=== PATIENT | female | born 1980 | race Caucasian/White ===

== ENCOUNTER 2017-07-25 19:30 | Emergency (ER) | payer MEDICAID, SELFPAY ==
[2017-07-25 19:31] VITALS: BP 135/93; PULSE 101; RESP 18; TEMP 35.7; O2SAT 97; BMI 40.9
--- NOTE | 2017-07-25 19:37 | EKG12_ITS ---
Test Reason : CHEST PAIN Blood Pressure : / mmHG Vent. Rate : 092 BPM Atrial Rate : 092 BPM P-R Int : 142 ms QRS Dur : 088 ms QT Int : 352 ms P-R-T Axes : 006 102 049 degrees QTc Int : 435 ms Normal sinus rhythm Normal ECG Confirmed by MARCIA BURT MD ([id number]), legal editor TERRA PAIZ ([id number]) on 07/29/2017 1:04:38 PM Referred By: LUNA Confirmed By:MARCIA BURT MD
--- NOTE | 2017-07-25 20:06 | NURSING ---
EKG IN TRIAGE, PULLED OLD EKG'S FOR
--- NOTE | 2017-07-25 20:21 | ED.RN ---
PT IS NOT IN WAITING AREA, BEING MARKED LWBS.
== END 2017-07-25 20:21 | disposition left against medical advice (07) ==
LOC: ED 20:31
PROVIDERS: Emergency Provider Emergency Medicine; Family Provider Family Medicine; PCP Family Medicine
DX: R69 Illness, unspecified (principal)
CPT/HCPCS: 93005

== ENCOUNTER 2017-10-08 20:26 | Emergency (ER) | payer MEDICAID, SELFPAY ==
[2017-10-08 20:26] VITALS: BP 147/98; PULSE 108; RESP 16; TEMP 36.8; O2SAT 96; BMI 40.8
--- NOTE | 2017-10-08 20:46 | RAD_ITS ---
STUDY: X-RAY - UNILATERAL RIBS ( LEFT ) WITH CHEST REASON FOR EXAM: Female, 37 years old. Fall. Left side chest pain TECHNIQUE - RIBS: 4 view(s) of the ribs. TECHNIQUE - CHEST: Single AP portable view of the chest. COMPARISON: None. FINDINGS - RIBS: Nondisplaced fractures of the anterior aspect of the left third and fourth ribs of undetermined age. FINDINGS - CHEST: The lungs are clear and expanded. There is no demonstrated pleural abnormality. Normal size heart. Normal mediastinum and kayden. Normal visualized pulmonary arteries. Normal visualized aortic arch and descending thoracic aorta. Normal visualized thoracic spine. Normal visualized ribs, clavicles, and shoulders. There is no demonstrated abnormality of the visualized soft tissue structures of the upper abdomen. RAD/Ribs Uni Min 3V w/PA Chest IMPRESSION: RIBS: Nondisplaced fractures of the anterior aspect of the left third and fourth ribs of undetermined age. CHEST: Normal x-ray examination of the chest. Electronically Signed: Kiet Jackson MD at 22:04 EDT Tel , Service support ,
[2017-10-08] MEDS: Lidocaine 5% Patch 1 PATCH TOPICAL (20:59)
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
[2017-10-08 22:33] VITALS: BP 144/97; PULSE 93; RESP 18; O2SAT 96
--- NOTE | 2017-10-08 22:33 | ED.RN ---
INSTRUCTED PT ON USE OF INCENTIVE SPIROMETER. PT ABLE TO DEMONSTRATE CORRECT USE OF INCENTIVE SPIROMETER. REVIEWED D/C INSTRUCTIONS, FOLLOW UP CARE, PRESCRIPTION, AND S/S THAT WOULD WARRANT A RETURN TO THE ED WITH PT. PT VERBALIZED AN UNDERSTANDING AND DENIES FURTHER QUESTIONS FOR THIS RN. PT SKIN P/W/D, RESP EVEN AND UNLABORED, PT A&O X 3, NO DISTRESS NOTED. PT AMBULATED OUT OF ED, GAIT STEADY.
== END 2017-10-08 22:35 | disposition home or self-care (01) ==
PROVIDERS: Emergency Provider Emergency Medicine; Family Provider Family Medicine; PCP Family Medicine
DX: S22.42XA Multiple fractures of ribs, left side, initial encounter for closed fracture (principal); W19.XXXA Unspecified fall, initial encounter; Y93.9 Activity, unspecified; Y92.9 Unspecified place or not applicable; E66.9 Obesity, unspecified; E11.9 Type 2 diabetes mellitus without complications; I10 Essential (primary) hypertension; M79.7 Fibromyalgia; Z79.4 Long term (current) use of insulin; Z79.84 Long term (current) use of oral hypoglycemic drugs; Z79.899 Other long term (current) drug therapy; Z72.0 Tobacco use
CPT/HCPCS: 71101; 99282

== ENCOUNTER 2017-12-06 17:39 | Emergency (ER) | payer MEDICAID, SELFPAY ==
[2017-12-06 17:39] VITALS: BP 167/107; PULSE 93; RESP 16; TEMP 36.2; O2SAT 98; BMI 41.5
[2017-12-06 17:55] LABS: Bedside Glucose 337 mg/dL (70-110)
--- NOTE | 2017-12-06 18:02 | ED.VISSUMM ---
- ER Visit Summary Date of Service: 12/06/17 Chief Complaint: Hyperglycemia History of Present Illness: The patient is a 37 F who presents with weakness and fatigue that has been getting worse throughout the day. Patient states this feels similar to prior episodes of hypoglycemia. Patient does not have a glucose monitor at home to check her blood sugar. Patient admits to a frontal headache. Patient admits to subjective fevers. Patient denies any chest pain or shortness of breath. Patient denies any dysuria, hematuria, or frequency. Patient denies any nausea or vomiting. Patient denies abdominal pain. Physical Examination: Vital signs are stable except for mildly elevated blood pressure 167/107. Patient is in no acute distress. Patient is afebrile. Oral mucosa is pink and moist. Neck is supple. Trachea is midline. There is no JVD noted. Heart was regular rate and rhythm. Lungs are clear and equal bilaterally. Abdomen is soft. Bowel sounds are normal. There is no tenderness. There is no rebound or guarding noted. Cranial nerves II through XII are intact. There are no focal motor or sensory deficits noted. The remaining physical exam is within normal limits. Test Results: Initial BGT was 337. Urinalysis showed 10-25 white blood cells with a leukocyte esterase of 500. There is 0-5 trichomonas on urinalysis. CBC was normal. Serum glucose was 323. Serum ketones were negative. Emergency Department Course and Treatment: Patient was given a dose of Humalog here. Patient was given a dose of Flagyl here. Patient was given prescription for Bactrim. Patient was instructed to follow-up with her primary care physician in 5-7 days. Patient understood and was agreeable with the plan. All questions were answered. Disposition: Discharge home Impression: Urinary tract infection This note was generated with [employer] dictation software. It may contain incorrect words, spelling, and punctuation that were not noted in review of the chart prior to signing ED Disposition - Plan for ED Patient: Disposition: Home or Assisted Living Chief Complaint: Hyperglycemia Diagnosis: Urinary tract infection, Hyperglycemia, Diabetes Instructions: ED Hyperglycemia Diabetic, ED UTI Cystitis Female Prescriptions: Smz/Tmp Ds [Bactrim Ds] 1 tab PO BID #6 tab Referrals: Eldon Hernandez MD [Primary Care Provider] -
[2017-12-06 18:26] LABS: Absolute Neutrophil Count 3.4 X10^3/uL (2.0-7.7); Basophil# 0.02 X10^3/uL; Basophil% 0.3 % (0-1); Eosinophil# 0.14 X10^3/uL; Eosinophils% 2.4 % (0-5); Hematocrit 39.4 % (37-47); Hemoglobin 13.7 g/dl (12.0-15.0); Lymphocyte % 32.6 % (19-41); Mean Corp Hgb Conc 34.8 g/gl (32-36); Mean Corpuscular Hgb 31.3 pg (27.0-32.0); Mean Platelet Vol. 9.6 fl (6.2-12.0); Monocyte# 0.37 X10^3/uL; Monocyte% 6.3 % (0-10); Neutrophil % 58.4 % (47-70); Platelet Count 212 K/mm3 (150-450); RBC Distribution Width CV 13.9 % (11.6-14.6); RBC Distribution Width SD 45.1 fl (35.1-43.9); Red Blood Count 4.38 M/mm3 (4.2-5.4); White Blood Count 5.8 K/mm3 (4.4-11.0)
[2017-12-06 18:37] LABS: Anion Gap 6 (5-15); BUN 7 mg/dL (7-18); BUN/Creat Ratio 10.2 RATIO (10-20); Calcium,Total 8.6 mg/dL (8.5-10.1); Chloride 106 mmol/L (98-107); Creatinine, Serum 0.69 mg/dL (0.55-1.02); EST Glomerular Filtration Rate 102 mL/min (>60); Est Glom Filt Rate - Afr Amer 123 mL/min (>60); Estimated Creatinine Clearance 100.45 ml/min; Glucose 323 mg/dL (74-106); Potassium 3.9 mmol/L (3.5-5.1); Sodium Level 139 mmol/L (136-145)
[2017-12-06 18:42] LABS: POSITIVE COUNT NO; POSITIVE DIFFERENTIAL NO; POSITIVE MORPHOLOGY NO
[2017-12-06 18:44] LABS: Bacteria 0 SEEN /hpf (None Seen); Mucous, Urine 0 SEEN /hpf (<or=2+); Red Blood Cells-Urine 0 SEEN /hpf (0-5)
[2017-12-06 18:49] LABS: Color, Urine Straw (Yellow); Glucose, Dipstick 1000 mg/dl (Normal); Ketone-Dipstick Negative (Negative); Leukocyte Esterase-Dipstick 500 /ul (Negative); Nitrite-Dipstick Negative (Negative); Occult Blood-Urine 10 /ul (Negative); Protein-Dipstick Negative (Negative); Urine Bilirubin Dipstick Negative (Negative); Urine Clarity Cloudy (Clear); Urine Urobilinogen Normal (Normal)
[2017-12-06 19:36] LABS: Squamous Epithelial Cells - UA 0-5 SEEN /hpf (5-10)
[2017-12-06 19:40] LABS: White Blood Cells 10-25 SEEN /hpf (0-5)
[2017-12-06 19:43] LABS: Trichomonas 0-5 SEEN /hpf (None Seen)
[2017-12-06] MEDS: Insulin Lispro 100 UNIT/ML INSULN.PEN SC (20:04)
[2017-12-06 20:36] LABS: Bedside Glucose 152 mg/dL (70-110)
[2017-12-06] MEDS: metroNIDAZOLE 500 MG Tablet 2000 MG PO (20:51)
[2017-12-06 20:54] VITALS: BP 160/95; PULSE 90; RESP 16; O2SAT 99
== END 2017-12-06 20:56 | disposition home or self-care (01) ==
PROVIDERS: Emergency Provider Emergency Medicine; Family Provider Family Medicine; PCP Family Medicine
DX: N39.0 Urinary tract infection, site not specified (principal); R51 Headache; E66.9 Obesity, unspecified; E11.9 Type 2 diabetes mellitus without complications; Z79.4 Long term (current) use of insulin; Z79.84 Long term (current) use of oral hypoglycemic drugs; Z72.0 Tobacco use
CPT/HCPCS: 80048; 81001; 82009; 82962; 85025; 96372; 99284; A4216

== ENCOUNTER 2017-12-17 04:44 | Emergency (ER) | payer MEDICAID, SELFPAY ==
[2017-12-17 04:46] VITALS: BP 149/90; PULSE 107; RESP 20; TEMP 36.8; O2SAT 97; BMI 40.6
--- NOTE | 2017-12-17 05:05 | ED.DCSUM_ITS ---
- ER Visit Summary Date of Service: 12/17/17 Chief Complaint: Back pain History of Present Illness: The patient is a 37 F with history of chronic back pain who presents for 2 days of right lower back pain. 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 Since then she is developed sharp left lower back pain that is worse with laying down and improves with standing. She has tried lidocaine patches and ibuprofen without relief. Pain is constant. She denies any fever, abdominal pain, nausea or vomiting, dysuria, hematuria, bowel or bladder incontinence or retention, or any other complaints. No numbness or weakness in the arms or legs. Patient has history of fibromyalgia and was in pain management up until 6 months ago for that. She has not had issues with her chronic back pain since receiving a nerve block in 2014. Physical Examination: Vital signs: afebrile, hemodynamically stable, no hypoxia on room air General: well nourished, well developed, morbidly obese, in no distress Skin: warm, dry, no rash, no pallor HEENT: normocephalic and atraumatic; PERRL, EOMI, moist mucous membranes Cardiovascular: regular rate and rhythm without murmurs, no peripheral edema, 2 + pulses all distal extremities Respiratory: No increased work of breathing, lungs are clear to auscultation bilaterally, no rales, rhonchi or wheezing Abdominal: Abdomen is soft, nontender with normoactive bowel sounds, no guarding or rebound, no masses MSK: Moves all extremities, no deformities, normal strength, redness to the paraspinal musculature in the right lumbar region, no midline tenderness, step- offs or deformities. No skin induration, erythema or swelling. Straight leg raise negative in the sitting position. Neuro: Awake and alert, oriented ?4. No facial droop, sensation and motor function intact and symmetric Test Results: [] Emergency Department Course and Treatment: Patient has no red flag symptoms concerning for cauda equina syndrome or emergent spinal pathology. She was witnessed ambulating without difficulty. Patient was given Norflex and Toradol in the emergency department and a prescription for Flexeril and naproxen. She will not use ibuprofen while on the naproxen. She is to follow-up with her primary care doctor if she is not having improvement in 1-2 weeks. Patient agreed with this plan and was discharged home. Treatment Plan: [] Disposition: [] Impression: Acute lumbar muscle strain This note was generated with [employer] dictation software. It may contain incorrect words, spelling, and punctuation that were not noted in review of the chart prior to signing ED Disposition - Plan for ED Patient: Disposition: Home or Assisted Living Chief Complaint: Back Instructions: ED Spasm Back No Trauma, ED Sprain Strain Lumbar Prescriptions: Naproxen [Naprosyn] 500 mg PO BID PRN #20 tab Cyclobenzaprine [Flexeril] 10 mg PO TID PRN #20 tab PRN Reason: Muscle Spasm Referrals: Eldon Hernandez MD [Primary Care Provider] - 10-14 Days if not better
[2017-12-17] MEDS: Ketorolac 60 MG/2 ML Vial IM (05:15)
[2017-12-17] MEDS: Orphenadrine 60 MG/2 ML Ampul IM (05:16)
[2017-12-17 05:33] VITALS: BP 164/116; PULSE 104; RESP 18; O2SAT 96
== END 2017-12-17 05:36 | disposition home or self-care (01) ==
PROVIDERS: Emergency Provider Emergency Medicine; Family Provider Family Medicine; PCP Family Medicine
DX: S39.012A Strain of muscle, fascia and tendon of lower back, initial encounter (principal); M54.5 Low back pain; G89.29 Other chronic pain; X58.XXXA Exposure to other specified factors, initial encounter; Y93.9 Activity, unspecified; Y92.9 Unspecified place or not applicable; E66.01 Morbid (severe) obesity due to excess calories; M79.7 Fibromyalgia; Z79.84 Long term (current) use of oral hypoglycemic drugs; Z79.4 Long term (current) use of insulin; Z72.0 Tobacco use
CPT/HCPCS: 96372; 99282

== ENCOUNTER 2018-01-18 23:24 | Emergency (ER) | payer MEDICAID, SELFPAY ==
[2018-01-18 23:25] VITALS: BP 166/91; PULSE 100; RESP 20; TEMP 36.9; O2SAT 94; BMI 43.2
[2018-01-18 23:43] VITALS: O2SAT 94
--- NOTE | 2018-01-19 00:16 | ED.VISSUMM ---
- ER Visit Summary Date of Service: 01/19/18 Chief Complaint: Cold History of Present Illness: The patient is a 37 F complains of cold symptoms for the past 8 days. She can planes of congestion rhinorrhea sore throat cough diarrhea shortness of breath. She is a smoker. She states she was seen at the urgent care 5 days ago and given steroids and cough syrup but just is not improving. She states that her chest and back are sore from coughing. Physical Examination: Heart rate 100 vitals otherwise unremarkable No distress able to speak in full sentences no increased work of breathing or retractions She does have some decreased air exchange and expiratory wheezing Heart is regular rate and rhythm Abdomen soft Alert Moist mucous membranes Clear voice, no trismus Test Results: Not indicated Emergency Department Course and Treatment: Patient presents with symptoms consistent with rhinosinusitis. Given persistent symptoms for 8 days I do feel antibiotics are potentially benefit. She will be placed on azithromycin. She understands to return for new or worsening symptoms. She was instructed on specific signs and symptoms to monitor for and will otherwise follow-up with her primary care physician. Treatment Plan: [] Disposition: Discharge Impression: Acute rhinosinusitis This note was generated with [employer] dictation software. It may contain incorrect words, spelling, and punctuation that were not noted in review of the chart prior to signing ED Disposition - Plan for ED Patient: Chief Complaint: Cold Sx Referrals: Eldon Hernandez MD [Primary Care Provider] -
--- NOTE | 2018-01-19 00:19 | ED.DEP ---
ED Disposition - Plan for ED Patient: Chief Complaint: Cold Sx Instructions: ED Upper Resp Infec Abx Tx Prescriptions: Azithromycin [Zithromax Z-Greg] 250 mg PO UD #1 box Referrals: Eldon Hernandez MD [Primary Care Provider] -
[2018-01-19] MEDS: Ipratropium/Albuterol Sulfate 3 ML AMPUL.NEB INHALATION (00:23)
[2018-01-19 00:24] VITALS: PULSE 105; RESP 18
== END 2018-01-19 00:37 | disposition home or self-care (01) ==
PROVIDERS: Emergency Provider Emergency Medicine; Family Provider Family Medicine; PCP Family Medicine
DX: J01.90 Acute sinusitis, unspecified (principal); R19.7 Diarrhea, unspecified; E11.9 Type 2 diabetes mellitus without complications; Z79.4 Long term (current) use of insulin; Z79.84 Long term (current) use of oral hypoglycemic drugs; F17.200 Nicotine dependence, unspecified, uncomplicated
CPT/HCPCS: 94640; 99282

== ENCOUNTER 2018-02-01 13:26 | Emergency (ER) | payer MEDICAID, SELFPAY ==
[2018-02-01 13:27] VITALS: BP 142/91; PULSE 118; RESP 14; TEMP 36.8; O2SAT 97; BMI 42.5
[2018-02-01 13:50] LABS: Bedside Glucose 351 mg/dL (70-110)
--- NOTE | 2018-02-01 13:56 | EKG12_ITS ---
Test Reason : CP Blood Pressure : / mmHG Vent. Rate : 109 BPM Atrial Rate : 109 BPM P-R Int : 140 ms QRS Dur : 090 ms QT Int : 342 ms P-R-T Axes : 054 073 033 degrees QTc Int : 460 ms Sinus tachycardia Otherwise normal ECG Confirmed by CARMEL MALDONADO, MARCIA ([id number]), web editor TERRA PAIZ ([id number]) on 02/06/2018 3:56:52 PM Referred By: ALLY Confirmed By:MARCIA BURT MD
[2018-02-01 14:12] VITALS: BP 123/71; PULSE 105; RESP 18; O2SAT 98
[2018-02-01] MEDS: 0.9% Normal Saline 1,000 ML 1000 ML IV (14:14)
[2018-02-01 14:25] LABS: Absolute Lymphocyte Count 2.14 X10^3/ul (0.83-4.51); Absolute Neutrophil Count 4.1 X10^3/uL (2.0-7.7); Basophil# 0.02 X10^3/uL; Basophil% 0.3 % (0-1); Eosinophils% 1.5 % (0-5); Hematocrit 40.3 % (37-47); Hemoglobin 13.9 g/dl (12.0-15.0); Lymphocyte # 2.14 X10^3/ul (4.0); Lymphocyte % 31.5 % (19-41); Mean Corp Hgb Conc 34.5 g/gl (32-36); Mean Corpuscular Hgb 31.3 pg (27.0-32.0); Mean Corpuscular Volume 90.8 fL (81-99); Mean Platelet Vol. 10.3 fl (6.2-12.0); Monocyte# 0.38 X10^3/uL; Monocyte% 5.6 % (0-10); Neutrophil # 4.14 X10^3/uL (2.7-7.7); POSITIVE COUNT NO; POSITIVE DIFFERENTIAL NO; POSITIVE MORPHOLOGY NO; Platelet Count 247 K/mm3 (150-450); Red Blood Count 4.44 M/mm3 (4.2-5.4); White Blood Count 6.8 K/mm3 (4.4-11.0)
--- NOTE | 2018-02-01 14:30 | RAD_ITS ---
STUDY: X-RAY CHEST REASON FOR EXAM: Female, 37 years old. Hyperglycemia. TECHNIQUE: PA and lateral views. COMPARISON: 10/08/2017 and 05/07/2016. FINDINGS: The lungs are clear and expanded. There is no demonstrated pleural abnormality. Normal size heart. Normal mediastinum and kayden. Normal visualized pulmonary arteries. Normal visualized aortic arch and descending thoracic aorta. Old compression fractures involving T9, T10, T11, T12 and L1 vertebral bodies. Normal visualized ribs, clavicles, and shoulders. There is no demonstrated abnormality of the visualized soft tissue structures of the upper abdomen. RAD/Chest PA and Lateral IMPRESSION: 1. No acute cardiopulmonary pathology. 2. Old compression fractures involving T9 down to L1 vertebral bodies. 3. No significant interval change when compared to 09/28/2017 and 05/07/2016. Electronically Signed: Joel Campbell MD at 14:52 EDT , Service support ,
[2018-02-01 14:43] LABS: ALB/GLOB Ratio 0.7 RATIO (0.9-2.4); AST(SGOT) 30 U/L (15-37); Alanine Aminotransfer ALT/SGPT 17 U/L (13-56); Albumin, Serum 2.9 g/dL (3.2-5.0); Alkaline Phosphatase 120 U/L (45-117); Anion Gap 7 (5-15); BUN 6 mg/dL (7-18); BUN/Creat Ratio 7.9 RATIO (10-20); Calcium,Total 8.6 mg/dL (8.5-10.1); Chloride 103 mmol/L (98-107); Creatinine, Serum 0.76 mg/dL (0.55-1.02); EST Glomerular Filtration Rate 91 mL/min (>60); Est Glom Filt Rate - Afr Amer 110 mL/min (>60); Globulin 4.3 g/dL (2.2-4.2); Glucose 319 mg/dL (74-106); Potassium 4.6 mmol/L (3.5-5.1); Protein, Total 7.2 g/dL (6.4-8.2); Sodium Level 134 mmol/L (136-145)
[2018-02-01 15:15] LABS: D-Dimer Quantitative (DVT/PE) 0.42 FEU/ug/m (0.27-0.49)
[2018-02-01 15:28] LABS: Mucous, Urine 0 SEEN /hpf (<or=2+)
[2018-02-01 15:33] LABS: Color, Urine Yellow (Yellow); Glucose, Dipstick 1000 mg/dl (Normal); Ketone-Dipstick Negative (Negative); Leukocyte Esterase-Dipstick 500 /ul (Negative); Nitrite-Dipstick Negative (Negative); Occult Blood-Urine 25 /ul (Negative); Protein-Dipstick 30 mg/dl (Negative); Urine Bilirubin Dipstick Negative (Negative); Urine Clarity Sl. Cloudy (Clear); Urine Urobilinogen Normal (Normal)
[2018-02-01 15:36] LABS: White Blood Cells 0-5 SEEN /hpf (0-5)
[2018-02-01 15:56] LABS: Red Blood Cells-Urine 5-10 SEEN /hpf (0-5)
[2018-02-01 15:57] LABS: Bacteria 1+ /hpf (None Seen); Squamous Epithelial Cells - UA 5-10 SEEN /hpf (5-10)
--- NOTE | 2018-02-01 16:02 | ED.VISSUMM ---
- ER Visit Summary Date of Service: 02/01/18 Chief Complaint: Hyperglycemia History of Present Illness: The patient is a 37 F who tells me that since noon today her blood sugar has been reading high she has a headache as well as some chest heaviness and sweats. States that 2 weeks ago she had a URI. She states the chest is heavy with occasional sharpness is generalized across the anterior chest. Recently had her metformin increased to 1000 mg twice a day as well as insulin increased to 20 units at night. She tells me that her blood sugar will typically run between 80 and 100. Though she notes that her last hemoglobin A1c was greater than 10. Today for lunch at [employer] she had mozzarella sticks amongst other past food items. Physical Examination: Afebrile vital signs are stable noted heart rate in triage 118 101 of my exam Gen: Well-nourished well-developed Head: Normocephalic atraumatic Eyes: Perrl EOMI ENT: TMs clear no rhinorrhea moist mucous membranes Neck: Supple no lymphadenopathy no JVD nontender CVS: Regular rate rhythm no murmurs normal S1-S2 Respiratory: No distress clear to auscultation bilaterally chest nontender Abdomen: Soft nontender nondistended normal bowel sounds no masses Back: Nontender Extremity: Nontender no edema Skin: Normal color no rash Neuro: alert orientated ?3 CN II-XII intact normal strength sensation reflexes gait cerebellar Psych: Normal affect normal mood Test Results: EKG sinus at a rate of 109 without ectopy. CBC chemistry showed a glucose of 319. Liver showed alk phos 120. Troponin negative. D-dimer negative. Urinalysis shows slight contamination but no overt infection. Emergency Department Course and Treatment: Patient received IV fluids and she is resting comfortably. She will be discharged home to follow-up with her doctor to adhere to diabetic diet. Impression: 1. Diabetic hyperglycemia 2. Medical noncompliance 3. Chest pain This note was generated with [employer] dictation software. It may contain incorrect words, spelling, and punctuation that were not noted in review of the chart prior to signing ED Disposition - Plan for ED Patient: Disposition: Home or Assisted Living Chief Complaint: Hyperglycemia Instructions: ED Hyperglycemia Diabetic Referrals: Eldon Hernandez MD [Primary Care Provider] - As soon as possible
--- NOTE | 2018-02-01 16:05 | ED.DCSUM_ITS ---
- ER Visit Summary Date of Service: 02/01/18 Chief Complaint: Hyperglycemia History of Present Illness: The patient is a 37 F who tells me that since noon today her blood sugar has been reading high she has a headache as well as some chest heaviness and sweats. States that 2 weeks ago she had a URI. She states the chest is heavy with occasional sharpness is generalized across the anterior chest. Recently had her metformin increased to 1000 mg twice a day as well as insulin increased to 20 units at night. She tells me that her blood sugar will typically run between 80 and 100. Though she notes that her last hemoglobin A1c was greater than 10. Today for lunch at [employer] she had mozzarella sticks amongst other past food items. Physical Examination: Afebrile vital signs are stable noted heart rate in triage 118 101 of my exam Gen: Well-nourished well-developed Head: Normocephalic atraumatic Eyes: Perrl EOMI ENT: TMs clear no rhinorrhea moist mucous membranes Neck: Supple no lymphadenopathy no JVD nontender CVS: Regular rate rhythm no murmurs normal S1-S2 Respiratory: No distress clear to auscultation bilaterally chest nontender Abdomen: Soft nontender nondistended normal bowel sounds no masses Back: Nontender Extremity: Nontender no edema Skin: Normal color no rash Neuro: alert orientated ?3 CN II-XII intact normal strength sensation reflexes gait cerebellar Psych: Normal affect normal mood Test Results: EKG sinus at a rate of 109 without ectopy. CBC chemistry showed a glucose of 319. Liver showed alk phos 120. Troponin negative. D-dimer negative. Urinalysis shows slight contamination but no overt infection. Emergency Department Course and Treatment: Patient received IV fluids and she is resting comfortably. She will be discharged home to follow-up with her doctor to adhere to diabetic diet. Impression: 1. Diabetic hyperglycemia 2. Medical noncompliance 3. Chest pain This note was generated with [employer] dictation software. It may contain incorrect words, spelling, and punctuation that were not noted in review of the chart prior to signing ED Disposition - Plan for ED Patient: Disposition: Home or Assisted Living Chief Complaint: Hyperglycemia Instructions: ED Hyperglycemia Diabetic Referrals: Eldon Hernandez MD [Primary Care Provider] - As soon as possible
[2018-02-01 16:17] VITALS: BP 119/56
== END 2018-02-01 16:19 | disposition home or self-care (01) ==
PROVIDERS: Emergency Provider Emergency Medicine; Family Provider Family Medicine; PCP Family Medicine
DX: E11.65 Type 2 diabetes mellitus with hyperglycemia (principal); R07.9 Chest pain, unspecified; R51 Headache; Z72.0 Tobacco use; Z91.14 Patient's other noncompliance with medication regimen; Z79.4 Long term (current) use of insulin; Z79.84 Long term (current) use of oral hypoglycemic drugs; Z79.899 Other long term (current) drug therapy
CPT/HCPCS: 71046; 80053; 81001; 82962; 84484; 85025; 85379; 93005; 96360; 96361; 99284; J7030; A4216

== ENCOUNTER 2018-05-13 19:52 | Emergency (ER) | payer MEDICAID, SELFPAY ==
[2018-05-13 19:53] VITALS: BP 106/89; PULSE 105; RESP 18; TEMP 37.2; O2SAT 97; BMI 42.9
--- NOTE | 2018-05-13 20:15 | RAD_ITS ---
STUDY: X-RAY CHEST REASON FOR EXAM: Female, 37 years old. Cough TECHNIQUE: Frontal and lateral views of the chest. COMPARISON: None. FINDINGS: There is an ill-defined groundglass opacity in the left lung base suggesting pneumonia in the lingula. There is no demonstrated pleural abnormality. Normal size heart. Normal mediastinum and kayden. Normal visualized pulmonary arteries. Normal visualized aortic arch and descending thoracic aorta. There is an increased kyphosis of the thoracic spine. Normal visualized ribs, clavicles, and shoulders. There is no demonstrated abnormality of the visualized soft tissue structures of the upper abdomen. RAD/Chest PA and Lateral IMPRESSION: Possible pneumonia in the lingula. Electronically Signed: Kiet Jackson MD at 22:20 EST Tel , Service support ,
[2018-05-13] MEDS: guaiFENesin 10 ML UDC (200MG/10ML) PO (20:20)
[2018-05-13] MEDS: Ondansetron ODT 4 MG Tablet PO ×2 (20:20→21:22)
[2018-05-13] MEDS: Naproxen 500 MG Tablet PO (20:20)
--- NOTE | 2018-05-13 21:05 | ED.DCSUM_ITS ---
- ER Visit Summary Date of Service: 05/13/18 Chief Complaint: Sore throat, cough History of Present Illness: The patient is a 37 F who woke yesterday morning not feeling well. She developed nausea, vomiting, and diarrhea during the day. Today she has had sore throat and cough with clear sputum. Her last dose of emesis was this morning. She still has some mild diarrhea. No fever has been noted. Her children were recently ill with viral syndrome type symptoms. Physical Examination: Vital signs unremarkable. Patient's lying in bed no acute distress. Head neck examination reveals TMs to be clear bilaterally. She does have 2+ tonsils. Uvula is midline without exudate. There is mild bilateral anterior cervical lymphadenopathy. Heart is regular rate and rhythm. Lung sounds are clear. Abdomen is soft nontender. Test Results: Rapid strep is negative. Two-view chest x-ray is normal per my review. Emergency Department Course and Treatment: Patient is given Naprosyn, Zofran, and Robitussin. On repeat evaluation she is resting comfortably. I did discuss with her that her symptoms are all viral in nature and simply need to run their course. She will be given a home pack of Zofran tonight if she develops recurrent vomiting. She can use Robitussin [id number]. Treatment Plan: [] Disposition: Discharge Impression: Viral syndrome This note was generated with [employer] dictation software. It may contain incorrect words, spelling, and punctuation that were not noted in review of the chart prior to signing ED Disposition - Plan for ED Patient: Chief Complaint: Sore Throat Referrals: Eldon Hernandez MD [Primary Care Provider] -
--- NOTE | 2018-05-13 21:05 | ED.DEP ---
ED Disposition - Plan for ED Patient: Disposition: Home or Assisted Living Chief Complaint: Sore Throat Instructions: ED Viral Syndrome Referrals: Eldon Hernandez MD [Primary Care Provider] - 3-5 Days if not improving
[2018-05-13 21:23] VITALS: BP 100/67; PULSE 91; RESP 18; O2SAT 97
--- OUTSIDE RECORDS SUMMARY | 2018-07-17 10:48 | XMS RPT_ITS ---
:1980 Author Organization OHIP Care Team Providers Name Role Phone ELDON ORTIZ Attending Unavailable Sonia ORTEGA (RINKUC) Referring Unavailable Sonia ORTEGA (PABartC) Attending Unavailable Sonia ORTEGA (RINKUC) Referring Unavailable ELDON ORTIZ Attending Unavailable Sonia ORTEGA (PABartC) Referring Unavailable NELI MIKE Attending Unavailable Sonia ORTEGA (PABartC) Attending Unavailable SILVIA MENJIVAR (CUSTOM SHOEMAKER) Attending Unavailable Sonia ORTEGA (PA-C) Attending Unavailable NELI MIKE Referring Unavailable Sonia ORTEGA (MIHAELA) Attending Unavailable Sonia ORTEGA (MIHAELA) Referring Unavailable Sonia ORTEGA (MIHAELA) Attending Unavailable Sonia ORTEGA (MIHAELA) Referring Unavailable [facility] Unavailable Isadora Hughes Attending Unavailable [facility] Unavailable ELISEO CARRASCO Attending Unavailable [facility] Unavailable Jovi Casarez Attending Unavailable [facility] Unavailable Flavio Kunz Attending Unavailable [facility] Unavailable Daja Moreno Attending Unavailable Daja Moreno Referring Unavailable [facility] Unavailable Jose Vee Attending Unavailable [facility] Unavailable Mal Gomez Attending Unavailable PROBLEMS PROBLEMS DATE TYPE CONDITION / CODE ATTENDING STATUS SOURCE 03/01/2018 Active Encounter for NA Active [facility] screening for [place] infections with a Repository predominantly sexual mode of transmission / Z11.3(ICD-10) 03/01/2018 Active Contact with and NA Active [facility] (suspected) [place] exposure to Repository unspecified communicable disease / Z20.9(ICD-10) 10/24/2017 Active 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 I, [place] unspecified / Repository G90.50(ICD-10) 01/12/2016 Active Morbid (severe) NA Active [facility] obesity due to [place] excess calories / Repository E66.01(ICD-10) 01/12/2016 Active Body mass index NA Active [facility] (bmi) 50-59.9 , [place] adult / Repository Z68.43(ICD-10) 10/24/2017 Active Discoid lupus NA Active [facility] erythematosus / [place] L93.0(ICD-10) Repository 08/10/2016 Active Type 2 diabetes NA Active [facility] mellitus with [place] hyperglycemia / Repository E11.65(ICD-10) 08/10/2016 Active 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 / [place] Z79.4(ICD-10) Repository 01/12/2016 Active Hyperlipidemia, NA Active [facility] unspecified / [place] E78.5(ICD-10) Repository 12/22/2014 Active Essential (primary) NA Active [facility] hypertension / [place] I10(ICD-10) Repository PROCEDURES PROCEDURES No Procedure Records FoundRESULTS RESULTS PROGRESS Observed: 05/17/2018 Status: COMPLETED Source: [place] 5:05 PM [facility] [place] REPOSITORY HNO ID: [id number] Author: Ines Ryan Service: (none) Author Type: Nurse Practitioner Type: Progress Notes Filed: 05/17/2018 5:32 PM Note Text: Subjective The history is provided by the patient. No foreign language teacher was used. HPI Ginger Arellano is a 37 year old female who presents today for CC of worsening cough and sore throat. She was seen in [facility] on 05/13 diagnosed with viral syndrome, with lower left lung infiltrate. Given albuterol and tesslon, saw Allyn CAMPUZANO, yesterday, and reassured was viral, no further treatment done - supportive care. Patient today is saying sore throat is worsening, and requesting repeat of strep and wants her lungs listened to. She is still smoking and he BS are still elevated. BP 132/84 Pulse 90 Temp 36.1 ?C (96.9 ?F) (Tympanic) Resp 16 Wt 112 kg (247 lb) SpO2 98% BMI 43.07 kg/m? 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 3 children one of whom lives with her. PAST MEDICAL HISTORY Diagnosis Date - Anxiety 12/29/2012 - Arrhythmia - Calculus of gallbladder with other cholecystitis, without mention of obstruction - Diabetes (HCC) - Hypertension I have confirmed and edited as necessary, the [facility] Review of Systems Constitutional: Negative for chills and fever. HENT: Positive for congestion (chest) and sore throat. Negative for ear pain and sinus pain. Respiratory: Positive for cough, shortness of breath and wheezing. Negative for sputum production. Musculoskeletal: Negative for myalgias. Neurological: Negative for headaches. Objective MDM: Due to worsening symptoms and uncontrolled diabetes, discuss with pcp Allyn Ortega, will start doxycycline Physical Exam Constitutional: She is well-developed, well-nourished, and in no distress. HENT: Head: Normocephalic and atraumatic. Right Ear: Tympanic membrane, external ear and ear canal normal. Left Ear: Tympanic membrane and ear canal normal. Nose: Mucosal edema and rhinorrhea present. Right sinus exhibits maxillary sinus tenderness and frontal sinus tenderness. Left sinus exhibits maxillary sinus tenderness and frontal sinus tenderness. Mouth/Throat: Uvula is midline, oropharynx is clear and moist and mucous membranes are normal. No oropharyngeal exudate, posterior oropharyngeal edema, posterior oropharyngeal erythema or tonsillar abscesses. Pulmonary/Chest: She has decreased breath sounds in the left lower field. She has no wheezes. She has no rhonchi. She has no rales. Lymphadenopathy: Head (right side): No submental, no submandibular and no tonsillar adenopathy present. Head (left side): No submental, no submandibular and no tonsillar adenopathy present. She has no cervical adenopathy. Neurological: She is alert. Skin: Skin is warm and dry. Psychiatric: Affect normal. Nursing note and vitals reviewed. ASSESSMENT/PLAN: 1. Lower respiratory infection - ICD9: 519.8, ICD10: J22 (primary diagnosis) Rest, oral fluids, tylenol or motrin as needed for pain or fever Doxycycline for infection please take as directed and finish the entire prescription unless instructed otherwise Smoke cessation Improving BS control Per Ron follow up in one week or go through open access if needs further treatment * Seek medical care immediately, call 911, go to ER if you have chest pain, difficulty breathing, shortness of breath, inability to swallow. - DOXYCYCLINE MONOHYDRATE 100 MG CAPSULE - ALBUTEROL SULFATE HFA 90 MCG/ACTUATION AEROSOL INHALER 2. Sore throat - ICD9: 462, ICD10: J02.9 - suspect viral - Rapid Strep negative in the office today - overnight throat culture pending and antibiotic as written - Discussed supportive care treatment with fluids, rest and analgesia. - The patient may also use warm salt water gargles, throat lozenges and/or OTC throat spray as needed. - The patient should follow up in one week if symptoms persist or worsen - Call back if drooling, increased temperature, symptoms of dehydration and/or still sick in one week - RAPID STREP TEST B/O Diagnosis and treatment plan were discussed and questions were answered to the patient's satisfaction. Pt acknowledged understanding of concepts and follow up plan. Specific signs and symptoms that would indicate the need for higher level of care were discussed in detail warranting prompt ER evaluation. Ines Ryan APRN.CNP CNOV Observed: 05/17/2018 Status: COMPLETED Source: [place] 4:45 PM [facility] REPOSITORY Office Visit (WSTR) GINGER ARELLANO ([id number]) 1980 F Date Time Provider Department 05/17/18 4:45 PM INES RYAN (LILA) [facility] During your visit today, we recorded the following information about you: Temperature Pulse Respiration Blood pressure 96.9 degrees 90/minute 16/minute 132/84 Weight 112 kg Ines Ryan APRN.CNP 05/17/2018 5:06 PM Addendum ASSESSMENT/PLAN: 1. Lower respiratory infection - ICD9: 519.8, ICD10: J22 (primary diagnosis) Rest, oral fluids, tylenol or motrin as needed for pain or fever Doxycycline for infection please take as directed and finish the entire prescription unless instructed otherwise Smoke cessation Improving BS control * Seek medical care immediately, call 911, go to ER if you have chest pain, difficulty breathing, shortness of breath, inability to swallow. - DOXYCYCLINE MONOHYDRATE 100 MG CAPSULE - ALBUTEROL SULFATE HFA 90 MCG/ACTUATION AEROSOL INHALER 2. Sore throat - ICD9: 462, ICD10: J02.9 - suspect viral - Rapid Strep negative in the office today - overnight throat culture pending and antibiotic as written - Discussed supportive care treatment with fluids, rest and analgesia. - The patient may also use warm salt water gargles, throat lozenges and/or OTC throat spray as needed. - The patient should follow up in one week if symptoms persist or worsen - Call back if drooling, increased temperature, symptoms of dehydration and/or still sick in one week - RAPID STREP TEST B/O Ines Ryan APRN.CNP 05/17/2018 5:32 PM Signed Subjective The history is provided by the patient. No foreign language teacher was used. HPI Ginger Arellano is a 37 year old female who presents today for CC of worsening cough and sore throat. She was seen in [facility] ED on 05/13 diagnosed with viral syndrome, with lower left lung infiltrate. Given albuterol and tesslon, saw Allyn CAMPUZANO, yesterday, and reassured was viral, no further treatment done - supportive care. Patient today is saying sore throat is worsening, and requesting repeat of strep and wants her lungs listened to. She is still smoking and he BS are still elevated. BP 132/84 Pulse 90 Temp 36.1 ?C (96.9 ?F) (Tympanic) Resp 16 Wt 112 kg (247 lb) SpO2 98% BMI 43.07 kg/m? 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 3 children one of whom lives with her. PAST MEDICAL HISTORY Diagnosis Date - Anxiety 12/29/2012 - Arrhythmia - Calculus of gallbladder with other cholecystitis, without mention of obstruction - Diabetes (HCC) - Hypertension I have confirmed and edited as necessary, the [facility] Review of Systems Constitutional: Negative for chills and fever. HENT: Positive for congestion (chest) and sore throat. Negative for ear pain and sinus pain. Respiratory: Positive for cough, shortness of breath and wheezing. Negative for sputum production. Musculoskeletal: Negative for myalgias. Neurological: Negative for headaches. Objective MDM: Due to worsening symptoms and uncontrolled diabetes, discuss with pcp Allyn Ortega, will start doxycycline Physical Exam Constitutional: She is well-developed, well-nourished, and in no distress. HENT: Head: Normocephalic and atraumatic. Right Ear: Tympanic membrane, external ear and ear canal normal. Left Ear: Tympanic membrane and ear canal normal. Nose: Mucosal edema and rhinorrhea present. Right sinus exhibits maxillary sinus tenderness and frontal sinus tenderness. Left sinus exhibits maxillary sinus tenderness and frontal sinus tenderness. Mouth/Throat: Uvula is midline, oropharynx is clear and moist and mucous membranes are normal. No oropharyngeal exudate, posterior oropharyngeal edema, posterior oropharyngeal erythema or tonsillar abscesses. Pulmonary/Chest: She has decreased breath sounds in the left lower field. She has no wheezes. She has no rhonchi. She has no rales. Lymphadenopathy: Head (right side): No submental, no submandibular and no tonsillar adenopathy present. Head (left side): No submental, no submandibular and no tonsillar adenopathy present. She has no cervical adenopathy. Neurological: She is alert. Skin: Skin is warm and dry. Psychiatric: Affect normal. Nursing note and vitals reviewed. ASSESSMENT/PLAN: 1. Lower respiratory infection - ICD9: 519.8, ICD10: J22 (primary diagnosis) Rest, oral fluids, tylenol or motrin as needed for pain or fever Doxycycline for infection please take as directed and finish the entire prescription unless instructed otherwise Smoke cessation Improving BS control Per Ron follow up in one week or go through open access if needs further treatment * Seek medical care immediately, call 911, go to ER if you have chest pain, difficulty breathing, shortness of breath, inability to swallow. - DOXYCYCLINE MONOHYDRATE 100 MG CAPSULE - ALBUTEROL SULFATE HFA 90 MCG/ACTUATION AEROSOL INHALER 2. Sore throat - ICD9: 462, ICD10: J02.9 - suspect viral - Rapid Strep negative in the office today - overnight throat culture pending and antibiotic as written - Discussed supportive care treatment with fluids, rest and analgesia. - The patient may also use warm salt water gargles, throat lozenges and/or OTC throat spray as needed. - The patient should follow up in one week if symptoms persist or worsen - Call back if drooling, increased temperature, symptoms of dehydration and/or still sick in one week - RAPID STREP TEST B/O Diagnosis and treatment plan were discussed and questions were answered to the patient's satisfaction. Pt acknowledged understanding of concepts and follow up plan. Specific signs and symptoms that would indicate the need for higher level of care were discussed in detail warranting prompt ER evaluation. Ines Ryan APRN.CUSTOM SHOEMAKER Referring Provider: SELF [[id number]] Allergies As of Date: 05/17/2018 Noted Allergy Reaction CATS 10/23/2009 4 - Hives 9 - Itching DUST 10/23/2009 Comments: environmental GRASS POLLEN 10/23/2009 9 - Itching CARDIZEM (DILTIAZEM) 07/25/2013 8 - GI Upset 11 - Vomiting PERCOCET (OXYCODONE-ACETAMINOPHEN)06/07/2016 11 - Vomiting ZYRTEC (CETIRIZINE HCL) 08/22/2013 4 - Hives Date Reviewed: 05/17/2018 Reviewed by: Ines (Bladder Trimmer) Shelby - Fully Assessed Reason for Visit: Chest Congestion [236] Cmt: cough, bilateral ear pain x 4 days and fever x today Primary Visit Diagnosis:Lower respiratory infection [J22] Other Visit Diagnosis:Sore throat [J02.9] Order(s):RAPID STREP TEST B/O [[id number]] Order #: [id number] doxycycline monohydrate (MONODOX) 100 mg capsuleTake 1 capsule by mouth twice daily for 10 days.Disp: 20 capsuleRfl: 0 albuterol HFA (PROAIR HFA) 90 mcg/actuation inhalerInhale 2 Puffs as instructed every 4 hours as needed.Disp: 1 InhalerRfl: 0 Prescriptions as of 05/17/2018 Sig: INSULIN GLARGINE (U-100) 100 * Inject 30 Units subcutaneousl* PROMETHAZINE-DM 6.25 MG-15 MG* Take 5 mL by mouth four times* TRIAMCINOLONE ACETONIDE 0.1 %* Apply 1 application to affect* CLOTRIMAZOLE 1 % TOPICAL CREAM Apply 1 application to affect* AMITRIPTYLINE 25 MG TABLET TAKE 1 TABLET BY MOUTH EVERYD* LANCETS Test blood sugar(s) two times* METFORMIN 500 MG TABLET Take 2 tablets by mouth twice* NYSTATIN 100,000 UNIT/GRAM TO* Apply 1 application to affect* PEN NEEDLE, DIABETIC 31 GAUGE* Daily injections LEVONORGESTREL 20 MCG/24 HR (* 1 Each by INTRAUTERINE route * DOXYCYCLINE MONOHYDRATE 100 M* Take 1 capsule by mouth twice* ALBUTEROL SULFATE HFA 90 MCG/* Inhale 2 Puffs as instructed * BLOOD SUGAR DIAGNOSTIC STRIPS Test blood sugar(s) 2 times d* Patient not taking: Reported on 05/16/2018 ALBUTEROL SULFATE HFA 90 MCG/* Inhale 2 Puffs as instructed * Patient not taking: Reported on 05/16/2018 Medication notes this encounter PROMETHAZINE-DM 6.25 MG-15 MG/5 ML ORAL SYRUP >> Ginger Quevedo Ma 05/17/2018 4:43 PM >> YOCASTA MENDESGINGER Jing May 17, 2018 4:43 PM just called in Problem List As Of Date 05/17/2018 Noted Resolved Essential hypertension [I10] INVALID FOR* Backache, unspecified [M54.9] INVALID FOR* Anxiety [F41.9] INVALID FOR* Brachial plexus lesions [G54.0] INVALID FOR* Chest pain, atypical [R07.89] INVALID FOR*06/07/2016 Uncontrolled type 2 diabetes mellitus without c*INVALID FOR* Pain in limb [M79.609] INVALID FOR*06/07/2016 Reflex sympathetic dystrophy [G90.50] INVALID FOR* Neuropathic pain [M79.2] INVALID FOR* RSD lower limb [G90.529] INVALID FOR* Lupus (HCC) [M32.9] INVALID FOR* More... Fibromyalgia [M79.7] INVALID FOR* Patellofemoral instability of both knees with p*INVALID FOR* Osteoarthritis of right knee [M17.11] INVALID FOR* Pain in right knee [M25.561] INVALID FOR* Dyslipidemia [E78.5] INVALID FOR* Morbid obesity with BMI of 50.0-59.9, adult (HC*INVALID FOR* Tobacco abuse [Z72.0] INVALID FOR* Primary osteoarthritis of right knee [M17.11] INVALID FOR* More... Chronic pain of right knee [M25.561, G89.29] INVALID FOR* More... Other instructions from your clinician: ASSESSMENT/PLAN: 1. Lower respiratory infection - ICD9: 519.8, ICD10: J22 (primary diagnosis) Rest, oral fluids, tylenol or motrin as needed for pain or fever Doxycycline for infection please take as directed and finish the entire prescription unless instructed otherwise Smoke cessation Improving BS control * Seek medical care immediately, call 911, go to ER if you have chest pain, difficulty breathing, shortness of breath, inability to swallow. - DOXYCYCLINE MONOHYDRATE 100 MG CAPSULE - ALBUTEROL SULFATE HFA 90 MCG/ACTUATION AEROSOL INHALER 2. Sore throat - ICD9: 462, ICD10: J02.9 - suspect viral - Rapid Strep negative in the office today - overnight throat culture pending and antibiotic as written - Discussed supportive care treatment with fluids, rest and analgesia. - The patient may also use warm salt water gargles, throat lozenges and/or OTC throat spray as needed. - The patient should follow up in one week if symptoms persist or worsen - Call back if drooling, increased temperature, symptoms of dehydration and/or still sick in one week - RAPID STREP TEST B/O Prescriptions ordered this encounter Disp Refills Start End DOXYCYCLINE MONOHYDRATE 100 MG CAPSU* 20 c* 0 05/17/2018 05/27/2018 Route: ORAL Sig: Take 1 capsule by mouth twice daily for 10 days. ALBUTEROL SULFATE HFA 90 MCG/ACTUATI* 1 In* 0 05/17/2018 Route: INHALATION Sig: Inhale 2 Puffs as instructed every 4 hours as needed. Encounter Status:Closed by INES RYAN CNP on 05/17/18 HEMOGLOBIN A1C Collected: 05/16/2018 Status: F Source: PERRY 12:57 PM [facility] REPOSITORY TYPE CODE TESTS RESULT OUT OF REFERENCE UNITS RANGE LAB HGBA1C 4.3-5.6 % High Hemoglobin A1c 9.5 Result Comment: [place] [employer] guidelines indicate that patients with HgbA1c in the range 5.7-6.4% are at increased risk for development of diabetes, and intervention by lifestyle modification may be beneficial. HgbA1c greater or equal to 6.5% is considered diagnostic of diabetes. LAB HBA0 mg/dL Est. Average Glucose 226 Result Comment: eAG: (Estimated average glucose) is a calculated value from HgbA1c and is medical service representative of the average blood glucose level in the last 2-3 month period. Performed By: #### HBA1C #### [facility] [address], [place] [address] PROGRESS Observed: 05/16/2018 Status: COMPLETED Source: PERRY 12:23 PM [facility] REPOSITORY HNO ID: [id number] Author: Sonia Mantilla (Mihaela) Jordan Service: (none) Author Type: Physician Clutch Specialist Type: Progress Notes Filed: 05/16/2018 2:44 PM Note Text: 37 year old female with c/o 4 days with nausea, vomiting, diarrhea at most emesis x 1 in the morning, at most 4 diarrhea stool watery to soft. No fever but chilling. Coughing white to clear mucus. A little wheezing. A little chest tightness. Hard to breath. HISTORIES FAMILY HISTORY Problem Relation Age of Onset - Heart Mother - Diabetes Mother - Hypertension Mother - Arthritis Mother - Heart Father - Arthritis Father - Cancer Maternal Grandmother stomach cancer. 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 3 children one of whom lives with her. 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 Dx: E11.65. Insulin: Yes Disp: 100 Each Rfl: 2 insulin glargine (BASAGLAR KWIKPEN U-100 INSULIN) 100 unit/mL (3 mL) inpn Inject 20 Units subcutaneously daily at bedtime. Disp: 7 Pen Rfl: 11 metFORMIN (GLUCOPHAGE) 500 mg tablet Take 2 tablets by mouth twice daily with meals. Disp: 120 tablet Rfl: 5 nystatin (NYSTOP) powder Apply 1 application to affected area four times daily. Disp: 1 Bottle Rfl: 3 Insulin [place], Disposable, (SURE-FINE PEN NEEDLES) 31 gauge x 3/16 ndle Daily injections Disp: 30 Each Rfl: 11 levonorgestrel (MIRENA) 20 mcg/24 hour (5 years) IUD 1 Each by INTRAUTERINE route continuous. Disp: Rfl: blood sugar diagnostic (BLOOD GLUCOSE TEST) test strip Test blood sugar(s) 2 times daily. Dx: Type 2 DM - Uncontrolled E11.65 Insulin: Yes (Patient not taking: Reported on 05/16/2018 ) Disp: 100 Strip Rfl: 11 albuterol HFA (PROAIR HFA) 90 mcg/actuation inhaler Inhale 2 Puffs as instructed every 4 hours as needed. (Patient not taking: Reported on 05/16/2018 ) Disp: 1 Inhaler Rfl: 0 No current facility-administered medications for this visit. ONE PNEUMOVAX PRIOR TO AGE 65 due on 1996 BP CONTROLLED (<130/80) due on 1998 DIABETIC FOOT EXAM due on 03/19/2017 INFLUENZA(1) due on 12/24/2017 HBA1C due on 01/24/2018 EXAM: BP 120/78 (BP Site: Left Arm, BP Position: Sitting, BP Cuff Size: Large Adult) Pulse 103 Temp (!) 35.8 ?C (96.4 ?F) (Tympanic) Resp 18 Wt 111.6 kg (246 lb) SpO2 96% BMI 42.89 kg/m? Pleasant obese adult woman in no acute distress. Alert and oriented all spheres. Normal affect and cognition. Speech normal. No deficits to learning or comprehension. Skin warm, dry, pink to lips and nailbeds. Normal turgor. Respirations regular and unlabored. HEENT WNL. Conjunctiva clear. MEREDITH. EOMI. TM's clear. Nose and oropharynx free from injection or lesion. Clear rhinorrhea. No cervical lymph nodes. Thyroid non-tender, no masses Chest CTA. HRRR without murmur or gallop. Extrem: no clubbing, cyanosis, edema. Extremities are warm and pink with prompt capillary refill. ASSESSMENT/PLAN: 1. Abnormal CXR - ICD9: 793.2, ICD10: R93.89 (primary diagnosis) Clinically no pneumonia: observation 2. Vomiting and diarrhea - ICD9: 787.03, 787.91, ICD10: R11.10, R19.7 Without signs of dehydration. - COMP METABOLIC PANEL 3. Acute upper respiratory infection - ICD9: 465.9, ICD10: J06.9 - Discussed viral etiology and rationale for treatment. - Symptomatic treatment with prn analgesia - Supportive care with fluids and rest 4. Uncontrolled type 2 diabetes mellitus without complication, with long-term current use of insulin (HCC) - ICD9: 250.02, V58.67, ICD10: E11.65, Z79.4 Controlled. uncontrolled - Continue current medications - HGB A1C - COMP METABOLIC PANEL 5. Tobacco abuse - ICD9: 305.1, ICD10: Z72.0 - Cessation encouraged. - Physiologic and physical aspects of tobacco addiction as well as strategies for quitting were discussed. - Counseling was given focusing on the harmful effects of this addiction especially given the patient's medical condition(s) which will be worsened because of the chemicals in tobacco. Sonia Ortega PA-C CNOV Observed: 05/16/2018 Status: COMPLETED Source: [facility] 12:20 PM [facility] REPOSITORY Office Visit (FAMPWS) GINGER ARELLANO ([id number]) 1980 F Date Time Provider Department 05/16/18 12:20 PM Sonia ORTEGA) FAMPWS During your visit today, we recorded the following information about you: Temperature Pulse Respiration Blood pressure 96.4 degrees 103/minute 18/minute 120/78 Weight 111.6 kg Sonia Ortega PA-C 05/16/2018 2:44 PM Signed 37 year old female with c/o 4 days with nausea, vomiting, diarrhea at most emesis x 1 in the morning, at most 4 diarrhea stool watery to soft. No fever but chilling. Coughing white to clear mucus. A little wheezing. A little chest tightness. Hard to breath. HISTORIES FAMILY HISTORY Problem Relation Age of Onset - Heart Mother - Diabetes Mother - Hypertension Mother - Arthritis Mother - Heart Father - Arthritis Father - Cancer Maternal Grandmother stomach cancer. 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 3 children one of whom lives with her. 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 Dx: E11.65. Insulin: Yes Disp: 100 Each Rfl: 2 insulin glargine (BASAGLAR KWIKPEN U-100 INSULIN) 100 unit/mL (3 mL) inpn Inject 20 Units subcutaneously daily at bedtime. Disp: 7 Pen Rfl: 11 metFORMIN (GLUCOPHAGE) 500 mg tablet Take 2 tablets by mouth twice daily with meals. Disp: 120 tablet Rfl: 5 nystatin (NYSTOP) powder Apply 1 application to affected area four times daily. Disp: 1 Bottle Rfl: 3 Insulin [place], Disposable, (SURE-FINE PEN NEEDLES) 31 gauge x 3/16 ndle Daily injections Disp: 30 Each Rfl: 11 levonorgestrel (MIRENA) 20 mcg/24 hour (5 years) IUD 1 Each by INTRAUTERINE route continuous. Disp: Rfl: blood sugar diagnostic (BLOOD GLUCOSE TEST) test strip Test blood sugar(s) 2 times daily. Dx: Type 2 DM - Uncontrolled E11.65 Insulin: Yes (Patient not taking: Reported on 05/16/2018 ) Disp: 100 Strip Rfl: 11 albuterol HFA (PROAIR HFA) 90 mcg/actuation inhaler Inhale 2 Puffs as instructed every 4 hours as needed. (Patient not taking: Reported on 05/16/2018 ) Disp: 1 Inhaler Rfl: 0 No current facility-administered medications for this visit. ONE PNEUMOVAX PRIOR TO AGE 65 due on 1996 BP CONTROLLED (<130/80) due on 1998 DIABETIC FOOT EXAM due on 03/19/2017 INFLUENZA(1) due on 12/24/2017 HBA1C due on 01/24/2018 EXAM: BP 120/78 (BP Site: Left Arm, BP Position: Sitting, BP Cuff Size: Large Adult) Pulse 103 Temp (!) 35.8 ?C (96.4 ?F) (Tympanic) Resp 18 Wt 111.6 kg (246 lb) SpO2 96% BMI 42.89 kg/m? Pleasant obese adult woman in no acute distress. Alert and oriented all spheres. Normal affect and cognition. Speech normal. No deficits to learning or comprehension. Skin warm, dry, pink to lips and nailbeds. Normal turgor. Respirations regular and unlabored. HEENT WNL. Conjunctiva clear. MEREDITH. EOMI. TM's clear. Nose and oropharynx free from injection or lesion. Clear rhinorrhea. No cervical lymph nodes. Thyroid non-tender, no masses Chest CTA. HRRR without murmur or gallop. Extrem: no clubbing, cyanosis, edema. Extremities are warm and pink with prompt capillary refill. ASSESSMENT/PLAN: 1. Abnormal CXR - ICD9: 793.2, ICD10: R93.89 (primary diagnosis) Clinically no pneumonia: observation 2. Vomiting and diarrhea - ICD9: 787.03, 787.91, ICD10: R11.10, R19.7 Without signs of dehydration. - COMP METABOLIC PANEL 3. Acute upper respiratory infection - ICD9: 465.9, ICD10: J06.9 - Discussed viral etiology and rationale for treatment. - Symptomatic treatment with prn analgesia - Supportive care with fluids and rest 4. Uncontrolled type 2 diabetes mellitus without complication, with long-term current use of insulin (HCC) - ICD9: 250.02, V58.67, ICD10: E11.65, Z79.4 Controlled. uncontrolled - Continue current medications - HGB A1C - COMP METABOLIC PANEL 5. Tobacco abuse - ICD9: 305.1, ICD10: Z72.0 - Cessation encouraged. - Physiologic and physical aspects of tobacco addiction as well as strategies for quitting were discussed. - Counseling was given focusing on the harmful effects of this addiction especially given the patient's medical condition(s) which will be worsened because of the chemicals in tobacco. MIHAELA Chan PA-C 05/16/2018 12:38 PM Signed Get plenty of rest. Force fluids daily with water and juices. Nasal saline spray may help to keep nose open and moist: 2- 3 squirts each side every few hours. This also help to rinse out virus and bacteria causing infection. Cool mist humidifier in room during sleep. May use OTC Tylenol or Ibuprofen as direct for discomfort. For sore throat, warm salt water gargles, Chlorseptic spray, lozenges or other OTC sore throat remedies may help. Decongestants such as plain Sudafed or with expectorant such as Mucinex D may help with nasal stuffiness or facial and sinus pressure. Generics are fine. These are over the counter but require an adult signature. Oxymetolazine nasal decongestants (Afrin, Dristan, Moses's) may also help (in place of oral decongestants) but should not be used longer than 48-72 hours due to potential rebound congestion. OTC antihistamines such Benadryl (make cause drowsiness) or Zyrtec/ Clariten/ Cari (non-drowsy) may help watery nasal drainage though they are generally not recommended because they dry mucus and make it sticky. The flow of mucus is important to help your body rid the virus. If cough keeps you awake at night, try OTC remedies first, such as Nyquil, Delsym, Moses's 44 or Mucinex DM. If this doesn't help you sleep, call the office for a prescription. Be careful if you are combining cough and cold medications that you aren't doubling the medicines. If you aren't sure: ask the pharmacist for help. Cough or sneeze into your sleeve to prevent spread of infected secretions. Wash your hands frequently. Try not to cough or sneeze on surfaces others might touch. If symptoms fail to improve in 5-7 days, fever > 100.5F, general worsening, or other concerning symptoms, return to [facility] or Jose Rafael Ortega PA-C. Stomach Flu (Viral Gastroenteritis) What is stomach flu? Stomach flu is a viral infection that affects the stomach and small intestine. It is also called viral gastroenteritis. The illness is usually brief, lasting 1 to 3 days, but may have intermittent symptoms up to a few weeks. How does it occur? Many different viruses can cause gastroenteritis, including rotaviruses, adenoviruses, and the White Swan virus. Gastroenteritis is caused by swallowing one of these viruses. The body fluids of infected people contain the virus, sometimes even before their symptoms begin. The virus can be spread by direct contact with an infected person (for example, kissing or shaking hands) or by sharing food, drink, or eating utensils. The virus enters the stomach and intestine and inflames the lining of these organs. As a result, the stomach and intestine are temporarily unable to perform their usual functions. The virus can also cause food to move more rapidly through your gastrointestinal (GI) tract. Some bacteria, parasites, medicines, or other medical conditions can cause infections that have symptoms similar to those of stomach flu. If your symptoms are unusually severe or last longer than a few days, your health care provider can determine if the diarrhea is caused by a virus or by something else. What are the symptoms? When you have stomach flu, you may have one or more of the following symptoms: nausea vomiting stomach cramps diarrhea mild fever fatigue chills loss of appetite muscle aches. The illness may develop over a period of hours, or it may suddenly start with stomach cramps, vomiting, or diarrhea. How is it diagnosed? Your health care provider will review your symptoms. He or she may examine you and order lab tests to rule out more serious illnesses, such as appendicitis, and to detect complications, such as dehydration. How is it treated? The most important thing to do is to rest the stomach and intestines. You can do this by first eating nothing solid and drinking only clear liquids. A little later you can eat soft bland foods that are easy to digest. If you have been vomiting a lot, it is best to have only small, frequent sips of liquids. Drinking too much at once, even an ounce or two, may cause more vomiting. Start with small sips (1 tbsp) of clear liquids every 10-15 min, including water, ice, popsicles, jello, etc. This will keep you from becoming dehydrated. Once tolerating sips for 3-4 hours without vomiting, may increase to larger amounts of clear liquids. Your choice of liquids is important. If water is the only liquid you can drink without vomiting, that is okay. However, if you have been vomiting often for a long time, you must replace the minerals, sodium and potassium, that are lost when you vomit. Sports drinks are generally good sources for fluid and electrolyte replacement for adults. Pedialye, ricelyte, or World Health Organization Replacement Fluids are better for smaller children or babies. Other clear liquids you can drink are weak tea and apple juice. You may also drink soft drinks without caffeine (such as 7-UP) after letting them go flat (lose their carbonation). Chilling the liquids may help you keep them down. Avoid liquids that are acidic (such as orange juice) or caffeinated (such as coffee) or have a lot of carbonation. Do not drink milk until you have gone a few days without diarrhea. You may start eating soft bland foods when you have not vomited for several hours and are able to drink clear liquids without further upset. Soda crackers, toast, plain noodles, gelatin, eggs, applesauce, and bananas are good first choices. Avoid foods that are acidic, spicy, fatty, or fibrous (such as meats, coarse grains, vegetables). Also avoid dairy products. You may start eating these foods again in 3 days or so, when all signs of illness have passed. Sometimes treatment includes prescription medicine to prevent nausea and vomiting or diarrhea. Nonprescription medicine, such as Immodium AD, is available for the treatment of diarrhea and can be very effective. If you use it, make sure you use only the dose recommended on the package. If you have chronic health problems, always check with your health care provider before you use any medicine for diarrhea. If your vomiting or diarrhea persists for more than three days without improvement, please call the office. It is not uncommon for symptoms to improve for a few days and then reoccur for another day or two within a two to three week period. If symptoms persist longer, or is excessive, you may need to have an exam to rule out more serious problems and to check for dehydration. You may also need to have lab tests to determine whether bacteria or germs such as giardia are causing your illness. Dehydration is a potentially serious complication of stomach flu. It can occur if your body loses too much fluid because you keep vomiting or having diarrhea. If you are severely dehydrated, you may need to be given fluids intravenously (IV). In children and older adults, dehydration can quickly become life threatening. Signs of dehydration include dry mouth, sunken eyes, dizziness onstanding or moving, diminished urine or tears, and extreme weakness or lethargy. If you or your child have these symtpoms, please go to the emergency room for immediate attention and intravenous hydratiom. How long do the effects last? Stomach flu rarely lasts longer than 1 to 3 days. However, it may be 1 to 2 weeks before your bowel habits return completely to normal. Again, it is not uncommon to be better for a few days or evena week, and then have another day or two of symptoms. How can I take care of myself? Rest your stomach and intestines by following the guidelines above, but make sure you prevent dehydration by drinking enough liquids. Drink just small amounts often during the vomiting phase of your illness. Do not take aspirin, ibuprofen, or other NSAIDS without checking first with your health care provider. Call the office if: Your symptoms are getting worse. You continue to have severe symptoms for more than 2 or 3 days, or you are just not getting better after a few days. You develop symptoms that are not usually caused by stomach flu, such as blood in your vomit, bloody diarrhea, or severe abdominal pain. What can I do to help prevent stomach flu? The single, most helpful way to prevent the spread of stomach flu is frequent, thorough hand washing. Also, avoid contact with the body fluids of an infected person, including saliva. Don't share food with someone who has stomach flu. Published by [employer]. This content is reviewed periodically and is subject to change as new health information becomes available. The information is intended to inform and educate and is not a replacement for medical evaluation, advice, diagnosis or treatment by a healthcare professional. Developed by [employer]. Copyright ? 2005 [employer] and/or one of its subsidiaries. All Rights Reserved. Referring Provider: SELF [200] Allergies As of Date: 05/16/2018 Noted Allergy Reaction CATS 10/23/2009 4 - Hives 9 - Itching DUST 10/23/2009 Comments: environmental GRASS POLLEN 10/23/2009 9 - Itching CARDIZEM (DILTIAZEM) 07/25/2013 8 - GI Upset 11 - Vomiting PERCOCET (OXYCODONE-ACETAMINOPHEN)06/07/2016 11 - Vomiting ZYRTEC (CETIRIZINE HCL) 08/22/2013 4 - Hives Date Reviewed: 05/16/2018 Reviewed by: Preeti Sousa LPN - Fully Assessed Reason for Visit: Follow Up [171] Cmt: [facility] 05/13/18 for cough Nausea [70] Cmt: AND diarrhea Reason For Visit History Recorded Primary Visit Diagnosis:Abnormal CXR [R93.89] Other Visit Diagnoses:Vomiting and diarrhea [R11.10, R19.7] Acute upper respiratory infection [J06.9] Uncontrolled type 2 diabetes mellitus without complication, with long-term current use of insulin (HCC) [E11.65, Z79.4] Tobacco abuse [Z72.0] Order(s):HGB A1C [[id number]] Order #: [id number] FUTURE COMP METABOLIC PANEL [SQCMP] Order #: [id number] FUTURE triamcinolone acetonide (KENALOG) 0.1 % creamApply 1 application to affected area twice daily.Disp: 30 gRfl: 1 clotrimazole (LOTRIMIN, CLOTRIM) 1 % creamApply 1 application to affected area twice daily.Disp: 30 gRfl: 1 Prescriptions as of 05/16/2018 Sig: AMITRIPTYLINE 25 MG TABLET TAKE 1 TABLET BY MOUTH EVERYD* LANCETS Test blood sugar(s) two times* INSULIN GLARGINE (U-100) 100 * Inject 20 Units subcutaneousl* METFORMIN 500 MG TABLET Take 2 tablets by mouth twice* NYSTATIN 100,000 UNIT/GRAM TO* Apply 1 application to affect* PEN NEEDLE, DIABETIC 31 GAUGE* Daily injections LEVONORGESTREL 20 MCG/24 HR (* 1 Each by INTRAUTERINE route * TRIAMCINOLONE ACETONIDE 0.1 %* Apply 1 application to affect* CLOTRIMAZOLE 1 % TOPICAL CREAM Apply 1 application to affect* BLOOD SUGAR DIAGNOSTIC STRIPS Test blood sugar(s) 2 times d* Patient not taking: Reported on 05/16/2018 ALBUTEROL SULFATE HFA 90 MCG/* Inhale 2 Puffs as instructed * Patient not taking: Reported on 05/16/2018 Problem List As Of Date 05/16/2018 Noted Resolved Essential hypertension [I10] INVALID FOR* Backache, unspecified [M54.9] INVALID FOR* Anxiety [F41.9] INVALID FOR* Brachial plexus lesions [G54.0] INVALID FOR* Chest pain, atypical [R07.89] INVALID FOR*06/07/2016 Uncontrolled type 2 diabetes mellitus without c*INVALID FOR* Pain in limb [M79.609] INVALID FOR*06/07/2016 Reflex sympathetic dystrophy [G90.50] INVALID FOR* Neuropathic pain [M79.2] INVALID FOR* RSD lower limb [G90.529] INVALID FOR* Lupus (HCC) [M32.9] INVALID FOR* More... Fibromyalgia [M79.7] INVALID FOR* Patellofemoral instability of both knees with p*INVALID FOR* Osteoarthritis of right knee [M17.11] INVALID FOR* Pain in right knee [M25.561] INVALID FOR* Dyslipidemia [E78.5] INVALID FOR* Morbid obesity with BMI of 50.0-59.9, adult (HC*INVALID FOR* Tobacco abuse [Z72.0] INVALID FOR* Primary osteoarthritis of right knee [M17.11] INVALID FOR* More... Chronic pain of right knee [M25.561, G89.29] INVALID FOR* More... Other instructions from your clinician: Get plenty of rest. Force fluids daily with water and juices. Nasal saline spray may help to keep nose open and moist: 2-3 squirts each side every few hours. This also help to rinse out virus and bacteria causing infection. Cool mist humidifier in room during sleep. May use OTC Tylenol or Ibuprofen as direct for discomfort. For sore throat, warm salt water gargles, Chlorseptic spray, lozenges or other OTC sore throat remedies may help. Decongestants such as plain Sudafed or with expectorant such as Mucinex D may help with nasal stuffiness or facial and sinus pressure. Generics are fine. These are over the counter but require an adult signature. Oxymetolazine nasal decongestants (Afrin, Dristan, Moses's) may also help (in place of oral decongestants) but should not be used longer than 48-72 hours due to potential rebound congestion. OTC antihistamines such Benadryl (make cause drowsiness) or Zyrtec/ Clariten/ Cari (non-drowsy) may help watery nasal drainage though they are generally not recommended because they dry mucus and make it sticky. The flow of mucus is important to help your body rid the virus. If cough keeps you awake at night, try OTC remedies first, such as Nyquil, Delsym, Moses's 44 or Mucinex DM. If this doesn't help you sleep, call the office for a prescription. Be careful if you are combining cough and cold medications that you aren't doubling the medicines. If you aren't sure: ask the pharmacist for help. Cough or sneeze into your sleeve to prevent spread of infected secretions. Wash your hands frequently. Try not to cough or sneeze on surfaces others might touch. If symptoms fail to improve in 5-7 days, fever > 100.5F, general worsening, or other concerning symptoms, return to [facility] or Jose Rafael Ortega PA-C. Stomach Flu (Viral Gastroenteritis) What is stomach flu? Stomach flu is a viral infection that affects the stomach and small intestine. It is also called viral gastroenteritis. The illness is usually brief, lasting 1 to 3 days, but may have intermittent symptoms up to a few weeks. How does it occur? Many different viruses can cause gastroenteritis, including rotaviruses, adenoviruses, and the White Swan virus. Gastroenteritis is caused by swallowing one of these viruses. The body fluids of infected people contain the virus, sometimes even before their symptoms begin. The virus can be spread by direct contact with an infected person (for example, kissing or shaking hands) or by sharing food, drink, or eating utensils. The virus enters the stomach and intestine and inflames the lining of these organs. As a result, the stomach and intestine are temporarily unable to perform their usual functions. The virus can also cause food to move more rapidly through your gastrointestinal (GI) tract. Some bacteria, parasites, medicines, or other medical conditions can cause infections that have symptoms similar to those of stomach flu. If your symptoms are unusually severe or last longer than a few days, your health care provider can determine if the diarrhea is caused by a virus or by something else. What are the symptoms? When you have stomach flu, you may have one or more of the following symptoms: nausea vomiting stomach cramps diarrhea mild fever fatigue chills loss of appetite muscle aches. The illness may develop over a period of hours, or it may suddenly start with stomach cramps, vomiting, or diarrhea. How is it diagnosed? Your health care provider will review your symptoms. He or she may examine you and order lab tests to rule out more serious illnesses, such as appendicitis, and to detect complications, such as dehydration. How is it treated? The most important thing to do is to rest the stomach and intestines. You can do this by first eating nothing solid and drinking only clear liquids. A little later you can eat soft bland foods that are easy to digest. If you have been vomiting a lot, it is best to have only small, frequent sips of liquids. Drinking too much at once, even an ounce or two, may cause more vomiting. Start with small sips (1 tbsp) of clear liquids every 10-15 min, including water, ice, popsicles, jello, etc. This will keep you from becoming dehydrated. Once tolerating sips for 3-4 hours without vomiting, may increase to larger amounts of clear liquids. Your choice of liquids is important. If water is the only liquid you can drink without vomiting, that is okay. However, if you have been vomiting often for a long time, you must replace the minerals, sodium and potassium, that are lost when you vomit. Sports drinks are generally good sources for fluid and electrolyte replacement for adults. Pedialye, ricelyte, or World Health Organization Replacement Fluids are better for smaller children or babies. Other clear liquids you can drink are weak tea and apple juice. You may also drink soft drinks without caffeine (such as 7-UP) after letting them go flat (lose their carbonation). Chilling the liquids may help you keep them down. Avoid liquids that are acidic (such as orange juice) or caffeinated (such as coffee) or have a lot of carbonation. Do not drink milk until you have gone a few days without diarrhea. You may start eating soft bland foods when you have not vomited for several hours and are able to drink clear liquids without further upset. Soda crackers, toast, plain noodles, gelatin, eggs, applesauce, and bananas are good first choices. Avoid foods that are acidic, spicy, fatty, or fibrous (such as meats, coarse grains, vegetables). Also avoid dairy products. You may start eating these foods again in 3 days or so, when all signs of illness have passed. Sometimes treatment includes prescription medicine to prevent nausea and vomiting or diarrhea. Nonprescription medicine, such as Immodium AD, is available for the treatment of diarrhea and can be very effective. If you use it, make sure you use only the dose recommended on the package. If you have chronic health problems, always check with your health care provider before you use any medicine for diarrhea. If your vomiting or diarrhea persists for more than three days without improvement, please call the office. It is not uncommon for symptoms to improve for a few days and then reoccur for another day or two within a two to three week period. If symptoms persist longer, or is excessive, you may need to have an exam to rule out more serious problems and to check for dehydration. You may also need to have lab tests to determine whether bacteria or germs such as giardia are causing your illness. Dehydration is a potentially serious complication of stomach flu. It can occur if your body loses too much fluid because you keep vomiting or having diarrhea. If you are severely dehydrated, you may need to be given fluids intravenously (IV). In children and older adults, dehydration can quickly become life threatening. Signs of dehydration include dry mouth, sunken eyes, dizziness onstanding or moving, diminished urine or tears, and extreme weakness or lethargy. If you or your child have these symtpoms, please go to the emergency room for immediate attention and intravenous hydratiom. How long do the effects last? Stomach flu rarely lasts longer than 1 to 3 days. However, it may be 1 to 2 weeks before your bowel habits return completely to normal. Again, it is not uncommon to be better for a few days or evena week, and then have another day or two of symptoms. How can I take care of myself? Rest your stomach and intestines by following the guidelines above, but make sure you prevent dehydration by drinking enough liquids. Drink just small amounts often during the vomiting phase of your illness. Do not take aspirin, ibuprofen, or other NSAIDS without checking first with your health care provider. Call the office if: Your symptoms are getting worse. You continue to have severe symptoms for more than 2 or 3 days, or you are just not getting better after a few days. You develop symptoms that are not usually caused by stomach flu, such as blood in your vomit, bloody diarrhea, or severe abdominal pain. What can I do to help prevent stomach flu? The single, most helpful way to prevent the spread of stomach flu is frequent, thorough hand washing. Also, avoid contact with the body fluids of an infected person, including saliva. Don't share food with someone who has stomach flu. ----- Published by [employer]. This content is reviewed periodically and is subject to change as new health information becomes available. The information is intended to inform and educate and is not a replacement for medical evaluation, advice, diagnosis or treatment by a healthcare professional. Developed by [employer]. Copyright ? 2005 [employer] and/or one of its subsidiaries. All Rights Reserved. Prescriptions ordered this encounter Disp Refills Start End TRIAMCINOLONE ACETONIDE 0.1 % TOPICA* 30 g 1 05/16/2018 Route: TOPICAL Sig: Apply 1 application to affected area twice daily. CLOTRIMAZOLE 1 % TOPICAL CREAM 30 g 1 05/16/2018 Route: TOPICAL Sig: Apply 1 application to affected area twice daily. Encounter Status:Closed by Sonia ORTEGA PA-C on 05/16/18 EMERGENCY DEPARTMENT Observed: 05/13/2018 Status: F Source: [place] SUMMARY 9:59 PM [facility] Medical Records Department [address] [place] [address] Emergency Department Summary 05/13/182102 MR#: [id number] Acct: [id number] Name: GINGER ARELLANO Rep #: [id number] : 1980 37 From: Isadora Hughes MD PCP: Eldon Ortiz MD Status: DEP ER - ER Visit Summary Date of Service: 05/13/18 Chief Complaint: Sore throat, cough History of Present Illness: The patient is a 37 F who woke yesterday morning not feeling well. She developed nausea, vomiting, and diarrhea during the day. Today she has had sore throat and cough with clear sputum. Her last dose of emesis was this morning. She still has some mild diarrhea. No fever has been noted. Her children were recently ill with viral syndrome type symptoms. Physical Examination: Vital signs unremarkable. Patient's lying in bed no acute distress. Head neck examination reveals TMs to be clear bilaterally. She does have 2+ tonsils. Uvula is midline without exudate. There is mild bilateral anterior cervical lymphadenopathy. Heart is regular rate and rhythm. Lung sounds are clear. Abdomen is soft nontender. Test Results: Rapid strep is negative. Two-view chest x-ray is normal per my review. Emergency Department Course and Treatment: Patient is given Naprosyn, Zofran, and Robitussin. On repeat evaluation she is resting comfortably. I did discuss with her that her symptoms are all viral in nature and simply need to run their course. She will be given a home pack of Zofran tonight if she develops recurrent vomiting. She can use Robitussin [id number]. Treatment Plan: [] Disposition: Discharge Impression: Viral syndrome This note was generated with [employer] dictation software. It may contain incorrect words, spelling, and punctuation that were not noted in review of the chart prior to signing ED Disposition - Plan for ED Patient: Chief Complaint: Sore Throat Referrals: Eldon Ortiz MD [Primary Care Provider] - What to do if you have Problems For any increased pain, shortness of breath, bleeding, nausea or vomiting, chest pain, or any unexpected problems, contact your Primary Care Provider. Call [facility] ([phone]) or report to the closest Emergency Room. Call 911 if necessary. 05/13/182158 <Electronically signed by Isadora Hughes MD> Date Isadora Hughes MD Cosigner Signature (If Indicated): Date CC: Eldon Ortiz MD DISCHARGE INSTRUCTION Observed: 05/13/2018 Status: F Source: ANNI 9:07 PM [facility] Medical Records Department [address] [place] [address] Discharge Instruction 05/13/185 MR#: [id number] Acct: [id number] Name: GINGER ARELLANO Rep #: [id number] : 1980 37 From: Isadora Hughes MD PCP: Eldon Ortiz MD Status: REG ER ED Disposition - Plan for ED Patient: Disposition: Home or Assisted Living Chief Complaint: Sore Throat Instructions: ED Viral Syndrome Referrals: Eldon Ortiz MD [Primary Care Provider] - 3-5 Days if not improving What to do if you have Problems For any increased pain, shortness of breath, bleeding, nausea or vomiting, chest pain, or any unexpected problems, contact your Primary Care Provider. Call [facility] ([phone]) or report to the closest Emergency Room. Call 911 if necessary. 05/13/18 210 <Electronically signed by Isadora Hughes MD> Date Isadora Hughes MD Cosigner Signature (If Indicated): Date CC: Eldon Ortiz MD CHEST PA AND LATERAL Observed: 05/13/2018 Status: F Source: SARD[place] 8:15 PM [facility] Imaging Services [address] [place], [place] [address] [address] Chest PA and Lateral MR#: [id number] Acct: [id number] Name: GINGER ARELLANO Rep #: [id number] : 1980 F 37 From: Kiet Jackson MD PCP: Eldon Ortiz MD Status: DEP ER Study: Chest PA and Lateral Date of Exam: 05/13/18 Exam# [id number] Ordering Dr: Isadora Hughes MD STUDY: X-RAY CHEST REASON FOR EXAM: Female, 37 years old. Cough TECHNIQUE: Frontal and lateral views of the chest. COMPARISON: None. FINDINGS: There is an ill-defined groundglass opacity in the left lung base suggesting pneumonia in the lingula. There is no demonstrated pleural abnormality. Normal size heart. Normal mediastinum and kayden. Normal visualized pulmonary arteries. Normal visualized aortic arch and descending thoracic aorta. There is an increased kyphosis of the thoracic spine. Normal visualized ribs, clavicles, and shoulders. There is no demonstrated abnormality of the visualized soft tissue structures of the upper abdomen. RAD/Chest PA and Lateral IMPRESSION: Possible pneumonia in the lingula. Electronically Signed: Kiet Jackson MD at 22:20 EST Tel , Service support , CC: Isadora Hughes MD; Eldon Ortiz MD Mapping Supervisor: Signed Observed: 05/13/2018 Status: F Source: [place] STREP A (THROAT 8:10 PM [facility]) REPOSITORY Strep A Rapid Rapid Strep A Screen NEGATIVE A Disk (Conf. Cult) Beta Hemolytic Strep NOT Group A : All NEGATIVE screens will be confirmed with a culture. ORGANISM 1: Streptococcus group C Performed By: #### [id number] #### [facility] [address] [place], [address] HIV 12 COMBO (AG/AB) Collected: 03/01/2018 Status: F Source: PERRY 2:11 PM [facility] REPOSITORY TYPE CODE TESTS RESULT OUT OF REFERENCE UNITS RANGE LAB HVAGAB Non Reactive HIV Non Reactive 12 Ag/Ab Result Comment: (NOTE) HIV Information: [place] Rev. Code 3701.243(E): This information has been disclosed to you from confidential records protected from disclosure by state law. You shall make no further disclosure of this information without the specific, written, and informed release of the individual to whom it pertains, or as otherwise permitted by state law. A general authorization for the release of medical or other information is not sufficient for the purpose of the release of HIV test results or diagnoses. Performed By: #### HIV12C #### [facility] [address] [place] [address] Observed: 02/07/2018 Status: F Source: PERRY BACT/CAND VAG GRM ST 3:17 PM [facility] REPOSITORY Sp. Request/Comment: - Swab Smear Result - BACTERIAL VAGINOSIS RESULT: Stain results consistent with bacterial vaginosis. --> ABNORMAL ALERT No Yeast observed Performed By: #### BVCNSM #### [facility] [address] [place] [id number] HPV W/GENOTYPE Collected: 02/07/2018 Status: F Source: [place] [id number] [facility] REPOSITORY TYPE CODE TESTS RESULT OUT OF REFERENCE UNITS RANGE LAB HPVT16 HPV HighRisk Negative for Type 16 HPV DNA high risk type 16 by PCR. LAB HPVT18 HPV HighRisk Negative for Type 18 HPV DNA high risk type 18 by PCR. LAB HPVHRO HPV HighRisk Negative for Other HPV DNA high risk types: 31,33,35,39,45 ,51,52,56,58,5 9,66,68 by PCR. Result Comment: This test was developed and its performance characteristics determined by [facility] [place] ([facility]). It has not been cleared or approved by the FDA. [facility] is regulated under CLIA as qualified to perform high-complexity testing. This test is used for clinical purposes. It should not be regarded as inv estigational or for research. Performed By: #### HPVHRR #### [facility] [address] [place], [place] [address] CYTOLOGY Observed: 02/07/2018 Status: C Source: PERRY 2:50 [facility] REPOSITORY ADDITIONAL PROCEDURES PRESENT ---Abnormal Pap Test - Epithelial Cell Abnormality--- Specimen originated from [facility] Specimen #: [id number] Submitting Physician: SILVIA MENJIVAR SPECIMEN SUBMITTED A: CERVICAL, SCREENING, FLUID FINAL DIAGNOSIS A. CERVICAL, SCREENING, FLUID Satisfactory for interpretation. Epithelial cell abnormality. Atypical squamous cells of undetermined significance (ASC-US). Trichomonas vaginalis. Predominance of coccobacilli consistent with shift in vaginal raymundo. This specimen has been analyzed by the ThinPrep Imaging System, an automated imaging and review system, which assists the laboratory in evaluating cells on ThinPrep Pap tests. Following automated imaging, selected burnette from every slide are reviewed by a inspector machined parts. Thania Durbin MD (Electronic Signature) ADDITIONAL PROCEDURE(S) HUMAN PAPILLOMA VIRUS Date Ordered: 02/09/2018 Date Reported: 02/10/2018 Procedure Results and Interpretation Negative for HPV DNA high risk type 16 by PCR. Negative for HPV DNA high risk type 18 by PCR. Negative for HPV DNA high risk types: 31,33,35,39,45,51,52,56,58,59,66,68 by PCR. This test was developed and its performance characteristics determined by [facility] [place] ([facility]). It has not been cleared or approved by the FDA. [facility] is regulated under CLIA as qualified to perform high-complexity testing. This test is used for clinical purposes. It should not be regarded as investigational or for research. CLINICAL DATA ROUTINE EXAM, HPV Testing: Yes, automatic HPV patients over 30 Date of Last Menstrual Period: IUD STAINS A: CERVICAL, SCREENING, FLUID THIN PREP MEDICAL RECORD ASSISTANT Date of Report: 02/17/2018 Date of Procedure: 02/07/2018 Date of Receipt: 02/09/2018 Submitted by: SILVIA MENJIVAR Location: [facility] Diagnostic interpretation performed at [facility], [address] [place] [address]. The Pap Smear is a screening test for cervical cancer. False negative results occur with all screening tests, emphasizing the need for rescreening at recommended intervals, and clinical correlation. CNOV Observed: 02/07/2018 Status: COMPLETED Source: PERRY 2:45 PM [facility] Office Visit (WOOB) GINGER ARELLANO ([id number]) 1980 F Date Time Provider Department 02/07/18 2:45 PM SILVIA MENJIVAR (CUSTOM SHOEMAKER) WOOB During your visit today, we recorded the following information about you: Blood pressure Weight Height 120/80 115 kg 1.613 m Silvia Menjivar APRN.CNP 02/07/2018 3:12 PM Signed Ginger Arellano is a 37 year old who presents for her annual gynecologic exam with complaints, vaginal itching and vulvar irritation. Menses: Random periods w/ IUD but light Contraception: IUD HPV vaccine: N/A Last Pap: 2012 normal HPV: N/A History of abnormal pap: Yes Last mammogram: never Sexually active: Yes Pain with intercourse: Yes Postcoital bleeding: No Vaginal dryness: Yes Obstetric History T3 L3 SAB0 TAB0 Ectopic0 Multiple0 Live Births0 PAST MEDICAL HISTORY Diagnosis Date - Anxiety 12/29/2012 - Arrhythmia - Calculus of gallbladder with other cholecystitis, without mention of obstruction - Diabetes (HCC) - Hypertension PAST SURGICAL HISTORY Procedure Laterality Date - DELIVERY ONLY , low transverse x2 - INSERTION OF IUD 03/09/2013 - LAP CHOLECYSTOENTEROSTOMY 10/04/08 - LAPAROSCOPIC CHOLEYCYSTECTOMY 10/03/08 - LIGATE FALLOPIAN TUBE Tubal ligation FAMILY HISTORY Problem Relation Age of Onset - Heart Mother - Diabetes Mother - Hypertension Mother - Arthritis Mother - Heart Father - Arthritis Father - Cancer Maternal Grandmother stomach cancer. SOCIAL HISTORY Social History Substance Use Topics - Smoking status: Current Every Day Smoker Packs/day: 2.00 Years: 20.00 Types: Cigarettes - Smokeless tobacco: Never Used - Alcohol use Yes Comment: occ REVIEW OF SYSTEMS Abdomen: No abdominal pain, nausea, vomiting, diarrhea, or constipation. No bloating, early satiety, indigestion, or increased flatulence. Bladder: No dysuria, gross hematuria, urinary frequency, urinary urgency, or incontinence. Breast: No breast lumps, nipple d/c, overlying skin changes, redness or skin retraction. Allergies and current medication updated:Yes EXAM: Ht 5' 3.5 (1.61m) Wt 253 lb 9.6 oz (115.0kg) BMI 44.21 kg/(m2). GENERAL: pleasant, female in no apparent distress HEENT: Normocephalic, atraumatic, mucus membranes moist and no lesions NECK: Supple, full range of motion, no adenopathy and thyroid normal DERMATOLOGY: Normal, without lesions, non-icteric and non-hirsute BREAST: soft, non-tender, symmetric, no dominant mass, normal nipple-areolar complex, no lymphadenopathy and no nipple discharge CHEST: Normal inspiratory effort ABDOMEN: soft, non-tender and no masses PELVIC: external genitalia normal, normal Bartholin's glands, urethra, [place]'s glands, no vulvar lesions, no cervical lesions, good vaginal support, physiologic discharge present, normal appearing perineal body and perianal region, +vaginal vault red and inflammed BIMANUAL: uterus normal size, shape and consistency, no adnexal masses and Mild tenderness RECTOVAGINAL: deferred. NEURO: alert and oriented x3,exam grossly non-focal EXTREMITIES: normal ASSESSMENT/PLAN: 1) Health maintenance: Pap done with HPV. Mammogram starting age 40. Nutrition, exercise and routine health maintenance exams reviewed. Calcium/Vitamin D supplementation information provided. 2) Contraception: IUD and tubal ligation. Contraceptive options reviewed and information provided. 3) STD screening: Declined STD check. 4) Follow up one year or sooner as needed 5) BVC sent- will call with result- if needed will use vaginal gel Silvia Menjivar APRN.CUSTOM SHOEMAKER Referring Provider: SELF [[id number]] Allergies As of Date: 02/07/2018 Noted Allergy Reaction CATS 10/23/2009 4 - Hives 9 - Itching DUST 10/23/2009 Comments: environmental GRASS POLLEN 10/23/2009 9 - Itching CARDIZEM (DILTIAZEM) 07/25/2013 8 - GI Upset 11 - Vomiting PERCOCET (OXYCODONE-ACETAMINOPHEN)06/07/2016 11 - Vomiting ZYRTEC (CETIRIZINE HCL) 08/22/2013 4 - Hives Date Reviewed: 02/07/2018 Reviewed by: Silvia Bustillos) [place] - Fully Assessed Reason for Visit: Yearly Exam [187] Primary Visit Diagnosis:Encounter for gynecological examination (general) (routine) without abnormal findings [Z01.419] Other Visit Diagnoses:Screening for cervical cancer [Z12.4] Encounter for screening for human papillomavirus (HPV) [Z11.51] Vaginal irritation [N89.8] Order(s):PAP FLUID CERVICAL SCREENING [[id number]] Order #: [id number] BACT/LORENZO VAG GRAM STAIN [SQBVCNSM] Order #: [id number] FUTURE Prescriptions as of 02/07/2018 Sig: AMITRIPTYLINE 25 MG TABLET TAKE 1 TABLET BY MOUTH EVERYD* LANCETS Test blood sugar(s) two times* BLOOD SUGAR DIAGNOSTIC STRIPS Test blood sugar(s) 2 times d* INSULIN GLARGINE (U-100) 100 * Inject 20 Units subcutaneousl* METFORMIN 500 MG TABLET Take 2 tablets by mouth twice* ALBUTEROL SULFATE HFA 90 MCG/* Inhale 2 Puffs as instructed * NYSTATIN 100,000 UNIT/GRAM TO* Apply 1 application to affect* PEN NEEDLE, DIABETIC 31 GAUGE* Daily injections LEVONORGESTREL 20 MCG/24 HR (* 1 Each by INTRAUTERINE route * Problem List As Of Date 02/07/2018 Noted Resolved Essential hypertension [I10] INVALID FOR* Backache, unspecified [M54.9] INVALID FOR* Anxiety [F41.9] INVALID FOR* Brachial plexus lesions [G54.0] INVALID FOR* Chest pain, atypical [R07.89] INVALID FOR*06/07/2016 Uncontrolled type 2 diabetes mellitus without c*INVALID FOR* Pain in limb [M79.609] INVALID FOR*06/07/2016 Reflex sympathetic dystrophy [G90.50] INVALID FOR* Neuropathic pain [M79.2] INVALID FOR* RSD lower limb [G90.529] INVALID FOR* Lupus (HCC) [L93.0] INVALID FOR* More... Fibromyalgia [M79.7] INVALID FOR* Patellofemoral instability of both knees with p*INVALID FOR* Osteoarthritis of right knee [M17.11] INVALID FOR* Pain in right knee [M25.561] INVALID FOR* Dyslipidemia [E78.5] INVALID FOR* Morbid obesity with BMI of 50.0-59.9, adult (HC*INVALID FOR* Tobacco abuse [Z72.0] INVALID FOR* Primary osteoarthritis of right knee [M17.11] INVALID FOR* More... Chronic pain of right knee [M25.561, G89.29] INVALID FOR* More... Medications Discontinued During This Encounter mometasone (ELOCON) 0.1 % cream 45 g 0 07/18/2017 02/07/2018 Route: TOPICAL Sig: Apply 1 application to affected area once daily. Patient not taking: Reported on 02/07/2018 Disc: Reason for discontinue is not on file. Disposition: Return in 1 year (on 02/07/2019) for Annual Exam. Follow-up and Disposition History Recorded Encounter Status:Closed by SILVIA MENJIVAR on 02/07/18 PROGRESS Observed: 02/07/2018 Status: COMPLETED Source: [place] 2:35 PM [facility] [place] REPOSITORY HNO ID: [id number] Author: Silvia Bustillos) [place] Service: (none) Author Type: Nurse Practitioner Type: Progress Notes Filed: 02/07/2018 3:12 PM Note Text: Ginger Arellano is a 37 year old who presents for her annual gynecologic exam with complaints, vaginal itching and vulvar irritation. Menses: Random periods w/ IUD but light Contraception: IUD HPV vaccine: N/A Last Pap: 2012 normal HPV: N/A History of abnormal pap: Yes Last mammogram: never Sexually active: Yes Pain with intercourse: Yes Postcoital bleeding: No Vaginal dryness: Yes Obstetric History T3 L3 SAB0 TAB0 Ectopic0 Multiple0 Live Births0 PAST MEDICAL HISTORY Diagnosis Date - Anxiety 12/29/2012 - Arrhythmia - Calculus of gallbladder with other cholecystitis, without mention of obstruction - Diabetes (HCC) - Hypertension PAST SURGICAL HISTORY Procedure Laterality Date - DELIVERY ONLY , low transverse x2 - INSERTION OF IUD 03/09/2013 - LAP CHOLECYSTOENTEROSTOMY 10/04/08 - LAPAROSCOPIC CHOLEYCYSTECTOMY 10/03/08 - LIGATE FALLOPIAN TUBE Tubal ligation FAMILY HISTORY Problem Relation Age of Onset - Heart Mother - Diabetes Mother - Hypertension Mother - Arthritis Mother - Heart Father - Arthritis Father - Cancer Maternal Grandmother stomach cancer. SOCIAL HISTORY Social History Substance Use Topics - Smoking status: Current Every Day Smoker Packs/day: 2.00 Years: 20.00 Types: Cigarettes - Smokeless tobacco: Never Used - Alcohol use Yes Comment: occ REVIEW OF SYSTEMS Abdomen: No abdominal pain, nausea, vomiting, diarrhea, or constipation. No bloating, early satiety, indigestion, or increased flatulence. Bladder: No dysuria, gross hematuria, urinary frequency, urinary urgency, or incontinence. Breast: No breast lumps, nipple d/c, overlying skin changes, redness or skin retraction. Allergies and current medication updated:Yes EXAM: Ht 5' 3.5 (1.61m) Wt 253 lb 9.6 oz (115.0kg) BMI 44.21 kg/(m2). GENERAL: pleasant, female in no apparent distress HEENT: Normocephalic, atraumatic, mucus membranes moist and no lesions NECK: Supple, full range of motion, no adenopathy and thyroid normal DERMATOLOGY: Normal, without lesions, non-icteric and non-hirsute BREAST: soft, non-tender, symmetric, no dominant mass, normal nipple-areolar complex, no lymphadenopathy and no nipple discharge CHEST: Normal inspiratory effort ABDOMEN: soft, non-tender and no masses PELVIC: external genitalia normal, normal Bartholin's glands, urethra, [place]'s glands, no vulvar lesions, no cervical lesions, good vaginal support, physiologic discharge present, normal appearing perineal body and perianal region, +vaginal vault red and inflammed BIMANUAL: uterus normal size, shape and consistency, no adnexal masses and Mild tenderness RECTOVAGINAL: deferred. NEURO: alert and oriented x3,exam grossly non-focal EXTREMITIES: normal ASSESSMENT/PLAN: 1) Health maintenance: Pap done with HPV. Mammogram starting age 40. Nutrition, exercise and routine health maintenance exams reviewed. Calcium/Vitamin D supplementation information provided. 2) Contraception: IUD and tubal ligation. Contraceptive options reviewed and information provided. 3) STD screening: Declined STD check. 4) Follow up one year or sooner as needed 5) BVC sent- will call with result- if needed will use vaginal gel Silvia Menjivar APRN.CUSTOM SHOEMAKER 12 LEAD ELECTROCARDIOGRAM Observed: 02/06/2018 Status: F Source: [place] 3:57 PM [facility] Cardiovascular Services [address] [place] [address] 12 Lead EKG 02/01/18 1333 MR#: [id number] Acct: [id number] Name: GINGER ARELLANO Rep #: [id number] : 1980 37 From: Gus Coburn MD Attending Dr: Status: DEP ER Ordering Dr: Mal Gomez DO Date: 02/01/18 Location: ED Sex: F C Admitted: Test Reason : CP Blood Pressure : / mmHG Vent. Rate : 109 BPM Atrial Rate : 109 BPM P-R Int : 140 ms QRS Dur : 090 ms QT Int : 342 ms P-R-T Axes : 054 073 033 degrees QTc Int : 460 ms Sinus tachycardia Otherwise normal ECG Confirmed by GUS COBURN MD ([id number]), primer expeditor and drier TERRA PAIZ ([id number]) on 02/06/2018 3:56:52 PM Referred By: ALLY Confirmed By:GUS COBURN MD 02/06/18 1556 Date Gus Coburn MD CC: Mal Gomez DO; Eldon Ortiz MD Signed EMERGENCY DEPARTMENT Observed: 02/02/2018 Status: F Source: [place] SUMMARY 8:38 AM [facility] Medical Records Department [address] [place] [address] Emergency Department Summary 02/01/18 1602 MR#: [id number] Acct: [id number] Name: GINGER ARELLANO Rep #: [id number] : 1980 37 From: Mal Gomez DO PCP: Eldon Ortiz MD Status: DEP ER - ER Visit Summary Date of Service: 02/01/18 Chief Complaint: Hyperglycemia History of Present Illness: The patient is a 37 F who tells me that since noon today her blood sugar has been reading high she has a headache as well as some chest heaviness and sweats. States that 2 weeks ago she had a URI. She states the chest is heavy with occasional sharpness is generalized across the anterior chest. Recently had her metformin increased to 1000 mg twice a day as well as insulin increased to 20 units at night. She tells me that her blood sugar will typically run between 80 and 100. Though she notes that her last hemoglobin A1c was greater than 10. Today for lunch at [employer] she had mozzarella sticks amongst other past food items. Physical Examination: Afebrile vital signs are stable noted heart rate in triage 118 101 of my exam Gen: Well-nourished well-developed Head: Normocephalic atraumatic Eyes: Perrl EOMI ENT: TMs clear no rhinorrhea moist mucous membranes Neck: Supple no lymphadenopathy no JVD nontender CVS: Regular rate rhythm no murmurs normal S1-S2 Respiratory: No distress clear to auscultation bilaterally chest nontender Abdomen: Soft nontender nondistended normal bowel sounds no masses Back: Nontender Extremity: Nontender no edema Skin: Normal color no rash Neuro: alert orientated 3 CN II-XII intact normal strength sensation reflexes gait cerebellar Psych: Normal affect normal mood Test Results: EKG sinus at a rate of 109 without ectopy. CBC chemistry showed a glucose of 319. Liver showed alk phos 120. Troponin negative. D-dimer negative. Urinalysis shows slight contamination but no overt infection. Emergency Department Course and Treatment: Patient received IV fluids and she is resting comfortably. She will be discharged home to follow-up with her doctor to adhere to diabetic diet. Impression: 1. Diabetic hyperglycemia 2. Medical noncompliance 3. Chest pain This note was generated with [employer] dictation software. It may contain incorrect words, spelling, and punctuation that were not noted in review of the chart prior to signing ED Disposition - Plan for ED Patient: Disposition: Home or Assisted Living Chief Complaint: Hyperglycemia Instructions: ED Hyperglycemia Diabetic Referrals: Eldon Ortiz MD [Primary Care Provider] - As soon as possible What to do if you have Problems For any increased pain, shortness of breath, bleeding, nausea or vomiting, chest pain, or any unexpected problems, contact your Primary Care Provider. Call [facility] ([phone]) or report to the closest Emergency Room. Call 911 if necessary. 02/02/18 0838 <Electronically signed by Mal Gomez DO> Date Mal Gomez DO Cosigner Signature (If Indicated): Date CC: Eldon Ortiz MD URINALYSIS, COMPLETE Collected: 02/01/2018 Status: F Source: ANNI 3:20 PM [facility] Order Comment: Order Date: 02/01/18 Has pt arrived? Y How was Urine Obtained? CLEAN CATCH TYPE CODE TESTS RESULT OUT OF RANGE REFERENCE UNITS LAB L400.3000 Yellow COLOR Normal Yellow LAB L400.3050 Clear Normal CLARITY Sl. Cloudy LAB L400.3200 Normal mg/dl High GLUCOSE, UR 1000 LAB L400.3300 Negative mg/dL Normal BILIRUBIN URINE Negative LAB L400.3400 Negative mg/dl Normal KETONE UR Negative LAB L400.3465 1.002-1.030 Normal SP.GR. DIPSTX 1.020 LAB L400.3550 5.0 - 8.0 pH UR Normal 5.0 LAB L400.3600 Negative mg/dl High PROT 30 DIPSTX LAB L400.3700 Normal mg/dl Normal UROBILI Normal LAB L400.3750 Negative Normal NITRITE UR Negative LAB L400.3780 Negative /ul High 25 OCCULT BLOOD-UR LAB L400.3800 Negative /ul High LEUK ESTERASE 500 LAB L400.4050 0-5 /hpf WBC Normal 0-5 SEEN LAB L400.4100 0-5 /hpf Normal RBC-UA 5-10 SEEN Result Comment: AMENDED REPORT 02/01/18 3252 RBC-UA previously reported as: 0-5 SEEN /hpf LAB L400.4150 5-10 /hpf Normal SQUAM EPI 5-10 SEEN Result Comment: AMENDED REPORT 02/01/181556 SQUAM EPI previously reported as: 0-5 SEEN /hpf LAB L400.4300 None Seen /hpf Normal BACTERIA 1+ Result Comment: AMENDED REPORT 02/01/181556 BACTERIA previously reported as: 4+ /hpf LAB L400.4350 <or=2+ /hpf Normal MUCUS, URINE 0 SEEN Performed By: #### L400.0001 #### [facility] [address] [place], [place], [id number] CBC W/DIFF, AUTOMATED Collected: 02/01/2018 Status: F Source: [place] 2:15 PM [facility] TYPE CODE TESTS RESULT OUT OF RANGE REFERENCE UNITS LAB L100.1000 4.4-11.0 K/mm3 Normal WBC 6.8 LAB L100.1200 4.2-5.4 M/mm3 Normal RBC 4.44 LAB L100.1300 12.0-15.0 g/dl Normal HGB 13.9 LAB L100.1400 37-47 % Normal HCT 40.3 LAB L100.1500 81-99 fL Normal MCV 90.8 LAB L100.1600 27.0-32.0 pg Normal MCH 31.3 LAB L100.1700 32-36 g/gl Normal MCHC 34.5 LAB L100.1810 11.6-14.6 % Normal RDW CV 14.0 LAB L100.1820 35.1-43.9 fl High RDW SD 46.0 LAB L100.1900 150-450 K/mm3 Normal PLT 247 LAB L100.2000 6.2-12.0 fl Normal MPV 10.3 LAB L100.2100 47-70 % Normal NEUT% 61.0 LAB L100.2200 19-41 % Normal LY% 31.5 LAB L100.2300 0-10 % Normal MONO% 5.6 LAB L100.2400 0-5 % Normal EO% 1.5 LAB L100.2500 0-1 % Normal BASO% 0.3 LAB L100.2550 0.0-0.9 % Normal IM GRAN % 0.100 Result Comment: IG% - Immature Granulocytes (promyelocytes, myelocytes and metamyelocytes) > 1% indicates that a LEFT SHIFT is Present. LAB L100.2620 2.0-7.7 X10 3/uL Normal Absolute Neut 4.1 LAB L100.2720 0.83-4.51 X10 3/ul Normal Absolute Lymph 2.14 Performed By: #### L100.0100 #### [facility] [address] [place], [place], [address] COMPREHENSIVE METABOLIC Collected: 02/01/2018 Status: F Source: ANNI QUIJANO 2:15 PM [facility] TYPE CODE TESTS RESULT OUT OF RANGE REFERENCE UNITS LAB L501.0100 74-106 mg/dL High GLU 319 Result Comment: Glucose result greater than or equal to 200 mg/dL suggests DIABETES MELLITUS per A.D.A. criteria. Please note revised GLUCOSE reference range effective 2017. LAB L501.1000 7-18 mg/dL Low BUN 6 LAB L501.1100 0.55-1.02 mg/dL Normal CREAT,SERUM 0.76 Result Comment: The validity of the calculated GFR AND GFRAA in patients over 70 years has not been determined. Clinical correlation is essential. LAB L501.1110 >60 mL/min Normal EST GFR 91 Result Comment: Non- GFR Calc LAB L501.1115 >60 mL/min Normal EST GFR - AA 110 Result Comment: GFR Calc LAB L501.1255 ml/min Normal Estimated CRCL 91.20 LAB L501.1300 10-20 RATIO Low BUN/CRE 7.9 LAB L501.1500 6.4-8. g/dL Normal 2 T PROT 7.2 LAB L501.1800 3.2-5. g/dL Low 0 ALB 2.9 LAB L501.1950 2.2-4. g/dL High 2 GLOB 4.3 LAB L501.2000 0.9-2. RATIO Low 4 A/G 0.7 LAB L501.2200 8.5-10 mg/dL Normal .1 CA 8.6 LAB L501.4100 15-37 U/L Normal AST 30 Result Comment: Moderate Hemolysis, Result may be falsely increased. LAB L501.4305 45-117 U/L High ALK P 120 LAB L501.4405 13-56 U/L Normal ALT 17 LAB L501.4600 0.20-1.00 mg/dL Normal T BILI 0.40 LAB L501.5300 136-145 mmol/L Low NA 134 LAB L501.5600 3.5-5.1 mmol/L Normal K 4.6 Result Comment: Moderate Hemolysis, Result may be falsely increased. LAB L501.5900 98-107 mmol/L Normal CL 103 LAB L501.6100 21.0-32.0 mmol/L Normal CO2 24.0 LAB L501.6200 5-15 Normal 7 GAP Performed By: #### L500.4050, L501.4010 #### [facility] [address] [place], [address] TROPONIN-I Collected: 02/01/2018 Status: F Source: [place] 2:15 PM [facility] TYPE CODE TESTS RESULT OUT OF RANGE REFERENCE UNITS LAB L501.4010 <0.045 ng/mL Normal < 0.015 TROPONIN-I Result Comment: TROPONIN-I EXPECTED VALUES <0.045 Negative 0.045 - 0.590 Consistent with Cardiac Damage > OR = 0.600 Critical Value Not every elevated troponin is indicative of TX. These values should be used with clinical judgement in examining the patient's clinical picture for diagnosis. To establish a diagnosis of TX versus myocardial injury, there must be a demonstrated rise and/or fall in the troponin values, in addition to ischemic symptoms, EKG changes, new regional wall motion abnormality, and/or angiographical evidence. PLEASE NOTE: REFERENCE RANGES EDITED 17 Performed By: #### L500.4050, L501.4010 #### [facility] [address] [facility] [address] [place], [place], [address] D-DIMER QUANTITATIVE Collected: 02/01/2018 Status: F Source: [place] (DVT/PE) 2:15 PM [facility] TYPE CODE TESTS RESULT OUT OF RANGE REFERENCE UNITS LAB L300.8000 0.27-0.49 FEU/ug/m Normal D-DIMER 0.42 QUANT Result Comment: NORMAL D-Dimer level (<0.50) indicates no DVT or PE. Performed By: #### L300.8000 #### [facility] [address] [place], [place], [address] CHEST PA AND LATERAL Observed: 02/01/2018 Status: F Source: [place] 1:57 PM [facility] Imaging Services [address] [place] [address] Chest PA and Lateral MR#: [id number] Acct: [id number] Name: GINGER ARELLANO Teja Rep #: [id number] : 1980 F 37 From: Joel Campbell MD PCP: Eldon Ortiz MD Status: REG ER Study: Chest PA and Lateral Date of Exam: 02/01/18 Exam# [id number] Ordering Dr: Mal Gomez DO STUDY: X-RAY CHEST REASON FOR EXAM: Female, 37 years old. Hyperglycemia. TECHNIQUE: PA and lateral views. COMPARISON: 10/08/2017 and 05/07/2016. FINDINGS: The lungs are clear and expanded. There is no demonstrated pleural abnormality. Normal size heart. Normal mediastinum and kayden. Normal visualized pulmonary arteries. Normal visualized aortic arch and descending thoracic aorta. Old compression fractures involving T9, T10, T11, T12 and L1 vertebral bodies. Normal visualized ribs, clavicles, and shoulders. There is no demonstrated abnormality of the visualized soft tissue structures of the upper abdomen. RAD/Chest PA and Lateral IMPRESSION: 1. No acute cardiopulmonary pathology. 2. Old compression fractures involving T9 down to L1 vertebral bodies. 3. No significant interval change when compared to 09/28/2017 and 05/07/2016. Electronically Signed: Joel Campbell MD at 14:52 EDT , Service support , CC: Mal Gomez DO; Eldon Ortiz MD Mapping Supervisor: Signed BEDSIDE GLUCOSE Collected: 02/01/2018 Status: F Source: ANNI 1:43 PM [facility] TYPE CODE TESTS RESULT OUT OF REFERENCE UNITS RANGE LAB L501.080 70-110 mg/dL High BEDSIDE GLU 351 Result Comment: MANAGEMENT OF PATIENT CARE PER NURSING PROTOCOL Performed By: #### L501.080 #### [facility] Point of Care [address] [place] [address] URINALYSIS WITH Collected: 01/30/2018 Status: F Source: JONES MICROSCOPIC 12:50 PM [facility] RE[facility] TYPE CODE TESTS RESULT OUT OF RANGE REFERENCE UNITS LAB UCOL Yellow Color Yellow LAB [facility] Clear Clarity Abnormal Cloudy Alert LAB UGLUC Negative mg/dL Glucose, Abnormal Urine >=500 Alert LAB UBIL Negative Bilirubin, Urine Negative LAB UKET Negative Ketones, Urine Negative LAB USPG 1.005-1.030 High Specific [place], Ur 1.037 LAB UHGB Negative Abnormal Hemoglobin/Blood, 1+ Alert Ur LAB UPH 4.5-8.0 pH 6.0 LAB UPROT Negative mg/dL Protein, Urine Negative LAB UUROB Normal Urobilinogen Normal LAB UNITR Negative Nitrites Negative LAB ULKEST Negative Leukest Abnormal 3+ Alert LAB UCOM Comments SEE COMMENT Result Comment: N/A LAB UMCOM Urine SEE Joe Comment COMMENT Result Comment: Result rechecked. LAB UWBC 0-5 /HPF Abnormal WBC Alert 6-10 LAB URBC 0-3 /HPF Abnormal RBC Alert 11-25 LAB UEPI /HPF Epithelial Cells SEE COMMENT Result Comment: Few Squamous Epithelial Cells Performed By: #### UAWMIC #### [facility] [address] [place], [place] [address] PROGRESS Observed: 01/30/2018 Status: COMPLETED Source: PERRY 10:31 AM [facility] REPOSITORY HNO ID: [id number] Author: Sonia Mantilla (Mihaela) Jordan Service: (none) Author Type: Physician Clutch Specialist Type: Progress Notes Filed: 01/30/2018 7:30 PM Note Text: 37 year old female with c/o 1. Burning, itching vaginally. Frequent urination. Mirena put in 2 weeks ago. Had period same day. No new partners. Hx STD. 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 2. Marital discord: Discussed at length. 3. Taking medication as directed consistently? Yes Medical Issues / Complications: hypertension and hyperlipidemia Checking blood sugars at home? No. Watching diet? No Physical Activity: Regular Hypoglycemic spells? Yes, not in last few months. Any visual disturbance? No Chest pain? No New numbness, tingling or loss of sensation? No Any recent foot problems, sores or rashes? No Any recent or sudden weight loss? No Any recent illness? No Renal protective agent? Yes ASA daily? No Statin therapy? Yes Triglyceride therapy? No Last eye exam: 10/21/17. Last foot exam: due. HBA1C: Hemoglobin A1C (%) Date Value 10/24/2017 10.0 07/26/2017 8.7 ) CMP: Glucose 416 10/24/2017 BUN 10 10/24/2017 Creatinine 0.60 10/24/2017 Sodium 135 10/24/2017 Potassium 4.4 10/24/2017 Chloride 101 10/24/2017 CO2 20 10/24/2017 Protein, Total 7.3 10/24/2017 Albumin 3.7 10/24/2017 Calcium 9.2 10/24/2017 Alkaline Phosphatase 110 10/24/2017 Bilirubin, Total <0.2 10/24/2017 AST 18 10/24/2017 ALT 19 10/24/2017 Last 2 Encounter Wt Readings: Date: Wt: 01/30/2018 116.1 kg (256 lb) 01/13/2018 114.3 kg (252 lb) HISTORIES FAMILY HISTORY Problem Relation Age of Onset - Heart Mother - Heart Father - Diabetes Mother - Hypertension Mother - Cancer Maternal Grandmother stomach cancer. - Arthritis Mother - Arthritis Father PAST MEDICAL HISTORY Diagnosis Date - Anxiety 12/29/2012 - Arrhythmia - Calculus of gallbladder with other cholecystitis, without mention of obstruction - Diabetes (HCC) - Hypertension PAST SURGICAL HISTORY Procedure Laterality Date - DELIVERY ONLY , low transverse x2 - INSERTION OF IUD 03/09/2013 - LAP CHOLECYSTOENTEROSTOMY 10/04/08 - LAPAROSCOPIC CHOLEYCYSTECTOMY 10/03/08 - LIGATE FALLOPIAN TUBE Tubal ligation Social History Marital status: Single Spouse name: Years of education: Number of children: 3 Social History Main Topics Smoking status: Current Every Day Smoker Packs/day: 2.00 Years: 20.00 Types: Cigarettes Smokeless tobacco: Never Used Alcohol use: Yes Comment: occ Drug use: No Sexual activity: Yes Partners with: Male control/protection: Tubal Ligation Comment: Mirena inserted 03/09/2013 Social History Narrative Lives with boyfriend. 3 children one of whom lives with her. 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 Disp: 1 Inhaler Rfl: 0 nystatin (NYSTOP) powder Apply 1 application to affected area four times daily. Disp: 1 Bottle Rfl: 3 amitriptyline (ELAVIL) 25 mg tablet Take 1 tablet by mouth daily at bedtime. Disp: 30 tablet Rfl: 2 metFORMIN (GLUCOPHAGE) 500 mg tablet Take 1 tablet by mouth twice daily with meals. Disp: 60 tablet Rfl: 5 insulin glargine (BASAGLAR KWIKPEN U-100 INSULIN) 100 unit/mL (3 mL) inpn Inject 15 Units subcutaneously daily at bedtime. Disp: 7 Pen Rfl: 11 blood sugar diagnostic (BLOOD GLUCOSE TEST) test strip Test blood sugar(s) 1 times daily. Dx: Type 2 DM - Uncontrolled E11.65 Insulin: Yes Disp: 50 Strip Rfl: 11 Insulin [place], Disposable, (SURE-FINE PEN NEEDLES) 31 gauge x 3/16 ndle Daily injections Disp: 30 Each Rfl: 11 Lancets lancets Test blood sugar(s) once times daily. Dx: 250.00. Insulin: No Disp: 100 Each Rfl: 2 levonorgestrel (MIRENA) 20 mcg/24 hour (5 years) IUD 1 Each by INTRAUTERINE route continuous. Disp: Rfl: mometasone (ELOCON) 0.1 % cream Apply 1 application to affected area once daily. Disp: 45 g Rfl: 0 No current facility-administered medications for this visit. ONE PNEUMOVAX PRIOR TO AGE 65 due on 1996 PAP EVERY 3 YEARS due on 12/30/2015 DIABETIC FOOT EXAM due on 03/19/2017 INFLUENZA(1) due on 12/24/2017 HBA1C due on 01/24/2018 EXAM: BP 122/80 Pulse 72 Wt 116.1 kg (256 lb) SpO2 98% BMI 41.64 kg/m? Pleasant obese adult woman in no acute distress. Alert and oriented all spheres. Normal affect and cognition. Speech normal. No deficits to learning or comprehension. Skin warm, dry, pink to lips and nailbeds. Normal turgor. Respirations regular and unlabored. HEENT WNL. TM's clear. Nose and oropharynx free from injection or lesion. No cervical lymph nodes. Thyroid non-tender, no masses Chest CTA. HRRR without murmur or gallop. Abdomen: active bowel sounds throughout, soft, nontender, no masses or organomegaly. No CVAT. Extrem: no clubbing, cyanosis, edema. Extremities are warm and pink with prompt capillary refill. Urine dip: leuk sm, nitrite neg, prot trace, blood small, SG 1.015 ASSESSMENT/PLAN: 1. Dysuria - ICD9: 788.1, ICD10: R30.0 (primary diagnosis) acute - Send urine for culture - Begin treatment with Bactrim DS BID for 3 days - Patient education for prevention given - UA DIP B/O - URINALYSIS WITH MICROSCOPIC - URINE CULTURE 2. Urinary frequency - ICD9: 788.41, ICD10: R35.0 acute - Patient education for prevention given - GLUCOSE, BLOOD (POC) 3. Uncontrolled type 2 diabetes mellitus without complication, with long-term current use of insulin (HCC) - ICD9: 250.02, V58.67, ICD10: E11.65, Z79.4 uncontrolled - INSULIN GLARGINE (U-100) 100 UNIT/ML (3 ML) SUBCUTANEOUS PEN - METFORMIN 500 MG TABLET - Increase Metformin to 1000mg twice a day. Increase Basaglar insulin from 15u to 20u - Follow fasting and 2h PC evening meal blood sugars x 2 weeks and call or My Chart results. - LANCETS - BLOOD SUGAR DIAGNOSTIC STRIPS - BLOOD-GLUCOSE METER KIT - GLUCOSE, BLOOD (POC) 5. Morbid obesity with BMI of 50.0-59.9, adult (HCC) - ICD9: 278.01, V85.43, ICD10: E66.01, Z68.43 Discussed measures for weight loss with diet and exercise 6. Marital conflict - ICD9: V61.10, ICD10: Z63.0 Talked for 20/ 30 minute visit related to marital issues. Discussed love/ respect, communication F/u in 3 days after UC back if still having sx suggest pelvic exam M MIHAELA Ray Observed: 01/30/2018 Status: COMPLETED Source: PERRY 10:00 AM [facility] REPOSITORY Office Visit (FAMPWS) GINGER ARELLANO ([id number]) 1980 F Date Time Provider Department 01/30/18 10:00 AM Sonia ORTEGA) FAMPWS During your visit today, we recorded the following information about you: Pulse Blood pressure Weight 72/minute 122/80 116.1 kg M Jose Rafael Ortega PA-C 01/30/2018 7:30 PM Signed 37 year old female with c/o 1. Burning, itching vaginally. Frequent urination. Mirena put in 2 weeks ago. Had period same day. No new partners. Hx STD. 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 2. Marital discord: Discussed at length. 3. Taking medication as directed consistently? Yes Medical Issues / Complications: hypertension and hyperlipidemia Checking blood sugars at home? No. Watching diet? No Physical Activity: Regular Hypoglycemic spells? Yes, not in last few months. Any visual disturbance? No Chest pain? No New numbness, tingling or loss of sensation? No Any recent foot problems, sores or rashes? No Any recent or sudden weight loss? No Any recent illness? No Renal protective agent? Yes ASA daily? No Statin therapy? Yes Triglyceride therapy? No Last eye exam: 10/21/17. Last foot exam: due. HBA1C: Hemoglobin A1C (%) Date Value 10/24/2017 10.0 07/26/2017 8.7 ) CMP: Glucose 416 10/24/2017 BUN 10 10/24/2017 Creatinine 0.60 10/24/2017 Sodium 135 10/24/2017 Potassium 4.4 10/24/2017 Chloride 101 10/24/2017 CO2 20 10/24/2017 Protein, Total 7.3 10/24/2017 Albumin 3.7 10/24/2017 Calcium 9.2 10/24/2017 Alkaline Phosphatase 110 10/24/2017 Bilirubin, Total <0.2 10/24/2017 AST 18 10/24/2017 ALT 19 10/24/2017 Last 2 Encounter Wt Readings: Date: Wt: 01/30/2018 116.1 kg (256 lb) 01/13/2018 114.3 kg (252 lb) HISTORIES FAMILY HISTORY Problem Relation Age of Onset - Heart Mother - Heart Father - Diabetes Mother - Hypertension Mother - Cancer Maternal Grandmother stomach cancer. - Arthritis Mother - Arthritis Father PAST MEDICAL HISTORY Diagnosis Date - Anxiety 12/29/2012 - Arrhythmia - Calculus of gallbladder with other cholecystitis, without mention of obstruction - Diabetes (HCC) - Hypertension PAST SURGICAL HISTORY Procedure Laterality Date - DELIVERY ONLY , low transverse x2 - INSERTION OF IUD 03/09/2013 - LAP CHOLECYSTOENTEROSTOMY 10/04/08 - LAPAROSCOPIC CHOLEYCYSTECTOMY 10/03/08 - LIGATE FALLOPIAN TUBE Tubal ligation Social History Marital status: Single Spouse name: Years of education: Number of children: 3 Social History Main Topics Smoking status: Current Every Day Smoker Packs/day: 2.00 Years: 20.00 Types: Cigarettes Smokeless tobacco: Never Used Alcohol use: Yes Comment: occ Drug use: No Sexual activity: Yes Partners with: Male control/protection: Tubal Ligation Comment: Mirena inserted 03/09/2013 Social History Narrative Lives with boyfriend. 3 children one of whom lives with her. 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 Disp: 1 Inhaler Rfl: 0 nystatin (NYSTOP) powder Apply 1 application to affected area four times daily. Disp: 1 Bottle Rfl: 3 amitriptyline (ELAVIL) 25 mg tablet Take 1 tablet by mouth daily at bedtime. Disp: 30 tablet Rfl: 2 metFORMIN (GLUCOPHAGE) 500 mg tablet Take 1 tablet by mouth twice daily with meals. Disp: 60 tablet Rfl: 5 insulin glargine (BASAGLAR KWIKPEN U-100 INSULIN) 100 unit/mL (3 mL) inpn Inject 15 Units subcutaneously daily at bedtime. Disp: 7 Pen Rfl: 11 blood sugar diagnostic (BLOOD GLUCOSE TEST) test strip Test blood sugar(s) 1 times daily. Dx: Type 2 DM - Uncontrolled E11.65 Insulin: Yes Disp: 50 Strip Rfl: 11 Insulin [place], Disposable, (SURE-FINE PEN NEEDLES) 31 gauge x 3/16 ndle Daily injections Disp: 30 Each Rfl: 11 Lancets lancets Test blood sugar(s) once times daily. Dx: 250.00. Insulin: No Disp: 100 Each Rfl: 2 levonorgestrel (MIRENA) 20 mcg/24 hour (5 years) IUD 1 Each by INTRAUTERINE route continuous. Disp: Rfl: mometasone (ELOCON) 0.1 % cream Apply 1 application to affected area once daily. Disp: 45 g Rfl: 0 No current facility-administered medications for this visit. ONE PNEUMOVAX PRIOR TO AGE 65 due on 1996 PAP EVERY 3 YEARS due on 12/30/2015 DIABETIC FOOT EXAM due on 03/19/2017 INFLUENZA(1) due on 12/24/2017 HBA1C due on 01/24/2018 EXAM: BP 122/80 Pulse 72 Wt 116.1 kg (256 lb) SpO2 98% BMI 41.64 kg/m? Pleasant obese adult woman in no acute distress. Alert and oriented all spheres. Normal affect and cognition. Speech normal. No deficits to learning or comprehension. Skin warm, dry, pink to lips and nailbeds. Normal turgor. Respirations regular and unlabored. HEENT WNL. TM's clear. Nose and oropharynx free from injection or lesion. No cervical lymph nodes. Thyroid non-tender, no masses Chest CTA. HRRR without murmur or gallop. Abdomen: active bowel sounds throughout, soft, nontender, no masses or organomegaly. No CVAT. Extrem: no clubbing, cyanosis, edema. Extremities are warm and pink with prompt capillary refill. Urine dip: leuk sm, nitrite neg, prot trace, blood small, SG 1.015 ASSESSMENT/PLAN: 1. Dysuria - ICD9: 788.1, ICD10: R30.0 (primary diagnosis) acute - Send urine for culture - Begin treatment with Bactrim DS BID for 3 days - Patient education for prevention given - UA DIP B/O - URINALYSIS WITH MICROSCOPIC - URINE CULTURE 2. Urinary frequency - ICD9: 788.41, ICD10: R35.0 acute - Patient education for prevention given - GLUCOSE, BLOOD (POC) 3. Uncontrolled type 2 diabetes mellitus without complication, with long-term current use of insulin ([facility]) - ICD9: 250.02, V58.67, ICD10: E11.65, Z79.4 uncontrolled - INSULIN GLARGINE (U-100) 100 UNIT/ML (3 ML) SUBCUTANEOUS PEN - METFORMIN 500 MG TABLET - Increase Metformin to 1000mg twice a day. Increase Basaglar insulin from 15u to 20u - Follow fasting and 2h PC evening meal blood sugars x 2 weeks and call or My Chart results. - LANCETS - BLOOD SUGAR DIAGNOSTIC STRIPS - BLOOD-GLUCOSE METER KIT - GLUCOSE, BLOOD (POC) 5. Morbid obesity with BMI of 50.0-59.9, adult ([facility]) - ICD9: 278.01, V85.43, ICD10: E66.01, Z68.43 Discussed measures for weight loss with diet and exercise 6. Marital conflict - ICD9: V61.10, ICD10: Z63.0 Talked for 20/ 30 minute visit related to marital issues. Discussed love/ respect, communication F/u in 3 days after UC back if still having sx suggest pelvic exam MIHAELA Chan PA-C 01/30/2018 11:29 AM Signed Follow fasting and 2h PC evening meal blood sugars x 5 days and call or My Chart results. Your urine test was abnormal. We will send it for culture and call you in the next 1-2 days with results. Force fluids with water and juices (not caffeine) to 2000cc per day until symptoms improve. Any mechanical pressure in the area of the urethra (wear urine comes out) may cause bacteria to be pushed up inside the bladder. You should urinate to clear out bacterial contamination before and after sex, after tampon insertion, or after washing the vaginal area. It is important to wipe front to back after voiding. If you develop a fever, chills, unusual back pain, or vomiting, this may mean you have infection in the kidney which can be more serious. If this occurs, or you fail to improve on the antibiotics in 3 days, either call the office to be checked or go to the emergency department. Take Bactrim DS as directed per prescription Pyridium is a urinary anesthetic which should decrease the discomfort over the next few days. It will turn the urine a bright orange or yellow color, and it will permanently stain clothing if you drip. If you should breakout in a rash, stop the medicine and call the office. Any antibiotic has the potential to cause diarrhea due to alteration in the normal bacterial raymundo of the gut. This can be reduced by eating yogurt with active cultures daily while on the medication. If diarrhea becomes severe (watery, large volumes or more than 3-4/day) call the office. While on antibiotics women may experience yeast vaginitis due to alteration in the vaginal raymundo. Symptoms include vaginal itching, irritation, and often a clumpy white discharge. If this occurs, there are several effective over the counter remedies available, including one-dose treatments. If these are unsuccessful, call the office. Antibiotics may interfere with control. If you are on oral contraceptives, use another form of protection (condoms, foams, jellies, diaphragm) throught the end of whatever pill pack you are on when you finish the antibiotic.= Take Diflucan as directed for vagintiis Referring Provider: SELF [[id number]] Allergies As of Date: 01/30/2018 Noted Allergy Reaction CATS 10/23/2009 4 - Hives 9 - Itching DUST 10/23/2009 Comments: environmental GRASS POLLEN 10/23/2009 9 - Itching CARDIZEM (DILTIAZEM) 07/25/2013 8 - GI Upset 11 - Vomiting PERCOCET (OXYCODONE-ACETAMINOPHEN)06/07/2016 11 - Vomiting ZYRTEC (CETIRIZINE HCL) 08/22/2013 4 - Hives Date Reviewed: 01/13/2018 Reviewed by: Teetee Maya Ma - Fully Assessed Reason for Visit: Vaginal Problem [117] Cmt: irritation, 1 week Reason For Visit History Recorded Primary Visit Diagnosis:Dysuria [R30.0] Other Visit Diagnoses:Type 2 diabetes mellitus without complication, without long-term current use of insulin (HCC) [E11.9] Urinary frequency [R35.0] Uncontrolled type 2 diabetes mellitus without complication, with long-term current use of insulin ([facility]) [E11.65, Z79.4] Morbid obesity with BMI of 50.0-59.9, adult ([facility]) [E66.01, Z68.43] Marital conflict [Z63.0] Order(s):Lancets lancetsTest blood sugar(s) two times daily. Dx: . Insulin: YesDisp: 100 EachRfl: 2 blood sugar diagnostic (BLOOD GLUCOSE TEST) test stripTest blood sugar(s) 2 times daily. Dx: Type 2 DM - Uncontrolled Insulin: YesDisp: 100 StripRfl: 11 Blood-Glucose Meter monitoring kitGlucose Meter of Choice - Kit - Dx: Type 2 DM - Uncontrolled Disp: 1 EachRfl: 0 UA DIP B/O [[id number]] Order #: [id number] URINALYSIS WITH MICROSCOPIC [SQUAWMIC] Order #: [id number]. #:[id number] URINE CULTURE [SQURCUL] Order #: [id number] GLUCOSE, BLOOD (POC) [1618501] Order #: [id number] GLUCOSE, BLOOD (POC) [8723232] Order #: [id number]. #:[id number] insulin glargine (BASAGLAR KWIKPEN U-100 INSULIN) 100 unit/mL (3 mL) inpnInject 20 Units subcutaneously daily at bedtime.Disp: 7 PenRfl: 11 metFORMIN (GLUCOPHAGE) 500 mg tabletTake 2 tablets by mouth twice daily with meals.Disp: 120 tabletRfl: 5 fluconazole (DIFLUCAN) 150 mg tabletTake 1 tablet by mouth one time only for 1 dose. Repeat in 3 days as needed.Disp: 2 tabletRfl: 0 sulfamethoxazole-trimethoprim (BACTRIM DS) 800-160 mg per tabletTake 1 tablet by mouth twice daily for 3 days.Disp: 6 tabletRfl: 0 Prescriptions as of 01/30/2018 Sig: INSULIN GLARGINE (U-100) 100 * Inject 20 Units subcutaneousl* METFORMIN 500 MG TABLET Take 2 tablets by mouth twice* ALBUTEROL SULFATE HFA 90 MCG/* Inhale 2 Puffs as instructed * NYSTATIN 100,000 UNIT/GRAM TO* Apply 1 application to affect* AMITRIPTYLINE 25 MG TABLET Take 1 tablet by mouth daily * PEN NEEDLE, DIABETIC 31 GAUGE* Daily injections LEVONORGESTREL 20 MCG/24 HR (* 1 Each by INTRAUTERINE route * LANCETS Test blood sugar(s) two times* BLOOD SUGAR DIAGNOSTIC STRIPS Test blood sugar(s) 2 times d* BLOOD-GLUCOSE METER KIT Glucose Meter of Choice - Kit* FLUCONAZOLE 150 MG TABLET Take 1 tablet by mouth one ti* SULFAMETHOXAZOLE 800 MG-TRIME* Take 1 tablet by mouth twice * MOMETASONE 0.1 % TOPICAL CREAM Apply 1 application to affect* Problem List As Of Date 01/30/2018 Noted Resolved Essential hypertension [I10] INVALID FOR* Backache, unspecified [M54.9] INVALID FOR* Anxiety [F41.9] INVALID FOR* Brachial plexus lesions [G54.0] INVALID FOR* Chest pain, atypical [R07.89] INVALID FOR*06/07/2016 Uncontrolled type 2 diabetes mellitus without c*INVALID FOR* Pain in limb [M79.609] INVALID FOR*06/07/2016 Reflex sympathetic dystrophy [G90.50] INVALID FOR* Neuropathic pain [M79.2] INVALID FOR* RSD lower limb [G90.529] INVALID FOR* Lupus (HCC) [L93.0] INVALID FOR* More... Fibromyalgia [M79.7] INVALID FOR* Patellofemoral instability of both knees with p*INVALID FOR* Osteoarthritis of right knee [M17.11] INVALID FOR* Pain in right knee [M25.561] INVALID FOR* Dyslipidemia [E78.5] INVALID FOR* Morbid obesity with BMI of 50.0-59.9, adult (HC*INVALID FOR* Tobacco abuse [Z72.0] INVALID FOR* Primary osteoarthritis of right knee [M17.11] INVALID FOR* More... Chronic pain of right knee [M25.561, G89.29] INVALID FOR* More... Other instructions from your clinician: Follow fasting and 2h PC evening meal blood sugars x 5 days and call or My Chart results. Your urine test was abnormal. We will send it for culture and call you in the next 1-2 days with results. Force fluids with water and juices (not caffeine) to 2000cc per day until symptoms improve. Any mechanical pressure in the area of the urethra (wear urine comes out) may cause bacteria to be pushed up inside the bladder. You should urinate to clear out bacterial contamination before and after sex, after tampon insertion, or after washing the vaginal area. It is important to wipe front to back after voiding. If you develop a fever, chills, unusual back pain, or vomiting, this may mean you have infection in the kidney which can be more serious. If this occurs, or you fail to improve on the antibiotics in 3 days, either call the office to be checked or go to the emergency department. Take Bactrim DS as directed per prescription Pyridium is a urinary anesthetic which should decrease the discomfort over the next few days. It will turn the urine a bright orange or yellow color, and it will permanently stain clothing if you drip. If you should breakout in a rash, stop the medicine and call the office. Any antibiotic has the potential to cause diarrhea due to alteration in the normal bacterial raymundo of the gut. This can be reduced by eating yogurt with active cultures daily while on the medication. If diarrhea becomes severe (watery, large volumes or more than 3-4/day) call the office. While on antibiotics women may experience yeast vaginitis due to alteration in the vaginal raymundo. Symptoms include vaginal itching, irritation, and often a clumpy white discharge. If this occurs, there are several effective over the counter remedies available, including one-dose treatments. If these are unsuccessful, call the office. Antibiotics may interfere with control. If you are on oral contraceptives, use another form of protection (condoms, foams, jellies, diaphragm) throught the end of whatever pill pack you are on when you finish the antibiotic.= Take Diflucan as directed for vagintiis Prescriptions ordered this encounter Disp Refills Start End LANCETS 100 * 2 01/30/2018 Sig: Test blood sugar(s) two times daily. Dx: E11.65. Insulin: Yes BLOOD SUGAR DIAGNOSTIC STRIPS 100 * 11 01/30/2018 Sig: Test blood sugar(s) 2 times daily. Dx: Type 2 DM - Uncontrolled 65 Insulin: Yes BLOOD-GLUCOSE METER KIT 1 Ea* 0 01/30/2018 01/31/2018 Sig: Glucose Meter of Choice - Kit - Dx: Type 2 DM - Uncontrolled 65 INSULIN GLARGINE (U-100) 100 UNIT/ML* 7 Pen 11 01/30/2018 Class: Med Update Route: SUBCUTANEOUS Sig: Inject 20 Units subcutaneously daily at bedtime. METFORMIN 500 MG TABLET 120 * 5 01/30/2018 Route: ORAL Sig: Take 2 tablets by mouth twice daily with meals. FLUCONAZOLE 150 MG TABLET 2 ta* 0 01/30/2018 01/30/2018 Route: ORAL Sig: Take 1 tablet by mouth one time only for 1 dose. Repeat in 3 days as needed. SULFAMETHOXAZOLE 800 MG-TRIMETHOPRIM* 6 ta* 0 01/30/2018 02/02/2018 Route: ORAL Sig: Take 1 tablet by mouth twice daily for 3 days. Medications Discontinued During This Encounter metFORMIN (GLUCOPHAGE) 500 mg tablet 12/06/2017 01/30/2018 Class: Historical Med Sig: TWICE A DAY Disc: Duplicate Entry pregabalin (LYRICA) 150 mg capsule 90 c* 2 10/24/2017 01/30/2018 Class: Print RX Route: ORAL Sig: Take 1 capsule by mouth three times daily for 90 days. Patient not taking: Reported on 01/13/2018 Disc: Reason for discontinue is not on file. flash glucose scanning reader (FREES* 1 Ea* 0 11/14/2017 01/30/2018 Sig: DX:E11.65 Disc: Cost of medication COMPOUNDED PRESCRIPTION 1 Ea* 0 11/17/2017 01/30/2018 Class: Print RX Sig: FREE STYLE ANA SENSOR 1 EACH E11.65, Z79.4 Uncontrolled type 2 diabetes mellitus without complication, with long-term current use of insulin ([facility]) (primary encounter diagnosis) Disc: Cost of medication flash glucose sensor (FREESTYLE LIBR* 1 Ea* 0 10/24/2017 01/30/2018 Class: Print RX Sig: Use as directed daily. Insulin requiring. Poorly controlled diabetes mellitus Disc: Cost of medication blood sugar diagnostic (TRUETRACK TE* 50 S* 2 08/21/2015 01/30/2018 Sig: Test 1 time daily DX: E11.9 Insulin: No Disc: Reason for discontinue is not on file. Blood-Glucose Meter (TRUETRACK BLOOD* 1 Ea* 0 06/17/2014 01/30/2018 Sig: Test blood sugar once a day (250.00 no insulin) Disc: Reason for discontinue is not on file. Lancets lancets 100 * 2 11/13/2015 01/30/2018 Sig: Test blood sugar(s) once times daily. Dx: 250.00. Insulin: No Disc: Reason for discontinue is not on file. blood sugar diagnostic (BLOOD GLUCOS* 50 S* 11 01/11/2017 01/30/2018 Sig: Test blood sugar(s) 1 times daily. Dx: Type 2 DM - Uncontrolled E11.65 Insulin: Yes Disc: Reason for discontinue is not on file. insulin glargine (BASAGLAR KWIKPEN U* 7 Pen 11 07/28/2017 01/30/2018 Route: SUBCUTANEOUS Sig: Inject 15 Units subcutaneously daily at bedtime. Disc: Reason for discontinue is not on file. metFORMIN (GLUCOPHAGE) 500 mg tablet 60 t* 5 10/24/2017 01/30/2018 Route: ORAL Sig: Take 1 tablet by mouth twice daily with meals. Disc: Reason for discontinue is not on file. Encounter Status:Closed by Sonia ORTEGA PA-C on 01/30/18 Observed: 01/30/2018 Status: F Source: [facility] URINE CULTURE 4:32 AM [facility] REPOSITORY Sp. Request/Comment: - Specimen received in preservative Culture Result - >=100,000 CFU/ml Streptococcus agalactiae (Group B streptococcus) --> ABNORMAL ALERT Susceptibility testing not performed on beta hemolytic streptococci due to predictable suscept ibility to penicillin and other beta lactams. For testing, call Microbiology within 72 hours. --> ABNORMAL ALERT <10,000 CFU/ml --> ABNORMAL ALERT Staphylococcus aureus --> ABNORMAL ALERT In significant colony count. No further workup. --> ABNORMAL ALERT <10,000 CFU/ml Normal urogenital raymundo Performed By: #### URCUL #### [facility] [address] [place], [place] [address] EMERGENCY DEPARTMENT Observed: 01/19/2018 Status: F Source: [place] SUMMARY 12:19 AM [facility] Medical Records Department [address] [place] [address] Emergency Department Summary 01/19/18 0016 MR#: [id number] Acct: [id number] Name: GINGER ARELLANO Rep #: [id number] : 1980 37 From: Jose Vee MD PCP: Eldon Ortiz MD Status: REG ER - ER Visit Summary Date of Service: 01/19/18 Chief Complaint: Cold History of Present Illness: The patient is a 37 F complains of cold symptoms for the past 8 days. She can planes of congestion rhinorrhea sore throat cough diarrhea shortness of breath. She is a smoker. She states she was seen at the urgent care 5 days ago and given steroids and cough syrup but just is not improving. She states that her chest and back are sore from coughing. Physical Examination: Heart rate 100 vitals otherwise unremarkable No distress able to speak in full sentences no increased work of breathing or retractions She does have some decreased air exchange and expiratory wheezing Heart is regular rate and rhythm Abdomen soft Alert Moist mucous membranes Clear voice, no trismus Test Results: Not indicated Emergency Department Course and Treatment: Patient presents with symptoms consistent with rhinosinusitis. Given persistent symptoms for 8 days I do feel antibiotics are potentially benefit. She will be placed on azithromycin. She understands to return for new or worsening symptoms. She was instructed on specific signs and symptoms to monitor for and will otherwise follow-up with her primary care physician. Treatment Plan: [] Disposition: Discharge Impression: Acute rhinosinusitis This note was generated with [employer] dictation software. It may contain incorrect words, spelling, and punctuation that were not noted in review of the chart prior to signing ED Disposition - Plan for ED Patient: Chief Complaint: Cold Sx Referrals: Eldon Ortiz MD [Primary Care Provider] - What to do if you have Problems For any increased pain, shortness of breath, bleeding, nausea or vomiting, chest pain, or any unexpected problems, contact your Primary Care Provider. Call [facility] ([phone]) or report to the closest Emergency Room. Call 911 if necessary. 01/19/18 0019 <Electronically signed by Jose Vee MD> Date Jose Vee MD Cosigner Signature (If Indicated): Date CC: Eldon Ortiz MD DISCHARGE INSTRUCTION Observed: 01/19/2018 Status: F Source: ANNI 12:19 AM [facility] Medical Records Department [address] [address] Discharge Instruction 01/19/1818 MR#: [id number] Acct: [id number] Name: GINGER ARELLANO Rep #: [id number] : 1980 37 From: Jose Vee MD PCP: Eldon Ortiz MD Status: REG ER ED Disposition - Plan for ED Patient: Chief Complaint: Cold Sx Instructions: ED Upper Resp Infec Abx Tx Prescriptions: Azithromycin [Zithromax Z-Greg] 250 mg PO UD #1 box Referrals: Eldon Ortiz MD [Primary Care Provider] - What to do if you have Problems For any increased pain, shortness of breath, bleeding, nausea or vomiting, chest pain, or any unexpected problems, contact your Primary Care Provider. Call [facility] ([phone]) or report to the closest Emergency Room. Call 911 if necessary. 01/19/1818 <Electronically signed by Jose Vee MD> Date Jose Vee MD Cosigner Signature (If Indicated): Date CC: Eldon Ortiz MD PROGRESS Observed: 01/13/2018 Status: COMPLETED Source: [facility] 7:33 PM [facility] RE[facility] O ID: [id number] Author: Ana Laura Lezama (Natalya Cameron Service: (none) Author Type: Nurse Practitioner Type: Progress Notes Filed: 01/13/2018 7:36 PM Note Text: Subjective HPI Patient presents with: Nasal Congestion: headache, fatigue, diarrhea Denies any otc treatment for symptoms. Current daily smoker and hx of pneumonia Review of Systems Constitutional: Positive for chills and malaise/fatigue. Negative for fever. HENT: Positive for congestion and sore throat. Negative for ear pain. Eyes: Negative for discharge and redness. Respiratory: Positive for cough. Negative for hemoptysis, sputum production, shortness of breath and wheezing. Gastrointestinal: Positive for diarrhea (x1 day, several times). Negative for abdominal pain, nausea and vomiting. Skin: Negative for rash. Neurological: Positive for headaches. PAST MEDICAL HISTORY Diagnosis Date - Anxiety 12/29/2012 - Arrhythmia - Calculus of gallbladder with other cholecystitis, without mention of obstruction - Diabetes (HCC) - Hypertension PAST SURGICAL HISTORY Procedure Laterality Date - DELIVERY ONLY , low transverse x2 - INSERTION OF IUD 03/09/2013 - LAP CHOLECYSTOENTEROSTOMY 10/04/08 - LAPAROSCOPIC CHOLEYCYSTECTOMY 10/03/08 - LIGATE FALLOPIAN TUBE Tubal ligation ALLERGIES Cats; Dust; Grass Pollen; Cardizem [Diltiazem]; Percocet [Oxycodone-Acetaminophen]; Zyrtec [Cetirizine Hcl] MEDICATIONS metFORMIN (GLUCOPHAGE) 500 mg tablet TWICE A DAY nystatin (NYSTOP) powder Apply 1 application to affected area four times daily. amitriptyline (ELAVIL) 25 mg tablet Take 1 tablet by mouth daily at bedtime. metFORMIN (GLUCOPHAGE) 500 mg tablet Take 1 tablet by mouth twice daily with meals. insulin glargine (BASAGLAR KWIKPEN U-100 INSULIN) 100 unit/mL (3 mL) inpn Inject 15 Units subcutaneously daily at bedtime. mometasone (ELOCON) 0.1 % cream Apply 1 application to affected area once daily. Hjooygycujwxpvj-Kyzulhgxd-CZ (BROMFED DM) 2-30-10 mg/5 mL syrup Take 5 mL by mouth four times daily as needed for up to 7 days. predniSONE (DELTASONE) 20 mg tablet Take 2 tablets by mouth once daily for 5 days. Take daily with food. albuterol HFA (PROAIR HFA) 90 mcg/actuation inhaler Inhale 2 Puffs as instructed every 4 hours as needed. COMPOUNDED PRESCRIPTION FREE STYLE ANA SENSOR1 EACHE11.65, Z79.4 Uncontrolled type 2 diabetes mellitus without complication, with long-term current use of insulin (HCC) (primary encounter diagnosis) flash glucose scanning reader (FREESTYLE ANA READER) [facility] DX:E11.65 flash glucose sensor (FREESTYLE ANA SENSOR) kit Use as directed daily. Insulin requiring. Poorly controlled diabetes mellitus pregabalin (LYRICA) 150 mg capsule Take 1 capsule by mouth three times daily for 90 days. blood sugar diagnostic (BLOOD GLUCOSE TEST) test strip Test blood sugar(s) 1 times daily. Dx: Type 2 DM - Uncontrolled E11.65 Insulin: Yes Insulin [place], Disposable, (SURE-FINE PEN NEEDLES) 31 gauge x 3/16 ndle Daily injections Lancets lancets Test blood sugar(s) once times daily. Dx: 250.00. Insulin: No blood sugar diagnostic (TRUETRACK TEST) test strip Test 1 time daily DX: E11.9 Insulin: No Blood-Glucose Meter (TRUETRACK BLOOD GLUCOSE SYSTEM) monitoring kit Test blood sugar once a day (250.00 no insulin) levonorgestrel (MIRENA) 20 mcg/24 hour (5 years) IUD 1 Each by INTRAUTERINE route continuous. FAMILY HISTORY Problem Relation Age of Onset - Heart Mother - Heart Father - Diabetes Mother - Hypertension Mother - Cancer Maternal Grandmother stomach cancer. - Arthritis Mother - Arthritis Father Social History Substance Use Topics - Smoking status: Current Every Day Smoker Packs/day: 2.00 Years: 20.00 Types: Cigarettes - Smokeless tobacco: Never Used - Alcohol use Yes Comment: occ Objective Physical Exam Constitutional: She is well-developed, well-nourished, and in no distress. HENT: Head: Normocephalic. Right Ear: Tympanic membrane, external ear and ear canal normal. Left Ear: Tympanic membrane, external ear and ear canal normal. Nose: Rhinorrhea present. Right sinus exhibits no maxillary sinus tenderness and no frontal sinus tenderness. Left sinus exhibits no maxillary sinus tenderness and no frontal sinus tenderness. Mouth/Throat: Posterior oropharyngeal erythema (PND) present. Eyes: Conjunctivae are normal. Neck: Normal range of motion. Neck supple. Cardiovascular: Normal rate, regular rhythm and normal heart sounds. Pulmonary/Chest: Effort normal. No respiratory distress. She has wheezes (fine exp wheeze). She has rhonchi (fine scattered rhonchi, clears with coughing, good air exchange). Abdominal: Soft. She exhibits no distension. There is no tenderness. Lymphadenopathy: She has no cervical adenopathy. Skin: Skin is warm and dry. No rash noted. Nursing note and vitals reviewed. ASSESSMENT/PLAN: 1. Acute bronchitis, unspecified organism - ICD9: 466.0, ICD10: J20.9 (primary diagnosis) -Prednisone -Bromfed -Albuterol inhaler PRN -F/u with pcp in 3-5 days or sooner if symptoms are not improving or worsening 2. Diarrhea, unspecified type - ICD9: 787.91, ICD10: R19.7 -reviewed viral etiology -supportive care, rest, electrolyte replacement, analgesics PRN -reviewed GUT rest and [place] diet after episode if vomiting occurs -Probiotic otc recommended -F/u with pcp in 3-5 days or sooner if symptoms are not improving or worsening Prescription instructions reviewed with patient as applicable. Patient advised if symptoms do not improve or if symptoms worsen sooner, to contact their primary care physician. Potential red flag symptoms discussed with the patient. Reviewed appropriate action plan to take if red flag symptoms occur. Patient agreeable to treatment plan. Ana Laura Cameron APRN.CNP CNOV Observed: 01/13/2018 Status: COMPLETED Source: [facility] 7:15 PM [facility] REPOSITORY Office Visit ([facility]) GINGER ARELLANO ([id number]) 1980 F Date Time Provider Department 01/13/18 7:15 PM ANA LAURA CAMERON ([employer]) WSTR During your visit today, we recorded the following information about you: Temperature Pulse Respiration Blood pressure 98.2 degrees 96/minute 14/minute 122/78 Weight 114.3 kg Ana Laura Cameron APRN.CNP 01/13/2018 7:26 PM Signed DIARRHEA Diarrhea can be caused by many different conditions. The most common cause is viral illness. Food poisoning, bacterial infection, and reactions to medicine (especially antibiotics and antacids) may also be the cause. Most of the time diarrhea improves after 2-3 days of rest and oral fluid replacement. You should drink enough clear fluids (water, sodas, Gatorade) to prevent dehydration. Adults must drink at least 2-3 quarts daily. Solid foods and dairy products must be avoided until your illness improves; then only small amounts may be included in your diet for several days. Medicine to control cramping and diarrhea may be helpful. If you have a fever or blood in the stool, however, these medicines should be avoided as they may prolong your illness. Antibiotics can speed recovery from diarrhea due to some bacterial infections, but may cause complications. Please call your doctor or the emergency department if your diarrhea does not get better in 3 days, or if you have fever, blood in the stool, vomiting, or become more dehydrated.[facility] [place] [id number] [place] [address] Emergency Department Diagnosis: Assessment ACUTE BRONCHITIS: You have acute bronchitis. This means the airway passages in your lungs are inflamed. Bronchitis may be caused by viruses or bacteria. Inhaling cigarette smoke will always make it worse. Exposure to irritating chemicals or second hand smoke as well as allergies can contribute to bronchitis. Repeat episodes of bronchitis may cause lifelong lung problems. Acute bronchitis is usually treated with rest, fluids, cough medicine, and possibly antibiotics or inhaled medicine to open up the small airways. It is very important that you avoid smoke and drink increased amounts of fluids. A cool air vaporizer can help thin bronchial secretions. This makes it easier to cough and clear your chest. If you are a cigarette smoker, consider using nicotine gum or skin patches to help you withdraw. Recovery from bronchitis is often slow, but you should start feeling better after 2-3 days of treatment. Please call your doctor or return here if you have any of the following symptoms: - Increased fever, chills, or chest pain. - Severe shortness of breath or bloody sputum. - Do not improve after 3 days of proper treatment. Ana Laura Cameron APRN.CUSTOM SHOEMAKER 01/13/2018 7:36 PM Signed Subjective HPI Patient presents with: Nasal Congestion: headache, fatigue, diarrhea Denies any otc treatment for symptoms. Current daily smoker and hx of pneumonia Review of Systems Constitutional: Positive for chills and malaise/fatigue. Negative for fever. HENT: Positive for congestion and sore throat. Negative for ear pain. Eyes: Negative for discharge and redness. Respiratory: Positive for cough. Negative for hemoptysis, sputum production, shortness of breath and wheezing. Gastrointestinal: Positive for diarrhea (x1 day, several times). Negative for abdominal pain, nausea and vomiting. Skin: Negative for rash. Neurological: Positive for headaches. PAST MEDICAL HISTORY Diagnosis Date - Anxiety 12/29/2012 - Arrhythmia - Calculus of gallbladder with other cholecystitis, without mention of obstruction - Diabetes (HCC) - Hypertension PAST SURGICAL HISTORY Procedure Laterality Date - DELIVERY ONLY , low transverse x2 - INSERTION OF IUD 03/09/2013 - LAP CHOLECYSTOENTEROSTOMY 10/04/08 - LAPAROSCOPIC CHOLEYCYSTECTOMY 10/03/08 - LIGATE FALLOPIAN TUBE Tubal ligation ALLERGIES Cats; Dust; Grass Pollen; Cardizem [Diltiazem]; Percocet [Oxycodone-Acetaminophen]; Zyrtec [Cetirizine Hcl] MEDICATIONS metFORMIN (GLUCOPHAGE) 500 mg tablet TWICE A DAY nystatin (NYSTOP) powder Apply 1 application to affected area four times daily. amitriptyline (ELAVIL) 25 mg tablet Take 1 tablet by mouth daily at bedtime. metFORMIN (GLUCOPHAGE) 500 mg tablet Take 1 tablet by mouth twice daily with meals. insulin glargine (BASAGLAR KWIKPEN U-100 INSULIN) 100 unit/mL (3 mL) inpn Inject 15 Units subcutaneously daily at bedtime. mometasone (ELOCON) 0.1 % cream Apply 1 application to affected area once daily. Dvzcwjixjemwjnx-Kvzcdgptj-DW (BROMFED DM) 2-30-10 mg/5 mL syrup Take 5 mL by mouth four times daily as needed for up to 7 days. predniSONE (DELTASONE) 20 mg tablet Take 2 tablets by mouth once daily for 5 days. Take daily with food. albuterol HFA (PROAIR HFA) 90 mcg/actuation inhaler Inhale 2 Puffs as instructed every 4 hours as needed. COMPOUNDED PRESCRIPTION FREE STYLE ANA SENSOR1 EACHE11.65, Z79.4 Uncontrolled type 2 diabetes mellitus without complication, with long-term current use of insulin ([facility]) (primary encounter diagnosis) flash glucose scanning reader (FREESTYLE ANA READER) [facility] DX:E11.65 flash glucose sensor (FREESTYLE ANA SENSOR) kit Use as directed daily. Insulin requiring. Poorly controlled diabetes mellitus pregabalin (LYRICA) 150 mg capsule Take 1 capsule by mouth three times daily for 90 days. blood sugar diagnostic (BLOOD GLUCOSE TEST) test strip Test blood sugar(s) 1 times daily. Dx: Type 2 DM - Uncontrolled E11.65 Insulin: Yes Insulin [place], Disposable, (SURE-FINE PEN NEEDLES) 31 gauge x 3/16 ndle Daily injections Lancets lancets Test blood sugar(s) once times daily. Dx: 250.00. Insulin: No blood sugar diagnostic (TRUETRACK TEST) test strip Test 1 time daily DX: E11.9 Insulin: No Blood-Glucose Meter (TRUETRACK BLOOD GLUCOSE SYSTEM) monitoring kit Test blood sugar once a day (250.00 no insulin) levonorgestrel (MIRENA) 20 mcg/24 hour (5 years) IUD 1 Each by INTRAUTERINE route continuous. FAMILY HISTORY Problem Relation Age of Onset - Heart Mother - Heart Father - Diabetes Mother - Hypertension Mother - Cancer Maternal Grandmother stomach cancer. - Arthritis Mother - Arthritis Father Social History Substance Use Topics - Smoking status: Current Every Day Smoker Packs/day: 2.00 Years: 20.00 Types: Cigarettes - Smokeless tobacco: Never Used - Alcohol use Yes Comment: occ Objective Physical Exam Constitutional: She is well-developed, well-nourished, and in no distress. HENT: Head: Normocephalic. Right Ear: Tympanic membrane, external ear and ear canal normal. Left Ear: Tympanic membrane, external ear and ear canal normal. Nose: Rhinorrhea present. Right sinus exhibits no maxillary sinus tenderness and no frontal sinus tenderness. Left sinus exhibits no maxillary sinus tenderness and no frontal sinus tenderness. Mouth/Throat: Posterior oropharyngeal erythema (PND) present. Eyes: Conjunctivae are normal. Neck: Normal range of motion. Neck supple. Cardiovascular: Normal rate, regular rhythm and normal heart sounds. Pulmonary/Chest: Effort normal. No respiratory distress. She has wheezes (fine exp wheeze). She has rhonchi (fine scattered rhonchi, clears with coughing, good air exchange). Abdominal: Soft. She exhibits no distension. There is no tenderness. Lymphadenopathy: She has no cervical adenopathy. Skin: Skin is warm and dry. No rash noted. Nursing note and vitals reviewed. ASSESSMENT/PLAN: 1. Acute bronchitis, unspecified organism - ICD9: 466.0, ICD10: J20.9 (primary diagnosis) -Prednisone -Bromfed -Albuterol inhaler PRN -F/u with pcp in 3-5 days or sooner if symptoms are not improving or worsening 2. Diarrhea, unspecified type - ICD9: 787.91, ICD10: R19.7 -reviewed viral etiology -supportive care, rest, electrolyte replacement, analgesics PRN -reviewed GUT rest and [place] diet after episode if vomiting occurs -Probiotic otc recommended -F/u with pcp in 3-5 days or sooner if symptoms are not improving or worsening Prescription instructions reviewed with patient as applicable. Patient advised if symptoms do not improve or if symptoms worsen sooner, to contact their primary care physician. Potential red flag symptoms discussed with the patient. Reviewed appropriate action plan to take if red flag symptoms occur. Patient agreeable to treatment plan. Ana Laura Cameron APRN.CUSTOM SHOEMAKER Referring Provider: SELF [[id number]] Allergies As of Date: 01/13/2018 Noted Allergy Reaction CATS 10/23/2009 4 - Hives 9 - Itching DUST 10/23/2009 Comments: environmental GRASS POLLEN 10/23/2009 9 - Itching CARDIZEM (DILTIAZEM) 07/25/2013 8 - GI Upset 11 - Vomiting PERCOCET (OXYCODONE-ACETAMINOPHEN)06/07/2016 11 - Vomiting ZYRTEC (CETIRIZINE HCL) 08/22/2013 4 - Hives Date Reviewed: 01/13/2018 Reviewed by: Teetee Maya Ma - Fully Assessed Reason for Visit: Nasal Congestion [235] Cmt: headache, fatigue, diarrhea Primary Visit Diagnosis:Acute bronchitis, unspecified organism [J20.9] Other Visit Diagnosis:Diarrhea, unspecified type [R19.7] Order(s):Arktbjgdfysnore-Ybjxxdgsw-KC (BROMFED DM) 2-30-10 mg/5 mL syrupTake 5 mL by mouth four times daily as needed for up to 7 days.Disp: 120 mLRfl: 0 predniSONE (DELTASONE) 20 mg tabletTake 2 tablets by mouth once daily for 5 days. Take daily with food.Disp: 10 tabletRfl: 0 albuterol HFA (PROAIR HFA) 90 mcg/actuation inhalerInhale 2 Puffs as instructed every 4 hours as needed.Disp: 1 InhalerRfl: 0 Prescriptions as of 01/13/2018 Sig: METFORMIN 500 MG TABLET TWICE A DAY NYSTATIN 100,000 UNIT/GRAM TO* Apply 1 application to affect* AMITRIPTYLINE 25 MG TABLET Take 1 tablet by mouth daily * METFORMIN 500 MG TABLET Take 1 tablet by mouth twice * INSULIN GLARGINE (U-100) 100 * Inject 15 Units subcutaneousl* MOMETASONE 0.1 % TOPICAL CREAM Apply 1 application to affect* BROMPHENIRAMINE-PSEUDOEPHEDRI* Take 5 mL by mouth four times* PREDNISONE 20 MG TABLET Take 2 tablets by mouth once * ALBUTEROL SULFATE HFA 90 MCG/* Inhale 2 Puffs as instructed * COMPOUNDED PRESCRIPTION FREE STYLE ANA SENSOR 1 EA* FLASH GLUCOSE SCANNING READER DX:E11.65 FLASH GLUCOSE SENSOR KIT Use as directed daily. Insuli* PREGABALIN 150 MG CAPSULE Take 1 capsule by mouth three* Patient not taking: Reported on 01/13/2018 BLOOD SUGAR DIAGNOSTIC STRIPS Test blood sugar(s) 1 times d* PEN NEEDLE, DIABETIC 31 GAUGE* Daily injections LANCETS Test blood sugar(s) once time* BLOOD SUGAR DIAGNOSTIC STRIPS Test 1 time daily DX: E11.9 * BLOOD-GLUCOSE METER KIT Test blood sugar once a day (* LEVONORGESTREL 20 MCG/24 HR (* 1 Each by INTRAUTERINE route * Problem List As Of Date 01/13/2018 Noted Resolved Essential hypertension [I10] INVALID FOR* Backache, unspecified [M54.9] INVALID FOR* Anxiety [F41.9] INVALID FOR* Brachial plexus lesions [G54.0] INVALID FOR* Chest pain, atypical [R07.89] INVALID FOR*06/07/2016 Uncontrolled type 2 diabetes mellitus without c*INVALID FOR* Pain in limb [M79.609] INVALID FOR*06/07/2016 Reflex sympathetic dystrophy [G90.50] INVALID FOR* Neuropathic pain [M79.2] INVALID FOR* RSD lower limb [G90.529] INVALID FOR* Lupus (HCC) [L93.0] INVALID FOR* More... Fibromyalgia [M79.7] INVALID FOR* Patellofemoral instability of both knees with p*INVALID FOR* Osteoarthritis of right knee [M17.11] INVALID FOR* Pain in right knee [M25.561] INVALID FOR* Dyslipidemia [E78.5] INVALID FOR* Morbid obesity with BMI of 50.0-59.9, adult (HC*INVALID FOR* Tobacco abuse [Z72.0] INVALID FOR* Primary osteoarthritis of right knee [M17.11] INVALID FOR* More... Chronic pain of right knee [M25.561, G89.29] INVALID FOR* More... Other instructions from your clinician: DIARRHEA Diarrhea can be caused by many different conditions. The most common cause is viral illness. Food poisoning, bacterial infection, and reactions to medicine (especially antibiotics and antacids) may also be the cause. Most of the time diarrhea improves after 2- 3 days of rest and oral fluid replacement. You should drink enough clear fluids (water, sodas, Gatorade) to prevent dehydration. Adults must drink at least 2-3 quarts daily. Solid foods and dairy products must be avoided until your illness improves; then only small amounts may be included in your diet for several days. Medicine to control cramping and diarrhea may be helpful. If you have a fever or blood in the stool, however, these medicines should be avoided as they may prolong your illness. Antibiotics can speed recovery from diarrhea due to some bacterial infections, but may cause complications. Please call your doctor or the emergency department if your diarrhea does not get better in 3 days, or if you have fever, blood in the stool, vomiting, or become more dehydrated.[facility] [address] [place], [place] [address] Emergency Department Diagnosis: Assessment ACUTE BRONCHITIS: You have acute bronchitis. This means the airway passages in your lungs are inflamed. Bronchitis may be caused by viruses or bacteria. Inhaling cigarette smoke will always make it worse. Exposure to irritating chemicals or second hand smoke as well as allergies can contribute to bronchitis. Repeat episodes of bronchitis may cause lifelong lung problems. Acute bronchitis is usually treated with rest, fluids, cough medicine, and possibly antibiotics or inhaled medicine to open up the small airways. It is very important that you avoid smoke and drink increased amounts of fluids. A cool air vaporizer can help thin bronchial secretions. This makes it easier to cough and clear your chest. If you are a cigarette smoker, consider using nicotine gum or skin patches to help you withdraw. Recovery from bronchitis is often slow, but you should start feeling better after 2-3 days of treatment. Please call your doctor or return here if you have any of the following symptoms: - Increased fever, chills, or chest pain. - Severe shortness of breath or bloody sputum. - Do not improve after 3 days of proper treatment. Prescriptions ordered this encounter Disp Refills Start End WKXDSKCENIIANQN-XQBJDJDNHZOGAGG-RB 2* 120 * 0 01/13/2018 01/20/2018 Route: ORAL Sig: Take 5 mL by mouth four times daily as needed for up to 7 days. PREDNISONE 20 MG TABLET 10 t* 0 01/13/2018 01/18/2018 Route: ORAL Sig: Take 2 tablets by mouth once daily for 5 days. Take daily with food. ALBUTEROL SULFATE HFA 90 MCG/ACTUATI* 1 In* 0 01/13/2018 Route: INHALATION Sig: Inhale 2 Puffs as instructed every 4 hours as needed. Disposition: Return if symptoms worsen or fail to improve. Follow-up and Disposition History Recorded Encounter Status:Closed by ANA LAURA CAMERON on 01/13/18 PROGRESS Observed: 01/11/2018 Status: COMPLETED Source: P[place] 1:40 PM [facility] [place] REPOSITORY O ID: [id number] Author: Neli Ellington Service: (none) Author Type: Physician Type: Progress Notes Filed: 01/11/2018 2:24 PM Note Text: Ginger Arellano presents today for IUD insertion for menstrual dysfunction. No LMP recorded. Patient is not currently having periods (Reason: IUD). GC/chlamydia: Not done: no risk factors and/or patient declines screening test: na- Tubal and Non IUD Side effects including irregular bleeding were discussed with the patient. She understands that it should be removed in 5 years or sooner if she desires a . IUD source: office provided IUD lot #: [id number] Exp date: 05/2020 UNIVERSAL PROTOCOL / SAFETY CHECKLIST Procedure to be performed: IUD removal and reinsertion Sign in Communication: Completed Time Out: Team Confirms the Correct Patient, Correct Procedure, Correct Site and Site Marking, Correct Position (if applicable), Prep and Dry Time (if applicable). Time: Affirmation of Time Out: YES Sign Out Discussion: Completed The uterus sounded to 9 cm and the uterus is Anteverted.. After prepping the cervix with betadine and using sterile technique, the Mirena IUD was inserted- dilator used- without difficulty and the string was cut to 2cm from the external os of the cervix. Patient tolerated procedure well. PLAN: Patient was advised to observe for signs and symptoms of infection including but not limited to fever, malodorous vaginal discharge and/or pain. She was told to check the string monthly for accurate placement. Bleeding expectations were reviewed. Follow up in one month. MD Ginger Tamez presents for removal of IUD due to expiration. UNIVERSAL PROTOCOL / SAFETY CHECKLIST Procedure to be performed: IUD removal and reinsertion Sign in Communication: Completed Time Out: Team Confirms the Correct Patient, Correct Procedure, Correct Site and Site Marking, Correct Position (if applicable), Prep and Dry Time (if applicable). Time: Affirmation of Time Out: YES Sign Out Discussion: Completed Neli Randolph MD PROCEDURE: Speculum placed in vagina, IUD string visualized and grasped with ring forceps. ASSESSMENT/PLAN: IUD removed without difficult and patient tolerated procedure well. Contraception plans: Mirena IUD Neli Randolph MD CNOV Observed: 01/11/2018 Status: COMPLETED Source: PERRY 1:30 PM [facility] REPOSITORY Office Visit (WOOB) GINGER ARELLANO ([id number]) 1980 F Date Time Provider Department 01/11/18 1:30 PM NELI MIKE WOOB During your visit today, we recorded the following information about you: Blood pressure Weight 136/80 115.7 kg Neli Randolph MD 01/11/2018 2:24 PM Signed Ginger Arellano presents today for IUD insertion for menstrual dysfunction. No LMP recorded. Patient is not currently having periods (Reason: IUD). GC/chlamydia: Not done: no risk factors and/or patient declines screening test: na- Tubal and Non IUD Side effects including irregular bleeding were discussed with the patient. She understands that it should be removed in 5 years or sooner if she desires a . IUD source: office provided IUD lot #: [id number] Exp date: 05/2020 UNIVERSAL PROTOCOL / SAFETY CHECKLIST Procedure to be performed: IUD removal and reinsertion Sign in Communication: Completed Time Out: Team Confirms the Correct Patient, Correct Procedure, Correct Site and Site Marking, Correct Position (if applicable), Prep and Dry Time (if applicable). Time: Affirmation of Time Out: YES Sign Out Discussion: Completed The uterus sounded to 9 cm and the uterus is Anteverted.. After prepping the cervix with betadine and using sterile technique, the Mirena IUD was inserted- dilator used- without difficulty and the string was cut to 2cm from the external os of the cervix. Patient tolerated procedure well. PLAN: Patient was advised to observe for signs and symptoms of infection including but not limited to fever, malodorous vaginal discharge and/or pain. She was told to check the string monthly for accurate placement. Bleeding expectations were reviewed. Follow up in one month. Neli Randolph MD Ginger Arellano presents for removal of IUD due to expiration. UNIVERSAL PROTOCOL / SAFETY CHECKLIST Procedure to be performed: IUD removal and reinsertion Sign in Communication: Completed Time Out: Team Confirms the Correct Patient, Correct Procedure, Correct Site and Site Marking, Correct Position (if applicable), Prep and Dry Time (if applicable). Time: Affirmation of Time Out: YES Sign Out Discussion: Completed Neli Randolph MD PROCEDURE: Speculum placed in vagina, IUD string visualized and grasped with ring forceps. ASSESSMENT/PLAN: IUD removed without difficult and patient tolerated procedure well. Contraception plans: Mirena IUD MD Anabel Tamez Ma 01/11/2018 1:41 PM Signed POST IUD INSTRUCTIONS You may have irregular bleeding during the first 3 months of use. You may have mild-severe cramping for the next 48 hours. You may use over the counter medication (Motrin, Tylenol) as needed. Your IUD must be removed or replaced in 3 years if you have a Chelo, 5 years if you have a Mirena or Kyleena and 10 years if you have a Paragard. Call my office for signs/symptoms of infection such as severe cramping, fever, or unusual bleeding. Check for string placement as instructed by your doctor. If you have any additional questions, please contact the office. Referring Provider: SELF [200] Allergies As of Date: 01/11/2018 Noted Allergy Reaction CATS 10/23/2009 4 - Hives 9 - Itching DUST 10/23/2009 Comments: environmental GRASS POLLEN 10/23/2009 9 - Itching CARDIZEM (DILTIAZEM) 07/25/2013 8 - GI Upset 11 - Vomiting PERCOCET (OXYCODONE-ACETAMINOPHEN)06/07/2016 11 - Vomiting ZYRTEC (CETIRIZINE HCL) 08/22/2013 4 - Hives Date Reviewed: 01/11/2018 Reviewed by: Anabel Wilson Ma - Fully Assessed Reason for Visit: Insertion Of IUD [291] IUD Removal [1950] Reason For Visit History Recorded Visit Diagnoses:Encounter for IUD insertion [Z30.430] Encounter for IUD removal [Z30.432] Order(s):INSERT INTRAUTERINE DEVICE [[id number]] Order #: [id number] REMOVE INTRAUTERINE DEVICE [[id number]] Order #: [id number] [] levonorgestrel 20 mcg/24 hr (5 years) 1 Each intrauterine device (MIRENA)Disp: Rfl: nystatin (NYSTOP) powderApply 1 application to affected area four times daily.Disp: 1 BottleRfl: 3 fluconazole (DIFLUCAN) 150 mg tabletTake 1 tablet by mouth one time only for 1 dose.Disp: 1 tabletRfl: 0 Prescriptions as of 01/11/2018 Sig: METFORMIN 500 MG TABLET TWICE A DAY COMPOUNDED PRESCRIPTION FREE STYLE ANA SENSOR 1 EA* FLASH GLUCOSE SCANNING READER DX:E11.65 AMITRIPTYLINE 25 MG TABLET Take 1 tablet by mouth daily * FLASH GLUCOSE SENSOR KIT Use as directed daily. Insuli* INSULIN GLARGINE (U-100) 100 * Inject 15 Units subcutaneousl* MOMETASONE 0.1 % TOPICAL CREAM Apply 1 application to affect* BLOOD SUGAR DIAGNOSTIC STRIPS Test blood sugar(s) 1 times d* PEN NEEDLE, DIABETIC 31 GAUGE* Daily injections LANCETS Test blood sugar(s) once time* BLOOD SUGAR DIAGNOSTIC STRIPS Test 1 time daily DX: E11.9 * BLOOD-GLUCOSE METER KIT Test blood sugar once a day (* LEVONORGESTREL 20 MCG/24 HR (* 1 Each by INTRAUTERINE route * NYSTATIN 100,000 UNIT/GRAM TO* Apply 1 application to affect* FLUCONAZOLE 150 MG TABLET Take 1 tablet by mouth one ti* METFORMIN 500 MG TABLET Take 1 tablet by mouth twice * PREGABALIN 150 MG CAPSULE Take 1 capsule by mouth three* Problem List As Of Date 01/11/2018 Noted Resolved Essential hypertension [I10] INVALID FOR* Backache, unspecified [M54.9] INVALID FOR* Anxiety [F41.9] INVALID FOR* Brachial plexus lesions [G54.0] INVALID FOR* Chest pain, atypical [R07.89] INVALID FOR*06/07/2016 Uncontrolled type 2 diabetes mellitus without c*INVALID FOR* Pain in limb [M79.609] INVALID FOR*06/07/2016 Reflex sympathetic dystrophy [G90.50] INVALID FOR* Neuropathic pain [M79.2] INVALID FOR* RSD lower limb [G90.529] INVALID FOR* Lupus (HCC) [L93.0] INVALID FOR* More... Fibromyalgia [M79.7] INVALID FOR* Patellofemoral instability of both knees with p*INVALID FOR* Osteoarthritis of right knee [M17.11] INVALID FOR* Pain in right knee [M25.561] INVALID FOR* Dyslipidemia [E78.5] INVALID FOR* Morbid obesity with BMI of 50.0-59.9, adult (HC*INVALID FOR* Tobacco abuse [Z72.0] INVALID FOR* Primary osteoarthritis of right knee [M17.11] INVALID FOR* More... Chronic pain of right knee [M25.561, G89.29] INVALID FOR* More... Other instructions from your clinician: POST IUD INSTRUCTIONS You may have irregular bleeding during the first 3 months of use. You may have mild-severe cramping for the next 48 hours. You may use over the counter medication (Motrin, Tylenol) as needed. Your IUD must be removed or replaced in 3 years if you have a Chelo, 5 years if you have a Mirena or Kyleena and 10 years if you have a Paragard. Call my office for signs/symptoms of infection such as severe cramping, fever, or unusual bleeding. Check for string placement as instructed by your doctor. If you have any additional questions, please contact the office. Prescriptions ordered this encounter Disp Refills Start End LEVONORGESTREL 20 MCG/24 HR (5 YEARS* 01/11/2018 01/11/2018 Route: INTRAUTERINE NYSTATIN 100,000 UNIT/GRAM TOPICAL P* 1 James* 3 01/11/2018 Route: TOPICAL Sig: Apply 1 application to affected area four times daily. FLUCONAZOLE 150 MG TABLET 1 ta* 0 01/11/2018 01/11/2018 Route: ORAL Sig: Take 1 tablet by mouth one time only for 1 dose. Disposition: Return if symptoms worsen or fail to improve, for Routine annual exam. Follow-up and Disposition History Recorded Encounter Status:Closed by NELI ELLINGTON MD on 01/11/18 EMERGENCY DEPARTMENT Observed: 12/17/2017 Status: F Source: [place] SUMMARY 6:38 AM [facility] RE[facility] Medical Records Department [address] [place] [address] Emergency Department Summary 12/17/17 0504 MR#: [id number] Acct: [id number] Name: GINGER ARELLANO Rep #: [id number] : 1980 37 From: Daja Moreno MD PCP: Eldon Ortiz MD Status: DEP ER - ER Visit Summary Date of Service: 12/17/17 Chief Complaint: Back pain History of Present Illness: The patient is a 37 F with history of chronic back pain who presents for 2 days of right lower back pain. 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 Since then she is developed sharp left lower back pain that is worse with laying down and improves with standing. She has tried lidocaine patches and ibuprofen without relief. Pain is constant. She denies any fever, abdominal pain, nausea or vomiting, dysuria, hematuria, bowel or bladder incontinence or retention, or any other complaints. No numbness or weakness in the arms or legs. Patient has history of fibromyalgia and was in pain management up until 6 months ago for that. She has not had issues with her chronic back pain since receiving a nerve block in 2014. Physical Examination: Vital signs: afebrile, hemodynamically stable, no hypoxia on room air General: well nourished, well developed, morbidly obese, in no distress Skin: warm, dry, no rash, no pallor HEENT: normocephalic and atraumatic; PERRL, EOMI, moist mucous membranes Cardiovascular: regular rate and rhythm without murmurs, no peripheral edema, 2+ pulses all distal extremities Respiratory: No increased work of breathing, lungs are clear to auscultation bilaterally, no rales, rhonchi or wheezing Abdominal: Abdomen is soft, nontender with normoactive bowel sounds, no guarding or rebound, no masses MSK: Moves all extremities, no deformities, normal strength, redness to the paraspinal musculature in the right lumbar region, no midline tenderness, step-offs or deformities. No skin induration, erythema or swelling. Straight leg raise negative in the sitting position. Neuro: Awake and alert, oriented 4. No facial droop, sensation and motor function intact and symmetric Test Results: [] Emergency Department Course and Treatment: Patient has no red flag symptoms concerning for cauda equina syndrome or emergent spinal pathology. She was witnessed ambulating without difficulty. Patient was given Norflex and Toradol in the emergency department and a prescription for Flexeril and naproxen. She will not use ibuprofen while on the naproxen. She is to follow-up with her primary care doctor if she is not having improvement in 1-2 weeks. Patient agreed with this plan and was discharged home. Treatment Plan: [] Disposition: [] Impression: Acute lumbar muscle strain This note was generated with [employer] dictation software. It may contain incorrect words, spelling, and punctuation that were not noted in review of the chart prior to signing ED Disposition - Plan for ED Patient: Disposition: Home or Assisted Living Chief Complaint: Back Instructions: ED Spasm Back No Trauma, ED Sprain Strain Lumbar Prescriptions: Naproxen [Naprosyn] 500 mg PO BID PRN #20 tab Cyclobenzaprine [Flexeril] 10 mg PO TID PRN #20 tab PRN Reason: Muscle Spasm Referrals: Eldon Ortiz MD [Primary Care Provider] - 10-14 Days if not better What to do if you have Problems For any increased pain, shortness of breath, bleeding, nausea or vomiting, chest pain, or any unexpected problems, contact your Primary Care Provider. Call [facility] ([phone]) or report to the closest Emergency Room. Call 911 if necessary. 08/25/18 0638 <Electronically signed by Daja Moreno MD> Date Daja Moreno MD Cosigner Signature (If Indicated): Date _ CC: Eldon Ortiz MD DISCHARGE INSTRUCTION Observed: 12/17/2017 Status: F Source: [place] 6:38 AM [facility] Medical Records Department [address] [place] [address] Discharge Instruction 12/17/17 0505 MR#: [id number] Acct: [id number] Name: GINGER ARELLANO Rep #: [id number] : 1980 37 From: Daja Moreno MD PCP: Eldon Ortiz MD Status: DEP ER ED Disposition - Plan for ED Patient: Disposition: Home or Assisted Living Chief Complaint: Back Instructions: ED Spasm Back No Trauma, ED Sprain Strain Lumbar Prescriptions: Naproxen [Naprosyn] 500 mg PO BID PRN #20 tab Cyclobenzaprine [Flexeril] 10 mg PO TID PRN #20 tab PRN Reason: Muscle Spasm Referrals: Eldon Ortiz MD [Primary Care Provider] - 10-14 Days if not better What to do if you have Problems For any increased pain, shortness of breath, bleeding, nausea or vomiting, chest pain, or any unexpected problems, contact your Primary Care Provider. Call [facility] ([phone]) or report to the closest Emergency Room. Call 911 if necessary. 12/17/17637 <Electronically signed by Daja Moreno MD> Date Daja Moreno MD Cosigner Signature (If Indicated): Date CC: Eldon Ortiz MD EMERGENCY DEPARTMENT Observed: 12/06/2017 Status: F Source: ANNI SUMMARY 8:47 PM [facility] Medical Records Department [address] [place] [address] Emergency Department Summary 12/06/17 1802 MR#: [id number] Acct: [id number] Name: GINGER ARELLANO Rep #: [id number] : 1980 37 From: Flavio Kunz DO PCP: Eldon Ortiz MD Status: REG ER - ER Visit Summary Date of Service: 12/06/17 Chief Complaint: Hyperglycemia History of Present Illness: The patient is a 37 F who presents with weakness and fatigue that has been getting worse throughout the day. Patient states this feels similar to prior episodes of hypoglycemia. Patient does not have a glucose monitor at home to check her blood sugar. Patient admits to a frontal headache. Patient admits to subjective fevers. Patient denies any chest pain or shortness of breath. Patient denies any dysuria, hematuria, or frequency. Patient denies any nausea or vomiting. Patient denies abdominal pain. Physical Examination: Vital signs are stable except for mildly elevated blood pressure 167/107. Patient is in no acute distress. Patient is afebrile. Oral mucosa is pink and moist. Neck is supple. Trachea is midline. There is no JVD noted. Heart was regular rate and rhythm. Lungs are clear and equal bilaterally. Abdomen is soft. Bowel sounds are normal. There is no tenderness. There is no rebound or guarding noted. Cranial nerves II through XII are intact. There are no focal motor or sensory deficits noted. The remaining physical exam is within normal limits. Test Results: Initial BGT was 337. Urinalysis showed 10-25 white blood cells with a leukocyte esterase of 500. There is 0-5 trichomonas on urinalysis. CBC was normal. Serum glucose was 323. Serum ketones were negative. Emergency Department Course and Treatment: Patient was given a dose of Humalog here. Patient was given a dose of Flagyl here. Patient was given prescription for Bactrim. Patient was instructed to follow-up with her primary care physician in 5-7 days. Patient understood and was agreeable with the plan. All questions were answered. Disposition: Discharge home Impression: Urinary tract infection This note was generated with [employer] dictation software. It may contain incorrect words, spelling, and punctuation that were not noted in review of the chart prior to signing ED Disposition - Plan for ED Patient: Disposition: Home or Assisted Living Chief Complaint: Hyperglycemia Diagnosis: Urinary tract infection, Hyperglycemia, Diabetes Instructions: ED Hyperglycemia Diabetic, ED UTI Cystitis Female Prescriptions: Smz/Tmp Ds [Bactrim Ds] 1 tab PO BID #6 tab Referrals: Eldon Ortiz MD [Primary Care Provider] - What to do if you have Problems For any increased pain, shortness of breath, bleeding, nausea or vomiting, chest pain, or any unexpected problems, contact your Primary Care Provider. Call [facility] ([phone]) or report to the closest Emergency Room. Call 911 if necessary. 12/06/172046 <Electronically signed by Flavio Kunz DO> Date Flavio Kunz DO Cosigner Signature (If Indicated): Date CC: Eldon Ortiz MD BEDSIDE GLUCOSE Collected: 12/06/2017 Status: F Source: ANNI 8:30 PM [facility] TYPE CODE TESTS RESULT OUT OF REFERENCE UNITS RANGE LAB L501.080 70-110 mg/dL High BEDSIDE GLU 152 Result Comment: MANAGEMENT OF PATIENT CARE PER NURSING PROTOCOL Performed By: #### L501.080 #### [facility] Point of Care [address] [place] [address] URINALYSIS, COMPLETE Collected: 12/06/2017 Status: F Source: ANNI 6:31 PM [facility] Order Comment: Has pt arrived? Y How was Urine Obtained? CLEAN CATCH TYPE CODE TESTS RESULT OUT OF REFERENCE UNITS RANGE LAB L400.3000 Yellow COLOR Normal Straw LAB L400.3050 Clear CLARITY Normal Cloudy LAB L400.3200 Normal mg/dl GLUCOSE, UR High 1000 LAB L400.3300 Negative mg/dL BILIRUBIN Normal URINE Negative LAB L400.3400 Negative mg/dl KETONE UR Normal Negative LAB L400.3465 1.002-1.030 SP.GR. Normal DIPSTX 1.010 LAB L400.3550 5.0 - 8.0 pH UR Normal 7.0 LAB L400.3600 Negative mg/dl PROT DIPSTX Normal Negative LAB L400.3700 Normal mg/dl UROBILI Normal Normal LAB L400.3750 Negative NITRITE UR Normal Negative LAB L400.3780 Negative /ul OCCULT High BLOOD-UR 10 LAB L400.3800 Negative /ul LEUK High ESTERASE 500 LAB L400.4050 0-5 /hpf WBC Normal 10-25 SEEN LAB L400.4100 0-5 /hpf RBC-UA Normal 0 SEEN LAB L400.4150 5-10 /hpf SQUAM EPI Normal 0-5 SEEN LAB L400.4300 None Seen /hpf BACTERIA Normal 0 SEEN LAB L400.4350 <or=2+ /hpf MUCUS, Normal URINE 0 SEEN LAB L400.5100 None Seen /hpf TRICHOMONAS Normal 0-5 SEEN Result Comment: CALLED TO ERIKA 12/06/17 AT 1945 BY JENA Performed By: #### L400.0001 #### [facility] [address] [place], [address] BASIC METABOLIC Collected: 12/06/2017 Status: F Source: [place] PROFILE ([facility]) 6:16 PM [facility] TYPE CODE TESTS RESULT OUT OF RANGE REFERENCE UNITS LAB L501.0100 74-106 mg/dL High GLU 323 Result Comment: Glucose result greater than or equal to 200 mg/dL suggests DIABETES MELLITUS per A.D.A. criteria. Please note revised GLUCOSE reference range effective 2017. LAB L501.1000 7-18 mg/dL Normal BUN 7 LAB L501.1100 0.55-1.02 mg/dL Normal CREAT,SERUM 0.69 Result Comment: The validity of the calculated GFR AND GFRAA in patients over 70 years has not been determined. Clinical correlation is essential. LAB L501.1110 >60 mL/min Normal EST GFR 102 Result Comment: Non- GFR Calc LAB L501.1115 >60 mL/min Normal EST GFR - AA 123 Result Comment: GFR Calc LAB L501.1255 ml/min Normal Estimated CRCL 100.45 LAB L501.1300 10-20 RATIO BUN/CRE Normal 10.2 LAB L501.2200 8.5-10 mg/dL .1 CA Normal 8.6 LAB L501.5300 136-14 mmol/L 5 NA Normal 139 LAB L501.5600 3.5-5. mmol/L 1 K Normal 3.9 LAB L501.5900 98-107 mmol/L CL Normal 106 LAB L501.6100 21.0-3 mmol/L 2.0 CO2 Normal 27.0 LAB L501.6200 5-15 GAP Normal 6 Performed By: #### L500.2500 #### [facility] [address] [place], [address] CBC W/DIFF, AUTOMATED Collected: 12/06/2017 Status: F Source: [place] 6:16 PM [facility] TYPE CODE TESTS RESULT OUT OF RANGE REFERENCE UNITS LAB L100.1000 4.4-11.0 K/mm3 Normal WBC 5.8 LAB L100.1200 4.2-5.4 M/mm3 Normal RBC 4.38 LAB L100.1300 12.0-15.0 g/dl Normal HGB 13.7 LAB L100.1400 37-47 % Normal HCT 39.4 LAB L100.1500 81-99 fL Normal MCV 90.0 LAB L100.1600 27.0-32.0 pg Normal MCH 31.3 LAB L100.1700 32-36 g/gl Normal MCHC 34.8 LAB L100.1810 11.6-14.6 % Normal RDW CV 13.9 LAB L100.1820 35.1-43.9 fl High RDW SD 45.1 LAB L100.1900 150-450 K/mm3 Normal PLT 212 LAB L100.2000 6.2-12.0 fl Normal MPV 9.6 LAB L100.2100 47-70 % Normal NEUT% 58.4 LAB L100.2200 19-41 % Normal LY% 32.6 LAB L100.2300 0-10 % Normal MONO% 6.3 LAB L100.2400 0-5 % Normal EO% 2.4 LAB L100.2500 0-1 % Normal BASO% 0.3 LAB L100.2550 0.0-0.9 % Normal IM GRAN % 0.000 Result Comment: IG% - Immature Granulocytes (promyelocytes, myelocytes and metamyelocytes) > 1% indicates that a LEFT SHIFT is Present. LAB L100.2620 2.0-7.7 X10 3/uL Normal Absolute Neut 3.4 LAB L100.2720 0.83-4.51 X10 3/ul Normal Absolute Lymph 1.90 Performed By: #### L100.0100 #### [facility] [address] [facility] [place], [address] ACETONE SERUM Collected: 12/06/2017 Status: F Source: [place] 6:16 PM [facility] TYPE CODE TESTS RESULT OUT OF RANGE REFERENCE UNITS LAB L501.6900 NEG Normal ACETONE SERUM NEGATIVE Performed By: #### L501.6900 #### [facility] [address] [facility] [place], [address] BEDSIDE GLUCOSE Collected: 12/06/2017 Status: F Source: [place] 5:49 PM [facility] TYPE CODE TESTS RESULT OUT OF REFERENCE UNITS RANGE LAB L501.080 70-110 mg/dL High BEDSIDE GLU 337 Result Comment: MANAGEMENT OF PATIENT CARE PER NURSING PROTOCOL Performed By: #### L501.080 #### [facility] Point of Care [address] [place] [address] SED RATE WESTERGREN Collected: 10/24/2017 Status: F Source: PERRY 11:26 AM [facility] REPOSITORY TYPE CODE TESTS RESULT OUT OF REFERENCE UNITS RANGE LAB WSR 0-20 mm/hr Sed Rate High Westergren 26 Performed By: #### WSR, CMP, CRP, LIPB, RF, HBA1C, TSH, ANAIFS #### [facility] [address] [place], [place] [address] COMP METABOLIC PANEL Collected: 10/24/2017 Status: F Source: PERRY 11:26 AM [facility] REPOS[facility] TYPE CODE TESTS RESULT OUT OF REFERENCE UNITS RANGE LAB TP 6.3-8.0 g/dL Protein, Total 7.3 LAB ALB 3.9-4.9 g/dL Low Albumin 3.7 LAB CA 8.5-10.2 mg/dL Calcium, Total 9.2 LAB TBIL 0.2-1.3 mg/dL Low Bilirubin, Total <0.2 LAB ALKP 32-117 U/L Alkaline Phosphatase 110 LAB AST 13-35 U/L AST 18 LAB GLU 74-99 mg/dL Glucose High 416 Result Comment: The [place] Diabetes Association (ADA) provides guidance for cutoff values for fasting glucose and random glucose. The ADA defines fasting as no caloric intake for at least 8 hours. Fas ting plasma glucose results between 100 to 125 mg/dL indicate increased risk for diabetes (prediabetes). Fasting plasma glucose results greater than or equal to 126 mg/dL meet the criteria for diagnosis of diabetes. In the absence of unequivocal hyperglycemia, results should be confirmed by repeat testing. In a patient with classic symptoms of hyperglycemia or hyperglycemic crisis, random plasma glucose results greater than or equal to 200 mg/dL meet the criteria for diagnosis of diabetes. Reference: Standards of Medical Care in Diabetes 2016, [place] [employer] Association. Diabetes Care. 2016.39(Suppl 1). LAB BUN 7-21 mg/dL BUN 10 LAB CRET 0.58-0.96 mg/dL Creatinine 0.60 LAB NA 136-144 mmol/L Sodium Low 135 LAB K 3.7-5.1 mmol/L Potassium 4.4 LAB CL 97-105 mmol/L Chloride 101 LAB CO2 22-30 mmol/L CO2 Low 20 LAB AGAP 9-18 mmol/L Anion Gap 14 LAB ALT 7-38 U/L ALT 19 LAB GFRAA eGFR- Amer. >60 LAB GFRNAA . eGFR-All Other Races >60 Result Comment: eGFR (Estimated GFR) Units of measure: mL/min/1.73 meters squared eGFR is derived from the reexpressed MDRD Study equation using the following parameters: serum creatinine, age, gender and race. The creatinine assay has been calibrated to be traceable to [employer] [place]. An eGFR <60 mL/min/1.73m2 for >3 months is consistent with chronic kidney disease. Refer to KDOQI guidelines for clinical interpretation. In patients with unstable renal function, e.g. those with acute kidney injury, the eGFR may not accurately reflect actual GFR. Performed By: #### WSR, CMP, CRP, LIPB, RF, HBA1C, TSH, ANAIFS #### [facility] [address] [place], [place] [address] C-REACTIVE PROTEIN Collected: 10/24/2017 Status: F Source: PERRY 11:26 AM [facility] REPOSITORY TYPE CODE TESTS RESULT OUT OF REFERENCE UNITS RANGE LAB CRP <0.9 mg/dL High C-Reactive 2.0 Protein Performed By: #### WSR, CMP, CRP, LIPB, RF, HBA1C, TSH, ANAIFS #### [facility] [address] [place], [place] [address] LIPID PANEL, BASIC Collected: 10/24/2017 Status: F Source: PERRY 11:26 AM [facility] REPOS[facility] TYPE CODE TESTS RESULT OUT OF REFERENCE UNITS RANGE LAB CHOL <200 mg/dL Cholesterol 161 Result Comment: <200 mg/dL, Desirable 200-239 mg/dL, Borderline high >239 mg/dL, High LAB TRIGLY <150 mg/dL Triglyceride High 171 Result Comment: <150 mg/dL, Normal 150-199 mg/dL, Borderline high 200-499 mg/dL, High >499 mg/dL, Very high LAB HDL >39 mg/dL HDL-Cholesterol Low 23 Result Comment: 40-59 mg/dL, Acceptable >59 mg/dL, High: Negative risk factor for coronary heart disease <40 mg/dL, Low: Positive risk factor for coronary heart disease LAB LDL <100 mg/dL LDL-Cholesterol High 104 Result Comment: <100 mg/dL, Optimal 100-129 mg/dL, Near optimal/above optimal 130-159 mg/dL, Borderline high 160-189 mg/dL, High >189 mg/dL, Very high Secondary prevention optimal LDL Cholesterol levels are recommended to be < 70 mg/dL LAB NONHDL <130 mg/dL Non HDL High Cholesterol 138 Result Comment: <130 mg/dL, Optimal 130-159 mg/dL, Near optimal/above optimal 160-189 mg/dL, Borderline high 190-219 mg/dL, High >219 mg/dL, Very high Secondary prevention optimal non HDL Cholesterol levels are recommended to be < 100 mg/dL LAB FT hrs Fasting Time 10 LAB VLDL <30 mg/dL High VLDL Cholesterol 34 LAB TCHDL <5.10 High TC:HDL Ratio 7.00 LAB LDLHDL <2.54 High LDL:HDL Ratio 4.52 Result Comment: Reference: 1. National Cholesterol Education Program ATP III Guideline At-A-Glance Quick Desk Reference: National Heart, Lung, and Blood [place]. National Institutes of Health. 2001: NIH Publication No. 01-3305. 2. An International Atherosclerosis Society position paper: global recommendations for the management of dyslipidemia: executive summary, Atherosclerosis. 2014: 232(2):410-413. Performed By: #### WSR, CMP, CRP, LIPB, RF, HBA1C, TSH, ANAIFS #### [facility] [address] [address] [place] [id number] RHEUMATOID FACTOR Collected: 10/24/2017 Status: F Source: PERRY 11:26 AM [facility] REPOSITORY TYPE CODE TESTS RESULT OUT OF REFERENCE UNITS RANGE LAB RF <16 IU/mL Rheumatoid <10 Factor Performed By: #### WSR, CMP, CRP, LIPB, RF, HBA1C, TSH, ANAIFS #### [facility] [address] [place] [address] HEMOGLOBIN A1C Collected: 10/24/2017 Status: F Source: PERRY 11:26 AM [facility] REPOSITORY TYPE CODE TESTS RESULT OUT OF REFERENCE UNITS RANGE LAB HGBA1C 4.3-5.6 % High Hemoglobin A1c 10.0 LAB HBA0 mg/dL Est. Average Glucose 240 Result Comment: eAG: (Estimated average glucose) is a calculated value from HgbA1c and is medical service representative of the average blood glucose level in the last 2-3 month period. Performed By: #### WSR, CMP, CRP, LIPB, RF, HBA1C, TSH, ANAIFS #### [facility] [address] [place], [place] [address] TSH Collected: 10/24/2017 Status: F Source: PERRY 11:26 AM [facility] REPOSITORY TYPE CODE TESTS RESULT OUT OF RANGE REFERENCE UNITS LAB TSH 0.400-5.500 uU/mL TSH 0.711 Result Comment: If the patient is , TSH reference range varies by gestational period: First Trimester 0.100-2.500 uU/mL Second Trimester 0.200-3.000 uU/mL Third Trimester 0.300-3.000 uU/mL References: 1. De Tara L, Domenico M, Angelo EK, et al. Management of Thyroid Dysfunction during and : An Endocrine Society Clinical Practice Guideline. J Clin Endocrinol Metab, 2012:97:0663-5299. 2. Baldev [place]. Overview of thyroid disease in . UpToDate. 2016. Accessed on October 10, 2015. Performed By: #### WSR, CMP, CRP, LIPB, RF, HBA1C, TSH, ANAIFS #### [facility] [address] [address] [place], [place] [address] GIANCARLO BY IFA Collected: 10/24/2017 Status: F Source: PERRY 11:26 AM [facility] REPOSITORY TYPE CODE TESTS RESULT OUT OF REFERENCE UNITS RANGE LAB ANASC Negative GIANCARLO Negative Result Comment: Normal range : negative at <1:80 serum dilution. Approximately 6% of patients with connective tissue diseases with low positive EIA values are negative by IFA. Recommend follow-up with specific antinuclear antibodies if clinically indicated. LAB DONNELL Negative Negative GIANCARLO Titer Result Comment: Normal range : negative at <1:80 serum dilution. LAB ANAP GIANCARLO Not applicable Pattern for negative result. Performed By: #### WSR, CMP, CRP, LIPB, RF, HBA1C, TSH, ANAIFS #### [facility] [address] [address] [place], [place] [address] PROGRESS Observed: 10/24/2017 Status: COMPLETED Source: PERRY 10:53 AM [facility] REPOSITORY O ID: [id number] Author: Eldon Ortiz Service: (none) Author Type: Physician Type: Progress Notes Filed: 10/24/2017 11:19 AM Note Text: Patient presents with: vaginal irritation: itching burning HPI: Patient presents today for office visit for follow up. Has been to ob gyn multiple times in the past for recurrent vaginitis. She was told he urine culture was negative. Was given a diflucan. She took first one. It is slightly better. Still has another to use. She quit her meds for a while. Discussed risks of uncontrolled diabetes. She feels getting back on her meds has helped symptoms more than anything else. She misunderstood the results on her urine which is why she came in. No current blood. Has not checked her sugars. No chest pain or shortness of breath. Just saw eye Tuesday. Has cataracts. Was diagnosed with lupus. Has not seen them for some time. Worsening rashes. Component Latest Ref Rng AND Units 10/24/2017 Glucose, Urine Neg mg/dL 2,000 Bilirubin, Urine Neg neg Ketones, Urine Neg neg Specific [place], Ur 1.005 - 1.030 1.020 Hemoglobin/Blood,Ur Neg neg pH, Urine 4.5 - 8.0 6.0 Protein, Urine Neg mg/dL neg Urobilinogen, Urine Normal (<1.1) EU normal Nitrites Neg neg Leukocytes Neg neg Color/Appearance comment: yellow/clear Quality Check yes/no Yes MEDICATIONS: Current Outpatient Prescriptions: insulin glargine (BASAGLAR KWIKPEN U-100 INSULIN) 100 unit/mL (3 mL) inpn Inject 15 Units subcutaneously daily at bedtime. levonorgestrel (MIRENA) 20 mcg/24 hour (5 years) IUD 1 Each by INTRAUTERINE route continuous. metFORMIN (GLUCOPHAGE) 500 mg tablet Take 1 tablet by mouth twice daily with meals. (Patient not taking: Reported on 10/24/2017 ) mometasone (ELOCON) 0.1 % cream Apply 1 application to affected area once daily. blood sugar diagnostic (BLOOD GLUCOSE TEST) test strip Test blood sugar(s) 1 times daily. Dx: Type 2 DM - Uncontrolled E11.65 Insulin: Yes pregabalin (LYRICA) 150 mg capsule Take 1 capsule by mouth three times daily. (Patient not taking: Reported on 10/24/2017 ) Insulin [place], Disposable, (SURE-FINE PEN NEEDLES) 31 gauge x 3/16 ndle Daily injections Lancets lancets Test blood sugar(s) once times daily. Dx: 250.00. Insulin: No blood sugar diagnostic (TRUETRACK TEST) test strip Test 1 time daily DX: E11.9 Insulin: No Blood-Glucose Meter (TRUETRACK BLOOD GLUCOSE SYSTEM) monitoring kit Test blood sugar once a day (250.00 no insulin) No current facility-administered medications for this visit. ALLERGIES: ALLERGIES Allergen Reactions - Cats Hives, Itching - Dust environmental - Grass Pollen Itching - Cardizem [Diltiazem] GI Upset, Vomiting - Percocet [Oxycodone* Vomiting - Zyrtec [Cetirizine * Hives PAST MEDICAL HISTORY Diagnosis Date - Anxiety 12/29/2012 - Arrhythmia - Calculus of gallbladder with other cholecystitis, without mention of obstruction - Diabetes (HCC) - Hypertension PAST SURGICAL HISTORY Procedure Laterality Date - DELIVERY ONLY , low transverse x2 - INSERTION OF IUD 03/09/2013 - LAP CHOLECYSTOENTEROSTOMY 10/04/08 - LAPAROSCOPIC CHOLEYCYSTECTOMY 10/03/08 - LIGATE FALLOPIAN TUBE Tubal ligation FAMILY HISTORY Problem Relation Age of Onset - Heart Mother - Heart Father - Diabetes Mother - Hypertension Mother - Cancer Maternal Grandmother stomach cancer. - Arthritis Mother - Arthritis Father Social History Marital status: Single Spouse name: Years of education: Number of children: 3 Social History Main Topics Smoking status: Current Every Day Smoker Packs/day: 2.00 Years: 20.00 Types: Cigarettes Smokeless tobacco: Never Used Alcohol use: Yes Comment: occ Drug use: No Sexual activity: Yes Partners with: Male control/protection: Tubal Ligation Comment: Mirena inserted 03/09/2013 Social History Narrative Lives with boyfriend. 3 children one of whom lives with her. Reviewed current medications, allergies, past medical history, surgical history, family history and social history today. REVIEW OF SYSTEMS All other reviewed and negative other than HPI. HEALTH MAINTENANCE: Reviewed health maintenance issues today and recommended the following in detail. VITALS: BP 112/82 Pulse 88 Resp 14 Wt 114.3 kg (252 lb) BMI 40.99 kg/m? Last 4 Encounter Wt Readings: Date: Wt: 10/24/2017 114.3 kg (252 lb) 10/20/2017 114.7 kg (252 lb 12.8 oz) 09/22/2017 114.3 kg (252 lb) 07/28/2017 118.8 kg (261 lb 12.8 oz) PHYSICAL EXAMINATION: General appearance: alert Skin: pink paplular rashes. Head: Normocephalic, no masses, lesions, tenderness or abnormalities Lungs: Lungs clear to auscultation. No wheezing, rhonchi, rales Heart: RRR without murmur, gallop, or rubs. No ectopy Abdomen: Normal abdominal exam, Abdomen soft, non-tender. Bowel sounds normal. No masses, organomegaly Extremities: No deformities, edema, skin discoloration, clubbing or cyanosis. Good capillary refill. ASSESSMENT/PLAN: 1. Vaginal irritation - ICD9: 623.9, ICD10: N89.8 (primary diagnosis) - is actually improving. Continue to treat. Call if symptoms worsen at all or if not better in one to two weeks - UA DIP B/O 2. Uncontrolled type 2 diabetes mellitus without complication, with long-term current use of insulin (HCC) - ICD9: 250.02, V58.67, ICD10: E11.65, Z79.4 uncontrolled Poor adherence to plan of care. - Resume meds. Check labs. Consider pharmacy. - METFORMIN 500 MG TABLET - HGB A1C - FLASH GLUCOSE SENSOR KIT 3. Essential hypertension - ICD9: 401.9, ICD10: I10 - good control - Goal of BP <140/90 4. Reflex sympathetic dystrophy - ICD9: 337.20, ICD10: G90.50 - follow prorress - SED RATE WESTERGREN - C-REACTIVE PROTEIN (CRP) 5. Dyslipidemia - ICD9: 272.4, ICD10: E78.5 - to be determined upon return of lab results - Continue current medication. - COMP METABOLIC PANEL - LIPID PANEL BASIC 6. Tobacco abuse - ICD9: 305.1, ICD10: Z72.0 - Cessation encouraged. - Physiologic and physical aspects of tobacco addiction as well as strategies for quitting were discussed. - Counseling was given focusing on the harmful effects of this addiction especially given the patient's medical condition(s) which will be worsened because of the chemicals in tobacco. 7. Morbid obesity with BMI of 50.0-59.9, adult ([facility]) - ICD9: 278.01, V85.43, ICD10: E66.01, Z68.43 - work on weight reduction. 8. Complex regional pain syndrome type 1 of right lower extremity - ICD9: 337.22, ICD10: G90.521 9. Lupus erythematosus, unspecified form - ICD9: 695.4, ICD10: L93.0 - consider going back to rheum. - GIANCARLO BY IFA SCREEN - RHEUMATOID FACTOR BL 10. Neuropathic pain - ICD9: 729.2, ICD10: M79.2 - oarrs done. Discussed risks and benefits of new medication with the patient. Advised them to call if any side effects or questions. - PREGABALIN 150 MG CAPSULE Eldon Ortiz MD RTO in four weeks. and prn. CNOV Observed: 10/24/2017 Status: COMPLETED Source: [facility] 10:20 AM [facility] REPOS[facility] ARELLANOGINGER ([id number]) 1980 F Date Time Provider Department 10/24/17 10:20 AM ELDON ORTIZ [facility] During your visit today, we recorded the following information about you: Pulse Respiration Blood pressure Weight 88/minute 14/minute 112/82 114.3 kg Carri Quinones TEST OPERATOR 10/24/2017 10:42 AM Signed Urgent care FOLLOW UP: Reason for visit: vaginal irritation Which facility: [facility] [place] Date of visit: 10/20/17 Diagnosis: glucosuria Testing done: urine culture Treatment given: Diflucan X 2 (has taken one) Current symptoms: vaginal irritation Diabetes: Is interested in getting a CGM. Advised that needs to see endo to do this. Just got back on her insulin last week. Hasn't been using Lyrica but would like to get started. Eldon Ortiz MD 10/24/2017 11:19 AM Signed Patient presents with: vaginal irritation: itching burning HPI: Patient presents today for office visit for follow up. Has been to ob gyn multiple times in the past for recurrent vaginitis. She was told he urine culture was negative. Was given a diflucan. She took first one. It is slightly better. Still has another to use. She quit her meds for a while. Discussed risks of uncontrolled diabetes. She feels getting back on her meds has helped symptoms more than anything else. She misunderstood the results on her urine which is why she came in. No current blood. Has not checked her sugars. No chest pain or shortness of breath. Just saw eye Tuesday. Has cataracts. Was diagnosed with lupus. Has not seen them for some time. Worsening rashes. Component Latest Ref Rng AND Units 10/24/2017 Glucose, Urine Neg mg/dL 2,000 Bilirubin, Urine Neg neg Ketones, Urine Neg neg Specific [place], Ur 1.005 - 1.030 1.020 Hemoglobin/Blood,Ur Neg neg pH, Urine 4.5 - 8.0 6.0 Protein, Urine Neg mg/dL neg Urobilinogen, Urine Normal (<1.1) EU normal Nitrites Neg neg Leukocytes Neg neg Color/Appearance comment: yellow/clear Quality Check yes/no Yes MEDICATIONS: Current Outpatient Prescriptions: insulin glargine (BASAGLAR KWIKPEN U-100 INSULIN) 100 unit/mL (3 mL) inpn Inject 15 Units subcutaneously daily at bedtime. levonorgestrel (MIRENA) 20 mcg/24 hour (5 years) IUD 1 Each by INTRAUTERINE route continuous. metFORMIN (GLUCOPHAGE) 500 mg tablet Take 1 tablet by mouth twice daily with meals. (Patient not taking: Reported on 10/24/2017 ) mometasone (ELOCON) 0.1 % cream Apply 1 application to affected area once daily. blood sugar diagnostic (BLOOD GLUCOSE TEST) test strip Test blood sugar(s) 1 times daily. Dx: Type 2 DM - Uncontrolled E11.65 Insulin: Yes pregabalin (LYRICA) 150 mg capsule Take 1 capsule by mouth three times daily. (Patient not taking: Reported on 10/24/2017 ) Insulin [place], Disposable, (SURE-FINE PEN NEEDLES) 31 gauge x 3/16 ndle Daily injections Lancets lancets Test blood sugar(s) once times daily. Dx: 250.00. Insulin: No blood sugar diagnostic (TRUETRACK TEST) test strip Test 1 time daily DX: E11.9 Insulin: No Blood-Glucose Meter (TRUETRACK BLOOD GLUCOSE SYSTEM) monitoring kit Test blood sugar once a day (250.00 no insulin) No current facility-administered medications for this visit. ALLERGIES: ALLERGIES Allergen Reactions - Cats Hives, Itching - Dust environmental - Grass Pollen Itching - Cardizem [Diltiazem] GI Upset, Vomiting - Percocet [Oxycodone* Vomiting - Zyrtec [Cetirizine * Hives PAST MEDICAL HISTORY Diagnosis Date - Anxiety 12/29/2012 - Arrhythmia - Calculus of gallbladder with other cholecystitis, without mention of obstruction - Diabetes (HCC) - Hypertension PAST SURGICAL HISTORY Procedure Laterality Date - DELIVERY ONLY , low transverse x2 - INSERTION OF IUD 03/09/2013 - LAP CHOLECYSTOENTEROSTOMY 10/04/08 - LAPAROSCOPIC CHOLEYCYSTECTOMY 10/03/08 - LIGATE FALLOPIAN TUBE Tubal ligation FAMILY HISTORY Problem Relation Age of Onset - Heart Mother - Heart Father - Diabetes Mother - Hypertension Mother - Cancer Maternal Grandmother stomach cancer. - Arthritis Mother - Arthritis Father Social History Marital status: Single Spouse name: Years of education: Number of children: 3 Social History Main Topics Smoking status: Current Every Day Smoker Packs/day: 2.00 Years: 20.00 Types: Cigarettes Smokeless tobacco: Never Used Alcohol use: Yes Comment: occ Drug use: No Sexual activity: Yes Partners with: Male control/protection: Tubal Ligation Comment: Mirena inserted 03/09/2013 Social History Narrative Lives with boyfriend. 3 children one of whom lives with her. Reviewed current medications, allergies, past medical history, surgical history, family history and social history today. REVIEW OF SYSTEMS All other reviewed and negative other than HPI. HEALTH MAINTENANCE: Reviewed health maintenance issues today and recommended the following in detail. VITALS: BP 112/82 Pulse 88 Resp 14 Wt 114.3 kg (252 lb) BMI 40.99 kg/m? Last 4 Encounter Wt Readings: Date: Wt: 10/24/2017 114.3 kg (252 lb) 10/20/2017 114.7 kg (252 lb 12.8 oz) 09/22/2017 114.3 kg (252 lb) 07/28/2017 118.8 kg (261 lb 12.8 oz) PHYSICAL EXAMINATION: General appearance: alert Skin: pink paplular rashes. Head: Normocephalic, no masses, lesions, tenderness or abnormalities Lungs: Lungs clear to auscultation. No wheezing, rhonchi, rales Heart: RRR without murmur, gallop, or rubs. No ectopy Abdomen: Normal abdominal exam, Abdomen soft, non-tender. Bowel sounds normal. No masses, organomegaly Extremities: No deformities, edema, skin discoloration, clubbing or cyanosis. Good capillary refill. ASSESSMENT/PLAN: 1. Vaginal irritation - ICD9: 623.9, ICD10: N89.8 (primary diagnosis) - is actually improving. Continue to treat. Call if symptoms worsen at all or if not better in one to two weeks - UA DIP B/O 2. Uncontrolled type 2 diabetes mellitus without complication, with long-term current use of insulin (HCC) - ICD9: 250.02, V58.67, ICD10: E11.65, Z79.4 uncontrolled Poor adherence to plan of care. - Resume meds. Check labs. Consider pharmacy. - METFORMIN 500 MG TABLET - HGB A1C - FLASH GLUCOSE SENSOR KIT 3. Essential hypertension - ICD9: 401.9, ICD10: I10 - good control - Goal of BP <140/90 4. Reflex sympathetic dystrophy - ICD9: 337.20, ICD10: G90.50 - follow prorress - SED RATE WESTERGREN - C-REACTIVE PROTEIN (CRP) 5. Dyslipidemia - ICD9: 272.4, ICD10: E78.5 - to be determined upon return of lab results - Continue current medication. - COMP METABOLIC PANEL - LIPID PANEL BASIC 6. Tobacco abuse - ICD9: 305.1, ICD10: Z72.0 - Cessation encouraged. - Physiologic and physical aspects of tobacco addiction as well as strategies for quitting were discussed. - Counseling was given focusing on the harmful effects of this addiction especially given the patient's medical condition(s) which will be worsened because of the chemicals in tobacco. 7. Morbid obesity with BMI of 50.0-59.9, adult ([facility]) - ICD9: 278.01, V85.43, ICD10: E66.01, Z68.43 - work on weight reduction. 8. Complex regional pain syndrome type 1 of right lower extremity - ICD9: 337.22, ICD10: G90.521 9. Lupus erythematosus, unspecified form - ICD9: 695.4, ICD10: L93.0 - consider going back to rheum. - GIANCARLO BY IFA SCREEN - RHEUMATOID FACTOR BL 10. Neuropathic pain - ICD9: 729.2, ICD10: M79.2 - oarrs done. Discussed risks and benefits of new medication with the patient. Advised them to call if any side effects or questions. - PREGABALIN 150 MG CAPSULE Eldon Ortiz MD RTO in four weeks. and prn. Referring Provider: SELF [[id number]] Allergies As of Date: 10/24/2017 Noted Allergy Reaction CATS 10/23/2009 4 - Hives 9 - Itching DUST 10/23/2009 Comments: environmental GRASS POLLEN 10/23/2009 9 - Itching CARDIZEM (DILTIAZEM) 07/25/2013 8 - GI Upset 11 - Vomiting PERCOCET (OXYCODONE-ACETAMINOPHEN)06/07/2016 11 - Vomiting ZYRTEC (CETIRIZINE HCL) 08/22/2013 4 - Hives Date Reviewed: 10/20/2017 Reviewed by: Evelyn Robles LPN - Fully Assessed Reason for Visit: vaginal irritation [Other] Cmt: itching burning Primary Visit Diagnosis:Vaginal irritation [N89.8] Other Visit Diagnoses:Uncontrolled type 2 diabetes mellitus without complication, with long-term current use of insulin (HCC) [E11.65, Z79.4] Essential hypertension [I10] Reflex sympathetic dystrophy [G90.50] Dyslipidemia [E78.5] Tobacco abuse [Z72.0] Morbid obesity with BMI of 50.0-59.9, adult ([facility]) [E66.01, Z68.43] Complex regional pain syndrome type 1 of right lower extremity [G90.521] Lupus erythematosus, unspecified form [L93.0] Neuropathic pain [M79.2] Order(s):UA DIP B/O [[id number]] Order #: [id number] metFORMIN (GLUCOPHAGE) 500 mg tabletTake 1 tablet by mouth twice daily with meals.Disp: 60 tabletRfl: 5 HGB A1C [GZPVD3J] Order #: [id number] FUTURE COMP METABOLIC PANEL [SQCMP] Order #: [id number] FUTURE LIPID PANEL BASIC [SQLIPB] Order #: [id number] FUTURE GIANCARLO BY IFA SCREEN [SQANAIFS] Order #: [id number] FUTURE RHEUMATOID FACTOR BL [SQRF] Order #: [id number] FUTURE flash glucose sensor (FREESTYLE ANA SENSOR) kitUse as directed daily. Insulin requiring. Poorly controlled diabetes mellitusDisp: 1 EachRfl: 0 SED RATE WESTERGREN [SQWSR] Order #: [id number] FUTURE C-REACTIVE PROTEIN (CRP) [SQCRP] Order #: [id number] FUTURE pregabalin (LYRICA) 150 mg capsuleTake 1 capsule by mouth three times daily for 90 days.Disp: 90 capsuleRfl: 2 Prescriptions as of 10/24/2017 Sig: INSULIN GLARGINE (U-100) 100 * Inject 15 Units subcutaneousl* LEVONORGESTREL 20 MCG/24 HR (* 1 Each by INTRAUTERINE route * METFORMIN 500 MG TABLET Take 1 tablet by mouth twice * FLASH GLUCOSE SENSOR KIT Use as directed daily. Insuli* PREGABALIN 150 MG CAPSULE Take 1 capsule by mouth three* MOMETASONE 0.1 % TOPICAL CREAM Apply 1 application to affect* BLOOD SUGAR DIAGNOSTIC STRIPS Test blood sugar(s) 1 times d* PEN NEEDLE, DIABETIC 31 GAUGE* Daily injections LANCETS Test blood sugar(s) once time* BLOOD SUGAR DIAGNOSTIC STRIPS Test 1 time daily DX: E11.9 * BLOOD-GLUCOSE METER KIT Test blood sugar once a day (* Problem List As Of Date 10/24/2017 Noted Resolved Essential hypertension [I10] INVALID FOR* Backache, unspecified [M54.9] INVALID FOR* Anxiety [F41.9] INVALID FOR* Brachial plexus lesions [G54.0] INVALID FOR* Chest pain, atypical [R07.89] INVALID FOR*06/07/2016 Uncontrolled type 2 diabetes mellitus without c*INVALID FOR* Pain in limb [M79.609] INVALID FOR*06/07/2016 Reflex sympathetic dystrophy [G90.50] INVALID FOR* Neuropathic pain [M79.2] INVALID FOR* RSD lower limb [G90.529] INVALID FOR* Lupus (HCC) [L93.0] INVALID FOR* More... Fibromyalgia [M79.7] INVALID FOR* Patellofemoral instability of both knees with p*INVALID FOR* Osteoarthritis of right knee [M17.11] INVALID FOR* Pain in right knee [M25.561] INVALID FOR* Dyslipidemia [E78.5] INVALID FOR* Morbid obesity with BMI of 50.0-59.9, adult (HC*INVALID FOR* Tobacco abuse [Z72.0] INVALID FOR* Primary osteoarthritis of right knee [M17.11] INVALID FOR* More... Chronic pain of right knee [M25.561, G89.29] INVALID FOR* More... Visit Notes: >> Carri Quinones LPN TueOct 24, 2017 10:32 AM Status: Signed Urgent care FOLLOW UP: Reason for visit: vaginal irritation Which facility: [facility] [place] Date of visit: 10/20/17 Diagnosis: glucosuria Testing done: urine culture Treatment given: Diflucan X 2 (has taken one) Current symptoms: vaginal irritation Diabetes: Is interested in getting a CGM. Advised that needs to see endo to do this. Just got back on her insulin last week. Hasn't been using Lyrica but would like to get started. Prescriptions ordered this encounter Disp Refills Start End METFORMIN 500 MG TABLET 60 t* 5 10/24/2017 Route: ORAL Sig: Take 1 tablet by mouth twice daily with meals. FLASH GLUCOSE SENSOR KIT 1 Ea* 0 10/24/2017 Class: Print RX Sig: Use as directed daily. Insulin requiring. Poorly controlled diabetes mellitus PREGABALIN 150 MG CAPSULE 90 c* 2 10/24/2017 01/22/2018 Class: Print RX Route: ORAL Sig: Take 1 capsule by mouth three times daily for 90 days. Medications Discontinued During This Encounter metFORMIN (GLUCOPHAGE) 500 mg tablet 60 t* 5 07/28/2017 10/24/2017 Route: ORAL Sig: Take 1 tablet by mouth twice daily with meals. Patient not taking: Reported on 10/24/2017 Disc: Reason for discontinue is not on file. pregabalin (LYRICA) 150 mg capsule 90 c* 5 01/11/2017 10/24/2017 Class: Print RX Route: ORAL Sig: Take 1 capsule by mouth three times daily. Patient not taking: Reported on 10/24/2017 Disc: Reason for discontinue is not on file. Disposition: Return in about 4 weeks (around 11/21/2017). Follow-up and Disposition History Recorded Encounter Status:Closed by ELDON ORTIZ MD on 10/24/17 Observed: 10/20/2017 Status: F Source: [facility] URINE CULTURE 2:51 PM [facility] REPOSITORY Sp. Request/Comment: - Specimen received in preservative Culture Result - 10,000 - <50,000 CFU/ml Normal urogenital raymundo Performed By: #### URCUL #### [facility] [address] [place], [place] [address] PROGRESS Observed: 10/20/2017 Status: COMPLETED Source: [facility] 2:42 PM [facility] HNO ID: [id number] Author: Anne Waller Service: (none) Author Type: Nurse Practitioner Type: Progress Notes Filed: 10/20/2017 3:08 PM Note Text: Subjective HPI Ginger Arellano is a 37 year old female who presents with possible yeast infection, she has been having itching sensitive skin in her vaginal area and burning with urination for the past 3 days. She used corn starch at home. She is diabetic and admits that blood sugars have been high- around 420 in the evening. This is usually before dinner or one hour after dinner. She had some improvement in her HgbA1C at her last appointment. She has been working at losing weight and has lost over 50 lbs. Patient states she has had vaginal yeast infections in the past and these symptoms are consistent with past symptoms. Review of Systems Constitutional: Positive for weight loss. Negative for chills and fever. Respiratory: Negative. Cardiovascular: Negative. Genitourinary: Positive for dysuria. See HPI Skin: Negative. Negative for rash. BP 128/84 Pulse 80 Temp 37 ?C (98.6 ?F) (Tympanic) Resp 18 Wt 114.7 kg (252 lb 12.8 oz) BMI 41.12 kg/m? PAST MEDICAL HISTORY Diagnosis Date - Anxiety 12/29/2012 - Arrhythmia - Calculus of gallbladder with other cholecystitis, without mention of obstruction - Diabetes (HCC) - Hypertension PAST SURGICAL HISTORY Procedure Laterality Date - DELIVERY ONLY , low transverse x2 - INSERTION OF IUD 03/09/2013 - LAP CHOLECYSTOENTEROSTOMY 10/04/08 - LAPAROSCOPIC CHOLEYCYSTECTOMY 10/03/08 - LIGATE FALLOPIAN TUBE Tubal ligation ALLERGIES Cats; Dust; Grass Pollen; Cardizem [Diltiazem]; Percocet [Oxycodone-Acetaminophen]; Zyrtec [Cetirizine Hcl] MEDICATIONS insulin glargine (BASAGLAR KWIKPEN U-100 INSULIN) 100 unit/mL (3 mL) inpn Inject 15 Units subcutaneously daily at bedtime. metFORMIN (GLUCOPHAGE) 500 mg tablet Take 1 tablet by mouth twice daily with meals. mometasone (ELOCON) 0.1 % cream Apply 1 application to affected area once daily. blood sugar diagnostic (BLOOD GLUCOSE TEST) test strip Test blood sugar(s) 1 times daily. Dx: Type 2 DM - Uncontrolled E11.65 Insulin: Yes pregabalin (LYRICA) 150 mg capsule Take 1 capsule by mouth three times daily. Insulin [place], Disposable, (SURE-FINE PEN NEEDLES) 31 gauge x 3/16 ndle Daily injections Lancets lancets Test blood sugar(s) once times daily. Dx: 250.00. Insulin: No blood sugar diagnostic (TRUETRACK TEST) test strip Test 1 time daily DX: E11.9 Insulin: No Blood-Glucose Meter (TRUETRACK BLOOD GLUCOSE SYSTEM) monitoring kit Test blood sugar once a day (250.00 no insulin) levonorgestrel (MIRENA) 20 mcg/24 hour (5 years) IUD 1 Each by INTRAUTERINE route continuous. fluconazole (DIFLUCAN) 150 mg tablet Take 1 tablet by mouth one time only for 1 dose. May repeat in 7 days if not resolving. FAMILY HISTORY Problem Relation Age of Onset - Heart Mother - Heart Father - Diabetes Mother - Hypertension Mother - Cancer Maternal Grandmother stomach cancer. - Arthritis Mother - Arthritis Father Social History Substance Use Topics - Smoking status: Current Every Day Smoker Packs/day: 2.00 Years: 20.00 Types: Cigarettes - Smokeless tobacco: Never Used - Alcohol use Yes Comment: occ Objective Physical Exam Constitutional: She is well-developed, well-nourished, and in no distress. Genitourinary: Genitourinary Comments: Exam deferred. Neurological: She is alert. Skin: Skin is warm and dry. Nursing note and vitals reviewed. Fingerstick blood sugar: 301 ASSESSMENT/PLAN: 1. Glucosuria - ICD9: 791.5, ICD10: R81 (primary diagnosis) - GLUCOSE, BLOOD (POC) - GLUCOSE, BLOOD (POC) 2. Dysuria - ICD9: 788.1, ICD10: R30.0 acute - UA positive for proteinuria and glucosuria - Send urine for culture - Patient education for prevention given - UA DIP B/O - URINE CULTURE 3. Vaginal yeast infection - ICD9: 112.1, ICD10: B37.3 - FLUCONAZOLE 150 MG TABLET - Follow-up with your PCP in 3-5 days if symptoms have not improved or sooner if symptoms worsen - Discussed red flags and need for immediate medical evaluation if any occur. - Discussed supportive care treatment with fluids, rest and analgesia. - Discussed expected course of illness Anne Waller APRN.CUSTOM SHOEMAKER CNOV Observed: 10/20/2017 Status: COMPLETED Source: [facility] 2:30 PM [facility] RE[facility] Office Visit ([facility]) GINGER ARELLANO ([id number]) 1980 F Date Time Provider Department 10/20/17 2:30 PM ANNE WALLER ([facility]) [facility] During your visit today, we recorded the following information about you: Temperature Pulse Respiration Blood pressure 98.6 degrees 80/minute 18/minute 128/84 Weight 114.7 kg Anne Waller APRN.CNP 10/20/2017 3:08 PM Signed Subjective HPI Ginger Arellano is a 37 year old female who presents with possible yeast infection, she has been having itching sensitive skin in her vaginal area and burning with urination for the past 3 days. She used corn starch at home. She is diabetic and admits that blood sugars have been high- around 420 in the evening. This is usually before dinner or one hour after dinner. She had some improvement in her HgbA1C at her last appointment. She has been working at losing weight and has lost over 50 lbs. Patient states she has had vaginal yeast infections in the past and these symptoms are consistent with past symptoms. Review of Systems Constitutional: Positive for weight loss. Negative for chills and fever. Respiratory: Negative. Cardiovascular: Negative. Genitourinary: Positive for dysuria. See HPI Skin: Negative. Negative for rash. BP 128/84 Pulse 80 Temp 37 ?C (98.6 ?F) (Tympanic) Resp 18 Wt 114.7 kg (252 lb 12.8 oz) BMI 41.12 kg/m? PAST MEDICAL HISTORY Diagnosis Date - Anxiety 12/29/2012 - Arrhythmia - Calculus of gallbladder with other cholecystitis, without mention of obstruction - Diabetes (HCC) - Hypertension PAST SURGICAL HISTORY Procedure Laterality Date - DELIVERY ONLY , low transverse x2 - INSERTION OF IUD 03/09/2013 - LAP CHOLECYSTOENTEROSTOMY 10/04/08 - LAPAROSCOPIC CHOLEYCYSTECTOMY 10/03/08 - LIGATE FALLOPIAN TUBE Tubal ligation ALLERGIES Cats; Dust; Grass Pollen; Cardizem [Diltiazem]; Percocet [Oxycodone-Acetaminophen]; Zyrtec [Cetirizine Hcl] MEDICATIONS insulin glargine (BASAGLAR KWIKPEN U-100 INSULIN) 100 unit/mL (3 mL) inpn Inject 15 Units subcutaneously daily at bedtime. metFORMIN (GLUCOPHAGE) 500 mg tablet Take 1 tablet by mouth twice daily with meals. mometasone (ELOCON) 0.1 % cream Apply 1 application to affected area once daily. blood sugar diagnostic (BLOOD GLUCOSE TEST) test strip Test blood sugar(s) 1 times daily. Dx: Type 2 DM - Uncontrolled E11.65 Insulin: Yes pregabalin (LYRICA) 150 mg capsule Take 1 capsule by mouth three times daily. Insulin [place], Disposable, (SURE-FINE PEN NEEDLES) 31 gauge x 3/16 ndle Daily injections Lancets lancets Test blood sugar(s) once times daily. Dx: 250.00. Insulin: No blood sugar diagnostic (TRUETRACK TEST) test strip Test 1 time daily DX: E11.9 Insulin: No Blood-Glucose Meter (TRUETRACK BLOOD GLUCOSE SYSTEM) monitoring kit Test blood sugar once a day (250.00 no insulin) levonorgestrel (MIRENA) 20 mcg/24 hour (5 years) IUD 1 Each by INTRAUTERINE route continuous. fluconazole (DIFLUCAN) 150 mg tablet Take 1 tablet by mouth one time only for 1 dose. May repeat in 7 days if not resolving. FAMILY HISTORY Problem Relation Age of Onset - Heart Mother - Heart Father - Diabetes Mother - Hypertension Mother - Cancer Maternal Grandmother stomach cancer. - Arthritis Mother - Arthritis Father Social History Substance Use Topics - Smoking status: Current Every Day Smoker Packs/day: 2.00 Years: 20.00 Types: Cigarettes - Smokeless tobacco: Never Used - Alcohol use Yes Comment: occ Objective Physical Exam Constitutional: She is well-developed, well-nourished, and in no distress. Genitourinary: Genitourinary Comments: Exam deferred. Neurological: She is alert. Skin: Skin is warm and dry. Nursing note and vitals reviewed. Fingerstick blood sugar: 301 ASSESSMENT/PLAN: 1. Glucosuria - ICD9: 791.5, ICD10: R81 (primary diagnosis) - GLUCOSE, BLOOD (POC) - GLUCOSE, BLOOD (POC) 2. Dysuria - ICD9: 788.1, ICD10: R30.0 acute - UA positive for proteinuria and glucosuria - Send urine for culture - Patient education for prevention given - UA DIP B/O - URINE CULTURE 3. Vaginal yeast infection - ICD9: 112.1, ICD10: B37.3 - FLUCONAZOLE 150 MG TABLET - Follow-up with your PCP in 3-5 days if symptoms have not improved or sooner if symptoms worsen - Discussed red flags and need for immediate medical evaluation if any occur. - Discussed supportive care treatment with fluids, rest and analgesia. - Discussed expected course of illness ALEJANDRO Howard APRN.CNP 10/20/2017 2:59 PM Signed [facility] PATIENT INFO VAGINAL YEAST INFECTION INTRODUCTION Vaginal yeast infections are a common problem in women. Vaginal yeast infections are also called yeast vaginitis or vaginal candidiasis. The most common symptoms of a yeast infection are itching and irritation of the vulva and around the opening of the vagina. Yeast infections occur mainly in women who are menstruating (having monthly periods). They are less common in postmenopausal women who do not take estrogen and in girls who have not yet started menstruating. VAGINAL YEAST INFECTION SYMPTOMS The most common symptoms of a yeast infection include: ? Itching or irritation of the vulva and around the vaginal opening. ? Pain with urination, vulvar soreness or irritation, ? Pain with intercourse ? Reddened and swollen vulvar and vaginal tissues. ? Some women have no abnormal vaginal discharge. Others have white clumpy (curd-like) or watery vaginal discharge. Symptoms of a yeast infection are similar to a number of other conditions, including bacterial vaginosis (a bacterial infection of the vagina), trichomoniasis (a sexually transmitted infection), and dermatitis (irritated skin). It is often not possible to know if itching is caused by yeast or other causes. VAGINAL YEAST INFECTION CAUSE The fungus that causes yeast infections (named Lorenzo) normally lives in the gastrointestinal tract and sometimes the vagina. Normally, Lorenzo causes no symptoms. However, when there are changes in the normal raymundo of the gastrointestinal tract and vagina (caused by medicines, injury, or stress to the immune system), Lorenzo can overgrow and cause the symptoms described above. VAGINAL YEAST INFECTION RISK FACTORS In most women, there is no underlying health problem that leads to a yeast infection. There are several risk factors that may increase the chances of developing an infection, including: ? Antibiotics ? Most antibiotics kill a wide variety of bacteria, including those that normally live in the vagina. These bacteria protect the vagina from the overgrowth of yeast. Some women are prone to yeast infections while taking antibiotics. ? Hormonal contraceptives (eg, control pills, patch, and vaginal ring) ? The risk of yeast infections may be higher in women who use control methods containing estrogen. ? Contraceptive devices ? Vaginal sponges, diaphragms, and intrauterine devices (IUDs) may increase the risk of yeast infections. Spermicides do not usually cause yeast infections, although they can cause you to have vaginal or vulvar irritation. ? Weakened immune system ? Yeast infections are more common in people who have a weakened immune system due to HIV or use of certain medications (steroids, chemotherapy, post-organ transplant medications). ? ? Vaginal discharge becomes more noticeable during , although yeast infection is not always the cause. ? Diabetes ? Women with diabetes are at higher risk for yeast infections, especially if blood sugar levels are often higher than normal. ? Sexual activity ? Vaginal yeast infections are not a sexually transmitted infection. They can occur in women who have never been sexually active, but are more common in women who are sexually active. VAGINAL YEAST INFECTION DIAGNOSIS Yeast infections can be diagnosed with an exam. During the exam, your doctor or nurse will examine your vulva and vagina and swab the vagina to get a sample of discharge. Do not begin treatment at home before being examined. Self-diagnosis ? Women with vulvar itching or vaginal discharge often assume that their symptoms are caused by a yeast infection and then use a non-prescription treatment. However, in one study, only 11 percent of women accurately diagnosed their infection; women with a previous yeast infection were only slightly more accurate (35 percent correct). Diagnosing and treating yourself: ? Wastes money (on non-prescription treatment) ? Wastes time; you will not feel better until you use the right treatment ? Can make you more itchy and irritated VAGINAL YEAST INFECTION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 patient. Reviewed appropriate action plan to take if red flag symptoms occur. Patient agreeable to treatment plan. Skye Ocampo APRN.CUSTOM SHOEMAKER CNOV Observed: 09/22/2017 Status: COMPLETED Source: PERRY 10:45 AM [facility] REPOSITORY Office Visit (WSTR) GINGER ARELLANO ([id number]) 1980 F Date Time Provider Department 09/22/17 10:45 AM SKYE OCAMPO ([facility]IL[facility]) [facility] During your visit today, we recorded the following information about you: Temperature Pulse Blood pressure Weight 98.1 degrees 80/minute 130/70 114.3 kg Skye Ocampo APRN.CNP 09/22/2017 12:23 PM Signed Subjective HPI HPI Ginger Arellano is a 37 year old female who presents today for CC of left eye redness/drainage. This started 1 day ago. Has tried nothing. Symptoms are worsened by nothing. Risk factors none. .Patient presents with: Conjunctivitis: LT eye red and crusty this morning PAST MEDICAL HISTORY Diagnosis Date - Anxiety 12/29/2012 - Arrhythmia - Calculus of gallbladder with other cholecystitis, without mention of obstruction - Diabetes (HCC) - Hypertension PAST SURGICAL HISTORY Procedure Laterality Date - DELIVERY ONLY , low transverse x2 - INSERTION OF IUD 03/09/2013 - LAP CHOLECYSTOENTEROSTOMY 10/04/08 - LAPAROSCOPIC CHOLEYCYSTECTOMY 10/03/08 - LIGATE FALLOPIAN TUBE Tubal ligation ALLERGIES Cats; Dust; Grass Pollen; Cardizem [Diltiazem]; Percocet [Oxycodone-Acetaminophen]; Zyrtec [Cetirizine Hcl] MEDICATIONS insulin glargine (BASAGLAR KWIKPEN U-100 INSULIN) 100 unit/mL (3 mL) inpn Inject 15 Units subcutaneously daily at bedtime. metFORMIN (GLUCOPHAGE) 500 mg tablet Take 1 tablet by mouth twice daily with meals. mometasone (ELOCON) 0.1 % cream Apply 1 application to affected area once daily. blood sugar diagnostic (BLOOD GLUCOSE TEST) test strip Test blood sugar(s) 1 times daily. Dx: Type 2 DM - Uncontrolled E11.65 Insulin: Yes pregabalin (LYRICA) 150 mg capsule Take 1 capsule by mouth three times daily. Insulin [place], Disposable, (SURE-FINE PEN NEEDLES) 31 gauge x 3/16 ndle Daily injections Lancets lancets Test blood sugar(s) once times daily. Dx: 250.00. Insulin: No blood sugar diagnostic (TRUETRACK TEST) test strip Test 1 time daily DX: E11.9 Insulin: No Blood-Glucose Meter (TRUETRACK BLOOD GLUCOSE SYSTEM) monitoring kit Test blood sugar once a day (250.00 no insulin) levonorgestrel (MIRENA) 20 mcg/24 hour (5 years) IUD 1 Each by INTRAUTERINE route continuous. FAMILY HISTORY Problem Relation Age of Onset - Heart Mother - Heart Father - Diabetes Mother - Hypertension Mother - Cancer Maternal Grandmother stomach cancer. - Arthritis Mother - Arthritis Father Social History Substance Use Topics - Smoking status: Current Every Day Smoker Packs/day: 2.00 Years: 20.00 Types: Cigarettes - Smokeless tobacco: Never Used - Alcohol use Yes Comment: occ Review of Systems Constitutional: Negative for chills and fever. HENT: Negative for ear discharge, ear pain and sore throat. Eyes: Positive for discharge and redness. Negative for blurred vision, double vision, photophobia and pain. Neurological: Negative for headaches. Objective Blood pressure 130/70, pulse 80, temperature 36.7 ?C (98.1 ?F), temperature source Tympanic, weight 114.3 kg (252 lb). Physical Exam Constitutional: She is oriented to person, place, and time and well-developed, well-nourished, and in no distress. Vital signs are normal. Non-toxic appearance. She does not have a sickly appearance. No distress. HENT: Right Ear: Hearing, tympanic membrane and external ear normal. Left Ear: Hearing, tympanic membrane, external ear and ear canal normal. Nose: No mucosal edema or sinus tenderness. Mouth/Throat: Uvula is midline, oropharynx is clear and moist and mucous membranes are normal. Eyes: Right eye exhibits discharge. Left eye exhibits discharge. Right conjunctiva is injected. Left conjunctiva is injected. Lymphadenopathy: Right cervical: No superficial cervical adenopathy present. Left cervical: No superficial cervical adenopathy present. No cervical lymphadenopathy bilaterally Neurological: She is oriented to person, place, and time. ASSESSMENT/PLAN: 1. Bacterial conjunctivitis - ICD9: 372.39, 041.9, ICD10: H10.9 Bacterial - see medication orders - course and contagiousness issues discussed, including hand washing. - Instructed to call if high fever, development of periorbital redness or swelling, eye pain, visual changes, concerns or if symptoms persist. - CIPROFLOXACIN 0.3 % EYE DROPS Prescription instructions reviewed with patient as applicable. Patient advised if symptoms do not improve or if symptoms worsen sooner, to contact the office for further evaluation by their primary care physician. Potential red flag symptoms discussed with the patient. Reviewed appropriate action plan to take if red flag symptoms occur. Patient agreeable to treatment plan. ALEJANDRO Rodriges APRN.CNP 09/22/2017 11:00 AM Signed CONJUNCTIVITIS GENERAL INFORMATION: Conjunctivitis is also known as pink eye. It is an irritation of the underside of the eyelid and the white part of the eye. Conjunctivitis can be caused by infection, chemical irritation, or allergy. If infectious, it is very contagious. INSTRUCTIONS: The doctor has prescribed antibiotic drops or ointment. Use them as prescribed. Do not touch the dropper to the eye. Throw out the medication after completing treatment. If the doctor only prescribed the medication to be placed in one eye, and the other eye starts to bother you with the same symptoms, you may treat it in the same fashion. To ease discomfort, apply a warm or cool clean washcloth to your eye several times a day for 10 to 20 minutes. Gently wipe away discharge from the eyes with tissues. Wash your hands often with soap and use paper towels to dry them. Do not share towels, washcloths, or pillows. This could spread infection. Do not use eye make-up until the infection has resolved. Keep contact lenses out of eyes until the irritation is gone. Discard any eye make-up which you may have contaminated before the infection was diagnosed, and any eye make-up older than one year. Children should not return to school or daycare until the eye is no longer pink. Do not drive or operate machinery if your vision is blurred. Wear sunglasses if your eyes are sensitive to the light. CONTACT YOUR DOCTOR IF YOU OR YOUR CHILD NOTICE: *The eye is still pink 3 days after starting treatment with medicine. *Pain in the eye increases. *The redness is spreading. *Vision becomes blurred. *You have a temperature over 100.5 F (38 C). Referring Provider: SELF [[id number]] Allergies As of Date: 09/22/2017 Noted Allergy Reaction CATS 10/23/2009 4 - Hives 9 - Itching DUST 10/23/2009 Comments: environmental GRASS POLLEN 10/23/2009 9 - Itching CARDIZEM (DILTIAZEM) 07/25/2013 8 - GI Upset 11 - Vomiting PERCOCET (OXYCODONE-ACETAMINOPHEN)06/07/2016 11 - Vomiting ZYRTEC (CETIRIZINE HCL) 08/22/2013 4 - Hives Date Reviewed: 09/22/2017 Reviewed by: Skye ([facility]) - Fully Assessed Reason for Visit: Conjunctivitis [24] Cmt: LT eye red and crusty this morning Primary Visit Diagnosis:Bacterial conjunctivitis [H10.9] Order(s):ciprofloxacin HCl (CILOXAN) 0.3 % ophthalmic solutionUse 1 Drop in both eyes four times daily for 5 days.Disp: 1 BottleRfl: 0 Prescriptions as of 09/22/2017 Sig: INSULIN GLARGINE (U-100) 100 * Inject 15 Units subcutaneousl* METFORMIN 500 MG TABLET Take 1 tablet by mouth twice * MOMETASONE 0.1 % TOPICAL CREAM Apply 1 application to affect* BLOOD SUGAR DIAGNOSTIC STRIPS Test blood sugar(s) 1 times d* PREGABALIN 150 MG CAPSULE Take 1 capsule by mouth three* PEN NEEDLE, DIABETIC 31 GAUGE* Daily injections LANCETS Test blood sugar(s) once time* BLOOD SUGAR DIAGNOSTIC STRIPS Test 1 time daily DX: E11.9 * BLOOD-GLUCOSE METER KIT Test blood sugar once a day (* LEVONORGESTREL 20 MCG/24 HR (* 1 Each by INTRAUTERINE route * CIPROFLOXACIN 0.3 % EYE DROPS Use 1 Drop in both eyes four * Problem List As Of Date 09/22/2017 Noted Resolved Essential hypertension [I10] INVALID FOR* Backache, unspecified [M54.9] INVALID FOR* Anxiety [F41.9] INVALID FOR* Brachial plexus lesions [G54.0] INVALID FOR* Chest pain, atypical [R07.89] INVALID FOR*06/07/2016 Uncontrolled type 2 diabetes mellitus without c*INVALID FOR* Pain in limb [M79.609] INVALID FOR*06/07/2016 Reflex sympathetic dystrophy, unspecified (HCC)*INVALID FOR* Neuropathic pain [M79.2] INVALID FOR* RSD lower limb [G90.529] INVALID FOR* Lupus (HCC) [L93.0] INVALID FOR* More... Fibromyalgia [M79.7] INVALID FOR* Patellofemoral instability of both knees with p*INVALID FOR* Osteoarthritis of right knee [M17.11] INVALID FOR* Pain in right knee [M25.561] INVALID FOR* Dyslipidemia [E78.5] INVALID FOR* Morbid obesity with BMI of 50.0-59.9, adult (HC*INVALID FOR* Tobacco abuse [Z72.0] INVALID FOR* Primary osteoarthritis of right knee [M17.11] INVALID FOR* More... Chronic pain of right knee [M25.561, G89.29] INVALID FOR* More... Other instructions from your clinician: CONJUNCTIVITIS GENERAL INFORMATION: Conjunctivitis is also known as pink eye. It is an irritation of the underside of the eyelid and the white part of the eye. Conjunctivitis can be caused by infection, chemical irritation, or allergy. If infectious, it is very contagious. INSTRUCTIONS: The doctor has prescribed antibiotic drops or ointment. Use them as prescribed. Do not touch the dropper to the eye. Throw out the medication after completing treatment. If the doctor only prescribed the medication to be placed in one eye, and the other eye starts to bother you with the same symptoms, you may treat it in the same fashion. To ease discomfort, apply a warm or cool clean washcloth to your eye several times a day for 10 to 20 minutes. Gently wipe away discharge from the eyes with tissues. Wash your hands often with soap and use paper towels to dry them. Do not share towels, washcloths, or pillows. This could spread infection. Do not use eye make-up until the infection has resolved. Keep contact lenses out of eyes until the irritation is gone. Discard any eye make-up which you may have contaminated before the infection was diagnosed, and any eye make-up older than one year. Children should not return to school or daycare until the eye is no longer pink. Do not drive or operate machinery if your vision is blurred. Wear sunglasses if your eyes are sensitive to the light. CONTACT YOUR DOCTOR IF YOU OR YOUR CHILD NOTICE: *The eye is still pink 3 days after starting treatment with medicine. *Pain in the eye increases. *The redness is spreading. *Vision becomes blurred. *You have a temperature over 100.5 F (38 C). Prescriptions ordered this encounter Disp Refills Start End CIPROFLOXACIN 0.3 % EYE DROPS 1 James* 0 09/22/2017 09/27/2017 Route: BOTH EYES Sig: Use 1 Drop in both eyes four times daily for 5 days. Encounter Status:Closed by SKYE OCAMPO CNP on 09/22/17 12 LEAD ELECTROCARDIOGRAM Observed: 07/29/2017 Status: F Source: [place] 1:05 PM [facility] Cardiovascular Services [address] [place] [address] 12 Lead EKG 07/25/171936 MR#: [id number] Acct: [id number] Name: GINGER ARELLANO Rep #: [id number] : 1980 37 From: Gus Coburn MD Attending Dr: Status: DEP ER Ordering Dr: Eliseo Carrasco MD Date: 07/25/17 Location: ED Sex: F C Admitted: Test Reason : CHEST PAIN Blood Pressure : / mmHG Vent. Rate : 092 BPM Atrial Rate : 092 BPM P-R Int : 142 ms QRS Dur : 088 ms QT Int : 352 ms P-R-T Axes : 006 102 049 degrees QTc Int : 435 ms Normal sinus rhythm Normal ECG Confirmed by GUS COBURN MD ([id number]), primer expeditor and drier TERRA PAIZ ([id number]) on 07/29/2017 1:04:38 PM Referred By: LUNA Confirmed By:GUS COBURN MD 07/29/17 1304 Date Gus Coburn MD CC: ELISEO CARRASCO MD; Eldon Ortiz MD Signed PROGRESS Observed: 07/28/2017 Status: COMPLETED Source: PERRY 5:22 PM [facility] [place] REPOSITORY HNO ID: [id number] Author: Sonia Ortega Service: (none) Author Type: Physician Clutch Specialist Type: Progress Notes Filed: 07/28/2017 7:52 PM Note Text: 37 year old female with c/o 1. DM2; reviewed lab work. Patient is taking insulin as directed. She has no complications in the past with oral medications and does not remember why they were discontinued. She was trying with diet. States she has had some weight loss. 2. Patient is concerned about my questions regarding her thyroid. This came from a note in the chart from KATIE Arellano identifying that at one point she was on thyroid medicine. Patient has not been on thyroid medicine the past. I reviewed with her that my question was related to her cholesterol since she has not had a recent TSH and cholesterol as uncontrolled. We discussed current recommendations. 3. IBS: Having episodic fluctuations stools all over the place but most recently in the last few weeks episodes with mushy to diarrhea stools about 5 times a day. States she has some mild abdominal discomfort. No heartburn or brash. No nocturnal symptoms. Acknowledges coffee 1-2/ tea 4-5 per day. ETOH on weekends to the point she gets drunk. Uses anti-inflammatories intermittently. Identifies that she has been under significant anxiety with raising her children. HISTORIES FAMILY HISTORY Problem Relation Age of Onset - Heart Mother - Heart Father - Diabetes Mother - Hypertension Mother - Cancer Maternal Grandmother stomach cancer. - Arthritis Mother - Arthritis Father PAST MEDICAL HISTORY Diagnosis Date - Anxiety 12/29/2012 - Arrhythmia - Calculus of gallbladder with other cholecystitis, without mention of obstruction - Diabetes (HCC) - Hypertension PAST SURGICAL HISTORY Procedure Laterality Date - DELIVERY ONLY , low transverse x2 - INSERTION OF IUD 03/09/2013 - LAP CHOLECYSTOENTEROSTOMY 10/04/08 - LAPAROSCOPIC CHOLEYCYSTECTOMY 10/03/08 - LIGATE FALLOPIAN TUBE Tubal ligation Social History Marital status: Single Spouse name: Years of education: Number of children: 3 Social History Main Topics Smoking status: Current Every Day Smoker Packs/day: 2.00 Years: 20.00 Types: Cigarettes Smokeless status: Never Used Alcohol use: Yes Comment: occ Drug use: No Sexual activity: Yes Partners with: Male control/protection: Tubal Ligation Comment: Mirena inserted 03/09/2013 Social History Narrative Lives with boyfriend. 3 children one of whom lives with her. 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 Disp: 45 g Rfl: 0 blood sugar diagnostic (BLOOD GLUCOSE TEST) test strip Test blood sugar(s) 1 times daily. Dx: Type 2 DM - Uncontrolled E11.65 Insulin: Yes Disp: 50 Strip Rfl: 11 pregabalin (LYRICA) 150 mg capsule Take 1 capsule by mouth three times daily. Disp: 90 capsule Rfl: 5 insulin glargine (BASAGLAR KWIKPEN) 100 unit/mL (3 mL) inpn Inject 15 Units subcutaneously daily at bedtime. Disp: 7 Pen Rfl: 1 Insulin [place], Disposable, (SURE-FINE PEN NEEDLES) 31 gauge x 3/16 ndle Daily injections Disp: 30 Each Rfl: 11 Lancets lancets Test blood sugar(s) once times daily. Dx: 250.00. Insulin: No Disp: 100 Each Rfl: 2 blood sugar diagnostic (TRUETRACK TEST) test strip Test 1 time daily DX: E11.9 Insulin: No Disp: 50 Strip Rfl: 2 Blood-Glucose Meter (TRUETRACK BLOOD GLUCOSE SYSTEM) monitoring kit Test blood sugar once a day (250.00 no insulin) Disp: 1 Each Rfl: 0 levonorgestrel (MIRENA) 20 mcg/24 hour (5 years) IUD 1 Each by INTRAUTERINE route continuous. Disp: Rfl: No current facility-administered medications for this visit. DILATED RETINAL EXAM due on 1980 ONE PNEUMOVAX PRIOR TO AGE 65 due on 1996 PAP EVERY 3 YEARS due on 12/30/2015 DIABETIC FOOT EXAM due on 03/19/2017 EXAM: BP 124/82 Pulse 84 Resp 16 Wt 118.8 kg (261 lb 12.8 oz) BMI 42.58 kg/m2 Pleasant Obese adult woman in no acute distress. Alert and oriented all spheres. Normal affect and cognition. Speech normal. No deficits to learning or comprehension. Skin warm, dry, pink to lips and nailbeds. Normal turgor. Respirations regular and unlabored. HEENT WNL. TM's clear. Nose and oropharynx free from injection or lesion. No cervical lymph nodes. Thyroid non-tender, no masses Chest CTA. HRRR without murmur or gallop. Abd: Obese, rounded, bowel sounds active throughout. No pulsatile masses. Diffuse tenderness across the upper abdomen with tympanic percussion, dull percussion over the lower abdomen with stool palpable. No rebound, guarding, or peritoneal signs. No masses. No organomegaly. Elizabeth's punch: negative. No flank pain. No inguinal or axillary lymphadenopathy. Extrem: no clubbing, cyanosis, edema. Extremities are warm and pink with prompt capillary refill. Assessment: ASSESSMENT/PLAN: 1. Essential hypertension - ICD9: 401.9, ICD10: I10 (primary diagnosis) - good control - Continue current medications. 2. Anxiety - ICD9: 300.00, ICD10: F41.9 We exceeded time available to review. Will discuss at next visit. 3. Uncontrolled type 2 diabetes mellitus without complication, with long-term current use of insulin ([facility]) - ICD9: 250.02, V58.67, ICD10: E11.65, Z79.4 uncontrolled - Add metformin (Glucophage) - TSH BLD today - INSULIN GLARGINE (U-100) 100 UNIT/ML (3 ML) SUBCUTANEOUS PEN - METFORMIN 500 MG TABLET - HGB A1C in 3 months 4. Morbid obesity with BMI of 50.0-59.9, adult (HCC) - ICD9: 278.01, V85.43, ICD10: E66.01, Z68.43 - TSH BLD 5. Dyslipidemia - ICD9: 272.4, ICD10: E78.5 - poor control - Encouraged following a low fat, low cholesterol diet. - Discussed the benefits of regular aerobic exercise and weight loss. - TSH BLD If no thyroid issues will recommend statin therapy. 6. Irritable bowel syndrome with diarrhea - ICD9: 564.1, ICD10: K58.0 Reviewed characteristics of irritable bowel syndrome which could be aggravated by her excessive caffeine and alcohol abuse on weekends. Recommend that she try to cut caffeine back. Increase water, exercise, fiber. We discussed the effects of tobacco but patient tells me that she is no plans to stop smoking. Recommended Citrucel or Metamucil [id number] daily. Follow-up if these measures are not helping. Recheck in 3 months. Sonia Ortega PA-C CNOV Observed: 07/28/2017 Status: COMPLETED Source: PERRY 4:40 PM [facility] REPOSITORY Office Visit (FAMPWS) CRICKETGINGER Lezama ([id number]) 1980 F Date Time Provider Department 07/28/17 4:40 PM Sonia ORTEGA) FAMPWS During your visit today, we recorded the following information about you: Pulse Respiration Blood pressure Weight 84/minute 16/minute 124/82 118.8 kg Sonia Ortega PA-C 07/28/2017 7:52 PM Signed 37 year old female with c/o 1. DM2; reviewed lab work. Patient is taking insulin as directed. She has no complications in the past with oral medications and does not remember why they were discontinued. She was trying with diet. States she has had some weight loss. 2. Patient is concerned about my questions regarding her thyroid. This came from a note in the chart from KATIE Arellano identifying that at one point she was on thyroid medicine. Patient has not been on thyroid medicine the past. I reviewed with her that my question was related to her cholesterol since she has not had a recent TSH and cholesterol as uncontrolled. We discussed current recommendations. 3. IBS: Having episodic fluctuations stools ANDquot;all over the placeANDquot; but most recently in the last few weeks episodes with mushy to diarrhea stools about 5 times a day. States she has some mild abdominal discomfort. No heartburn or brash. No nocturnal symptoms. Acknowledges coffee 1-2/ tea 4-5 per day. ETOH on weekends to the point she gets drunk. Uses anti-inflammatories intermittently. Identifies that she has been under significant anxiety with raising her children. HISTORIES FAMILY HISTORY Problem Relation Age of Onset - Heart Mother - Heart Father - Diabetes Mother - Hypertension Mother - Cancer Maternal Grandmother stomach cancer. - Arthritis Mother - Arthritis Father PAST MEDICAL HISTORY Diagnosis Date - Anxiety 12/29/2012 - Arrhythmia - Calculus of gallbladder with other cholecystitis, without mention of obstruction - Diabetes (HCC) - Hypertension PAST SURGICAL HISTORY Procedure Laterality Date - DELIVERY ONLY , low transverse x2 - INSERTION OF IUD 03/09/2013 - LAP CHOLECYSTOENTEROSTOMY 10/04/08 - LAPAROSCOPIC CHOLEYCYSTECTOMY 10/03/08 - LIGATE FALLOPIAN TUBE Tubal ligation Social History Marital status: Single Spouse name: Years of education: Number of children: 3 Social History Main Topics Smoking status: Current Every Day Smoker Packs/day: 2.00 Years: 20.00 Types: Cigarettes Smokeless status: Never Used Alcohol use: Yes Comment: occ Drug use: No Sexual activity: Yes Partners with: Male control/protection: Tubal Ligation Comment: Mirena inserted 03/09/2013 Social History Narrative Lives with boyfriend. 3 children one of whom lives with her. 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 Disp: 45 g Rfl: 0 blood sugar diagnostic (BLOOD GLUCOSE TEST) test strip Test blood sugar(s) 1 times daily. Dx: Type 2 DM - Uncontrolled E11.65 Insulin: Yes Disp: 50 Strip Rfl: 11 pregabalin (LYRICA) 150 mg capsule Take 1 capsule by mouth three times daily. Disp: 90 capsule Rfl: 5 insulin glargine (BASAGLAR KWIKPEN) 100 unit/mL (3 mL) inpn Inject 15 Units subcutaneously daily at bedtime. Disp: 7 Pen Rfl: 1 Insulin [place], Disposable, (SURE-FINE PEN NEEDLES) 31 gauge x 3/16ANDquot; ndle Daily injections Disp: 30 Each Rfl: 11 Lancets lancets Test blood sugar(s) once times daily. Dx: 250.00. Insulin: No Disp: 100 Each Rfl: 2 blood sugar diagnostic (TRUETRACK TEST) test strip Test 1 time daily DX: E11.9 Insulin: No Disp: 50 Strip Rfl: 2 Blood-Glucose Meter (TRUETRACK BLOOD GLUCOSE SYSTEM) monitoring kit Test blood sugar once a day (250.00 no insulin) Disp: 1 Each Rfl: 0 levonorgestrel (MIRENA) 20 mcg/24 hour (5 years) IUD 1 Each by INTRAUTERINE route continuous. Disp: Rfl: No current facility-administered medications for this visit. DILATED RETINAL EXAM due on 1980 ONE PNEUMOVAX PRIOR TO AGE 65 due on 1996 PAP EVERY 3 YEARS due on 12/30/2015 DIABETIC FOOT EXAM due on 03/19/2017 EXAM: BP 124/82 Pulse 84 Resp 16 Wt 118.8 kg (261 lb 12.8 oz) BMI 42.58 kg/m2 Pleasant Obese adult woman in no acute distress. Alert and oriented all spheres. Normal affect and cognition. Speech normal. No deficits to learning or comprehension. Skin warm, dry, pink to lips and nailbeds. Normal turgor. Respirations regular and unlabored. HEENT WNL. TM's clear. Nose and oropharynx free from injection or lesion. No cervical lymph nodes. Thyroid non-tender, no masses Chest CTA. HRRR without murmur or gallop. Abd: Obese, rounded, bowel sounds active throughout. No pulsatile masses. Diffuse tenderness across the upper abdomen with tympanic percussion, dull percussion over the lower abdomen with stool palpable. No rebound, guarding, or peritoneal signs. No masses. No organomegaly. Elizabeth's punch: negative. No flank pain. No inguinal or axillary lymphadenopathy. Extrem: no clubbing, cyanosis, edema. Extremities are warm and pink with prompt capillary refill. Assessment: ASSESSMENT/PLAN: 1. Essential hypertension - ICD9: 401.9, ICD10: I10 (primary diagnosis) - good control - Continue current medications. 2. Anxiety - ICD9: 300.00, ICD10: F41.9 We exceeded time available to review. Will discuss at next visit. 3. Uncontrolled type 2 diabetes mellitus without complication, with long-term current use of insulin (HCC) - ICD9: 250.02, V58.67, ICD10: E11.65, Z79.4 uncontrolled - Add metformin (Glucophage) - TSH BLD today - INSULIN GLARGINE (U-100) 100 UNIT/ML (3 ML) SUBCUTANEOUS PEN - METFORMIN 500 MG TABLET - HGB A1C in 3 months 4. Morbid obesity with BMI of 50.0-59.9, adult (HCC) - ICD9: 278.01, V85.43, ICD10: E66.01, Z68.43 - TSH BLD 5. Dyslipidemia - ICD9: 272.4, ICD10: E78.5 - poor control - Encouraged following a low fat, low cholesterol diet. - Discussed the benefits of regular aerobic exercise and weight loss. - TSH BLD If no thyroid issues will recommend statin therapy. 6. Irritable bowel syndrome with diarrhea - ICD9: 564.1, ICD10: K58.0 Reviewed characteristics of irritable bowel syndrome which could be aggravated by her excessive caffeine and alcohol abuse on weekends. Recommend that she try to cut caffeine back. Increase water, exercise, fiber. We discussed the effects of tobacco but patient tells me that she is no plans to stop smoking. Recommended Citrucel or Metamucil [id number]-izy-tvablax daily. Follow-up if these measures are not helping. Recheck in 3 months. MIHAELA Chan PA-C 07/28/2017 5:27 PM Signed [facility] Fiber: How to Increase the Amount in Your Diet Why should I eat more fiber? Fiber has been shown to have a wide rang of health advantages. Foods that are high in fiber can help in the treatment of constipation, hemorrhoids, diverticulitis (the inflammation of pouches in the digestive tract) and irritable bowel syndrome. Dietary fiber may also help lower your cholesterol, and reduce your risk of coronary heart disease, type 2 diabetes and certain types of cancer. Eating fiber-rich foods also aids in digestion, the absorption of nutrients and helps you to feel [place] longer after a meal (which helps curb overeating and thus weight gain). How can I get more fiber in my diet? It is recommended that men age 50 and younger consume at least 38 grams of fiber per day, while women age 50 and younger should consume at least 25 grams per day. Try the following ideas to increase the fiber in your diet: Eat at least 2 cups of fruits and 2 1/2 cups of vegetables each day. Fruits and vegetables that are high in fiber include: Beans such as navy (1/2 cup = 9.5 grams), kidney (1/2 cup = 8.2 grams), sultana (1/2 cup = 7.7 grams), black (1/2 cup = 7.5), roper (1/2 = 6.6 grams), white (1/2 cup = 6.3 grams) and great northern (1/2 cup = 6.2 grams). Artichokes (1 artichoke = 6.5 grams) Sweet potatoes (1 medium sweet potato = 4.8 grams) Pears (I small pear = 4.4 grams) Green peas (1/2 cup = 4.4 grams) Berries such as raspberries (1/2 cup = 4.0 grams) and blackberries (1/2 cup = 3.8 grams) Prunes (1/2 cup = 3.8 grams) Figs and dates (1/4 cup = 3.6 grams) Spinach (1/2 cup = 3.5 grams) Apples (1 medium apple = 3.3 grams) Oranges (I medium orange = 3.1 grams) Replace refined white bread with whole-grain breads and cereals. Eat brown rice instead of white rice. Eat more of the following foods: Bran muffins Oatmeal Bran or multiple-grain cereals, cooked or dry Brown rice Popcorn 100% whole-wheat bread When eating store-bought foods, check the nutrition information labels for the amounts of dietary fiber in each product. Aim for 5 grams of fiber per serving. Add 1/4 cup of wheat bran (paiz's bran) to foods such as cooked cereal, applesauce or meat loaf. Eat beans each week. Start slowly. When you first add fiber to your diet you may notice bloating, cramping or gas. But you can prevent this by making smaller changes in your diet over a period of time. Start with one of the changes listed above, then wait several days to a week before making another. If one change doesn't seem to work for you, try a different one. Be sure to drink more fluids when you increase the amount of fiber you eat. Liquids help your body digest fiber. Try to drink 8 glasses of no- or low-calorie beverages, such as water, unsweetened tea or diet soda each day. Special Instructions: [place]: Copyright ? [employer] [employer] 2007 Copyright ? 2009 [employer]. All rights reserved. - www.Express Fit Referring Provider: Sonia ORTEGA (MIHAELA) [[id number]] Allergies As of Date: 07/28/2017 Noted Allergy Reaction CATS 10/23/2009 4 - Hives 9 - Itching DUST 10/23/2009 Comments: environmental GRASS POLLEN 10/23/2009 9 - Itching CARDIZEM (DILTIAZEM) 07/25/2013 8 - GI Upset 11 - Vomiting PERCOCET (OXYCODONE-ACETAMINOPHEN)06/07/2016 11 - Vomiting ZYRTEC (CETIRIZINE HCL) 08/22/2013 4 - Hives Date Reviewed: 07/28/2017 Reviewed by: Daja Nunez Ma - Fully Assessed Reason for Visit: Review Of Studies [178] Cmt: recent labs Diarrhea [35] Reason For Visit History Recorded Primary Visit Diagnosis:Essential hypertension [I10] Other Visit Diagnoses:Anxiety [F41.9] Uncontrolled type 2 diabetes mellitus without complication, with long-term current use of insulin (HCC) [E11.65, Z79.4] Morbid obesity with BMI of 50.0-59.9, adult (HCC) [E66.01, Z68.43] Dyslipidemia [E78.5] Irritable bowel syndrome with diarrhea [K58.0] Order(s):TSH BLD [SQTSH] Order #: [id number] FUTURE insulin glargine (BASAGLAR KWIKPEN U-100 INSULIN) 100 unit/mL (3 mL) inpnInject 15 Units subcutaneously daily at bedtime.Disp: 7 PenRfl: 11 metFORMIN (GLUCOPHAGE) 500 mg tabletTake 1 tablet by mouth twice daily with meals.Disp: 60 tabletRfl: 5 HGB A1C [XTWDM1I] Order #: [id number] FUTURE Prescriptions as of 07/28/2017 Sig: INSULIN GLARGINE (U-100) 100 * Inject 15 Units subcutaneousl* MOMETASONE 0.1 % TOPICAL CREAM Apply 1 application to affect* BLOOD SUGAR DIAGNOSTIC STRIPS Test blood sugar(s) 1 times d* PREGABALIN 150 MG CAPSULE Take 1 capsule by mouth three* PEN NEEDLE, DIABETIC 31 GAUGE* Daily injections LANCETS Test blood sugar(s) once time* BLOOD SUGAR DIAGNOSTIC STRIPS Test 1 time daily DX: E11.9 * BLOOD-GLUCOSE METER KIT Test blood sugar once a day (* LEVONORGESTREL 20 MCG/24 HR (* 1 Each by INTRAUTERINE route * METFORMIN 500 MG TABLET Take 1 tablet by mouth twice * Problem List As Of Date 07/28/2017 Noted Resolved Essential hypertension [I10] INVALID FOR* Backache, unspecified [M54.9] INVALID FOR* Anxiety [F41.9] INVALID FOR* Brachial plexus lesions [G54.0] INVALID FOR* Chest pain, atypical [R07.89] INVALID FOR*06/07/2016 Uncontrolled type 2 diabetes mellitus without c*INVALID FOR* Pain in limb [M79.609] INVALID FOR*06/07/2016 Reflex sympathetic dystrophy, unspecified (HCC)*INVALID FOR* Neuropathic pain [M79.2] INVALID FOR* RSD lower limb [G90.529] INVALID FOR* Lupus (HCC) [L93.0] INVALID FOR* More... Fibromyalgia [M79.7] INVALID FOR* Patellofemoral instability of both knees with p*INVALID FOR* Osteoarthritis of right knee [M17.11] INVALID FOR* Pain in right knee [M25.561] INVALID FOR* Dyslipidemia [E78.5] INVALID FOR* Morbid obesity with BMI of 50.0-59.9, adult (HC*INVALID FOR* Tobacco abuse [Z72.0] INVALID FOR* Primary osteoarthritis of right knee [M17.11] INVALID FOR* More... Chronic pain of right knee [M25.561, G89.29] INVALID FOR* More... Other instructions from your clinician: [facility] Fiber: How to Increase the Amount in Your Diet Why should I eat more fiber? Fiber has been shown to have a wide rang of health advantages. Foods that are high in fiber can help in the treatment of constipation, hemorrhoids, diverticulitis (the inflammation of pouches in the digestive tract) and irritable bowel syndrome. Dietary fiber may also help lower your cholesterol, and reduce your risk of coronary heart disease, type 2 diabetes and certain types of cancer. Eating fiber-rich foods also aids in digestion, the absorption of nutrients and helps you to feel [place] longer after a meal (which helps curb overeating and thus weight gain). How can I get more fiber in my diet? It is recommended that men age 50 and younger consume at least 38 grams of fiber per day, while women age 50 and younger should consume at least 25 grams per day. Try the following ideas to increase the fiber in your diet: Eat at least 2 cups of fruits and 2 1/2 cups of vegetables each day. Fruits and vegetables that are high in fiber include: Beans such as navy (1/2 cup = 9.5 grams), kidney (1/2 cup = 8.2 grams), sultana (1/2 cup = 7.7 grams), black (1/2 cup = 7.5), roper (1/2 = 6.6 grams), white (1/2 cup = 6.3 grams) and great northern (1/2 cup = 6.2 grams). Artichokes (1 artichoke = 6.5 grams) Sweet potatoes (1 medium sweet potato = 4.8 grams) Pears (I small pear = 4.4 grams) Green peas (1/2 cup = 4.4 grams) Berries such as raspberries (1/2 cup = 4.0 grams) and blackberries (1/2 cup = 3.8 grams) Prunes (1/2 cup = 3.8 grams) Figs and dates (1/4 cup = 3.6 grams) Spinach (1/2 cup = 3.5 grams) Apples (1 medium apple = 3.3 grams) Oranges (I medium orange = 3.1 grams) Replace refined white bread with whole-grain breads and cereals. Eat brown rice instead of white rice. Eat more of the following foods: Bran muffins Oatmeal Bran or multiple-grain cereals, cooked or dry Brown rice Popcorn 100% whole-wheat bread When eating store-bought foods, check the nutrition information labels for the amounts of dietary fiber in each product. Aim for 5 grams of fiber per serving. Add 1/4 cup of wheat bran (paiz's bran) to foods such as cooked cereal, applesauce or meat loaf. Eat beans each week. Start slowly. When you first add fiber to your diet you may notice bloating, cramping or gas. But you can prevent this by making smaller changes in your diet over a period of time. Start with one of the changes listed above, then wait several days to a week before making another. If one change doesn't seem to work for you, try a different one. Be sure to drink more fluids when you increase the amount of fiber you eat. Liquids help your body digest fiber. Try to drink 8 glasses of no- or low-calorie beverages, such as water, unsweetened tea or diet soda each day. Special Instructions: [place]: Copyright ? [employer] [employer] 2007 Copyright ? 2009 [employer]. All rights reserved. - www.Express Fit Prescriptions ordered this encounter Disp Refills Start End INSULIN GLARGINE (U-100) 100 UNIT/ML* 7 Pen 11 07/28/2017 Route: SUBCUTANEOUS Sig: Inject 15 Units subcutaneously daily at bedtime. METFORMIN 500 MG TABLET 60 t* 5 07/28/2017 Route: ORAL Sig: Take 1 tablet by mouth twice daily with meals. Medications Discontinued During This Encounter insulin glargine (LANTUS SOLOSTAR) 1* 7 Pen 1 04/16/2016 07/28/2017 Route: SUBCUTANEOUS Sig: Inject 15 Units subcutaneously daily at bedtime for 30 days. Disc: Reason for discontinue is not on file. insulin glargine (BASAGLAR KWIKPEN) * 7 Pen 1 06/07/2016 07/28/2017 Route: SUBCUTANEOUS Sig: Inject 15 Units subcutaneously daily at bedtime. Disc: Reason for discontinue is not on file. Follow-up and Disposition History Recorded Encounter Status:Closed by Sonia ORTEGA PA-C on 07/28/17 ALBUMIN/CREAT RATIO Collected: 07/26/2017 Status: F Source: PERRY 5:01 PM [facility] REPOSITORY TYPE CODE TESTS RESULT OUT OF REFERENCE UNITS RANGE LAB UCRR 20-300 mg/dL Creatinine,Ur 152.2 ine,Ran LAB UALBR 0.0-23.0 mg/L Albumin Urine 15.9 Random LAB UALBCR 0-30 mg/g Albumin/Creat 10 Ratio Result Comment: 30 to 300 mg/g indicates an increased risk for diabetic nephropathy. Greater than 300 mg/g is consistent with clinical nephropathy. (Am J Kidney Disease 1995, 25:107) Performed By: #### UACR #### [facility] [address] [place], [place] [address] COMP METABOLIC PANEL Collected: 07/26/2017 Status: F Source: PERRY 4:57 PM [facility] REPOSITORY TYPE CODE TESTS RESULT OUT OF REFERENCE UNITS RANGE LAB TP 6.3-8.0 g/dL Protein, Total 7.2 LAB ALB 3.9-4.9 g/dL Low Albumin 3.2 LAB CA 8.5-10.2 mg/dL Calcium, Total 8.9 LAB TBIL 0.2-1.3 mg/dL Bilirubin, Total 0.3 LAB ALKP 32-117 U/L Alkaline High Phosphatase 119 LAB AST 13-35 U/L AST 26 LAB GLU 74-99 mg/dL Glucose High 263 Result Comment: The [place] Diabetes Association (ADA) provides guidance for cutoff values for fasting glucose and random glucose. The ADA defines fasting as no caloric intake for at least 8 hours. Fas ting plasma glucose results between 100 to 125 mg/dL indicate increased risk for diabetes (prediabetes). Fasting plasma glucose results greater than or equal to 126 mg/dL meet the criteria for diagnosis of diabetes. In the absence of unequivocal hyperglycemia, results should be confirmed by repeat testing. In a patient with classic symptoms of hyperglycemia or hyperglycemic crisis, random plasma glucose results greater than or equal to 200 mg/dL meet the criteria for diagnosis of diabetes. Reference: Standards of Medical Care in Diabetes 2016, [place] [employer]. Diabetes Care. 2016.39(Suppl 1). LAB BUN 7-21 mg/dL BUN 7 LAB CRET 0.58-0.96 mg/dL Creatinine 0.58 LAB NA 136-144 mmol/L Sodium Low 133 LAB K 3.7-5.1 mmol/L Potassium 4.0 LAB CL 97-105 mmol/L Chloride 97 LAB CO2 22-30 mmol/L CO2 23 LAB AGAP 9-18 mmol/L Anion Gap 13 LAB ALT 7-38 U/L ALT 22 LAB GFRAA eGFR- Amer. >60 LAB GFRNAA . eGFR-All Other Races >60 Result Comment: eGFR (Estimated GFR) Units of measure: mL/min/1.73 meters squared eGFR is derived from the reexpressed MDRD Study equation using the following parameters: serum creatinine, age, gender and race. The creatinine assay has been calibrated to be traceable to IDMS. An eGFR <60 mL/min/1.73m2 for >3 months is consistent with chronic kidney disease. Refer to KDOQI guidelines for clinical interpretation. In patients with unstable renal function, e.g. those with acute kidney injury, the eGFR may not accurately reflect actual GFR. Performed By: #### CMP, LIPB, HBA1C #### [facility] [address] [place], [place] [address] LIPID PANEL, BASIC Collected: 07/26/2017 Status: F Source: PERRY 4:57 PM [facility] REPOSITORY TYPE CODE TESTS RESULT OUT OF REFERENCE UNITS RANGE LAB CHOL <200 mg/dL Cholesterol 159 Result Comment: <200 mg/dL, Desirable 200-239 mg/dL, Borderline high >239 mg/dL, High LAB TRIGLY <150 mg/dL Triglyceride High 207 Result Comment: <150 mg/dL, Normal 150-199 mg/dL, Borderline high 200-499 mg/dL, High >499 mg/dL, Very high LAB HDL >39 mg/dL HDL-Cholesterol Low 27 Result Comment: 40-59 mg/dL, Acceptable >59 mg/dL, High: Negative risk factor for coronary heart disease <40 mg/dL, Low: Positive risk factor for coronary heart disease LAB LDL <100 mg/dL LDL-Cholesterol 91 Result Comment: <100 mg/dL, Optimal 100-129 mg/dL, Near optimal/above optimal 130-159 mg/dL, Borderline high 160-189 mg/dL, High >189 mg/dL, Very high Secondary prevention optimal LDL Cholesterol levels are recommended to be < 70 mg/dL LAB NONHDL <130 mg/dL Non HDL High Cholesterol 132 Result Comment: <130 mg/dL, Optimal 130-159 mg/dL, Near optimal/above optimal 160-189 mg/dL, Borderline high 190-219 mg/dL, High >219 mg/dL, Very high Secondary prevention optimal non HDL Cholesterol levels are recommended to be < 100 mg/dL LAB FT hrs Fasting Time 12 LAB VLDL <30 mg/dL High VLDL Cholesterol 41 LAB TCHDL <5.10 High TC:HDL Ratio 5.89 LAB LDLHDL <2.54 High LDL:HDL Ratio 3.37 Result Comment: Reference: 1. National Cholesterol Education Program ATP III Guideline At-A-Glance Quick Desk Reference: National Heart, Lung, and Blood [place]. National Institutes of Health. 2001: NIH Publication No. 01-3305. 2. An International Atherosclerosis Society position paper: global recommendations for the management of dyslipidemia: executive summary, Atherosclerosis. 2014: 232(2):410-413. Performed By: #### CMP, LIPB, HBA1C #### [facility] [address] [place], [place] [address] HEMOGLOBIN A1C Collected: 07/26/2017 Status: F Source: PERRY 4:57 PM [facility] REPOSITORY TYPE CODE TESTS RESULT OUT OF REFERENCE UNITS RANGE LAB HGBA1C 4.3-5.6 % High Hemoglobin A1c 8.7 LAB HBA0 mg/dL Est. Average Glucose 203 Result Comment: eAG: (Estimated average glucose) is a calculated value from HgbA1c and is medical service representative of the average blood glucose level in the last 2-3 month period. Performed By: #### CMP, LIPB, HBA1C #### [facility] [address] [place], [place] [address] PROGRESS Observed: 07/18/2017 Status: COMPLETED Source: PERRY 5:54 PM [facility] REPOSITORY HNO ID: [id number] Author: Eldon Ortiz Service: (none) Author Type: Physician Type: Progress Notes Filed: 07/18/2017 6:07 PM Note Text: Patient presents with: Derm Problem HPI: Patient presents today for office visit for follow up. Nursing Notes: Daja Nunez Ma 07/18/2017 5:47 PM Unsigned DERM:Patient presents with rash. Duration: 2 months. Location: trunk, arms, legs, behind left ear. Changes in soaps or detergents: No. New medications or foods: No. Exposure to others with rash: No. Previous treatments: lotions, powders. Was in [place] [facility]. Developed a rash while there. The nurse looked at it and thought it was eczema. Obviously was exposed to different soaps or detergents. Did switch back to her regular soaps etc but no changes. No one at home with any rash. No rash around the hands or feet. No current rash around her belt line. No fever or chills. Mild scratchy throat since yesterday. Review shows her last sugars were out of control. She is over due for labs. Reminded to get them. She is not taking a number of her meds. She knows her sugars are bad. ALLERGIES: ALLERGIES Allergen Reactions - Cats Hives, Itching - Dust environmental - Grass Pollen Itching - Cardizem [Diltiazem] GI Upset, Vomiting - Percocet [Oxycodone* Vomiting - Zyrtec [Cetirizine * Hives PAST MEDICAL HISTORY Diagnosis Date - Anxiety 12/29/2012 - Arrhythmia - Calculus of gallbladder with other cholecystitis, without mention of obstruction - Diabetes (HCC) - Hypertension PAST SURGICAL HISTORY Procedure Laterality Date - DELIVERY ONLY , low transverse x2 - INSERTION OF IUD 03/09/2013 - LAP CHOLECYSTOENTEROSTOMY 10/04/08 - LAPAROSCOPIC CHOLEYCYSTECTOMY 10/03/08 - LIGATE FALLOPIAN TUBE Tubal ligation FAMILY HISTORY Problem Relation Age of Onset - Heart Mother - Heart Father - Diabetes Mother - Hypertension Mother - Cancer Maternal Grandmother stomach cancer. - Arthritis Mother - Arthritis Father Social History Marital status: Single Spouse name: Years of education: Number of children: 3 Social History Main Topics Smoking status: Current Every Day Smoker Packs/day: 2.00 Years: 20.00 Types: Cigarettes Smokeless status: Never Used Alcohol use: Yes Comment: occ Drug use: No Sexual activity: Yes Partners with: Male control/protection: Tubal Ligation Comment: Mirena inserted 03/09/2013 Social History Narrative Lives with boyfriend. 3 children one of whom lives with her. Reviewed current medications, allergies, past medical history, surgical history, family history and social history today. REVIEW OF SYSTEMS All other reviewed and negative other than HPI. VITALS: BP 128/84 Pulse 100 Resp 16 Wt 117.5 kg (259 lb) BMI 42.12 kg/m2 Last 4 Encounter Wt Readings: Date: Wt: 07/18/2017 117.5 kg (259 lb) 04/12/2017 119.3 kg (263 lb 0.1 oz) 03/16/2017 119.3 kg (263 lb) 02/03/2017 119.3 kg (263 lb) PHYSICAL EXAMINATION: General appearance: Well appearing, alert, in no acute distress, well-hydrated, well nourished. Skin: shows a pink scaly rash almost that ends in a v neck pattern around her neck and shoulders and upper chest. No burrows or central clearing. ASSESSMENT/PLAN: 1. Dermatitis - ICD9: 692.9, ICD10: L30.9 (primary diagnosis) - discussed skin care of rash - follow up if symptoms persist or worsen. - MOMETASONE 0.1 % TOPICAL CREAM 2. Uncontrolled type 2 diabetes mellitus without complication, with long-term current use of insulin ([facility]) - ICD9: 250.02, V58.67, ICD10: E11.65, Z79.4 - advised her she needs to get her sugars and labs checked this week and follow up with Sonia Ortega PA-C soon after. Also expressed concern that if her sugars are significantly elevated, I want to make sure we maximize things before she continues to get steroid injections per pain management. Eldon Ortiz MD CNOV Observed: 07/18/2017 Status: COMPLETED Source: [place] 5:40 PM [facility] RE[facility]ITORY [facility] GINGER ARELLANO ([id number]) 1980 F Date Time Provider Department 07/18/17 5:40 PM [facility] During your visit today, we recorded the following information about you: Pulse Respiration Blood pressure Weight 100/minute 16/minute 128/84 117.5 kg Daja Nunez Ma 07/18/2017 5:57 PM Signed DERM:Patient presents with rash. Duration: 2 months. Location: trunk, arms, legs, behind left ear. Changes in soaps or detergents: No. New medications or foods: No. Exposure to others with rash: No. Previous treatments: lotions, powders. Eldon Ortiz MD 07/18/2017 6:07 PM Signed Patient presents with: Derm Problem HPI: Patient presents today for office visit for follow up. Nursing Notes: Daja Nunez Ma 07/18/2017 5:47 PM Unsigned DERM:Patient presents with rash. Duration: 2 months. Location: trunk, arms, legs, behind left ear. Changes in soaps or detergents: No. New medications or foods: No. Exposure to others with rash: No. Previous treatments: lotions, powders. [facility] [place] [facility]. Developed a rash while there. The nurse looked at it and thought it was eczema. Obviously was exposed to different soaps or detergents. Did switch back to her regular soaps etc but no changes. No one at home with any rash. No rash around the hands or feet. No current rash around her belt line. No fever or chills. Mild scratchy throat since yesterday. Review shows her last sugars were out of control. She is over due for labs. Reminded to get them. She is not taking a number of her meds. She knows her sugars are bad. ALLERGIES: ALLERGIES Allergen Reactions - Cats Hives, Itching - Dust environmental - Grass Pollen Itching - Cardizem [Diltiazem] GI Upset, Vomiting - Percocet [Oxycodone* Vomiting - Zyrtec [Cetirizine * Hives PAST MEDICAL HISTORY Diagnosis Date - Anxiety 12/29/2012 - Arrhythmia - Calculus of gallbladder with other cholecystitis, without mention of obstruction - Diabetes (HCC) - Hypertension PAST SURGICAL HISTORY Procedure Laterality Date - DELIVERY ONLY , low transverse x2 - INSERTION OF IUD 03/09/2013 - LAP CHOLECYSTOENTEROSTOMY 10/04/08 - LAPAROSCOPIC CHOLEYCYSTECTOMY 10/03/08 - LIGATE FALLOPIAN TUBE Tubal ligation FAMILY HISTORY Problem Relation Age of Onset - Heart Mother - Heart Father - Diabetes Mother - Hypertension Mother - Cancer Maternal Grandmother stomach cancer. - Arthritis Mother - Arthritis Father Social History Marital status: Single Spouse name: Years of education: Number of children: 3 Social History Main Topics Smoking status: Current Every Day Smoker Packs/day: 2.00 Years: 20.00 Types: Cigarettes Smokeless status: Never Used Alcohol use: Yes Comment: occ Drug use: No Sexual activity: Yes Partners with: Male control/protection: Tubal Ligation Comment: Mirena inserted 03/09/2013 Social History Narrative Lives with boyfriend. 3 children one of whom lives with her. Reviewed current medications, allergies, past medical history, surgical history, family history and social history today. REVIEW OF SYSTEMS All other reviewed and negative other than HPI. VITALS: BP 128/84 Pulse 100 Resp 16 Wt 117.5 kg (259 lb) BMI 42.12 kg/m2 Last 4 Encounter Wt Readings: Date: Wt: 07/18/2017 117.5 kg (259 lb) 04/12/2017 119.3 kg (263 lb 0.1 oz) 03/16/2017 119.3 kg (263 lb) 02/03/2017 119.3 kg (263 lb) PHYSICAL EXAMINATION: General appearance: Well appearing, alert, in no acute distress, well-hydrated, well nourished. Skin: shows a pink scaly rash almost that ends in a v neck pattern around her neck and shoulders and upper chest. No burrows or central clearing. ASSESSMENT/PLAN: 1. Dermatitis - ICD9: 692.9, ICD10: L30.9 (primary diagnosis) - discussed skin care of rash - follow up if symptoms persist or worsen. - MOMETASONE 0.1 % TOPICAL CREAM 2. Uncontrolled type 2 diabetes mellitus without complication, with long-term current use of insulin (HCC) - ICD9: 250.02, V58.67, ICD10: E11.65, Z79.4 - advised her she needs to get her sugars and labs checked this week and follow up with Sonia Ortega PA-C soon after. Also expressed concern that if her sugars are significantly elevated, I want to make sure we maximize things before she continues to get steroid injections per pain management. Eldon Ortiz MD Referring Provider: SELF [[id number]] Allergies As of Date: 07/18/2017 Noted Allergy Reaction CATS 10/23/2009 4 - Hives 9 - Itching DUST 10/23/2009 Comments: environmental GRASS POLLEN 10/23/2009 9 - Itching CARDIZEM (DILTIAZEM) 07/25/2013 8 - GI Upset 11 - Vomiting PERCOCET (OXYCODONE-ACETAMINOPHEN)06/07/2016 11 - Vomiting ZYRTEC (CETIRIZINE HCL) 08/22/2013 4 - Hives Date Reviewed: 05/03/2017 Reviewed by: Tracy (Alex) ALEX Guadarrama - Fully Assessed Reason for Visit: Derm Problem [33] Primary Visit Diagnosis:Dermatitis [L30.9] Other Visit Diagnosis:Uncontrolled type 2 diabetes mellitus without complication, with long-term current use of insulin (HCC) [E11.65, Z79.4] Order(s):mometasone (ELOCON) 0.1 % creamApply 1 application to affected area once daily.Disp: 45 gRfl: 0 Prescriptions as of 07/18/2017 Sig: PREGABALIN 150 MG CAPSULE Take 1 capsule by mouth three* INSULIN GLARGINE (U-100) 100 * Inject 15 Units subcutaneousl* LEVONORGESTREL 20 MCG/24 HR (* 1 Each by INTRAUTERINE route * MOMETASONE 0.1 % TOPICAL CREAM Apply 1 application to affect* BLOOD SUGAR DIAGNOSTIC STRIPS Test blood sugar(s) 1 times d* PEN NEEDLE, DIABETIC 31 GAUGE* Daily injections LANCETS Test blood sugar(s) once time* BLOOD SUGAR DIAGNOSTIC STRIPS Test 1 time daily DX: E11.9 * BLOOD-GLUCOSE METER KIT Test blood sugar once a day (* Medication notes this encounter ALOGLIPTIN 12.5 MG TABLET >> Dajamanny Nunez Ma 07/18/2017 5:49 PM >> DAJA UNNEZ MA TueJul 18, 2017 5:49 PM Not taking LOSARTAN 50 MG TABLET >> Daja Nunez Ma 07/18/2017 5:49 PM >> DAJA NUNEZ MA TueJul 18, 2017 5:49 PM Not taking GLIMEPIRIDE 2 MG TABLET >> Daja Trey Mendes 07/18/2017 5:49 PM >> DAJA NUNEZ MA [facility] Jul 18, 2017 5:49 PM Not taking METFORMIN 500 MG TABLET >> Dajamanny Nunez Ma 07/18/2017 5:48 PM >> DAJA NUNEZ MA TueJul 18, 2017 5:48 PM Not taking Problem List As Of Date 07/18/2017 Noted Resolved Essential hypertension [I10] INVALID FOR* Backache, unspecified [M54.9] INVALID FOR* Anxiety [F41.9] INVALID FOR* Brachial plexus lesions [G54.0] INVALID FOR* Chest pain, atypical [R07.89] INVALID FOR*06/07/2016 Uncontrolled type 2 diabetes mellitus without c*INVALID FOR* Pain in limb [M79.609] INVALID FOR*06/07/2016 Reflex sympathetic dystrophy, unspecified (HCC)*INVALID FOR* Neuropathic pain [M79.2] INVALID FOR* RSD lower limb [G90.529] INVALID FOR* Lupus (HCC) [L93.0] INVALID FOR* More... Fibromyalgia [M79.7] INVALID FOR* Patellofemoral instability of both knees with p*INVALID FOR* Osteoarthritis of right knee [M17.11] INVALID FOR* Pain in right knee [M25.561] INVALID FOR* Dyslipidemia [E78.5] INVALID FOR* Morbid obesity with BMI of 50.0-59.9, adult (HC*INVALID FOR* Tobacco abuse [Z72.0] INVALID FOR* Primary osteoarthritis of right knee [M17.11] INVALID FOR* More... Chronic pain of right knee [M25.561, G89.29] INVALID FOR* More... Visit Notes: >> Daja Nunez Ma [facility] Jul 18, 2017 5:46 PM Status: Signed DERM:Patient presents with rash. Duration: 2 months. Location: trunk, arms, legs, behind left ear. Changes in soaps or detergents: No. New medications or foods: No. Exposure to others with rash: No. Previous treatments: lotions, powders. Prescriptions ordered this encounter Disp Refills Start End MOMETASONE 0.1 % TOPICAL CREAM 45 g 0 07/18/2017 Route: TOPICAL Sig: Apply 1 application to affected area once daily. Medications Discontinued During This Encounter triamcinolone acetonide (KENALOG) 0.* 30 g 1 12/20/2016 07/18/2017 Route: TOPICAL Sig: Apply 1 application to affected area twice daily. Disc: Erroneous entry nystatin (MYCOSTATIN) powder 1 James* 5 02/17/2016 07/18/2017 Route: TOPICAL Sig: Apply 1 application to affected area three times daily. Disc: Erroneous entry losartan (COZAAR) 50 mg tablet 90 t* 0 02/17/2016 07/18/2017 Route: ORAL Sig: Take 1 tablet by mouth once daily. Disc: Reason for discontinue is not on file. alogliptin 12.5 mg tab 30 t* 5 06/23/2016 07/18/2017 Route: ORAL Sig: Take 1 tablet by mouth once daily. Disc: Reason for discontinue is not on file. glimepiride (AMARYL) 2 mg tablet 30 t* 5 11/13/2015 07/18/2017 Route: ORAL Sig: Take 1 tablet by mouth daily with breakfast. Disc: Reason for discontinue is not on file. metFORMIN (GLUCOPHAGE) 500 mg tablet 120 * 11 11/13/2015 07/18/2017 Route: ORAL Sig: Take 2 tablets by mouth twice daily with meals. . Disc: Reason for discontinue is not on file. Disposition: Return if symptoms worsen or fail to improve. Follow-up and Disposition History Recorded Encounter Status:Closed by ELDON ORTIZ MD on 07/18/17 ALINA Observed: 07/06/2017 Status: COMPLETED Source: PERRY 12:00 AM [facility] REPOSITORY Telephone ([facility]) GINGER ARELLANO ([id number]) 1980 F Date Time Provider Department 07/06/17 KEERTHI LOPEZ PNYANELIS During your visit today, we recorded the following information about you: Nan Gonzalez RN 07/06/2017 10:17 AM Signed Patient calling to schedule second right knee injection. Last injection May 03, 2017. Please call [phone]. Rina Mora Ma 07/06/2017 3:11 PM Signed Called the patient scheduled an injection went over procedure information and the patient is aware. Rina Mora Ma 07/06/2017 3:29 PM Signed Patient stated the last right knee injection she received on May 03, 2017 provided 80% relief. Provided information to MD Lopez. Allergies As of Date: 07/06/2017 Noted Allergy Reaction CATS 10/23/2009 4 - Hives 9 - Itching DUST 10/23/2009 Comments: environmental GRASS POLLEN 10/23/2009 9 - Itching CARDIZEM (DILTIAZEM) 07/25/2013 8 - GI Upset 11 - Vomiting PERCOCET (OXYCODONE-ACETAMINOPHEN)06/07/2016 11 - Vomiting ZYRTEC (CETIRIZINE HCL) 08/22/2013 4 - Hives Date Reviewed: 05/03/2017 Reviewed by: Tracy (Rn) ALEX Guadarrama - Fully Assessed Reason for Visit: Knee Injection [Other] Prescriptions as of 07/06/2017 Sig: BLOOD SUGAR DIAGNOSTIC STRIPS Test blood sugar(s) 1 times d* PREGABALIN 150 MG CAPSULE Take 1 capsule by mouth three* TRIAMCINOLONE ACETONIDE 0.1 %* Apply 1 application to affect* ALOGLIPTIN 12.5 MG TABLET Take 1 tablet by mouth once d* INSULIN GLARGINE (U-100) 100 * Inject 15 Units subcutaneousl* NYSTATIN 100,000 UNIT/GRAM TO* Apply 1 application to affect* LOSARTAN 50 MG TABLET Take 1 tablet by mouth once d* PEN NEEDLE, DIABETIC 31 GAUGE* Daily injections LANCETS Test blood sugar(s) once time* GLIMEPIRIDE 2 MG TABLET Take 1 tablet by mouth daily * METFORMIN 500 MG TABLET Take 2 tablets by mouth twice* BLOOD SUGAR DIAGNOSTIC STRIPS Test 1 time daily DX: E11.9 * BLOOD-GLUCOSE METER KIT Test blood sugar once a day (* LEVONORGESTREL 20 MCG/24 HR (* 1 Each by INTRAUTERINE route * Problem List As Of Date 07/06/2017 Noted Resolved Essential hypertension [I10] INVALID FOR* Backache, unspecified [M54.9] INVALID FOR* Anxiety [F41.9] INVALID FOR* Brachial plexus lesions [G54.0] INVALID FOR* Chest pain, atypical [R07.89] INVALID FOR*06/07/2016 Uncontrolled type 2 diabetes mellitus without c*INVALID FOR* Pain in limb [M79.609] INVALID FOR*06/07/2016 Reflex sympathetic dystrophy, unspecified (HCC)*INVALID FOR* Neuropathic pain [M79.2] INVALID FOR* RSD lower limb [G90.529] INVALID FOR* Lupus (HCC) [L93.0] INVALID FOR* More... Fibromyalgia [M79.7] INVALID FOR* Patellofemoral instability of both knees with p*INVALID FOR* Osteoarthritis of right knee [M17.11] INVALID FOR* Pain in right knee [M25.561] INVALID FOR* Dyslipidemia [E78.5] INVALID FOR* Morbid obesity with BMI of 50.0-59.9, adult (HC*INVALID FOR* Tobacco abuse [Z72.0] INVALID FOR* Primary osteoarthritis of right knee [M17.11] INVALID FOR* More... Chronic pain of right knee [M25.561, G89.29] INVALID FOR* More... Encounter Status:Closed by RINA MORA MA on 3/14/18 ALLERGIES ALLERGIES DATE TYPE / NAME / CODE REACTION SEVERITY SOURCE CODE 05/13/2018 Drug prochlorperazine Hives Unknown Burton Allergy/41 edisylate/[id number](R [facility] [id number][facility] Repository 05/13/2018 Drug prochlorperazine Hives Unknown Burton Allergy/41 maleate/[id number](RXN Community 3679952( [place]) [facility]) Repository 05/13/2018 Drug cetirizine Hives Unknown Anni Allergy/41 HCl/D855897992(RXNORM) Community 4233698([facility]) Repository 05/13/2018 Drug oxycodone/[id number](R Nausea/Vom/Melissa Unknown Anni Allergy/41 XNORM) rrhea Community 6233627([facility]) Repository 05/13/2018 Drug acetaminophen/[id number] Nausea/Vom/Melissa Unknown Anni Allergy/41 05(RXNORM) [facility] [id number]([facility]) Repository 06/07/2016 DRUG/73961 OXYCODONE-ACETAMINOPHE Vomiting [address](OME N [facility] Main D [address]) [place] Repository 08/22/2013 DRUG CETIRIZINE HCL HIVES [address] Main [id number]([facility]) Repository 07/25/2013 DRUG DILTIAZEM GI UPSET [address] Main [id number]([facility]) Repository 10/23/2009 Animal/420 CATS HIVES [facility] 060974([facility]) [place] Repository 10/23/2009 Environ/42 DUST [facility] [id number]([facility] CT) [place] Repository 10/23/2009 DRUG GRASS POLLEN ITCHING [address] Main [id number]([facility]) Repository ENCOUNTERS ENCOUNTERS ADMIT/DISCHARGE ACCOUNT ADMITTING ENCOUNTER LOCATION SOURCE NUMBER CLASS 05/17/2018/05/18/19 [id number] Ambulatory [address] Repository 05/16/2018/05/16/19 [id number] Ambulatory [address] Repository 05/16/2018/05/17/19 [id number] Ambulatory [address] Repository 05/16/2018 [id number] Ambulatory [facility] Main [place] Repository 05/13/2018/05/13/19 [id number] Emergency Anni [facility] Rep[facility] 03/01/2018/03/01/20 [id number] Ambulatory [address] Main [place] Repository 02/16/2018 [id number] Ambulatory [facility] [place] Repository 02/07/2018/02/09/20 [id number] Ambulatory [address] [place] Repository 02/01/2018/02/02/20 [id number] Emergency Burton Burton [facility] Repository 01/30/2018/02/01/20 [id number] Ambulatory [address] Repository 01/18/2018/01/20/20 [id number] Emergency Anni Anni 18 [facility] Hospital ing:ED Repository 01/13/2018/01/17/20 [id number] Ambulatory [address] [place] Repository 01/11/2018/01/13/20 [id number] Ambulatory [address] Repository 12/17/2017/12/18/19 [id number] Emergency Burton Burton [facility] Repository 12/06/2017/12/07/19 [id number] Emergency Burton Burton 18 [facility] Repository 10/24/2017/10/25/19 [id number] Ambulatory [address] [place] Repository 10/24/2017/10/26/19 [id number] Ambulatory [address] Main [place] Repository 10/20/2017/10/22/19 [id number] Ambulatory [address] [place] Repository 10/08/2017/10/09/19 [id number] Emergency Burton Burton 18 [facility] Repository 09/22/2017/09/24/19 [id number] Ambulatory [address] Main [place] Repository 07/28/2017/07/30/19 [id number] Ambulatory [address] [place] Repository 07/26/2017/07/27/19 [id number] Ambulatory [address] Main [place] Repository 07/25/2017/07/26/19 [id number] Emergency Burton [facility] Repository 07/18/2017/07/20/[id number] Repository PAYERS PAYERS ENCOUNTER GUARANTOR PAYER SUBSCRIBER SOURCE 05/13/2018 GINGER S Primary GINGER S Anni [id number] Insurance:CARESOURCEP SMITHDOB: Community [address] olicy Number: [id number], [place] [id number] Repository [address]88[address]Ycu: ([phone]) Date:2018-05-13P O [phone] () [address]ATTN: [place] [address]ZO: 05/13/2018 Secondary NOT GIVENUNK Burton Insurance:SELF PAY [facility] Number: Effective Repository Date:2018-05-13 02/01/2018 GINGER S Primary GINGER S Burton [id number] Insurance:CARESOURCEP SMITHDOB: Community [address] atilio Number: [id number], [place] [id number] Repository 546[address]Cyj: ([phone]) Date:2018-02-01P O [phone] () [address]ATTN: [place] [address]XM: 02/01/2018 Secondary NOT GIVENUNK Burton Insurance:SELF PAY [facility] Number: Effective Repository Date:2018-02-01 01/18/2018 GINGER S Primary GINGER S Anni [id number] Insurance:CARESOURCEP SMITHDOB: Community [address] olradha Number: [id number], [place] [id number] Repository 129[address]Iwk: ([phone]) Date:2018-01-18P O [phone] () [address]ATTN: [place] [address]RA: 01/18/2018 Secondary NOT GIVENUNK Anni Insurance:SELF PAY [facility] Number: Effective Repository Date:2018-01-18 12/17/2017 GINGER S Primary GINGER S Anni [id number] Insurance:CARESOURCEP SMITHDOB: Community [address] olicy Number: [id number], [place] [id number] Repository 332[address]Tva: ([phone]) Date:2017-12-17P O [phone] () [address]ATTN: [place] [address]SL: 12/17/2017 Secondary NOT GIVENUNK Anni Insurance:SELF PAY [facility] Number: Effective Repository Date:2017-12-17 12/06/2017 GINGER S Primary GINGER S Anni [id number] Insurance:CARESOURCEP SMITHDOB: Community [address] olicy Number: [id number], [place] [id number] Repository 110[address]Cki: ([phone]) Date:2017-12-06P O [phone] () [address]ATTN: [place] [address]LD: 12/06/2017 Secondary NOT GIVENUNK Burton Insurance:SELF PAY [facility] Number: Effective Repository Date:2017-12-06 10/08/2017 GINGER S Primary GINGER S Burton [id number] Insurance:CARESOURCEP SMITHDOB: Community [address] olicy Number: [id number], [place] [id number] Repository [address]Dgj: ([phone]) Date:2017-10-08P O [phone] () [address]ATTN: [place] [address]FH: 10/08/2017 Secondary NOT GIVENUNK Anni Insurance:SELF PAY [facility] Number: Effective Repository Date:2017-10-08 07/25/2017 Ginger S Primary Ginger S Burton [id number] Insurance:CARESOURCEP SmithDOB: Community [address] Number: [id number], [place] [id number] Repository [address]Aqb: ([phone]) Date:2017-07-25P O [phone] () [address]ATTN: [place] [address]DU: 07/25/2017 Secondary NOT GIVENUNK Anni Insurance:SELF PA[facility] Effective Repository Date:2017-07-25
== END 2018-05-13 21:24 | disposition home or self-care (01) ==
PROVIDERS: Emergency Provider Emergency Medicine; Family Provider Family Medicine; PCP Family Medicine
DX: B34.9 Viral infection, unspecified (principal); R11.2 Nausea with vomiting, unspecified; R19.7 Diarrhea, unspecified; R05 Cough; J02.9 Acute pharyngitis, unspecified; R59.0 Localized enlarged lymph nodes; R51 Headache; E11.9 Type 2 diabetes mellitus without complications; F41.9 Anxiety disorder, unspecified; F32.9 Major depressive disorder, single episode, unspecified; M79.7 Fibromyalgia; Z87.442 Personal history of urinary calculi; Z79.4 Long term (current) use of insulin; Z79.84 Long term (current) use of oral hypoglycemic drugs; Z79.899 Other long term (current) drug therapy; Z72.0 Tobacco use
CPT/HCPCS: 71046; 87880; 99283

== ENCOUNTER 2018-06-01 20:31 | Emergency (ER) | payer MEDICAID, SELFPAY ==
[2018-06-01 20:33] VITALS: BP 164/98; PULSE 96; RESP 16; TEMP 36.4; O2SAT 96; BMI 42.0
[2018-06-01 20:47] LABS: Bedside Glucose 376 mg/dL (70-110)
--- NOTE | 2018-06-01 22:41 | ED.VISSUMM ---
- ER Visit Summary Date of Service: 06/01/18 Chief Complaint: Elevated blood glucose History of Present Illness: The patient is a 37 F of a glucose today in the 500s. Patient takes 30 units long-acting at night, then she is on metformin 1000 units twice daily there is no short acting. Normal sugars 200-300s. Managed by her PCP. Increase polyuria. No dysuria. No nausea or vomiting. No history of DKA. Has been on insulin for 2 years. States recently over viral pneumonia treated by her PCP with antibiotics. No steroid treatment. Physical Examination: General: Alert and oriented ?3, no acute distress HEENT: Normocephalic, atraumatic. Mild dry mucosa membranes Neck: supple, nontender. Cardiovascular: Regular rate and rhythm, no murmurs Respiratory: Normal breath sounds, symmetric, no distress Abdomen: Soft, nontender, nondistended Extremities: Nontender, no edema, pulses intact ?4 Neuro: no focal neurological deficits. Test Results: BG T: 376. Labs creatinine 0.75, glucose 332 Normal. Acetone negative. UA with leukocytes white blood cells red blood cells. Emergency Department Course and Treatment: Patient elevated glucose, EK workup negative. Urine did note UTI findings. Started on Keflex. Was normal. Labs glucose 332 this is where she lives at home. Discussed with patient need to discuss with her PCP for possible short acting insulin with her regimen. Patient understands and agrees with plan. All questions were answered. Treatment Plan: [] Disposition: Discharge Impression: 1. Urinary tract infection 2. Hyperglycemia This note was generated with [employer] dictation software. It may contain incorrect words, spelling, and punctuation that were not noted in review of the chart prior to signing ED Disposition - Plan for ED Patient: Disposition: Home or Assisted Living Diagnosis: UTI (urinary tract infection), Hyperglycemia Instructions: ED Hyperglycemia Diabetic, ED UTI Cystitis Female Prescriptions: Cephalexin [Keflex] 500 mg PO Q12 #14 capsule Referrals: Eldon Hernandez MD [Primary Care Provider] - Additional Instructions: Discussed with your doctor about short acting insulin regimen. Take antibiotics for urinary tract infection.
[2018-06-01] MEDS: 0.9% Normal Saline 1,000 ML 1000 ML IV (22:57)
[2018-06-01 23:05] LABS: Bacteria 0 SEEN /hpf (None Seen); Mucous, Urine 0 SEEN /hpf (<or=2+)
[2018-06-01 23:07] LABS: Color, Urine Yellow (Yellow); Glucose, Dipstick 1000 mg/dl (Normal); Ketone-Dipstick Negative (Negative); Leukocyte Esterase-Dipstick 100 /ul (Negative); Nitrite-Dipstick Negative (Negative); Occult Blood-Urine 250 /ul (Negative); Protein-Dipstick 15 mg/dl (Negative); Urine Bilirubin Dipstick Negative (Negative); Urine Clarity Cloudy (Clear); Urine Urobilinogen Normal (Normal)
[2018-06-01 23:11] LABS: Absolute Lymphocyte Count 2.39 X10^3/ul (0.83-4.51); Absolute Neutrophil Count 4.3 X10^3/uL (2.0-7.7); Basophil# 0.01 X10^3/uL; Basophil% 0.1 % (0-1); Eosinophil# 0.12 X10^3/uL; Eosinophils% 1.7 % (0-5); Hematocrit 45.2 % (37-47); Hemoglobin 15.4 g/dl (12.0-15.0); Lymphocyte # 2.39 X10^3/ul (4.0); Lymphocyte % 33.2 % (19-41); Mean Corp Hgb Conc 34.1 g/gl (32-36); Mean Corpuscular Hgb 31.4 pg (27.0-32.0); Mean Corpuscular Volume 92.2 fL (81-99); Mean Platelet Vol. 9.6 fl (6.2-12.0); Monocyte# 0.39 X10^3/uL; Monocyte% 5.4 % (0-10); Neutrophil # 4.28 X10^3/uL (2.7-7.7); Neutrophil % 59.5 % (47-70); Platelet Count 252 K/mm3 (150-450); RBC Distribution Width CV 13.3 % (11.6-14.6); RBC Distribution Width SD 44.5 fl (35.1-43.9); White Blood Count 7.2 K/mm3 (4.4-11.0)
[2018-06-01 23:12] LABS: POSITIVE COUNT NO; POSITIVE DIFFERENTIAL NO; POSITIVE MORPHOLOGY NO
[2018-06-01 23:15] LABS: Red Blood Cells-Urine 25-50 SEEN /hpf (0-5)
[2018-06-01 23:16] VITALS: BP 130/79; PULSE 86; RESP 16; O2SAT 98
[2018-06-01 23:16] LABS: Squamous Epithelial Cells - UA 5-10 SEEN /hpf (5-10)
[2018-06-01 23:18] LABS: White Blood Cells 10-25 SEEN /hpf (0-5)
[2018-06-01 23:20] LABS: Trichomonas 0-5 SEEN /hpf (None Seen)
[2018-06-01 23:21] LABS: Anion Gap 7 (5-15); BUN 7 mg/dL (7-18); BUN/Creat Ratio 9.3 RATIO (10-20); Calcium,Total 8.8 mg/dL (8.5-10.1); Chloride 103 mmol/L (98-107); Creatinine, Serum 0.75 mg/dL (0.55-1.02); EST Glomerular Filtration Rate 91 mL/min (>60); Est Glom Filt Rate - Afr Amer 111 mL/min (>60); Estimated Creatinine Clearance 88.68 ml/min; Glucose 332 mg/dL (74-106); Potassium 3.7 mmol/L (3.5-5.1); Sodium Level 136 mmol/L (136-145)
--- NOTE | 2018-06-01 23:21 | ED.RN ---
DR. QUINTERO AWARE OF TRICH IN URINE ANALYSIS
[2018-06-02] MEDS: Cephalexin 250 MG Capsule 500 MG PO (00:24)
[2018-06-02 00:26] VITALS: BP 128/72; PULSE 81; RESP 16; O2SAT 98
== END 2018-06-02 00:26 | disposition home or self-care (01) ==
PROVIDERS: Emergency Provider Emergency Medicine; Family Provider Family Medicine; PCP Family Medicine
DX: N39.0 Urinary tract infection, site not specified (principal); E11.65 Type 2 diabetes mellitus with hyperglycemia; Z87.01 Personal history of pneumonia (recurrent); Z79.84 Long term (current) use of oral hypoglycemic drugs; Z79.4 Long term (current) use of insulin; Z72.0 Tobacco use
CPT/HCPCS: 80048; 81001; 82009; 82962; 85025; 96360; 99284; J7030; A4216

== ENCOUNTER 2018-06-26 08:39 | Emergency (ER) | payer MEDICAID, SELFPAY ==
[2018-06-26 08:40] VITALS: BP 143/93; PULSE 99; RESP 15; TEMP 35.7; BMI 41.8
--- NOTE | 2018-06-26 09:13 | ED.VISSUMM ---
- ER Visit Summary Date of Service: 06/26/18 Chief Complaint: Right perineal abscess History of Present Illness: The patient is a 37 F history of diabetes and obesity. Patient states she is had a 4-day history of a right perineal abscess. Complaining of pain. No fever. No discharge. She has had these several times in the past and always needed them incised and drained. Denies any other complaints. Physical Examination: Vital signs stable. Afebrile. No distress. HEENT exam unremarkable. Lungs clear to auscultation bilaterally. Heart regular rate rhythm no murmur. Abdomen soft and nontender. Morbidly obese. Extremities moving all 4. Neurovascular intact. Back nontender. Her right posterior perineal area between her external area and her buttocks is a quarter sized abscess. It is tender to touch. Indurated. Currently no discharge. No significant cellulitis. No necrosis. This will need to be drained. Neurologically she is awake alert with no focal motor deficits. Test Results: None Emergency Department Course and Treatment: Procedure note: Right peroneal abscess incision and drainage. Topical let applied to the area. Local anesthetic with subcu lidocaine. Incision made with 11 blade scalpel. Probed the wound with forceps. Really no significant pus or blood. 3 inches of quarter inch gauze were placed. Patient tolerated procedure well. Dressing will be applied by the nurse. Treatment Plan: Treat with Keflex 4 times daily. Warm soaks. All up with Dr. Mal Valdivia general surgery per the patient's choice. Disposition: Discharge Impression: Acute right perineal abscess incision and drainage by ER History of insulin-dependent diabetes This note was generated with [employer] dictation software. It may contain incorrect words, spelling, and punctuation that were not noted in review of the chart prior to signing ED Disposition - Plan for ED Patient: Referrals: Eldon Hernandez MD [Primary Care Provider] -
[2018-06-26] MEDS: Lidocaine 4% 50 ML Bottle TOPICAL (09:40)
[2018-06-26 11:44] VITALS: BP 129/66; PULSE 84; RESP 16; O2SAT 98
--- NOTE | 2018-06-26 12:22 | DCINST.ED_ITS ---
ED Disposition - Plan for ED Patient: Disposition: Home or Assisted Living Instructions: ED Abscess IandD Prescriptions: Cephalexin [Keflex] 500 mg PO Q6 10 Days cap Referrals: Mal Valdivia MD [STAFF PHYSICIAN] - As soon as possible Jacquie Davis MD [STAFF PHYSICIAN] - As soon as possible Additional Instructions: Flex 1 pill 4 times a day. Warm soaks in bathtub. Pull the packing out in 4 days. If it falls out do not worry about it. Follow-up with a local general surgeon either Dr. Lorenzo Valdivia from the hospital who you discussed that you would like to see or Dr. Jacquie Davis of the [facility].
[2018-06-26] MEDS: Cephalexin 250 MG Capsule 500 MG PO (12:30)
[2018-06-26 12:33] VITALS: BP 128/67; PULSE 71; RESP 15; O2SAT 98
== END 2018-06-26 12:33 | disposition home or self-care (01) ==
PROVIDERS: Emergency Provider Emergency Medicine; Family Provider Family Medicine; PCP Family Medicine
DX: L02.215 Cutaneous abscess of perineum (principal); E11.9 Type 2 diabetes mellitus without complications; E66.01 Morbid (severe) obesity due to excess calories; Z72.0 Tobacco use; Z79.4 Long term (current) use of insulin; Z79.899 Other long term (current) drug therapy
CPT/HCPCS: 10060

== ENCOUNTER 2018-06-26 20:28 | Emergency (ER) | payer MEDICAID, SELFPAY ==
[2018-06-26 08:40] VITALS: BMI 41.8
[2018-06-26 20:29] VITALS: BP 161/97; PULSE 89; RESP 14; TEMP 36.2; O2SAT 100; BMI 40.9
--- NOTE | 2018-06-26 20:49 | ED.VISSUMM ---
- ER Visit Summary Date of Service: 06/26/18 Chief Complaint: I need pain medication History of Present Illness: The patient is a 37 F presenting requesting a prescription for pain medication. She had an abscess drained in her groin this morning and initially did not want pain medication but has been more sore since the numbing medication wore off and she is requesting a prescription. She denies any new symptoms. Denies wound drainage. Physical Examination: Female nurse present at the bedside. The wound looks great. No drainage. No surrounding tenderness. No necrotizing fasciitis. Test Results: Emergency Department Course and Treatment: Treatment Plan: I gave her a [place] here and wrote her a prescription for short course. Instructed on warm compresses, return precautions, and the importance of close follow-up Disposition: Home stable Impression: Subsequent encounter wound check, med refill This note was generated with [employer] dictation software. It may contain incorrect words, spelling, and punctuation that were not noted in review of the chart prior to signing ED Disposition - Plan for ED Patient: Instructions: ED Abscess IandD Prescriptions: Hydrocodone Bitart/Apap 5-325 [[place] 5MG-325MG] 1 tablet PO Q6H PRN PRN 3 Days #10 tablet PRN Reason: Pain Referrals: Eldon Hernandez MD [Primary Care Provider] -
--- NOTE | 2018-06-26 20:52 | ED.DCSUM_ITS ---
- ER Visit Summary Date of Service: 06/26/18 Chief Complaint: I need pain medication History of Present Illness: The patient is a 37 F presenting requesting a prescription for pain medication. She had an abscess drained in her groin this morning and initially did not want pain medication but has been more sore since the numbing medication wore off and she is requesting a prescription. She denies any new symptoms. Denies wound drainage. Physical Examination: Female nurse present at the bedside. The wound looks great. No drainage. No surrounding tenderness. No necrotizing fasciitis. Test Results: Emergency Department Course and Treatment: Treatment Plan: I gave her a [place] here and wrote her a prescription for short course. Instructed on warm compresses, return precautions, and the importance of close follow-up Disposition: Home stable Impression: Subsequent encounter wound check, med refill This note was generated with [employer] dictation software. It may contain incorrect words, spelling, and punctuation that were not noted in review of the chart prior to signing ED Disposition - Plan for ED Patient: Instructions: ED Abscess IandD Prescriptions: Hydrocodone Bitart/Apap 5-325 [[place] 5MG-325MG] 1 tablet PO Q6H PRN PRN 3 Days #10 tablet PRN Reason: Pain Referrals: Eldon Hernandez MD [Primary Care Provider] -
[2018-06-26 20:59] VITALS: BP 155/70; PULSE 80; RESP 14; O2SAT 98
[2018-06-26] MEDS: HYDROcodone Bitartrate/Apap 5/325 Tablet PO (21:02)
== END 2018-06-26 21:04 | disposition home or self-care (01) ==
PROVIDERS: Emergency Provider Emergency Medicine; Family Provider Family Medicine; PCP Family Medicine
DX: L02.215 Cutaneous abscess of perineum (principal); Z98.890 Other specified postprocedural states; Z79.4 Long term (current) use of insulin; Z79.899 Other long term (current) drug therapy; E66.01 Morbid (severe) obesity due to excess calories; Z72.0 Tobacco use; E11.9 Type 2 diabetes mellitus without complications
CPT/HCPCS: 10060; 99283; 99284

== ENCOUNTER 2018-07-15 18:08 | Emergency (ER) | payer MEDICAID, SELFPAY ==
[2018-06-27 13:41] VITALS: BMI 40.9
[2018-07-15 18:08] VITALS: BP 150/93; PULSE 93; RESP 16; TEMP 36.4; O2SAT 96; BMI 36.6
--- NOTE | 2018-07-15 18:50 | ED.DCSUM_ITS ---
History of Present Illness Chief Complaint: Upper Extremity Injury Informant: Patient Onset: Yesterday Context: Sudden Onset Timing: Continuous Quality: Pain left thumb, thenar eminence and radial side of wrist Location: Left wrist Current Severity: Mild Maximum Severity: Moderate Worsened by: Movement Relieved by: Rest Associated Symptoms: Nothing/none Narrative: Patient presents with atraumatic left wrist pain that she localizes over the r adial side of the distal forearm, and left thumb. She reports pain with movement. She denies fever, chills night sweats. She denies prior history. She has no other complaints. She has not taken anything for it. - Past Medical History (1) Diabetes Status: Chronic (2) HTN (hypertension) Status: Chronic (3) Lupus Status: Chronic Past Medical History - Allergies and Home Meds Allergies/Adverse Reactions: Allergies cetirizine HCl [From Zyrtec] Allergy (Verified 07/15/18 18:10) Hives prochlorperazine edisylate [From Compazine] Allergy (Verified 07/15/18 18:10) Hives prochlorperazine maleate [From Compazine] Allergy (Verified 07/15/18 18:10) Hives acetaminophen [From Percocet] Adverse Reaction (Verified 07/15/18 18:10) Nausea/Vom/Diarrhea oxycodone [From Percocet] Adverse Reaction (Verified 07/15/18 18:10) Nausea/Vom/Diarrhea Primary Care Physician: Eldon Hernandez MD [Primary Care Provider] - Prior records reviewed: Yes - No evidence of renal failure Surgical History: noncontributory, - - Cholecystectomy, IUD Lives: Spouse/ Significant Other, With Family Smoking Status: Current every day smoker Alcohol: None - Family History Maternal Family History: Family History (Last Reviewed 07/04/18 @ 14:46 by Jeanine Méndez) Mother Diabetes Hypertension Father Diabetes Family History: Reports: Diabetes, Heart Disease, - - early age Paternal Family History: Family History (Last Reviewed 07/04/18 @ 14:46 by Jeanine Méndez) Mother Diabetes Hypertension Father Diabetes Family History: Reports: Heart Disease, - - early age Review of Systems General: Denies: Chills, Fever, Malaise, Sweats Musculoskeletal: Denies: Myalgias, Arthralgias, Neck pain, Back pain, Extremity Pain Skin: Denies: Rash, Wounds Neurological: Denies: Weakness, Parasthesia, Numbness Hematologic: Denies: Easy bruising, Easy bleeding Physical Exam Vital Signs/Narrative: Vital Signs Temp Pulse Resp BP Pulse Ox 07/15/18 18:08 97.6 F L 93 16 150/93 H 96 Inital Vital Signs reviewed: Yes General: Well nourished, Well developed, Obese, No Acute Distress Cardiovascular: Regular rate, Regular rhythm, No murmurs Respiratory: No distress, CTA bilaterally, Chest nontender Extremities: No edema, Tenderness, - - Pain to palpation over the extensor tendon. Positive [place] test. There is no erythema, warmth, induration or lymphangitis. There is no epitrochlear or axillary lymphadenopathy. There is no evidence of trauma. There is no subungual hematoma noted. Capillary refill is normal. Skin: Normal color, No rash. Negative for: Cyanosis Neurological: Alert, Oriented x3, Cranial nerves II-XII grossly intact, Normal Strength, Normal Sensation Diagnostic/Tx/Re-eval - Medical Decision Making Patient history and physical exam is consistent with DeQuervains tenosynovitis. Since there is no evidence of renal involvement will treat with NSAID and thumb spica splint. Radiologic imaging is not indicated. ED Disposition - Plan for ED Patient: Disposition: Home or Assisted Living Diagnosis: Tenosynovitis, de Quervain Instructions: What Is De Quervain Tenosynovitis?, ED De Quervain Tenosynovitis Prescriptions: Naproxen [Naprosyn] 500 mg PO BID #14 tablet Referrals: Eldon Hernandez MD [Primary Care Provider] -
[2018-07-15 19:01] VITALS: PULSE 71; RESP 16; O2SAT 98
[2018-07-15] MEDS: Naproxen 375 MG Tablet PO (19:01)
== END 2018-07-15 19:02 | disposition home or self-care (01) ==
PROVIDERS: Emergency Provider Emergency Medicine; Family Provider Family Medicine; PCP Family Medicine
DX: M65.4 Radial styloid tenosynovitis [de Quervain] (principal); F17.200 Nicotine dependence, unspecified, uncomplicated; E66.9 Obesity, unspecified
CPT/HCPCS: 99283

== ENCOUNTER 2018-10-27 23:08 | Emergency (ER) | payer MEDICAID, SELFPAY ==
[2018-10-27 23:09] VITALS: BP 163/107; PULSE 103; RESP 16; TEMP 36; O2SAT 97; BMI 35.9
--- NOTE | 2018-10-27 23:26 | ED.DCSUM_ITS ---
History of Present Illness Chief Complaint: Female C/O Informant: Patient Pain: Pelvic Pain Onset: Days - 2 Context: Gradual Onset Timing: Waxes and wanes Quality: Cramping Location: - - pelvis, worse on left Current Severity: Mild Maximum Severity: Moderate Worsened by: Movement - Bending over Relieved by: Remaining Still Issue: Vaginal bleeding Onset: Weeks - 1.5 Current Severity: Spotting Maximum Severity: Similar to period Associated Symptoms: Dysuria, Frequency. Negative for: Urgency, Hematuria Sexually: Active, Single Partner Control: IUD Narrative: Patient states he has a Mirena implanted for the last several months, it is her second 1, it was placed after the first 1 ran its life of 5-6 years. She feels like it may be out of place for the may be a problem with it. She is bleeding longer than usual, this episode of vaginal bleeding started with what was an expected menstrual cycle which she still has with her IUD, but has lasted longer although the bleeding is only spotting for right now. She developed pain that started 2 days ago. She first noticed it when she was urinating. She was diagnosed with a UTI 2 weeks ago and is still on the last couple days of antibiotics, Keflex. She denies any fevers, nausea/vomiting, back discomfort. She denies any recent injuries. Onset not related to intercourse. - Past Medical History (1) Anxiety Status: Chronic (2) Diabetes Status: Chronic (3) HTN (hypertension) Status: Chronic (4) Lupus Status: Chronic Past Medical History - Allergies and Home Meds Allergies/Adverse Reactions: Allergies cetirizine HCl [From Zyrtec] Allergy (Verified 10/27/18 23:09) Hives prochlorperazine edisylate [From Compazine] Allergy (Verified 10/27/18 23:09) Hives prochlorperazine maleate [From Compazine] Allergy (Verified 10/27/18 23:09) Hives acetaminophen [From Percocet] Adverse Reaction (Verified 10/27/18 23:09) Nausea/Vom/Diarrhea oxycodone [From Percocet] Adverse Reaction (Verified 10/27/18 23:09) Nausea/Vom/Diarrhea Primary Care Physician: Hafsa Peterson [STAFF PHYSICIAN] - 3-5 Days if not improving Eldon Hernandez MD [Primary Care Provider] - Doctors: Dr. Peterson, gynecology Surgical History: noncontributory, - - Cholecystectomy, IUD Smoking Status: Current every day smoker - Family History Maternal Family History: Family History (Last Reviewed 07/04/18 @ 14:46 by Jeanine Méndez) Mother Diabetes Hypertension Father Diabetes Family History: Reports: Diabetes, Heart Disease, - - early age Paternal Family History: Family History (Last Reviewed 07/04/18 @ 14:46 by Jeanine Méndez) Mother Diabetes Hypertension Father Diabetes Family History: Reports: Heart Disease, - - early age Review of Systems General: Denies: Chills, Fever, Sweats Eyes: Denies: Visual changes - bilaterally, Diplopia ENT: Denies: Rhinorrhea, Sore throat Cardiovascular: Denies: Chest pain, Palpitations Respiratory: Denies: Dyspnea, Cough, Dyspnea on exertion Gastrointestinal: Reports: Abdominal pain. Denies: Nausea, Vomiting, Diarrhea, Melena, Hematochezia Genitourinary: Reports: Dysuria, Frequency, - - vaginal bleeding/spotting. Denies: Hematuria Musculoskeletal: Denies: Back pain, Extremity Pain Skin: Denies: Rash, Wounds Neurological: Denies: Headache, Weakness, Numbness Physical Exam Vital Signs/Narrative: Vital Signs Temp Pulse Resp BP Pulse Ox 10/27/18 23:09 96.8 F L 103 H 16 163/107 H 97 Inital Vital Signs reviewed: Yes General: Well nourished, Well developed, Obese, - - well-appearing, nad Head: Normocephalic, Atraumatic Eyes: Perrl, EOMI ENT: Moist mucous membranes, No rhinorrhea Neck: Supple, Nontender Cardiovascular: Regular rate, Regular rhythm, No murmurs. Negative for: Tachycardia Respiratory: No distress, CTA bilaterally, Chest nontender Abdomen: Soft, Nontender, Nondistended, Normal bowel sounds : Speculum exam: Normal external genitalia, No vaginal lesions, No vaginal discharge, No active bleeding, Old blood - scant amt at os, - - IUD filament seen, no other parts visible Extremities: Nontender, No edema Skin: Normal color, No rash, No Trauma Neurological: Alert, Oriented x3, Cranial nerves II-XII grossly intact, Normal Strength, Normal Sensation, Normal Gait Psychological: Normal affect, Normal Mood Diagnostic/Tx/Re-eval Laboratory Tests 10/27/18 10/27/18 Range/Units 23:29 23:29 Urine Color Yellow (Yellow) Urine Clarity Clear (Clear) Urine pH 7.0 (5.0 - 8.0) Ur Specific [place] 1.010 (1.002-1.030) Urine Protein 15 H (Negative) mg/dl Urine Glucose (UA) 250 H (Normal) mg/dl Urine Ketones Negative (Negative) mg/dl Urine Occult Blood 250 H (Negative) /ul Urine Nitrite Negative (Negative) Urine Bilirubin Negative (Negative) mg/dL Urine Urobilinogen Normal (Normal) mg/dl Ur Leukocyte Esterase 100 H (Negative) /ul Urine RBC 5-10 SEEN (0-5) /hpf Urine WBC 10-25 SEEN (0-5) /hpf Ur Squamous Epith Cells 5-10 SEEN (5-10) /hpf Urine Bacteria 1+ (None Seen) /hpf Urine Mucus 0 SEEN (<or=2+) /hpf Urine Trichomonas 0-5 SEEN (None Seen) /hpf Urine Test Negative Negative - Medical Decision/Diagnostic Studies Pelvic shows the element of the IUD as expected, no other abnormalities. Her abdominal/pelvic exam is very benign, and given this I am at a very low suspicion for uterine perforation or other emergent complication of IUD. Her urine does appear to be infected, I suspect it is probably resistant to the cephalexin she is currently taking, and it may be causing all of her symptoms with no issues of the IUD. I discussed this with her and my recommendation to switch antibiotics, she was placed on Bactrim for 1 week, and her urine was cultured, I do not have access to any recent urine cultures, I checked. She is comfortable with this plan. ED Disposition - Plan for ED Patient: Disposition: Home or Assisted Living Diagnosis: UTI (urinary tract infection), Pelvic pain Instructions: PELVIC PAIN, Unknown Cause, Bladder Infection, Female (Adult) Prescriptions: Sulfamethoxazole/Trimethoprim [Bactrim Ds Tablet] 1 ea PO BID #14 tab Transmission Status: Pending to [facility] Referrals: Eldon Hernandez MD [Primary Care Provider] - Hafsa Peterson [STAFF PHYSICIAN] - 3-5 Days if not improving
[2018-10-27 23:39] LABS: Color, Urine Yellow (Yellow); Glucose, Dipstick 250 mg/dl (Normal); Ketone-Dipstick Negative (Negative); Leukocyte Esterase-Dipstick 100 /ul (Negative); Mucous, Urine 0 SEEN /hpf (<or=2+); Nitrite-Dipstick Negative (Negative); Occult Blood-Urine 250 /ul (Negative); Protein-Dipstick 15 mg/dl (Negative); Urine Bilirubin Dipstick Negative (Negative); Urine Clarity Clear (Clear); Urine Urobilinogen Normal (Normal)
[2018-10-27 23:43] LABS: Internal QC Validated? YES +Cl - CLEAR BKGD; Pregnancy, Urine Negative Negative
[2018-10-27 23:46] LABS: Red Blood Cells-Urine 5-10 SEEN /hpf (0-5); Squamous Epithelial Cells - UA 5-10 SEEN /hpf (5-10); White Blood Cells 10-25 SEEN /hpf (0-5)
[2018-10-27 23:47] LABS: Bacteria 1+ /hpf (None Seen); Trichomonas 0-5 SEEN /hpf (None Seen)
[2018-10-28] MEDS: Smz/Tmp Ds Tablet 1 TABLET PO (00:22)
[2018-10-28 00:23] VITALS: BP 148/99; PULSE 96; O2SAT 97
== END 2018-10-28 00:28 | disposition home or self-care (01) ==
PROVIDERS: Emergency Provider Emergency Medicine; Family Provider Family Medicine; PCP Family Medicine
DX: N39.0 Urinary tract infection, site not specified (principal); R10.2 Pelvic and perineal pain; E66.9 Obesity, unspecified; F41.9 Anxiety disorder, unspecified; E11.9 Type 2 diabetes mellitus without complications; Z97.5 Presence of (intrauterine) contraceptive device; Z79.4 Long term (current) use of insulin; Z79.84 Long term (current) use of oral hypoglycemic drugs; Z79.899 Other long term (current) drug therapy; F17.200 Nicotine dependence, unspecified, uncomplicated
CPT/HCPCS: 81001; 81025; 87086; 87088; 99283

== ENCOUNTER 2018-12-30 19:22 | Emergency (ER) | payer MEDICAID, SELFPAY ==
[2018-12-30 19:23] VITALS: BP 155/81; PULSE 109; RESP 15; TEMP 36.7; O2SAT 94; BMI 40.3
[2018-12-30] MEDS: Clindamycin HCl 150 MG Capsule 300 MG PO (21:57)
--- NOTE | 2018-12-30 22:15 | ED.DCSUM_ITS ---
- ER Visit Summary Date of Service: 12/30/18 Chief Complaint: Right axillary abscess History of Present Illness: The patient is a 38 F who presents with abscess in her right axilla that is been getting progressively worse over the past 2 weeks. Patient describes the pain as it just hurts. Patient states the pain is worse with pressure to the area. Patient states pain is just in the right axilla. Patient denies any fevers or chills. Patient denies any discharge or drainage. Patient denies any nausea or vomiting. Patient denies any chest pain or shortness of breath. Physical Examination: Vital signs are stable. Patient is afebrile. Patient is in no acute distress. Oral mucosa is pink and moist. Neck is supple. Trachea is midline. There is no JVD or lymphadenopathy. Heart was regular rate and rhythm. Lungs are clear and equal bilaterally. Abdomen is soft. Bowel sounds are normal. There is no tenderness. Skin is warm dry. There is erythema and some mild induration in the right axilla. There is mild fluctuance. There is no active discharge or drainage. Cranial nerves II through XII are intact. There are no focal motor or sensory deficits noted. Emergency Department Course and Treatment: Wound was cleaned and anesthetized 1% plain lidocaine locally. A #11 blade scalpel was used to make a cruciate incision. Large amount of purulent drainage was expressed. The abscess was probed with hemostats and loculations were broken up. The wound was left open. Patient was given a dose of clindamycin here. Patient was given a prescription for clindamycin. Patient was instructed to follow-up with her primary care physician in 5 to 7 days. Patient understood and was agreeable with the plan. All questions were answered. Disposition: Discharge home Impression: Right axillary abscess This note was generated with [employer] dictation software. It may contain incorrect words, spelling, and punctuation that were not noted in review of the chart prior to signing ED Disposition - Plan for ED Patient: Disposition: Home or Assisted Living Diagnosis: Abscess of right axilla Instructions: ABSCESS, Incision and Drainage Prescriptions: Clindamycin HCl [Cleocin] 300 mg PO Q6H #40 cap Prescription Printed Referrals: Eldon Hernandez MD [Primary Care Provider] - 3-5 Days
== END 2018-12-30 22:41 | disposition home or self-care (01) ==
PROVIDERS: Emergency Provider Emergency Medicine; Family Provider Family Medicine; PCP Family Medicine
DX: L02.411 Cutaneous abscess of right axilla (principal)
CPT/HCPCS: 10060; 99283

== ENCOUNTER 2019-01-16 01:16 | Emergency (ER) | payer MEDICAID, SELFPAY ==
[2019-01-16 01:18] VITALS: BP 160/113; PULSE 118; RESP 18; TEMP 36.5; O2SAT 96; BMI 39.4
--- NOTE | 2019-01-16 01:33 | ED.VIS.GEN ---
History of Present Illness Chief Complaint: Lower Extremity Injury Narrative: Patient is a 38-year-old female who presents with lower back pain and posterior thigh pain. She complains of cramping pain in both buttocks and posterior thighs. This is worse when she has been standing for long period of time. She has chronic swelling of her right foot for 17 years which she attributes to a fracture at the time. No other leg swelling. She denies weakness numbness tingling. No history of trauma or injury. No fevers no abdominal pain no urinary retention or fecal incontinence. Past Medical History - Allergies and Home Meds Allergies/Adverse Reactions: Allergies cetirizine HCl [From Zyrtec] Allergy (Verified 01/16/19 01:17) Hives prochlorperazine edisylate [From Compazine] Allergy (Verified 01/16/19 01:17) Hives prochlorperazine maleate [From Compazine] Allergy (Verified 01/16/19 01:17) Hives acetaminophen [From Percocet] Adverse Reaction (Verified 01/16/19 01:17) Nausea/Vom/Diarrhea oxycodone [From Percocet] Adverse Reaction (Verified 01/16/19 01:17) Nausea/Vom/Diarrhea Primary Care Physician: Eldon Hernandez MD [Primary Care Provider] - Past Medical History: - - Diabetes Surgical History: noncontributory, - - Cholecystectomy, IUD Smoking Status: Current every day smoker - Family History Maternal Family History: Family History (Last Reviewed 07/04/18 @ 14:46 by Jeanine Méndez) Mother Diabetes Hypertension Father Diabetes Family History: Reports: Diabetes, Heart Disease, - - early age Paternal Family History: Family History (Last Reviewed 07/04/18 @ 14:46 by Jeanine Méndez) Mother Diabetes Hypertension Father Diabetes Family History: Reports: Heart Disease, - - early age Review of Systems All systems negative except as indicated General: Denies: Fever Cardiovascular: Denies: Chest pain Respiratory: Denies: Dyspnea Gastrointestinal: Denies: Abdominal pain, Nausea, Vomiting, Diarrhea Musculoskeletal: Reports: Back pain, Extremity Pain Physical Exam Vital Signs/Narrative: Vital Signs Temp Pulse Resp BP Pulse Ox 01/16/19 01:18 97.7 F L 118 H 18 160/113 H 96 Inital Vital Signs reviewed: Yes General: Well nourished Head: Normocephalic Eyes: EOMI ENT: Moist mucous membranes Neck: Supple Cardiovascular: Regular rate, Regular rhythm Respiratory: No distress, CTA bilaterally Abdomen: Soft, Nontender Back: - - Paraspinal lumbar tenderness Extremities: - - Bilateral posterior thigh tenderness she has edema of the right foot which she reports is chronic no calf tenderness or leg edema she has easily palpable symmetric dorsalis pedis pulses with brisk capillary refill normal strength with dorsiflexion, plantarflexion, extensor hallucis longus, normal sensation to light touch, negative straight leg raise bilaterally Skin: Normal color Neurological: Alert Psychological: Normal affect Diagnostic/Tx/Re-eval - Medical Decision Making Given that the patient does have reproducible thigh tenderness this could be related to hamstring strain. However she also complains of lower back pain with pain in the buttocks worse with standing this may be lumbar radiculopathy. Either way I feel she would benefit from treatment with anti-inflammatories. She does not have evidence of serious acute pathology such as cauda equina syndrome or epidural abscess. She is neurovascularly intact with normal sensation strong pulses her symptoms are symmetric she does not have any calf tenderness or leg edema and I am not concerned for process such as DVT. She was given naproxen here as well as a prescription for the same but does understand to follow-up with her primary care physician or to return for new or worsening symptoms. She was discharged. ED Disposition - Plan for ED Patient: Disposition: Home or Assisted Living Diagnosis: Bilateral thigh pain Instructions: BACK PAIN w/ SCIATICA, MUSCLE STRAIN, Extremity Prescriptions: Naproxen [Naprosyn] 500 mg PO BID #20 tab Prescription Printed Referrals: Eldon Hernandez MD [Primary Care Provider] -
[2019-01-16 01:51] VITALS: RESP 16
[2019-01-16] MEDS: Naproxen 500 MG Tablet PO (01:51)
== END 2019-01-16 01:52 | disposition home or self-care (01) ==
LOC: ED 01:41
PROVIDERS: Emergency Provider Emergency Medicine; Family Provider Family Medicine; PCP Family Medicine
DX: M79.652 Pain in left thigh (principal); M79.651 Pain in right thigh; E11.9 Type 2 diabetes mellitus without complications; F17.200 Nicotine dependence, unspecified, uncomplicated; Z82.49 Family history of ischemic heart disease and other diseases of the circulatory system; Z88.5 Allergy status to narcotic agent; Z88.8 Allergy status to other drugs, medicaments and biological substances; M54.5 Low back pain; M79.89 Other specified soft tissue disorders
CPT/HCPCS: 99283

== ENCOUNTER 2019-04-04 10:22 | Emergency (ER) | payer MEDICAID, SELFPAY ==
[2019-04-04 10:23] VITALS: BP 163/97; PULSE 98; RESP 17; TEMP 36.5; O2SAT 98; BMI 39.4
--- NOTE | 2019-04-04 10:47 | ED.DCSUM_ITS ---
- ER Visit Summary Date of Service: 04/04/19 Chief Complaint: Atraumatic right lateral neck pain History of Present Illness: The patient is a 38 F history of diabetes. States he developed neck pain on Tuesday it was worse yesterday and worse to move. No falls or trauma. No neck history. No prior neck surgery. No fever. She denies any weakness or numbness to her upper or lower extremities. Physical Examination: Middle-aged female no acute distress vital signs stable afebrile. HEENT exam unremarkable neck she has right paracervical soft tissue tenderness consistent with muscle spasm. There is no bony tenderness or deformity. Left side is unremarkable nontender. Trachea midline. He has worse discomfort with rotation of her neck to the left. She is able to do flexion extension. Lungs clear to auscultation. Heart regular rhythm no murmur. Abdomen soft nontender. She is moving all 4 extremities. Neurovascular intact with normal 5-5 motor strength. Neurologically she is awake and alert with no focal motor deficits. Test Results: None Emergency Department Course and Treatment: History and exam are consistent with muscle spasm of the neck. She will be given 1 p.o. Valium here and Motrin. She has a ride home. Treatment Plan: Valium 5 mg p.o. every 6 hours #10 no refill. Hot shower. Warm bath. Motrin. Follow-up if not improving. Disposition: Discharge Impression: Right neck muscle spasm History of diabetes This note was generated with [employer] dictation software. It may contain incorrect words, spelling, and punctuation that were not noted in review of the chart prior to signing ED Disposition - Plan for ED Patient: Referrals: Eldon Hernandez MD [Primary Care Provider] -
--- NOTE | 2019-04-04 10:49 | ED.DEP ---
ED Disposition - Plan for ED Patient: Disposition: Home or Assisted Living Instructions: Muscle Spasm Prescriptions: Diazepam [Valium] 5 mg PO 4X/DAY PRN PRN 4 Days #12 tab PRN Reason: Muscle Spasm Prescription Printed Referrals: Eldon Hernandez MD [Primary Care Provider] - 1 Week if not improving Additional Instructions: Motrin for pain and inflammation. Valium as a muscle relaxant. Do not drink or drive while using the Valium. Hot shower, warm bath, massage to your neck.
[2019-04-04] MEDS: Ibuprofen 600 MG Tablet PO (10:56)
[2019-04-04] MEDS: diazePAM 5 MG Tablet PO (10:57)
== END 2019-04-04 11:05 | disposition home or self-care (01) ==
LOC: ED 10:51
PROVIDERS: Emergency Provider Emergency Medicine; Family Provider Family Medicine; PCP Family Medicine
DX: M62.838 Other muscle spasm (principal); E11.9 Type 2 diabetes mellitus without complications; Z72.0 Tobacco use; Z79.4 Long term (current) use of insulin
CPT/HCPCS: 99283

== ENCOUNTER 2019-04-13 21:57 | Emergency (ER) | payer MEDICAID, SELFPAY ==
[2019-04-13 21:59] VITALS: BP 150/94; PULSE 90; RESP 18; TEMP 36.3; O2SAT 96; BMI 39.6
--- NOTE | 2019-04-13 22:52 | ED.DCSUM_ITS ---
- ER Visit Summary Date of Service: 04/13/19 Chief Complaint: Cold History of Present Illness: The patient is a 38 F with 5 days of cold symptoms including cough, runny nose, headache, ear pain, body aches. Patient denies fevers, chest pain, shortness of breath. Denies any neurologic symptoms. She has been trying [id number] remedies and ibuprofen with minimal improvement. She has a history of diabetes, lupus, and anxiety among others. Physical Examination: Afebrile and vital signs unremarkable. Alert and oriented. No acute distress. HEENT exam shows posterior oral pharyngeal erythema and she has bilateral TM effusions. Neck is nontender with good range of motion. No lymphadenopathy. Heart regular. Lungs clear. Skin appears normal. Test Results: None indicated Emergency Department Course and Treatment: Patient has upper respiratory symptoms which have been persistent. She has a history of diabetes and lupus. Will treat with Afrin and Tylenol here. Course of Augmentin. Follow-up with [facility] care. Treatment Plan: As above Disposition: Discharge Impression: 1. Sinusitis This note was generated with [employer] dictation software. It may contain incorrect words, spelling, and punctuation that were not noted in review of the chart prior to signing ED Disposition - Plan for ED Patient: Referrals: Eldon Hernandez MD [Primary Care Provider] -
--- NOTE | 2019-04-13 22:54 | ED.DEP ---
ED Disposition - Plan for ED Patient: Instructions: Adult Self-Care for Colds and Flu Prescriptions: Amox/Clavulanate Tablet [Augmentin Tablet] 875 mg PO Q12H #20 tab Prescription Printed Referrals: Eldon Hernandez MD [Primary Care Provider] -
[2019-04-13] MEDS: Amox/Clavulanate 875 MG Tablet PO (23:09)
[2019-04-13] MEDS: Oxymetazoline 0.05% 1 SPRAY SPRAY.BTL 2 SPRAY NASAL (23:09)
[2019-04-13] MEDS: Acetaminophen 500 MG Tablet 1000 MG PO (23:09)
[2019-04-13 23:11] VITALS: RESP 16
== END 2019-04-13 23:12 | disposition home or self-care (01) ==
PROVIDERS: Emergency Provider Emergency Medicine; Family Provider Family Medicine; PCP Family Medicine
DX: J32.9 Chronic sinusitis, unspecified (principal); I10 Essential (primary) hypertension; E11.9 Type 2 diabetes mellitus without complications; Z79.84 Long term (current) use of oral hypoglycemic drugs; Z79.4 Long term (current) use of insulin; Z72.0 Tobacco use
CPT/HCPCS: 99283

== ENCOUNTER 2019-10-15 17:11 | Emergency (ER) | payer MEDICAID, SELFPAY ==
[2019-10-15 17:12] VITALS: BP 154/95; PULSE 85; RESP 18; TEMP 36.6; O2SAT 96; BMI 39.4
--- NOTE | 2019-10-15 17:37 | ED.VIS.GEN ---
History of Present Illness Chief Complaint: Back Narrative: This patient is a 39-year-old female who presents with lower back pain. She does have a prior history of back problems and she previously had a nerve block injection. Her pain began about 4 days ago. She initially had some relief with ibuprofen. Her pain is been worsening since that time. It is all isolated to the lower back. It is aching or squeezing in nature. It does not radiate. She has no radicular symptoms no radiation into the buttock legs groin. She has no saddle anesthesia. She denies any urinary retention or fecal incontinence. No abdominal pain. No recent illness. 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 Patient's pain is worse with bending or sitting and relieved by standing up and standing still. Past Medical History - Allergies and Home Meds Allergies/Adverse Reactions: Allergies cetirizine HCl [From Zyrtec] Allergy (Verified 10/15/19 17:14) Hives prochlorperazine edisylate [From Compazine] Allergy (Verified 10/15/19 17:14) Hives prochlorperazine maleate [From Compazine] Allergy (Verified 10/15/19 17:14) Hives acetaminophen [From Percocet] Adverse Reaction (Verified 10/15/19 17:14) Nausea/Vom/Diarrhea oxycodone [From Percocet] Adverse Reaction (Verified 10/15/19 17:14) Nausea/Vom/Diarrhea Primary Care Physician: Eldon Hernandez MD [Primary Care Provider] - Past Medical History: - - Diabetes, hypertension Surgical History: noncontributory, - - Cholecystectomy, IUD Smoking Status: Current every day smoker - Family History Maternal Family History: Family History (Last Reviewed 07/04/18 @ 14:46 by Jeanine Méndez) Mother Diabetes Hypertension Father Diabetes Family History: Reports: Diabetes, Heart Disease, - - early age Paternal Family History: Family History (Last Reviewed 07/04/18 @ 14:46 by Jeanine Méndez) Mother Diabetes Hypertension Father Diabetes Family History: Reports: Heart Disease, - - early age Physical Exam Vital Signs/Narrative: Vital Signs Temp Pulse Resp BP Pulse Ox 10/15/19 17:12 97.8 F 85 18 154/95 H 96 General: Well nourished, Well developed Head: Normocephalic Eyes: EOMI ENT: Moist mucous membranes Neck: Supple Cardiovascular: Regular rate Respiratory: No distress Abdomen: Soft, Nontender Back: - - Patient does have bilateral paraspinal lumbar tenderness left greater than right no midline spinal tenderness Extremities: - - Normal strength and sensation of the lower extremities, no edema, brisk capillary refill, normal motor strength Skin: Normal color Neurological: Alert Psychological: Normal affect Diagnostic/Tx/Re-eval - Medical Decision Making Patient was treated with intramuscular Toradol and Norflex here and provided with prescriptions for naproxen and Flexeril. She was advised on supportive care. She understands to return for new or worsening symptoms. Patient was discharged. ED Disposition - Plan for ED Patient: Disposition: Home or Assisted Living Diagnosis: Lumbosacral strain Instructions: ED LUMBAR SPRAIN/STRAIN Prescriptions: cycloBENZAPRine HCl [Flexeril] 10 mg PO TID PRN #20 tab PRN Reason: Muscle Spasm Prescription Printed Naproxen [Naprosyn] 500 mg PO BID #20 tab Prescription Printed Referrals: Eldon Hernandez MD [Primary Care Provider] -
[2019-10-15] MEDS: Ketorolac 60 MG/2 ML Vial IM (17:44)
[2019-10-15] MEDS: Orphenadrine 60 MG/2 ML Ampul IM (17:45)
[2019-10-15 18:24] VITALS: RESP 18
== END 2019-10-15 18:25 | disposition home or self-care (01) ==
LOC: ED 18:03
PROVIDERS: Emergency Provider Emergency Medicine; PCP Family Medicine
DX: S39.012A Strain of muscle, fascia and tendon of lower back, initial encounter (principal); I10 Essential (primary) hypertension; E11.9 Type 2 diabetes mellitus without complications; Z79.899 Other long term (current) drug therapy; Z79.4 Long term (current) use of insulin; F17.210 Nicotine dependence, cigarettes, uncomplicated
CPT/HCPCS: 96372; 99282

== ENCOUNTER 2019-12-05 07:11 | Emergency (ER) | payer MEDICAID, SELFPAY ==
[2019-12-05 07:12] VITALS: BP 159/96; PULSE 104; RESP 17; TEMP 36.3; O2SAT 98; BMI 34.4
--- NOTE | 2019-12-05 07:43 | ED.DCSUM_ITS ---
- ER Visit Summary Date of Service: 12/05/19 Chief Complaint: [Back pain] History of Present Illness: The patient is a 39 F [presents to the emergency department complaint of back pain that started 5 days ago. Patient denies any injury. She complains of pain at times radiating into her right hip and right thigh. She denies any weakness in extremities. She denies any numbness or tingling. She denies any change in bowel or bladder function. Patient states she is never had pain this severe. Patient does state that she had back pain and was seen in the ER 2 months ago and was prescribed Flexeril. Her pain eventually resolved until it came back 5 days ago. Patient denies any fevers. She denies urinary symptoms. No prior back surgeries. She does have a history of hypertension and diabetes as well as lupus and anxiety.] Physical Examination: [HEENT-PERRLA, EOMI. Cranial nerves II through XII grossly intact. TMs clear. Mucous membranes moist. No adenopathy. Cardiovascular-regular rate and rhythm without murmur or ectopy Lungs-clear to auscultation, chest wall stable without crepitus or subcu emphysema Abdomen-normoactive bowel sounds, soft, nontender, no rebound or rigidity, no peritoneal signs. Back exam-she has no tenderness over the thoracic or lumbar spine. She has no real tenderness over the paraspinal musculature on exam. I cannot reproduce her pain with palpation. She has negative straight leg raises. Deep tendon reflexes are plus 2 out of 4 bilaterally. She has normal sensation. Normal L5 extension bilaterally. Extremities-intact ?4, normal range of motion, normal pulses, atraumatic] Test Results: [None indicated] Emergency Department Course and Treatment: [] Treatment Plan: [We will be given a prescription for a Medrol Dosepak as well as [place] and Flexeril. She is to continue with the naproxen as needed. Patient referred to primary care physician for follow-up in 5 to 7 days. She understands that if her symptoms worsen she is to return to the emergency department. Patient also understands that if her symptoms do not improve may need further imaging such as possibly MRI to evaluate further. I do not feel plain x-rays at this time are indicated as there is been no injury or trauma.] Disposition: [Discharged home in stable condition] Impression: [Back pain/sciatica] This note was generated with [employer] dictation software. It may contain incorrect words, spelling, and punctuation that were not noted in review of the chart prior to signing ED Disposition - Plan for ED Patient: Referrals: Eldon Hernandez MD [Primary Care Provider] -
--- NOTE | 2019-12-05 07:45 | DCINST.ED_ITS ---
ED Disposition - Plan for ED Patient: Instructions: ED Spasm Back No Trauma, ED LUMBAR RADICULOPATHY Prescriptions: cycloBENZAPRine HCl [Flexeril] 10 mg PO TID PRN #20 tab PRN Reason: Muscle Spasm Prescription Printed MethylPREDNISolone DosePak [Medrol DosePak] 4 mg PO UD #1 box Prescription Printed Hydrocodone Bitart/Apap 5-325 [[place] 5MG-325MG] 1 tab PO Q4H PRN PRN 2 Days #20 tab PRN Reason: Pain Prescription Printed Referrals: Eldon Hernandez MD [Primary Care Provider] - 5-7 Days
== END 2019-12-05 07:53 | disposition home or self-care (01) ==
LOC: ED 07:46
PROVIDERS: Emergency Provider Emergency Medicine; PCP Family Medicine
DX: M54.9 Dorsalgia, unspecified (principal); M79.651 Pain in right thigh; M25.551 Pain in right hip; M54.30 Sciatica, unspecified side; I10 Essential (primary) hypertension; E11.9 Type 2 diabetes mellitus without complications; F41.9 Anxiety disorder, unspecified; M32.9 Systemic lupus erythematosus, unspecified
CPT/HCPCS: 99282

== ENCOUNTER 2020-01-14 19:51 | Emergency (ER) | payer MEDICAID, SELFPAY ==
[2020-01-08 17:06] VITALS: BMI 34.4
[2020-01-14 19:52] VITALS: BP 155/104; PULSE 90; RESP 18; TEMP 36.4; O2SAT 100; BMI 38.9
--- NOTE | 2020-01-14 20:09 | ED.DCSUM_ITS ---
History of Present Illness Chief Complaint: Abscess Informant: Patient Onset: Days Context: Gradual Onset Timing: Continuous Current Severity: Moderate Maximum Severity: Moderate Narrative: The patient is a 39-year-old female with history of diabetes and multiple skin infections and presents to the emergency department with abscess under her right breast. Patient states she is had a hard red area with some scant drainage for the past 48 hours. She states that she went to urgent care today. They attempted incision and drainage, but nothing came out. She states because of it, she has been having a lot of pain. She denies fevers or chills. She states it is not been spreading. She was started on Keflex, but states every time she moves or twist she does have pain. Prior similar symptoms: Yes Recent Illness/Hospitalization: No Past Medical History - Allergies and Home Meds Allergies/Adverse Reactions: Allergies cetirizine HCl [From Zyrtec] Allergy (Verified 01/14/20 19:54) Hives prochlorperazine edisylate [From Compazine] Allergy (Verified 01/14/20 19:54) Hives prochlorperazine maleate [From Compazine] Allergy (Verified 01/14/20 19:54) Hives acetaminophen [From Percocet] Adverse Reaction (Verified 01/14/20 19:54) Nausea/Vom/Diarrhea oxycodone [From Percocet] Adverse Reaction (Verified 01/14/20 19:54) Nausea/Vom/Diarrhea Primary Care Physician: Eldon Hernandez MD [Primary Care Provider] - Prior records reviewed: Yes Past Medical History: - - Diabetes, abscess Surgical History: noncontributory, - - Cholecystectomy, IUD Smoking Status: Current every day smoker - Family History Maternal Family History: Family History (Last Reviewed 07/04/18 @ 14:46 by Jeanine Méndez) Mother Diabetes Hypertension Father Diabetes Family History: Reports: Diabetes, Heart Disease, - - early age Paternal Family History: Family History (Last Reviewed 07/04/18 @ 14:46 by Jeanine Méndez) Mother Diabetes Hypertension Father Diabetes Family History: Reports: Heart Disease, - - early age Review of Systems General: Denies: Chills, Fever, Sweats Eyes: Denies: Visual changes - bilaterally, Diplopia ENT: Denies: Rhinorrhea, Sore throat Cardiovascular: Denies: Chest pain, Palpitations Respiratory: Denies: Dyspnea, Cough, Dyspnea on exertion Gastrointestinal: Denies: Abdominal pain, Nausea, Vomiting, Diarrhea, Melena, Hematochezia Genitourinary: Denies: Dysuria, Hematuria, Frequency Musculoskeletal: Denies: Back pain, Extremity Pain Skin: Reports: Abscess. Denies: Rash, Wounds Neurological: Denies: Headache, Weakness, Numbness Physical Exam Vital Signs/Narrative: Vital Signs Temp Pulse Resp BP Pulse Ox 01/14/20 19:52 97.5 F L 90 18 155/104 H 100 Inital Vital Signs reviewed: Yes General: Well nourished, Well developed, No Acute Distress Head: Normocephalic, Atraumatic Eyes: Perrl, EOMI ENT: Moist mucous membranes, No rhinorrhea Neck: Supple, Nontender Cardiovascular: Regular rate, Regular rhythm, No murmurs Respiratory: No distress, CTA bilaterally, Chest nontender Abdomen: Soft, Nontender, Nondistended, Normal bowel sounds Back: Nontender, Normal Inspection Extremities: Nontender, No edema Skin: Normal color, - - Patient has a 2 cm ovoid area of induration with central clearing and opening. There is no purulence can be expressed. There is no central fluctuance. Neurological: Alert, Oriented x3, Cranial nerves II-XII grossly intact, Normal Strength, Normal Sensation Psychological: Normal affect, Normal Mood Diagnostic/Tx/Re-eval - Medical Decision Making Breast exam was done with female nurse truck crane operator. The patient has a small area of induration that had central incision. There is no purulence can be expressed. There is no fluctuance. There is no streaking. I do not feel that this would benefit from secondary incision and drainage. I am going to broaden the patient's antibiotics and add Bactrim. She will be given a short course of analgesics for pain control. She will be discharged home. Impression 1. Chest wall abscess ED Disposition - Plan for ED Patient: Instructions: ED Abscess Antibiotic Treatment Only Prescriptions: Smz/Tmp Ds [Bactrim Ds] 1 tab PO BID #14 tab Smz/Tmp Ds [Bactrim Ds] 1 tab PO BID #14 tab Prescription Printed Hydrocodone Bitart/Apap 5-325 [[place] 5MG-325MG] 1 tab PO Q6H PRN PRN 3 Days #10 tab PRN Reason: Pain Prescription Printed Referrals: Eldon Hernandez MD [Primary Care Provider] -
[2020-01-14] MEDS: Smz/Tmp Ds Tablet 1 TABLET PO (21:22)
[2020-01-14] MEDS: HYDROcodone Bitartrate/Apap 5/325 Tablet PO (21:22)
== END 2020-01-14 21:28 | disposition home or self-care (01) ==
LOC: ED 20:09
PROVIDERS: Emergency Provider Emergency Medicine; PCP Family Medicine
DX: L02.213 Cutaneous abscess of chest wall (principal); E11.9 Type 2 diabetes mellitus without complications; Z82.49 Family history of ischemic heart disease and other diseases of the circulatory system; Z88.5 Allergy status to narcotic agent; Z88.8 Allergy status to other drugs, medicaments and biological substances; F17.200 Nicotine dependence, unspecified, uncomplicated
CPT/HCPCS: 99283

== ENCOUNTER 2020-02-25 23:42 | Emergency (ER) | payer MEDICAID, SELFPAY ==
[2020-02-25 23:42] VITALS: BP 157/104; PULSE 102; RESP 18; TEMP 36.7; O2SAT 100; BMI 36.8
--- NOTE | 2020-02-25 23:48 | ED.VIS.GEN ---
History of Present Illness Chief Complaint: Abscess Informant: Patient Onset: Days Context: Gradual Onset Timing: Continuous Current Severity: Moderate Maximum Severity: Moderate Narrative: The patient is a 39-year-old female with medical history significant for diabetes, hypertension, hyperlipidemia the presents to the emergency department with abdominal wall abscess. She initially states she thought was a spider bite. It happened on Tuesday is when she first noticed it. Over the weekend, got more tender and the redness increased. She tried to squeeze it, but nothing came out. She denies any fevers or chills. She does get frequent folliculitis and abscess. She was on antibiotics about 45 days ago. She states she is otherwise been in her normal state of health. Prior similar symptoms: Yes Recent Illness/Hospitalization: No Past Medical History - Allergies and Home Meds Allergies/Adverse Reactions: Allergies cetirizine HCl [From Zyrtec] Allergy (Verified 01/14/20 19:54) Hives prochlorperazine edisylate [From Compazine] Allergy (Verified 01/14/20 19:54) Hives prochlorperazine maleate [From Compazine] Allergy (Verified 01/14/20 19:54) Hives acetaminophen [From Percocet] Adverse Reaction (Verified 01/14/20 19:54) Nausea/Vom/Diarrhea oxycodone [From Percocet] Adverse Reaction (Verified 01/14/20 19:54) Nausea/Vom/Diarrhea Primary Care Physician: Eldon Hernandez MD [Primary Care Provider] - Prior records reviewed: Yes Past Medical History: - - Diabetes, hypertension, hyperlipidemia Surgical History: noncontributory, - - Cholecystectomy, IUD Smoking Status: Former smoker - Family History Maternal Family History: Family History (Last Reviewed 07/04/18 @ 14:46 by Jeanine Méndez) Mother Diabetes Hypertension Father Diabetes Family History: Reports: Diabetes, Heart Disease, - - early age Paternal Family History: Family History (Last Reviewed 07/04/18 @ 14:46 by Jeanine Méndez) Mother Diabetes Hypertension Father Diabetes Family History: Reports: Heart Disease, - - early age Review of Systems General: Denies: Chills, Fever, Sweats Eyes: Denies: Visual changes - bilaterally, Diplopia ENT: Denies: Rhinorrhea, Sore throat Cardiovascular: Denies: Chest pain, Palpitations Respiratory: Denies: Dyspnea, Cough, Dyspnea on exertion Gastrointestinal: Denies: Abdominal pain, Nausea, Vomiting, Diarrhea, Melena, Hematochezia Genitourinary: Denies: Dysuria, Hematuria, Frequency Musculoskeletal: Denies: Back pain, Extremity Pain Skin: Reports: Abscess. Denies: Rash, Wounds Neurological: Denies: Headache, Weakness, Numbness Physical Exam Vital Signs/Narrative: Vital Signs Temp Pulse Resp BP Pulse Ox 02/25/20 23:42 98.1 F 102 H 18 157/104 H 100 Inital Vital Signs reviewed: Yes General: Well nourished, Well developed, No Acute Distress Head: Normocephalic, Atraumatic Eyes: Perrl, EOMI ENT: Moist mucous membranes, No rhinorrhea Neck: Supple, Nontender Cardiovascular: Regular rate, Regular rhythm, No murmurs Respiratory: No distress, CTA bilaterally, Chest nontender Abdomen: Soft, Nontender, Nondistended, Normal bowel sounds, - - Patient has a 2 cm ovoid abscess on the left lower abdominal wall. There is 8 cm of surrounding cellulitis. There is some central fluctuance. Back: Nontender, Normal Inspection Extremities: Nontender, No edema Skin: Normal color, No rash Neurological: Alert, Oriented x3, Cranial nerves II-XII grossly intact, Normal Strength, Normal Sensation Psychological: Normal affect, Normal Mood Diagnostic/Tx/Re-eval - Medical Decision Making The patient presents with an abdominal wall abscess. There was some central fluctuance. Under sterile technique, the area was anesthetized with 3 cc of 1% lidocaine with epinephrine. Small incision was made. There was no significant purulence. This did appear to be an infected sebaceous cyst. I did attempt to remove the cyst in 1 piece, but was unable to remove the entire structure. I did remove most of it piecemeal. With the surrounding cellulitis, the patient will be placed on oral antibiotics. She is comfortable with this plan of care and will be discharged home. Impression 1. Abdominal wall abscess with incision and drainage ED Disposition - Plan for ED Patient: Instructions: ED Abscess Incision And Drainage Prescriptions: Doxycycline 100 mg PO BID #20 cap Prescription Printed Referrals: Eldon Hernandez MD [Primary Care Provider] -
[2020-02-25] MEDS: HYDROcodone Bitartrate/Apap 5/325 Tablet PO (23:53)
[2020-02-26] MEDS: Doxycycline 100 MG CAPSULE PO (00:28)
[2020-02-26 00:31] VITALS: PULSE 86; RESP 16; O2SAT 98
== END 2020-02-26 00:33 | disposition home or self-care (01) ==
LOC: ED 02-26 00:16
PROVIDERS: Emergency Provider Emergency Medicine; PCP Family Medicine
DX: L02.211 Cutaneous abscess of abdominal wall (principal); E11.9 Type 2 diabetes mellitus without complications; E78.5 Hyperlipidemia, unspecified; I10 Essential (primary) hypertension; Z82.49 Family history of ischemic heart disease and other diseases of the circulatory system; Z88.5 Allergy status to narcotic agent; Z88.8 Allergy status to other drugs, medicaments and biological substances; Z90.49 Acquired absence of other specified parts of digestive tract; Z97.5 Presence of (intrauterine) contraceptive device
CPT/HCPCS: 10060; 99284

== ENCOUNTER 2020-02-28 15:03 | Emergency (ER) | payer MEDICAID, SELFPAY ==
[2020-02-28 15:05] VITALS: BP 157/97; PULSE 99; RESP 16; TEMP 36.3; O2SAT 98; BMI 35.0
--- NOTE | 2020-02-28 16:25 | ED.RN ---
Went in to Pt's room to start IV and adminsiter ATB. Pt was not in room, bathrooms, or able to be found in the dept. MD and registration notified.
--- NOTE | 2020-02-28 16:46 | ED.DCSUM_ITS ---
- ER Visit Summary Date of Service: 02/28/20 Chief Complaint: Abscess History of Present Illness: The patient is a 39 F who presents with an abscess to her abdominal wall that began 1 week ago. Patient states she had it drained here 3 days ago. Patient states she has been on doxycycline. Patient states it feels like it is getting worse. Patient states it is over the left lower abdomen. Patient describes her pain is dull. Patient states the pain is worse with bending and with sitting. Patient states nothing seems to help with the pain. Patient admits to nausea but denies any vomiting. Patient denies any fevers or chills. Physical Examination: Vital signs are stable. Patient is afebrile. Patient is in no acute distress. Heart was regular rate and rhythm. Lungs are clear and equal bilaterally. Abdomen is soft. Bowel sounds are normal. There is erythema and mild tenderness over the left mid abdomen. There is no purulent drainage. There is no fluctuance. The abscess is still open. There is some mild induration. Cranial nerves II through XII are intact. There are no focal motor or sensory deficits noted. Test Results: CBC and basic metabolic profile were ordered. Emergency Department Course and Treatment: IV Unasyn was ordered. Patient did not wait for labs to be drawn or the IV Unasyn to be started. Patient left without telling anyone. Disposition: Elopement Impression: Abdominal abscess This note was generated with [employer] dictation software. It may contain incorrect words, spelling, and punctuation that were not noted in review of the chart prior to signing ED Disposition - Plan for ED Patient: Disposition: Against Medical Advice Diagnosis: Abdominal abscess Referrals: Eldon Hernandez MD [Primary Care Provider] -
== END 2020-02-28 16:25 | disposition left against medical advice (07) ==
LOC: ED 16:38
PROVIDERS: Emergency Provider Emergency Medicine; PCP Family Medicine
DX: L02.211 Cutaneous abscess of abdominal wall (principal)
CPT/HCPCS: 96365; 99281; 99282; J0295

== ENCOUNTER 2020-08-09 04:44 | Emergency (ER) | payer MEDICAID, SELFPAY ==
[2020-08-09 04:45] VITALS: BP 142/90; PULSE 87; RESP 17; TEMP 35.7; O2SAT 98; BMI 34.6
--- NOTE | 2020-08-09 05:00 | CT_ITS ---
STUDY: CT FACIAL BONES WITH CONTRAST REASON FOR EXAM: Female, 40 years old. infection RADIATION DOSAGE (If Supplied By Facility): CTDIvol = ( 29.38 ) mGy, DLP = ( 620.92 ) mGycm TECHNIQUE: The patient was scanned in a multi detector CT scanner. Transaxial imaging was performed following the intravenous administration of IV 100mL Isovue-370. Sagittal and coronal images were reconstructed. Individualized dose optimization techniques were used for this CT. COMPARISON: None. FINDINGS: Subcutaneous fat infiltration along the right mandible, right maxilla and right greater than left upper lip. There is incomplete dentition and mild carious disease. There is no focal abscess or collection. The maxillary teeth are absent with the exception of a remnant of a right maxillary molar. Normal orbital monzon and orbital contents. Normal nasal bones and anterior nasal spine. Normal facial bones. There is no demonstrated fracture. Mucosal thickening of the bilateral ethmoid sinuses. The bilateral mastoid air cells and ossicles are unopacified. Bilateral enlarged cervical lymph nodes level II. CT/Sinus/Facial Bone WITH Contras IMPRESSION: Facial cellulitis involving the right mandible, right maxilla and upper lip. There is incomplete dentition and carious disease. A dental abscess is not visualized, the center of the inflammation however is adjacent to the right mandibular bicuspid tooth #28. Mild chronic sinus disease. Electronically Signed: Caro Méndez MD at 7:12 EDT , Service support ,
[2020-08-09] MEDS: Ondansetron 4 MG/2 ML Vial IV (05:17)
--- NOTE | 2020-08-09 05:17 | ED.VIS.GEN ---
History of Present Illness Chief Complaint: Other, Pain/Inj Detail of Chief Complaint: Facial swelling Informant: Patient Onset: Days Context: Gradual Onset Current Severity: Moderate Maximum Severity: Moderate Narrative: Patient presents with right-sided facial swelling. Patient states she noted what she thought was a small pimple just inside her right nare approximately 4 days ago. She popped it but the following day noted it turning green in color. She was concerned it was infected and went to urgent care. She was started on Bactrim and given a cream to place on the lesion 3 times a day. Patient states in spite of this she has had increased pain and swelling. She woke yesterday morning with right-sided facial swelling. She denies fever or chills. - Past Medical History (1) Anxiety Status: Chronic (2) Diabetes Status: Chronic (3) HTN (hypertension) Status: Chronic (4) Lupus Status: Chronic Past Medical History - Allergies and Home Meds Allergies/Adverse Reactions: Allergies cetirizine HCl [From Zyrtec] Allergy (Verified 08/09/20 04:49) Hives prochlorperazine edisylate [From Compazine] Allergy (Verified 08/09/20 04:49) Hives prochlorperazine maleate [From Compazine] Allergy (Verified 08/09/20 04:49) Hives acetaminophen [From Percocet] Adverse Reaction (Verified 08/09/20 04:49) Nausea/Vom/Diarrhea oxycodone [From Percocet] Adverse Reaction (Verified 08/09/20 04:49) Nausea/Vom/Diarrhea Primary Care Physician: Edlon Hernandez MD [Primary Care Provider] - Prior records reviewed: Yes Surgical History: noncontributory, - - Cholecystectomy, IUD Smoking Status: Current every day smoker - Family History Maternal Family History: Family History (Last Reviewed 07/04/18 @ 14:46 by Jeanine Méndez) Mother Diabetes Hypertension Father Diabetes Family History: Reports: Diabetes, Heart Disease, - - early age Paternal Family History: Family History (Last Reviewed 07/04/18 @ 14:46 by Jeanine Méndez) Mother Diabetes Hypertension Father Diabetes Family History: Reports: Heart Disease, - - early age Review of Systems General: Denies: Chills, Fever Eyes: Denies: Visual changes - bilaterally ENT: Reports: - - Nasal pain, right facial pain. Cardiovascular: Denies: Chest pain Respiratory: Denies: Dyspnea, Cough Gastrointestinal: Denies: Abdominal pain, Vomiting, Diarrhea Genitourinary: Denies: Dysuria Musculoskeletal: Denies: Neck pain, Back pain, Extremity Pain Skin: Reports: Wounds Neurological: Denies: Headache Hematologic: Denies: Easy bruising, Easy bleeding Allergy: Denies: Uticaria Physical Exam Vital Signs/Narrative: Vital Signs Temp Pulse Resp BP Pulse Ox 08/09/20 04:45 96.2 F L 87 17 142/90 H 98 Inital Vital Signs reviewed: Yes General: Well nourished, Well developed ENT: Moist mucous membranes, - - Small pustule just inside the right nare. Mild surrounding edema. No drainage. No facial cellulitis but mild right facial swelling is noted. Neck: Supple Cardiovascular: Regular rate, Regular rhythm Respiratory: No distress, CTA bilaterally Abdomen: Soft, Nontender Back: Nontender Extremities: Nontender Neurological: Alert, Oriented x3 Psychological: Normal affect Diagnostic/Tx/Re-eval Impressions Facial/Sinus 08/09/20 05:00 IMPRESSION: Facial cellulitis involving the right mandible, right maxilla and upper lip. There is incomplete dentition and carious disease. A dental abscess is not visualized, the center of the inflammation however is adjacent to the right mandibular bicuspid tooth #28. Mild chronic sinus disease. Electronically Signed: Caro Méndez MD at 7:12 EDT , Service support , 08/09/20 05:00 CT Facial [Sinus/Facial Bone WITH Contras] [CT] Stat Laboratory Results 08/09/20 08/09/20 05:19 05:19 WBC 7.5 RBC 4.73 Hgb 14.2 Hct 42.1 MCV 89.0 MCH 30.0 MCHC 33.7 RDW Std Deviation 40.1 RDW Coeff of Sriram 12.1 Plt Count 222 MPV 9.7 Immature Gran % (Auto) 0.400 Neut % (Auto) 59.5 Lymph % (Auto) 31.8 [place] % (Auto) 5.6 Eos % (Auto) 2.3 Baso % (Auto) 0.4 Absolute Neuts (auto) 4.5 Absolute Lymphs (auto) 2.38 Nucleated RBC % 0 Sodium 137 Potassium 3.9 Chloride 106 Carbon Dioxide 27.0 Anion Gap 4 L BUN 13 Creatinine 0.66 Estim Creat Clear Calc 106.07 Est GFR (MDRD) Af Amer 128 Est GFR (MDRD) Non-Af 106 BUN/Creatinine Ratio 19.8 Glucose 193 H Calcium 8.5 - Medical Decision Making Patient was given morphine and Zofran for pain control here. Lab work is unremarkable. CT scan is consistent with cellulitis but no abscess formation. Patient is already on Bactrim. Will add Keflex for double coverage of skin bacteria. I will also write her for [place] for pain control. She is given return instructions. ED Disposition - Plan for ED Patient: Disposition: Home or Assisted Living Diagnosis: Cellulitis Instructions: ED Cellulitis Prescriptions: Cephalexin [Keflex] 500 mg PO Q6 #40 capsule Transmission Status: Pending to [facility] #30 Hydrocodone Bitart/Apap 5-325 [[place] 5MG-325MG] 1 tablet PO Q6H PRN PRN 3 Days #10 tablet PRN Reason: Pain Transmission Status: Sent to [facility]30 Referrals: Eldon Hernandez MD [Primary Care Provider] - 3-5 Days if not improving
[2020-08-09] MEDS: Morphine 4 MG/ML Syringe IV (05:19)
[2020-08-09 05:29] LABS: Absolute Lymphocyte Count 2.38 X10^3/uL (0.83-4.51); Absolute Neutrophil Count 4.5 X10^3/uL (2.0-7.7); Basophil# 0.03 X10^3/uL; Basophil% 0.4 % (0-1); Eosinophil# 0.17 X10^3/uL; Eosinophils% 2.3 % (0-5); Hematocrit 42.1 % (37-47); Hemoglobin 14.2 g/dL (12.0-15.0); Lymphocyte # 2.38 X10^3/ul (0.83-4.51); Lymphocyte % 31.8 % (19-41); Mean Corp Hgb Conc 33.7 g/dL (32-36); Mean Platelet Vol. 9.7 fl (6.2-12.0); Monocyte# 0.42 X10^3/uL; Monocyte% 5.6 % (0-10); NRBC Flagged by Analyzer 0 % (0-5); Neutrophil # 4.46 X10^3/uL (2.7-7.7); Neutrophil % 59.5 % (47-70); Platelet Count 222 K/mm3 (150-450); RBC Distribution Width CV 12.1 % (11.6-14.6); RBC Distribution Width SD 40.1 fl (35.1-43.9); Red Blood Count 4.73 M/mm3 (4.2-5.4); White Blood Count 7.5 K/mm3 (4.4-11.0)
[2020-08-09 05:41] LABS: Anion Gap 4 (5-15); BUN 13 mg/dL (7-18); BUN/Creat Ratio 19.8 RATIO (10-20); Calcium,Total 8.5 mg/dL (8.5-10.1); Chloride 106 mmol/L (98-107); Creatinine, Serum 0.66 mg/dL (0.55-1.02); EST Glomerular Filtration Rate 106 mL/min (>60); Est Glom Filt Rate - Afr Amer 128 mL/min (>60); Estimated Creatinine Clearance 106.07 ml/min; Glucose 193 mg/dL (74-106); Potassium 3.9 mmol/L (3.5-5.1); Sodium Level 137 mmol/L (136-145)
[2020-08-09 07:45] VITALS: BP 152/92; PULSE 76; RESP 18; O2SAT 94
== END 2020-08-09 07:46 | disposition home or self-care (01) ==
PROVIDERS: Emergency Provider Emergency Medicine; PCP Family Medicine
DX: L03.211 Cellulitis of face (principal); F17.200 Nicotine dependence, unspecified, uncomplicated; F41.9 Anxiety disorder, unspecified; E11.9 Type 2 diabetes mellitus without complications; I10 Essential (primary) hypertension; M32.9 Systemic lupus erythematosus, unspecified; Z82.49 Family history of ischemic heart disease and other diseases of the circulatory system; Z83.3 Family history of diabetes mellitus; Z88.5 Allergy status to narcotic agent; Z88.8 Allergy status to other drugs, medicaments and biological substances
CPT/HCPCS: 70487; 80048; 85025; 96374; 96375; 99283; Q9967; A4216; J2405

== ENCOUNTER 2020-10-17 23:14 | Emergency (ER) | payer MEDICAID, SELFPAY ==
[2020-10-17 23:14] VITALS: RESP 16
[2020-10-17 23:15] VITALS: BP 162/91; PULSE 104; RESP 16; TEMP 35.9; O2SAT 94; BMI 35.4
--- NOTE | 2020-10-18 00:15 | EX.ED.DYSGE1 ---
HPI History of Present Illness Chief Complaint: Abscess Informant: patient Onset/Context/Timing Onset: Days Context: Gradual Onset Current Severity: Severe Maximum Severity: Severe Narrative Narrative: Patient presents secondary to pain caused by a abscess on her right upper forehead. Patient states the abscess only came out of the last 6 days. She was at urgent care and was placed on Bactrim. She is only had this medication today. Patient states that she has been taking Tylenol and ibuprofen without improvement and she is having difficulty sleeping secondary to pain. PFSH PFS Medical History Anxiety Cellulitis of foot, right Chest pain Diabetes HTN (hypertension) Leaky heart valve Lupus Home Medications insulin glargine 30 unit SQ QHS 04/29/17 [History Last Taken Unknown] metformin 1,000 mg PO BID 12/06/17 [History Last Taken Unknown] carvedilol 6.25 mg PO DAILY 10/15/19 [History Last Taken Unknown] sulfamethoxazole-trimethoprim 1 tablet PO BID 08/09/20 [History Last Taken Unknown] hydrocodone-acetaminophen 1 tab PO Q6H PRN 3 Days #10 tab 10/18/20 [Rx Last Taken Unknown] Allergy/AdvReac Type Severity Reaction Status Date / Time cetirizine HCl [From Zyrtec] Allergy Hives Verified 10/17/20 23:15 prochlorperazine edisylate Allergy Hives Verified 10/17/20 23:15 [From Compazine] prochlorperazine maleate Allergy Hives Verified 10/17/20 23:15 [From Compazine] acetaminophen [From Percocet] AdvReac Nausea/Vom/ Verified 10/17/20 23:15 Diarrhea oxycodone [From Percocet] AdvReac Nausea/Vom/ Verified 10/17/20 23:15 Diarrhea Family History Mother Diabetes Hypertension Father Diabetes Surgical History S/P laparoscopic cholecystectomy Social History Smoking Status: Current every day smoker tobacco type: cigarettes alcohol intake: never ROS ROS ED Constitutional Constitutional ED: Denies chills or fever(s) Eyes Eyes: Denies change in vision ENT ENT ED: Denies sore throat Cardiovascular Cardiovascular: Denies chest pain Respiratory/Chest Respiratory/Chest: Denies cough or dyspnea Gastrointestinal Gastrointestinal: Denies abdominal pain, diarrhea, nausea or vomiting Genitourinary Genitourinary ED: Denies dysuria Musculoskeletal Musculoskeletal: Denies back pain Integumentary Reports abscess; Denies rash Neurologic Neurologic: Denies headache(s) or weakness EXAM Physical Exam Const Vital Signs: 10/17/20 23:14 10/17/20 23:15 10/18/20 00:26 Temperature 96.6 F L Temperature Source Temporal Pulse Rate 104 H Respiratory Rate 16 16 16 Blood Pressure 162/91 H Blood Pressure Mean 114 Pulse Ox 94 Oxygen Delivery Method Room Air Positive well nourished and well developed General Appearance ED: well developed HEENT Reports normocephalic and head/scalp atraumatic HEENT Narrative: 1/2 x 1 cm cutaneous abscess to the right upper forehead at the hairline. No fluctuance noted. Eyes PERRL and EOMs intact bilaterally Neck supple Chest Wall inspection of chest normal and palpation of chest normal Resp normal respiratory effort and clear to auscultation bilaterally Cardio regular rate and regular rhythm GI normal to inspection, nondistended, normoactive bowel sounds Palpation: soft Extremity normal to inspection Neuro oriented x3 and no sensory deficits noted Sensorium / Orientation: alert Motor Exam: strength 5/5 throughout Psych mental status grossly normal [facility] Treatment and Re-Evaluation Comments:: Patient is written a prescription for [place] to help control pain. She is advised to use warm compresses to the area to encourage drainage. She will continue her antibiotics. She was advised that she may require I&D in the future but at this time without fluctuance I do not think will be greatly beneficial. She voices understanding and agreement. Discharge Plan Triage Chief Complaint: Abscess ED Provider: Isadora Hughes Dx/Rx/DC Orders Clinical Impression: Cutaneous abscess Instructions: ED Abscess Antibiotic Treatment Only Prescriptions: New hydrocodone-acetaminophen 5-325 mg tablet 1 tab PO Q6H PRN (Reason: pain) 3 Days Qty: 10 RF: 0 No Action insulin glargine 100 UNIT/ML insulin pen 30 unit SQ QHS RF: 0 metformin 500 MG tablet 1,000 mg PO BID RF: 0 carvedilol 3.125 MG tablet 6.25 mg PO DAILY RF: 0 sulfamethoxazole-trimethoprim 1 TABLET tablet 1 tablet PO BID RF: 0 Primary Care Provider: Eldon Hernandez Referrals: Eldon Hernandez MD [Primary Care Provider] - 1 Week if not improving Disposition Disposition: Home, Self Care Discharge Date/Time: 10/18/20 00:26
[2020-10-18] MEDS: HYDROcodone Bitartrate/Apap 5/325 Tablet PO (00:21)
[2020-10-18 00:26] VITALS: RESP 16
== END 2020-10-18 00:26 | disposition home or self-care (01) ==
LOC: ED 10-18 00:22
PROVIDERS: Emergency Provider Emergency Medicine; PCP Family Medicine
DX: L02.01 Cutaneous abscess of face (principal); F17.210 Nicotine dependence, cigarettes, uncomplicated; E11.9 Type 2 diabetes mellitus without complications; F41.9 Anxiety disorder, unspecified; I10 Essential (primary) hypertension; M32.9 Systemic lupus erythematosus, unspecified; Z79.4 Long term (current) use of insulin
CPT/HCPCS: 99282

== ENCOUNTER 2020-11-10 04:18 | Emergency (ER) | payer MEDICAID, SELFPAY ==
[2020-11-10 04:19] VITALS: BP 139/69; PULSE 102; RESP 16; TEMP 36.9; O2SAT 95; BMI 37.0
--- NOTE | 2020-11-10 04:55 | CT_ITS ---
STUDY: CT BRAIN WITHOUT CONTRAST REASON FOR EXAM: Female, 40 years old. trauma RADIATION DOSAGE (If Supplied By Facility): CTDIvol = ( 44.99 ) mGy, DLP = ( 779.24 ) mGycm TECHNIQUE: Transaxial CT imaging of the brain was performed without administration of intravenous contrast material. Individualized dose optimization techniques were used for this CT. COMPARISON: No relevant priors. FINDINGS: Normal soft tissue structures. Normal calvarium. Normal size ventricles and extra-axial spaces for the patient''s age. Normal white matter tracts of the cerebral hemispheres. Normal basal ganglia and thalami. Normal brainstem. Normal cerebellum. There is no intracranial hemorrhage. There are no findings of an acute ischemic infarction. Normal visualized paranasal sinuses. CT/Brain/Head without Contrast IMPRESSION: Normal unenhanced CT scan of the brain. Electronically Signed: Kiet Jackson MD at 6:36 EDT Tel , Service support ,
--- NOTE | 2020-11-10 04:55 | CT_ITS ---
HISTORY: Filled down stairs with forehead and neck pain.. TECHNIQUE: Helically acquired images were obtained of the cervical spine. 2-D reformatted images were reviewed. A radiation dose optimization technique was used for the scan. # of images incl. paperwork: 380. IV contrast dosage and agent: None. COMPARISON: None. FINDINGS: VERTEBRAE: No fracture identified. 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 Vertebral body heights are maintained. No suspicious osseous lesion identified. ALIGNMENT: No significant anterior or posterior subluxation. Straightening of cervical lordosis likely positional and/or chronic in nature. INTERVERTEBRAL DISCS: Mild degenerative disc space narrowing and small endplate osteophytes at C5-6 and C6-7. No significant spinal canal stenosis. SOFT TISSUES: No prevertebral soft tissue thickening. LUNG APICES: Unremarkable as visualized. CT/Spine Cervical without Contras IMPRESSION: No evidence of acute cervical spinal injury. Individualized dose optimization techniques were used for this CT. at 0636 Reported and signed by: Eddie Joseph MD Electronically Signed: Eddie Joseph MD at 6:35 EDT Tel , Service support ,
--- NOTE | 2020-11-10 04:56 | EDS_ITS ---
HPI History of Present Illness Chief Complaint: Fall Informant: patient and spouse/S.O. Onset/Context/Timing Onset: Today and Hours Mechanism/Context: Fall Current Severity: Mild Maximum Severity: Mild Associated Symptoms Associated Symptoms: Negative for Parasthesias, Weakness, Loss of function, Inability to ambulate, Loss of consciousness and Amnesia Narrative Narrative: 40-year-old female history of diabetes and hypertension. Was going down the steps this morning lost her balance fell down several steps striking her face. Complaining of head pain and mild neck discomfort. She and her significant other do not think she lost consciousness. He heard the fall and ran out she was awake. She denies any other injuries no pain to her extremities. No pain to her chest back or abdomen. She is not on blood thinners. Prior similar symptoms: No Recent Illness/Hospitalization: No [facility] Medical History (Updated 11/10/20 @ 06:[address] Guerrero Damon MD) Anxiety Cellulitis of foot, right Chest pain Diabetes HTN (hypertension) Leaky heart valve Lupus Home Medications insulin glargine 30 unit SQ QHS 04/29/17 [History Last Taken Unknown] metformin 1,000 mg PO BID 12/06/17 [History Last Taken Unknown] carvedilol 6.25 mg PO DAILY 10/15/19 [History Last Taken Unknown] Allergy/AdvReac Type Severity Reaction Status Date / Time cetirizine HCl [From Zyrtec] Allergy Hives Verified 11/10/20 04:26 prochlorperazine edisylate Allergy Hives Verified 11/10/20 04:26 [From Compazine] prochlorperazine maleate Allergy Hives Verified 11/10/20 04:26 [From Compazine] acetaminophen [From Percocet] AdvReac Nausea/Vom/ Verified 11/10/20 04:26 Diarrhea oxycodone [From Percocet] AdvReac Nausea/Vom/ Verified 11/10/20 04:26 Diarrhea Family History Mother Diabetes Hypertension Father Diabetes Surgical History S/P laparoscopic cholecystectomy Social History Smoking Status: Current every day smoker tobacco type: cigarettes alcohol intake: never ROS ROS ED ROS Narrative No recent illness. States her blood sugars have been running high. Review of Systems ROS Unobtainable: Denies due to encephalopathy Constitutional Constitutional ED: Denies chills or fever(s) Eyes Eyes: Denies change in vision ENT ENT ED: Denies ear pain or sore throat Cardiovascular Cardiovascular: Denies chest pain Respiratory/Chest Respiratory/Chest: Denies dyspnea Gastrointestinal Gastrointestinal: Denies abdominal pain, diarrhea, nausea or vomiting Genitourinary Genitourinary ED: Denies dysuria Musculoskeletal Musculoskeletal: Denies myalgias Integumentary Denies rash Neurologic Neurologic: Denies headache(s) Psychiatric Psychiatric: Denies depression Endocrine Endocrinology: Denies polyuria Hematologic/Lymphatic Hematologic/Lymphatic: Denies easy bruising Allergic/Immunologic Allergic/Immunologic ED: Denies urticaria EXAM Physical Exam Narrative Exam Narrative: Middle-aged female no acute distress vital signs stable afebr ile. HEENT exam mild contusion right forehead tenderness. Pupils round reactive light motions are intact no blood from her nose. Dentition intact. Posterior scalp nontender. C-spine nontender. Trachea midline. Lungs clear to auscultation. Chest were nontender. Heart regular rhythm rate about 95 no murmur. Abdomen soft nontender normal bowel sounds no peritoneal signs. No bruising to her chest or abdomen. Pelvic girdle intact. Moving all 4 extremities. No deformity. Nontender. Normal experimental mechanic strength bilaterally. Normal dorsi plantar flexion. Normal range of motion of both upper and lower extremities. Back nontender. No signs of trauma. No thoracic or lumbar tenderness. Neurologic exam normal. GCS of 15. Awake alert talking acting appropriately. Moving all 4 extremities. Const Vital Signs: 11/10/20 04:19 11/10/20 04:26 Temperature 98.4 F Temperature Source Oral Pulse Rate 102 H Respiratory Rate 16 Respiratory Pattern Normal Blood Pressure 139/69 H Blood Pressure Mean 92 Pulse Ox 95 Oxygen Delivery Method Room Air HEENT trauma and tenderness Eyes PERRL and EOMs intact bilaterally Neck full ROM General: Negative for tenderness Chest Wall inspection of chest normal and palpation of chest normal Resp normal respiratory effort and clear to auscultation bilaterally Auscultation: Negative for rales, rhonchi or wheezes Cardio regular rhythm, S1 normal heart sound, S2 normal heart sound and no murmurs Rate: regular rate GI normal to inspection, nondistended, normoactive bowel sounds, non-tender, non- distended and no masses Inspection: Negative for abdominal distention Auscultation: normoactive bowel sounds Palpation: soft; Negative for tender, guarding or rebound tenderness present Back/Spine normal to inspection and no thoracic nor lumbar tenderness General Back: Negative for CVA tenderness Thoracic Spine / Upper Back: Negative for thoracic spinal tenderness Extremity normal to inspection and full ROM General Extremety ED: Negative for deformity, edema or tenderness General Extremity: Negative for deformity or edema Neuro oriented x3, CN's II-XII intact bilaterally and moves all extremities Celoron Coma Scale: document GCS findings Spontaneous Obeys Commands Oriented 15 Sensorium / Orientation: alert, oriented to person, oriented to place and oriented to time; Negative for orientation impaired, lethargic or stuporous Motor Exam: strength 5/5 throughout Psych mental status grossly normal and thought process normal Skin no rashes or lesions noted and no wounds MDM MDM MDM Narrative Medical decision making narrative: Patient fell down the steps as a head injury. Will obtain a CT C-spine and head. She said her sugars are running high so obtain BGT. Repeat exam patient is doing well at 6:17 AM. Awaiting CAT scan results. She will be discharged with head injury instructions. Went back to reevaluate the patient after the CAT scan results returned and they had left. Lab Data Attestation: I reviewed the patient's lab results. Lab results narrative: Blood glucose was 311. Labs: Laboratory Results - last 24 hr 11/10/20 05:04 POC Glucose 311 H Radiography Diagnostic Testing: Radiology Impression Brain CT 11/10/20 04:55 IMPRESSION: Normal unenhanced CT scan of the brain. Electronically Signed: Kiet Jackson MD at 6:36 EDT Tel , Service support , Cervical Spine CT 11/10/20 04:55 IMPRESSION: No evidence of acute cervical spinal injury. Individualized dose optimization techniques were used for this CT. at 0636 Reported and signed by: Eddie Joseph MD Electronically Signed: Eddie Joseph MD at 6:35 EDT Tel , Service support , I reviewed the patient's CT of her brain and C-spine I do not see any acute abnormalities. Awaiting formal radiology interpretation. Radiologist read CAT scans as no acute abnormality. Patient left prior to radiology interpretation. Discharge Plan Triage Chief Complaint: Fall ED Provider: Guerrero Damon Dx/Rx/DC Orders Clinical Impression: Head injury Instructions: ED Head Injury (Adult) Prescriptions: No Action insulin glargine 100 UNIT/ML insulin pen 30 unit SQ QHS RF: 0 metformin 500 MG tablet 1,000 mg PO BID RF: 0 carvedilol 3.125 MG tablet 6.25 mg PO DAILY RF: 0 Primary Care Provider: Eldon Hernandez Referrals: Eldon Hernandez MD [Primary Care Provider] - As Needed Activity Restrictions/Additional Instructions: Tylenol and/or Motrin for pain. Follow-up with your doctor if not improving. Disposition Disposition: Home, Self Care
[2020-11-10 05:11] LABS: Bedside Glucose 311 mg/dL (70-110)
== END 2020-11-10 07:02 | disposition home or self-care (01) ==
PROVIDERS: Emergency Provider Emergency Medicine; PCP Family Medicine
DX: S09.90XA Unspecified injury of head, initial encounter (principal); W10.9XXA Fall (on) (from) unspecified stairs and steps, initial encounter; E11.9 Type 2 diabetes mellitus without complications; F41.9 Anxiety disorder, unspecified; I10 Essential (primary) hypertension; M32.9 Systemic lupus erythematosus, unspecified; F17.210 Nicotine dependence, cigarettes, uncomplicated; Z79.4 Long term (current) use of insulin
CPT/HCPCS: 70450; 72125; 82962; 99282

== ENCOUNTER 2021-01-12 19:07 | Emergency (ER) | payer MEDICAID, SELFPAY ==
[2021-01-12 19:35] VITALS: BP 145/92; PULSE 94; RESP 18; TEMP 35.9; O2SAT 94; BMI 35.9
== END 2021-01-12 20:48 ==
LOC: ED 21:33
PROVIDERS: PCP Family Medicine
DX: M25.551 Pain in right hip (principal)

== ENCOUNTER 2021-06-10 09:56 | Emergency (ER) | payer MEDICAID, SELFPAY ==
[2021-06-10 09:57] VITALS: BP 133/97; PULSE 103; RESP 17; TEMP 36.1; O2SAT 98; BMI 34.7
--- NOTE | 2021-06-10 10:08 | EDS_ITS ---
HPI History of Present Illness Chief Complaint: Abscess Informant: patient Narrative Narrative: Presents concerning abscess scalp behind the right ear. Noticed symptoms 4 days ago progressing. There was drainage. No fevers. History of psoriasis initially thought it was itching from this. She is not on any immunosuppressant. She is a diabetic. Has had abscesses in other areas that required drainage in the past. Reports there was a bump there previously, drainage reported was cheesy. Prior similar symptoms: Yes PFSH PFSH Medical History Anxiety Cellulitis of foot, right Chest pain Diabetes HTN (hypertension) Leaky heart valve Lupus Home Medications insulin glargine 30 unit SQ QHS 04/29/17 [History Last Taken Unknown] metformin 1,000 mg PO BID 12/06/17 [History Last Taken Unknown] carvedilol 6.25 mg PO DAILY 10/15/19 [History Last Taken Unknown] cephalexin 500 mg PO Q6 #28 cap 06/10/21 [Rx Last Taken Unknown] ibuprofen 600 mg PO 4X/DAY PRN #20 tab 06/10/21 [Rx Last Taken Unknown] sulfamethoxazole-trimethoprim [Bactrim DS] 1 tab PO Q12H #14 tab 06/10/21 [Rx Last Taken Unknown] Allergy/AdvReac Type Severity Reaction Status Date / Time cetirizine HCl [From Zyrtec] Allergy Hives Verified 06/10/21 09:56 prochlorperazine edisylate Allergy Hives Verified 06/10/21 09:56 [From Compazine] prochlorperazine maleate Allergy Hives Verified 06/10/21 09:56 [From Compazine] acetaminophen [From Percocet] AdvReac Nausea/Vom/ Verified 06/10/21 09:56 Diarrhea oxycodone [From Percocet] AdvReac Nausea/Vom/ Verified 06/10/21 09:56 Diarrhea Family History Mother Diabetes Hypertension Father Diabetes Surgical History S/P laparoscopic cholecystectomy Social History Smoking Status: Current every day smoker tobacco type: cigarettes alcohol intake: never ROS ROS ED Constitutional Constitutional ED: Denies chills, fever(s) or sweats Eyes Eyes: Denies change in vision ENT ENT ED: Denies dysphagia or sore throat Cardiovascular Cardiovascular: Denies chest pain, leg edema, palpitations or racing heartbeat Respiratory/Chest Respiratory/Chest: Denies cough, dyspnea or dyspnea on exertion Gastrointestinal Gastrointestinal: Denies abdominal pain, diarrhea, nausea or vomiting Genitourinary Genitourinary ED: Denies dysuria, hematuria or urinary frequency Musculoskeletal Musculoskeletal: Denies back pain, extremity pain or neck pain Integumentary Reports abscess; Denies wounds Neurologic Neurologic: Denies headache(s), paresthesias or weakness EXAM Physical Exam Const Vital Signs: 06/10/21 09:57 Temperature 97.0 F L Temperature Source Temporal Pulse Rate 103 H Respiratory Rate 17 Blood Pressure 133/97 H Blood Pressure Mean 109 Pulse Ox 98 Oxygen Delivery Method Room Air Positive well nourished and well developed General Appearance ED: well developed and NAD HEENT Reports moist mucous membranes HEENT Narrative: Scalp behind right ear, scabbing noted 1 cm also noting surrounding erythema with fluctuance extending 3 cm, no indurations. There is no active drainage. Tender to palpation. normocephalic and atraumatic Eyes PERRL, EOMs intact bilaterally and conjunctivae normal General Eye ED: Yes normal appearance of both eyes Neck no lymphadenopathy and supple General: Negative for tenderness Chest Wall Chest: Negative for tenderness Resp normal respiratory effort and normal air movement Effort and Inspection: symmetric chest movement; Negative for respiratory distress Cardio regular rate, regular rhythm and no murmurs Peripheral Pulses: pulses 2+ throughout GI normal to inspection, nondistended, normoactive bowel sounds and non-tender Palpation: Negative for guarding or rebound tenderness present Back/Spine no CVA tenderness and no thoracic nor lumbar tenderness Extremity normal to inspection General Extremety ED: Negative for edema or tenderness General Extremity: Negative for edema Neuro oriented x3 and no sensory deficits noted Sensorium / Orientation: awake and alert Skin Skin Narrative: See above MDM MDM MDM Narrative Medical decision making narrative: Patient reported history concerns had a sebaceous gland that is now infected and was draining. 3 x 4 cm area of i nduration and slight fluctuance with erythema. This was incised and drained, there is no exudates or sebaceous material mild bloody drainage, loculations broken flush she started on antibiotics. Wound care discussed. Follow-up with your PCP in 3 days for wound check. Return if any worsening symptoms. Procedure note: Verbal consent. Incised and drained. Normal sterile fashions. Alcohol swab skin prep, total cc of bupivacaine 0.5% for local analgesia, Betadine prep of the skin, cruciate incision after scab was lifted with 11 blade, loculations broken with hemostats, there is no active drainage flushed with 50 cc of normal saline. Dressing by nursing. Patient tolerated procedure well. Patient is being discharged under pandemic conditions under declared global, national and state disaster activation, with limited medical resources. Patient and community understands this. Results discussed in layman's terms to the patient satisfaction. All questions answered in layman's terms. Patient understands importance of follow-up care as directed. Patient has been instructed to return to the ED immediately if new symptoms, problems, or questions occur. We mutually agree with the plan of disposition. The patient understand that they may call or return with any questions or concerns at any time. Discharge Plan Triage Chief Complaint: Abscess ED Provider: Jakob Verma Dx/Rx/DC Orders Clinical Impression: Infected sebaceous cyst of skin, Encounter for incision and drainage procedure Instructions: Epidermoid Cyst Infect I and D Prescriptions: New sulfamethoxazole-trimethoprim [Bactrim DS] 800-160 mg tablet 1 tab PO Q12H Qty: 14 RF: 0 cephalexin [cephalexin] 500 MG capsule 500 mg PO Q6 Qty: 28 RF: 0 ibuprofen 600 MG tablet 600 mg PO 4X/DAY PRN (Reason: Pain Or Fever) Qty: 20 RF: 0 No Action insulin glargine 100 UNIT/ML insulin pen 30 unit SQ QHS RF: 0 metformin 500 MG tablet 1,000 mg PO BID RF: 0 carvedilol 3.125 MG tablet 6.25 mg PO DAILY RF: 0 Primary Care Provider: Eldno Hernandez Referrals: Eldon Hernandez MD [Primary Care Provider] - 3-5 Days Activity Restrictions/Additional Instructions: Status post incision and drainage. Take antibiotic as prescribed. Follow-up with your doctor for wound check. Return if any worsening symptoms. Disposition Disposition: Home, Self Care Discharge Date/Time: 06/10/21 10:56
[2021-06-10] MEDS: Bupivacaine Mpf 0.5% 30 ML VIAL INFILT (10:41)
[2021-06-10] MEDS: Smz/Tmp Ds Tablet 1 TABLET PO (10:41)
[2021-06-10] MEDS: Cephalexin 250 MG Capsule 500 MG PO (10:41)
== END 2021-06-10 10:56 | disposition home or self-care (01) ==
LOC: ED 10:55
PROVIDERS: Emergency Provider Emergency Medicine; PCP Family Medicine; Visit Provider Emergency Medicine
DX: L72.3 Sebaceous cyst (principal); E11.9 Type 2 diabetes mellitus without complications; I10 Essential (primary) hypertension
CPT/HCPCS: 10060; 99285

== ENCOUNTER 2021-06-16 01:22 | Emergency (ER) | payer MEDICAID, SELFPAY ==
[2021-06-16] VITALS (7 sets, daily range): BP systolic 120–129; BP diastolic 70–82; PULSE 78–95; RESP 14–30; TEMP 36.5; O2SAT 98–99; BMI 36.1
--- NOTE | 2021-06-16 02:05 | RAD_ITS ---
STUDY: X-RAY CHEST REASON FOR EXAM: Female, 40 years old. chest pain TECHNIQUE: Single AP portable view of the chest. COMPARISON: None. FINDINGS: Ill-defined groundglass opacities in the left lung base may represent early pneumonia in the left lower lobe. There is no demonstrated pleural abnormality. Normal size heart. Normal mediastinum and kayden. Normal visualized pulmonary arteries. Normal visualized aortic arch and descending thoracic aorta. Normal visualized thoracic spine. Normal visualized ribs, clavicles, and shoulders. There is no demonstrated abnormality of the visualized soft tissue structures of the upper abdomen. RAD/Chest 1 View (Portable) IMPRESSION: Possible early pneumonia in the left lower lobe. Electronically Signed: Kiet Jackson MD at 2:31 EST ,
--- NOTE | 2021-06-16 02:05 | EKG12_ITS ---
Test Reason : CP Blood Pressure : / mmHG Vent. Rate : 094 BPM Atrial Rate : 094 BPM P-R Int : 140 ms QRS Dur : 088 ms QT Int : 352 ms P-R-T Axes : 063 081 058 degrees QTc Int : 440 ms Normal sinus rhythm Normal ECG Confirmed by AANBEL MALDONADO, KEERTHI ([id number]), editor sound KELSEY CARRERA ([id number]) on 06/17/2021 8:13:15 AM Referred By: JAVON Confirmed By:KEERTHI LITTLE MD
[2021-06-16] MEDS: Aspirin 325 MG Tablet PO (02:10)
[2021-06-16 02:11] LABS: Absolute Lymphocyte Count 2.62 X10^3/uL (0.83-4.51); Absolute Neutrophil Count 3.9 X10^3/uL (2.0-7.7); Basophil# 0.04 X10^3/uL; Basophil% 0.6 % (0-1); Eosinophil# 0.11 X10^3/uL; Eosinophils% 1.5 % (0-5); Lymphocyte # 2.62 X10^3/ul (0.83-4.51); Lymphocyte % 36.8 % (19-41); Mean Corp Hgb Conc 35.6 g/dL (32-36); Mean Corpuscular Hgb 31.6 pg (27.0-32.0); Mean Corpuscular Volume 88.9 fL (81-99); Mean Platelet Vol. 10.1 fl (6.2-12.0); Monocyte# 0.39 X10^3/uL; Monocyte% 5.5 % (0-10); NRBC Flagged by Analyzer 0 % (0-5); Neutrophil # 3.93 X10^3/uL (2.7-7.7); Neutrophil % 55.3 % (47-70); Platelet Count 261 K/mm3 (150-450); RBC Distribution Width CV 12.9 % (11.6-14.6); RBC Distribution Width SD 41.9 fl (35.1-43.9); Red Blood Count 5.06 M/mm3 (4.2-5.4); White Blood Count 7.1 K/mm3 (4.4-11.0)
[2021-06-16 02:29] LABS: Anion Gap 3 (5-15); BUN 13 mg/dL (7-18); Calcium,Total 9.1 mg/dL (8.5-10.1); Chloride 103 mmol/L (98-107); Creatinine, Serum 0.86 mg/dL (0.55-1.02); EST Glomerular Filtration Rate 77 mL/min (>60); Est Glom Filt Rate - Afr Amer 93 mL/min (>60); Estimated Creatinine Clearance 71.93 ml/min; Glucose 425 mg/dL (74-106); Magnesium 2.2 mg/dL (1.6-2.6); Potassium 3.7 mmol/L (3.5-5.1); Sodium Level 134 mmol/L (136-145); Troponin-I HS 4 pg/mL (3.0-54.0)
[2021-06-16] MEDS: Nitroglycerin SL (ED/IMG/CATH) 0.4 MG TABLET SL ×2 (02:54→02:59)
[2021-06-16] MEDS: 0.9% Normal Saline 1,000 ML 999 ML IV (02:54)
[2021-06-16] MEDS: Nitroglycerin Oint 1 INCH PACKET TD (03:17)
--- NOTE | 2021-06-16 03:59 | ED.RN ---
Two orderd for nitro paste in jun. Confirmed with Dr Burgos, only need to give the 1 inch, which was already done
[2021-06-16 04:08] LABS: Troponin-I HS 4 pg/mL (3.0-54.0)
--- NOTE | 2021-06-16 04:27 | EDS_ITS ---
HPI History of Present Illness Chief Complaint: Chest Pain Narrative Narrative: Patient is a 40-year-old female who states she was sitting on the couch watching TV when she felt like she developed acid reflux. She states that this lasted for a few minutes and then it resolved. She reports once that acid sensation resolved she noticed a pressure discomfort in her midsternal chest which she states made her feel nauseous clammy and short of breath. She reports that she is a diabetic and had a mother and father who had cardiac disease at age 50 and therefore decided to come to the hospital for evaluation. Patient denies any excessive activity or illicit drug use. She does states she has been having intermittent coughing over the past few days as well [facility] Medical History (Updated 06/16/21 @ 04:[address] Mehran Burgos, ) Anxiety Cellulitis of foot, right Chest pain Diabetes HTN (hypertension) Leaky heart valve Lupus Home Medications insulin glargine 30 unit SQ QHS 04/29/17 [History Last Taken Unknown] metformin 1,000 mg PO DAILY 12/06/17 [History Last Taken Unknown] carvedilol 6.25 mg PO DAILY 10/15/19 [History Last Taken Unknown] cephalexin 500 mg PO Q6 #28 cap 06/10/21 [Rx Last Taken Unknown] ibuprofen 600 mg PO 4X/DAY PRN #20 tab 06/10/21 [Rx Last Taken Unknown] sulfamethoxazole-trimethoprim [Bactrim DS] 1 tab PO Q12H #14 tab 06/10/21 [Rx Last Taken Unknown] doxycycline hyclate 100 mg PO BID 7 Days #14 cap 06/16/21 [Rx Last Taken Unknown] Allergy/AdvReac Type Severity Reaction Status Date / Time cetirizine HCl [From Zyrtec] Allergy Hives Verified 06/16/21 01:26 prochlorperazine edisylate Allergy Hives Verified 06/16/21 01:26 [From Compazine] prochlorperazine maleate Allergy Hives Verified 06/16/21 01:26 [From Compazine] acetaminophen [From Percocet] AdvReac Nausea/Vom/ Verified 06/16/21 01:26 Diarrhea oxycodone [From Percocet] AdvReac Nausea/Vom/ Verified 06/16/21 01:26 Diarrhea Family History Mother Diabetes Hypertension Father Diabetes Surgical History S/P laparoscopic cholecystectomy Social History Smoking Status: Current every day smoker tobacco type: cigarettes alcohol intake: never ROS ROS ED Constitutional Constitutional ED: Denies chills or fever(s) ENT ENT ED: Denies sore throat Cardiovascular Cardiovascular: Reports chest pain; Denies palpitations or racing heartbeat Respiratory/Chest Respiratory/Chest: Reports cough and dyspnea Gastrointestinal Gastrointestinal: Reports nausea; Denies abdominal pain, diarrhea or vomiting Genitourinary Genitourinary ED: Denies dysuria Musculoskeletal Musculoskeletal: Denies myalgias Integumentary Denies rash Neurologic Neurologic: Denies headache(s) Hematologic/Lymphatic Hematologic/Lymphatic: Denies easy bleeding or easy bruising EXAM Physical Exam Const Vital Signs: 06/16/21 01:23 06/16/21 01:26 06/16/21 02:22 Temperature 97.7 F L Temperature Source Temporal Pulse Rate 95 87 Respiratory Rate 18 14 Respiratory Effort Normal Respiratory Pattern Normal Blood Pressure 129/82 H Blood Pressure Mean 97 Pulse Ox 99 98 Oxygen Delivery Method Room Air Room Air 06/16/21 02:54 06/16/21 02:59 06/16/21 03:16 Temperature Temperature Source Pulse Rate 87 90 80 Respiratory Rate 30 H Respiratory Effort Respiratory Pattern Blood Pressure 126/82 H 122/70 H 129/74 H Blood Pressure Mean 92 Pulse Ox 98 Oxygen Delivery Method Room Air 06/16/21 03:17 Temperature Temperature Source Pulse Rate 82 Respiratory Rate Respiratory Effort Respiratory Pattern Blood Pressure 129/74 H Blood Pressure Mean Pulse Ox Oxygen Delivery Method Positive well nourished, well developed and obese General Appearance ED: well developed Nutritional Appearance: obese HEENT Reports moist mucous membranes Eyes PERRL and EOMs intact bilaterally Neck supple and no JVD Chest Wall palpation of chest normal Resp normal respiratory effort and clear to auscultation bilaterally Cardio regular rate and regular rhythm Rate: other Other Details: Radial pulses are plus 2 out of 4 bilaterally are equal and symmetric GI normal to inspection, nondistended, normoactive bowel sounds, non-tender, non-distended and no masses GI Narrative: No voluntary guarding or rigidity no pulsatile mass Auscultation: normoactive bowel sounds Palpation: soft Extremity normal to inspection Extremity Narrative: No asymmetric edema no pitting edema negative Homans' sign bilaterally Neuro oriented x3 and CN's II-XII intact bilaterally Sensorium / Orientation: alert Motor Exam: strength 5/5 throughout Psych mental status grossly normal Skin no rashes or lesions noted MDM MDM MDM Narrative Medical decision making narrative: Patient presented to the ER with stable vitals. Her history is concerning for cardiac event and she does have risk factors based on her diabetes as well as family history and therefore a cardiac work-up was obtained. EKG is sinus rhythm initial and delta troponin are normal at 4. Patient's x-ray question pneumonia and she states she has been had intermittent coughing recently. However she is in no respiratory distress satting well on room air in the high 90s and does not have physical exam or lab changes to suggest septicemia. I discussed with patient possible admission based on her multiple risk factors. However the patient states she is pain-free at this time and the fact that she has had 2 normal blood test for her heart does not want to be admitted to the hospital. I stressed the importance of getting this further evaluated based on her multiple risk factors and patient states that she will have this done but on an outpatient basis as she is pain- free and the blood test for her heart have remained normal. Because of the questionable pneumonia and intermittent cough I will place her on a 7-day course of doxycycline but otherwise patient will be discharged at this time in stable condition Lab Data Attestation: I reviewed the patient's lab results. Labs: Laboratory Results - last 24 hr 06/16/21 06/16/21 06/16/21 01:28 01:28 03:27 WBC 7.1 RBC 5.06 Hgb 16.0 H Hct 45.0 MCV 88.9 MCH 31.6 MCHC 35.6 RDW Std Deviation 41.9 RDW Coeff of Sriram 12.9 Plt Count 261 MPV 10.1 Immature Gran % (Auto) 0.300 Neut % (Auto) 55.3 Lymph % (Auto) 36.8 [place] % (Auto) 5.5 Eos % (Auto) 1.5 Baso % (Auto) 0.6 Absolute Neuts (auto) 3.9 Absolute Lymphs (auto) 2.62 Nucleated RBC % 0 Sodium 134 L Potassium 3.7 Chloride 103 Carbon Dioxide 28.0 Anion Gap 3 L BUN 13 Creatinine 0.86 Estim Creat Clear Calc 71.93 Est GFR (MDRD) Af Amer 93 Est GFR (MDRD) Non-Af 77 BUN/Creatinine Ratio 15.0 Glucose 425 H Calcium 9.1 Magnesium 2.2 Troponin I High Sens 4 4 Radiography Diagnostic Testing: Clinical Impression(s) from Imaging Studies Chest X-Ray 06/16/21 02:05 IMPRESSION: Possible early pneumonia in the left lower lobe. Electronically Signed: Kiet Jackson MD at 2:31 EST , Discharge Plan Triage Chief Complaint: Chest Pain ED Provider: Mehran Burgos Dx/Rx/DC Orders Clinical Impression: Nonspecific chest pain, Diabetes Instructions: ED Chest Pain, Uncertain Cause Prescriptions: New doxycycline hyclate 100 mg capsule 100 mg PO BID 7 Days Qty: 14 RF: 0 No Action insulin glargine 100 UNIT/ML insulin pen 30 unit SQ QHS RF: 0 metformin 500 MG tablet 1,000 mg PO DAILY RF: 0 carvedilol 3.125 MG tablet 6.25 mg PO DAILY RF: 0 sulfamethoxazole-trimethoprim [Bactrim DS] 800-160 mg tablet 1 tab PO Q12H Qty: 14 RF: 0 cephalexin [cephalexin] 500 MG capsule 500 mg PO Q6 Qty: 28 RF: 0 ibuprofen 600 MG tablet 600 mg PO 4X/DAY PRN (Reason: Pain Or Fever) Qty: 20 RF: 0 Primary Care Provider: Eldon Hernandez Referrals: Eldon Hernandez MD [Primary Care Provider] - Activity Restrictions/Additional Instructions: Please discuss with your family doctor about obtaining an outpatient stress test to further evaluate your heart based on your risk factors or cardiac disease. Also please take the antibiotic/doxycycline as directed based on your intermittent cough and questionable infection noted on your x-ray obtained today. Disposition Disposition: Home, Self Care
== END 2021-06-16 04:39 | disposition home or self-care (01) ==
PROVIDERS: Emergency Provider Emergency Medicine; PCP Family Medicine; Visit Provider Emergency Medicine
DX: R07.9 Chest pain, unspecified (principal); E11.9 Type 2 diabetes mellitus without complications; I10 Essential (primary) hypertension; Z82.49 Family history of ischemic heart disease and other diseases of the circulatory system; R05.9 Cough, unspecified; F17.200 Nicotine dependence, unspecified, uncomplicated
CPT/HCPCS: 71045; 80048; 83735; 84484; 85025; 93005; 99285; A4216

== ENCOUNTER 2021-08-25 15:58 | Emergency (ER) | payer MEDICAID, SELFPAY ==
[2021-08-25 15:59] VITALS: BP 161/93; PULSE 88; RESP 15; TEMP 36.1; O2SAT 99; BMI 32.5
--- NOTE | 2021-08-25 16:15 | VDLE_ITS ---
Reason For Study: pain RIGHT GSV is normal. CFV is compressible, spontaneous, phasic, competent and demonstrates normal augmentation. FV is compressible, spontaneous, phasic, competent and demonstrates normal augmentation. POP V is compressible, spontaneous, phasic, competent and demonstrates normal augmentation. T/P Trunk is compressible. PTV is compressible. RT PerV is compressible. Procedure This is a venous duplex using B-mode, color flow and spectral Doppler. Exam performed portable in ED. The exam was abbreviated due to the COVID 19 protocol. The exam was diagnostic. A preliminary report was called and/or faxed to Dr. Damon. VL/Venous Duplex US, Unilateral Interpretation Summary There is no evidence of right lower extremity deep vein thrombosis. Right great saphenous vein appears patent and compressible segmentally. Abbreviated COVID-19 protocol util ized Ordering Physician: Guerrero Damon Performed By: Jag Dent RVT
--- NOTE | 2021-08-25 16:17 | ED.VIS.LOWEX ---
HPI History of Present Illness Chief Complaint: Lower Extremity Injury Detail of Chief Complaint: Atraumatic right calf pain Informant: patient Occured/Mechanism Mechanism/Context: No injury and No blunt trauma Onset/Context/Timing Onset: Today Context: Gradual Onset Timing: Continuous Current Severity: Mild Maximum Severity: Mild Associated Symptoms Associated Symptoms: Negative for Parasthesia, Weakness and Loss of Funtion Narrative Narrative: 41-year-old female complaining of atraumatic right calf pain that began today several hours ago. Then she developed discoloration and bruising. She denies any fall injury or trauma. She is on no blood thinners. She is diabetic and has lupus. She also takes estrogen therapy. She is never had a DVT or PE. She has had no recent travel, surgery or immobilization. Prior similar symptoms: No Recent Illness/Hospitalization: No PFSH PFSH Medical History Anxiety Cellulitis of foot, right Chest pain Diabetes HTN (hypertension) Leaky heart valve Lupus Home Medications insulin glargine 30 unit SQ QHS 04/29/17 [History Last Taken Unknown] metformin 1,000 mg PO DAILY 12/06/17 [History Last Taken Unknown] carvedilol 6.25 mg PO DAILY 10/15/19 [History Last Taken Unknown] cephalexin 500 mg PO Q6 #28 cap 06/10/21 [Rx Last Taken Unknown] ibuprofen 600 mg PO 4X/DAY PRN #20 tab 06/10/21 [Rx Last Taken Unknown] sulfamethoxazole-trimethoprim [Bactrim DS] 1 tab PO Q12H #14 tab 06/10/21 [Rx Last Taken Unknown] doxycycline hyclate 100 mg PO BID 7 Days #14 cap 06/16/21 [Rx Last Taken Unknown] Allergy/AdvReac Type Severity Reaction Status Date / Time cetirizine HCl [From Zyrtec] Allergy Hives Verified 08/25/21 16:01 prochlorperazine edisylate Allergy Hives Verified 08/25/21 16:01 [From Compazine] prochlorperazine maleate Allergy Hives Verified 08/25/21 16:01 [From Compazine] acetaminophen [From Percocet] AdvReac Nausea/Vom/ Verified 08/25/21 16:01 Diarrhea oxycodone [From Percocet] AdvReac Nausea/Vom/ Verified 08/25/21 16:01 Diarrhea Family History Mother Diabetes Hypertension Father Diabetes Surgical History S/P laparoscopic cholecystectomy Social History Smoking Status: Current every day smoker tobacco type: cigarettes alcohol intake: never ROS ROS ED ROS Narrative Denies recent illness. Review of Systems ROS Unobtainable: Denies due to encephalopathy Constitutional Constitutional ED: Denies fever(s) Eyes Eyes: Denies change in vision ENT ENT ED: Denies ear pain Cardiovascular Cardiovascular: Reports chest pain; Denies palpitations or racing heartbeat Respiratory/Chest Respiratory/Chest: Denies dyspnea Gastrointestinal Gastrointestinal: Denies abdominal pain, diarrhea, nausea or vomiting Genitourinary Genitourinary ED: Denies dysuria Musculoskeletal Musculoskeletal: Denies myalgias Integumentary Denies rash Neurologic Neurologic: Denies headache(s) Psychiatric Psychiatric: Denies depression Endocrine Endocrinology: Denies polyuria Hematologic/Lymphatic Hematologic/Lymphatic: Denies easy bruising Allergic/Immunologic Allergic/Immunologic ED: Denies urticaria EXAM Physical Exam Narrative Exam Narrative: 41-year-old female no acute distress vital signs stable afebrile. H EENT exam unremarkable. Neck nontender. Lungs are clear. Heart regular rhythm no murmur. Abdomen soft nontender. Moving all 4 extremities. Her right calf proximal and just past the knee has an area about the size of a $0.50 piece that is tender and bruised. She denies any trauma. Resistantly there is no erythema. Right foot is neurovascular intact with normal dorsi plantar flexion. Normal touch sensation and pulses. Left lower extremity is unremarkable. Otherwise exam normal. Const Vital Signs: 08/25/21 15:59 Temperature 96.9 F L Temperature Source Temporal Pulse Rate 88 Respiratory Rate 15 Blood Pressure 161/93 H Blood Pressure Mean 115 Pulse Ox 99 Oxygen Delivery Method Room Air Positive well nourished, well developed and obese; Negative for cachectic, contractures or unkempt General Appearance ED: well developed and NAD; Negative for unkempt, cachectic or contractures Nutritional Appearance: obese; Negative for cachectic HEENT Reports moist mucous membranes normocephalic and atraumatic; Negative for trauma or tenderness Eyes PERRL Neck full ROM and No supple Thyroid: Negative for tender Chest Wall inspection of chest normal and palpation of chest normal Resp normal respiratory effort, No no retractions and clear to auscultation bilaterally Auscultation: Negative for rales, rhonchi or wheezes Cardio regular rate, regular rhythm, S1 normal heart sound, S2 normal heart sound and no murmurs GI non-tender, non-distended and no masses Inspection: Negative for abdominal distention Auscultation: normoactive bowel sounds Palpation: soft; Negative for tender, guarding or rebound tenderness present Back/Spine no CVA tenderness General Back: Negative for CVA tenderness Cervical Spine: Negative for cervical spine tenderness Thoracic Spine / Upper Back: Negative for thoracic spinal tenderness Lumbar Spine / Lower Back: Negative for lumbar spinal tenderness Extremity normal to inspection and full ROM Extremity Narrative: Proximal right calf posteriorly and has an area of tenderness and bruising about the size of a half dollar. There is no erythema. General Extremety ED: Negative for cyanosis, edema or weight-bearing difficulty General Extremity: Negative for cyanosis, edema or weight-bearing difficulty Psych mental status grossly normal Appearance: Negative for unkempt Mood & Affect: Negative for anxious Skin no wounds Lesions: no lesions Rashes: no rashes Trauma: Negative for abrasion, laceration or puncture MDM MDM MDM Narrative Medical decision making narrative: 41-year-old female on estrogen replacement therapy complaining of atraumatic right calf pain. Clinically I think this is a bruise but she denies any trauma or injury. Ultrasound be obtained to rule out DVT. Repeat exam doing well at 4:36 PM will be discharged to home. Exam unchanged. Radiography Diagnostic Testing: Noninvasive study of the right lower extremity shows no DVT per the aircraft ordnance technician discussed with me. Discharge Plan Triage Chief Complaint: Lower Extremity Injury ED Provider: Guerrero Damon Dx/Rx/DC Orders Clinical Impression: Hematoma of right lower extremity, History of diabetes mellitus, History of lupus Instructions: ED Contusion, Lower Extremity Prescriptions: No Action insulin glargine 100 UNIT/ML insulin pen 30 unit SQ QHS RF: 0 metformin 500 MG tablet 1,000 mg PO DAILY RF: 0 carvedilol 3.125 MG tablet 6.25 mg PO DAILY RF: 0 sulfamethoxazole-trimethoprim [Bactrim DS] 800-160 mg tablet 1 tab PO Q12H Qty: 14 RF: 0 cephalexin [cephalexin] 500 MG capsule 500 mg PO Q6 Qty: 28 RF: 0 ibuprofen 600 MG tablet 600 mg PO 4X/DAY PRN (Reason: Pain Or Fever) Qty: 20 RF: 0 doxycycline hyclate 100 mg capsule 100 mg PO BID 7 Days Qty: 14 RF: 0 Primary Care Provider: Eldon Hernandez Referrals: Eldon Hernandez MD [Primary Care Provider] - 10-14 Days if not better Activity Restrictions/Additional Instructions: Motrin for pain. Ice to the area. This should continually improve but may take several weeks. Disposition Disposition: Home, Self Care
== END 2021-08-25 16:43 | disposition home or self-care (01) ==
PROVIDERS: Emergency Provider Emergency Medicine; PCP Family Medicine; Visit Provider Emergency Medicine
DX: S80.11XA Contusion of right lower leg, initial encounter (principal); M32.9 Systemic lupus erythematosus, unspecified; E11.9 Type 2 diabetes mellitus without complications; I10 Essential (primary) hypertension; Z90.49 Acquired absence of other specified parts of digestive tract; M79.661 Pain in right lower leg; X58.XXXA Exposure to other specified factors, initial encounter
CPT/HCPCS: 93971; 99282

== ENCOUNTER 2021-10-14 19:40 | Emergency (ER) | payer MEDICAID, SELFPAY ==
[2021-10-14 19:41] VITALS: BP 152/93; PULSE 99; RESP 16; TEMP 36.6; O2SAT 97; BMI 34.1
--- NOTE | 2021-12-15 08:59 | EX.ED.DYSGE1 ---
HPI History of Present Illness Chief Complaint: Abscess [facility] Medical History (Updated 12/06/21 @ 00:01 by Sil Lujan) Anxiety Cellulitis of foot, right Chest pain Diabetes HTN (hypertension) Leaky heart valve Lupus Home Medications insulin glargine 100 unit/mL (3 mL) subcutaneous pen 30 unit SQ QHS 04/29/17 [History Last Taken Unknown] metformin 500 mg tablet 1,000 mg PO DAILY 12/06/17 [History Last Taken Unknown] carvedilol 3.125 mg tablet 6.25 mg PO DAILY 10/15/19 [History Last Taken Unknown] cephalexin 500 mg capsule 500 mg PO Q6 #28 caps 06/10/21 [Rx Last Taken Unknown] ibuprofen 600 mg tablet 600 mg PO 4X/DAY PRN Pain Or Fever #20 tabs 06/10/21 [Rx Last Taken Unknown] sulfamethoxazole 800 mg-trimethoprim 160 mg tablet (Bactrim DS) 1 tab PO Q12H #14 tabs 06/10/21 [Rx Last Taken Unknown] doxycycline hyclate 100 mg capsule 100 mg PO BID 7 days #14 caps 06/16/21 [Rx Last Taken Unknown] Allergy/AdvReac Type Severity Reaction Status Date / Time cetirizine HCl [From Zyrtec] Allergy Hives Verified 11/28/21 17:46 prochlorperazine edisylate Allergy Hives Verified 11/28/21 17:46 [From Compazine] prochlorperazine maleate Allergy Hives Verified 11/28/21 17:46 [From Compazine] acetaminophen [From Percocet] AdvReac Nausea/Vom/ Verified 11/28/21 17:46 Diarrhea oxycodone [From Percocet] AdvReac Nausea/Vom/ Verified 11/28/21 17:46 Diarrhea Family History Mother Diabetes Hypertension Father Diabetes Surgical History S/P laparoscopic cholecystectomy Social History Smoking Status: Current every day smoker tobacco type: cigarettes alcohol intake: never Discharge Plan Triage Chief Complaint: Abscess ED Provider: Mal Gomez Dx/Rx/DC Orders Prescriptions: No Action insulin glargine 100 UNIT/ML insulin pen 30 unit SQ QHS metformin 500 MG tablet 1,000 mg PO DAILY Label Comments: TAKE 1 TABLET TWICE DAILY WITH meals carvedilol 3.125 MG tablet 6.25 mg PO DAILY sulfamethoxazole-trimethoprim [Bactrim DS] 800-160 mg tablet 1 tab PO Q12H Qty: 14 0RF cephalexin [cephalexin] 500 MG capsule 500 mg PO Q6 Qty: 28 0RF ibuprofen 600 MG tablet 600 mg PO 4X/DAY PRN (Reason: Pain Or Fever) Qty: 20 0RF doxycycline hyclate 100 mg capsule 100 mg PO BID 7 Days Qty: 14 0RF Primary Care Provider: Eldon Hernandez Referrals: Eldon Hernandez MD [Primary Care Provider] - Disposition Disposition: Elopement Discharge Date/Time: 10/14/21 21:51
== END 2021-10-14 21:51 | disposition left against medical advice (07) ==
PROVIDERS: Emergency Provider Emergency Medicine; PCP Family Medicine; Visit Provider Emergency Medicine
DX: L02.91 Cutaneous abscess, unspecified (principal)
CPT/HCPCS: 99282

== ENCOUNTER 2021-11-28 17:43 | Emergency (ER) | payer MEDICAID, SELFPAY ==
[2021-11-28 17:43] VITALS: BP 131/84; PULSE 99; RESP 15; TEMP 36.3; O2SAT 95; BMI 34.4
--- NOTE | 2021-11-28 17:53 | RAD_ITS ---
EXAM: XR RIGHT FOOT COMPLETE, 3 OR MORE VIEWS CLINICAL INDICATION: Injury/Pain TECHNIQUE: Frontal, lateral and oblique views of the right foot. This report was created using [employer] report generation technology. COMPARISON: None. FINDINGS: BONES/JOINTS: Unremarkable. No acute fracture. No subluxation. Normal alignment. Preservation of the joint space. No sclerotic or destructive changes observed. SOFT TISSUES: Soft tissue swelling of the dorsum of the foot. No radiopaque foreign body. RAD/Foot min 3 Views IMPRESSION: Soft tissue swelling of the dorsum of the foot. Electronically Signed: Bismark Diego MD at 18:25 EDT ,
--- NOTE | 2021-11-28 17:53 | EDS_ITS ---
HPI <JUSTEN Power - Last Filed: 11/28/21 18:45> History of Present Illness Chief Complaint: Lower Extremity Injury Narrative Narrative: About 20 minutes ago patient was walking quickly and accidentally struck her right lateral lower leg against a wooden door frame. She has pain and swelling in the foot and ankle and abrasion on the back of her calf. She is not able to bear weight. [facility] <JUSTEN Power - Last Filed: 11/28/21 18:45> [facility] Medical History (Updated 11/28/21 @ 18:34 by JUSTEN Power) Anxiety Cellulitis of foot, right Chest pain Diabetes HTN (hypertension) Leaky heart valve Lupus Home Medications insulin glargine 100 unit/mL (3 mL) subcutaneous pen 30 unit SQ QHS 04/29/17 [History Last Taken Unknown] metformin 500 mg tablet 1,000 mg PO DAILY 12/06/17 [History Last Taken Unknown] carvedilol 3.125 mg tablet 6.25 mg PO DAILY 10/15/19 [History Last Taken Unknown] cephalexin 500 mg capsule 500 mg PO Q6 #28 caps 06/10/21 [Rx Last Taken Unknown] ibuprofen 600 mg tablet 600 mg PO 4X/DAY PRN Pain Or Fever #20 tabs 06/10/21 [Rx Last Taken Unknown] sulfamethoxazole 800 mg-trimethoprim 160 mg tablet (Bactrim DS) 1 tab PO Q12H #14 tabs 06/10/21 [Rx Last Taken Unknown] doxycycline hyclate 100 mg capsule 100 mg PO BID 7 days #14 caps 06/16/21 [Rx Last Taken Unknown] Allergy/AdvReac Type Severity Reaction Status Date / Time cetirizine HCl [From Zyrtec] Allergy Hives Verified 11/28/21 17:46 prochlorperazine edisylate Allergy Hives Verified 11/28/21 17:46 [From Compazine] prochlorperazine maleate Allergy Hives Verified 11/28/21 17:46 [From Compazine] acetaminophen [From Percocet] AdvReac Nausea/Vom/ Verified 11/28/21 17:46 Diarrhea oxycodone [From Percocet] AdvReac Nausea/Vom/ Verified 11/28/21 17:46 Diarrhea Family History Mother Diabetes Hypertension Father Diabetes Surgical History S/P laparoscopic cholecystectomy Social History Smoking Status: Current every day smoker tobacco type: cigarettes alcohol intake: never ROS <JUSTEN Power - Last Filed: 11/28/21 18:45> ROS ED ROS Narrative Constitutional: Negative for fever, chills, malaise. Eyes: Negative for visual change. ENT: Negative for sore throat, rhinorrhea. CVS: Negative for palpitations, chest pain, syncope. Respiratory: Negative for shortness of breath, orthopnea. GI: Negative for abdominal pain, nausea, vomiting. : Negative for dysuria, hematuria or frequency. Neuro: Negative for headache, motor/sensory dysfunction. Skin: Negative for rash, abscess, or wound. Musc: Positive for right ankle pain, swelling, trauma. Heme: Negative for easy bruising, bleeding, lymphadenopathy. EXAM <JUSTEN Power - Last Filed: 11/28/21 18:45> Physical Exam Narrative Exam Narrative: CONST: Patient sitting in no acute distress. EYES: Normal inspection. NECK: Normal inspection. RESP: No respiratory distress, CTAB. CVS: Regular rate and rhythm, no murmur, no gallop. SKIN: Abraded skin right posterior calf. EXTREMITIES: Soft tissue swelling over the lateral ankle and foot, TTP over lateral malleolus and diffusely over the dorsum of the foot. No tenderness of the knee or tibia/fibula. Right great toenail has been removed (chronic). Achilles tendon intact. 2+ DP pulse. NEURO: Oriented x4. PSYCH: Normal affect. Const Vital Signs: 11/28/21 17:43 Temperature 97.4 F L Temperature Source Temporal Pulse Rate 99 Respiratory Rate 15 Blood Pressure 131/84 H Blood Pressure Mean 99 Pulse Ox 95 Oxygen Delivery Method Room Air <Dr. Tracie Fairchild, DO - Last Filed: 12/01/21 09:39> Physical Exam Const Vital Signs: 11/28/21 17:43 Temperature 97.4 F L Temperature Source Temporal Pulse Rate 99 Respiratory Rate 15 Blood Pressure 131/84 H Blood Pressure Mean 99 Pulse Ox 95 Oxygen Delivery Method Room Air MDM <JUSTEN Power - Last Filed: 11/28/21 18:45> [facility] Narrative Medical decision making narrative: Patient had blunt trauma to her right lower extremity and presents with foot and ankle pain. There is some soft tissue swelling over the dorsum of the foot and tenderness over the foot and lateral ankle. Neurovascularly intact. X-rays of the ankle and foot both negative. Patient was given crutches, Vipul wrap, and advised to use RICE protocol and [id number] analgesia for her leg contusions. She was discharged in stable condition. Radiography Diagnostic Testing: Clinical Impression(s) from Imaging Studies Foot X-Ray 11/28/21 17:53 IMPRESSION: Soft tissue swelling of the dorsum of the foot. Electronically Signed: Bismark Diego MD at 18:25 EDT , Ankle X-Ray 11/28/21 17:55 IMPRESSION: Negative right ankle x-rays. Electronically Signed: Bismark Diego MD at 18:25 EDT , ED attending interpretation of right ankle and foot show no fracture or dislocation. <Dr. Tracie Fairchild DO - Last Filed: 12/01/21 09:39> [facility] Narrative Medical decision making narrative: Patient had blunt trauma to her right lower extremity and presents with foot and ankle pain. There is some soft tissue swelling over the dorsum of the foot and tenderness over the foot and lateral ankle. Neurovascularly intact. X-rays of the ankle and foot both negative. Patient was given crutches, Vipul wrap, and advised to use RICE protocol and [id number] analgesia for her leg contusions. She was discharged in stable condition. I have personally performed a face to face assessment of the patient and have reviewed the HOWARD Note. I performed a substantive portion of the visit including all aspects of the following. My bocanegra findings include: History is patient is a 41-year-old female presenting with injury to her right foot and ankle. Patient states she was in her daughter's motorized wheelchair and ran into a door frame causing injury and abrasion. She immediate pain. Has no associated numbness or tingling. Given emergency room for further evaluation. Exam is well-appearing, no acute distress. Head normocephalic/atraumatic. Moist mucosal membranes. Neck is supple. 2+ DP pulses bilaterally. Regular rate and rhythm. Easy respirations with no respiratory distress. No obvious deformity. Patient does have tenderness over the right lateral malleolus and the fourth and fifth metatarsals. No obvious deformity. There is is some associated soft tissue swelling of the midfoot. Patient has superficial abrasion to the right calf. Normal Maldonado test. No focal neurologic deficits appreciated. Medical Decision Making patient sustained blunt injury to her right foot and a nkle. X-rays obtained do not show any acute fracture interpreted by myself as well as radiology. Patient given crutches as well as Vipul wrap. Counseled on NSAID therapy. Encouraged follow-up with PCP if symptoms do not improve with conservative measures. She verbalized agreement and understands this plan. Other additions or changes: [None] Radiography Diagnostic Testing: Clinical Impression(s) from Imaging Studies Foot X-Ray 11/28/21 17:53 IMPRESSION: Soft tissue swelling of the dorsum of the foot. Electronically Signed: Bismark Diego MD at 18:25 EDT , Ankle X-Ray 11/28/21 17:55 IMPRESSION: Negative right ankle x-rays. Electronically Signed: Bismark Diego MD at 18:25 EDT , Discharge Plan Triage Chief Complaint: Lower Extremity Injury ED Midlevel Provider: Daja Douglas ED Provider: Tracie Fairchild Dx/Rx/DC Orders Clinical Impression: Contusion of ankle, right, Right leg pain Instructions: ED Contusion, Lower Extremity Prescriptions: No Action insulin glargine 100 UNIT/ML insulin pen 30 unit SQ QHS metformin 500 MG tablet 1,000 mg PO DAILY Label Comments: TAKE 1 TABLET TWICE DAILY WITH meals carvedilol 3.125 MG tablet 6.25 mg PO DAILY sulfamethoxazole-trimethoprim [Bactrim DS] 800-160 mg tablet 1 tab PO Q12H Qty: 14 0RF cephalexin [cephalexin] 500 MG capsule 500 mg PO Q6 Qty: 28 0RF ibuprofen 600 MG tablet 600 mg PO 4X/DAY PRN (Reason: Pain Or Fever) Qty: 20 0RF doxycycline hyclate 100 mg capsule 100 mg PO BID 7 Days Qty: 14 0RF Primary Care Provider: Eldon Hernandez Referrals: Eldon Hernandez MD [Primary Care Provider] - Activity Restrictions/Additional Instructions: Rest, ice, elevate your leg. You can gradually put weight back on it as the pain lessens. Take Tylenol ibuprofen every 6 hours as needed. Disposition Disposition: Home, Self Care
--- NOTE | 2021-11-28 17:55 | RAD_ITS ---
EXAM: XR RIGHT ANKLE COMPLETE, 3 OR MORE VIEWS CLINICAL INDICATION: Injury/Pain TECHNIQUE: Frontal, lateral and oblique views of the right ankle. This report was created using [employer] report generation technology. COMPARISON: None. FINDINGS: BONES/JOINTS: Unremarkable. No acute fracture. No subluxation. Normal alignment. Preservation of the joint space. No sclerotic or destructive changes observed. SOFT TISSUES: Unremarkable. No soft tissue swelling or gas. No radiopaque foreign body. RAD/Ankle min 3 Views IMPRESSION: Negative right ankle x-rays. Electronically Signed: Bismark Diego MD at 18:25 EDT ,
[2021-11-28] MEDS: Ibuprofen 600 MG Tablet PO (18:00)
== END 2021-11-28 18:57 | disposition home or self-care (01) ==
PROVIDERS: Emergency Provider Emergency Medicine; PCP Family Medicine; Visit Provider Emergency Medicine
DX: S80.811A Abrasion, right lower leg, initial encounter (principal); E11.9 Type 2 diabetes mellitus without complications; S80.11XA Contusion of right lower leg, initial encounter; I10 Essential (primary) hypertension; M25.571 Pain in right ankle and joints of right foot; W22.09XA Striking against other stationary object, initial encounter
CPT/HCPCS: 73610; 73630; 99284

== ENCOUNTER 2022-04-01 22:47 | Emergency (ER) | payer MEDICAID, SELFPAY ==
[2022-04-01 22:48] VITALS: BP 127/80; PULSE 95; RESP 16; TEMP 36.7; O2SAT 97; BMI 34.9
[2022-04-01] MEDS: dexAMETHasone 10 MG/ML Vial PO.IVFORM (23:35)
--- NOTE | 2022-04-01 23:35 | RAD_ITS ---
EXAM: XR CHEST, 2 VIEWS CLINICAL INDICATION: cough TECHNIQUE: Frontal and lateral views of the chest. This report was created using [employer] report generation technology. COMPARISON: June 16, 2021. May 13, 2018 FINDINGS: LUNGS AND PLEURAL SPACES: Unremarkable. No consolidation or edema. No pneumothorax. No effusion. HEART: Unremarkable. Cardiac silhouette not enlarged. MEDIASTINUM: Central airways and mediastinal contour are unremarkable. BONES/JOINTS: Unremarkable. SOFT TISSUES: Unremarkable. RAD/Chest PA and Lateral IMPRESSION: No radiographic evidence of acute cardiopulmonary disease. Electronically Signed: Liliana Henderson MD at 0:14 EST ,
--- NOTE | 2022-04-02 00:18 | EDS_ITS ---
HPI History of Present Illness Chief Complaint: General Illness Narrative Narrative: Patient is a 41-year-old female with past medical history of hypertension and and lupus as well as smoking but no need for supplemental oxygen or or no formal diagnosis of COPD. She reports 3 to 4 days of headache congestion sore throat cough muscle aches and fatigue. She denies any known sick contacts. She states her symptoms do not improve she presents for evaluation. [facility] Medical History (Updated 04/02/22 @ 01:[address] Mehran Burgos, DO) Anxiety Cellulitis of foot, right Chest pain Diabetes HTN (hypertension) Leaky heart valve Lupus Home Medications insulin glargine 100 unit/mL (3 mL) subcutaneous pen 30 unit SQ QHS 04/29/17 [History Last Taken Unknown] metformin 500 mg tablet 1,000 mg PO DAILY 12/06/17 [History Last Taken Unknown] carvedilol 3.125 mg tablet 6.25 mg PO DAILY 10/15/19 [History Last Taken Unknown] cephalexin 500 mg capsule 500 mg PO Q6 #28 caps 06/10/21 [Rx Last Taken Unknown] ibuprofen 600 mg tablet 600 mg PO 4X/DAY PRN Pain Or Fever #20 tabs 06/10/21 [Rx Last Taken Unknown] sulfamethoxazole 800 mg-trimethoprim 160 mg tablet (Bactrim DS) 1 tab PO Q12H #14 tabs 06/10/21 [Rx Last Taken Unknown] doxycycline hyclate 100 mg capsule 100 mg PO BID 7 days #14 caps 06/16/21 [Rx Last Taken Unknown] oseltamivir 75 mg capsule (Tamiflu) 75 mg PO BID 5 days #10 caps 04/02/22 [Rx Last Taken Unknown] prednisone 20 mg tablet 40 mg PO DAILY 5 days #10 tabs 04/02/22 [Rx Last Taken Unknown] promethazine 6.25 mg-codeine 10 mg/5 mL syrup 5 ml PO 4X/DAY PRN PRN cough 7 days #140 mL 04/02/22 [Rx Last Taken Unknown] Allergy/AdvReac Type Severity Reaction Status Date / Time cetirizine HCl [From Zyrtec] Allergy Hives Verified 04/01/22 22:51 prochlorperazine edisylate Allergy Hives Verified 04/01/22 22:51 [From Compazine] prochlorperazine maleate Allergy Hives Verified 04/01/22 22:51 [From Compazine] acetaminophen [From Percocet] AdvReac Nausea/Vom/ Verified 04/01/22 22:51 Diarrhea oxycodone [From Percocet] AdvReac Nausea/Vom/ Verified 04/01/22 22:51 Diarrhea Family History Mother Diabetes Hypertension Father Diabetes Surgical History S/P laparoscopic cholecystectomy Social History Smoking Status: Current every day smoker tobacco type: cigarettes alcohol intake: never ROS ROS ED Constitutional Constitutional ED: Reports chills and subjective; Denies fever(s) ENT ENT ED: Reports rhinorrhea and sore throat Cardiovascular Cardiovascular: Denies chest pain Respiratory/Chest Respiratory/Chest: Reports cough and dyspnea Gastrointestinal Gastrointestinal: Reports nausea; Denies abdominal pain, diarrhea or vomiting Genitourinary Genitourinary ED: Denies dysuria Musculoskeletal Musculoskeletal: Reports myalgias Integumentary Denies rash Neurologic Neurologic: Reports headache(s) Hematologic/Lymphatic Hematologic/Lymphatic: Denies easy bleeding or easy bruising EXAM Physical Exam Const Vital Signs: 04/01/22 22:48 04/01/22 23:41 04/02/22 00:26 Temperature 98.0 F Temperature Source Temporal Pulse Rate 95 87 Respiratory Rate 16 18 Respiratory Effort Normal Non-Labored Blood Pressure 127/80 H 124/60 H Blood Pressure Mean 95 Pulse Ox 97 97 Oxygen Delivery Method Room Air Positive well nourished, well developed and obese General Appearance ED: well developed Nutritional Appearance: obese HEENT Reports moist mucous membranes HEENT Narrative: Nasal mucosa is hyperemic and boggy with enlarged inferior nasal turbinates. There is cobblestoning the posterior pharynx consistent with sinus drainage but no airway edema or compromise. Bilateral TMs are retracted but show no secondary changes to suggest infection Eyes PERRL and EOMs intact bilaterally Neck supple Neck Narrative: Positive anterior cervical lymphadenopathy noted Resp normal respiratory effort and clear to auscultation bilaterally Cardio regular rate and regular rhythm GI normal to inspection, nondistended, normoactive bowel sounds, non-tender, non- distended and no masses Auscultation: normoactive bowel sounds Palpation: soft Extremity normal to inspection Extremity Narrative: No asymmetric edema no pitting edema negative Homans' sign bilaterally Neuro oriented x3 and CN's II-XII intact bilaterally Sensorium / Orientation: alert Psych mental status grossly normal Skin no rashes or lesions noted MDM MDM MDM Narrative Medical decision making narrative: Patient presented to the ER no acute respiratory distress. Her constellation of symptoms are consistent with a viral infection. Secondary to his COVID influenza swab will be obtained as well as a chest x-ray. Chest x-ray reveals no acute infiltrate but influenza swab is positive consistent with her symptoms. At this time as she is not in respiratory distress or requiring submental oxygen she will be given symptomatic medications and discharged home. Radiography Diagnostic Testing: Clinical Impression(s) from Imaging Studies Chest X-Ray 04/01/22 23:35 IMPRESSION: No radiographic evidence of acute cardiopulmonary disease. Electronically Signed: Liliana Henderson MD at 0:14 EST , Chest x-ray as interpreted by the emergency medicine physician reveals no acute infiltrate pneumothorax or pleural effusion Discharge Plan Triage Chief Complaint: General Illness ED Provider: Mehran Burgos Dx/Rx/DC Orders Clinical Impression: Influenza A, HTN (hypertension), Diabetes Instructions: ED Influenza (Adult) Prescriptions: New oseltamivir [Tamiflu] 75 mg capsule 75 mg PO BID 5 Days Qty: 10 0RF prednisone 20 mg tablet 40 mg PO DAILY 5 Days Qty: 10 0RF promethazine-codeine 6.25-10 mg/5 mL syrup 5 ml PO 4X/DAY PRN PRN (Reason: cough) 7 Days Qty: 140 0RF No Action insulin glargine 100 UNIT/ML insulin pen 30 unit SQ QHS metformin 500 MG tablet 1,000 mg PO DAILY Label Comments: TAKE 1 TABLET TWICE DAILY WITH meals carvedilol 3.125 MG tablet 6.25 mg PO DAILY sulfamethoxazole-trimethoprim [Bactrim DS] 800-160 mg tablet 1 tab PO Q12H Qty: 14 0RF cephalexin [cephalexin] 500 MG capsule 500 mg PO Q6 Qty: 28 0RF ibuprofen 600 MG tablet 600 mg PO 4X/DAY PRN (Reason: Pain Or Fever) Qty: 20 0RF doxycycline hyclate 100 mg capsule 100 mg PO BID 7 Days Qty: 14 0RF Primary Care Provider: Eldon Hernandez Referrals: Eldon Hernandez MD [Primary Care Provider] - Activity Restrictions/Additional Instructions: You have influenza A which is a viral infection and will last on average 7 days and can go as long as 10 days. Take medication as directed to help control symptoms and return to the ER should you have any further concerns Disposition Disposition: Home, Self Care Discharge Date/Time: 04/02/22 00:27
[2022-04-02 00:26] VITALS: BP 124/60; PULSE 87; RESP 18; O2SAT 97
== END 2022-04-02 00:27 | disposition home or self-care (01) ==
PROVIDERS: Emergency Provider Emergency Medicine; PCP Family Medicine; Visit Provider Emergency Medicine
DX: J10.1 Influenza due to other identified influenza virus with other respiratory manifestations (principal); E11.9 Type 2 diabetes mellitus without complications; I10 Essential (primary) hypertension; L93.2 Other local lupus erythematosus; F17.210 Nicotine dependence, cigarettes, uncomplicated
CPT/HCPCS: 71046; 87428; 99283

== ENCOUNTER 2022-04-07 10:54 | Inpatient (IN) | payer MEDICAID, SELFPAY ==
[2022-04-07] VITALS (11 sets, daily range): BP systolic 108–153; BP diastolic 66–88; PULSE 80–135; RESP 16–26; TEMP 36–37.3; O2SAT 92–95; BMI 31.7; BMI 33.1
--- NOTE | 2022-04-07 11:23 | EKG12_ITS ---
Test Reason : SOB Blood Pressure : / mmHG Vent. Rate : 127 BPM Atrial Rate : 127 BPM P-R Int : 136 ms QRS Dur : 086 ms QT Int : 294 ms P-R-T Axes : 050 066 028 degrees QTc Int : 427 ms Sinus tachycardia Possible Left atrial enlargement Borderline ECG Confirmed by HA MALDONADO, ALEJANDRA ([id number]), editorial specialist KELSEY CARRERA ([id number]) on 04/09/2022 10:38:44 AM Referred By: Confirmed By:BHARGAVI BONNER MD
--- NOTE | 2022-04-07 11:24 | ED.VIS.DYS ---
HPI History of Present Illness Chief Complaint: Shortness of Breath Narrative Narrative: Patient with past medical history of diabetes, lupus, anxiety, presents with shortness of breath that has been increasing. She started having upper respiratory infection type symptoms over 10 days ago on Tuesday of last week. She came to the emergency department on , approximately 7 days ago and tested positive for influenza A. She was taking [id number] medications and improving, but now noticed that she became short of breath and coughing up yellow to green sputum over the last few days. She quit smoking 5 days ago. She complains of cough and increasing shortness of breath with mild dyspnea on exertion. She denies any leg swelling. No other symptoms. Her fever has resolved. [facility] Medical History Anxiety Cellulitis of foot, right Chest pain Diabetes HTN (hypertension) Leaky heart valve Lupus Home Medications insulin glargine 100 unit/mL (3 mL) subcutaneous pen 30 unit SQ QHS DM 04/29/17 [History Last Taken 04/05/22] metformin 500 mg tablet 1,000 mg PO DAILY DM 12/06/17 [History Last Taken 04/07/22] venlafaxine 37.5 mg capsule,extended release 24 hr 37.5 mg PO DAILY DEPRESSION 04/07/22 [History Last Taken 04/06/22] Allergy/AdvReac Type Severity Reaction Status Date / Time cetirizine HCl [From Zyrtec] Allergy Hives Verified 04/07/22 10:55 prochlorperazine edisylate Allergy Hives Verified 04/07/22 10:55 [From Compazine] prochlorperazine maleate Allergy Hives Verified 04/07/22 10:55 [From Compazine] acetaminophen [From Percocet] AdvReac Nausea/Vom/ Verified 04/07/22 10:55 Diarrhea oxycodone [From Percocet] AdvReac Nausea/Vom/ Verified 04/07/22 10:55 Diarrhea Family History Mother Diabetes Hypertension Father Diabetes Surgical History S/P laparoscopic cholecystectomy Social History Smoking Status: Former smoker alcohol intake: never ROS ROS ED ROS Narrative Constitutional: No fever, no chills. HEENT: No sore throat. No neck pain. No loss of vision. No rhinorrhea. Cardiovascular: No chest pain. No palpitations. No pedal edema. Respiratory: Positive cough, increasing shortness of breath. Abdominal: No abdominal pain. No nausea. No vomiting. Genitourinary: No dysuria. No hematuria. Musculoskeletal: No myalgias. No arthralgias. Neurologic: No headaches. No dizziness. No lightheadedness. Skin: No rash. No change in color. Psychiatric: No depression. No anxiety. EXAM Physical Exam Narrative Exam Narrative: Afebrile. Vital signs noted. HEENT: Normocephalic. Atraumatic. PERRL, EOMI. Neck soft and supple. No point tenderness or step off. Cardiovascular: Positive tachycardia no murmurs, rubs, or gallops appreciated. Respiratory: No tachypnea. Diffuse rhonchi with occasional expiratory wheeze Gastrointestinal: Abdomen soft, nontender, with normoactive bowel sounds. No rebound or guarding. Neurological: Awake. Alert. Nonfocal, nonlateralizing. Skin: No rash. Normal color. No pallor. Musculoskeletal: No pedal edema. Full range of motion extremities. Const Vital Signs: 04/07/22 10:55 04/07/22 12:00 Temperature 96.8 F L Temperature Source Temporal Pulse Rate 135 H 120 H Respiratory Rate 20 H 18 Respiratory Pattern Normal Blood Pressure 153/88 H Blood Pressure Mean 109 Pulse Ox 92 Oxygen Delivery Method Room Air MDM MDM MDM Narrative Medical decision making narrative: Post influenza chest x-ray will be obtained. She was administered prednisone and a DuoNeb aerosolized treatment. She was also bolused normal saline 1 L intravenously. EKG was obtained for the tachycardia. EKG interpreted by myself demonstrates sinus tachycardia at [address] changes. No STEMI. New chest x-ray interpreted by myself shows right lung lower lobe consolidation consistent with post influenza pneumonia. She was still having pain on the right side of her chest so she was administered morphine for analgesia. Given the chest x-ray findings, laboratory work was obtained. She has an elevated white count of 17.6, hemoglobin normal at 13.2, platelet count 326. Coagulation studies are negative. Sodium slightly low at 134, glucose elevated at 293 with a normal anion gap of 10. BUN and creatinine are normal. Lactic acid normal at 1.8. She was started on intravenous Levaquin. I discussed the patient with Dr. Elmore for admission. Patient is in stable condition. Lab Data Attestation: I reviewed the patient's lab results. Labs: Laboratory Results - last 24 hr 04/07/22 04/07/22 04/07/22 13:02 13:02 13:02 WBC 17.6 H RBC 4.35 Hgb 13.2 Hct 38.8 MCV 89.2 MCH 30.3 MCHC 34.0 RDW Std Deviation 42.2 RDW Coeff of Sriram 12.9 Plt Count 326 MPV 9.5 Immature Gran % (Auto) 2.700 H Neut % (Auto) 83.7 H Lymph % (Auto) 5.5 L [place] % (Auto) 7.7 Eos % (Auto) 0.1 Baso % (Auto) 0.3 Absolute Neuts (auto) 14.7 H Absolute Lymphs (auto) 0.96 Nucleated RBC % 0 PT 15.1 H INR 1.2 APTT 30.2 Sodium 134 L Potassium 3.5 Chloride 100 Carbon Dioxide 24.0 Anion Gap 10 BUN 14 Creatinine 0.62 Estim Creat Clear Calc 111.79 Est GFR (MDRD) Af Amer 135 Est GFR (MDRD) Non-Af 112 BUN/Creatinine Ratio 22.5 H Glucose 293 H Lactic Acid Calcium 8.7 Total Bilirubin 0.80 AST 20 ALT 22 Alkaline Phosphatase 144 H Total Protein 7.7 Albumin 1.9 L Globulin 5.8 H Albumin/Globulin Ratio 0.3 L 04/07/22 13:02 WBC RBC Hgb Hct MCV MCH MCHC RDW Std Deviation RDW Coeff of Sriram Plt Count MPV Immature Gran % (Auto) Neut % (Auto) Lymph % (Auto) [place] % (Auto) Eos % (Auto) Baso % (Auto) Absolute Neuts (auto) Absolute Lymphs (auto) Nucleated RBC % PT INR APTT Sodium Potassium Chloride Carbon Dioxide Anion Gap BUN Creatinine Estim Creat Clear Calc Est GFR (MDRD) Af Amer Est GFR (MDRD) Non-Af BUN/Creatinine Ratio Glucose Lactic Acid 1.8 Calcium Total Bilirubin AST ALT Alkaline Phosphatase Total Protein Albumin Globulin Albumin/Globulin Ratio Radiography Diagnostic Testing: Clinical Impression(s) from Imaging Studies Chest X-Ray 04/07/22 11:39 IMPRESSION: 1. Large volume right subpulmonic fluid causing compressive atelectasis of right lower lobe and the lateral segment of the right middle lobe, new since 04/01/2022. Superimposed pneumonia cannot be excluded. 2. Suspicious small ill-defined confluent infiltrate in the left central lung base, new since 04/01/2022. Electronically Signed: Joel Campbell MD at 12:02 [facility] , Discharge Plan Dx/Rx/DC Orders Clinical Impression: Pneumonia and influenza, Leukocytosis, Shortness of breath Disposition Disposition: Acute Care Hospital [facility] Discharge Date/Time: 04/07/22 13:37
--- NOTE | 2022-04-07 11:39 | RAD_ITS ---
EXAM: XR CHEST, 1 VIEW CLINICAL INDICATION: Shortness of breath. TECHNIQUE: Frontal view of the chest. This report was created using [employer] report generation technology. COMPARISON: 04/01/2022. FINDINGS: LUNGS AND PLEURAL SPACES: Large volume right subpulmonic fluid causing compressive atelectases of the right lower lobe in the lateral segment of the right middle lobe. Suspicious small ill-defined infiltrate in the left lung base. No pneumothorax. HEART: Unremarkable. Cardiac silhouette not enlarged. MEDIASTINUM: Central airways and mediastinal contour are unremarkable. BONES/JOINTS: Unremarkable. SOFT TISSUES: Unremarkable. RAD/Chest 1 View (Portable) IMPRESSION: 1. Large volume right subpulmonic fluid causing compressive atelectasis of right lower lobe and the lateral segment of the right middle lobe, new since 04/01/2022. Superimposed pneumonia cannot be excluded. 2. Suspicious small ill-defined confluent infiltrate in the left central lung base, new since 04/01/2022. Electronically Signed: Joel Campbell MD at 12:02 [facility] ,
[2022-04-07] MEDS: predniSONE 20 MG Tablet 60 MG PO (12:01)
[2022-04-07] MEDS: Ipratropium/Albuterol Sulfate 3 ML AMPUL.NEB INHALATION (12:01)
[2022-04-07] MEDS: 0.9% Normal Saline 1,000 ML 999 ML IV (12:04)
--- NOTE | 2022-04-07 12:56 | PCM.HP.STD ---
HPI - General General Date of Admission: 04/07/22 Date of Service: 04/07/22 Chief Complaint: shortness of breath HPI Narrative EZIO NIELSON, is a 41 F with a PMh as outlined who presents via the ED with a complaint of shortness of breath. She was diagnosed with influenza ~ 7 days ago after she came in to the ED with a complaint of shortness of breath and productive cough which had been going on for ~ 3 days prior to admission. She denies any fever, chills, chest pain, palpitations, dizziness, nausea, vomiting or diarrhea. Review of systems is otherwise negative. Vitals were blood pressure of 153/88, pulse rate of 135 respiratory rate of 20. Temperature was 96.8 Fahrenheit. She was saturating at 92% on room air. CBC and BMP have been ordered and were pending. Chest x-ray showed a large volume of right subpulmonic fluid causing compressive atelectasis of the right lower lobe and lateral segment of the right middle lobe with superimposed pneumonia which could not be excluded. He has been admitted to be managed for acute post influenza pneumonia. [facility] Medical History Anxiety Cellulitis of foot, right Chest pain Diabetes HTN (hypertension) Leaky heart valve Lupus Home Medications insulin glargine 100 unit/mL (3 mL) subcutaneous pen 30 unit SQ QHS DM 04/29/17 [History Last Taken 04/05/22] metformin 500 mg tablet 1,000 mg PO DAILY DM 12/06/17 [History Last Taken 04/07/22] venlafaxine 37.5 mg capsule,extended release 24 hr 37.5 mg PO DAILY DEPRESSION 04/07/22 [History Last Taken 04/06/22] Allergy/AdvReac Type Severity Reaction Status Date / Time cetirizine HCl [From Zyrtec] Allergy Hives Verified 04/07/22 10:55 prochlorperazine edisylate Allergy Hives Verified 04/07/22 10:55 [From Compazine] prochlorperazine maleate Allergy Hives Verified 04/07/22 10:55 [From Compazine] acetaminophen [From Percocet] AdvReac Nausea/Vom/ Verified 04/07/22 10:55 Diarrhea oxycodone [From Percocet] AdvReac Nausea/Vom/ Verified 04/07/22 10:55 Diarrhea Family History Mother Diabetes Hypertension Father Diabetes Surgical History S/P laparoscopic cholecystectomy Social History Smoking Status: Former smoker alcohol intake: never ROS Review of Systems ROS Unobtainable: Denies due to encephalopathy Constitutional Constitutional: Reports anorexia, chills, fatigue, fever(s), malaise and weakness; Denies change in weight Eyes Eyes: Denies change in vision ENT HEENT: Reports nasal congestion and nasal discharge; Denies dysphagia, headache(s), sinus pressure or sore throat Cardiovascular Cardiovascular: Reports dyspnea on exertion, palpitations and rapid heart rate; Denies chest pain, edema, lightheadedness, orthopnea, paroxysmal nocturnal dyspnea or syncope Respiratory/Chest Respiratory/Chest: Reports cough, dyspnea, excessive phlegm production, productive cough, shortness of breath at rest and shortness of breath with exertion; Denies hemoptysis or wheezing Gastrointestinal Gastrointestinal: Denies abdominal pain, constipation, diarrhea, nausea or vomiting Genitourinary Genitourinary: Denies burning urination or dysuria Musculoskeletal Musculoskeletal: Denies arthralgias Neurologic Neurologic: Denies confusion, dizziness, focal weakness, headache(s), seizures or syncope Psychiatric Psychiatric: Denies anxiety Endocrine Endocrinology: Denies change in body appearance Vital Signs Vital Signs Vital Signs: 04/07/22 10:55 Temperature 96.8 F L Temperature Source Temporal Pulse Rate 135 H Respiratory Rate 20 H Blood Pressure 153/88 H Blood Pressure Mean 109 Pulse Ox 92 Oxygen Delivery Method Room Air Weight Weight: 196 lb 9.6 oz Body Mass Index (BMI) 31.7 Physical Exam Const alert and oriented x3 General Appearance: cooperative HEENT normocephalic, head/scalp atraumatic, hearing grossly normal bilaterally and moist oral mucous membranes Mouth: oral and palatal mucosa normal Eyes PERRL, EOMs intact bilaterally and conjunctivae normal Neck no lymphadenopathy and supple Resp Resp Narrative: diminished breath sounds, especially in right lower lung burn[place], few crackles. On room air. tachypneic Cardio regular rhythm, S1 normal heart sound, S2 normal heart sound and no murmurs Cardio Narrative: tachycardic GI normal to inspection, nondistended, normoactive bowel sounds, soft to palpation, non-tender and non-distended Extremity normal to inspection, full ROM and no clubbing, cyanosis or edema Neuro oriented x3, CN's II-XII intact bilaterally, moves all extremities and no focal motor deficits Sensorium / Orientation: awake and alert Motor Exam: strength 5/5 throughout Psych affect normal Results Lab / Micro Data Result Diagrams: 04/07/22 13:02 04/07/22 13:02 Radiology Impression Chest X-Ray 04/07/22 11:39 IMPRESSION: 1. Large volume right subpulmonic fluid causing compressive atelectasis of right lower lobe and the lateral segment of the right middle lobe, new since 04/01/2022. Superimposed pneumonia cannot be excluded. 2. Suspicious small ill-defined confluent infiltrate in the left central lung base, new since 04/01/2022. Electronically Signed: Joel Campbell MD at 12:02 EST , Assessment & Plan Assessment/Plan (1) Influenza A: (2) Pneumonia and influenza: PLAN: Plan #SIRS criteria due to post influenza pneumonia admit to PCU hydrate with IVF on IV levaquin from ED; will continue titrate oxygen as needed to maintain sats>90% breathing treatment with bronchodilators CBC and BMP pending. Sputum culture. #Type 2 diabetes mellitus: On insulin sliding scale. Continue Lantus. Checks ACH S. #Hypertension: On carvedilol #History of lupus: On prednisone DVT prophylaxis: Lovenox Code status: full code Patient counseled extensively about different types of CODE STATUS including full code, DNR CCA and DNR CCA. Patient elects to be full code. Total [id number]-ah-[id number] time 17 minutes. Charges/Coding Visit Charges Inpatient E&M: 14739 Init Hosp L3 Procedures Hospitalists Procedures: 98813 Advncd Care Plan 30 Min
[2022-04-07 13:17] LABS: Absolute Lymphocyte Count 0.96 X10^3/uL (0.83-4.51); Absolute Neutrophil Count 14.7 X10^3/uL (2.0-7.7); Basophil# 0.05 X10^3/uL; Basophil% 0.3 % (0-1); Eosinophil# 0.02 X10^3/uL; Eosinophils% 0.1 % (0-5); Hematocrit 38.8 % (37-47); Hemoglobin 13.2 g/dL (12.0-15.0); Lymphocyte # 0.96 X10^3/ul (0.83-4.51); Lymphocyte % 5.5 % (19-41); Mean Corpuscular Hgb 30.3 pg (27.0-32.0); Mean Corpuscular Volume 89.2 fL (81-99); Mean Platelet Vol. 9.5 fl (6.2-12.0); Monocyte# 1.35 X10^3/uL; Monocyte% 7.7 % (0-10); NRBC Flagged by Analyzer 0 % (0-5); Neutrophil # 14.74 X10^3/uL (2.7-7.7); Neutrophil % 83.7 % (47-70); Platelet Count 326 K/mm3 (150-450); RBC Distribution Width CV 12.9 % (11.6-14.6); RBC Distribution Width SD 42.2 fl (35.1-43.9); Red Blood Count 4.35 M/mm3 (4.2-5.4); White Blood Count 17.6 K/mm3 (4.4-11.0)
[2022-04-07 13:26] LABS: International Normalized Ratio 1.2; Prothrombin Time (Protime)PT. 15.1 SECONDS (11.7-14.9)
[2022-04-07 13:28] LABS: Partial Thromboplast Time 30.2 Seconds (24.1-36.2)
[2022-04-07] MEDS: levoFLOXacin IV 750 MG/150 ML BAG 100 MG IV (13:30)
[2022-04-07] MEDS: Morphine 4 MG/ML Syringe IV (13:30)
[2022-04-07 13:32] LABS: ALB/GLOB Ratio 0.3 RATIO (0.9-2.4); AST(SGOT) 20 U/L (15-37); Alanine Aminotransfer ALT/SGPT 22 U/L (13-56); Albumin, Serum 1.9 g/dL (3.2-5.0); Alkaline Phosphatase 144 U/L (45-117); Anion Gap 10 (5-15); BUN 14 mg/dL (7-18); BUN/Creat Ratio 22.5 RATIO (10-20); Calcium,Total 8.7 mg/dL (8.5-10.1); Chloride 100 mmol/L (98-107); Creatinine, Serum 0.62 mg/dL (0.55-1.02); EST Glomerular Filtration Rate 112 mL/min (>60); Est Glom Filt Rate - Afr Amer 135 mL/min (>60); Estimated Creatinine Clearance 111.79 ml/min; Globulin 5.8 g/dL (2.2-4.2); Glucose 293 mg/dL (74-106); Potassium 3.5 mmol/L (3.5-5.1); Protein, Total 7.7 g/dL (6.4-8.2); Sodium Level 134 mmol/L (136-145)
[2022-04-07] MEDS: Ondansetron 4 MG/2 ML Vial IV (13:32)
[2022-04-07 13:41] LABS: Lactic Acid 1.8 mmol/L (0.4-1.9)
[2022-04-07] MEDS: 0.9% Normal Saline 1,000 ML 125 ML IV (15:50)
[2022-04-07] MEDS: Insulin Lispro 100 UNIT/ML INSULN.PEN SC ×2 (17:10→22:44)
[2022-04-07 18:46] LABS: Bedside Glucose 383 mg/dL (74-106)
[2022-04-07] MEDS: Ibuprofen 400 MG Tablet PO (19:39)
[2022-04-08] VITALS (21 sets, daily range): BP systolic 90–141; BP diastolic 51–93; PULSE 80–126; RESP 16–28; TEMP 36.6–37.6; O2SAT 93–97
[2022-04-08] MEDS: 0.9% Normal Saline 1,000 ML 125 ML IV ×2 (00:35→12:18)
[2022-04-08 05:28] LABS: Absolute Lymphocyte Count 1.25 X10^3/uL (0.83-4.51); Absolute Neutrophil Count 10.4 X10^3/uL (2.0-7.7); Basophil# 0.03 X10^3/uL; Basophil% 0.2 % (0-1); Hematocrit 35.5 % (37-47); Hemoglobin 12.4 g/dL (12.0-15.0); Lymphocyte # 1.25 X10^3/ul (0.83-4.51); Lymphocyte % 9.7 % (19-41); Mean Corp Hgb Conc 34.9 g/dL (32-36); Mean Corpuscular Hgb 31.1 pg (27.0-32.0); Mean Platelet Vol. 9.2 fl (6.2-12.0); Monocyte# 0.99 X10^3/uL; Monocyte% 7.7 % (0-10); NRBC Flagged by Analyzer 0 % (0-5); Neutrophil # 10.38 X10^3/uL (2.7-7.7); Platelet Count 333 K/mm3 (150-450); RBC Distribution Width SD 42.8 fl (35.1-43.9); Red Blood Count 3.99 M/mm3 (4.2-5.4); White Blood Count 12.8 K/mm3 (4.4-11.0)
[2022-04-08 05:57] LABS: Anion Gap 4 (5-15); BUN 15 mg/dL (7-18); BUN/Creat Ratio 35.3 RATIO (10-20); Calcium,Total 7.7 mg/dL (8.5-10.1); Chloride 105 mmol/L (98-107); Creatinine, Serum 0.42 mg/dL (0.55-1.02); EST Glomerular Filtration Rate 174 mL/min (>60); Est Glom Filt Rate - Afr Amer 210 mL/min (>60); Estimated Creatinine Clearance 158.62 ml/min; Glucose 255 mg/dL (74-106); Potassium 3.6 mmol/L (3.5-5.1); Sodium Level 135 mmol/L (136-145)
[2022-04-08] MEDS: Ibuprofen 400 MG Tablet PO ×2 (06:10→12:13)
[2022-04-08] MEDS: Insulin Lispro 100 UNIT/ML INSULN.PEN SC ×4 (06:13→21:28)
[2022-04-08 07:05] LABS: Bedside Glucose 223 mg/dL (74-106)
[2022-04-08 07:35] LABS: Bedside Glucose 448 mg/dL (74-106)
[2022-04-08 07:35] LABS: Bedside Glucose 468 mg/dL (74-106)
--- NOTE | 2022-04-08 08:23 | CT_ITS ---
STUDY: CTA CHEST REASON FOR EXAM: Female, 41 years old. Chest pain. RADIATION DOSAGE (If Supplied By Facility): CTDIvol = ( 12.38 ) mGy, DLP = ( 462.69 ) mGycm TECHNIQUE: The examination was performed with the intravenous administration of IV 100mL Isovue-370. Post-processing of the angiographic images was performed, with multiplanar reformation and 3D reconstruction. Individualized dose optimization techniques were used for this CT. COMPARISON: Comparison is made with prior chest radiograph dated 04/07/2022. FINDINGS: Normal enhancement of the main pulmonary artery and right and left pulmonary arteries. Normal enhancement of the bilateral peripheral pulmonary arteries. There is no demonstrated pulmonary embolism. Normal thoracic aorta and visualized great vessels. There is no demonstrated aortic dissection. Normal heart and pericardium. Normal mediastinum. Enlargement of the right hilar lymph nodes. Normal visualized trachea and bronchi. There is dense consolidation involving the lateral aspect of the right upper lobe and right middle lobe. Patchy infiltrate is also seen in the posterior aspect of the right upper lobe. Patchy infiltrates are also seen in the anterior aspect of the left upper lobe as well as in the posterior aspect of the lingular segment of the left upper lobe and posterior medial segment of the left lobe. Normal pleura. Normal chest wall structures. Normal osseous structures. Normal visualized upper abdomen. CT/CTA Chest W/WO Contrast IMPRESSION: Dense consolidation involving the lateral aspect of the right middle lobe and right lower lobe with patchy focal infiltrates in both lungs as described. Enlargement of the right hilar lymph node. Follow-up is recommended. No significant pleural effusion is seen. Electronically Signed: Jamel Zapaat MD at 9:48 EST ,
--- NOTE | 2022-04-08 11:19 | PN.HOSP_ITS ---
Subjective Subjective Patient seen and examined. SHe still complained of right sided chest pain and non productive cough. She denies fever or chills, but still feels quite weak. Review of systems is otherwise negative. She is on 3L of oxygen by nasal canula. Objective Data Objective Data Vital Signs: Vital Signs Temp Pulse Resp BP Pulse Ox O2 Del Method O2 Flow Rate 98.2 F 84 18 127/93 H 96 Nasal Cannula 3 04/08/22 06:00 04/08/22 07:38 04/08/22 06:00 04/08/22 06:00 04/08/22 07:34 04/08/22 07:34 04/08/22 07:34 Oxygen Flow Rate (L/min) 3 Oxygen Delivery Method Nasal Cannula Weight: 199 lb 1.591 oz Body Mass Index (BMI) 33.1 Intake & Output: Intake and Output for Last 24 Hours 04/06/22 04/07/22 04/08/22 23:59 23:59 23:59 Intake Total 2950 / 2950 Balance 2950 / 2950 Lab / Micro Data Result Diagrams: 04/08/22 05:04 04/08/22 05:04 Labs: Laboratory Results - last 24 hr 04/07/22 13:02: WBC 17.6 H, RBC 4.35, Hgb 13.2, Hct 38.8, MCV 89.2, MCH 30.3, MCHC 34.0, RDW Std Deviation 42.2, RDW Coeff of Sriram 12.9, Plt Count 326, MPV 9.5, Immature Gran % (Auto) 2.700 H, Neut % (Auto) 83.7 H, Lymph % (Auto) 5.5 L, [place] % (Auto) 7.7, Eos % (Auto) 0.1, Baso % (Auto) 0.3, Absolute Neuts (auto) 14.7 H, Absolute Lymphs (auto) 0.96, Nucleated RBC % 0 04/07/22 13:02: PT 15.1 H, INR 1.2, APTT 30.2 04/07/22 13:02: Sodium 134 L, Potassium 3.5, Chloride 100, Carbon Dioxide 24.0, Anion Gap 10, BUN 14, Creatinine 0.62, Estim Creat Clear Calc 111.79, Est GFR (MDRD) Af Amer 135, Est GFR (MDRD) Non-Af 112, BUN/Creatinine Ratio 22.5 H, Glucose 293 H, Calcium 8.7, Total Bilirubin 0.80, AST 20, ALT 22, Alkaline Phosphatase 144 H, Total Protein 7.7, Albumin 1.9 L, Globulin 5.8 H, Albumin /Globulin Ratio 0.3 L 04/07/22 13:02: Lactic Acid 1.8 04/07/22 17:01: POC Glucose 383 H 04/07/22 22:43: POC Glucose 468 H* 04/07/22 22:46: POC Glucose 448 H 04/08/22 05:04: WBC 12.8 H, RBC 3.99 L, Hgb 12.4, Hct 35.5 L, MCV 89.0, MCH 31. 1, MCHC 34.9, RDW Std Deviation 42.8, RDW Coeff of Sriram 13.0, Plt Count 333, MPV 9.2, Immature Gran % (Auto) 1.400 H, Neut % (Auto) 81.0 H, Lymph % (Auto) 9.7 L, [place] % (Auto) 7.7, Eos % (Auto) 0.0, Baso % (Auto) 0.2, Absolute Neuts (auto) 10.4 H, Absolute Lymphs (auto) 1.25, Nucleated RBC % 0 04/08/22 05:04: Sodium 135 L, Potassium 3.6, Chloride 105, Carbon Dioxide 26.0, Anion Gap 4 L, BUN 15, Creatinine 0.42 L, Estim Creat Clear Calc 158.62, Est GFR (MDRD) Af Amer 210, Est GFR (MDRD) Non-Af 174, BUN/Creatinine Ratio 35.3 H, Glucose 255 H, Calcium 7.7 L 04/08/22 06:13: POC Glucose 223 H Radiography Diagnostic Testing: Radiology Impression Chest X-Ray 04/07/22 11:39 IMPRESSION: 1. Large volume right subpulmonic fluid causing compressive atelectasis of right lower lobe and the lateral segment of the right middle lobe, new since 04/01/2022. Superimposed pneumonia cannot be excluded. 2. Suspicious small ill-defined confluent infiltrate in the left central lung base, new since 04/01/2022. Electronically Signed: Joel Campbell MD at 12:02 EST , Chest CTA 04/08/22 08:23 IMPRESSION: Dense consolidation involving the lateral aspect of the right middle lobe and right lower lobe with patchy focal infiltrates in both lungs as described. Enlargement of the right hilar lymph node. Follow-up is recommended. No significant pleural effusion is seen. Electronically Signed: Jamel Zapata MD at 9:48 EST , Physical Exam Const alert and oriented x3 General Appearance: cooperative Orientation / Consciousness: lethargic HEENT normocephalic, head/scalp atraumatic, hearing grossly normal bilaterally and moist oral mucous membranes Head and Scalp: normocephalic Mouth: dry mucous membranes Eyes PERRL, EOMs intact bilaterally and conjunctivae normal Neck no lymphadenopathy and supple Resp Resp Narrative: diminished breath sounds, especially in right lower lung burnette, few crackles. On room air. Cardio regular rate, regular rhythm, S1 normal heart sound, S2 normal heart sound and no murmurs GI normal to inspection, nondistended, normoactive bowel sounds, soft to palpation, non-tender and non-distended Extremity normal to inspection, full ROM and no clubbing, cyanosis or edema Neuro oriented x3, CN's II-XII intact bilaterally, moves all extremities and no focal motor deficits Sensorium / Orientation: awake and alert Motor Exam: strength 5/5 throughout Psych Mood & Affect: anxious Assessment & Plan Assessment/Plan (1) Influenza A: (2) Pneumonia and influenza: PLAN: Plan #RIght post viral pneumonia * still complaining of right sided chest pain * wbc today is 12.8 * CTA chest ordered today showed no PE, but showed a dense consolidation of the lateral aspect of hte right middle lobe and right lower lobe with patchy focal infilrates in both lungs, and enlarged right hilar lymph node * will broaden antibiotics to IV vancomycin and zosyn * titrate oxygen as needed to maintain sats>90% * breathing treatment with bronchodilators * pulmonology consulted * Sputum culture. * IV morphine prn for pain * #Influenza infection * tested positive about 7 days prior to admission * out of window for tamiflu * #Type 2 diabetes mellitus: On insulin sliding scale. Continue Lantus. Checks ACH S. #Hypertension: On carvedilol #History of lupus: On prednisone #History of smoking: counseled to quit. Says she quit 5 days before admission. DVT prophylaxis: Lovenox Code status: full code * Charges/Coding Visit Charges Inpatient E&M: 63872 Subs Hosp L3
--- NOTE | 2022-04-08 11:46 | PCM.RX.CS ---
Consult Type of Consult: New start Suspected Infection: Pneumonia Labs: Sodium 135 mmol/L (136-145) L 04/08/22 05:04 Potassium 3.6 mmol/L (3.5-5.1) 04/08/22 05:04 Chloride 105 mmol/L (98-107) 04/08/22 05:04 Carbon Dioxide 26.0 mmol/L (21.0-32.0) 04/08/22 05:04 Anion Gap 4 (5-15) L 04/08/22 05:04 BUN 15 mg/dL (7-18) 04/08/22 05:04 Creatinine 0.42 mg/dL (0.55-1.02) L 04/08/22 05:04 Est GFR (MDRD) Af Amer 210 mL/min (>60) 04/08/22 05:04 Est GFR (MDRD) Non-Af 174 mL/min (>60) 04/08/22 05:04 BUN/Creatinine Ratio 35.3 RATIO (10-20) H 04/08/22 05:04 Glucose 255 mg/dL (74-106) H 04/08/22 05:04 Weight used for dosin.3 kg - Adjusted BW Pharmacy Plan for Drug Dosing: NEW START IV VANCOMYCIN Consulting Physician: Dr. Elmore Indication: Right post-viral pneumonia Goal Trough: 15-20 SrCr: 0.42 mg/dL (04/08/22) CrCl: > 100 mL/min Comments: Loading dose 2000mg x1 ordered Vancomycin Dose: 1000mg Q8H to start @ 199904/08/22 Pending Level: Vancomycin trough @ 1130 04/09/22, prior to 4th dose Pharmacy Service will continue to monitor and adjust dosing as required. Labs to be done on [date and time ordered]: Vancomycin trough @ 1130 04/09/22
[2022-04-08] MEDS: Morphine 4 MG/ML Syringe IV ×3 (12:14→21:24)
[2022-04-08] MEDS: Enoxaparin 40 MG/0.4 ML Syringe SC (12:26)
--- NOTE | 2022-04-08 12:35 | CASEMGMT ---
ABHI RODRIGUEZ Face to Face with patient for initial transition planning/care coordination assessment. RN CM introduced self and role at [facility]. Patient lying in bed, alert and oriented, boyfriend at bedside. Patient willing to participate in assessment and is able to answer all questions appropriately. Care providers, pharmacy, and demographics verified. Patient wishes to discharge home, denies need for home health at this time. Patient states he has no further needs or concerns at this time. CM to follow for discharge planning needs that may arise. PCP: Mary Specialists: none Preferred Pharmacy: [facility] Insurance: [facility] Prescription Benefit: yes Living Will/HPOA: none LNOK: father, daughter, boyfriend Living Arrangements: Patient lives with daughter and boyfriend in a 2 story apartment. Patient states she is independent and able to ambulate stairs. Transportation: sister, [employer] DME/HHC: Patient has cpap at home. No previous HHC. Will monitor patient for home oxygen at discharge Disposition Plan: Patient to discharge home with family support and follow-up plans in place. Gloria MAHAN, RN, CM
--- NOTE | 2022-04-08 12:43 | CON.PCM.CC_ITS ---
Assessment & Plan Assessment/Plan (1) Pneumonia and influenza: PLAN: Plan RECOMMENDATIONS: 1. Wean supplemental oxygen to maintain saturations at or above 90%. 2. Check MRSA screen. 3. Check strep and urine Legionella antigens. 4. Continue broad-spectrum antimicrobials, pending finalized infectious work- up. 5. Encourage incentive spirometer use and mobilize patient as tolerated. IMPRESSIONS: 1. Community acquired pneumonia and associated hypoxia The patient was diagnosed with influenza approximately 1 week ago and went on to develop worsening symptoms including a productive cough. Subsequent chest imaging demonstrated dense consolidation in the right middle and lower lobes. The patient has been placed on empiric broad-spectrum antimicrobials, pending infectious work-up. She remained stable from a respiratory perspective on supplemental oxygen. I would recommend that we encourage incentive spirometer use and mobilize patient as tolerated. 2. Tobacco dependency, currently in remission The patient does have an approximate [id number] smoking history, but reported that she quit 1 week ago. Her baseline lung function is not known. However, as needed bronchodilators can be initiated while the patient is admitted to the hospital. 3. History of SLE/diabetes mellitus/hypertension Complicates care, management, recovery and prognosis. Continue home medications as indicated. This note was generated with [employer] dictation software. It may contain incorrect words, spelling, and punctuation that were not noted in checking the note before signing. HPI Consult Data Date of Consult: 04/08/22 HPI Narrative Reason for Consultation: Influenza HPI Narrative: The patient is a 41-year-old female, with a history as outlined below, who presented to the emergency department on April 07 with progressive shortness of breath. The patient had been evaluated in the emergency department last week on April 01 with a generalized illness and subsequently tested positive for influenza at that time. The patient then went on to notice that her cough became productive of yellow to green sputum. The patient does have an approximate [id number] smoking history, having quit completely 1 week ago. She does not utilize bronchodilators at her baseline, nor does she have a baseline supplemental oxygen requirement. She does report ongoing shortness of breath, productive cough and generalized malaise. On presentation to the emergency department, the patient was noted to be afebril e but was tachycardic and tachypneic. Initial laboratory evaluation revealed a white blood cell count of 17,000. Chemistry profile was unrevealing. A CTA chest was completed which showed no evidence for pulmonary embolism. However, there was significant consolidation in the peripheral aspect of the right middle lobe and right lower lobe. The patient was admitted to the progressive care unit and placed on supplemental IV fluid hydration and broad-spectrum antimicrobials with Zosyn and vancomycin. The patient remains on a stable amount of supplemental oxygen at 3 L/min via nasal cannula. FORMERLY [facility] Medical History Anxiety Cellulitis of foot, right Chest pain Diabetes HTN (hypertension) Leaky heart valve Lupus Home Medications insulin glargine 100 unit/mL (3 mL) subcutaneous pen 30 unit SQ QHS DM 04/29/17 [History Last Taken 04/05/22] metformin 500 mg tablet 1,000 mg PO DAILY DM 12/06/17 [History Last Taken 04/07/22] venlafaxine 37.5 mg capsule,extended release 24 hr 37.5 mg PO DAILY DEPRESSION 04/07/22 [History Last Taken 04/06/22] Allergy/AdvReac Type Severity Reaction Status Date / Time cetirizine HCl [From Zyrtec] Allergy Hives Verified 04/07/22 10:55 prochlorperazine edisylate Allergy Hives Verified 04/07/22 10:55 [From Compazine] prochlorperazine maleate Allergy Hives Verified 04/07/22 10:55 [From Compazine] acetaminophen [From Percocet] AdvReac Nausea/Vom/ Verified 04/07/22 10:55 Diarrhea oxycodone [From Percocet] AdvReac Nausea/Vom/ Verified 04/07/22 10:55 Diarrhea Family History Mother Diabetes Hypertension Father Diabetes Surgical History S/P laparoscopic cholecystectomy Social History Smoking Status: Former smoker alcohol intake: never ROS ROS Narrative 10 systems were reviewed with pertinent positives as noted in the HPI above. Physical Exam Const alert and no apparent distress General Appearance: cooperative Nutritional Appearance: obese HEENT normocephalic, head/scalp atraumatic and moist oral mucous membranes Eyes PERRL, EOMs intact bilaterally and conjunctivae normal Neck supple General: trachea midline Chest inspection of chest normal Resp normal respiratory effort Auscultation: diminished lung sounds Cardio regular rate and regular rhythm GI normal to inspection, nondistended, normoactive bowel sounds Extremity no clubbing, cyanosis or edema Skin no rashes or lesions noted Neuro oriented x3, CN's II-XII intact bilaterally, moves all extremities and no focal motor deficits Psych cooperative and affect normal Lab / Micro Data Result Diagrams: 04/08/22 05:04 04/08/22 05:04 Labs: Laboratory Results - last 24 hr 04/07/22 13:02: WBC 17.6 H, RBC 4.35, Hgb 13.2, Hct 38.8, MCV 89.2, MCH 30.3, MCHC 34.0, RDW Std Deviation 42.2, RDW Coeff of Sriram 12.9, Plt Count 326, MPV 9.5, Immature Gran % (Auto) 2.700 H, Neut % (Auto) 83.7 H, Lymph % (Auto) 5.5 L, Swisher % (Auto) 7.7, Eos % (Auto) 0.1, Baso % (Auto) 0.3, Absolute Neuts (auto) 14.7 H, Absolute Lymphs (auto) 0.96, Nucleated RBC % 0 04/07/22 13:02: PT 15.1 H, INR 1.2, APTT 30.2 04/07/22 13:02: Sodium 134 L, Potassium 3.5, Chloride 100, Carbon Dioxide 24.0, Anion Gap 10, BUN 14, Creatinine 0.62, Estim Creat Clear Calc 111.79, Est GFR (MDRD) Af Amer 135, Est GFR (MDRD) Non-Af 112, BUN/Creatinine Ratio 22.5 H, Glucose 293 H, Calcium 8.7, Total Bilirubin 0.80, AST 20, ALT 22, Alkaline Phosphatase 144 H, Total Protein 7.7, Albumin 1.9 L, Globulin 5.8 H, Albumin/Globulin Ratio 0.3 L 04/07/22 13:02: Lactic Acid 1.8 04/07/22 17:01: POC Glucose 383 H 04/07/22 22:43: POC Glucose 468 H* 04/07/22 22:46: POC Glucose 448 H 04/08/22 05:04: WBC 12.8 H, RBC 3.99 L, Hgb 12.4, Hct 35.5 L, MCV 89.0, MCH 31.1, MCHC 34.9, RDW Std Deviation 42.8, RDW Coeff of Sriram 13.0, Plt Count 333, MPV 9.2, Immature Gran % (Auto) 1.400 H, Neut % (Auto) 81.0 H, Lymph % (Auto) 9.7 L, Swisher % (Auto) 7.7, Eos % (Auto) 0.0, Baso % (Auto) 0.2, Absolute Neuts (a uto) 10.4 H, Absolute Lymphs (auto) 1.25, Nucleated RBC % 0 04/08/22 05:04: Sodium 135 L, Potassium 3.6, Chloride 105, Carbon Dioxide 26.0, Anion Gap 4 L, BUN 15, Creatinine 0.42 L, Estim Creat Clear Calc 158.62, Est GFR (MDRD) Af Amer 210, Est GFR (MDRD) Non-Af 174, BUN/Creatinine Ratio 35.3 H, Glucose 255 H, Calcium 7.7 L 04/08/22 06:13: POC Glucose 223 H Radiology Impression Chest CTA 04/08/22 08:23 IMPRESSION: Dense consolidation involving the lateral aspect of the right middle lobe and right lower lobe with patchy focal infiltrates in both lungs as described. Enlargement of the right hilar lymph node. Follow-up is recommended. No significant pleural effusion is seen. Electronically Signed: Jamel Zapata MD at 9:48 EST , Charges/Coding Visit Charges Inpatient E&M: 67341 Init Hosp L3
[2022-04-08 12:55] LABS: Bedside Glucose 249 mg/dL (74-106)
[2022-04-08 16:35] LABS: Bedside Glucose 348 mg/dL (74-106)
[2022-04-08 17:34] LABS: M R Staph aureus DNA By PCR POSITIVE (Negative); Probe Check PASS
[2022-04-08] MEDS: Vancomycin IV 1,000 MG/200 ML BAG 200 MG IV (19:46)
[2022-04-09] VITALS (20 sets, daily range): BP systolic 90–144; BP diastolic 52–105; PULSE 87–145; RESP 20–38; TEMP 36.7–38.1; O2SAT 2–98
[2022-04-09] MEDS: Ibuprofen 400 MG Tablet PO ×4 (01:22→21:34)
[2022-04-09 01:36] LABS: Bedside Glucose 310 mg/dL (74-106)
[2022-04-09] MEDS: Vancomycin IV 1,000 MG/200 ML BAG 200 MG IV (03:34)
[2022-04-09] MEDS: guaiFENesin 1,200 MG Tablet 1200 MG PO (03:37)
[2022-04-09] MEDS: Insulin Lispro 100 UNIT/ML INSULN.PEN SC ×4 (06:42→21:44)
[2022-04-09 06:56] LABS: Absolute Lymphocyte Count 1.69 X10^3/uL (0.83-4.51); Absolute Neutrophil Count 15.7 X10^3/uL (2.0-7.7); Basophil# 0.09 X10^3/uL; Basophil% 0.5 % (0-1); Eosinophil# 0.01 X10^3/uL; Eosinophils% 0.1 % (0-5); Hematocrit 37.4 % (37-47); Hemoglobin 12.8 g/dL (12.0-15.0); Lymphocyte # 1.69 X10^3/ul (0.83-4.51); Mean Corp Hgb Conc 34.2 g/dL (32-36); Mean Corpuscular Hgb 30.8 pg (27.0-32.0); Mean Corpuscular Volume 89.9 fL (81-99); Mean Platelet Vol. 9.4 fl (6.2-12.0); Monocyte# 1.06 X10^3/uL; Monocyte% 5.6 % (0-10); NRBC Flagged by Analyzer 0 % (0-5); Neutrophil # 15.73 X10^3/uL (2.7-7.7); Neutrophil % 83.4 % (47-70); POSITIVE MORPHOLOGY YES; Platelet Count 368 K/mm3 (150-450); RBC Distribution Width CV 13.5 % (11.6-14.6); RBC Distribution Width SD 44.3 fl (35.1-43.9); Red Blood Count 4.16 M/mm3 (4.2-5.4); White Blood Count 18.9 K/mm3 (4.4-11.0)
[2022-04-09 07:10] LABS: Differential Indicated SCAN CRITERIA MET
[2022-04-09 07:25] LABS: Bedside Glucose 294 mg/dL (74-106)
[2022-04-09 07:48] LABS: Anion Gap 6 (5-15); BUN 13 mg/dL (7-18); BUN/Creat Ratio 22.7 RATIO (10-20); Calcium,Total 7.9 mg/dL (8.5-10.1); Chloride 104 mmol/L (98-107); Creatinine, Serum 0.57 mg/dL (0.55-1.02); EST Glomerular Filtration Rate 123 mL/min (>60); Est Glom Filt Rate - Afr Amer 149 mL/min (>60); Estimated Creatinine Clearance 116.88 ml/min; Glucose 303 mg/dL (74-106); Potassium 3.6 mmol/L (3.5-5.1); Sodium Level 134 mmol/L (136-145)
[2022-04-09] MEDS: Enoxaparin 40 MG/0.4 ML Syringe SC (08:09)
--- NOTE | 2022-04-09 10:18 | PN.HOSP_ITS ---
Subjective Subjective Patient seen and examined. She still says she feels unwell. She denies any fever, chills, but is still coughing. She still has the right sided chest pain with breathing, but says it is getting better. REview of systems is otherwise negative. Objective Data Objective Data Vital Signs: Vital Signs Temp Pulse Resp BP Pulse Ox O2 Del Method O2 Flow Rate 98.0 F 93 28 H 112/72 97 Nasal Cannula 2 04/09/22 08:43 04/09/22 08:43 04/09/22 08:43 04/09/22 08:43 04/09/22 08:43 04/09/22 08:43 04/09/22 08:43 Oxygen Flow Rate (L/min) 2 Oxygen Delivery Method Nasal Cannula Weight: 199 lb 1.591 oz Body Mass Index (BMI) 33.1 Intake & Output: Intake and Output for Last 24 Hours 04/07/22 04/08/22 04/09/22 23:59 23:59 23:59 Intake Total 2950 / 2950 2792.08 / 2792.08 1281.25 / 1281.25 Balance 2950 / 2950 2792.08 / 2792.08 1281.25 / 1281.25 Lab / Micro Data Result Diagrams: 04/09/22 06:20 04/09/22 06:20 Labs: Laboratory Results - last 24 hr 04/08/22 12:25: POC Glucose 249 H 04/08/22 14:45: MRSA (PCR) POSITIVE H 04/08/22 16:12: POC Glucose 348 H 04/08/22 21:28: POC Glucose 310 H 04/09/22 06:20: WBC 18.9 H, RBC 4.16 L, Hgb 12.8, Hct 37.4, MCV 89.9, MCH 30.8, MCHC 34.2, RDW Std Deviation 44.3 H, RDW Coeff of Sriram 13.5, Plt Count 368, MPV 9.4, Immature Gran % (Auto) 1.400 H, Neut % (Auto) 83.4 H, Lymph % (Auto) 9.0 L, [place]wood % (Auto) 5.6, Eos % (Auto) 0.1, Baso % (Auto) 0.5, Absolute Neuts (auto) 15.7 H, Absolute Lymphs (auto) 1.69, Nucleated RBC % 0 04/09/22 06:20: Sodium 134 L, Potassium 3.6, Chloride 104, Carbon Dioxide 24.0, Anion Gap 6, BUN 13, Creatinine 0.57, Estim Creat Clear Calc 116.88, Est GFR (MDRD) Af Amer 149, Est GFR (MDRD) Non-Af 123, BUN/Creatinine Ratio 22.7 H, Glucose 303 H, Calcium 7.9 L 04/09/22 06:41: POC Glucose 294 H Micro: Microbiology 04/07/22 13:06 Blood Culture (Wb) - Anticubital Right Blood Culture - Preliminary 04/08/22 15:15 Urine, Clean Catch Legionella Antigen - Final 04/08/22 15:15 Urine, Clean Catch Streptococcus pneumoniae Antigen (M - Final Physical Exam Const alert and oriented x3 General Appearance: cooperative HEENT normocephalic, head/scalp atraumatic, hearing grossly normal bilaterally and moist oral mucous membranes Head and Scalp: normocephalic Mouth: oral and palatal mucosa normal Eyes PERRL, EOMs intact bilaterally and conjunctivae normal Neck no lymphadenopathy and supple Resp Resp Narrative: diminished breath sounds, especially in right lower lung burn[place], few crackles. On room air. Cardio regular rate, regular rhythm, S1 normal heart sound, S2 normal heart sound and no murmurs GI normal to inspection, nondistended, normoactive bowel sounds, soft to palpation, non-tender and non-distended Extremity normal to inspection, full ROM and no clubbing, cyanosis or edema Neuro oriented x3, CN's II-XII intact bilaterally, moves all extremities and no focal motor deficits Sensorium / Orientation: awake and alert Motor Exam: strength 5/5 throughout Psych affect normal Assessment & Plan Assessment/Plan (1) Influenza A: (2) Pneumonia and influenza: PLAN: Plan #RIght post viral MRSA pneumonia * wbc today is up to 18.9 * remains tachypneic * CTA chest ordered showed no PE, but showed a dense consolidation of the lateral aspect of the right middle lobe and right lower lobe with patchy focal infilrates in both lungs, and enlarged right hilar lymph node * on IV vancomycin and zosyn * MRSA PCR is positive * blood cultures positive for gram positive cocci; await speciation * titrate oxygen as needed to maintain sats>90% * breathing treatment with bronchodilators * pulmonology on board * Sputum culture pending * IV morphine prn for pain * #Influenza infection * tested positive about 7 days prior to admission * out of window for tamiflu * #Type 2 diabetes mellitus: On insulin sliding scale. On Lantus 30 units qhs. Checks ACHS. #Hypertension: On carvedilol #History of lupus: On prednisone #History of smoking: counseled to quit. Says she quit 5 days before admission. DVT prophylaxis: Lovenox Code status: full code * Charges/Coding Visit Charges Inpatient E&M: 37030 Subs Hosp L3
[2022-04-09 11:40] LABS: Bedside Glucose 315 mg/dL (74-106)
[2022-04-09 12:32] LABS: Vancomycin, Trough Level 7.4 ug/mL (5.0-15.0)
--- NOTE | 2022-04-09 12:36 | ECHOD_ITS ---
Reason For Study: CONCERN FOR ENDOCARDITIS Procedure This was a 2D Doppler, Color Flow transthoracic echocardiogram. Exam performed portable in patient room. Left Ventricle Normal left ventricle. The estimated ejection fraction is 55-60 %. Right Ventricle Normal right ventricle. The right ventricle is normal in size, function, and thickness. Atria Normal left atrium. Normal right atrium. Intact atrial septum. Mitral Valve The mitral valve chordae are thickened and/or calcified. Tricuspid Valve Normal tricuspid valve. Mild tricuspid valve insufficiency. Aortic Valve Normal aortic valve. Pulmonic Valve The pulmonic valve is not well visualized. Great Vessels Normal aortic root. Pericardium/Pleural No pericardial effusion. Medication Performed a rapid injection of agitated mix of 9 cc saline and 1cc air to assess for atrial septal defect. MMode/2D Measurements & Calculations LVIDd: 4.8 cm IVSd: 0.97 cm Ao root diam: 2.6 cm LVIDs: 3.4 cm LVPWd: 0.78 cm RVDd: 3.4 cm FS: 29.3 % LAV(MOD-sp4): 56.5 ml LVAd ap4: 21.2 cm2 SV(MOD-sp4): 30.7 ml LVLd ap4: 6.9 cm EDV(MOD-sp4): 52.4 ml EDV(sp4-el): 55.2 ml LVAs ap4: 12.0 cm2 LVLs ap4: 5.4 cm ESV(MOD-sp4): 21.7 ml ESV(sp4-el): 22.5 ml EF(MOD-sp4): 58.6 % EF(sp4-el): 59.2 % SV(sp4-el): 32.7 ml LA A4 area: 19.7 cm2 LA dimension(2D): 4.6 cm RA A4 area: 15.0 cm2 Time Measurements MV dec time: 0.19 sec Doppler Measurements & Calculations MV E max jean marie: 93.7 cm/sec Lat Peak E' Jean Marie: 15.5 cm/sec Med Peak E' Jean Marie: 12.7 cm/sec MV A max jean marie: 75.8 cm/sec E/E' lat: 6.0 E/E' med: 7.4 MV E/A: 1.2 MV V2 max: 102.9 cm/sec MV dec slope: 490.3 cm/sec2 Ao V2 max: 145.6 cm/sec MV max P.3 mmHg Ao max P.5 mmHg MV V2 mean: 71.9 cm/sec Ao V2 mean: 97.6 cm/sec MV mean P.3 mmHg Ao mean P.4 mmHg MV V2 VTI: 24.6 cm Ao V2 VTI: 27.0 cm AV (velocity ratio): 0.75 LV V1 max: 102.8 cm/sec MR max jean marie: 466.0 cm/sec PA V2 max: 134.5 cm/sec LV V1 max P.2 mmHg MR max P.9 mmHg PA V2 mean: 100.9 cm/sec LV V1 mean P.4 mmHg LV V1 mean: 74.0 cm/sec LV V1 VTI: 20.2 cm TR max jean marie: 293.8 cm/sec TR max P.6 mmHg ECHO/Echo Complete Interpretation Summary The estimated ejection fraction is 55-60 %. If clinically warranted consider FRIDA to evaluate or Valvular Vegetation/MV Ordering Physician: Cassie Elmore Performed By: Britta Montana RCS
[2022-04-09] MEDS: Morphine 4 MG/ML Syringe IV ×2 (14:07→21:16)
--- NOTE | 2022-04-09 14:21 | PCM.RX.CS ---
Consult Pharmacy has been consulted to manage selected antiobiotic: Vancomycin Type of Consult: Follow-up Suspected Infection: Pneumonia Prior Doses of Antibiotics Received/Current Regimen: 1 GM IV Q8H Labs: Sodium 134 mmol/L (136-145) L 04/09/22 06:20 Potassium 3.6 mmol/L (3.5-5.1) 04/09/22 06:20 Chloride 104 mmol/L (98-107) 04/09/22 06:20 Carbon Dioxide 24.0 mmol/L (21.0-32.0) 04/09/22 06:20 Anion Gap 6 (5-15) 04/09/22 06:20 BUN 13 mg/dL (7-18) 04/09/22 06:20 Creatinine 0.57 mg/dL (0.55-1.02) 04/09/22 06:20 Est GFR (MDRD) Af Amer 149 mL/min (>60) 04/09/22 06:20 Est GFR (MDRD) Non-Af 123 mL/min (>60) 04/09/22 06:20 BUN/Creatinine Ratio 22.7 RATIO (10-20) H 04/09/22 06:20 Glucose 303 mg/dL (74-106) H 04/09/22 06:20 Vancomycin Trough 7.4 ug/mL (5.0-15.0) 04/09/22 11:40 Microbiology: Microbiology 04/08/22 14:54 Sputum, Expectorated/Coughed Gram Stain - Final 04/08/22 14:54 Sputum, Expectorated/Coughed Respiratory Culture - Preliminary Staphylococcus aureus 04/07/22 13:06 Blood Culture (Wb) - Anticubital Right Bacteria Detection (PCR) - Final 04/07/22 13:06 Blood Culture (Wb) - Anticubital Right Blood Culture - Preliminary 04/07/22 15:15 Urine, Clean Catch Urine Culture - Preliminary Culture exhibits no growth. 04/08/22 15:15 Urine, Clean Catch Legionella Antigen - Final 04/08/22 15:15 Urine, Clean Catch Streptococcus pneumoniae Antigen (M - Final Weight used for dosin.3 kg Estimated Creatinine Clearance: >100ml/min Goal Trough: 15-20 mcg/mL Pharmacy Plan for Drug Dosing: Trough today was 7.4 and below therapeutic range of 15-20mcg/ml. Will increase dose to 1500mg iv q8h. New trough level ordered for 04.10.22. Pharmacy Service will continue to monitor and adjust dosing as required. Follow-Up Labs: Trough Vancomycin - 04.10.22 @1430 before 1500 dose
[2022-04-09 16:26] LABS: Bedside Glucose 247 mg/dL (74-106)
--- NOTE | 2022-04-09 17:44 | PN.CC_ITS ---
Assessment & Plan Assessment/Plan (1) Community acquired pneumonia due to methicillin resistant Staphylococcus aureus (MRSA): PLAN: This is a post influenza complication, developed into PRSA pneumonia. Patient continues on vancomycin, may be developing red man syndrome. Will monitor closely to see if this will require a change to linezolid or daptomycin. Although the patient has dense bilobar consolidation in the right middle and r ight lower lobes, there is no effusion on CT scan therefore the thoracentesis and chest x-ray are not needed at this time, but could easily develop in the next several days. - Recommend chest x-rays every day to every other day to monitor for effusion; due to the dense infiltrate this may actually need a low-dose CT scan to follow, and will obtain 1 if her temperature and white count go up. -Continued ID input for antibiotic adjustments as needed (2) Acute respiratory failure with hypoxemia: PLAN: Stable on 2 L/min. Able to walk to the bathroom without difficulty. - Titrate O2 as needed PLAN: Plan Pulmonary will continue to follow, please call if further input is needed. Subjective Subjective Breathing is about the same to a little better. T-max is decreasing, today 99.6. Respiratory is stable on 2 L oxygen. She complains of pleurisy in her right lateral chest and back, cough is minimally productive and nonpurulent. Objective Data Objective Data Labs and chest x-ray were reviewed, spoke with patient and her at bedside today. Sputum cultures growing staph aureus, and the nasal swab was MRSA positive, this is likely a MRSA staph pneumonia. CT chest yesterday showed dense consolidation of the right middle lobe and right lower lobe, but no pleural effusion. (Note that report of chest x-ray the day before stated large loculated effusion, which was proven not to be the case on CT scan). Vital Signs: Vital Signs Temp Pulse Resp BP Pulse Ox O2 Del Method O2 Flow Rate 98.3 F 96 20 H 102/60 94 Nasal Cannula 2 04/09/22 16:09 04/09/22 16:09 04/09/22 16:09 04/09/22 16:09 04/09/22 16:09 04/09/22 16:09 04/09/22 16:09 Oxygen Flow Rate (L/min) 2 Oxygen Delivery Method Nasal Cannula Weight: 199 lb 1.591 oz Body Mass Index (BMI) 33.1 Intake & Output: Intake and Output for Last 24 Hours 04/07/22 04/08/22 04/09/22 23:59 23:59 23:59 Intake Total 2950 / 2950 2792.08 / 2792.08 1801.25 / 1801.25 Balance 2950 / 2950 2792.08 / 2792.08 1801.25 / 1801.25 Lab / Micro Data Attestation: I reviewed the patient's lab results. Result Diagrams: 04/09/22 06:20 04/09/22 06:20 Labs: Laboratory Results - last 24 hr 04/08/22 21:28: POC Glucose 310 H 04/09/22 06:20: WBC 18.9 H, RBC 4.16 L, Hgb 12.8, Hct 37.4, MCV 89.9, MCH 30.8, MCHC 34.2, RDW Std Deviation 44.3 H, RDW Coeff of Sriram 13.5, Plt Count 368, MPV 9.4, Immature Gran % (Auto) 1.400 H, Neut % (Auto) 83.4 H, Lymph % (Auto) 9.0 L, Taliaferro % (Auto) 5.6, Eos % (Auto) 0.1, Baso % (Auto) 0.5, Absolute Neuts (auto) 1 5.7 H, Absolute Lymphs (auto) 1.69, Nucleated RBC % 0 04/09/22 06:20: Sodium 134 L, Potassium 3.6, Chloride 104, Carbon Dioxide 24.0, Anion Gap 6, BUN 13, Creatinine 0.57, Estim Creat Clear Calc 116.88, Est GFR (MDRD) Af Amer 149, Est GFR (MDRD) Non-Af 123, BUN/Creatinine Ratio 22.7 H, Glucose 303 H, Calcium 7.9 L 04/09/22 06:41: POC Glucose 294 H 04/09/22 10:46: POC Glucose 315 H 04/09/22 11:40: Vancomycin Trough 7.4 04/09/22 16:02: POC Glucose 247 H Micro: Microbiology 04/08/22 14:54 Sputum, Expectorated/Coughed Gram Stain - Final 04/08/22 14:54 Sputum, Expectorated/Coughed Respiratory Culture - Preliminary Staphylococcus aureus 04/07/22 13:06 Blood Culture (Wb) - Anticubital Right Bacteria Detection (PCR) - Final 04/07/22 13:06 Blood Culture (Wb) - Anticubital Right Blood Culture - Preliminary 04/07/22 15:15 Urine, Clean Catch Urine Culture - Preliminary Culture exhibits no growth. 04/08/22 15:15 Urine, Clean Catch Legionella Antigen - Final 04/08/22 15:15 Urine, Clean Catch Streptococcus pneumoniae Antigen (M - Final Radiography Diagnostic Testing: I personally reviewed her CT and chest x-rays (images and report). Physical Exam Narrative Well-developed obese, no respiratory distress. Coughed once nonproductively during visit. HEENT: Has a reddish rash on her face and skin, possibly consistent with early red man syndrome on Vanco Breathing is unlabored, sitting up in bed on 2 L of oxygen, speaking full sentences, no use of accessory muscles of respirations. Extremities have no edema or puffiness (noted I's and O's were +7.5 L since admission) Charges/Coding Visit Charges Inpatient E&M: 55699 Subs Hosp L2
[2022-04-09] MEDS: 0.9% Saline Lock 10 ML Syringe IV ×2 (21:20→23:19)
[2022-04-09 23:45] LABS: Bedside Glucose 304 mg/dL (74-106)
[2022-04-10] VITALS (22 sets, daily range): BP systolic 87–152; BP diastolic 55–78; PULSE 95–138; RESP 13–33; TEMP 36.4–38.7; O2SAT 91–100
[2022-04-10] MEDS: Morphine 4 MG/ML Syringe IV ×3 (04:52→20:22)
[2022-04-10] MEDS: 0.9% Saline Lock 10 ML Syringe IV ×4 (04:55→23:38)
[2022-04-10] MEDS: Insulin Lispro 100 UNIT/ML INSULN.PEN SC ×4 (06:35→22:17)
[2022-04-10 07:20] LABS: Bedside Glucose 203 mg/dL (74-106)
[2022-04-10 07:40] LABS: Absolute Lymphocyte Count 1.51 X10^3/uL (0.83-4.51); Absolute Neutrophil Count 17.4 X10^3/uL (2.0-7.7); Basophil# 0.08 X10^3/uL; Basophil% 0.4 % (0-1); Eosinophil# 0.03 X10^3/uL; Eosinophils% 0.1 % (0-5); Hemoglobin 13.9 g/dL (12.0-15.0); Lymphocyte # 1.51 X10^3/ul (0.83-4.51); Lymphocyte % 7.4 % (19-41); Mean Corp Hgb Conc 33.9 g/dL (32-36); Mean Corpuscular Hgb 30.3 pg (27.0-32.0); Mean Corpuscular Volume 89.5 fL (81-99); Mean Platelet Vol. 10.4 fl (6.2-12.0); Monocyte# 1.08 X10^3/uL; Monocyte% 5.3 % (0-10); NRBC Flagged by Analyzer 0 % (0-5); Neutrophil # 17.42 X10^3/uL (2.7-7.7); Neutrophil % 85.8 % (47-70); POSITIVE COUNT YES; Platelet Count 323 K/mm3 (150-450); RBC Distribution Width CV 13.4 % (11.6-14.6); RBC Distribution Width SD 43.8 fl (35.1-43.9); Red Blood Count 4.58 M/mm3 (4.2-5.4); White Blood Count 20.3 K/mm3 (4.4-11.0)
[2022-04-10 07:52] LABS: Anion Gap 9 (5-15); BUN 11 mg/dL (7-18); BUN/Creat Ratio 23.9 RATIO (10-20); Calcium,Total 7.9 mg/dL (8.5-10.1); Chloride 106 mmol/L (98-107); Creatinine, Serum 0.46 mg/dL (0.55-1.02); EST Glomerular Filtration Rate 158 mL/min (>60); Est Glom Filt Rate - Afr Amer 191 mL/min (>60); Estimated Creatinine Clearance 144.82 ml/min; Glucose 202 mg/dL (74-106); Potassium 4.1 mmol/L (3.5-5.1); Sodium Level 137 mmol/L (136-145)
[2022-04-10] MEDS: Ibuprofen 400 MG Tablet PO (09:42)
[2022-04-10] MEDS: Enoxaparin 40 MG/0.4 ML Syringe SC (09:52)
--- NOTE | 2022-04-10 09:59 | PN.HOSP_ITS ---
Subjective Subjective Patient seen and examined. She said she felt the same. She is still coughing. She is tachypneic and tachycardic as well as febrile this morning. SHe was saturating at 91% on 3L of oxygen. She is coughing but is not expectorating. wbc is up to 20.3. Review of systems is otherwise negative. Objective Data Objective Data Vital Signs: Vital Signs Temp Pulse Resp BP Pulse Ox O2 Del Method O2 Flow Rate 101.6 F H 138 H 30 H 133/55 H 91 Nasal Cannula 3 04/10/22 09:35 04/10/22 09:35 04/10/22 09:35 04/10/22 09:35 04/10/22 09:35 04/10/22 09:35 04/10/22 09:35 Oxygen Flow Rate (L/min) 3 Oxygen Delivery Method Nasal Cannula Weight: 199 lb 1.591 oz Body Mass Index (BMI) 33.1 Intake & Output: Intake and Output for Last 24 Hours 04/08/22 04/09/22 04/10/22 23:59 23:59 23:59 Intake Total 2792.08 / 2792.08 2901.67 / 2901.67 1139.58 / 1139.58 Output Total Balance 2792.08 / 2792.08 2900.67 / 2900.67 1139.58 / 1139.58 Lab / Micro Data Result Diagrams: 04/10/22 06:29 04/10/22 06:29 Labs: Laboratory Results - last 24 hr 04/09/22 10:46: POC Glucose 315 H 04/09/22 11:40: Vancomycin Trough 7.4 04/09/22 16:02: POC Glucose 247 H 04/09/22 21:26: POC Glucose 304 H 04/10/22 06:28: POC Glucose 203 H 04/10/22 06:29: WBC 20.3 H, RBC 4.58, Hgb 13.9, Hct 41.0, MCV 89.5, MCH 30.3, MCHC 33.9, RDW Std Deviation 43.8, RDW Coeff of Sriram 13.4, Plt Count 323, MPV 10.4, Immature Gran % (Auto) 1.000 H, Neut % (Auto) 85.8 H, Lymph % (Auto) 7.4 L , [place] % (Auto) 5.3, Eos % (Auto) 0.1, Baso % (Auto) 0.4, Absolute Neuts (auto) 17.4 H, Absolute Lymphs (auto) 1.51, Nucleated RBC % 0 04/10/22 06:29: Sodium 137, Potassium 4.1, Chloride 106, Carbon Dioxide 22.0, Anion Gap 9, BUN 11, Creatinine 0.46 L, Estim Creat Clear Calc 144.82, Est GFR (MDRD) Af Amer 191, Est GFR (MDRD) Non-Af 158, BUN/Creatinine Ratio 23.9 H, Glucose 202 H, Calcium 7.9 L Micro: Microbiology 04/08/22 14:54 Sputum, Expectorated/Coughed Gram Stain - Final 04/08/22 14:54 Sputum, Expectorated/Coughed Respiratory Culture - Prelimi nary Staphylococcus aureus Alpha hemolytic organism 04/07/22 13:06 Blood Culture (Wb) - Anticubital Right Bacteria Detection (PCR) - Final 04/07/22 13:06 Blood Culture (Wb) - Anticubital Right Blood Culture - Preliminary 04/07/22 15:15 Urine, Clean Catch Urine Culture - Preliminary Culture exhibits no growth. 04/08/22 15:15 Urine, Clean Catch Legionella Antigen - Final 04/08/22 15:15 Urine, Clean Catch Streptococcus pneumoniae Antigen (M - Final Physical Exam Const alert, oriented x3 and no apparent distress HEENT head/scalp atraumatic, moist oral mucous membranes and oropharynx normal Head and Scalp: normocephalic Mouth: oral and palatal mucosa normal Eyes PERRL, EOMs intact bilaterally and conjunctivae normal Neck no lymphadenopathy and supple Resp Resp Narrative: coarse crackles in right mid and lower lung burnette; no wheezes. tachypneic. On 3L of oxygen. Cardio S1 normal heart sound, S2 normal heart sound and no murmurs Cardio Narrative: tachycardic GI normal to inspection, nondistended, normoactive bowel sounds, soft to palpation and non-tender Extremity normal to inspection, full ROM and no clubbing, cyanosis or edema Neuro oriented x3, CN's II-XII intact bilaterally, moves all extremities and no focal motor deficits Sensorium / Orientation: awake and alert Motor Exam: strength 5/5 throughout Psych affect normal Assessment & Plan Assessment/Plan (1) Influenza A: (2) Pneumonia and influenza: PLAN: Plan #Sepsis due to RIght post viral MRSA? pneumonia * wbc today is up to 20.3 * very tachycardic and tachypneic and also febrile * CTA chest ordered showed no PE, but showed a dense consolidation of the lateral aspect of the right middle lobe and right lower lobe with patchy focal infiltrates in both lungs, and enlarged right hilar lymph node * on IV vancomycin and zosyn * MRSA PCR is positive * blood cultures positive for gram positive cocci; await speciation * 2D echo ordered and pending * titrate oxygen as needed to maintain sats>90% * breathing treatment with bronchodilators * pulmonology on board * IV morphine prn for pain * transfer to ICU o.a of worsening respiratory status * ABG pending #Influenza infection * tested positive about 7 days prior to admission * out of window for tamiflu * #Type 2 diabetes mellitus: On insulin sliding scale. On Lantus 30 units qhs.? Checks ACHS. #Hypertension: On carvedilol #History of lupus: On prednisone #History of smoking: counseled to quit. Says she quit 5 days before admission. DVT prophylaxis: Lovenox Code status: full code Disposition: transfer to ICU emergently. Low threshold for intubation. Charges/Coding Visit Charges Inpatient E&M: 67342 Init Hosp L3
--- NOTE | 2022-04-10 10:15 | RAD_ITS ---
EXAM: XR CHEST, 1 VIEW CLINICAL INDICATION: shortness of breath, post influenza pneumonia TECHNIQUE: Frontal view of the chest. This report was created using [employer] report generation technology. COMPARISON: 04/07/2022. FINDINGS: LUNGS AND PLEURAL SPACES: Increased large volume right subpulmonic fluid with compressive atelectasis of the right lower lobe and partial atelectasis of right middle lobe. Increased size of confluent infiltrate adjacent the left hilum and adjacent to left heart border. No pneumothorax. HEART: Unremarkable. Cardiac silhouette not enlarged. MEDIASTINUM: Central airways and mediastinal contour are unremarkable. BONES/JOINTS: Unremarkable. SOFT TISSUES: Unremarkable. TUBES, LINES AND DEVICES: Right PICC line catheter tip is in distal SVC. RAD/Chest 1 View (Portable) IMPRESSION: 1. Increased size of confluent infiltrate/pneumonia in the left hilum and in the left lower lobe adjacent to left heart border. 2. Increased size of large volume right pleural fluid with persistent atelectasis of right lower lobe and partial atelectasis of right middle lobe. 3. Interval placement of right PICC line catheter, tip is in the distal SVC. Electronically Signed: Joel Campbell MD at 10:35 EST ,
[2022-04-10 10:20] LABS: Allen Test Positive; Base Excess -5 mmol/L (-2 to +2); Bicarbonate 19.7 mmol/L (22-26); Blood Gas Specimen Type ART; O2 Delivery Device Cannula; PO2 69 mmHG (75-100); SITE L Radial; SO2 95 % (95-99); Total Carbon Dioxide 21 mmol/L; pCO2 29.2 mmHg (35-45); pH 7.44 (7.35-7.45)
[2022-04-10 12:05] LABS: Bedside Glucose 283 mg/dL (74-106)
--- NOTE | 2022-04-10 14:58 | PN.CC_ITS ---
Assessment & Plan Assessment/Plan (1) Community acquired pneumonia due to methicillin resistant Staphylococcus aureus (MRSA): PLAN: This is a post influenza complication, developed into MRSA pneumonia. Patient continues on vancomycin, may be developing red man syndrome - will follow for now Will monitor closely to see if this will require a change to linezolid or daptomycin. Although the patient has dense bilobar consolidation in the right middle and right lower lobes, there is no effusion on CT scan therefore the thoracentesis a nd chest x-ray are not needed at this time, but could easily develop in the next several days. - Recommend chest x-rays every day to every other day to monitor for effusion; due to the dense infiltrate this may actually need a low-dose CT scan to follow, and will obtain 1 if her temperature and white count go up. -Continued ID input for antibiotic adjustments as needed (2) Acute respiratory failure with hypoxemia: PLAN: Stable on 2 L/min. Able to walk to the bathroom without difficulty. - Titrate O2 as needed PLAN: Plan Pulmonary will continue to follow, please call if further input is needed. Subjective Subjective Breathing is about the same to a little better. Transferred to ICU due to tachycardia but this resolved with fever control. Objective Data Objective Data Vital Signs: Vital Signs Temp Pulse Resp BP Pulse Ox O2 Del Method O2 Flow Rate 37.0 C 98 33 H 112/67 97 Nasal Cannula 3 04/10/22 11:30 04/10/22 13:00 04/10/22 13:00 04/10/22 13:00 04/10/22 13:00 04/10/22 13:00 04/10/22 13:00 Oxygen Flow Rate (L/min) 3 Oxygen Delivery Method Nasal Cannula Weight: 90.31 kg Body Mass Index (BMI) 33.1 Intake & Output: Intake and Output for Last 24 Hours 04/08/22 04/09/22 04/10/22 23:59 23:59 23:59 Intake Total 2792.08 / 2792.08 2901.67 / 2901.67 1259.58 / 1259.58 Output Total Balance 2792.08 / 2792.08 2900.67 / 2900.67 1259.58 / 1259.58 Lab / Micro Data Result Diagrams: 04/10/22 06:29 04/10/22 06:29 Labs: Laboratory Results - last 24 hr 04/09/22 16:02: POC Glucose 247 H 04/09/22 21:26: POC Glucose 304 H 04/10/22 06:28: POC Glucose 203 H 04/10/22 06:29: WBC 20.3 H, RBC 4.58, Hgb 13.9, Hct 41.0, MCV 89.5, MCH 30.3, MCHC 33.9, RDW Std Deviation 43.8, RDW Coeff of Sriram 13.4, Plt Count 323, MPV 10.4, Immature Gran % (Auto) 1.000 H, Neut % (Auto) 85.8 H, Lymph % (Auto) 7.4 L , [place] % (Auto) 5.3, Eos % (Auto) 0.1, Baso % (Auto) 0.4, Absolute Neuts (auto) 17.4 H, Absolute Lymphs (auto) 1.51, Nucleated RBC % 0 04/10/22 06:29: Sodium 137, Potassium 4.1, Chloride 106, Carbon Dioxide 22.0, Anion Gap 9, BUN 11, Creatinine 0.46 L, Estim Creat Clear Calc 144.82, Est GFR (MDRD) Af Amer 191, Est GFR (MDRD) Non-Af 158, BUN/Creatinine Ratio 23.9 H, Glucose 202 H, Calcium 7.9 L 04/10/22 11:40: POC Glucose 283 H Micro: Microbiology 04/07/22 13:06 Blood Culture (Wb) - Anticubital Right Bacteria Detection (PCR) - Final 04/07/22 13:06 Blood Culture (Wb) - Anticubital Right Blood Culture - Preliminary Presumptive Micrococcus spp. 04/07/22 15:15 Urine, Clean Catch Urine Culture - Final Culture exhibits no growth. 04/08/22 14:54 Sputum, Expectorated/Coughed Gram Stain - Final 04/08/22 14:54 Sputum, Expectorated/Coughed Respiratory Culture - Preliminary Staphylococcus aureus Alpha hemolytic organism 04/08/22 15:15 Urine, Clean Catch Legionella Antigen - Final 04/08/22 15:15 Urine, Clean Catch Streptococcus pneumoniae Antigen (M - Final ABG Data ABG results: ABG 04/10/22 10:17 Specimen Type ART Sample Site L Radial pH 7.44 Bicarbonate Actual 19.7 L Total CO2 21 Base Excess -5 L O2 Saturation 95 ABG pCO2 29.2 L ABG pO2 69 L Hubert Test Positive O2 Delivery Device Cannula Liter Flow 3.0 Radiography Diagnostic Testing: Radiology Impression Echocardiogram 04/09/22 12:36 Interpretation Summary The estimated ejection fraction is 55-60 %. If clinically warranted consider FRIDA to evaluate or Valvular Vegetation/MV Ordering Physician: Cassie Elmore Performed By: Britta Montana RCS Chest X-Ray 04/10/22 10:15 IMPRESSION: 1. Increased size of confluent infiltrate/pneumonia in the left hilum and in the left lower lobe adjacent to left heart border. 2. Increased size of large volume right pleural fluid with persistent atelectasis of right lower lobe and partial atelectasis of right middle lobe. 3. Interval placement of right PICC line catheter, tip is in the distal SVC. Electronically Signed: Joel Campbell MD at 10:35 EST , Physical Exam Narrative Well-developed obese, no respiratory distress. Coughed once nonproductively during visit. HEENT: Has a reddish rash on her face and skin, possibly consistent with early red man syndrome on Vanco Breathing is unlabored, sitting up in bed on 2 L of oxygen, speaking full sentences, no use of accessory muscles of respirations. Extremities have no edema or puffiness (noted I's and O's were +7.5 L since admission) Charges/Coding Addendum Addendum: critical care time = 33 minutes billing code = 65376
[2022-04-10 20:50] LABS: Bedside Glucose 319 mg/dL (74-106)
[2022-04-10] MEDS: Insulin Glargine-YFGN 100 UNIT/ML Pen 30 UNIT SC (22:17)
[2022-04-10 22:35] LABS: Bedside Glucose 268 mg/dL (74-106)
[2022-04-10 23:16] LABS: Vancomycin, Trough Level 12.6 ug/mL (5.0-15.0)
[2022-04-11] VITALS (18 sets, daily range): BP systolic 97–155; BP diastolic 56–77; PULSE 83–118; RESP 20–28; TEMP 36.4–37.5; O2SAT 92–99
[2022-04-11] MEDS: Ibuprofen 400 MG Tablet PO ×3 (02:13→21:52)
--- NOTE | 2022-04-11 02:42 | PCM.RX.CS ---
Consult Pharmacy has been consulted to manage selected antiobiotic: Vancomycin Type of Consult: Follow-up Labs: Sodium 137 mmol/L (136-145) 04/10/22 06:29 Potassium 4.1 mmol/L (3.5-5.1) 04/10/22 06:29 Chloride 106 mmol/L (98-107) 04/10/22 06:29 Carbon Dioxide 22.0 mmol/L (21.0-32.0) 04/10/22 06:29 Anion Gap 9 (5-15) 04/10/22 06:29 BUN 11 mg/dL (7-18) 04/10/22 06:29 Creatinine 0.46 mg/dL (0.55-1.02) L 04/10/22 06:29 Est GFR (MDRD) Af Amer 191 mL/min (>60) 04/10/22 06:29 Est GFR (MDRD) Non-Af 158 mL/min (>60) 04/10/22 06:29 BUN/Creatinine Ratio 23.9 RATIO (10-20) H 04/10/22 06:29 Glucose 202 mg/dL (74-106) H 04/10/22 06:29 Vancomycin Trough 12.6 ug/mL (5.0-15.0) 04/10/22 22:42 Microbiology: Microbiology 04/07/22 13:06 Blood Culture (Wb) - Anticubital Right Bacteria Detection (PCR) - Final 04/07/22 13:06 Blood Culture (Wb) - Anticubital Right Blood Culture - Preliminary Presumptive Micrococcus spp. 04/07/22 15:15 Urine, Clean Catch Urine Culture - Final Culture exhibits no growth. 04/08/22 14:54 Sputum, Expectorated/Coughed Gram Stain - Final 04/08/22 14:54 Sputum, Expectorated/Coughed Respiratory Culture - Preliminary Staphylococcus aureus Alpha hemolytic organism 04/08/22 15:15 Urine, Clean Catch Legionella Antigen - Final 04/08/22 15:15 Urine, Clean Catch Streptococcus pneumoniae Antigen (M - Final Goal Trough: 15-20 mcg/mL Pharmacy Plan for Drug Dosing: Pharmacy Service will continue to monitor and adjust dosing as required. TROUGH 12.6 @ 7.5 HRS. INCREASE TO 1750 Q8H AND FOLLOW UP TROUGH PRIOR TO 4TH DOSE Follow-Up Labs: Trough Vancomycin Labs to be done on [date and time ordered]: 04/12 @ 2094
[2022-04-11] MEDS: 0.9% Saline Lock 10 ML Syringe IV (04:58)
[2022-04-11 05:09] LABS: Absolute Lymphocyte Count 1.37 X10^3/uL (0.83-4.51); Basophil# 0.04 X10^3/uL; Basophil% 0.2 % (0-1); Eosinophil# 0.04 X10^3/uL; Eosinophils% 0.2 % (0-5); Hematocrit 32.1 % (37-47); Hemoglobin 10.9 g/dL (12.0-15.0); Lymphocyte # 1.37 X10^3/ul (0.83-4.51); Lymphocyte % 7.3 % (19-41); Mean Corpuscular Hgb 30.4 pg (27.0-32.0); Mean Corpuscular Volume 89.7 fL (81-99); Mean Platelet Vol. 9.2 fl (6.2-12.0); Monocyte# 0.97 X10^3/uL; Monocyte% 5.2 % (0-10); NRBC Flagged by Analyzer 0 % (0-5); Neutrophil # 15.96 X10^3/uL (2.7-7.7); Neutrophil % 85.2 % (47-70); Platelet Count 373 K/mm3 (150-450); RBC Distribution Width CV 13.4 % (11.6-14.6); RBC Distribution Width SD 44.5 fl (35.1-43.9); Red Blood Count 3.58 M/mm3 (4.2-5.4); White Blood Count 18.7 K/mm3 (4.4-11.0)
[2022-04-11 05:25] LABS: Anion Gap 6 (5-15); BUN 9 mg/dL (7-18); BUN/Creat Ratio 20.1 RATIO (10-20); Calcium,Total 7.5 mg/dL (8.5-10.1); Chloride 105 mmol/L (98-107); Creatinine, Serum 0.45 mg/dL (0.55-1.02); EST Glomerular Filtration Rate 164 mL/min (>60); Est Glom Filt Rate - Afr Amer 198 mL/min (>60); Estimated Creatinine Clearance 148.04 ml/min; Glucose 248 mg/dL (74-106); Potassium 3.1 mmol/L (3.5-5.1); Sodium Level 137 mmol/L (136-145)
[2022-04-11] MEDS: Insulin Lispro 100 UNIT/ML INSULN.PEN SC ×4 (08:02→22:05)
[2022-04-11] MEDS: Enoxaparin 40 MG/0.4 ML Syringe SC (08:04)
[2022-04-11] MEDS: Potassium Chloride Oral Tablet 20 MEQ 40 MEQ PO (08:05)
[2022-04-11 08:30] LABS: Bedside Glucose 262 mg/dL (74-106)
--- NOTE | 2022-04-11 09:41 | PN.HOSP_ITS ---
Subjective Subjective Patient seen and examined. She is coughing, and is now expectorating significant amount of sputum. SHe denies any fever, chills, nausea, vomiting or diarrhea. Review of systems is otherwise negative.Her tachycardia and tachypnea have improved. Objective Data Objective Data Vital Signs: Vital Signs Temp Pulse Resp BP Pulse Ox O2 Del Method O2 Flow Rate 97.9 F 83 28 H 110/76 97 Nasal Cannula 2 04/11/22 09:00 04/11/22 09:00 04/11/22 09:00 04/11/22 09:00 04/11/22 09:00 04/11/22 09:00 04/11/22 09:00 Oxygen Flow Rate (L/min) 2 Oxygen Delivery Method Nasal Cannula Weight: 214 lb 11.684 oz Body Mass Index (BMI) 33.1 Intake & Output: Intake and Output for Last 24 Hours 04/09/22 04/10/22 04/11/22 23:59 23:59 23:59 Intake Total 2901.67 / 2901.67 2079.58 / 2079.58 671.75 / 671.75 Output Total Balance 2900.67 / 2900.67 2079.58 / 2079.58 671.75 / 671.75 Lab / Micro Data Result Diagrams: 04/11/22 05:00 04/11/22 05:00 Labs: Laboratory Results - last 24 hr 04/10/22 06:29: WBC 20.3 H, RBC 4.58, Hgb 13.9, Hct 41.0, MCV 89.5, MCH 30.3, MCHC 33.9, RDW Std Deviation 43.8, RDW Coeff of Sriram 13.4, Plt Count 323, MPV 10.4, Immature Gran % (Auto) 1.000 H, Neut % (Auto) 85.8 H, Lymph % (Auto) 7.4 L , [place] % (Auto) 5.3, Eos % (Auto) 0.1, Baso % (Auto) 0.4, Absolute Neuts (auto) 17.4 H, Absolute Lymphs (auto) 1.51, Nucleated RBC % 0 04/10/22 11:40: POC Glucose 283 H 04/10/22 16:33: POC Glucose 319 H 04/10/22 22:15: POC Glucose 268 H 04/10/22 22:42: Vancomycin Trough 12.6 04/11/22 05:00: WBC 18.7 H, RBC 3.58 L, Hgb 10.9 L, Hct 32.1 L, MCV 89.7, MCH 30.4, MCHC 34.0, RDW Std Deviation 44.5 H, RDW Coeff of Sriram 13.4, Plt Count 373, MPV 9.2, Immature Gran % (Auto) 1.900 H, Neut % (Auto) 85.2 H, Lymph % (Auto) 7.3 L, [place] % (Auto) 5.2, Eos % (Auto) 0.2, Baso % (Auto) 0.2, Absolute Neuts (auto) 16.0 H, Absolute Lymphs (auto) 1.37, Nucleated RBC % 0 04/11/22 05:00: Sodium 137, Potassium 3.1 L, Chloride 105, Carbon Dioxide 26.0, Anion Gap 6, BUN 9, Creatinine 0.45 L, Estim Creat Clear Calc 148.04, Est GFR (MDRD) Af Amer 198, Est GFR (MDRD) Non-Af 164, BUN/Creatinine Ratio 20.1 H, Glucose 248 H, Calcium 7.5 L 04/11/22 08:01: POC Glucose 262 H Micro: Microbiology 04/08/22 14:54 Sputum, Expectorated/Coughed Gram Stain - Final 04/08/22 14:54 Sputum, Expectorated/Coughed Respiratory Culture - Final Staphylococcus aureus Alpha Hemolytic Streptococcus 04/07/22 13:06 Blood Culture (Wb) - Anticubital Right Bacteria Detection (PCR) - Final 04/07/22 13:06 Blood Culture (Wb) - Anticubital Right Blood Culture - Preliminary Presumptive Micrococcus spp. 04/07/22 15:15 Urine, Clean Catch Urine Culture - Final Culture exhibits no growth. 04/08/22 15:15 Urine, Clean Catch Legionella Antigen - Final 04/08/22 15:15 Urine, Clean Catch Streptococcus pneumoniae Antigen (M - Final ABG Data ABG results: ABG 04/10/22 10:17 Specimen Type ART Sample Site L Radial pH 7.44 Bicarbonate Actual 19.7 L Total CO2 21 Base Excess -5 L O2 Saturation 95 ABG pCO2 29.2 L ABG pO2 69 L Hubert Test Positive O2 Delivery Device Cannula Liter Flow 3.0 Radiography Diagnostic Testing: Radiology Impression Echocardiogram 04/09/22 12:36 Interpretation Summary The estimated ejection fraction is 55-60 %. If clinically warranted consider FRIDA to evaluate or Valvular Vegetation/MV Ordering Physician: Cassie Elmore Performed By: Britta Montana RCS Chest X-Ray 04/10/22 10:15 IMPRESSION: 1. Increased size of confluent infiltrate/pneumonia in the left hilum and in the left lower lobe adjacent to left heart border. 2. Increased size of large volume right pleural fluid with persistent atelectasis of right lower lobe and partial atelectasis of right middle lobe. 3. Interval placement of right PICC line catheter, tip is in the distal SVC. Electronically Signed: Joel Campbell MD at 10:35 EST , Physical Exam Const alert, oriented x3 and no apparent distress HEENT head/scalp atraumatic, moist oral mucous membranes and oropharynx normal Head and Scalp: normocephalic Mouth: oral and palatal mucosa normal Eyes PERRL, EOMs intact bilaterally and conjunctivae normal Neck no lymphadenopathy and supple Resp Resp Narrative: coarse crackles in right mid and lower lung [place]; no wheezes. tachypnea has resolved. On 2L of oxygen. Cardio regular rate, regular rhythm, S1 normal heart sound, S2 normal heart sound and no murmurs Cardio Narrative: tachycardia has resolved. GI normal to inspection, nondistended, normoactive bowel sounds, soft to palpation and non-tender Extremity normal to inspection, full ROM and no clubbing, cyanosis or edema Neuro oriented x3, CN's II-XII intact bilaterally, moves all extremities and no focal motor deficits Sensorium / Orientation: awake and alert Motor Exam: strength 5/5 throughout Psych affect normal Assessment & Plan Assessment/Plan (1) Influenza A: (2) Pneumonia and influenza: PLAN: Plan #Sepsis due to RIght post viral MRSA? pneumonia * wbc today is down to 18 today * tachycardia and tachypnea have resolved. * remains on IV vancomycin and zosyn. * CTA chest ordered showed no PE, but showed a dense consolidation of the lateral aspect of the right middle lobe and right lower lobe with patchy focal infiltrates in both lungs, and enlarged right hilar lymph node * MRSA PCR is positive * blood cultures positive for gram positive cocci; shows presumptive Micrococcus species * 2D echo showed EF of 55-60%, with no evidence of vegetation * titrate oxygen as needed to maintain sats>90% * breathing treatment with bronchodilators * pulmonology on board * IV morphine prn for pain #Influenza infection * tested positive about 7 days prior to admission * out of window for tamiflu * #Type 2 diabetes mellitus: On insulin sliding scale. On Lantus 30 units qhs.? Checks ACHS. #Hypertension: On carvedilol #History of lupus: On prednisone #History of smoking: counseled to quit. Says she quit 5 days before admission. DVT prophylaxis: Lovenox Code status: full code Disposition:transfer out of ICU to PCU Charges/Coding Visit Charges Inpatient E&M: 22464 Subs Hosp L2
--- NOTE | 2022-04-11 10:52 | PCM.PN.INT ---
Assessment & Plan Assessment/Plan (1) Community acquired pneumonia due to methicillin resistant Staphylococcus aureus (MRSA): PLAN: This is a post influenza complication, developed into MRSA pneumonia. Patient continues on vancomycin, may be developing red man syndrome - will follow for now Will monitor closely to see if this will require a change to linezolid or daptomycin. Although the patient has dense bilobar consolidation in the right middle and right lower lobes, there is no effusion on CT scan therefore the thoracentesis and chest x-ray are not needed at this time, but could easily develop in the next several days. - Recommend chest x-rays every day to every other day to monitor for effusion; due to the dense infiltrate this may actually need a low-dose CT scan to follow, and will obtain 1 if her temperature and white count go up. -Continued ID input for antibiotic adjustments as needed (2) Acute respiratory failure with hypoxemia: PLAN: Stable on 2 L/min. Able to walk to the bathroom without difficulty. - Titrate O2 as needed PLAN: Plan Pulmonary will continue to follow, please call if further input is needed. Subjective Subjective Patient seen and examined. She is coughing, and is now expectorating significant amount of sputum. SHe denies any fever, chills, nausea, vomiting or diarrhea. Review of systems is otherwise negative.Her tachycardia and tachypnea have improved. Objective Data Objective Data Vital Signs: Vital Signs Temp Pulse Resp BP Pulse Ox O2 Del Method O2 Flow Rate 36.8 C 86 27 H 98/57 L 99 Nasal Cannula 2 04/11/22 10:00 04/11/22 10:00 04/11/22 10:00 04/11/22 10:00 04/11/22 10:00 04/11/22 10:00 04/11/22 10:00 Oxygen Flow Rate (L/min) 2 Oxygen Delivery Method Nasal Cannula Weight: 97.4 kg Body Mass Index (BMI) 33.1 Intake & Output: Intake and Output for Last 24 Hours 04/09/22 04/10/22 04/11/22 23:59 23:59 23:59 Intake Total 2901.67 / 2901.67 2079.58 / 2079.58 1206.75 / 1206.75 Output Total Balance 2900.67 / 2900.67 2079.58 / 2079.58 1206.75 / 1206.75 Lab / Micro Data Result Diagrams: 04/11/22 05:00 04/11/22 05:00 Labs: Laboratory Results - last 24 hr 04/10/22 11:40: POC Glucose 283 H 04/10/22 16:33: POC Glucose 319 H 04/10/22 22:15: POC Glucose 268 H 04/10/22 22:42: Vancomycin Trough 12.6 04/11/22 05:00: WBC 18.7 H, RBC 3.58 L, Hgb 10.9 L, Hct 32.1 L, MCV 89.7, MCH 30.4, MCHC 34.0, RDW Std Deviation 44.5 H, RDW Coeff of Sriram 13.4, Plt Count 373, MPV 9.2, Immature Gran % (Auto) 1.900 H, Neut % (Auto) 85.2 H, Lymph % (Auto) 7.3 L, [place] % (Auto) 5.2, Eos % (Auto) 0.2, Baso % (Auto) 0.2, Absolute Neuts (auto) 16.0 H, Absolute Lymphs (auto) 1.37, Nucleated RBC % 0 04/11/22 05:00: Sodium 137, Potassium 3.1 L, Chloride 105, Carbon Dioxide 26.0, Anion Gap 6, BUN 9, Creatinine 0.45 L, Estim Creat Clear Calc 148.04, Est GFR (MDRD) Af Amer 198, Est GFR (MDRD) Non-Af 164, BUN/Creatinine Ratio 20.1 H, Glucose 248 H, Calcium 7.5 L 04/11/22 08:01: POC Glucose 262 H Micro: Microbiology 04/08/22 14:54 Sputum, Expectorated/Coughed Gram Stain - Final 04/08/22 14:54 Sputum, Expectorated/Coughed Respiratory Culture - Final Staphylococcus aureus Alpha Hemolytic Streptococcus 04/07/22 13:06 Blood Culture (Wb) - Anticubital Right Bacteria Detection (PCR) - Final 04/07/22 13:06 Blood Culture (Wb) - Anticubital Right Blood Culture - Preliminary Presumptive Micrococcus spp. 04/07/22 15:15 Urine, Clean Catch Urine Culture - Final Culture exhibits no growth. 04/08/22 15:15 Urine, Clean Catch Legionella Antigen - Final 04/08/22 15:15 Urine, Clean Catch Streptococcus pneumoniae Antigen (M - Final Radiography Diagnostic Testing: Radiology Impression Echocardiogram 04/09/22 12:36 Interpretation Summary The estimated ejection fraction is 55-60 %. If clinically warranted consider FRIDA to evaluate or Valvular Vegetation/MV Ordering Physician: Cassie Elmore Performed By: Britta Montana RCS Physical Exam Narrative Well-developed obese, no respiratory distress. Coughed once nonproductively during visit. HEENT: Has a reddish rash on her face and skin, possibly consistent with early red man syndrome on Vanco Breathing is unlabored, sitting up in bed on 2 L of oxygen, speaking full sentences, no use of accessory muscles of respirations. Extremities have no edema or puffiness (noted I's and O's were +7.5 L since admission) Charges/Coding Visit Charges Inpatient E&M: 48557 Init Hosp L3
[2022-04-11] MEDS: guaiFENesin 1,200 MG Tablet 1200 MG PO (11:56)
[2022-04-11 12:20] LABS: Bedside Glucose 171 mg/dL (74-106)
[2022-04-11 17:45] LABS: Bedside Glucose 223 mg/dL (74-106)
[2022-04-11] MEDS: Benzonatate 100 MG Capsule PO (20:02)
[2022-04-11] MEDS: guaiFENesin 10 ML UDC (200MG/10ML) PO (21:51)
[2022-04-11] MEDS: Morphine 4 MG/ML Syringe IV (21:51)
[2022-04-11] MEDS: Insulin Glargine-YFGN 100 UNIT/ML Pen 30 UNIT SC (22:06)
[2022-04-12] VITALS (7 sets, daily range): BP systolic 136–147; BP diastolic 74–75; PULSE 90–106; RESP 20; TEMP 35.9–36.1; O2SAT 92–94
[2022-04-12 01:56] LABS: Bedside Glucose 228 mg/dL (74-106)
[2022-04-12] MEDS: guaiFENesin 10 ML UDC (200MG/10ML) PO ×2 (03:15→10:52)
[2022-04-12] MEDS: Ibuprofen 400 MG Tablet PO (06:13)
[2022-04-12] MEDS: Benzonatate 100 MG Capsule PO ×2 (06:13→14:28)
[2022-04-12] MEDS: 0.9% Saline Lock 10 ML Syringe IV (06:26)
[2022-04-12] MEDS: Insulin Lispro 100 UNIT/ML INSULN.PEN SC ×2 (06:32→11:26)
[2022-04-12 06:47] LABS: Absolute Neutrophil Count 10.3 X10^3/uL (2.0-7.7); Basophil# 0.03 X10^3/uL; Basophil% 0.2 % (0-1); Eosinophil# 0.09 X10^3/uL; Eosinophils% 0.7 % (0-5); Hematocrit 32.3 % (37-47); Hemoglobin 10.9 g/dL (12.0-15.0); Lymphocyte % 9.5 % (19-41); Mean Corp Hgb Conc 33.7 g/dL (32-36); Mean Corpuscular Hgb 30.1 pg (27.0-32.0); Mean Corpuscular Volume 89.2 fL (81-99); Monocyte# 0.81 X10^3/uL; Monocyte% 6.4 % (0-10); NRBC Flagged by Analyzer 0 % (0-5); Neutrophil # 10.31 X10^3/uL (2.7-7.7); Neutrophil % 81.8 % (47-70); Platelet Count 392 K/mm3 (150-450); RBC Distribution Width CV 13.7 % (11.6-14.6); RBC Distribution Width SD 44.8 fl (35.1-43.9); Red Blood Count 3.62 M/mm3 (4.2-5.4); White Blood Count 12.6 K/mm3 (4.4-11.0)
[2022-04-12 06:56] LABS: Bedside Glucose 174 mg/dL (74-106)
[2022-04-12 07:01] LABS: Anion Gap 4 (5-15); BUN 7 mg/dL (7-18); BUN/Creat Ratio 12.4 RATIO (10-20); Calcium,Total 7.6 mg/dL (8.5-10.1); Chloride 109 mmol/L (98-107); Creatinine, Serum 0.56 mg/dL (0.55-1.02); EST Glomerular Filtration Rate 126 mL/min (>60); Est Glom Filt Rate - Afr Amer 152 mL/min (>60); Estimated Creatinine Clearance 118.96 ml/min; Glucose 184 mg/dL (74-106); Potassium 3.3 mmol/L (3.5-5.1); Sodium Level 140 mmol/L (136-145)
[2022-04-12 07:03] LABS: Vancomycin, Trough Level 21.1 ug/mL (5.0-15.0)
--- NOTE | 2022-04-12 07:19 | PHA.PHARE_ITS ---
Consult Pharmacy has been consulted to manage selected antiobiotic: Vancomycin Type of Consult: Follow-up Suspected Infection: Pneumonia Labs: Sodium 140 mmol/L (136-145) 04/12/22 06:20 Potassium 3.3 mmol/L (3.5-5.1) L 04/12/22 06:20 Chloride 109 mmol/L (98-107) H 04/12/22 06:20 Carbon Dioxide 27.0 mmol/L (21.0-32.0) 04/12/22 06:20 Anion Gap 4 (5-15) L 04/12/22 06:20 BUN 7 mg/dL (7-18) 04/12/22 06:20 Creatinine 0.56 mg/dL (0.55-1.02) 04/12/22 06:20 Est GFR (MDRD) Af Amer 152 mL/min (>60) 04/12/22 06:20 Est GFR (MDRD) Non-Af 126 mL/min (>60) 04/12/22 06:20 BUN/Creatinine Ratio 12.4 RATIO (10-20) 04/12/22 06:20 Glucose 184 mg/dL (74-106) H 04/12/22 06:20 Vancomycin Trough 21.1 ug/mL (5.0-15.0) H 04/12/22 06:20 Microbiology: Microbiology 04/07/22 13:06 Blood Culture (Wb) - Anticubital Right Bacteria Detection (PCR) - Final 04/07/22 13:06 Blood Culture (Wb) - Anticubital Right Blood Culture - Prelim inary Presumptive Micrococcus spp. 04/08/22 14:54 Sputum, Expectorated/Coughed Gram Stain - Final 04/08/22 14:54 Sputum, Expectorated/Coughed Respiratory Culture - Final Staphylococcus aureus Alpha Hemolytic Streptococcus 04/07/22 15:15 Urine, Clean Catch Urine Culture - Final Culture exhibits no growth. 04/08/22 15:15 Urine, Clean Catch Legionella Antigen - Final 04/08/22 15:15 Urine, Clean Catch Streptococcus pneumoniae Antigen (M - Final Goal Trough: 15-20 mcg/mL Pharmacy Plan for Drug Dosing: VANCOMYCIN LEVEL RECEIVED Current Vancomycin Dose: 1750MG IV Q8H Number of Doses Received: 4 (3 PRIOR TO TROUGH DRAW) Vancomycin Level: 21.8 Hours Since Last Dose: 8HR Renal Function: 0.56 Renal Function Trend: STABLE Lab/Micro: (+) MRSA PNEUMONIA Vancomycin Plan/Comments: Patient had a trough drawn which resulted in a value of 21.1 (goal 15-20). The patient did have AM dose hung while trough was pending. Spoke with nursing to discontinue dose that was infusing. Patient got an estimate 33% of 1750mg AM dose. Will HOLD current dose of vancomycin and resume once trough <20. Pending Level: *RANDOM* 04/12/22 @1900 Pharmacy Service will continue to monitor and adjust dosing as required.
--- NOTE | 2022-04-12 09:47 | PN.CC_ITS ---
Assessment & Plan Assessment/Plan (1) Community acquired pneumonia due to methicillin resistant Staphylococcus aureus (MRSA): PLAN: Patient appears to be doing well from a respiratory standpoint. We will need to discuss with infectious disease on long-term antibiotic and follow-up CT scan plans. Will obtain a walking oximetry. If patient is able to ambulate on room air, likely okay to discharge from a pulmonary perspective. Patient will need to follow-up in the outpatient office in 4 to 6 weeks, ideally after CT scan. Given patient is doing well from respiratory standpoint, will sign off from a pulmonary perspective (2) Acute respiratory failure with hypoxemia: PLAN: Patient is tolerating room air well. We will obtain a walking oximetry to be sure the supplemental oxygen is not required for discharge. Patient would benefit from an outpatient pulmonary function test once stability is achieved. Subjective Subjective Patient did well overnight. No acute issues were reported. Patient subjectively feels strong enough to go home. Patient denies any current chest pain. Patient does continue to have a cough. Objective Data Objective Data Vital Signs: Vital Signs Temp Pulse Resp BP Pulse Ox O2 Del Method O2 Flow Rate 36.1 C L 97 20 H 147/74 H 92 Room Air 2 04/12/22 03:18 04/12/22 03:18 04/12/22 03:18 04/12/22 03:18 04/12/22 03:18 04/12/22 03:25 04/12/22 03:15 Oxygen Flow Rate (L/min) 2 Oxygen Delivery Method Room Air Weight: 97.1 kg Body Mass Index (BMI) 33.1 Intake & Output: Intake and Output for Last 24 Hours 04/10/22 04/11/22 04/12/22 23:59 23:59 23:59 Intake Total 9.58 / 2079.58 3001.75 / 3001.75 860 / 860 Balance 2079.58 / 2079.58 3001.75 / 3001.75 860 / 860 Lab / Micro Data Attestation: I reviewed the patient's lab results. Result Diagrams: 04/12/22 06:20 04/12/22 06:20 Labs: Laboratory Results - last 24 hr 04/11/22 11:55: POC Glucose 171 H 04/11/22 17:16: POC Glucose 223 H 04/11/22 21:47: POC Glucose 228 H 04/12/22 06:20: WBC 12.6 H, RBC 3.62 L, Hgb 10.9 L, Hct 32.3 L, MCV 89.2, MCH 30.1, MCHC 33.7, RDW Std Deviation 44.8 H, RDW Coeff of Sriram 13.7, Plt Count 392, MPV 9.0, Immature Gran % (Auto) 1.400 H, Neut % (Auto) 81.8 H, Lymph % (Auto) 9.5 L, [place] % (Auto) 6.4, Eos % (Auto) 0.7, Baso % (Auto) 0.2, Absolute Neuts (auto) 10.3 H, Absolute Lymphs (auto) 1.20, Nucleated RBC % 0 04/12/22 06:20: Sodium 140, Potassium 3.3 L, Chloride 109 H, Carbon Dioxide 27.0, Anion Gap 4 L, BUN 7, Creatinine 0.56, Estim Creat Clear Calc 118.96, Est GFR (MDRD) Af Amer 152, Est GFR (MDRD) Non-Af 126, BUN/Creatinine Ratio 12.4, Glucose 184 H, Calcium 7.6 L 04/12/22 06:20: Vancomycin Trough 21.1 H 04/12/22 06:31: POC Glucose 174 H Micro: Microbiology 04/07/22 13:06 Blood Culture (Wb) - Anticubital Right Bacteria Detection (PCR) - Final 04/07/22 13:06 Blood Culture (Wb) - Anticubital Right Blood Culture - Preliminary Presumptive Micrococcus spp. 04/08/22 14:54 Sputum, Expectorated/Coughed Gram Stain - Final 04/08/22 14:54 Sputum, Expectorated/Coughed Respiratory Culture - Final Staphylococcus aureus Alpha Hemolytic Streptococcus 04/07/22 15:15 Urine, Clean Catch Urine Culture - Final Culture exhibits no growth. 04/08/22 15:15 Urine, Clean Catch Legionella Antigen - Final 04/08/22 15:15 Urine, Clean Catch Streptococcus pneumoniae Antigen (M - Fi nal Physical Exam Const alert, oriented x3 and no apparent distress Constitutional Narrative: No conversational dyspnea HEENT head/scalp atraumatic, moist oral mucous membranes and oropharynx normal Head and Scalp: normocephalic Mouth: oral and palatal mucosa normal Eyes PERRL, EOMs intact bilaterally and conjunctivae normal Neck no lymphadenopathy and supple Chest inspection of chest normal Resp Resp Narrative: On room air Auscultation: rhonchi right lower (Improved with coughing); Negative for rales or wheezes Cardio regular rate, regular rhythm, S1 normal heart sound, S2 normal heart sound and no murmurs GI normal to inspection, nondistended, normoactive bowel sounds, soft to palpation and non-tender Extremity normal to inspection, full ROM and no clubbing, cyanosis or edema Extremity Narrative: PICC in right upper extremity Neuro oriented x3, CN's II-XII intact bilaterally, moves all extremities and no focal motor deficits Sensorium / Orientation: awake and alert Motor Exam: strength 5/5 throughout Psych affect normal Charges/Coding Visit Charges Inpatient E&M: 94131 Subs Hosp L2
[2022-04-12] MEDS: NYSTATIN 500,000 UNIT/5 ML UDC 500000 UNIT PO (10:49)
[2022-04-12] MEDS: Enoxaparin 40 MG/0.4 ML Syringe SC (10:50)
[2022-04-12] MEDS: guaiFENesin 1,200 MG Tablet 1200 MG PO (10:50)
[2022-04-12 11:45] LABS: Bedside Glucose 170 mg/dL (74-106)
--- NOTE | 2022-04-12 13:33 | DS.PCM_ITS ---
Providers Date of Admission: 04/07/22 Date of Discharge: 04/12/22 Primary Care Physician: Dr. Eldon Hernandez MD Consultations 04/08/22 09:34 Consult: Teamsite Developer / Pulmonary Medicine Routine Consulting Provider: Pulmonary Medicine raheem [place] Reason for Consult: post viral pneumonia EMERGENT Consult: No Notified: Yes Date Notified: 04/08/22 Time Notified: 09:34 Method of Notification: Text 04/09/22 12:40 Consult: Infectious Disease Routine Consulting Provider: Gen Zarate Reason for Consult: MRSA bacteremia EMERGENT Consult: No Notified: Yes Date Notified: 04/09/22 Time Notified: 12:40 Method of Notification: Verbal Reason For Visit: POST INFLUENZA PNEUMONIA Diagnosis Discharge Diagnosis (1) Community acquired pneumonia due to methicillin resistant Staphylococcus aureus (MRSA): Status: Acute Code(s): J15.212 - Pneumonia due to Methicillin resistant Staphylococcus aureus (2) Acute respiratory failure with hypoxemia: Status: Acute Code(s): J96.01 - Acute respiratory failure with hypoxia Medications at Discharge Home Medications insulin glargine 100 unit/mL (3 mL) subcutaneous pen 30 unit SQ QHS DM 04/29/17 metformin 500 mg tablet 1,000 mg PO DAILY DM 12/06/17 venlafaxine 37.5 mg capsule,extended release 24 hr 37.5 mg PO DAILY DEPRESSION 04/07/22 benzonatate 100 mg capsule 100 mg PO TID #21 caps 04/12/22 cephalexin 500 mg capsule 500 mg PO TID #20 caps 04/12/22 sulfamethoxazole 800 mg-trimethoprim 160 mg tablet (Bactrim DS) 1 tab PO BID 7 days #14 tabs 04/12/22 Hospital Course Operations None Procedures 2-D Echocardiogram, EKG and - (CTA chest) Summary of Care Provided Minutes Spent on Discharge: 36 Hospital Course: Ms. Colvin is a 41-year-old white female who presents emergency department was coming hospital on 04/07/2022 complaining of shortness of breath. She apparently was exposed to influenza proximately 7 days prior to presentation and presented to the emergency department with shortness of breath and productive cough which had been going on for approximately 3 days prior to admission. She denied any fevers, chills, chest pain, palpitations, dizziness, nausea, vomiting, or diarrhea prior to presentation. Vitals were blood pressure of 153/88, pulse rate of 135 respiratory rate of 20.? Temperature was 96.8 Fahrenheit.? She was saturating at 92% on room air.? CBC and BMP have been ordered and were pending.? Chest x-ray showed a large volume of right subpulmonic fluid causing compressive atelectasis of the right lower lobe and lateral segment of the right middle lobe with superimposed pneumonia which could not be excluded.? She did report a known history of tobacco abuse quitting 1 week prior to presentation. Cultures were obtained and she was placed on broad- spectrum antibiotics and initially admitted to PCU. She initially quired 3 L of supplemental oxygen and during her hospital course we were slowly able to wean her to room air. On the day of discharge she was ambulated on room air and did not require any supplemental oxygen with ambulation. CTA of her chest was obtained and showed a dense consolidation involving the lateral aspect of the right middle lobe and the right lower lobe with patchy focal infiltrates in both lung burnette as well as enlargement of the right hilar lymph node with follow-up recommended. No pleural effusions were noted. An echocardiogram showed an EF of 55 to 60% with no signs of valvular vegetation. Initial blood culture showed presumptive micrococcus with a sputum culture that was positive for alpha- hemolytic strep and staph aureus that was methicillin-resistant. Infectious disease was consulted and recommended discharge for another week of Bactrim and Keflex. She will need follow-up with pulmonary medicine in 4 to [address] scan and with her history of tobacco abuse. We recommend continued cessation. She did request an antitussive at discharge and we wrote for Tessalon Perles in addition to her antibiotics. We also instructed her to use Robitussin as needed [id number]. She is to follow-up with her primary care physician within the next week. Discharge diagnoses: Alpha-hemolytic strep/MRSA pneumonia Recent influenza A Micrococcus bacteremia Acute hypoxic respiratory failure-resolved DM-2 History of lupus Hypertension History of tobacco abuse Abnormal CT of the chest Physical Exam Const alert, oriented x3, no apparent distress and well nourished Constitutional Narrative: Obese, middle-aged white female sitting in chair at bedside, currently on room air, appears comfortable nontoxic, pleasant and appropriately interactive, nursing at bedside General Appearance: cooperative, comfortable, well kempt and well developed Orientation / Consciousness: awake, oriented to person, oriented to place and oriented to time Exam Limitations: no limitations HEENT normocephalic, head/scalp atraumatic, hearing grossly normal bilaterally and moist oral mucous membranes HEENT Narrative: Mallampati 3, no thrush, dentition is good Eyes PERRL, EOMs intact bilaterally and conjunctivae normal Eyes Narrative: No scleral icterus Neck no lymphadenopathy and supple Neck Narrative: Neck is short and thick, trachea is midline, no thyroid enlargement Resp normal respiratory effort, no retractions, no use of accessory muscles and clear to auscultation bilaterally Auscultation: Negative for crackles, rhonchi or wheezes Cardio regular rate, regular rhythm, S1 normal heart sound, S2 normal heart sound, no murmurs, no rub, no gallops and no clicks GI normal to inspection, nondistended, normoactive bowel sounds, soft to palpation, non-tender and non-distended Extremity no clubbing, cyanosis or edema Extremity Narrative: 2+ pedal pulses Skin no rashes or lesions noted, no wounds, skin turgor normal and no jaundice Skin Narrative: PICC line-clean and dry with dressing intact right upper extremity Neuro oriented x3, CN's II-XII intact bilaterally, moves all extremities and no focal motor deficits Speech: speech normal Psych affect normal Psych Narrative: Very pleasant appropriately interactive Weight / BMI Weight Weight: 97.1 kg Body Mass Index (BMI) 33.1 ABG / Lab / Microbiology Data Result Diagrams: 04/12/22 06:20 04/12/22 06:20 Laboratory: Laboratory Results - last 24 hr 04/11/22 17:16: POC Glucose 223 H 04/11/22 21:47: POC Glucose 228 H 04/12/22 06:20: WBC 12.6 H, RBC 3.62 L, Hgb 10.9 L, Hct 32.3 L, MCV 89.2, MCH 30.1, MCHC 33.7, RDW Std Deviation 44.8 H, RDW Coeff of Sriram 13.7, Plt Count 392, MPV 9.0, Immature Gran % (Auto) 1.400 H, Neut % (Auto) 81.8 H, Lymph % (Auto) 9.5 L, [place] % (Auto) 6.4, Eos % (Auto) 0.7, Baso % (Auto) 0.2, Absolute Neuts (auto) 10.3 H, Absolute Lymphs (auto) 1.20, Nucleated RBC % 0 04/12/22 06:20: Sodium 140, Potassium 3.3 L, Chloride 109 H, Carbon Dioxide 27.0, Anion Gap 4 L, BUN 7, Creatinine 0.56, Estim Creat Clear Calc 118.96, Est GFR (MDRD) Af Amer 152, Est GFR (MDRD) Non-Af 126, BUN/Creatinine Ratio 12.4, Glucose 184 H, Calcium 7.6 L 04/12/22 06:20: Vancomycin Trough 21.1 H 04/12/22 06:31: POC Glucose 174 H 04/12/22 11:22: POC Glucose 170 H Microbiology: Microbiology 04/07/22 13:06 Blood Culture (Wb) - Anticubital Right Bacteria Detection (PCR) - Final 04/07/22 13:06 Blood Culture (Wb) - Anticubital Right Blood Culture - Preliminary Presumptive Micrococcus spp. 04/08/22 14:54 Sputum, Expectorated/Coughed Gram Stain - Final 04/08/22 14:54 Sputum, Expectorated/Coughed Respiratory Culture - Final Staphylococcus aureus Alpha Hemolytic Streptococcus 04/07/22 15:15 Urine, Clean Catch Urine Culture - Final Culture exhibits no growth. 04/08/22 15:15 Urine, Clean Catch Legionella Antigen - Final 04/08/22 15:15 Urine, Clean Catch Streptococcus pneumoniae Antigen (M - Final D/C Instructions Discharge Diet: 1800 Calorie Control Diet Discharge Activity: Return to Normal Activity Meaningful Use Info Meaningful Use Diagnoses (Choose all that apply): None applicable Discharge Plan Admission Admit Date/Time: 04/07/22 13:05 Primary Reason for Your Visit: Shortness of Breath Attending Provider: Thania Dunham Primary Care Provider: Eldon Hernandez Consulting Providers: Gen Zarate ; Jakob Wong ; Carmine Saul ; Roly Conner ; Petros Louis ; Audra Mcintosh NP ; Cassie Elmore Discharge Orders/Prescriptions Prescriptions: New sulfamethoxazole-trimethoprim [Bactrim DS] 800-160 mg tablet 1 tab PO BID 7 Days Qty: 14 0RF cephalexin 500 mg capsule 500 mg PO TID Qty: 20 0RF benzonatate 100 mg Capsule 100 mg PO TID Qty: 21 0RF Continued insulin glargine 100 UNIT/ML insulin pen 30 unit SQ QHS metformin 500 MG tablet 1,000 mg PO DAILY Label Comments: TAKE 1 TABLET TWICE DAILY WITH meals venlafaxine 37.5 mg capsule,extended release 24hr 37.5 mg PO DAILY Label Comments: TAKE 1 CAPSULE BY MOUTH EVERY DAY Referrals / Follow Up: Carmine Saul DO [Med Staff - Active Staff] - See Referral Note (4 to 6 weeks) Eldon Hernandez MD [Primary Care Provider] - In 1 Week Disposition Disposition (needs filled in before D/C Order can be placed): Home, Self Care Charges/Coding Visit Charges Inpatient E&M: 45095 Disch Hosp
--- NOTE | 2022-04-12 13:54 | PCM.CONS.GEN ---
Assessment & Plan Assessment/Plan (1) Community acquired pneumonia due to methicillin resistant Staphylococcus aureus (MRSA): PLAN: Sputum with MRSA and strep. overall much improved with vanc/zosyn. Ok for home with 7 more days po bactrim and keflex with pulm followup. Wrote rx, d/w Dr. Dunham. Thank you, will follow as needed (2) Acute respiratory failure with hypoxemia: HPI Consult Data Date of Consult: 04/12/22 HPI Narrative Reason for Consultation: pneumonia HPI Narrative: EZIO NIELSON, is a 41 F with DM, htn, SLE, presented 04/07/22 with 2 weeks not feeling well. C/o fever, chills, cough with green sputum, dyspnea, aches, fatigue, congestion. Dx with flu, then sx worsened despite treatment. Admitted to icu, now feeling better, has been on vanc/zosyn. Fever resolved. Full ROS performed and neg except as noted above. [facility] Medical History Acute respiratory failure with hypoxemia Anxiety Cellulitis of foot, right Chest pain Community acquired pneumonia due to methicillin resistant Staphylococcus aureus (MRSA) Diabetes HTN (hypertension) Leaky heart valve Lupus Home Medications insulin glargine 100 unit/mL (3 mL) subcutaneous pen 30 unit SQ QHS DM 04/29/17 [History Last Taken 04/05/22] metformin 500 mg tablet 1,000 mg PO DAILY DM 12/06/17 [History Last Taken 04/07/22] venlafaxine 37.5 mg capsule,extended release 24 hr 37.5 mg PO DAILY DEPRESSION 04/07/22 [History Last Taken 04/06/22] benzonatate 100 mg capsule 100 mg PO TID #21 caps 04/12/22 [Rx Last Taken Unknown] cephalexin 500 mg capsule 500 mg PO TID #20 caps 04/12/22 [Rx Last Taken Unknown] sulfamethoxazole 800 mg-trimethoprim 160 mg tablet (Bactrim DS) 1 tab PO BID 7 days #14 tabs 04/12/22 [Rx Last Taken Unknown] Allergy/AdvReac Type Severity Reaction Status Date / Time cetirizine HCl [From Zyrtec] Allergy Hives Verified 04/07/22 10:55 prochlorperazine edisylate Allergy Hives Verified 04/07/22 10:55 [From Compazine] prochlorperazine maleate Allergy Hives Verified 04/07/22 10:55 [From Compazine] acetaminophen [From Percocet] AdvReac Nausea/Vom/ Verified 04/07/22 10:55 Diarrhea oxycodone [From Percocet] AdvReac Nausea/Vom/ Verified 04/07/22 10:55 Diarrhea Family History Mother Diabetes Hypertension Father Diabetes Surgical History S/P laparoscopic cholecystectomy Social History Smoking Status: Former smoker alcohol intake: never Physical Exam Const alert, oriented x3 and no apparent distress General Appearance: cooperative HEENT normocephalic and head/scalp atraumatic Eyes PERRL and EOMs intact bilaterally Neck supple and No nodes Resp Auscultation: rhonchi and wheezes Cardio regular rate and regular rhythm GI soft to palpation, non-tender and non-distended Extremity General Extremity: Negative for edema Skin no rashes or lesions noted Neuro CN's II-XII intact bilaterally Lab / Micro Data Attestation: I reviewed the patient's lab results. Result Diagrams: 04/12/22 06:20 04/12/22 06:20 Labs: Laboratory Results - last 24 hr 04/11/22 17:16: POC Glucose 223 H 04/11/22 21:47: POC Glucose 228 H 04/12/22 06:20: WBC 12.6 H, RBC 3.62 L, Hgb 10.9 L, Hct 32.3 L, MCV 89.2, MCH 30.1, MCHC 33.7, RDW Std Deviation 44.8 H, RDW Coeff of Sriram 13.7, Plt Count 392, MPV 9.0, Immature Gran % (Auto) 1.400 H, Neut % (Auto) 81.8 H, Lymph % (Auto) 9.5 L, [place] % (Auto) 6.4, Eos % (Auto) 0.7, Baso % (Auto) 0.2, Absolute Neuts (auto) 10.3 H, Absolute Lymphs (auto) 1.20, Nucleated RBC % 0 04/12/22 06:20: Sodium 140, Potassium 3.3 L, Chloride 109 H, Carbon Dioxide 27.0, Anion Gap 4 L, BUN 7, Creatinine 0.56, Estim Creat Clear Calc 118.96, Est GFR (MDRD) Af Amer 152, Est GFR (MDRD) Non-Af 126, BUN/Creatinine Ratio 12.4, Glucose 184 H, Calcium 7.6 L 04/12/22 06:20: Vancomycin Trough 21.1 H 04/12/22 06:31: POC Glucose 174 H 04/12/22 11:22: POC Glucose 170 H Micro: Microbiology 04/07/22 13:06 Blood Culture (Wb) - Anticubital Right Bacteria Detection (PCR) - Final 04/07/22 13:06 Blood Culture (Wb) - Anticubital Right Blood Culture - Preliminary Presumptive Micrococcus spp. 04/08/22 14:54 Sputum, Expectorated/Coughed Gram Stain - Final 04/08/22 14:54 Sputum, Expectorated/Coughed Respiratory Culture - Final Staphylococcus aureus Alpha Hemolytic Streptococcus
== END 2022-04-12 14:40 | disposition home or self-care (01) | DRG 137 ==
LOC: ED 11:36 → PCU 13:06 → ICU 04-10 11:15
PROVIDERS: Internal Medicine Critical Care Medicine; Admitting Provider Student in an Organized Health Care Education/Training Program; Emergency Provider Emergency Medicine; PCP Family Medicine; Visit Provider Internal Medicine
DX: J15.212 Pneumonia due to Methicillin resistant Staphylococcus aureus (principal); B96.89 Other specified bacterial agents as the cause of diseases classified elsewhere; E11.9 Type 2 diabetes mellitus without complications; F41.9 Anxiety disorder, unspecified; E66.9 Obesity, unspecified; Z79.4 Long term (current) use of insulin; I10 Essential (primary) hypertension; L93.2 Other local lupus erythematosus; J10.08 Influenza due to other identified influenza virus with other specified pneumonia; Z87.891 Personal history of nicotine dependence; Z66 Do not resuscitate; R59.0 Localized enlarged lymph nodes; Z79.84 Long term (current) use of oral hypoglycemic drugs
CPT/HCPCS: 36415; 36569; 36600; 71045; 71275; 80048; 80053; 80202; 82803; 82962; 83605; 85025; 85610; 85730; 87040; 87070; 87086; 87149; 87186; 87205; 87449; 87641; 93005; 93306; 94640; 97802; 99251; 99285; J7030; J7040; J7050; Q9967; A4216; G0463; J2405

== ENCOUNTER 2022-04-29 09:29 | Emergency (ER) | payer MEDICAID, SELFPAY ==
[2022-04-29 09:30] VITALS: BP 213/117; PULSE 120; RESP 18; TEMP 37; O2SAT 96; BMI 33.1
--- NOTE | 2022-04-29 10:22 | RAD_ITS ---
STUDY: X-RAY CHEST REASON FOR EXAM: Female, 41 years old. Cough TECHNIQUE: PA and lateral views of the chest. COMPARISON: Comparison is made with prior study dated 04/10/2022. FINDINGS: Persistent infiltration in the right lower lobe with a small right pleural effusion. This has improved as compared to prior study. Persistent patchy infiltrate in the left lower lobe although there has been improvement as compared to prior study. Normal size heart. Normal mediastinum and kayden. Normal visualized pulmonary arteries. Normal visualized aortic arch and descending thoracic aorta. There is a levoscoliosis of the thoracic spine. Normal visualized ribs, clavicles, and shoulders. There is no demonstrated abnormality of the visualized soft tissue structures of the upper abdomen. RAD/Chest PA and Lateral IMPRESSION: Persistent bilateral basilar infiltrates worse at the right lung base with improvement as compared to prior study. Small right pleural effusion. Electronically Signed: Jamel Zapata MD at 11:00 EST ,
--- NOTE | 2022-04-29 10:23 | EKG12_ITS ---
Test Reason : GENERAL Blood Pressure : / mmHG Vent. Rate : 099 BPM Atrial Rate : 099 BPM P-R Int : 138 ms QRS Dur : 084 ms QT Int : 346 ms P-R-T Axes : 055 071 063 degrees QTc Int : 444 ms Normal sinus rhythm Normal ECG Confirmed by HA MALDONADO, ALEJANDRA ([id number]), department editor KELSEY CARRERA ([id number]) on 05/03/2022 10:30:28 AM Referred By: Confirmed By:BHARGAVI BONNER MD
[2022-04-29 10:24] VITALS: BP 148/79; PULSE 96; RESP 17; TEMP 37; O2SAT 95
[2022-04-29 10:30] VITALS: O2SAT 95
[2022-04-29 10:47] LABS: Absolute Lymphocyte Count 2.16 X10^3/uL (0.83-4.51); Absolute Neutrophil Count 6.4 X10^3/uL (2.0-7.7); Basophil# 0.05 X10^3/uL; Basophil% 0.5 % (0-1); Eosinophil# 0.12 X10^3/uL; Eosinophils% 1.3 % (0-5); Hematocrit 37.1 % (37-47); Hemoglobin 12.2 g/dL (12.0-15.0); Lymphocyte # 2.16 X10^3/ul (0.83-4.51); Lymphocyte % 23.5 % (19-41); Mean Corp Hgb Conc 32.9 g/dL (32-36); Mean Corpuscular Volume 91.2 fL (81-99); Mean Platelet Vol. 9.3 fl (6.2-12.0); Monocyte# 0.49 X10^3/uL; Monocyte% 5.3 % (0-10); NRBC Flagged by Analyzer 0 % (0-5); Neutrophil # 6.35 X10^3/uL (2.7-7.7); Platelet Count 367 K/mm3 (150-450); RBC Distribution Width CV 13.7 % (11.6-14.6); RBC Distribution Width SD 45.3 fl (35.1-43.9); Red Blood Count 4.07 M/mm3 (4.2-5.4); White Blood Count 9.2 K/mm3 (4.4-11.0)
--- NOTE | 2022-04-29 10:57 | EDS_ITS ---
HPI History of Present Illness Chief Complaint: Shortness of Breath Informant: patient Narrative Narrative: Patient presents to the ED after discussing with her PCP and being seen yesterday in the office. Reported admitted April 07 to for pneumonia. She had influenza a week prior to that. She states likely COPD history with half pack a day smoker for years. She stopped smoking prior to her illness. She states she finished the antibiotics have not fully recovered. She followed up 2 days ago states had outpatient chest x-ray and labs. Yesterday was contacted states concern for pneumonia bilaterally. She was told due to clinically not improving to go to the ED yesterday however she states she would wait till today. Denies any current fevers denies any new cough. Denies chest or abdominal pain. She states she is concerned from potential UTI with mild discomfort with urination for the past 3 days. No back pain. Reports continued fatigue. There is been no falls. She had COVID infection in the past that did not require hospitalization. After evaluation reviewing records had hospitalized for 5 days apparently sputum studies alphahemolytic strep along with MRSA. She had continued Keflex Bactrim for additional week with ID consult as an outpatient. She was on oxygen in the hospital however was not discharged on oxygen. [facility] Medical History Acute respiratory failure with hypoxemia Anxiety Cellulitis of foot, right Chest pain Community acquired pneumonia due to methicillin resistant Staphylococcus aureus (MRSA) Diabetes HTN (hypertension) Leaky heart valve Lupus Home Medications insulin glargine 100 unit/mL (3 mL) subcutaneous pen 30 unit SQ QHS DM 04/29/17 [History Last Taken 04/05/22] metformin 500 mg tablet 1,000 mg PO DAILY DM 12/06/17 [History Last Taken 04/07/22] venlafaxine 37.5 mg capsule,extended release 24 hr 37.5 mg PO DAILY DEPRESSION 04/07/22 [History Last Taken 04/06/22] benzonatate 100 mg capsule 100 mg PO TID #21 caps 04/12/22 [Rx Last Taken Unknown] cephalexin 500 mg capsule 500 mg PO TID #20 caps 04/12/22 [Rx Last Taken Unknown] sulfamethoxazole 800 mg-trimethoprim 160 mg tablet (Bactrim DS) 1 tab PO BID 7 days #14 tabs 04/12/22 [Rx Last Taken Unknown] nitrofurantoin monohydrate/macrocrystals 100 mg capsule (Macrobid) 100 mg PO Q12H 5 days #10 caps 04/29/22 [Rx Last Taken Unknown] Allergy/AdvReac Type Severity Reaction Status Date / Time cetirizine HCl [From Zyrtec] Allergy Hives Verified 04/29/22 09:34 prochlorperazine edisylate Allergy Hives Verified 04/29/22 09:34 [From Compazine] prochlorperazine maleate Allergy Hives Verified 04/29/22 09:34 [From Compazine] acetaminophen [From Percocet] AdvReac Nausea/Vom/ Verified 04/29/22 09:34 Diarrhea oxycodone [From Percocet] AdvReac Nausea/Vom/ Verified 04/29/22 09:34 Diarrhea Family History Mother Diabetes Hypertension Father Diabetes Surgical History S/P laparoscopic cholecystectomy Social History Smoking Status: Former smoker alcohol intake: never ROS ROS ED Constitutional Constitutional ED: Denies chills, fever(s) or sweats Eyes Eyes: Denies change in vision ENT ENT ED: Denies dysphagia or sore throat Cardiovascular Cardiovascular: Denies chest pain, leg edema, palpitations or racing heartbeat Respiratory/Chest Respiratory/Chest: Reports cough and dyspnea; Denies dyspnea on exertion Gastrointestinal Gastrointestinal: Denies abdominal pain, diarrhea, nausea or vomiting Genitourinary Genitourinary ED: Reports dysuria; Denies hematuria or urinary frequency Musculoskeletal Musculoskeletal: Denies back pain, extremity pain or neck pain Integumentary Denies rash or wounds Neurologic Neurologic: Reports weakness; Denies headache(s) or paresthesias EXAM Physical Exam Const Vital Signs: 04/29/22 09:30 04/29/22 10:24 04/29/22 10:30 Temperature 98.6 F 98.6 F Temperature Source Temporal Oral Pulse Rate 120 H 96 Respiratory Rate 18 17 Respiratory Effort Normal Non-Labored Respiratory Depth Normal Respiratory Pattern Normal Blood Pressure 213/117 H 148/79 H Blood Pressure Mean 149 102 Pulse Ox 96 95 Oxygen Delivery Method Room Air Room Air 04/29/22 11:43 04/29/22 13:51 Temperature Temperature Source Pulse Rate 84 Respiratory Rate 16 Respiratory Effort Respiratory Depth Respiratory Pattern Blood Pressure 139/71 H Blood Pressure Mean 93 Pulse Ox 96 99 Oxygen Delivery Method Room Air Room Air Positive well nourished and well developed General Appearance ED: well developed and NAD HEENT Reports moist mucous membranes normocephalic and atraumatic Eyes PERRL, EOMs intact bilaterally and conjunctivae normal General Eye ED: Yes normal appearance of both eyes Neck no lymphadenopathy and supple General: Negative for tenderness Chest Wall Chest: Negative for tenderness Resp normal respiratory effort and normal air movement Effort and Inspection: symmetric chest movement; Negative for respiratory distress Cardio regular rhythm and no murmurs Rate: tachycardic Peripheral Pulses: pulses 2+ throughout GI normal to inspection, nondistended, normoactive bowel sounds and non-tender Palpation: Negative for guarding or rebound tenderness present Back/Spine no CVA tenderness and no thoracic nor lumbar tenderness Extremity normal to inspection General Extremety ED: Negative for edema or tenderness General Extremity: Negative for edema Neuro oriented x3 and no sensory deficits noted Sensorium / Orientation: awake and alert Skin no rashes or lesions noted and no wounds MDM MDM MDM Narrative Medical decision making narrative: StoryPatient nontoxic hypertensive on evaluation without any symptoms tachycardic initially. EKG was sinus at 99. Differential includes persistent pneumonia, COVID, viral illness, COPD exacerbation, bronchitis. Patient was 96% on room air. History of pneumonia from records had sputum was positive for alphahemolytic strep along with MRSA. Discussed residual effects from her recent pneumonia patient. However work-up will be initiated. Studies were reviewed stable. Glucose was elevated at 491 normal gap. White count 9.2 hemoglobin 12.2. Sodium 132 likely pseudo hyponatremia her elevated glucose. She is given a liter of fluids 10 units of insulin with improvement of her glucose down to 164. Urine notes slight infection she reports symptoms therefore she started antibiotics she declined Keflex therefore Macrobid was started. Blood pressure improved without intervention vital stable on reevaluation. She was ambulated with pulse ox remained stable. Two-view chest x-ray interpreted by myself not read by radiology stable improved changes from her previous. She is more reassured. Macrobid was sent to her pharmacy. She will follow-up with her PCP. Return precautions. All questions were answered. Lab Data Attestation: I reviewed the patient's lab results. Labs: Laboratory Results - last 24 hr 04/29/22 04/29/22 04/29/22 10:28 10:28 11:30 WBC 9.2 RBC 4.07 L Hgb 12.2 Hct 37.1 MCV 91.2 MCH 30.0 MCHC 32.9 RDW Std Deviation 45.3 H RDW Coeff of Sriram 13.7 Plt Count 367 MPV 9.3 Immature Gran % (Auto) 0.400 Neut % (Auto) 69.0 Lymph % (Auto) 23.5 [place] % (Auto) 5.3 Eos % (Auto) 1.3 Baso % (Auto) 0.5 Absolute Neuts (auto) 6.4 Absolute Lymphs (auto) 2.16 Nucleated RBC % 0 Sodium 132 L Potassium 3.9 Chloride 99 Carbon Dioxide 26.0 Anion Gap 7 BUN 7 Creatinine 0.94 Estim Creat Clear Calc 70.87 Est GFR (MDRD) Af Amer 84 Est GFR (MDRD) Non-Af 70 BUN/Creatinine Ratio 7.5 L Glucose 491 H* Calcium 9.0 Urine Color Yellow Urine Clarity Clear Urine pH 6.0 Ur Specific [place]ola 1.010 Urine Protein 15 H Urine Glucose (UA) 1000 H Urine Ketones Negative Urine Occult Blood 25 H Urine Nitrite Negative Urine Bilirubin Negative Urine Urobilinogen Normal Ur Leukocyte Esterase 100 H Urine RBC 0 SEEN Urine WBC 0-5 SEEN Ur Squamous Epith Cells 5-10 SEEN Urine Bacteria 0 SEEN Urine Mucus 0 SEEN Urine Yeast RARE POC Glucose 04/29/22 04/29/22 12:54 13:50 WBC RBC Hgb Hct MCV MCH MCHC RDW Std Deviation RDW Coeff of Sriram Plt Count MPV Immature Gran % (Auto) Neut % (Auto) Lymph % (Auto) [place] % (Auto) Eos % (Auto) Baso % (Auto) Absolute Neuts (auto) Absolute Lymphs (auto) Nucleated RBC % Sodium Potassium Chloride Carbon Dioxide Anion Gap BUN Creatinine Estim Creat Clear Calc Est GFR (MDRD) Af Amer Est GFR (MDRD) Non-Af BUN/Creatinine Ratio Glucose Calcium Urine Color Urine Clarity Urine pH Ur Specific [place] Urine Protein Urine Glucose (UA) Urine Ketones Urine Occult Blood Urine Nitrite Urine Bilirubin Urine Urobilinogen Ur Leukocyte Esterase Urine RBC Urine WBC Ur Squamous Epith Cells Urine Bacteria Urine Mucus Urine Yeast POC Glucose 164 H 222 H Radiography Diagnostic Testing: Clinical Impression(s) from Imaging Studies Chest X-Ray 04/29/22 10:22 IMPRESSION: Persistent bilateral basilar infiltrates worse at the right lung base with improvement as compared to prior study. Small right pleural effusion. Electronically Signed: Jamel Zapata MD at 11:00 EST , EKG Initial EKG: Attestation: I personally reviewed and interpreted this EKG as follows: Comments: Sinus rate of 99, no ST changes. Isolated T wave inversion in aVL. Nonspecific. Discharge Plan Triage Chief Complaint: Shortness of Breath ED Provider: Jakob Verma Dx/Rx/DC Orders Clinical Impression: UTI (urinary tract infection), Hyperglycemia due to diabetes mellitus, Dyspnea Instructions: Urinary Tract Infections in Women, ED Diabetic Hyperglycemia Prescriptions: New nitrofurantoin monohyd/m-cryst [Macrobid] 100 mg capsule 100 mg PO Q12H 5 Days Qty: 10 0RF Rx Instructions: must administer with a meal/food No Action insulin glargine 100 UNIT/ML insulin pen 30 unit SQ QHS metformin 500 MG tablet 1,000 mg PO DAILY Label Comments: TAKE 1 TABLET TWICE DAILY WITH meals venlafaxine 37.5 mg capsule,extended release 24hr 37.5 mg PO DAILY Label Comments: TAKE 1 CAPSULE BY MOUTH EVERY DAY sulfamethoxazole-trimethoprim [Bactrim DS] 800-160 mg tablet 1 tab PO BID 7 Days Qty: 14 0RF cephalexin 500 mg capsule 500 mg PO TID Qty: 20 0RF benzonatate 100 mg Capsule 100 mg PO TID Qty: 21 0RF Primary Care Provider: Eldon Hernandez Referrals: Eldon Hernandez MD [Primary Care Provider] - Activity Restrictions/Additional Instructions: COVID-negative chest ray with improving findings of pneumonia compared to previous. White count normal at 9.2. Glucose 491 with normal gap of 7. Status post insulin with improvement. Monitor your sugars. Urine with findings of UTI with your symptoms take antibiotics as prescribed. Follow-up with your doctor. Return if any worsening symptoms. Disposition Disposition: Home, Self Care Discharge Date/Time: 04/29/22 14:07
[2022-04-29 11:15] LABS: Anion Gap 7 (5-15); BUN 7 mg/dL (7-18); BUN/Creat Ratio 7.5 RATIO (10-20); Chloride 99 mmol/L (98-107); Creatinine, Serum 0.94 mg/dL (0.55-1.02); EST Glomerular Filtration Rate 70 mL/min (>60); Est Glom Filt Rate - Afr Amer 84 mL/min (>60); Estimated Creatinine Clearance 70.87 ml/min; Glucose 491 mg/dL (74-106); Potassium 3.9 mmol/L (3.5-5.1); Sodium Level 132 mmol/L (136-145)
--- NOTE | 2022-04-29 11:16 | ED.RN ---
glucose 491. dr rushing
[2022-04-29 11:35] LABS: Bacteria 0 SEEN /hpf (None Seen); Mucous, Urine 0 SEEN /hpf (<or=2+); Red Blood Cells-Urine 0 SEEN /hpf (0-5)
[2022-04-29 11:40] LABS: Color, Urine Yellow (Yellow); Glucose, Dipstick 1000 mg/dl (Normal); Ketone-Dipstick Negative (Negative); Leukocyte Esterase-Dipstick 100 /ul (Negative); Nitrite-Dipstick Negative (Negative); Occult Blood-Urine 25 /ul (Negative); Protein-Dipstick 15 mg/dl (Negative); Urine Bilirubin Dipstick Negative (Negative); Urine Clarity Clear (Clear); Urine Urobilinogen Normal (Normal)
[2022-04-29] MEDS: Insulin Lispro 100 UNIT/ML INSULN.PEN 10 UNIT SC (11:42)
[2022-04-29] MEDS: 0.9% Normal Saline 1,000 ML 999 ML IV (11:42)
[2022-04-29 11:43] VITALS: BP 139/71; PULSE 84; RESP 16; O2SAT 96
[2022-04-29 11:55] LABS: Squamous Epithelial Cells - UA 5-10 SEEN /hpf (5-10); White Blood Cells 0-5 SEEN /hpf (0-5)
[2022-04-29 11:57] LABS: Yeast-Urine RARE /hpf (None Seen)
[2022-04-29 13:16] LABS: Bedside Glucose 164 mg/dL (74-106)
[2022-04-29 13:51] VITALS: O2SAT 99
[2022-04-29] MEDS: Nitrofurantoin Macrocrystals 100 MG Capsule PO (13:52)
[2022-04-29 13:53] VITALS: O2SAT 97
[2022-04-29 14:11] LABS: Bedside Glucose 222 mg/dL (74-106)
== END 2022-04-29 14:07 | disposition home or self-care (01) ==
PROVIDERS: Emergency Provider Emergency Medicine; PCP Family Medicine; Visit Provider Emergency Medicine
DX: N39.0 Urinary tract infection, site not specified (principal); E11.65 Type 2 diabetes mellitus with hyperglycemia; Z87.891 Personal history of nicotine dependence; I10 Essential (primary) hypertension; J91.8 Pleural effusion in other conditions classified elsewhere; R06.00 Dyspnea, unspecified; Z86.14 Personal history of Methicillin resistant Staphylococcus aureus infection
CPT/HCPCS: 71046; 80048; 81001; 82962; 85025; 87811; 93005; 96360; 99285; J7030; A4216

== ENCOUNTER → 2022-06-08 | Outpatient (CLI) | payer MEDICAID, SELFPAY ==
[2022-06-08 12:29] VITALS: PULSE 104; PULSE 111; PULSE 117; PULSE 122; PULSE 126; PULSE 128; PULSE 129; O2SAT 94; O2SAT 95; O2SAT 96; O2SAT 97; O2SAT 98
--- NOTE | 2022-06-08 15:49 | PCM.PSN.6M ---
PSN 6 Minute Walk Test 6 Minute Walk Test 6 Minute Walk Test: 6 Minute Walk Test PSN:6-Minute Walk Test Start: 06/08/22 12:29 Freq: Status: Active Protocol: [id number].6MINW Document 06/08/22 12:29 DOMO (Rec: 06/08/22 12:32 [id number]) 6 Minute Walk Test Date Performed 06/08/22 Time Performed 12:30 Height 5 ft 5 in Weight: 90.718 kg Weight in Pounds 200.[address]: Carmine Saul FIO2 (% Oxygen) 21 Assistive device used: None Pre-test Oxygen Delivery Method Room Air Pulse Ox (%) 95 Pulse Rate (60-100 beats/min) 104 H Dyspnea Cholo Scale (0-10) 0 Exertion Cholo Scale (6-20) 6 1st minute Oxygen Delivery Method Room Air Pulse Ox (%) 95 Pulse Rate (60-100 beats/min) 122 H 2nd minute Oxygen Delivery Method Room Air Pulse Ox (%) 94 Pulse Rate (60-100 beats/min) 126 H 3rd minute Oxygen Delivery Method Room Air Pulse Ox (%) 97 Pulse Rate (60-100 beats/min) 128 H 4th minute Oxygen Delivery Method Room Air Pulse Ox (%) 97 Pulse Rate (60-100 beats/min) 126 H Number of Rests Taken 1 5th minute Oxygen Delivery Method Room Air Pulse Ox (%) 96 Pulse Rate (60-100 beats/min) 117 H 6th minute Oxygen Delivery Method Room Air Pulse Ox (%) 97 Pulse Rate (60-100 beats/min) 129 H Post-test Oxygen Delivery Method Room Air Pulse Ox (%) 98 Pulse Rate (60-100 beats/min) 111 H Dyspnea Cholo Scale (0-10) 3 Exertion Cholo Scale (6-20) 13 Full Laps Walked 16 Partial Lap, Number of Tiles Walked 18 Total Distance Walked (ft) 962 Interpretation Interpretation: The patient was able to ambulate 962 feet over the course of 6 minutes on room air with no assistive devices and 1 break. The patient experienced no significant desaturation, but did have persistent tachycardia with a peak heart of 129 bpm. These findings are consistent with a cardiovascular limitation exercise tolerance. Recommendations Recommendations: No supplemental oxygen is indicated at this time.
== END | disposition home or self-care (01) ==
LOC: PSN 12:08
PROVIDERS: PCP Family Medicine; Visit Provider Internal Medicine Critical Care Medicine
DX: R06.02 Shortness of breath (principal); F17.210 Nicotine dependence, cigarettes, uncomplicated
CPT/HCPCS: 94618

== ENCOUNTER → 2022-06-22 | Outpatient (CLI) | payer MEDICAID, SELFPAY ==
--- NOTE | 2022-06-22 14:59 | PFTCOMP ---
COMPLETE PULMONARY FUNCTION TEST INTERPRETATION Brief HPI: Patient is a 41-year-old female, currently under the care of Dr. Saul, who presents to [facility] for complete pulmonary function tests secondary to diagnosis of dyspnea. Respiratory therapist reports fair effort and marginal results. Patient was significant difficulty in exhaling for a total of 6 seconds and with a DLCO procedure. Interpretation: Forced expiration spirometry shows a moderately severe large airways obstructive ventilatory defect with an FEV1 of 50% predicted. There is no significant bronchodilator response by strict ATS criteria. Spirograms are of good quality and plateau slowly, indicating slowly emptying areas of the lungs. The respiratory flow volume loop shows decreased expiratory flow rates at all lung volumes consistent with airway obstruction. Lung volumes by body plethysmography show a normal total lung capacity at 4.16 L, 86% predicted. FRC and RV are elevated out of proportion. Lung volume measurements are consistent with air-trapping. Diffusion capacity by carbon monoxide is severely decreased at 21% predicted. The airway resistance is elevated. No previous pulmonary function tests were available for review. Impression: Irreversible moderately severe large airways obstructive ventilatory defect, resulting in air trapping, and a disproportionate reduction in diffusion capacity. Patient did have significant difficulty with testing
== END | disposition home or self-care (01) ==
LOC: PSN 12:03
PROVIDERS: PCP Family Medicine; Referring Provider Internal Medicine Critical Care Medicine; Visit Provider Internal Medicine Critical Care Medicine
DX: R06.02 Shortness of breath (principal); F17.210 Nicotine dependence, cigarettes, uncomplicated
CPT/HCPCS: 94060; 94726; 94729

== ENCOUNTER 2022-11-17 17:14 | Emergency (ER) | payer MEDICAID, SELFPAY ==
[2022-11-17 17:15] VITALS: BP 163/86; PULSE 98; RESP 18; TEMP 36.8; O2SAT 97; BMI 36.1
[2022-11-17 17:51] VITALS: BP 162/87; PULSE 81; RESP 16; O2SAT 97
--- NOTE | 2022-11-17 18:28 | CT_ITS ---
INDICATION: Headache for 3 days EXAMINATION: CT BRAIN - CT Head or Brain W/O Contrast Injection TECHNIQUE: Multiple axial images were obtained of the head without intravenous contrast. A radiation dose optimization technique was used for this scan. IV Contrast dosage and agent: None. COMPARISON: 11/10/2020 FINDINGS: BRAIN PARENCHYMA: No intra- or extra-axial hemorrhage. No evidence of acute infarct. No intracranial mass or mass effect. Posterior fossa structures are unremarkable. CSF SPACES: Appropriate for age. No hydrocephalus. Basal cisterns are patent. CALVARIUM, SKULL BASE, PARANASAL SINUSES AND MASTOID AIR CELLS: Scattered mild ethmoid mucoperiosteal thickening. No discrete lytic or blastic abnormalities. ORBITS: Both globes, extraocular muscles, optic nerves and retrobulbar fat appear unremarkable. CT/Brain/Head without Contrast IMPRESSION: No acute intracranial findings. Electronically Signed: Geovani Valenzuela MD at 19:37 EDT ,
[2022-11-17] MEDS: 0.9% Normal Saline 1,000 ML 999 ML IV (18:47)
[2022-11-17] MEDS: Metoclopramide 10 MG/2 ML Vial IV (18:48)
[2022-11-17] MEDS: DiphenhydrAMINE 50 MG/ML Syringe 25 MG IV (18:49)
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
[2022-11-17 19:15] VITALS: RESP 18
[2022-11-17 21:15] VITALS: RESP 18
== END 2022-11-17 21:33 | disposition home or self-care (01) ==
PROVIDERS: Emergency Provider Emergency Medicine; PCP Family Medicine; Visit Provider Emergency Medicine
DX: R51.9 Headache, unspecified (principal); E11.9 Type 2 diabetes mellitus without complications; Z79.4 Long term (current) use of insulin; I10 Essential (primary) hypertension; Z79.84 Long term (current) use of oral hypoglycemic drugs; Z79.899 Other long term (current) drug therapy; Z90.49 Acquired absence of other specified parts of digestive tract; F17.210 Nicotine dependence, cigarettes, uncomplicated
CPT/HCPCS: 70450; 99283; J7030; A4216

== ENCOUNTER 2023-01-08 09:13 | Emergency (ER) | payer MEDICAID, SELFPAY ==
[2023-01-08 09:14] VITALS: BP 126/91; PULSE 109; RESP 20; TEMP 36; O2SAT 100; BMI 36.0
--- NOTE | 2023-01-08 09:59 | EDS_ITS ---
HPI History of Present Illness Chief Complaint: Back Informant: patient Onset/Context/Timing Onset: Yesterday Context: Gradual Onset Timing: Continuous Quality: Sharp Location: Lumbar Worsened by: improves with Movement and Ambulation Relieved by: Nothing Associated Symptoms Associated Symptoms: Negative for Numbness, Tingling, Radiation to Right Leg, Radiation to Left Leg, Fever, Abdominal Pain, Dysuria, Unable to Ambulate, Unable to Transfer, Urinary Retention, Urinary Incontinence, Constipation or Fecal Incontinence Narrative Narrative: Presents with back pain that began yesterday. Patient states it is gradually gotten worse. Patient states it is constant. Patient states it is sharp. Patient states it is over the lower lumbar area. Patient states it is worse with ambulation and with movement. Patient states she has been taking [id number] analgesics with no improvement. Patient denies any radiation of the pain. Patient denies any paresthesias or weakness. Patient denies any trauma or injury. Patient denies any bowel or bladder changes. Patient denies any saddle anesthesia. [facility] Medical History Acute respiratory failure with hypoxemia Anxiety Cellulitis of foot, right Chest pain Community acquired pneumonia due to methicillin resistant Staphylococcus aureus (MRSA) Diabetes HTN (hypertension) Leaky heart valve Lupus Physical exam, pre-employment Home Medications insulin glargine 100 unit/mL (3 mL) subcutaneous pen 30 unit SQ QHS DM 04/29/17 [History Last Taken 04/05/22] metformin 500 mg tablet 1,000 mg PO DAILY DM 12/06/17 [History Last Taken 04/07/22] empagliflozin 10 mg tablet (Jardiance) 10 mg PO DAILY 07/07/22 [History Last Taken Unknown] albuterol sulfate 90 mcg/actuation aerosol inhaler (Ventolin HFA) 2 puff inhalation Q4H PRN shortness of breath or wheezing #18 grams 07/08/22 [Rx Last Taken Unknown] linagliptin 5 mg tablet (Tradjenta) 5 mg PO DAILY 10/15/22 [History Last Taken Unknown] tiotropium 2.5 mcg-olodaterol 2.5 mcg/actuation mist for inhalation (Stiolto Respimat) 2 inh inhalation DAILY #4 grams 12/16/22 [Rx Last Taken Unknown] hydrocodone-acetaminophen 5-325mg 5mg-325mg 1 tab PO Q6H PRN PRN Pain 3 days #10 TABLETS 01/08/23 [Rx Last Taken Unknown] Allergy/AdvReac Type Severity Reaction Status Date / Time cetirizine HCl [From Zyrtec] Allergy Hives Verified 11/17/22 17:15 prochlorperazine edisylate Allergy Hives Verified 11/17/22 17:15 [From Compazine] prochlorperazine maleate Allergy Hives Verified 11/17/22 17:15 [From Compazine] acetaminophen [From Percocet] AdvReac Nausea/Vom/ Verified 11/17/22 17:15 Diarrhea oxycodone [From Percocet] AdvReac Nausea/Vom/ Verified 11/17/22 17:15 Diarrhea Family History (Reviewed 10/15/22 @ 11:06 by Audra Mcintosh [employer], [employer]) Mother Diabetes Hypertension Father Diabetes Surgical History S/P laparoscopic cholecystectomy Social History Smoking Status: Current every day smoker tobacco type: cigarettes alcohol intake: never ROS ROS ED Constitutional Constitutional ED: Denies chills or fever(s) Eyes Eyes: Denies blurry vision or change in vision ENT ENT ED: Denies rhinorrhea or sore throat Cardiovascular Cardiovascular: Denies chest pain or palpitations Respiratory/Chest Respiratory/Chest: Denies cough or dyspnea Gastrointestinal Gastrointestinal: Denies nausea or vomiting Genitourinary Genitourinary ED: Denies dysuria or hematuria Musculoskeletal Musculoskeletal: Reports back pain; Denies neck pain Integumentary Denies abscess or rash Neurologic Neurologic: Denies headache(s) or weakness Allergic/Immunologic Allergic/Immunologic ED: Denies mouth swelling or urticaria EXAM Physical Exam Const Vital Signs: 01/08/23 09:14 Temperature 96.8 F L Temperature Source Temporal Pulse Rate 109 H Respiratory Rate 20 H Blood Pressure 126/91 H Blood Pressure Mean 102 Pulse Ox 100 Oxygen Delivery Method Room Air Positive well nourished, well developed and obese General Appearance ED: well developed and NAD Nutritional Appearance: obese HEENT Reports moist mucous membranes Neck supple and no JVD Back/Spine Back/Spine Narrative: There is tenderness over the lumbar paraspinal muscles bilaterally. There is mild midline tenderness. There is no edema or ecchymosis. Range of motion was limited in all motions of the lumbar spine secondary to pain. Straight leg raises were negative bilaterally. Strength is 5/5 bilaterally in lower extremities. There are no sensory deficits noted. Deep tendon reflexes are 2/4 bilaterally in the lower extremities. Lumbar Spine / Lower Back: ROM limited and straight leg raise negative bilaterally Extremity normal to inspection and no clubbing, cyanosis or edema Neuro oriented x3 and no sensory deficits noted Sensorium / Orientation: alert Motor Exam: strength 5/5 throughout Psych mental status grossly normal MDM MDM MDM Narrative Medical decision making narrative: Patient was advised that this is most likely muscular strain. Since there was no trauma or fall, I do not feel x-rays are necessary at this time. Patient was given injection of morphine here. Patient is given a prescription for a short course of Trail. Patient was instructed to use ice to the area. Patient was instructed to follow-up with her primary care physician in 5 to 7 days. Patient understood and was agreeable with the plan. All questions were answered. Discharge Plan Triage Chief Complaint: Back ED Provider: Flavio Kunz Dx/Rx/DC Orders Clinical Impression: Nicotine dependence, cigarettes, uncomplicated, Diabetes, COPD (chronic obstructive pulmonary disease), Acute lumbosacral myofascial strain Instructions: ED Back Sprain/Strain Prescriptions: New hydrocodone-acetaminophen [hydrocodone-acetaminophen] 5-325 mg tablet 1 tab PO Q6H PRN PRN (Reason: Pain) 3 Days Qty: 10 0RF No Action Jardiance 10 mg tablet 10 mg PO DAILY Tradjenta 5 mg tablet 5 mg PO DAILY insulin glargine 100 UNIT/ML insulin pen 30 unit SQ QHS metformin 500 MG tablet 1,000 mg PO DAILY Patient Comments: TAKE 1 TABLET TWICE DAILY WITH meals albuterol sulfate [Ventolin HFA] 90 mcg/actuation HFA aerosol inhaler 2 puff inhalation Q4H PRN (Reason: shortness of breath or wheezing) Qty: 18 6RF Stiolto Respimat 2.5-2.5 mcg/actuation mist 2 inh inhalation DAILY Qty: 4 6RF Primary Care Provider: Eldon Hernandez Referrals: Eldon Hernandez MD [Primary Care Provider] - 3-5 Days Disposition Disposition: Home, Self Care
[2023-01-08] MEDS: Morphine 4 MG/ML Syringe IM (10:16)
== END 2023-01-08 10:52 | disposition home or self-care (01) ==
LOC: ED 10:26
PROVIDERS: Emergency Provider Emergency Medicine; PCP Family Medicine; Visit Provider Emergency Medicine
DX: S39.012A Strain of muscle, fascia and tendon of lower back, initial encounter (principal); J44.9 Chronic obstructive pulmonary disease, unspecified; E11.9 Type 2 diabetes mellitus without complications; I10 Essential (primary) hypertension; F17.210 Nicotine dependence, cigarettes, uncomplicated; E66.9 Obesity, unspecified; Z90.49 Acquired absence of other specified parts of digestive tract; X58.XXXA Exposure to other specified factors, initial encounter
CPT/HCPCS: 96372; 99282

== ENCOUNTER 2023-01-22 19:47 | Emergency (ER) | payer MEDICAID, SELFPAY ==
[2023-01-22 19:48] VITALS: BP 135/90; PULSE 99; RESP 18; TEMP 37; O2SAT 95; BMI 36.6
--- NOTE | 2023-01-22 20:23 | EX.ED.DYSGE1 ---
HPI History of Present Illness Chief Complaint: Sore Throat Informant: patient Onset/Context/Timing Onset: Days Context: Gradual Onset Current Severity: Moderate Maximum Severity: Moderate Narrative Narrative: Patient presents secondary to sore throat. She was with her 4-year-old nephew 4 days ago. The following day he developed a fever and sore throat. He was tested and did test positive for strep. Patient states she developed sore throat yesterday. She has cough with minimal sputum production. She has not yet developed a fever. [facility] Medical History Acute respiratory failure with hypoxemia Anxiety Cellulitis of foot, right Chest pain Community acquired pneumonia due to methicillin resistant Staphylococcus aureus (MRSA) Diabetes HTN (hypertension) Leaky heart valve Lupus Physical exam, pre-employment Home Medications insulin glargine 100 unit/mL (3 mL) subcutaneous pen 30 unit SQ QHS DM 04/29/17 [History Last Taken 04/05/22] metformin 500 mg tablet 1,000 mg PO DAILY DM 12/06/17 [History Last Taken 04/07/22] empagliflozin 10 mg tablet (Jardiance) 10 mg PO DAILY 07/07/22 [History Last Taken Unknown] albuterol sulfate 90 mcg/actuation aerosol inhaler (Ventolin HFA) 2 puff inhalation Q4H PRN shortness of breath or wheezing #18 grams 07/08/22 [Rx Last Taken Unknown] linagliptin 5 mg tablet (Tradjenta) 5 mg PO DAILY 10/15/22 [History Last Taken Unknown] tiotropium 2.5 mcg-olodaterol 2.5 mcg/actuation mist for inhalation (Stiolto Respimat) 2 inh inhalation DAILY #4 grams 12/16/22 [Rx Last Taken Unknown] hydrocodone-acetaminophen 5-325mg 5mg-325mg 1 tab PO Q6H PRN PRN Pain 3 days #10 TABLETS 01/08/23 [Rx Last Taken Unknown] amoxicillin 500 mg capsule 500 mg PO BID #20 caps 01/22/23 [Rx Last Taken Unknown] Allergy/AdvReac Type Severity Reaction Status Date / Time [facility] Allergy Hives Verified 01/22/23 19:50 prochlorperazine edisylate Allergy Hives Verified 01/22/23 19:50 [From Compazine] prochlorperazine maleate Allergy Hives Verified 01/22/23 19:50 [From Compazine] acetaminophen [From Percocet] AdvReac Nausea/Vom/ Verified 01/22/23 19:50 Diarrhea oxycodone [From Percocet] AdvReac Nausea/Vom/ Verified 01/22/23 19:50 Diarrhea Family History Mother Diabetes Hypertension Father Diabetes Surgical History S/P laparoscopic cholecystectomy Social History Smoking Status: Current every day smoker tobacco type: cigarettes alcohol intake: never ROS ROS ED Constitutional Constitutional ED: Denies chills or fever(s) Eyes Eyes: Denies change in vision or discharge from eye(s) ENT ENT ED: Reports sore throat; Denies discharge from eye(s) or rhinorrhea Cardiovascular Cardiovascular: Denies chest pain or palpitations Respiratory/Chest Respiratory/Chest: Reports cough; Denies dyspnea Gastrointestinal Gastrointestinal: Denies abdominal pain, nausea or vomiting Genitourinary Genitourinary ED: Denies dysuria Musculoskeletal Musculoskeletal: Reports myalgias; Denies back pain or extremity pain Integumentary Denies Abrasions or rash Neurologic Neurologic: Denies headache(s) or weakness Psychiatric Psychiatric: Denies anxiety or depression Allergic/Immunologic Allergic/Immunologic ED: Denies lip swelling or urticaria EXAM Physical Exam Const Vital Signs: 01/22/23 19:48 Temperature 98.6 F Temperature Source Temporal Pulse Rate 99 Respiratory Rate 18 Blood Pressure 135/90 H Blood Pressure Mean 105 Pulse Ox 95 Oxygen Delivery Method Room Air Positive well nourished and well developed General Appearance ED: well developed HEENT Reports normocephalic and head/scalp atraumatic HEENT Narrative: Posterior pharynx examination reveals minimal erythema and tonsillar but enlargement. Uvula is midline. She does have posterior pharynx changes from chronic sinus drainage. No significant edema is appreciated. She is tolerating secretions well and speaks with a strong voice. Eyes PERRL and EOMs intact bilaterally Neck supple Neck Narrative: Bilateral cervical lymphadenopathy noted. Chest Wall inspection of chest normal and palpation of chest normal Resp normal respiratory effort and clear to auscultation bilaterally Cardio regular rate and regular rhythm GI non-tender Palpation: soft Extremity normal to inspection Neuro oriented x3 and no sensory deficits noted Sensorium / Orientation: alert Motor Exam: strength 5/5 throughout Psych mental status grossly normal Skin no rashes or lesions noted MDM MDM MDM Narrative Medical decision making narrative: Patient has a known exposure to strep pharyngitis. We will treat her with a course of amoxicillin. First dose is given here. Return instructions were provided. Discharge Plan Triage Chief Complaint: Sore Throat ED Provider: Isadora Hughes Dx/Rx/DC Orders Clinical Impression: Acute streptococcal pharyngitis Instructions: ED Pharyngitis, Strep (Presumed) Prescriptions: New amoxicillin 500 mg capsule 500 mg PO BID Qty: 20 0RF No Action Jardiance 10 mg tablet 10 mg PO DAILY Tradjenta 5 mg tablet 5 mg PO DAILY insulin glargine 100 UNIT/ML insulin pen 30 unit SQ QHS metformin 500 MG tablet 1,000 mg PO DAILY Patient Comments: TAKE 1 TABLET TWICE DAILY WITH meals hydrocodone-acetaminophen [hydrocodone-acetaminophen] 5-325 mg tablet 1 tab PO Q6H PRN PRN (Reason: Pain) 3 Days Qty: 10 0RF albuterol sulfate [Ventolin HFA] 90 mcg/actuation HFA aerosol inhaler 2 puff inhalation Q4H PRN (Reason: shortness of breath or wheezing) Qty: 18 6RF Stiolto Respimat 2.5-2.5 mcg/actuation mist 2 inh inhalation DAILY Qty: 4 6RF Primary Care Provider: Eldon Hernandez Referrals: Eldon Hernandez MD [Primary Care Provider] - 1-2 Weeks Disposition Disposition: Home, Self Care
[2023-01-22] MEDS: AMOXICILLIN 500 MG CAPSULE PO (20:40)
== END 2023-01-22 20:43 | disposition home or self-care (01) ==
LOC: ED 20:35
PROVIDERS: Emergency Provider Emergency Medicine; PCP Family Medicine; Visit Provider Emergency Medicine
DX: J02.0 Streptococcal pharyngitis (principal); E11.9 Type 2 diabetes mellitus without complications; Z79.4 Long term (current) use of insulin; I10 Essential (primary) hypertension; Z79.84 Long term (current) use of oral hypoglycemic drugs; Z90.49 Acquired absence of other specified parts of digestive tract; F17.210 Nicotine dependence, cigarettes, uncomplicated
CPT/HCPCS: 99283

== ENCOUNTER 2023-04-30 17:39 | Emergency (ER) | payer MEDICAID, SELFPAY ==
[2023-04-30 17:40] VITALS: BP 160/87; PULSE 98; RESP 18; TEMP 36.2; O2SAT 97; BMI 36.7
--- NOTE | 2023-04-30 18:10 | EX.ED.DYSGE1 ---
HPI History of Present Illness Chief Complaint: Cold Sx Detail of Chief Complaint: Cold symptoms Informant: patient Narrative Narrative: Patient presents to the emergency department complaint of cold symptoms that started 3 days ago. Patient has cough and bodyaches and mild sore throat. She has had chills. No fever known. She had multiple sick contacts at work and at home. Patient is a type II diabetic. [facility] Medical History Acute respiratory failure with hypoxemia Anxiety Cellulitis of foot, right Chest pain Community acquired pneumonia due to methicillin resistant Staphylococcus aureus (MRSA) Diabetes HTN (hypertension) Leaky heart valve Lupus Physical exam, pre-employment Home Medications insulin glargine 100 unit/mL (3 mL) subcutaneous pen 30 unit SQ QHS DM 04/29/17 [History Last Taken 04/05/22] metformin 500 mg tablet 1,000 mg PO DAILY DM 12/06/17 [History Last Taken 04/07/22] empagliflozin 10 mg tablet (Jardiance) 10 mg PO DAILY 07/07/22 [History Last Taken Unknown] albuterol sulfate 90 mcg/actuation aerosol inhaler (Ventolin HFA) 2 puff inhalation Q4H PRN shortness of breath or wheezing #18 grams 07/08/22 [Rx Last Taken Unknown] linagliptin 5 mg tablet (Tradjenta) 5 mg PO DAILY 10/15/22 [History Last Taken Unknown] tiotropium 2.5 mcg-olodaterol 2.5 mcg/actuation mist for inhalation (Stiolto Respimat) 2 inh inhalation DAILY #4 grams 12/16/22 [Rx Last Taken Unknown] hydrocodone-acetaminophen 5-325mg 5mg-325mg 1 tab PO Q6H PRN PRN Pain 3 days #10 TABLETS 01/08/23 [Rx Last Taken Unknown] amoxicillin 500 mg capsule 500 mg PO BID #20 caps 01/22/23 [Rx Last Taken Unknown] benzonatate 200 mg capsule 200 mg PO TID PRN cough #20 caps 04/30/23 [Rx Last Taken Unknown] Allergy/AdvReac Type Severity Reaction Status Date / Time cetirizine HCl [From Zte] Allergy Hives Verified 04/30/23 17:40 prochlorperazine edisylate Allergy Hives Verified 04/30/23 17:40 [From Compazine] prochlorperazine maleate Allergy Hives Verified 04/30/23 17:40 [From Compazine] acetaminophen [From Percocet] AdvReac Nausea/Vom/ Verified 04/30/23 17:40 Diarrhea oxycodone [From Percocet] AdvReac Nausea/Vom/ Verified 04/30/23 17:40 Diarrhea Family History Mother Diabetes Hypertension Father Diabetes Surgical History S/P laparoscopic cholecystectomy Social History Smoking Status: Current every day smoker tobacco type: cigarettes alcohol intake: never ROS ROS ED Review of Systems ROS Unobtainable: other Constitutional Constitutional ED: Reports chills and lethargy; Denies fever(s), sweats or weight loss Eyes Eyes: Denies blurry vision, change in vision or diplopia ENT ENT ED: Reports sore throat; Denies rhinorrhea Cardiovascular Cardiovascular: Denies chest pain, orthopnea or racing heartbeat Respiratory/Chest Respiratory/Chest: Reports cough; Denies dyspnea, dyspnea on exertion, orthopnea or sputum Gastrointestinal Gastrointestinal: Denies abdominal pain, diarrhea, nausea or vomiting Genitourinary Genitourinary ED: Denies dysuria, hematuria or urinary frequency Musculoskeletal Musculoskeletal: Reports myalgias; Denies arthralgias, back pain or neck pain Integumentary Denies abscess, Abrasions or rash Neurologic Neurologic: Denies headache(s) or weakness Psychiatric Psychiatric: Denies anxiety, depression or suicidal thoughts Endocrine Endocrinology: Denies polydipsia, polyphagia or polyuria Hematologic/Lymphatic Hematologic/Lymphatic: Denies easy bleeding, easy bruising or lymphadenopathy Allergic/Immunologic Allergic/Immunologic ED: Denies mouth swelling, tongue swelling or urticaria EXAM Physical Exam Const Vital Signs: 04/30/23 17:40 04/30/23 17:39 Temperature 97.1 F L Temperature Source Temporal Pulse Rate 98 Respiratory Rate 18 Respiratory Pattern Normal Blood Pressure 160/87 H Blood Pressure Mean 111 Pulse Ox 97 Oxygen Delivery Method Room Air Positive well nourished and well developed General Appearance ED: well developed and NAD HEENT Reports TM's clear and moist mucous membranes normocephalic and atraumatic; Negative for trauma or tenderness Tympanic Membrane ED: Yes TM's clear Eyes PERRL and EOMs intact bilaterally General Eye ED: Negative for pale conjunctiva or scleral icterus Neck no lymphadenopathy, supple and no JVD General: Negative for tenderness Chest Wall inspection of chest normal and palpation of chest normal Chest: Negative for tenderness Resp normal respiratory effort and clear to auscultation bilaterally Effort and Inspection: Negative for respiratory distress or pain with movement Auscultation: Negative for rhonchi, wheezes or diminished lung sounds Cardio regular rate, regular rhythm, S1 normal heart sound, S2 normal heart sound and no murmurs Peripheral Pulses: pulses 2+ throughout GI normal to inspection, nondistended, normoactive bowel sounds, soft to palpation, non-tender, non-distended and no masses Back/Spine no CVA tenderness and no thoracic nor lumbar tenderness Extremity normal to inspection General Extremety ED: Negative for edema General Extremity: Negative for edema Neuro oriented x3, CN's II-XII intact bilaterally, no sensory deficits noted and gait normal Sensorium / Orientation: awake, alert, oriented to person, oriented to place and oriented to time Motor Exam: strength 5/5 throughout and strength abnormal Psych mental status grossly normal Skin no rashes or lesions noted and no wounds MDM MDM MDM Narrative Medical decision making narrative: Patient presents with cough and bodyaches x 3 days. Patient had influenza as well as COVID and RSV testing and she was positive for influenza B. Clinically she looks well. I will write her prescription for Tessalon Perles. Patient advised to follow-up with her primary care physician as needed. To return if increasing shortness of breath or condition should worsen anyway. Discharge Plan Triage Chief Complaint: Cold Sx ED Provider: Long Smith Dx/Rx/DC Orders Clinical Impression: Influenza B Instructions: ED Influenza (Adult) Prescriptions: New benzonatate 200 mg capsule 200 mg PO TID PRN (Reason: cough) Qty: 20 0RF No Action Jardiance 10 mg tablet 10 mg PO DAILY Tradjenta 5 mg tablet 5 mg PO DAILY insulin glargine 100 UNIT/ML insulin pen 30 unit SQ QHS metformin 500 MG tablet 1,000 mg PO DAILY Patient Comments: TAKE 1 TABLET TWICE DAILY WITH meals hydrocodone-acetaminophen [hydrocodone-acetaminophen] 5-325 mg tablet 1 tab PO Q6H PRN PRN (Reason: Pain) 3 Days Qty: 10 0RF amoxicillin 500 mg capsule 500 mg PO BID Qty: 20 0RF albuterol sulfate [Ventolin HFA] 90 mcg/actuation HFA aerosol inhaler 2 puff inhalation Q4H PRN (Reason: shortness of breath or wheezing) Qty: 18 6RF Stiolto Respimat 2.5-2.5 mcg/actuation mist 2 inh inhalation DAILY Qty: 4 6RF Primary Care Provider: Eldon Hernandez Referrals: Eldon Hernandez MD [Primary Care Provider] - As Needed Disposition Disposition: Home, Self Care Discharge Date/Time: 04/30/23 19:41
--- OUTSIDE RECORDS SUMMARY | 2023-04-30 18:54 | XMS RPT_ITS | CCD ---
Author Name Unknown Address [address] [place] [address] Organization [facility] Care Team Providers Care First Assistant Name Role Phone Michael Ortega PA-C Primary Care Provider Michael ORTEGAORY Primary Care Unavailable ORTEGA, M KEENAN Referring Unavailable ORTEGA, M KEENAN Primary Care Unavailable ORTEGA, M KEENAN Referring Unavailable ORTEGA, M KEENAN Primary Care Unavailable ORTEGA, M KEENAN Referring Unavailable ORTEGA, M KEENAN Primary Care Unavailable ORTEGA, M KEENAN Attending Unavailable ORTEGA, M KEENAN Primary Care Unavailable ORTEGA, M KEENAN Attending Unavailable ORTEGA, M KEENAN Primary Care Unavailable ORTEGA, M KEENAN Referring Unavailable ORTEGA, M KEENAN Primary Care Unavailable ORTEGA, M KEENAN Referring Unavailable ORTEGA, M KEENAN Primary Care Unavailable ORTEGA, M KEENAN Referring Unavailable ORTEGA, M KEENAN Primary Care Unavailable ORTEGA, M KEENAN Referring Unavailable ORTEGA, M KEENAN Referring Unavailable OTREGA, M KEENAN Primary Care Unavailable ORTEGA, M KEENAN Primary Care Unavailable KARIMAMARAINNA Attending Unavailable ORTEGA, M KEENAN Primary Care Unavailable ORTEGA, M KEENAN Attending Unavailable ORTEGA, M KEENAN Primary Care Unavailable ORTEGA, M KEENAN Referring Unavailable ORTEGA, M KEENAN Primary Care Unavailable ORTEGA, M KEENAN Primary Care Unavailable ORTEGA, M KEENAN Attending Unavailable Allergies Allergy Classification Reported Allergen(s) Allergy Type Date of Onset Reaction(s) Facility (20 sources) Acetaminophen / oxyCODONE; Translations: [OXYCODONE-ACETAM INOPHEN] Drug Allergy 7 Vomiting [facility] (20 sources) Cat; Translations: [CATS] Propensity to adverse reactions 0 Hives, Itching [facility] (20 sources) Cetirizine; Translations: [CETIRIZINE HCL] Drug Allergy 4 Hives [facility] Work Phone: (20 sources) dilTIAZem; Translations: [DILTIAZEM] Drug Allergy 4 GI Upset, Vomiting [facility] (20 sources) Dust; Translations: [DUST] Propensity to adverse reactions 0 [facility] (20 sources) Grass pollen; Translations: [GRASS POLLEN] Propensity to adverse reactions to drug 0 Itching [facility] (18 sources) Acetaminophen; Translations: [ACETAMINOPHEN] Drug Allergy 2 GI Upset [facility] Medications Current Medications Medication Drug Class(es) Dates Sig (Normalized) Sig (Original) amoxicillin 500 mg oral capsule (1 source) Penicillin-class Antibacterial Start: 05-27-2022 End: 06-03-2022 take 1 capsule by mouth twice daily amoxicillin (POLYMOX, AMOXIL) 500 mg capsule Take 1 capsule by mouth twice daily for 7 days. 14 capsule 0 05/27/2022 06/03/2022 Active Completed/Discontinued Medications Medication Drug Class(es) Dates Sig (Normalized) Sig (Original) benzonatate 100 mg oral capsule (8 sources) Non-narcotic Antitussive Start: 04-12-2022 End: 06-28-2022 benzonatate (TESSALON PERLE) 100 mg capsule Take by mouth. 0 04/12/2022 06/28/2022 Discontinued Problems Active Problems Problem Classification Problem Date Documented Date Episodic/Chronic Anxiety disorders (20 sources) Anxiety; Translations: [Anxiety disorder, unspecified] Onset: 12-29-2012 12-29-2012 Chronic Contraceptive and procreative management (1 source) Intrauterine contraceptive device in situ; Translations: [Encounter for routine checking of intrauterine contraceptive device] Episodic Diabetes mellitus with complications (20 sources) Type 2 diabetes mellitus; Translations: [Type 2 diabetes mellitus with hyperglycemia] Onset: 04-11-2014 05-01-2019 Chronic Diseases of mouth; excluding dental (1 source) Disorder of tongue; Translations: [Other disturbances of oral epithelium, including tongue] Episodic Disorders of lipid metabolism (20 sources) Dyslipidemia; Translations: [Hyperlipidemia, unspecified] Onset: 01-12-2016 01-12-2016 Chronic Essential hypertension (20 sources) Essential hypertension; Translations: [Essential (primary) hypertension] Onset: 01-15-2012 12-22-2014 Chronic Immunizations and screening for infectious disease (4 sources) Patient encounter status; Translations: [Encounter for screening for infections with a predominantly sexual mode of transmission] Episodic Influenza (1 source) Influenza due to Influenza A virus; Translations: [Influenza due to other identified influenza virus with other respiratory manifestations] Episodic Lymphadenitis (1 source) Hilar lymphadenopathy ; Translations: [Localized enlarged lymph nodes] Episodic Malaise and fatigue (1 source) Fatigue; Translations: [Other fatigue] Episodic Menopausal disorders (1 source) Atrophy of vagina; Translations: [Postmenopausal atrophic vaginitis] Chronic Osteoarthritis (20 sources) Osteoarthritis of right knee joint; Translations: [Unilateral primary osteoarthritis, right knee] Onset: 08-08-2015 08-08-2015 Chronic Other aftercare (1 source) Post-discharge follow-up; Translations: [Encounter for follow-up examination after completed treatment for conditions other than malignant neoplasm] Episodic Other female genital disorders (1 source) Burning sensation of vagina; Translations: [Unspecified condition associated with female genital organs and menstrual cycle] Episodic Other nervous system disorders (20 sources) Brachial plexus disorder; Translations: [Brachial plexus disorders] Onset: 05-09-2013 05-09-2013 Chronic Other nervous system disorders (20 sources) Complex regional pain syndrome; Translations: [Complex regional pain syndrome I, unspecified] Onset: 05-13-2014 10-24-2017 Chronic Other nervous system disorders (20 sources) Complex regional pain syndrome of lower limb; Translations: [Complex regional pain syndrome I of unspecified lower limb] Onset: 03-07-2015 03-07-2015 Chronic Other nervous system disorders (1 source) Complex regional pain syndrome type I of right lower limb; Translations: [Complex regional pain syndrome I of right lower limb] Chronic Other non-traumatic joint disorders (1 source) Pain in right shoulder; Translations: [Acute pain of right shoulder] Onset: 02-24-2023 Episodic Other nutritional; endocrine; and metabolic disorders (20 sources) Body mass index 40+ - severely obese; Translations: [Morbid (severe) obesity due to excess calories] Onset: 01-12-2016 01-12-2016 Chronic Otitis media and related conditions (1 source) Finding of fluid behind tympanic membrane; Translations: [Unspecified nonsuppurative otitis media, left ear] Episodic Skin and subcutaneous tissue infections (1 source) Abscess of scalp; Translations: [Cutaneous abscess of head [any part, except face]] Episodic Systemic lupus erythematosus and connective tissue disorders (20 sources) Lupus erythematosus; Translations: [Systemic lupus erythematosus, unspecified] Onset: 03-07-2015 08-10-2016 Chronic Unclassified (1 source) Rash Onset: 11-16-2022 Urinary tract infections (1 source) Recurrent urinary tract infection; Translations: [Urinary tract infection, site not specified] Episodic Past or Other Problems Problem Classification Problem Date Documented Da te Episodic/Chronic Nonspecific chest pain (20 sources) Chest pain; Translations: [Chest pain, unspecified] Onset: 05-01-2019 06-21-2021 Episodic Other aftercare (1 source) long-term (current) use of insulin; Translations: [Type 2 diabetes mellitus with hyperglycemia, with long-term current use of insulin (HCC)] Onset: 05-01-2019 Episodic Other bone disease and musculoskeletal deformities (1 source) Segmental and somatic dysfunction of cervical region; Translations: [Cervicothoracic somatic dysfunction] Onset: 10-11-2022 Episodic Other connective tissue disease (20 sources) Neuropathic pain; Translations: [Neuralgia and neuritis, unspecified] Onset: 07-17-2014 07-17-2014 Episodic Other connective tissue disease (20 sources) Fibromyalgia; Translations: [Fibromyalgia] Onset: 03-07-2015 03-07-2015 Episodic Other non-traumatic joint disorders (20 sources) Patellar instability; Translations: [Other instability, right knee] Onset: 07-29-2015 07-29-2015 Episodic Other non-traumatic joint disorders (20 sources) Pain in right knee; Translations: [Pain in joint, lower leg] Onset: 11-07-2015 11-07-2015 Episodic Other screening for suspected conditions (not mental disorders or infectious disease) (1 source) Encounter for screening mammogram for malignant neoplasm of breast; Translations: [Encounter for screening mammogram for breast cancer] Onset: 01-26-2023 Episodic Pneumonia (except that caused by tuberculosis or sexually transmitted disease) (3 sources) Pneumonia due to methicillin resistant Staphylococcus aureus; Translations: [Pneumonia due to Methicillin resistant Staphylococcus aureus] Onset: 04-23-2022 Episodic Residual codes; unclassified (20 sources) Tobacco user; Translations: [Tobacco use] Onset: 01-12-2016 01-12-2016 Episodic Spondylosis; intervertebral disc disorders; other back problems (20 sources) Backache; Translations: [Dorsalgia, unspecified] Onset: 08-14-2012 08-14-2012 Episodic Results Test Name Value Interpretation Reference Range Facil ity Vital Signs Date Time Vital Sign Value Performing Clinician Faci lity 06-28-2022 14:50-0500 Body temperature 98.01 [degF] NA Ortega PA-C Work Phone: [facility] 06-28-2022 14:50-0500 Body weight 89.36 kg NA Ortega PA-C Work Phone: [facility] 06-28-2022 14:50-0500 Diastolic blood pressure 76 mm[Hg] NA Ortega PA-C Work Phone: [facility] 06-28-2022 14:50-0500 Heart rate 104 /min NA Ortega PA-C Work Phone: [facility] 06-28-2022 14:50-0500 Respiratory rate 16 /min NA Ortega PA-C Work Phone: [facility] 06-28-2022 14:50-0500 SaO2% (BldA) [Mass fraction] 96 % NA Ortega PA-C Work Phone: [facility] 06-28-2022 14:50-0500 Systolic blood pressure 128 mm[Hg] NA Ortega PA-C Work Phone: [facility] 04-23-2022 10:45-0500 Body temperature 98.4 [degF] NA Ortega PA-C Work Phone: [facility] 04-23-2022 10:45-0500 Body weight 90.27 kg NA Ortega PA-C Work Phone: [facility] 04-23-2022 10:45-0500 Diastolic blood pressure 80 mm[Hg] NA Ortega PA-C Work Phone: [facility] 04-23-2022 10:45-0500 Heart rate 110 /min NA Ortega PA-C Work Phone: [facility] 04-23-2022 10:45-0500 Respiratory rate 20 /min NA Ortega PA-C Work Phone: [facility] 04-23-2022 10:45-0500 SaO2% (BldA) [Mass fraction] 95 % NA Ortega PA-C Work Phone: [facility] 04-23-2022 10:45-0500 Systolic blood pressure 116 mm[Hg] NA Ortega PA-C Work Phone: [facility] 04-15-2022 12:33-0500 Body temperature 97.59 [degF] Ines Shelby RECY[employer]ABLE [employer]ES C[employer] ASSOCIATE Work Phone: [facility] 04-15-2022 12:33-0500 Body weight 93.98 kg Ines Shelby [employer] ASS[employer] Work Phone: [facility] 04-15-2022 12:33-0500 Diastolic blood pressure 84 mm[Hg] Ines Shelby [employer] ASSOCIATE Work Phone: [facility] 04-15-2022 12:33-0500 Heart rate 99 /min Inse Shelby [employer] ASSOCIATE Work Phone: [facility] 04-15-2022 12:33-0500 Respiratory rate 20 /min Ines Shelby [employer] ASSOCIATE Work Phone: [facility] 04-15-2022 12:33-0500 SaO2% (BldA) [Mass fraction] 95 % Ines Shelby [employer] ASSOCIATE Work Phone: [facility] 04-15-2022 12:33-0500 Systolic blood pressure 142 mm[Hg] Ines Shelby [employer] ASS[employer] Work Phone: [facility] 01-11-2022 13:50-0400 Body weight 95.17 kg Madhuri Zurawick [employer] ASS[employer] Work Phone: [facility] 01-11-2022 13:50-0400 Diastolic blood pressure 76 mm[Hg] Madhuri Zurawick [employer] ASS[employer] Work Phone: [facility] 01-11-2022 13:50-0400 Heart rate 83 /min Madhuri Zurawick [employer] ASSOCIATE Work Phone: [facility] 01-11-2022 13:50-0400 Respiratory rate 16 /min Madhuri Zurawick [employer] ASSOCIATE Work Phone: [facility] 01-11-2022 13:50-0400 SaO2% (BldA) [Mass fraction] 96 % Madhuri Zurawick RECY[employer]ABLE [employer] ASSOCIATE Work Phone: [facility] 01-11-2022 13:50-0400 Systolic blood pressure 120 mm[Hg] Madhuri Zurawick [employer] ASS[employer]ATE Work Phone: [facility] 10-15-2021 14:52-0400 Body temperature 98.8 [degF] Tracy Meyer [employer] ASSOCIATE Work Phone: [facility] 10-15-2021 14:52-0400 Body weight 93.89 kg Tracy Meyer [employer] ASSOCIATE Work Phone: [facility] 10-15-2021 14:52-0400 Diastolic blood pressure 96 mm[Hg] Tracy Meyer [employer] ASSOCIATE Work Phone: [facility] 10-15-2021 14:52-0400 Heart rate 122 /min Tracy Meyer [employer] ASSOCIATE Work Phone: [facility] 10-15-2021 14:52-0400 Respiratory rate 20 /min Tracy Meyer [employer] ASSOCIATE Work Phone: [facility] 10-15-2021 14:52-0400 SaO2% (BldA) [Mass fraction] 96 % Tracy Meyer [employer] ASS[employer] Work Phone: [facility] 10-15-2021 14:52-0400 Systolic blood pressure 130 mm[Hg] Tracy Meyer APRN.SALES CENTER ASSOCIATE Work Phone: [facility] 10-01-2021 10:16-0400 Body weight 93.89 kg NA Ortega PA-C Work Phone: [facility] 10-01-2021 10:16-0400 Diastolic blood pressure 66 mm[Hg] NA Ortega PA-C Work Phone: [facility] 10-01-2021 10:16-0400 Heart rate 85 /min NA Ortega PA-C Work Phone: [facility] 10-01-2021 10:16-0400 Respiratory rate 16 /min NA Ortega PA-C Work Phone: [facility] 10-01-2021 10:16-0400 SaO2% (BldA) [Mass fraction] 97 % NA Ortega PA-C Work Phone: [facility] 10-01-2021 10:16-0400 Systolic blood pressure 118 mm[Hg] NA Ortega PA-C Work Phone: [facility] 07-13-2021 10:47-0400 Body weight 92.08 kg Tracy Aguillon APRN.CNM Work Phone: [facility] 07-13-2021 10:47-0400 Diastolic blood pressure 76 mm[Hg] Tracy Aguillon APRN.CNM Work Phone: [facility] 07-13-2021 10:47-0400 Systolic blood pressure 118 mm[Hg] Tracy Aguillon APRN.CNM Work Phone: [facility] Encounters Encounter Date Encounter Type Care Provider Facility Start: 02-24-2023 End: 02-24-2023 ambulatory Michael ORTEGA Facility:[facility] Start: 11-16-2022 End: 11-16-2022 ambulatory Michael ORTEGA Facility:[facility] Start: 10-27-2022 ambulatory Michael Still on PA-C Work Phone: [facility] Procedures Date Procedure Procedure Detail Performing Clinician Start: 10-25-2022 End: 10-25-2022 Mammography Bulk Order Provider Start: 10-01-2021 Adult depression scr eening assessment NA Ortega PA-C Work Phone: Start: 05-01-2019 Adult depression scr eening assessment Tracy Aguillon APRN.CNM Work Phone: Start: 05-01-2019 Electrocardiogram Start: 04-30-2019 Electrocardiogram Plan of Treatment Date Care Activity Detail Author Start: 02-25-2024 Annual PCP Team Marine Fisheries Technician kalie Disease Visit Annual PCP Team Chronic Disease Visit [facility] Start: 02-25-2024 Pneumococcal vaccination Pneum ococcal Vaccine (1 - PCV) [facility] Immunizations Immunization Date Immunization Notes Care Provider Bernie [place] 03-12-2016 influenza, seasonal, injectable NA Ortega PA-C Work Phone: [facility] 03-12-2016 influenza virus vacc ine, unspecified formulation Screen Wstr [facility] 03-05-2015 influenza, injectabl e, quadrivalent, contains preservative Tracy Pal CARSONN.CNM Work Phone: [facility] 03-05-2015 influenza, seasonal, injectable NA Ortega PA-C Work Phone: [facility] 04-03-2014 influenza, seasonal, injectable Tracy Pal CARSONN.CNM Work Phone: [facility] 08-13-2013 tetanus toxoid, redu patty diphtheria toxoid, and acellular pertussis vaccine, adsorbed Tracy Pal CARSONN.CNM Work Phone: [facility] Payers Date Payer Category Payer Medicaid [id number] 2012 Medicaid [employer] [facility] [id number] 2012-Present [phone] [address] [place] [address] Medicaid [id number] 2012 Medicaid [id number] 2012 Medicaid [id number] Social History Date Type Detail Facility Start: 04-30-2019 End: 01-07-2022 Tobacco smoking status NHIS Smokes tobacco daily [facility] History of tobacco use Cigarette Smoker C [facility] Work Phone: Start: 07-13-2021 End: 10-11-2022 Alcohol intake Current drinker of alcohol (finding) [facility] Start: 06-12-2015 History SDOH Alcohol Comment occ [facility] Start: 1980 Sex Assigned At Not on file [facility] Start: 06-29-2021 End: 01-11-2022 Exposure to SARS-CoV-2 (event) Not sure [facility] Start: 09-21-2021 End: 10-01-2021 Exposure to SARS-CoV-2 (event) Yes [facility] Start: 04-30-2019 End: 10-11-2022 Cigarettes smoked current (pack per day) - Reported 0.5 [facility] Start: 04-30-2019 End: 01-07-2022 Tobacco use and exposure Smokeless tobacco non-user [facility] Start: 06-28-2022 History SDOH Alcohol Frequency 1 [facility] Start: 06-28-2022 History SDOH Alcohol Std Drinks 0 [facility] Start: 06-28-2022 History SDOH Social Connections Phone 2 [facility] Start: 06-28-2022 History SDOH Social Connections Living 5 [facility] Start: 06-28-2022 History SDOH Physical Activity MPS 3 [facility] Start: 06-28-2022 End: 10-11-2022 Social connection and isolation panel [facility] Do you belong to any clubs or organizations such as caodaism groups, unions, fraternal or athletic groups, or school groups? No [facility] Are you now , , , , never or living with a partner? [facility] How often to you hav e a drink containing alcohol? Never [facility] How many standard dr inks containing alcohol do you have on a typical day? Patient does not drink [facility] Do you feel stress - tense, restless, nervous, or anxious, or unable to sleep at night because your mind is troubled all the time - these days [OSQ] Only a little [facility] (I/We) worried wheth er (my/our) food would run out before (I/we) got money to buy more. Never true [facility] Start: 1980 Sex Assigned At Female [facility] Start: 11-15-2022 Gender identity Identifies as female gender (finding) [facility] Start: 11-15-2022 Sexual orientation Heterosexual (finding) [facility] Medical Equipment Procedure Code Equipment Code Equipment Origin al Text Equipment Identifier Dates Mirena Iud [id number] - [id number] Start: 03-13-2013 Start: 01-30-2018 Clinical Notes 05-13-2014 to 02-24-2023 Telephone Encounter - Linda Butler Me - 11/01/2022 9:10 AM EDTAddendum Note - Michael Ortega PA-C - 11/01/2022 7:01 AM EDTTelephone Encounter - Michael Ortega PA-C - 11/01/2022 6:55 AM EDT Note Date & Type Note Facility 02-24-2023 Note HNO ID: [id number] Author: Karen Pacheco RT(R) Service: ? Author Type: Environmental Control Administrator Type: Progress Notes Filed: 02/24/2023 12:19 PM Note Text: Radiology Service Progress Note PATIENT NAME: Ezio Nielson DATE OF SERVICE: February 24, 2023 TIME: 12:18 PM PATIENT IDENTITY VERIFICATION COMPLETED USING TWO (2) IDENTIFIERS: Name and Date of confirmed by patient verbally. FALL SCREENING: Has the patient had 2 falls in the last year or 1 fall with injury or currently using an Ambulatory Assistive Device (Walker, Cane, Wheelchair, Crutches, etc.)? No PATIENT GENDER DATA: Female. status: : No status: NO. PATIENT RELEVANT IMPLANT DATA REVIEWED: Yes RADIOLOGY DEPARTMENT: General X-ray: Exam(s) Completed: Upper Extremity X-Ray(s): Shoulder, AP / TRUE AP right Scapular Y view PERIPHERAL IV DATA: Not applicable SIGNED BY: RT Andrey(R) February 24, 2023 12:18 PM [facility] 02-24-2023 Note HNO ID: [id number] Author: Michael Ortega PA-C Service: ? Author Type: Physician Laundry Superintendent Type: Progress Notes Filed: 02/25/2023 5:45 PM Note Text: 42 year old female with c/o burning in lower right side of back over 3 weeks which started as a tearing sensation, now extremely sensitive to anything touching it Taking ibuprofen which is not helping. Feels likely r/t to overuse/ slept wrong. Fibromyalgia flaring with pain multiple areas. HTN: Current meds: No medication Last 3 Encounter BP Readings: Date: BP: 02/24/2023 130/78 10/11/2022 146/80 06/28/2022 128/76 Last 2 Encounter Wt Readings: Date: Wt: 02/24/2023 96.2 kg (212 lb) 10/11/2022 91.9 kg (202 lb 9.6 oz) Diabetes Mellitus Type 2: Current medications: Taking medication as directed consistently? Yes Medication side effects: none Empagliflozin 10mg daily Insulin lantus 25u SC HS Linagliptin 5mg daily Medical Issues / Complications: hypertension and hyperlipidemia Checking blood sugars at home? Blood sugars were running 112-130 Needs sensors. Checks prior to going to bed. Watching diet? No Physical Activity: Regular Hypoglycemic spells? rare Any visual disturbance? No Chest pain? No New numbness, tingling or loss of sensation? No Any recent foot problems, sores or rashes? No Any recent or sudden weight loss? No Change in urination? No. If yes: Any recent illness? No Last eye exam: due. Last foot exam: up to date. HBA1C: Hemoglobin A1C (%) Date Value 04/27/2022 10.0 07/03/2020 10.5 03/29/2020 10.6 ) CMP: Glucose 149 07/01/2022 BUN 18 07/01/2022 Creatinine 0.72 07/01/2022 Sodium 138 07/01/2022 Potassium 3.7 07/01/2022 Chloride 104 07/01/2022 CO2 23 07/01/2022 Protein, Total 7.4 07/01/2022 Albumin 3.7 07/01/2022 Calcium 9.2 07/01/2022 Alkaline Phosphatase 93 07/01/2022 Bilirubin, Total 0.2 07/01/2022 AST 18 07/01/2022 ALT 18 07/01/2022 Last 2 Encounter Wt Readings: Date: Wt: 02/24/2023 96.2 kg (212 lb) 10/11/2022 91.9 kg (202 lb 9.6 oz) Pain in right shoulder indicating mid clavicle. Got slammed into a door 1 month which is when pain started,. HISTORIES FAMILY HISTORY Problem Relation Age of Onset Heart Mother Diabetes Mother Hypertension Mother Arthritis Mother Heart Father Arthritis Father Cancer Maternal Grandmother stomach cancer. PAST MEDICAL HISTORY Diagnosis Date Anxiety 12/29/2012 Arrhythmia Calculus of gallbladder with other cholecystitis, without mention of obstruction Chest pain in adult 05/01/2019 05/01/2019 ER to hosp admit for chest pain: negative serial troponins. EKG negative. No stress testing. Resolved. Diabetes (HCC) Hypertension PAST SURGICAL HISTORY Procedure Laterality Date DELIVERY ONLY , low transverse x2 INSERTION OF IUD 03/09/2013 LAPAROSCOPY SURG CHOLECYSTECTOMY 10/03/08 LAPAROSCOPY SURG CHOLECYSTOENETEROSTOMY 10/04/08 LIG/TRNSXJ FLP TUBE ABDL/VAG APPR UNI/BI Tubal ligation Social History Tobacco Use Smoking status: Every Day Packs/day: 0.50 Years: 20.00 Additional pack years: 0.00 Total pack years: 10.00 Types: Cigarettes Smokeless tobacco: Never Substance Use Topics Alcohol use: Yes Comment: occ Drug use: No ACTIVE PROBLEM LIST Essential Hypertension Backache, Unspecified Anxiety Brachial Plexus Lesions Type 2 Diabetes Mellitus With Hyperglycemia, With Long-Term Current Use of Insulin (Hcc) Reflex Sympathetic Dystrophy Neuropathic Pain Rsd Lower Limb Lupus (Hcc) Fibromyalgia 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 5 Each 3 linaGLIPtin (TRADJENTA) 5 mg tab Take 1 tablet by mouth once daily. 30 tablet 5 levonorgestrel (MIRENA) 20 mcg/24 hours (7 yrs) 52 mg IUD 1 Each by INTRAUTERINE route continuous. flash glucose sensor (FREESTYLE ANA 2 SENSOR) kit 2 Each three times daily as needed. 2 Each 2 Insulin Cecil, Disposable, (SURE-FINE PEN NEEDLES) 31 gauge x 3/16 Daily injections 100 Each 0 blood sugar diagnostic (BLOOD GLUCOSE TEST) test strip Test blood sugar(s) 2 times daily. Dx: Type 2 DM - Uncontrolled E11.65 Insulin: Yes 100 Strip 11 Lancets lancets Test blood sugar(s) two times daily. Dx: E11.65. Insulin: Yes 100 Each 2 No current facility-administered medications for this visit. Hepatitis B Vaccine(1 of 3 - 3-dose series) Never done Covid-19 Vaccine(1) Never done Pneumococcal Vaccine(1 - PCV) Never done BP Controlled (<130/80 (more content not included)... [facility] 11-16-2022 Note HNO ID: [id number] Author: Inna Michel MD Service: ? Author Type: Physician Type: Progress Notes Filed: 11/16/2022 1:16 PM Note Text: This Team Access Model visit is a virtual encounter. It required patient-provider interaction for the medical decision making as documented below. VIRTUAL ONLY VISIT I have communicated my name and active licensure. The patient's identity and physical location were verified at the time of this visit. Either the patient or their legal special service representative has been informed of the risks and benefits of -- and alternatives to -- treatment through a remote evaluation and consents to proceed with the evaluation remotely. HPI: EZIO NIELSON is a 42 year old FEMALE who presents for rash. Rash is present on her chest, neck, back, behind her left ear. Ongoing for 2 years. Rash has become more pruritic recently. Previously saw derm for this rash in 05/2019. Was diagnosed with psoriasis of scalp and torso. Was instructed to use ketoconazole shampoo and clobetasol solution. She was also advised to start lidex ointment to body. Denies new medications, lotions, shampoos, detergents, bed sheets. PAST MEDICAL HISTORY Diagnosis Date Anxiety 12/29/2012 Arrhythmia Calculus of gallbladder with other cholecystitis, without mention of obstruction Chest pain in adult 05/01/2019 05/01/2019 ER to hosp admit for chest pain: negative serial troponins. EKG negative. No stress testing. Resolved. Diabetes (HCC) Hypertension PAST SURGICAL HISTORY Procedure Laterality Date DELIVERY ONLY , low transverse x2 INSERTION OF IUD 03/09/2013 LAPAROSCOPY SURG CHOLECYSTECTOMY 10/03/08 LAPAROSCOPY SURG CHOLECYSTOENETEROSTOMY 10/04/08 LIG/TRNSXJ FLP TUBE ABDL/VAG APPR UNI/BI Tubal ligation ALLERGIES Cats, Dust, Grass Pollen, Acetaminophen, Cardizem [Diltiazem], Percocet [Oxycodone-Acetaminophen], and Zyrtec [Cetirizine Hcl] MEDICATIONS empagliflozin (JARDIANCE) 10 mg tablet Take 1 tablet once daily in the morning insulin glargine (LANTUS SOLOSTAR U-100 INSULIN) 100 unit/mL (3 mL) Inject 25 Units subcutaneously daily at bedtime. linaGLIPtin (TRADJENTA) 5 mg tab Take 1 tablet by mouth once daily. flash glucose sensor (TapCanvasYLE ANA 2 SENSOR) kit 2 Each three times daily as needed. Insulin Cecil, Disposable, (SURE-FINE PEN NEEDLES) 31 gauge x 3/16 Daily injections blood sugar diagnostic (BLOOD GLUCOSE TEST) test strip Test blood sugar(s) 2 times daily. Dx: Type 2 DM - Uncontrolled E11.65 Insulin: Yes Lancets lancets Test blood sugar(s) two times daily. Dx: E11.65. Insulin: Yes levonorgestrel (MIRENA) 20 mcg/24 hours (7 yrs) 52 mg IUD 1 Each by INTRAUTERINE route continuous. fluocinonide (LIDEX) 0.05 % ointment Apply to affected area twice daily as needed. Avoid application to the face, armpits, groin. Use Tuesday-Tuesday. ROS: As per HPI Video Exam (Examination performed via Video enabled technology): General appearance: Well appearing, alert, in no acute distress HEENT: No conjunctival injection. No scleral icterus. Moist mucous membranes. Lungs: Nonlabored breathing, no audible wheezing. Skin: Areas of erythematous patches over chest and upper back. (exam limited due to poor video quality) ASSESSMENT/PLAN: 1. Rash - ICD9: 782.1, ICD10: R21 - FLUOCINONIDE 0.05 % TOPICAL OINTMENT - CONSULT TO DERMATOLOGY Inna Michel MD [facility] 11-01-2022 Miscellaneous Notes [employer] message sent to pt notifying her of response below from Provider. Linda Butler Ma Addended by: Michael ORTEGA on: 11/01/2022 07:01 AM Modules accepted: Orders Please have her complete outstanding labs this as soon as possible. She can cut back glargine insulin to 25u due to low blood sugars over night since starting semaglutide. [facility] Get Medical Advice on 10/27/22 HGB A1C COMP METABOLIC PANEL Thanks, Ron Ortega PA-C documented in this encounter [facility] 10-27-2022 Miscellaneous Notes October 28, 2022 PID: [id number] Ezio Nielson [address] [place] [address] Dear Ms. Nielson, We are pleased to inform you that the results of your recent breast imaging exam on 10/25/2022 are normal. Early detection of cancer is very important. We also understand recommendations regarding breast cancer screening are controversial. Please discuss with your primary care provider which strategy is best for you and whether a mammogram is right for you. Your imaging studies and report will be kept on file at [facility] as part of your permanent medical record and are available for your continuing care. Thank you for allowing us to help in meeting your health care needs. Sincerely, Dr. Pena Interpreting Radiologist [facility] (Normal over 40) documented in this encounter [facility] 10-25-2022 Note HNO ID: [id number] Author: Silvana Yao RT(R) Service: ? Author Type: Environmental Control Administrator Type: Progress Notes Filed: 10/25/2022 1:10 PM Note Text: Radiology Service Progress Note PATIENT NAME: Ezio Nielson DATE OF SERVICE: October 25, 2022 TIME: 1:09 PM PATIENT IDENTITY VERIFICATION COMPLETED USING TWO (2) IDENTIFIERS: Name and Date of confirmed by patient verbally. FALL SCREENING: Has the patient had 2 falls in the last year or 1 fall with injury or currently using an Ambulatory Assistive Device (Walker, Cane, Wheelchair, Crutches, etc.)? No PATIENT GENDER DATA: Female. status: : No status: NO. PATIENT RELEVANT IMPLANT DATA REVIEWED: Not Applicable RADIOLOGY DEPARTMENT: Mammography PERIPHERAL IV DATA: Not applicable SIGNED BY: RT Miranda(R) October 25, 2022 1:09 PM [facility] 10-25-2022 History of Present illness Narrative Radiology Service Progress Note PATIENT NAME: Ezio Nielson DATE OF SERVICE: October 25, 2022 TIME: 1:09 PM PATIENT IDENTITY VERIFICATION COMPLETED USING TWO (2) IDENTIFIERS: Name and Date of confirmed by patient verbally. FALL SCREENING: Has the patient had 2 falls in the last year or 1 fall with injury or currently using an Ambulatory Assistive Device (Walker, Cane, Wheelchair, Crutches, etc.)? No PATIENT GENDER DATA: Female. status: : No status: NO. PATIENT RELEVANT IMPLANT DATA REVIEWED: Not Applicable RADIOLOGY DEPARTMENT: Mammography PERIPHERAL IV DATA: Not applicable SIGNED BY: RT Miranda(R) October 25, 2022 1:09 PM documented in this encounter [facility] 10-11-2022 Note HNO ID: [id number] Author: Michael Ortega PA-C Service: ? Author Type: Physician Laundry Superintendent Type: Progress Notes Filed: 10/11/2022 7:33 PM Note Text: 42 year old female with c/o here for follow up. Having a lot of back pain. Pain lower cervical to thoracic over last 2 days Diabetes Mellitus Type 2: Current medications: Empagliflozin 10 mg daily Insulin glargine 30 units nightly Taking medication as directed consistently? Yes Medication side effects: Medical Issues / Complications: hypertension and hyperlipidemia Checking blood sugars at home? No. Watching diet? No Physical Activity: Regular Hypoglycemic spells? No Any visual disturbance? No Chest pain? No New numbness, tingling or loss of sensation? chronic Any recent foot problems, sores or rashes? No Any recent or sudden weight loss? No Change in urination? No. If yes: Any recent illness? No Last eye exam: 11/23/2018. Due. Last foot exam: due. HBA1C: Hemoglobin A1C (%) Date Value 04/27/2022 10.0 07/03/2020 10.5 03/29/2020 10.6 ) CMP: Glucose 149 07/01/2022 BUN 18 07/01/2022 Creatinine 0.72 07/01/2022 Sodium 138 07/01/2022 Potassium 3.7 07/01/2022 Chloride 104 07/01/2022 CO2 23 07/01/2022 Protein, Total 7.4 07/01/2022 Albumin 3.7 07/01/2022 Calcium 9.2 07/01/2022 Alkaline Phosphatase 93 07/01/2022 Bilirubin, Total 0.2 07/01/2022 AST 18 07/01/2022 ALT 18 07/01/2022 Last 2 Encounter Wt Readings: Date: Wt: 06/28/2022 89.4 kg (197 lb) 04/23/2022 90.3 kg (199 lb) Hyperlipidemia: Current medication none Taking medication consistently n/a Observing low cholesterol high fiber diet No Muscle aches Yes, chronic Stomach complaints/ diarrhea No Last 2 Lipids: Component Latest Ref Rng AND Units 10/24/2017 06/01/2018 05/01/2019 04/27/2022 07/01/2022 Protein, Total 6.3 - 8.0 g/dL 6.7 6.6 8.3 (H) 7.4 Albumin 3.9 - 4.9 g/dL 3.4 (L) 3.1 (L) 2.9 (L) 3.7 (L) Calcium 8.5 - 10.2 mg/dL 8.7 9.3 9.5 9.2 Bilirubin, Total 0.2 - 1.3 mg/dL 0.2 0.3 0.2 0.2 Alkaline Phosphatase 34 - 123 U/L 110 107 208 (H) 93 AST 13 - 35 U/L 12 (L) 16 16 18 Glucose 74 - 99 mg/dL 517 (H) 240 (H) 494 (H) 149 (H) BUN 7 - 21 mg/dL 8 10 12 18 Creatinine 0.58 - 0.96 mg/dL 0.53 (L) 0.44 (L) 0.87 0.72 Sodium 136 - 144 mmol/L 135 (L) 137 132 (L) 138 Potassium 3.7 - 5.1 mmol/L 4.1 3.7 4.9 3.7 Chloride 97 - 105 mmol/L 100 103 95 (L) 104 CO2 22 - 30 mmol/L 23 19 (L) 27 23 Anion Gap 9 - 18 mmol/L 12 15 10 11 ALT 7 - 38 U/L 15 14 10 18 eGFR- >60 >60 eGFR-All Other Races . >60 >60 eGFR >=60 mL/min/1.73mA? 86 108 Cholesterol, Total <200 mg/dL 161 146 Triglyceride <150 mg/dL 171 (H) 187 (H) HDL Cholesterol >39 mg/dL 23 (L) 23 (L) LDL Cholesterol <100 mg/dL 104 (H) 86 Non HDL Cholesterol <130 mg/dL 138 (H) 123 Fasting Time hrs 10 Unknown VLDL Cholesterol <30 mg/dL 34 (H) 37 (H) TC:HDL Ratio <5.10 7.00 (H) 6.35 (H) LDL:HDL Ratio <2.54 4.52 (H) 3.74 (H) Last 3 Encounter BP Readings: Date: BP: 10/11/2022 146/80 06/28/2022 128/76 04/23/2022 116/80 Last 2 Encounter Wt Readings: Date: Wt: 10/11/2022 91.9 kg (202 lb 9.6 oz) 06/28/2022 89.4 kg (197 lb) HISTORIES FAMILY HISTORY Problem Relation Age of Onset Heart Mother Diabetes Mother Hypertension Mother Arthritis Mother Heart Father Arthritis Father Cancer Maternal Grandmother stomach cancer. PAST MEDICAL HISTORY Diagnosis Date Anxiety 12/29/2012 Arrhythmia Calculus of gallbladder with other cholecystitis, without mention of obstruction Chest pain in adult 05/01/2019 05/01/2019 ER to hosp admit for chest pain: negative serial troponins. EKG negative. No stress testing. Resolved. Diabetes (HCC) Hypertension PAST SURGICAL HISTORY Procedure Laterality Date DELIVERY ONLY , low transverse x2 INSERTION OF IUD 03/09/2013 LAPAROSCOPY SURG CHOLECYSTECTOMY 10/03/08 LAPAROSCOPY SURG CHOLECYSTOENETEROSTOMY 10/04/08 LIG/TRNSXJ FLP TUBE ABDL/VAG APPR UNI/BI Tubal ligation Social History Tobacco Use Smoking status: Every Day Packs/day: 0.50 Years: 20.00 Pack years: 10.00 Types: Cigarettes Smokeless tobacco: Never Substance Use Topics Alcohol use: Yes Comment: occ Drug use: No ACTIVE PROBLEM LIST Essential Hypertension Backache, Unspecified Anxiety Brachial Plexus Lesions Type 2 Diabetes Mellitus With Hyperglycemia, With Long-Term Current Use of Insulin (Hcc) Reflex Sympathetic Dystrophy Neuropathic Pain Rsd Lower Limb Lupus (Hcc) Fibromyalgia 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 2 Each 2 empaglifl (more content not included)... [facility] 09-23-2022 Miscellaneous Notes Spoke to nurse listed below since Truliicty was picked up and PA was not needed nothing more we can do. Nurse advised patient does not want to take Truliicty wanted to try an get ozempic pushed through for approval. In note all documentation has is Trulicity hurt and no reason why amaryl wasn't tolerated. Tried calling patient due to needing document of side effects and intolerance for medication so it can be listed in allergies to be supported. Also wanted to advise she would need to do 120 days of Tradjenta since never tried. Patient did not answer and voicemail was full Mag Alejandro Ma Phoned pt, she states she did pick Trulicity up from the pharmacy but has not used it yet. She states she had tried it in the past but it hurt when she used it. She had also tried amaryl in the past, unsure why it was stopped but didn't recall any side effects or issues with it. She has not tried Tradjenta. Alejandro Bates LPN Attempted to reach patient and voicemail is full. Number still states disconnected. Looks like MyChart is recently logged into will send message. TC to pt, reached recording that states this number has been changed, disconnected or no longer in service. Alejandro Bates LPN Trial covered Trulicity 0.25mg SC weekly Very important! Please instruct to read pharmacy provided literature on risks and administration: as with most medications there are potentially serious side effects which are unlikely but I want to make sure they feel this medication is right for them ([facility] initiative shared decision making). Eat low carb on day of injection (meat, dairy, eggs, above ground veggies,seeds, nuts, berries) Please notify me of any concerns. The following approved medication requests have been transmitted electronically. Requested Prescriptions Signed Prescriptions Disp Refills dulaglutide (TRULICITY) 0.75 mg/0.5 mL pen injector 4 Each 1 Sig: Inject 0.75 mg subcutaneously one time a week. Inject dose once per week. Discard Pen After Authorizing Provider: Michael ORTEGA PA-C Called to check on PA status through [employer] which states denied. [employer] advised will not cover unless 120 days or more of tried formulary options Truliicty, amaryl, tradjenta are tried Mag Alejandro Ma Prior Authorization has been completed online at [employer] for ANNITA, will await response. [id number] Please keep encounter open until final decision has been received and documented from insurance company. Mag Alejandro MA documented in this encounter [facility] 09-22-2022 Miscellaneous Notes Patient phones requesting refills as follows: Requested Prescriptions Pending Prescriptions Disp Refills flash glucose sensor (FREESTYLE ANA 2 SENSOR) kit 2 Each 2 Si Each three times daily as needed. empagliflozin (JARDIANCE) 10 mg tablet 30 tablet 0 Sig: Take 1 tablet by mouth once daily. Take 1 tablet once daily in the morning Please review and advise. Alejandro Bates LPN documented in this encounter [facility] 07-21-2022 Miscellaneous Notes Patient has been identified by name and date of : Yes, Provider Date Time Patient phones for refill(s): Requested Prescriptions Pending Prescriptions Disp Refills empagliflozin (JARDIANCE) 10 mg tablet 30 tablet 0 Sig: Take 1 tablet by mouth once daily. Take 1 tablet once daily in the morning Date of last office visit with pcp: Date of last office visit in primary care: Last 2 Encounter Wt Readings: Date: Wt: 06/28/2022 89.4 kg (197 lb) 04/23/2022 90.3 kg (199 lb) Previous labs/tests for medication: Diabetes: Hemoglobin A1C (%) Date Value 04/27/2022 10.0 07/03/2020 10.5 03/29/2020 10.6 Please advise. Thank you. Margy M Lentine, RN documented in this encounter [facility] 06-29-2022 Note HNO ID: [id number] Author: Kaya Maldonado RT(R) Service: Radiology Author Type: Technologist Type: Progress Notes Filed: 06/29/2022 3:48 PM Note Text: Radiology Service Progress Note PATIENT NAME: Ezio Nielson DATE OF SERVICE: June 29, 2022 TIME: 3:40 PM PATIENT IDENTITY VERIFICATION COMPLETED USING TWO (2) IDENTIFIERS: Name and Date of confirmed by patient verbally. FALL SCREENING: Has the patient had 2 falls in the last year or 1 fall with injury or currently using an Ambulatory Assistive Device (Walker, Cane, Wheelchair, Crutches, etc.)? No PATIENT GENDER DATA: Female. status: : No status: NO. PATIENT RELEVANT IMPLANT DATA REVIEWED: Yes RADIOLOGY DEPARTMENT: General X-ray: Exam(s) Completed: Chest X-Ray PERIPHERAL IV DATA: Not applicable SIGNED BY: RT Melody(R) June 29, 2022 3:40 PM [facility] 06-29-2022 Miscellaneous Notes Spoke with pt and information listed below given. Pt verbalizes understanding. Pt will come in to get done. Hermelinda Thurston LPN Attempted to contact patient, no answer and VM full. e[employer] message sent. Monique Bright MA Please have her come in to repeat CXR- orders placed. Thanks, Ron Ortega PA-C documented in this encounter [facility] 06-29-2022 Miscellaneous Notes 9:30a.m BS reading 204. Last meal around 1:30a.michael Garcia documented in this encounter [facility] 06-28-2022 Note HNO ID: [id number] Author: Michael Ortega PA-C Service: ? Author Type: Physician Laundry Superintendent Type: Progress Notes Filed: 06/28/2022 6:57 PM Note Text: 41 year old female with c/o whole body aches like I have the flu again . Cough, headache, body aches. Hasn't checked temperature. Cough is non-productive. No sinus congestion, pressure. No chest discomfort. Lays in bed all day, takes care of daughter: about as much as she can do. 06/22/2022 PFT, DLCO, Lung volumes/ pulm Dr. Jakob Wong: Interpretation: Forced expiration spirometry shows a moderately severe large airways obstructive ventilatory defect with an FEV1 of 50% predicted. There is no significant bronchodilator response by strict ATS criteria. Spirograms are of good quality and plateau slowly, indicating slowly emptying areas of the lungs. The respiratory flow volume loop shows decreased expiratory flow rates at all lung volumes consistent with airway obstruction. Lung volumes by body plethysmography show a normal total lung capacity at 4.16 L, 86% predicted. FRC and RV are elevated out of proportion. Lung volume measurements are consistent with air- trapping. Diffusion capacity by carbon monoxide is severely decreased at 21% predicted. The airway resistance is elevated. No previous pulmonary function tests were available for review. Impression: Irreversible moderately severe large airways obstructive ventilatory defect, resulting in air trapping, and a disproportionate reduction in diffusion capacity. Patient did have significant difficulty with testing 04/29/2022 chest x-ray [facility]: Persistent infiltration right lower lobe with a small right pleural effusion. This is compared to prior study. Persistent patchy infiltrate in left lower lobe although there have been improvements compared to prior study. Right leg hurts medial upper thigh with walking. No known activity or over use. Noted while walking 6 months and suddenly hurt really bad. No numbness, tingling, loss of strength. Has tried nothing specific to help. Last night blood sugar was 185, once yesterday was 97. Sleeps all the time Diabetes Mellitus Type 2: Current medications: Jardiance 10 mg daily Insulin glargine 30 units nightly Metformin ER 1000 mg twice daily Semaglutide 0.25 mg subcu weekly Taking medication as directed consistently? Yes Medication side effects: Medical Issues / Complications: hypertension and hyperlipidemia Checking blood sugars at home? Yes. Didn't bring readings or meter. Watching diet? Yes Physical Activity: Sedentary Hypoglycemic spells? No Any visual disturbance? No Chest pain? No New numbness, tingling or loss of sensation? Yes Any recent foot problems, sores or rashes? No Any recent or sudden weight loss? No Change in urination? No. If yes: Any recent illness? No Last eye exam: up to date. Last foot exam: up to date. HBA1C: Hemoglobin A1C (%) Date Value 04/27/2022 10.0 07/03/2020 10.5 03/29/2020 10.6 ) CMP: Glucose 494 04/27/2022 BUN 12 04/27/2022 Creatinine 0.87 04/27/2022 Sodium 132 04/27/2022 Potassium 4.9 04/27/2022 Chloride 95 04/27/2022 CO2 27 04/27/2022 Protein, Total 8.3 04/27/2022 Albumin 2.9 04/27/2022 Calcium 9.5 04/27/2022 Alkaline Phosphatase 208 04/27/2022 Bilirubin, Total 0.2 04/27/2022 AST 16 04/27/2022 ALT 10 04/27/2022 Last 2 Encounter Wt Readings: Date: Wt: 06/28/2022 89.4 kg (197 lb) 04/23/2022 90.3 kg (199 lb) HISTORIES FAMILY HISTORY Problem Relation Age of Onset Heart Mother Diabetes Mother Hypertension Mother Arthritis Mother Heart Father Arthritis Father Cancer Maternal Grandmother stomach cancer. PAST MEDICAL HISTORY Diagnosis Date Anxiety 12/29/2012 Arrhythmia Calculus of gallbladder with other cholecystitis, without mention of obstruction Chest pain in adult 05/01/2019 05/01/2019 ER to hosp admit for chest pain: negative serial troponins. EKG negative. No stress testing. Resolved. Diabetes (HCC) Hypertension PAST SURGICAL HISTORY Procedure Laterality Date DELIVERY ONLY , low transverse x2 INSERTION OF IUD 03/09/2013 LAPAROSCOPY SURG CHOLECYSTECTOMY 10/03/08 LAPAROSCOPY SURG CHOLECYSTOENETEROSTOMY 10/04/08 LIG/TRNSXJ FLP TUBE ABDL/VAG APPR UNI/BI Tubal ligation Social History Tobacco Use Smoking status: Every Day Packs/day: 0.50 Years: 20.00 Pack years: 10.00 Types: Cigarettes Smokeless tobacco: Never Substance Use Topics Alcohol use: Yes Comment: occ Drug use: No ACTIVE PROBLEM LIST Essential Hypertension Backache, Unspecified Anxiety Brachial Plexus Lesions Type 2 Diabetes Mellitus With Hyperglycemia, With Long-Term Current Use of Insulin (Hcc) Reflex Sympathetic Dystrophy Neuropathic Pain Rsd Lower Limb Lupus (Hcc) Fibromyalgia 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 [facility] 06-28-2022 Instructions Michael Ortega PA-C - 06/28/2022 3:26 PM EST Check blood sugars four times a day before meals and at bedtime x 1 week and send me results. Drink 64oz no caffeinated, non-alcoholic fluids daily. Taper prednisone as directed: call or mychart progress in 5 days documented in this encounter [facility] 06-28-2022 History of Present illness Narrative 41 year old female with c/o whole body aches like I have the flu again . Cough, headache, body aches. Hasn't checked temperature. Cough is non-productive. No sinus congestion, pressure. No chest discomfort. Lays in bed all day, takes care of daughter: about as much as she can do. 06/22/2022 PFT, DLCO, Lung volumes/ pulm Dr. Jakob Wong: Interpretation: Forced expiration spirometry shows a moderately severe large airways obstructive ventilatory defect with an FEV1 of 50% predicted. There is no significant bronchodilator response by strict ATS criteria. Spirograms are of good quality and plateau slowly, indicating slowly emptying areas of the lungs. The respiratory flow volume loop shows decreased expiratory flow rates at all lung volumes consistent with airway obstruction. Lung volumes by body plethysmography show a normal total lung capacity at 4.16 L, 86% predicted. FRC and RV are elevated out of proportion. Lung volume measurements are consistent with air- trapping. Diffusion capacity by carbon monoxide is severely decreased at 21% predicted. The airway resistance is elevated. No previous pulmonary function tests were available for review. Impression: Irreversible moderately severe large airways obstructive ventilatory defect, resulting in air trapping, and a disproportionate reduction in diffusion capacity. Patient did have significant difficulty with testing 04/29/2022 chest x-ray [facility]: Persistent infiltration right lower lobe with a small right pleural effusion. This is compared to prior study. Persistent patchy infiltrate in left lower lobe although there have been improvements compared to prior study. Right leg hurts medial upper thigh with walking. No known activity or over use. Noted while walking 6 months and suddenly hurt really bad. No numbness, tingling, loss of strength. Has tried nothing specific to help. Last night blood sugar was 185, once yesterday was 97. Sleeps all the time Diabetes Mellitus Type 2: Current medications: Jardiance 10 mg daily Insulin glargine 30 units nightly Metformin ER 1000 mg twice daily Semaglutide 0.25 mg subcu weekly Taking medication as directed consistently? Yes Medication side effects: Medical Issues / Complications: hypertension and hyperlipidemia Checking blood sugars at home? Yes. Didn't bring readings or meter. Watching diet? Yes Physical Activity: Sedentary Hypoglycemic spells? No Any visual disturbance? No Chest pain? No New numbness, tingling or loss of sensation? Yes Any recent foot problems, sores or rashes? No Any recent or sudden weight loss? No Change in urination? No. If yes: Any recent illness? No Last eye exam: up to date. Last foot exam: up to date. HBA1C: Hemoglobin A1C (%) Date Value 04/27/2022 10.0 07/03/2020 10.5 03/29/2020 10.6 ) CMP: Glucose 494 04/27/2022 BUN 12 04/27/2022 Creatinine 0.87 04/27/2022 Sodium 132 04/27/2022 Potassium 4.9 04/27/2022 Chloride 95 04/27/2022 CO2 27 04/27/2022 Protein, Total 8.3 04/27/2022 Albumin 2.9 04/27/2022 Calcium 9.5 04/27/2022 Alkaline Phosphatase 208 04/27/2022 Bilirubin, Total 0.2 04/27/2022 AST 16 04/27/2022 ALT 10 04/27/2022 Last 2 Encounter Wt Readings: Date: Wt: 06/28/2022 89.4 kg (197 lb) 04/23/2022 90.3 kg (199 lb) HISTORIES FAMILY HISTORY Problem Relation Age of Onset Heart Mother Diabetes Mother Hypertension Mother Arthritis Mother Heart Father Arthritis Father Cancer Maternal Grandmother stomach cancer. PAST MEDICAL HISTORY Diagnosis Date Anxiety 12/29/2012 Arrhythmia Calculus of gallbladder with other cholecystitis, without mention of obstruction Chest pain in adult 05/01/2019 05/01/2019 ER to hosp admit for chest pain: negative serial troponins. EKG negative. No stress testing. Resolved. Diabetes (HCC) Hypertension PAST SURGICAL HISTORY Procedure Laterality Date DELIVERY ONLY , low transverse x2 INSERTION OF IUD 03/09/2013 LAPAROSCOPY SURG CHOLECYSTECTOMY 10/03/08 LAPAROSCOPY SURG CHOLECYSTOENETEROSTOMY 10/04/08 LIG/TRNSXJ FLP TUBE ABDL/VAG APPR UNI/BI Tubal ligation Social History Tobacco Use Smoking status: Every Day Packs/day: 0.50 Years: 20.00 Pack years: 10.00 Types: Cigarettes Smokeless tobacco: Never Substance Use Topics Alcohol use: Yes Comment: occ Drug use: No ACTIVE PROBLEM LIST Essential Hypertension Backache, Unspecified Anxiety Brachial Plexus Lesions Type 2 Diabetes Mellitus With Hyperglycemia, With Long-Term Current Use of Insulin (Hcc) Reflex Sympathetic Dystrophy Neuropathic Pain Rsd Lower Limb Lupus (Hcc) Fibromyalgia 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 Take 1 tablet once daily in the morning 30 tablet 0 insulin glargine (LANTUS SOLOSTAR U-100 INSULIN) 100 unit/mL (3 mL) Inject 30 Units subcutaneously daily at bedtime. 5 Each 3 flash glucose sensor (FREESTYLE ANA 2 SENSOR) kit 2 Each three times daily as needed. 2 Each 2 semaglutide (OZEMPIC) 0.25 mg or 0.5 mg(2 mg/1.5 mL) pen Inject 0.25 mg subcutaneously one time a week. 4 Each 2 metFORMIN ER (GLUMETZA) 1,000 mg 24 hr tablet Take 1 tablet by mouth twice daily. 180 tablet 0 Insulin Cecil, Disposable, (SURE-FINE PEN NEEDLES) 31 gauge x / Daily injections 100 Each 0 Lancets lancets Test blood sugar(s) two times daily. Dx: E11.65. Insulin: Yes 100 Each 2 levonorgestrel (MIRENA) 20 mcg/24 hours (7 yrs) 52 mg IUD 1 Each by INTRAUTERINE route continuous. sulfamethoxazole-trimethoprim (BACTRIM DS,SEPTRA DS) 800-160 mg per tablet Take 1 tablet by mouth twice daily. benzonatate (TESSALON PERLE) 100 mg capsule Take by mouth. busPIRone (BUSPAR) 7.5 mg tablet TAKE 1/2 (ONE-HALF) TO 1 (ONE) TABLET BY MOUTH EVERY DAY IN THE MORNING, and TAKE 1 TABLET EVERY NIGHT IN THE EVENING promethazine-codeine 6.25-10 mg/5 mL syrup Take by mouth. fluticasone (FLONASE) 50 mcg/actuation nasal spray Use 2 Sprays in each nostril once daily. Rinse mouth after use. 1 Each 0 estradiol (ESTRACE) 0.01 % (0.1 mg/gram) vaginal cream Use 1 g vaginally once daily. For two weeks then twice weekly for maintenance. (Patient not taking: Reported on 06/28/2022) 42.5 g 4 blood sugar diagnostic (BLOOD GLUCOSE TEST) test strip Test blood sugar(s) 2 times daily. Dx: Type 2 DM - Uncontrolled E11.65 Insulin: Yes 100 Strip 11 No current facility-administered medications for this visit. HEPATITIS B(1 of 3 - 3-dose series) Never done PNEUMOCOCCAL(1 - PCV) Never done BP CONTROLLED (<130/80) Never done MAMMOGRAM Never done PAP TESTING due on 02/07/2021 LDL CHOLESTEROL due on 03/29/2021 INFLUENZA(1) due on 12/24/2021 DEPRESSION ASSESSMENT due on 04/25/2022 EXAM: BP 128/76 Pulse 104 Temp 36.7 C (98 F) Resp 16 Wt 89.4 kg (197 lb) LMP 02/23/2013 SpO2 96% BMI 32.78 kg/m Pleasant obese adult woman sluggish, hanging her head down, responding in monotone responses initially. Seemed to perk up as we started talking and she became more interested in the conversation and laughing. Alert and oriented all spheres. Normal affect and cognition. Speech normal. No deficits to learning or comprehension. Skin warm, dry, pink to lips and nailbeds. Normal turgor. Respirations regular and unlabored. HEENT: NCAT. No scleral icterus or conjunctival injection. TM's clear. Nose and oropharynx free from injection or lesion. Oral membranes moist and pink. No cervical lymph nodes. Thyroid non-tender, no masses, or enlargement. Carotids pulses 2+/4+ without bruits. No JVD with HOB at 30 degrees. Chest is normal shape. Lungs are clear to all burnette with good air exchange through out. HRRR without murmur or gallop. No lifts, heaves, or rubs. Right medial thigh has a tender muscle trigger point which is the localized area of pain of complaint. Extrem: no clubbing or cyanosis. Edema: none. Extremities are warm and pink with prompt capillary refill. ASSESSMENT/PLAN: 1. Pneumonia of right lower lobe due to methicillin resistant Staphylococcus aureus (MRSA) ([facility]) - ICD9: 482.42, ICD10: J15.212 (primary diagnosis) Need a repeat chest x-ray due to her current issues. - XR CHEST 2V FRONTAL/LAT 2. Lupus ([facility]) - ICD9: 710.0, ICD10: M32.9 Has been off medications for some time, Suspect current flare. Prednisone 40mg daily x 5 days and report on progress. Hard to tell if depressed- stopped all psych meds Will need close follow up. Affective traits in communication made visit difficult. - SED RATE WESTERGREN - C-REACTIVE PROTEIN (CRP) - CBC + DIFF - COMP METABOLIC PANEL 3. Type 2 diabetes mellitus with hyperglycemia, with long-term current use of insulin ([facility]) - ICD9: 250.00, 790.29, V58.67, ICD10: E11.65, Z79.4 - Uncontrolled - Continue current medications - Increase semaglutide (Ozempic) - OZEMPIC 0.25 MG OR 0.5 MG (2 MG/1.5 ML) SUBCUTANEOUS PEN INJECTOR - CBC + DIFF - COMP METABOLIC PANEL 4. Fatigue, unspecified type - ICD9: 780.79, ICD10: R53.83 Trial low dose prednisone if inflammatory markers are high. WIll have to keep close track of sugars. She agrees to report any sugars over 250 - SED RATE WESTERGREN - C-REACTIVE PROTEIN (CRP) Will schedule short term followup once inflammatory markers are back. Discussed need to follow up with rheum. Michael Ortega PA-C documented in this encounter [facility] 06-22-2022 Miscellaneous Notes Due for follow-up. Script sent. Due for an appointment. Please let patient know. Marii Pagan [email or web address].[email or web address] Patient phones requesting refills as follows: Requested Prescriptions Pending Prescriptions Disp Refills empagliflozin (JARDIANCE) 10 mg tablet 30 tablet 0 Sig: Take 1 tablet by mouth once daily. Take 1 tablet once daily in the morning STACY 04/23/22 NOV no upcoming appt Please review and advise. Alejandro Bates LPN documented in this encounter [facility] 05-26-2022 Note Patient Outreach (IN [facility]) -------- EZIO NIELSON ([id number]) 1980 F Date Time Provider Department 05/26/22 Michael ORTEGA During your visit today, we recorded the following information about you: Allergies As of Date: 05/26/2022 Noted Allergy Reaction CATS 10/23/2009 4 - Hives 9 - Itching DUST 10/23/2009 Comments: environmental GRASS POLLEN 10/23/2009 9 - Itching ACETAMINOPHEN 01/07/2022 8 - GI Upset CARDIZEM (DILTIAZEM) 07/25/2013 8 - GI Upset 11 - Vomiting PERCOCET (OXYCODONE-ACETAMINOPHEN)06/07/2016 11 - Vomiting ZYRTEC (CETIRIZINE HCL) 08/22/2013 4 - Hives Date Reviewed: 04/15/2022 Reviewed by: Heather Nunn MA - Fully Assessed Visit Diagnosis:Encounter for screening mammogram for breast cancer [Z12.31] Order(s):[facility] SCREENING [[id number]] Order #: [id number] FUTURE Prescriptions as of 05/31/2022 - amoxicillin (POLYMOX, AMOXIL) 500 mg capsule Take 1 capsule by mouth twice daily for 7 days. - semaglutide (OZEMPIC) 0.25 mg or 0.5 mg(2 mg/1.5 mL) pen Inject 0.25 mg subcutaneously one time a week. - empagliflozin (JARDIANCE) 10 mg tablet Take 1 tablet by mouth once daily. Take 1 tablet once daily in the morning - nicotine (NICODERM) 21 mg/24 hr Apply 1 Patch as directed every 24 hours. - sulfamethoxazole-trimethoprim (BACTRIM DS,SEPTRA DS) 800-160 mg per tablet Take 1 tablet by mouth twice daily. - benzonatate (TESSALON PERLE) 100 mg capsule Take by mouth. - busPIRone (BUSPAR) 7.5 mg tablet TAKE 1/2 (ONE-HALF) TO 1 (ONE) TABLET BY MOUTH EVERY DAY IN THE MORNING, and TAKE 1 TABLET EVERY NIGHT IN THE EVENING - promethazine-codeine 6.25-10 mg/5 mL syrup Take by mouth. - metFORMIN ER (GLUMETZA) 1,000 mg 24 hr tablet Take 1 tablet by mouth twice daily. - insulin glargine (LANTUS SOLOSTAR U-100 INSULIN) 100 unit/mL (3 mL) Inject 30 Units subcutaneously daily at bedtime. - flash glucose sensor (FREESTYLE ANA 2 SENSOR) kit 2 Each three times daily as needed. - fluticasone (FLONASE) 50 mcg/actuation nasal spray Use 2 Sprays in each nostril once daily. Rinse mouth after use. - estradiol (ESTRACE) 0.01 % (0.1 mg/gram) vaginal cream Use 1 g vaginally once daily. For two weeks then twice weekly for maintenance. - Insulin Cecil, Disposable, (SURE-FINE PEN NEEDLES) 31 gauge x 3/16 Daily injections - blood sugar diagnostic (BLOOD GLUCOSE TEST) test strip Test blood sugar(s) 2 times daily. Dx: Type 2 DM - Uncontrolled E11.65 Insulin: Yes - Lancets lancets Test blood sugar(s) two times daily. Dx: E11.65. Insulin: Yes - levonorgestrel (MIRENA) 20 mcg/24 hours (7 yrs) 52 mg IUD 1 Each by INTRAUTERINE route continuous. Problem List As Of Date 05/26/2022 Noted Resolved Essential hypertension [I10] 01/15/2012 Backache, unspecified [M54.9] 08/14/2012 Anxiety [F41.9] 12/29/2012 Brachial plexus lesions [G54.0] 05/09/2013 Chest pain, atypical [R07.89] 06/04/2013 06/07/2016 Type 2 diabetes mellitus with hyperglycemia, wi*04/11/2014 Pain in limb [M79.609] 05/13/2014 06/07/2016 Reflex sympathetic dystrophy [G90.50] 05/13/2014 Neuropathic pain [M79.2] 07/17/2014 RSD lower limb [G90.529] 03/07/2015 Lupus (HCC) [M32.9] 03/07/2015 Fibromyalgia [M79.7] 03/07/2015 Patellofemoral instability of both knees with p*07/29/2015 Osteoarthritis of right knee [M17.11] 08/08/2015 Pain in right knee [M25.561] 11/07/2015 Dyslipidemia [E78.5] 01/12/2016 10/01/2021 Morbid obesity with BMI of 50.0-59.9, adult (HC*01/12/2016 Tobacco abuse [Z72.0] 01/12/2016 Primary osteoarthritis of right knee [M17.11] 03/16/2017 Chronic pain of right knee [M25.561, G89.29] 03/16/2017 Chest pain in adult [R07.9] 05/01/2019 Mixed hyperlipidemia [E78.2] 10/01/2021 Encounter Status:Closed by SHANKAR PRODUSER on 05/31/22 [facility] 05-04-2022 Miscellaneous Notes Notified of result via Padmini Ortega PA-C documented in this encounter [facility] 04-27-2022 Note HNO ID: [id number] Author: RT Nae(R) Service: Nuclear Medicine Author Type: Technologist Type: Progress Notes Filed: 04/27/2022 9:39 AM Note Text: Radiology Service Progress Note PATIENT NAME: Ezio Nielson DATE OF SERVICE: April 27, 2022 TIME: 9:30 AM PATIENT IDENTITY VERIFICATION COMPLETED USING TWO (2) IDENTIFIERS: Name and Date of confirmed by patient verbally. FALL SCREENING: Has the patient had 2 falls in the last year or 1 fall with injury or currently using an Ambulatory Assistive Device (Walker, Cane, Wheelchair, Crutches, etc.)? No PATIENT GENDER DATA: Female. status: : No status: NO. PATIENT RELEVANT IMPLANT DATA REVIEWED: Not Applicable RADIOLOGY DEPARTMENT: General X-ray: Exam(s) Completed: Chest X-Ray PERIPHERAL IV DATA: Not applicable SIGNED BY: RT Nae(R) April 27, 2022 9:30 AM [facility] 04-23-2022 Note HNO ID: [id number] Author: Michael Ortega PA-C Service: ? Author Type: Physician Laundry Superintendent Type: Progress Notes Filed: 04/23/2022 6:03 PM Note Text: 41 year old female with c/o hospital discharge follow up Hospital admission discharge follow-up: Date of admission 04/07/2022 Date of discharge 04/12/2022 Discharge diagnoses: 1. Community-acquired pneumonia due to methicillin-resistant staph aureus 2. Acute respiratory failure with hypoxemia 04/02/2022 presented to [facility] emergency department with complaint of 3 to 4 days with headache, congestion, sore throat and cough with muscle aches and fatigue. Vital signs: 98.0 F-95-16-127/80-97% RA. Exam demonstrated nasal mucosa hyperemic and boggy with enlarged inferior turbinates, cobblestoning in the posterior pharynx with sinus drainage Chest x-ray demonstrated no evidence of acute pulmonary disease Rapid swab positive for influenza A Patient was discharged on prescription for Tamiflu 75 mg p.o. twice daily for 5 days, 40 mg of prednisone daily for 5 days, promethazine with codeine 6.25-10 mg per 5 mL syrup, 140 mL 04/07/2022 Returned to the [facility] emergency department with complaint of upper respiratory infection over 10 days with known positive influenza A, using [id number] medications but progressively short of breath coughing up yellow-green sputum over the last few days. States she quit smoking 5 days prior. Increased cough, shortness of breath, mild dyspnea on exertion. Exam: Vital signs 96.8 K-239-78-153/88-92% RA Documented as no acute tachypnea but diffuse rhonchi with occasional expiratory wheezes and chest. Lab abnormals: WBC 17.6 with Ig percent 2.7, absolute neutrophil 14.7, otherwise normal. Sodium 134, glucose 293, BUN/creatinine ratio 22.5, ALP 144, globulin 5.8, albumin 1.9. Lactate was within normal limits. Chest x-ray: Large volume right subpulmonic fluid causing compressive atelectasis right lower lobe and lateral segment of the right middle lobe new since 04/01/2022, suspicious small ill-defined confluent infiltrate in the left central lung base new since 04/01/2022. EKG demonstrated sinus tachycardia at [address] or T wave changes, no evidence of STEMI. Treatment: Patient was given prednisone, duo nebs, 1 L of normal saline IV, morphine for chest discomfort. Admitted under Dr. Cassie Elmore: Assessment and plan: 1. Influenza A 2. Pneumonia: Admit to PCU, IV Levaquin, titrate O2 to sats greater than 90%, breathing treatment bronchodilators, trend CBC and BMP, sputum culture. 3. Type 2 diabetes: Continue Lantus, insulin on sliding scale 4. Hypertension: Continue carvedilol 5. History of lupus: On prednisone Hospital course: Admitted to PCU. Initially required 3 L of O2 to maintain O2 sat above 92% but they were able to wean over the hospital stay. Ambulating in her room. T 04/08/2022 CTA chest: Dense consolidation involving lateral aspect of right middle lobe and right lower lobe with patchy focal and traits in both lungs, enlargement of right hilar lymph node: Follow-up recommended, no significant pleural effusion seen. 04/09/2022 echocardiogram: LV size and LV SF WNL, EF 55 to 60%. RV size and RV SF WNL. LA and RA normal size, intact atrial septum. Mitral valve with thickened or calcified chordae. Tricuspid valve normal, mild TVi Aortic valve: Normal pulmonic valve not well visualized Great vessels: Normal aortic root. No pericardial effusion. Additional labs: 04/07/2022 urine culture final no growth. 04/08/2022 Legionella urine antigen negative, streptococcal pneumoniae antigen negative. 04/11/2022 respiratory culture final: Organism 1: Staph aureus 3+, organism 2 alphahemolytic Streptococcus 2+. 04/10/2022 ABG: pH 7.44-PCO2 29.2-PO2 69-HCO3 19.7-PE -5-total CO2 21-SaO2 95% 04/12/2022 blood culture no growth 04/12/2022 Vanco trough 21.1H Discharge labs 04/12/2022: CBC: WBC 12.6-Hgb 10.9-HCT 32.3-PLT 392, Ig percent 1.4, absolute neutrophil 10.3 Chemistries GLU 184-CRE 0.56, ECRCL 118.96-BUN 13-NA 134-K3.6-CL 104-CO2 24-6 Medication reconciliation: New prescriptions: Bactrim DS 800-160 mg 1 tablet p.o. twice daily #14/0 Cephalexin 500 mg 3 times daily #20/0 Benzonatate 100 mg capsule 3 times daily #21/0 Continue medicines: Insulin 30 units subcu at bedtime Metformin 1000 mg twice daily with meals Venlafaxine 37.5 mg SR daily No discontinued medications. No specified particular follow-up. Referral/follow-up: Carmine Saul, DO 4 to 6 weeks With me. Current status: Completed discharge prescriptions Feels awful. Severe fatigue, persistent cough, shortness of breath with exertion. Tried to do some things around the house yesterday, spiked a temp of 100.4F Cough is occasionally productive of thick foul tasting sputum. Continues headache, nasal congestion No nausea vomiting or d (more content not included)... [facility] 04-23-2022 History of Present illness Narrative 41 year old female with c/o hospital discharge follow up Hospital admission discharge follow-up: Date of admission 04/07/2022 Date of discharge 04/12/2022 Discharge diagnoses: 1. Community-acquired pneumonia due to methicillin-resistant staph aureus 2. Acute respiratory failure with hypoxemia 04/02/2022 presented to [facility] emergency department with complaint of 3 to 4 days with headache, congestion, sore throat and cough with muscle aches and fatigue. Vital signs: 98.0 F-95-16-127/80-97% RA. Exam demonstrated nasal mucosa hyperemic and boggy with enlarged inferior turbinates, cobblestoning in the posterior pharynx with sinus drainage Chest x-ray demonstrated no evidence of acute pulmonary disease Rapid swab positive for influenza A Patient was discharged on prescription for Tamiflu 75 mg p.o. twice daily for 5 days, 40 mg of prednisone daily for 5 days, promethazine with codeine 6.25-10 mg per 5 mL syrup, 140 mL 04/07/2022 Returned to the [facility] emergency department with complaint of upper respiratory infection over 10 days with known positive influenza A, using [id number] medications but progressively short of breath coughing up yellow-green sputum over the last few days. States she quit smoking 5 days prior. Increased cough, shortness of breath, mild dyspnea on exertion. Exam: Vital signs 96.8 V-097-82-153/88-92% RA Documented as no acute tachypnea but diffuse rhonchi with occasional expiratory wheezes and chest. Lab abnormals: WBC 17.6 with Ig percent 2.7, absolute neutrophil 14.7, otherwise normal. Sodium 134, glucose 293, BUN/creatinine ratio 22.5, ALP 144, globulin 5.8, albumin 1.9. Lactate was within normal limits. Chest x-ray: Large volume right subpulmonic fluid causing compressive atelectasis right lower lobe and lateral segment of the right middle lobe new since 04/01/2022, suspicious small ill-defined confluent infiltrate in the left central lung base new since 04/01/2022. EKG demonstrated sinus tachycardia at [address] or T wave changes, no evidence of STEMI. Treatment: Patient was given prednisone, duo nebs, 1 L of normal saline IV, morphine for chest discomfort. Admitted under Dr. Cassie Elmore: Assessment and plan: 1. Influenza A 2. Pneumonia: Admit to PCU, IV Levaquin, titrate O2 to sats greater than 90%, breathing treatment bronchodilators, trend CBC and BMP, sputum culture. 3. Type 2 diabetes: Continue Lantus, insulin on sliding scale 4. Hypertension: Continue carvedilol 5. History of lupus: On prednisone Hospital course: Admitted to PCU. Initially required 3 L of O2 to maintain O2 sat above 92% but they were able to wean over the hospital stay. Ambulating in her room. T 04/08/2022 CTA chest: Dense consolidation involving lateral aspect of right middle lobe and right lower lobe with patchy focal and traits in both lungs, enlargement of right hilar lymph node: Follow-up recommended, no significant pleural effusion seen. 04/09/2022 echocardiogram: LV size and LV SF WNL, EF 55 to 60%. RV size and RV SF WNL. LA and RA normal size, intact atrial septum. Mitral valve with thickened or calcified chordae. Tricuspid valve normal, mild TVi Aortic valve: Normal pulmonic valve not well visualized Great vessels: Normal aortic root. No pericardial effusion. Additional labs: 04/07/2022 urine culture final no growth. 04/08/2022 Legionella urine antigen negative, streptococcal pneumoniae antigen negative. 04/11/2022 respiratory culture final: Organism 1: Staph aureus 3+, organism 2 alphahemolytic Streptococcus 2+. 04/10/2022 ABG: pH 7.44-PCO2 29.2-PO2 69-HCO3 19.7-PE -5-total CO2 21-SaO2 95% 04/12/2022 blood culture no growth 04/12/2022 Vanco trough 21.1H Discharge labs 04/12/2022: CBC: WBC 12.6-Hgb 10.9-HCT 32.3-PLT 392, Ig percent 1.4, absolute neutrophil 10.3 Chemistries GLU 184-CRE 0.56, ECRCL 118.96-BUN 13-NA 134-K3.6-CL 104-CO2 24-6 Medication reconciliation: New prescriptions: Bactrim DS 800-160 mg 1 tablet p.o. twice daily #14/0 Cephalexin 500 mg 3 times daily #20/0 Benzonatate 100 mg capsule 3 times daily #21/0 Continue medicines: Insulin 30 units subcu at bedtime Metformin 1000 mg twice daily with meals Venlafaxine 37.5 mg SR daily No discontinued medications. No specified particular follow-up. Referral/follow-up: Carmine Saul, DO 4 to 6 weeks With me. Current status: Completed discharge prescriptions Feels awful. Severe fatigue, persistent cough, shortness of breath with exertion. Tried to do some things around the house yesterday, spiked a temp of 100.4F Cough is occasionally productive of thick foul tasting sputum. Continues headache, nasal congestion No nausea vomiting or diarrhea. Food does not taste right, perversion of taste, patient concerned this is related to the antibiotics he received in the hospital. Has been pushing fluids, trying to get good nutrition. Urinating normally. Resumed smoking after being off 2 weeks: asking for nicotine patches, wants to quit HISTORIES FAMILY HISTORY Problem Relation Age of Onset Heart Mother Diabetes Mother Hypertension Mother Arthritis Mother Heart Father Arthritis Father Cancer Maternal Grandmother stomach cancer. PAST MEDICAL HISTORY Diagnosis Date Anxiety 12/29/2012 Arrhythmia Calculus of gallbladder with other cholecystitis, without mention of obstruction Chest pain in adult 05/01/2019 05/01/2019 ER to hosp admit for chest pain: negative serial troponins. EKG negative. No stress testing. Resolved. Diabetes (HCC) Hypertension PAST SURGICAL HISTORY Procedure Laterality Date DELIVERY ONLY , low transverse x2 INSERTION OF IUD 03/09/2013 LAPAROSCOPY SURG CHOLECYSTECTOMY 10/03/08 LAPAROSCOPY SURG CHOLECYSTOENETEROSTOMY 10/04/08 LIG/TRNSXJ FLP TUBE ABDL/VAG APPR UNI/BI Tubal ligation Social History Tobacco Use Smoking status: Every Day Packs/day: 0.50 Years: 20.00 Pack years: 10.00 Types: Cigarettes Smokeless tobacco: Never Substance Use Topics Alcohol use: Yes Comment: occ Drug use: No ACTIVE PROBLEM LIST Essential Hypertension Backache, Unspecified Anxiety Brachial Plexus Lesions Type 2 Diabetes Mellitus With Hyperglycemia, With Long-Term Current Use of Insulin ([facility]) Reflex Sympathetic Dystrophy Neuropathic Pain Rsd Lower Limb Lupus (Hcc) Fibromyalgia 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 benzonatate (TESSALON PERLE) 100 mg capsule Take by mouth. busPIRone (BUSPAR) 7.5 mg tablet TAKE 1/2 (ONE-HALF) TO 1 (ONE) TABLET BY MOUTH EVERY DAY IN THE MORNING, and TAKE 1 TABLET EVERY NIGHT IN THE EVENING promethazine-codeine 6.25-10 mg/5 mL syrup Take by mouth. clotrimazole (MYCELEX) 10 mg jayshree Use 1 Jayshree as instructed five times daily for 14 days. 70 tablet 0 insulin glargine (LANTUS SOLOSTAR U-100 INSULIN) 100 unit/mL (3 mL) Inject 30 Units subcutaneously daily at bedtime. 5 Each 3 flash glucose sensor (FREESTYLE ANA 2 SENSOR) kit 2 Each three times daily as needed. 2 Each 2 Insulin Cecil, Disposable, (SURE-FINE PEN NEEDLES) 31 gauge x 3/16 Daily injections 100 Each 0 blood sugar diagnostic (BLOOD GLUCOSE TEST) test strip Test blood sugar(s) 2 times daily. Dx: Type 2 DM - Uncontrolled E11.65 Insulin: Yes 100 Strip 11 Lancets lancets Test blood sugar(s) two times daily. Dx: E11.65. Insulin: Yes 100 Each 2 levonorgestrel (MIRENA) 20 mcg/24 hours (7 yrs) 52 mg IUD 1 Each by INTRAUTERINE route continuous. nicotine (NICODERM) 21 mg/24 hr Apply 1 Patch as directed every 24 hours. 30 Patch 1 metFORMIN ER (GLUMETZA) 1,000 mg 24 hr tablet Take 1 tablet by mouth twice daily. 180 tablet 0 fluticasone (FLONASE) 50 mcg/actuation nasal spray Use 2 Sprays in each nostril once daily. Rinse mouth after use. 1 Each 0 estradiol (ESTRACE) 0.01 % (0.1 mg/gram) vaginal cream Use 1 g vaginally once daily. For two weeks then twice weekly for maintenance. 42.5 g 4 No current facility-administered medications for this visit. HEPATITIS B(1 of 3 - 3-dose series) Never done PNEUMOCOCCAL(1 - PCV) Never done BP CONTROLLED (<130/80) Never done URINE ALBUMIN:CREATININE RATIO due on 07/26/2018 MAMMOGRAM Never done HBA1C due on 10/03/2020 PAP TESTING due on 02/07/2021 LDL CHOLESTEROL due on 03/29/2021 INFLUENZA(1) due on 12/24/2021 EXAM: BP 116/80 Pulse 110 Temp 36.9 C (98.4 F) (Left Tympanic) Resp 20 Wt 90.3 kg (199 lb) LMP 08/07/2013 SpO2 95% BMI 33.12 kg/m Pleasant overweight adult woman in no acute distress. Alert and oriented all spheres. Normal affect and cognition. Speech normal. No deficits to learning or comprehension. Skin warm, dry, pink to lips and nailbeds. Normal turgor. Respirations regular and unlabored. Speaking easily and boisterously in full sentences. .HEENT: NCAT. No scleral icterus or conjunctival injection. TM's clear. Nose and oropharynx free from injection or lesion. Oral membranes moist and pink. No cervical lymph nodes. Thyroid non-tender, no masses, or enlargement. Carotids pulses 2+/4+ without bruits. No JVD with HOB at 30 degrees. Chest is normal shape. Lungs are clear to all burnette with good air exchange through out. HRRR without murmur or gallop. No lifts, heaves, or rubs. Abdomen: active bowel sounds throughout, soft, nontender, no masses or organomegaly. No CVAT. Extrem: no clubbing or cyanosis. Edema: none. Extremities are warm and pink with prompt capillary refill. ASSESSMENT/PLAN: 1. Pneumonia of right lower lobe due to methicillin resistant Staphylococcus aureus (MRSA) ([facility]) - ICD9: 482.42, ICD10: J15.212 (primary diagnosis) Patient has had recurrent low-grade fever yesterday with some sense of decline, will proceed with chest x-ray and follow-up CBC. - XR CHEST 2V FRONTAL/LAT - CBC + DIFF 2. Hospital discharge follow-up - ICD9: V67.59, ICD10: Z09 Discharge tasks completed, meds reconciled 3. Influenza A - ICD9: 487.1, ICD10: J10.1 Resolved 4. Type 2 diabetes mellitus with hyperglycemia, with long-term current use of insulin ([facility]) - ICD9: 250.00, 790.29, V58.67, ICD10: E11.65, Z79.4 uncontrolled - Continue current medications - CBC + DIFF - COMP METABOLIC PANEL - ALBUMIN/CREAT RATIO RND UR - HGBA1C 5. Adenopathy, hilar right - ICD9: 785.6, ICD10: R59.0 Follow in 3 months with imaging 6. Essential hypertension - ICD9: 401.9, ICD10: I10 - good control - Continue current medication(s) - Recommended regular aerobic exercise. - Recommend home blood pressure monitoring, to bring results in on next visit - Goal of BP <130/80 - COMP METABOLIC PANEL 7. Tobacco abuse - ICD9: 305.1, ICD10: Z72.0 - Cessation encouraged. She wants to stay of cigarettes - Physiologic and physical aspects of tobacco addiction as well as strategies for quitting were discussed. - Counseling was given focusing on the harmful effects of this addiction especially given the patient's medical condition(s) which will be worsened because of the chemicals in tobacco. - NICOTINE 21 MG/24 HR DAILY TRANSDERMAL PATCH Michael Ortega PA-C Some of this note may have been copied and pasted for the purpose of history context and comparison. documented in this encounter [facility] 04-22-2022 Miscellaneous Notes Both listed contacts inactive, will send letter to listed address. Heather Nunn MA Attempted to contact with voice recording stating that customer is not available to try again later. Becky Douglass LPN Please notify that fungal culture became positive, continue treatment, f/u if s/s persist documented in this encounter [facility] 04-20-2022 Miscellaneous Notes 3rd attempt to reach pt without success. Still unable to reach patient.Evelyn Robles LPN Unable to reach patient. Mailbox full/Mailbox not set up/ Number incorrect. Please try again later. Ezio Quevedo No fungal growth after 3 days. Will call again if culture changes. documented in this encounter [facility] 04-15-2022 Note HNO ID: [id number] Author: Ines Ryan APRN.[employer] Service: ? Author Type: Nurse Practitioner Type: Progress Notes Filed: 04/15/2022 1:31 PM Note Text: Subjective The history is provided by the patient. No doll dresser was used. HPI Ezio Nielson is a 41 year old female who presents today for CC of white spots on tongue for 4 days, along with burning sensation in mouth and sore throat. She was hospitalized the beginning of the month for pneumonia on IV antibiotics. No medications or treatment BP 142/84 Pulse 99 Temp 36.4 ?C (97.6 ?F) Resp 20 Wt 94 kg (207 lb 3.2 oz) LMP 08/07/2013 SpO2 95% BMI 34.48 kg/m? Social History Tobacco Use Smoking status: Every Day Packs/day: 0.50 Years: 20.00 Pack years: 10.00 Types: Cigarettes Smokeless tobacco: Never Substance Use Topics Alcohol use: Yes Comment: occ Drug use: No PAST MEDICAL HISTORY Diagnosis Date Anxiety 12/29/2012 Arrhythmia Calculus of gallbladder with other cholecystitis, without mention of obstruction Chest pain in adult 05/01/2019 05/01/2019 ER to hosp admit for chest pain: negative serial troponins. EKG negative. No stress testing. Resolved. Diabetes (HCC) Hypertension I have confirmed and edited as necessary, the [facility] Review of Systems Constitutional: Negative for chills and fever. HENT: White patches on tongue Musculoskeletal: Negative for joint pain and myalgias. Skin: Negative for itching and rash. All other systems reviewed and are negative. Objective Physical Exam Vitals and nursing note reviewed. HENT: Nose: Nose normal. Mouth/Throat: Mouth: Mucous membranes are moist. Tongue: Lesions (see marked area) present. Palate: No mass and lesions. Pulmonary: Effort: Pulmonary effort is normal. Skin: General: Skin is warm and dry. Neurological: Mental Status: She is alert and oriented to person, place, and time. Psychiatric: Mood and Affect: Affect normal. ASSESSMENT/PLAN: 1. Tongue plaque - ICD9: 528.6, ICD10: K13.29 Appears to be thrush Cultures done Start on clotrimazole jayshree Follow up with PCP as needed - FUNGAL SCREEN Diagnosis and treatment plan were discussed and questions were answered to the patient's satisfaction. Pt acknowledged understanding of concepts and follow up plan. Specific signs and symptoms that would indicate the need for higher level of care were discussed in detail warranting prompt ER evaluation. Ines Ryan APRN.[facility] 04-15-2022 History of Present illness Narrative Images from the original note were not included. Subjective The history is provided by the patient. No doll dresser was used. RITO Nielson is a 41 year old female who presents today for CC of white spots on tongue for 4 days, along with burning sensation in mouth and sore throat. She was hospitalized the beginning of the month for pneumonia on IV antibiotics. No medications or treatment BP 142/84 Pulse 99 Temp 36.4 C (97.6 F) Resp 20 Wt 94 kg (207 lb 3.2 oz) LMP 08/07/2013 SpO2 95% BMI 34.48 kg/m Social History Tobacco Use Smoking status: Every Day Packs/day: 0.50 Years: 20.00 Pack years: 10.00 Types: Cigarettes Smokeless tobacco: Never Substance Use Topics Alcohol use: Yes Comment: occ Drug use: No PAST MEDICAL HISTORY Diagnosis Date Anxiety 12/29/2012 Arrhythmia Calculus of gallbladder with other cholecystitis, without mention of obstruction Chest pain in adult 05/01/2019 05/01/2019 ER to hosp admit for chest pain: negative serial troponins. EKG negative. No stress testing. Resolved. Diabetes (HCC) Hypertension I have confirmed and edited as necessary, the [facility] Review of Systems Constitutional: Negative for chills and fever. HENT: White patches on tongue Musculoskeletal: Negative for joint pain and myalgias. Skin: Negative for itching and rash. All other systems reviewed and are negative. Objective Physical Exam Vitals and nursing note reviewed. HENT: Nose: Nose normal. Mouth/Throat: Mouth: Mucous membranes are moist. Tongue: Lesions (see marked area) present. Palate: No mass and lesions. Pulmonary: Effort: Pulmonary effort is normal. Skin: General: Skin is warm and dry. Neurological: Mental Status: She is alert and oriented to person, place, and time. Psychiatric: Mood and Affect: Affect normal. ASSESSMENT/PLAN: 1. Tongue plaque - ICD9: 528.6, ICD10: K13.29 Appears to be thrush Cultures done Start on clotrimazole jayshree Follow up with PCP as needed - FUNGAL SCREEN Diagnosis and treatment plan were discussed and questions were answered to the patient's satisfaction. Pt acknowledged understanding of concepts and follow up plan. Specific signs and symptoms that would indicate the need for higher level of care were discussed in detail warranting prompt ER evaluation. Ines Ryan APRN.[employer] documented in this encounter [facility] 01-11-2022 History of Present illness Narrative Chief Complaint Patient presents with: Follow Up: Med refills needed HPI Ezio Nielson is a 41 year old female who presents here today for Above Complaints. Ezio is an established patient of JUST[facility]. Ezio is a new patient to me today. Concerns today... Appointment with Ron was cancelled. Needs refills of medication since she has been out x 1 week. DM -- Patient reports she is feeling well overall in regards to diabetes Patient's last HgA1C was 10.5 on 07/03/20 -- over 1 year ago. Current regimen: metformin 1000 mg BID and lantus 30 units SQ at bedtime. Tolerating well: Yes Med compliance: Yes Checking sugars: No Signs of hypoglycemia?: Denies Denies polyuria, polydipsia, numbness, tingling or pain in extremities, new or unusual visual symptoms, unintended weight changes, lightheadedness/dizziness, bowel changes/loose stools, chest pain or dyspnea HLD --- Has not had lipid panel checked since 2019. Agreeable to get blood work done today. No current HLD medication regimen. UC visit --- On 01/07/22 d/t urinary frequency and middle ear effusion. Dx with UTI and given macrobid BID x 5 days. Given flonase for middle ear effusion. Today.. Urinary symptoms are completely resolved. L ear still persists with intermittent muffled sounds and congestion. No other URI-symptoms. Past medical history, appointments, medications, allergies reviewed. Previous Medical History PAST MEDICAL HISTORY Diagnosis Date Anxiety 12/29/2012 Arrhythmia Calculus of gallbladder with other cholecystitis, without mention of obstruction Chest pain in adult 05/01/2019 05/01/2019 ER to hosp admit for chest pain: negative serial troponins. EKG negative. No stress testing. Resolved. Diabetes (HCC) Hypertension Previous Surgical History PAST SURGICAL HISTORY Procedure Laterality Date DELIVERY ONLY , low transverse x2 INSERTION OF IUD 03/09/2013 LAPAROSCOPY SURG CHOLECYSTECTOMY 10/03/08 LAPAROSCOPY SURG CHOLECYSTOENETEROSTOMY 10/04/08 LIG/TRNSXJ FLP TUBE ABDL/VAG APPR UNI/BI Tubal ligation Family History FAMILY HISTORY Problem Relation Age of Onset Heart Mother Diabetes Mother Hypertension Mother Arthritis Mother Heart Father Arthritis Father Cancer Maternal Grandmother stomach cancer. Patient Allergies ALLERGIES Allergen Reactions Cats Hives, Itching Dust environmental Grass Pollen Itching Acetaminophen GI Upset Cardizem [Diltiazem] GI Upset, Vomiting Percocet [Oxycodone* Vomiting Zyrtec [Cetirizine * Hives Current Medications Current Outpatient Medications on File Prior to Visit Medication Sig nitrofurantoin monohydrate and macrocrystal (MACROBID) 100 mg capsule Take 1 capsule by mouth twice daily with meals for 5 days. fluticasone (FLONASE) 50 mcg/actuation nasal spray Use 2 Sprays in each nostril once daily. Rinse mouth after use. estradiol (ESTRACE) 0.01 % (0.1 mg/gram) vaginal cream Use 1 g vaginally once daily. For two weeks then twice weekly for maintenance. metFORMIN ER (GLUMETZA) 1,000 mg 24 hr tablet Take 1 tablet by mouth daily with breakfast. (Patient taking differently: Take 1,000 mg by mouth twice daily.) insulin glargine (LANTUS SOLOSTAR U-100 INSULIN) 100 unit/mL (3 mL) Inject 30 Units subcutaneously daily at bedtime. Insulin Cecil, Disposable, (SURE-FINE PEN NEEDLES) 31 gauge x 3/16 Daily injections blood sugar diagnostic (BLOOD GLUCOSE TEST) test strip Test blood sugar(s) 2 times daily. Dx: Type 2 DM - Uncontrolled E11.65 Insulin: Yes Lancets lancets Test blood sugar(s) two times daily. Dx: E11.65. Insulin: Yes levonorgestrel (MIRENA) 20 mcg/24 hours (7 yrs) 52 mg IUD 1 Each by INTRAUTERINE route continuous. No current facility-administered medications on file prior to visit. Social History Social History Tobacco Use Smoking status: Every Day Packs/day: 0.50 Years: 20.00 Pack years: 10.00 Types: Cigarettes Smokeless tobacco: Never Substance Use Topics Alcohol use: Yes Comment: occ Drug use: No REVIEW OF SYSTEMS: as above Reviewed relevant PMHx, PSHx, Social Hx, current medications and allergies. Review of Symptoms REVIEW OF SYSTEMS See HPI. All other systems are negative. EXAM: BP 120/76 Pulse 83 Resp 16 Wt 95.2 kg (209 lb 12.8 oz) LMP 08/07/2013 SpO2 96% BMI 34.91 kg/m General Appearance: Well appearing, alert, in no acute distress, well-hydrated, well nourished.. Skin: Skin color, texture, turgor normal, no suspicious findings: R TM: normal, L TM: bulging Head: Normocephalic, no masses, lesions, tenderness or abnormalities. Back:no pain to palpation of vertebrae, good flexion and extension, good range of motion, no muscle tenderness, reflexes are 2+ and symmetric, motor and sensory appear to be normal, negative SLR test, no evidence of scoliosis Lungs: Lungs clear to auscultation. No wheezing, rhonchi, rales.. Abdomen: Normal abdominal exam, Abdomen soft, non-tender. Bowel sounds normal. No masses, organomegaly. Neurologic: Gait normal. Reflexes normal and symmetric. Sensation grossly intact.. Health Maintenance List HEPATITIS B(1 of 3 - 3-dose series) Never done PNEUMOCOCCAL(1 - PCV) Never done BP CONTROLLED (<130/80) Never done URINE ALBUMIN:CREATININE RATIO due on 07/26/2018 MAMMOGRAM Never done HBA1C due on 10/03/2020 PAP TESTING due on 02/07/2021 LDL CHOLESTEROL due on 03/29/2021 INFLUENZA(1) due on 12/24/2021 DILATED RETINAL EXAM due on 09/23/2022 COVID-19 VACCINE(1) due on 10/01/2022 DIABETIC FOOT EXAM due on 10/01/2022 ANNUAL PCP TEAM CHRONIC DISEASE VISIT due on 10/01/2022 DEPRESSION SCREENING due on 10/01/2022 HPV TESTING due on 02/07/2023 DTAP,TDAP,TD(2 - Td or Tdap) due on 08/14/2023 HEPATITIS C SCREENING Completed HIV SCREENING Completed ASSESSMENT/PLAN: 1. Type 2 diabetes mellitus with hyperglycemia, with long-term current use of insulin (HCC) - ICD9: 250.00, 790.29, V58.67, ICD10: E11.65, Z79.4 The patient is new to me. - Continue current medications - recheck HgA1c and routine blood work --- will discuss medication regimen changes if needed based on this. - Encouraged regular aerobic exercise and weight loss - Discussed diabetic education issues of rat exterminator diabetic complications, hypoglycemic symptoms, hyperglycemic symptoms, diet, medications- side effects and need for compliance, importance of exercise, use and side effects of insulin, importance of appointments with Talent Management Manager, and importance of annual examinations with Opthalmology with patient. - BP goal of <130/80 - LDL goal of <100 - INSULIN GLARGINE (U-100) 100 UNIT/ML (3 ML) SUBCUTANEOUS PEN - HGB A1C - LIPID PANEL BASIC - COMP METABOLIC PANEL - CBC 2. Mixed hyperlipidemia - ICD9: 272.2, ICD10: E78.2 - to be determined upon return of lab results - Encouraged following a low fat, low cholesterol diet. - Discussed the benefits of regular aerobic exercise and weight loss. - Check fasting lipid panel and ALT. - Encouraged following a low carbohydrate, healthy oil intake diet. 3. Recurrent UTI (urinary tract infection) - ICD9: 599.0, ICD10: N39.0 Resolving. Symptoms improved. 4. Middle ear effusion, left - ICD9: 381.4, ICD10: H65.92 No signs of infection. No erythema or irritation or pain. Continue Flonase routinely. RTO if symptoms worsen or do not improve. RTO for routine annual physical exam with PCP team. Prescription instructions reviewed with patient as applicable. Potential red flag symptoms discussed with the patient. Reviewed appropriate action plan to take if red flag symptoms occur. Patient agreeable to treatment plan. Madhuri Gibbs APRN.[facility] [address] [place] [address] documented in this encounter [facility] 10-15-2021 History of Present illness Narrative This note was created using GCW. Subjective Ezio Nielson is a 41 year old female. 41 year old female with PMH of HTN, DM, Fibromyalgia, and Lupus presents with complaints of abscess to scalp. Acute onset 4 days Locates pain left portion of head. States pain is 10/10. unable to sleep at night Denies trauma or injury Denies fever/chills, rash, SOB, or CP Utilized tylenol 1000mg BASTER HAND with no relief Pt states I get these all the time. My sugars have been running high The history is provided by the patient. No doll dresser was used. Abscess This is a new problem. The current episode started in the past 7 days. The problem occurs constantly. The problem has been gradually worsening. Associated symptoms include headaches. Pertinent negatives include no abdominal pain, arthralgias, change in bowel habit, chest pain, chills, congestion, coughing, diaphoresis, fatigue, fever, joint swelling, myalgias, nausea, neck pain, numbness, rash, sore throat, swollen glands, urinary symptoms, vertigo, visual change or vomiting. Nothing aggravates the symptoms. She has tried acetaminophen for the symptoms. The treatment provided no relief. PAST MEDICAL HISTORY Diagnosis Date Anxiety 12/29/2012 Arrhythmia Calculus of gallbladder with other cholecystitis, without mention of obstruction Chest pain in adult 05/01/2019 05/01/2019 ER to hosp admit for chest pain: negative serial troponins. EKG negative. No stress testing. Resolved. Diabetes (HCC) Hypertension PAST SURGICAL HISTORY Procedure Laterality Date DELIVERY ONLY , low transverse x2 INSERTION OF IUD 03/09/2013 LAPAROSCOPY SURG CHOLECYSTECTOMY 10/03/08 LAPAROSCOPY SURG CHOLECYSTOENETEROSTOMY 10/04/08 LIG/TRNSXJ FLP TUBE ABDL/VAG APPR UNI/BI Tubal ligation ALLERGIES Cats, Dust, Grass Pollen, Cardizem [Diltiazem], Percocet [Oxycodone-Acetaminophen], and Zyrtec [Cetirizine Hcl] MEDICATIONS doxycycline monohydrate 100 mg tablet Take 1 tablet by mouth twice daily for 7 days. mupirocin (BACTROBAN) 2 % cream Apply 1 application to affected area three times daily for 10 days. Location: scalp estradiol (ESTRACE) 0.01 % (0.1 mg/gram) vaginal cream Use 1 g vaginally once daily. For two weeks then twice weekly for maintenance. metFORMIN ER (GLUMETZA) 1,000 mg 24 hr tablet Take 1 tablet by mouth daily with breakfast. insulin glargine (LANTUS SOLOSTAR U-100 INSULIN) 100 unit/mL (3 mL) Inject 30 Units subcutaneously daily at bedtime. Insulin Cecil, Disposable, (SURE-FINE PEN NEEDLES) 31 gauge x 3/16 Daily injections blood sugar diagnostic (BLOOD GLUCOSE TEST) test strip Test blood sugar(s) 2 times daily. Dx: Type 2 DM - Uncontrolled E11.65 Insulin: Yes Lancets lancets Test blood sugar(s) two times daily. Dx: E11.65. Insulin: Yes levonorgestrel (MIRENA) 20 mcg/24 hour (5 years) IUD 1 Each by INTRAUTERINE route continuous. FAMILY HISTORY Problem Relation Age of Onset Heart Mother Diabetes Mother Hypertension Mother Arthritis Mother Heart Father Arthritis Father Cancer Maternal Grandmother stomach cancer. Social History Tobacco Use Smoking status: Current Every Day Smoker Packs/day: 0.50 Years: 20.00 Pack years: 10.00 Types: Cigarettes Smokeless tobacco: Never Used Substance Use Topics Alcohol use: Yes Comment: occ Drug use: No Review of Systems Constitutional: Negative for activity change, chills, diaphoresis, fatigue and fever. HENT: Negative for congestion, nosebleeds and sore throat. Eyes: Negative for pain, discharge and itching. Respiratory: Negative for cough, chest tightness and shortness of breath. Cardiovascular: Negative for chest pain. Gastrointestinal: Negative for abdominal pain, change in bowel habit, diarrhea, nausea and vomiting. Endocrine: Negative for cold intolerance and heat intolerance. Genitourinary: Negative for difficulty urinating. Musculoskeletal: Negative for arthralgias, joint swelling, myalgias and neck pain. Skin: Positive for wound. Negative for color change and rash. Draining wound on left scalp Neurological: Positive for headaches. Negative for dizziness, vertigo, syncope, light-headedness and numbness. Psychiatric/Behavioral: Negative for agitation, behavioral problems and confusion. Objective BP 130/96 Pulse (!) 122 Temp 37.1 C (98.8 F) Resp 20 Wt 93.9 kg (207 lb) LMP 08/07/2013 SpO2 96% BMI 34.45 kg/m Physical Exam Vitals and nursing note reviewed. Constitutional: General: She is not in acute distress. Appearance: Normal appearance. She is obese. She is not ill-appearing, toxic-appearing or diaphoretic. Comments: Tearful Uncomfortable HENT: Head: Normocephalic. Right Ear: Tympanic membrane, ear canal and external ear normal. There is no impacted cerumen. Left Ear: Tympanic membrane, ear canal and external ear normal. There is no impacted cerumen. Nose: Nose normal. No congestion. Mouth/Throat: Mouth: Mucous membranes are moist. Pharynx: No oropharyngeal exudate or posterior oropharyngeal erythema. Eyes: General: No scleral icterus. Right eye: No discharge. Left eye: No discharge. Pupils: Pupils are equal, round, and reactive to light. Cardiovascular: Rate and Rhythm: Normal rate and regular rhythm. Pulses: Normal pulses. Heart sounds: Normal heart sounds. No murmur heard. Pulmonary: Effort: Pulmonary effort is normal. No respiratory distress. Breath sounds: Normal breath sounds. No wheezing. Chest: Chest wall: No tenderness. Abdominal: General: Abdomen is flat. Palpations: Abdomen is soft. There is no mass. Tenderness: There is no abdominal tenderness. There is no guarding. Musculoskeletal: General: No swelling or tenderness. Normal range of motion. Cervical back: Normal range of motion. No rigidity or tenderness. Skin: General: Skin is warm and dry. Capillary Refill: Capillary refill takes less than 2 seconds. Findings: Lesion present. No erythema or rash. Comments: Raised 2cm draining purulent wound on left superior occipital scalp. Tender to touch. Exam limited due to patient reluctance to touch. Neurological: General: No focal deficit present. Mental Status: She is alert and oriented to person, place, and time. Motor: No weakness. Psychiatric: Mood and Affect: Mood normal. Behavior: Behavior normal. Thought Content: Thought content normal. Judgment: Judgment normal. Comments: tearful Assessment and Plan ASSESSMENT/PLAN: 1. Abscess, scalp - ICD9: 682.8, ICD10: L02.811 History of same Reluctant and guards area throughout exam. Declines I & D. - Begin treatment with Dicloxacillin 100 mg PO Q12hrs Bactroban ointment - Follow-up with your PCP in 3-5 days if symptoms have not improved or sooner if symptoms worsen - Discussed red flags and need for immediate medical evaluation if any occur. - Discussed supportive care treatment, wound care and analgesia. - Discussed expected course of illness [facility] TEACHING PROVIDER (Physician/PA/RECYCLABLE MATERIALS SORTER) NOTE OF PERSONAL INVOLVEMENT IN CARE: I have personally seen and examined the patient and performed the medical decision-making components. I have reviewed the Advanced Practice Registered Nurse (RECYCLABLE MATERIALS SORTER) Student's documentation and verified the findings in the note as written. Any additions or changes are noted in bold/italics. Signature: Tracy Meyer Date: 10/15/2021 Time: 3:30 PM documented in this encounter [facility] 10-15-2021 Instructions Tracy Meyer APRN.LILA - 10/15/2021 3:08 PM EDT ABSCESS (BOIL): You have a skin abscess, or boil. Boils usually develop when Staph bacteria get into the small glands or hair follicles in the skin and form a pus pocket. After an abscess is properly drained, it will most often heal without any problems. You should not squeeze an abscess or boil to drain it; this can cause the infection to spread to other areas under the skin. Boils are contagious, so you should dispose of soiled bandages carefully and not share your towel or wash cloth with others. A boil is lanced to start the draining. Sometimes a loose gauze pack is put in the abscess pocket to promote drainage; this should be removed in 1-3 days. Soak the area in warm water for 20-30 minutes 3-4 times daily to help the healing. Oral antibiotics may be needed if the infection is severe or if it seems to be spreading. Please call your doctor if you have increased pain or swelling, chills or fever, red streaks going up the arm or leg, or continued pus drainage after 3-4 days. documented in this encounter [facility] 10-01-2021 History of Present illness Narrative Patient left without being seen and notified no one. No valid phone number No [employer], [employer]. Ron Ortega PA-C documented in this encounter [facility] 07-15-2021 Miscellaneous Notes Attempted to call, but phone number listed is not a working number. Letter sent. Megha Bull RN Please notify patient of positive yeast and bacterial vaginosis. Rx sent for Flagyl 500 mg PO BID x 7 days and Diflucan 150 mg PO x 1 dose. No intercourse or alcohol throughout treatment and up to 24 hours after last dose of medication. Janis Velazco APRN.CNM documented in this encounter [facility] 07-13-2021 Instructions Tracy Aguillon APRN.CNM - 07/13/2021 11:09 AM EDT Hormone Therapy* (HT): Understanding Benefits and Risks (*Sometimes also called hormone replacement therapy, HRT) What are estrogen and progesterone? Estrogen and progesterone are hormones that are produced by a woman's ovaries. Why does the body need estrogen? Estrogen thickens the lining of the uterus, preparing it for the possible implantation of a fertilized egg. Estrogen also influences how the body uses calcium, an important mineral in the building of bones. In addition, estrogen helps maintain healthy levels of cholesterol in the blood. Estrogen is necessary in keeping the vagina healthy. As menopause nears, the ovaries reduce most of their production of these hormones. Lowered or fluctuating estrogen levels may cause menopause symptoms such as hot flashes, and medical conditions such as osteoporosis. What is hormone therapy (HT)? Hormone therapy (HT) is a treatment that is used to supplement the body with either estrogen alone or estrogen and progesterone in combination. When the ovaries no longer produce adequate amounts of these hormones (as in menopause), HT can be given to supplement the body with adequate levels of estrogen and progesterone. HT helps to replenish the estrogen, relieving some of the symptoms of menopause and helping to prevent osteoporosis. Why is progesterone taken? Progesterone is used along with estrogen in women who still have their uterus. In these women, estrogen-- if taken without progesterone--increases a woman's risk for cancer of the endometrium (the lining of the uterus). During a woman's reproductive years, cells from the endometrium are shed during menstruation. When the endometrium is no longer shed, estrogen can cause an overgrowth of cells in the uterus, a condition that can lead to cancer. Progesterone reduces the risk of endometrial (uterine) cancer by making the endometrium thin. Women who take progesterone may have monthly bleeding, or no bleeding at all, depending on how the hormone therapy is taken. Monthly bleeding can be lessened and, in some cases, eliminated by taking progesterone and estrogen together continuously. Women who have had a hysterectomy (removal of the uterus through surgery) usually do not need to take progesterone. This is an important point, because estrogen taken alone has fewer long-term risks than HT that uses a combination of estrogen and progesterone. What are the types of HT? There are two main types of HT: Estrogen Therapy (ET): Estrogen is taken alone. Doctors most often prescribe a low dose of estrogen to be taken as a pill or patch every day. Estrogen may also be prescribed as a cream, vaginal ring, gel or spray. You should take the lowest dose of estrogen needed to relieve menopause symptoms and/or to prevent osteoporosis. This type of HT is used if a woman has had a hysterectomy. Estrogen Progesterone/Progestin Hormone Therapy (EPT): Also called combination therapy, this form of HT combines doses of estrogen and progesterone (progestin is a synthetic form of progesterone). This type of HT is used if a woman still has her uterus. What are the benefits of taking HT? HT is prescribed to relieve: Hot flashes Vaginal dryness that can result in painful intercourse Other problematic symptoms of menopause, such as night sweats and dry, itchy skin Other benefits of taking HT include: Reduced risk of developing osteoporosis and reduced risk of bone breakage Improvement of mood and overall sense of mental well-being in some women Decreased tooth loss Lowered risk of colon cancer Lowered risk of diabetes Modest improvement in joint pains Lower rate for women who take hormone therapy in their 50s. What are the risks of taking HT? While HT helps many women get through menopause, the treatment (like any prescription or even non-prescription medicines) is not risk-free. Known health risks include: An increased risk of endometrial cancer (only if a woman still has her uterus and is not taking a progestin along with estrogen). Increased risk of blood clots and stroke. However, in women within 5 years of menopause there was no statistically significant increase in stroke risk. Also, studies suggest that using estrogen delivered from the skin via a patch/cream might further lessen the risk of blood clots. Increased chance of gallbladder/gallstone problems. Increased risk of dementia if hormone therapy is started after a woman has been in menopause for 10 years. It is not yet known if it might be beneficial for women who start HT in their 50s. Most of our understanding about the benefits and risks of hormone therapy on the heart and breast come from the Women s Health Initiative (WHI) study (one of the largest studies done on hormone therapy): HT and the heart Recent analysis of WHI actually shows that the risk of heart disease may be related more to the advanced age of the participants as opposed to the HT. The study also found that HT given to younger women, at the onset of menopause, appeared to decrease the risk of heart disease. More specifically: An increased risk of heart disease is only seen in women taking long-term estrogen-progestin combination therapy (EPT) if they start HT in their mid-60s. There does not seem to be an increased risk of heart disease when women in their 50s start EPT. Estrogen alone (ET) has not been shown to increase the risk of heart disease. Analysis of the age since menopause actually shows a decrease in the risk of heart disease when ET was started in younger women (those just beginning menopause). Currently, it is not recommended to use hormone therapy solely for the purpose of preventing heart disease. However these studies give us reassurance that when women just newly approaching menopause need HT for a short time, it is safe to do so in terms of rat exterminator heart disease risk. HT and breast cancer Diagnosis of breast cancer increases when combination EPT is used beyond 3-5 years. This means that out of 10,000 women who use estrogen progestin therapy for more than 5 years, there will be 8 additional breast cancers diagnosed. In contrast, the WHI study showed women who use estrogen alone had no increase in risk of breast cancer even after 11 years of use. In fact, fewer breast cancers were seen in the group taking estrogen alone, though this was not statistically significant. When a woman comes off of hormone therapy, any potential increase in her risk of breast cancer quickly goes back to her baseline norm. This is why hormone therapy can be a safe option when women in their 50s (who are generally at lower risk for breast cancer compared to older women). Does starting HT closer to the time of menopause make it safer? One of the problems with the WHI study, which gave us much of our knowledge on the risks of HT, is that most women in the study were starting hormones in their mid-60s. Typically, women who need HT are newly menopausal, in their early 50s. Younger women in the WHI study had fewer risks and more benefits from HT. Newer studies are trying to understand the risks and benefits of HT in women in their 50s. One such study showed HT started early in postmenopausal women significantly reduced rate, heart attacks and heart failure. These postmenopausal women who started HT early and used it for more than 10 years were not at increased risk of breast cancer or stroke. What are some commonly used postmenopausal hormones? The following charts list the names of some, but not all, postmenopausal hormones. Types Brand Names Vaginal Tablet Vagifem Estrogen Pills Cenestin , Estinyl , Estrace , Menest , Ogen , Premarin , Femtrace Cream Estrace , Ogen , Premarin Vaginal Ring Estring , Femring Patch Aileen , Climara , Minivelle , Estraderm , Vivelle , Vivelle-Dot , Menostar Progestin Types Brand Names Pills/Capsules Amen , Aygestin , Curretab , Cycrin , Megace , Prometrium , Provera Vaginal Gel Prochieve progesterone gel 4%, 8% Combination types Brand Names Pills Activella , FemHRT , Premphase , Prempro , Angeliq Patchs CombiPatch , Climara-Pro Who shouldn't take HT? HT is not usually recommended for women who have: Active or past breast cancer Recurrent or active endometrial cancer Abnormal vaginal bleeding that has not been evaluated Recurrent or active blood clots History of stroke Liver disease Known or suspected What are the side effects of HT? Like almost all medications, hormone therapy has side effects. The most common side effects are: Monthly bleeding (if progestin given cyclical) Irregular spotting Breast tenderness Less common side effects of hormone therapy include: Fluid retention Headaches (including migraine) Skin discoloration (brown or black spots) Increased breast density making mammogram interpretation more difficult Skin irritation under estrogen patch How can I reduce these side effects? Adjusting either the dosage or the form of the medication you are taking can often reduce side effects of HT. However, you should never make changes in your medication or stop taking it without first consulting your doctor. How can I know if HT is right for me? The balance of risks versus benefits of HT can be very different for each woman, depending on her age, family history, and personal medical history. It is important to allow enough time at an office visit to discuss the risks and benefits of hormone therapy. This is a question that should usually be addressed at a separate office visit to allow plenty of time for detailed discussion with your doctor. How long should I take HT? Since research on HT is ongoing, women should reevaluate their treatment plans each year. Discontinue HT (under your health care provider's guidance) if you develop a medical condition that would make it less safe for you. Based on the WHI study results, should I stop taking HT? It's important that you do not make any abrupt changes to your HT without consulting your doctor. He or she can discuss with you the benefits and risks of HT based on your individual circumstances. First, the therapy should not be continued or started to prevent heart disease. Women should consult their doctor about other methods of prevention, such as lifestyle changes, and cholesterol- and blood pressure-lowering drugs. Second, for osteoporosis prevention, women should consult their doctor and weigh the benefits against their personal risks. Alternate treatments also are available to prevent osteoporosis and fractures. Finally, women taking HT for relief of menopausal symptoms may reap more benefits than risks. Women should talk with their doctor about their personal risks and benefits. References: Effect of Hormone Replacement Therapy on Cardiovascular Events in Recently Postmenopausal Women: Randomized Trial. BMJ Jan 2012. [place] [employer]. The 2012 hormone therapy position statement Accessed 09/21/12. [place] [employer]ocrin[employer]. [place] [employer]in[employer] Medical Guidelines for the Clinical Practice for the Diagnosis and Treatment of Menopause Accessed 10/15/12. Committee on Gynecological Practice. Postmenopausal estrogen therapy: Route of administration and risk of venous thromboembolism. Obstet Gynecol 2013 Jul; 121:887. Estrogen alone and joint symptoms in the Women's Health Initiative randomized trial. Menopause 2012Jul 10. Start vaginal estrogen: Apply a pea-sized amount of cream to the vaginal opening nightly for two weeks and then, twice weekly. If the vaginal estrogen costs more than $50, decline the medication and call the office for an alternate prescription. documented in this encounter [facility] 07-13-2021 History of Present illness Narrative Ezio Nielson is a 40 year old female who presents for problem visit for vaginal dryness. HPI: Vaginal dryness. Increased pain with intercourse. Started one month ago. Current partner x 6 months. Ok for STD testing. Feels dry and like sandpaper , after, during intercourse. Denies vaginal discharge but unsure if yeast infection, has DM and gets them frequent. Denies any pain with intercourse with deep penetration, feels more dryness. Missed annual exam due to having covid. Mirena IUD due for removal OB History T3 L3 SAB0 IAB0 Ectopic0 Multiple0 Live Births0 [employer] History LMP: 08/07/2013, IUD Age at Menarche: Age at First : Age at Menopause: [employer] History Comments: Sexual Activity: Yes; Male; Mirena inserted 03/09/2013 Contraception: Tubal Ligation PAST MEDICAL HISTORY Diagnosis Date Anxiety 12/29/2012 Arrhythmia Calculus of gallbladder with other cholecystitis, without mention of obstruction Chest pain in adult 05/01/2019 05/01/2019 ER to hosp admit for chest pain: negative serial troponins. EKG negative. No stress testing. Resolved. Diabetes (HCC) Hypertension PAST SURGICAL HISTORY Procedure Laterality Date DELIVERY ONLY , low transverse x2 INSERTION OF IUD 03/09/2013 LAP CHOLECYSTOENTEROSTOMY 10/04/08 LAPAROSCOPIC CHOLEYCYSTECTOMY 10/03/08 LIGATE FALLOPIAN TUBE Tubal ligation FAMILY HISTORY Problem Relation Age of Onset Heart Mother Diabetes Mother Hypertension Mother Arthritis Mother Heart Father Arthritis Father Cancer Maternal Grandmother stomach cancer. Social History Tobacco Use Smoking status: Current Every Day Smoker Packs/day: 0.50 Years: 20.00 Pack years: 10.00 Types: Cigarettes Smokeless tobacco: Never Used Substance Use Topics Alcohol use: Yes Comment: occ Drug use: No Current Outpatient Medications Medication Sig metFORMIN ER (GLUMETZA) 1,000 mg 24 hr tablet Take 1 tablet by mouth daily with breakfast. Lactobacillus acidophilus (FLORAJEN ACIDOPHILUS) 20 billion cell cap Take 1 capsule by mouth once daily. Insulin Cecil, Disposable, (SURE-FINE PEN NEEDLES) 31 gauge x 3/16 Daily injections blood sugar diagnostic (BLOOD GLUCOSE TEST) test strip Test blood sugar(s) 2 times daily. Dx: Type 2 DM - Uncontrolled E11.65 Insulin: Yes Lancets lancets Test blood sugar(s) two times daily. Dx: E11.65. Insulin: Yes levonorgestrel (MIRENA) 20 mcg/24 hour (5 years) IUD 1 Each by INTRAUTERINE route continuous. insulin glargine (LANTUS SOLOSTAR U-100 INSULIN) 100 unit/mL (3 mL) Inject 30 Units subcutaneously daily at bedtime. No current facility-administered medications for this visit. Allergies As of Date: 07/13/2021 Allergen Noted Reaction CATS 10/23/2009 Hives and Itching DUST 10/23/2009 GRASS POLLEN 10/23/2009 Itching CARDIZEM [DILTIAZEM] 07/25/2013 GI Upset and Vomiting PERCOCET [OXYCODONE-ACETAMINOPHEN]06/07/2016 Vomiting ZYRTEC [CETIRIZINE HCL] 08/22/2013 Hives Fully Assessed 07/13/2021 REVIEW OF SYSTEMS Abdomen: No bloating, early satiety, indigestion, or increased flatulence. No abdominal pain, nausea, vomiting, diarrhea, or constipation. Bladder: No dysuria, gross hematuria, urinary frequency, urinary urgency, or incontinence. Breast: No breast lumps, nipple d/c, overlying skin changes, redness or skin retraction. Expanded ROS: N/A Allergies and current medication updated:Yes EXAM: LMP 08/07/2013 BP 118/76 Wt 203 lb (92.1 kg) LMP 08/07/2013 BMI 33.78 kg/m GENERAL: pleasant, female in no apparent distress HEENT: Normocephalic, atraumatic, mucus membranes moist and no lesions NECK: Supple and full range of motion DERMATOLOGY: Normal and without lesions CHEST: Normal inspiratory effort ABDOMEN: soft, non-tender and no masses PELVIC: external genitalia normal, normal Bartholin's glands, urethra, Hazard's glands, no vulvar lesions, no cervical lesions, good vaginal support, physiologic discharge present, normal appearing perineal body and perianal region, atrophic changes erythmic with small excoriated areas. No vaginal discharge. IUD strings present BIMANUAL: uterus normal size, shape and consistency, no adnexal masses and non-tender NEURO: alert and oriented x3,exam grossly non-focal EXTREMITIES: normal ASSESSMENT AND PLAN: 1. Vaginal burning - ICD9: 625.8, ICD10: N94.9 (primary diagnosis) - LORENZO / TRICHOMONAS AMPLIFICATION - BACTERIAL VAGINOSIS AMPLIFICATION 2. Screen for STD (sexually transmitted disease) - ICD9: V74.5, ICD10: Z11.3 - LORENZO / TRICHOMONAS AMPLIFICATION - BACTERIAL VAGINOSIS AMPLIFICATION - GC/CHLAMYDIA DNA DET 3. Vaginal atrophy - ICD9: 627.3, ICD10: N95.2 - ESTRADIOL 0.01% (0.1 MG/GRAM) VAGINAL CREAM - Reviewed risks, benefits, MOA and how to use. She would like to use vaginal estrogen, handout given on WHI and HRT 4. IUD check up - ICD9: V25.42, ICD10: Z30.431 - REMOVE INTRAUTERINE DEVICE -Annual exam 4 weeks after IUD removal and reevaluate vaginal atrophy Tracy Aguillon APRN.CNM documented in this encounter [facility] documented as of this encounter (statuses as of 10/02/2021) [facility]09-19-2016 History of Past illness Narrative* Problem Noted Date Resolved Date Dyslipidemia 01/12/2016 10/01/2021 Pain in limb 05/13/2014 06/07/2016 Chest pain, atypical 06/04/2013 06/07/2016 documented as of this encounter (statuses as of 10/15/2021) [address]19-2016 History of Past illness Narrative* Problem Noted Date Resolved Date Dyslipidemia 01/12/2016 10/01/2021 Pain in limb 05/13/2014 06/07/2016 Chest pain, atypical 06/04/2013 06/07/2016 documented as of this encounter (statuses as of 01/04/2022) [address]19-2016 History of Past illness Narrative* Problem Noted Date Resolved Date Dyslipidemia 01/12/2016 10/01/2021 Pain in limb 05/13/2014 06/07/2016 Chest pain, atypical 06/04/2013 06/07/2016 documented as of this encounter (statuses as of 01/11/2022) [address]19-2016 History of Past illness Narrative* Problem Noted Date Resolved Date Dyslipidemia 01/12/2016 10/01/2021 Pain in limb 05/13/2014 06/07/2016 Chest pain, atypical 06/04/2013 06/07/2016 documented as of this encounter (statuses as of 04/16/2022) [address]19-2016 History of Past illness Narrative* Problem Noted Date Resolved Date Dyslipidemia 01/12/2016 10/01/2021 Pain in limb 05/13/2014 06/07/2016 Chest pain, atypical 06/04/2013 06/07/2016 documented as of this encounter (statuses as of 04/26/2022) [address]19-2016 History of Past illness Narrative* Problem Noted Date Resolved Date Dyslipidemia 01/12/2016 10/01/2021 Pain in limb 05/13/2014 06/07/2016 Chest pain, atypical 06/04/2013 06/07/2016 documented as of this encounter (statuses as of 04/28/2022) [address]19-2016 History of Past illness Narrative* Problem Noted Date Resolved Date Dyslipidemia 01/12/2016 10/01/2021 Pain in limb 05/13/2014 06/07/2016 Chest pain, atypical 06/04/2013 06/07/2016 documented as of this encounter (statuses as of 04/29/2022) [address]19-2016 History of Past illness Narrative* Problem Noted Date Resolved Date Dyslipidemia 01/12/2016 10/01/2021 Pain in limb 05/13/2014 06/07/2016 Chest pain, atypical 06/04/2013 06/07/2016 documented as of this encounter (statuses as of 05/05/2022) [address]19-2016 History of Past illness Narrative* Problem Noted Date Resolved Date Dyslipidemia 01/12/2016 10/01/2021 Pain in limb 05/13/2014 06/07/2016 Chest pain, atypical 06/04/2013 06/07/2016 documented as of this encounter (statuses as of 05/31/2022) [address]19-2016 History of Past illness Narrative* Problem Noted Date Resolved Date Dyslipidemia 01/12/2016 10/01/2021 Pain in limb 05/13/2014 06/07/2016 Chest pain, atypical 06/04/2013 06/07/2016 documented as of this encounter (statuses as of 06/23/2022) [address]19[address]2016 History of Past illness Narrative* Problem Noted Date Resolved Date Dyslipidemia 01/12/2016 10/01/2021 Pain in limb 05/13/2014 06/07/2016 Chest pain, atypical 06/04/2013 06/07/2016 documented as of this encounter (statuses as of 06/29/2022) [address]19-2016 History of Past illness Narrative* Problem Noted Date Resolved Date Dyslipidemia 01/12/2016 10/01/2021 Pain in limb 05/13/2014 06/07/2016 Chest pain, atypical 06/04/2013 06/07/2016 documented as of this encounter (statuses as of 06/29/2022) [address]19-2016 History of Past illness Narrative* Problem Noted Date Resolved Date Dyslipidemia 01/12/2016 10/01/2021 Pain in limb 05/13/2014 06/07/2016 Chest pain, atypical 06/04/2013 06/07/2016 documented as of this encounter (statuses as of 06/30/2022) [address]19[address]2016 History of Past illness Narrative* Problem Noted Date Resolved Date Dyslipidemia 01/12/2016 10/01/2021 Pain in limb 05/13/2014 06/07/2016 Chest pain, atypical 06/04/2013 06/07/2016 documented as of this encounter (statuses as of 07/21/2022) [facility]-2016 History of Past illness Narrative* Problem Noted Date Resolved Date Dyslipidemia 01/12/2016 10/01/2021 Pain in limb 05/13/2014 06/07/2016 Chest pain, atypical 06/04/2013 06/07/2016 documented as of this encounter (statuses as of 09/22/2022) [facility]19-2016 History of Past illness Narrative* Problem Noted Date Resolved Date Dyslipidemia 01/12/2016 10/01/2021 Pain in limb 05/13/2014 06/07/2016 Chest pain, atypical 06/04/2013 06/07/2016 documented as of this encounter (statuses as of 10/29/2022) [facility]2016 History of Past illness Narrative* Problem Noted Date Diagnosed Date Resolved Date Dyslipidemia 01/12/2016 10/01/2021 Pain in limb 05/13/2014 06/07/2016 Chest pain, atypical 06/04/2013 017 documented as of this encounter (statuses as of 11/01/2022) [facility]2016 History of Past illness Narrative* Problem Noted Date Diagnosed Date Resolved Date Dyslipidemia 01/12/2016 10/01/2021 Pain in limb 05/13/2014 06/07/2016 Chest pain, atypical 06/04/2013 017 documented as of this encounter (statuses as of 11/17/2022) [facility]2016 History of Past illness Narrative* Problem Noted Date Diagnosed Date Resolved Date Dyslipidemia 01/12/2016 10/01/2021 Pain in limb 05/13/2014 06/07/2016 Chest pain, atypical 06/04/2013 017 documented as of this encounter (statuses as of 02/27/2023) [facility]2015 History of Past illness Narrative* Problem Noted Date Resolved Date Pain in limb 05/13/2014 06/07/2016 Chest pain, atypical 06/04/2013 06/07/2016 documented as of this encounter (statuses as of 07/13/2021) [facility] History of Past illness Narrative* Problem Noted Date Resolved Date Pain in limb 05/13/2014 06/07/2016 Chest pain, atypical 06/04/2013 06/07/2016 documented as of this encounter (statuses as of 07/15/2021) [facility] Diagnosis Vaginal burning- Primary Other specified symptom associated with female genital organs Screen for STD (sexually transmitted disease) Screening examination for venereal disease Vaginal atrophy Postmenopausal atrophic vaginitis IUD check up Surveillance of previously prescribed intrauterine contraceptive device [facility] Chest pain in adult- Primary Essential hypertension Unspecified essential hypertension Mixed hyperlipidemia Type 2 diabetes mellitus with hyperglycemia, with long-term current use of insulin ([facility]) Lupus ([facility]) Systemic lupus erythematosus Chronic pain of right knee 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 Complex regional pain syndrome type 1 of right lower extremity Fibromyalgia Mylagia and myositis, unspecified Neuropathic pain Neuralgia, neuritis, and radiculitis, unspecified [facility] Diagnosis Abscess, scalp- Primary Cellulitis and abscess of other specified site [facility] Diagnosis Encounter for screening [facility] for [facility] Diagnosis Type 2 diabetes mellitus with hyperglycemia, with long-term current use of insulin ([facility])- Primary Mixed hyperlipidemia Recurrent UTI (urinary tract infection) Urinary tract infection, site not specified Middle ear effusion, left [facility] Diagnosis Tongue plaque- Primary Leukoplakia of oral mucosa, including tongue [facility] Diagnosis Pneumonia of right lower lobe due to methicillin resistant Staphylococcus aureus (MRSA) ([facility])- Primary Hospital discharge follow-up Other follow-up examination Influenza A Influenza with other respiratory manifestations Type 2 diabetes mellitus with hyperglycemia, with long-term current use of insulin ([facility]) Adenopathy, hilar right Enlargement of lymph nodes Essential hypertension Unspecified essential hypertension Tobacco abuse Tobacco use disorder [facility] Diagnosis Encounter for screening mammogram for breast cancer [facility] Diagnosis Pneumonia of right lower lobe due to methicillin resistant Staphylococcus aureus (MRSA) (HCC)- Primary Lupus (HCC) Systemic lupus erythematosus Type 2 diabetes mellitus with hyperglycemia, with long-term current use of insulin ([facility]) Fatigue, unspecified type documented in this encounter [facility] note* Diagnosis Type 2 diabetes mellitus with hyperglycemia, with long-term current use of insulin (HCC)- Primary documented in this encounter [facility] note* Diagnosis Encounter for screening mammogram for breast cancer documented in this encounter [facility] for referral (narrative)* Outpatient Procedure (Routine) - Pending Review Specialty Diagnoses / Procedures Referred By Leanne barry Referred To Contact [facility] Diagnoses IUD check up Procedures REMOVE INTRAUTERINE DEVICE REMOVE INTRAUTERINE DEVICE Tracy Aguillon APRN.CNM [address] [place] [address] [facility] [address] [place] [address] Referral ID Status Reason Start Date Expiration Date Visits Requested Visits Authorized [id number] Pending Review Auto-Generat ed Referral 07/13/2021 07/13/2022 1 1 [facility] for referral (narrative)* Diagnostic Procedure Only (Routine) - Pending Review Specialty Diagnoses / Procedures Referred By Leanne barry Referred To Contact [facility] Diagnoses Encounter for screening mammogram for breast cancer Procedures MENDEL SCREENING SCREENING MAMMOGRAPHY BI 2-VIEW [employer]AST INC Michael Alberto PA-C [address] [place] [address] [facility] [address] [place] [address] Referral ID Status Reason Start Date Expiration Date Visits Requested Visits Authorized [id number] Pending Review Auto-Generat ed Referral 12/30/2021 01/29/2023 1 1 T [facility] for referral (narrative)* Diagnostic Procedure Only (Routine) - Pending Review Specialty Diagnoses / Procedures Referred By Leanne t Referred To Contact [facility] Diagnoses Encounter for screening mammogram for breast cancer Procedures MENDEL SCREENING SCREENING MAMMOGRAPHY BI 2-VIEW [employer] Michael Alberto PA-C [address] [place] [address] [facility] [address] [place] [address] Referral ID Status Reason Start Date Expiration Date Visits Requested Visits Authorized [id number] Pending Review Auto-Generat ed Referral 05/26/2022 06/25/2023 1 1 [facility] for referral (narrative)* Diagnostic Procedure Only (Routine) - Closed Specialty Diagnoses / Procedures Referred By Leanne t Referred To Contact [facility] Diagnoses Encounter for screening mammogram for breast cancer Procedures MENDEL SCREENING SCREENING MAMMOGRAPHY BI 2-VIEW [employer] Michael Alberto PA-C [address] [place] [address] [facility] [address] [place] [address] Referral ID Status Reason Start Date Expiration Date V isits Requested Visits Authorized [id number] Closed Auto-Generate d Referral 05/26/2022 06/25/2023 1 1 [facility] for visit Narrative* Diagnostic Procedure Only (Routine) - Closed Specialty Diagnoses / Procedures Referred By Leanne barry Referred To Contact [facility] Diagnoses Encounter for screening mammogram for breast cancer Procedures MENDEL SCREENING SCREENING MAMMOGRAPHY BI 2-VIEW [employer] Michael Alberto PA-C [address] [place] [address] [facility] [address] [place] [address] Referral ID Status Reason Start Date Expiration Date V isits Requested Visits Authorized [id number] Closed Auto-Generate d Referral 05/26/2022 06/25/2023 1 1 [facility] Summary Purpose Family History No Family History Records FoundNo Family History Records FoundNo Family History Records FoundNo Family History Records Found Advance Directives No Advanced Directives Records FoundDocuments on File Type Date Recorded 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 Advance Directive(s) 05/01/2019 9:53 AM Advance Directive(s) 04/30/2019 8:07 PM Advance Directive(s) 02/27/2019 8:50 AM Advance Directive(s) 02/19/2019 8:45 AM Advance Directive(s) 05/03/2017 7:39 AM Advance Directive(s) 04/26/2017 3:39 PM Documents on File Type Date 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 Advance Directive(s) 05/01/2019 9:53 AM Advance Directive(s) 04/30/2019 8:07 PM Advance Directive(s) 02/27/2019 8:50 AM Advance Directive(s) 02/19/2019 8:45 AM Advance Directive(s) 05/03/2017 7:39 AM Advance Directive(s) 04/26/2017 3:39 PM Reason for Referral Specialty Diagnoses / Procedures Referred By Contac t Referred To Contact Diagnoses Type 2 diabetes mellitus with hyperglycemia, with long-term current use of insulin (HCC) Madhuri Gibbs, [employer] [employer] [address] [place] [address] Referral ID Status Reason Start Date Expiration Date Visits Re quested Visits Authorized [id number] Closed 1 1 Additional Source Comments INFORMATION SOURCE (unrecogn ized section and content) DATE CREATED AUTHOR AUTHOR'S ORGANIZ ATION 05/04/2019 [facility] DATE CREATED AUTHOR AUTHOR'S ORGANIZ ATION 06/27/2019 [facility] ([place]) DATE CREATED AUTHOR AUTHOR'S ORGANIZ ATION 03/01/2023 [facility] Source Comments (unrecognize d section and content) In the event this informatio n is protected by the Federal Confidentiality of Alcohol and Drug Abuse Patient Records regulations: The Federal rules restrict any use of the information to criminally investigate or prosecute any alcohol or drug abuse patient.[facility] event this information is protected by the Federal Confidentiality of Alcohol and Drug Abuse Patient Records regulations: The Federal rules restrict any use of the information to criminally investigate or prosecute any alcohol or drug abuse patient.[facility] event this information is protected by the Federal Confidentiality of Alcohol and Drug Abuse Patient Records regulations: The Federal rules restrict any use of the information to criminally investigate or prosecute any alcohol or drug abuse patient.[facility] event this information is protected by the Federal Confidentiality of Alcohol and Drug Abuse Patient Records regulations: The Federal rules restrict any use of the information to criminally investigate or prosecute any alcohol or drug abuse patient.[facility] event this information is protected by the Federal Confidentiality of Alcohol and Drug Abuse Patient Records regulations: The Federal rules restrict any use of the information to criminally investigate or prosecute any alcohol or drug abuse patient.[facility] event this information is protected by the Federal Confidentiality of Alcohol and Drug Abuse Patient Records regulations: The Federal rules restrict any use of the information to criminally investigate or prosecute any alcohol or drug abuse patient.[facility] event this information is protected by the Federal Confidentiality of Alcohol and Drug Abuse Patient Records regulations: The Federal rules restrict any use of the information to criminally investigate or prosecute any alcohol or drug abuse patient.[facility] event this information is protected by the Federal Confidentiality of Alcohol and Drug Abuse Patient Records regulations: The Federal rules restrict any use of the information to criminally investigate or prosecute any alcohol or drug abuse patient.[facility] event this information is protected by the Federal Confidentiality of Alcohol and Drug Abuse Patient Records regulations: The Federal rules restrict any use of the information to criminally investigate or prosecute any alcohol or drug abuse patient.[facility] event this information is protected by the Federal Confidentiality of Alcohol and Drug Abuse Patient Records regulations: The Federal rules restrict any use of the information to criminally investigate or prosecute any alcohol or drug abuse patient.[facility] event this information is protected by the Federal Confidentiality of Alcohol and Drug Abuse Patient Records regulations: The Federal rules restrict any use of the information to criminally investigate or prosecute any alcohol or drug abuse patient.[facility] event this information is protected by the Federal Confidentiality of Alcohol and Drug Abuse Patient Records regulations: The Federal rules restrict any use of the information to criminally investigate or prosecute any alcohol or drug abuse patient.[facility] event this information is protected by the Federal Confidentiality of Alcohol and Drug Abuse Patient Records regulations: The Federal rules restrict any use of the information to criminally investigate or prosecute any alcohol or drug abuse patient.[facility] event this information is protected by the Federal Confidentiality of Alcohol and Drug Abuse Patient Records regulations: The Federal rules restrict any use of the information to criminally investigate or prosecute any alcohol or drug abuse patient.[facility] event this information is protected by the Federal Confidentiality of Alcohol and Drug Abuse Patient Records regulations: The Federal rules restrict any use of the information to criminally investigate or prosecute any alcohol or drug abuse patient.[facility] the event this information is protected by the Federal Confidentiality of Alcohol and Drug Abuse Patient Records regulations: The Federal rules restrict any use of the information to criminally investigate or prosecute any alcohol or drug abuse patient.[facility] event this information is protected by the Federal Confidentiality of Alcohol and Drug Abuse Patient Records regulations: The Federal rules restrict any use of the information to criminally investigate or prosecute any alcohol or drug abuse patient.[facility] the event this information is protected by the Federal Confidentiality of Alcohol and Drug Abuse Patient Records regulations: The Federal rules restrict any use of the information to criminally investigate or prosecute any alcohol or drug abuse patient.[facility] the event this information is protected by the Federal Confidentiality of Alcohol and Drug Abuse Patient Records regulations: The Federal rules restrict any use of the information to criminally investigate or prosecute any alcohol or drug abuse patient.[facility] the event this information is protected by the Federal Confidentiality of Alcohol and Drug Abuse Patient Records regulations: The Federal rules restrict any use of the information to criminally investigate or prosecute any alcohol or drug abuse patient.[facility] the event this information is protected by the Federal Confidentiality of Alcohol and Drug Abuse Patient Records regulations: The Federal rules restrict any use of the information to criminally investigate or prosecute any alcohol or drug abuse patient.[facility] event this information is protected by the Federal Confidentiality of Alcohol and Drug Abuse Patient Records regulations: The Federal rules restrict any use of the information to criminally investigate or prosecute any alcohol or drug abuse patient.[facility] Reason for Visit (unrecogniz ed section and content) Reason Comments Results Reason Comments Diabetes Reason Comments Abscess back of head near L ear x5 days Reason Comments Follow Up Med refills needed Reason Comments Mouth/Lip Problem Oral thrush x4 days Reason Comments ER F/U Reason Onset Date Comments Refill Request 06/22/2022 Reason Comments Leg Pain right Flu Like Symptoms Reason Comments cxr Reason Onset Date Comments Refill Request 07/21/2022 Reason Onset Date Comments Refill Request 09/21/2022 Reason Comments Insurance Authorization [employer] Care Teams (unrecognized sec tion and content) First Assistant Relationship Specialty Start Date End Date Michael Ortega PA-C [address] [place] [address] PCP - General Family Practice 06/07/16 First Assistant Relationship Specialty Start Date End Date Michael Ortega PA-C [address] [place], [place] [id number] PCP - General Family Practice 06/07/16 First Assistant Relationship Specialty Start Date End Date Michael Ortega PA-C [address] [place], [place] [id number] PCP - General Family Practice 06/07/16 First Assistant Relationship Specialty Start Date End Date Michael Ortega PA-C [address] [facility] [place] [address] PCP - General Family Practice 06/07/16 First Assistant Relationship Specialty Start Date End Date Michael Ortega PA-C [address] [facility] [place] [address] PCP - General Family Practice 06/07/16 First Assistant Relationship Specialty Start Date End Date Michael Ortega PA-C [address] [facility] [place] [address] PCP - General Family Medicine 06/07/16 First Assistant Relationship Specialty Start Date End Date Michael Ortega PA-C [address] [facility] [place] [address] PCP - General Family Medicine 06/07/16 First Assistant Relationship Specialty Start Date End Date Michael Ortega PA-C [address] [facility] [place] [address] PCP - General Family Medicine 06/07/16 First Assistant Relationship Specialty Start Date End Date Michael Ortega PA-C [address] [facility] [place] [address] PCP - General Family Medicine 06/07/16 First Assistant Relationship Specialty Start Date End Date Michael Ortega PA-C [address] [facility] [place] [address] PCP - General Family Medicine 06/07/16 First Assistant Relationship Specialty Start Date End Date Michael Ortega PA-C [address] [facility] [place] [address] PCP - General Family Medicine 06/07/16 First Assistant Relationship Specialty Start Date End Date Michael Ortega PA-C [address] [place] [address] PCP - General Family Medicine 06/07/16 First Assistant Relationship Specialty Start Date End Date Michael Ortega PA-C [address] [place] [address] PCP - General Family Medicine 06/07/16 First Assistant Relationship Specialty Start Date End Date Michael Ortega PA-C [address] [place] [address] PCP - General Family Medicine 06/07/16 First Assistant Relationship Specialty Start Date End Date Michael Ortega PA-C [address] [place] [address] PCP - General Family Medicine 06/07/16 First Assistant Relationship Specialty Start Date End Date Michael Ortega PA-C [address] [place] [address] PCP - General Family Medicine 06/07/16 First Assistant Relationship Specialty Start Date End Date Michael Ortega PA-C [address] [place] [address] PCP - General Family Medicine 06/07/16 First Assistant Relationship Specialty Start Date End Date Michael Ortega PA-C [address] [place] [address] PCP - General Family Medicine 06/07/16 First Assistant Relationship Specialty Start Date End Date Michael Ortega PA-C [address] [place] [address] PCP - General Family Medicine 06/07/16 FOR RECORDS PERTAINING TO PATIENTS WHO ARE OR HAVE BEEN ENROLLED IN A CHEMICAL DEPENDENCY/SUBSTANCEABUSE PROGRAM, SOME INFORMATION MAY BE OMITTED. This clinical summary was aggregated from multiple sources. Caution should be exercised in using it in the provision of clinical care. This summary normalizes information from multiple sources, and as a consequence, information in this document may materially change the coding, format and clinical context of patient data. In addition, data may be omitted in some cases. CLINICAL DECISIONS SHOULD BE BASED ON THE PRIMARY CLINICAL RECORDS. [email or web address] [facility]. provides no warranty or guarantee of the accuracy or completeness of information in this document.
== END 2023-04-30 19:41 | disposition home or self-care (01) ==
PROVIDERS: Emergency Provider Emergency Medicine; PCP Family Medicine; Visit Provider Emergency Medicine
DX: J10.1 Influenza due to other identified influenza virus with other respiratory manifestations (principal); E11.9 Type 2 diabetes mellitus without complications; Z79.4 Long term (current) use of insulin; Z11.52 Encounter for screening for COVID-19; I10 Essential (primary) hypertension; Z79.84 Long term (current) use of oral hypoglycemic drugs; Z79.899 Other long term (current) drug therapy; F17.210 Nicotine dependence, cigarettes, uncomplicated
CPT/HCPCS: 87631; 99282

== ENCOUNTER → 2023-05-11 | Outpatient (CLI) | payer MEDICAID, SELFPAY ==
--- OUTSIDE RECORDS SUMMARY | 2023-05-11 11:55 | XMS RPT_ITS | CCD ---
Author Name Unknown Address [address] [place] [address] Organization [facility] Care Team Providers [employer] Name Role Phone Sonia Ortega PA-C Primary Care Provider Sonia ORTEGA Primary Care Unavailable Sonia ORTEGA Referring Unavailable Sonia ORTEGA Attending Unavailable ORTEGASonia Primary Care Unavailable ORTEGASonia Primary Care Unavailable INNA MICHEL Attending Unavailable Sonia ORTEGA Primary Care Unavailable Sonia ORTEGA Referring Unavailable Sonia ORTEGA Attending Unavailable Sonia ORTEGA Primary Care Unavailable ORTEGASonia Primary Care Unavailable Sonia ORTEGA Referring Unavailable ORTEGASonia Primary Care Unavailable Sonia ORTEGA Referring Unavailable ORTEGASonia Primary Care Unavailable Sonia ORTEGA Referring Unavailable ORTEGASonia Primary Care Unavailable Sonia ORTEGA Attending Unavailable ORTEGASonia Primary Care Unavailable ORTEGASonia Referring Unavailable ORTEGASonia Attending Unavailable JENNIFER M KEENAN Primary Care Unavailable Allergies Allergy Classification Reported Allergen(s) Allergy Type Date of Onset Reaction(s) Facility (20 sources) Acetaminophen / oxyCODONE; Translations: [OXYCODONE-ACETAM INOPHEN] Drug Allergy [address] [facility] (20 sources) Cat; Translations: [CATS] Propensity to adverse reactions 0 Hives, Itching [facility] (20 sources) Cetirizine; Translations: [CETIRIZINE HCL] Drug Allergy [address] [facility] Work Phone: (20 sources) dilTIAZem; Translations: [DILTIAZEM] Drug Allergy 4 GI Upset, Vomiting [facility] (20 sources) Dust; Translations: [DUST] Propensity to adverse reactions [address] [facility] (20 sources) Grass pollen; Translations: [GRASS POLLEN] Propensity to adverse reactions to drug [address] [facility] (18 sources) Acetaminophen; Translations: [ACETAMINOPHEN] Drug Allergy [address] [facility] Medications Current Medications Medication Drug Class(es) Dates [...] 05-01-2019 06-21-2021 Episodic Other aftercare (1 source) 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) use of insulin; Translations: [Type 2 [...] for screening mammogram for breast cancer] Onset: 10-25-2022 Episodic Pneumonia (except that caused by tuberculosis or sexually transmitted disease) (3 sources) Pneumonia due to methicillin resistant Staphylococcus aureus; Translations: [Pneumonia due to Methicillin resistant Staphylococcus aureus] Onset: 06-29-2022 Episodic Residual codes; unclassified (20 sources) Tobacco user; Translations: [Tobacco use] Onset: 01-12-2016 01-12-2016 Episodic Spondylosis; intervertebral disc disorders; other back problems (20 sources) Backache; Translations: [Dorsalgia, unspecified] Onset: 08-14-2012 08-14-2012 Episodic Results Test Name Value Interpretation Reference Range Facil ity Vital Signs Date Time Vital Sign Value Performing Clinician Maria T willoughby 06-28-2022 14:50-0500 Body temperature 98.01 [degF] NA Ortega PA-C Work Phone: [facility] 06-28-2022 14:50-0500 Body weight 89.36 kg NA Ortega PA-C Work Phone: [facility] 06-28-2022 14:50-0500 Diastolic blood pressure 76 mm[Hg] NA Ortega PA-C Work Phone: [facility] 06-28-2022 14:50-0500 Heart rate 104 /min NA Ortega PA-C Work Phone: [facility] 06-28-2022 14:50-0500 Respiratory rate 16 /min NA Ortega PA-C Work Phone: [facility] 06-28-2022 14:50-0500 SaO2% (BldA) [Mass fraction] 96 % NA Ortega PA-C Work Phone: [facility] 06-28-2022 14:50-0500 Systolic blood pressure 128 mm[Hg] NA Ortega PA-C Work Phone: [facility] 04-23-2022 10:45-0500 Body temperature 98.4 [degF] NA Ortega PA-C Work Phone: [facility] 04-23-2022 10:45-0500 Body weight 90.27 kg NA Ortega PA-C Work Phone: [facility] 04-23-2022 10:45-0500 Diastolic blood pressure 80 mm[Hg] NA Ortega PA-C Work Phone: [facility] 04-23-2022 10:45-0500 Heart rate 110 /min NA Ortega PA-C Work Phone: [facility] 04-23-2022 10:45-0500 Respiratory rate 20 /min NA Ortega PA-C Work Phone: [facility] 04-23-2022 10:45-0500 SaO2% (BldA) [Mass fraction] 95 % NA Ortega PA-C Work Phone: [facility] 04-23-2022 10:45-0500 Systolic blood pressure 116 mm[Hg] NA Ortega PA-C Work Phone: [facility] 04-15-2022 12:33-0500 Body temperature 97.59 [degF] Ines Shebly MEDICAL BILLING AND CODING SPECIALIST.SEISMOMETER OPERATOR Work Phone: [facility] 04-15-2022 12:33-0500 Body weight 93.98 kg Ines Shelby MEDICAL BILLING AND CODING SPECIALIST.SEISMOMETER OPERATOR Work Phone: [facility] 04-15-2022 12:33-0500 Diastolic blood pressure 84 mm[Hg] Ines Shelby MEDICAL BILLING AND CODING SPECIALIST.SEISMOMETER OPERATOR Work Phone: [facility] 04-15-2022 12:33-0500 Heart rate 99 /min Ines Shelby MEDICAL BILLING AND CODING SPECIALIST.SEISMOMETER OPERATOR Work Phone: [facility] 04-15-2022 12:33-0500 Respiratory rate 20 /min Ines Shelby MEDICAL BILLING AND CODING SPECIALIST.SEISMOMETER OPERATOR Work Phone: [facility] 04-15-2022 12:33-0500 SaO2% (BldA) [Mass fraction] 95 % Ines Shelby MEDICAL BILLING AND CODING SPECIALIST.SEISMOMETER OPERATOR Work Phone: [facility] 04-15-2022 12:33-0500 Systolic blood pressure 142 mm[Hg] Ines Shelby MEDICAL BILLING AND CODING SPECIALIST.SEISMOMETER OPERATOR Work Phone: [facility] 01-11-2022 13:50-0400 Body weight 95.17 kg Madhuri Zurawick MEDICAL BILLING AND CODING SPECIALIST.SEISMOMETER OPERATOR Work Phone: [facility] 01-11-2022 13:50-0400 Diastolic blood pressure 76 mm[Hg] Madhuri Zurawick MEDICAL BILLING AND CODING SPECIALIST.SEISMOMETER OPERATOR Work Phone: [facility] 01-11-2022 13:50-0400 Heart rate 83 /min Madhuri Zurawick MEDICAL BILLING AND CODING SPECIALIST.SEISMOMETER OPERATOR Work Phone: [facility] 01-11-2022 13:50-0400 Respiratory rate 16 /min Madhuri Zurawick MEDICAL BILLING AND CODING SPECIALIST.SEISMOMETER OPERATOR Work Phone: [facility] 01-11-2022 13:50-0400 SaO2% (BldA) [Mass fraction] 96 % Amdhuri Zurawick MEDICAL BILLING AND CODING SPECIALIST.SEISMOMETER OPERATOR Work Phone: [facility] 01-11-2022 13:50-0400 Systolic blood pressure 120 mm[Hg] Madhuri Zurawick MEDICAL BILLING AND CODING SPECIALIST.SEISMOMETER OPERATOR Work Phone: [facility] 10-15-2021 14:52-0400 Body temperature 98.8 [degF] Tracy Meyer MEDICAL BILLING AND CODING SPECIALIST.SEISMOMETER OPERATOR Work Phone: [facility] 10-15-2021 14:52-0400 Body weight 93.89 kg Tracy Meyer MEDICAL BILLING AND CODING SPECIALIST.SEISMOMETER OPERATOR Work Phone: [facility] 10-15-2021 14:52-0400 Diastolic blood pressure 96 mm[Hg] Tracy Meyer MEDICAL BILLING AND CODING SPECIALIST.SEISMOMETER OPERATOR Work Phone: [facility] 10-15-2021 14:52-0400 Heart rate 122 /min Tracy Meyer MEDICAL BILLING AND CODING SPECIALIST.SEISMOMETER OPERATOR Work Phone: [facility] 10-15-2021 14:52-0400 Respiratory rate 20 /min Tracy Meyer MEDICAL BILLING AND CODING SPECIALIST.SEISMOMETER OPERATOR Work Phone: [facility] 10-15-2021 14:52-0400 SaO2% (BldA) [Mass fraction] 96 % Tracy Meyer MEDICAL BILLING AND CODING SPECIALIST.SEISMOMETER OPERATOR Work Phone: [facility] 10-15-2021 14:52-0400 Systolic blood pressure 130 mm[Hg] Tracy Meyer MEDICAL BILLING AND CODING SPECIALIST.SEISMOMETER OPERATOR Work Phone: [facility] 10-01-2021 10:16-0400 Body weight 93.89 kg NA Ortega PA-C Work Phone: [facility] 10-01-2021 10:16-0400 Diastolic blood pressure 66 mm[Hg] NA Ortega PA-C Work Phone: [facility] 10-01-2021 10:16-0400 Heart rate 85 /min NA Ortega PA-C Work Phone: [facility] 10-01-2021 10:16-0400 Respiratory rate 16 /min NA Ortega PA-C Work Phone: [facility] 10-01-2021 10:16-0400 SaO2% (BldA) [Mass fraction] 97 % NA Ortega PA-C Work Phone: [facility] 10-01-2021 10:16-0400 Systolic blood pressure 118 mm[Hg] NA Ortega PA-C Work Phone: [facility] 07-13-2021 10:47-0400 Body weight 92.08 kg Tracy Aguillon APRN.CNM Work Phone: [facility] 07-13-2021 10:47-0400 Diastolic blood pressure 76 mm[Hg] Tracy Aguillon APRN.CNM Work Phone: [facility] 07-13-2021 10:47-0400 Systolic blood pressure 118 mm[Hg] Tracy Aguillon APRN.CNM Work Phone: [facility] Encounters Encounter Date Encounter Type Care Provider Facility Start: 05-10-2023 End: 05-10-2023 ambulatory Sonia ORTEGA Facility:[facility] Start: 02-24-2023 End: 02-24-2023 ambulatory Sonia ORTEGA Facility:[facility] Start: 11-16-2022 End: 11-16-2022 ambulatory Sonia ORTEGA Facility:[facility] Start: 10-27-2022 ambulatory Sonia Still on PA-C Work Phone: [facility] Procedures Date Procedure Procedure Detail Performing Clinician Start: 10-25-2022 End: 10-25-2022 Mammography Bulk Order Provider Start: 10-01-2021 Adult depression scr eening assessment NA Ortega PA-C Work Phone: Start: 05-01-2019 Adult depression scr eening assessment Tracy Aguillon APRN.CNM Work Phone: Start: 05-01-2019 Electrocardiogram Start: 04-30-2019 Electrocardiogram Plan of Treatment Date Care Activity Detail Author Start: 02-25-2024 Annual PCP Team Venue Coordinator kalie Disease Visit Annual PCP Team Chronic Disease Visit [facility] Start: 02-25-2024 Pneumococcal vaccination Pneum ococcal Vaccine (1 - PCV) [facility] Immunizations Immunization Date Immunization Notes Care Provider Fa tonny 03-12-2016 influenza, seasonal, injectable NA Ortega PA-C Work Phone: [facility] 03-12-2016 influenza virus vacc ine, unspecified formulation Screen Wstr [facility] 03-05-2015 influenza, injectabl e, quadrivalent, contains preservative Tracy Aguillon APRN.CNM Work Phone: [facility] 03-05-2015 influenza, seasonal, injectable NA Ortega PA-C Work Phone: [facility] 04-03-2014 influenza, seasonal, injectable Tracy Aguillon APRN.CNSonia Work Phone: [facility] 08-13-2013 tetanus toxoid, redu patty diphtheria toxoid, and acellular pertussis vaccine, adsorbed Tracy Aguillon APRN.CNSonia Work Phone: [facility] Payers Date Payer Category Payer Medicaid [id number] 2012 Medicaid [employer] [id number] 2012-Present [phone] [address] [place] [address] Medicaid [id number] 2012 Medicaid [id number] 2012 Medicaid [id number] Social History Date Type Detail Facility Start: 04-30-2019 End: 01-07-2022 Tobacco smoking status NHIS Smokes tobacco daily [facility] History of tobacco use Cigarette Smoker C [facility] Work Phone: Start: 07-13-2021 End: 10-11-2022 Alcohol intake Current drinker of alcohol (finding) [facility] Start: 06-12-2015 History SDOH Alcohol Comment occ [facility] Start: 1980 Sex Assigned At Not on file [facility] Start: 06-29-2021 End: 01-11-2022 Exposure to SARS-CoV-2 (event) Not sure [facility] Start: 09-21-2021 End: 10-01-2021 Exposure to SARS-CoV-2 (event) Yes [facility] Start: 04-30-2019 End: 10-11-2022 Cigarettes smoked current (pack per day) - Reported 0.[address] [facility] Start: 04-30-2019 End: 01-07-2022 Tobacco use and exposure Smokeless tobacco non-user [facility] Start: 06-28-2022 History SDOH Alcohol Frequency [address] [facility] Start: 06-28-2022 History SDOH Alcohol Std Drinks [address] [facility] Start: 06-28-2022 History SDOH Social Connections Phone [address] [facility] Start: 06-28-2022 History SDOH Social Connections Living [address] [facility] Start: 06-28-2022 History SDOH Physical Activity MPS [address] [facility] Start: 06-28-2022 End: 10-11-2022 Social connection and isolation panel [facility] Do you belong to any clubs or organizations such as holiness groups, unions, fraternal or athletic groups, or school groups? No [facility] Are you now , , , , never or living with a partner? [facility] How often to you hav e a drink containing alcohol? Never [facility] How many standard dr inks containing alcohol do you have on a typical day? Patient does not drink [facility] Do you feel stress - tense, restless, nervous, or anxious, or unable to sleep at night because your mind is troubled all the time - these days [OSQ] Only a little [facility] (I/We) worried wheth er (my/our) food would run out before (I/we) got money to buy more. Never true [facility] Start: 1980 Sex Assigned At Female [facility] Start: 11-15-2022 Gender identity Identifies as female gender (finding) [facility] Start: 11-15-2022 Sexual orientation Heterosexual (finding) [facility] Medical Equipment Procedure Code Equipment Code Equipment Origin al Text Equipment Identifier Dates [place] Iud [id number] - [id number] Start: 03-13-2013 Start: 01-30-2018 Clinical Notes 05-13-2014 to 05-10-2023 Telephone Encounter - Linda Butler Ma - 11/01/2022 9:10 AM EDTAddendum Note - Sonia Ortega PA-C - 11/01/2022 7:01 AM EDTTelephone Encounter - Sonia Ortega PA-C - 11/01/2022 6:55 AM EDT Note Date & Type Note Facility 05-10-2023 Note HNO ID: [id number] Author: Sonia ORTEGA PA-C Service: ? Author Type: Physician [employer] Type: Progress Notes Filed: 05/10/2023 10:03 Note Text: [employer] Video Call was used for evaluation of this patient. Location of patient: [place] Patient was offered a virtual/telemedicine appointment in lieu of an office visit due to recommendations to reduce patient exposure to COVID-19. Patient is aware of limitations of performing the visit without a face to face visit in the office setting and agrees. I have communicated my name and active licensure. The patient's identity and physical location were verified at the time of this visit. Either the patient or their legal textile designs sales representative has been informed of the risks and benefits of -- and alternatives to -- treatment through a remote evaluation and consents to proceed with the evaluation remotely. 9:15 AM waiting, unable to sign in to [employer] video. Transferred to [employer] with contact made 42 year old female with c/o UTI 2-3 days with pain on wiping. No discomfort with urination, Notes urine is dark. No fever, chills, N/V Just got over the flu, tested positive for influenza B. Drinking a lot of tea No back or flank pain. Having harsh cough making her have urinary incontinence. Having some irritation in vaginal area as a result. Sugars been high 420 day before yesterday, last checked. States she called Dr. Saul / [facility] pulm r/t URI with cough and some wheezing. Using inhalers. 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 12 Each 3 gabapentin (NEURONTIN) 300 mg capsule Take 1 capsule by mouth three times a day for 90 days. 90 capsule 2 empagliflozin (JARDIANCE) 25 mg tablet Take 1 tablet by mouth daily with breakfast. 30 tablet 5 insulin glargine (LANTUS SOLOSTAR U-100 INSULIN) 100 unit/mL (3 mL) Inject 25 Units subcutaneously daily at bedtime. 5 Each 3 linaGLIPtin (TRADJENTA) 5 mg tab Take 1 tablet by mouth once daily. 30 tablet 5 Insulin [place], Disposable, (SURE-FINE PEN NEEDLES) 31 gauge x [...] INTRAUTERINE route continuous. No current facility-administered medications for this visit. Hepatitis B Vaccine(1 of 3 - 3-dose series) Never done BP Controlled (<130/80) Never done Dilated Retinal Exam due on 11/24/2019 Pap Testing due on 02/07/2021 LDL Cholesterol due on 03/29/2021 HbA1C due on 07/26/2022 HPV Testing due on 02/07/2023 Depression Assessment due on 04/25/2023 Urine Albumin:Creatinine Ratio due on 04/27/2023 EXAM: LMP 02/23/2013 Pleasant obese adult woman in no acute distress. Alert and oriented all spheres. Normal affect and cognition. Speech normal. No deficits to learning or comprehension. Speaking in full sentences easily. No scleral icterus or conjunctival injection. Face appears flushed. Oral membranes appear (more content not included)... [facility] 02-24-2023 Note HNO ID: [id number] Author: Karen Pacheco RT(R) Service: ? Author Type: Instructional Designer Type: Progress Notes Filed: 02/24/2023 12:19 PM [...] RT Andrey(R) February 24, 2023 12:18 PM [facility] 02-24-2023 Note HNO ID: [id number] Author: Sonia Ortega PA-C Service: ? Author Type: Physician [employer]acer Type: Progress Notes Filed: 02/25/2023 5:45 PM [...] daily as needed. 2 Each 2 Insulin [place], Disposable, (SURE-FINE PEN NEEDLES) 31 gauge x [...] BP Controlled (<130/80 (more content not included)... [facility] 11-16-2022 Note HNO ID: [id number] Author: Inna Michel MD Service: ? Author [...] visit. Either the patient or their legal textile designs sales representative has been informed of the risks [...] by mouth once daily. flash glucose sensor (FREESTYLE ANA 2 SENSOR) kit 2 Each three times daily as needed. Insulin [place], Disposable, (SURE-FINE PEN NEEDLES) 31 gauge x [...] - CONSULT TO DERMATOLOGY Inna Michel MD [facility] 11-01-2022 Miscellaneous Notes 1EQt message sent to pt notifying her of response below from Provider. Linda Butler Ma Addended by: Sonia ORTEGA on: 11/01/2022 07:01 AM Modules accepted: Orders Please have her complete outstanding labs this as soon as possible. She can cut back glargine insulin to 25u due to low blood sugars over night since starting semaglutide. Get Medical Advice on 10/27/22 HGB A1C COMP METABOLIC PANEL Thanks, Ron Ortega PA-C documented in this encounter [facility] 10-27-2022 Miscellaneous Notes October 28, 2022 PID: [id number] Ezio Nielson [address] [place] [address] Dear Ms. Nielson, We are pleased to [...] report will be kept on file at [facility] as part of your permanent medical record and are available for your continuing care. Thank you for allowing us to help in meeting your health care needs. Sincerely, Dr. Pena Interpreting Radiologist [facility] (Normal over 40) documented in this encounter [facility] 10-25-2022 Note HNO ID: [id number] Author: RT Miranda(Franco) Service: ? Author Type: Instructional Designer Type: Progress Notes Filed: 10/25/2022 1:10 PM [...] RT Miranda(R) October 25, 2022 1:09 PM [facility] 10-25-2022 History of Present illness Narrative Radiology [...] 2022 1:09 PM documented in this encounter [facility] 10-11-2022 Note HNO ID: [id number] Author: Sonia Ortega PA-C Service: ? Author Type: Physician [employer] Kil[employer] Placer Type: Progress Notes Filed: 10/11/2022 7:33 PM [...] Each 2 empaglifl (more content not included)... [facility] 09-23-2022 Miscellaneous Notes Spoke to nurse listed [...] per week. Discard Pen After Authorizing Provider: Sonia ORTEGA PA-C Called to check on PA status through [employer] which states denied. [employer] advised will not cover unless 120 days or more of tried formulary options Truliicty, amaryl, tradjenta are tried Mag Alejandro Ma Prior Authorization has been completed online at [employer] for [employer], will await response. [id number] Please keep encounter open until final decision has been received and documented from insurance company. Mag Alejandro MA documented in this encounter [facility] 09-22-2022 Miscellaneous Notes Patient phones requesting refills [...] Alejandro Bates LPN documented in this encounter [facility] 07-21-2022 Miscellaneous Notes Patient has been identified [...] 03/29/2020 10.6 Please advise. Thank you. Margy Lancaster RN documented in this encounter [facility] 06-29-2022 Note HNO ID: [id number] Author: RT Melody(R) Service: Radiology Author Type: Technologist Type: Progress [...] RT Melody(R) June 29, 2022 3:40 PM [facility] 06-29-2022 Miscellaneous Notes Spoke with pt and information listed below given. Pt verbalizes understanding. Pt will come in to get done. Hermelinda Thurston LPN Attempted to contact patient, no answer and VM full. [employer] message sent. Monique Bright MA Please have her come in to repeat CXR- orders placed. Thanks, Ron Ortega PA-C documented in this encounter [facility] 06-29-2022 Miscellaneous Notes 9:30a.m SOLITARIO reading 204. Last meal around 1:30a.m Virginia Garcia documented in this encounter [facility] 06-28-2022 Note HNO ID: [id number] Author: Sonia Ortega PA-C Service: ? Author Type: Physician Glost Kiln Placer Type: Progress Notes Filed: 06/28/2022 6:57 PM [...] significant difficulty with testing 04/29/2022 chest x-ray [facility]: Persistent infiltration right lower lobe with a [...] Knee Morbid Obes (more content not included)... [facility] 06-28-2022 Instructions Sonia Ortega PA-C - 06/28/2022 3:26 PM EST Check blood sugars four times a day before meals and at bedtime x 1 week and send me results. Drink 64oz no caffeinated, non-alcoholic fluids daily. Taper prednisone as directed: call or mychart progress in 5 days documented in this encounter [facility] 06-28-2022 History of Present illness Narrative 41 [...] significant difficulty with testing 04/29/2022 chest x-ray [facility]: Persistent infiltration right lower lobe with a [...] Dystrophy Neuropathic Pain Rsd Lower Limb Lupus ([facility]) Fibromyalgia Patellofemoral Instability of Both Knees With [...] mouth twice daily. 180 tablet 0 Insulin [place], Disposable, (SURE-FINE PEN NEEDLES) 31 gauge x 3/16 Daily injections 100 Each 0 Lancets lancets [...] due to methicillin resistant Staphylococcus aureus (MRSA) ([facility]) - ICD9: 482.42, ICD10: J15.212 (primary diagnosis) Need a repeat chest x-ray due to her current issues. - XR CHEST 2V FRONTAL/LAT 2. Lupus ([facility]) - ICD9: 710.0, ICD10: M32.9 Has been [...] hyperglycemia, with long-term current use of insulin ([facility]) - ICD9: 250.00, 790.29, V58.67, ICD10: E11.65, [...] Discussed need to follow up with rheum. Sonia Ortega PA-C documented in this encounter [facility] 06-22-2022 Miscellaneous Notes Due for follow-up. Script [...] Alejandro Bates LPN documented in this encounter [facility] 05-26-2022 Note Patient Outreach (IN TMMN) -------- EZIO NIELSON ([id number]) 1980 F Date Time Provider Department 05/26/22 Sonia ORTEGA During your visit today, we recorded [...] for screening mammogram for breast cancer [Z12.31] Order(s):[facility] SCREENING [2832555] Order #: [id number] FUTURE Prescriptions as of 05/31/2022 - amoxicillin [...] then twice weekly for maintenance. - Insulin [place], Disposable, (SURE-FINE PEN NEEDLES) 31 gauge x [...] Mixed hyperlipidemia [E78.2] 10/01/2021 Encounter Status:Closed by EPIC, PRODUSER on 05/31/22 [facility] 05-04-2022 Miscellaneous Notes Notified of result via [employer]harjhonny Ortega PA-C documented in this encounter [facility] 04-23-2022 History of Present illness Narrative 41 year old female with c/o hospital discharge follow up Hospital admission discharge follow-up: Date of admission 04/07/2022 Date of discharge 04/12/2022 Discharge diagnoses: 1. Community-acquired pneumonia due to methicillin-resistant staph aureus 2. Acute respiratory failure with hypoxemia 04/02/2022 presented to [facility] emergency department with complaint of 3 to [...] syrup, 140 mL 04/07/2022 Returned to the [facility] emergency department with complaint of upper respiratory infection over 10 days with known positive influenza A, using [id number]-[id number] medications but progressively short of breath coughing up yellow-green sputum over the last few days. States she quit smoking 5 days prior. Increased cough, shortness of breath, mild dyspnea on exertion. 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 2 Each 2 Insulin [place], Disposable, (SURE-FINE PEN NEEDLES) 31 gauge x [...] due to methicillin resistant Staphylococcus aureus (MRSA) (HCC) - ICD9: 482.42, ICD10: J15.212 (primary diagnosis) [...] NICOTINE 21 MG/24 HR DAILY TRANSDERMAL PATCH Sonia Ortega PA-C Some of this note may have been copied and pasted for the purpose of history context and comparison. documented in this encounter [facility] 04-22-2022 Miscellaneous Notes Both listed contacts inactive, will send letter to listed address. Heather Nunn MA Attempted to contact with voice recording stating that customer is not available to try again later. Becky Douglass LPN Please notify that fungal culture became positive, continue treatment, f/u if s/s persist documented in this encounter [facility] 04-20-2022 Miscellaneous Notes 3rd attempt to reach pt without success. Still unable to reach patient.Evelyn Robles LPN Unable to reach patient. Mailbox full/Mailbox not set up/ Number incorrect. Please try again later. Ezio Quevedo No fungal growth after 3 days. Will call again if culture changes. documented in this encounter [facility] 04-15-2022 History of Present illness Narrative Images from the original note were not included. Subjective The history is provided by the patient. No breast buffer was used. HPI Ezio Nielson is a [...] have confirmed and edited as necessary, the [facility] Review of Systems Constitutional: Negative for [...] detail warranting prompt ER evaluation. Ines Ryan APRN.LILA documented in this encounter [facility] 01-11-2022 History of Present illness Narrative Chief [...] 30 Units subcutaneously daily at bedtime. Insulin [place], Disposable, (SURE-FINE PEN NEEDLES) 31 gauge x [...] loss - Discussed diabetic education issues of nursing home diabetic complications, hypoglycemic symptoms, hyperglycemic symptoms, diet, medications- side effects and need for compliance, importance of exercise, use and side effects of insulin, importance of appointments with Cardiovascular Tech, and importance of annual examinations with Opthalmology [...] agreeable to treatment plan. Madhuri Gibbs APRN.LILA [address] [place] [address] documented in this encounter [facility] 10-15-2021 History of Present illness Narrative This note was created using [employer]. Subjective Ezio Nielson is a 41 year old female. 41 year old female with PMH of HTN, DM, Fibromyalgia, and Lupus presents with complaints of abscess to scalp. Acute onset 4 days Locates pain left portion of head. States pain is 10/10. 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 My sugars have been running high The history is provided by the patient. No breast buffer was used. Abscess This is a new [...] 30 Units subcutaneously daily at bedtime. Insulin [place], Disposable, (SURE-FINE PEN NEEDLES) 31 gauge x [...] - Discussed expected course of illness Sharda Jarrellus TEACHING PROVIDER (Physician/PA/MEDICAL BILLING AND CODING SPECIALIST) NOTE OF PERSONAL INVOLVEMENT IN CARE: I have personally seen and examined the patient and performed the medical decision-making components. I have reviewed the Advanced Practice Registered Nurse (MEDICAL BILLING AND CODING SPECIALIST) Student's documentation and verified the findings in the note as written. Any additions or changes are noted in bold/italics. Signature: Tracy Meyer Date: 10/15/2021 Time: 3:30 PM documented in this encounter [facility] 10-15-2021 Instructions Tracy Meyer APRN.LILA - 10/15/2021 [...] after 3-4 days. documented in this encounter [facility] 10-01-2021 History of Present illness Narrative Patient left without being seen and notified no one. No valid phone number No XO [place]. Ron Ortega PA-C documented in this encounter [facility] 07-15-2021 Miscellaneous Notes Attempted to call, but [...] Janis Velazco APRN.CNM documented in this encounter [facility] 07-13-2021 Instructions Tracy Aguillon APRN.CNM - 07/13/2021 [...] safe to do so in terms of payable processor heart disease risk. HT and breast cancer [...] Women: Randomized Trial. BMJ Jan 2012. [place] [employer]. The 2012 hormone therapy position statement Accessed 09/21/12. [place] [employer]. [place] [employer] Medical Guidelines for [...] an alternate prescription. documented in this encounter [facility] 07-13-2021 History of Present illness Narrative Ezio [...] L3 SAB0 IAB0 Ectopic0 Multiple0 Live Births0 Hip Hop Performers History LMP: 08/07/2013, IUD Age at Menarche: Age at First : Age at Menopause: Hip Hop Performers History Comments: Sexual Activity: Yes; Male; Mirena [...] 1 capsule by mouth once daily. Insulin [place], Disposable, (SURE-FINE PEN NEEDLES) 31 gauge x [...] external genitalia normal, normal Bartholin's glands, urethra, Grape[place]'s glands, no vulvar lesions, no cervical lesions, [...] Tracy Aguillon APRN.CNM documented in this encounter [facility] documented as of this encounter (statuses as of 10/02/2021) [place] [id number] History of Past illness Narrative* Problem Noted Date Resolved Date Dyslipidemia 01/12/2016 10/01/2021 Pain in limb 05/13/2014 06/07/2016 Chest pain, atypical 06/04/2013 06/07/2016 documented as of this encounter (statuses as of 10/15/2021) [facility] History of Past illness Narrative* Problem Noted Date Resolved Date Dyslipidemia 01/12/2016 10/01/2021 Pain in limb 05/13/2014 06/07/2016 Chest pain, atypical 06/04/2013 06/07/2016 documented as of this encounter (statuses as of 01/04/2022) [address]19-2016 History of Past illness Narrative* Problem Noted Date Resolved Date Dyslipidemia 01/12/2016 10/01/2021 Pain in limb 05/13/2014 06/07/2016 Chest pain, atypical 06/04/2013 06/07/2016 documented as of this encounter (statuses as of 01/11/2022) [facility] History of Past illness Narrative* Problem Noted Date Resolved Date Dyslipidemia 01/12/2016 10/01/2021 Pain in limb 05/13/2014 06/07/2016 Chest pain, atypical 06/04/2013 06/07/2016 documented as of this encounter (statuses as of 04/16/2022) [place] [id number] History of Past illness Narrative* Problem Noted Date Resolved Date Dyslipidemia 01/12/2016 10/01/2021 Pain in limb 05/13/2014 06/07/2016 Chest pain, atypical 06/04/2013 06/07/2016 documented as of this encounter (statuses as of 04/26/2022) [address]19-2016 History of Past illness Narrative* Problem Noted Date Resolved Date Dyslipidemia 01/12/2016 10/01/2021 Pain in limb 05/13/2014 06/07/2016 Chest pain, atypical 06/04/2013 06/07/2016 documented as of this encounter (statuses as of 04/28/2022) [address]19-2016 History of Past illness Narrative* Problem Noted Date Resolved Date Dyslipidemia 01/12/2016 10/01/2021 Pain in limb 05/13/2014 06/07/2016 Chest pain, atypical 06/04/2013 06/07/2016 documented as of this encounter (statuses as of 04/29/2022) [address]19-2016 History of Past illness Narrative* Problem Noted Date Resolved Date Dyslipidemia 01/12/2016 10/01/2021 Pain in limb 05/13/2014 06/07/2016 Chest pain, atypical 06/04/2013 06/07/2016 documented as of this encounter (statuses as of 05/05/2022) [address]19-2016 History of Past illness Narrative* Problem Noted Date Resolved Date Dyslipidemia 01/12/2016 10/01/2021 Pain in limb 05/13/2014 06/07/2016 Chest pain, atypical 06/04/2013 06/07/2016 documented as of this encounter (statuses as of 05/31/2022) [address]19-2016 History of Past illness Narrative* Problem Noted Date Resolved Date Dyslipidemia 01/12/2016 10/01/2021 Pain in limb 05/13/2014 06/07/2016 Chest pain, atypical 06/04/2013 06/07/2016 documented as of this encounter (statuses as of 06/23/2022) [address]19-2016 History of Past illness Narrative* Problem Noted Date Resolved Date Dyslipidemia 01/12/2016 10/01/2021 Pain in limb 05/13/2014 06/07/2016 Chest pain, atypical 06/04/2013 06/07/2016 documented as of this encounter (statuses as of 06/29/2022) [address]19-2016 History of Past illness Narrative* Problem Noted Date Resolved Date Dyslipidemia 01/12/2016 10/01/2021 Pain in limb 05/13/2014 06/07/2016 Chest pain, atypical 06/04/2013 06/07/2016 documented as of this encounter (statuses as of 06/29/2022) [address]19-2016 History of Past illness Narrative* Problem Noted Date Resolved Date Dyslipidemia 01/12/2016 10/01/2021 Pain in limb 05/13/2014 06/07/2016 Chest pain, atypical 06/04/2013 06/07/2016 documented as of this encounter (statuses as of 06/30/2022) [facility] History of Past illness Narrative* Problem Noted Date Resolved Date Dyslipidemia 01/12/2016 10/01/2021 Pain in limb 05/13/2014 06/07/2016 Chest pain, atypical 06/04/2013 06/07/2016 documented as of this encounter (statuses as of 07/21/2022) [address]19-2016 History of Past illness Narrative* Problem Noted Date Resolved Date Dyslipidemia 01/12/2016 10/01/2021 Pain in limb 05/13/2014 06/07/2016 Chest pain, atypical 06/04/2013 06/07/2016 documented as of this encounter (statuses as of 09/22/2022) [facility] History of Past illness Narrative* Problem Noted Date Resolved Date Dyslipidemia 01/12/2016 10/01/2021 Pain in limb 05/13/2014 06/07/2016 Chest pain, atypical 06/04/2013 06/07/2016 documented as of this encounter (statuses as of 10/29/2022) [facility] History of Past illness Narrative* Problem Noted Date Diagnosed Date Resolved Date Dyslipidemia 01/12/2016 10/01/2021 Pain in limb 05/13/2014 06/07/2016 Chest pain, atypical 06/04/2013 017 documented as of this encounter (statuses as of 11/01/2022) [facility] History of Past illness Narrative* Problem Noted Date Diagnosed Date Resolved Date Dyslipidemia 01/12/2016 10/01/2021 Pain in limb 05/13/2014 06/07/2016 Chest pain, atypical 06/04/2013 017 documented as of this encounter (statuses as of 11/17/2022) [facility] History of Past illness Narrative* Problem Noted Date Diagnosed Date Resolved Date Dyslipidemia 01/12/2016 10/01/2021 Pain in limb 05/13/2014 06/07/2016 Chest pain, atypical 06/04/2013 017 documented as of this encounter (statuses as of 02/27/2023) [address]19-2015 History of Past illness Narrative* Problem Noted Date Resolved Date Pain in limb 05/13/2014 06/07/2016 Chest pain, atypical 06/04/2013 06/07/2016 documented as of this encounter (statuses as of 07/13/2021) [facility] History of Past illness Narrative* Problem Noted Date Resolved Date Pain in limb 05/13/2014 06/07/2016 Chest pain, atypical 06/04/2013 06/07/2016 documented as of this encounter (statuses as of 07/15/2021) [facility] note* Diagnosis Vaginal burning- Primary Other specified symptom associated with female genital organs Screen for STD (sexually transmitted disease) Screening examination for venereal disease Vaginal atrophy Postmenopausal atrophic vaginitis IUD check up Surveillance of previously prescribed intrauterine contraceptive device [facility] Diagnosis Chest pain in adult- Primary Essential hypertension Unspecified essential hypertension Mixed hyperlipidemia Type 2 diabetes mellitus with hyperglycemia, with long-term current use of insulin ([facility]) Lupus ([facility]) Systemic lupus erythematosus Chronic pain of right knee 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 Complex regional pain syndrome type 1 of right lower extremity Fibromyalgia Mylagia and myositis, unspecified Neuropathic pain Neuralgia, neuritis, and radiculitis, unspecified [facility] Diagnosis Abscess, scalp- Primary Cellulitis and abscess of other specified site [facility]* Diagnosis Encounter for screening mammogram for breast cancer [facility] Diagnosis Type 2 diabetes mellitus with hyperglycemia, with long-term current use of insulin ([facility])- Primary Mixed hyperlipidemia Recurrent UTI (urinary tract infection) Urinary tract infection, site not specified Middle ear effusion, left [facility] Diagnosis Tongue plaque- Primary Leukoplakia of oral mucosa, including tongue [facility]* Diagnosis Pneumonia of right lower lobe due to methicillin resistant Staphylococcus aureus (MRSA) ([facility])- Primary Hospital discharge follow-up Other follow-up examination Influenza A Influenza with other respiratory manifestations Type 2 diabetes mellitus with hyperglycemia, with long-term current use of insulin ([facility]) Adenopathy, hilar right Enlargement of lymph nodes Essential hypertension Unspecified essential hypertension Tobacco abuse Tobacco use disorder [facility] Diagnosis Encounter for screening mammogram for breast cancer documented in this encounter [facility] note* Diagnosis Pneumonia of right lower lobe due to methicillin resistant Staphylococcus aureus (MRSA) (HCC)- Primary Lupus (HCC) Systemic lupus erythematosus Type 2 diabetes mellitus with hyperglycemia, with long-term current use of insulin (HCC) Fatigue, unspecified type documented in this encounter [facility] note* Diagnosis Type 2 diabetes mellitus with hyperglycemia, with long-term current use of insulin (HCC)- Primary [facility]* Diagnosis Encounter for screening mammogram for breast cancer [facility] Outpatient Procedure (Routine) - Pending Review Specialty Diagnoses / Procedures Referred By Leanne barry Referred To Contact [facility] Diagnoses IUD check up Procedures REMOVE INTRAUTERINE DEVICE REMOVE INTRAUTERINE DEVICE Tracy Aguillon APRN.CNM [address] [place] [address] [facility] [address] [place] [address] Referral ID Status Reason Start Date Expiration Date Visits Requested Visits Authorized [id number] Pending Review Auto-Generat ed Referral 07/13/2021 07/13/2022 1 1 [facility] Diagnostic Procedure Only (Routine) - Pending Review Specialty Diagnoses / Procedures Referred By Leanne barry Referred To Contact [facility] Diagnoses Encounter for screening mammogram for breast cancer Procedures MENDEL SCREENING SCREENING MAMMOGRAPHY BI 2-VIEW BREAST INC CAD Sonia Ortega PA-C [address] [place] [address] [facility] [address] [place] [address] Referral ID Status Reason Start Date Expiration Date Visits Requested Visits Authorized [id number] Pending Review Auto-Generat ed Referral 12/30/2021 01/29/2023 1 1 [facility] (n[facility]ative[facility] Diagnostic Procedure Only (Routine) - Pending Review Specialty Diagnoses / Procedures Referred By Leanne barry Referred To Contact [facility] Diagnoses Encounter for screening mammogram for breast cancer Procedures MENDEL SCREENING SCREENING MAMMOGRAPHY BI 2-VIEW BREAST INC Sonia Alberto PA-C [address] [place] [address] [facility] [address] [place] [address] Referral ID Status Reason Start Date Expiration Date Visits Requested Visits Authorized [id number] Pending Review Auto-Generat ed Referral 05/26/2022 06/25/2023 1 1 [facility] for referral (narrative)* Diagnostic Procedure Only (Routine) - Closed Specialty Diagnoses / Procedures Referred By Leanne barry Referred To Contact [facility] Diagnoses Encounter for screening mammogram for breast cancer Procedures MENDEL SCREENING SCREENING MAMMOGRAPHY BI 2-VIEW BREAST INC Sonia Alberto PA-C [address] [place] [address] [facility] [address] [place] [address] Referral ID Status Reason Start Date Expiration Date V isits Requested Visits Authorized [id number] Closed Auto-Generate d Referral 05/26/2022 06/25/2023 1 1 [facility] for visit Narrative* Diagnostic Procedure Only (Routine) - Closed Specialty Diagnoses / Procedures Referred By Leanne t Referred To Contact [facility] Diagnoses Encounter for screening mammogram for breast cancer Procedures MENDEL SCREENING SCREENING MAMMOGRAPHY BI 2-VIEW BREAST INC Sonia Alberto PA-C [address] [place] [address] [facility] [address] [place] [address] Referral ID Status Reason Start Date Expiration Date V isits Requested Visits Authorized [id number] Closed Auto-Generate d Referral 05/26/2022 06/25/[address] [facility] Summary Purpose Family History No Family History Records FoundNo Family History Records FoundNo Family History Records FoundNo Family History Records Found Advance Directives No Advanced Directives Records FoundDocuments on File Type Date Recorded 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 Advance Directive(s) 05/01/2019 9:53 AM Advance Directive(s) 04/30/2019 8:07 PM Advance Directive(s) 02/27/2019 8:50 AM Advance Directive(s) 02/19/2019 8:45 AM Advance Directive(s) 05/03/2017 7:39 AM Advance Directive(s) 04/26/2017 3:39 PM Documents on File Type Date Recorded 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 Advance Directive(s) 05/01/2019 9:53 AM Advance Directive(s) 04/30/2019 8:07 PM Advance Directive(s) 02/27/2019 8:50 AM Advance Directive(s) 02/19/2019 8:45 AM Advance Directive(s) 05/03/2017 7:39 AM Advance Directive(s) 04/26/2017 3:39 PM Reason for Referral Specialty Diagnoses / Procedures Referred By Leanne barry Referred To Contact Diagnoses Type 2 diabetes mellitus with hyperglycemia, with long-term current use of insulin ([facility]) Madhuri Gibbs, MEDICAL BILLING AND CODING SPECIALIST.SEISMOMETER OPERATOR [address] [place] [address] Referral ID Status Reason Start Date Expiration Date Visits Re quested Visits Authorized [id number] Closed 1 1 Additional Source Comments INFORMATION SOURCE (unrecogn ized section and content) DATE CREATED AUTHOR AUTHOR'S ORGANIZ ATION 05/04/2019 [facility] DATE CREATED AUTHOR AUTHOR'S ORGANIZ ATION 06/27/2019 [facility] ([place] DATE CREATED AUTHOR AUTHOR'S ORGANIZ ATION 05/11/2023 [facility] Source Comments (unrecognize d section and content) In the event this informatio n is protected by the Federal Confidentiality of Alcohol and Drug Abuse Patient Records regulations: The Federal rules restrict any use of the information to criminally investigate or prosecute any alcohol or drug abuse patient.[facility] the event this information is protected by the Federal Confidentiality of Alcohol and Drug Abuse Patient Records regulations: The Federal rules restrict any use of the information to criminally investigate or prosecute any alcohol or drug abuse patient.[facility]In the event this information is protected by the Federal Confidentiality of Alcohol and Drug Abuse Patient Records regulations: The Federal rules restrict any use of the information to criminally investigate or prosecute any alcohol or drug abuse patient.[facility] the event this information is protected by the Federal Confidentiality of Alcohol and Drug Abuse Patient Records regulations: The Federal rules restrict any use of the information to criminally investigate or prosecute any alcohol or drug abuse patient.[facility]In the event this information is protected by the Federal Confidentiality of Alcohol and Drug Abuse Patient Records regulations: The Federal rules restrict any use of the information to criminally investigate or prosecute any alcohol or drug abuse patient.[facility]In the event this information is protected by the Federal Confidentiality of Alcohol and Drug Abuse Patient Records regulations: The Federal rules restrict any use of the information to criminally investigate or prosecute any alcohol or drug abuse patient.[facility] HospitalIn the event this information is protected by the Federal Confidentiality of Alcohol and Drug Abuse Patient Records regulations: The Federal rules restrict any use of the information to criminally investigate or prosecute any alcohol or drug abuse patient.[facility]In the event this information is protected by the Federal Confidentiality of Alcohol and Drug Abuse Patient Records regulations: The Federal rules restrict any use of the information to criminally investigate or prosecute any alcohol or drug abuse patient.[facility]In the event this information is protected by the Federal Confidentiality of Alcohol and Drug Abuse Patient Records regulations: The Federal rules restrict any use of the information to criminally investigate or prosecute any alcohol or drug abuse patient.[facility]In the event this information is protected by the Federal Confidentiality of Alcohol and Drug Abuse Patient Records regulations: The Federal rules restrict any use of the information to criminally investigate or prosecute any alcohol or drug abuse patient.[facility]In the event this information is protected by the Federal Confidentiality of Alcohol and Drug Abuse Patient Records regulations: The Federal rules restrict any use of the information to criminally investigate or prosecute any alcohol or drug abuse patient.[facility] HospitalIn the event this information is protected by the Federal Confidentiality of Alcohol and Drug Abuse Patient Records regulations: The Federal rules restrict any use of the information to criminally investigate or prosecute any alcohol or drug abuse patient.[facility] HospitalIn the event this information is protected by the Federal Confidentiality of Alcohol and Drug Abuse Patient Records regulations: The Federal rules restrict any use of the information to criminally investigate or prosecute any alcohol or drug abuse patient.[facility] HospitalIn the event this information is protected by the Federal Confidentiality of Alcohol and Drug Abuse Patient Records regulations: The Federal rules restrict any use of the information to criminally investigate or prosecute any alcohol or drug abuse patient.[facility] HospitalIn the event this information is protected by the Federal Confidentiality of Alcohol and Drug Abuse Patient Records regulations: The Federal rules restrict any use of the information to criminally investigate or prosecute any alcohol or drug abuse patient.[facility] HospitalIn the event this information is protected by the Federal Confidentiality of Alcohol and Drug Abuse Patient Records regulations: The Federal rules restrict any use of the information to criminally investigate or prosecute any alcohol or drug abuse patient.[facility] HospitalIn the event this information is protected by the Federal Confidentiality of Alcohol and Drug Abuse Patient Records regulations: The Federal rules restrict any use of the information to criminally investigate or prosecute any alcohol or drug abuse patient.[facility] HospitalIn the event this information is protected by the Federal Confidentiality of Alcohol and Drug Abuse Patient Records regulations: The Federal rules restrict any use of the information to criminally investigate or prosecute any alcohol or drug abuse patient.[facility] HospitalIn the event this information is protected by the Federal Confidentiality of Alcohol and Drug Abuse Patient Records regulations: The Federal rules restrict any use of the information to criminally investigate or prosecute any alcohol or drug abuse patient.[facility] HospitalIn the event this information is protected by the Federal Confidentiality of Alcohol and Drug Abuse Patient Records regulations: The Federal rules restrict any use of the information to criminally investigate or prosecute any alcohol or drug abuse patient.[facility] HospitalIn the event this information is protected by the Federal Confidentiality of Alcohol and Drug Abuse Patient Records regulations: The Federal rules restrict any use of the information to criminally investigate or prosecute any alcohol or drug abuse patient.[facility] HospitalIn the event this information is protected by the Federal Confidentiality of Alcohol and Drug Abuse Patient Records regulations: The Federal rules restrict any use of the information to criminally investigate or prosecute any alcohol or drug abuse patient.[facility] Reason for Visit (unrecogniz ed section and [...] Care Teams (unrecognized sec tion and content) [employer] Relationship Specialty Start Date End Date Sonia Ortega PA-C [address] [place], [place] [id number] PCP - General Family Practice 06/07/16 [employer] Relationship Specialty Start Date End Date Sonia Ortega PA-C [address] [place], [place] [id number] PCP - General Family Practice 06/07/16 [employer] Relationship Specialty Start Date End Date Sonia Ortega PA-C [address] [facility] [place] [address] PCP - General Family Practice 06/07/16 [employer] Relationship Specialty Start Date End Date Sonia Ortega PA-C [address] [place] [address] PCP - General Family Practice 06/07/16 [employer] Relationship Specialty Start Date End Date Sonia Ortega PA-C [address] [facility] [address] PCP - General Family Practice 06/07/16 [employer] Relationship Specialty Start Date End Date Sonia Ortega PA-C [address] [place] [address] PCP - General Family Medicine 06/07/16 [employer] Relationship Specialty Start Date End Date Sonia rOtega PA-C [address] [facility] [address] PCP - General Family Medicine 06/07/16 [employer] Relationship Specialty Start Date End Date Sonia Ortega PA-C [address] [facility] [place] [address] PCP - General Family Medicine 06/07/16 [employer] Relationship Specialty Start Date End Date Sonia Ortega PA-C [address] [facility] [place] [address] PCP - General Family Medicine 06/07/16 [employer] Relationship Specialty Start Date End Date Sonia Ortega PA-C [address] [facility] [place] [address] PCP - General Family Medicine 06/07/16 [employer] Relationship Specialty Start Date End Date Sonia Ortega PA-C [address] [place] [address] PCP - General Family Medicine 06/07/16 [employer] Relationship Specialty Start Date End Date Sonia Ortega PA-C [address] [place] [address] PCP - General Family Medicine 06/07/16 [employer] Relationship Specialty Start Date End Date Sonia Ortega PA-C [address] [place] [address] PCP - General Family Medicine 06/07/16 [employer] Relationship Specialty Start Date End Date Sonia Ortega PA-C [address] [place] [address] PCP - General Family Medicine 06/07/16 [employer] Relationship Specialty Start Date End Date Sonia Ortega PA-C [address] [place] [address] PCP - General Family Medicine 06/07/16 [employer] Relationship Specialty Start Date End Date Sonia Ortega PA-C [address] [place] [address] PCP - General Family Medicine 06/07/16 [employer] Relationship Specialty Start Date End Date Sonia Ortega PA-C [address] [place] [address] PCP - General Family Medicine 06/07/16 [employer] Relationship Specialty Start Date End Date Sonia Ortega PA-C [address] [place] [address] PCP - General Family Medicine 06/07/16 [employer] Relationship Specialty Start Date End Date Sonia Ortega PA-C [address] [place] [address] PCP - General Family Medicine 06/07/16 FOR [...] BE BASED ON THE PRIMARY CLINICAL RECORDS. [facility] [employer] [facility]. provides no warranty or guarantee of the accuracy or completeness of information in this document.
== END | disposition home or self-care (01) ==
LOC: LABSPEC 11:31
PROVIDERS: PCP Family Medicine; Referring Provider Nurse Practitioner Acute Care; Visit Provider Nurse Practitioner Acute Care
DX: R05.9 Cough, unspecified (principal)
CPT/HCPCS: 87070; 87077; 87205

== ENCOUNTER 2023-05-27 09:10 | Emergency (ER) | payer MEDICAID, SELFPAY ==
[2023-05-27 09:10] VITALS: BP 152/89; PULSE 99; RESP 16; TEMP 36; O2SAT 97; BMI 36.8
--- NOTE | 2023-05-27 09:36 | EDS_ITS ---
HPI HPI - URI History of Present Illness Chief Complaint: Cold Sx Informant: patient Onset/Context/Timing Onset: Days Context: Gradual Onset Timing: Continuous Current Severity: Mild Maximum Severity: Mild Associated Symptoms Associated Symptoms: Positive for Nasal Congestion, Myalgias, Diarrhea and Productive Cough (Clear sputum.) Narrative Narrative: 42-year-old female history of diabetes states her sugars been running around 115. URI symptoms with cough and sore throat for a week. Mild diarrhea. No vomiting. Subjective fever and chills. Productive cough of clear sputum. Prior similar symptoms: Yes Recent Illness/Hospitalization: No ROS ROS ED ROS Narrative Cough. Subjective fever and chills. Sore throat. Review of Systems ROS Unobtainable: Denies due to encephalopathy Constitutional Constitutional ED: Reports chills, fever(s) and subjective Eyes Eyes: Denies blurry vision ENT ENT ED: Denies ear pain Cardiovascular Cardiovascular: Denies chest pain Respiratory/Chest Respiratory/Chest: Reports cough; Denies dyspnea or dyspnea on exertion Gastrointestinal Gastrointestinal: Reports diarrhea; Denies abdominal pain, constipation, melena, nausea or vomiting Genitourinary Genitourinary ED: Denies dysuria or hematuria Musculoskeletal Musculoskeletal: Denies arthralgias or back pain Integumentary Denies abscess or Abrasions Neurologic Neurologic: Denies headache(s) or paresthesias Psychiatric Psychiatric: Denies anxiety or depression Endocrine Endocrinology: Denies cold intolerance Hematologic/Lymphatic Hematologic/Lymphatic: Denies easy bleeding Allergic/Immunologic Allergic/Immunologic ED: Denies mouth swelling or tongue swelling PFSH PFSH Medical History Acute respiratory failure with hypoxemia Anxiety Cellulitis of foot, right Chest pain Community acquired pneumonia due to methicillin resistant Staphylococcus aureus (MRSA) Diabetes HTN (hypertension) Leaky heart valve Lupus Physical exam, pre-employment Home Medications insulin glargine 100 unit/mL (3 mL) subcutaneous pen 30 unit SQ QHS DM 04/29/17 [History Last Taken 04/05/22] empagliflozin 10 mg tablet (Jardiance) 10 mg PO DAILY 07/07/22 [History Last Taken Unknown] albuterol sulfate 90 mcg/actuation aerosol inhaler (Ventolin HFA) 2 puff inhalation Q4H PRN shortness of breath or wheezing #18 grams 07/08/22 [Rx Last Taken Unknown] linagliptin 5 mg tablet (Tradjenta) 5 mg PO DAILY 10/15/22 [History Last Taken Unknown] tiotropium 2.5 mcg-olodaterol 2.5 mcg/actuation mist for inhalation (Stiolto Respimat) 2 inh inhalation DAILY #4 grams 12/16/22 [Rx Last Taken Unknown] benzonatate 200 mg capsule 200 mg PO TID PRN cough #20 caps 04/30/23 [Rx Last Taken Unknown] fluconazole 150 mg tablet 150 mg PO .COMPLEX 05/11/23 [History Last Taken Unknown] gabapentin 300 mg capsule 300 mg PO BID 05/11/23 [History Last Taken Unknown] ipratropium 0.5 mg-albuterol 3 mg (2.5 mg base)/3 mL nebulization soln 3 ml inhalation Q4H PRN PRN SOB &/OR WHEEZING #180 mL 05/11/23 [Rx Last Taken Unknown] nitrofurantoin monohydrate/macrocrystals 100 mg capsule 100 mg PO BID 05/11/23 [History Last Taken Unknown] doxycycline hyclate 100 mg tablet 100 mg PO BID #20 tabs 05/16/23 [Rx Last Taken Unknown] prednisone 10 mg tablet 10 mg PO QDAY #30 tabs 05/16/23 [Rx Last Taken Unknown] Allergy/AdvReac Type Severity Reaction Status Date / Time cetirizine HCl [From Zyrtec] Allergy Hives Verified 05/11/23 11:03 prochlorperazine edisylate Allergy Hives Verified 05/11/23 11:03 [From Compazine] prochlorperazine maleate Allergy Hives Verified 05/11/23 11:03 [From Compazine] acetaminophen [From Percocet] AdvReac Nausea/Vom/ Verified 05/11/23 11:03 Diarrhea oxycodone [From Percocet] AdvReac Nausea/Vom/ Verified 05/11/23 11:03 Diarrhea Family History (Reviewed 05/11/23 @ 11:20 by Audra Mcintosh [employer] TECHNICIAN, [employer]EVEL AUTOMOTIVE TECHNICIAN-C) Mother Diabetes Hypertension Father Diabetes Surgical History S/P laparoscopic cholecystectomy Social History Smoking Status: Current every day smoker tobacco type: cigarettes alcohol intake: never EXAM Physical Exam Narrative Exam Narrative: Well-appearing 42-year-old female. Vital signs stable afebrile. Pulse ox 97% on room air no hypoxia. HEENT exam posterior pharynx erythematous. Small exudate. No peritonsillar abscess. No stridor or drooling. No trouble swallowing. Tonsils not touching. TMs normal. Neck nontender no lymphadenopathy. No meningismus. Lungs clear to auscultation bilaterally. Heart regular rhythm no murmur. Chest wall and ribs nontender. Abdomen soft nontender. Moving all 4 extremities. Calves are nontender without edema or cords. Neurologically she is awake and alert with no focal motor deficits. Const Vital Signs: 05/27/23 09:10 05/27/23 09:10 Temperature 96.8 F L Temperature Source Temporal Pulse Rate 99 Respiratory Rate 16 Respiratory Pattern Normal Blood Pressure 152/89 H Blood Pressure Mean 110 Pulse Ox 97 Oxygen Delivery Method Room Air Positive well nourished and well developed; Negative for cachectic or contractures General Appearance ED: well developed and NAD; Negative for cachectic, contractures, cyanotic, diaphoretic or pallor Nutritional Appearance: Negative for cachectic HEENT Reports moist mucous membranes; Denies dry mucous membranes normocephalic and atraumatic; Negative for scalp tenderness Face and Sinus: Negative for sinus tenderness Mouth ED: No dry mucous membranes Mouth: No dry mucous membranes Teeth and Gingiva: Negative for caries Throat: posterior oropharynx abnormal Positive for edema, erythema and exudates; Negative for posterior oropharynx normal Eyes PERRL General Eye ED: Yes pale conjunctiva, scleral icterus and other Neck no lymphadenopathy, supple, no meningeal signs and no JVD General: Negative for anterior neck swelling, lymphadenopathy or other Resp normal respiratory effort and clear to auscultation bilaterally Effort and Inspection: Negative for retractions Auscultation: Negative for rales, rhonchi or wheezes Cardio S1 normal heart sound, S2 normal heart sound and no murmurs Rate: regular rate; Negative for bradycardia or tachycardic Rhythm: regular rhythm GI non-tender, non-distended and no masses Inspection: Negative for abdominal distention Auscultation: normoactive bowel sounds Palpation: soft; Negative for tender or guarding Back/Spine no CVA tenderness; Negative for normal ROM General Back: Negative for CVA tenderness Cervical Spine: Negative for cervical spine tenderness Thoracic Spine / Upper Back: Negative for thoracic spinal tenderness Lumbar Spine / Lower Back: Negative for lumbar spinal tenderness Sacrum: Negative for tenderness Extremity normal to inspection and full ROM General Extremety ED: Negative for cyanosis, tenderness or other findings General Extremity: Negative for cyanosis or other findings Neuro oriented x3 and CN's II-XII intact bilaterally Sensorium / Orientation: alert, oriented to person, oriented to place and oriented to time; Negative for orientation impaired or lethargic Motor Exam: strength 5/5 throughout Psych mental status grossly normal Appearance: Negative for other Attitude: No agitated Mood & Affect: Negative for depressed, anxious or tearful Skin General Skin Exam: Negative for jaundice or pallor Lesions: no lesions Rashes: no rashes Trauma: Negative for abrasion or laceration MDM MDM MDM Narrative Medical decision making narrative: 42-year-old diabetic female with URI symptoms. Rapid strep COVID and flu are being obtained. Clinically stable. Stable vital signs. Nurses informing patient left about an hour and or visit. I did check a rapid strep is negative COVID is pending. COVID, flu and influenza negative also. History & Record Review Discussion w/independent historian: Patient Lab Data Attestation: I reviewed the patient's lab results. Lab results narrative: Rapid strep negative. COVID, flu and influenza negative also. Discharge Plan Triage Chief Complaint: Cold Sx ED Provider: Guerrero Damon Dx/Rx/DC Orders Clinical Impression: Viral syndrome Prescriptions: No Action Jardiance 10 mg tablet 10 mg PO DAILY Tradjenta 5 mg tablet 5 mg PO DAILY fluconazole 150 mg tablet 150 mg PO .COMPLEX Rx Instructions: 150 mg orally; x 2 gabapentin 300 mg capsule 300 mg PO BID Patient Comments: Take 1 capsule by mouth three times a day. nitrofurantoin monohyd/m-cryst 100 mg capsule 100 mg PO BID ipratropium-albuterol 0.5 mg-3 mg(2.5 mg base)/3 mL solution for nebulization 3 ml inhalation Q4H PRN PRN (Reason: SOB &/OR WHEEZING) Qty: 180 6RF insulin glargine 100 UNIT/ML insulin pen 30 unit SQ QHS benzonatate 200 mg capsule 200 mg PO TID PRN (Reason: cough) Qty: 20 0RF albuterol sulfate [Ventolin HFA] 90 mcg/actuation HFA aerosol inhaler 2 puff inhalation Q4H PRN (Reason: shortness of breath or wheezing) Qty: 18 6RF Stiolto Respimat 2.5-2.5 mcg/actuation mist 2 inh inhalation DAILY Qty: 4 6RF doxycycline hyclate 100 mg tablet 100 mg PO BID Qty: 20 0RF prednisone 10 mg tablet 10 mg PO QDAY Qty: 30 0RF Rx Instructions: take 4 tabs for three days, then 3 tabs for three days, then 2 tabs for three days, then 1 tab for 3 days Primary Care Provider: Eldon Hernandez Referrals: Eldon Hernandez MD [Primary Care Provider] - Activity Restrictions/Additional Instructions: Patient left prior to discharge her labs being completed. Disposition Disposition: Elopement Discharge Date/Time: 05/27/23 10:51
== END 2023-05-27 10:51 | disposition left against medical advice (07) ==
PROVIDERS: Emergency Provider Emergency Medicine; PCP Family Medicine; Visit Provider Emergency Medicine
DX: B34.9 Viral infection, unspecified (principal); E11.9 Type 2 diabetes mellitus without complications; Z79.4 Long term (current) use of insulin; I10 Essential (primary) hypertension; Z11.52 Encounter for screening for COVID-19; M79.10 Myalgia, unspecified site; R19.7 Diarrhea, unspecified; R05.9 Cough, unspecified; Z79.899 Other long term (current) drug therapy; F17.210 Nicotine dependence, cigarettes, uncomplicated
CPT/HCPCS: 87631; 87651; 99282

== ENCOUNTER 2023-06-16 21:38 | Emergency (ER) | payer MEDICAID, SELFPAY ==
[2023-06-16 21:39] VITALS: BP 185/97; PULSE 100; RESP 18; TEMP 36.7; O2SAT 97; BMI 35.3
--- NOTE | 2023-06-16 21:52 | EKG12_ITS ---
Test Reason : CP Blood Pressure : / mmHG Vent. Rate : 105 BPM Atrial Rate : 105 BPM P-R Int : 138 ms QRS Dur : 088 ms QT Int : 350 ms P-R-T Axes : 054 072 051 degrees QTc Int : 462 ms Sinus tachycardia Otherwise normal ECG Confirmed by CARMEL MALDONADO, MARCIA ([id number]), features editor KELSEY CARRERA ([id number]) on 06/17/2023 1:07:52 PM Referred By: Confirmed By:MARCIA BURT MD
--- NOTE | 2023-06-16 21:55 | ED.VIS.CHEST ---
HPI <Dr. Hari Finn MD - Last Filed: 06/21/23 09:15> History of Present Illness Chief Complaint: Chest Pain Detail of Chief Complaint: Chest pain located over the xiphoid Informant: patient Onset/Context/Timing Onset: Hours (20 minutes prior to presentation) Activity at onset: sudden Timing: Continuous Quality: Positive for Sharp Location: - (Xiphoid) Current Severity: Moderate Maximum Severity: Severe Worsened By: Nothing Relieved By: Nothing Associated Symptoms: Negative for Nausea, Vomiting, Diaphoresis, Dyspnea (Patient states she feels like she cannot take a full breath. She does not complain of shortness of breath.), Cough, Fever, Lightheadedness, Acid Reflux or Palpitations Narrative Narrative: Patient is a 42-year-old woman with history of COPD, obstructive sleep apnea, chronic shortness of breath, diabetes, hype pretension, valvular heart disease, anxiety and lupus. She presents with 20 minutes of sharp xiphoid discomfort. This occurred while she was watching TV. There is no alleviating or exacerbating factors. She denies history of hiatal hernia, reflux or peptic ulcer disease. She denies intolerance to greasy or fried foods. Patient denies fever, chills night sweats. She denies headache, visual, ocular auditory symptoms. She denies cough. She denies leg pain, swelling or discoloration. She has no history of PE or DVT. She has no risk factors for PE or DVT. Prior Similar Symptoms: No Recent Illness/Hospitalization: No CVD Risk Factors: Positive for Hypertension, Diabetes, Hypercholesterolemia and Smoking (1 pack a day since age of 14.) PE Risk Factors: Negative for Recent Travel/Surgery, Recent Immobilization, Prior DVT or PE, Cancer or OCP + Smoking + >/=35 TAD Risk Factors: Positive for Hypertension; Negative for Marfan's Syndrome or Family History [facility] <Dr. Hari Finn MD - Last Filed: 06/21/23 09:15> [facility] Medical History Acute respiratory failure with hypoxemia Anxiety Cellulitis of foot, right Chest pain Community acquired pneumonia due to methicillin resistant Staphylococcus aureus (MRSA) Diabetes HTN (hypertension) Leaky heart valve Lupus Physical exam, pre-employment Home Medications insulin glargine 100 unit/mL (3 mL) subcutaneous pen 30 unit SQ QHS DM 04/29/17 [History Last Taken 04/05/22] empagliflozin 10 mg tablet (Jardiance) 10 mg PO DAILY 07/07/22 [History Last Taken Unknown] albuterol sulfate 90 mcg/actuation aerosol inhaler (Ventolin HFA) 2 puff inhalation Q4H PRN shortness of breath or wheezing #18 grams 07/08/22 [Rx Last Taken Unknown] linagliptin 5 mg tablet (Tradjenta) 5 mg PO DAILY 10/15/22 [History Last Taken Unknown] tiotropium 2.5 mcg-olodaterol 2.5 mcg/actuation mist for inhalation (Stiolto Respimat) 2 inh inhalation DAILY #4 grams 12/16/22 [Rx Last Taken Unknown] benzonatate 200 mg capsule 200 mg PO TID PRN cough #20 caps 04/30/23 [Rx Last Taken Unknown] fluconazole 150 mg tablet 150 mg PO .COMPLEX 05/11/23 [History Last Taken Unknown] gabapentin 300 mg capsule 300 mg PO BID 05/11/23 [History Last Taken Unknown] ipratropium 0.5 mg-albuterol 3 mg (2.5 mg base)/3 mL nebulization soln 3 ml inhalation Q4H PRN PRN SOB &/OR WHEEZING #180 mL 05/11/23 [Rx Last Taken Unknown] nitrofurantoin monohydrate/macrocrystals 100 mg capsule 100 mg PO BID 05/11/23 [History Last Taken Unknown] doxycycline hyclate 100 mg tablet 100 mg PO BID #20 tabs 05/16/23 [Rx Last Taken Unknown] prednisone 10 mg tablet 10 mg PO QDAY #30 tabs 05/16/23 [Rx Last Taken Unknown] Allergy/AdvReac Type Severity Reaction Status Date / Time cetirizine HCl [From Zyrtec] Allergy Hives Verified 06/16/23 21:41 prochlorperazine edisylate Allergy Hives Verified 06/16/23 21:41 [From Compazine] prochlorperazine maleate Allergy Hives Verified 06/16/23 21:41 [From Compazine] acetaminophen [From Percocet] AdvReac Nausea/Vom/ Verified 06/16/23 21:41 Diarrhea oxycodone [From Percocet] AdvReac Nausea/Vom/ Verified 06/16/23 21:41 Diarrhea Family History Mother Diabetes Hypertension Father Diabetes Surgical History S/P laparoscopic cholecystectomy Social History Smoking Status: Current every day smoker tobacco type: cigarettes alcohol intake: never ROS <Dr. Hari Finn MD - Last Filed: 06/21/23 09:15> ROS ED Constitutional Constitutional ED: Denies chills, fever(s), subjective, sweats or weight loss Eyes Eyes: Reports none ENT ENT ED: Denies ear pain, rhinorrhea or sore throat Cardiovascular Cardiovascular: Reports as per HPI; Denies orthopnea or paroxysmal nocturnal dyspnea Respiratory/Chest Respiratory/Chest: Denies cough, dyspnea, dyspnea on exertion, orthopnea or paroxysmal nocturnal dyspnea Gastrointestinal Gastrointestinal: Denies abdominal pain, constipation, diarrhea, melena, nausea or vomiting Genitourinary Genitourinary ED: Denies dysuria or hematuria Musculoskeletal Musculoskeletal: Denies arthralgias, back pain, myalgias or neck pain Integumentary Denies rash Neurologic Neurologic: Denies headache(s) or paresthesias Hematologic/Lymphatic Hematologic/Lymphatic: Denies easy bleeding or easy bruising EXAM <Dr. Hari Finn MD - Last Filed: 06/21/23 09:15> Physical Exam Const Vital Signs: 06/16/23 21:39 06/16/23 22:36 06/16/23 22:36 Temperature 98.0 F Temperature Source Temporal Pulse Rate 100 89 Respiratory Rate 18 32 H Respiratory Effort Blood Pressure 185/97 H 143/86 H Blood Pressure Mean 126 105 Pulse Ox 97 Oxygen Delivery Method Room Air Room Air Room Air 06/16/23 22:36 06/16/23 23:28 Temperature Temperature Source Pulse Rate 90 Respiratory Rate 32 H Respiratory Effort Normal Blood Pressure 151/87 H Blood Pressure Mean 108 Pulse Ox 97 Oxygen Delivery Method Room Air Positive well nourished, well developed and obese Constitutional Narrative: Blood pressure is elevated 185/97. Patient does have a history of hypertension. General Appearance ED: well developed and NAD; Negative for pallor Nutritional Appearance: obese HEENT Reports TM's clear and moist mucous membranes HEENT Narrative: Nares patent. No discharge. Posterior pharynx is normal. normocephalic and atraumatic Tympanic Membrane ED: Yes TM's clear Eyes PERRL and EOMs intact bilaterally General Eye ED: Negative for pale conjunctiva or scleral icterus Neck no lymphadenopathy, supple and no JVD Chest Wall inspection of chest normal and palpation of chest normal Resp normal respiratory effort and clear to auscultation bilaterally Cardio regular rate, regular rhythm, S1 normal heart sound, S2 normal heart sound and no murmurs GI normal to inspection, nondistended, normoactive bowel sounds, soft to palpation, non-tender, non-distended and no masses; Negative for hepatosplenomegaly Back/Spine no CVA tenderness and no thoracic nor lumbar tenderness Extremity normal to inspection Neuro oriented x3, CN's II-XII intact bilaterally and no sensory deficits noted Sensorium / Orientation: awake and alert Motor Exam: strength 5/5 throughout Psych Mood & Affect: depressed Skin no rashes or lesions noted and no wounds General Skin Exam: Negative for jaundice or pallor <Dr. Eliseo Hanson MD - Last Filed: 06/17/23 00:52> Physical Exam Const Vital Signs: 06/16/23 21:39 06/16/23 22:36 06/16/23 22:36 Temperature 98.0 F Temperature Source Temporal Pulse Rate 100 89 Respiratory Rate 18 32 H Respiratory Effort Blood Pressure 185/97 H 143/86 H Blood Pressure Mean 126 105 Pulse Ox 97 Oxygen Delivery Method Room Air Room Air Room Air 06/16/23 22:36 06/16/23 23:28 Temperature Temperature Source Pulse Rate 90 Respiratory Rate 32 H Respiratory Effort Normal Blood Pressure 151/87 H Blood Pressure Mean 108 Pulse Ox 97 Oxygen Delivery Method Room Air <Dr. Hari Finn MD - Last Filed: 06/21/23 09:15> Heart Score History: Slightly/Non-Suspicious ECG: Normal Age: </= 45 years Risk Factors: >/= 3 Risk Factors or History of CAD Score: 2 <Dr. Eliseo Hanson MD - Last Filed: 06/17/23 00:52> Heart Score Troponin: </= Normal Limit Score: 2 MDM <Dr. Hari Finn MD - Last Filed: 06/21/23 09:15> MDM MDM Narrative Medical decision making narrative: Patient with atypical chest pain. This may represent cardiac. May be atypical to because she does have diabetes which is poorly controlled. This may also represent pulmonary or GI etiology. EKG, chest x-ray and appropriate labs were ordered. Prior records were reviewed. History & Record Review Additional record(s) reviewed:: Prior inpatient record (Admission for respiratory failure March 2022.), Prior outpatient record (Reviewed office records and urgent care records for pulmonary complaints.), Prior ED visit and Prior labs Lab Data Attestation: I reviewed the patient's lab results. Lab results narrative: Basic metabolic panel reveals a glucose of 265 with normal CO2 anion gap. BUN and creatinine are normal. First troponin is normal at 6. Labs: Laboratory Results - last 24 hr 06/16/23 06/17/23 21:58 00:02 WBC 10.2 RBC 5.20 Hgb 15.4 H Hct 45.5 MCV 87.5 MCH 29.6 MCHC 33.8 RDW Std Deviation 44.4 H RDW Coeff of Sriram 13.9 Plt Count 243 MPV 9.7 Immature Gran % (Auto) 0.300 Neut % (Auto) 67.3 Lymph % (Auto) 24.0 Spink % (Auto) 5.9 Eos % (Auto) 1.7 Baso % (Auto) 0.8 Absolute Neuts (auto) 6.8 Absolute Lymphs (auto) 2.44 Nucleated RBC % 0 Sodium 140 Potassium 4.0 Chloride 111 H Carbon Dioxide 25.0 Anion Gap 4 L BUN 18 Creatinine 0.88 Estim Creat Clear Calc 95.62 Est GFR (MDRD) Af Amer 90 Est GFR (MDRD) Non-Af 74 BUN/Creatinine Ratio 20.4 H Glucose 265 H Calcium 9.3 Troponin I High Sens 6 5 Radiography Chest X-Ray - ED: 1 View, Read by ED Physician (Single view portable x-ray interpreted by az at [id number] independently.), Normal, Heart, Lungs, Mediastinum, Bony Structures and No Acute Disease Diagnostic Testing: Clinical Impression(s) from Imaging Studies Chest X-Ray 06/16/23 22:08 IMPRESSION: Minimal scarring versus atelectasis at the right lung base, otherwise no acute cardiopulmonary disease. Electronically Signed: Sis Telles MD at 22:30 EST , EKG Initial EKG: Attestation: I personally reviewed and interpreted this EKG as follows: Interpretation: Sinus Tachycardia (Rate is 105. The EKG other than sinus tachycardia is normal. MS interval is 138 ms. QRS duration 88 ms. QT duration 3 and 50 ms. [place] is normal.) <Dr. Eliseo Hanson MD - Last Filed: 06/17/23 00:52> [facility] Lab Data Labs: Laboratory Results - last 24 hr 06/16/23 06/17/23 21:58 00:02 WBC 10.2 RBC 5.20 Hgb 15.4 H Hct 45.5 MCV 87.5 MCH 29.6 MCHC 33.8 RDW Std Deviation 44.4 H RDW Coeff of Sriram 13.9 Plt Count 243 MPV 9.7 Immature Gran % (Auto) 0.300 Neut % (Auto) 67.3 Lymph % (Auto) 24.0 Spink % (Auto) 5.9 Eos % (Auto) 1.7 Baso % (Auto) 0.8 Absolute Neuts (auto) 6.8 Absolute Lymphs (auto) 2.44 Nucleated RBC % 0 Sodium 140 Potassium 4.0 Chloride 111 H Carbon Dioxide 25.0 Anion Gap 4 L BUN 18 Creatinine 0.88 Estim Creat Clear Calc 95.62 Est GFR (MDRD) Af Amer 90 Est GFR (MDRD) Non-Af 74 BUN/Creatinine Ratio 20.4 H Glucose 265 H Calcium 9.3 Troponin I High Sens 6 5 Radiography Diagnostic Testing: Clinical Impression(s) from Imaging Studies Chest X-Ray 06/16/23 22:08 IMPRESSION: Minimal scarring versus atelectasis at the right lung base, otherwise no acute cardiopulmonary disease. Electronically Signed: Sis Telles MD at 22:30 EST , Treatment and Re-Evaluation Comments:: Patient checked out to me for delta troponin and appropriate disposition. Her second troponin came back lower than the initial measurement, 5. Her heart score is 2, very low risk. Stable for discharge home with plan as noted by the initial evaluating ED physician. Patient had no other questions and is clinically stable at discharge. Discharge Plan Triage Chief Complaint: Chest Pain ED Provider: Hari Finn Dx/Rx/DC Orders Clinical Impression: Chest pain, Anxiety, SOB (shortness of breath), COPD (chronic obstructive pulmonary disease), HTN (hypertension), Diabetes Instructions: ED Chest Pain, Uncertain Cause Prescriptions: No Action Jardiance 10 mg tablet 10 mg PO DAILY Tradjenta 5 mg tablet 5 mg PO DAILY fluconazole 150 mg tablet 150 mg PO .COMPLEX Rx Instructions: 150 mg orally; x 2 gabapentin 300 mg capsule 300 mg PO BID Patient Comments: Take 1 capsule by mouth three times a day. nitrofurantoin monohyd/m-cryst 100 mg capsule 100 mg PO BID ipratropium-albuterol 0.5 mg-3 mg(2.5 mg base)/3 mL solution for nebulization 3 ml inhalation Q4H PRN PRN (Reason: SOB &/OR WHEEZING) Qty: 180 6RF insulin glargine 100 UNIT/ML insulin pen 30 unit SQ QHS benzonatate 200 mg capsule 200 mg PO TID PRN (Reason: cough) Qty: 20 0RF albuterol sulfate [Ventolin HFA] 90 mcg/actuation HFA aerosol inhaler 2 puff inhalation Q4H PRN (Reason: shortness of breath or wheezing) Qty: 18 6RF Stiolto Respimat 2.5-2.5 mcg/actuation mist 2 inh inhalation DAILY Qty: 4 6RF doxycycline hyclate 100 mg tablet 100 mg PO BID Qty: 20 0RF prednisone 10 mg tablet 10 mg PO QDAY Qty: 30 0RF Rx Instructions: take 4 tabs for three days, then 3 tabs for three days, then 2 tabs for three days, then 1 tab for 3 days Primary Care Provider: Eldon Hernandez Referrals: Eldon Hernandez MD [Primary Care Provider] - 5-7 Days Disposition Disposition: Home, Self Care Discharge Date/Time: 06/17/23 01:01
[2023-06-16] MEDS: Aspirin 81 MG TAB.CHEW 324 MG PO (22:05)
[2023-06-16 22:06] LABS: Absolute Lymphocyte Count 2.44 X10^3/uL (0.83-4.51); Absolute Neutrophil Count 6.8 X10^3/uL (2.0-7.7); Basophil# 0.08 X10^3/uL; Basophil% 0.8 % (0-1); Eosinophil# 0.17 X10^3/uL; Eosinophils% 1.7 % (0-5); Hematocrit 45.5 % (37-47); Hemoglobin 15.4 g/dL (12.0-15.0); Lymphocyte # 2.44 X10^3/ul (0.83-4.51); Mean Corp Hgb Conc 33.8 g/dL (32-36); Mean Corpuscular Hgb 29.6 pg (27.0-32.0); Mean Corpuscular Volume 87.5 fL (81-99); Mean Platelet Vol. 9.7 fl (6.2-12.0); Monocyte% 5.9 % (0-10); NRBC Flagged by Analyzer 0 % (0-5); Neutrophil # 6.84 X10^3/uL (2.7-7.7); Neutrophil % 67.3 % (47-70); Platelet Count 243 K/mm3 (150-450); RBC Distribution Width CV 13.9 % (11.6-14.6); RBC Distribution Width SD 44.4 fl (35.1-43.9); White Blood Count 10.2 K/mm3 (4.4-11.0)
--- NOTE | 2023-06-16 22:08 | RAD_ITS ---
STUDY: X-RAY CHEST REASON FOR EXAM: Female, 42 years old. chest pain TECHNIQUE: Single AP portable view of the chest. COMPARISON: 04/29/2022. FINDINGS: Elevation of the right hemidiaphragm. Minimal scarring versus atelectasis at the right lung base with near complete resolution of previously seen right lower lobe density. Remainder of the lung [place] are clear. There is no demonstrated pleural abnormality. Normal size heart. Normal mediastinum and [place]. Normal visualized pulmonary arteries. Normal visualized aortic arch and descending thoracic aorta. Normal visualized thoracic spine. Normal visualized ribs, clavicles, and shoulders. There is no demonstrated abnormality of the visualized soft tissue structures of the upper abdomen. RAD/Chest 1 View (Portable) IMPRESSION: Minimal scarring versus atelectasis at the right lung base, otherwise no acute cardiopulmonary disease. Electronically Signed: Sis Telles MD at 22:30 EST ,
--- OUTSIDE RECORDS SUMMARY | 2023-06-16 22:15 | XMS RPT_ITS | CCD ---
Author Name Unknown Address [address] [facility] [address] [place] [address] Organization [facility] Care Team Providers Care Groundskeeper Supervisor Name Role Phone Sonia Ortega PA-C Primary Care Provider [phone] ORTEGA, Sonia LOGANKEENAN Primary Care Unavailable ORTEGA, M KEENAN Referring Unavailable ORTEGA, M KEENAN Attending Unavailable ORTEGA, M KEENAN Primary Care Unavailable ORTEGA, M KEENAN Primary Care Unavailable KARIMINNA Attending Unavailable ORTEGA, M KEENAN Primary Care Unavailable ORTEGA, M KEENAN Referring Unavailable ORTEGA, M KEENAN Attending Unavailable ORTEGA, [...] M KEENAN Referring Unavailable ORTEGA, M KEENAN Attending Unavailable ORTEGA, M KEENAN Primary Care Unavailable Ortega MIHAELA, Sonia Mantilla Primary Care Provider [phone] Allergies Allergy Classification Reported Allergen(s) Allergy Type Date of Onset Reaction(s) Facility (20 sources) Acetaminophen / oxyCODONE; Translations: [OXYCODONE-ACETAM INOPHEN] Drug Allergy 7 Vomiting [facility] (20 sources) Cat; Translations: [CATS] Propensity to adverse reactions 0 Hives, Itching [facility] (20 sources) Cetirizine; Translations: [CETIRIZINE HCL] Drug Allergy 4 Hives [facility] Work Phone: (20 sources) dilTIAZem; Translations: [DILTIAZEM] Drug Allergy 4 GI Upset, Vomiting [facility] (20 sources) Dust; Translations: [DUST] Propensity to adverse reactions 0 [facility] (20 sources) Grass pollen; Translations: [GRASS POLLEN] Propensity to adverse reactions to drug 0 Itching [facility] (19 sources) Acetaminophen; Translations: [ACETAMINOPHEN] Drug Allergy 2 GI Upset [facility] Medications Current Medications Medication Drug Class(es) [...] 06-21-2021 Episodic Other aftercare (1 source) 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; Translations: [Type 2 [...] 98.01 [degF] NA Ortega PA-C Work Phone: [facility] 06-28-2022 14:50-0500 Body weight 89.36 kg NA Ortega PA-C Work Phone: [facility] 06-28-2022 14:50-0500 Diastolic blood pressure 76 mm[Hg] NA Ortega PA-C Work Phone: [facility] 06-28-2022 14:50-0500 Heart rate 104 /min NA Ortega PA-C Work Phone: [facility] 06-28-2022 14:50-0500 Respiratory rate 16 /min NA Ortega PA-C Work Phone: [facility] 06-28-2022 14:50-0500 SaO2% (BldA) [Mass fraction] 96 % NA Ortega PA-C Work Phone: [facility] 06-28-2022 14:50-0500 Systolic blood pressure 128 mm[Hg] NA Ortega PA-C Work Phone: [facility] 04-23-2022 10:45-0500 Body temperature 98.4 [degF] NA Ortega PA-C Work Phone: [facility] 04-23-2022 10:45-0500 Body weight 90.27 kg NA Ortega PA-C Work Phone: [facility] 04-23-2022 10:45-0500 Diastolic blood pressure 80 mm[Hg] NA Ortega PA-C Work Phone: [facility] 04-23-2022 10:45-0500 Heart rate 110 /min NA Ortega PA-C Work Phone: [facility] 04-23-2022 10:45-0500 Respiratory rate 20 /min NA Ortega PA-C Work Phone: [facility] 04-23-2022 10:45-0500 SaO2% (BldA) [Mass fraction] 95 % NA Ortega PA-C Work Phone: [facility] 04-23-2022 10:45-0500 Systolic blood pressure 116 mm[Hg] NA Ortega PA-C Work Phone: [facility] 04-15-2022 12:33-0500 Body temperature 97.59 [degF] Ines Shelby DOUGHNUT FRYER.TOOL CRIB MANAGER Work Phone: [facility] 04-15-2022 12:33-0500 Body weight 93.98 kg Ines Shelby DOUGHNUT FRYER.TOOL CRIB MANAGER Work Phone: [facility] 04-15-2022 12:33-0500 Diastolic blood pressure 84 mm[Hg] Ines Shelby DOUGHNUT FRYER.TOOL CRIB MANAGER Work Phone: [facility] 04-15-2022 12:33-0500 Heart rate 99 /min Ines Shelby DOUGHNUT FRYER.TOOL CRIB MANAGER Work Phone: [facility] 04-15-2022 12:33-0500 Respiratory rate 20 /min Ines Shelby DOUGHNUT FRYER.TOOL CRIB MANAGER Work Phone: [facility] 04-15-2022 12:33-0500 SaO2% (BldA) [Mass fraction] 95 % Ines Shelby DOUGHNUT FRYER.TOOL CRIB MANAGER Work Phone: [facility] 04-15-2022 12:33-0500 Systolic blood pressure 142 mm[Hg] Ines Shelby DOUGHNUT FRYER.TOOL CRIB MANAGER Work Phone: [facility] 01-11-2022 13:50-0400 Body weight 95.17 kg Madhuri Zurawick DOUGHNUT FRYER.TOOL CRIB MANAGER Work Phone: [facility] 01-11-2022 13:50-0400 Diastolic blood pressure 76 mm[Hg] Madhuri Zurawick DOUGHNUT FRYER.TOOL CRIB MANAGER Work Phone: [facility] 01-11-2022 13:50-0400 Heart rate 83 /min Madhuri Zurawick DOUGHNUT FRYER.TOOL CRIB MANAGER Work Phone: [facility] 01-11-2022 13:50-0400 Respiratory rate 16 /min Madhuri Zurawick DOUGHNUT FRYER.TOOL CRIB MANAGER Work Phone: [facility] 01-11-2022 13:50-0400 SaO2% (BldA) [Mass fraction] 96 % Madhuri Zurawick DOUGHNUT FRYER.TOOL CRIB MANAGER Work Phone: [facility] 01-11-2022 13:50-0400 Systolic blood pressure 120 mm[Hg] Madhuri Zurawick DOUGHNUT FRYER.TOOL CRIB MANAGER Work Phone: [facility] 10-15-2021 14:52-0400 Body temperature 98.8 [degF] Tracy Meyer DOUGHNUT FRYER.TOOL CRIB MANAGER Work Phone: [facility] 10-15-2021 14:52-0400 Body weight 93.89 kg Tracy Meyer DOUGHNUT FRYER.TOOL CRIB MANAGER Work Phone: [facility] 10-15-2021 14:52-0400 Diastolic blood pressure 96 mm[Hg] Tracy Meyer DOUGHNUT FRYER.TOOL CRIB MANAGER Work Phone: [facility] 10-15-2021 14:52-0400 Heart rate 122 /min Tracy Meyer DOUGHNUT FRYER.TOOL CRIB MANAGER Work Phone: [facility] 10-15-2021 14:52-0400 Respiratory rate 20 /min Tracy Meyer DOUGHNUT FRYER.TOOL CRIB MANAGER Work Phone: [facility] 10-15-2021 14:52-0400 SaO2% (BldA) [Mass fraction] 96 % Tracy Meyer DOUGHNUT FRYER.TOOL CRIB MANAGER Work Phone: [facility] 10-15-2021 14:52-0400 Systolic blood pressure 130 mm[Hg] Tracy Meyer DOUGHNUT FRYER.TOOL CRIB MANAGER Work Phone: [facility] 10-01-2021 10:16-0400 Body weight 93.89 kg TAWANA Ortega PA-C Work Phone: [facility] 10-01-2021 10:16-0400 Diastolic blood pressure 66 mm[Hg] NA Ortega PA-C Work Phone: [facility] 10-01-2021 10:16-0400 Heart rate 85 /min NA Ortega PA-C Work Phone: [facility] 10-01-2021 10:16-0400 Respiratory rate 16 /min NA Ortega PA-C Work Phone: [facility] 10-01-2021 10:16-0400 SaO2% (BldA) [Mass fraction] 97 % NA Ortega PA-C Work Phone: [facility] 10-01-2021 10:16-0400 Systolic blood pressure 118 mm[Hg] NA Ortega PA-C Work Phone: [facility] 07-13-2021 10:47-0400 Body weight 92.08 kg Tracy Aguillon APRN.CNM Work Phone: [facility] 07-13-2021 10:47-0400 Diastolic blood pressure 76 mm[Hg] Tracy Aguillon APRN.CNM Work Phone: [facility] 07-13-2021 10:47-0400 Systolic blood pressure 118 mm[Hg] Tracy Aguillon APRN.CNM Work Phone: [facility] Encounters Encounter Date Encounter Type Care Provider Facility Start: 06-11-2023 Rodolfo Still on PA-C Work Phone: [facility] Procedures Date Procedure Procedure Detail Performing Clinician Start: 10-25-2022 End: 10-25-2022 Mammography Bulk Order Provider Start: 10-01-2021 Adult depression scr eening assessment NA Ortega PA-C Work Phone: Start: 05-01-2019 Adult depression scr eening assessment Tracy Aguillon APRN.CNM Work Phone: Start: 05-01-2019 Electrocardiogram Start: 04-30-2019 Electrocardiogram Plan of Treatment Date Care Activity Detail Author Start: 05-10-2024 Annual PCP Team Intake Rn kalie Disease Visit Annual PCP Team Chronic Disease Visit [facility] Start: 02-25-2024 Annual PCP Team Intake Rn kalie Disease Visit Annual PCP Team Chronic Disease Visit [facility] Start: 02-25-2024 Pneumococcal vaccination [facility] Immunizations Immunization Date Immunization Notes Care Provider Bernie lancaster 03-12-2016 influenza, seasonal, injectable NA Ortega PA-C Work Phone: [facility] 03-12-2016 influenza virus vacc ine, unspecified formulation Screen Wstr [facility] 03-05-2015 influenza, injectabl e, quadrivalent, contains preservative Tracy Aguillon DOUGHNUT FRYER.CNM Work Phone: [facility] 03-05-2015 influenza, seasonal, injectable NA Ortega PA-C Work Phone: [facility] 04-03-2014 influenza, seasonal, injectable Tracy Aguillon DOUGHNUT FRYER.CNM Work Phone: [facility] 08-13-2013 tetanus toxoid, redu patty diphtheria toxoid, and acellular pertussis vaccine, adsorbed Tracy Aguillon DOUGHNUT FRYER.CNM Work Phone: [facility] Payers Date Payer Category Payer Medicaid [id number] 2012 Medicaid [facility] MED[facility] [id number] 2012-Present [phone] [address] [place] [address] Medicaid [id number] 2012 Medicaid [id number] 2012 Medicaid [id number] Social History Date Type Detail Facility Start: 04-30-2019 End: 01-07-2022 Tobacco smoking status NHIS Smokes tobacco daily [facility] History of tobacco use Cigarette Smoker C [facility] Work Phone: Start: 07-13-2021 End: 02-24-2023 Alcohol intake Current drinker of alcohol (finding) [facility] Start: 06-12-2015 History SDOH Alcohol Comment occ [facility] Start: 1980 Sex Assigned At Not on file [facility] Start: 06-29-2021 End: 01-11-2022 Exposure to SARS-CoV-2 (event) Not sure [facility] Start: 09-21-2021 End: 10-01-2021 Exposure to SARS-CoV-2 (event) Yes [facility] Start: 04-30-2019 End: 05-10-2023 Cigarettes smoked current (pack per day) - Reported 0.5 [facility] Start: 04-30-2019 End: 01-07-2022 Tobacco use and exposure Smokeless tobacco non-user [facility] Start: 06-28-2022 History SDOH Alcohol Frequency 1 [facility] Start: 06-28-2022 History SDOH Alcohol Std Drinks 0 [facility] Start: 06-28-2022 History SDOH Social Connections Phone 2 [facility] Start: 06-28-2022 History SDOH Social Connections Living 5 [facility] Start: 06-28-2022 History SDOH Physical Activity MPS 3 [facility] Start: 06-28-2022 End: 05-10-2023 Social connection and isolation panel [facility] Do you belong to any clubs or organizations such as restoration groups, unions, fraternal or athletic groups, or school groups? No [facility] Are you now , , , , never or living with a partner? [facility] How often to you hav e a drink containing alcohol? Never [facility] How many standard dr inks containing alcohol do you have on a typical day? Patient does not drink [facility] Do you feel stress - tense, restless, nervous, or anxious, or unable to sleep at night because your mind is troubled all the time - these days [OSQ] Only a little [facility] (I/We) worried wheth er (my/our) food would run out before (I/we) got money to buy more. Never true [facility] Start: 1980 Sex Assigned At Female [facility] Start: 11-15-2022 Gender identity Identifies as female gender (finding) [facility] Start: 11-15-2022 Sexual orientation Heterosexual (finding) [facility] Medical Equipment Procedure Code Equipment Code Equipment Origin al Text Equipment Identifier Dates Mirena Iud 69 [id number] Start: 03-13-2013 Start: 01-30-2018 End: 06-11-2023 Clinical Notes 05-13-2014 to 06-13-2023 Telephone Encounter - Alejandro Bates LPN - 06/13/2023 9:33 AM ESTTelephone Encounter - Linda Butler Ma - 11/01/2022 9:10 AM EDTAddendum Note - Sonia Ortega PA-C - 11/01/2022 7:01 AM EDT Note Date & Type Note Facility 06-13-2023 Miscellaneous Notes Patient has been identified by name and date of : Yes Patient phones for refill(s): Requested Prescriptions Pending Prescriptions Disp Refills Insulin Vanderwagen, Disposable, (SURE-FINE PEN NEEDLES) 31 gauge x 3/16 100 Each 0 Sig: Daily injections Date of last office visit in primary care: 02/24/2023 Date of next office visit in primary care: Visit date not found Please advise. Thank you. Alejandro Bates LPN. documented in this encounter [facility] 05-10-2023 Note HNO ID: [id number] Author: Sonia ORTEGA PA-C Service: ? Author Type: Physician Grooving Machine Operator Type: Progress Notes Filed: 05/10/2023 10:03 Note Text: [facility] [place] [facility] Video Call was used for evaluation of this patient. Location of patient: [place] Patient was offered a virtual/telemedicine appointment in [...] visit. Either the patient or their legal representative phlebotomy services has been informed of the risks and benefits of -- and alternatives to -- treatment through a remote evaluation and consents to proceed with the evaluation remotely. 9:15 AM waiting, unable to sign in to [facility] video. 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 30 tablet 5 Insulin Vanderwagen, Disposable, (SURE-FINE PEN NEEDLES) 31 gauge x [...] appear (more content not included)... [facility] 02-24-2023 Note HNO ID: [id number] Author: Karen Pacheco RT(R) Service: ? Author Type: Marketing Trainee Type: Progress Notes Filed: 02/24/2023 12:19 PM [...] February 24, 2023 12:18 PM [facility] 02-24-2023 Note HNO ID: [id number] Author: Sonia Ortega PA-C Service: ? Author Type: Physician Grooving Machine Operator Type: Progress Notes Filed: 02/25/2023 5:45 PM [...] daily as needed. 2 Each 2 Insulin Vanderwagen, Disposable, (SURE-FINE PEN NEEDLES) 31 gauge x [...] (<130/80 (more content not included)... [facility] 11-16-2022 Note HNO ID: [id number] Author: Inna Michel MD Service: ? Author [...] visit. Either the patient or their legal representative phlebotomy services has been informed of the risks and [...] Each three times daily as needed. Insulin Vanderwagen, Disposable, (SURE-FINE PEN NEEDLES) 31 gauge x [...] TO DERMATOLOGY Inna Michel MD [facility] 11-01-2022 Miscellaneous Notes Vivino message sent to pt notifying her of [...] Ron Ortega PA-C documented in this encounter [facility] 10-27-2022 Miscellaneous Notes October 28, 2022 PID: [id number] Ezio Nielson [address] [place] [address] Dear Ms. Nielson, We are pleased to [...] report will be kept on file at [facility] as part of your permanent medical record and are available for your continuing care. Thank you for allowing us to help in meeting your health care needs. Sincerely, Dr. Pena Interpreting Radiologist [facility] (Normal over 40) documented in this encounter [facility] 10-25-2022 Note HNO ID: [id number] Author: RT Miranda(Franco) Service: ? Author Type: Marketing Trainee Type: Progress Notes Filed: 10/25/2022 1:10 PM [...] October 25, 2022 1:09 PM [facility] 10-25-2022 History of Present illness [...] 2022 1:09 PM documented in this encounter [facility] 10-11-2022 Note HNO ID: [id number] Author: Sonia Ortega PA-C Service: ? Author Type: Physician Grooving Machine Operator Type: Progress Notes Filed: 10/11/2022 7:33 PM [...] empaglifl (more content not included)... [facility] 09-23-2022 Miscellaneous Notes Spoke to [...] Called to check on PA status through [employer] which states denied. [employer] advised will not cover unless 120 days or more of tried formulary options Truliicty, amaryl, tradjenta are tried Mag Alejandro Ma Prior Authorization has been completed online at [employer] for STEPHANIEYOVANY, will await response. [id number] Please keep encounter open until final decision has been received and documented from insurance company. Mag Alejandro MA documented in this encounter [facility] 09-22-2022 Miscellaneous Notes Patient phones requesting [...] Alejandro Bates LPN documented in this encounter [facility] 07-21-2022 Miscellaneous Notes Patient has been [...] Margy Lancaster RN documented in this encounter [facility] 06-29-2022 Note HNO ID: [id number] Author: RT Melody(R) Service: Radiology Author Type: [...] June 29, 2022 3:40 PM [facility] 06-29-2022 Miscellaneous Notes Spoke with pt and information listed below given. Pt verbalizes understanding. Pt will come in to get done. Hermelinda Thurston LPN Attempted to contact patient, no answer and VM full. [employer] message sent. Monique Bright MA Please have her come in to repeat CXR- orders placed. Thanks, Ron Ortega PA-C documented in this encounter [facility] 06-29-2022 Miscellaneous Notes 9:30a.m BS reading 204. Last meal around 1:30a.m Virginia Garcia documented in this encounter [facility] 06-28-2022 Note HNO ID: [id number] Author: Sonia Ortega PA-C Service: ? Author Type: Physician Grooving Machine Operator Type: Progress Notes Filed: 06/28/2022 6:57 PM [...] significant difficulty with testing 04/29/2022 chest x-ray [facility]: Persistent infiltration right lower lobe with [...] Obes (more content not included)... [facility] 06-28-2022 Instructions Sonia Ortega PA-C - 06/28/2022 3:26 PM EST Check blood sugars four times a day before meals and at bedtime x 1 week and send me results. Drink 64oz no caffeinated, non-alcoholic fluids daily. Taper prednisone as directed: call or mychart progress in 5 days documented in this encounter [facility] 06-28-2022 History of Present illness Narrative [...] significant difficulty with testing 04/29/2022 chest x-ray [facility]: Persistent infiltration right lower lobe with [...] mouth twice daily. 180 tablet 0 Insulin Vanderwagen, Disposable, (SURE-FINE PEN NEEDLES) 31 gauge x /16 Daily injections 100 Each 0 Lancets lancets [...] due to methicillin resistant Staphylococcus aureus (MRSA) ([facility]) - ICD9: 482.42, ICD10: J15.212 (primary diagnosis) Need a repeat chest x-ray due to her current issues. - XR CHEST 2V FRONTAL/LAT 2. Lupus (HCC) - ICD9: 710.0, ICD10: M32.9 Has been [...] Sonia Ortega PA-C documented in this encounter [facility] 06-22-2022 Miscellaneous Notes Due for follow-up. [...] Alejandro Bates LPN documented in this encounter [facility] 05-26-2022 Note Patient Outreach (IN [facility]) -------- EZIO NIELSON ([id number]) 1980 F Date Time Provider Department 05/26/22 [...] for screening mammogram for breast cancer [Z12.31] Order(s):[facility] SCREENING [[id number]] Order #: [id number] FUTURE Prescriptions as of 05/31/2022 - amoxicillin [...] then twice weekly for maintenance. - Insulin Vanderwagen, Disposable, (SURE-FINE PEN NEEDLES) 31 gauge x [...] Mixed hyperlipidemia [E78.2] 10/01/2021 Encounter Status:Closed by SHANKAR, PRODUSER on 05/31/22 [facility] 05-04-2022 Miscellaneous Notes Notified of result via [employer] Valentin Ortega PA-C documented in this encounter [facility] 04-23-2022 History of Present illness Narrative 41 year old female with c/o hospital discharge follow up Hospital admission discharge follow-up: Date of admission 04/07/2022 Date of discharge 04/12/2022 Discharge diagnoses: 1. Community-acquired pneumonia due to methicillin-resistant staph aureus 2. Acute respiratory failure with hypoxemia 04/02/2022 presented to [facility] emergency department with complaint of 3 [...] syrup, 140 mL 04/07/2022 Returned to the [facility] emergency department with complaint of upper respiratory infection over 10 days with known positive influenza A, using ocyv-ewo-eszvnic medications but progressively short of breath coughing up yellow-green sputum over the last few days. States she quit smoking 5 days prior. Increased cough, shortness of breath, mild dyspnea on exertion. 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 2 Each 2 Insulin Vanderwagen, Disposable, (SURE-FINE PEN NEEDLES) 31 gauge x [...] context and comparison. documented in this encounter [facility] 04-22-2022 Miscellaneous Notes Both listed contacts inactive, will send letter to listed address. Heather Nunn MA Attempted to contact with voice recording stating that customer is not available to try again later. Becky Douglass LPN Please notify that fungal culture became positive, continue treatment, f/u if s/s persist documented in this encounter [facility] 04-20-2022 Miscellaneous Notes 3rd attempt to reach pt without success. Still unable to reach patient.Evelyn Robles LPN Unable to reach patient. Mailbox full/Mailbox not set up/ Number incorrect. Please try again later. Ezio Quevedo No fungal growth after 3 days. Will call again if culture changes. documented in this encounter [facility] 04-15-2022 History of Present illness Narrative Images from the original note were not included. Subjective The history is provided by the patient. No high school foreign language teacher was used. HPI Ezio Nielson is a [...] have confirmed and edited as necessary, the [facility] Review of Systems Constitutional: Negative for chills [...] Ines Ryan APRN.LILA documented in this encounter [facility] 01-11-2022 History of Present illness Narrative [...] 30 Units subcutaneously daily at bedtime. Insulin Vanderwagen, Disposable, (SURE-FINE PEN NEEDLES) 31 gauge x [...] loss - Discussed diabetic education issues of intermodal customer service diabetic complications, hypoglycemic symptoms, hyperglycemic symptoms, diet, medications- side effects and need for compliance, importance of exercise, use and side effects of insulin, importance of appointments with Needle Punch Machine Operator, and importance of annual examinations with Opthalmology [...] Patient agreeable to treatment plan. Madhuri Gibbs APRN.CNP [address] [place] [address] documented in this encounter [facility] 10-15-2021 History of Present illness Narrative This note was created using [employer]. Subjective Ezio Nielson is a 41 year old female. 41 year old female with PMH of HTN, DM, Fibromyalgia, and Lupus presents with complaints of abscess to scalp. Acute onset 4 days Locates pain left portion of head. States pain is 10/10. unable to sleep at night Denies trauma or injury Denies fever/chills, rash, SOB, or CP Utilized tylenol 1000mg FANCY STITCHER with no relief Pt states I get these all the time. My sugars have been running high The history is provided by the patient. No high school foreign language teacher was used. Abscess This is a new [...] 30 Units subcutaneously daily at bedtime. Insulin Vanderwagen, Disposable, (SURE-FINE PEN NEEDLES) 31 gauge x [...] - Discussed expected course of illness Sharda Sanchez TEACHING PROVIDER (Physician/PA/DOUGHNUT FRYER) NOTE OF PERSONAL INVOLVEMENT IN CARE: I have personally seen and examined the patient and performed the medical decision-making components. I have reviewed the Advanced Practice Registered Nurse (DOUGHNUT FRYER) Student's documentation and verified the findings in the note as written. Any additions or changes are noted in bold/italics. Signature: Tracy Meyer Date: 10/15/2021 Time: 3:30 PM documented in this encounter [facility] 10-15-2021 Instructions Tracy Meyer APRN.LILA - [...] after 3-4 days. documented in this encounter [facility] 10-01-2021 History of Present illness Narrative Patient left without being seen and notified no one. No valid phone number No Directworkshart. Ron Ortega PA-C documented in this encounter [facility] 07-15-2021 Miscellaneous Notes Attempted to call, [...] Janis Velazco APRN.CNM documented in this encounter [facility] 07-13-2021 Instructions Tracy Aguillon APRN.CNM - [...] safe to do so in terms of intermodal customer service heart disease risk. HT and breast cancer [...] Women: Randomized Trial. BMJ Jan 2012. [place] [employer]. The 2012 hormone therapy position statement Accessed 09/21/12. [place] [employer]. [place] [employer] Medical Guidelines for [...] an alternate prescription. documented in this encounter [facility] 07-13-2021 History of Present illness Narrative [...] L3 SAB0 IAB0 Ectopic0 Multiple0 Live Births0 Box Printer History LMP: 08/07/2013, IUD Age at Menarche: Age at First : Age at Menopause: Box Printer History Comments: Sexual Activity: Yes; Male; Mirena [...] 1 capsule by mouth once daily. Insulin Vanderwagen, Disposable, (SURE-FINE PEN NEEDLES) 31 gauge x [...] external genitalia normal, normal Bartholin's glands, urethra, Lowden's glands, no vulvar lesions, no cervical lesions, [...] Tracy Aguillon APRN.CNM documented in this encounter [facility] documented as of this encounter (statuses as of 10/02/2021) [facility] History of Past illness Narrative* Problem Noted Date Resolved Date Dyslipidemia 01/12/2016 10/01/2021 Pain in limb 05/13/2014 06/07/2016 Chest pain, atypical 06/04/2013 06/07/2016 documented as of this encounter (statuses as of 10/15/2021) [facility] History of Past illness Narrative* Problem Noted Date Resolved Date Dyslipidemia 01/12/2016 10/01/2021 Pain in limb 05/13/2014 06/07/2016 Chest pain, atypical 06/04/2013 06/07/2016 documented as of this encounter (statuses as of 01/04/2022) [place] [address]-19-2016 History of Past illness Narrative* Problem Noted Date Resolved Date Dyslipidemia 01/12/2016 10/01/2021 Pain in limb 05/13/2014 06/07/2016 Chest pain, atypical 06/04/2013 06/07/2016 documented as of this encounter (statuses as of 01/11/2022) [facility] History of Past illness Narrative* Problem Noted Date Resolved Date Dyslipidemia 01/12/2016 10/01/2021 Pain in limb 05/13/2014 06/07/2016 Chest pain, atypical 06/04/2013 06/07/2016 documented as of this encounter (statuses as of 04/16/2022) [place] [address]-19-2016 History of Past illness Narrative* Problem Noted Date Resolved Date Dyslipidemia 01/12/2016 10/01/2021 Pain in limb 05/13/2014 06/07/2016 Chest pain, atypical 06/04/2013 06/07/2016 documented as of this encounter (statuses as of 04/26/2022) [place] [address]-19-2016 History of Past illness Narrative* Problem Noted Date Resolved Date Dyslipidemia 01/12/2016 10/01/2021 Pain in limb 05/13/2014 06/07/2016 Chest pain, atypical 06/04/2013 06/07/2016 documented as of this encounter (statuses as of 04/28/2022) [address]19-2016 History of Past illness Narrative* Problem Noted Date Resolved Date Dyslipidemia 01/12/2016 10/01/2021 Pain in limb 05/13/2014 06/07/2016 Chest pain, atypical 06/04/2013 06/07/2016 documented as of this encounter (statuses as of 04/29/2022) [address]19-2016 History of Past illness Narrative* Problem Noted Date Resolved Date Dyslipidemia 01/12/2016 10/01/2021 Pain in limb 05/13/2014 06/07/2016 Chest pain, atypical 06/04/2013 06/07/2016 documented as of this encounter (statuses as of 05/05/2022) [address]19-2016 History of Past illness Narrative* Problem Noted Date Resolved Date Dyslipidemia 01/12/2016 10/01/2021 Pain in limb 05/13/2014 06/07/2016 Chest pain, atypical 06/04/2013 06/07/2016 documented as of this encounter (statuses as of 05/31/2022) [address]19-2016 History of Past illness Narrative* Problem Noted Date Resolved Date Dyslipidemia 01/12/2016 10/01/2021 Pain in limb 05/13/2014 06/07/2016 Chest pain, atypical 06/04/2013 06/07/2016 documented as of this encounter (statuses as of 06/23/2022) [address]19-2016 History of Past illness Narrative* Problem Noted Date Resolved Date Dyslipidemia 01/12/2016 10/01/2021 Pain in limb 05/13/2014 06/07/2016 Chest pain, atypical 06/04/2013 06/07/2016 documented as of this encounter (statuses as of 06/29/2022) [address]19-2016 History of Past illness Narrative* Problem Noted Date Resolved Date Dyslipidemia 01/12/2016 10/01/2021 Pain in limb 05/13/2014 06/07/2016 Chest pain, atypical 06/04/2013 06/07/2016 documented as of this encounter (statuses as of 06/29/2022) [address]19-2016 History of Past illness Narrative* Problem Noted Date Resolved Date Dyslipidemia 01/12/2016 10/01/2021 Pain in limb 05/13/2014 06/07/2016 Chest pain, atypical 06/04/2013 06/07/2016 documented as of this encounter (statuses as of 06/30/2022) [address]19-2016 History of Past illness Narrative* Problem Noted Date Resolved Date Dyslipidemia 01/12/2016 10/01/2021 Pain in limb 05/13/2014 06/07/2016 Chest pain, atypical 06/04/2013 06/07/2016 documented as of this encounter (statuses as of 07/21/2022) [address]19-2016 History of Past illness Narrative* Problem Noted Date Resolved Date Dyslipidemia 01/12/2016 10/01/2021 Pain in limb 05/13/2014 06/07/2016 Chest pain, atypical 06/04/2013 06/07/2016 documented as of this encounter (statuses as of 09/22/2022) [address]19-2016 History of Past illness Narrative* Problem Noted Date Resolved Date Dyslipidemia 01/12/2016 10/01/2021 Pain in limb 05/13/2014 06/07/2016 Chest pain, atypical 06/04/2013 06/07/2016 documented as of this encounter (statuses as of 10/29/2022) [address]19-2016 History of Past illness Narrative* Problem Noted Date Diagnosed Date Resolved Date Dyslipidemia 01/12/2016 10/01/2021 Pain in limb 05/13/2014 06/07/2016 Chest pain, atypical 06/04/2013 017 documented as of this encounter (statuses as of 11/01/2022) [address]19-2016 History of Past illness Narrative* Problem Noted Date Diagnosed Date Resolved Date Dyslipidemia 01/12/2016 10/01/2021 Pain in limb 05/13/2014 06/07/2016 Chest pain, atypical 06/04/2013 017 documented as of this encounter (statuses as of 11/17/2022) [address]19-2016 History of Past illness Narrative* Problem Noted Date Diagnosed Date Resolved Date Dyslipidemia 01/12/2016 10/01/2021 Pain in limb 05/13/2014 06/07/2016 Chest pain, atypical 06/04/2013 017 documented as of this encounter (statuses as of 02/27/2023) [facility] History of Past illness Narrative* Problem Noted Date Diagnosed Date Resolved Date Dyslipidemia 01/12/2016 10/01/2021 Pain in limb 05/13/2014 06/07/2016 Chest pain, atypical 06/04/2013 017 documented as of this encounter (statuses as of 06/14/2023) [facility] History of Past illness Narrative* Problem Noted Date Resolved Date Pain in limb 05/13/2014 06/07/2016 Chest pain, atypical 06/04/2013 06/07/2016 documented as of this encounter (statuses as of 07/13/2021) [facility] History of Past illness Narrative* Problem Noted Date Resolved Date Pain in limb 05/13/2014 06/07/2016 Chest pain, atypical 06/04/2013 06/07/2016 documented as of this encounter (statuses as of 07/15/2021) [facility] Diagnosis Vaginal burning- Primary Other specified symptom associated with female genital organs Screen for STD (sexually transmitted disease) Screening examination for venereal disease Vaginal atrophy Postmenopausal atrophic vaginitis IUD check up Surveillance of previously prescribed intrauterine contraceptive device [facility] Chest pain in adult- Primary Essential hypertension Unspecified essential hypertension Mixed hyperlipidemia Type 2 diabetes mellitus with hyperglycemia, with long-term current use of insulin (HCC) Lupus (HCC) Systemic lupus erythematosus Chronic pain of right knee 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 Complex regional pain syndrome type 1 of right lower extremity Fibromyalgia Mylagia and myositis, unspecified Neuropathic pain Neuralgia, neuritis, and radiculitis, unspecified [facility] Abscess, scalp- Primary Cellulitis and abscess of other specified site [facility] Diagnosis Encounter for screening mammogram for breast cancer [facility] Diagnosis Type 2 diabetes mellitus with hyperglycemia, with long-term current use of insulin (HCC)- Primary Mixed hyperlipidemia Recurrent UTI (urinary tract infection) Urinary tract infection, site not specified Middle ear effusion, left [facility] Diagnosis Tongue plaque- Primary Leukoplakia of oral mucosa, including tongue [facility] Diagnosis Pneumonia of right lower lobe due to methicillin resistant Staphylococcus aureus (MRSA) (HCC)- Primary Hospital discharge follow-up Other follow-up examination Influenza A Influenza with other respiratory manifestations Type 2 diabetes mellitus with hyperglycemia, with long-term current use of insulin ([facility]) Adenopathy, hilar right Enlargement of lymph nodes Essential hypertension Unspecified essential hypertension Tobacco abuse Tobacco use disorder [facility] Diagnosis Encounter for screening mammogram for breast cancer documented in this encounter [facility] note* Diagnosis Pneumonia of right lower lobe due to methicillin resistant Staphylococcus aureus (MRSA) (HCC)- Primary Lupus (HCC) Systemic lupus erythematosus Type 2 diabetes mellitus with hyperglycemia, with long-term current use of insulin ([facility]) Fatigue, unspecified type documented in this encounter [facility] note* Diagnosis Type 2 diabetes mellitus with hyperglycemia, with long-term current use of insulin (HCC)- Primary documented in this encounter [facility] note* Diagnosis Encounter for screening mammogram for breast cancer [facility] Outpatient Procedure (Routine) - Pending Review Specialty Diagnoses / Procedures Referred By Leanne barry Referred To Contact [facility] Diagnoses IUD check up Procedures REMOVE INTRAUTERINE DEVICE REMOVE INTRAUTERINE DEVICE Tracy Aguillon APRN.CNM [address] [place] [address] [address] Referral ID Status Reason Start Date Expiration Date Visits Requested Visits Authorized [id number] Pending Review Auto-Generat ed Referral 07/13/2021 07/13/2022 1 1 [facility] Diagnostic Procedure Only (Routine) - Pending Review Specialty Diagnoses / Procedures Referred By Leanne barry Referred To Contact [facility] Diagnoses Encounter for screening mammogram for breast cancer Procedures [facility]ENDEL SCREENING SCREENING MAMMOGRAPHY BI 2-VIEW BREAST INC Sonia Alberto PA-C [address] [place] [address] [facility] [address] [place] [address] Referral ID Status Reason Start Date Expiration Date Visits Requested Visits Authorized [id number] Pending Review Auto-Generat ed Referral 12/30/2021 01/29/2023 1 1 [facility] for referral (narrative)* Diagnostic Procedure Only (Routine) - Pending Review Specialty Diagnoses / Procedures Referred By Contmiguel a t Referred To Contact [facility] Diagnoses Encounter for screening mammogram for breast cancer Procedures [facility] SCREENING SCREENING MAMMOGRAPHY BI 2-VIEW BREAST INC Sonia Alberto PA-C [address] [place] [address] [facility] [address] [place] [address] Referral ID Status Reason Start Date Expiration Date Visits Requested Visits Authorized [id number] Pending Review Auto-Generat ed Referral 05/26/2022 06/25/2023 1 1 [facility] for referral (narrative)* Diagnostic Procedure Only (Routine) - Closed Specialty Diagnoses / Procedures Referred By Contmiguel a t Referred To Contact [facility] Diagnoses Encounter for screening mammogram for breast cancer Procedures [facility] SCREENING SCREENING MAMMOGRAPHY BI 2-VIEW BREAST INC Sonia Alberto PA-C [address] [place] [address] [facility] [address] [place] [address] Referral ID Status Reason Start Date Expiration Date V isits Requested Visits Authorized [id number] Closed Auto-Generate d Referral 05/26/2022 06/25/2023 1 1 T [facility] for visit Narrative* Diagnostic Procedure Only (Routine) - Closed Specialty Diagnoses / Procedures Referred By Contac t Referred To Contact [facility] Diagnoses Encounter for screening mammogram for breast cancer Procedures MENDEL SCREENING SCREENING MAMMOGRAPHY BI 2-VIEW BREAST INC CAD Sonia Ortega PA-C [address] [place] [address] [facility] [address] [place] [address] Referral ID Status Reason Start Date Expiration Date V isits Requested Visits Authorized [id number] Closed Auto-Generate d Referral 05/26/2022 06/25/2023 1 1 [facility] Summary Purpose Family History No Family History Records FoundNo Family History Records FoundNo Family History Records FoundNo Family History Records Found Advance Directives Documents on File Type Date Recorded Patient 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 Expl 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 Advance Directive(s) 05/01/2019 9:53 AM Advance Directive(s) 04/30/2019 8:07 PM Advance Directive(s) 02/27/2019 8:50 AM Advance Directive(s) 02/19/2019 8:45 AM Advance Directive(s) 05/03/2017 7:39 AM Advance Directive(s) 04/26/2017 3:39 PM Documents on File Type Date Recorded Patient 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 Expl anation Advance Directive(s) 05/01/2019 9:53 AM Advance Directive(s) 04/30/2019 8:07 PM Advance Directive(s) 02/27/2019 8:50 AM Advance Directive(s) 02/19/2019 8:45 AM Advance Directive(s) 05/03/2017 7:39 AM Advance Directive(s) 04/26/2017 3:39 PM Reason for Referral Specialty Diagnoses / Procedures Referred By Leanne barry Referred To Contact Diagnoses Type 2 diabetes mellitus with hyperglycemia, with long-term current use of insulin (HCC) Madhuri Gibbs, DOUGHNUT FRYER.TOOL CRIB MANAGER [address] [place] [address] Referral ID Status Reason Start Date Expiration Date Visits Re quested Visits Authorized [id number] Closed 1 1 Additional Source Comments INFORMATION SOURCE (unrecogn ized section and content) DATE CREATED AUTHOR AUTHOR'S ORGANIZ ATION 05/04/2019 [facility] DATE CREATED AUTHOR AUTHOR'S ORGANIZ ATION 06/27/2019 [facility] ([place]) DATE CREATED AUTHOR AUTHOR'S ORGANIZ ATION 05/11/2023 [facility] Source Comments (unrecognize d section and content) In the event this informatio n is protected by the Federal Confidentiality of Alcohol and Drug Abuse Patient Records regulations: The Federal rules restrict any use of the information to criminally investigate or prosecute any alcohol or drug abuse patient.[facility] the event this information is protected by the Federal Confidentiality of Alcohol and Drug Abuse Patient Records regulations: The Federal rules restrict any use of the information to criminally investigate or prosecute any alcohol or drug abuse patient.[facility] the event this information is protected by the Federal Confidentiality of Alcohol and Drug Abuse Patient Records regulations: The Federal rules restrict any use of the information to criminally investigate or prosecute any alcohol or drug abuse patient.[facility] the event this information is protected by the Federal Confidentiality of Alcohol and Drug Abuse Patient Records regulations: The Federal rules restrict any use of the information to criminally investigate or prosecute any alcohol or drug abuse patient.[facility] the event this information is protected by the Federal Confidentiality of Alcohol and Drug Abuse Patient Records regulations: The Federal rules restrict any use of the information to criminally investigate or prosecute any alcohol or drug abuse patient.[facility] the event this information is protected by the Federal Confidentiality of Alcohol and Drug Abuse Patient Records regulations: The Federal rules restrict any use of the information to criminally investigate or prosecute any alcohol or drug abuse patient.[facility] the event this information is protected by the Federal Confidentiality of Alcohol and Drug Abuse Patient Records regulations: The Federal rules restrict any use of the information to criminally investigate or prosecute any alcohol or drug abuse patient.[facility] the event this information is protected by the Federal Confidentiality of Alcohol and Drug Abuse Patient Records regulations: The Federal rules restrict any use of the information to criminally investigate or prosecute any alcohol or drug abuse patient.[facility] the event this information is protected by the Federal Confidentiality of Alcohol and Drug Abuse Patient Records regulations: The Federal rules restrict any use of the information to criminally investigate or prosecute any alcohol or drug abuse patient.[facility] the event this information is protected by the Federal Confidentiality of Alcohol and Drug Abuse Patient Records regulations: The Federal rules restrict any use of the information to criminally investigate or prosecute any alcohol or drug abuse patient.[facility] the event this information is protected by the Federal Confidentiality of Alcohol and Drug Abuse Patient Records regulations: The Federal rules restrict any use of the information to criminally investigate or prosecute any alcohol or drug abuse patient.[facility] the event this information is protected by the Federal Confidentiality of Alcohol and Drug Abuse Patient Records regulations: The Federal rules restrict any use of the information to criminally investigate or prosecute any alcohol or drug abuse patient.[facility] the event this information is protected by the Federal Confidentiality of Alcohol and Drug Abuse Patient Records regulations: The Federal rules restrict any use of the information to criminally investigate or prosecute any alcohol or drug abuse patient.[facility] the event this information is protected by the Federal Confidentiality of Alcohol and Drug Abuse Patient Records regulations: The Federal rules restrict any use of the information to criminally investigate or prosecute any alcohol or drug abuse patient.[facility] the event this information is protected by the Federal Confidentiality of Alcohol and Drug Abuse Patient Records regulations: The Federal rules restrict any use of the information to criminally investigate or prosecute any alcohol or drug abuse patient.[facility] the event this information is protected by the Federal Confidentiality of Alcohol and Drug Abuse Patient Records regulations: The Federal rules restrict any use of the information to criminally investigate or prosecute any alcohol or drug abuse patient.[facility] the event this information is protected by the Federal Confidentiality of Alcohol and Drug Abuse Patient Records regulations: The Federal rules restrict any use of the information to criminally investigate or prosecute any alcohol or drug abuse patient.[facility] the event this information is protected by the Federal Confidentiality of Alcohol and Drug Abuse Patient Records regulations: The Federal rules restrict any use of the information to criminally investigate or prosecute any alcohol or drug abuse patient.[facility] the event this information is protected by the Federal Confidentiality of Alcohol and Drug Abuse Patient Records regulations: The Federal rules restrict any use of the information to criminally investigate or prosecute any alcohol or drug abuse patient.[facility] the event this information is protected by the Federal Confidentiality of Alcohol and Drug Abuse Patient Records regulations: The Federal rules restrict any use of the information to criminally investigate or prosecute any alcohol or drug abuse patient.[facility] the event this information is protected by the Federal Confidentiality of Alcohol and Drug Abuse Patient Records regulations: The Federal rules restrict any use of the information to criminally investigate or prosecute any alcohol or drug abuse patient.[facility] the event this information is protected by the Federal Confidentiality of Alcohol and Drug Abuse Patient Records regulations: The Federal rules restrict any use of the information to criminally investigate or prosecute any alcohol or drug abuse patient.[facility] the event this information is protected by the Federal Confidentiality of Alcohol and Drug Abuse Patient Records regulations: The Federal rules restrict any use of the information to criminally investigate or prosecute any alcohol or drug abuse patient.[facility] Reason for Visit (unrecogniz ed section [...] Request 09/21/2022 Reason Comments Insurance Authorization [id number] Reason Onset Date Comments Refill Request 06/11/2023 Care Teams (unrecognized sec tion and content) Groundskeeper Supervisor Relationship Specialty Start Date End Date Sonia Ortega PA-C [address] [place] [address] PCP - General Family Practice 06/07/16 Groundskeeper Supervisor Relationship Specialty Start Date End Date Sonia Ortega PA-C [address] [place] [address] PCP - General Family Practice 06/07/16 Groundskeeper Supervisor Relationship Specialty Start Date End Date Sonia Ortega PA-C [address] [place] [address] PCP - General Family Practice 06/07/16 Groundskeeper Supervisor Relationship Specialty Start Date End Date Sonia Ortega PA-C [address] [place] [address] PCP - General Family Practice 06/07/16 Groundskeeper Supervisor Relationship Specialty Start Date End Date Sonia Ortega PA-C [address] [place] [address] PCP - General Family Practice 06/07/16 Groundskeeper Supervisor Relationship Specialty Start Date End Date Sonia Ortega PA-C [address] [place] [address] PCP - General Family Medicine 06/07/16 Groundskeeper Supervisor Relationship Specialty Start Date End Date Sonia Ortega PA-C [address] [facility] [place] [address] PCP - General Family Medicine 06/07/16 Groundskeeper Supervisor Relationship Specialty Start Date End Date Sonia Ortega PA-C [address] [facility] [place] [address] PCP - General Family Medicine 06/07/16 Groundskeeper Supervisor Relationship Specialty Start Date End Date Sonia Ortega PA-C [address] [facility] [place] [address] PCP - General Family Medicine 06/07/16 Groundskeeper Supervisor Relationship Specialty Start Date End Date Sonia Ortega PA-C [address] [facility] [place] [address] PCP - General Family Medicine 06/07/16 Groundskeeper Supervisor Relationship Specialty Start Date End Date Sonia Ortega PA-C [address] [facility] [place] [address] PCP - General Family Medicine 06/07/16 Groundskeeper Supervisor Relationship Specialty Start Date End Date Sonia Ortega PA-C [address] [facility] [place] [address] PCP - General Family Medicine 06/07/16 Groundskeeper Supervisor Relationship Specialty Start Date End Date Sonia Ortega PA-C [address] [facility] [place] [address] PCP - General Family Medicine 06/07/16 Groundskeeper Supervisor Relationship Specialty Start Date End Date Sonia Ortega PA-C [address] [facility] [place] [address] PCP - General Family Medicine 06/07/16 Groundskeeper Supervisor Relationship Specialty Start Date End Date Sonia Ortega PA-C [address] [facility] [place] [address] PCP - General Family Medicine 06/07/16 Groundskeeper Supervisor Relationship Specialty Start Date End Date Sonia Ortega PA-C [address] [place] [address] PCP - General Family Medicine 06/07/16 Groundskeeper Supervisor Relationship Specialty Start Date End Date Sonia Ortega PA-C [address] [facility] [place] [address] PCP - General Family Medicine 06/07/16 Groundskeeper Supervisor Relationship Specialty Start Date End Date Sonia Ortega PA-C [address] [facility] [place] [address] PCP - General Family Medicine 06/07/16 Groundskeeper Supervisor Relationship Specialty Start Date End Date Sonia Ortega PA-C [address] [facility] [place] [address] PCP - General [facility] Medicine 06/07/16 Groundskeeper Supervisor Relationship Specialty Start Date End Date Sonia Ortega PA-C [address] [facility] [place] [address] PCP - General Family Medicine 06/07/16 FOR [...] BE BASED ON THE PRIMARY CLINICAL RECORDS. [facility] [employer] [facility]. provides no warranty or guarantee of the accuracy or completeness of information in this document.
[2023-06-16 22:26] LABS: Anion Gap 4 (5-15); BUN 18 mg/dL (7-18); BUN/Creat Ratio 20.4 RATIO (10-20); Calcium,Total 9.3 mg/dL (8.5-10.1); Chloride 111 mmol/L (98-107); Creatinine, Serum 0.88 mg/dL (0.55-1.02); EST Glomerular Filtration Rate 74 mL/min (>60); Est Glom Filt Rate - Afr Amer 90 mL/min (>60); Estimated Creatinine Clearance 95.62 ml/min; Glucose 265 mg/dL (74-106); Sodium Level 140 mmol/L (136-145); Troponin-I HS (w/2H Reflex) 6 pg/mL (3.0-54.0)
[2023-06-16 22:36] VITALS: BP 143/86; PULSE 89; RESP 32
[2023-06-16 23:28] VITALS: BP 151/87; PULSE 90; RESP 32; O2SAT 97
[2023-06-17 00:04] LABS: Reflex Troponin-HS? (from REC) Y
[2023-06-17 00:33] LABS: Troponin-I HS 5 pg/mL (3.0-54.0)
[2023-06-17 00:57] VITALS: BP 157/84; PULSE 82; RESP 16; O2SAT 96
[2023-06-17 00:58] VITALS: BP 157/84; PULSE 84; RESP 16; TEMP 36.6; O2SAT 96
== END 2023-06-17 01:01 | disposition home or self-care (01) ==
PROVIDERS: Emergency Provider Emergency Medicine; PCP Family Medicine; Visit Provider Emergency Medicine
DX: R07.9 Chest pain, unspecified (principal); J44.9 Chronic obstructive pulmonary disease, unspecified; E11.9 Type 2 diabetes mellitus without complications; Z79.4 Long term (current) use of insulin; E78.00 Pure hypercholesterolemia, unspecified; F41.9 Anxiety disorder, unspecified; I10 Essential (primary) hypertension; G47.33 Obstructive sleep apnea (adult) (pediatric); F17.210 Nicotine dependence, cigarettes, uncomplicated; Z79.899 Other long term (current) drug therapy
CPT/HCPCS: 71045; 80048; 84484; 85025; 93005; 99284; A4216

== ENCOUNTER 2023-09-08 04:17 | Emergency (ER) | payer MEDICAID, SELFPAY ==
[2023-09-08 04:18] VITALS: BP 173/94; PULSE 93; RESP 18; TEMP 36.6; O2SAT 95; BMI 36.8
--- NOTE | 2023-09-08 04:28 | CT_ITS ---
STUDY: CT BRAIN WITHOUT CONTRAST REASON FOR EXAM: Female, 43 years old patient with closed head injury. RADIATION DOSAGE (If Supplied By Facility): CTDIvol = ( 44.99 ) mGy, DLP = ( 779.24 ) mGycm TECHNIQUE: Transaxial CT imaging of the brain was performed without administration of intravenous contrast material. Multiplanar reformations are submitted for interpretation. Individualized dose optimization techniques were used for this CT. COMPARISON: No relevant priors. FINDINGS: Normal soft tissue structures. Normal calvarium. Normal size ventricles and extra-axial spaces for the patient''s age. Normal white matter tracts of the cerebral hemispheres. Normal basal ganglia and thalami. Normal brainstem. Normal cerebellum. There is no intracranial hemorrhage. There are no findings of an acute ischemic infarction. Normal visualized paranasal sinuses. CT/Brain/Head without Contrast IMPRESSION: No CT evidence of acute intracranial hemorrhage. Electronically Signed: Machelle Mobley MD at 5:18 EDT ,
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
[2023-09-08 05:17] VITALS: BP 154/76; PULSE 84; RESP 16; TEMP 36.9; O2SAT 98
== END 2023-09-08 05:40 | disposition home or self-care (01) ==
PROVIDERS: Emergency Provider Emergency Medicine; PCP Family Medicine; Visit Provider Emergency Medicine
DX: S43.401A Unspecified sprain of right shoulder joint, initial encounter (principal); E11.9 Type 2 diabetes mellitus without complications; Z79.4 Long term (current) use of insulin; S00.12XA Contusion of left eyelid and periocular area, initial encounter; S00.511A Abrasion of lip, initial encounter; Y04.8XXA Assault by other bodily force, initial encounter; F17.210 Nicotine dependence, cigarettes, uncomplicated; Z79.84 Long term (current) use of oral hypoglycemic drugs
CPT/HCPCS: 70450; 70486; 72125; 73030; 99283

== ENCOUNTER 2023-09-29 19:02 | Emergency (ER) | payer MEDICAID, SELFPAY ==
[2023-09-29 19:02] VITALS: BP 165/83; PULSE 91; RESP 14; TEMP 36.6; O2SAT 100; BMI 38.2
--- NOTE | 2023-09-29 19:14 | RAD_ITS ---
EXAM: XR LEFT FOOT COMPLETE, 3 OR MORE VIEWS CLINICAL INDICATION: injury TECHNIQUE: Frontal, lateral and oblique views of the left foot. COMPARISON: No relevant prior studies available. FINDINGS: BONES/JOINTS: Unremarkable. No acute fracture. No subluxation. Normal alignment. Preservation of the joint space. No sclerotic or destructive changes observed. SOFT TISSUES: Unremarkable. No soft tissue swelling or gas. No radiopaque foreign body. RAD/Foot min 3 Views IMPRESSION: Negative left foot x-rays. Electronically Signed: Hima Milian MD at 19:46 EDT ,
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
[2023-09-29 19:34] VITALS: PULSE 68; RESP 17; O2SAT 98
[2023-09-29 19:40] LABS: Absolute Lymphocyte Count 1.78 X10^3/uL (0.83-4.51); Absolute Neutrophil Count 5.7 X10^3/uL (2.0-7.7); Basophil# 0.01 X10^3/uL; Basophil% 0.1 % (0-1); Eosinophil# 0.12 X10^3/uL; Eosinophils% 1.5 % (0-5); Hematocrit 45.9 % (37-47); Hemoglobin 15.6 g/dL (12.0-15.0); Lymphocyte # 1.78 X10^3/ul (0.83-4.51); Lymphocyte % 22.2 % (19-41); Mean Corpuscular Hgb 29.9 pg (27.0-32.0); Mean Corpuscular Volume 88.1 fL (81-99); Mean Platelet Vol. 9.4 fl (6.2-12.0); Monocyte# 0.43 X10^3/uL; Monocyte% 5.4 % (0-10); NRBC Flagged by Analyzer 0 % (0-5); Neutrophil # 5.65 X10^3/uL (2.7-7.7); Neutrophil % 70.6 % (47-70); Platelet Count 196 K/mm3 (150-450); RBC Distribution Width CV 13.2 % (11.6-14.6); RBC Distribution Width SD 42.7 fl (35.1-43.9); Red Blood Count 5.21 M/mm3 (4.2-5.4)
[2023-09-29 20:30] LABS: Anion Gap 4 (5-15); BUN 14 mg/dL (7-18); BUN/Creat Ratio 20.3 RATIO (10-20); Calcium,Total 9.1 mg/dL (8.5-10.1); Chloride 106 mmol/L (98-107); Creatinine, Serum 0.69 mg/dL (0.55-1.02); EST Glomerular Filtration Rate 99 mL/min (>60); Est Glom Filt Rate - Afr Amer 120 mL/min (>60); Estimated Creatinine Clearance 117.17 ml/min; Glucose 181 mg/dL (74-106); Potassium 3.6 mmol/L (3.5-5.1); Sodium Level 134 mmol/L (136-145)
--- NOTE | 2023-09-29 20:51 | CT_ITS ---
EXAM: CT ANGIOGRAPHY OF THE LEFT LOWER EXTREMITY WITH INTRAVENOUS CONTRAST CLINICAL INDICATION: left foot ischemia TECHNIQUE: Helically acquired angiography images of the left lower extremity with intravenous contrast using angiographic protocol. This CT exam was performed using one or more of the following dose reduction techniques: automated exposure control, adjustment of the mA and/or kV according to patient size, and/or use of iterative reconstruction technique. MIP reconstructed images were created and reviewed. CONTRAST: IV 100mL [id number] COMPARISON: No relevant prior studies available. FINDINGS: VASCULATURE: LEFT FEMORAL/POPLITEAL ARTERIES: There is narrowing of the left superficial femoral artery in the mid thigh best seen on series 2 image 133. The vessel narrowed approximately 60% and it is uncertain whether this is an actual physical narrowing or artifact. Vessels are otherwise widely patent. There is three-vessel runoff into the foot. LEFT CALF/FOOT ARTERIES: No acute findings. No occlusion or significant stenosis. LOWER EXTREMITY: BONES/JOINTS: Unremarkable. No acute fracture. No subluxation. Normal alignment. Preservation of the joint space. No sclerotic or destructive changes. SOFT TISSUES: Unremarkable. No soft tissue swelling or gas. No radiopaque foreign body. CT/CTA LWR EXTR W/O & W/DYE IMPRESSION: Questionable focal narrowing of the mid left superficial femoral artery. No other abnormalities are identified. Electronically Signed: Hima Milian MD at 21:45 EDT ,
[2023-09-29 21:34] VITALS: BP 142/75; PULSE 77; RESP 15; O2SAT 98
[2023-09-29 23:00] VITALS: BP 140/74; PULSE 78; RESP 16; O2SAT 98
[2023-09-29] MEDS: HYDROcodone Bitartrate/Apap 5/325 Tablet PO (23:10)
[2023-09-29] MEDS: Clopidogrel Bisulfate 300 MG Tablet PO (23:10)
[2023-09-29] MEDS: Atorvastatin Calcium 20 MG Tablet PO (23:10)
[2023-09-29 23:13] VITALS: BP 140/74; PULSE 78; RESP 16; TEMP 36.4; O2SAT 98
== END 2023-09-29 23:16 | disposition home or self-care (01) ==
PROVIDERS: Emergency Provider Emergency Medicine; PCP Family Medicine; Visit Provider Emergency Medicine
DX: I74.9 Embolism and thrombosis of unspecified artery (principal); M32.9 Systemic lupus erythematosus, unspecified; E11.9 Type 2 diabetes mellitus without complications; Z79.4 Long term (current) use of insulin; M79.672 Pain in left foot; I10 Essential (primary) hypertension; Z79.899 Other long term (current) drug therapy; Z79.02 Long term (current) use of antithrombotics/antiplatelets; F17.210 Nicotine dependence, cigarettes, uncomplicated; R09.89 Other specified symptoms and signs involving the circulatory and respiratory systems
CPT/HCPCS: 73630; 73706; 80048; 85025; 85379; 99285; Q9967; A4216

== ENCOUNTER 2023-10-06 08:18 | Emergency (ER) | payer MEDICAID, SELFPAY ==
[2023-10-06 08:18] VITALS: BP 161/86; PULSE 73; RESP 14; TEMP 36.6; O2SAT 96; BMI 38.5
--- NOTE | 2023-10-06 09:04 | RAD_ITS ---
STUDY: X-RAY - LEFT FOOT CLINICAL: Female, 43 years old. Pain and swelling great toe TECHNIQUE: 3 view(s) of the foot. COMPARISON: Comparison is made with prior study dated September 29, 2023. FINDINGS: Normal talus, calcaneus, and tarsal bones. Normal visualized subtalar, talonavicular, calcaneocuboid, tarsal and tarsometatarsal articulations. Normal metatarsi. Normal metatarsophalangeal joint of the great toe. Normal tibial and fibular sesamoid bones. Normal interphalangeal joint of the great toe. Normal phalanges of the great toe. Normal second through fifth metatarsophalangeal joints. Normal interphalangeal joints and phalanges of the lesser toes. Soft tissue swelling overlying the great toe. RAD/Foot min 3 Views IMPRESSION: Soft tissue swelling overlying the great toe. Electronically Signed: Jamel Zapata MD at 10:31 EDT ,
--- NOTE | 2023-10-06 09:04 | ED.VIS.LOWEX ---
HPI History of Present Illness Chief Complaint: Lower Extremity Injury Informant: patient and spouse/S.O. Narrative Narrative: 43-year-old female presenting to the emergency room with left foot pain. Patient states that she was seen in the emergency room approximately 1 week ago. She states she was diagnosed with a blood clot in her foot started on Plavix and is supposed to see vascular surgery on 11 October. Patient states that she has developed swelling up onto the foot continued pain to the point where she does not wish to walk. She is a smoker and a diabetic. She states that she does not have any other medical problems. After reviewing her chart I went back and asked her and she does state that she has a history of lupus. She takes metoprolol but is not sure why. Patient was felt to have a thromboembolism Case was discussed with both podiatry and vascular surgery. A CTA of the lower extremity was obtained: There is narrowing of the left superficial femoral artery in the mid thigh best seen on series 2 image 133. The vessel narrowed approximately 60% and it is uncertain whether this is an actual physical narrowing or artifact. Vessels are otherwise widely patent. There is three-vessel runoff into the foot. [facility] Medical History Physical exam, pre-employment Acute respiratory failure with hypoxemia Community acquired pneumonia due to methicillin resistant Staphylococcus aureus (MRSA) Chest pain Diabetes HTN (hypertension) Lupus Leaky heart valve Cellulitis of foot, right Anxiety Home Medications ?Medication ?Instructions ?Recorded ?Last Taken ?Type insulin glargine 100 unit/mL (3 30 unit SQ QHS BLOOD SUGARS 04/29/17 10/05/23 History mL) subcutaneous pen empagliflozin 10 mg tablet 10 mg PO DAILY BLOOD SUGARS 07/07/22 10/05/23 History (Jardiance) linagliptin 5 mg tablet (Tradjenta) 5 mg PO DAILY BLOOD SUGARS 10/15/22 10/05/23 History gabapentin 300 mg capsule 300 mg PO TID NEUROPATHY 05/11/23 Unknown History albuterol sulfate 90 mcg/actuation 2 puff inhalation Q4H PRN 07/26/23 Unknown Rx aerosol inhaler (Ventolin HFA) SHORTNESS OF BREATH/WHEEZING #18 grams tiotropium 2.5 mcg-olodaterol 2.5 2 inh inhalation DAILY COPD #3 ea 07/26/23 10/05/23 Rx mcg/actuation mist for inhalation (Stiolto Respimat) atorvastatin 40 mg tablet 40 mg PO DAILY CHOLESTEROL #30 tabs 09/29/23 10/05/23 Rx clopidogrel 75 mg tablet (Plavix) 75 mg PO DAILY BLOOD THINNER #30 09/29/23 10/05/23 Rx tabs metoprolol succinate 25 mg 25 mg PO DAILY BLOOD PRESSURE 09/29/23 10/05/23 History tablet,extended release 24 hr cilostazol 100 mg tablet 100 mg PO BID #60 tabs 10/06/23 Unknown Rx hydrocodone-acetaminophen 5-325mg 1 tab PO Q6H PRN PRN Pain 3 days 10/06/23 Unknown Rx 5mg-325mg #12 TABLETS ipratropium 0.5 mg-albuterol 3 mg 3 ml inhalation Q4H PRN SHORTNESS 10/06/23 Unknown History (2.5 mg base)/3 mL nebulization OF BREATH/WHEEZING soln nitroglycerin 2 % transdermal 0.5 inch transdermal BID PRN pain 10/06/23 Unknown Rx ointment #60 grams Allergy/AdvReac Type Severity Reaction Status Date / Time cetirizine HCl (From Zyrtec) Allergy Hives Verified 10/06/23 08:19 prochlorperazine edisylate Allergy Hives Verified 10/06/23 08:19 (From Compazine) prochlorperazine maleate Allergy Hives Verified 10/06/23 08:19 (From Compazine) acetaminophen (From Percocet) AdvReac Nausea/Vom/ Verified 10/06/23 08:19 Diarrhea oxycodone (From Percocet) AdvReac Nausea/Vom/ Verified 10/06/23 08:19 Diarrhea Family History Mother Diabetes Hypertension Father Diabetes Surgical History S/P laparoscopic cholecystectomy Social History Smoking Status: Current every day smoker tobacco type: cigarettes alcohol intake: never ROS ROS ED Constitutional Constitutional ED: Denies chills, fever(s) or weight loss Eyes Eyes: Denies change in vision or diplopia ENT ENT ED: Denies ear pain, rhinorrhea or sore throat Cardiovascular Cardiovascular: Denies chest pain, orthopnea, palpitations or racing heartbeat Respiratory/Chest Respiratory/Chest: Denies cough, dyspnea or orthopnea Gastrointestinal Gastrointestinal: Denies abdominal pain, diarrhea, nausea or vomiting Genitourinary Genitourinary ED: Denies dysuria, hematuria or urinary frequency Musculoskeletal Musculoskeletal: Reports other Details: Left foot pain and swelling great toe discoloration ; Denies arthralgias or myalgias Integumentary Denies abscess or rash Neurologic Neurologic: Denies headache(s) or weakness Psychiatric Psychiatric: Denies anxiety, depression, suicidal ideation or suicidal thoughts Endocrine Endocrinology: Denies polydipsia, polyphagia or polyuria Allergic/Immunologic Allergic/Immunologic ED: Denies mouth swelling, tongue swelling or urticaria EXAM Physical Exam Const Vital Signs: 10/06/23 08:18 10/06/23 12:18 Temperature 97.9 F Temperature Source Temporal Pulse Rate 73 82 Respiratory Rate 14 16 Blood Pressure 161/86 H 148/68 H Blood Pressure Mean 111 94 Pulse Ox 96 98 Oxygen Delivery Method Room Air Positive well nourished, well developed and obese Constitutional Narrative: Patient with arms rested behind her head in a recumbent position General Appearance ED: well developed and NAD Nutritional Appearance: obese HEENT Reports normocephalic, head/scalp atraumatic and moist mucous membranes Eyes PERRL and EOMs intact bilaterally Neck full ROM, no lymphadenopathy, supple and no JVD Resp normal respiratory effort and clear to auscultation bilaterally Cardio regular rate, regular rhythm and no murmurs GI normal to inspection, nondistended, normoactive bowel sounds and non-tender Palpation: soft Back/Spine no CVA tenderness and normal ROM Extremity Extremity Narrative: Left great toe has a purpleish hue to it slightly cool to the touch. There is some mild erythema over the proximal great toe phalanx extending up onto the midfoot. There is some mild swelling in this region. Neuro oriented x3 and CN's II-XII intact bilaterally Sensorium / Orientation: alert Motor Exam: strength 5/5 throughout Psych mental status grossly normal Mood & Affect: Negative for depressed or tearful Skin no rashes or lesions noted and no wounds MDM MDM MDM Narrative Medical decision making narrative: Differential diagnosis includes but not limited to thromboembolism, cellulitis, osteomyelitis, ischemia, electrolyte dysfunction, anemia, My independent interpretation of the plain films of the left foot there is no obvious bony destruction. Mild soft tissue swelling. Basic blood work was obtained essentially negative except for glucose of 328 lactic acid is 1.6. Normal coags. I did review the patient's CTA from prior ED visit. I was able to obtain ABIs which are available for review. I spoke with vascular surgery who came to the emergency department to evaluate the patient. Patient be discharged home with a short course of hydrocodone, Pletal as well as Nitropaste. She will follow-up in the office. Patient is comfortable with this plan History & Record Review Discussion w/independent historian: Patient and Significant other Additional record(s) reviewed:: Prior ED visit and Prior labs Lab Data Attestation: I reviewed the patient's lab results. Labs: Laboratory Results - last 24 hr 10/06/23 09:15 WBC 7.6 RBC 4.97 Hgb 15.0 Hct 44.3 MCV 89.1 MCH 30.2 MCHC 33.9 RDW Std Deviation 43.0 RDW Coeff of Sriram 13.2 Plt Count 196 MPV 9.7 Immature Gran % (Auto) 0.300 Neut % (Auto) 71.4 H Lymph % (Auto) 19.4 [place] % (Auto) 6.8 Eos % (Auto) 1.7 Baso % (Auto) 0.4 Absolute Neuts (auto) 5.4 Absolute Lymphs (auto) 1.48 Nucleated RBC % 0 PT 12.9 INR 1.0 APTT 28.5 Sodium 135 L Potassium 4.4 Chloride 104 Carbon Dioxide 26.0 Anion Gap 5 BUN 14 Creatinine 0.81 Estim Creat Clear Calc 100.26 Est GFR (MDRD) Af Amer 99 Est GFR (MDRD) Non-Af 82 BUN/Creatinine Ratio 17.2 Glucose 328 H Lactic Acid 1.6 Calcium 9.4 Total Bilirubin 0.20 Direct Bilirubin 0.07 AST 17 ALT 18 Alkaline Phosphatase 92 Total Protein 7.0 Albumin 2.9 L Globulin 4.1 Radiography Diagnostic Testing: Clinical Impression(s) from Imaging Studies Foot X-Ray 10/06/23 09:04 IMPRESSION: Soft tissue swelling overlying the great toe. Electronically Signed: Jamel Zapata MD at 10:31 EDT , Discharge Plan Triage Chief Complaint: Lower Extremity Injury ED Provider: Mal Gomez Dx/Rx/DC Orders Clinical Impression: Thromboembolism, Acute pain of left foot Instructions: ED Peripheral Artery Disease (PAD) Prescriptions: New cilostazol 100 mg tablet 100 mg PO BID Qty: 60 0RF nitroglycerin 2 % ointment 0.5 inch transdermal BID PRN (Reason: pain) Qty: 60 0RF Rx Instructions: administer 2 doses/day (approx. 6 hrs apart); remove for 10-12 hrs per 24 hours hydrocodone-acetaminophen 5-325 mg tablet 1 tab PO Q6H PRN PRN (Reason: Pain) 3 Days Qty: 12 0RF No Action Jardiance 10 mg tablet 10 mg PO DAILY Tradjenta 5 mg tablet 5 mg PO DAILY gabapentin 300 mg capsule 300 mg PO TID Patient Comments: PT STATES THAT THEY HAVE THIS MEDICATION BUT THEY DON'T OFTEN NEED TO TAKE IT ( OF 10/06/23) albuterol sulfate [Ventolin HFA] 90 mcg/actuation HFA aerosol inhaler 2 puff inhalation Q4H PRN (Reason: SHORTNESS OF BREATH/WHEEZING ) Qty: 18 6RF Stiolto Respimat 2.5-2.5 mcg/actuation mist 2 inh inhalation DAILY Qty: 3 3RF insulin glargine 100 UNIT/ML insulin pen 30 unit SQ QHS metoprolol succinate 25 mg tablet extended release 24 hr 25 mg PO DAILY clopidogrel [Plavix] 75 mg tablet 75 mg PO DAILY Qty: 30 0RF atorvastatin 40 mg tablet 40 mg PO DAILY Qty: 30 0RF ipratropium-albuterol 0.5 mg-3 mg(2.5 mg base)/3 mL solution for nebulization 3 ml inhalation Q4H PRN (Reason: SHORTNESS OF BREATH/WHEEZING) Primary Care Provider: Eldon Hernandez Referrals: Flavio Ogden MD [Med Staff - Active Staff] - Keep Treva appointment Eldon Hernandez MD [Primary Care Provider] - Print Language: Maori Disposition Disposition: Home, Self Care
--- NOTE | 2023-10-06 09:10 | ART_ITS ---
Reason For Study: Thromboembolism of Lt Foot Procedure A bilateral lower extremity continuous wave Doppler with analog waveform analysis and ankle brachial indexes. Left Segmental Pressures Left brachial= 154mmHg. Left posterior tibial artery = 116mmHg. Left dorsalis pedis artery = 126mmHg. The left posterior tibial artery waveforms are triphasic. The left dorsalis pedis waveforms are biphasic. Right Segmental Pressures Right posterior tibial artery = 161mmHg. Right dorsalis pedis artery = 160mmHg. The right posterior tibial artery waveforms are triphasic. The right dorsalis pedis waveforms are triphasic. Indices The right ankle brachial index by the posterior tibial artery is 1.05. The right ankle brachial index by the dorsalis pedis is 1.04. The left ankle brachial index by the posterior tibial artery is 0.75. The left ankle brachial index by the dorsalis pedis is 0.82. VL/Ankle Brachial Index Interpretation Summary Right ALOK 1.05, normal. Doppler/PVR waveforms of the right ankle normal at rest . Left ALOK 0.82, moderate arterial insufficiency. Doppler/PVR waveforms of the le ft ankle normal at rest. Ordering Physician: Mal Gomez Referring Physician: Eldon Hernandez Performed By: Mateus Tristan RVT
[2023-10-06 09:22] LABS: Absolute Lymphocyte Count 1.48 X10^3/uL (0.83-4.51); Absolute Neutrophil Count 5.4 X10^3/uL (2.0-7.7); Basophil# 0.03 X10^3/uL; Basophil% 0.4 % (0-1); Eosinophil# 0.13 X10^3/uL; Eosinophils% 1.7 % (0-5); Hematocrit 44.3 % (37-47); Lymphocyte # 1.48 X10^3/ul (0.83-4.51); Lymphocyte % 19.4 % (19-41); Mean Corp Hgb Conc 33.9 g/dL (32-36); Mean Corpuscular Hgb 30.2 pg (27.0-32.0); Mean Corpuscular Volume 89.1 fL (81-99); Mean Platelet Vol. 9.7 fl (6.2-12.0); Monocyte# 0.52 X10^3/uL; Monocyte% 6.8 % (0-10); NRBC Flagged by Analyzer 0 % (0-5); Neutrophil # 5.43 X10^3/uL (2.7-7.7); Neutrophil % 71.4 % (47-70); Platelet Count 196 K/mm3 (150-450); RBC Distribution Width CV 13.2 % (11.6-14.6); Red Blood Count 4.97 M/mm3 (4.2-5.4); White Blood Count 7.6 K/mm3 (4.4-11.0)
[2023-10-06 09:30] LABS: Prothrombin Time (Protime)PT. 12.9 SECONDS (11.7-14.9)
[2023-10-06 09:31] LABS: Partial Thromboplast Time 28.5 Seconds (24.1-36.2)
[2023-10-06] MEDS: Ondansetron 4 MG/2 ML Vial IV (09:32)
[2023-10-06] MEDS: Morphine 4 MG/ML Syringe IV (09:33)
[2023-10-06 09:39] LABS: AST(SGOT) 17 U/L (15-37); Alanine Aminotransfer ALT/SGPT 18 U/L (13-56); Albumin, Serum 2.9 g/dL (3.2-5.0); Alkaline Phosphatase 92 U/L (45-117); Anion Gap 5 (5-15); BUN 14 mg/dL (7-18); BUN/Creat Ratio 17.2 RATIO (10-20); Bilirubin, Direct 0.07 mg/dL (0.00-0.30); Calcium,Total 9.4 mg/dL (8.5-10.1); Chloride 104 mmol/L (98-107); Creatinine, Serum 0.81 mg/dL (0.55-1.02); EST Glomerular Filtration Rate 82 mL/min (>60); Est Glom Filt Rate - Afr Amer 99 mL/min (>60); Estimated Creatinine Clearance 100.26 ml/min; Globulin 4.1 g/dL (2.2-4.2); Glucose 328 mg/dL (74-106); Potassium 4.4 mmol/L (3.5-5.1); Sodium Level 135 mmol/L (136-145)
[2023-10-06 10:00] LABS: Lactic Acid 1.6 mmol/L (0.4-1.9)
[2023-10-06 12:18] VITALS: BP 148/68; PULSE 82; RESP 16; O2SAT 98
--- NOTE | 2023-10-06 13:08 | EX.PCM.CON.S ---
Assessment & Plan Assessment/Plan (1) Blue toe syndrome of left lower extremity: PLAN: Plan Exam and imaging findings are consistent with atheroembolic event to the L 1st toe likely from the L SFA atherosclerosis. At this time, no indication for urgent intervention. It is reassuring that she has not had any skin compromise or progressive discoloration over the last few weeks. I discussed with the patient that with blue toe syndrome, the blood vessel within the toe which has been affected is too small to directly address. May consider L SFA intervention on an outpatient basis. Her symptoms will hopefully improve with time as collateral vessels develop. I advise continued maximum medical therapy with DAPT and statin. I advise addition of pletal and nitro ointment to see if this can provide improved pain control. Will plan to keep her appointment in the office next week as scheduled for ongoing management. She was agreeable with this plan. HPI Consult Data Date of Consult: 10/06/23 HPI Narrative HPI Narrative: EZIO CHING, is a 43 F who presents to the [facility] ER today with ongoing pain in her L 1st toe/forefoot. Her L 1st toe also has cyanotic discoloration. She was in the ER for the same complaint about 1 week ago. CTA was obtained which showed L SFA with a short-distance stenosis and otherwise unremarkable. It was felt that her symptoms were likely due to atheroembolic event. She was started on ASA and Plavix and discharged with planned outpatient follow-up in our office. Today, she reports the pain simply has not gotten any better. She is having difficulty working and does not want to walk due to the pain. The discoloration has not gotten any worse. She has not developed any wounds. No other toes appear affected. Thinking back, she does report she has noticed some calf cramping with walking for the last few months, this has not acutely worsened. No history of prior vascular interventions. Arterial studies were obtained which showed L ALOK 0.82 with triphasic waveforms, she did not allow them to obtain digit waveforms. She is diabetic. She does smoke about 1/2 ppd. She has been taking ASA, Plavix, and statin as prescribed. [facility] Medical History Physical exam, pre-employment Acute respiratory failure with hypoxemia Community acquired pneumonia due to methicillin resistant Staphylococcus aureus (MRSA) Chest pain Diabetes HTN (hypertension) Lupus Leaky heart valve Cellulitis of foot, right Anxiety Home Medications ?Medication ?Instructions ?Recorded ?Last Taken ?Type insulin glargine 100 unit/mL (3 30 unit SQ QHS BLOOD SUGARS 04/29/17 10/05/23 History mL) subcutaneous pen empagliflozin 10 mg tablet 10 mg PO DAILY BLOOD SUGARS 07/07/22 10/05/23 History (Jardiance) linagliptin 5 mg tablet (Tradjenta) 5 mg PO DAILY BLOOD SUGARS 10/15/22 10/05/23 History gabapentin 300 mg capsule 300 mg PO TID NEUROPATHY 05/11/23 Unknown History albuterol sulfate 90 mcg/actuation 2 puff inhalation Q4H PRN 07/26/23 Unknown Rx aerosol inhaler (Ventolin HFA) SHORTNESS OF BREATH/WHEEZING #18 grams tiotropium 2.5 mcg-olodaterol 2.5 2 inh inhalation DAILY COPD #3 ea 07/26/23 10/05/23 Rx mcg/actuation mist for inhalation (Stiolto Respimat) atorvastatin 40 mg tablet 40 mg PO DAILY CHOLESTEROL #30 tabs 09/29/23 10/05/23 Rx clopidogrel 75 mg tablet (Plavix) 75 mg PO DAILY BLOOD THINNER #30 09/29/23 10/05/23 Rx tabs metoprolol succinate 25 mg 25 mg PO DAILY BLOOD PRESSURE 09/29/23 10/05/23 History tablet,extended release 24 hr cilostazol 100 mg tablet 100 mg PO BID #60 tabs 10/06/23 Unknown Rx hydrocodone-acetaminophen 5-325mg 1 tab PO Q6H PRN PRN Pain 3 days 10/06/23 Unknown Rx 5mg-325mg #12 TABLETS ipratropium 0.5 mg-albuterol 3 mg 3 ml inhalation Q4H PRN SHORTNESS 10/06/23 Unknown History (2.5 mg base)/3 mL nebulization OF BREATH/WHEEZING soln nitroglycerin 2 % transdermal 0.5 inch transdermal BID PRN pain 10/06/23 Unknown Rx ointment #60 grams Allergy/AdvReac Type Severity Reaction Status Date / Time cetirizine HCl (From Zyrtec) Allergy Hives Verified 10/06/23 08:19 prochlorperazine edisylate Allergy Hives Verified 10/06/23 08:19 (From Compazine) prochlorperazine maleate Allergy Hives Verified 10/06/23 08:19 (From Compazine) acetaminophen (From Percocet) AdvReac Nausea/Vom/ Verified 10/06/23 08:19 Diarrhea oxycodone (From Percocet) AdvReac Nausea/Vom/ Verified 10/06/23 08:19 Diarrhea Family History Mother Diabetes Hypertension Father Diabetes Surgical History S/P laparoscopic cholecystectomy Social History Smoking Status: Current every day smoker tobacco type: cigarettes alcohol intake: never Physical Exam Const alert, oriented x3 and no apparent distress General Appearance: cooperative HEENT normocephalic, head/scalp atraumatic, hearing grossly normal bilaterally, external ears normal and external nose normal Head and Scalp: normal to inspection and normocephalic Eyes EOMs intact bilaterally General Eye: normal appearance of both eyes Neck General: normal visual inspection and trachea midline Resp normal respiratory effort, normal air movement, no retractions and no use of accessory muscles Effort and Inspection: able to speak in complete sentences; Negative for labored, grunting, stridor or audible wheezes Cardio regular rate and regular rhythm Extremity Extremity Narrative: L foot with palpable pedal pulses, warm and pink with the exception of the L 1st toe which has cyanotic discoloration on the plantar surface. No wounds. Skin no rashes or lesions noted and no wounds Neuro oriented x3, CN's II-XII intact bilaterally, moves all extremities and no focal motor deficits Speech: speech normal Psych mental status grossly normal Appearance: grossly normal Attitude: calm and engaged Activity / Motor Behavior: appropriate eye contact Speech: normal speech Mood & Affect: euthymic mood Judgement: judgement good Lab / Micro Data 10/06/23 09:15 10/06/23 09:15 Labs: Laboratory Results - last 24 hr 10/06/23 09:15: WBC 7.6, RBC 4.97, Hgb 15.0, Hct 44.3, MCV 89.1, MCH 30.2, MCHC 33.9, RDW Std Deviation 43.0, RDW Coeff of Sriram 13.2, Plt Count 196, MPV 9.7, Immature Gran % (Auto) 0.300, Neut % (Auto) 71.4 H, Lymph % (Auto) 19.4, [place] % (Auto) 6.8, Eos % (Auto) 1.7, Baso % (Auto) 0.4, Absolute Neuts (auto) 5.4, Absolute Lymphs (auto) 1.48, Nucleated RBC % 0, PT 12.9, INR 1.0, APTT 28.5, Sodium 135 L, Potassium 4.4, Chloride 104, Carbon Dioxide 26.0, Anion Gap 5, BUN 14, Creatinine 0.81, Estim Creat Clear Calc 100.26, Est GFR (MDRD) Af Amer 99, Est GFR (MDRD) Non-Af 82, BUN/Creatinine Ratio 17.2, Glucose 328 H, Lactic Acid 1.6, Calcium 9.4, Total Bilirubin 0.20, Direct Bilirubin 0.07, AST 17, ALT 18, Alkaline Phosphatase 92, Total Protein 7.0, Albumin 2.9 L, Globulin 4.1 Imaging Radiology Impression Foot X-Ray 10/06/23 09:04 IMPRESSION: Soft tissue swelling overlying the great toe. Electronically Signed: Jamel Zapata MD at 10:31 EDT ,
[2023-10-06 13:43] VITALS: BP 158/82; PULSE 82; RESP 14; TEMP 36.8; O2SAT 99
== END 2023-10-06 13:52 | disposition home or self-care (01) ==
PROVIDERS: Emergency Provider Emergency Medicine; PCP Family Medicine; Visit Provider Emergency Medicine
DX: I75.022 Atheroembolism of left lower extremity (principal); E11.9 Type 2 diabetes mellitus without complications; Z79.4 Long term (current) use of insulin; I10 Essential (primary) hypertension; F17.210 Nicotine dependence, cigarettes, uncomplicated; Z79.02 Long term (current) use of antithrombotics/antiplatelets; Z79.899 Other long term (current) drug therapy
CPT/HCPCS: 73630; 80048; 80076; 83605; 85025; 85610; 85730; 93922; 96374; 96375; 99283; J7030; A4216; J2405

== ENCOUNTER 2023-10-24 23:55 | Emergency (ER) | payer MEDICAID, SELFPAY ==
[2023-10-24 23:55] VITALS: BP 218/101; PULSE 99; RESP 16; TEMP 36.1; O2SAT 96; BMI 37.5
[2023-10-25] MEDS: Tetracaine 0.5% Ophthalmic Bottle 1 DRP RIGHT EYE (00:51)
[2023-10-25] MEDS: HYDROcodone Bitartrate/Apap 5/325 Tablet PO (00:51)
[2023-10-25] MEDS: Fluorescein 1 MG STRIP 1 STRIP RIGHT EYE (00:52)
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
[2023-10-25] MEDS: Ciprofloxacin 0.3% 2.5ml Bottle 2 DRP RIGHT EYE (02:00)
[2023-10-25 02:02] VITALS: BP 139/78; PULSE 81; RESP 16; TEMP 36.4; O2SAT 99
== END 2023-10-25 02:05 | disposition home or self-care (01) ==
PROVIDERS: Emergency Provider Emergency Medicine; PCP Family Medicine; Visit Provider Emergency Medicine
DX: T26.01XA Burn of right eyelid and periocular area, initial encounter (principal); E11.9 Type 2 diabetes mellitus without complications; Z79.4 Long term (current) use of insulin; S05.01XA Injury of conjunctiva and corneal abrasion without foreign body, right eye, initial encounter; T31.0 Burns involving less than 10% of body surface; X08.8XXA Exposure to other specified smoke, fire and flames, initial encounter; I10 Essential (primary) hypertension; E03.9 Hypothyroidism, unspecified; F17.210 Nicotine dependence, cigarettes, uncomplicated; Z79.84 Long term (current) use of oral hypoglycemic drugs; Z79.899 Other long term (current) drug therapy; Z79.02 Long term (current) use of antithrombotics/antiplatelets
CPT/HCPCS: 99282

== ENCOUNTER 2024-01-07 18:49 | Emergency (ER) | payer MEDICAID, SELFPAY ==
[2024-01-07 18:51] VITALS: BP 134/83; PULSE 86; RESP 18; TEMP 36.3; O2SAT 96; BMI 35.2
--- NOTE | 2024-01-07 18:57 | EX.ED.GENINJ ---
HPI History of Present Illness Chief Complaint: Other, Pain/Inj PFSH PFSH Medical History Hypothyroidism Kidney stones CPAP (continuous positive airway pressure) dependence Sleep apnea Smoker DVT (deep venous thrombosis) Physical exam, pre-employment Acute respiratory failure with hypoxemia Community acquired pneumonia due to methicillin resistant Staphylococcus aureus (MRSA) Chest pain Diabetes HTN (hypertension) Lupus Leaky heart valve Cellulitis of foot, right Anxiety Home Medications ?Medication ?Instructions ?Recorded ?Last Taken ?Type insulin glargine 100 unit/mL (3 30 unit SQ QHS BLOOD SUGARS 04/29/17 10/05/23 History mL) subcutaneous pen empagliflozin 10 mg tablet 10 mg PO DAILY BLOOD SUGARS 07/07/22 10/05/23 History (Jardiance) linagliptin 5 mg tablet (Tradjenta) 5 mg PO DAILY BLOOD SUGARS 10/15/22 10/05/23 History albuterol sulfate 90 mcg/actuation 2 puff inhalation Q4H PRN 07/26/23 Unknown Rx aerosol inhaler (Ventolin HFA) SHORTNESS OF BREATH/WHEEZING #18 grams tiotropium 2.5 mcg-olodaterol 2.5 2 inh inhalation DAILY COPD #3 ea 07/26/23 10/05/23 Rx mcg/actuation mist for inhalation (Stiolto Respimat) atorvastatin 40 mg tablet 40 mg PO DAILY CHOLESTEROL #30 tabs 09/29/23 10/05/23 Rx clopidogrel 75 mg tablet (Plavix) 75 mg PO DAILY BLOOD THINNER #30 09/29/23 10/05/23 Rx tabs metoprolol succinate 25 mg 25 mg PO DAILY BLOOD PRESSURE 09/29/23 10/05/23 History tablet,extended release 24 hr cilostazol 100 mg tablet 100 mg PO BID #60 tabs 10/06/23 Unknown Rx ipratropium 0.5 mg-albuterol 3 mg 3 ml inhalation Q4H PRN SHORTNESS 10/06/23 Unknown History (2.5 mg base)/3 mL nebulization OF BREATH/WHEEZING soln nitroglycerin 2 % transdermal 0.5 inch transdermal BID PRN pain 10/06/23 Unknown Rx ointment #60 grams ciprofloxacin HCl 0.3 % eye drops 2 drp RIGHT EYE 4X/DAY 7 days #10 10/25/23 Unknown Rx mL hydrocodone-acetaminophen 5-325mg 1 tab PO Q6H PRN PRN Pain 3 days 01/07/24 Unknown Rx 5mg-325mg #10 TABLETS pregabalin 25 mg capsule (Lyrica) 25 mg PO TID #30 caps 01/07/24 Unknown Rx Allergy/AdvReac Type Severity Reaction Status Date / Time cetirizine HCl (From Zyrtec) Allergy Hives Verified 01/07/24 18:50 prochlorperazine edisylate Allergy Hives Verified 01/07/24 18:50 (From Compazine) prochlorperazine maleate Allergy Hives Verified 01/07/24 18:50 (From Compazine) acetaminophen (From Percocet) AdvReac Nausea/Vom/ Verified 01/07/24 18:50 Diarrhea oxycodone (From Percocet) AdvReac Nausea/Vom/ Verified 01/07/24 18:50 Diarrhea Family History Mother Diabetes Hypertension Father Diabetes Surgical History History of cholecystectomy S/P laparoscopic cholecystectomy Social History Smoking Status: Current every day smoker tobacco type: cigarettes alcohol intake: never EXAM Physical Exam Const Vital Signs: 01/07/24 18:51 01/07/24 19:28 Temperature 97.3 F L Temperature Source Temporal Pulse Rate 86 Respiratory Rate 18 Respiratory Effort Normal Non-Labored Respiratory Pattern Normal Blood Pressure 134/83 H Blood Pressure Mean 100 Pulse Ox 96 Oxygen Delivery Method Room Air MDM MDM MDM Narrative Medical decision making narrative: HISTORY OF PRESENT ILLNESS: 43-year-old female presents with chronic extremity pain/numbness. Notes she was recently prescribed fibromyalgia by pain has been getting worse. Denies any back pain. Patient denies any saddle anesthesia, urinary retention, bowel or bladder incontinence, lower extremity weakness, fever or IV drug use, no recent spinal manipulation or surgery, no recent urinary catheterization. No severe pain bilateral lower extremities and numbness in bilateral feet. Patient denies active cancer, being bedridden for greater than 3 days, denies unilateral leg swelling, denies any varicose veins, denies any calf tenderness, denies tenderness along deep venous system. Denies major surgery within 12 weeks, recent paralysis, previous DVT. REVIEW OF SYSTEMS: Pertinent positives: Leg pain, numbness Pertinent negatives: Weakness, back pain PHYSICAL EXAM: Nursing triage notes reviewed, Vital signs reviewed Constitutional: please see mdm HENT: MMM Eyes: Pupils equal round and reactive to light, Extraocular muscles intact Neck: No stridor, no JVD, full neck ROM Lungs: Clear to auscultation, No wheezing or rales. No increased work of breathing, no conversational dyspnea, no accessory muscle use, no nasal flaring. No respiratory distress noted Heart: Regular rate and rhythm, No murmurs, No rubs and No gallops, 2+ distal pulses (radial, femoral, posterior tibial) in all extremities Abdomen: Soft, there is no tenderness, rigidity, rebound or guarding, no obvious peritoneal signs, no palpable pulsatile abdominal masses, no auscultated abdominal bruit : No CVAT Back: No midline step-offs deformities noted to the thoracic lumbar spine. Extremities: No edema, diffuse TTP throughout bilateral lower extremities Neuro: Intact sensation L1-S1 dermatomal distributions. Intact 5/5 strength in hip flexion (T12-L3). Knee extension (L2-L4). Ankle dorsiflexion (L4-L5). Ankle plantar flexion (S1). Great toe extension (L5). 2+ patellar and Achilles DTRs. Skin: No rash or lesions noted MEDICAL DECISION MAKING: Chief Complaint: Leg numbness External records reviewed: Prior ALOK study reviewed Factors affecting care: history of blue toe syndrome [facility] Narrative: The patient was hemodynamically stable, afebrile, nontoxic-appearing. Exam without evidence of septic arthritis, arterial occlusion, DVT, compartment syndrome, fracture, dislocation, quadriceps tendon rupture. Given the patient history of diabetes especially suffer from diabetic neuropathy. Given the chronic nature of her symptoms and lack of physical exam findings suggest an acute life or limb threatening etiology she is appropriate discharge home will change gabapentin to Lyrica and give narcotic pain medications empirically for symptom control. The patient and/or family, caregivers express understanding. The patient and/or family, caregivers agrees with the plan. Shared decision making: I will have a discussion with the patient and or visitors regarding risk/benefits of further testing or admission. They will be made aware of of the risk/benefits inherent in this decision they will be given the opportunity to voice understanding. Total critical care time today provided was at least 0 minutes. This excludes separately billable procedures. Critical care time (if documented) is secondary to the patient having high probability of clinically significant/life threatening deterioration in the patient's condition which required my urgent intervention. Impression: 1. Chronic leg pain 2. History of type 2 diabetes 3. Diabetic neuropathy Dispo: Discharge home This note was generated with e[employer]ono dictation software. It may contain incorrect words, spelling, and punctuation that were not noted in review of the chart prior to signing. Discharge Plan Triage Chief Complaint: Other, Pain/Inj ED Provider: Truong Epstein Dx/Rx/DC Orders Clinical Impression: Diabetic neuropathy, Leg pain Instructions: Diabetic Neuropathy Prescriptions: New hydrocodone-acetaminophen 5-325 mg tablet 1 tab PO Q6H PRN PRN (Reason: Pain) 3 Days Qty: 10 0RF pregabalin [Lyrica] 25 mg capsule 25 mg PO TID Qty: 30 0RF Discontinued hydrocodone-acetaminophen 5-325 mg tablet 1 tab PO Q6H PRN (Reason: pain) 3 Days Qty: 12 0RF No Action Jardiance 10 mg tablet 10 mg PO DAILY Tradjenta 5 mg tablet 5 mg PO DAILY albuterol sulfate [Ventolin HFA] 90 mcg/actuation HFA aerosol inhaler 2 puff inhalation Q4H PRN (Reason: SHORTNESS OF BREATH/WHEEZING ) Qty: 18 6RF Stiolto Respimat 2.5-2.5 mcg/actuation mist 2 inh inhalation DAILY Qty: 3 3RF insulin glargine 100 UNIT/ML insulin pen 30 unit SQ QHS metoprolol succinate 25 mg tablet extended release 24 hr 25 mg PO DAILY clopidogrel [Plavix] 75 mg tablet 75 mg PO DAILY Qty: 30 0RF atorvastatin 40 mg tablet 40 mg PO DAILY Qty: 30 0RF ciprofloxacin HCl 0.3 % drops 2 drp RIGHT EYE 4X/DAY 7 Days Qty: 10 0RF ipratropium-albuterol 0.5 mg-3 mg(2.5 mg base)/3 mL solution for nebulization 3 ml inhalation Q4H PRN (Reason: SHORTNESS OF BREATH/WHEEZING) cilostazol 100 mg tablet 100 mg PO BID Qty: 60 0RF nitroglycerin 2 % ointment 0.5 inch transdermal BID PRN (Reason: pain) Qty: 60 0RF Rx Instructions: administer 2 doses/day (approx. 6 hrs apart); remove for 10-12 hrs per 24 hours Stand Alone Forms: ED Work / School Excuse Primary Care Provider: Eldon Hernandez Referrals: Eldon Hernandez MD [Primary Care Provider] - Activity Restrictions/Additional Instructions: Thank you for trusting us with your care today! Please take Tylenol (2 pills, 650 mg), ibuprofen (2 pills, 400 mg) every 6 hours as needed for pain and fever control. Please discontinue taking gabapentin and start taking trial of Lyrica as a substitute. Please take Vicodin only sparingly and as a breakthrough medicine if Tylenol ibuprofen and Lyrica do not improve your symptoms. Please return to the emergency department if your symptoms change or worsen. Please follow with your primary care physician for further outpatient evaluation and management. Print Language: Hong Konger Disposition Disposition: Home, Self Care Discharge Date/Time: 01/07/24 19:34
[2024-01-07] MEDS: Ibuprofen 200 MG Tablet 400 MG PO (19:32)
[2024-01-07] MEDS: HYDROcodone Bitartrate/Apap 5/325 Tablet PO (19:32)
== END 2024-01-07 19:34 | disposition home or self-care (01) ==
PROVIDERS: Emergency Provider Emergency Medicine; PCP Family Medicine; Visit Provider Emergency Medicine
DX: E11.40 Type 2 diabetes mellitus with diabetic neuropathy, unspecified (principal); Z79.4 Long term (current) use of insulin; I10 Essential (primary) hypertension; G89.29 Other chronic pain; F17.210 Nicotine dependence, cigarettes, uncomplicated; Z79.02 Long term (current) use of antithrombotics/antiplatelets; Z79.84 Long term (current) use of oral hypoglycemic drugs; Z79.899 Other long term (current) drug therapy
CPT/HCPCS: 99283

== ENCOUNTER 2024-03-11 00:21 | Emergency (ER) | payer MEDICAID, SELFPAY ==
[2024-03-11 00:21] VITALS: TEMP 36.2; BMI 37.1
[2024-03-11 00:24] VITALS: BP 164/83; PULSE 79; RESP 16; TEMP 36.2; O2SAT 99
--- NOTE | 2024-03-11 00:35 | ED.VIS.LOWEX ---
HPI History of Present Illness HPI Narrative: Patient presents with redness and swelling to her left great toe that became worse today. Patient states she was recently prescribed an antibiotic for this. Patient states she completed the entire course of the antibiotics. Patient states she has an appointment with podiatry on 04/05/2024. Patient states that she noted some redness and swelling tonight. Patient also noted some drainage from around her toenail. Patient denies any fevers but admits to some subjective chills. Patient denies any new paresthesias or weakness. Patient states she has a history of diabetic neuropathy and has some tingling to her entire forefoot. Chief Complaint: Lower Extremity Injury Onset/Context/Timing Onset: Today Context: Gradual Onset Timing: Continuous Quality of Pain: Throbbing Location: Left great toe Worsened by: Nothing Relieved by: Nothing Associated Symptoms Associated Symptoms: Positive for Parasthesia (Chronic); Negative for Weakness or Loss of Funtion PFSH PFSH Medical History Hypothyroidism Kidney stones CPAP (continuous positive airway pressure) dependence Sleep apnea Smoker DVT (deep venous thrombosis) Physical exam, pre-employment Acute respiratory failure with hypoxemia Community acquired pneumonia due to methicillin resistant Staphylococcus aureus (MRSA) Chest pain Diabetes HTN (hypertension) Lupus Leaky heart valve Cellulitis of foot, right Anxiety Home Medications ?Medication ?Instructions ?Recorded ?Last Taken ?Type insulin glargine 100 unit/mL (3 30 unit SQ QHS BLOOD SUGARS 04/29/17 10/05/23 History mL) subcutaneous pen empagliflozin 10 mg tablet 10 mg PO DAILY BLOOD SUGARS 07/07/22 10/05/23 History (Jardiance) linagliptin 5 mg tablet (Tradjenta) 5 mg PO DAILY BLOOD SUGARS 10/15/22 10/05/23 History albuterol sulfate 90 mcg/actuation 2 puff inhalation Q4H PRN 07/26/23 Unknown Rx aerosol inhaler (Ventolin HFA) SHORTNESS OF BREATH/WHEEZING #18 grams tiotropium 2.5 mcg-olodaterol 2.5 2 inh inhalation DAILY COPD #3 ea 07/26/23 10/05/23 Rx mcg/actuation mist for inhalation (Stiolto Respimat) atorvastatin 40 mg tablet 40 mg PO DAILY CHOLESTEROL #30 tabs 09/29/23 10/05/23 Rx clopidogrel 75 mg tablet (Plavix) 75 mg PO DAILY BLOOD THINNER #30 09/29/23 10/05/23 Rx tabs metoprolol succinate 25 mg 25 mg PO DAILY BLOOD PRESSURE 09/29/23 10/05/23 History tablet,extended release 24 hr cilostazol 100 mg tablet 100 mg PO BID #60 tabs 10/06/23 Unknown Rx ipratropium 0.5 mg-albuterol 3 mg 3 ml inhalation Q4H PRN SHORTNESS 10/06/23 Unknown History (2.5 mg base)/3 mL nebulization OF BREATH/WHEEZING soln nitroglycerin 2 % transdermal 0.5 inch transdermal BID PRN pain 10/06/23 Unknown Rx ointment #60 grams ciprofloxacin HCl 0.3 % eye drops 2 drp RIGHT EYE 4X/DAY 7 days #10 10/25/23 Unknown Rx mL hydrocodone-acetaminophen 5-325mg 1 tab PO Q6H PRN PRN Pain 3 days 01/07/24 Unknown Rx 5mg-325mg #10 TABLETS pregabalin 25 mg capsule (Lyrica) 25 mg PO TID #30 caps 01/07/24 Unknown Rx amoxicillin 875 mg-potassium 875 mg PO Q12H #20 TABLETS 03/11/24 Unknown Rx clavulanate 125 mg tablet Allergy/AdvReac Type Severity Reaction Status Date / Time cetirizine HCl (From Zyrtec) Allergy Hives Verified 03/11/24 00:25 prochlorperazine edisylate Allergy Hives Verified 03/11/24 00:25 (From Compazine) prochlorperazine maleate Allergy Hives Verified 03/11/24 00:25 (From Compazine) acetaminophen (From Percocet) AdvReac Nausea/Vom/ Verified 03/11/24 00:25 Diarrhea oxycodone (From Percocet) AdvReac Nausea/Vom/ Verified 03/11/24 00:25 Diarrhea Family History Mother Diabetes Hypertension Father Diabetes Surgical History History of cholecystectomy S/P laparoscopic cholecystectomy Social History Smoking Status: Current every day smoker tobacco type: cigarettes alcohol intake: never ROS ROS ED Constitutional Constitutional ED: Reports chills; Denies fever(s) Eyes Eyes: Denies blurry vision or change in vision ENT ENT ED: Denies rhinorrhea or sore throat Cardiovascular Cardiovascular: Denies chest pain or palpitations Respiratory/Chest Respiratory/Chest: Denies cough or dyspnea Gastrointestinal Gastrointestinal: Denies nausea or vomiting Genitourinary Genitourinary ED: Denies dysuria or hematuria Musculoskeletal Musculoskeletal: Denies back pain or neck pain Integumentary Denies abscess or rash Neurologic Neurologic: Denies headache(s) or weakness Allergic/Immunologic Allergic/Immunologic ED: Denies mouth swelling or urticaria EXAM Physical Exam Const Vital Signs: 03/11/24 00:21 03/11/24 00:24 Temperature 97.1 F L 97.1 F L Temperature Source Temporal Temporal Pulse Rate 79 Respiratory Rate 16 Blood Pressure 164/83 H Blood Pressure Mean 110 Pulse Ox 99 Oxygen Delivery Method Room Air Positive well nourished and well developed General Appearance ED: well developed and NAD HEENT Reports moist mucous membranes Neck full ROM and supple Extremity Extremity Narrative: There is tenderness with mild erythema over the distal phalanx of the left great toe. There is no bony crepitance or step-off. Sensation was intact to light touch in all digits. Capillary refill was less than 2 seconds in all digits. Range of motion was limited in all motions of the left great toe secondary to pain. There is no discharge or drainage noted. There is no fluctuance. Neuro oriented x3, CN's II-XII intact bilaterally, moves all extremities and no sensory deficits noted Sensorium / Orientation: alert Motor Exam: strength 5/5 throughout Psych mental status grossly normal MDM MDM MDM Narrative Medical decision making narrative: Smoking cessation was discussed. Patient was advised that this does appear to be an infection in her toe. Patient was given a dose of Augmentin here. Patient is given a prescription for Augmentin. Patient was instructed to keep the wound clean and dry. Patient was instructed to follow-up with her primary care physician in 5 to 7 days. Patient was also instructed to follow-up with podiatry as scheduled. Patient was instructed to return if worse in any way. Patient understood and was agreeable with the plan. All questions were answered. Discharge Plan Triage Chief Complaint: Lower Extremity Injury ED Provider: Flavio Kunz Dx/Rx/DC Orders Clinical Impression: Cellulitis of great toe of left foot, Nicotine dependence, cigarettes, uncomplicated, COPD (chronic obstructive pulmonary disease), Diabetes Instructions: ED Cellulitis Prescriptions: New amoxicillin-pot clavulanate 875-125 mg tablet 875 mg PO Q12H Qty: 20 0RF No Action Jardiance 10 mg tablet 10 mg PO DAILY Tradjenta 5 mg tablet 5 mg PO DAILY albuterol sulfate [Ventolin HFA] 90 mcg/actuation HFA aerosol inhaler 2 puff inhalation Q4H PRN (Reason: SHORTNESS OF BREATH/WHEEZING ) Qty: 18 6RF Stiolto Respimat 2.5-2.5 mcg/actuation mist 2 inh inhalation DAILY Qty: 3 3RF insulin glargine 100 UNIT/ML insulin pen 30 unit SQ QHS metoprolol succinate 25 mg tablet extended release 24 hr 25 mg PO DAILY clopidogrel [Plavix] 75 mg tablet 75 mg PO DAILY Qty: 30 0RF atorvastatin 40 mg tablet 40 mg PO DAILY Qty: 30 0RF ciprofloxacin HCl 0.3 % drops 2 drp RIGHT EYE 4X/DAY 7 Days Qty: 10 0RF hydrocodone-acetaminophen 5-325 mg tablet 1 tab PO Q6H PRN PRN (Reason: Pain) 3 Days Qty: 10 0RF pregabalin [Lyrica] 25 mg capsule 25 mg PO TID Qty: 30 0RF ipratropium-albuterol 0.5 mg-3 mg(2.5 mg base)/3 mL solution for nebulization 3 ml inhalation Q4H PRN (Reason: SHORTNESS OF BREATH/WHEEZING) cilostazol 100 mg tablet 100 mg PO BID Qty: 60 0RF nitroglycerin 2 % ointment 0.5 inch transdermal BID PRN (Reason: pain) Qty: 60 0RF Rx Instructions: administer 2 doses/day (approx. 6 hrs apart); remove for 10-12 hrs per 24 hours Primary Care Provider: Eldon Hernandez Referrals: Eldon Hernandez MD [Primary Care Provider] - Print Language: Vietnamese Disposition Disposition: Home, Self Care
[2024-03-11] MEDS: Amox/Clavulanate 875 MG Tablet PO (00:50)
[2024-03-11 00:54] VITALS: BP 152/74; PULSE 74; RESP 16; TEMP 36.2; O2SAT 99
== END 2024-03-11 00:55 | disposition home or self-care (01) ==
LOC: ED 00:43
PROVIDERS: Emergency Provider Emergency Medicine; PCP Family Medicine; Visit Provider Emergency Medicine
DX: L03.116 Cellulitis of left lower limb (principal); J44.9 Chronic obstructive pulmonary disease, unspecified; E11.40 Type 2 diabetes mellitus with diabetic neuropathy, unspecified; Z79.4 Long term (current) use of insulin; I10 Essential (primary) hypertension; F17.210 Nicotine dependence, cigarettes, uncomplicated; E03.9 Hypothyroidism, unspecified; Z79.02 Long term (current) use of antithrombotics/antiplatelets; Z79.84 Long term (current) use of oral hypoglycemic drugs; Z79.899 Other long term (current) drug therapy
CPT/HCPCS: 99283

== ENCOUNTER 2025-04-19 00:34 | Emergency (ER) | payer MEDICAID, SELFPAY ==
[2025-04-19 00:35] VITALS: BP 178/91; PULSE 81; RESP 20; TEMP 36.6; O2SAT 94; BMI 35.9
[2025-04-19 00:38] VITALS: BP 147/80; PULSE 60; RESP 16; TEMP 36.6; O2SAT 98
[2025-04-19] MEDS: Lidocaine 2% Viscous15 ML UDC 15 ML PO (00:59)
--- OUTSIDE RECORDS SUMMARY | 2025-04-19 01:02 | XMS RPT_ITS | CCD ---
Author Organization [facility] Care Team Providers Care Wheel Cleaner Name Role Phone Sonia Ortega PA-C Primary Care Provider Dr. Eldon Hernandez Primary Care Provider Dr. Gen Fleming Attending Provider Dr. Guerrero Damon Referring Provider Sonia Ortega PA-C Primary Care Provider Dr. Eldon Hernandez Primary Care Provider MD Emmanuel Joel Emergency Provider [phone] Cassie Elmore Admit Provider Dr. Cassie Elmore Attending Provider Dr. Cassie Elmore Other Provider Dr. Jakob Wong Other Provider Dr. Carmine Saul Other Provider Dr. Roly Conner Other Provider Dr. Petros Louis Other Provider Unavailab zamzam Mcintosh ANTIQUE FURNITURE RESTORER, ANTIQUE FURNITURE RESTORER-C Audra Other Provider Dr. Carmine Saul Attending Provider Dr. Gen Zarate Other Provider Dr. Elvira Mills Attending Provider Dr. Roly Conner Attending Provider Dr. Thania Dunham Attending Provider Roly, Dr. Monteiro Other Provider Jordan CHAIREZ, Sonia VelasquezJose Rafael Primary Care Provider Dr. Cassie Elmore Referring Provider [phone] Jakob Wong Attending Provider Dr. Thania Dunham Other Provider Mary, Dr. Colón Referring Provider [place], Dr. Colón Primary Care Provider Mary, Dr. Colón Referring Provider Arnaldo ANTIQUE FURNITURE RESTORER, ANTIQUE FURNITURE RESTORER-C Audra Attending Provider [phone] Mary, Dr. Colón Primary Care Provider [place], Dr. Colón Referring Provider Arnaldo ANTIQUE FURNITURE RESTORER, ANTIQUE FURNITURE RESTORER-C Audra Attending Provider [phone] JORDAN CAMPUZANO, MR Sonia HUSSEIN Primary Care Physician Jordan CHAIREZ, Sonia Hussein Primary Care Provider ESTEFANÍA WEB CONTENT COORDINATOR-MAINTENANCE WELDER, JOHN Attending Unavailab zamzam CAMPUZANO, MR Sonia HUSSEIN Primary Care Unavaila ble FISH WEB CONTENT COORDINATOR-JOHN SHARP Attending Unavailab zamzam CAMPUZANO, MR Sonia HUSSEIN Primary Care Unavaila ble Suppan WEB CONTENT COORDINATOR.MAINTENANCE WELDER, Lazara A Primary Care Provi chris Suppan WEB CONTENT COORDINATOR.MAINTENANCE WELDER, Lazara A Primary Care Provi chris Suppan WEB CONTENT COORDINATOR.MAINTENANCE WELDER, Lazara A Primary Care Provi chris Unavailable Primary Care Provider Unavailabl e JOHN HARVEY Referring Unavailable SUPPAN, LAZARA A Attending Unavailable SUPPAN, LAZARA A Primary Care Unavailable SUPPAN, LAZARA A Primary Care Unavailable TRACY AGUILLON Referring Unavailable SUPPAN, LAZARA A Primary Care Unavailable TRACY AGUILLON Attending Unavailable GUILLE ORTEGA Primary Care Unavailable DAPHNE GRESHAM Referring Unavailable HUMBERTO DAMON Attending Unavailable GUILLE ORTEGA Primary Care Unavailable SUPPAN, LAZARA A Attending Unavailable SUPPAN, LAZARA A Primary Care Unavailable ARNULFO LUX Referring Unavailable SUPPAN, LAZARA A Primary Care Unavailable ARNULFO LUX Attending Unavailable SUPPAN, LAZARA A Primary Care Unavailable SUPPAN, LAZARA A Attending Unavailable SUPPAN, LAZARA A Attending Unavailable SUPPAN, LAZARA A Primary Care Unavailable SUPPAN, LAZARA A Primary Care Unavailable ADRIENNE LOCKE Referring Unavailable SUPPAN, LAZARA A Primary Care Unavailable TRACY CELAYA Attending Unavailable HUMBERTO DAMON Referring Unavailable SUPPAN, LAZARA A Referring Unavailable SUPPAN, LAZARA A Primary Care Unavailable SAM LOCKEE C Attending Unavailable SUPPAN, LAZARA A Referring Unavailable SUPPAN, LAZARA A Primary Care Unavailable SUPPAN, LAZARA A Attending Unavailable SUPPAN, LAZARA A Primary Care Unavailable Eldon Hernandez Referring Unavailable [place] Primary Care Unavailable Audra Mcintosh NP Attending Unavailable [place] Primary Care Unavailable Flavio Kunz Attending Unavailable Allergies Allergy Classification Reported Allergen(s) Allergy Type Date of Onset Reaction(s) Facility (20 sources) Acetaminophen / oxyCODONE; Translations: [acetaminophen-oxyc odone] Drug Allergy 06-07-[address] [facility] (20 sources) Cat; Translations: [CATS] Propensity to adverse reactions 10-24-19 10 Hives, Itching [facility] (20 sources) Cetirizine; Translations: [CETIRIZINE HCL] Drug Allergy 08-23-[address] [facility] Work Phone: (20 sources) dilTIAZem; Translations: [DILTIAZEM] Drug Allergy 07-26-19 14 GI Upset, Vomiting [facility] (20 sources) Dust; Translations: [DUST] Propensity to adverse reactions 10-24-[address] [facility] (20 sources) Grass pollen; Translations: [GRASS POLLEN] Propensity to adverse reactions to drug 10-24-[address] [facility] (20 sources) Acetaminophen; Translations: [ACETAMINOPHEN] Drug Allergy 08-26-[address] [facility] (14 sources) oxyCODONE Drug Allergy 08-26-19 22 Nausea/Vom/Melissa rrhea [facility] (15 sources) Prochlorperazine; Translations: [prochlorperazine maleate] Drug Allergy 08-26-19 [facility] (15 sources) prochlorperazine edisylate; Translations: [prochlorperazine edisylate] Allergy to substance 08-26-19 [facility] (2 sources) Codeine; Translations: [codeine] Drug Allergy unknown [facility] (2 sources) Prochlorperazine; Translations: [prochlorperazine] Drug Allergy [facility] (1 source) ALLERGIES NOT ON FILE; Translations: [ALLERGIES NOT ON FILE] Propensity to adverse reactions (disorder) [facility] Repository (1 source) Acetaminophen Drug Allergy 03-11-20 [facility] Repository (1 source) Cetirizine Drug Allergy 03-11-20 [facility] Repository (1 source) oxyCODONE Drug Allergy 03-11-20 [facility] Repository Medications Current Medications Medication Drug Class(es) Dates Sig (Normalized) Sig (Original) [id number] 200 actuat albuterol 0.09 mg/actuat metered dose inhaler (20 sources) beta2-Adrenergic Agonist Start: 07-26-2023 take 2 puff(s) by inhalation every four hours as needed for wheezing albuterol HFA (PROVENTIL HFA, VENTOLIN HFA) 90 mcg/actuation inhaler Inhale 2 Puffs as instructed every 4 hours as needed for wheezing/shortnes s of breath. 07/26/2023 Active Start: 07-07-2022 End: 07-08-2022 take 1 puff(s) by inhalation every four hours Albuterol Sulfate (Ventolin Hfa) 90 mcg/actuation HFA aerosol inhaler Active 2 PUFF INHALATION Q4H July 07, 2022 11:00pm Albuterol (Eqv-Ventolin HFA) 90 mcg/inh inhalation aerosol (2 sources) Start: 08-01-2023 Albuterol (Eqv-Ventolin HFA) 90 mcg/inh inhalation aerosol 0 Refill(s) Start Date: 08/01/23 Status: Ordered albuterol 0.833 mg/ml / ipratropium bromide 0.167 mg/ml inhalation solution (5 sources) Anticholinergi c, beta2-Adrenerg ic Agonist Start: 08-01-2023 take 1 dose by inhalation four times daily as needed for wheezing albuterol-ipratropi um 2.5 mg-0.5 mg/3 mL inhalation solution Dose = 3 mL, Inhalation, QID, PRN as needed for shortness of breath or wheezing, # 1,080 mL, 0 Refill(s) Start Date: 08/01/23 Status: Ordered Start: 05-11-2023 take 1 mL by inhalat ion every four hours as needed Ipratropium-Albuterol Active 3 ML INHALATION EVERY 4 HOURS NEEDED 180 May 11, 2023 12:00am amoxicillin 875 mg / clavulanate 125 mg oral tablet (3 sources) Penicillin-class Antibacterial Start: 09-01-2023 End: 09-11-2023 take 1 tablet by mouth every twelve hours amoxicillin-clavulanate 875 mg-125 mg oral tablet 1 tab(s), Oral, q12h, # 20 tab(s), 0 Refill(s), 97 Start Date: 09/01/23 Stop Date: 09/11/23 Status: Ordered Start: 08-30-2023 End: 09-09-2023 take 1 tablet by mouth twice daily amoxicillin-clavulanate potassium (AUGMENTIN) 875-125 mg per tablet Indications: Acute non-recurrent maxillary sinusitis Take 1 tablet by mouth two times a day for 10 days. 20 tablet 0 08/30/2023 09/09/2023 Active atorvastatin 20 mg oral tablet (17 sources) HMG-CoA Reductase Inhibitor Start: 02-27-2024 End: 02-26-2025 take 1 tablet by mouth once daily atorvastatin (LIPITOR) 20 mg tablet Indications: Type 2 diabetes mellitus with hyperglycemia, with long-term current use of insulin (HCC) Take 1 tablet by mouth once daily. 90 tablet 3 02/27/2024 02/26/2025 Active azithromycin 250 mg oral tablet (1 source) Macrolide Antimicrobial Start: 05-29-2024 End: 06-03-2024 azithromycin (ZITHROMAX Z-ROSALES) 250 mg tablet Indications: Bacterial pneumonia Take 2 tablets day one, then, 1 tablet daily until gone. 6 tablet 05/29/2024 06/03/2024 Active benzonatate 200 mg oral capsule (20 sources) Non-narcotic Antitussive Start: 04-30-2023 take 200 mg by mouth three times daily Benzonatate Active 200 MG PO THREE TIMES A DAY April 30, 2023 12:00am Start: 04-12-2022 End: 06-28-2022 take 100 mg by mouth three times daily Benzonatate Discontinued 100 MG PO THREE TIMES A DAY April 12, 2022 12:00am May 13, 2022 9:32am Comment on above: Take by mouth. Blood-Glucose Meter,Continuous (FREESTYLE ANA 3 READER) misc (9 sources) Start: 5 Blood-Glucose Meter,Continuous (FREESTYLE ANA 3 READER) misc Use to check blood sugar at least four (4) times daily. 1 Each 05/29/2024 Active Blood-Glucose Sensor (FREESTYLE ANA 3 SENSOR) natalia (9 sources) Start: 5 Blood-Glucose Sensor (FREESTYLE ANA 3 SENSOR) natalia Apply new sensor every fourteen (14) days to upper arm. 6 Each 4 05/29/2024 Active carvedilol 3.125 mg oral tablet (4 sources) alpha-Adrenergic Lars, beta-Adrenergic Lars Start: 0 take 6.25 mg by mouth once daily Carvedilol Active 6.25 MG PO DAILY October 14, 2019 11:00pm cephalexin 500 mg oral capsule (20 sources) Cephalosporin Antibacterial Start: 4 End: 4 take 1 capsule by mouth twice daily cephALEXin (KEFLEX) 500 mg capsule Indications: Ingrown toenail Take 1 capsule by mouth two times a day for 5 days. 10 capsule 02/27/2024 03/03/2024 Active Start: 04-12-2022 End: 05-13-2022 take 500 mg by mouth three times daily Cephalexin Discontinued 500 MG PO THREE TIMES A DAY April 12, 2022 12:00am May 13, 2022 9:31am Start: 06-10-2021 take 500 mg by mouth every six hours Cephalexin Active 500 MG PO EVERY 6 HOURS June 10, 2021 12:00am Start: 06-26-2018 End: 07-06-2018 take 500 mg by mouth every six hours Cephalexin Discontinued 500 MG PO EVERY 6 HOURS June 26, 2018 12:00am July 05, 2018 11:07pm Comment on above: TAKE 1 CAPSULE BY [facility] THREE TIMES DAILY UNTIL GONE clotrimazole 10 mg oral lozenge (4 sources) Azole Antifungal Start: 2 End: 3 clotrimazole (MYCELEX) 10 mg radha Use 1 Radha as instructed five times daily for 14 days. 70 tablet 0 04/15/2022 04/29/2022 Active Comment on above: Use 1 Radha as inst ructed five times daily for 14 days. doxycycline hyclate 100 mg oral capsule (10 sources) Tetracycline-class Drug Start: 5 End: 5 take 1 capsule by mouth twice daily doxycycline hyclate (VIBRAMYCIN) 100 mg capsule Indications: Boil of buttock , Pneumonia of right lung due to infectious organism, unspecified part of lung Take 1 capsule by mouth two times a day for 10 days. 20 capsule 11/05/2024 11/15/2024 Active Start: 05-29-2024 End: 06-08-2024 take 1 capsule by mouth twice daily doxycycline hyclate (VIBRAMYCIN) 100 mg capsule Indications: Bacterial pneumonia Take 1 capsule (100 mg) by mouth two times a day for 10 days. 20 capsule 05/29/2024 06/08/2024 Active Start: 05-16-2023 take 100 mg by mouth twice daily Doxycycline Hyclate Active 100 MG PO TWICE A DAY May 16, 2023 12:00am Start: 10-15-2021 End: 10-22-2021 take 1 tablet by mouth twice daily doxycycline monohydrate 100 mg tablet Take 1 tablet by mouth twice daily for 7 days. 14 tablet 0 10/15/2021 10/22/2021 Active Start: 06-16-2021 take 100 mg by mouth twice daily Doxycycline Hyclate Active 100 MG PO TWICE A DAY 14 June 16, 2021 12:00am Comment on above: Take 1 tablet by [facility] twice daily for 7 days. DULoxetine 60 mg delayed release oral capsule (20 sources) Serotonin and Norepinephrine Reuptake Inhibitor Start: 11-06-19 25 End: 05-04-19 take 1 capsule by mouth once daily DULoxetine (CYMBALTA) 60 mg capsule Indications: Neuropathic pain , Fibromyalgia Take 1 capsule by mouth once daily. 90 capsule 1 11/05/2024 05/04/2025 Active Start: 06-12-2024 End: 12-09-2024 take 1 capsule by mouth once daily DULoxetine (CYMBALTA) 30 mg capsule Indications: Neuropathic pain , Fibromyalgia Take 1 capsule by mouth once daily. 90 capsule 1 06/12/2024 11/05/2024 Discontinued Start: 12-23-2023 End: 05-29-2024 take 1 capsule by mouth once daily DULoxetine (CYMBALTA) 40 mg cpDR Indications: Fibromyalgia Take 1 capsule by mouth once daily. 30 capsule 12/23/2023 05/29/2024 Discontinued (Other) Start: 12-15-2023 End: 03-14-2024 take 1 capsule by mouth once daily DULoxetine (CYMBALTA) 20 mg capsule Indications: Fibromyalgia Take 1 capsule by mouth once daily. 90 capsule 12/15/2023 12/23/2023 Discontinued empagliflozin 25 mg oral tablet (20 sources) Sodium-Glucose Cotransporter 2 Inhibitor Start: 02-24-2023 End: 11-05-2024 take 1 tablet by mouth once daily at breakfast empagliflozin (JARDIANCE) 25 mg tablet Indications: Type 2 diabetes mellitus with hyperglycemia, with long-term current use of insulin (HCC) Take 1 tablet by mouth daily with breakfast. 30 tablet 5 11/05/2024 Active Start: 05-11-2022 End: 11-14-2022 take 1 tablet by mouth once daily, then take 1 tablet by mouth once daily in the morning empagliflozin (JARDIANCE) 10 mg tablet Take 1 tablet by mouth once daily. Take 1 tablet once daily in the morning 30 tablet 06/22/2022 07/21/2022 Discontinued Comment on above: Take 1 tablet by [facility] once daily. Take 1 tablet once daily in the morning Take 1 tablet by ng[facility]ia th daily with breakfast. ergocalciferol 1.25 mg oral capsule (7 sources) Provitamin D2 Compound Start: 06-14-19 End: 06-14-19 take 1 capsule by mouth every week ergocalciferol 50,000 unit capsule (VITAMIN D2, DRISDOL) Take 1 capsule by mouth one time a week. 12 capsule 3 06/14/2024 06/14/2025 Active gabapentin 800 mg oral tablet (20 sources) Anti-epileptic Agent Start: 01-31-20 End: 12-10-19 take 1 tablet by mouth three times daily gabapentin (NEURONTIN) 800 mg tablet Take 800 mg by mouth three times a day. 08/10/2024 Active Start: 09-01-2023 End: 12-15-2023 take 2 capsules by mouth three times daily gabapentin (NEURONTIN) 300 mg capsule Indications: Fibromyalgia Take 2 capsules by mouth three times a day for 90 days. 90 capsule 2 09/01/2023 12/15/2023 Discontinued (Discontinued by Patient) Start: 05-11-2023 take 300 mg by mouth twice daily Gabapentin Active 300 MG PO TWICE A DAY May 11, 2023 12:00am Start: 02-24-2023 End: 11-28-2023 take 1 capsule by mouth three times daily gabapentin (NEURONTIN) 300 mg capsule Indications: Fibromyalgia Take 1 capsule by mouth three times a day for 90 days. 90 capsule 2 08/30/2023 09/01/2023 Discontinued ibuprofen 600 mg oral tablet (4 sources) Nonsteroidal Anti-inflammatory Drug Start: 06-10-2021 take 600 mg by mouth four times daily Ibuprofen Active 600 MG PO 4 TIMES DAILY June 10, 2021 12:00am 3 ml insulin glargine 100 unt/ml pen injector (20 sources) Insulin Analog Start: 06-12-2024 End: 12-09-2024 insulin glargine (LANTUS SOLOSTAR U-100 INSULIN) 100 unit/mL (3 mL) Indications: Type 2 diabetes mellitus with hyperglycemia, with long-term current use of insulin (HCC) Inject 50 Units subcutaneously daily at bedtime. 15 mL 5 06/12/2024 12/09/2024 Active Start: 12-23-2023 End: 06-20-2024 insulin glargine (LANTUS ABIGAIL OSTAR U-100 INSULIN) 100 unit/mL (3 mL) Indications: Type 2 diabetes mellitus with hyperglycemia, with long-term current use of insulin (HCC) Inject 40 Units subcutaneously daily at bedtime. 12 mL 5 12/23/2023 06/12/2024 Discontinued Start: 08-30-2023 End: 02-26-2024 insulin glargine (LANTUS ABIGAIL OSTAR U-100 INSULIN) 100 unit/mL (3 mL) Indications: Type 2 diabetes mellitus with hyperglycemia, with long-term current use of insulin (HCC) Inject 30 Units subcutaneously daily at bedtime. 9 mL 5 08/30/2023 12/23/2023 Discontinued Start: 08-01-2023 Lantus Solosta r Pen 100 units/mL 3 mL Pen Inject 30 Units subcutaneously daily at bedtime. Start Date: 08/01/23 Status: Ordered Start: 11-01-2022 End: 04-30-2023 insulin glargine (LANTUS ABIGAIL OSTAR U-100 INSULIN) 100 unit/mL (3 mL) Indications: Type 2 diabetes mellitus with hyperglycemia, with long-term current use of insulin (HCC) Inject 25 Units subcutaneously daily at bedtime. 5 Each 3 11/01/2022 04/30/2023 Active Start: 11-01-2022 End: 08-30-2023 insulin glargine (LANTUS ABIGAIL OSTAR U-100 INSULIN) 100 unit/mL (3 mL) Indications: Type 2 diabetes mellitus with hyperglycemia, with long-term current use of insulin (HCC) Inject 25 Units subcutaneously daily at bedtime. 5 Each 3 11/01/2022 08/30/2023 Discontinued Start: 06-01-2022 End: 11-01-2022 insulin glargine (LANTUS ABIGAIL OSTAR U-100 INSULIN) 100 unit/mL (3 mL) Indications: Type 2 diabetes mellitus with hyperglycemia, with long-term current use of insulin (HCC) Inject 30 Units subcutaneously daily at bedtime. 5 Each 3 06/01/2022 11/01/2022 Discontinued Start: 06-01-2022 End: 11-01-2022 insulin glargine (LANTUS ABIGAIL OSTAR U-100 INSULIN) 100 unit/mL (3 mL) Indications: Type 2 diabetes mellitus with hyperglycemia, with long-term current use of insulin (HCC) Inject 30 Units subcutaneously daily at bedtime. 5 Each 3 06/01/2022 11/01/2022 Discontinued Start: 01-11-2022 insulin glargi ne (LANTUS SOLOSTAR U-100 INSULIN) 100 unit/mL (3 mL) Indications: Type 2 diabetes mellitus with hyperglycemia, with long-term current use of insulin ([facility]) Inject 30 Units subcutaneously daily at bedtime. 5 Each 3 01/11/2022 Active Start: 03-27-2020 End: 04-11-2022 insulin glargine (LANTUS ABIGAIL OSTAR U-100 INSULIN) 100 unit/mL (3 mL) Indications: Type 2 diabetes mellitus with hyperglycemia, with long-term current use of insulin ([facility]) Inject 30 Units subcutaneously daily at bedtime. 5 Each 3 01/11/2022 04/11/2022 Active Start: 04-29-2017 inject 30 [IU] by mason bcutaneous injection at bedtime Insulin Glargine Active 30 UNIT SQ AT BEDTIME April 29, 2017 12:00am Comment on above: Inject 30 Units subc utaneously daily at bedtime. Inject 25 Units subc utaneously daily at bedtime. 3 ml insulin lispro 100 unt/ml pen injector (6 sources) Insulin Analog Start: insulin lispro (ADMELOG SOLOSTAR U-100 INSULIN) 100 unit/mL Inject 12 units with meals (TID) plus SS #1 (1 for 50 over 150 pre meal blood sugar) TDD 50 units 45 mL 3 07/11/2024 Active levonorgestrel 0.832024 mg/hr intrauterine system (20 sources) Progestin, Progestin-containing Intrauterine Device Start: 013 End: 032 levonorgestrel (MIRENA) 21 mcg/24 hr (8 yrs) 52 mg IUD 1 Each by INTRAUTERINE route as directed. 1 Each 09/27/2023 09/25/2031 Active Comment on above: 1 Each by INTRAUTERI NE route continuous. methocarbamol 500 mg oral tablet (11 sources) Muscle Relaxant Start: 024 End: 024 take 1 tablet by mouth three times daily as needed for pain methocarbamol (ROBAXIN) 500 mg tablet Indications: Fibromyalgia Take 1 tablet by mouth three times a day as needed (Pain). 90 tablet 1 12/15/2023 02/13/2024 Active 24 hr metoprolol succinate 25 mg extended release oral tablet (3 sources) beta-Adrenergic Lars Start: 025 take 1 tablet by mouth once daily metoprolol succinate ER (TOPROL XL) 25 mg 24 hr tablet Take 25 mg by mouth once daily. 10/29/2024 Active Start: 09-01-2023 End: 05-29-2024 take 1 tablet by mouth once daily metoprolol succinate ER (TOPROL XL) 25 mg 24 hr tablet Take 25 mg by mouth once daily. 09/01/2023 05/29/2024 Discontinued (Other) metroNIDAZOLE 0.0075 mg/mg vaginal gel (2 sources) Nitroimidazole Antimicrobial Start: 05-16-2024 End: 05-21-2024 metroNIDAZOLE (METROGEL) 0.75 % (37.5mg/5 gram) Vaginal Gel Use 1 Applicatorful vaginally daily at bedtime for 5 days. 70 g 05/16/2024 05/21/2024 Active Start: 07-15-2021 End: 07-22-2021 take 1 tablet by mouth twice daily metroNIDAZOLE (FLAGYL) 500 mg tablet Take 1 tablet by mouth twice daily for 7 days. 14 tablet 0 07/15/2021 07/22/2021 Active Comment on above: Take 1 tablet by [facility] twice daily for 7 days. mupirocin 20 mg/ml topical cream (1 source) RNA Synthetase Inhibitor Antibacterial Start: 10-16-19 End: 10-26-19 mupirocin (BACTROBAN) 2 % cream Apply 1 application to affected area three times daily for 10 days. Location: scalp 30 g 1 10/15/2021 10/25/2021 Active Comment on above: Apply 1 application to affected area three times daily for 10 days. Location: scalp nitrofurantoin, macrocrystals 25 mg / nitrofurantoin, monohydrate 75 mg oral capsule (12 sources) Nitrofuran Antibacterial Start: 05-11-19 take 100 mg by mouth twice daily Nitrofurantoin Monohyd/M-Cryst Active 100 MG PO TWICE A DAY May 11, 2023 12:00am Start: 04-29-2022 End: 05-13-2022 take 1 capsule by mouth every twelve hours at mealtime Nitrofurantoin Monohyd/M-Cryst (Macrobid) 100 mg capsule Discontinued 100 MG PO Q12H 10 5 April 29, 2022 12:00am May 13, 2022 9:32am must administer with a meal/food Start: 01-07-2022 End: 01-12-2022 take 1 capsule by mouth twice daily at mealtime nitrofurantoin monohydrate and macrocrystal (MACROBID) 100 mg capsule Take 1 capsule by mouth twice daily with meals for 5 days. 10 capsule 0 01/07/2022 01/12/2022 Active Comment on above: Take 1 capsule by [facility] twice daily with meals for 5 days. 10 actuat olodaterol 0.0025 mg/actuat / tiotropium 0.0025 mg/actuat inhalation spray (20 sources) Anticholinergic, beta2-Adrenergic Agonist Start: 06-12-2024 End: 12-09-2024 STIOLTO RESPIMAT 2.5-2.5 mcg/actuation inhaler Indications: Chronic obstructive pulmonary disease with acute lower respiratory infection (HCC) Inhale 2 Puffs as instructed once daily. 4 g 5 06/12/2024 12/09/2024 Active Start: 08-01-2023 take 1 dose by inhal ation every twenty-four hours Stiolto Respimat 60 ACT 2.5 mcg-2.5 mcg/inh inhalation aerosol Dose = 2 puff(s), Inhalation, q24h, 0 Refill(s) Start Date: 08/01/23 Status: Ordered Start: 07-26-2023 End: 06-12-2024 STIOLTO RESPIMAT 2.5-2.5 mcg/actuation Inhale 2 Puffs as instructed once daily. 07/26/2023 06/12/2024 Discontinued Start: 12-16-2022 Tiotropium-Olo daterol (Stiolto Respimat) 2.5-2.5 mcg/actuation mist Active 2 INH INHALATION DAILY December 16, 2022 10:43am Start: 12-16-2022 Tiotropium-Olo daterol (Stiolto Respimat) 2.5-2.5 mcg/actuation mist Active 2 INH INHALATION DAILY December 16, 2022 11:43am Start: 10-18-2022 End: 12-16-2022 Tiotropium-Olodaterol (Stiol to Respimat) 2.5-2.5 mcg/actuation mist Discontinued 2 INH INHALATION DAILY October 17, 2022 11:00pm December 16, 2022 10:44am Start: 10-18-2022 End: 12-16-2022 Tiotropium-Olodaterol (Stiol to Respimat) 2.5-2.5 mcg/actuation mist Discontinued 2 INH INHALATION DAILY October 18, 2022 12:00am December 16, 2022 11:44am oseltamivir 75 mg oral capsule (1 source) Neuraminidase Inhibitor Start: 04-02-2022 take 1 capsule by mouth twice daily Oseltamivir (Tamiflu) 75 mg capsule Active 75 MG PO TWICE A DAY 01 27April 02, 2022 12:00am predniSONE 10 mg oral tablet (20 sources) Start: 05-16-2023 Prednisone Act carly 10 MG PO daily May 16, 2023 12:00am take 4 tabs for three days, then 3 tabs for three days, then 2 tabs for three days, then 1 tab for 3 days Start: 06-28-2022 End: 07-03-2022 take 2 tablets by mouth once daily predniSONE (DELTASONE) 20 mg tablet Indications: Lupus Take 2 tablets by mouth once daily for 5 days. 10 tablet 06/28/2022 07/03/2022 Start: 04-02-2022 take 40 mg by mouth once daily Prednisone Active 40 MG PO DAILY 01 27April 02, 2022 12:00am Start: 12-09-2015 End: 03-11-2016 take 60 mg by mouth once daily Prednisone Discontinued 60 MG PO DAILY December 08, 2015 11:00pm March 11, 2016 10:57pm Comment on above: Take 2 tablets by [facility] once daily for 5 days. pregabalin 100 mg oral capsule (4 sources) Start: End: 5 take 1 capsule by mouth twice daily pregabalin (LYRICA) 100 mg capsule Indications: Fibromyalgia , Neuropathic pain Take 1 capsule by mouth two times a day for 90 days. 60 capsule 2 08/09/2024 11/07/2024 Active tiZANidine 4 mg oral tablet (3 sources) Central alpha-2 Adrenergic Agonist Start: 5 End: 5 take 1 tablet by mouth every eight hours as needed for muscle spasms tiZANidine (ZANAFLEX) 4 mg tablet Indications: Discogenic thoracic pain Take 1 tablet by mouth every 8 hours as needed (muscle spasms). 90 tablet 06/12/2024 07/12/2024 Active Completed/Discontinued Medications Medication Drug Class(es) Dates Sig (Normalized) Sig (Original) acetaminophen 325 mg / HYDROcodone bitartrate 5 mg oral tablet (20 sources) Opioid Agonist Start: 01-08-2023 End: 05-11-2023 take 1 tablet by mouth every six hours as needed Hydrocodone-Acetami nophen Discontinued 1 TABLET PO EVERY 6 HOURS NEEDED 10 January 08, 2023 May 11, 2023 11:03am Start: 08-09-2020 End: 08-12-2020 take 1 tablet by mouth every six hours as needed Hydrocodone-Acetaminophen Discontinued 1 TABLET PO EVERY 6 HOURS NEEDED 10 August 09, 2020 August 11, 2020 11:02pm Start: 01-14-2020 End: 01-17-2020 take 1 tablet by mouth every six hours as needed Hydrocodone-Acetaminophen Discontinued 1 TABLET PO EVERY 6 HOURS NEEDED 10 January 14, 2020 January 16, 2020 11:02pm Start: 12-05-2019 End: 12-07-2019 take 1 tablet by mouth every four hours as needed Hydrocodone-Acetaminophen Discontinued 1 TABLET PO EVERY 4 HOURS NEEDED 14 06December 05, 2019 December 06, 2019 11:03pm Start: 06-26-2018 End: 06-29-2018 take 1 tablet by mouth every six hours as needed Hydrocodone-Acetaminophen Discontinued 1 TABLET PO EVERY 6 HOURS NEEDED 10 June 26, 2018 12:00am June 29, 2018 12:09am Start: 02-04-2013 End: 04-18-2013 take 1 tablet by mouth every four hours as needed Hydrocodone-Acetaminophen Discontinued 1 - 2 TABLET PO EVERY 4 HOURS NEEDED February 03, 2013 11:00pm April 18, 2013 8:40pm amoxicillin 500 mg oral capsule (6 sources) Penicillin-class Antibacterial Start: 01-22-2023 End: 05-11-2023 take 500 mg by mouth twice daily Amoxicillin Discontinued 500 MG PO TWICE A DAY January 21, 2023 11:00pm May 11, 2023 11:03am Start: 05-27-2022 End: 06-03-2022 take 1 capsule by mouth twice daily amoxicillin (POLYMOX, AMOXIL) 500 mg capsule Take 1 capsule by mouth twice daily for 7 days. 14 capsule 0 05/27/2022 06/03/2022 Active Comment on above: Take 1 capsule by [facility] twice daily for 7 days. busPIRone hydrochloride 7.5 mg oral tablet (8 sources) Start: 03-12-20 End: 06-29-19 take 0.5-1 tablets by mouth once daily in the morning, then take 1 tablet by mouth once daily in the evening busPIRone (BUSPAR) 7.5 mg tablet TAKE 1/2 (ONE-HALF) TO 1 (ONE) TABLET BY MOUTH EVERY DAY IN THE MORNING, and TAKE 1 TABLET EVERY NIGHT IN THE EVENING 0 03/12/2022 06/28/2022 Discontinued (Side Effects) Comment on above: TAKE 1/2 (ONE-HALF) TO 1 (ONE) TABLET BY MOUTH EVERY DAY IN THE MORNING, and TAKE 1 TABLET EVERY NIGHT IN THE EVENING citalopram 20 mg oral tablet (14 sources) Serotonin Reuptake Inhibitor Start: 02-05-20 13 End: 04-18-20 13 take 20 mg by mouth once daily Citalopram Discontinued 20 MG PO DAILY February 03, 2013 11:00pm April 18, 2013 8:40pm codeine phosphate 2 mg/ml / promethazine hydrochloride 1.25 mg/ml oral solution (9 sources) Opioid Agonist, Phenothiazine Start: 04-02-20 End: 06-29-19 promethazine-codeine 6.25-10 mg/5 mL syrup Take by mouth. 0 04/02/2022 06/28/2022 Discontinued Start: 04-02-2022 take 1 mL by mouth f our times daily as needed Promethazine-Codeine Active 5 ML PO 4 TIMES DAILY NEEDED 140 April 02, 2022 12:19am Comment on above: Take by mouth. diazePAM 5 mg oral tablet (14 sources) Benzodiazepine Start: End: take 5 mg by mouth four times daily as needed Diazepam Discontinued 5 MG PO 4 TIMES DAILY NEEDED 12 April 04, 2019 10:49am April 11, 2019 12:12am 0.5 ml dulaglutide 1.5 mg/ml auto-injector (5 sources) GLP-1 Receptor Agonist Start: 025 End: inject 0.75 mg by subcutaneous injection every week dulaglutide (TRULICITY) 0.75 mg/0.5 mL pen injector Indications: Type 2 diabetes mellitus with hyperglycemia, with long-term current use of insulin (HCC) Inject 0.75 mg subcutaneously one time a week. 2 mL 08/13/2024 11/05/2024 Discontinued (Discontinued by Patient) Start: 08-31-2022 End: 10-11-2022 inject 0.75 mg by subcutaneous injection every week dulaglutide (TRULICITY) 0.75 mg/0.5 mL pen injector Inject 0.75 mg subcutaneously one time a week. Inject dose once per week. Discard Pen After 4 Each 1 08/31/2022 10/11/2022 Discontinued Comment on above: Inject 0.75 mg subcu taneously one time a week. Inject dose once per week. Discard Pen After estradiol 0.1 mg/ml vaginal cream (14 sources) Estrogen Start: 07-13-2021 End: 06-28-2022 estradiol (ESTRACE) 0.01 % (0.1 mg/gram) vaginal cream Indications: Vaginal atrophy Use 1 g vaginally once daily. For two weeks then twice weekly for maintenance. 42.5 g 4 07/13/2021 06/28/2022 Discontinued Comment on above: Use 1 g vaginally on ce daily. For two weeks then twice weekly for maintenance. flash glucose scanning reader (FREESTYLE ANA 2 READER) (20 sources) Start: 05-29-2024 End: 07-11-2024 flash glucose scanning reader (FREESTYLE ANA 2 READER) 1 Each every hour as needed. 1 Each 05/29/2024 07/11/2024 Discontinued Start: 05-29-2024 End: 05-29-2025 flash glucose scanning reade r (FREESTYLE ANA 2 READER) 1 Each every hour as needed. 1 Each 05/29/2024 05/29/2025 Active Start: 03-21-2024 End: 05-29-2024 flash glucose scanning reade r (FREESTYLE ANA 2 READER) Indications: Type 2 diabetes mellitus with hyperglycemia, with long-term current use of insulin (HCC) 1 Each every hour as needed. 1 Each 03/21/2024 05/29/2024 Discontinued Start: 03-21-2024 End: 03-21-2025 flash glucose scanning reade r (FREESTYLE ANA 2 READER) Indications: Type 2 diabetes mellitus with hyperglycemia, with long-term current use of insulin (HCC) 1 Each every hour as needed. 1 Each 03/21/2024 03/21/2025 Active Start: 08-30-2023 End: 03-21-2024 flash glucose scanning reade r (FREESTYLE ANA 2 READER) Indications: Type 2 diabetes mellitus with hyperglycemia, with long-term current use of insulin (HCC) 1 Each every hour as needed. 1 Each 08/30/2023 03/21/2024 Discontinued Start: 08-30-2023 End: 08-29-2024 flash glucose scanning reade r (FREESTYLE ANA 2 READER) Indications: Type 2 diabetes mellitus with hyperglycemia, with long-term current use of insulin (HCC) 1 Each every hour as needed. 1 Each 08/30/2023 08/29/2024 Active Start: 08-30-2023 End: 08-29-2024 flash glucose scanning reade r (FREESTYLE ANA 2 READER) Indications: Type 2 diabetes mellitus with hyperglycemia, with long-term current use of insulin (HCC) 1 Each every hour as needed. 1 Each 0 08/30/2023 08/29/2024 Active flash glucose sensor (FREEST YLE ANA 2 SENSOR) kit (20 sources) Start: 02-15-2024 End: 07-11-2024 flash glucose sensor (FREEST YLE ANA 2 SENSOR) kit 2 Each three times a day as needed. 12 Each 3 02/15/2024 07/11/2024 Discontinued Start: 02-15-2024 End: 02-14-2025 flash glucose sensor (FREEST YLE ANA 2 SENSOR) kit 2 Each three times a day as needed. 12 Each 3 02/15/2024 02/14/2025 Active Start: 02-24-2023 End: 02-14-2024 flash glucose sensor (FREEST YLE ANA 2 SENSOR) kit 2 Each three times a day as needed. 12 Each 3 02/24/2023 02/14/2024 Discontinued Start: 02-24-2023 End: 02-24-2024 flash glucose sensor (FREEST YLE ANA 2 SENSOR) kit 2 Each three times a day as needed. 12 Each 3 02/24/2023 02/24/2024 Active Start: 09-22-2022 End: 02-24-2023 flash glucose sensor (FREEST YLE ANA 2 SENSOR) kit 2 Each three times daily as needed. 2 Each 2 09/22/2022 02/24/2023 Discontinued Start: 09-22-2022 flash glucose sensor (FREESTYLE ANA 2 SENSOR) kit 2 Each three times daily as needed. 2 Each 2 09/22/2022 Active Start: 06-01-2022 End: 09-21-2022 flash glucose sensor (FREEST YLE ANA 2 SENSOR) kit 2 Each three times daily as needed. 2 Each 2 06/01/2022 09/21/2022 Discontinued Start: 06-01-2022 flash glucose sensor (FREESTYLE ANA 2 SENSOR) kit 2 Each three times daily as needed. 2 Each 2 06/01/2022 Active Start: 01-11-2022 flash glucose sensor (FREESTYLE ANA 2 SENSOR) kit 2 Each three times daily as needed. 2 Each 2 01/11/2022 Active Comment on above: 2 Each three times d aily as needed. 2 Each three times a day as needed. fluconazole 150 mg oral tablet (20 sources) Azole Antifungal Start: End: take 1 tablet by mouth once fluconazole (DIFLUCAN) 150 mg tablet Indications: Vaginal yeast infection Take 1 tablet by mouth one time only for 1 dose. 1 tablet 0 08/30/2023 08/30/2023 Start: 05-11-2023 Fluconazole Ac tive 150 MG PO .COMPLEX May 11, 2023 12:00am 150 mg orally; x 2 Start: 05-10-2023 End: 05-29-2024 fluconazole (DIFLUCAN) 150 m g tablet Take immediately and repeat in 3 days as needed. 2 tablet 05/10/2023 05/29/2024 Discontinued (Other) Start: 07-15-2021 End: 07-15-2021 take 1 tablet by mouth once fluconazole (DIFLUCAN) 150 mg tablet Take 1 tablet by mouth one time only for 1 dose. 1 tablet 0 07/15/2021 07/15/2021 Active Comment on above: Take 1 tablet by [facility] one time only for 1 dose. Take immediately and repeat in 3 days as needed. fluticasone propionate 0.05 mg/actuat metered dose nasal spray (9 sources) Corticosteroid Start: End: take 2 spray(s) by mouth once daily fluticasone (FLONASE) 50 mcg/actuation nasal spray Use 2 Sprays in each nostril once daily. Rinse mouth after use. 1 Each 0 01/07/2022 06/28/2022 Discontinued Comment on above: Use 2 Sprays in each nostril once daily. Rinse mouth after use. 120 actuat formoterol fumarate 0.0048 mg/actuat / glycopyrrolate 0.009 mg/actuat metered dose inhaler (6 sources) beta2-Adrenergic Agonist Start: End: Glycopyrrolate-Formo terol (Bevespi Aerosphere) 9-4.8 mcg HFA aerosol inhaler Discontinued 2 PUFF INHALATION every day in the morning and in the evening October 14, 2022 11:00pm October 18, 2022 12:17pm lactobacillus acidophilus 460 mg oral capsule (3 sources) Start: End: take 1 capsule by mouth once daily Lactobacillus acidophilus (FLORAJEN ACIDOPHILUS) 20 billion cell cap Take 1 capsule by mouth once daily. 30 capsule 0 01/21/2021 10/01/2021 Discontinued (Discontinued by Patient) Comment on above: Take 1 capsule by mo [facility] once daily. linagliptin 5 mg oral tablet (20 sources) Dipeptidyl Peptidase 4 Inhibitor Start: End: take 1 tablet by mouth once daily linaGLIPtin (TRADJENTA) 5 mg tab Indications: type 2 diabetes mellitus Take 1 tablet by mouth once daily. 30 tablet 11 06/12/2024 11/05/2024 Discontinued Comment on above: [facility] 24 hr metFORMIN hydrochloride 1000 mg extended release oral tablet (20 sources) Biguanide Start: End: take 1 tablet by mouth twice daily metFORMIN ER (GLUMETZA) 1,000 mg 24 hr tablet Take 1 tablet by mouth twice daily. 180 tablet 01/11/2022 11/16/2022 Discontinued Start: 05-18-2021 End: 01-11-2022 take 1 tablet by mouth once daily at breakfast metFORMIN ER (GLUMETZA) 1,000 mg 24 hr tablet Indications: Uncontrolled type 2 diabetes mellitus with complication, without long-term current use of insulin Take 1 tablet by mouth daily with breakfast. 180 tablet 0 05/18/2021 01/11/2022 Discontinued Start: 12-06-2017 End: 05-11-2023 take 1000 mg by mouth once daily Metformin Discontinue d 1000 MG PO DAILY December 05, 2017 11:00pm May 11, 2023 11:04am Comment on above: Take 1 tablet by [facility] th daily with breakfast. Take 1 tablet by [facility] th twice daily. 24 hr nicotine 0.875 mg/hr transdermal system (5 sources) Cholinergic Nicotinic Agonist Start: 04-23-20 End: 06-29-19 apply 1 dose transdermal route every twenty-four hours nicotine (NICODERM) 21 mg/24 hr Indications: Tobacco abuse Apply 1 Patch as directed every 24 hours. 30 Patch 1 04/23/2022 06/28/2022 Discontinued (Discontinued by Patient) Comment on above: Apply 1 Patch as dir ected every 24 hours. risperiDONE 1 mg oral tablet (14 sources) Atypical Antipsychotic Start: 02-05-20 End: 04-18-20 take 1 mg by mouth once daily Risperidone Discontinued 1 MG PO DAILY February 03, 2013 11:00pm April 18, 2013 8:40pm 0.25 mg, 0.5 mg dose 1.5 ml semaglutide 1.34 mg/ml pen injector (20 sources) Start: 07-08-19 End: 10-16-19 Semaglutide (Ozempic) 0.25 mg or 0.5 mg(2 mg/1.5 mL) pen injector Discontinued 0.5 MG SC EVERY WEEK July 07, 2022 8:01am October 15, 2022 9:48am Start: 07-07-2022 End: 07-07-2022 Semaglutide (Ozempic) 0.25 m g or 0.5 mg(2 mg/1.5 mL) pen injector Discontinued 2 MG SC EVERY WEEK July 06, 2022 11:00pm July 07, 2022 8:01am Start: 06-28-2022 End: 08-31-2022 semaglutide (OZEMPIC) 0.25 m g or 0.5 mg(2 mg/1.5 mL) pen Indications: Type 2 diabetes mellitus with hyperglycemia, with long-term current use of insulin (HCC) Inject 0.5 mg subcutaneously one time a week. 4 Each 2 06/28/2022 08/31/2022 Discontinued (Course of therapy completed) Start: 05-11-2022 End: 06-28-2022 semaglutide (OZEMPIC) 0.25 m g or 0.5 mg(2 mg/1.5 mL) pen Inject 0.25 mg subcutaneously one time a week. 4 Each 2 05/11/2022 06/28/2022 Discontinued Comment on above: Inject 0.25 mg subcu taneously one time a week. Inject 0.5 mg subcut aneously one time a week. semaglutide (OZEMPIC) 0.25 mg or 0.5 mg (2 mg/3 mL) pen (2 sources) Start: 08-09-2024 End: 08-13-2024 semaglutide (OZEMPIC) 0.25 mg or 0.5 mg (2 mg/3 mL) pen Indications: Type 2 diabetes mellitus with hyperglycemia, with long-term current use of insulin (HCC) Inject 0.25 mg subcutaneously one time a week. 3 mL 08/09/2024 08/13/2024 Discontinued (Cost of medication) Start: 08-09-2024 End: 10-04-2024 semaglutide (OZEMPIC) 0.25 m g or 0.5 mg (2 mg/3 mL) pen Indications: Type 2 diabetes mellitus with hyperglycemia, with long-term current use of insulin (HCC) Inject 0.25 mg subcutaneously one time a week. 3 mL 08/09/2024 10/04/2024 Active sulfamethoxazole 800 mg / trimethoprim 160 mg oral tablet (20 sources) Dihydrofolate Reductase Inhibitor Antibacterial, Sulfonamide Antimicrobial Start: 04-12-2022 End: 06-28-2022 take 1 tablet by mouth twice daily Sulfamethoxazole-Trimethoprim (Bactrim Ds) 800-160 mg tablet Discontinued 1 TABLET PO TWICE A DAY 14 April 12, 2022 12:00am May 13, 2022 9:31am Start: 06-10-2021 take 1 tablet by ng[facility]ia th every twelve hours Sulfamethoxazole-Trimethoprim (Bactrim D s) 800-160 mg tablet Active 1 TABLET PO Q12H June 10, 2021 12:00am Comment on above: Take 1 tablet by ng[facility]ia th twice daily. Umeclidinium-Vilantero l (6 sources) Anticholinergic, beta2-Adrenergic Agonist Start: 07-07-2022 End: 10-15-2022 Umeclidinium-Vilanterol (Anoro Ellipta) 62.5-25 mcg/actuation blister with device Discontinued 1 INH INHALATION Q24H 60 July 06, 2022 11:00pm October 15, 2022 10:08am Start: 07-07-2022 End: 10-15-2022 Umeclidinium-Vilanterol (Ano ro Ellipta) 62.5-25 mcg/actuation blister with device Discontinued 1 INH INHALATION Q24H 60 July 07, 2022 12:00am October 15, 2022 11:08am 24 hr venlafaxine 37.5 mg extended release oral capsule (10 sources) Serotonin and Norepinephrine Reuptake Inhibitor Start: 04-07-2022 End: 05-13-2022 take 37.5 mg by mouth once daily Venlafaxine Discontinued 37.5 MG PO DAILY April 07, 2022 12:00am May 13, 2022 9:31am Problems Active Problems Problem Classification Problem Date Documented Da te Episodic/Chronic Abdominal pain (14 sources) Pain in pelvis; Translations: [Pelvic and perineal pain] 10-29-2018 Episodic Anxiety disorders (20 sources) Anxiety; Translations: [Anxiety disorder, unspecified] Onset: 12-29-2012 12-29-2012 Chronic Cardiac dysrhythmias (6 sources) Palpitations; Translations: [Tachycardia] Onset: 11-30-2024 12-07-2019 Episodic Comment on above: Stable. Chronic obstructive pulmonary disease and bronchiectasis (14 sources) Chronic obstructive lung disease; Translations: [Chronic obstructive pulmonary disease, unspecified] Onset: 08-09-2024 01-08-2023 Chronic Contraceptive and procreative management (2 sources) Intrauterine contraceptive device in situ; Translations: [Encounter for routine checking of intrauterine contraceptive device] Episodic Diabetes mellitus with complications (20 sources) Type 2 diabetes mellitus; Translations: [Type 2 diabetes mellitus with hyperglycemia] Onset: 04-11-2014 05-01-2019 Chronic Diabetes mellitus without complication (16 sources) Diabetes mellitus; Translations: [Type 2 diabetes mellitus without complications] Onset: 05-29-2024 04-02-2022 Chronic Diabetes mellitus without complication (20 sources) Hyperglycemia; Translations: [Hyperglycemia, unspecified] 06-03-2018 Episodic Diseases of mouth; excluding dental (1 source) Disorder of tongue; Translations: [Other disturbances of oral epithelium, including tongue] Episodic Diseases of white blood cells (12 sources) Leukocytosis; Translations: [Elevated white blood cell count, unspecified] Chronic Disorders of lipid metabolism (20 sources) Dyslipidemia; Translations: [Hyperlipidemia, unspecified] Onset: 01-12-2016 Resolved: 10-01-2021 01-12-2016 Chronic Essential hypertension (20 sources) Essential hypertension; Translations: [Essential (primary) hypertension] Onset: 01-15-2012 12-22-2014 Chronic Comment on above: Uncontrolled. Blood pressure goal is less than 130/80. Genitourinary symptoms and ill-defined conditions (1 source) Female stress incontinence; Translations: [Stress incontinence (female) (male)] 09-14-2023 Chronic Headache; including migraine (20 sources) Headache; Translations: [Headache] 06-06-2016 Episodic Influenza (20 sources) Influenza due to Influenza A virus; Translations: [Influenza due to other identified influenza virus with other respiratory manifestations] Episodic Lymphadenitis (1 source) Hilar lymphadenopathy ; Translations: [Localized enlarged lymph nodes] Episodic Malaise and fatigue (3 sources) Fatigue; Translations: [Other fatigue] Episodic Menopausal disorders (1 source) Atrophy of vagina; Translations: [Postmenopausal atrophic vaginitis] Chronic Mood disorders (7 sources) Moderate major depression, single episode; Translations: [Major depressive disorder, single episode, moderate] Onset: 05-29-2024 05-29-2024 Chronic Mycoses (1 source) Candidiasis of vagina; Translations: [Vaginal yeast infection] 08-30-2023 Episodic Nonmalignant breast conditions (1 source) Breast finding ; Translations: [Dense breast tissue] 09-14-2023 Episodic Nonspecific chest pain (20 sources) Chest pain; Translations: [Chest pain, unspecified] Onset: 06-04-2013 Resolved: 06-07-2016 06-21-2021 Episodic Nutritional deficiencies (2 sources) Vitamin D deficiency; Translations: [Vitamin D deficiency, unspecified] Onset: 06-12-2024 06-12-2024 Chronic Osteoarthritis (20 sources) Osteoarthritis of right knee joint; Translations: [Unilateral primary osteoarthritis, right knee] Onset: 08-08-2015 08-08-2015 Chronic Other acquired deformities (15 sources) Postural kyphosis; 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, thoracic region] Onset: 03-20-2024 03-02-2024 Chronic Other acquired deformities (1 source) Postural kyphosis, thoracic region; 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 of thoracic region] Onset: 03-20-2024 Chronic Other aftercare (1 source) Post-discharge follow-up; Translations: [Encounter for follow-up examination after completed treatment for conditions other than malignant neoplasm] Episodic Other connective tissue disease (20 sources) Neuropathic pain; Translations: [Neuralgia and neuritis, unspecified] Onset: 07-17-2014 07-17-2014 Episodic Other connective tissue disease (20 sources) Fibromyalgia; Translations: [Fibromyalgia] Onset: 03-07-2015 03-07-2015 Episodic Other connective tissue disease (14 sources) Radial styloid tenosynovitis; Translations: [Radial styloid tenosynovitis [de Quervain]] 07-16-2018 Episodic Other connective tissue disease (14 sources) Thigh pain; Translations: [Pain in right thigh] 01-17-2019 Episodic Other connective tissue disease (12 sources) Pain in right lower limb; Translations: [Pain in right leg] 12-06-2021 Episodic Other connective tissue disease (1 source) Bilateral calf pain; Translations: [Pain in right lower leg] 08-30-2023 Episodic Other connective tissue disease (2 sources) Pain in bilateral legs; Translations: [Pain in right leg] 01-31-2024 Episodic Other female genital disorders (1 source) Burning sensation of vagina; Translations: [Unspecified condition associated with female genital organs and menstrual cycle] Episodic Other fractures (14 sources) Fracture of rib; Translations: [Fracture of one rib, unspecified side, initial encounter for closed fracture] 10-09-2017 Episodic Other gastrointestinal disorders (2 sources) Heartburn 06-17-2021 Episodic Other inflammatory condition of skin (1 source) Psoriasis; Translations: [Psoriasis, unspecified] 08-30-2023 Chronic Other injuries and conditions due to external causes (14 sources) Injury of head; Translations: [Unspecified injury of head, initial encounter] 11-10-2020 Episodic Other lower respiratory disease (20 sources) Dyspnea; Translations: [Shortness of breath] Onset: 11-30-2024 05-13-2022 Episodic Other lower respiratory disease (5 sources) Shortness of breath; Translations: [Shortness of breath] Onset: 11-30-2024 Episodic Other nervous system disorders (20 sources) [...] I of right lower limb] Chronic Other nervous system disorders (1 source) Polyneuropathy; Translations: [Polyneuropathy, unspecified] 01-12-2024 Chronic Other nervous system disorders (1 source) Other chronic pain; Translations: [Chronic thoracic spine pain] Onset: 03-20-2024 Chronic Other nervous system disorders (3 sources) Paresthesia of lower extremity; Translations: [Paresthesia of skin] 01-31-2024 Episodic Other non-traumatic joint disorders (1 source) Pain in right shoulder; Translations: [Pain in joint, shoulder region] 02-24-2023 Episodic Other nutritional; endocrine; and metabolic disorders (20 sources) Body mass index 40+ - severely obese; Translations: [Morbid (severe) obesity due to excess calories] Onset: 01-12-2016 01-12-2016 Chronic Other nutritional; endocrine; and metabolic disorders (20 sources) Obesity; Translations: [Obesity, unspecified] 05-13-2022 Chronic Other nutritional; endocrine; and metabolic disorders (3 sources) Obesity, unspecified; Translations: [Obesity, unspecified] 05-13-2022 Chronic Other nutritional; endocrine; and metabolic disorders (14 sources) H/O: diabetes mellitus; Translations: [Personal history of other endocrine, nutritional and metabolic disease] 09-02-2021 Episodic Other nutritional; endocrine; and metabolic disorders (2 sources) Overweight 12-07-2019 Episodic Other screening for suspected conditions (not mental disorders or infectious disease) (3 sources) Cardiovascular stress test abnormal; Translations: [Cancer cervix screening status] 05-21-2019 Episodic Other skin disorders (14 sources) Infection of sebaceous cyst; Translations: [Sebaceous cyst] 06-18-2021 Episodic Other skin disorders (1 source) Ingrowing toenail; Translations: [Ingrowing nail] 02-27-2024 Episodic Other upper respiratory infections (7 sources) Streptococcal sore throat; Translations: [Streptococcal pharyngitis] 01-22-2023 Episodic Otitis media and related conditions (1 source) Finding of fluid behind tympanic membrane; Translations: [Unspecified nonsuppurative otitis media, left ear] Episodic Connie-; endo-; and myocarditis; cardiomyopathy (except that caused by tuberculosis or sexually transmitted disease) (14 sources) Heart valve regurgitation; Translations: [Endocarditis, valve unspecified] 07-15-2018 Chronic Residual codes; unclassified (11 sources) Obstructive sleep apnea syndrome; Translations: [Obstructive sleep apnea (adult) (pediatric)] 05-13-2022 Chronic Comment on above: Patient is noncompli ant with her CPAP. I did discuss that this could be contributing to her symptoms. Residual codes; unclassified (5 sources) Obstructive sleep apnea (adult) (pediatric); Translations: [Obstructive sleep apnea (adult)(pediatric)] Onset: 11-30-2024 05-13-2022 Chronic Respiratory failure; insufficiency; arrest (adult) (12 sources) Acute hypoxemic respiratory failure; Translations: [Acute respiratory failure with hypoxia] Episodic Spondylosis; intervertebral disc disorders; other back problems (18 sources) Degeneration of lumbar intervertebral disc; Translations: [Degeneration of intervertebral disc of lumbar region with discogenic back pain and lower extremity pain] Onset: 03-20-2024 03-02-2024 Chronic Sprains and strains (20 sources) Lumbosacral strain; Translations: [Strain of muscle, fascia and tendon of lower back, initial encounter] 10-16-2019 Episodic Substance-related disorders (10 sources) Nicotine dependence; Translations: [Nicotine dependence, cigarettes, uncomplicated] 05-13-2022 Chronic Superficial injury; contusion (20 sources) Hematoma of lower limb; Translations: [Contusion of right lower leg, initial encounter] 09-02-2021 Episodic Systemic lupus erythematosus and connective tissue disorders (20 sources) Lupus erythematosus; Translations: [Systemic lupus erythematosus, unspecified] Onset: 03-07-2015 08-10-2016 Chronic Thyroid disorders (1 source) Hyperthyroidism; Translations: [Thyrotoxicosis, unspecified without thyrotoxic crisis or storm] 12-16-2023 Chronic Unclassified (1 source) Cough, unspecified type; Translations: [Cough, unspecified type] Onset: 01-15-2025 Unclassified (1 source) Degeneration of intervertebral disc of lumbar region with discogenic back pain and lower extremity pain; Translations: [Degeneration of intervertebral disc of lumbar region with discogenic back pain and lower extremity pain] Onset: 03-20-2024 Urinary tract infections (20 sources) Urinary tract infectious disease; Translations: [Urinary tract infection, site not specified] Episodic Viral infection (3 sources) Viral disease; Translations: [Viral infection, unspecified] 05-27-2023 Episodic Past or Other Problems Problem Classification Problem Date Documented Date Episodic/Chronic Genitourinary symptoms and ill-defined conditions (2 sources) Dysuria; Translations: [Dysuria] Onset: 02-27-2024 02-27-2024 Episodic Immunizations and screening for infectious disease (20 sources) Patient encounter status; Translations: [Encounter for screening for infections with a predominantly sexual mode of transmission] Onset: 05-15-2024 Episodic Other aftercare (1 source) retirement (current) use of insulin; Translations: [Type 2 diabetes mellitus with hyperglycemia, with long-term current use of insulin (HCC)] Onset: 05-01-2019 Episodic Other connective tissue disease (20 sources) Pain in limb; Translations: [Pain in unspecified limb] Onset: 05-13-2014 Resolved: 06-07-2016 06-07-2016 Episodic Other connective tissue disease (1 source) Neuralgia and neuritis, unspecified; Translations: [Neuropathic pain] Onset: 07-17-2014 Episodic Other connective tissue disease (1 source) Fibromyalgia; Translations: [Fibromyalgia] Onset: 03-07-2015 Episodic Other connective tissue disease (1 source) Pain in right leg; Translations: [Pain in both lower extremities] Onset: 03-02-2024 Episodic Other connective tissue disease (1 source) Pain in left leg; Translations: [Pain in both lower extremities] Onset: 03-02-2024 Episodic Other connective tissue disease (1 source) Other specified soft tissue disorders; Translations: [Other specified soft tissue disorders] Onset: 04-27-2024 Episodic Other nervous system disorders (1 source) Paresthesia of skin; Translations: [Paresthesia of bilateral legs] Onset: 03-02-2024 Episodic Other non-traumatic joint disorders (20 sources) Patellar instability; Translations: [Other instability, right knee] Onset: 07-29-2015 07-29-2015 Episodic Other non-traumatic joint disorders (20 sources) Pain in right knee; Translations: [Pain in joint, lower leg] Onset: 11-07-2015 11-07-2015 Episodic Other skin disorders (1 source) Ingrowing nail; Translations: [Ingrown toenail] Onset: 02-27-2024 Episodic Pneumonia (except that caused by tuberculosis or sexually transmitted disease) (19 sources) Pneumonia due to methicillin resistant Staphylococcus aureus; Translations: [Pneumonia due to Methicillin resistant Staphylococcus aureus] Onset: 05-29-2024 Episodic Residual codes; unclassified (20 sources) Tobacco user; Translations: [Tobacco use] Onset: 01-12-2016 01-12-2016 Episodic Comment on above: Patient states she h as cut down on tobacco use. Skin and subcutaneous tissue infections (20 sources) Abscess of perineum; Translations: [Cutaneous abscess of perineum] Onset: 11-05-2024 Episodic Spondylosis; intervertebral disc disorders; other back problems (20 sources) Backache; Translations: [Dorsalgia, unspecified] Onset: 08-14-2012 08-14-2012 Episodic Unclassified (14 sources) Abdominal abscess; Translations: [Abdominal abscess] 02-29-2020 Unclassified (14 sources) History of immune disorder; Translations: [History of lupus] 09-02-2021 Results Test Name Value Interpretation Reference Range Facility [facility] RULE,GINGER Lezama ([id number]) 1980 F Date Time Provider Department 02/19/25 [facility] During your visit today, we recorded the following information about you: Carmen Osorio RN 02/19/2025 2:50 PM Signed Pt reports she was taking Trulicity for a period of time, then ran out of the medication and then never restarted it. Reports she has not taken the medication for a couple/few months. She would like to begin taking it again. 1) Pt asking if Angela will reorder it for her? 2) Is patient to start again with the same dose as she left off with? Please call patient with an update. Lazara Melendez, WEB CONTENT COORDINATOR.MAINTENANCE WELDER 02/19/2025 4:48 PM Signed Will order at previous dose. Please schedule follow up in 6 - 8 weeks Charla Beard LPN 02/19/2025 5:17 PM Signed Pt notified of provider message concerning Trulicity. Follow up appt scheduled. Charla Beard LPN Allergies As of Date: 02/19/2025 Noted Allergy Reaction CATS 10/23/2009 4 - Hives 9 - Itching DUST 10/23/2009 Comments: environmental GRASS POLLEN 10/23/2009 9 - Itching ACETAMINOPHEN 01/07/2022 8 - GI Upset CARDIZEM (DILTIAZEM) 07/25/2013 8 - GI Upset 11 - Vomiting PERCOCET (OXYCODONE-ACETAMINOPHE N)06/07/2016 11 - Vomiting ZYRTEC (CETIRIZINE HCL) 08/22/2013 4 - Hives Date Reviewed: 01/15/2025 Reviewed by: Kristian Mcdowell - Fully Assessed Reason for Visit: Medication Request [138] Visit Diagnosis:Type 2 diabetes mellitus with hyperglycemia, with long-term current use of insulin (HCC) [E11.65, Z79.4] Order(s):dulaglutide (TRULICITY) 0.75 mg/0.5 mL pen injectorInject 0.75 mg subcutaneously one time a week.Disp: 2 mLRfl: 2 Prescriptions as of 02/19/2025 - dulaglutide (TRULICITY) 0.75 mg/0.5 mL pen injector Inject 0.75 mg subcutaneously one time a week. - albuterol HFA (PROVENTIL HFA, VENTOLIN HFA) 90 mcg/actuation inhaler Inhale 2 puffs as instructed every 6 hours as needed for wheezing/shortness of breath. - metoprolol succinate ER (TOPROL XL) 25 mg 24 hr tablet Take 25 mg by mouth once daily. - DULoxetine (CYMBALTA) 60 mg capsule Take 1 capsule by mouth once daily. - empagliflozin (JARDIANCE) 25 mg tablet Take 1 tablet by mouth daily with breakfast. - linaGLIPtin (TRADJENTA) 5 mg tab Take 1 tablet by mouth once daily. - gabapentin (NEURONTIN) 800 mg tablet Take 800 mg by mouth three times a day. - pregabalin (LYRICA) 100 mg capsule Take 1 capsule by mouth two times a day for 90 days. - insulin lispro (ADMELOG SOLOSTAR U-100 INSULIN) 100 unit/mL Inject 12 units with meals (TID) plus SS #1 (1 for 50 over 150 pre meal blood sugar) TDD 50 units - Insulin [place], Disposable, (SURE-FINE PEN NEEDLES) 31 gauge x 3/16 Daily injections - USES 4 pen needles daily with insulin - ergocalciferol 50,000 unit capsule (VITAMIN D2, DRISDOL) Take 1 capsule by mouth one time a week. - insulin glargine (LANTUS SOLOSTAR U-100 INSULIN) 100 unit/mL (3 mL) Inject 50 Units subcutaneously daily at bedtime. - STIOLTO RESPIMAT 2.5-2.5 mcg/actuation inhaler Inhale 2 Puffs as instructed once daily. - Lancets Test blood sugar(s) two times daily. Dx: E11.65. Insulin: Yes - blood sugar diagnostic (BLOOD GLUCOSE TEST) test strip Test blood sugar(s) 2 times daily. Dx: Type 2 DM - Uncontrolled E11.65 Insulin: Yes - Blood-Glucose Meter,Continuous (FREESTYLE ANA 3 READER) misc Use to check blood sugar at least four (4) times daily. - Blood-Glucose Sensor (FREESTYLE ANA 3 SENSOR) natalia Apply new sensor every fourteen (14) days to upper arm. - atorvastatin (LIPITOR) 20 mg tablet Take 1 tablet by mouth once daily. - levonorgestrel (MIRENA) 21 mcg/24 hr (8 yrs) 52 mg IUD 1 Each by INTRAUTERINE route as directed. - albuterol HFA (PROVENTIL HFA, VENTOLIN HFA) 90 mcg/actuation inhaler Inhale 2 Puffs as instructed every 4 hours as needed for wheezing/shortness of breath. 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 Normal [facility] CNOVon 01-15-2025 CNOV Office Visit (WOUCA) GINGER CHING ([id number]) 1980 F Date Time Provider Department 01/15/25 11:30 AM ARNULFO LUX During your visit today, we recorded the following information about you: Temperature Pulse Respiration Blood pressure 97.9 degrees 94/minute 18/minute 132/82 Weight 97.2 kg Arnulfo Lux APRN.MAINTENANCE WELDER 01/15/2025 1:56 PM Signed [facility] Subjective Ginger Ching is a 44 year old female presenting with chest congestion, a dry non-productive cough, runny nose, and a 8/10 headache for x 2 days. Associated symptoms include postnasal drip, sinus pain and pressure, and shortness of breathe. Patient reports a history of COPD with no known exacerbations. She has been taking her daily inhaler. Pertinent negatives include no fever, chills, fatigue, no sore throat, or trouble swallowing. Review of Systems Constitutional: Positive for diaphoresis. Negative for chills, fatigue and fever. HENT: Positive for postnasal drip, rhinorrhea (yellow), sinus pressure and sinus pain. Negative for congestion, ear discharge, ear pain, sneezing, sore throat, tinnitus and trouble swallowing. Eyes: Negative for pain, discharge, redness and itching. Respiratory: Positive for cough, shortness of breath and wheezing. Cardiovascular: Negative for chest pain. Allergic/Immunologic: Positive for environmental allergies. Neurological: Positive for headaches (8/10). Negative for dizziness and light-headedness. Objective BP 132/82 Pulse 94 Temp 36.6 ?C (97.9 ?F) (Tympanic) Resp 18 Wt 97.2 kg (214 lb 4.6 oz) LMP 07/03/2024 (Within Days) SpO2 96% BMI 36.78 kg/m? Physical Exam Vitals and nursing note reviewed. Constitutional: General: She is awake. She is not in acute distress. Appearance: Normal appearance. She is not ill-appearing or toxic-appearing. HENT: Head: Normocephalic. Right Ear: Tympanic membrane, ear canal and external ear normal. Left Ear: Tympanic membrane, ear canal and external ear normal. Nose: Rhinorrhea present. Rhinorrhea is clear. Right Nostril: No foreign body or occlusion. Left Nostril: No foreign body or occlusion. Right Turbinates: Not enlarged, swollen or pale. Left Turbinates: Not enlarged, swollen or pale. Right Sinus: Frontal sinus tenderness present. No maxillary sinus tenderness. Left Sinus: Frontal sinus tenderness present. No maxillary sinus tenderness. Mouth/Throat: Mouth: Mucous membranes are moist. Tongue: No lesions. Tongue does not deviate from midline. Palate: No mass and lesions. Pharynx: Oropharynx is clear. Uvula midline. No pharyngeal swelling, oropharyngeal exudate, posterior oropharyngeal erythema, uvula swelling or postnasal drip. Tonsils: No tonsillar exudate or tonsillar abscesses. 2+ on the right. Eyes: Conjunctiva/sclera: Conjunctivae normal. Pupils: Pupils are equal, round, and reactive to light. Cardiovascular: Rate and Rhythm: Normal rate and regular rhythm. Heart sounds: Normal heart sounds, S1 normal and S2 normal. No murmur heard. Pulmonary: Effort: Pulmonary effort is normal. Breath sounds: Normal breath sounds. No decreased breath sounds or wheezing. Musculoskeletal: Cervical back: Full passive range of motion without pain. Lymphadenopathy: Head: Right side of head: No submental, submandibular, tonsillar, preauricular, posterior auricular or occipital adenopathy. Left side of head: No submental, submandibular, tonsillar, preauricular, posterior auricular or occipital adenopathy. Skin: General: Skin is warm and dry. Capillary Refill: Capillary refill takes less than 2 seconds. Neurological: Mental Status: She is alert and oriented to person, place, and time. Psychiatric: Mood and Affect: Mood normal. {ASSESSMENT/PLAN: 1. Cough, unspecified type - ICD9: 786.2, ICD10: R05.9 - Educated patient to schedule a PCP follow up for further evaluation of COPD management. - Educated if shortness of breath continues then she should go to the Emergency Room. - XR CHEST 2V FRONTAL/LAT RESULT: Lungs and pleura: Elevation of the RIGHT hemidiaphragm and mild RIGHT basilar atelectasis/scarring. No consolidation, pleural effusion or pneumothorax. Cardiomediastinal silhouette: Normal cardiomediastinal silhouette. Bones and soft tissues: Mild endplate degenerative changes in the thoracic spine. Exaggerated kyphosis of the thoracolumbar junction similar to prior exam. MDM Procedures Discussed medication dosage, usage, goals of therapy, and side effects. Return to [facility], call primary care provider, or go to the emergency department for problems, worsening, increased or new symptoms, etc. Red flag symptoms discussed with the patient and when to go to ER. Patient verbalized understanding to plan of care. Kirstian Mcdowell ANTIQUE FURNITURE RESTORER student TEACHING PROVIDER (Physician/PA/WEB CONTENT COORDINATOR) N (more content not included)... Normal [facility] XR CHEST 2V FRONTAL/LATon XR CHEST 2V FRONTAL/LAT * * *Final Report* * * DATE OF EXAM: Jan 15 2025 12:09PM WOX [id number] - XR CHEST 2V FRONTAL/LAT / PROCEDURE REASON: Cough, unspecified type * * * * Physician Interpretation * * * * EXAMINATION: CHEST RADIOGRAPH (2 VIEW FRONTAL and LATERAL) TECHNOLOGIST PROVIDED HISTORY: Acute cough CLINICAL HISTORY: 44 years old Female with Cough, unspecified type MQ: [id number] EXAM DATE/TIME: 01/15/2025 12:09 PM COMPARISON: Chest radiograph(s) dated 06/29/2022 RESULT: Lines, tubes, and devices: None. Lungs and pleura: Elevation of the RIGHT hemidiaphragm and mild RIGHT basilar atelectasis/scarring. No consolidation, pleural effusion or pneumothorax. Cardiomediastinal silhouette: Normal cardiomediastinal silhouette. Bones and soft tissues: Mild endplate degenerative changes in the thoracic spine. Exaggerated kyphosis of the thoracolumbar junction similar to prior exam. IMPRESSION: No acute radiographic abnormality. Grassroots Organizer: PSCShira Transcribe Date/Time: Jan 15 2025 1:02P Dictated by : ANGEL OTOOLE DO This examination was interpreted and the report reviewed and electronically signed by: ANGEL OTOOLE DO on Jan 15 2025 1:04PM EST [id number] Normal [facility] CT CARDIAC SCORING WO IV CON TRASTon 11-30-2024 CT CARDIAC SCORING WO IV CONTRAST Interpreted By: Giovanni Álvarez, STUDY: CT CARDIAC SCORING WO IV CONTRAST; 11/30/2024 10:17 am INDICATION: Signs/Symptoms:SCREENIN G. COMPARISON: None. ACCESSION NUMBER(S): [id number] ORDERING CLINICIAN: JOHN HARVEY TECHNIQUE: Using prospective ECG gating, CT scan of the coronary arteries was performed without intravenous contrast. Coronary calcium scoring was performed according to the method of Agatston. FINDINGS: The score and distribution of calcium in the coronary arteries is as follows: LM: 0. LAD: 0. LCx: 0. RCA: 7. Total: 7. The visualized segments of the lungs are normally expanded. The visualized mid/lower ascending thoracic aorta measures 3.3 cm in diameter. The heart is normal in size. No pericardial effusion is present. No gross evidence of mediastinal or hilar lymphadenopathy is identified. IMPRESSION: 1. Coronary artery calcium score of 7*. *Coronary artery calcium scoring may be helpful in predicting the risk for future coronary heart disease events. According to the [place] [employer] Clinical Expert Consensus Task Force, such testing provides important prognostic information in patients with more than one coronary heart disease risk factor. The coronary artery calcium score correlates with the annual risk of a non-fatal myocardial infarction or coronary heart disease . Coronary artery score Annual Risk 0-99 0.4% 100-399 1.3% >400 2.4% These three breakpoints correspond to lower, intermediate and high risk states for future coronary events. Such information should be used, along with appropriate clinical judgment, to make decisions regarding the intensity of risk factor management strategies to treat blood lipids and to modify other non-lipid coronary risk factors. Reference: [place] P et al. Circulation. 2007; 115:402-426 MACRO: None. Signed by: Giovanni Álvarez 12/03/2024 8:23 AM Dictation workstation: [id number] [facility] CNOVon 11-05-2024 CNOV Office Visit (FAMPWS ) GINGER CHING ([id number]) 1980 F Date Time Provider Department 11/05/24 1:00 PM LAZARA MELENDEZ During your visit today, we recorded the following information about you: Temperature Pulse Blood pressure Weight 97 degrees 88/minute 132/82 98.9 kg Lazara Melendez APRN.CNP 11/05/2024 1:31 PM Signed This is a 44 year old female who presents today with: Patient presents with: Abscess: Boil HISTORY OF PRESENT ILLNESS: Ginger Ching is a 44 year old female. Patient presents with: Abscess: Boil Ginger Ching is a 44-year-old female with a history of COPD and recurrent pneumonia, presenting with a pilonidal cyst and respiratory symptoms. Pilonidal Cyst: - Recurrent pilonidal cysts, previously requiring incision and drainage in the ED. - Current cyst is about the size of a pea, located between the buttocks, causing significant pain. - Aggravated by menstruation and friction from sanitary pads. - Using sitz baths for relief. - Denies fever or chills. Respiratory Symptoms: - Cough, dyspnea, and wheezing x2 weeks. - Denies fever, chills, or sputum production. - No anosmia or ageusia. - Denies suspected COVID-19 infection; has had COVID-19 three times previously. - History of recurrent pneumonia, typically affecting the right upper lobe. - Denies nausea or emesis. COPD: - Reports increased dyspnea, attributing it to COPD. - Denies use of Trulicity. Depression: - Reports low mood, lack of motivation, and social withdrawal. - Current medication regimen includes duloxetine. Diabetes Mellitus: - Blood glucose levels reportedly better than what they were, averaging around 200 mg/dL. - CGM sensor malfunctioned yesterday; has not replaced it yet. - Current medications include Jardiance and Tradjenta. PAST MEDICAL HISTORY: PAST MEDICAL HISTORY Diagnosis Date Anxiety 12/29/2012 [...] Dust, Grass Pollen, Acetaminophen, Cardizem [Diltiazem], Percocet [Oxycodone-Acetaminophe n], and Zyrtec [Cetirizine Hcl] MEDICATIONS Current Outpatient Medications Medication Sig metoprolol succinate ER (TOPROL XL) 25 mg 24 hr tablet Take 25 mg by mouth once daily. gabapentin (NEURONTIN) 800 mg tablet Take 800 mg by mouth three times a day. pregabalin (LYRICA) 100 mg capsule Take 1 capsule by mouth two times a day for 90 days. insulin lispro (ADMELOG SOLOSTAR U-100 INSULIN) 100 unit/mL Inject 12 units with meals (TID) plus SS #1 (1 for 50 over 150 pre meal blood sugar) TDD 50 units ergocalciferol 50,000 unit capsule (VITAMIN D2, DRISDOL) Take 1 capsule by mouth one time a week. insulin glargine (LANTUS SOLOSTAR U-100 INSULIN) 100 unit/mL (3 mL) Inject 50 Units subcutaneously daily at bedtime. STIOLTO RESPIMAT 2.5-2.5 mcg/actuation inhaler Inhale 2 Puffs as instructed once daily. linaGLIPtin (TRADJENTA) 5 mg tab Take 1 tablet by mouth once daily. DULoxetine (CYMBALTA) 30 mg capsule Take 1 capsule by mouth once daily. blood sugar diagnostic (BLOOD GLUCOSE TEST) test strip Test blood sugar(s) 2 times daily. Dx: Type 2 DM - Uncontrolled E11.65 Insulin: Yes Blood-Glucose Meter,Continuous (FREESTYLE ANA 3 READER) [facility] Use to check blood sugar at least four (4) times daily. Blood-Glucose Sensor (FREESTYLE ANA 3 SENSOR) natalia Apply new sensor every fourteen (14) days to upper arm. empagliflozin (JARDIANCE) 25 mg tablet Take 1 tablet by mouth daily with breakfast. atorvastatin (LIPITOR) 20 mg tablet Take 1 tablet by mouth once daily. levonorgestrel (MIRENA) 21 mcg/24 hr (8 yrs) 52 mg IUD 1 Each by INTRAUTERINE route as directed. albuterol HFA (PROVENTIL HFA, VENTOLIN HFA) 90 mcg/actuation inhaler Inhale 2 Puffs as instructed every 4 hours as needed for wheezing/shortness of breath. dulaglutide (TRULICITY) 0.75 mg/0.5 mL pen injector Inject 0.75 mg subcutaneously one time a week. Insulin [place], Disposable, (SURE-FINE PEN NEEDLES) 31 gauge x 3/16 Daily injections - USES 4 pen needles daily with insulin Lancets Test blood sugar(s) two times daily. Dx: E11.65. Insulin: Yes No current facility-administered medications for this visit. FAMILY HISTORY Problem Relation Age of Onset Heart Mother Diabetes Mother Hypertension Mother Arthritis Mother Heart Father Arthritis Father Cancer (more content not included)... Normal [facility] 08-20-2024 [facility] Telephone (FAMPWS) HUMZA,GINGER Lezama ([id number]) 1980 F Date Time Provider Department 08/20/24 LAZARA MELENDEZ [facility] During your visit today, we recorded the following information about you: Charla Beard LPN 08/20/2024 3:09 PM Signed Pt calls to request a letter from pcp stating pt cannot work at this time because of neuropathy and medication changes. Pt reports she cannot stand for more than 5 minutes on her feet without falling. Pt walks with an assistive device. Pt's medications were recently changed from gabapentin to Lyrica. Pt advised pcp is out of the office this week. Pt is ok waiting until pcp returns to office to get letter. 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 LANDEN Galicia Jacqueline A, APRN.[facility] 08/27/2024 3:41 PM Signed Note written for 6 months Daja Nunez MA 08/27/2024 4:57 PM Signed Letter taken to medical records Left message for pt Daja Nunez MA August 27, 2024 4:56 PM Allergies As of Date: 08/20/2024 Noted Allergy Reaction CATS 10/23/2009 4 - Hives 9 - Itching DUST 10/23/2009 Comments: environmental GRASS POLLEN 10/23/2009 9 - Itching ACETAMINOPHEN 01/07/2022 8 - GI Upset CARDIZEM (DILTIAZEM) 07/25/2013 8 - GI Upset 11 - Vomiting PERCOCET (OXYCODONE-ACETAMINOPHE N)06/07/2016 11 - Vomiting ZYRTEC (CETIRIZINE HCL) 08/22/2013 4 - Hives Date Reviewed: 08/09/2024 Reviewed by: Daja Nunez MA - Fully Assessed Reason for Visit: letter [Other] Prescriptions as of 10/23/2024 - gabapentin (NEURONTIN) 800 mg tablet Take 800 mg by mouth three times a day. - dulaglutide (TRULICITY) 0.75 mg/0.5 mL pen injector Inject 0.75 mg subcutaneously one time a week. - pregabalin (LYRICA) 100 mg capsule Take 1 capsule by mouth two times a day for 90 days. - insulin lispro (ADMELOG SOLOSTAR U-100 INSULIN) 100 unit/mL Inject 12 units with meals (TID) plus SS #1 (1 for 50 over 150 pre meal blood sugar) TDD 50 units - Insulin [place], Disposable, (SURE-FINE PEN NEEDLES) 31 gauge x 3/16 Daily injections - USES 4 pen needles daily with insulin - ergocalciferol 50,000 unit capsule (VITAMIN D2, DRISDOL) Take 1 capsule by mouth one time a week. - insulin glargine (LANTUS SOLOSTAR U-100 INSULIN) 100 unit/mL (3 mL) Inject 50 Units subcutaneously daily at bedtime. - STIOLTO RESPIMAT 2.5-2.5 mcg/actuation inhaler Inhale 2 Puffs as instructed once daily. - linaGLIPtin (TRADJENTA) 5 mg tab Take 1 tablet by mouth once daily. - DULoxetine (CYMBALTA) 30 mg capsule Take 1 capsule by mouth once daily. - Lancets Test blood sugar(s) two times daily. Dx: E11.65. Insulin: Yes - blood sugar diagnostic (BLOOD GLUCOSE TEST) test strip Test blood sugar(s) 2 times daily. Dx: Type 2 DM - Uncontrolled E11.65 Insulin: Yes - Blood-Glucose Meter,Continuous (FREESTYLE ANA 3 READER) misc Use to check blood sugar at least four (4) times daily. - Blood-Glucose Sensor (FREESTYLE ANA 3 SENSOR) natalia Apply new sensor every fourteen (14) days to upper arm. - empagliflozin (JARDIANCE) 25 mg tablet Take 1 tablet by mouth daily with breakfast. - atorvastatin (LIPITOR) 20 mg tablet Take 1 tablet by mouth once daily. - levonorgestrel (MIRENA) 21 mcg/24 hr (8 yrs) 52 mg IUD 1 Each by INTRAUTERINE route as directed. - albuterol HFA (PROVENTIL HFA, VENTOLIN HFA) 90 mcg/actuation inhaler Inhale 2 Puffs as instructed every 4 hours as needed for wheezing/shortness of breath. 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] 03/07/2015 Lupus (HCC) [[id number]] 03/07/2015 Fibromyalgia [M79.7] 03/07/2015 Patellofemoral instability of [...] adult [R07.9] 05/01/2019 Mixed hyperlipidemia [E78.2] 10/01/2021 Degeneration of intervertebral disc of lumbar r*03/20/2024 Chronic thoracic spine pain [M54.6, G89.29] 03/20/2024 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] 03/20/2024 Encounter Status:Closed by CHARLA BEARD on 10/23/24 [facility] CNOVon 08-09-2024 CNOV Office Visit (FAMPWS ) GINGER CHING ([id number]) 1980 F Date Time Provider Department 08/09/24 9:20 AM [facility] During your visit today, we recorded the following information about you: Temperature Pulse Blood pressure Weight 97 degrees 91/minute 124/76 95.3 kg Lazara Melendez APRN.[facility] 08/09/2024 10:33 AM Signed This is a 44 year old female who presents today with: Patient presents with: Diabetes: Medication follow up HISTORY OF PRESENT ILLNESS: Ginger Ching is a 44 year old female. Patient presents with: Diabetes: Medication follow up Wants to lose weight. Diabetes is not well controlled. HgA1c 8.8 % Weight up. BMI 36.05 Would like to try Ozempic for both. No Hx of thyroid cancer or pancreatitis. Discussed risks of constipation, belching, and slowing of motility. Uses CGM- average about 225 Fibromyalgia- hurts constantly Legs and feet hurting Would like to come off gabapentin, not helping PAST MEDICAL HISTORY: PAST MEDICAL HISTORY Diagnosis Date Anxiety 12/29/2012 [...] Dust, Grass Pollen, Acetaminophen, Cardizem [Diltiazem], Percocet [Oxycodone-Acetaminophe n], and Zyrtec [Cetirizine Hcl] MEDICATIONS Current Outpatient Medications Medication Sig insulin lispro (ADMELOG SOLOSTAR U-100 INSULIN) 100 unit/mL Inject 12 units with meals (TID) plus SS #1 (1 for 50 over 150 pre meal blood sugar) TDD 50 units (Patient taking differently: Inject 8 units with meals (TID) plus SS #1 (1 for 50 over 150 pre meal blood sugar) TDD 50 units) Insulin [place], Disposable, (SURE-FINE PEN NEEDLES) 31 gauge x 3/16 Daily injections - USES 4 pen needles daily with insulin ergocalciferol 50,000 unit capsule (VITAMIN D2, DRISDOL) Take 1 capsule by mouth one time a week. gabapentin (NEURONTIN) 800 mg tablet Take 1 tablet by mouth three times a day for 180 days. insulin glargine (LANTUS SOLOSTAR U-100 INSULIN) 100 unit/mL (3 mL) Inject 50 Units subcutaneously daily at bedtime. STIOLTO RESPIMAT 2.5-2.5 mcg/actuation inhaler Inhale 2 Puffs as instructed once daily. linaGLIPtin (TRADJENTA) 5 mg tab Take 1 tablet by mouth once daily. DULoxetine (CYMBALTA) 30 mg capsule Take 1 capsule by mouth once daily. Lancets Test blood sugar(s) two times daily. Dx: E11.65. Insulin: Yes blood sugar diagnostic (BLOOD GLUCOSE TEST) test strip Test blood sugar(s) 2 times daily. Dx: Type 2 DM - Uncontrolled E11.65 Insulin: Yes Blood-Glucose Meter,Continuous (FREESTYLE ANA 3 READER) misc Use to check blood sugar at least four (4) times daily. Blood-Glucose Sensor (FREESTYLE ANA 3 SENSOR) natalia Apply new sensor every fourteen (14) days to upper arm. empagliflozin (JARDIANCE) 25 mg tablet Take 1 tablet by mouth daily with breakfast. atorvastatin (LIPITOR) 20 mg tablet Take 1 tablet by mouth once daily. levonorgestrel (MIRENA) 21 mcg/24 hr (8 yrs) 52 mg IUD 1 Each by INTRAUTERINE route as directed. albuterol HFA (PROVENTIL HFA, VENTOLIN HFA) 90 mcg/actuation inhaler Inhale 2 Puffs as instructed every 4 hours as needed for wheezing/shortness of breath. No current facility-administered medications for this visit. FAMILY HISTORY Problem Relation Age of Onset Heart Mother Diabetes Mother Hypertension Mother Arthritis Mother Heart Father Arthritis Father Cancer Maternal Grandmother stomach cancer. Social History Tobacco Use Smoking status: Every Day Current packs/day: 0.50 Average packs/day: 0.5 packs/day for 20.0 years (10.0 ttl pk-yrs) Types: Cigarettes Smokeless tobacco: Never Substance Use Topics Alcohol use: Yes Comment: occ Drug use: No EXAM: BP 124/76 Pulse 91 Temp 36.1 ?C (97 ?F) (Left Tympanic) Wt 95.3 kg (210 lb) LMP 07/03/2024 (Within Days) SpO2 96% BMI 36.05 kg/m? PHYSICAL EXAM: Physical Exam Vitals reviewed. Constitutional: Appearance: Normal appearance. She is obese. Cardiovascular: Rate and Rhythm: Normal rate and regular rhythm. Pulses: Normal pulses. Heart sounds: Normal heart sounds. Pulmonary: Effort: Pulmonary effort is normal. Breath sounds: Normal breath sounds. Abdominal: General: Bowel sounds are normal. Palpations: Abdomen is soft. Tenderness: There is no abdominal tenderness. There is no guarding. Musculoskeletal: General: Normal range of mo (more content not included)... [facility] HUMZA,GINGER Lezama ([id number]) 1980 F Date Time Provider Department 08/09/24 LAZARA MELENDEZ During your visit today, we recorded the following information about you: Deandra WigginsLANDEN 08/09/2024 10:55 AM Signed Electronic PA rec'd and completed for Deandra AguileraLANDEN 08/10/2024 8:44 AM Signed This was denied with pts insurance. See formulary options. Note from payer: Coverage is provided when the member meets all the followin. Member has a history of at least 120 days of therapy with THREE preferred medications in this UPDL category. ONE of the 120 day trials must be with a drug in the same drug class, Victoza (18 MG/3 ML PEN) (Brand name is preferred by the plan) or Trulicity (0.75 mg, 1.5 mg, 3 mg, and 4.5 mg). Other trials may include but are not limited to: Farxiga 5 and 10 mg (Brand name is preferred by the plan), Glimepiride, Glipizide, Januvia, Jardiance 10 and 25 mg and Metformin IR 500 mg, 850 mg, 1000 mg and ER (generics of Glucophage); The trial of tradjenta was noted; 2. Member has had an inadequate clinical response (the inability to reach A1C goal (less than 7%) after at least 120 days of current regimen, with use of two or more drugs concomitantly per ADA ([place] Diabetes Association) guidelines and, 3. Member has documented adherence and appropriate dose escalation (must achieve maximum recommended dose or document that maximum recommended dose is not tolerated or is clinically inappropriate) and, 4. Documentation includes a patient specific A1C goal if less than 7% and must include current A1C (within the last 6 months). The [place] Policy for Medical Necessity as posted on the [facility] website and [facility] Preferred Drug List criteria were reviewed and per [place] Administrative Code Rule 5160-1-01 (C) and (B), a medically necessary service must include: generally accepted standards of medical practice, be clinically appropriate in administration, treatment and outcome and be the lowest cost alternative to effectively treat the condition. Please contact your provider to assist you with other treatment options that might be covered under your benefit package, or other services that might be available through the community. Payer: [facility] Lazara Melendez APRN.[facility] 08/13/2024 7:58 AM Signed Please let patient know that Ozempic is not covered but Trulicity is. I have ordered Trulicity 0.75 mg every week. This medication is in the same class. We will see how she is doing with weight and blood sugars at her next appointment. Daja Nunez MA 08/13/2024 11:54 AM Signed Patient notified of medication change and is agreeable. Daja Nunez MA August 13, 2024 11:49 AM Allergies As of Date: 08/09/2024 Noted Allergy Reaction CATS 10/23/2009 4 - Hives 9 - Itching DUST 10/23/2009 Comments: environmental GRASS POLLEN 10/23/2009 9 - Itching ACETAMINOPHEN 01/07/2022 8 - GI Upset CARDIZEM (DILTIAZEM) 07/25/2013 8 - GI Upset 11 - Vomiting PERCOCET (OXYCODONE-ACETAMINOPHE N)06/07/2016 11 - Vomiting ZYRTEC (CETIRIZINE HCL) 08/22/2013 4 - Hives Date Reviewed: 08/09/2024 Reviewed by: Daja Nunez MA - Fully Assessed Reason for Visit: Insurance Authorization [[id number]] Primary Visit Diagnosis:Type 2 diabetes mellitus with hyperglycemia, with long-term current use of insulin ([facility]) [E11.65, Z79.4] Order(s):dulaglutide (TRULICITY) 0.75 mg/0.5 mL pen injectorInject 0.75 mg subcutaneously one time a week.Disp: 2 mLRfl: 0 Prescriptions as of 08/13/2024 - dulaglutide (TRULICITY) 0.75 mg/0.5 mL pen injector Inject 0.75 mg subcutaneously one time a week. - pregabalin (LYRICA) 100 mg capsule Take 1 capsule by mouth two times a day for 90 days. - insulin lispro (ADMELOG SOLOSTAR U-100 INSULIN) 100 unit/mL Inject 12 units with meals (TID) plus SS #1 (1 for 50 over 150 pre meal blood sugar) TDD 50 units - Insulin [place], Disposable, (SURE-FINE PEN NEEDLES) 31 gauge x 3/16 Daily injections - USES 4 pen needles daily with insulin - ergocalciferol 50,000 unit capsule (VITAMIN D2, DRISDOL) Take 1 capsule by mouth one time a week. - insulin glargine (LANTUS SOLOSTAR U-100 INSULIN) 100 unit/mL (3 mL) Inject 50 Units subcutaneously daily at bedtime. - STIOLTO RESPIMAT 2.5-2.5 mcg/actuation inhaler Inhale 2 Puffs as instructed once daily. - linaGLIPtin (TRADJENTA) 5 mg tab Take 1 tablet by mouth once daily. - DULoxetine (CYMBALTA) 30 mg capsule Take 1 capsule by mouth once daily. - Lancets Test blood sugar(s) two times daily. Dx: E11.65. Insulin: Yes - blood sugar diagnostic (BLOOD GLUCOSE TEST) test strip Test blood sugar(s) 2 times daily. Dx: Type 2 DM - Uncontrolled E11.65 Insulin: Yes - Blood-Glucose Meter,Continuous (FREESTYLE ANA 3 READER) [facility] Use to check blood sugar at least four (4) times estephania (more content not included)... Normal [facility] 07-14-2024 ALINA Telephone (STED) GINGER CHING ([id number]) 1980 F Date Time Provider Department 07/14/24 ADRIENNE LOCKE During your visit today, we recorded the following information about you: Adrienne Locke APRN.[facility] 07/14/2024 11:42 AM Signed Please call patient. Her antibodies are negative She is confirmed TYPE 2 diabetes - this is managed with lifestyle modifications - diet, exercise, weight loss AND medications. I would like for her to see the ENDO [employer] SALES ESTIMATOR ([facility]) CONSULT placed for her Isadora Quintero MA 07/16/2024 3:13 PM Signed Phoned patient as requested,relayed providers message as below. Patient reports understanding and had no further questions. VAUGHN Serna Jennifer, MA 07/16/2024 3:14 PM Signed Please help patient schedule with mold sheet cleaner. VAUGHN Serna Stephanie 07/17/2024 9:09 AM Signed [facility] Allergies As of Date: 07/14/2024 Noted Allergy Reaction CATS 10/23/2009 4 - Hives 9 - Itching DUST 10/23/2009 Comments: environmental GRASS POLLEN 10/23/2009 9 - Itching ACETAMINOPHEN 01/07/2022 8 - GI Upset CARDIZEM (DILTIAZEM) 07/25/2013 8 - GI Upset 11 - Vomiting PERCOCET (OXYCODONE-ACETAMINOPHE N)06/07/2016 11 - Vomiting ZYRTEC (CETIRIZINE HCL) 08/22/2013 4 - Hives Date Reviewed: 07/11/2024 Reviewed by: Isadora Quintero MA - Fully Assessed Reason for Visit: Results [95] Primary Visit Diagnosis:Poorly controlled type 2 diabetes mellitus (HCC) [E11.65] Order(s):ENDOCRINOLOGY DIETITIAN VISIT (MNT) [[id number]] Order #: [id number]: 4 FUTURE Prescriptions as of 07/17/2024 - insulin lispro (ADMELOG SOLOSTAR U-100 INSULIN) 100 unit/mL Inject 12 units with meals (TID) plus SS #1 (1 for 50 over 150 pre meal blood sugar) TDD 50 units - Insulin [place], Disposable, (SURE-FINE PEN NEEDLES) 31 gauge x 3/16 Daily injections - USES 4 pen needles daily with insulin - ergocalciferol 50,000 unit capsule (VITAMIN D2, DRISDOL) Take 1 capsule by mouth one time a week. - gabapentin (NEURONTIN) 800 mg tablet Take 1 tablet by mouth three times a day for 180 days. - insulin glargine (LANTUS SOLOSTAR U-100 INSULIN) 100 unit/mL (3 mL) Inject 50 Units subcutaneously daily at bedtime. - STIOLTO RESPIMAT 2.5-2.5 mcg/actuation inhaler Inhale 2 Puffs as instructed once daily. - linaGLIPtin (TRADJENTA) 5 mg tab Take 1 tablet by mouth once daily. - DULoxetine (CYMBALTA) 30 mg capsule Take 1 capsule by mouth once daily. - Lancets Test blood sugar(s) two times daily. Dx: E11.65. Insulin: Yes - blood sugar diagnostic (BLOOD GLUCOSE TEST) test strip Test blood sugar(s) 2 times daily. Dx: Type 2 DM - Uncontrolled E11.65 Insulin: Yes - Blood-Glucose Meter,Continuous (FREESTYLE ANA 3 READER) [facility] Use to check blood sugar at least four (4) times daily. - Blood-Glucose Sensor (FREESTYLE ANA 3 SENSOR) natalia Apply new sensor every fourteen (14) days to upper arm. - empagliflozin (JARDIANCE) 25 mg tablet Take 1 tablet by mouth daily with breakfast. - atorvastatin (LIPITOR) 20 mg tablet Take 1 tablet by mouth once daily. - levonorgestrel (MIRENA) 21 mcg/24 hr (8 yrs) 52 mg IUD 1 Each by INTRAUTERINE route as directed. - albuterol HFA (PROVENTIL HFA, VENTOLIN HFA) 90 mcg/actuation inhaler Inhale 2 Puffs as instructed every 4 hours as needed for wheezing/shortness of breath. 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] 03/07/2015 Lupus (HCC) [[id number]] 03/07/2015 Fibromyalgia [M79.7] 03/07/2015 Patellofemoral instability of [...] adult [R07.9] 05/01/2019 Mixed hyperlipidemia [E78.2] 10/01/2021 Degeneration of intervertebral disc of lumbar r*03/20/2024 Chronic thoracic spine pain [M54.6, G89.29] 03/20/2024 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] 03/20/2024 Encounter Status:Closed by ADRIENNE LOCKE on 07/14/24 [facility] CNOVon 07-11-2024 CNOV Office Visit (ENWSTR ) GINGER CHING ([id number]) 1980 F Date Time Provider Department 07/11/24 1:15 PM ADRIENNE LOCKE ENWSTR During your visit today, we recorded the following information about you: Temperature Pulse Blood pressure Weight 97.8 degrees 78/minute 120/76 99.4 kg Last Period 07/03/24 Isadora Quintero MA 07/11/2024 2:29 PM Signed Adrienne Locke APRN.[facility] 07/11/2024 2:29 PM Signed NEW CONSULT OFFICE PROGRESS NOTE Reason for Consultation: DM Type 2 Referring Physician: SELF My final recommendations will be communicated back to the requesting physician by way of shared Medical record or letter via US mail. HISTORY OF PRESENT ILLNESS; Ginger Ching is a 43 year old FEMALE is presenting as a new patient to me regarding DM Type 2. She was initially diagnosed with diabetes in 12+ years (2010). Reports had FRANCISCO 3 times [place] that she was able to control her blood sugars in the past, but since FRANCISCO has noticed that her blood sugars are much more uncontrolled without any changes in diet/activity She does have a family history of diabetes mellitus in her Mother, maternal grandparents, uncles (All DM2) . Patient does not know her biological father nor health hx The patient has no known microvascular complications of diabetes. Ginger has no know macrovascular complications of diabetes.. DM Education No Knows how to carb count No DIETARY HISTORY: Breakfast: SKIP and will have a cup of coffee ICE COFFEE SWEETENED (pre made ice cofffee) Lunch if hungry will snack on toast OR fruit (KIWI OR CANTELOPE) will occ have watermellon, usually strawberries will have diet soda OR bagel Dinner has diet soda and will have spaghetti OR PIZZA OR will cook protein/starch (chicken mashed potatoe w corn usually no vegetables, will have green beans or corn, sometimes brocolli Snacks may have a small portion of chips or popcorn Drinks coffee, diet soda, has one glass of water daily at bedtime Exercise: takes care of her disabled daughter CURRENT DM MEDS JARDIANCE 25 mcg daily LANTUS 50 units TRADJENTA 5 mg 1 tab daily Previous TRULICITY, - muscle pain in arms SMBG Type of Monitor: Other FREESTYLE ANA 3 Hypoglycemia: no Diet: as per above Exercise: none DM REVIEW OF SYSTEMS Last Eye Exam : due Last Podiatry Exam: Cardiorespiratory: negative, denies chest pain, pressure Claudication: no Dyslipidemia: Yes, controlled on medication High Blood Pressure: Yes, controlled on medication CURRENT LABS Latest Ref Rng 12/15/2023 06/12/2024 Glucose 74 - 99 mg/dL 225 (H) BUN 7 - 21 mg/dL 13 Creatinine 0.58 - 0.96 mg/dL 0.58 Sodium 136 - 144 mmol/L 138 Potassium 3.7 - 5.1 mmol/L 4.7 Chloride 98 - 107 mmol/L 103 CO2 22 - 30 mmol/L 24 Anion Gap 8 - 15 mmol/L 11 eGFR >=60 mL/min/1.73m? 115 Total Cholesterol, Nonfasting <200 mg/dL 161 Triglycerides, Nonfasting <150 mg/dL 113 HDL Cholesterol, Nonfasting >39 mg/dL 36 (L) LDL Cholesterol, Nonfasting <100 mg/dL 102 (H) Non HDL Cholesterol, Nonfasting <130 mg/dL 125 VLDL Cholesterol, Nonfasting <30 mg/dL 23 Total Chol/HDL Ratio, Nonfasting <5.10 mg/dL 4.47 LDL/HDL Ratio, Nonfasting <2.54 mg/dL 2.83 (H) Creatinine, Ur Random (UCRR) 20.0 - 300.0 mg/dL 163.1 Albumin, Urine Random mg/L 65.0 Albumin/Creat Ratio <30 mg/g 40 (H) Hemoglobin A1C 4.3 - 5.6 % 10.4 (H) 8.8 (H) Estimated Average Glucose mg/dL 252 206 Vitamin B12 232 - 1,245 pg/mL 396 Magnesium 1.7 - 2.3 mg/dL 2.0 TSH 0.270 - 4.200 mIU/L 0.584 Vitamin D 25 Hydroxy 31.0 - 80.0 ng/mL 11.2 (L) Legend: (H) High (L) Low Recent Labs 07/26/17 1701 10/24/17 1126 05/16/18 1257 04/27/22 0917 04/27/22 0924 07/01/22 1139 12/15/23 1335 06/12/24 1423 06/12/24 1425 ALT -- 19 < > 10 -- 18 12 17 -- AST -- 18 < > 16 -- 18 16 17 -- UCRR 152.2 -- -- -- 54.7 -- -- -- 163.1 UALBR 15.9 -- -- -- 27.7 -- -- -- 65.0 UALBCR 10 -- -- -- 51* -- -- -- 40* TSH -- 0.711 -- -- -- -- 0.245* 0.584 -- TPROT -- 7.3 < > 8.3* -- 7.4 7.1 7.0 -- ALB -- 3.7* < > 2.9* -- 3.7* 3.8* 3.9 -- CA -- 9.2 < > 9.5 -- 9.2 10.0 8.9 -- TBILI -- <0.2* < > 0.2 -- 0.2 0.2 0.3 -- ALKPHOS -- 110 < > 208* -- 93 103 96 -- GLUC -- 416* < > 494* -- 149* 395* 225* -- BUN -- 10 < > 12 -- 18 18 13 -- CREAT -- 0.60 < > 0.87 -- 0.72 0.86 0.58 -- NA -- 135* < > 132* -- 138 137 138 -- K -- 4.4 < > 4.9 -- 3.7 5.0 4.7 -- CHLOR -- 101 < > 95* -- 104 99 103 -- CO2 -- 20* < > 27 -- 23 25 24 -- ANION -- 14 < > 10 -- 11 13 11 -- EGFROTH -- >60 < > 86 -- 108 86 115 -- HBA1C -- 10.0* < > 10.0* -- -- 10.4* 8.8* -- B12 -- -- -- -- -- -- -- 396 -- < > = values in this interval not displayed. Recent Labs 10/24/17 1126 05/16/18 1257 05/01/19 0627 05/09/19 1608 03/29/20 0818 07/03/20 0943 04/27/22 0917 12/15/23 1335 06/12/24 1423 TG 171* -- 187* -- 185* -- -- 220* 113 CHOL 161 (more content not included)... Normal [facility] GAD65 Ab Ser-aCncon 07-12-19 25 Glutamate decarboxylase 65 Ab Qn (S) <5.0 Normal <=5.0 [facility] Comment on above: Order Comment: Speci men Type: BLOOD SPECIMENOrdering Facility: [facility] Address: [address] [place] [address] Result Comment: Anti -glutamic acid decarboxylase antibody (GAD65) test usually in conjunction with another test such as IA-2 antibody is used as an aid in establishing the autoimmune nature of previously-diagnosed type I diabetes mellitus or in predicting of progression to type I diabetes mellitus in patients with certain autoimmune diseases including autoimmune gastritis among others. It is also used as an aid in diagnosis of stiff person syndrome and certain autoimmune nervous system diseases. Clinical correlation is required. Performed By: #### 1 3926-1 ####[facility] LABCLIA [id number] [place] [address] [place] Glutamate decarboxylase 65 A b Qn (S)on 07-11-2024 GLUTAMIC ACID DECARBOXYLAS AB QUALITATIVE Negative Normal Negative [facility] Comment on above: Order Comment: Speci men Type: BLOOD SPECIMENOrdering Facility: [facility] Address: [address] [place] [address] Performed By: #### 1 3926-1 ####[facility] LABCLIA [id number] [address] STATES OF [facility] ISLET CELL ABon 07-11-2024 ISLET CELL AB <1:4 Normal <1:4 [facility] Comment on above: Order Comment: Speci men Type: BLOOD SPECIMEN Ordering Facility: [facility] Address: [address] [place] [address] Result Comment: INTE RPRETIVE INFORMATION: Islet Cell Ab, IgG Islet cell antibodies (ICAs) are associated with type 1 diabetes (TID), an autoimmune endocrine disorder. ICAs may be present years before the onset of clinical symptoms. To calculate Juvenile Diabetes Foundation (JDF) units: multiply the titer x 5 (1:8 8 x 5 = 40 JDF Units). This test was developed and its performance characteristics determined by [facility]. It has not been cleared or approved by the [place] Food and Drug Administration. This test was performed in a CLIA certified laboratory and is intended for clinical purposes. Performed By: [facility] [address] [place] [address] Supervisor Multifocal Lens: Kyler Davis MD, PhD CLIA Number: [id number] Performed By: #### I SLET #### [facility] Gertrude CLIA [id number] [address] [place] [address] CNPNon 06-14-2024 CNPN Telephone ([facility]) RULEGINGER ([id number]) 1980 F Date Time Provider Department 06/14/24 [facility] During your visit today, we recorded the following information about you: Lazara Melendez, LAURA.[facility] 06/14/2024 9:54 AM Signed Please let patient know that her vitamin D level is very low at 11.2. I will have her take vitamin D3-ergocalciferol, once a week for 12 weeks and then once a month. This should help her body aches. Labs look much better and blood sugars are improving. Hemoglobin A1c now down to 8.8. I still want you to see endocrinology to help us further manage diabetes but you are doing great. Urine for microalbumin creatinine ratio is improving with Jardiance. Daja Nunez MA 06/14/2024 10:51 AM Signed Patient was made aware of the results. Patient verbalizes understanding. Daja Nunez Ma Allergies As of Date: 06/14/2024 Noted Allergy Reaction CATS 10/23/2009 4 - Hives 9 - Itching DUST 10/23/2009 Comments: environmental GRASS POLLEN 10/23/2009 9 - Itching ACETAMINOPHEN 01/07/2022 8 - GI Upset CARDIZEM (DILTIAZEM) 07/25/2013 8 - GI Upset 11 - Vomiting PERCOCET (OXYCODONE-ACETAMINOPHE N)06/07/2016 11 - Vomiting ZYRTEC (CETIRIZINE HCL) 08/22/2013 4 - Hives Date Reviewed: 05/29/2024 Reviewed by: Virginia Garcia MA - Fully Assessed Order(s):ergocalciferol 50,000 unit capsule (VITAMIN D2, DRISDOL)Take 1 capsule by mouth one time a week.Disp: 12 capsuleRfl: 3 Prescriptions as of 06/14/2024 - ergocalciferol 50,000 unit capsule (VITAMIN D2, DRISDOL) Take 1 capsule by mouth one time a week. - gabapentin (NEURONTIN) 800 mg tablet Take 1 tablet by mouth three times a day for 180 days. - insulin glargine (LANTUS SOLOSTAR U-100 INSULIN) 100 unit/mL (3 mL) Inject 50 Units subcutaneously daily at bedtime. - STIOLTO RESPIMAT 2.5-2.5 mcg/actuation inhaler Inhale 2 Puffs as instructed once daily. - linaGLIPtin (TRADJENTA) 5 mg tab Take 1 tablet by mouth once daily. - DULoxetine (CYMBALTA) 30 mg capsule Take 1 capsule by mouth once daily. - tiZANidine (ZANAFLEX) 4 mg tablet Take 1 tablet by mouth every 8 hours as needed (muscle spasms). - Lancets Test blood sugar(s) two times daily. Dx: E11.65. Insulin: Yes - blood sugar diagnostic (BLOOD GLUCOSE TEST) test strip Test blood sugar(s) 2 times daily. Dx: Type 2 DM - Uncontrolled E11.65 Insulin: Yes - flash glucose scanning reader (FREESTYLE ANA 2 READER) 1 Each every hour as needed. - Blood-Glucose Meter,Continuous (FREESTYLE ANA 3 READER) [facility] Use to check blood sugar at least four (4) times daily. - Blood-Glucose Sensor (FREESTYLE ANA 3 SENSOR) natalia Apply new sensor every fourteen (14) days to upper arm. - empagliflozin (JARDIANCE) 25 mg tablet Take 1 tablet by mouth daily with breakfast. - atorvastatin (LIPITOR) 20 mg tablet Take 1 tablet by mouth once daily. - flash glucose sensor (FREESTYLE ANA 2 SENSOR) kit 2 Each three times a day as needed. - levonorgestrel (MIRENA) 21 mcg/24 hr (8 yrs) 52 mg IUD 1 Each by INTRAUTERINE route as directed. - albuterol HFA (PROVENTIL HFA, VENTOLIN HFA) 90 mcg/actuation inhaler Inhale 2 Puffs as instructed every 4 hours as needed for wheezing/shortness of breath. 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 Encounter Status:Closed by DAJA NUNEZ on 06/14/24 Normal [facility] 25(OH)D3 [facility] 25-hydroxyvitamin D3 [Mass/Vol] 11.2 ng/mL Low 31.0-80.0 [facility] Comment on above: Order Comment: Speci men Type: BLOOD SPECIMENOrdering Facility: [facility] Address: [address] [place] [address] Result Comment: Clas sification of 25 [place] Vitamin D status: Deficiency/Insufficiency: < or = 30 ng/ml. Sufficiency/Optimal Levels: 31-80 ng/mL Toxicity: > 100 ng/mL. Test performed by chemiluminescent immunoassay. Performed By: #### 1 989-3 ####[facility] LABCLIA [id number] [place] [address] [place] ALBUMIN/CREATININE RATIO, UR INEon 06-12-2024 Albumin DL <= 20 mg/L (U) [Mass/Vol] 65.0 mg/L Normal [facility] Comment on above: Order Comment: Speci men Type: URINE SPECIMENOrdering Facility: [facility] Address: [address] [place] [address] Performed By: #### U ACR ####[facility] LABIA [id number] [place] [address] [place] Albumin/Creatinine (U) [Mass ratio] 40 mg/g High <30 [facility] Comment on above: Order Comment: Speci men Type: URINE SPECIMENOrdering Facility: [facility] Address: [address] [place] [address] Result Comment: Adul t Male and Female Nephrotic Criteria: <30 mg/g is considered normal to mildly increased 30-300 mg/g is considered moderately increased >300 mg/g is considered severely increased KDIGO. (2013). KDIGO 2012 Clinical Practice Guideline for the Evaluation and Management of Chronic Kidney Disease. Official Journal of the International Society of Nephrology, 3(1), 1-150. Performed By: #### U ACR ####[facility] LABCLIA [id number] [place] [id number] [place] Creatinine (U) [Mass/Vol] 163.1 mg/dL Normal 20.0-300.0 [facility] Comment on above: Order Comment: Speci men Type: URINE SPECIMENOrdering Facility: [facility] Address: [address] [place] [address] Performed By: #### U ACR ####[facility] LABCLIA [id number] [place] [address] [place] CBC W Auto Differential pane l (Bld)on 06-12-2024 Basophils (Bld) [#/Vol] 0.06 10*3/uL Normal <0.11 [facility] Comment on above: Order Comment: Speci men Type: BLOOD SPECIMENOrdering Facility: [facility] Address: [address] [place] [address] Performed By: #### 5 7021-8 ####[facility] LABCLIA [id number] [place] [address] [place] Basophils/100 WBC (Bld) 0.9 % Normal [facility] Comment on above: Order Comment: Speci men Type: BLOOD SPECIMENOrdering Facility: [facility] Address: [address] [place] [address] Performed By: #### 5 7021-8 ####[facility] LABCLIA [id number] [place] [address] [place] Differential cell count method Nom (Bld) Auto Normal [facility] Comment on above: Order Comment: Speci men Type: BLOOD SPECIMENOrdering Facility: [facility] Address: [address] [place] [address] Performed By: #### 5 7021-8 ####[facility] LABCLIA [id number] [place] [address] [place] Eosinophils (Bld) [#/Vol] 0.15 10*3/uL Normal <0.46 [facility] Comment on above: Order Comment: Speci men Type: BLOOD SPECIMENOrdering Facility: [facility] Address: [address] [place] [address] Performed By: #### 5 7021-8 ####[facility] LABCLIA [id number] [place] [address] [place] Eosinophils/100 WBC (Bld) 2.1 % Normal [facility] Comment on above: Order Comment: Speci men Type: BLOOD SPECIMENOrdering Facility: [facility] Address: [address] [place] [address] Performed By: #### 5 7021-8 ####[facility] LABCLIA [id number] [place] [address] [place] Erythrocyte distribution width (RBC) [Ratio] 13.0 % Normal 11.5-15.0 [facility] Comment on above: Order Comment: Speci men Type: BLOOD SPECIMENOrdering Facility: [facility] Address: [address] [place] [address] Performed By: #### 5 7021-8 ####[facility] LABCLIA [id number] [place] [address] [place] Hematocrit (Bld) [Volume fraction] 47.9 % High 36.0-46.0 [facility] Comment on above: Order Comment: Speci men Type: BLOOD SPECIMENOrdering Facility: [facility] Address: [address] [place] [address] Performed By: #### 5 7021-8 ####[facility] LABCLIA [id number] [place] [address] [place] Hemoglobin (Bld) [Mass/Vol] 15.8 g/dL High 11.5-15.5 [facility] Comment on above: Order Comment: Speci men Type: BLOOD SPECIMENOrdering Facility: [facility] Address: [address] [place] [address] Performed By: #### 5 7021-8 ####[facility] LABCLIA [id number] [place] [address] [place] Immature granulocytes (Bld) [#/Vol] 10*3/uL Normal <0.10 [facility] Comment on above: Order Comment: Speci men Type: BLOOD SPECIMENOrdering Facility: [facility] Address: [address] [place] [address] Performed By: #### 5 7021-8 ####[facility] LABCLIA [id number] [place] [address] [place] Immature granulocytes/100 WBC (Bld) 0.3 % Normal [facility] Comment on above: Order Comment: Speci men Type: BLOOD SPECIMENOrdering Facility: [facility] Address: [address] [place] [address] Performed By: #### 5 7021-8 ####[facility] LABIA [id number] [place] [address] [place] Lymphocytes (Bld) [#/Vol] 1.91 10*3/uL Normal 1.00-4.00 [facility] Comment on above: Order Comment: Speci men Type: BLOOD SPECIMENOrdering Facility: [facility] Address: [address] [place] [address] Performed By: #### 5 7021-8 ####[facility] LABIA [id number] [address] [place] Lymphocytes/100 WBC (Bld) 27.2 % Normal [facility] Comment on above: Order Comment: Speci men Type: BLOOD SPECIMENOrdering Facility: [facility] Address: [address] [place] [address] Performed By: #### 5 7021-8 ####[facility] LABIA [id number] [place] [address] [place] MCH (RBC) [Entitic mass] 30.0 pg Normal 26.0-34.0 [facility] Comment on above: Order Comment: Speci men Type: BLOOD SPECIMENOrdering Facility: [facility] Address: [address] [place] [address] Performed By: #### 5 7021-8 ####[facility] LABCLIA [id number] [place] [address] [place] MCHC (RBC) [Mass/Vol] 33.0 g/dL Normal 30.5-36.0 [facility] Comment on above: Order Comment: Speci men Type: BLOOD SPECIMENOrdering Facility: [facility] Address: [address] [place] [address] Performed By: #### 5 7021-8 ####[facility] LABCLIA [id number] [place] [address] [place] MCV (RBC) [Entitic vol] 90.9 fL Normal 80.0-100.0 [facility] Comment on above: Order Comment: Speci men Type: BLOOD SPECIMENOrdering Facility: [facility] Address: [address] [place] [address] Performed By: #### 5 7021-8 ####[facility] LABIA [id number] [place] [address] [place] Monocytes (Bld) [#/Vol] 0.49 10*3/uL Normal <0.87 [facility] Comment on above: Order Comment: Speci men Type: BLOOD SPECIMENOrdering Facility: [facility] Address: [address] [place] [address] Performed By: #### 5 7021-8 ####[facility] LABIA [id number] [place] [address] [place] Monocytes/100 WBC (Bld) 7.0 % Normal [facility] Comment on above: Order Comment: Speci men Type: BLOOD SPECIMENOrdering Facility: [facility] Address: [address] [place] [address] Performed By: #### 5 7021-8 ####[facility] LABCLIA [id number] [place] [address] [place] Neutrophils (Bld) [#/Vol] 4.38 10*3/uL Normal 1.45-7.50 [facility] Comment on above: Order Comment: Speci men Type: BLOOD SPECIMENOrdering Facility: [facility] Address: [address] [place] [address] Performed By: #### 5 7021-8 ####[facility] LABCLIA [id number] [place] [address] [place] Neutrophils/100 WBC (Bld) 62.5 % Normal [facility] Comment on above: Order Comment: Speci men Type: BLOOD SPECIMENOrdering Facility: [facility] Address: [address] [place] [address] Performed By: #### 5 7021-8 ####[facility] LABCLIA [id number] [place] [address] [place] Nucleated RBC (Bld) [#/Vol] 10*3/uL Normal <0.01 [facility] Comment on above: Order Comment: Speci men Type: BLOOD SPECIMENOrdering Facility: [facility] Address: [address] [place] [address] Performed By: #### 5 7021-8 ####[facility] LABIA [id number] [place] [address] [place] Nucleated RBC/100 WBC (Bld) [Ratio] 0.0 /100 WBC Normal [facility] Comment on above: Order Comment: Speci men Type: BLOOD SPECIMENOrdering Facility: [facility] Address: [address] [place] [address] Performed By: #### 5 7021-8 ####[facility] LABCLIA [id number] [place] [address] [place] Platelet mean volume (Bld) [Entitic vol] 10.5 fL Normal 9.0-12.7 [facility] Comment on above: Order Comment: Speci men Type: BLOOD SPECIMENOrdering Facility: [facility] Address: [address] [place] [address] Performed By: #### 5 7021-8 ####[facility] LABIA [id number] [place] [address] [place] Platelets (Bld) [#/Vol] 198 10*3/uL Normal 150-400 [facility] Comment on above: Order Comment: Speci men Type: BLOOD SPECIMENOrdering Facility: [facility] Address: [address] [place] [address] Performed By: #### 5 7021-8 ####[facility] [id number] [place] [address] [place] RBC (Bld) [#/Vol] 5.27 10*6/uL High 3.90-5.[address] [facility] Comment on above: Order Comment: Speci men Type: BLOOD SPECIMENOrdering Facility: [facility] Address: [address] [place] [address] Performed By: #### 5 7021-8 ####[facility] [id number] [place] [address] [place] WBC (Bld) [#/Vol] 7.01 10*3/uL Normal 3.70-11.[address] [facility] Comment on above: Order Comment: Speci men Type: BLOOD SPECIMENOrdering Facility: [facility] Address: [address] [place] [address] Performed By: #### 5 7021-8 ####[facility] [id number] [place] [address] [place] CNOVon 06-12-2024 CNOV Office Visit (FAMPWS ) GINGER [id number]) 1980 F Date Time Provider Department 06/12/24 1:20 PM LAZARA MELENDEZ During your visit today, we recorded the following information about you: Temperature Pulse Blood pressure Weight 98.4 degrees 89/minute 128/70 99.8 kg Lazara Melendez APRN.CNP 06/12/2024 1:48 PM Signed This is a 43 year old female who presents today with: Patient presents with: Follow Up: pneumonia HISTORY OF PRESENT ILLNESS: Ginger Ching is a 43 year old female. Patient presents with: Follow Up: pneumonia Last couple days, pain between shoulder blades. BSS running high. Glucometer quit working. 20-30 min. after eating 357; 250 before meals Uses CGM- very helpful but BSS doing better Takes gabapentin for neuropathy PAST MEDICAL HISTORY: PAST MEDICAL HISTORY Diagnosis Date Anxiety 12/29/2012 [...] Dust, Grass Pollen, Acetaminophen, Cardizem [Diltiazem], Percocet [Oxycodone-Acetaminophe n], and Zyrtec [Cetirizine Hcl] MEDICATIONS Current Outpatient Medications Medication Sig Lancets Test blood sugar(s) two times daily. Dx: E11.65. Insulin: Yes blood sugar diagnostic (BLOOD GLUCOSE TEST) test strip Test blood sugar(s) 2 times daily. Dx: Type 2 DM - Uncontrolled E11.65 Insulin: Yes flash glucose scanning reader (FREESTYLE ANA 2 READER) 1 Each every hour as needed. Blood-Glucose Meter,Continuous (FREESTYLE ANA 3 READER) misc Use to check blood sugar at least four (4) times daily. Blood-Glucose Sensor (FREESTYLE ANA 3 SENSOR) natalia Apply new sensor every fourteen (14) days to upper arm. empagliflozin (JARDIANCE) 25 mg tablet Take 1 tablet by mouth daily with breakfast. atorvastatin (LIPITOR) 20 mg tablet Take 1 tablet by mouth once daily. flash glucose sensor (FREESTYLE ANA 2 SENSOR) kit 2 Each three times a day as needed. gabapentin (NEURONTIN) 800 mg tablet Take 1 tablet by mouth three times a day for 90 days. insulin glargine (LANTUS SOLOSTAR U-100 INSULIN) 100 unit/mL (3 mL) Inject 40 Units subcutaneously daily at bedtime. linaGLIPtin (TRADJENTA) 5 mg tab Take 1 tablet by mouth once daily. levonorgestrel (MIRENA) 21 mcg/24 hr (8 yrs) 52 mg IUD 1 Each by INTRAUTERINE route as directed. STIOLTO RESPIMAT 2.5-2.5 mcg/actuation Inhale 2 Puffs as instructed once daily. albuterol HFA (PROVENTIL HFA, VENTOLIN HFA) 90 mcg/actuation inhaler Inhale 2 Puffs as instructed every 4 hours as needed for wheezing/shortness of breath. Insulin [place], Disposable, (SURE-FINE PEN NEEDLES) 31 gauge x 3/16 Daily injections No current facility-administered medications for this visit. FAMILY HISTORY Problem Relation Age of Onset Heart Mother Diabetes Mother Hypertension Mother Arthritis Mother Heart Father Arthritis Father Cancer Maternal Grandmother stomach cancer. Social History Tobacco Use Smoking status: Every Day Current packs/day: 0.50 Average packs/day: 0.5 packs/day for 20.0 years (10.0 ttl pk-yrs) Types: Cigarettes Smokeless tobacco: Never Substance Use Topics Alcohol use: Yes Comment: occ Drug use: No REVIEW OF SYSTEMS GENERAL: No weight loss, no malaise or fevers/ + chills HEENT: Negative for frequent or significant headaches, No changes in hearing or vision. NECK: Negative for lumps, goiter, pain and significant neck swelling RESPIRATORY: No change in cough, no hemoptysis, some wheezing, no dyspnea or shortness of breath CARDIOVASCULAR: Negative for chest pain, leg swelling, orthopnea, or palpitations GI: No nausea, vomiting, or diarrhea/constipation. No hematochezia/melena. No heartburn or reflux symptoms. : No history of dysuria, frequency or incontinence MUSCULOSKELETAL: Negative for joint pain or swelling. SKIN: Negative for lesions, rash, and itching ENDOCRINE: Negative for cold or heat intolerance, + polyuria, some polydipsia and goiter NEURO: No history of headaches, syncope, paralysis, seizures or tremors MOOD: Negative for depression, anxiety, or suicidal ideation. Sad. EXAM: BP 128/70 Pulse 89 Temp 36.9 ?C (98.4 ?F) (Right Tympanic) Wt 99.8 kg (220 lb) LMP 05/09/2024 (Within Days) SpO2 97% BMI 37.76 kg/m? PHYSICAL EXAM: Physical Exam Vitals reviewed. Constitutional: Appearance: Normal appearance. HENT: (more content not included)... Normal [facility] Comprehensive metabolic 2000 panelon 06-12-2024 Albumin [Mass/Vol] 3.9 g/dL Normal 3.9-4.9 [facility] Comment on above: Order Comment: Speci men Type: BLOOD SPECIMEN [facility] Address: [address] [place] [address] Performed By: #### I SLET #### [facility] CLIA [id number] [address] [place] [address] ALP [Catalytic activity/Vol] 96 U/L Normal 34-123 [facility] Comment on above: Order Comment: Speci men Type: BLOOD SPECIMEN [facility] Address: [address] [place] [address] Performed By: #### I SLET #### [facility] CLIA [id number] [address] [place] [address] ALT [Catalytic activity/Vol] 17 U/L Normal 7-38 [facility] Comment on above: Order Comment: Speci men Type: BLOOD SPECIMEN [facility] Address: [address] [place] [address] Performed By: #### I SLET #### [facility] CLIA [id number] [address] [place] [address] Anion gap [Moles/Vol] 11 mmol/L Normal 8-15 [facility] Comment on above: Order Comment: Speci men Type: BLOOD SPECIMEN [facility]: [facility] Address: [address] [place] [address] Performed By: #### I SLET #### [facility] CLIA [id number] [address] [place] [address] AST [Catalytic activity/Vol] 17 U/L Normal 13-35 [facility] Comment on above: Order Comment: Speci men Type: BLOOD SPECIMEN [facility] Address: [address] [place] [address] Performed By: #### I SLET #### [facility] CLIA [id number] [address] [place] [address] Bilirubin [Mass/Vol] 0.3 mg/dL Normal 0.2-1.3 [facility] Comment on above: Order Comment: Speci men Type: BLOOD SPECIMEN [facility] Address: [address] [place] [address] Performed By: #### I SLET #### [facility] CLIA [id number] [address] [place] [address] Calcium [Mass/Vol] 8.9 mg/dL Normal 8.5-10.2 [facility] Comment on above: Order Comment: Speci men Type: BLOOD SPECIMEN [facility] Address: [address] [place] [address] Performed By: #### I SLET #### [facility] CLIA [id number] [address] [place] [address] Chloride [Moles/Vol] 103 mmol/L Normal 98-107 [facility] Comment on above: Order Comment: Speci men Type: BLOOD SPECIMEN [facility]: [facility] Address: [address] [place] [address] Performed By: #### I SLET #### [facility] CLIA [id number] [address] [place] [address] CO2 [Moles/Vol] 24 mmol/L Normal 22-30 [facility] Comment on above: Order Comment: Speci men Type: BLOOD SPECIMEN [facility]: [facility] Address: [address] [place] [address] Performed By: #### I SLET #### [facility] CLIA [id number] [address] [place] [address] Creatinine [Mass/Vol] 0.58 mg/dL Normal 0.58-0.96 [facility] Comment on above: Order Comment: Jamie garcia Type: BLOOD SPECIMEN [facility]: [facility] Address: [address] [place] [address] Performed By: #### I SLET #### [id number] [address] [place] [address] Creatinine and Glomerular filtration rate.predicted panel (S/P/Bld) 115 mL/min/1.73m??? Normal >=60 [facility] Comment on above: Order Comment: Jamie garcia Type: BLOOD SPECIMEN [facility]: [facility] Address: [address] [place] [address] Result Comment: Jenny mated Glomerular Filtration Rate (eGFR) is calculated using the 2020 CKD-EPI creatinine equation. This equation utilizes serum creatinine, sex, and age as parameters. The creatinine assay has traceable calibration to isotope dilution-mass spectrometry. Refer to KDIGO guidelines for clinical interpretation. In patients with unstable renal function, e.g. those with acute kidney injury, the eGFR may not accurately reflect actual GFR. Performed By: #### I SLET #### [facility] [place] [id number] [address] [place] [address] Glucose [Mass/Vol] 225 mg/dL High 74-99 [facility] Comment on above: Order Comment: Jamie garcia Type: BLOOD SPECIMEN [facility]: [facility] Address: [address] [place] [address] Result Comment: The [place] [employer] (ADA) provides guidance for cutoff values for fasting glucose and random glucose. The ADA defines fasting as no caloric intake for at least 8 hours. Fasting plasma glucose results between 100 to 125 [...] Standards of Medical Care in Diabetes 2016, [place] [employer]. Diabetes Care. 2016.39(Suppl 1). Performed By: #### I SLET #### [facility] CLIA [id number] [address] [place] [address] Potassium [Moles/Vol] 4.7 mmol/L Normal 3.7-5.1 [facility] Comment on above: Order Comment: Speci men Type: BLOOD SPECIMEN Ordering Facility: [facility] Address: [address] [place] [address] Performed By: #### I SLET #### [facility] CLIA [id number] [address] [place] [address] Protein [Mass/Vol] 7.0 g/dL Normal 6.3-8.0 [facility] Comment on above: Order Comment: Speci men Type: BLOOD SPECIMEN Ordering Facility: [facility] Address: [address] [place] [address] Performed By: #### I SLET #### [facility] CLIA [id number] [address] [place] [address] Sodium [Moles/Vol] 138 mmol/L Normal 136-144 [facility] Comment on above: Order Comment: Speci men Type: BLOOD SPECIMEN Ordering Facility: [facility] Address: [address] [place] [address] Performed By: #### I SLET #### [facility] CLIA [id number] [address] [place] [address] Urea nitrogen [Mass/Vol] 13 mg/dL Normal 7-21 [facility] Comment on above: Order Comment: Speci men Type: BLOOD SPECIMEN Ordering Facility: [facility] Address: [address] [place] [address] Performed By: #### I SLET #### [facility] CLIA [id number] [address] [place] [address] HbA1c (Bld)on 06-12-2024 Average glucose Estimated from glycated hemoglobin (Bld) [Mass/Vol] 206 mg/dL Normal [facility] Comment on above: Order Comment: Speci men Type: BLOOD SPECIMEN Ordering Facility: [facility] Address: [address] [place] [address] Result Comment: eAG: (Estimated average glucose) is a calculated value from HgbA1c and is access representative of the average blood glucose level in the last 2-3 month period. Performed By: #### 5 5454-3 #### [facility] CLIA [id number] [address] [place] [address] [place] HbA1c (Bld) [Mass fraction] 8.8 % High 4.3-5.6 [facility] Comment on above: Order Comment: Jamie garcia Type: BLOOD SPECIMEN Ordering Facility: [facility] Address: [address] [place] [address] Result Comment: Amer ican Diabetes Association guidelines indicate that patients with HgbA1c in the range 5.7-6.4% are at increased risk for development of diabetes, and intervention by lifestyle modification may be beneficial. HgbA1c greater or equal to 6.5% is considered diagnostic of diabetes. Performed By: #### 5 5454-3 #### [facility] CLIA [id number] [address] [place] [address] [place] LIPID PANEL, NONFASTINGon Cholesterol [Mass/Vol] 161 mg/dL Normal <200 [facility] Comment on above: Order Comment: Jamie garcia Type: BLOOD SPECIMEN Ordering Facility: [facility] Address: [address] [place] [address] Result Comment: <200 mg/dL, Desirable 200-239 mg/dL, Borderline high >239 mg/dL, High Performed By: #### I SLET #### [facility] CLIA [id number] [address] [place] [address] HDL CHOLESTEROL, NF 36 mg/dL Low >[address] [facility] Comment on above: Order Comment: Jamie garcia Type: BLOOD SPECIMEN Ordering Facility: [facility] Address: [address] [place] [address] Result Comment: 40-5 9 mg/dL, Acceptable >59 mg/dL, High: Negative risk factor for coronary heart disease <40 mg/dL, Low: Positive risk factor for coronary heart disease Performed By: #### I SLET #### [facility] CLIA [id number] [address] [place] [address] LDL CHOLESTEROL, NF 102 mg/dL High <[address] [facility] Comment on above: Order Comment: Jamie garcia Type: BLOOD SPECIMEN Ordering Facility: [facility] Address: [address] [place] [address] Result Comment: <100 mg/dL, Optimal 100-129 mg/dL, Near optimal/above optimal 130-159 mg/dL, Borderline high 160-189 mg/dL, High >189 mg/dL, Very high Secondary prevention optimal LDL Cholesterol levels are recommended to be < 70 mg/dL Performed By: #### I SLET #### [facility] CLIA [id number] [address] [place] [address] LDL/HDL RATIO, NF 2.83 mg/dL High <2.54 [facility] Comment on above: Order Comment: Jamie garcia Type: BLOOD SPECIMEN Ordering Facility: [facility] Address: [address] [place] [address] Result Comment: Refe rence: 1. National Cholesterol Education Program ATP III Guideline At-A-Glance Quick Desk Reference: National Heart, Lung, and Blood [place]. National Institutes of Health. 2001: NIH Publication No. 01-3305. 2. An International Atherosclerosis Society position paper: global recommendations for the management of dyslipidemia: executive summary, Atherosclerosis. 2014: 232(2):410-413. Performed By: #### I SLET #### [facility] CLIA [id number] [address] [place] [address] NON HDL CHOL, NF 125 mg/dL Normal <130 [facility] Comment on above: Order Comment: Jamie radha Type: BLOOD SPECIMEN Ordering Facility: [facility] Address: [address] [place] [address] Result Comment: <130 mg/dL, Optimal 130-159 mg/dL, Near optimal/above optimal 160-189 mg/dL, Borderline high 190-219 mg/dL, High >219 mg/dL, Very high Secondary prevention optimal non HDL Cholesterol levels are recommended to be <100 mg/dL Performed By: #### I SLET #### [facility] CLIA [id number] [address] [place] [address] T CHOL/HDL RATIO NF 4.47 mg/dL Normal <5.[address] [facility] Comment on above: Order Comment: Speci men Type: BLOOD SPECIMEN Ordering Facility: [facility] Address: [address] [place] [address] Performed By: #### I SLET #### [facility] [id number] [address] [place] [address] TRIGLYCERIDES, NF 113 mg/dL Normal <150 [facility] Comment on above: Order Comment: Speci men Type: BLOOD SPECIMEN Ordering Facility: [facility] Address: [address] [place] [address] Result Comment: <150 mg/dL, Normal 150-199 mg/dL, Borderline high 200-499 mg/dL, High >499 mg/dL, Very high Performed By: #### I SLET #### [facility] IA [id number] [address] [place] [address] VLDL CHOLESTEROL, NF 23 mg/dL Normal <30 [facility] Comment on above: Order Comment: Speci men Type: BLOOD SPECIMEN Ordering Facility: [facility] Address: [address] [place] [address] Performed By: #### I SLET #### [facility] IA [id number] [address] [place] [address] Magnesium SerPl-mCncon 06-12 Magnesium [Mass/Vol] 2.0 mg/dL Normal 1.7-2.3 [facility] Comment on above: Order Comment: Speci men Type: BLOOD SPECIMEN Ordering Facility: [facility] Address: [address] [place] [address] Performed By: #### I SLET #### [facility]ude IA [id number] [address] [place] [address] TSH SerPl-aCncon 06-12-2024 TSH Qn 0.584 m[IU]/L Normal 0.270-4.200 [facility] Comment on above: Order Comment: Speci men Type: BLOOD SPECIMEN Ordering Facility: [facility] Address: [address] [place], [place] [address] [address] Result Comment: If t he patient is , TSH reference range varies by gestational period: First Trimester (weeks 9-12): 0.180-2.990 mIU/L Second Trimester: 0.110-3.980 mIU/L Third Trimester: 0.480-4.710 mIU/L Ehsan Arceo et al. A Practical Approach for the Verifications and Determination of Site- and Trimester-Specific Reference Intervals for Thyroid Function tests in . Thyroid, 2019:29:3:412-420. Angelo Bolanos, et al. 2017 Guidelines of the [place] Thyroid Association for the Diagnosis and Management of Thyroid Disease during and the . Thyroid, 2017:27:3:315-389. Performed By: #### I SLET #### [facility] CLIA [id number] [address] [place] [address] Vit B12 [facility] 02-18-2 025 Cobalamin (Vitamin B12) [Mass/Vol] 396 pg/mL Normal 232-1245 [facility] Comment on above: Order Comment: Speci men Type: BLOOD SPECIMEN Ordering Facility: [facility] Address: [address] [place] [address] Performed By: #### I SLET #### [facility] [id number] [address] [place] [address] CNOVon 05-29-2024 CNOV Office Visit (FAMPWS ) HUMZA,GINGER Lezama ([id number]) 1980 F Date Time Provider Department 05/29/24 2:40 PM LAZARA MELENDEZ FAMPWS During your visit today, we recorded the following information about you: Pulse Blood pressure Weight Height 89/minute 126/72 99.3 kg 1.626 m Lazara Melendez, WEB CONTENT COORDINATOR.MAINTENANCE WELDER 05/29/2024 3:10 PM Signed This is a 43 year old female who presents today with: Patient presents with: Follow Up HISTORY OF PRESENT ILLNESS: Ginger Ching is a 43 year old female. Patient presents with: Follow Up Depression, pretty bad Loss of appetite Not sleeping Feeling tired + cough CGM Meter got wet so can't test, could go ahead and switch now to the Ana 3 DM: Reports overall feeling well. Medication side effects: No. Home sugar checks: Unable Hypoglycemic spells: Uncertain. Watching diet: Not eating. Unexpected weight loss: No. Polyuria, polydipsia: Yes. Vision Changes: No. Foot lesions or numbness or pain: Yes. Neuropathy PAST MEDICAL HISTORY: PAST MEDICAL HISTORY Diagnosis Date Anxiety 12/29/2012 [...] Dust, Grass Pollen, Acetaminophen, Cardizem [Diltiazem], Percocet [Oxycodone-Acetaminophe n], and Zyrtec [Cetirizine Hcl] MEDICATIONS Current Outpatient Medications Medication Sig flash glucose scanning reader (CampalystSTYLE ANA 2 READER) 1 Each every hour as needed. empagliflozin (JARDIANCE) 25 mg tablet Take 1 tablet by mouth daily with breakfast. atorvastatin (LIPITOR) 20 mg tablet Take 1 tablet by mouth once daily. flash glucose sensor (FREESTYLE ANA 2 SENSOR) kit 2 Each three times a day as needed. gabapentin (NEURONTIN) 800 mg tablet Take 1 tablet by mouth three times a day for 90 days. insulin glargine (LANTUS SOLOSTAR U-100 INSULIN) 100 unit/mL (3 mL) Inject 40 Units subcutaneously daily at bedtime. linaGLIPtin (TRADJENTA) 5 mg tab Take 1 tablet by mouth once daily. levonorgestrel (MIRENA) 21 mcg/24 hr (8 yrs) 52 mg IUD 1 Each by INTRAUTERINE route as directed. STIOLTO RESPIMAT 2.5-2.5 mcg/actuation Inhale 2 Puffs as instructed once daily. albuterol HFA (PROVENTIL HFA, VENTOLIN HFA) 90 mcg/actuation inhaler Inhale 2 Puffs as instructed every 4 hours as needed for wheezing/shortness of breath. Insulin Terra [place]ta, Disposable, (SURE-FINE PEN NEEDLES) 31 gauge x 3/16 Daily injections blood sugar diagnostic (BLOOD GLUCOSE TEST) test strip Test blood sugar(s) 2 times daily. Dx: Type 2 DM - Uncontrolled E11.65 Insulin: Yes Lancets lancets Test blood sugar(s) two times daily. Dx: E11.65. Insulin: Yes metoprolol succinate ER (TOPROL XL) 25 mg 24 hr tablet Take 25 mg by mouth once daily. (Patient not taking: Reported on 05/29/2024) DULoxetine (CYMBALTA) 40 mg cpDR Take 1 capsule by mouth once daily. (Patient not taking: Reported on 05/29/2024) fluconazole (DIFLUCAN) 150 mg tablet Take immediately and repeat in 3 days as needed. (Patient not taking: Reported on 05/15/2024) No current facility-administered medications for this visit. FAMILY HISTORY Problem Relation Age of Onset Heart Mother Diabetes Mother Hypertension Mother Arthritis Mother Heart Father Arthritis Father Cancer Maternal Grandmother stomach cancer. Social History Tobacco Use Smoking status: Every Day Current packs/day: 0.50 Average packs/day: 0.5 packs/day for 20.0 years (10.0 ttl pk-yrs) Types: Cigarettes Smokeless tobacco: Never Substance Use Topics Alcohol use: Yes Comment: occ Drug use: No EXAM: BP 126/72 Pulse 89 Ht 162.6 cm (5' 4) Wt 99.3 kg (219 lb) LMP 05/09/2024 (Within Days) SpO2 97% BMI 37.59 kg/m? PHYSICAL EXAM: Physical Exam Vitals reviewed. Constitutional: Appearance: She is ill-appearing. Cardiovascular: Rate and Rhythm: Normal rate and regular rhythm. Pulses: Normal pulses. Heart sounds: Normal heart sounds. Pulmonary: Effort: Pulmonary effort is normal. Breath sounds: No wheezing, rhonchi or rales. Comments: RUL absent, no rhonchi or wheezing Dry cough Abdominal: Palpations: Abdomen is soft. Tenderness: There is abdominal tenderness. There is no guarding. Musculoskeletal: General: Normal range of motion. Right lower leg: No edema. Left lower leg: No edema. Skin: General: Skin is warm and dry. Neurological: Mental Status: She is alert and gabe (more content not included)... Normal [facility] BACTERIAL VAGINOSIS NAATon 0 05-15-2024 Lactobacillus crispatus+gasseri+aaron enii + Gardnerella vaginalis + Atopobium vaginae rRNA KERRY+probe Ql (Vag fld) Detected Abnormal Not detected [facility] Comment on above: Order Comment: Speci men Type: SWABOrdering Facility: [facility] Address: [address] [place] [address] Performed By: #### 3 6902-5, BVAMP ####[facility] [id number] [place] [address] [place] C. trachomatis+N. gonorrhoea e DNA KERRY+probe Ql (Unsp spec)on 05-15-2024 C. trachomatis rRNA KERRY+probe Ql (Unsp spec) Not detected Normal Not detected [facility] Comment on above: Order Comment: Speci men Type: SWABOrdering Facility: [facility] Address: [address] [place] [address] Performed By: #### 3 6902-5, BVAMP ####[facility] [id number] [place] [address] [place] N. gonorrhoeae rRNA KERRY+probe Ql (Unsp spec) Not detected Normal Not detected [facility] Comment on above: Order Comment: Speci men Type: SWABOrdering Facility: [facility] Address: [address] [place] [address] Performed By: #### 3 6902-5, BVAMP ####[facility] [id number] [place] [address] [place] LORENZO/TRICHOMONAS NAATon 0 05-15-2024 C. glabrata RNA KERRY+probe Ql (Vag fld) Not detected Normal Not detected [facility] Comment on above: Order Comment: Speci men Type: SWABOrdering Facility: [facility] Address: [address] [place] [address] Performed By: #### C VTV ####[facility] [id number] [place] [address] [place] Lorenzo sp DNA KERRY+probe Ql (Vag fld) Not detected Normal Not detected [facility] Comment on above: Order Comment: Speci men Type: SWABOrdering Facility: [facility] Address: [address] [place] [address] Result Comment: The Lorenzo species group target includes C. albicans, C. tropicalis, C. parapsilosis, and C. dubliniensis. Performed By: #### C VTV ####[facility]IA [id number] [address] [place] T. vaginalis DNA KERRY+probe Ql (Unsp spec) Not detected Normal Not detected [facility] Comment on above: Order Comment: Speci men Type: SWABOrdering Facility: [facility] Address: [address] [place] [address] Performed By: #### C VTV ####[facility] [id number] [place] [address] [place] CNOVon 05-15-2024 CNOV Office Visit (OBGYWM ) GINGER CHING ([id number]) 1980 F Date Time Provider Department 05/15/24 1:30 PM TRACY AGUILLON During your visit today, we recorded the following information about you: Blood pressure Weight Last Period 118/86 99.8 kg 05/09/24 Tracy Aguillon, WEB CONTENT COORDINATOR.CNM 05/15/2024 2:32 PM Signed Route Driver Salesperson offered: Patient declines. Ginger Ching is a 43 year old female who presents for problem visit STD check - partner positive for syphilis in last week. HPI: Presents today with concerns for STD. Partner incarcerated and tested positive for syphilis. She thinks he had a new partner in December. Denies any symptoms or other concerns. 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 Social History Tobacco Use Smoking status: Every Day Current packs/day: 0.50 Average packs/day: 0.5 packs/day for 20.0 years (10.0 ttl pk-yrs) Types: Cigarettes Smokeless tobacco: Never Substance Use Topics Alcohol use: Yes Comment: occ Drug use: No Current Outpatient Medications Medication Sig flash glucose scanning reader (FREESTYLE ANA 2 READER) 1 Each every hour as needed. empagliflozin (JARDIANCE) 25 mg tablet Take 1 tablet by mouth daily with breakfast. atorvastatin (LIPITOR) 20 mg tablet Take 1 tablet by mouth once daily. flash glucose sensor (FREESTYLE ANA 2 SENSOR) kit 2 Each three times a day as needed. DULoxetine (CYMBALTA) 40 mg cpDR Take 1 capsule by mouth once daily. insulin glargine (LANTUS SOLOSTAR U-100 INSULIN) 100 unit/mL (3 mL) Inject 40 Units subcutaneously daily at bedtime. linaGLIPtin (TRADJENTA) 5 mg tab Take 1 tablet by mouth once daily. levonorgestrel (MIRENA) 21 mcg/24 hr (8 yrs) 52 mg IUD 1 Each by INTRAUTERINE route as directed. STIOLTO RESPIMAT 2.5-2.5 mcg/actuation Inhale 2 Puffs as instructed once daily. albuterol HFA (PROVENTIL HFA, VENTOLIN HFA) 90 mcg/actuation inhaler Inhale 2 Puffs as instructed every 4 hours as needed for wheezing/shortness of breath. Insulin Terra [place], Disposable, (SURE-FINE PEN NEEDLES) 31 gauge x 3/16 Daily injections blood sugar diagnostic (BLOOD GLUCOSE TEST) test strip Test blood sugar(s) 2 times daily. Dx: Type 2 DM - Uncontrolled E11.65 Insulin: Yes Lancets lancets Test blood sugar(s) two times daily. Dx: E11.65. Insulin: Yes gabapentin (NEURONTIN) 800 mg tablet Take 1 tablet by mouth three times a day for 90 days. fluconazole (DIFLUCAN) 150 mg tablet Take immediately and repeat in 3 days as needed. (Patient not taking: Reported on 05/15/2024) No current facility-administered medications for this visit. Allergies As of Date: 05/15/2024 Allergen Noted Reaction CATS 10/23/2009 Hives and Itching DUST 10/23/2009 GRASS POLLEN 10/23/2009 Itching ACETAMINOPHEN 01/07/2022 GI Upset CARDIZEM [DILTIAZEM] 07/25/2013 GI Upset and Vomiting PERCOCET [OXYCODONE-ACETAMINOPHE N]06/07/2016 Vomiting ZYRTEC [CETIRIZINE HCL] 08/22/2013 Hives Fully Assessed 05/15/2024 REVIEW OF SYSTEMS Abdomen: No bloating, early satiety, indigestion, or increased flatulence. No abdominal pain, nausea, vomiting, diarrhea, or constipation. Bladder: No dysuria, gross hematuria, urinary frequency, urinary urgency, or incontinence. Breast: No breast lumps, nipple d/c, overlying skin changes, redness or skin retraction. Expanded ROS: N/A Allergies and current medication updated:Yes SENSITIVE EXAM: The sensitive examination was discussed with the Patient or Patient's Authorized Ore Storage Drier. As applicable, any other physician, advance practice provider, medical student, or other health professional student that will be observing or involved in the sensitive examination for educational or training purposes was discussed with the Patient or Authorized Ore Storage Drier. The Patient or Authorized Re (more content not included)... Normal [facility] HBV surface Ag Ser Qlon 04-26 HBV surface Ag Ql (S) Negative Normal Negative [facility] Comment on above: Order Comment: Speci men Type: BLOOD SPECIMENOrdering Facility: [facility] Address: [address] [place] [address] Performed By: #### 3 1201-7, 84378-1, 5195-3 ####[facility] LABCLIA [id number] [place] [address] [place] HCV Ab Ser Qlon 05-15-2024 HCV Ab Ql (S) Positive Abnormal Negative [facility] Comment on above: Order Comment: Speci men Type: BLOOD SPECIMEN Ordering Facility: [facility] Address: [address] [place] [address] Performed By: #### I SLET #### [facility] CLIA [id number] [address] [place] [address] HCV RNA KERRY+probe Qnon 05-15 HCV RNA KERRY+probe Ql Not detected Normal Not detected [facility] Comment on above: Order Comment: Speci men Type: BLOOD SPECIMEN Ordering Facility: [facility] Address: [address] [place] [address] Performed By: #### I SLET #### [facility] CLIA [id number] [address] [place] [address] HIV 1+2 Ab IA Qlon HIV 1 and 2 Ab IA.rapid Nom (S/P/Bld) Normal [facility] Comment on above: Order Comment: Speci men Type: BLOOD SPECIMENOrdering Facility: [facility] Address: [address] [place] [address] Result Comment: Test not indicated. Performed By: #### 3 1201-7, 14159-2, 5195-3 ####[facility] LABIA [id number] [place] [address] [place] HIV 1+2 Ab+HIV1 p24 Ag IA Ql Non-Reactive Normal Nonreactive [facility] Comment on above: Order Comment: Speci men Type: BLOOD SPECIMENOrdering Facility: [facility] Address: [address] [place] [address] Performed By: #### 3 1201-7, 00626-8, 5195-3 ####[facility] [id number] [place] [address] [place] HIV immunoassay testing algorithm interpretation (S/P/Bld) [Interp] Normal [facility] Comment on above: Order Comment: Speci men Type: BLOOD SPECIMENOrdering Facility: [facility] Address: [address] [place] [address] Result Comment: No e vidence of HIV-1 or HIV-2 infection. Should recent infection be suspected, repeat testing may be considered 2-3 weeks after this draw. [place] Rev. Code 3701.243(E): This information has been disclosed to you from confidential records protected from disclosure by state law. ???You shall make no further disclosure of this information without the specific, written, and informed release of the individual to whom it pertains or as otherwise permitted by state law. A general authorization for the release of medical or other information is not sufficient for the purpose of the release of HIV test results or diagnoses. Performed By: #### 3 1201-7, 23814-4, 5195-3 ####[facility] LABIA [id number] [place] [address] [place] Reagin and Treponema pallidu m IgG and IgM [Interp]on 05-15-2024 T. pallidum IgG+IgM IA Ql (S) Non-Reactive Normal Nonreactive [facility] Comment on above: Order Comment: Speci men Type: BLOOD SPECIMENOrdering Facility: [facility] Address: [address] [place] [address] [place] [address] Performed By: #### 3 1201-7, 66573-1, 5195-3 ####[facility] LABIA [id number] [place] [address] [place] Reagin+T pallidum IgG+IgM Se rPl-Impon 05-15-2024 Reagin and Treponema pallidum IgG and IgM [Interp] Cannot exclude recent Treponemal infection if specimen collected within 7-10 days after appearance of suspect lesions or 2-3 weeks after an exposure. Clinical correlation is required. Normal [facility] Comment on above: Order Comment: Speci men Type: BLOOD SPECIMENOrdering Facility: [facility] Address: [facility] [place] [address] Performed By: #### 3 1201-7, 30711-4, 5195-3 ####[facility] LABIA [id number] [place] [id number] [place] [id number] 03-20-2024 [id number] HNO ID: [id number] Author: TRACY CELAYA PT Service: ? Author Type: Physical Therapist Type: [id number] Filed: 03/20/2024 12:33 Note Text: [facility] Physical Therapy Plan of Care Certification Patient Name: Ginger Ching : 1980 [facility] #: [id number] Date: 03/20/2024 To: Humberto Damon MD From Therapist: Tracy Celaya PT RE: Patient Certification/ Recertification Your review, approval and electronic signature are required in order to comply with Payor: [facility] [employer]ICA[employer] / Plan: [facility] [employer] / Product Type: Medicaid / regulations. 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 The patient presents with impairments in ADL's, gait, independence in exercise, joint mobility, overall function, patient reported outcome measures, posture, range of motion, strength, stress management, symptom management, and tissue tenderness. PROMIS? (Patient-Reported Outcomes Measurement Information System) scores were reviewed and identified as a rehabilitation concern. Prognosis for therapy is Fair due to: coping skills, chronic nature of impairments, clinical presentation, multiple co- morbidities, limited tolerance to activity, poor historian, poor understanding of deficits . The patient will benefit from skilled therapy services to meet the goals established for this plan of care as noted below. Classification Pain Mechanism Classification: Nociplastic/Central Low Back Pain Classification: Symptom Modulation Goals for Episode of Care: established 03/20/24 Independent in home exercises. Patient will decrease pain rating by 2 points to meet minimal clinical important difference for numeric pain rating scale. Restore pain-free lumbar ROM to minimal to moderate limitation without increased pain grossly to allow for transitional movements. Stand / Walk 10-15 minutes without increased pain/symptoms. Sleep through night without pain/symptoms. Sit 15-30 minutes without pain/symptoms to allow for seated activities. Patient Goals: reduce back pain with walking >5 min and sitting >5 min. Pt. would like to self manage her pain better. Time Frame for Goals and Treatment : 04/24/24 Planned Interventions, Frequency, and Duration: Current Frequency: 1x/week Duration: 6 weeks Total Number of Visits Planned: 6 Planned Treatment Interventions: Therapeutic exercise (26102), Neuromuscular re-education (17249), Manual therapy (56501), Therapeutic activities (98623), Self-intermediate management (47697), Gait Training (74375) PLAN FOR NEXT VISIT: assess symptom response to seated TA and extension, and consider PNE Patient demonstrates good understanding of plan of care and treatment. The above goals and plan of care were discussed and agreed upon by patient/family. For further details regarding this patient refer to the Physical Therapy electronically documented visit dated 03/20/2024. Provider Attestation I have reviewed the treatment plan for Ginger Lezama Humza, CC# [id number] for the period of 03/20/24 -- 05/01/24, established on 03/20/2024. Signature certifies the need for therapy services. Normal [facility] CNTHERAPYon 03-20-2024 CNTHERAPY OT/PT/Speech Visit (PTWS) RULE,GINGER Lezama ([id number]) 1980 F Date Time Provider Department 03/20/24 12:00 PM TRACY CELAYA PTWS Date Time Provider Department Center 03/20/2024 12:00 PM [id number] CELAYA PTWS [place] [place] Reason for Visit: PT Eval [747] Primary Visit Diagnosis:Degeneration of intervertebral disc of lumbar region with discogenic back pain and lower extremity pain [M51.362] Other Visit Diagnoses:Chronic thoracic spine pain [M54.6, G89.29] 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] Allergies As of Date: 03/20/2024 Noted Allergy Reaction CATS 10/23/2009 4 - Hives 9 - Itching DUST 10/23/2009 Comments: environmental GRASS POLLEN 10/23/2009 9 - Itching ACETAMINOPHEN 01/07/2022 8 - GI Upset CARDIZEM (DILTIAZEM) 07/25/2013 8 - GI Upset 11 - Vomiting PERCOCET (OXYCODONE-ACETAMINOPHE N)06/07/2016 11 - Vomiting ZYRTEC (CETIRIZINE HCL) 08/22/2013 4 - Hives Date Reviewed: 02/27/2024 Reviewed by: Lazara Melendez APRN.MAINTENANCE WELDER - Fully Assessed Prescriptions as of 05/09/2024 - flash glucose scanning reader (CampalystSTYLE ANA 2 READER) 1 Each every hour as needed. - empagliflozin (JARDIANCE) 25 mg tablet Take 1 tablet by mouth daily with breakfast. - atorvastatin (LIPITOR) 20 mg tablet Take 1 tablet by mouth once daily. - flash glucose sensor (FREESTYLE ANA 2 SENSOR) kit 2 Each three times a day as needed. - gabapentin (NEURONTIN) 800 mg tablet Take 1 tablet by mouth three times a day for 90 days. - DULoxetine (CYMBALTA) 40 mg cpDR Take 1 capsule by mouth once daily. - insulin glargine (LANTUS SOLOSTAR U-100 INSULIN) 100 unit/mL (3 mL) Inject 40 Units subcutaneously daily at bedtime. - linaGLIPtin (TRADJENTA) 5 mg tab Take 1 tablet by mouth once daily. - levonorgestrel (MIRENA) 21 mcg/24 hr (8 yrs) 52 mg IUD 1 Each by INTRAUTERINE route as directed. - STIOLTO RESPIMAT 2.5-2.5 mcg/actuation Inhale 2 Puffs as instructed once daily. - albuterol HFA (PROVENTIL HFA, VENTOLIN HFA) 90 mcg/actuation inhaler Inhale 2 Puffs as instructed every 4 hours as needed for wheezing/shortness of breath. - Insulin [place], Disposable, (SURE-FINE PEN NEEDLES) 31 gauge x 3/16 Daily injections - fluconazole (DIFLUCAN) 150 mg tablet Take immediately and repeat in 3 days as needed. - blood sugar diagnostic (BLOOD GLUCOSE TEST) test strip Test blood sugar(s) 2 times daily. Dx: Type 2 DM - Uncontrolled E11.65 Insulin: Yes - Lancets lancets Test blood sugar(s) two times daily. Dx: E11.65. Insulin: Yes Thermodynamics Professor: Therapy (PT/OT/Speech/Resp) ID: [id number] 03/20/2024 12:14 PM Author: TRACY CELAYA Signed by TRACY CELAYA PT on 03/20/2024 at 12:14 PM Document text: Program_ID:[id number] Access Code: [email or web address] URL: [email or web address] Date: 03-20-2024 Prepared By: Tracy Celaya Program Notes Exercises - Standing Lumbar Extension - 3-4 x daily - 7 x weekly - 2-4 sets - 10 reps - Standing Lumbar Extension at Wall - Forearms - 3-4 x daily - 7 x weekly - 2-4 sets - 10 reps - Lying Prone - 3-4 x daily - 7 x weekly - 1 sets - 1 reps - Seated Transversus Abdominis Bracing - 1 x daily - 7 x weekly - 2 sets - 10 reps Normal [facility] THERAPY NTon 03-20-2024 THERAPY NT HNO ID: [id number] Author: TRACY CELAYA PT Service: ? Author Type: Physical Therapist Type: Therapy (PT/OT/Speech/Resp) Filed: 03/20/2024 12:14 Note Text: Program_ID:[id number] Access Code: [email or web address] URL: [email or web address] Date: 03-20-2024 Prepared By: Tracy Celaya Program Notes Exercises - Standing Lumbar Extension - 3-4 x daily - 7 x weekly - 2-4 sets - 10 reps - Standing Lumbar Extension at Wall - Forearms - 3-4 x daily - 7 x weekly - 2-4 sets - 10 reps - Lying Prone - 3-4 x daily - 7 x weekly - 1 sets - 1 reps - Seated Transversus Abdominis Bracing - 1 x daily - 7 x weekly - 2 sets - 10 reps Normal [facility] Emergency Department Summary on 03-11-2024 Emergency Department Summary [facility] Medical Records Department [address] [place] [id number] Emergency Department Summary 03/11/24 MR#: [id number] Acct: [id number] Name: GINGER CHING Rep #: [id number] : 1980 43 From: Flavio Kunz DO PCP: Dr. Eldon Hernandez MD Status:REG ER Location: ED HPI History of Present Illness HPI Narrative: Patient presents with redness and swelling to her left great toe that became worse today. Patient states she was recently prescribed an antibiotic for this. Patient states she completed the entire course of the antibiotics. Patient states she has an appointment with podiatry on 04/05/2024. Patient states that she noted some redness and swelling tonight. Patient also noted some drainage from around her toenail. Patient denies any fevers but admits to some subjective chills. Patient denies any new paresthesias or weakness. Patient states she has a history of diabetic neuropathy and has some tingling to her entire forefoot. Chief Complaint: Lower Extremity Injury Onset/Context/Timing Onset: Today Context: Gradual Onset Timing: Continuous Quality of Pain: Throbbing Location: Left great toe Worsened by: Nothing Relieved by: Nothing Associated Symptoms Associated Symptoms: Positive for Parasthesia (Chronic); Negative for Weakness or Loss of Funtion [facility] Medical History Hypothyroidism Kidney stones CPAP (continuous positive airway pressure) dependence Sleep apnea Smoker DVT (deep venous thrombosis) Physical exam, pre-employment Acute respiratory failure with hypoxemia Community acquired pneumonia due to methicillin resistant Staphylococcus aureus (MRSA) Chest pain Diabetes HTN (hypertension) Lupus Leaky heart valve Cellulitis of foot, right Anxiety Home Medications ???Medication ???Instructions ???Recorded ???Last Taken ???Type insulin glargine 100 unit/mL (3 30 unit SQ QHS BLOOD SUGARS 04/29/17 10/05/23 History mL) subcutaneous pen empagliflozin 10 mg tablet 10 mg PO DAILY BLOOD SUGARS 07/07/22 10/05/23 History (Jardiance) linagliptin 5 mg tablet (Tradjenta) 5 mg PO DAILY BLOOD SUGARS 10/15/22 10/05/23 History albuterol sulfate 90 mcg/actuation 2 puff inhalation Q4H PRN 07/26/23 Unknown Rx aerosol inhaler (Ventolin HFA) SHORTNESS OF BREATH/WHEEZING #18 grams tiotropium 2.5 mcg-olodaterol 2.5 2 inh inhalation DAILY COPD #3 ea 07/26/23 10/05/23 Rx mcg/actuation mist for inhalation (Stiolto Respimat) atorvastatin 40 mg tablet 40 mg PO DAILY CHOLESTEROL #30 tabs 09/29/23 10/05/23 Rx clopidogrel 75 mg tablet (Plavix) 75 mg PO DAILY BLOOD THINNER #30 09/29/23 10/05/23 Rx tabs metoprolol succinate 25 mg 25 mg PO DAILY BLOOD PRESSURE 09/29/23 10/05/23 History tablet,extended release 24 hr cilostazol 100 mg tablet 100 mg PO BID #60 tabs 10/06/23 Unknown Rx ipratropium 0.5 mg-albuterol 3 mg 3 ml inhalation Q4H PRN SHORTNESS 10/06/23 Unknown History (2.5 mg base)/3 mL nebulization OF BREATH/WHEEZING soln nitroglycerin 2 % transdermal 0.5 inch transdermal BID PRN pain 10/06/23 Unknown Rx ointment #60 grams ciprofloxacin HCl 0.3 % eye drops 2 drp RIGHT EYE 4X/DAY 7 days #10 10/25/23 Unknown Rx mL hydrocodone-acetaminoph en 5-325mg 1 tab PO Q6H PRN PRN Pain 3 days 01/07/24 Unknown Rx 5mg-325mg #10 TABLETS pregabalin 25 mg capsule (Lyrica) 25 mg PO TID #30 caps 01/07/24 Unknown Rx amoxicillin 875 mg-potassium 875 mg PO Q12H #20 TABLETS 03/11/24 Unknown Rx clavulanate 125 mg tablet Allergy/AdvReac Type Severity Reaction Status Date / Time cetirizine HCl (From Zyrtec) Allergy Hives Verified 03/11/24 00:25 prochlorperazine edisylate Allergy Hives Verified 03/11/24 00:25 (From Compazine) prochlorperazine maleate Allergy Hives Verified 03/11/24 00:25 (From Compazine) acetaminophen (From Percocet) AdvReac Nausea/Vom/ Verified 03/11/24 00:25 Diarrhea oxycodone (From Percocet) AdvReac Nausea/Vom/ Verified 03/11/24 00:25 Diarrhea Family History Mother Diabetes Hypertension Father Diabetes Surgical History History of cholecystectomy S/P laparoscopic cholecystectomy Social History Smoking Status: Current every day smoker tobacco type: cigarettes alcohol intake: never ROS ROS ED Constitutional Constitutional ED: Reports chills; Denies fever(s) Eyes Eyes: Denies blurry vision or change in vision ENT ENT ED: Denies rhinorrhea or sore throat Cardiovascular Cardiovascular: Denies chest pain or palpitations Respiratory/Chest Respiratory/Chest: Denies cough or dyspnea Gastrointestinal Gastrointestinal: Denies nausea (more content not included)... Normal [facility] CNOVon 03-02-2024 CNOV Office Visit (PNMDNA ) GINGER CHING ([id number]) 1980 F Date Time Provider Department 03/02/24 9:00 AM HUMBERTO DAMON PNMDNA During your visit today, we recorded the following information about you: Humberto Damon MD 03/02/2024 10:13 AM Signed [facility] Pain Management Department Date: March 02, 2024 - 8:35 AM Ginger Ching is seen in consultation requested by Daphne Gresham for an opinion regarding chronic lower back pain. My final recommendations will be communicated back to the requesting physician by way of shared medical record or via US mail. Chief Complaint: chronic back pian SUBJECTIVE: Ginger Ching, is a 43 year old female who presents with lower back pain. The pain started years ago, with no known injury or trauma. The pain onset was gradual in nature. The patient states that the current pain is persistent and worsening. Her pain is located in the bilateral lumbar region and radiates to left lower extremity along posterior aspect to the level of toes . // The pain is described as sharp, shooting, cramping, aching, numbness, and tingling. The pain intensity is rated 8. The pain is exacerbated by walking and relieved by elevating. Symptoms interfere with physical activity and walking. 50% pain in spine vs 50% (radiating) pain in the extremity. Litigation: No. Worker's Compensation: No. Prior pain treatment has included: Medication(s): Cymbalta, muscle relaxant, Gabapentin, Lyrica Patient Entered Questionnaires PROMIS Score Percentiles 06/28/2022 10/11/2022 01/31/2024 PROMIS Global Health Scale Physical Health Percentile 10 7 Mental Health Percentile 5 13 13 01/31/2024 Physical Health Physical Function Percentile 4 Pain Interference Percentile 1 Percentiles provide an indication of how the patient's score ranks in relation to the general population. Higher percentile rankings indicate better function/quality of life. 50th percentile is the average of the general population and indicates half of respondents had a worse score. > 31st percentile is within normal limits or better * < 31st percentile is at least ? SD worse than population, which may be clinically relevant < 16th percentile is at least 1 SD worse than population and warrants attention ALLERGIES Allergen Reactions Cats Hives, Itching Dust environmental Grass Pollen Itching Acetaminophen GI Upset Cardizem [Diltiazem] GI Upset, Vomiting Percocet [Oxycodone* Vomiting Zyrtec [Cetirizine * Hives Current Medications: Pain medications reviewed and reconciled in the medication list: Yes. Current Outpatient Medications Medication Sig cephALEXin (KEFLEX) 500 mg capsule Take 1 capsule by mouth two times a day for 5 days. atorvastatin (LIPITOR) 20 mg tablet Take 1 tablet by mouth once daily. flash glucose sensor (FREESTYLE ANA 2 SENSOR) kit 2 Each three times a day as needed. gabapentin (NEURONTIN) 800 mg tablet Take 1 tablet by mouth three times a day for 90 days. DULoxetine (CYMBALTA) 40 mg cpDR Take 1 capsule by mouth once daily. insulin glargine (LANTUS SOLOSTAR U-100 INSULIN) 100 unit/mL (3 mL) Inject 40 Units subcutaneously daily at bedtime. linaGLIPtin (TRADJENTA) 5 mg tab Take 1 tablet by mouth once daily. levonorgestrel (MIRENA) 21 mcg/24 hr (8 yrs) 52 mg IUD 1 Each by INTRAUTERINE route as directed. STIOLTO RESPIMAT 2.5-2.5 mcg/actuation Inhale 2 Puffs as instructed once daily. albuterol HFA (PROVENTIL HFA, VENTOLIN HFA) 90 mcg/actuation inhaler Inhale 2 Puffs as instructed every 4 hours as needed for wheezing/shortness of breath. flash glucose scanning reader (FREESTYLE ANA 2 READER) 1 Each every hour as needed. Insulin [place], Disposable, (SURE-FINE PEN NEEDLES) 31 gauge x 3/16 Daily injections fluconazole (DIFLUCAN) 150 mg tablet Take immediately and repeat in 3 days as needed. empagliflozin (JARDIANCE) 25 mg tablet Take 1 tablet by mouth daily with breakfast. blood sugar diagnostic (BLOOD GLUCOSE TEST) test strip Test blood sugar(s) 2 times daily. Dx: Type 2 DM - Uncontrolled E11.65 Insulin: Yes Lancets lancets Test blood sugar(s) two times daily. Dx: E11.65. Insulin: Yes No current facility-administered medications for this visit. PAST MEDICAL HISTORY Diagnosis Date Anxiety 12/29/2012 [...] LIG/TRNSXJ FLP TUBE ABDL/VAG APPR UNI/BI Tubal ligati (more content not included)... Normal [facility] HUMZA,GINGER Lezama ([id number]) 1980 F Date Time Provider Department 02/29/24 [facility] During your visit today, we recorded the following information about you: Preeti Copeland LPN 02/29/2024 9:45 AM Signed ----- Message from Lazara Melendez sent at 02/28/2024 5:02 PM EST ----- No infection. Just spilling glucose as you should be from Jardiance. Preeti Copeland LPN 02/29/2024 9:46 AM Signed Reviewed message with patient and she voiced understanding. Preeti Copeland LPN Allergies As of Date: 02/29/2024 Noted Allergy Reaction CATS 10/23/2009 4 - Hives 9 - Itching DUST 10/23/2009 Comments: environmental GRASS POLLEN 10/23/2009 9 - Itching ACETAMINOPHEN 01/07/2022 8 - GI Upset CARDIZEM (DILTIAZEM) 07/25/2013 8 - GI Upset 11 - Vomiting PERCOCET (OXYCODONE-ACETAMINOPHE N)06/07/2016 11 - Vomiting ZYRTEC (CETIRIZINE HCL) 08/22/2013 4 - Hives Date Reviewed: 02/27/2024 Reviewed by: LAZARA MELENDEZ - Fully Assessed Reason for Visit: Results [95] Prescriptions as of 02/29/2024 - cephALEXin (KEFLEX) 500 mg capsule Take 1 capsule by mouth two times a day for 5 days. - atorvastatin (LIPITOR) 20 mg tablet Take 1 tablet by mouth once daily. - flash glucose sensor (FREESTYLE ANA 2 SENSOR) kit 2 Each three times a day as needed. - gabapentin (NEURONTIN) 800 mg tablet Take 1 tablet by mouth three times a day for 90 days. - DULoxetine (CYMBALTA) 40 mg cpDR Take 1 capsule by mouth once daily. - insulin glargine (LANTUS SOLOSTAR U-100 INSULIN) 100 unit/mL (3 mL) Inject 40 Units subcutaneously daily at bedtime. - linaGLIPtin (TRADJENTA) 5 mg tab Take 1 tablet by mouth once daily. - levonorgestrel (MIRENA) 21 mcg/24 hr (8 yrs) 52 mg IUD 1 Each by INTRAUTERINE route as directed. - STIOLTO RESPIMAT 2.5-2.5 mcg/actuation Inhale 2 Puffs as instructed once daily. - albuterol HFA (PROVENTIL HFA, VENTOLIN HFA) 90 mcg/actuation inhaler Inhale 2 Puffs as instructed every 4 hours as needed for wheezing/shortness of breath. - flash glucose scanning reader (FREESTYLE ANA 2 READER) 1 Each every hour as needed. - Insulin [place], Disposable, (SURE-FINE PEN NEEDLES) 31 gauge x /16 Daily injections - fluconazole (DIFLUCAN) 150 mg tablet Take immediately and repeat in 3 days as needed. - empagliflozin (JARDIANCE) 25 mg tablet Take 1 tablet by mouth daily with breakfast. - blood sugar diagnostic (BLOOD GLUCOSE TEST) test strip Test blood sugar(s) 2 times daily. Dx: Type 2 DM - Uncontrolled E11.65 Insulin: Yes - Lancets lancets Test blood sugar(s) two times daily. Dx: E11.65. 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] 03/07/2015 Lupus (HCC) [[id number]] 03/07/2015 Fibromyalgia [M79.7] 03/07/2015 Patellofemoral instability of [...] Mixed hyperlipidemia [E78.2] 10/01/2021 Encounter Status:Closed by PREETI COPELAND on 02/29/24 Normal [facility] Bacteria Ur Culton 11-04-202 4 Bacteria identified Cx Nom (U) ORGANISM ID: 1 10,000 -<50,000 CFU/ml Normal urogenital raymundo Normal [facility] Comment on above: Performed By: #### 6 30-4 ####[facility] LABCLIA [id number] [address] [place] CNOVon 02-27-2024 CNOV Office Visit (FAMPWS ) GINGER CHING ([id number]) 1980 F Date Time Provider Department 02/27/24 2:00 PM LAZARA MELENDEZ FAMPWS During your visit today, we recorded the following information about you: Temperature Pulse Blood pressure Weight 97 degrees 88/minute 122/64 94.8 kg Lazara Melendez, WEB CONTENT COORDINATOR.MAINTENANCE WELDER 02/27/2024 2:16 PM Signed This is a 43 year old female who presents today with: Patient presents with: Ingrown Toenail: Left great toe, ingrown nail HISTORY OF PRESENT ILLNESS: Ginger Ching is a 43 year old female. Patient presents with: Ingrown Toenail: Left great toe, ingrown nail Left great toe is red, warm distal tip and painful. Noticed an ingrown toenail on lateral aspect. Had to quit job because of pain. Rubbing bottoms of feet with vaseline for scaly rough heels. PAST MEDICAL HISTORY: PAST MEDICAL HISTORY Diagnosis Date Anxiety 12/29/2012 [...] Dust, Grass Pollen, Acetaminophen, Cardizem [Diltiazem], Percocet [Oxycodone-Acetaminophe n], and Zyrtec [Cetirizine Hcl] MEDICATIONS Current Outpatient Medications Medication Sig gabapentin (NEURONTIN) 800 mg tablet Take 1 tablet by mouth three times a day for 90 days. DULoxetine (CYMBALTA) 40 mg cpDR Take 1 capsule by mouth once daily. linaGLIPtin (TRADJENTA) 5 mg tab Take 1 tablet by mouth once daily. levonorgestrel (MIRENA) 21 mcg/24 hr (8 yrs) 52 mg IUD 1 Each by INTRAUTERINE route as directed. STIOLTO RESPIMAT 2.5-2.5 mcg/actuation Inhale 2 Puffs as instructed once daily. albuterol HFA (PROVENTIL HFA, VENTOLIN HFA) 90 mcg/actuation inhaler Inhale 2 Puffs as instructed every 4 hours as needed for wheezing/shortness of breath. empagliflozin (JARDIANCE) 25 mg tablet Take 1 tablet by mouth daily with breakfast. cephALEXin (KEFLEX) 500 mg capsule Take 1 capsule by mouth two times a day for 5 days. flash glucose sensor (FREESTYLE ANA 2 SENSOR) kit 2 Each three times a day as needed. insulin glargine (LANTUS SOLOSTAR U-100 INSULIN) 100 unit/mL (3 mL) Inject 40 Units subcutaneously daily at bedtime. flash glucose scanning reader (FREESTYLE ANA 2 READER) 1 Each every hour as needed. Insulin [place], Disposable, (SURE-FINE PEN NEEDLES) 31 gauge x 3/16 Daily injections fluconazole (DIFLUCAN) 150 mg tablet Take immediately and repeat in 3 days as needed. blood sugar diagnostic (BLOOD GLUCOSE TEST) test strip Test blood sugar(s) 2 times daily. Dx: Type 2 DM - Uncontrolled E11.65 Insulin: Yes Lancets lancets Test blood sugar(s) two times daily. Dx: E11.65. Insulin: Yes levonorgestrel (MIRENA) 20 mcg/24 hours (7 yrs) 52 mg IUD 1 Each by INTRAUTERINE route continuous. No current facility-administered medications for this visit. FAMILY HISTORY Problem Relation Age of Onset Heart Mother Diabetes Mother Hypertension Mother Arthritis Mother Heart Father Arthritis Father Cancer Maternal Grandmother stomach cancer. Social History Tobacco Use Smoking status: Every Day Current packs/day: 0.50 Average packs/day: 0.5 packs/day for 20.0 years (10.0 ttl pk-yrs) Types: Cigarettes Smokeless tobacco: Never Substance Use Topics Alcohol use: Yes Comment: occ Drug use: No EXAM: BP 122/64 Pulse 88 Temp 36.1 ?C (97 ?F) (Tympanic) Wt 94.8 kg (209 lb) LMP 08/13/2023 (Within Days) SpO2 96% BMI 35.87 kg/m? PHYSICAL EXAM: Physical Exam Vitals reviewed. Constitutional: Appearance: Normal appearance. Musculoskeletal: Comments: Left great toe with an ingrown nail that is swollen and painful. No drainage but red and tender even to light touch. Skin: General: Skin is warm and dry. Comments: Great toe red and inflamed. No open area. Neurological: Mental Status: She is alert and oriented to person, place, and time. Psychiatric: Mood and Affect: Mood normal. Behavior: Behavior normal. LABS: urine dip and culture ASSESSMENT/PLAN: 1. Ingrown toenail - ICD9: 703.0, ICD10: L60.0 (primary diagnosis) Start Keflex - CONSULT TO PODIATRY - CEPHALEXIN 500 MG CAPSULE 2 x day for 5 days 2. Type 2 diabetes mellitus with hyperglycemia, with long-term current use of insulin (FORMERLY [facility]) - ICD9: 250.00, 790.29, V58.67, ICD10: E11.65, Z79.4 - Uncontrolled - Continue current medications but switch Lantus to AM - ATORVASTATIN 20 MG TABLET 3. (more content not included)... Normal [facility] UA DIP, URINE (POC)on 2023 BILIRUBIN UA (POCT) Negative Negative [facility] CLARITY UA (POCT) Clear [facility] COLOR UA (POCT) Yellow [facility] GLUCOSE UA (POCT) >=1000 Abnormal Negative mg/dL [facility] Hemoglobin Ql (U) Negative Negative [facility] Interpretation and review of laboratory results Abnormal [facility] KETONE UA (POCT) Negative Negative mg/dL [facility] LEUKOCYTES UA (POCT) Negative Negative [facility] NITRITE UA (POCT) Negative Negative [facility] PH UA (POCT) 6.0 4.5 - 8.0 [facility] Protein Ql (U) Negative Negative mg/dL [facility] SPECIFIC GRAVITY UA (POCT) 1.015 1.005 - 1.030 [facility] UROBILINOGEN UA (POCT) 0.2 Normal E.U./d L [facility] Location:[address], [place], [place], [address] [place] [address] [facility] XR Lumbar spine 3 Viewson IMPRESSION: Lumbar spine degenerative changes. Grassroots Organizer: PSCB Transcribe Date/Time: Feb 02 2024 9:54A Dictated by : UTE BLACKMAN MD This examination was interpreted and the report reviewed and electronically signed by: UTE BLACKMAN MD on Feb 02 2024 9:56AM [facility] DIVISION OF RADIOLOGY * * *Final Report* * * DATE OF EXAM: Feb 01 2024 2:35PM WOX 5228 - XR LUMBAR 3V AP/LAT/L5-S1 / PROCEDURE REASON: Paresthesia of bilateral legs * * * * Physician Interpretation * * * * EXAM TITLE: XR LUMBAR 3V AP/LAT/L5-S1 EXAM DATE/TIME: 02/01/2024 2:35 PM COMPARISON: None. CLINICAL INDICATION/HISTORY: Pain in the legs. TECHNIQUE: AP, lateral and cone down lateral views of the lumbar spine are presented. FINDINGS: There are five iol-hwk-ryiprcr lumbar vertebrae. No fracture or subluxations are noted. The disc spaces are grossly preserved. There is mild osteophyte formation. A few Schmorl's nodes identified. Kissing spine seen on lateral view. Others: Degenerative changes seen in the lower thoracic spine. DIVISION OF RADIOLOGY Provider, [facility] - 02/02/2024 * * *Final Report* * * DATE OF EXAM: Feb 01 2024 2:35PM WOX 5228 - XR LUMBAR 3V AP/LAT/L5-S1 / PROCEDURE REASON: Paresthesia of bilateral legs * * * * Physician Interpretation * * * * EXAM TITLE: XR LUMBAR 3V AP/LAT/L5-S1 EXAM DATE/TIME: 02/01/2024 2:35 PM COMPARISON: None. CLINICAL INDICATION/HISTORY: Pain in the legs. TECHNIQUE: AP, lateral and cone down lateral views of the lumbar spine are presented. FINDINGS: There are five jza-ick-bswdlhb lumbar vertebrae. No fracture or subluxations are noted. The disc spaces are grossly preserved. There is mild osteophyte formation. A few Schmorl's nodes identified. Kissing spine seen on lateral view. Others: Degenerative changes seen in the lower thoracic spine. IMPRESSION IMPRESSION: Lumbar spine degenerative changes. Grassroots Organizer: PSCShira Transcribe Date/Time: Feb 02 2024 9:54A Dictated by : UTE BLACKMAN MD This examination was interpreted and the report reviewed and electronically signed by: UTE BLACKMAN MD on Feb 02 2024 9:56AM EST [facility] XR Lumbar spine 3 ViewsOrder ed By: Ccf Provider on 02-02-2024 [facility] XR Lumbar spine 3 Viewson Radiology Study observation (narrative) [facility] No Panel Informationon 12-15 Interpretation and review of laboratory results Normal [facility] T3on 12-16-2023 T3 [Mass/Vol] 101 ng/dL 79 - 165 ng/dL [facility] T4 FREE/FREE THYROXINEon Free T4 [Mass/Vol] 1.4 ng/dL 0.9 - 1.7 ng/dL [facility] CBC W Auto Differential pane l (Bld)on 12-15-2023 Basophils (Bld) [#/Vol] 0.06 10*3/uL [facility] Basophils/100 WBC (Bld) 0.7 % [facility] Differential cell count method Nom (Bld) Auto [facility] Eosinophils (Bld) [#/Vol] 0.12 10*3/uL [facility] Eosinophils/100 WBC (Bld) 1.4 % [facility] Erythrocyte distribution width (RBC) [Ratio] 13.0 % 11.5 - 15.0 % [facility] Hematocrit (Bld) [Volume fraction] 44.8 % 36.0 - 46.0 % [facility] Hemoglobin (Bld) [Mass/Vol] 15.1 g/dL 11.5 - 15.5 g/dL [facility] Immature granulocytes (Bld) [#/Vol] NINF [facility] Immature granulocytes/100 WBC (Bld) 0.2 % [facility] Lymphocytes (Bld) [#/Vol] 2.16 10*3/uL [facility] Lymphocytes/100 WBC (Bld) 24.4 % [facility] MCH (RBC) [Entitic mass] 30.7 pg 26.0 - 34.[address] [facility] MCHC (RBC) [Mass/Vol] 33.7 g/dL 30.5 - 36.0 g/dL [facility] MCV (RBC) [Entitic vol] 91.1 fL 80.0 - 100.[address] [facility] Monocytes (Bld) [#/Vol] 0.49 10*3/uL [facility] Monocytes/100 WBC (Bld) 5.5 % [facility] Neutrophils (Bld) [#/Vol] 6.00 10*3/uL [facility] Neutrophils/100 WBC (Bld) 67.8 % [facility] Nucleated RBC (Bld) [#/Vol] NINF [facility] Nucleated RBC/100 WBC (Bld) [Ratio] 0.0 % /[address] [facility] Platelet mean volume (Bld) [Entitic vol] 10.6 fL 9.0 - 12.[address] [facility] Platelets (Bld) [#/Vol] 263 10*3/uL [facility] RBC (Bld) [#/Vol] 4.92 10*6/uL 3.90 - 5.2 0 m/uL [facility] WBC (Bld) [#/Vol] 8.85 10*3/uL [facility] BACTERIAL VAGINOSIS NAATon 0 09-15-2023 Interpretation and review of laboratory results Normal [facility] Lactobacillus crispatus+gasseri+aaron enii + Gardnerella vaginalis + Atopobium vaginae rRNA KERRY+probe Ql (Vag fld) Negative Negative for bacterial vaginosis [facility] C. trachomatis+N. gonorrhoea e DNA KERRY+probe Ql (Unsp spec)on 09-15-2023 C. trachomatis rRNA KERRY+probe Ql (Unsp spec) Negative Negative for Chlamydia trachomatis by amplificaton [facility] Interpretation and review of laboratory results Normal [facility] N. gonorrhoeae rRNA KERRY+probe Ql (Unsp spec) Negative Negative for Neisseria gonorrhoeae by amplification [facility] LORENZO/TRICHOMONAS NAATon 0 09-14-2023 C. glabrata RNA KERRY+probe Ql (Vag fld) Positive Abnormal Negative for Lorenzo glabrata [facility] Lorenzo sp DNA KERRY+probe Ql (Vag fld) Negative Negative for Lorenzo species [facility] Interpretation and review of laboratory results Abnormal [facility] T. vaginalis DNA KERRY+probe Ql (Unsp spec) Negative Negative for Trichomonas vaginalis by amplification [facility] .Auto Diffon 09-01-2023 Basophil, Absolute 0.1 10 3/mcL Normal 0.0-0.2 [facility] ([place]) Comment on above: Performed By: #### A ISAI, TSH, FT3, ADIFF, MG, PBNP, CBC, MORPH #### [address] [address] #### T4 #### [address] [address] Basophils/100 WBC (Bld) 0.7 % Normal 0.0-2.5 [facility] ([place]) Comment on above: Performed By: #### A ISAI, TSH, FT3, ADIFF, MG, PBNP, CBC, MORPH #### [address] [address] #### T4 #### [address] [address] Eosinophil, Absolute 0.2 10 3/mcL Normal 0.0-0.4 [facility] ([place]) Comment on above: Performed By: #### A ISAI, TSH, FT3, ADIFF, MG, PBNP, CBC, MORPH #### [address] [address] #### T4 #### [address] [address] Eosinophils/100 WBC (Bld) 2.1 % Normal 0.0-7.0 [facility] ([place]) Comment on above: Performed By: #### A ISAI, TSH, FT3, ADIFF, MG, PBNP, CBC, MORPH #### [place] [address] #### T4 #### [address] [address] Lymphocyte, Absolute 1.7 10 3/mcL Normal 0.8-3.9 [facility] ([place]) Comment on above: Performed By: #### A ISAI, TSH, FT3, ADIFF, MG, PBNP, CBC, MORPH #### [place] [address] #### T4 #### [address] [address] Lymphocytes/100 WBC (Bld) 21.8 % Normal 10.0-50.0 [facility] ([place]) Comment on above: Performed By: #### A ISAI, TSH, FT3, ADIFF, MG, PBNP, CBC, MORPH #### [place] [address] #### T4 #### [address] [address] Monocyte, Absolute 0.5 10 3/mcL Normal 0.2-1.0 [facility] ([place]) Comment on above: Performed By: #### A ISAI, TSH, FT3, ADIFF, MG, PBNP, CBC, MORPH #### [place] [address] #### T4 #### [address] [address] Monocytes/100 WBC (Bld) 6.2 % Normal 1.7-13.0 [facility] ([place]) Comment on above: Performed By: #### A ISAI, TSH, FT3, ADIFF, MG, PBNP, CBC, MORPH #### [place] [address] #### T4 #### [address] [address] Neutrophils/100 WBC (Bld) 69.2 % Normal 37.0-80.0 [facility] ([place]) Comment on above: Performed By: #### A ISAI, TSH, FT3, ADIFF, MG, PBNP, CBC, MORPH #### [place] [address] #### T4 #### [place] [address] .Morphon 09-01-2023 Platelet Estimate Normal Normal [facility] ([place] Comment on above: Performed By: #### A ISAI, TSH, FT3, ADIFF, MG, PBNP, CBC, MORPH #### [place] [address] #### T4 #### [place] [address] .NEUABSon 09-01-2023 Neutrophil, Absolute 5.3 10 3/mcL Normal 2.9-6.2 [facility] ([place]) Comment on above: Performed By: #### A ISAI, TSH, FT3, ADIFF, MG, PBNP, CBC, MORPH #### [place] [address] #### T4 #### [place] [address] CBCon 09-01-2023 Erythrocyte distribution width (RBC) [Ratio] 14.1 % Normal 11.5-14.5 [facility] ([place]) Comment on above: Performed By: #### A ISAI, TSH, FT3, ADIFF, MG, PBNP, CBC, MORPH #### [place] [address] #### T4 #### [place] [address] Hematocrit (Bld) [Volume fraction] 46.8 % Normal 37.0-47.0 [facility] ([place]) Comment on above: Performed By: #### A ISAI, TSH, FT3, ADIFF, MG, PBNP, CBC, MORPH #### [place] [address] #### T4 #### [place] [address] Hgb 16.2 G/dL High 12.0-16.0 [facility] ([place] Comment on above: Performed By: #### A ISAI, TSH, FT3, ADIFF, MG, PBNP, CBC, MORPH #### [place] [address] #### T4 #### [place] [address] MCH (RBC) [Entitic mass] 31.2 pg Normal 27.0-31.2 [facility] ([place] Comment on above: Performed By: #### A ISAI, TSH, FT3, ADIFF, MG, PBNP, CBC, MORPH #### [place] [address] #### T4 #### [place] [address] MCHC 34.6 G/dL Normal 33.0-37.0 [facility] ([place] Comment on above: Performed By: #### A ISAI, TSH, FT3, ADIFF, MG, PBNP, CBC, MORPH #### [place] [address] #### T4 #### [place] [address] MCV (RBC) [Entitic vol] 90.3 fL Normal 80.0-94.0 [facility] ([place] Comment on above: Performed By: #### A ISAI, TSH, FT3, ADIFF, MG, PBNP, CBC, MORPH #### [place] [address] #### T4 #### [place] [address] Platelet 206 10 3/mcL Normal 130-400 [facility] ([place] Comment on above: Performed By: #### A ISAI, TSH, FT3, ADIFF, MG, PBNP, CBC, MORPH #### [place] [address] #### T4 #### [place] [address] Platelet mean volume (Bld) [Entitic vol] 8.0 fL Normal 7.4-10.4 [facility] ([place] Comment on above: Performed By: #### A ISAI, TSH, FT3, ADIFF, MG, PBNP, CBC, MORPH #### [address] [address] #### T4 #### [place] [address] RBC 5.18 10 6/mcL Normal 4.20-5.40 [facility] ([place] Comment on above: Performed By: #### A ISAI, TSH, FT3, ADIFF, MG, PBNP, CBC, MORPH #### [address] [address] #### T4 #### [place] [address] WBC 7.7 10 3/mcL Normal 4.6-10.8 [facility] ([place] Comment on above: Performed By: #### A ISAI, TSH, FT3, ADIFF, MG, PBNP, CBC, MORPH #### [place] [address] #### T4 #### [place] [address] FT3on 09-01-2023 Free T3 [Mass/Vol] 2.81 pg/mL Normal 2.30-4.00 [facility] ([place]) Comment on above: Performed By: #### A ISAI, TSH, FT3, ADIFF, MG, PBNP, CBC, MORPH #### [place] [address] #### T4 #### [place] [address] LABORATORYOrdered By: SYSTEM SYSTEM on 09-01-2023 Basophil, Absolute 0.1 103/mcL Normal 0.0 - 0.2 10^3/mcL AO Workflow SS Basophils/100 WBC (Bld) 0.7 % Normal 0.0 - 2.5 % AO Workflow SS Eosinophil, Absolute 0.2 103/mcL Normal 0.0 - 0 .4 10^3/mcL AO Workflow SS Eosinophils/100 WBC (Bld) 2.1 % Normal 0.0 - 7.0 % AO Workflow SS Erythrocyte distribution width (RBC) [Ratio] 14.1 % Normal 11.5 - 14.5 % AO Workflow SS Free T3 [Mass/Vol] 2.81 pg/mL Normal 2.30 - 4. 00 pg/mL AO ADM SS Hematocrit (Bld) [Volume fraction] 46.8 % Normal 37.0 - 47.0 % AO Workflow SS Hemoglobin (Bld) [Mass/Vol] 16.2 G/dL High 12.0 - 16.0 G/dL AO Workflow SS Lymphocyte, Absolute 1.7 103/mcL Normal 0.8 - 3 .9 10^3/mcL AO Workflow SS Lymphocytes/100 WBC (Bld) 21.8 % Normal 10.0 - 50.0 % AO Workflow SS Magnesium [Mass/Vol] 2.1 mg/dL Normal 1.8 - 2 .4 mg/dL AO ADM SS MCH (RBC) [Entitic mass] 31.2 pg Normal 27.0 - 31.2 pg AO Workflow SS MCHC 34.6 G/dL Normal 33.0 - 37.0 G/dL AO Workflow SS MCV (RBC) [Entitic vol] 90.3 fL Normal 80.0 - 94.0 fL AO Workflow SS Monocyte, Absolute 0.5 103/mcL Normal 0.2 - 1.0 10^3/mcL AO Workflow SS Monocytes/100 WBC (Bld) 6.2 % Normal 1.7 - 13.0 % AO Workflow SS Natriuretic peptide.B prohormone N-Terminal [Mass/Vol] 80 pg/mL Normal 0 - 125 pg/mL AO ADM SS Comment on above: Interpretive Data: N T-proBNP results of less than 300 pg/mL effectively rules out acute congestive heart failure with 99% negative predictive value. Neutrophil, Absolute 5.3 103/mcL Normal 2.9 - 6 .2 10^3/mcL AO Workflow SS Neutrophils/100 WBC (Bld) 69.2 % Normal 37.0 - 80.0 % AO Workflow SS Platelet mean volume (Bld) [Entitic vol] 8.0 fL Normal 7.4 - 10.4 fL AO Workflow SS Platelets (Bld) [#/Vol] 206 103/mcL Normal 130 - 400 10^3/mcL AO Workflow SS RBC (Bld) [#/Vol] 5.18 106/mcL Normal 4.20 - 5.4 0 10^6/mcL AO Workflow SS T4 [Mass/Vol] 11.5 ug/dL High 4.5 - 10.9 mcg/dL AH ADM SS Comment on above: Interpretive Data: * *Note - New Reference Range in effect 19 TSH Qn 0.27 m[IU]/L Low 0.36 - 3.74 mcIU/mL AO ADM SS WBC (Bld) [#/Vol] 7.7 103/mcL Normal 4.6 - 10.8 10^3/mcL AO Workflow SS LABORATORYOrdered By: Guille murphy on 09-01-2023 Platelet Estimate Normal (09/01/23 10:55 AM) Normal AO Hematology S MGon 09-01-2023 Magnesium [Mass/Vol] 2.1 mg/dL Normal 1.8-2.4 [facility] ([place]) Comment on above: Performed By: #### A ISAI, TSH, FT3, ADIFF, MG, PBNP, CBC, MORPH #### [place] [address] #### T4 #### [place] [address] PBNPon 09-01-2023 Natriuretic peptide B (Bld) [Mass/Vol] 80 pg/mL Normal 0-125 [facility] ([place]) Comment on above: Result Comment: NT-p roBNP results of less than 300 pg/mL effectively rules out acute congestive heart failure with 99% negative predictive value. Performed By: #### A ISAI, TSH, FT3, ADIFF, MG, PBNP, CBC, MORPH #### [place] [address] #### T4 #### [place] [address] T4on 09-01-2023 T4 [Mass/Vol] 11.5 ug/dL High 4.5-10.9 [facility] ([place]) Comment on above: Result Comment: No te - New Reference Range in effect 19 Performed By: #### A ISAI, TSH, FT3, ADIFF, MG, PBNP, CBC, MORPH #### [place] [id number] #### T4 #### [place] [address] TSHon 09-01-2023 TSH Qn 0.27 m[IU]/L Low 0.36-3.74 [facility] ([place]) Comment on above: Performed By: #### A ISAI, TSH, FT3, ADIFF, MG, PBNP, CBC, MORPH #### [address] [address] #### T4 #### [place] [address] NM MYOCARDIAL SPECT STRESS/R ESTon 08-15-2023 NM MYOCARDIAL SPECT STRESS/REST ORIGINAL NM MYOCARDIAL SPECT STRESS/REST CLINICAL STATEMENT: CP TECHNIQUE: Lexiscan dose:0.4 mg Radiopharmaceutical (stress): Tc-99m Sestamibi Dose:30.4 mCi Radiopharmaceutical (rest): Tc-99m Sestamibi Dose:10.4 mCi SPECT acquisition and processing Reconstruction and reorientation of SPECT images into short axis, vertical and horizontal long axis planes Quantitative LVEF assessment COMPARISON:2019 REPORT: Poststress myocardial perfusion images showed moderate perfusion defect at apical lateral wall and mid anterior wall Resting myocardial perfusion images showed similar perfusion LVEF 57% with normal wall motion and wall thickening TID 1.09 IMPRESSION: Negative for gross ischemia or infarct imaging part of the stress test, limited sensitivity due to poor quality study Extracardiac GI uptake was noted, breast attenuation was noted LVEF 57% with normal wall motion Compared to 2019 similar area perfusion defect was noted post in anterior and apical lateral monzon, but less severity. More matched perfusion defect was noted now Interpreted By: Kvng Vargas Preliminary Report By: Kvng Vargas Electronically Signed By: Kvng Vargas Dictated Date: 08/15/2023 2:54:13 PM Prelim Date: 08/15/2023 2:54:13 PM Sign Date: 08/15/2023 2:59:05 PM Ordering Provider:John Hatfield [facility] ([place]) No Panel InformationOrdered By: Hari Finn on 06-17-2023 Troponin I High Sensitivity 5 pg/mL 3.0-54.0 [facility] Comment on above: Please Note: New Annie t Units and Gender Specific Reference Ranges. For more information see Policy Stat Procedure Foley High Sensitivity Troponin (TNIH) and attachments. Absolute lymphocyte countOrd ered By: Haricesia Finn on 06-16-2023 Lymphocytes Auto (Unsp spec) [#/Vol] 2.44 10*3/uL 0.83-4.51 [facility] Automated lymphocyte count a s percentage of total leukocytesOrdered By: [facility] on 06-16-2023 Lymphocytes/100 WBC Auto (Unsp spec) 24.0 % 19-41 [facility] Basophil percentageOrdered B y: [facility] on 06-16-2023 Basophils/100 WBC (Bld) 0.8 % 0-1 [facility] Chloride [Moles/Vol] 111 mmol/L 98-107 [facility] Eosinophils/100 WBC (Bld) 1.7 % 0-5 [facility] Glucose [Mass/Vol] 265 mg/dL 74-106 [facility] Comment on above: Glucose result great er than or equal to 200 mg/dLsuggests DIABETES MELLITUS per A.D.A. criteria. Hemoglobin (Bld) [Mass/Vol] 15.4 g/dL 12.0-15.0 [facility] Monocytes/100 WBC (Bld) 5.9 % 0-10 [facility] Neutrophils (Bld) [#/Vol] 6.8 10*3/uL 2.0-7.7 [facility] Neutrophils/100 WBC (Bld) 67.3 % 47-70 [facility] Potassium [Moles/Vol] 4.0 mmol/L 3.5-5.1 [facility] Sodium [Moles/Vol] 140 mmol/L 136-145 [facility] WBC (Bld) [#/Vol] 10.2 10*3/uL 4.4-11.0 [facility] Determination of erythrocyte mean corpuscular volume (MCV)Ordered By: Haricesia Finn on 06-16-2023 MCV (RBC) [Entitic vol] 87.5 fL 81-99 [facility] Erythrocyte distribution wid th ratioOrdered By: [facility] on 06-16-2023 Erythrocyte distribution width (RBC) [Ratio] 13.9 % 11.6-14.6 [facility] Erythrocyte distribution wid th standard deviationOrdered By: Haricesia Finn on 06-16-2023 Erythrocyte distribution width (RBC) [Entitic vol] 44.4 fL 35.1-43.9 [facility] Hematocrit Auto (Bld) [Volum e fraction]Ordered By: Haricesia Finn on 06-16-2023 Hematocrit (Bld) [Volume fraction] 45.5 % 37-47 [facility] Immature granulocytes/100 WB C Auto (Bld)Ordered By: Haricesia Finn on 06-16-2023 Immature granulocytes/100 WBC (Bld) 0.300 % 0.0-0.9 [facility] Comment on above: IG% - Immature Granu locytes (promyelocytes, myelocytes and metamyelocytes) > 1% indicates that a LEFT SHIFT is Present. Laboratory - Chemistry and C hemistry - challengeOrdered By: Haricesia Finn on 06-16-2023 CO2 [Moles/Vol] 25.0 mmol/L 21.0-32.0 [facility] Urea nitrogen/Creatinine [Mass ratio] 20.4 mg/mg 10-20 [facility] Laboratory - Hematology and Cell countsOrdered By: Haricesia Finn on 06-16-2023 MCH (RBC) [Entitic mass] 29.6 pg 27.0-32.0 [facility] MCHC (RBC) [Mass/Vol] 33.8 g/dL 32-36 [facility] Nucleated RBC/100 WBC (Bld) [Ratio] 0 % 0-5 [facility] Platelet mean volume (Bld) [Entitic vol] 9.7 fL 6.2-12.0 [facility] Platelets (Bld) [#/Vol] 243 10*3/uL 150-450 [facility] No Panel InformationOrdered By: Haricesia Finn on 06-16-2023 Estimated Creatinine Clearance Calc 95.62 ml/min [facility] Estimated GFR (MDRD) Amer 90 mL/min >60 [facility] Comment on above: GFR Calc Estimated GFR (MDRD) Non-Af Amer 74 mL/min >60 [facility] Comment on above: Non- GFR Calc RBC Auto (Bld) [#/Vol]Ordere d By: Hari Finn on 06-16-2023 RBC (Bld) [#/Vol] 5.20 10*6/uL 4.2-5.4 [facility] Serum or plasma calcium gladys urement (mass/volume)Ordered By: Hari Finn on 06-16-2023 Calcium [Mass/Vol] 9.3 mg/dL 8.5-10.1 [facility] Serum or plasma creatinine m easurement (mass/volume)Ordered By: Hari Finn on 06-16-2023 Creatinine [Mass/Vol] 0.88 mg/dL 0.55-1.02 [facility] Comment on above: The validity of the calculated GFR & GFRAA in patients over 70 years has not been determined. Clinical correlation is essential. Serum or plasma urea nitroge n measurement (mass/volume)Ordered By: Hari Finn on 06-16-2023 Urea nitrogen [Mass/Vol] 18 mg/dL 7-18 [facility] Thin prep Papanicolaou smear with manual screeningOrdered By: Hari Finn on 06-16-2023 Thin prep Papanicolaou smear with manual screening 4 5-15 [facility] Laboratory - Microbiology an d Antimicrobial susceptibilityOrdered By: Guerrero Damon on 05-27-2023 SARS-CoV-2 (COVID-19) RNA KERRY+probe Ql (Unsp spec) [facility] Gram stain for investigation of transfusion reactionOrdered By: Audra Mcintosh on 05-11-2023 Microscopic observation Gram stain Nom (Unsp spec) [facility] Microbial respiratory cultur eOrdered By: Audra Mcintosh on 05-11-2023 Bacteria identified Respiratory culture Nom (Unsp spec) or Staphylococcus aureus isolated. [facility] Laboratory - Microbiology an d Antimicrobial susceptibilityOrdered By: Long Smith on 04-30-2023 SARS-CoV-2 (COVID-19) RNA KERRY+probe Ql (Unsp spec) Influenzae B [facility] XR Shoulder - right 3 Viewso n 02-28-2023 IMPRESSION: Findings are suggestive of degenerative changes in the acromioclavicular joint. Grassroots Organizer: KATHRINE Transcribe Date/Time: Feb 28 2023 4:56P Dictated by : UTE BLACKMAN MD This examination was interpreted and the report reviewed and electronically signed by: UTE BLACKMAN MD on Feb 28 2023 4:58PM [facility] DIVISION OF RADIOLOGY * * *Final Report* * * DATE OF EXAM: Feb 24 2023 12:20PM WOX 5253 - XR SHLDR >/=3V AP/CHRISTA AP/OTHR RT / PROCEDURE REASON: Acute pain of right shoulder * * * * Physician Interpretation * * * * EXAM TITLE: XR SHLDR >/=3V AP/CHRISTA AP/OTHR RT EXAM DATE/TIME: 02/24/2023 12:20 PM COMPARISON: None. CLINICAL INDICATION/HISTORY: Acute shoulder pain TECHNIQUE: AP, true AP and Y views of the right shoulder are presented FINDINGS: No acute fractures or subluxations are noted. The acromioclavicular joint space narrowing is visualized, with associated osteophyte formation and subchondral cystic formation. Normal appearance of the glenohumeral joint. The acromiohumeral interval is preserved. The mineralization of the bones is normal. There is no significant soft tissue swelling. DIVISION OF RADIOLOGY Provider, [facility] - 02/28/2023 * * *Final Report* * * DATE OF EXAM: Feb 24 2023 12:20PM WOX 5253 - XR SHLDR >/=3V AP/CHRISTA AP/OTHR RT / PROCEDURE REASON: Acute pain of right shoulder * * * * Physician Interpretation * * * * EXAM TITLE: XR SHLDR >/=3V AP/CHRISTA AP/OTHR RT EXAM DATE/TIME: 02/24/2023 12:20 PM COMPARISON: None. CLINICAL INDICATION/HISTORY: Acute shoulder pain TECHNIQUE: AP, true AP and Y views of the right shoulder are presented FINDINGS: No acute fractures or subluxations are noted. The acromioclavicular joint space narrowing is visualized, with associated osteophyte formation and subchondral cystic formation. Normal appearance of the glenohumeral joint. The acromiohumeral interval is preserved. The mineralization of the bones is normal. There is no significant soft tissue swelling. IMPRESSION IMPRESSION: Findings are suggestive of degenerative changes in the acromioclavicular joint. Grassroots Organizer: KATHRINE Transcribe Date/Time: Feb 28 2023 4:56P Dictated by : UTE BLACKMAN MD This examination was interpreted and the report reviewed and electronically signed by: UTE BLACKMAN MD on Feb 28 2023 4:58PM EST [facility] XR Shoulder - right 3 ViewsO rdered By: Ccf Provider on 02-28-2023 [facility] XR Shoulder - right 3 Viewso n 02-24-2023 Radiology Study observation (narrative) [facility] MENDEL SCREENINGon 10-25-2022 [facility] ESR Westergren method (Bld) [Velocity]on 06-29-2022 ESR (Bld) [Velocity] 31 mm/h High 0 - 20 mm/hr Cl [facility] XR Chest PA and Lateralon IMPRESSION: Pneumonia bilaterally has improved but not resolved. Continued follow-up recommended. Right pleural effusion. Grassroots Organizer: KATHRINE Transcribe Date/Time: Jun 29 2022 4:51P Dictated by : TAMARA FAROOQ MD This examination was interpreted and the report reviewed and electronically signed by: TAMARA FAROOQ MD on Jun 29 2022 4:53PM [facility] DIVISION OF RADIOLOGY * * *Final Report* * * DATE OF EXAM: Jun 29 2022 3:47PM WOX 5291 - XR CHEST 2V FRONTAL/LAT / PROCEDURE REASON: Pneumonia of right lower lobe due to methicillin resistant Staphylococcus aureus * * * * Physician Interpretation * * * * EXAMINATION: CHEST RADIOGRAPH (2 VIEW FRONTAL & LATERAL) CLINICAL HISTORY: Pneumonia of right lower lobe due to methicillin resistant Staphylococcus aureus (MRSA) ([facility]) MQ: XC2_6 EXAM DATE/TIME: 06/29/2022 3:47 PM COMPARISON: 04/27/2022 RESULT: Lines, tubes, and devices: None. Lungs and pleura: Bilateral foci of airspace disease, most pronounced in right middle and left lower lung burnette has improved but not resolved. No new significant collapse or consolidation. Right pleural effusion. No pneumothorax Cardiomediastinal silhouette: Normal cardiomediastinal silhouette. Bones and soft tissues: Degenerative changes throughout the spine. Exaggerated dorsal kyphosis at the thoracolumbar junction is stable DIVISION OF RADIOLOGY Provider, Willie Arias [facility] - 06/29/2022 * * *Final Report* * * DATE OF EXAM: Jun 29 2022 3:47PM WOX 5291 - XR CHEST 2V FRONTAL/LAT / PROCEDURE REASON: Pneumonia of right lower lobe due to methicillin resistant Staphylococcus aureus * * * * Physician Interpretation * * * * EXAMINATION: CHEST RADIOGRAPH (2 VIEW FRONTAL & LATERAL) CLINICAL HISTORY: Pneumonia of right lower lobe due to methicillin resistant Staphylococcus aureus (MRSA) ([facility]) MQ: XC2_6 EXAM DATE/TIME: 06/29/2022 3:47 PM COMPARISON: 04/27/2022 RESULT: Lines, tubes, and devices: None. Lungs and pleura: Bilateral foci of airspace disease, most pronounced in right middle and left lower lung burnette has improved but not resolved. No new significant collapse or consolidation. Right pleural effusion. No pneumothorax Cardiomediastinal silhouette: Normal cardiomediastinal silhouette. Bones and soft tissues: Degenerative changes throughout the spine. Exaggerated dorsal kyphosis at the thoracolumbar junction is stable IMPRESSION IMPRESSION: Pneumonia bilaterally has improved but not resolved. Continued follow-up recommended. Right pleural effusion. Grassroots Organizer: PSCB Transcribe Date/Time: Jun 29 2022 4:51P Dictated by : TAMARA FAROOQ MD This examination was interpreted and the report reviewed and electronically signed by: TAMARA FAROOQ MD on Jun 29 2022 4:53PM EST [facility] Radiology Study observation (narrative) [facility] XR Chest PA and LateralOrder ed By: Ccf Provider on 06-29-2022 [facility] Absolute lymphocyte countOrd ered By: Dr. Verma on 04-29-2022 Lymphocytes Auto (Unsp spec) [#/Vol] 2.16 10*3/uL 0.83-4.51 [facility] Basophil percentageOrdered B y: Dr. Verma on 04-29-2022 Basophil percentage 0-5 SEEN /hpf 0-5 [facility] Basophils/100 WBC (Bld) 0.5 % 0-1 [facility] Chloride [Moles/Vol] 99 mmol/L 98-[facility] Eosin[facility] WBC (Bld) 1.3 % 0-5 [facility] Glucose [Mass/Vol] 491 mg/dL 74-106 [facility] Comment on above: Critical Result(s) C alled at: 11:22:54 04/29/2022 by: Tea Morales. Results read back by same.Glucose result greater than or equal to 200 mg/dLsuggests DIABETES MELLITUS per A.D.A. criteria. Neutrophils (Bld) [#/Vol] 6.4 10*3/uL 2.0-7.7 [facility] Neutrophils/100 WBC (Bld) 69.0 % 47-70 [facility] Potassium [Moles/Vol] 3.9 mmol/L 3.5-5.1 [facility] Sodium [Moles/Vol] 132 mmol/L 136-145 [facility] WBC (Bld) [#/Vol] 9.2 10*3/uL 4.4-11.0 [facility] Bilirubin Test strip Ql (U)O rdered By: Dr. Verma on 04-29-2022 Bilirubin Ql (U) Negative Negative [facility] Blood erythrocytes count (nu mber/volume)Ordered By: Dr. Verma on 04-29-2022 RBC (Bld) [#/Vol] 4.07 10*6/uL 4.2-5.4 [facility] Blood hemoglobin measurement (mass/volume)Ordered By: Dr. Verma on 04-29-2022 Hemoglobin (Bld) [Mass/Vol] 12.2 g/dL 12.0-15.0 [facility] Blood lymphocytes/100 leukoc ytesOrdered By: Dr. Verma on 04-29-2022 Lymphocytes/100 WBC (Bld) 23.5 % 19-41 [facility] Blood monocytes/100 leukocyt esOrdered By: Dr. Verma on 04-29-2022 Monocytes/100 WBC (Bld) 5.3 % 0-10 [facility] Blood platelet mean volumeOr dered By: Dr. Verma on 04-29-2022 Platelet mean volume (Bld) [Entitic vol] 9.3 fL 6.2-12.0 [facility] COVID-19 virus antigen assay Ordered By: Dr. Verma on 04-29-2022 SARS-CoV-2 (COVID-19) Ag IA.rapid Ql (Resp) [facility] Determination of erythrocyte mean corpuscular volume (MCV)Ordered By: Dr. Verma on 04-29-2022 MCV (RBC) [Entitic vol] 91.2 fL 81-99 [facility] Glucose Glucometer (BldC) [M ass/Vol]Ordered By: Dr. Verma on 04-29-2022 Glucose [Mass/Vol] 222 mg/dL 74-106 [facility] Comment on above: MANAGEMENT OF PATIEN T CARE PER NURSING PROTOCOL Glucose Glucometer (BldC) [M ass/Vol]on 04-29-2022 Glucose [Mass/Vol] 164 mg/dL 74-106 [facility] Work Phone: Comment on above: MANAGEMENT OF PATIEN T CARE PER NURSING PROTOCOL Hematocrit Auto (Bld) [Volum e fraction]Ordered By: Dr. Verma on 04-29-2022 Hematocrit (Bld) [Volume fraction] 37.1 % 37-47 [facility] Ketones Test strip Ql (U)Ord ered By: Dr. Verma on 04-29-2022 Ketones Ql (U) Negative Negative [facility] Laboratory - Chemistry and C hemistry - challengeOrdered By: Dr. Verma on 04-29-2022 CO2 [Moles/Vol] 26.0 mmol/L 21.0-32.0 [facility] Urea nitrogen/Creatinine [Mass ratio] 7.5 mg/mg 10-20 [facility] Laboratory - Hematology and Cell countsOrdered By: Dr. Verma on 04-29-2022 Erythrocyte distribution width (RBC) [Entitic vol] 45.3 fL 35.1-43.9 [facility] Erythrocyte distribution width (RBC) [Ratio] 13.7 % 11.6-14.6 [facility] Immature granulocytes/100 WBC (Bld) 0.400 % 0.0-0.9 [facility] Comment on above: IG% - Immature Granu locytes (promyelocytes, myelocytes and metamyelocytes) > 1% indicates that a LEFT SHIFT is Present. MCH (RBC) [Entitic mass] 30.0 pg 27.0-32.0 [facility] Nucleated RBC/100 WBC (Bld) [Ratio] 0 % 0-5 [facility] MCHC Auto (RBC) [Mass/Vol]Or dered By: Dr. Verma on 04-29-2022 MCHC (RBC) [Mass/Vol] 32.9 g/dL 32-36 [facility] Mucus LM Ql (Urine sed)Order ed By: Dr. Verma on 04-29-2022 Mucus Ql (Urine sed) 0 SEEN /hpf [facility] Nitrite Test strip Ql (U)Ord ered By: Dr. Verma on 04-29-2022 Nitrite Ql (U) Negative Negative [facility] No Panel InformationOrdered By: Dr. Verma on 04-29-2022 Estimated Creatinine Clearance Calc 70.87 ml/min [facility] Estimated GFR (MDRD) Amer 84 mL/min >60 [facility] Comment on above: GFR Calc Estimated GFR (MDRD) Non-Af Amer 70 mL/min >60 [facility] Comment on above: Non- GFR Calc Platelets bldOrdered By: Dr. Verma on 04-29-2022 Platelets (Bld) [#/Vol] 367 10*3/uL 150-450 [facility] Protein Test strip Ql (U)Ord ered By: Dr. Verma on 04-29-2022 Protein Ql (U) 15 mg/dl Negative [facility] Serum or plasma calcium gladys urement (mass/volume)Ordered By: Dr. Verma on 04-29-2022 Calcium [Mass/Vol] 9.0 mg/dL 8.5-10.1 [facility] Serum or plasma creatinine m easurement (mass/volume)Ordered By: Dr. Verma on 04-29-2022 Creatinine [Mass/Vol] 0.94 mg/dL 0.55-1.02 [facility] Comment on above: The validity of the calculated GFR & GFRAA in patients over 70 years has not been determined. Clinical correlation is essential. Serum or plasma urea nitroge n measurement (mass/volume)Ordered By: Dr. Verma on 04-29-2022 Urea nitrogen [Mass/Vol] 7 mg/dL 7-18 [facility] Squamous epithelial cells de tection in urine sediment by light microscopyOrdered By: Dr. Verma on 04-29-2022 Epithelial cells.squamous LM Ql (Urine sed) 5-10 SEEN /hpf 5-10 [facility] Thin prep Papanicolaou smear with manual screeningOrdered By: Dr. Verma on 04-29-2022 Thin prep Papanicolaou smear with manual screening 7 5-15 [facility] Urine blood detectionOrdered By: Dr. Verma on 04-29-2022 RBC Ql (U) 25 /ul Negative [facility] RBC Ql (U) 0 SEEN /hpf 0-5 [facility] Urine clarityOrdered By: Dr. Verma on 04-29-2022 Clarity (U) Clear Clear [facility] Urine color determinationOrd ered By: Dr. Verma on 04-29-2022 Color (U) Yellow Yellow [facility] Urine glucose detectionOrder ed By: Dr. Verma on 04-29-2022 Glucose Ql (U) 1000 mg/dl Normal [facility] Urine leukocyte esterase det ection by dipstickOrdered By: Dr. Verma on 04-29-2022 Leukocyte esterase Test strip Ql (U) 100 /ul Negative [facility] Urine pHOrdered By: Dr. Verma o n 04-29-2022 pH (U) 6.0 [pH] 5.0 - 8.0 [facility] Urine sediment bacteria coun t by microscopy (number/high power field)Ordered By: Dr. Verma on 04-29-2022 Bacteria LM.HPF (Urine sed) [#/Area] 0 /[HPF] None Seen [facility] Urine sediment yeast count b y microscopy (number/high powered field)Ordered By: Dr. Verma on 04-29-2022 Yeast LM.HPF (Urine sed) [#/Area] RARE /hpf None Seen [facility] Urine specific gravity measu rementOrdered By: Dr. Verma on 04-29-2022 Specific gravity (U) [Rel density] 1.010 1.002-1.030 [facility] Urobilinogen Auto test strip Ql (U)Ordered By: Dr. Verma on 04-29-2022 Urobilinogen Ql (U) Normal mg/dl Normal [facility] ALBUMIN/CREAT RATIO RND URon 04-28-2022 Albumin DL <= 20 mg/L (U) [Mass/Vol] 27.7 mg/L [facility] Albumin/Creatinine (U) [Mass ratio] 51 mg/g High <30 mg/g [facility] Creatinine (U) [Mass/Vol] 54.7 mg/dL 20.0 - 300.0 mg/dL [facility] CBC W Auto Differential pane l (Bld)on 04-27-2022 Basophils (Bld) [#/Vol] 0.06 10*3/uL <0.11 k/uL [facility] Basophils/100 WBC (Bld) 0.6 % [facility] Differential cell count method Nom (Bld) Auto [facility] Eosinophils (Bld) [#/Vol] 0.11 10*3/uL <0.46 k/uL [facility] Eosinophils/100 WBC (Bld) 1.0 % [facility] Erythrocyte distribution width (RBC) [Ratio] 13.6 % 11.5 - 15.0 % [facility] Hematocrit (Bld) [Volume fraction] 38.4 % 36.0 - 46.0 % [facility] Hemoglobin (Bld) [Mass/Vol] 12.4 g/dL 11.5 - 15.5 g/dL [facility] Immature granulocytes (Bld) [#/Vol] 0.03 10*3/uL <0.10 k/uL [facility] Immature granulocytes/100 WBC (Bld) 0.3 % [facility] Lymphocytes (Bld) [#/Vol] 2.78 10*3/uL 1.00 - 4.00 k/uL [facility] Lymphocytes/100 WBC (Bld) 26.3 % [facility] MCH (RBC) [Entitic mass] 30.0 pg 26.0 - 34.[address] [facility] MCHC (RBC) [Mass/Vol] 32.3 g/dL 30.5 - 36.0 g/dL [facility] MCV (RBC) [Entitic vol] 92.8 fL 80.0 - 100.[address] [facility] Monocytes (Bld) [#/Vol] 0.63 10*3/uL <0.87 k/uL [facility] Monocytes/100 WBC (Bld) 5.9 % [facility] Neutrophils (Bld) [#/Vol] 6.98 10*3/uL 1.45 - 7.50 k/uL [facility] Neutrophils/100 WBC (Bld) 65.9 % [facility] Nucleated RBC (Bld) [#/Vol] <0.01 k/uL [facility] Nucleated RBC/100 WBC (Bld) [Ratio] 0.0 /[address] [facility] Platelet mean volume (Bld) [Entitic vol] 9.5 fL 9.0 - 12.[address] [facility] Platelets (Bld) [#/Vol] 406 10*3/uL High 150 - 400 k/uL [facility] RBC (Bld) [#/Vol] 4.14 10*6/uL 3.90 - 5.2 0 m/uL [facility] WBC (Bld) [#/Vol] 10.59 10*3/uL 3.70 - 11 .00 k/uL [facility] Comprehensive metabolic 2000 panelon 04-27-2022 Albumin [Mass/Vol] 2.9 g/dL Low 3.9 - 4.9 g/dL [facility] ALP [Catalytic activity/Vol] 208 U/L High 34 - 123 U/L [facility] ALT [Catalytic activity/Vol] 10 U/L 7 - 38 U/L [facility] Anion gap [Moles/Vol] 10 mmol/L 9 - 18 mmol/L [facility] AST [Catalytic activity/Vol] 16 U/L 13 - 35 U/L [facility] Bilirubin [Mass/Vol] 0.2 mg/dL 0.2 - 1 .3 mg/dL [facility] Calcium [Mass/Vol] 9.5 mg/dL 8.5 - 10. 2 mg/dL [facility] Chloride [Moles/Vol] 95 mmol/L Low 97 - 10 5 mmol/L [facility] CO2 [Moles/Vol] 27 mmol/L 22 - 30 mmol/L [facility] Creatinine [Mass/Vol] 0.87 mg/dL 0.58 - 0.96 mg/dL [facility] Estimated Glomerular Filtration Rate 86 mL/min/1.73m >=60 mL/min/1.73m [facility] Glucose [Mass/Vol] 494 mg/dL High 74 - 99 mg/dL [facility] Potassium [Moles/Vol] 4.9 mmol/L 3.7 - 5.1 mmol/L [facility] Protein [Mass/Vol] 8.3 g/dL High 6.3 - 8.0 g/dL [facility] Sodium [Moles/Vol] 132 mmol/L Low 136 - 144 mmol/L [facility] Urea nitrogen [Mass/Vol] 12 mg/dL 7 - 21 mg/dL [facility] HbA1c (Bld)on 04-27-2022 Average glucose Estimated from glycated hemoglobin (Bld) [Mass/Vol] 240 mg/dL [facility] HbA1c (Bld) [Mass fraction] 10.0 % High 4.3 - 5.6 % [facility] No Panel InformationOrdered By: Cc Provider on 04-27-2022 Radiology Result ACTIONABLE Abnormal [facility] Comment on above: This report contains an incidental or actionable finding. This finding may be a new finding separate from the reason your provider ordered the imaging test or it may be an already known finding that needs additional or continued follow-up. Because of this incidental or actionable finding, you may need another test (imaging or a different type of test). Please contact your provider for the next steps. XR Chest PA and LateralOrder ed By: Cc Provider on 04-27-2022 Interpretation and review of laboratory results Abnormal [facility] XR Chest PA and Lateralon IMPRESSION: Significant bilateral multifocal pneumonia with consolidation. ACTIONABLE RESULT: FOLLOW-UP Acuity: Actionable Findings: Thoracic-Other Routing Code: CT_1 Recommendation: Unlisted Recommendation (see report) Time Frame: At the discretion of the clinical team. COMMUNICATION: Results will be communicated with the ordering provider via [email or web address] staff message or phone message by [facility] within 2 business days of report finalization. Algorithms for management of incidental imaging findings can be found on the [facility] Intranet Sharepoint site at: [email or web address] Managing%20Incidental%2 0Findi ngs%20at%20Imaging/Form s/[email or web address] Grassroots Organizer: PSCB Transcribe Date/Time: Apr 27 2022 4:15P Dictated by : TAMARA FAROOQ MD This examination was interpreted and the report reviewed and electronically signed by: TAMARA FAROOQ MD on Apr 27 2022 4:24PM [facility] DIVISION OF RADIOLOGY * * *Final Report* * * DATE OF EXAM: Apr 27 2022 9:33AM WOX 5291 - XR CHEST 2V FRONTAL/LAT / PROCEDURE REASON: Pneumonia of right lower lobe due to methicillin resistant Staphylococcus aureus * * * * Physician Interpretation * * * * EXAMINATION: CHEST RADIOGRAPH (2 VIEW FRONTAL & LATERAL) CLINICAL HISTORY: Pneumonia of right lower lobe due to methicillin resistant Staphylococcus aureus (MRSA) (HCC) MQ: XC2_6 EXAM DATE/TIME: 04/27/2022 9:33 AM COMPARISON: 04/30/2019 RESULT: Lines, tubes, and devices: None. Lungs and pleura: Significant consolidation bilaterally is most pronounced in the left lower lobe and more significantly in the right middle lobe and upper lobe. No pneumothorax Cardiomediastinal silhouette: Normal cardiomediastinal silhouette. Bones and soft tissues: Unremarkable. DIVISION OF RADIOLOGY Provider, [facility] - 04/27/2022 * * *Final Report* * * DATE OF EXAM: Apr 27 2022 9:33AM WOX 5291 - XR CHEST 2V FRONTAL/LAT / PROCEDURE REASON: Pneumonia of right lower lobe due to methicillin resistant Staphylococcus aureus * * * * Physician Interpretation * * * * EXAMINATION: CHEST RADIOGRAPH (2 VIEW FRONTAL & LATERAL) CLINICAL HISTORY: Pneumonia of right lower lobe due to methicillin resistant Staphylococcus aureus (MRSA) (HCC) MQ: XC2_6 EXAM DATE/TIME: 04/27/2022 9:33 AM COMPARISON: 04/30/2019 RESULT: Lines, tubes, and devices: None. Lungs and pleura: Significant consolidation bilaterally is most pronounced in the left lower lobe and more significantly in the right middle lobe and upper lobe. No pneumothorax Cardiomediastinal silhouette: Normal cardiomediastinal silhouette. Bones and soft tissues: Unremarkable. IMPRESSION IMPRESSION: Significant bilateral multifocal pneumonia with consolidation. ACTIONABLE RESULT: FOLLOW-UP Acuity: Actionable Findings: Thoracic-Other Routing Code: CT_1 Recommendation: Unlisted Recommendation (see report) Time Frame: At the discretion of the clinical team. COMMUNICATION: Results will be communicated with the ordering provider via flck.me staff message or phone message by [facility] within 2 business days of report finalization. Algorithms for management of incidental imaging findings can be found on the [facility] Intranet Sharepoint site at: [email or web address] Managing%20Incidental%2 0Findi ngs%20at%20Imaging/Form s/AllItems.aspx Grassroots Organizer: KATHRINE Transcribe Date/Time: Apr 27 2022 4:15P Dictated by : TAMARA FRAOOQ MD This examination was interpreted and the report reviewed and electronically signed by: TAMARA FAROOQ MD on Apr 27 2022 4:24PM EST [facility] Radiology Study observation (narrative) [facility] Absolute lymphocyte countOrd ered By: Dr. Elmore on 04-12-2022 Lymphocytes Auto (Unsp spec) [#/Vol] 1.20 10*3/uL 0.83-4.51 [facility] Basophil percentageOrdered B y: Dr. Elmore on 04-12-2022 Basophils/100 WBC (Bld) 0.2 % 0-1 [facility] Chloride [Moles/Vol] 109 mmol/L 98-107 [facility] Eosinophils/100 WBC (Bld) 0.7 % 0-5 [facility] Glucose [Mass/Vol] 184 mg/dL 74-106 [facility] Comment on above: Fasting Glucose resu lt greater than or equal to 126 mg/dL suggests DIABETES MELLITUS per A.D.A. criteria. Neutrophils (Bld) [#/Vol] 10.3 10*3/uL 2.0-7.7 [facility] Neutrophils/100 WBC (Bld) 81.8 % 47-70 [facility] Potassium [Moles/Vol] 3.3 mmol/L 3.5-5.1 [facility] Sodium [Moles/Vol] 140 mmol/L 136-145 [facility] WBC (Bld) [#/Vol] 12.6 10*3/uL 4.4-11.0 [facility] Blood erythrocytes count (nu mber/volume)Ordered By: Dr. Elmore on 04-12-2022 RBC (Bld) [#/Vol] 3.62 10*6/uL 4.2-5.4 [facility] Blood hemoglobin measurement (mass/volume)Ordered By: Dr. Elmore on 04-12-2022 Hemoglobin (Bld) [Mass/Vol] 10.9 g/dL 12.0-15.0 [facility] Blood lymphocytes/100 leukoc ytesOrdered By: Dr. Elmore on 04-12-2022 Lymphocytes/100 WBC (Bld) 9.5 % 19-41 [facility] Blood monocytes/100 leukocyt esOrdered By: Dr. Elmore on 04-12-2022 Monocytes/100 WBC (Bld) 6.4 % 0-10 [facility] Blood platelet mean volumeOr dered By: Dr. Elmore on 04-12-2022 Platelet mean volume (Bld) [Entitic vol] 9.0 fL 6.2-12.0 [facility] Determination of erythrocyte mean corpuscular volume (MCV)Ordered By: Dr. Elmore on 04-12-2022 MCV (RBC) [Entitic vol] 89.2 fL 81-99 [facility] Glucose Glucometer (BldC) [M ass/Vol]Ordered By: Dr. Dunham on 04-12-2022 Glucose [Mass/Vol] 170 mg/dL 74-106 [facility] Comment on above: MANAGEMENT OF PATIEN T CARE PER NURSING PROTOCOL Hematocrit Auto (Bld) [Volum e fraction]Ordered By: Dr. Elmore on 04-12-2022 Hematocrit (Bld) [Volume fraction] 32.3 % 37-47 [facility] Laboratory - Chemistry and C hemistry - challengeOrdered By: Dr. Elmore on 04-12-2022 CO2 [Moles/Vol] 27.0 mmol/L 21.0-32.0 [facility] Urea nitrogen/Creatinine [Mass ratio] 12.4 mg/mg 10-20 [facility] Laboratory - Hematology and Cell countsOrdered By: Dr. Elmore on 04-12-2022 Erythrocyte distribution width (RBC) [Entitic vol] 44.8 fL 35.1-43.9 [facility] Erythrocyte distribution width (RBC) [Ratio] 13.7 % 11.6-14.6 [facility] Immature granulocytes/100 WBC (Bld) 1.400 % 0.0-0.9 [facility] Comment on above: IG% - Immature Granu locytes (promyelocytes, myelocytes and metamyelocytes) > 1% indicates that a LEFT SHIFT is Present. MCH (RBC) [Entitic mass] 30.1 pg 27.0-32.0 [facility] Nucleated RBC/100 WBC (Bld) [Ratio] 0 % 0-5 [facility] Laboratory - Microbiology an d Antimicrobial susceptibilityOrdered By: Dr. Benitez on 04-12-2022 Bacteria identified Cx Nom (Bld) No growth in 5 days. [facility] Bacteria identified Cx Nom (Bld) Presumptive [facility]cus spp. [facility] Auto (RBC) [Mass/Vol]Or dered By: Dr. Elmore on 04-12-2022 MCHC (RBC) [Mass/Vol] 33.7 g/dL 32-36 [facility] No Panel InformationOrdered By: Dr. Elmore on 04-12-2022 Estimated Creatinine Clearance Calc 118.96 ml/min [facility] Estimated GFR (MDRD) Amer 152 mL/min >60 [facility] Comment on above: GFR Calc Estimated GFR (MDRD) Non-Af Amer 126 mL/min >60 [facility] Comment on above: Non- GFR Calc Platelets bldOrdered By: Dr. Elmore on 04-12-2022 Platelets (Bld) [#/Vol] 392 10*3/uL 150-450 [facility] Serum or plasma calcium gladys urement (mass/volume)Ordered By: Dr. Elmore on 04-12-2022 Calcium [Mass/Vol] 7.6 mg/dL 8.5-10.1 [facility] Serum or plasma creatinine m easurement (mass/volume)Ordered By: Dr. Elmore on 04-12-2022 Creatinine [Mass/Vol] 0.56 mg/dL 0.55-1.02 [facility] Comment on above: The validity of the calculated GFR & GFRAA in patients over 70 years has not been determined. Clinical correlation is essential. Serum or plasma urea nitroge n measurement (mass/volume)Ordered By: Dr. Elmore on 04-12-2022 Urea nitrogen [Mass/Vol] 7 mg/dL 7-18 [facility] Thin prep Papanicolaou smear with manual screeningOrdered By: Dr. Elmore on 04-12-2022 Thin prep Papanicolaou smear with manual screening 4 5-15 [facility] Vancomycin troughOrdered By: Dr. Elmore on 04-12-2022 Vancomycin trough [Mass/Vol] 21.1 ug/mL 5.0-15.0 [facility] Comment on above: VANCOMYCIN STANDARED DRUG THERAPY TROUGH LEVEL: 5.0 - 15.0 mg/L VANCOMYCIN HIGH INTENSITY THERAPY TROUGH LEVEL: 15.0 - 20.0 mg/L High Intensity therapy recommended for serious lifethreatening infections include:- Boztiswmoz-[id number]-[id number] (Ventilator/Healtcare Associated)-Sepsis PLEASE CONTACT PHARMACY SERVICES (#6301) FOR INTERPRETATIONOF RESULTS. Bacteria identified Respirat ory culture Nom (Unsp spec)Ordered By: Dr. Elmore on 04-11-2022 Respiratory Culture Staphylococcus aureus [facility] Respiratory Culture Alpha Hemolytic Streptococcus [facility] No Panel InformationOrdered By: Dr. Benitez on 04-11-2022 Bacteria Detection (PCR) [facility] Assessment of wrist artery p atency prior to arterial punctureOrdered By: Dr. Elmore on 04-10-2022 Arterial patency Wrist artery --pre arterial puncture Positive [facility] Base excessOrdered By: Dr. Huma meraz on 04-10-2022 Base excess Calc (BldV) [Moles/Vol] -5 mmol/L -2-2 [facility] Basophil percentageOrdered B y: Dr. Elmore on 04-10-2022 Basophil percentage 19.7 mmol/L 22-26 [facility] Basophils/100 WBC (Bld) 95 % 95-99 [facility] CO2 (BldA) [Partial pressure ]Ordered By: Dr. Elmore on 04-10-2022 CO2 (Bld) [Partial pressure] 29.2 mm[Hg] 35-45 [facility] Culture, urineOrdered By: Dr Peter Benitez on 04-10-2022 Bacteria identified Cx Nom (U) Culture exhibits no growth. [facility] No Panel InformationOrdered By: Dr. Elmore on 04-10-2022 Blood Gas Liter Flow 3.0 /min [facility] Blood Gas Sample Site L Radial [facility] Blood Gas Specimen Type ART [facility] Blood Gas Total CO2 21 mmol/L [facility] Oxygen Delivery Device Cannula [facility] Oxygen (BldA) [Partial press ure]Ordered By: Dr. Elmore on 04-10-2022 Oxygen (Bld) [Partial pressure] 69 mmHG 75-100 [facility] pH measurementOrdered By: Dr Peter Elmore on 04-10-2022 pH (Unsp spec) 7.44 [pH] 7.35-7.45 [facility] Gram stain for investigation of transfusion reactionOrdered By: Dr. Elmore on 04-09-2022 Microscopic observation Gram stain Nom (Unsp spec) [facility] No Panel InformationOrdered By: Dr. Saul on 04-08-2022 Methicillin-Resist S.aureus DNA PCR Positive Negative [facility] Streptococcus pneumoniae Antigen (M [facility] Urine Legionella pneumophila antigen detectionOrdered By: Dr. Saul on 04-08-2022 L. pneumophila Ag Ql (U) [facility] Absolute lymphocyte counton 04-07-2022 Lymphocytes Auto (Unsp spec) [#/Vol] 0.96 10*3/uL 0.83-4.51 [facility] Work Phone: Basophil percentageon 2021 Basophils/100 WBC (Bld) 0.3 % 0-1 [facility] Work Phone: Chloride [Moles/Vol] 100 mmol/L 98-107 [facility] Work Phone: Eosinophils/100 WBC (Bld) 0.1 % 0-5 [facility] Work Phone: Glucose [Mass/Vol] 293 mg/dL 74-106 [facility] Work Phone: Comment on above: Glucose result great er than or equal to 200 mg/dLsuggests DIABETES MELLITUS per A.D.A. criteria. Neutrophils (Bld) [#/Vol] 14.7 10*3/uL 2.0-7.7 [facility] Work Phone: Neutrophils/100 WBC (Bld) 83.7 % 47-70 [facility] Work Phone: Potassium [Moles/Vol] 3.5 mmol/L 3.5-5.1 [facility] Work Phone: Sodium [Moles/Vol] 134 mmol/L 136-145 [facility] Work Phone: WBC (Bld) [#/Vol] 17.6 10*3/uL 4.4-11.0 [facility] Work Phone: Basophil percentageOrdered B y: Dr. Benitez on 04-07-2022 Bilirubin [Mass/Vol] 0.80 mg/dL 0.20-1.00 [facility] Comment on above: For patients on eltr ombopag therapy, use of Dimension Foley TBIL is not recommended. Lactate [Moles/Vol] 1.8 mmol/L 0.4-2.0 [facility] Protein [Mass/Vol] 7.7 g/dL 6.4-8.2 [facility] Blood erythrocytes count (nu mber/volume)on 04-07-2022 RBC (Bld) [#/Vol] 4.35 10*6/uL 4.2-5.4 [facility] Work Phone: Blood hemoglobin measurement (mass/volume)on 04-07-2022 Hemoglobin (Bld) [Mass/Vol] 13.2 g/dL 12.0-15.0 [facility] Work Phone: Blood lymphocytes/100 leukoc yteson 04-07-2022 Lymphocytes/100 WBC (Bld) 5.5 % 19-41 [facility] Work Phone: [phone] Blood monocytes/100 leukocyt eson 04-07-2022 Monocytes/100 WBC (Bld) 7.7 % 0-10 [facility] Work Phone: Blood platelet mean volumeon 04-07-2022 Platelet mean volume (Bld) [Entitic vol] 9.5 fL 6.2-12.0 [facility] Work Phone: Determination of erythrocyte mean corpuscular volume (MCV)on 04-07-2022 MCV (RBC) [Entitic vol] 89.2 fL 81-99 [facility] Work Phone: Hematocrit Auto (Bld) [Volum e fraction]on 04-07-2022 Hematocrit (Bld) [Volume fraction] 38.8 % 37-47 [facility] Work Phone: INR in Blood by Coagulation assayOrdered By: Dr. Benitez on 04-07-2022 INR Coag (Bld) [Relative time] 1.2 {INR} [facility] Laboratory - Chemistry and C hemistry - challengeOrdered By: Dr. Benitez on 04-07-2022 ALP [Catalytic activity/Vol] 144 U/L 45-117 [facility] ALT [Catalytic activity/Vol] 22 U/L 13-56 [facility] Globulin (S) [Mass/Vol] 5.8 g/dL 2.2-4.2 [facility] Laboratory - Chemistry and C hemistry - challengeon 04-07-2022 CO2 [Moles/Vol] 24.0 mmol/L 21.0-32.0 [facility] Work Phone: Urea nitrogen/Creatinine [Mass ratio] 22.5 mg/mg 10-20 [facility] Work Phone: Laboratory - CoagulationOrde red By: Dr. Benitez on 04-07-2022 aPTT Coag (Bld) [Time] 30.2 s 24.1-36.2 [facility] PT Coag (PPP) [Time] 15.1 s 11.7-14.9 [facility] Laboratory - Hematology and Cell countson 04-07-2022 Erythrocyte distribution width (RBC) [Entitic vol] 42.2 fL 35.1-43.9 [facility] Work Phone: Erythrocyte distribution width (RBC) [Ratio] 12.9 % 11.6-14.6 [facility] Work Phone: Immature granulocytes/100 WBC (Bld) 2.700 % 0.0-0.9 [facility] Work Phone: Comment on above: IG% - Immature Granu locytes (promyelocytes, myelocytes and metamyelocytes) > 1% indicates that a LEFT SHIFT is Present. MCH (RBC) [Entitic mass] 30.3 pg 27.0-32.0 [facility] Work Phone: Nucleated RBC/100 WBC (Bld) [Ratio] 0 % 0-5 [facility] Work Phone: MCHC Auto (RBC) [Mass/Vol]on 04-07-2022 MCHC (RBC) [Mass/Vol] 34.0 g/dL 32-36 [facility] Work Phone: No Panel Informationon 04-07 Estimated Creatinine Clearance Calc 111.79 ml/min [facility] Work Phone: Estimated GFR (MDRD) Amer 135 mL/min >60 [facility] Work Phone: Comment on above: GFR Calc Estimated GFR (MDRD) Non-Af Amer 112 mL/min >60 [facility] Work Phone: Comment on above: Non- GFR Calc Platelets bldon 04-07-2022 Platelets (Bld) [#/Vol] 326 10*3/uL 150-450 [facility] Work Phone: Serum or plasma albumin gladys urement (mass/volume)Ordered By: Dr. Benitez on 04-07-2022 Albumin [Mass/Vol] 1.9 g/dL 3.2-5.0 [facility] Serum or plasma albumin/glob ulin mass ratioOrdered By: Dr. Benitez on 04-07-2022 Albumin/Globulin [Mass ratio] 0.3 {ratio} 0.9-2.4 [facility] Serum or plasma calcium gladys urement (mass/volume)on 04-07-2022 Calcium [Mass/Vol] 8.7 mg/dL 8.5-10.1 [facility] Work Phone: Serum or plasma creatinine m easurement (mass/volume)on 04-07-2022 Creatinine [Mass/Vol] 0.62 mg/dL 0.55-1.02 [facility] Work Phone: Comment on above: The validity of the calculated GFR & GFRAA in patients over 70 years has not been determined. Clinical correlation is essential. Serum or plasma urea nitroge n measurement (mass/volume)on 04-07-2022 Urea nitrogen [Mass/Vol] 14 mg/dL 7-18 [facility] Work Phone: Thin prep Papanicolaou smear with manual screeningOrdered By: Dr. Benitez on 04-07-2022 Thin prep Papanicolaou smear with manual screening 20 U/L 15-37 [facility] Thin prep Papanicolaou smear with manual screeningon 04-07-2022 Thin prep Papanicolaou smear with manual screening 10 5-15 [facility] Work Phone: Influenza virus A and B and SARS-CoV-2 (COVID-19) Ag panel - Upper respiratory specimOrdered By: Mehran Burgos on 04-02-2022 SARS-CoV-2 & FLU Antigen (Rapid) Influenzae A [facility] Absolute lymphocyte counton 06-16-2021 Lymphocytes Auto (Unsp spec) [#/Vol] 2.62 10*3/uL 0.83-4.51 [facility] Work Phone: Basophil percentageon 2021 Basophils/100 WBC (Bld) 0.6 % 0-1 [facility] Work Phone: Chloride [Moles/Vol] 103 mmol/L 98-107 [facility] Work Phone: Eosinophils/100 WBC (Bld) 1.5 % 0-5 [facility] Work Phone: Glucose [Mass/Vol] 425 mg/dL 74-106 [facility] Work Phone: Comment on above: Glucose result great er than or equal to 200 mg/dLsuggests DIABETES MELLITUS per A.D.A. criteria. Neutrophils (Bld) [#/Vol] 3.9 10*3/uL 2.0-7.7 [facility] Work Phone: Neutrophils/100 WBC (Bld) 55.3 % 47-70 [facility] Work Phone: Potassium [Moles/Vol] 3.7 mmol/L 3.5-5.1 [facility] Work Phone: Sodium [Moles/Vol] 134 mmol/L 136-145 [facility] Work Phone: WBC (Bld) [#/Vol] 7.1 10*3/uL 4.4-11.0 [facility] Work Phone: Blood erythrocytes count (nu mber/volume)on 06-16-2021 RBC (Bld) [#/Vol] 5.06 10*6/uL 4.2-5[facility]4 [facility] Blood hemoglobin measurement (mass/volume)on 06-16-2021 Hemoglobin (Bld) [Mass/Vol] 16.0 g/dL 12.0-15.0 [facility] Work Phone: Blood lymphocytes/100 leukoc yteson 06-16-2021 Lymphocytes/100 WBC (Bld) 36.8 % 19-41 [facility] Work Phone: Blood monocytes/100 leukocyt eson 06-16-2021 Monocytes/100 WBC (Bld) 5.5 % 0-10 [facility] Work Phone: Blood platelet mean volumeon 06-16-2021 Platelet mean volume (Bld) [Entitic vol] 10.1 fL 6.2-12.0 [facility] Work Phone: Determination of erythrocyte mean corpuscular volume (MCV)on 06-16-2021 MCV (RBC) [Entitic vol] 88.9 fL 81-99 [facility] Work Phone: Hematocrit Auto (Bld) [Volum e fraction]on 06-16-2021 Hematocrit (Bld) [Volume fraction] 45.0 % 37-47 [facility] Work Phone: Laboratory - Chemistry and C hemistry - challengeon 06-16-2021 CO2 [Moles/Vol] 28.0 mmol/L 21.0-32.0 [facility] Work Phone: Magnesium [Mass/Vol] 2.2 mg/dL 1.6-2.6 [facility] Work Phone: Urea nitrogen/Creatinine [Mass ratio] 15.0 mg/mg 10-20 [facility] Work Phone: Laboratory - Hematology and Cell countson 06-16-2021 Erythrocyte distribution width (RBC) [Entitic vol] 41.9 fL 35.1-43.9 [facility] Work Phone: Erythrocyte distribution width (RBC) [Ratio] 12.9 % 11.6-14.6 [facility] Work Phone: Immature granulocytes/100 WBC (Bld) 0.300 % 0.0-0.9 [facility] Work Phone: Comment on above: IG% - Immature Granu locytes (promyelocytes, myelocytes and metamyelocytes) > 1% indicates that a LEFT SHIFT is Present. MCH (RBC) [Entitic mass] 31.6 pg 27.0-32.0 [facility] Work Phone: Nucleated RBC/100 WBC (Bld) [Ratio] 0 % 0-5 [facility] Work Phone: MCHC Auto (RBC) [Mass/Vol]on 06-16-2021 MCHC (RBC) [Mass/Vol] 35.6 g/dL 32-36 [facility] Work Phone: No Panel Informationon 06-16 Troponin I High Sensitivity 4 pg/mL 3.0-54.0 [facility] Work Phone: Comment on above: Please Note: New Annie t Units and Gender Specific Reference Ranges. For more information see Policy Stat Procedure Foley High Sensitivity Troponin (TNIH) and attachments. Estimated Creatinine Clearance Calc 71.93 ml/min [facility] Work Phone: Estimated GFR (MDRD) Amer 93 mL/min >60 [facility] Work Phone: Comment on above: GFR Calc Estimated GFR (MDRD) Non-Af Amer 77 mL/min >60 [facility] Work Phone: Comment on above: Non- GFR Calc Platelets bldon 06-16-2021 Platelets (Bld) [#/Vol] 261 10*3/uL 150-450 [facility] Work Phone: Serum or plasma calcium gladys urement (mass/volume)on 06-16-2021 Calcium [Mass/Vol] 9.1 mg/dL 8.5-10.1 [facility] Work Phone: Serum or plasma creatinine m easurement (mass/volume)on 06-16-2021 Creatinine [Mass/Vol] 0.86 mg/dL 0.55-1.02 [facility] Work Phone: Comment on above: The validity of the calculated GFR & GFRAA in patients over 70 years has not been determined. Clinical correlation is essential. Serum or plasma urea nitroge n measurement (mass/volume)on 06-16-2021 Urea nitrogen [Mass/Vol] 13 mg/dL 7-18 [facility] Work Phone: Thin prep Papanicolaou smear with manual screeningon 06-16-2021 Thin prep Papanicolaou smear with manual screening 3 5-15 [facility] Work Phone: CASE MANAGEMon 05-01-2019 CASE MANAGEM HNO ID: [id number] Author: Anabel Ch (Sw) Service: Care Management Author Type: Lapel Padder Blindstitch Type: Care Mgt Progress Note Filed: 05/01/2019 5:25 PM Note Text: CARE MANAGEMENT DISCHARGE NOTE SERVICE DATE: 05/01/2019 SERVICE TIME: 4:00 PM LOS: 0 days Admission Date: 05/01/2019 DISCHARGE ARRANGEMENT (list agency and phone number) Home Provider: N/A Phone: N/A CAREGIVER ASSESSMENT: Caregiver is ready, willing and able to meet the patient's needs as recommended by the inter-professional team? No Caregiver Needed Patient's transition needs and plan for meeting these needs: no skilled needs identified Does the patient have an acute stroke diagnosis, or has the patient had a stroke during this admission? No HANDOFF COMMUNICATION: summary of care to be sent TRANSPORTATION ARRANGEMENTS: Car spouse ADDITIONAL CONTACT RESOURCES: N/A Needs Prior to Discharge: To Be Determined Pt wishes to leave hospital AMA, states she has spoken at length with physician and plans to follow up with PCP and outpatient stress test. 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 SIGNATURE: SIMONE Manning PATIENT NAME: Ginger Hinson DATE: May 01, 2019 TIME: 5:23 PM PAGER/CONTACT #: [phone] [facility] CASE MGT INIT Prasad [facility]: [id number] Author: Anabel Scott (Vaishnavi) Dima Service: Care Management Author Type: Lapel Padder Blindstitch Type: Care Mgt Initial Assessment Filed: 05/01/2019 3:52 PM Note Text: CARE MANAGEMENT: ASSESSMENT AND DISCHARGE PLAN SERVICE DATE: 05/01/2019 SERVICE TIME: 3:30 PM PRIMARY CARE PHYSICIAN: Sonia Ortega PA-C - confirmed. Pt states she will schedule follow up ADMISSION STATUS: Observation Needs Prior to Discharge: To Be Determined MEDICAL: Patient/[employer]re [employer] Drier Stated Goals: To have reduction in symptoms To improve my functional status To return home to life as it was Health Insurance: [facility] MEDICAID confirmed Health Issues Impacting Discharge Plan: chest pain Last Discharge Date: 04/30/19 (ED) Is this Within the Past 30 days? No Advance Directive: Current Advance Directive: None Camp Dishwasher Attempted to Assist with AD Completion: Yes Action: Education Provided Health Literacy: 1. How often do you need to have someone help you when you read instructions, pamphlets, or other written material from your doctor or pharmacy? Never - 1 2. How confident are you filling out medical forms by yourself? Extremely - 1 If Patient scores > 3 on either question, the following interventions were put into place: Patient did not score > 3 FUNCTIONAL AND COGNITIVE/BEHAVIORAL PRIOR TO ADMISSION: Baseline Mental Status: Alert AND Oriented, Person, Place , Time and Situation Functional Status: Independent Does Patient Currently Receive Any Community Services or Home Care? None Equipment Prior to Admission: None Has the Patient Been in a Retirement Facility in the Past 30 days? No SOCIAL: Living Arrangement: Home Lives With: Spouse and teenage children Financial Resources: Unemployed Primary Contact: Extended Emergency Contact Information Primary Emergency Contact: Guille Hernandez Mobile Relation: Father Supportive: Yes Other Important Patient Contacts: None Caregiver Assessment: Caregiver is ready, willing and able to meet the patient's needs as recommended by the inter-professional team? No Caregiver Needed Patient's transition needs and plan for meeting these needs: N/A - anticipate discharge with basic needs, no skilled services or other referrals indicated at this time Does the patient have an acute stroke diagnosis, or has the patient had a stroke during this admission? No Medication Adherence: I am convinced of the importance of my prescription medication: Agree completely - 0 I worry that my prescription medication will do more harm than good to me Disagree completely - 0 I feel financially burdened by my [id number] expenses for my prescription medication: Disagree completely - 0 Patient is categorized as low risk < 2 Are you interested in bedside delivery of your medications? No Pt states preferred community pharmacy is [facility] Is the Patient Psychosocially Complex? No ASSESSMENT AND PLAN: Medical Needs: 2 or more chronic diseases, Diabetes - Type 2 and Obesity Psychosocial Needs: None FREEDOM OF CHOICE EXPLAINED: No - No placements necessary POTENTIAL TRANSITION PLANS Home Met with pt bedside, introduced self and role of case management. Pt states she plans to return home with her family at discharge, states no skilled services/DME in place and denies need for services/referrals at discharge. Pt states her spouse will transport her at discharge. Pt states she is independent with ADL's and IADL's. Anticipate basic discharge. Case management to remain available if discharge planning needs arise. SIGNATURE: SIMONE Manning PATIENT NAME: Ginger Hinson DATE: May 01, 2019 TIME: 3:48 PM PAGER/CONTACT #: [phone] Normal [facility] CBCon 05-01-2019 Erythrocyte distribution width (RBC) [Ratio] 12.6 % Normal 11.5-15.0 [facility] Comment on above: Performed By: #### C BC, CMP, LIPB #### [facility] [address] [place] [address] Hematocrit (Bld) [Volume fraction] 42.3 % Normal 36.0-46.0 [facility] Comment on above: Performed By: #### C BC, CMP, LIPB #### [facility] [address] [place] [address] Hemoglobin (Bld) [Mass/Vol] 14.6 g/dL Normal 11.5-15.5 [facility] Comment on above: Performed By: #### C BC, CMP, LIPB #### [facility] [address] [place] [address] MCH (RBC) [Entitic mass] 30.6 pG Normal 26.0-34.0 [facility] Comment on above: Performed By: #### C BC, CMP, LIPB #### [facility] [address] [facility] [phone] MCHC (RBC) [Mass/Vol] 34.5 g/dL Normal 30.5-36.0 [facility] Comment on above: Performed By: #### C BC, CMP, LIPB #### [facility] [address] [facility] [phone] MCV (RBC) [Entitic vol] 88.7 fL Normal 80.0-100.0 [facility] Comment on above: Performed By: #### C BC, CMP, LIPB #### [facility] [address] [facility] [phone] Platelet mean volume (Bld) [Entitic vol] 10.1 fL Normal 9.0-12.7 [facility] Comment on above: Performed By: #### C BC, CMP, LIPB #### [facility] [address] [phone] Platelets (Bld) [#/Vol] 216 10*3/uL Normal 150-400 [facility] Comment on above: Performed By: #### C BC, CMP, LIPB #### [facility] [address] [phone] RBC (Bld) [#/Vol] 4.77 10*6/uL Normal 3.90-5.20 [facility] Comment on above: Performed By: #### C BC, CMP, LIPB #### [facility] [address] [facility] [phone] WBC (Bld) [#/Vol] 6.91 10*3/uL Normal 3.70-11.00 [facility] Comment on above: Performed By: #### C BC, CMP, LIPB #### [facility] [address] [facility] [phone] Comp Metabolic Panelon 05-01 Albumin [Mass/Vol] 3.1 g/dL Low 3.9-4.9 [facility] Comment on above: Performed By: #### C BC, CMP, LIPB #### [facility] [address] [address] ALP [Catalytic activity/Vol] 107 U/L Normal 34-123 [facility] Comment on above: Performed By: #### C BC, CMP, LIPB #### [facility] [address] [address] ALT [Catalytic activity/Vol] 14 U/L Normal 7-38 [facility] Comment on above: Performed By: #### C BC, CMP, LIPB #### [facility] [address] [address] Anion gap [Moles/Vol] 15 mmol/L Normal 9-18 [facility] Comment on above: Performed By: #### C BC, CMP, LIPB #### [facility] [address] [address] AST [Catalytic activity/Vol] 16 U/L Normal 13-35 [facility] Comment on above: Performed By: #### C BC, CMP, LIPB #### [facility] [address] [address] Bilirubin [Mass/Vol] 0.3 mg/dL Normal 0.2-1.3 [facility] Comment on above: Performed By: #### C BC, CMP, LIPB #### [facility] [address] [address] Calcium [Mass/Vol] 9.3 mg/dL Normal 8.5-10.2 [facility] Comment on above: Performed By: #### C BC, CMP, LIPB #### [facility] [address] [address] Chloride [Moles/Vol] 103 mmol/L Normal 97-105 [facility] Comment on above: Performed By: #### C BC, CMP, LIPB #### [facility] [address] [address] CO2 [Moles/Vol] 19 mmol/L Low 22-30 [facility] Comment on above: Performed By: #### C BC, CMP, LIPB #### [facility] [address] [address] Creatinine [Mass/Vol] 0.44 mg/dL Low 0.58-0.96 [facility] Comment on above: Performed By: #### C BC, CMP, LIPB #### [facility] [address] [facility] [phone] eGFR- Amer. >60 Normal [facility] Comment on above: Performed By: #### C BC, CMP, LIPB #### [facility] [address] [facility] [phone] GFR/1.73 sq M predicted among non-blacks MDRD (S/P/Bld) [Vol rate/Area] mL/min/{1.73_m2} Normal [facility] Comment on above: Result Comment: eGFR (Estimated GFR) Units of [...] accurately reflect actual GFR. Performed By: #### C CASEY, CMP, LIPB #### [facility] [address] [facility] [phone] Glucose [Mass/Vol] 240 mg/dL High 74-99 [facility] Comment on above: Result Comment: The [place] [employer] (ADA) provides guidance for cutoff values for fasting glucose and random glucose. The ADA defines fasting as no caloric intake for at least 8 hours. Fasting plasma glucose results between 100 to 125 [...] Standards of Medical Care in Diabetes 2016, [place] [employer]. Diabetes Care. 2016.39(Suppl 1). Performed By: #### C BC, CMP, LIPB #### [facility] [address] [phone] Potassium [Moles/Vol] 3.7 mmol/L Normal 3.7-5.1 [facility] Comment on above: Performed By: #### C BC, CMP, LIPB #### [facility] [address] [phone] Protein [Mass/Vol] 6.6 g/dL Normal 6.3-8.0 [facility] Comment on above: Performed By: #### C BC, CMP, LIPB #### [facility] [address] [facility] [phone] Sodium [Moles/Vol] 137 mmol/L Normal 136-144 [facility] Comment on above: Performed By: #### C BC, CMP, LIPB #### [facility] [address] [phone] Urea nitrogen [Mass/Vol] 10 mg/dL Normal 7-21 [facility] Comment on above: Performed By: #### C BC, CMP, LIPB #### [facility] [address] [facility] [phone] ECG COMPLETEon 05-01-2019 ECG COMPLETE NAME : MAILE HINSON SA PID : [id number] Gender : Female Race : ORD : [id number] Procedure Date : May 01 2019 01:04:50 Edit Date : May 01 2019 08:50:21 Diagnosis:NORMAL SINUS RHYTHM NORMAL ECG NO PREVIOUS ECGS AVAILABLE Confirmed by YVES EVERETT M.D. ([id number]) on 05/01/2019 8:50:17 AM Ventricular Rate : 91 BPM Atrial Rate : 91 BPM P-R Interval : 144 ms QRS Duration : 92 ms Q-T Interval : 366 ms QTC Calculation(Bazett) : 450 ms P [place] : 58 degrees R [place] : 65 degrees T [place] : 28 degrees Test Reason : Chest Pain Location : 3 : 2N 235 Overread By : YVES EVERETT M.D. Edited By : YVES EVERETT M.D. Referred By : TRACY LEYVA Acquired by : Alysia SZYMANSKI [facility] HISTORY PHYSICALon 0 HISTORY PHYSICAL HNO ID: [id number] Author: Mateus Sprague ([place]) Service: Hospital Medicine Author Type: Physician Buffet Attendant Type: HANDP Filed: 05/01/2019 1:01 AM Note Text: Attestation signed by Luis Fleming at 05/01/2019 1:32 AM Agree w/ below 38F presents w/ atypical chest pain, probably pleuritic Possible pneumonia - check w/ pharmacy re: abx safe in Monitor on telemetry Insulin and FS Check procal SERVICE DATE: 05/01/2019 SERVICE TIME: 1:01 AM HOSPITAL MEDICINE HISTORY AND PHYSICAL PCP: Sonia Ortega PA-C NIGHT AND WEEKEND COVERAGE: Nights: Please contact pager [phone]. SUBJECTIVE Chief Complaint: CP HPI: This is a 38 year old female with PMHx of DM, HTN who presents with CP. This past Tuesday, she had a five-minute episode of chest discomfort. On Tuesday she had 3 or 4 more episodes of chest discomfort. This evening after getting out of the shower, patient had another episode of chest discomfort that has not resolved. It is mid sternal, no radiation, described as pressure and sharp. Patient also has had mild cough, recent ear infections which she took a few days of Augmentin. Denies SOB, n/v, diaphoresis, denies new foods, denies increased activity. Patient has cardiology appointment tomorrow morning, states has 2 leaky valves otherwise no cardiac history. Patient states multiple family members with AMI prior to age of 50. In ED, EKG NSR with no ST changes. Troponin negative ?1. CXR: NAP. PAST MEDICAL HISTORY Diagnosis Date - Anxiety [...] Father - Cancer Maternal Grandmother stomach cancer. Social History Tobacco Use - Smoking status: Current Every Day Smoker Packs/day: 0.50 Years: 20.00 Pack years: 10.00 Types: Cigarettes - Smokeless tobacco: Never Used Substance Use Topics - Alcohol use: Yes Comment: occ - Drug use: No Medications: Reviewed Allergies: ALLERGIES Allergen Reactions - Cats Hives, Itching - Dust environmental - Grass Pollen Itching - Cardizem [Diltiazem] GI Upset, Vomiting - Percocet [Oxycodone* Vomiting - Zyrtec [Cetirizine * Hives Review of Systems: PAIN ASSESSMENT: Negative for pain, history of chronic pain, or current treatment for a chronic pain condition. GENERAL: No weight loss, malaise or fevers. HEENT: Negative for frequent or significant headaches, No changes in hearing or vision, no nose bleeds or other nasal problems NECK: Negative for lumps, goiter, pain and significant neck swelling RESPIRATORY: Negative for cough, hemoptysis, wheezing or shortness of breath CARDIOVASCULAR: +CP. Negative for leg swelling or palpitations. GI: No nausea, vomiting, or diarrhea : No history of dysuria, frequency or incontinence. MUSCULOSKELETAL: Negative for joint pain or swelling, back pain or muscle pain. SKIN: Negative for lesions, rash, and itching. PSYCH: Negative for sleep disturbance, mood disorder and recent psychosocial stressors. HEMATOLOGY/LYMPHOLOGY: Negative for prolonged bleeding, bruising easily or swollen nodes. ENDOCRINE: Negative for cold or heat intolerance, polyuria, polydipsia and goiter. NEURO: No history of headaches, syncope, paralysis, seizures or tremors OBJECTIVE: PHYSICAL EXAM Ht 5' 5 (1.65m) Physical Exam Performed: GENERAL: alert, no distress, cooperative SKIN: Skin color, texture, turgor normal. No rashes or lesions. NECK: no jugulovenous distention, supple BACK: Back symmetric, Normal curvature, ROM normal, No CVAT. LUNGS: Lungs clear to auscultation. Good diaphragmatic excursion. CARDIAC: CP not reproducible. RRR; no rubs, murmurs, or gallops ABDOMEN: Abdomen soft, non-tender. BS normal. No masses or organomegaly. EXTREMITIES: Extremities normal. No deformities, edema, clubbing or skin discoloration., No ulcers NEURO: Sensation grossly intact., Cranial nerves II-XII intact Lines, Drains, and Airways Line Peripheral 04/30/191999 Admission to Hospital Short Right Forearm 20 Gauge less than 1 day Diagnostic tests reviewed: Most recent labs and imaging results Assessment AND Plan Active Hospital Problems as of 05/01/2019 Noted - Resolved Hospital Type 2 diabetes mellitus with hyperglycemia, with long-term current use of insulin (HCC) 04/11/2014 - Present Current Assessment AND Plan Hold metformin, Lantus, add SSI, check HbA1c (previously 9.5 one year ago) Chest pain in adult 05/01/2019 - Present Current Assessment AND Plan Assessment: EKG and troponin reassuring. Pt does have risk factors. PLAN: Tele, trop, FLP, HbA1c. Medication and Non-Pharmacologic VTE Prophylaxis/Anticoagula nts 05/01/1929 vte non-pharmacologic prophylaxis - none indicated ([place]) 05/01/1929 activity - mobilize patient ([place]) VTE Prophylaxis: VTE prophylaxis appropriate SIGNATURE: Mateus Sprague PA-C PATIENT NAME: Ginger Hinson DATE: May 01, 2019 TIME: 1:01 AM PAGER/CONTACT #: [phone] Normal [facility] Lipid Panel, [place] 020 Cholesterol [Mass/Vol] 146 mg/dL Normal <[address] [facility] Comment on above: Performed By: #### C BC, CMP, LIPB #### [facility] [address] [address] [facility] [phone] Cholesterol in HDL [Mass/Vol] 23 mg/dL Low >39 [facility] Comment on above: Performed By: #### C BC, CMP, LIPB #### [facility] [address] [facility] [phone] Cholesterol in LDL [Mass/Vol] 86 mg/dL Normal <100 [facility] Comment on above: Performed By: #### C BC, CMP, LIPB #### [facility] [address] [address] Fasting Time Unknown Normal [facility] Comment on above: Performed By: #### C BC, CMP, LIPB #### [facility] [address] [address] LDL:HDL Ratio 3.74 High <2.54 [facility] Comment on above: Result Comment: Jason arita: 1. National Cholesterol Education Program ATP III Guideline At-A-Glance Quick Desk Reference: National Heart, Lung, and Blood [place]. National Institutes of Health. 2001: NIH Publication No. 01-3305. 2. An International Atherosclerosis Society position paper: global recommendations for the management of dyslipidemia: executive summary, Atherosclerosis. 2014: 232(2):410-413. Performed By: #### C BC, CMP, LIPB #### [facility] [address] [address] Non HDL Cholesterol 123 mg/dL Normal <130 [facility] Comment on above: Performed By: #### C BC, CMP, LIPB #### [facility] [address] [address] TC:HDL Ratio 6.35 High <5.10 [facility] Comment on above: Performed By: #### C BC, CMP, LIPB #### [facility] [address] [address] Triglyceride [Mass/Vol] 187 mg/dL High <150 [facility] Comment on above: Performed By: #### C BC, CMP, LIPB #### [facility] [address] [place] [address] VLDL Cholesterol 37 mg/dL High <30 [facility] Comment on above: Performed By: #### C BC, CMP, LIPB #### [facility] [address] [address] NURSING PROGon 05-01-2019 NURSING PROG HNO ID: [id number] Author: Murali (Rn) ABHI Ng Service: Nursing Author Type: Registered Nurse Type: Nursing Progress Note Filed: 05/01/2019 6:58 AM Note Text: Nursing Progress Note Patient Name: Ginger Hinson Patient [id number] Daily Note: 0030 Patient ambulated to bed with no issues. SR on tele. No complaints of chest pain nor headache at this time. Patient had snack due to not eating all day. Will continue to monitor. Family at bedside. 0035 PA at bedside. 0300 Patient resting in bed with family at bedside. No s/s of distress. SR on tele. 0500 Patient resting in bed with family at bedside. No s/s of distress. SR on tele. This note was completed by: Murali Ng RN [facility] PROGRESSon 05-01-2019 PROGRESS HNO ID: [id number] Author: Rox Berkowitz Service: Hospital Medicine Author Type: Physician Type: Progress Notes Filed: 05/01/2019 3:31 PM Note Text: SERVICE DATE: 05/01/2019 SERVICE TIME: 3:31 PM HOSPITAL MEDICINE PROGRESS NOTE NIGHT AND WEEKEND COVERAGE: Nights: Please contact pager [phone]. Hospital Medicine/Primary Attending: Rox Berkowitz MD Subjective HPI: This is a 38 year old female with PMHx of DM, HTN who presents with CP. This past Tuesday, she had a five-minute episode of chest discomfort. On Tuesday she had 3 or 4 more episodes of chest discomfort. This evening after getting out of the shower, patient had another episode of chest discomfort that has not resolved. It is mid sternal, no radiation, described as pressure and sharp. Patient also has had mild cough, recent ear infections which she took a few days of Augmentin. Denies SOB, n/v, diaphoresis, denies new foods, denies increased activity. Patient has cardiology appointment tomorrow morning, states has 2 leaky valves otherwise no cardiac history. Patient states multiple family members with AMI prior to age of 50. In ED, EKG NSR with no ST changes. Troponin negative ?1. CXR: NAP. Interval Events:Pt was seen and examined. Pt denies chest pain, SOB, nausea or sweating. Discussed with patient the need for stress test given her family history, DM and smoking but patient decided to leave and follow up as op. Objective BP 131/73 Pulse 81 Temp (Src) 97.3 (Temporal) Resp 18 Ht 5' 5 (1.65m) Wt 235 lb (106.6kg) SpO2 96% BMI 39.11 kg/(m2). O2 Therapy: Room Air Physical Exam Performed: GENERAL: : well appearing, alert and in no acute distress HEART: : regular rate and rhythm, no murmer, gallop or rub, normal, S1, S2, no lifts, heaves, or thrills, PMI not displaced LUNGS: : clear to percussion and auscultation and no rales ABDOMEN: : Soft, nontender, bowel sounds normal, no palpable organomegaly, no bruits. EXTREMITY: : Normal exam of the extremities. No clubbing, cyanosis, or edema. Lines, Drains, and Airways Line Peripheral 04/30/19 Assessment Short Right Forearm 20 Gauge 1 day Medications: Reviewed Diagnostic tests reviewed: Most recent imaging Most recent labs Assessment AND Plan Active Hospital Problems as of 05/01/2019 Noted - Resolved Unprioritized Type 2 diabetes mellitus with hyperglycemia, with long-term current use of insulin (HCC) 04/11/2014 - Present Current Assessment AND Plan Hold metformin, Lantus, add SSI, check HbA1c (previously 9.5 one year ago) Encourage weight loss, exercise and lifestyle modification Chest pain in adult 05/01/2019 - Present Current Assessment AND Plan Assessment: EKG and troponin reassuring. Pt does have risk factors. PLAN: Stress test. Pt wants to leave and to follow as outpatient Medication and Non-Pharmacologic VTE Prophylaxis/Anticoagula nts 05/01/19 0030 vte non-pharmacologic prophylaxis - none indicated ([place]) 05/01/19 0030 activity - mobilize patient ([place]) VTE Prophylaxis: VTE prophylaxis appropriate Plan of care discussed with: Provider, RN, Patient SIGNATURE: Rox Berkowitz MD PATIENT NAME: Ginger Hinson DATE: May 01, 2019 TIME: 3:31 PM PAGER/CONTACT #: [phone] Normal [facility] Procalcitoninon 05-01-2019 Procalcitonin <0.06 Normal <0.09 [facility] Comment on above: Result Comment: For a guided interpretation of test results, please visit the Change in Procalcitonin Calculator, [email or web address]. Performed By: #### P ROCAL ####[facility] [address] [place], [place] [phone] Troponin Ton 05-01-2019 Troponin T.cardiac [Mass/Vol] ug/L Normal 0.000-0.029 [facility] Comment on above: Performed By: #### T NT #### [facility] [address] [facility] [phone] NURSING PROGon 02-27-2019 NURSING PROG HNO ID: [id number] Author: Ines (Rn) ABHI Patten Service: Nursing Author Type: Registered Nurse Type: Nursing Progress Note Filed: 02/27/2019 7:55 AM Note Text: 0730 In preop fsbs checked [address] damon [address]45 Dr damon updated Procedure cancelled Pt instructed to follow up with family doctor and reschedule with dr damon Pt verbalizes understanding Normal [facility] HOSPon 02-09-2019 HOSP Patient:Michaela Hinson MRN: Height:5' 4(1.626 m) Weight:242 lb 9.6 oz (110.043 kg) Outpatient Medications as of 02/27/19: metFORMIN (GLUCOPHAGE) 500 mg tablet ibuprofen (MOTRIN) 600 mg tablet nystatin (NYSTOP) powder insulin glargine (BASAGLAR KWIKPEN U-100 INSULIN) 100 unit/mL (3 mL) inpn Lancets lancets blood sugar diagnostic (BLOOD GLUCOSE TEST) test strip Insulin [place], Disposable, (SURE-FINE PEN NEEDLES) 31 gauge x 3/16 ndle levonorgestrel (MIRENA) 20 mcg/24 hour (5 years) IUD Admission/Clinic Administered Medications as of 02/27/19: Patient has no admission medications. 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, M25.561, M25.362, M25.562] Osteoarthritis of right knee [M17.11] Pain in right knee [M25.561] Dyslipidemia [E78.5] Morbid obesity with BMI of 50.0-59.9, adult (HCC) [E66.01, Z68.43] Tobacco abuse [Z72.0] Primary osteoarthritis of right knee [M17.11] Chronic pain of right knee [M25.561, G89.29] Allergies: Cats Dust Grass Pollen Cardizem [Diltiazem] Percocet [Oxycodone-Acetaminophe n] Zyrtec [Cetirizine Hcl] Date Verified: 02/26/19 Lab Values No results within the last 30 days for the following basenames: K,HCT Progress Notes ([facility]): Jeanine Saleem LPN 02/14/2019 9:31 AM Signed Patient has been identified by name and date of : Yes Patient phones for refill(s): Pending Prescriptions Disp Refills METFORMIN 500 MG TABLET 120 tablet 5 Sig: Take 2 tablets by mouth twice daily with meals. JAZZ: No Date of last office visit in primary care: 01/05/19 Last 2 Encounter Wt Readings: Date: Wt: 02/09/2019 110 kg (242 lb 9.6 oz) 01/05/2019 109.8 kg (242 lb) Previous labs/tests for medication: Not applicable Please advise. Thank you. Jeanine Saleem LPN Progress Notes ([facility]): Lonnie Meza RN 02/09/2019 12:26 PM Signed Reviewed procedure instructions with patient verbally at this time. Procedure instructions sent with patient. Patient verbalizes understanding. No additional questions or concerns at this time. Patient contacted at this time. Reviewed procedure instructions. Reviewed risks associated with procedure. Patient verbalizes understanding. No additional questions or concerns at this time. Patient instructed consent will obtained day of procedure. Patient educated Dr. Damon will be available for any additional questions or concerns prior to procedure. Normal [facility] Bacteria identified Respirat ory culture Nom (Unsp spec) Respiratory Culture Staphylococcus aureus [facility] Work Phone: Respiratory Culture Alpha Hemolytic Streptococcus [facility] Work Phone: COVID-19 virus antigen assay SARS-CoV-2 (COVID-19) Ag IA.rapid Ql (Resp) [facility] Work Phone: Culture, urine Bacteria identified Cx Nom (U) Culture exhibits no growth. [facility] Work Phone: Gram stain for investigation of transfusion reaction Microscopic observation Gram stain Nom (Unsp spec) [facility] Work Phone: Influenza virus A and B and SARS-CoV-2 (COVID-19) Ag panel - Upper respiratory specim SARS-CoV-2 & FLU Antigen (Rapid) Influenzae A [facility] Work Phone: Laboratory - Microbiology an d Antimicrobial susceptibility Bacteria identified Cx Nom (Bld) No growth in 5 days. [facility] Work Phone: Bacteria identified Cx Nom (Bld) Presumptive Micrococcus spp. [facility] Work Phone: No Panel Information Bacteria Detection (PCR) [facility] Work Phone: Streptococcus pneumoniae Antigen (M [facility] Work Phone: Urine Legionella pneumophila antigen detection L. pneumophila Ag Ql (U) [facility] Work Phone: Vital Signs Date Time Vital Sign Value Performing Clinician Facility 11-05-2024 13:01-0400 Body mass index (BMI) [Ratio] 37.42 kg/m2 Lazara Melendez WEB CONTENT COORDINATOR.MAINTENANCE WELDER Work Phone: [facility] 11-05-2024 13:01-0400 Body temperature 97 [degF] Lazara Melendez WEB CONTENT COORDINATOR.MAINTENANCE WELDER Work Phone: [facility] 11-05-2024 13:01-0400 Body weight 98.88 kg Lazara Melendez WEB CONTENT COORDINATOR.MAINTENANCE WELDER Work Phone: [facility] 11-05-2024 13:01-0400 Diastolic blood pressure 82 mm[Hg] Lazara Melendez WEB CONTENT COORDINATOR.MAINTENANCE WELDER Work Phone: [facility] 11-05-2024 13:01-0400 Heart rate 88 /min Lazara Suppan WEB CONTENT COORDINATOR.MAINTENANCE WELDER Work Phone: [facility] 11-05-2024 13:01-0400 SaO2% (BldA) [Mass fraction] 96 % Lazara Suppan WEB CONTENT COORDINATOR.MAINTENANCE WELDER Work Phone: [facility] 11-05-2024 13:01-0400 Systolic blood pressure 132 mm[Hg] Lazara Suppan WEB CONTENT COORDINATOR.MAINTENANCE WELDER Work Phone: [facility] 08-09-2024 09:23-0400 Body mass index (BMI) [Ratio] 36.05 kg/m2 Lazara Suppan WEB CONTENT COORDINATOR.MAINTENANCE WELDER Work Phone: [facility] 08-09-2024 09:23-0400 Body temperature 97 [degF] Lazara Suppan WEB CONTENT COORDINATOR.MAINTENANCE WELDER Work Phone: [facility] 08-09-2024 09:23-0400 Body weight 95.25 kg Lazara Suppan WEB CONTENT COORDINATOR.MAINTENANCE WELDER Work Phone: [facility] 08-09-2024 09:23-0400 Diastolic blood pressure 76 mm[Hg] Lazara Suppan WEB CONTENT COORDINATOR.MAINTENANCE WELDER Work Phone: [facility] 08-09-2024 09:23-0400 Heart rate 91 /min Lazara Suppan WEB CONTENT COORDINATOR.MAINTENANCE WELDER Work Phone: [facility] 08-09-2024 09:23-0400 SaO2% (BldA) [Mass fraction] 96 % Lazara Suppan WEB CONTENT COORDINATOR.MAINTENANCE WELDER Work Phone: [facility] 08-09-2024 09:23-0400 Systolic blood pressure 124 mm[Hg] Lazara Suppan WEB CONTENT COORDINATOR.MAINTENANCE WELDER Work Phone: [facility] 07-11-2024 13:01-0400 Body mass index (BMI) [Ratio] 37.63 kg/m2 Adrienne Cioce WEB CONTENT COORDINATOR.MAINTENANCE WELDER Work Phone: [facility] 07-11-2024 13:01-0400 Body temperature 97.81 [degF] Adrienne Cioce WEB CONTENT COORDINATOR.MAINTENANCE WELDER Work Phone: [facility] 07-11-2024 13:01-0400 Body weight 99.43 kg Adrienne Cioce WEB CONTENT COORDINATOR.MAINTENANCE WELDER Work Phone: [facility] 07-11-2024 13:01-0400 Diastolic blood pressure 76 mm[Hg] Adrienne Cioce WEB CONTENT COORDINATOR.MAINTENANCE WELDER Work Phone: [facility] 07-11-2024 13:01-0400 Heart rate 78 /min Adrienne Cioce WEB CONTENT COORDINATOR.MAINTENANCE WELDER Work Phone: [facility] 07-11-2024 13:01-0400 SaO2% (BldA) [Mass fraction] 96 % Adrienne Cioce WEB CONTENT COORDINATOR.MAINTENANCE WELDER Work Phone: [facility] 07-11-2024 13:01-0400 Systolic blood pressure 120 mm[Hg] Adrienne Cioce WEB CONTENT COORDINATOR.MAINTENANCE WELDER Work Phone: [facility] 06-12-2024 13:04-0500 Body mass index (BMI) [Ratio] 37.76 kg/m2 Lazara Suppan WEB CONTENT COORDINATOR.MAINTENANCE WELDER Work Phone: [facility] 06-12-2024 13:04-0500 Body temperature 98.4 [degF] Lazara Suppan WEB CONTENT COORDINATOR.MAINTENANCE WELDER Work Phone: [facility] 06-12-2024 13:04-0500 Body weight 99.79 kg Lazara Suppan WEB CONTENT COORDINATOR.MAINTENANCE WELDER Work Phone: [facility] 06-12-2024 13:04-0500 Diastolic blood pressure 70 mm[Hg] Lazara Suppan WEB CONTENT COORDINATOR.MAINTENANCE WELDER Work Phone: [facility] 06-12-2024 13:04-0500 Heart rate 89 /min Lazara Suppan WEB CONTENT COORDINATOR.MAINTENANCE WELDER Work Phone: [facility] 06-12-2024 13:04-0500 SaO2% (BldA) [Mass fraction] 97 % Lazara Suppan WEB CONTENT COORDINATOR.MAINTENANCE WELDER Work Phone: [facility] 06-12-2024 13:04-0500 Systolic blood pressure 128 mm[Hg] Lazara Suppan WEB CONTENT COORDINATOR.MAINTENANCE WELDER Work Phone: [facility] 05-29-2024 14:37-0500 Body height 162.6 cm Lazara Suppan WEB CONTENT COORDINATOR.MAINTENANCE WELDER Work Phone: [facility] 05-29-2024 14:37-0500 Body mass index (BMI) [Ratio] 37.59 kg/m2 Lazara Suppan WEB CONTENT COORDINATOR.MAINTENANCE WELDER Work Phone: [facility] 05-29-2024 14:37-0500 Body weight 99.34 kg Lazara Suppan WEB CONTENT COORDINATOR.MAINTENANCE WELDER Work Phone: [facility] 05-29-2024 14:37-0500 Diastolic blood pressure 72 mm[Hg] Lazara Suppan WEB CONTENT COORDINATOR.MAINTENANCE WELDER Work Phone: [facility] 05-29-2024 14:37-0500 Heart rate 89 /min Lazara Suppan WEB CONTENT COORDINATOR.MAINTENANCE WELDER Work Phone: [facility] 05-29-2024 14:37-0500 SaO2% (BldA) [Mass fraction] 97 % Lazara Suppan WEB CONTENT COORDINATOR.MAINTENANCE WELDER Work Phone: [facility] 05-29-2024 14:37-0500 Systolic blood pressure 126 mm[Hg] Lazara Suppan WEB CONTENT COORDINATOR.MAINTENANCE WELDER Work Phone: [facility] 05-15-2024 13:33-0500 Body mass index (BMI) [Ratio] 37.76 kg/m2 Tracy Aguillon WEB CONTENT COORDINATOR.CNM Work Phone: [facility] 05-15-2024 13:33-0500 Body weight 99.79 kg Tracy Aguillon APRN.CNM Work Phone: [facility] 05-15-2024 13:33-0500 Diastolic blood pressure 86 mm[Hg] Tracy Aguillon WEB CONTENT COORDINATOR.CNM Work Phone: [facility] 05-15-2024 13:33-0500 Systolic blood pressure 118 mm[Hg] Tracymansoor Aguillon WEB CONTENT COORDINATOR.CNM Work Phone: [facility] 02-27-2024 13:55-0500 Body mass index (BMI) [Ratio] 35.87 kg/m2 Lazara Suppan WEB CONTENT COORDINATOR.MAINTENANCE WELDER Work Phone: [facility] 02-27-2024 13:55-0500 Body temperature 97 [degF] Lazara Suppan WEB CONTENT COORDINATOR.MAINTENANCE WELDER Work Phone: [facility] 02-27-2024 13:55-0500 Body weight 94.8 kg Lazara Suppan WEB CONTENT COORDINATOR.MAINTENANCE WELDER Work Phone: [facility] 02-27-2024 13:55-0500 Diastolic blood pressure 64 mm[Hg] Lazara Suppan WEB CONTENT COORDINATOR.MAINTENANCE WELDER Work Phone: [facility] 02-27-2024 13:55-0500 Heart rate 88 /min Lazara Suppan WEB CONTENT COORDINATOR.MAINTENANCE WELDER Work Phone: [facility] 02-27-2024 13:55-0500 SaO2% (BldA) [Mass fraction] 96 % Lazara Suppan WEB CONTENT COORDINATOR.MAINTENANCE WELDER Work Phone: [facility] 02-27-2024 13:55-0500 Systolic blood pressure 122 mm[Hg] Lazara Suppan WEB CONTENT COORDINATOR.MAINTENANCE WELDER Work Phone: [facility] 01-31-2024 08:56-0400 Body height 162.6 cm Daphne Gresham WEB CONTENT COORDINATOR.MAINTENANCE WELDER Work Phone: [facility] 01-31-2024 08:56-0400 Body mass index (BMI) [Ratio] 35.04 kg/m2 Daphne Gresham WEB CONTENT COORDINATOR.MAINTENANCE WELDER Work Phone: [facility] 01-31-2024 08:56-0400 Body weight 92.6 kg Daphne Gresham WEB CONTENT COORDINATOR.MAINTENANCE WELDER Work Phone: [facility] 01-31-2024 08:56-0400 Diastolic blood pressure 83 mm[Hg] Daphne Gresham WEB CONTENT COORDINATOR.MAINTENANCE WELDER Work Phone: [facility] 01-31-2024 08:56-0400 Heart rate 80 /min Daphne Yeageren WEB CONTENT COORDINATOR.MAINTENANCE WELDER Work Phone: [facility] 01-31-2024 08:56-0400 SaO2% (BldA) [Mass fraction] 100 % Daphne Corbinhausen WEB CONTENT COORDINATOR.MAINTENANCE WELDER Work Phone: [facility] 01-31-2024 08:56-0400 Systolic blood pressure 117 mm[Hg] Daphne Corbinhausen WEB CONTENT COORDINATOR.MAINTENANCE WELDER Work Phone: [facility] 12-23-2023 14:52-0400 Body mass index (BMI) [Ratio] 35.02 kg/m2 Lazara Suppan WEB CONTENT COORDINATOR.MAINTENANCE WELDER Work Phone: [facility] 12-23-2023 14:52-0400 Body weight 92.53 kg Lazara Suppan WEB CONTENT COORDINATOR.MAINTENANCE WELDER Work Phone: [facility] 12-23-2023 14:52-0400 Diastolic blood pressure 70 mm[Hg] Lazara Suppan WEB CONTENT COORDINATOR.MAINTENANCE WELDER Work Phone: [facility] 12-23-2023 14:52-0400 Heart rate 85 /min Lazara Suppan WEB CONTENT COORDINATOR.MAINTENANCE WELDER Work Phone: [facility] 12-23-2023 14:52-0400 Respiratory rate 16 /min Lazara Suppan WEB CONTENT COORDINATOR.MAINTENANCE WELDER Work Phone: [facility] 12-23-2023 14:52-0400 SaO2% (BldA) [Mass fraction] 98 % Lazara Suppan WEB CONTENT COORDINATOR.MAINTENANCE WELDER Work Phone: [facility] 12-23-2023 14:52-0400 Systolic blood pressure 124 mm[Hg] Lazara Suppan WEB CONTENT COORDINATOR.MAINTENANCE WELDER Work Phone: [facility] 12-15-2023 12:49-0400 Body mass index (BMI) [Ratio] 35.53 kg/m2 Lazara Suppan WEB CONTENT COORDINATOR.MAINTENANCE WELDER Work Phone: [facility] 12-15-2023 12:49-0400 Body weight 93.89 kg Lazara Melendez WEB CONTENT COORDINATOR.MAINTENANCE WELDER Work Phone: [facility] 12-15-2023 12:49-0400 Diastolic blood pressure 64 mm[Hg] Lazara Melendez WEB CONTENT COORDINATOR.MAINTENANCE WELDER Work Phone: [facility] 12-15-2023 12:49-0400 Heart rate 96 /min Lazara Melendez WEB CONTENT COORDINATOR.MAINTENANCE WELDER Work Phone: [facility] 12-15-2023 12:49-0400 Respiratory rate 16 /min Lazara Jahairaan WEB CONTENT COORDINATOR.MAINTENANCE WELDER Work Phone: [facility] 12-15-2023 12:49-0400 SaO2% (BldA) [Mass fraction] 96 % Lazara Melendez WEB CONTENT COORDINATOR.MAINTENANCE WELDER Work Phone: [facility] 12-15-2023 12:49-0400 Systolic blood pressure 128 mm[Hg] Lazara Melendez WEB CONTENT COORDINATOR.MAINTENANCE WELDER Work Phone: [facility] 11-11-2023 13:34-0400 Body mass index (BMI) [Ratio] 36.14 kg/m2 Arnulfo Lux APRN.MAINTENANCE WELDER Work Phone: [facility] 11-11-2023 13:34-0400 Body temperature 97.2 [degF] Arnulfo Lux APRN.MAINTENANCE WELDER Work Phone: [facility] 11-11-2023 13:34-0400 Body weight 95.5 kg Arnulfo Lux APRN.MAINTENANCE WELDER Work Phone: [facility] 11-11-2023 13:34-0400 Diastolic blood pressure 72 mm[Hg] Arnulfo Lux APRN.MAINTENANCE WELDER Work Phone: [facility] 11-11-2023 13:34-0400 Heart rate 92 /min Arnulfo Lux APRN.MAINTENANCE WELDER Work Phone: [facility] 11-11-2023 13:34-0400 Respiratory rate 18 /min Arnulfo Lux APRN.MAINTENANCE WELDER Work Phone: [facility] 11-11-2023 13:34-0400 SaO2% (BldA) [Mass fraction] 97 % Arnulfo Lux APRN.MAINTENANCE WELDER Work Phone: [facility] 11-11-2023 13:34-0400 Systolic blood pressure 124 mm[Hg] Arnulfo Lux APRN.MAINTENANCE WELDER Work Phone: [facility] 09-27-2023 14:00-0400 Diastolic blood pressure 80 mm[Hg] Tracy Aguillon WEB CONTENT COORDINATOR.CNM Work Phone: [facility] 09-27-2023 14:00-0400 Systolic blood pressure 120 mm[Hg] Tracy Aguillon WEB CONTENT COORDINATOR.CNM Work Phone: [facility] 09-27-2023 13:45-0400 Body mass index (BMI) [Ratio] 36.39 kg/m2 Tracy Pal WEB CONTENT COORDINATOR.CNM Work Phone: [facility] 09-27-2023 13:45-0400 Body weight 96.16 kg Tarcy Aguillon WEB CONTENT COORDINATOR.CNM Work Phone: [facility] 09-14-2023 14:17-0400 Body height 162.6 cm Tracy Aguillon WEB CONTENT COORDINATOR.CNM Work Phone: [facility] 09-14-2023 14:17-0400 Body mass index (BMI) [Ratio] 36.66 kg/m2 Tracy Aguillon WEB CONTENT COORDINATOR.CNM Work Phone: [facility] 09-14-2023 14:17-0400 Body weight 96.89 kg Tracy Aguillon WEB CONTENT COORDINATOR.CNM Work Phone: [facility] 09-14-2023 14:17-0400 Diastolic blood pressure 74 mm[Hg] Tracy Aguillon WEB CONTENT COORDINATOR.CNM Work Phone: [facility] 09-14-2023 14:17-0400 Systolic blood pressure 120 mm[Hg] Tracy Aguillon WEB CONTENT COORDINATOR.CNM Work Phone: [facility] 08-30-2023 10:39-0400 Body mass index (BMI) [Ratio] 34.95 kg/m2 Lazara Suppan WEB CONTENT COORDINATOR.COLLAR FUSER Work Phone: [facility] 08-30-2023 10:39-0400 Body weight 95.25 kg Lazara Suppan WEB CONTENT COORDINATOR.COLLAR FUSER Work Phone: [facility] 08-30-2023 10:39-0400 Diastolic blood pressure 80 mm[Hg] Lazraa Suppan WEB CONTENT COORDINATOR.COLLAR FUSER Work Phone: [facility] 08-30-2023 10:39-0400 Heart rate 87 /min Lazara Suppan WEB CONTENT COORDINATOR.COLLAR FUSER Work Phone: [facility] 08-30-2023 10:39-0400 Respiratory rate 20 /min Lazara Suppan WEB CONTENT COORDINATOR.COLLAR FUSER Work Phone: [facility] 08-30-2023 10:39-0400 SaO2% (BldA) [Mass fraction] 95 % Lazara Suppan WEB CONTENT COORDINATOR.COLLAR FUSER Work Phone: [facility] 08-30-2023 10:39-0400 Systolic blood pressure 132 mm[Hg] Lazara Suppan WEB CONTENT COORDINATOR.COLLAR FUSER Work Phone: [facility] 06-17-2023 00:58-0500 Body temperature 97.9 [degF] Dr. Eldon Hernandez Work Phone: [facility] 06-17-2023 00:58-0500 Diastolic blood pressure 84 mm[Hg] Dr. Eldon Hernandez Work Phone: [facility] 06-17-2023 00:58-0500 Heart rate 84 /min Dr. Eldon Hernandez Work Phone: [facility] 06-17-2023 00:58-0500 Respiratory rate 16 /min Dr. Eldon Hernandez Work Phone: [facility] 06-17-2023 00:58-0500 SaO2% (BldA) [Mass fraction] 96 % Dr. Eldon Hernandez Work Phone: 5(502)704-009541 [place] [address] 06-17-2023 00:58-0500 Systolic blood pressure 157 mm[Hg] Dr. Eldon Hernandez Work Phone: 9(842)156-602921 [place] [address] 06-16-2023 21:39-0500 Body height 165.[address] Eldon Hernandez Work Phone: 4(271)595-755221 [place] [address] 06-16-2023 21:39-0500 Body mass index (BMI) [Ratio] 35.3 kg/m2 Dr. Eldon Hernandez Work Phone: 3(289)040-216821 [place] [address] 06-16-2023 21:39-0500 Body weight 96.[address] Eldon Hernandez Work Phone: 7(592)719-252321 [place] [address] 05-27-2023 09:10-0500 Body height 162.[address] Eldon Hernandez Work Phone: 4(009)764-269821 [place] [address] 05-27-2023 09:10-0500 Body mass index (BMI) [Ratio] 36.8 kg/m2 Dr. Eldon Hernandez Work Phone: 6(692)341-018121 [place] [address] 05-27-2023 09:10-0500 Body temperature 96.8 [degF] Dr. Eldon Hernandez Work Phone: 3(173)835-560321 [place] [address] 05-27-2023 09:10-0500 Body weight 97.[address] Eldon Hernandez Work Phone: 3(921)188-644721 [place] [address] 05-27-2023 09:10-0500 Diastolic blood pressure 89 mm[Hg] Dr. Eldon Hernandez Work Phone: 2(080)816-808721 [place] [address] 05-27-2023 09:10-0500 Heart rate 99 /min Dr. Eldon Hernandez Work Phone: 2(967)743-489621 [place] [address] 05-27-2023 09:10-0500 Respiratory rate 16 /min Dr. Eldon Hernandez Work Phone: 5(103)361-951721 [place] [address] 05-27-2023 09:10-0500 SaO2% (BldA) [Mass fraction] 97 % Dr. Eldon Hernandez Work Phone: 7(541)701-791221 [place] [address] 05-27-2023 09:10-0500 Systolic blood pressure 152 mm[Hg] Dr. Eldon Hernandez Work Phone: 2(005)927-048841 [place] [address] 05-11-2023 07:56-0500 Body height 162.[address] Eldon Hernandez Work Phone: [facility] 05-11-2023 07:56-0500 Body mass index (BMI) [Ratio] 36.6 kg/m2 Dr. Eldon Hernandez Work Phone: 2(264)286-703441 [place] [address] 05-11-2023 07:56-0500 Body temperature 98.2 [degF] Dr. Eldon Hernandez Work Phone: 3(180)316-732541 [place] [address] 05-11-2023 07:56-0500 Body weight 96.[address] Eldon Hernandez Work Phone: 1(662)194-262521 [place] [address] 05-11-2023 07:56-0500 Diastolic blood pressure 84 mm[Hg] Dr. Eldon Hernandez Work Phone: 4(513)798-044341 [place] [address] 05-11-2023 07:56-0500 Heart rate 112 /min Dr. Eldon Hernandez Work Phone: 9(508)878-049641 [place] [address] 05-11-2023 07:56-0500 Respiratory rate 24 /min Dr. Eldon Hernandez Work Phone: 3(055)017-920341 [place] [address] 05-11-2023 07:56-0500 SaO2% (BldA) [Mass fraction] 93 % Dr. Eldon Hernandez Work Phone: 4(808)543-014741 [place] [address] 05-11-2023 07:56-0500 Systolic blood pressure 151 mm[Hg] Dr. Eldon Hernandez Work Phone: 1(982)398-618941 [place] [address] 04-30-2023 17:40-0500 Body height 162.56 cm [facility] 04-30-2023 17:40-0500 Body mass index (BMI) [Ratio] 36.7 kg/m2 [facility] 04-30-2023 17:40-0500 Body temperature 97.1 [degF] [facility] 04-30-2023 17:40-0500 Body weight 97.15 kg [facility] 04-30-2023 17:40-0500 Diastolic blood pressure 87 mm[Hg] [facility] 04-30-2023 17:40-0500 Heart rate 98 /min [facility] 04-30-2023 17:40-0500 Respiratory rate 18 /min [facility] 04-30-2023 17:40-0500 SaO2% (BldA) [Mass fraction] 97 % [facility] 04-30-2023 17:40-0500 Systolic blood pressure 160 mm[Hg] [facility] 01-22-2023 19:48-0400 Body height 162.[address] Eldon Hernandez Work Phone: 5(954)332-113321 [place] [address] 01-22-2023 19:48-0400 Body mass index (BMI) [Ratio] 36.6 kg/m2 Dr. Eldon Hernandez Work Phone: 3(815)447-851015 [address] 01-22-2023 19:48-0400 Body temperature 98.6 [degF] Dr. Eldon Hernandez Work Phone: 8(647)136-749241 [place] [address] 01-22-2023 19:48-0400 Body weight 96.[address] Eldon Hernandez Work Phone: 4(463)365-560715 [address] 01-22-2023 19:48-0400 Diastolic blood pressure 90 mm[Hg] Dr. Eldon Hernandez Work Phone: 9(190)073-549441 [place] [address] 01-22-2023 19:48-0400 Heart rate 99 /min Dr. Eldon Hernandez Work Phone: 6(850)795-458241 [place] [address] 01-22-2023 19:48-0400 Respiratory rate 18 /min Dr. Eldon Hernandez Work Phone: 2(277)103-199641 [place] [address] 01-22-2023 19:48-0400 SaO2% (BldA) [Mass fraction] 95 % Dr. Eldon Hernandez Work Phone: [facility] 01-22-2023 19:48-0400 Systolic blood pressure 135 mm[Hg] Dr. Eldon Hernandez Work Phone: 2(537)701-633141 [place] [address] 01-08-2023 09:14-0400 Body height 162.[address] Eldon Hernandez Work Phone: [facility] 01-08-2023 09:14-0400 Body mass index (BMI) [Ratio] 36 kg/m2 Dr. Eldon Hernandez Work Phone: [facility] 01-08-2023 09:14-0400 Body temperature 96.8 [degF] Dr. Eldon Hernandez Work Phone: 9(092)692-378215 [address] 01-08-2023 09:14-0400 Body weight 95.[address] Eldon Hernandez Work Phone: 9(756)346-992721 [place] [address] 01-08-2023 09:14-0400 Diastolic blood pressure 91 mm[Hg] Dr. Eldon Hernandez Work Phone: 4(509)519-858121 [place] [address] 01-08-2023 09:14-0400 Heart rate 109 /min Dr. Eldon Hernandez Work Phone: 1(629)322-788621 [place] [address] 01-08-2023 09:14-0400 Respiratory rate 20 /min Dr. Eldon Hernandez Work Phone: 3(772)689-651821 [place] [address] 01-08-2023 09:14-0400 SaO2% (BldA) [Mass fraction] 100 % Dr. Eldon Hernandez Work Phone: 7(150)217-536541 [place] [address] 01-08-2023 09:14-0400 Systolic blood pressure 126 mm[Hg] Dr. Eldon Hernandez Work Phone: 7(711)428-361641 [place] [address] 11-17-2022 21:15-0400 Respiratory rate 18 /min Dr. Eldon Hernandez Work Phone: 8(868)018-348141 [place] [address] 11-17-2022 17:51-0400 Diastolic blood pressure 87 mm[Hg] Dr. Eldon Hernandez Work Phone: 7(576)025-622841 [place] [address] 11-17-2022 17:51-0400 Heart rate 81 /min Dr. Eldon Hernandez Work Phone: 9(182)107-618441 [place] [address] 11-17-2022 17:51-0400 SaO2% (BldA) [Mass fraction] 97 % Dr. Eldon Hernandez Work Phone: 5(670)515-997621 [place] [address] 11-17-2022 17:51-0400 Systolic blood pressure 162 mm[Hg] Dr. Eldon Hernandez Work Phone: 4(050)659-395221 [place] [address] 11-17-2022 17:15-0400 Body mass index (BMI) [Ratio] 36.1 kg/m2 Dr. Eldon Hernandez Work Phone: 8(946)224-536821 [place] [address] 11-17-2022 17:15-0400 Body temperature 98.3 [degF] Dr. Eldon Hernandez Work Phone: 3(023)634-119621 [place] [address] 11-17-2022 17:15-0400 Body weight 95.[address] Eldon Hernandez Work Phone: 5(348)089-653921 [place] [address] 10-15-2022 08:47-0400 Body mass index (BMI) [Ratio] 34.2 kg/m2 Dr. Eldon Hernandez Work Phone: 5(839)723-713821 [place] [address] 10-15-2022 08:47-0400 Body temperature 97.6 [degF] Dr. Eldon Hernandez Work Phone: 7(212)262-645221 [place] [address] 10-15-2022 08:47-0400 Body weight 93.[address] Eldon Hernnadez Work Phone: 1(955)621-654221 [place] [address] 10-15-2022 08:47-0400 Diastolic blood pressure 86 mm[Hg] Dr. Eldon Hernandez Work Phone: 2(786)651-057821 [place] [address] 10-15-2022 08:47-0400 Heart rate 89 /min Dr. Eldon Hernandez Work Phone: 3(736)389-472421 [place] [address] 10-15-2022 08:47-0400 Respiratory rate 18 /min Dr. Eldon Hernandez Work Phone: 7(795)563-552221 [place] [address] 10-15-2022 08:47-0400 SaO2% (BldA) [Mass fraction] 96 % Dr. Eldon Hernandez Work Phone: 9(561)002-376021 [place] [address] 10-15-2022 08:47-0400 Systolic blood pressure 133 mm[Hg] Dr. Eldon Hernandez Work Phone: 1(519)580-862421 [place] [address] 06-28-2022 14:50-0500 Body temperature 98.01 [degF] NA Ortega PA-C Work Phone: [facility] 06-28-2022 14:50-0500 Body weight 89.36 kg NA Ortega PA-C Work Phone: [facility] 06-28-2022 14:50-0500 Diastolic blood pressure 76 mm[Hg] NA Ortega PA-C Work Phone: [facility] 06-28-2022 14:50-0500 Heart rate 104 /min NA Ortega PA-C Work Phone: [facility] 06-28-2022 14:50-0500 Respiratory rate 16 /min NA Ortega PA-C Work Phone: [facility] 06-28-2022 14:50-0500 SaO2% (BldA) [Mass fraction] 96 % NA Ortega PA-C Work Phone: [facility] 06-28-2022 14:50-0500 Systolic blood pressure 128 mm[Hg] NA Ortega PA-C Work Phone: [facility] 06-08-2022 12:29-0500 Body height 165.[address] Eldon Hernandez Work Phone: [facility] 06-08-2022 12:29-0500 Body weight 90.[address] Eldon Hernandez Work Phone: [facility] 06-08-2022 12:29-0500 Heart rate 104 /min Dr. Eldon Hernandez Work Phone: [facility] 06-08-2022 12:29-0500 Inhaled oxygen concentration 21 % Dr. Eldon Hernandez Work Phone: [facility] 06-08-2022 12:29-0500 SaO2% (BldA) [Mass fraction] 95 % Dr. Eldon Hernandez Work Phone: [facility] 05-13-2022 06:23-0500 Body mass index (BMI) [Ratio] 33.7 kg/m2 Dr. Eldon Hernandez Work Phone: 6(432)652-406221 [place] [address] 05-13-2022 06:23-0500 Body temperature 98.1 [degF] Dr. Eldon Hernandez Work Phone: 9(544)059-243921 [place] [address] 05-13-2022 06:23-0500 Body weight 92.[address] Eldon Hernandez Work Phone: 7(940)954-258521 [place] [address] 05-13-2022 06:23-0500 Diastolic blood pressure 85 mm[Hg] Dr. Eldon Hernandez Work Phone: 4(459)101-027121 [place] [address] 05-13-2022 06:23-0500 Heart rate 104 /min Dr. Eldon Hernandez Work Phone: 8(166)326-322921 [place] [address] 05-13-2022 06:23-0500 Respiratory rate 18 /min Dr. Eldon Hernandez Work Phone: 6(236)116-578321 [place] [address] 05-13-2022 06:23-0500 SaO2% (BldA) [Mass fraction] 97 % Dr. Eldon Hernandez Work Phone: 8(865)724-379921 [place] [address] 05-13-2022 06:23-0500 Systolic blood pressure 144 mm[Hg] Dr. Eldon Hernandez Work Phone: 6(453)656-677721 [place] [address] 04-29-2022 13:51-0500 SaO2% (BldA) [Mass fraction] 99 % Dr. Eldon Hernandez Work Phone: 9(523)826-905521 [place] [address] 04-29-2022 11:43-0500 Diastolic blood pressure 71 mm[Hg] Dr. Eldon Hernandez Work Phone: 0(257)984-122321 [place] [address] 04-29-2022 11:43-0500 Heart rate 84 /min Dr. Eldon Hernandez Work Phone: 4(536)779-223221 [place] [address] 04-29-2022 11:43-0500 Respiratory rate 16 /min Dr. Eldon Hernandez Work Phone: 0(238)517-509621 [place] [address] 04-29-2022 11:43-0500 Systolic blood pressure 139 mm[Hg] Dr. Eldon Hernandez Work Phone: 8(533)023-419321 [place] [address] 04-29-2022 10:24-0500 Body temperature 98.6 [degF] Dr. Eldon Hernandez Work Phone: [facility] 04-29-2022 09:30-0500 Body height 165.[address] Eldon Hernandez Work Phone: [facility] Work Phone: 04-29-2022 09:30-0500 Body mass index (BMI) [Ratio] 33.1 kg/m2 Dr. Eldon Hernandez Work Phone: [facility] 04-29-2022 09:30-0500 Body weight 90.[address] Eldon Hernandez Work Phone: [facility] 04-23-2022 10:45-0500 Body temperature 98.4 [degF] NA Ortega PA-C Work Phone: [facility] 04-23-2022 10:45-0500 Body weight 90.27 kg NA Ortega PA-C Work Phone: [facility] 04-23-2022 10:45-0500 Diastolic blood pressure 80 mm[Hg] NA Ortega PA-C Work Phone: [facility] 04-23-2022 10:45-0500 Heart rate 110 /min NA Ortega PA-C Work Phone: [facility] 04-23-2022 10:45-0500 Respiratory rate 20 /min NA Ortega PA-C Work Phone: [facility] 04-23-2022 10:45-0500 SaO2% (BldA) [Mass fraction] 95 % NA Ortega PA-C Work Phone: [facility] 04-23-2022 10:45-0500 Systolic blood pressure 116 mm[Hg] NA Ortega PA-C Work Phone: [facility] 04-15-2022 12:33-0500 Body temperature 97.59 [degF] Ines Ryan APRN.CNP Work Phone: [facility] 04-15-2022 12:33-0500 Body weight 93.98 kg Ines Shelby WEB CONTENT COORDINATOR.MAINTENANCE WELDER Work Phone: [facility] 04-15-2022 12:33-0500 Diastolic blood pressure 84 mm[Hg] Ines Shelby WEB CONTENT COORDINATOR.MAINTENANCE WELDER Work Phone: [facility] 04-15-2022 12:33-0500 Heart rate 99 /min Ines Shelby WEB CONTENT COORDINATOR.MAINTENANCE WELDER Work Phone: [facility] 04-15-2022 12:33-0500 Respiratory rate 20 /min Ines Shelby WEB CONTENT COORDINATOR.MAINTENANCE WELDER Work Phone: [facility] 04-15-2022 12:33-0500 SaO2% (BldA) [Mass fraction] 95 % Ines Shelby WEB CONTENT COORDINATOR.MAINTENANCE WELDER Work Phone: [facility] 04-15-2022 12:33-0500 Systolic blood pressure 142 mm[Hg] Ines Shelby WEB CONTENT COORDINATOR.MAINTENANCE WELDER Work Phone: [facility] 04-12-2022 11:05-0500 SaO2% (BldA) [Mass fraction] 92 % Dr. Eldon Hernandez Work Phone: [facility] 04-12-2022 10:00-0500 Body temperature 96.7 [degF] Dr. Eldon Hernandez Work Phone: [facility] 04-12-2022 10:00-0500 Diastolic blood pressure 75 mm[Hg] Dr. Eldon Hernandez Work Phone: [facility] 04-12-2022 10:00-0500 Heart rate 96 /min Dr. Eldon Hernandez Work Phone: [facility] 04-12-2022 10:00-0500 Respiratory rate 20 /min Dr. Eldon Hernandez Work Phone: [facility] 04-12-2022 10:00-0500 Systolic blood pressure 138 mm[Hg] Dr. Eldon Hernandez Work Phone: [facility] 04-12-2022 03:37-0500 Body weight 97.[address] Eldon Hernandez Work Phone: [facility] 04-12-2022 03:15-0500 Inhaled oxygen flow rate 2 L/min Dr. Eldon Hernandez Work Phone: [facility] 04-08-2022 10:49-0500 Body height 165.[address] Eldon Hernandez Work Phone: [facility] Work Phone: 04-07-2022 13:49-0500 Body mass index (BMI) [Ratio] 33.1 kg/m2 Dr. Eldon Hernandez Work Phone: [facility] 04-07-2022 13:26-0500 Body temperature 98.2 [degF] [facility] Work Phone: 04-07-2022 13:26-0500 Diastolic blood pressure 69 mm[Hg] [facility] Work Phone: 04-07-2022 13:26-0500 Heart rate 87 /min [facility] Work Phone: 04-07-2022 13:26-0500 Respiratory rate 26 /min [facility] Work Phone: 04-07-2022 13:26-0500 SaO2% (BldA) [Mass fraction] 94 % [facility] Work Phone: 04-07-2022 13:26-0500 Systolic blood pressure 148 mm[Hg] [facility] Work Phone: 04-07-2022 10:55-0500 Body height 167.64 cm [facility] Work Phone: 04-07-2022 10:55-0500 Body mass index (BMI) [Ratio] 31.7 kg/m2 [facility] Work Phone: 04-07-2022 10:55-0500 Body weight 89.17 kg [facility] Work Phone: 04-02-2022 00:26-0500 Diastolic blood pressure 60 mm[Hg] [facility] 04-02-2022 00:26-0500 Heart rate 87 /min [facility] 04-02-2022 00:26-0500 Respiratory rate 18 /min [facility] 04-02-2022 00:26-0500 SaO2% (BldA) [Mass fraction] 97 % [facility] 04-02-2022 00:26-0500 Systolic blood pressure 124 mm[Hg] [facility] 04-01-2022 22:48-0500 Body height 165.1 cm [facility] Work Phone: 04-01-2022 22:48-0500 Body mass index (BMI) [Ratio] 34.9 kg/m2 [facility] 04-01-2022 22:48-0500 Body temperature 98 [degF] [facility] 04-01-2022 22:48-0500 Body weight 95.25 kg [facility] 01-11-2022 13:50-0400 Body weight 95.17 kg Madhuri Zurdestiney WEB CONTENT COORDINATOR.MAINTENANCE WELDER Work Phone: [facility] 01-11-2022 13:50-0400 Diastolic blood pressure 76 mm[Hg] Madhuri Zurawick WEB CONTENT COORDINATOR.MAINTENANCE WELDER Work Phone: [facility] 01-11-2022 13:50-0400 Heart rate 83 /min Madhuri Zurawick WEB CONTENT COORDINATOR.MAINTENANCE WELDER Work Phone: [facility] 01-11-2022 13:50-0400 Respiratory rate 16 /min Madhuri Zurawick WEB CONTENT COORDINATOR.MAINTENANCE WELDER Work Phone: [facility] 01-11-2022 13:50-0400 SaO2% (BldA) [Mass fraction] 96 % Madhuri Sai WEB CONTENT COORDINATOR.MAINTENANCE WELDER Work Phone: [facility] 01-11-2022 13:50-0400 Systolic blood pressure 120 mm[Hg] Madhuri Zurawick WEB CONTENT COORDINATOR.MAINTENANCE WELDER Work Phone: [facility] 11-28-2021 17:43-0400 Body height 165.[address] Eldon Hernandez Work Phone: [facility] Work Phone: 11-28-2021 17:43-0400 Body mass index (BMI) [Ratio] 34.4 kg/m2 Dr. Eldon Hernandez Work Phone: [facility] Work Phone: 11-28-2021 17:43-0400 Body temperature 97.4 [degF] Dr. Eldon Hernandez Work Phone: [facility] Work Phone: 11-28-2021 17:43-0400 Body weight 93.[address] Eldon Hernandez Work Phone: [facility] Work Phone: 11-28-2021 17:43-0400 Diastolic blood pressure 84 mm[Hg] Dr. Eldon Hernandez Work Phone: [facility] Work Phone: 11-28-2021 17:43-0400 Heart rate 99 /min Dr. Eldon Hernandez Work Phone: [facility] Work Phone: 11-28-2021 17:43-0400 Respiratory rate 15 /min Dr. Eldon Hernandez Work Phone: [facility] Work Phone: 11-28-2021 17:43-0400 SaO2% (BldA) [Mass fraction] 95 % Dr. Eldon Hernandez Work Phone: [facility] Work Phone: 11-28-2021 17:43-0400 Systolic blood pressure 131 mm[Hg] Dr. Eldon Hernandez Work Phone: [facility] Work Phone: 10-15-2021 14:52-0400 Body temperature 98.8 [degF] Tracy Meyer APRN.MAINTENANCE WELDER Work Phone: [facility] 10-15-2021 14:52-0400 Body weight 93.89 kg Tracy Meyer WEB CONTENT COORDINATOR.MAINTENANCE WELDER Work Phone: [facility] 10-15-2021 14:52-0400 Diastolic blood pressure 96 mm[Hg] Tracy Meyer WEB CONTENT COORDINATOR.MAINTENANCE WELDER Work Phone: [facility] 10-15-2021 14:52-0400 Heart rate 122 /min Tracy Meyer WEB CONTENT COORDINATOR.MAINTENANCE WELDER Work Phone: [facility] 10-15-2021 14:52-0400 Respiratory rate 20 /min Tracy Meyer WEB CONTENT COORDINATOR.MAINTENANCE WELDER Work Phone: [facility] 10-15-2021 14:52-0400 SaO2% (BldA) [Mass fraction] 96 % Tracy Meyer WEB CONTENT COORDINATOR.MAINTENANCE WELDER Work Phone: [facility] 10-15-2021 14:52-0400 Systolic blood pressure 130 mm[Hg] Tracy Meyer WEB CONTENT COORDINATOR.MAINTENANCE WELDER Work Phone: [facility] 10-14-2021 19:41-0400 Body height 165.[address] Eldon Hernandez Work Phone: [facility] Work Phone: 10-14-2021 19:41-0400 Body mass index (BMI) [Ratio] 34.1 kg/m2 Dr. Eldon Hernandez Work Phone: [facility] Work Phone: 10-14-2021 19:41-0400 Body temperature 98 [degF] Dr. Eldon Hernandez Work Phone: [facility] Work Phone: 10-14-2021 19:41-0400 Body weight [address] Eldon Hernandez Work Phone: [facility] Work Phone: 10-14-2021 19:41-0400 Diastolic blood pressure 93 mm[Hg] Dr. Eldon Hernandez Work Phone: [facility] Work Phone: 10-14-2021 19:41-0400 Heart rate 99 /min Dr. Eldon Hernandez Work Phone: [facility] Work Phone: 10-14-2021 19:41-0400 Respiratory rate 16 /min Dr. Eldon Hernandez Work Phone: [facility] Work Phone: 10-14-2021 19:41-0400 SaO2% (BldA) [Mass fraction] 97 % Dr. Eldon Hernandez Work Phone: [facility] Work Phone: 10-14-2021 19:41-0400 Systolic blood pressure 152 mm[Hg] Dr. Eldon Hernandez Work Phone: [facility] Work Phone: 10-01-2021 10:16-0400 Body weight 93.89 kg NA Ortega PA-C Work Phone: [facility] 10-01-2021 10:16-0400 Diastolic blood pressure 66 mm[Hg] NA Ortega PA-C Work Phone: [facility] 10-01-2021 10:16-0400 Heart rate 85 /min NA Ortega PA-C Work Phone: [facility] 10-01-2021 10:16-0400 Respiratory rate 16 /min NA Ortega PA-C Work Phone: [facility] 10-01-2021 10:16-0400 SaO2% (BldA) [Mass fraction] 97 % NA Ortega PA-C Work Phone: [facility] 10-01-2021 10:16-0400 Systolic blood pressure 118 mm[Hg] NA Ortega PA-C Work Phone: [facility] 08-25-2021 15:59-0400 Body height 162.[address] Eldon Hernandez Work Phone: [facility] Work Phone: 08-25-2021 15:59-0400 Body mass index (BMI) [Ratio] 32.5 kg/m2 Dr. Eldon Hernandez Work Phone: [facility] Work Phone: 08-25-2021 15:59-0400 Body temperature 96.9 [degF] Dr. Eldon Hernandez Work Phone: [facility] Work Phone: 08-25-2021 15:59-0400 Body weight 86.[address] Eldon Hernandez Work Phone: [facility] Work Phone: 08-25-2021 15:59-0400 Diastolic blood pressure 93 mm[Hg] Dr. Eldon Hernandez Work Phone: [facility] Work Phone: 08-25-2021 15:59-0400 Heart rate 88 /min Dr. Eldon Hernandez Work Phone: [facility] Work Phone: 08-25-2021 15:59-0400 Respiratory rate 15 /min Dr. Eldon Hernandez Work Phone: [facility] Work Phone: 08-25-2021 15:59-0400 SaO2% (BldA) [Mass fraction] 99 % Dr. Eldon Hernandez Work Phone: [facility] Work Phone: 08-25-2021 15:59-0400 Systolic blood pressure 161 mm[Hg] Dr. Eldon Hernandez Work Phone: [facility] Work Phone: 07-13-2021 10:47-0400 Body weight 92.08 kg Tracy Aguillon APRN.CNM Work Phone: [facility] 07-13-2021 10:47-0400 Diastolic blood pressure 76 mm[Hg] Tracy Aguillon APRN.CNM Work Phone: [facility] 07-13-2021 10:47-0400 Systolic blood pressure 118 mm[Hg] Tracy Aguillon APRN.CN Work Phone: [facility] 06-16-2021 04:38-0500 Diastolic blood pressure 73 mm[Hg] Dr. Eldon Hernandez Work Phone: [facility] Work Phone: 06-16-2021 04:38-0500 Heart rate 78 /min Dr. Eldon Hernandez Work Phone: [facility] Work Phone: 06-16-2021 04:38-0500 Respiratory rate 17 /min Dr. Eldon Hernandez Work Phone: [facility] Work Phone: 06-16-2021 04:38-0500 SaO2% (BldA) [Mass fraction] 98 % Dr. Eldon Hernandez Work Phone: [facility] Work Phone: 06-16-2021 04:38-0500 Systolic blood pressure 120 mm[Hg] Dr. Eldon Hernandez Work Phone: [facility] Work Phone: 06-16-2021 03:38-0500 Diastolic blood pressure 73 mm[Hg] Dr. Eldon Hernandez Work Phone: [facility] Work Phone: 06-16-2021 03:38-0500 Heart rate 78 /min Dr. Eldon Hernandez Work Phone: [facility] Work Phone: 06-16-2021 03:38-0500 Respiratory rate 17 /min Dr. Eldon Hernandez Work Phone: [facility] Work Phone: 06-16-2021 03:38-0500 SaO2% (BldA) [Mass fraction] 98 % Dr. Eldon Hernandez Work Phone: [facility] Work Phone: 06-16-2021 03:38-0500 Systolic blood pressure 120 mm[Hg] Dr. Eldon Hernandez Work Phone: [facility] Work Phone: 06-16-2021 01:23-0500 Body mass index (BMI) [Ratio] 36.1 kg/m2 Dr. Eldon Hernandez Work Phone: [facility] Work Phone: 06-16-2021 01:23-0500 Body temperature 97.7 [degF] Dr. Eldon Hernandez Work Phone: [facility] Work Phone: 06-16-2021 01:23-0500 Body weight 92.[address] Eldon Hernandez Work Phone: [facility] Work Phone: 06-16-2021 00:23-0500 Body mass index (BMI) [Ratio] 36.1 kg/m2 Dr. Eldon Hernandez Work Phone: [facility] Work Phone: 06-16-2021 00:23-0500 Body temperature 97.7 [degF] Dr. Eldon Hernandez Work Phone: [facility] Work Phone: 06-16-2021 00:23-0500 Body weight 92.[address] Eldon Hernandez Work Phone: [facility] Work Phone: 06-10-2021 08:57-0500 Body mass index (BMI) [Ratio] 34.7 kg/m2 Dr. Eldon Hernandez Work Phone: [facility] Work Phone: 06-10-2021 08:57-0500 Body temperature 97 [degF] Dr. Eldon Hernandez Work Phone: [facility] Work Phone: 06-10-2021 08:57-0500 Body weight 89.[address] Eldon Hernandez Work Phone: [facility] Work Phone: 06-10-2021 08:57-0500 Diastolic blood pressure 97 mm[Hg] Dr. Eldon Hernandez Work Phone: [facility] Work Phone: 06-10-2021 08:57-0500 Heart rate 103 /min Dr. Eldon Hernandez Work Phone: [facility] Work Phone: 06-10-2021 08:57-0500 Respiratory rate 17 /min Dr. Eldon Hernandez Work Phone: [facility] Work Phone: 06-10-2021 08:57-0500 SaO2% (BldA) [Mass fraction] 98 % Dr. Eldon Hernandez Work Phone: [facility] Work Phone: 06-10-2021 08:57-0500 Systolic blood pressure 133 mm[Hg] Dr. Eldon Hernandez Work Phone: [facility] Work Phone: Encounters Encounter Date Encounter Type Care Provider Facility Start: 02-26-2025 ambulatory Eldon Hernandez Facility:[facility] Start: 01-15-2025 End: 01-15-2025 ambulatory LAZARA MELENDEZ Facility:[facility] Start: 11-30-2024 End: 11-30-2024 Subsequent hospital visit by physician Joey [address] Comment on above: Chest pain, unspecif ied; Shortness of breath; Obstructive sleep apnea (adult) (pediatric); Essential (primary) hypertension; Tachycardia, unspecified Start: 11-30-2024 End: 11-30-2024 ambulatory JOHN Ortiz [facility] Start: 11-05-2024 End: 11-05-2024 Office outpatient visit 25 minutes Lazara Melendez WEB CONTENT COORDINATOR.MAINTENANCE WELDER Work Phone: [facility] Comment on above: Boil of buttock (Kiki murali Dx); Pneumonia of right lung due to infectious organism, unspecified part of lung; Depression, major, single episode, moderate (HCC); Neuropathic pain; Fibromyalgia; Type 2 diabetes mellitus with hyperglycemia, with long-term current use of insulin (HCC) Start: 11-05-2024 End: 11-05-2024 ambulatory LAZARA A SUPPAN Facility:[facility] Start: 08-20-2024 End: 10-23-2024 Telephone encounter Lazara Melendez WEB CONTENT COORDINATOR.MAINTENANCE WELDER Work Phone: [facility] [place] Comment on above: letter Start: 08-09-2024 End: 08-13-2024 Telephone encounter Lazara Melendez WEB CONTENT COORDINATOR.MAINTENANCE WELDER Work Phone: [facility] [place] Comment on above: Insurance Authorizat ion Start: 08-09-2024 End: 08-09-2024 Office outpatient visit 15 minutes Lazara Melendez WEB CONTENT COORDINATOR.MAINTENANCE WELDER Work Phone: [facility] [place] Comment on above: Type 2 diabetes homer itus with hyperglycemia, with long-term current use of insulin (HCC) (Primary Dx); Encounter for immunization; Essential hypertension; Chronic obstructive pulmonary disease with acute lower respiratory infection (HCC); Mixed hyperlipidemia; Current moderate episode of major depressive disorder without prior episode (HCC); Fibromyalgia; Neuropathic pain Start: 08-09-2024 End: 08-09-2024 ambulatory LAZARA A SUPPAN Facility:[facility] Start: 07-14-2024 End: 07-14-2024 Telephone encounter Adrienne Locke APRN.MAINTENANCE WELDER Work Phone: Endocrinology Start: 07-11-2024 End: 07-11-2024 ambulatory LAZARA A SUPPAN Facility:[facility] Start: 07-11-2024 End: 07-11-2024 Patient encounter procedure Adrienne Locke WEB CONTENT COORDINATOR.MAINTENANCE WELDER Work Phone: Endocrinology Comment on above: Poorly controlled ty pe 2 diabetes mellitus (HCC) (Primary Dx) Start: 06-14-2024 End: 06-14-2024 Telephone encounter Lazara Melendez WEB CONTENT COORDINATOR.MAINTENANCE WELDER Work Phone: [facility] [place] Start: 06-12-2024 End: 06-12-2024 ambulatory LAZARA A SUPPAN Facility:[facility] Start: 06-12-2024 End: 06-12-2024 Office outpatient visit 25 minutes Lazara A Minal ALLEN Work Phone: [facility] Comment on above: Neuropathic pain (Pr imary Dx); Type 2 diabetes mellitus with hyperglycemia, with long-term current use of insulin (HCC); Fibromyalgia; Essential hypertension; Mixed hyperlipidemia; Degeneration of intervertebral disc of lumbar region with discogenic back pain and lower extremity pain; Chronic obstructive pulmonary disease with acute lower respiratory infection (HCC); Current moderate episode of major depressive disorder without prior episode (HCC); Discogenic thoracic pain; Vitamin D deficiency Start: 05-29-2024 End: 05-29-2024 Office outpatient visit 25 minutes Lazara A Suppan LAURA.MAINTENANCE WELDER Work Phone: [facility] Comment on above: Bacterial pneumonia (Primary Dx); Type 2 diabetes mellitus without complication, without long-term current use of insulin (HCC); Current moderate episode of major depressive disorder, unspecified whether recurrent (HCC) Start: 05-29-2024 End: 05-29-2024 ambulatory LAZARA A SUPPAN Facility:[facility] Start: 05-16-2024 End: 05-16-2024 Orders Only Lonnie Pichardo MD Work Phone: OB/Gynecology Start: 05-15-2024 End: 05-15-2024 ambulatory LAZARA A SUPPAN Facility:[facility] Start: 05-15-2024 End: 05-15-2024 Patient encounter procedure Tracy Aguillon APRN.CNM Work Phone: OB/Gynecology Comment on above: Exposure to sexually transmitted disease (STD) (Primary Dx) Start: 03-21-2024 End: 03-21-2024 Refill Lazara A Suppnorbert ALLEN Work Phone: [facility] Comment on above: Refill Request Start: 03-20-2024 End: 03-20-2024 ambulatory Tracy Hutton [facility] Physical Therapy Comment on above: Degeneration of inte rvertebral disc of lumbar region with discogenic back pain and lower extremity pain (Primary Dx); Chronic thoracic spine pain; Postural kyphosis of thoracic region Start: 03-11-2024 End: 03-11-2024 Emergency department patient visit Eldon Hernandez Facility:[facility] Start: 03-02-2024 End: 03-02-2024 ambulatory GUILLE ORTEGA Facility:[facility] Start: 03-02-2024 End: 03-02-2024 Patient encounter procedure Humberto Damon MD Work Phone: Pain Management Comment on above: Degeneration of inte rvertebral disc of lumbar region with discogenic back pain and lower extremity pain (Primary Dx); Paresthesia of bilateral legs; Pain in both lower extremities; Chronic thoracic spine pain; Postural kyphosis of thoracic region Start: 02-29-2024 End: 02-29-2024 Telephone encounter Sonia Ortega PA-C Work Phone: [facility] Comment on above: Results Start: 02-28-2024 End: 02-28-2024 E-mail encounter from caregiver [facility] Start: 02-28-2024 End: 02-28-2024 Patient encounter procedure [facility] Comment on above: Instructions for you r upcoming appointment Start: 02-27-2024 End: 02-27-2024 Office outpatient visit 15 minutes Lazara Melendez APRN.MAINTENANCE WELDER Work Phone: [facility] Comment on above: Ingrown toenail (Kiki murali Dx); Type 2 diabetes mellitus with hyperglycemia, with long-term current use of insulin (HCC); Dysuria Start: 02-27-2024 End: 02-27-2024 ambulatory GUILLE ORTEGA Facility:[facility] Start: 02-14-2024 End: 02-15-2024 Refill Sonia Ortega PA-C Work Phone: [facility] Comment on above: Refill Request Start: 02-02-2024 End: 02-06-2024 ambulatory Daphne Gresham APRN.MAINTENANCE WELDER Work Phone: Neurology Comment on above: Spine Start: 02-01-2024 End: 02-01-2024 Subsequent hospital visit by physician Aide [facility] [place] Work Phone: Radiology Comment on above: Paresthesia of bilat eral legs [R20.2] Start: 01-31-2024 End: 01-31-2024 Patient encounter procedure Daphne Gresham APRN.MAINTENANCE WELDER Work Phone: Neurology Comment on above: Paresthesia of bilat eral legs (Primary Dx); Pain in both lower extremities Start: 01-13-2024 End: 01-13-2024 ambulatory No Pcp WEB CONTENT COORDINATOR [facility] Start: 01-13-2024 End: 01-13-2024 Patient encounter procedure No Pcp WEB CONTENT COORDINATOR [facility] Start: 01-12-2024 End: 01-13-2024 ambulatory Lazara Melendez APRN.MAINTENANCE WELDER Work Phone: Family [facility] [place] Comment on above: Legs Start: 01-12-2024 End: 01-12-2024 Chart abstracting Daja Nunez MA [facility] [place] Start: 12-23-2023 End: 12-23-2023 Office outpatient visit 15 minutes Lazara Melendez APRN.MAINTENANCE WELDER Work Phone: Family [facility] [place] Comment on above: Fibromyalgia; Type 2 diabetes mellitus with hyperglycemia, with long-term current use of insulin (HCC) Start: 12-23-2023 End: 12-28-2023 Telephone encounter Sonia Ortega PA-C Work Phone: [facility] [place] Comment on above: Insurance Authorizat ion Start: 12-16-2023 End: 12-16-2023 Telephone encounter Lazara Melendez APRN.MAINTENANCE WELDER Work Phone: [facility] [place] Start: 12-15-2023 End: 12-15-2023 Office outpatient visit 15 minutes Lazara Melendez APRN.MAINTENANCE WELDER Work Phone: Family [facility] [place] Comment on above: Screening for lipid disorders (Primary Dx); Fibromyalgia; Type 2 diabetes mellitus with hyperglycemia, with long-term current use of insulin (HCC); Screening for thyroid disorder Start: 11-17-2023 End: 11-17-2023 Patient encounter procedure Arnulfo Lux APRN.MAINTENANCE WELDER Work Phone: [facility] Comment on above: COVID (Primary Dx) Start: 11-11-2023 End: 11-11-2023 Patient encounter procedure Arnulfo Nicholas ERAZOMAINTENANCE WELDER Work Phone: [facility] Comment on above: URI, acute (Primary Dx); Close exposure to COVID-19 virus Start: 09-27-2023 End: 09-27-2023 Patient encounter procedure Tracy Aguillon APRN.CNM Work Phone: OB/Gynecology Comment on above: Encounter for IUD in sertion (Primary Dx); Encounter for IUD removal Start: 09-14-2023 End: 09-14-2023 Patient encounter procedure Tracy Aguillon APRN.CNM Work Phone: OB/Gynecology Comment on above: Encounter for gyneco logical examination (general) (routine) with abnormal findings (Primary Dx); Screening for cervical cancer; Encounter for screening for human papillomavirus (HPV); Encounter for screening mammogram for breast cancer; Dense breast tissue; IUD (intrauterine device) in place; WES (stress urinary incontinence, female); Screening for STDs (sexually transmitted diseases) Start: 09-14-2023 End: 09-14-2023 Patient encounter status Tracy Aguillon APRN.CNM Work Phone: [facility] Start: 09-14-2023 Telephone encounter Tracy donnelly APRN.CNM Work Phone: OB/Gynecology Comment on above: Patient Question; Re sults Start: 09-01-2023 End: 09-02-2023 ambulatory JOHN HARVEY APRN-MAINTENANCE WELDER Facility:[facility] Start: 09-01-2023 End: 09-01-2023 Patient encounter procedure JOHN HARVEY APRN-MAINTENANCE WELDER [facility] Start: 08-31-2023 Telephone encounter M Jose Rafael Ortega PA-C Work Phone: [facility] Comment on above: Results Start: 08-30-2023 End: 08-30-2023 Office outpatient visit 40 minutes Lazara Melendez APRN.COLLAR FUSER Work Phone: [facility] Comment on above: Bilateral calf pain (Primary Dx); Type 2 diabetes mellitus with hyperglycemia, with long-term current use of insulin (HCC); Psoriasis; Hypertension, unspecified type; Mixed hyperlipidemia; Fibromyalgia; Essential hypertension; Screening for diabetic retinopathy; Encounter for immunization; Acute non-recurrent maxillary sinusitis; Vaginal yeast infection Start: 08-15-2023 End: 08-16-2023 ambulatory JOHN HARVEY WEB CONTENT COORDINATOR-MAINTENANCE WELDER Facility:[facility] Start: 08-15-2023 End: 08-15-2023 Patient encounter procedure JOHN HARVEY WEB CONTENT COORDINATOR-MAINTENANCE WELDER [facility] Start: 07-14-2023 Telephone encounter Sonia Ortega PA-C Work Phone: [facility] Comment on above: Appointment Start: 06-16-2023 End: 06-17-2023 Emergency department patient visit Dr. Eldon Hernandez Work Phone: [facility] Work Phone: Start: 06-11-2023 Refill Sonia culver PA-C Work Phone: [facility] Comment on above: Refill Request Start: 05-27-2023 End: 05-27-2023 Emergency department patient visit Dr. Eldon Hernandez Work Phone: [facility] Work Phone: Start: 05-11-2023 End: 05-11-[address] Eldon Hernandez Work Phone: [facility] Work Phone: Start: 05-11-2023 End: 05-11-[address] Elodn Hernandez Work Phone: [facility] Medicine [facility] Work Phone: Start: 04-30-2023 End: 04-30-2023 [facility] Start: 02-24-2023 End: 02-24-2023 Subsequent hospital visit by physician Xr [facility] [place] Work Phone: Radiology Comment on above: Acute pain of right shoulder [M25.511] Start: 01-22-2023 End: 01-22-2023 Emergency department patient visit Dr. Eldon Hernandez [facility] Start: 01-08-2023 End: 01-08-2023 Emergency department patient visit Dr. Eldon Hernandez Work Phone: [facility] Work Phone: Start: 11-17-2022 End: 11-17-2022 Emergency department patient visit Dr. Eldon [facility] Start: 10-27-2022 ambulatory Sonia Still on PA-C Work Phone: [facility] [place] Comment on above: Question regarding M AM SCREENING Start: 10-27-2022 Documentation procedure [facility]og [facility] Start: 10-27-2022 Letter encounter Mammography Coordinator [facility] Start: 10-25-2022 End: 10-25-2022 Subsequent hospital visit by physician Screen Mammo [facility] Comment on above: Encounter for screen ing mammogram for breast cancer [Z12.31] Start: 10-15-2022 End: 10-15-[address] Eldon Hernandez Work Phone: [facility] [place] Work Phone: Start: 09-21-2022 Refill Sonia Still on PA-C Work Phone: [facility] [place] Comment on above: Refill Request Start: 08-25-2022 Telephone encounter Sonia Ortega PA-C Work Phone: [facility] [place] Comment on above: Insurance Authorizat ion ([employer] ) Start: 07-21-2022 Refill Sonia Still on PA-C Work Phone: [facility] Comment on above: Refill Request Start: 06-29-2022 End: 06-29-2022 [facility] Comment on above: Pneumonia of right l ower lobe due to methicillin resistant Staphylococcus aureus (MRSA) (HCC) [J15.212] Start: 06-29-2022 ambulatory Sonia Still on PA-C Work Phone: [facility] Comment on above: 4xs aday Start: 06-29-2022 Telephone encounter Sonia Ortega PA-C Work Phone: [facility] Comment on above: cxr Start: 06-28-2022 End: 06-28-2022 Patient encounter procedure Sonia Ortega PA-C Work Phone: [facility] Comment on above: Pneumonia of right l ower lobe due to methicillin resistant Staphylococcus aureus (MRSA) (HCC) (Primary Dx); Lupus (HCC); Type 2 diabetes mellitus with hyperglycemia, with long-term current use of insulin (HCC); Fatigue, unspecified type Start: 06-22-2022 Refill Sonia Still on PA-C Work Phone: [facility] Comment on above: Refill Request Start: 06-08-2022 Non-patient / Non-visit Dr. Vicente Hernandez Work Phone: [facility] Start: 06-08-2022 End: 06-08-[address] Eldon Hernandez Work Phone: [facility] Work Phone: Start: 06-08-2022 End: 06-08-[address] Eldon Hernandez Work Phone: [facility]-Pulmonary Services/Neurology Start: 05-26-2022 ambulatory Sonia Still on PA-C Work Phone: [facility] [place] Start: 05-13-2022 End: 05-13-[address] Eld[facility] Hernandez [facility] Start: 05-04-2022 ambulatory Sonia Jose Rafael culver PA-C Work Phone: [facility] Comment on above: insulin coverage for meals Start: 04-29-2022 End: 04-29-2022 Emergency department patient visit Dr. Eldon Hernandez Work Phone: [facility] Start: 04-27-2022 End: 04-27-2022 Subsequent hospital visit by physician Xr [facility] Work Phone: Radiology Comment on above: Pneumonia of right l ower lobe due to methicillin resistant Staphylococcus aureus (MRSA) (HCC) [J15.212] Start: 04-23-2022 End: 04-23-2022 Patient encounter procedure Sonia Jose Rafael Jordan CAMPUZANO-C Work Phone: [facility] Comment on above: Pneumonia of right l ower lobe due to methicillin resistant Staphylococcus aureus (MRSA) (HCC) (Primary Dx); Hospital discharge follow-up; Influenza A; Type 2 diabetes mellitus with hyperglycemia, with long-term current use of insulin (HCC); Adenopathy, hilar right; Essential hypertension; Tobacco abuse Start: 04-21-2022 Telephone encounter Kyler luis APRN.MAINTENANCE WELDER Work Phone: [facility] Comment on above: Results Start: 04-19-2022 Telephone encounter Arnulfo Lux APRN.MAINTENANCE WELDER Work Phone: [facility] Comment on above: Results Start: 04-15-2022 End: 04-15-2022 Patient encounter procedure Ines Ryan APRN.MAINTENANCE WELDER Work Phone: [facility] Comment on above: Tongue plaque (Prima ry Dx) Start: 04-12-2022 Non-patient / Non-visit Dr. Vicente Hernandez Work Phone: [facility] Phys[facility] Start: 04-12-2022 Non-patient / Non-visit Dr. Vicente Hernandez Work Phone: [facility] Start: 04-11-2022 Non-patient / Non-visit Dr. Vicente Hernandez Work Phone: [facility] Start: 04-10-2022 Non-patient / Non-visit Dr. Vicente Hernandez Work Phone: [facility] Start: 04-09-2022 Non-patient / Non-visit Dr. Vicente Hernandez Work Phone: [facility] Start: 04-09-2022 Non-patient / Non-visit Dr. Vicente Hernandez Work Phone: [facility] Start: 04-09-2022 Non-patient / Non-visit Dr. Vicente Hernandez Work Phone: [facility] Start: 04-08-2022 Non-patient / Non-visit Dr. Vicente Hernandez Work Phone: [facility] Start: 04-08-2022 Non-patient / Non-visit Dr. Vicente Hernandez Work Phone: [facility] Start: 04-07-2022 End: 04-12-2022 Evaluation and management of inpatient [facility] Start: 04-01-2022 End: 04-02-2022 Emergency department patient visit [facility] Start: 01-11-2022 End: 01-11-2022 Patient encounter procedure Madhuri Sai WEB CONTENT COORDINATOR.MAINTENANCE WELDER Work Phone: [facility] [place] Comment on above: Type 2 diabetes homer itus with hyperglycemia, with long-term current use of insulin (HCC) (Primary Dx); Mixed hyperlipidemia; Recurrent UTI (urinary tract infection); Middle ear effusion, left Start: 12-30-2021 ambulatory Sonia culver PA-C Work Phone: [facility] [place] Start: 11-28-2021 End: 11-28-2021 Emergency department patient visit Dr. Eldon Hernandez Work Phone: [facility]Emergency Department Start: 10-15-2021 End: 10-15-2021 Patient encounter procedure Tracy Meyer APRN.MAINTENANCE WELDER Work Phone: [facility] Comment on above: Abscess, scalp (Prim alonso Dx) Start: 10-14-2021 End: 10-14-2021 Emergency department patient visit Dr. 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 Vicente Hernandez Work Phone: [facility] Start: 08-25-2021 End: 08-25-2021 Emergency department patient visit Dr. Eldon Hernandez Work Phone: [facility] Start: 07-15-2021 Telephone encounter Janis plascencia APRN.CNM Work Phone: OB/Gynecology Comment on above: Results Start: 07-13-2021 End: 07-13-2021 Patient encounter procedure Tracy Aguillon APRN.CNM Work Phone: OB/Gynecology Comment on above: Vaginal burning (Kiki murali Dx); Screen for STD (sexually transmitted disease); Vaginal atrophy; IUD check up Start: 06-16-2021 End: 06-16-2021 Emergency department patient visit Dr. Eldon Hernandez Work Phone: [facility] Start: 06-10-2021 End: 06-10-2021 Emergency department patient visit Dr. Eldon Hernandez Work Phone: [facility] Procedures Date Procedure Procedure Detail Performing Clinician Start: 02-27-2024 Urnls dip stick/tabl et rgnt auto w/o microscopy Lazara Melendez WEB CONTENT COORDINATOR.MAINTENANCE WELDER Work Phone: Start: 02-01-2024 Radex spine lumbosac ral 2/3 views Daphne Gresham WEB CONTENT COORDINATOR.MAINTENANCE WELDER Work Phone: Start: 09-14-2023 BACTERIAL VAGINOSIS NAAT Tracy Pal WEB CONTENT COORDINATOR.CNM Work Phone: Start: 09-14-2023 Iadna chlamydia trac homatis amplified probe tq Tracy Pal WEB CONTENT COORDINATOR.CNM Work Phone: Start: 09-14-2023 Microscopic observat ion [Identifier] in Cervix by Cyto stain Joey 2 Start: 08-30-2023 Adult depression scr eening assessment Arnulfo Lux WEB CONTENT COORDINATOR.MAINTENANCE WELDER Work Phone: Start: 06-16-2023 Plain chest X-ray Dr. Dinah Hernandez Work Phone: Start: 05-27-2023 SARS-CoV-2, Influenz a & RSV (PCR) Dr. Eldon Hernandez Work Phone: Start: 05-11-2023 Investigation of tra nsfusion reaction Dr. Eldon Hernandez Work Phone: Start: 05-11-[address] Eldon Hernandez Work Phone: Start: 04-30-2023 SARS-CoV-2, Influenz a & RSV (PCR) Start: 02-24-2023 Radex shoulder compl ete minimum 2 views Sonia Ortega PA-C Work Phone: Start: 11-17-2022 CT of head without contrast Dr. Eldon Hernandez Work Phone: Start: 10-25-2022 End: 10-25-2022 Mammography Bulk Order Provider Start: 06-29-2022 Radiologic exam chest 2 views Sonia Ortega PA-C Work Phone: Start: 04-29-2022 Plain chest X-ray Dr. Dinah Hernandez Work Phone: Start: 04-27-2022 Radiologic exam chest 2 views M Jose Rafael Jordan CHAIREZ Work Phone: Start: 04-10-2022 Plain chest X-ray Dr. Dinah Hernandez Work Phone: Start: 04-08-2022 CT angiography of ch est with contrast Dr. Eldon Hernandez Work Phone: Start: 04-07-2022 Plain chest X-ray Start: 04-01-2022 Plain chest X-ray Start: 11-28-[address] Peter Hernandez Work Phone: Start: 11-28-2021 X-ray of both feet Dr. Eldon Hernandez Work Phone: Start: 10-01-2021 Adult depression scr eening assessment TAWANA Ortega PA-C Work Phone: Start: 06-16-2021 Plain chest X-ray Dr. Dinah Hernandez Work Phone: Start: 05-31-2019 Catheterization of left heart JOHN HARVEY WEB CONTENT COORDINATOR-MAINTENANCE WELDER Start: 05-01-2019 Adult depression scr eening assessment Tracy Aguillon APRN.CNM Work Phone: Start: 05-01-2019 Electrocardiogram Start: 04-30-2019 Electrocardiogram Bacteria Detection (PCR) Dr. Eldon Hernandez Work Phone: Bacteria Detection (PCR) Dr. Eldon Hernandez Work Phone: Bacteria identified in Blood by Culture Dr. Eldon Hernandez Work Phone: Bacteria identified in Blood by Culture Dr. Eldon Hernandez Work Phone: section JOHN BASSAM [place] WEB CONTENT COORDINATOR-MAINTENANCE WELDER Comment on above: [address] Eldon Hernandez Work Phone: Cholecystectomy JOHN HARVEY WEB CONTENT COORDINATOR-MAINTENANCE WELDER Investigation of tra nsfusion reaction Dr. Eldon Hernandez Work Phone: Investigation of tra nsfusion reaction Dr. Eldon Hernandez Work Phone: Legionella pneumophi la antigen assay Dr. Eldon Hernandez Work Phone: Legionella pneumophi la antigen assay Dr. Eldon Hernandez Work Phone: Respiratory microbial culture Dr. Eldon Hernandez Work Phone: Respiratory microbial culture Dr. Eldon Hernandez Work Phone: SARS-CoV-2 & FLU Ant igen (Rapid) SARS-CoV-2 & FLU Ant igen (Rapid) Dr. Eldon Hernandez Work Phone: Streptococcus pneumo niae Antigen (M Dr. Eldon Hernandez Work Phone: Streptococcus pneumo niae Antigen (M Dr. Eldon Hernandez Work Phone: Urine culture Dr. Eldon Mccall Work Phone: Urine culture Dr. Eldon Mccall Work Phone: Viral antigen assay Dr. Brennen croft Mary Work Phone: Viral antigen assay Dr. Brennen croft [place] Work Phone: Plan of Treatment Date Care Activity Detail Author Start: 2030 Zoster Vaccines (1 of 2) Zoster Vaccines (1 of 2) [facility] Start: 06-12-2027 Diabetes mellitus screening Diabetes Screening [facility] Start: 09-13-2026 Screening for malignant neoplasm of cervix [facility] Start: 11-05-2025 Annual PCP Team Chronic Disease Visit Annual PCP Team Chronic Disease Visit [facility] Start: 08-09-2025 Annual PCP Team Chronic Disease Visit Annual PCP Team Chronic Disease Visit [facility] Start: 08-09-2025 BP Controlled (<130/80) BP Controlled (<130/80) [facility] Start: 07-11-2025 BP Controlled (<130/80) BP Controlled (<130/80) [facility] Start: 06-12-2025 Annual PCP Team Chronic Disease Visit Annual PCP Team Chronic Disease Visit [facility] Start: 06-12-2025 BP Controlled (<130/80) BP Controlled (<130/80) [facility] Start: 06-12-2025 Diabetic foot examination Diabetic Foot Exam [facility] Start: 06-12-2025 Hepatitis B screening Urine Albumin:Creatinine Ratio [facility] Start: 06-12-2025 Hepatitis B surface antibody level LDL Cholesterol [facility] Start: 06-12-2025 Pneumococcal vaccination Pneumococcal Vaccine (1 of 2 - PCV) [facility] Comment on above: Postponed from 07/25/1999 (Declined at t his time) Start: 06-12-2025 Screening for malignant neoplasm of breast Mammogram Screening [facility] Comment on above: Postponed from 10/26/2023 (Declined at t his time) Start: 05-29-2025 Annual PCP Team Chronic Disease Visit Annual PCP Team Chronic Disease Visit [facility] Start: 05-29-2025 BP Controlled (<130/80) BP Controlled (<130/80) [facility] Start: 02-26-2025 Annual PCP Team Chronic Disease Visit Annual PCP Team Chronic Disease Visit [facility] Start: 02-26-2025 BP Controlled (<130/80) BP Controlled (<130/80) [facility] Start: 02-05-2025 Hepb vaccine adult 3 dose schedule for im use HEP B VACCINE, 3-DOSE, AGE 20+ YR (ENGERIX-B, RECOMBIVAX HB) Immunization/Injection Routine Encounter for immunization Expected: 02/05/2025 [facility] Comment on above: Expected: 02/05/2025 Start: 12-25-2024 End: 12-25-2024 ambulatory 12/25/2024 11:00 AM EDT Results Only [facility] [address] [place] [address] [facility] Start: 12-24-2024 End: 03-25-2025 Comprehensive metabolic 2000 panel - Serum or Plasma COMPREHENSIVE METABOLIC PANEL Lab Routine Poorly controlled type 2 diabetes mellitus (HCC) Expected: 12/24/2024, Expires: 03/25/2025 [facility] Work Phone: Comment on above: Expected: 12/24/2024, Expires: Start: 12-24-2024 End: 03-25-2025 Hemoglobin A1c in Blood HEMOGLOBIN A1C Lab Routine Poorly controlled type 2 diabetes mellitus (HCC) Expected: 12/24/2024, Expires: 03/25/2025 [facility] Comment on above: Expected: 12/24/2024, Expires: Start: 12-24-2024 Influenza [facility] Start: 12-24-2024 End: 03-25-2025 LIPID PANEL, NONFASTING LIPID PANEL, NONFASTING Lab Routine Poorly controlled type 2 diabetes mellitus (HCC) Expected: 12/24/2024, Expires: 03/25/2025 [facility] Comment on above: Expected: 12/24/2024, Expires: Start: 12-24-2024 End: 03-25-2025 Microalbumin/Creatinine [Mass Ratio] in Urine ALBUMIN/CREATININE RATIO, URINE Lab Routine Poorly controlled type 2 diabetes mellitus (HCC) Expected: 12/24/2024, Expires: 03/25/2025 [facility] Comment on above: Expected: 12/24/2024, Expires: Start: 12-22-2024 BP Controlled (<130/80) BP Controlled (<130/80) [facility] Start: 12-14-2024 BP Controlled (<130/80) BP Controlled (<130/80) [facility] Start: 12-14-2024 Hepatitis B surface antibody level LDL Cholesterol [facility] Start: 12-10-2024 End: 12-10-2024 Patient encounter procedure 12/10/2024 1:20 PM EDT Office Visit Family Shanta [facility] [address] [place] [id number] Lazara Melendez APRN.MAINTENANCE WELDER [address] [facility] [place] [phone] 6 month exam Family Shanta [facility] Comment on above: 6 month exam Start: 11-12-2024 End: 11-12-2024 Patient encounter procedure 11/12/2024 1:00 PM EDT Office Visit General [facility] [address] [facility] [address] [place] [phone] Jacquie Davis MD [address] [place] [id number] Boil of buttock [L02.32] General Surgery Comment on above: Boil of buttock [L02.32] Start: 11-10-2024 BP Controlled (<130/80) BP Controlled (<130/80) [facility] Start: 10-22-2024 Influenza vaccination Influ[facility] Vaccine (#[facility] Comment on above: Postponed from 12/25/2023 (Declined at t his time) Start: 10-10-2024 End: 10-10-2024 Patient encounter procedure 10/10/2024 2:45 PM EDT Office Visit Endocrinology [address] [place], [place] [address] Adrienne Locke APRN.MAINTENANCE WELDER [address] [place] [address] 3 month f/u Endocrinology Comment on above: 3 month f/u Start: 09-13-2024 BP Controlled (<130/80) BP Controlled (<130/80) [facility] Start: 09-09-2024 Hemoglobin A1c measurement HbA1C [facility] Start: 09-08-2024 Hepb vaccine adult 3 dose schedule for im use HEP B VACCINE, 3-DOSE, AGE 20+ YR (ENGERIX-B, RECOMBIVAX HB) Immunization/Injection Routine Encounter for immunization Expected: 09/08/2024 [facility] Work Phone: Comment on above: Expected: 09/08/2024 Start: 09-07-2024 End: 09-07-2024 Patient encounter procedure 09/07/2024 12:40 PM EDT Office Visit Family Medicine [place] [address] [place], [place] [phone] Lazara Melendez APRN.MAINTENANCE WELDER [address] [facility] [place] [phone] 1 month follow up, Hep B 2 Family Medicine [facility] Comment on above: 1 month follow up, Hep B 2 Start: 09-07-2024 End: 09-07-2024 ambulatory 09/07/2024 8:00 AM EDT [facility] Endocrinology [address] [place] [phone] [place] [address] [place] [address] Losing weight Endocrinology Comment on above: Losing weight Start: 09-06-2024 Hepatitis B Vaccine (2 of 3 - 19+ 3-dose series) Hepatitis B Vaccine (2 of 3 - 19+ 3-dose series) [facility] Start: 09-06-2024 Hepatitis B Vaccines (2 of 3 - 19+ 3-dose series) Hepatitis B Vaccines (2 of 3 - 19+ 3-dose series) [facility] Start: 08-29-2024 Depression Screening Depression Screening [facility] Start: 08-29-2024 Screening for malignant neoplasm of cervix Pap Testing [facility] Comment on above: Postponed from 02/07/2021 (Declined at t his time) Start: 08-29-2024 Urine microalbumin profile DTaP,Tdap,Td Vaccine (2 - Td or Tdap) [facility] Comment on above: Postponed from 08/14/2023 (Declined at t his time) Start: 08-10-2024 End: 08-10-2024 Patient encounter procedure 08/10/2024 9:30 AM EDT Appointment Mammogram [address] [place] [address] Mammogram Start: 07-11-2024 End: 10-10-2024 Glutamate decarboxylase 65 Ab [Units/volume] in Serum [facility] Comment on above: Expected: 07/11/2024, Expires: Start: 07-11-2024 End: 10-10-2024 Pancreatic islet cell Ab [Titer] in Serum [facility] Comment on above: Expected: 07/11/2024, Expires: 5 Start: 07-11-2024 End: 07-11-2024 Patient encounter procedure 07/11/2024 1:15 PM EDT Office Visit Endocrinology [address] [place] [address] Adrienne Locke APRN.MAINTENANCE WELDER [address] [place] [address] Type 2 diabetes mellitus with hyperglycemia, with long-term current use of insulin (HCC) [E11.65, Z79.4] Endocrinology Comment on above: Type 2 diabetes mellitus with hyperglyce joe, with long-term current use of insulin (HCC) [E11.65, Z79.4] Start: 06-12-2024 End: 09-11-2024 25-hydroxyvitamin D3 [Mass/volume] in Serum or Plasma [facility] Comment on above: Expected: 06/12/2024, Expires: Start: 06-12-2024 End: 09-11-2024 CBC W Auto Differential panel - Blood [facility] Work Phone: Comment on above: Expected: 06/12/2024, Expires: Start: 06-12-2024 End: 09-11-2024 Cobalamin (Vitamin B12) [Mass/volume] in Serum or Plasma [facility] Comment on above: Expected: 06/12/2024, Expires: Start: 06-12-2024 End: 09-11-2024 Comprehensive metabolic 2000 panel - Serum or Plasma [facility] Comment on above: Expected: 06/12/2024, Expires: Start: 06-12-2024 End: 09-11-2024 LIPID PANEL, NONFASTING [facility] Comment on above: Expected: 06/12/2024, Expires: Start: 06-12-2024 End: 09-11-2024 Magnesium [Mass/volume] in Serum or Plasma [facility] Comment on above: Expected: 06/12/2024, Expires: Start: 06-12-2024 End: 09-11-2024 Thyrotropin [Units/volume] in Serum or Plasma [facility] Comment on above: Expected: 06/12/2024, Expires: Start: 06-12-2024 End: 06-12-2024 Patient encounter procedure 06/12/2024 1:20 PM EST Office Visit Family Medicine [place] [address] [place] [address] Lazara Melendez APRN.MAINTENANCE WELDER [address] [place] [address] 2 week follow up [facility] Medicine [place] Comment on above: 2 week follow up Start: 05-29-2024 End: 05-29-2024 Patient encounter procedure [facility] Shanta Hutton Comment on above: 3 month f/u Start: 05-29-2024 End: 08-28-2024 Hemoglobin A1c in Blood HEMOGLOBIN A1C Lab Routine Expected: 05/29/2024, Expires: 08/28/2024 [facility] Comment on above: Expected: 05/29/2024, Expires: Start: 05-29-2024 End: 08-28-2024 Microalbumin/Creatinine [Mass Ratio] in Urine ALBUMIN/CREATININE RATIO, URINE Lab Routine Expected: 05/29/2024, Expires: 08/28/2024 [facility] Work Phone: Comment on above: Expected: 05/29/2024, Expires: Start: 05-15-2024 End: 08-14-2024 Hepatitis B virus surface Ag [Presence] in Serum [facility] Comment on above: Expected: 05/15/2024, Expires: Start: 05-15-2024 End: 08-14-2024 Hepatitis C virus Ab [Presence] in Serum [facility] Comment on above: Expected: 05/15/2024, Expires: Start: 05-15-2024 End: 08-14-2024 HIV 1+2 Ab [Presence] in Serum or Plasma by Immunoassay [facility] Comment on above: Expected: 05/15/2024, Expires: Start: 05-15-2024 End: 08-14-2024 SYPHILIS TREPONEMAL W/REFLEX [facility] Work Phone: Comment on above: Expected: 05/15/2024, Expires: Start: 05-10-2024 Annual PCP Team Chronic Disease Visit Annual PCP Team Chronic Disease Visit [facility] Start: 04-05-2024 End: 04-05-2024 Patient encounter procedure Podiatry Comment on above: Ingrown toenail [L60.0] Start: 03-20-2024 End: 03-20-2024 ambulatory 03/20/2024 12:00 PM EST OT/PT/Speech Visit [facility] Physical Therapy [address] [place] [address] Tracy Celaya, PT Degeneration of intervertebral disc of lumbar region with discogenic back pain a... [facility] Comment on above: Degeneration of intervertebral disc of l umbar region with discogenic back pain a... Start: 03-16-2024 Hemoglobin A1c measurement HbA1C [facility] Start: 03-02-2024 End: 03-02-2024 Patient encounter procedure 03/02/2024 9:00 AM EST Office Visit Pain Management [address] [address] Humberto Damon MD [address] [facility] [id number] [place] [address] Paresthesia of bilateral legs [R20.2] Pain Management Comment on above: Paresthesia of bilateral legs [R20.2] Start: 03-01-2024 End: 03-01-2024 Patient encounter procedure Family Medicine [facility] Comment on above: 6 month follow up Start: 02-25-2024 Annual PCP Team Chronic Disease Visit Annual PCP Team Chronic Disease Visit [facility] Start: 02-25-2024 Pneumococcal vaccination [place] [facility] Comment on above: Postponed from 1986 (Declined at t his time) Start: 01-31-2024 End: 05-01-2024 Cobalamin (Vitamin B12) [Mass/volume] in Serum or Plasma VITAMIN B12 Lab Routine Paresthesia of bilateral legs Expected: 01/31/2024, Expires: 05/01/2024 [facility] Comment on above: Expected: 01/31/2024, Expires: Start: 01-31-2024 End: 05-01-2024 IMMUNOFIXATION SCREEN, SERUM IMMUNOFIXATION SCREEN, SERUM Lab Routine Paresthesia of bilateral legs Expected: 01/31/2024, Expires: 05/01/2024 [facility] Comment on above: Expected: 01/31/2024, Expires: Start: 01-31-2024 End: 05-01-2024 Pyridoxine [Mass/volume] in Serum or Plasma VITAMIN B6/PYRIDOXIN Lab Routine Paresthesia of bilateral legs Expected: 01/31/2024, Expires: 05/01/2024 [facility] Comment on above: Expected: 01/31/2024, Expires: Start: 01-31-2024 End: 01-31-2024 Patient encounter procedure 01/31/2024 9:00 AM EDT Office Visit Neurology [address] [address] Daphne Gresham APRN.MAINTENANCE WELDER [address] [place] [address] foot numbness Neurology Comment on above: foot numbness Start: 01-12-2024 End: 01-12-2024 Patient encounter procedure 01/12/2024 11:00 AM EDT Office Visit Family [facility] [place] [address] [place] [address] Lazara Melendez WEB CONTENT COORDINATOR.MAINTENANCE WELDER [address] [place] [address] legs and feet hurt Family [facility] [place] Comment on above: legs and feet hurt Start: 12-29-2023 End: 12-29-2023 Patient encounter procedure 12/29/2023 3:00 PM EDT Office Visit Family [facility] [place] [address] [place] [address] Lazara Melendez WEB CONTENT COORDINATOR.MAINTENANCE WELDER [address] [place] [address] 2 week follow up [facility] [place] Comment on above: 2 week follow up Start: 12-25-2023 COVID-19 Vaccine ( season) COVID-19 Vaccine ( season) [facility] Start: 12-25-[address] [facility] Start: 12-15-2023 End: 03-15-2024 Comprehensive metabolic 2000 panel - Serum or Plasma [facility] Work Phone: Comment on above: Expected: 12/15/2023, Expires: Start: 12-15-2023 End: 03-15-2024 Hemoglobin A1c in Blood [facility] Comment on above: Expected: 12/15/2023, Expires: Start: 12-15-2023 End: 03-15-2024 LIPID PANEL, NONFASTING [facility] Comment on above: Expected: 12/15/2023, Expires: Start: 12-15-2023 End: 03-15-2024 Magnesium [Mass/volume] in Serum or Plasma [facility] Comment on above: Expected: 12/15/2023, Expires: Start: 12-15-2023 End: 03-15-2024 Microalbumin/Creatinine [Mass Ratio] in Urine ALBUMIN/CREATININE RATIO, URINE Lab Routine Type 2 diabetes mellitus with hyperglycemia, with long-term current use of insulin (HCC) Expected: 12/15/2023, Expires: 03/15/2024 [facility] Comment on above: Expected: 12/15/2023, Expires: Start: 12-15-2023 End: 03-15-2024 Thyrotropin [Units/volume] in Serum or Plasma [facility] Comment on above: Expected: 12/15/2023, Expires: 4 Start: 11-17-2023 ANNUAL PCP TEAM CHRONIC DISEASE VISIT ANNUAL PCP TEAM CHRONIC DISEASE VISIT [facility] Start: 11-11-2023 End: 11-25-2023 COVID & INFLUENZA A/B & RSV NAAT, ROUTINE COVID & INFLUENZA A/B & RSV NAAT, ROUTINE Microbiology Routine Close exposure to COVID-19 virus Expected: 11/11/2023, Expires: 11/25/2023 [facility] Work Phone: Comment on above: Expected: 11/11/2023, Expires: Start: 10-31-2023 End: 10-31-2023 Patient encounter procedure 10/31/2023 10:10 AM EDT Appointment Mammogram [address] [place] [address] Encounter for gynecological examination (general) (routine) with abnormal findings [Z01.411] Mammogram Comment on above: Encounter for gynecological examination (general) (routine) with abnormal findings [Z01.411] Start: 10-26-[address] [facility] Start: 10-26-2023 Screening for malignant neoplasm of breast [facility] Start: 10-24-2023 End: 10-24-2023 Patient encounter procedure 10/24/2023 3:30 PM EDT Office Visit OB/Gynecology [address] [place] [address] Tracy Aguillon APRN.CNM [address] [place] [address] ANNUAL OB/Gynecology Comment on above: ANNUAL Start: 10-23-2023 Influenza vaccination Influenza Vaccine (#1) [place] [facility] Comment on above: Postponed from 12/24/2022 (Declined at t his time) Start: 10-12-2023 3 comp foot exam completed DIABETIC FOOT EXAM [facility] Start: 10-12-2023 ANNUAL PCP TEAM CHRONIC DISEASE VISIT ANNUAL PCP TEAM CHRONIC DISEASE VISIT [facility] Start: 10-12-2023 Diabetic foot examination Diabetic Foot Exam [facility] Start: 09-27-2023 End: 09-27-2023 Patient encounter procedure 09/27/2023 1:45 PM EDT Office Visit OB/Gynecology [address] [place] [address] Tracy Aguillon APRN.CNM [address] [place] [address] IUD removal and re- insertion OB/Gynecology Comment on above: IUD removal and re- insertion Start: 09-14-2023 End: 09-14-2023 Patient encounter procedure 09/14/2023 2:45 PM EDT Office Visit OB/Gynecology [address] [place] [address] Tracy Aguillon APRN.[facility] [address] [place] [address] annual / std check OB/Gynecology Comment on above: annual / std check Start: 09-14-2023 End: 12-14-2023 Hepatitis B virus surface Ag [Presence] in Serum HEPATITIS B SURFACE ANTIGEN Lab Routine Screening for STDs (sexually transmitted diseases) Expected: 09/14/2023, Expires: 12/14/2023 [facility] Comment on above: Expected: 09/14/2023, Expires: Start: 09-14-2023 End: 12-14-2023 Hepatitis C virus Ab [Presence] in Serum HEPATITIS C ANTIBODY IA WITH CONFIRMATION Lab Routine Screening for STDs (sexually transmitted diseases) Expected: 09/14/2023, Expires: 12/14/2023 [facility] Comment on above: Expected: 09/14/2023, Expires: Start: 09-14-2023 End: 12-14-2023 HIV 1+2 Ab [Presence] in Serum or Plasma by Immunoassay HIV 1/2 COMBO WITH REFLEX TO DIFFERENTIATION Lab Routine Screening for STDs (sexually transmitted diseases) Expected: 09/14/2023, Expires: 12/14/2023 [facility] Comment on above: Expected: 09/14/2023, Expires: Start: 09-14-2023 End: 12-14-2023 SYPHILIS TOTAL W/REFLEX SYPHILIS TOTAL W/REFLEX Lab Routine Screening for STDs (sexually transmitted diseases) Expected: 09/14/2023, Expires: 12/14/2023 [facility] Comment on above: Expected: 09/14/2023, Expires: Start: 09-05-2023 End: 09-05-2023 Patient encounter procedure 09/05/2023 10:40 AM EDT Office Visit Family Medicine [place] [address] [place] [address] Sonia Ortega PA-C [address] [place] [address] discuss thyroid lab results, asked pt to have results faxed to office Family Medicine [place] Comment on above: discuss thyroid lab results, asked pt to have results faxed to office Start: 08-31-2023 End: 08-31-2023 Patient encounter procedure 08/31/2023 12:00 PM EDT Office Visit [facility] [address] [place] [address] Bilateral calf pain [M79.661, M79.662] [facility] Comment on above: Bilateral calf pain [M79.661, M79.662] Start: 08-30-2023 End: 11-29-2023 Hemoglobin A1c in Blood HEMOGLOBIN A1C Lab Routine Type 2 diabetes mellitus with hyperglycemia, with long-term current use of insulin (HCC) Expected: 08/30/2023, Expires: 11/29/2023 [facility] Work Phone: Comment on above: Expected: 08/30/2023, Expires: 4 Start: 08-30-2023 End: 11-29-2023 Microalbumin/Creatinine [Mass Ratio] in Urine ALBUMIN/CREATININE RATIO, URINE Lab Routine Type 2 diabetes mellitus with hyperglycemia, with long-term current use of insulin (HCC) Expected: 08/30/2023, Expires: 11/29/2023 [facility] Comment on above: Expected: 08/30/2023, Expires: 4 Start: 08-30-2023 End: 08-29-2024 US Lower extremity veins - bilateral US LEG VEIN DVT [facility] Vascular Lab STAT Bilateral calf pain Expected: 08/30/2023, Expires: 08/29/2024 [facility] Comment on above: Expected: 08/30/2023, Expires: 5 Start: 08-14-2023 DTaP/Tdap/Td Vaccines (2 - Td or Tdap) DTaP/Tdap/Td Vaccines (2 - Td or Tdap) [facility] Start: 08-14-[address] [facility] Start: 06-29-2023 ANNUAL PCP TEAM CHRONIC DISEASE VISIT ANNUAL PCP TEAM CHRONIC DISEASE VISIT [facility] Start: 06-29-2023 BP CONTROLLED (<130/80) BP CONTROLLED (<130/80) [facility] in Start: 06-17-2023 [facility] Start: 06-16-2023 [facility] Start: 04-30-2023 [facility] Start: 04-27-2023 Hepatitis B screening URINE ALBUMIN:CREATININE RATIO [facility] Start: 04-25-2023 Depression Assessment Depression Assessment [facility] Start: 04-23-2023 ANNUAL PCP TEAM CHRONIC DISEASE VISIT ANNUAL PCP TEAM CHRONIC DISEASE VISIT [facility] Start: 02-07-2023 HPV TESTING HPV TESTING [facility] Start: 02-07-2023 Screening for malignant neoplasm of cervix HPV Testing [facility] Start: 01-11-2023 ANNUAL PCP TEAM CHRONIC DISEASE VISIT ANNUAL PCP TEAM CHRONIC DISEASE VISIT [facility] Start: 01-11-2023 BP CONTROLLED (<130/80) BP CONTROLLED (<130/80) [facility] Start: 12-24-[address] [facility] Start: 11-01-2022 End: 01-01-2023 Comprehensive metabolic 2000 panel - Serum or Plasma COMP METABOLIC PANEL Lab Routine Type 2 diabetes mellitus with hyperglycemia, with long-term current use of insulin (HCC) Expected: 11/01/2022, Expires: 01/01/2023 [facility] Work Phone: Comment on above: Expected: 11/01/2022, Expires: 3 Start: 11-01-2022 End: 01-01-2023 Hemoglobin A1c in Blood HGB A1C Lab Routine Type 2 diabetes mellitus with hyperglycemia, with long-term current use of insulin (HCC) Expected: 11/01/2022, Expires: 01/01/2023 [facility] Work Phone: Comment on above: Expected: 11/01/2022, Expires: 3 Start: 10-01-2022 3 comp foot exam completed DIABETIC FOOT EXAM [facility] Start: 10-01-2022 Adult depression screening assessment DEPRESSION SCREENING [facility] Start: 10-01-2022 ANNUAL PCP TEAM CHRONIC DISEASE VISIT ANNUAL PCP TEAM CHRONIC DISEASE VISIT [facility] Start: 10-01-2022 BP CONTROLLED (<130/80) BP CONTROLLED (<130/80) [facility] Start: 10-01-2022 COVID-19 VACCINE (#1) COVID-19 VACCINE (#1) [facility] Comment on above: Postponed from 1985 (Declined at t his time) Postponed from 01/23 (Declined at this time) Start: 09-23-2022 Hepatitis C antibody, confirmatory test DILATED RETINAL EXAM [facility] Comment on above: Postponed from 11/24/2019 (Currently Treva eduled) Start: 07-26-2022 Hemoglobin A1c measurement HbA1C [facility] Start: 07-26-2022 Hemoglobin A1c/Hemoglobin.total in Blood HBA1C [facility] Start: 2022 PAP TESTING PAP TESTING [facility] Start: 07-13-2022 BP CONTROLLED (<130/80) BP CONTROLLED (<130/80) [facility] Start: 06-28-2022 End: 08-28-2022 C reactive protein [Mass/volume] in Serum or Plasma [facility] Work Phone: Comment on above: Expected: 06/28/2022, Expires: 3 Start: 06-28-2022 End: 08-28-2022 CBC W Auto Differential panel - Blood CBC + DIFF Lab Routine Lupus (HCC) Type 2 diabetes mellitus with hyperglycemia, with long-term current use of insulin (HCC) Expected: 06/28/2022, Expires: 08/28/2022 [facility] Work Phone: Comment on above: Expected: 06/28/2022, Expires: 3 Start: 06-28-2022 End: 08-28-2022 Comprehensive metabolic 2000 panel - Serum or Plasma COMP METABOLIC PANEL Lab Routine Lupus (HCC) Type 2 diabetes mellitus with hyperglycemia, with long-term current use of insulin (HCC) Expected: 06/28/2022, Expires: 08/28/2022 [facility] Work Phone: Comment on above: Expected: 06/28/2022, Expires: 3 Start: 04-29-2022 [facility] Start: 04-25-2022 DEPRESSION ASSESSMENT DEPRESSION ASSESSMENT [facility] Start: 04-15-2022 End: 06-15-2022 Fungus identified in Unspecified specimen by Culture [facility] Work Phone: Comment on above: Expected: 04/15/2022, Expires: 3 Start: 04-14-2022 Blood chemistry [facility] Work Phone: Start: 04-13-2022 Blood chemistry [facility] Work Phone: Start: 04-12-2022 [facility] Start: 04-12-2022 Patient discharge [facility] Start: 04-11-2022 Provision of activity privileges [facility] Start: 04-09-2022 Consultation [facility] Start: 04-09-2022 [facility] Start: 04-08-2022 Methicillin resistant Staphylococcus aureus screening test [facility] Start: 04-08-2022 Consultation [facility] Start: 04-07-2022 Assessment of risk of venous thromboembolism [facility] Start: 04-07-2022 Care regimes management [facility] Start: 04-07-2022 Insertion of catheter into peripheral vein [facility] Start: 04-07-2022 Measuring intake and output [facility] Start: 04-07-2022 Oxygen therapy [facility] Start: 04-07-2022 Providing care according to standard [facility] Start: 04-07-2022 Provision of activity privileges [facility] Start: 04-07-2022 Referral to occupational therapist [facility] Start: 04-07-2022 Referral to service [facility] Start: 04-07-2022 Following clinical pathway protocol [facility] Start: 04-07-2022 End: 04-07-2022 [facility] Start: 04-07-2022 Verification routine [facility] Work Phone: Start: 04-07-2022 End: 04-07-2022 Blood culture [facility] Work Phone: Start: 04-07-2022 Admission procedure [facility] Start: 04-07-2022 Respiratory secretion precautions [facility] Start: 04-07-2022 Patient referral to dietitian [facility] Start: 04-01-2022 [facility] Start: 01-11-2022 End: 03-13-2022 CBC panel - Blood by Automated count CBC Lab Routine Type 2 diabetes mellitus with hyperglycemia, with long-term current use of insulin (HCC) Expected: 01/11/2022, Expires: 03/13/2022 [facility] Work Phone: Comment on above: Expected: 01/11/2022, Expires: 2 Start: 01-11-2022 End: 03-13-2022 Comprehensive metabolic 2000 panel - Serum or Plasma COMP METABOLIC PANEL Lab Routine Type 2 diabetes mellitus with hyperglycemia, with long-term current use of insulin (HCC) Expected: 01/11/2022, Expires: 03/13/2022 [facility] Work Phone: Comment on above: Expected: 01/11/2022, Expires: 2 Start: 01-11-2022 End: 03-13-2022 Hemoglobin A1c in Blood HGB A1C Lab Routine Type 2 diabetes mellitus with hyperglycemia, with long-term current use of insulin (HCC) Expected: 01/11/2022, Expires: 03/13/2022 [facility] Work Phone: Comment on above: Expected: 01/11/2022, Expires: 2 Start: 01-11-2022 End: 03-13-2022 Lipid 1996 panel - Serum or Plasma LIPID PANEL BASIC Lab Routine Type 2 diabetes mellitus with hyperglycemia, with long-term current use of insulin (HCC) Expected: 01/11/2022, Expires: 03/13/2022 [facility] Work Phone: Comment on above: Expected: 01/11/2022, Expires: 2 Start: 12-24-[address] [facility] Start: 10-01-2021 End: 12-01-2021 ALBUMIN/CREAT RATIO RND UR ALBUMIN/CREAT RATIO RND UR Lab Routine Type 2 diabetes mellitus with hyperglycemia, with long-term current use of insulin (HCC) Expected: 10/01/2021, Expires: 12/01/2021 [facility] Work Phone: Comment on above: Expected: 10/01/2021, Expires: 2 Start: 10-01-2021 End: 12-01-2021 CBC panel - Blood by Automated count CBC Lab Routine Essential hypertension Type 2 diabetes mellitus with hyperglycemia, with long-term current use of insulin (HCC) Expected: 10/01/2021, Expires: 12/01/2021 [facility] Work Phone: Comment on above: Expected: 10/01/2021, Expires: 2 Start: 10-01-2021 End: 12-01-2021 Comprehensive metabolic 2000 panel - Serum or Plasma COMP METABOLIC PANEL Lab Routine Essential hypertension Expected: 10/01/2021, Expires: 12/01/2021 [facility] Work Phone: Comment on above: Expected: 10/01/2021, Expires: 2 Start: 10-01-2021 End: 12-01-2021 Hemoglobin A1c in Blood HGB A1C Lab Routine Type 2 diabetes mellitus with hyperglycemia, with long-term current use of insulin ([facility]) Expected: 10/01/2021, Expires: 12/01/2021 [facility] Work Phone: Comment on above: Expected: 10/01/2021, Expires: 2 Start: 10-01-2021 End: 12-01-2021 Lipid 1996 panel - Serum or Plasma LIPID PANEL BASIC Lab Routine Mixed hyperlipidemia Expected: 10/01/2021, Expires: 12/01/2021 [facility] Work Phone: Comment on above: Expected: 10/01/2021, Expires: 2 Start: 06-10-2021 Incision & drainage abscess simple/single DRAINAGE OF SKIN ABSCESS [facility] Work Phone: Start: 06-09-2021 ANNUAL PCP TEAM CHRONIC DISEASE VISIT ANNUAL PCP TEAM CHRONIC DISEASE VISIT [facility] Start: 04-25-2021 DEPRESSION ASSESSMENT DEPRESSION ASSESSMENT [facility] Start: 03-29-2021 Hepatitis B surface antibody level LDL CHOLESTEROL [facility] Start: 02-07-2021 PAP TESTING PAP TESTING [facility] Start: 02-07-2021 Screening for malignant neoplasm of cervix Pap Testing [facility] Start: 12-24-2020 Influenza vaccination INFLUENZA (#1) [facility] Start: 10-03-2020 Hemoglobin A1c/Hemoglobin.total in Blood HBA1C [facility] Start: [address] [facility] Start: 05-03-2020 3 comp foot exam completed DIABETIC FOOT EXAM [facility] Start: 05-01-2020 Adult depression screening assessment DEPRESSION SCREENING [facility] Start: 11-24-2019 Glaucoma screening Dilated Retinal Exam [facility] Start: 11-24-2019 Hepatitis C antibody, confirmatory test DILATED RETINAL EXAM [facility] Start: 07-26-2018 Hepatitis B screening URINE ALBUMIN:CREATININE RATIO [facility] Start: 2010 Zoledronic acid therapy Alpha-[address] [facility] Start: 07-25-2007 HPV Vaccines (1 - 3-dose standard series) HPV Vaccines (1 - 3-dose standard series) [facility] Start: 2001 Screening for malignant neoplasm of cervix HPV/Cotest [facility] Start: 07-25-1999 HEPATITIS B (1 of 3 - Risk 3-dose series) HEPATITIS B (1 of 3 - Risk 3-dose series) [facility] Start: 07-25-1999 Hepatitis B Vaccine (1 of 3 - 19+ 3-dose series) Hepatitis B Vaccine (1 of 3 - 19+ 3-dose series) [facility] Start: 07-25-1999 Pneumococcal vaccination Pneumococcal Vaccine (1 of 2 - PCV) [facility] Start: 07-25-1999 Pneumococcal Vaccine: Pediatrics and At-Risk Adult Patients (1 of 2 - PCV) Pneumococcal Vaccine: Pediatrics and At-Risk Adult Patients (1 of 2 - PCV) [facility] Start: 1998 BP CONTROLLED (<130/80) BP CONTROLLED (<130/80) [facility] Start: 1998 Hepatitis C screening Hepatitis C Screening [facility] Start: [address] [facility] Start: 1996 ONE PNEUMOVAX PRIOR TO AGE 65 ONE PNEUMOVAX PRIOR TO AGE 65 [facility] Start: 1986 PNEUMOCOCCAL (1 - PCV) PNEUMOCOCCAL (1 - PCV) [facility] Start: 1986 Pneumococcal vaccination Pneumococcal Vaccine (1 of 2 - PCV) [facility] Start: 1985 COVID-19 VACCINE (1) COVID-19 VACCINE (1) [facility] Start: 1981 MMR Vaccines (1 of 1 - Standard series) MMR Vaccines (1 of 1 - Standard series) [facility] Start: 01-23-1981 COVID-19 VACCINE (#1) COVID-19 VACCINE (#1) [facility] Start: 1980 HEPATITIS B (1 of 3 - 3-dose series) HEPATITIS B (1 of 3 - 3-dose series) [facility] Start: 1980 Hepatitis B Vaccine (1 of 3 - 3-dose series) Hepatitis B Vaccine (1 of 3 - 3-dose series) [facility] Start: 1980 HIV screening HIV Screening [facility] Start: 1980 Lipid panel Lipid Panel [facility] Start: 1980 Yearly Adult Physical Yearly Adult Physical [facility] Bacteria identified in Blood by Culture Blood Culture [facility] Work Phone: Bacteria identified in Urine by Culture URINE CULTURE Microbiology Routine Dysuria 02/27/2024 2:33 PM EST [facility] Work Phone: BACTERIAL VAGINOSIS AMPLIFICATION BACTERIAL VAGINOSIS AMPLIFICATION Lab Routine Vaginal burning Screen for STD (sexually transmitted disease) 07/13/2021 11:17 AM EDT [facility] Work Phone: BACTERIAL VAGINOSIS NAAT BACTERI AL VAGINOSIS NAAT Lab Routine Exposure to sexually transmitted disease (STD) 05/15/2024 2:[address] [facility] Bilirubin measuremen t, urine [facility] Work Phone: Blood culture [facility] Work Phone: LORENZO / TRICHOMONA S AMPLIFICATION LORENZO / TRICHOMONAS AMPLIFICATION Lab Routine Vaginal burning Screen for STD (sexually transmitted disease) 07/13/2021 11:17 AM EDT [facility] Work Phone: LORENZO/TRICHOMONAS NAAT LORENZO /TRICHOMONAS NAAT Lab Routine Exposure to sexually transmitted disease (STD) 05/15/2024 2:[address] [facility] Chlamydia trachomatis+Neisseria gonorrhoeae DNA [Presence] in Unspecified specimen by KERRY with probe detection GC/CHLAMYDIA DNA DET Lab Routine Screen for STD (sexually transmitted disease) 07/13/2021 11:17 AM EDT [facility] Work Phone: Chlamydia trachomatis+Neisseria gonorrhoeae DNA [Presence] in Unspecified specimen by KERRY with probe detection GONORRHEA/CHLAMYDIA NAAT Lab Routine Exposure to sexually transmitted disease (STD) 05/15/2024 2:[address] [facility] End: 11-30-2024 CT for calcium scoring WO contrast and CTA W contrast IV Heart and coronary arteries [facility] Service Area Work Phone: Comment on above: Once for 1 Occurrences starting 12/01/19 until 11/30/2024 End: 10-13-2024 DBT Breast - bilateral screening MENDEL SCREENING W [facility] Radiology Routine Encounter for gynecological examination (general) (routine) with abnormal findings Encounter for screening mammogram for breast cancer Dense breast tissue 1 Occurrences starting 09/14/2023 until 10/13/2024 [facility] Work Phone: Comment on above: 1 Occurrences starting 09/14/2023 until 10/13/2024 Hemoglobin [Presence ] in Urine [facility] Work Phone: Insertion intrauteri ne device iud INSERT INTRAUTERINE DEVICE Procedures Routine IUD (intrauterine device) in place Ordered: 09/14/2023 [facility] Comment on above: Ordered: 09/14/2023 Insertion intrauteri ne device iud INSERT INTRAUTERINE DEVICE Procedures Routine Encounter for IUD insertion Ordered: 09/27/2023 [facility] Work Phone: Comment on above: Ordered: 09/27/2023 Lactic acid measurement [facility] Work Phone: End: 06-25-2023 MENDEL SCREENING MENDEL SCREENING Radiology Routine Encounter for screening mammogram for breast cancer 1 Occurrences starting 05/26/2022 until 06/25/2023 [facility] Work Phone: Comment on above: 1 Occurrences starting 05/26/2022 until 06/25/2023 Measurement of keton es in urine using dipstick [facility] Work Phone: Measurement of respiratory function [facility] Microscopic urinalysis [facility] Work Phone: PAP TEST PAP TEST Lab Alec chapa Encounter for gynecological examination (general) (routine) with abnormal findings Screening for cervical cancer Encounter for screening for human papillomavirus (HPV) 09/14/2023 2:[address] [facility] Patient Education [facility] Work Phone: Patient referral [facility] Work Phone: pH of Urine [facility] Work Phone: End: 07-28-2023 Radiologic exam chest 2 views XR CHEST 2V FRONTAL/LAT Radiology Routine Pneumonia of right lower lobe due to methicillin resistant Staphylococcus aureus (MRSA) (HCC) 1 Occurrences starting 06/28/2022 until 07/28/2023 [facility] Work Phone: Comment on above: 1 Occurrences starting 06/28/2022 until 07/28/2023 Removal intrauterine device iud [facility] Work Phone: Comment on above: Ordered: 07/13/2021 Removal intrauterine device iud REMOVE INTRAUTERINE DEVICE Procedures Routine IUD (intrauterine device) in place Ordered: 09/14/2023 [facility] Comment on above: Ordered: 09/14/2023 Removal intrauterine device iud REMOVE INTRAUTERINE DEVICE Procedures Routine Encounter for IUD removal Ordered: 09/27/2023 [facility] Comment on above: Ordered: 09/27/2023 End: 01-29-2023 Screening mammography bi 2-view breast inc cad MENDEL SCREENING Radiology Routine Encounter for screening mammogram for breast cancer 1 Occurrences starting 12/30/2021 until 01/29/2023 [facility] Work Phone: Comment on above: 1 Occurrences starting 12/30/2021 until 01/29/2023 Specific gravity of Urine [facility] Work Phone: Urinalysis, blood, qualitative [facility] Work Phone: Urine dipstick for glucose [facility] Work Phone: Urine dipstick for leukocyte esterase [facility] Work Phone: Urine dipstick for nitrite [facility] Work Phone: Urine dipstick for protein [facility] Work Phone: Urine examination [facility] Work Phone: Urine microscopy: epithelial cells [facility] Work Phone: Urine Microscopy: wh ite cells [facility] Work Phone: Urobilinogen [Presen ce] in Urine [facility] Work Phone: End: 03-01-2025 XR Lumbar spine 3 Views XR LUMBAR GENERAL 3V AP/LAT/L5-S1 Radiology Routine Paresthesia of bilateral legs 1 Occurrences starting 01/31/2024 until 03/01/2025 [facility] Work Phone: Comment on above: 1 Occurrences starting 01/31/2024 until 03/01/2025 [facility] Immunizations Immunization Date Immunization Notes Care Provider Bernie [place] 08-09-2024 hepatitis B vaccine, adult dosage Lazara Melendez APRN.MAINTENANCE WELDER Work Phone: [facility] 03-12-2016 influenza, injectabl e, quadrivalent, preservative free Dr. Eldon Hernandez Work Phone: [facility] 03-12-2016 influenza, seasonal, injectable Dr. Eldon Hernandez Work Phone: [facility] 03-12-2016 influenza virus vaccine, unspecified formulation Screen Wstr [facility] 03-05-2015 influenza, injectabl e, quadrivalent, contains preservative Tracy Aguillon APRN.[place] Work Phone: [facility] 03-05-2015 influenza, seasonal, injectable TAWANA Ortega PA-C Work Phone: [facility] 04-03-2014 influenza, seasonal, injectable Tracy Aguillon APRN.[place] Work Phone: [facility] 08-13-2013 tetanus toxoid, reduced diphtheria toxoid, and acellular pertussis vaccine, adsorbed Tracy Aguillon APRN.CNM Work Phone: [facility] Payers Date Payer Category Payer Self-pay [id number] 2021 Medicaid (Managed Care) [employer] [id number] 2012 Medicaid [employer] [id number] 2012-Present [phone] [address] [place] [address] Medicaid [id number] 2012 Medicaid [id number] 2012 Unknown [id number] 2012 Unknown [id number] 1980 Unknown [id number] 1980 Unknown [id number] 1980 Unknown [id number] Unknown [id number] Unknown [id number] Social History Date Type Detail Facility Start: 04-30-2019 End: 12-15-2023 Tobacco smoking status NHIS Smokes tobacco daily [facility] History of tobacco use Cigarette Smoker C [facility] Work Phone: Start: 07-13-2021 End: 11-05-2024 Alcohol intake Current drinker of alcohol (finding) [facility] Start: 06-12-2015 History SDOH Alcohol Comment occ [facility] Start: 1980 Sex Assigned At Not on file C [facility] Start: 06-29-2021 End: 01-11-2022 Exposure to SARS-CoV-2 (event) Not sure [facility] Start: 08-25-2021 End: 06-16-2023 Tobacco smoking status NHIS Unknown if ever smoked [facility] Start: 05-25-2013 None [facility] Start: 07-15-2018 Spouse/ Signif icant Other;With Family [facility] Start: 04-02-2016 Cigarettes [facility] Start: 1980 Sex Assigned At Female W [facility] Start: 09-21-2021 End: 10-01-2021 Exposure to SARS-CoV-2 (event) Yes [facility] Start: 04-30-2019 End: 05-10-2023 Cigarettes smoked current (pack per day) - Reported 0.5 [facility] Start: 04-30-2019 End: 12-15-2023 Tobacco use and exposure Smokeless tobacco non-user [facility] Start: 06-28-2022 History SDOH Alcohol Frequency 1 [facility] Start: 06-28-2022 History SDOH Alcohol Std Drinks 0 [facility] Start: 06-28-2022 History SDOH Social Connections Phone [address] [facility] Start: 06-28-2022 History SDOH Social Connections Living 5 [facility] Start: 06-28-2022 History SDOH Physica l Activity MPS 3 [facility] Start: 06-28-2022 End: 05-10-2023 Social connection and isolation panel [facility] Do you belong to any clubs or organizations such as adventism groups, unions, fraternal or athletic groups, or school groups? No [facility] Are you now , , , , never or living with a partner? [facility] How often to you hav e a drink containing alcohol? Never [facility] Start: 10-29-2024 How many standard drinks containing alcohol do you have on a typical day? Patient does not drink [facility] Do you feel stress - tense, restless, nervous, or anxious, or unable to sleep at night because your mind is troubled all the time - these days [OSQ] Only a little [facility] (I/We) worried wheth er (my/our) food would run out before (I/we) got money to buy more. Never true [facility] Start: 11-15-2022 Gender identity Identifies as female gender (finding) [facility] Start: 11-15-2022 Sexual orientation Heterosexual (fin ding) [facility] Start: 08-01-2023 Tobacco smoking status Heavy t obacco smoker (finding) [facility] Do you feel stress - tense, restless, nervous, or anxious, or unable to sleep at night because your mind is troubled all the time - these days [OSQ] Not at all [facility] (I/We) worried wheth er (my/our) food would run out before (I/we) got money to buy more. Sometimes true [facility] NEGATED: Highlighted row [facility] Medical Equipment Procedure Code Equipment Code Equipment Original Text Equipment Identifier Dates Mirena Iud [id number] Start: 03-13-2013 [id number], [id number], [id number], [id number], [id number], [id number], [id number] Start: 01-30-2018 End: 07-11-2024 Comment on above: Test blood sugar(s) 2 times daily. Dx: Type 2 DM - Uncontrolled E11.65 Insulin: Yes Daily injections Test blood sugar(s) two times daily. Dx: E11.65. Insulin: Yes Goals Date Patient Goal Desired Activity /State Functional Status Date Assessment Result Facility 04-12-2022 Functional status Chair [facility] Work Phone: 05-01-2019 Are you deaf, or do you have serious difficulty hearing No 05/01/2019 4:16 PM Kevin Canada RN No [facility] 05-01-2019 Are you blind, or do you have serious difficulty seeing, even when wearing glasses No 05/01/2019 4:16 PM Kevin Canada RN No [facility] 05-01-2019 Do you have serious difficulty walking or climbing stairs No 05/01/2019 4:16 PM Kevin Canada RN No [facility] 05-01-2019 Do you have difficul ty dressing or bathing No 05/01/2019 4:16 PM Kevin Canada RN No [facility] 05-01-2019 Because of a physica l, mental, or emotional condition, do you have difficulty doing errands alone such as visiting a physician's office or shopping No 05/01/2019 4:16 PM Kevin Canada RN No [facility] Mental Status Date Assessment Result Facility 06-16-2023 Cognitive function Voice/Name [facility] Work Phone: 05-27-2023 Cognitive function Level Of Cons ciousness Awake;Alert;Appropriate;Fol lows Commands [facility] Work Phone: 04-30-2023 Cognitive function Level Of Cons ciousness Awake;Alert;Appropriate;Fol lows Commands [facility] Work Phone: 11-17-2022 Cognitive function Level Of Cons ciousness Awake;Alert;Appropriate;Fol lows Commands [facility] Work Phone: 04-12-2022 Cognitive function Voice/Name [facility] Work Phone: 04-01-2022 Cognitive function Level Of Cons ciousness Awake;Alert;Appropriate;Fol lows Commands [facility] Work Phone: 06-16-2021 Cognitive function Awake;Alert;Appropriat e [facility] Work Phone: 05-01-2019 Because of a physica l, mental, or emotional condition, do you have serious difficulty concentrating, remembering, or making decisions No 05/01/2019 4:16 PM Kevin Canada, ABHI No [facility] Clinical Notes 05-13-2014 to 01-15-2025 Patient InstructionsSuLazara parmar APRN.LILA - 11/05/2024 1:18 PM EDTTelephone Encounter - Daja Nunez MA - 08/27/2024 4:56 PM EDTTelephone Encounter - Daja Nunez MA - 08/27/2024 4:56 PM EDT Note Date & Type Note Facility 01-15-2025 Note HNO ID: [id number] Author: KANIKA SAWANT RT(R) Service: ? Author Type: Registered Nurse Cardiovascular Icu Type: Progress Notes Filed: 01/15/2025 12:08 Note Text: Radiology Service Progress Note PATIENT NAME: Ginger Ching DATE OF SERVICE: January 15, 2025 TIME: 12:02 PM PATIENT IDENTITY VERIFICATION COMPLETED USING TWO (2) IDENTIFIERS: Name and Date of confirmed by patient verbally. FALL SCREENING: Has the patient had 2 falls in the last year or 1 fall with injury or currently using an Ambulatory Assistive Device (Walker, Cane, Wheelchair, Crutches, etc.)? No PATIENT GENDER DATA: Assigned female at . status: : No status: NO. PATIENT RELEVANT IMPLANT DATA REVIEWED: Yes PATIENT PRESENTS WITH AN IMPLANTABLE OR ATTACHED CIAIO LUMITE INJECTOR: No RADIOLOGY DEPARTMENT: General X-ray: Exam(s) Completed: Chest X-Ray PERIPHERAL IV DATA: Not applicable SIGNED BY: RT Andrey(R) January 15, 2025 12:02 PM [facility] 01-15-2025 Note HNO ID: [id number] Author: ARNULFO LUX APRN.LILA Service: ? Author Type: Nurse Practitioner Type: Progress Notes Filed: 01/15/2025 13:56 Note Text: URGENT CARE ANNI Subjective Ginger Ching is a 44 year old female presenting with chest congestion, a dry non-productive cough, runny nose, and a 8/10 headache for x 2 days. Associated symptoms include postnasal drip, sinus pain and pressure, and shortness of breathe. Patient reports a history of COPD with no known exacerbations. She has been taking her daily inhaler. Pertinent negatives include no fever, chills, fatigue, no sore throat, or trouble swallowing. Review of Systems Constitutional: Positive for diaphoresis. Negative for chills, fatigue and fever. HENT: Positive for postnasal drip, rhinorrhea (yellow), sinus pressure and sinus pain. Negative for congestion, ear discharge, ear pain, sneezing, sore throat, tinnitus and trouble swallowing. Eyes: Negative for pain, discharge, redness and itching. Respiratory: Positive for cough, shortness of breath and wheezing. Cardiovascular: Negative for chest pain. Allergic/Immunologic: Positive for environmental allergies. Neurological: Positive for headaches (12/02). Negative for dizziness and light-headedness. Objective BP 132/82 Pulse 94 Temp 36.6 ?C (97.9 ?F) (Tympanic) Resp 18 Wt 97.2 kg (214 lb 4.6 oz) LMP 07/03/2024 (Within Days) SpO2 96% BMI 36.78 kg/m? Physical Exam Vitals and nursing note reviewed. Constitutional: General: She is awake. She is not in acute distress. Appearance: Normal appearance. She is not ill-appearing or toxic-appearing. HENT: Head: Normocephalic. Right Ear: Tympanic membrane, ear canal and external ear normal. Left Ear: Tympanic membrane, ear canal and external ear normal. Nose: Rhinorrhea present. Rhinorrhea is clear. Right Nostril: No foreign body or occlusion. Left Nostril: No foreign body or occlusion. Right Turbinates: Not enlarged, swollen or pale. Left Turbinates: Not enlarged, swollen or pale. Right Sinus: Frontal sinus tenderness present. No maxillary sinus tenderness. Left Sinus: Frontal sinus tenderness present. No maxillary sinus tenderness. Mouth/Throat: Mouth: Mucous membranes are moist. Tongue: No lesions. Tongue does not deviate from midline. Palate: No mass and lesions. Pharynx: Oropharynx is clear. Uvula midline. No pharyngeal swelling, oropharyngeal exudate, posterior oropharyngeal erythema, uvula swelling or postnasal drip. Tonsils: No tonsillar exudate or tonsillar abscesses. 2+ on the right. Eyes: Conjunctiva/sclera: Conjunctivae normal. Pupils: Pupils are equal, round, and reactive to light. Cardiovascular: Rate and Rhythm: Normal rate and regular rhythm. Heart sounds: Normal heart sounds, S1 normal and S2 normal. No murmur heard. Pulmonary: Effort: Pulmonary effort is normal. Breath sounds: Normal breath sounds. No decreased breath sounds or wheezing. Musculoskeletal: Cervical back: Full passive range of motion without pain. Lymphadenopathy: Head: Right side of head: No submental, submandibular, tonsillar, preauricular, posterior auricular or occipital adenopathy. Left side of head: No submental, submandibular, tonsillar, preauricular, posterior auricular or occipital adenopathy. Skin: General: Skin is warm and dry. Capillary Refill: Capillary refill takes less than 2 seconds. Neurological: Mental Status: She is alert and oriented to person, place, and time. Psychiatric: Mood and Affect: Mood normal. {ASSESSMENT/PLAN: 1. Cough, unspecified type - ICD9: 786.2, ICD10: R05.9 - Educated patient to schedule a PCP follow up for further evaluation of COPD management. - Educated if shortness of breath continues then she should go to the Emergency Room. - XR CHEST 2V FRONTAL/LAT RESULT: Lungs and pleura: Elevation of the RIGHT hemidiaphragm and mild RIGHT basilar atelectasis/scarring. No consolidation, pleural effusion or pneumothorax. Cardiomediastinal silhouette: Normal cardiomediastinal silhouette. Bones and soft tissues: Mild endplate degenerative changes in the thoracic spine. Exaggerated kyphosis of the thoracolumbar junction similar to prior exam. MDM Procedures Discussed medication dosage, usage, goals of therapy, and side effects. Return to [facility], call primary care provider, or go to the emergency department for problems, worsening, increased or new symptoms, etc. Red flag symptoms discussed with the patient and when to go to ER. Patient verbalized understanding to plan of care. Kristian Mcdowell ANTIQUE FURNITURE RESTORER student TEACHING PROVIDER (Physician/PA/WEB CONTENT COORDINATOR) NOTE OF PERSONAL INVOLVEMENT IN CARE: I have personally seen and examined the patient and performed the medical decision-making components. I have reviewed the Advanced Practice Registered Nurse (WEB CONTENT COORDINATOR) Student's documentation and verified the findings in the note as written. Any additi (more content not included)... [facility] 11-05-2024 Instructions Lazara Melendez APRN.CNP - 11/05/2024 1:30 PM EDT - Take doxycycline as prescribed to treat both your pilonidal cyst and your bronchitis/pneumonia; finish the full course. - Increase duloxetine to 60 mg once daily by taking two of your 30 mg capsules at the same time until you refill for a 60 mg tablet. - Jardiance and Tradjenta (linagliptin) refills have been sent to your pharmacy for a 90-day supply. - Soak daily in a warm bath with soapy water or Epsom salts to help ease the soreness of your cyst. - A referral has been placed for general surgery to evaluate your pilonidal cyst; the scheduling team will contact you. documented in this encounter [facility] 11-05-2024 Note HNO ID: [id number] Author: LAZARA MELENDEZ APRN.CNP Service: ? Author Type: Nurse Practitioner Type: Progress Notes Filed: 11/05/2024 13:31 Note Text: This is a 44 year old female who presents today with: Patient presents with: Abscess: Boil HISTORY OF PRESENT ILLNESS: Ginger Ching is a 44 year old female. Patient presents with: Abscess: Boil Ginger Ching is a 44-year-old female with a history of COPD and recurrent pneumonia, presenting with a pilonidal cyst and respiratory symptoms. Pilonidal Cyst: - Recurrent pilonidal cysts, previously requiring incision and drainage in the ED. - Current cyst is about the size of a pea, located between the buttocks, causing significant pain. - Aggravated by menstruation and friction from sanitary pads. - Using sitz baths for relief. - Denies fever or chills. Respiratory Symptoms: - Cough, dyspnea, and wheezing x2 weeks. - Denies fever, chills, or sputum production. - No anosmia or ageusia. - Denies suspected COVID-19 infection; has had COVID-19 three times previously. - History of recurrent pneumonia, typically affecting the right upper lobe. - Denies nausea or emesis. COPD: - Reports increased dyspnea, attributing it to COPD. - Denies use of Trulicity. Depression: - Reports low mood, lack of motivation, and social withdrawal. - Current medication regimen includes duloxetine. Diabetes Mellitus: - Blood glucose levels reportedly better than what they were, averaging around 200 mg/dL. - CGM sensor malfunctioned yesterday; has not replaced it yet. - Current medications include Jardiance and Tradjenta. PAST MEDICAL HISTORY: PAST MEDICAL HISTORY Diagnosis Date Anxiety 12/29/2012 [...] Percocet [Oxycodone-Acetaminophen], and Zyrtec [Cetirizine Hcl] MEDICATIONS Current Outpatient Medications Medication Sig metoprolol succinate ER (TOPROL XL) 25 mg 24 hr tablet Take 25 mg by mouth once daily. gabapentin (NEURONTIN) 800 mg tablet Take 800 mg by mouth three times a day. pregabalin (LYRICA) 100 mg capsule Take 1 capsule by mouth two times a day for 90 days. insulin lispro (ADMELOG SOLOSTAR U-100 INSULIN) 100 unit/mL Inject 12 units with meals (TID) plus SS #1 (1 for 50 over 150 pre meal blood sugar) TDD 50 units ergocalciferol 50,000 unit capsule (VITAMIN D2, DRISDOL) Take 1 capsule by mouth one time a week. insulin glargine (LANTUS SOLOSTAR U-100 INSULIN) 100 unit/mL (3 mL) Inject 50 Units subcutaneously daily at bedtime. STIOLTO RESPIMAT 2.5-2.5 mcg/actuation inhaler Inhale 2 Puffs as instructed once daily. linaGLIPtin (TRADJENTA) 5 mg tab Take 1 tablet by mouth once daily. DULoxetine (CYMBALTA) 30 mg capsule Take 1 capsule by mouth once daily. blood sugar diagnostic (BLOOD GLUCOSE TEST) test strip Test blood sugar(s) 2 times daily. Dx: Type 2 DM - Uncontrolled E11.65 Insulin: Yes Blood-Glucose Meter,Continuous (FREESTYLE ANA 3 READER) misc Use to check blood sugar at least four (4) times daily. Blood-Glucose Sensor (FREESTYLE ANA 3 SENSOR) natalia Apply new sensor every fourteen (14) days to upper arm. empagliflozin (JARDIANCE) 25 mg tablet Take 1 tablet by mouth daily with breakfast. atorvastatin (LIPITOR) 20 mg tablet Take 1 tablet by mouth once daily. levonorgestrel (MIRENA) 21 mcg/24 hr (8 yrs) 52 mg IUD 1 Each by INTRAUTERINE route as directed. albuterol HFA (PROVENTIL HFA, VENTOLIN HFA) 90 mcg/actuation inhaler Inhale 2 Puffs as instructed every 4 hours as needed for wheezing/shortness of breath. dulaglutide (TRULICITY) 0.75 mg/0.5 mL pen injector Inject 0.75 mg subcutaneously one time a week. Insulin [place], Disposable, (SURE-FINE PEN NEEDLES) 31 gauge x 3/16 Daily injections - USES 4 pen needles daily with insulin Lancets Test blood sugar(s) two times daily. Dx: E11.65. Insulin: Yes No current facility-administered medications for this visit. FAMILY HISTORY Problem Relation Age of Onset Heart Mother Diabetes Mother Hypertension Mother Arthritis Mother Heart Father Arthritis Father Cancer Maternal Grandmother stomach cancer. Social History Tobacco Use Smoking status: Every Day Current packs/day: 0.50 Average packs/day: 0.5 packs/day for 20.0 years (10.0 ttl pk-yrs) Types: Cigarettes Smokeless tobacco: Never Substance Use Topics Alcoh (more content not included)... [facility] 11-05-2024 History of Present illness Narrative This is a 44 year old female who presents today with: Patient presents with: Abscess: Boil HISTORY OF PRESENT ILLNESS: Ginger Ching is a 44 year old female. Patient presents with: Abscess: Boil Ginger Ching is a 44-year-old female with a history of COPD and recurrent pneumonia, presenting with a pilonidal cyst and respiratory symptoms. Pilonidal Cyst: - Recurrent pilonidal cysts, previously requiring incision and drainage in the ED. - Current cyst is about the size of a pea, located between the buttocks, causing significant pain. - Aggravated by menstruation and friction from sanitary pads. - Using sitz baths for relief. - Denies fever or chills. Respiratory Symptoms: - Cough, dyspnea, and wheezing x2 weeks. - Denies fever, chills, or sputum production. - No anosmia or ageusia. - Denies suspected COVID-19 infection; has had COVID-19 three times previously. - History of recurrent pneumonia, typically affecting the right upper lobe. - Denies nausea or emesis. COPD: - Reports increased dyspnea, attributing it to COPD. - Denies use of Trulicity. Depression: - Reports low mood, lack of motivation, and social withdrawal. - Current medication regimen includes duloxetine. Diabetes Mellitus: - Blood glucose levels reportedly better than what they were, averaging around 200 mg/dL. - CGM sensor malfunctioned yesterday; has not replaced it yet. - Current medications include Jardiance and Tradjenta. PAST MEDICAL HISTORY: PAST MEDICAL HISTORY Diagnosis Date Anxiety 12/29/2012 [...] Percocet [Oxycodone-Acetaminophen], and Zyrtec [Cetirizine Hcl] MEDICATIONS Current Outpatient Medications Medication Sig metoprolol succinate ER (TOPROL XL) 25 mg 24 hr tablet Take 25 mg by mouth once daily. gabapentin (NEURONTIN) 800 mg tablet Take 800 mg by mouth three times a day. pregabalin (LYRICA) 100 mg capsule Take 1 capsule by mouth two times a day for 90 days. insulin lispro (ADMELOG SOLOSTAR U-100 INSULIN) 100 unit/mL Inject 12 units with meals (TID) plus SS #1 (1 for 50 over 150 pre meal blood sugar) TDD 50 units ergocalciferol 50,000 unit capsule (VITAMIN D2, DRISDOL) Take 1 capsule by mouth one time a week. insulin glargine (LANTUS SOLOSTAR U-100 INSULIN) 100 unit/mL (3 mL) Inject 50 Units subcutaneously daily at bedtime. STIOLTO RESPIMAT 2.5-2.5 mcg/actuation inhaler Inhale 2 Puffs as instructed once daily. linaGLIPtin (TRADJENTA) 5 mg tab Take 1 tablet by mouth once daily. DULoxetine (CYMBALTA) 30 mg capsule Take 1 capsule by mouth once daily. blood sugar diagnostic (BLOOD GLUCOSE TEST) test strip Test blood sugar(s) 2 times daily. Dx: Type 2 DM - Uncontrolled E11.65 Insulin: Yes Blood-Glucose Meter,Continuous (FREESTYLE ANA 3 READER) [facility] Use to check blood sugar at least four (4) times daily. Blood-Glucose Sensor (FREESTYLE ANA 3 SENSOR) natalia Apply new sensor every fourteen (14) days to upper arm. empagliflozin (JARDIANCE) 25 mg tablet Take 1 tablet by mouth daily with breakfast. atorvastatin (LIPITOR) 20 mg tablet Take 1 tablet by mouth once daily. levonorgestrel (MIRENA) 21 mcg/24 hr (8 yrs) 52 mg IUD 1 Each by INTRAUTERINE route as directed. albuterol HFA (PROVENTIL HFA, VENTOLIN HFA) 90 mcg/actuation inhaler Inhale 2 Puffs as instructed every 4 hours as needed for wheezing/shortness of breath. dulaglutide (TRULICITY) 0.75 mg/0.5 mL pen injector Inject 0.75 mg subcutaneously one time a week. Insulin [place], Disposable, (SURE-FINE PEN NEEDLES) 31 gauge x 3/16 Daily injections - USES 4 pen needles daily with insulin Lancets Test blood sugar(s) two times daily. Dx: E11.65. Insulin: Yes No current facility-administered medications for this visit. FAMILY HISTORY Problem Relation Age of Onset Heart Mother Diabetes Mother Hypertension Mother Arthritis Mother Heart Father Arthritis Father Cancer Maternal Grandmother stomach cancer. Social History Tobacco Use Smoking status: Every Day Current packs/day: 0.50 Average packs/day: 0.5 packs/day for 20.0 years (10.0 ttl pk-yrs) Types: Cigarettes Smokeless tobacco: Never Substance Use Topics Alcohol use: Yes Comment: occ Drug use: No REVIEW OF SYSTEMS Constitutional: (+) fatigue, (-) fever, (-) chills Ears/Nose/Mouth/Throat: (-) anosmia, (-) ageusia Respiratory: (+) shortness of breath, (+) cough, (+) wheezing, (-) sputum production Musculoskeletal: (+) burning foot pain with walking Skin: (+) buttock tenderness, (+) buttock skin lesion Psychiatric: (+) depressed mood, (+) anhedonia EXAM: BP 132/82 Pulse 88 Temp 36.1 C (97 F) (Left Tympanic) Wt 98.9 kg (218 lb) LMP 07/03/2024 (Within Days) SpO2 96% BMI 37.42 kg/m PHYSICAL EXAM: GENERAL: NAD, alert and oriented. SKIN: 1 inch to right of rectum, pea sized firm area of swelling that is very painful- no drainage or redenss HEAD: Normocephalic. LUNGS: Right upper lobe with diminished breath sounds. Scattered wheezes/ no rhonch or rales. Diminished and + egophony RUL HEART: Regular rate and rhythm, no murmurs. No ectopy. EXTREMITIES: Normal, no deformities, no skin discoloration, no edema. NEURO: Awake, alert and oriented x3, cranial nerves II-XII grossly intact, normal gait, no involuntary motions. LABS: ASSESSMENT/PLAN: 1. Boil of buttock (L02.32) - Small, tender lesion approximately the size of a pea located in the intergluteal cleft; not ready for incision and drainage. - Recommended sitz baths with Epsom salts. - Prescribed doxycycline to facilitate spontaneous drainage. - Referral to general surgery for evaluation, though resolution is anticipated before appointment. 2. Pneumonia of right lung due to infectious organism, unspecified part of lung (J18.9) - Diminished breath sounds in the right upper lobe on auscultation; differential includes bronchitis. - Symptoms include dyspnea, cough, and wheezing; no fever, chills, or sputum production reported. - Prescribed doxycycline to cover both skin and respiratory infections. 3. Depression, major, single episode, moderate (HCC) (F32.1) - Mood remains low with anhedonia. - Increased duloxetine dosage to 60 mg daily. 4. Neuropathic pain (M79.2) 5. Fibromyalgia (M79.7) - Neuropathic pain in feet described as severe burning sensation, impacting mobility. - Increased duloxetine dosage to 60 mg daily for neuropathic pain management. 6. Type 2 diabetes mellitus with hyperglycemia, with long-term current use of insulin (HCC) (E11.65) - Blood glucose levels reportedly around 200 mg/dL; continuous glucose monitor sensor not currently in use. - Discontinued Trulicity. - Refilled Jardiance and Tradjenta prescriptions, extended to 90-day supply. Discussed treatment plan and patient voices understanding. Patient's questions answered appropriately. Medications and potential side effects were discussed and patient voices understanding. Return to the office as scheduled or as needed for worsening/no improvement. Lazara Melendez APRN.LILA documented in this encounter [facility] 08-27-2024 Telephone encounter Note Letter taken to medical records Left message for pt Daja Nunez MA August 27, 2024 4:[address] [facility] 08-27-2024 Miscellaneous Notes Letter taken to medical records Left message for pt Daja Nunez MA August 27, 2024 4:56 PM Note written for 6 months Pt calls to request a letter from pcp stating pt cannot work at this time because of neuropathy and medication changes. Pt reports she cannot stand for more than 5 minutes on her feet without falling. Pt walks with an assistive device. Pt's medications were recently changed from gabapentin to Lyrica. Pt advised pcp is out of the office this week. Pt is ok waiting until pcp returns to office to get letter. 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 Charla Beard LPN documented in this encounter [facility] 08-27-2024 Telephone encounter Note Note written for [address] [facility] 08-20-2024 Telephone encounter Note Pt calls to request a letter from pcp stating pt cannot work at this time because of neuropathy and medication changes. Pt reports she cannot stand for more than 5 minutes on her feet without falling. Pt walks with an assistive device. Pt's medications were recently changed from gabapentin to Lyrica. Pt advised pcp is out of the office this week. Pt is ok waiting until pcp returns to office to get letter. 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 Charla Beard LPN [facility] 08-13-2024 Telephone encounter Note Patient notified of medication change and is agreeable. Daja Nunez MA August 13, 2024 11:[address] [facility] 08-13-2024 Miscellaneous Notes Patient notified of medication change and is agreeable. Daja Nunez MA August 13, 2024 11:49 AM Please let patient know that Ozempic is not covered but Trulicity is. I have ordered Trulicity 0.75 mg every week. This medication is in the same class. We will see how she is doing with weight and blood sugars at her next appointment. This was denied with pts insurance. See formulary options. Note from payer: Coverage is provided when the member meets all the followin. Member has a history of at least 120 days of therapy with THREE preferred medications in this UPDL category. ONE of the 120 day trials must be with a drug in the same drug class, Victoza (18 MG/3 ML PEN) (Brand name is preferred by the plan) or Trulicity (0.75 mg, 1.5 mg, 3 mg, and 4.5 mg). Other trials may include but are not limited to: Farxiga 5 and 10 mg (Brand name is preferred by the plan), Glimepiride, Glipizide, Januvia, Jardiance 10 and 25 mg and Metformin IR 500 mg, 850 mg, 1000 mg and ER (generics of Glucophage); The trial of tradjenta was noted; 2. Member has had an inadequate clinical response (the inability to reach A1C goal (less than 7%) after at least 120 days of current regimen, with use of two or more drugs concomitantly per ADA ([place] [employer]) guidelines and, 3. Member has documented adherence and appropriate dose escalation (must achieve maximum recommended dose or document that maximum recommended dose is not tolerated or is clinically inappropriate) and, 4. Documentation includes a patient specific A1C goal if less than 7% and must include current A1C (within the last 6 months). The [facility] Policy for Medical Necessity as posted on the [facility] website and [facility] Preferred Drug List criteria were reviewed and per [place] Administrative Code Rule 5160-1-01 (C) and (B), a medically necessary service must include: generally accepted standards of medical practice, be clinically appropriate in administration, treatment and outcome and be the lowest cost alternative to effectively treat the condition. Please contact your provider to assist you with other treatment options that might be covered under your benefit package, or other services that might be available through the community. Payer: [facility] Electronic PA rec'd and completed for ozempic documented in this encounter [facility] 08-13-2024 Telephone encounter Note Please let patient know that Ozempic is not covered but Trulicity is. I have ordered Trulicity 0.75 mg every week. This medication is in the same class. We will see how she is doing with weight and blood sugars at her next appointment. [facility] 08-10-2024 Telephone encounter Note This was denied with pts insurance. See formulary options. Note from payer: Coverage is provided when the member meets all the followin. Member has a history of at least 120 days of therapy with THREE preferred medications in this UPDL category. ONE of the 120 day trials must be with a drug in the same drug class, Victoza (18 MG/3 ML PEN) (Brand name is preferred by the plan) or Trulicity (0.75 mg, 1.5 mg, 3 mg, and 4.5 mg). Other trials may include but are not limited to: Farxiga 5 and 10 mg (Brand name is preferred by the plan), Glimepiride, Glipizide, Januvia, Jardiance 10 and 25 mg and Metformin IR 500 mg, 850 mg, 1000 mg and ER (generics of Glucophage); The trial of tradjenta was noted; 2. Member has had an inadequate clinical response (the inability to reach A1C goal (less than 7%) after at least 120 days of current regimen, with use of two or more drugs concomitantly per ADA ([place] [employer] Association) guidelines and, 3. Member has documented adherence and appropriate dose escalation (must achieve maximum recommended dose or document that maximum recommended dose is not tolerated or is clinically inappropriate) and, 4. Documentation includes a patient specific A1C goal if less than 7% and must include current A1C (within the last 6 months). The [facility] Policy for Medical Necessity as posted on the [facility] website and [facility] Preferred Drug List criteria were reviewed and per [place] Administrative Code Rule 5160-1-01 (C) and (B), a medically necessary service must include: generally accepted standards of medical practice, be clinically appropriate in administration, treatment and outcome and be the lowest cost alternative to effectively treat the condition. Please contact your provider to assist you with other treatment options that might be covered under your benefit package, or other services that might be available through the community. Payer: [facility] 08-09-2024 Telephone encounter Note Electronic PA rec'd and completed for ozempic [facility] 08-09-2024 Instructions Lazara Melendez APRN.CNP - 08/09/2024 9:48 AM EDT 1) Hepatitis B vaccine today, in 1 month, and 6 months 2) Semaglutide 0.25 mg weekly for 1 month 3) Stop gabapentin and switch to Pregabulin (Lyrica) the next morning. 4) Follow up in 1 months documented in this encounter [facility] 08-09-2024 Note HNO ID: [id number] Author: LAZARA MELENDEZ APRN.CNP Service: ? Author Type: Nurse Practitioner Type: Progress Notes Filed: 08/09/2024 10:33 Note Text: This is a 44 year old female who presents today with: Patient presents with: Diabetes: Medication follow up HISTORY OF PRESENT ILLNESS: Ginger Ching is a 44 year old female. Patient presents with: Diabetes: Medication follow up Wants to lose weight. Diabetes is not well controlled. HgA1c 8.8 % Weight up. BMI 36.05 Would like to try Ozempic for both. No Hx of thyroid cancer or pancreatitis. Discussed risks of constipation, belching, and slowing of motility. Uses CGM- average about 225 Fibromyalgia- hurts constantly Legs and feet hurting Would like to come off gabapentin, not helping PAST MEDICAL HISTORY: PAST MEDICAL HISTORY Diagnosis Date Anxiety 12/29/2012 [...] Percocet [Oxycodone-Acetaminophen], and Zyrtec [Cetirizine Hcl] MEDICATIONS Current Outpatient Medications Medication Sig insulin lispro (ADMELOG SOLOSTAR U-100 INSULIN) 100 unit/mL Inject 12 units with meals (TID) plus SS #1 (1 for 50 over 150 pre meal blood sugar) TDD 50 units (Patient taking differently: Inject 8 units with meals (TID) plus SS #1 (1 for 50 over 150 pre meal blood sugar) TDD 50 units) Insulin [place], Disposable, (SURE-FINE PEN NEEDLES) 31 gauge x 3/16 Daily injections - USES 4 pen needles daily with insulin ergocalciferol 50,000 unit capsule (VITAMIN D2, DRISDOL) Take 1 capsule by mouth one time a week. gabapentin (NEURONTIN) 800 mg tablet Take 1 tablet by mouth three times a day for 180 days. insulin glargine (LANTUS SOLOSTAR U-100 INSULIN) 100 unit/mL (3 mL) Inject 50 Units subcutaneously daily at bedtime. STIOLTO RESPIMAT 2.5-2.5 mcg/actuation inhaler Inhale 2 Puffs as instructed once daily. linaGLIPtin (TRADJENTA) 5 mg tab Take 1 tablet by mouth once daily. DULoxetine (CYMBALTA) 30 mg capsule Take 1 capsule by mouth once daily. Lancets Test blood sugar(s) two times daily. Dx: E11.65. Insulin: Yes blood sugar diagnostic (BLOOD GLUCOSE TEST) test strip Test blood sugar(s) 2 times daily. Dx: Type 2 DM - Uncontrolled E11.65 Insulin: Yes Blood-Glucose Meter,Continuous (FREESTYLE ANA 3 READER) misc Use to check blood sugar at least four (4) times daily. Blood-Glucose Sensor (FREESTYLE ANA 3 SENSOR) natalia Apply new sensor every fourteen (14) days to upper arm. empagliflozin (JARDIANCE) 25 mg tablet Take 1 tablet by mouth daily with breakfast. atorvastatin (LIPITOR) 20 mg tablet Take 1 tablet by mouth once daily. levonorgestrel (MIRENA) 21 mcg/24 hr (8 yrs) 52 mg IUD 1 Each by INTRAUTERINE route as directed. albuterol HFA (PROVENTIL HFA, VENTOLIN HFA) 90 mcg/actuation inhaler Inhale 2 Puffs as instructed every 4 hours as needed for wheezing/shortness of breath. No current facility-administered medications for this visit. FAMILY HISTORY Problem Relation Age of Onset Heart Mother Diabetes Mother Hypertension Mother Arthritis Mother Heart Father Arthritis Father Cancer Maternal Grandmother stomach cancer. Social History Tobacco Use Smoking status: Every Day Current packs/day: 0.50 Average packs/day: 0.5 packs/day for 20.0 years (10.0 ttl pk-yrs) Types: Cigarettes Smokeless tobacco: Never Substance Use Topics Alcohol use: Yes Comment: occ Drug use: No EXAM: BP 124/76 Pulse 91 Temp 36.1 ?C (97 ?F) (Left Tympanic) Wt 95.3 kg (210 lb) LMP 07/03/2024 (Within Days) SpO2 96% BMI 36.05 kg/m? PHYSICAL EXAM: Physical Exam Vitals reviewed. Constitutional: Appearance: Normal appearance. She is obese. Cardiovascular: Rate and Rhythm: Normal rate and regular rhythm. Pulses: Normal pulses. Heart sounds: Normal heart sounds. Pulmonary: Effort: Pulmonary effort is normal. Breath sounds: Normal breath sounds. Abdominal: General: Bowel sounds are normal. Palpations: Abdomen is soft. Tenderness: There is no abdominal tenderness. There is no guarding. Musculoskeletal: General: Normal range of motion. Comments: Walks w/o assistive device, moves all ext. Without difficulty Skin: General: Skin is warm and dry. Neurological: Mental Status: She is alert and oriented to person, place, and time. Psychiatric: Mood and Affect: Mood normal. Behavior: Beha (more content not included)... [facility] 08-09-2024 History of Present illness Narrative This is a 44 year old female who presents today with: Patient presents with: Diabetes: Medication follow up HISTORY OF PRESENT ILLNESS: Ginger Ching is a 44 year old female. Patient presents with: Diabetes: Medication follow up Wants to lose weight. Diabetes is not well controlled. HgA1c 8.8 % Weight up. BMI 36.05 Would like to try Ozempic for both. No Hx of thyroid cancer or pancreatitis. Discussed risks of constipation, belching, and slowing of motility. Uses CGM- average about 225 Fibromyalgia- hurts constantly Legs and feet hurting Would like to come off gabapentin, not helping PAST MEDICAL HISTORY: PAST MEDICAL HISTORY Diagnosis Date Anxiety 12/29/2012 [...] Percocet [Oxycodone-Acetaminophen], and Zyrtec [Cetirizine Hcl] MEDICATIONS Current Outpatient Medications Medication Sig insulin lispro (ADMELOG SOLOSTAR U-100 INSULIN) 100 unit/mL Inject 12 units with meals (TID) plus SS #1 (1 for 50 over 150 pre meal blood sugar) TDD 50 units (Patient taking differently: Inject 8 units with meals (TID) plus SS #1 (1 for 50 over 150 pre meal blood sugar) TDD 50 units) Insulin [place], Disposable, (SURE-FINE PEN NEEDLES) 31 gauge x 3/16 Daily injections - USES 4 pen needles daily with insulin ergocalciferol 50,000 unit capsule (VITAMIN D2, DRISDOL) Take 1 capsule by mouth one time a week. gabapentin (NEURONTIN) 800 mg tablet Take 1 tablet by mouth three times a day for 180 days. insulin glargine (LANTUS SOLOSTAR U-100 INSULIN) 100 unit/mL (3 mL) Inject 50 Units subcutaneously daily at bedtime. STIOLTO RESPIMAT 2.5-2.5 mcg/actuation inhaler Inhale 2 Puffs as instructed once daily. linaGLIPtin (TRADJENTA) 5 mg tab Take 1 tablet by mouth once daily. DULoxetine (CYMBALTA) 30 mg capsule Take 1 capsule by mouth once daily. Lancets Test blood sugar(s) two times daily. Dx: E11.65. Insulin: Yes blood sugar diagnostic (BLOOD GLUCOSE TEST) test strip Test blood sugar(s) 2 times daily. Dx: Type 2 DM - Uncontrolled E11.65 Insulin: Yes Blood-Glucose Meter,Continuous (FREESTYLE ANA 3 READER) [facility] Use to check blood sugar at least four (4) times daily. Blood-Glucose Sensor (FREESTYLE ANA 3 SENSOR) natalia Apply new sensor every fourteen (14) days to upper arm. empagliflozin (JARDIANCE) 25 mg tablet Take 1 tablet by mouth daily with breakfast. atorvastatin (LIPITOR) 20 mg tablet Take 1 tablet by mouth once daily. levonorgestrel (MIRENA) 21 mcg/24 hr (8 yrs) 52 mg IUD 1 Each by INTRAUTERINE route as directed. albuterol HFA (PROVENTIL HFA, VENTOLIN HFA) 90 mcg/actuation inhaler Inhale 2 Puffs as instructed every 4 hours as needed for wheezing/shortness of breath. No current facility-administered medications for this visit. FAMILY HISTORY Problem Relation Age of Onset Heart Mother Diabetes Mother Hypertension Mother Arthritis Mother Heart Father Arthritis Father Cancer Maternal Grandmother stomach cancer. Social History Tobacco Use Smoking status: Every Day Current packs/day: 0.50 Average packs/day: 0.5 packs/day for 20.0 years (10.0 ttl pk-yrs) Types: Cigarettes Smokeless tobacco: Never Substance Use Topics Alcohol use: Yes Comment: [facility] Drug use: No EXAM: BP 124/76 Pulse 91 Temp 36.1 C (97 F) (Left Tympanic) Wt 95.3 kg (210 lb) LMP 07/03/2024 (Within Days) SpO2 96% BMI 36.05 kg/m PHYSICAL EXAM: Physical Exam Vitals reviewed. Constitutional: Appearance: Normal appearance. She is obese. Cardiovascular: Rate and Rhythm: Normal rate and regular rhythm. Pulses: Normal pulses. Heart sounds: Normal heart sounds. Pulmonary: Effort: Pulmonary effort is normal. Breath sounds: Normal breath sounds. Abdominal: General: Bowel sounds are normal. Palpations: Abdomen is soft. Tenderness: There is no abdominal tenderness. There is no guarding. Musculoskeletal: General: Normal range of motion. Comments: Walks w/o assistive device, moves all ext. Without difficulty Skin: General: Skin is warm and dry. Neurological: Mental Status: She is alert and oriented to person, place, and time. Psychiatric: Mood and Affect: Mood normal. Behavior: Behavior normal. LABS: ASSESSMENT/PLAN: 1. Type 2 diabetes mellitus with hyperglycemia, with long-term current use of insulin (HCC) - ICD9: 250.00, 790.29, V58.67, ICD10: E11.65, Z79.4 (primary diagnosis) - Uncontrolled - Start semaglutide (Ozempic) - SEMAGLUTIDE 0.25 MG OR 0.5 MG (2 MG/3 ML) SUBCUTANEOUS PEN INJECTOR 2. Encounter for immunization - ICD9: V03.89, ICD10: Z23 - HEP B VACCINE, 3-DOSE, AGE 20+ YR (ENGERIX-B, RECOMBIVAX HB) - HEP B VACCINE, 3-DOSE, AGE 20+ YR (ENGERIX-B, RECOMBIVAX HB) - HEP B VACCINE, 3-DOSE, AGE 20+ YR (ENGERIX-B, RECOMBIVAX HB) 3. Essential hypertension - ICD9: 401.9, ICD10: I10 - Controlled - Recommend home blood pressure monitoring, to bring results to next visit - Encouraged sodium restriction, DASH or Mediterranean diet - Recommend regular aerobic exercise 4. Chronic obstructive pulmonary disease with acute lower respiratory infection (HCC) - ICD9: 496, 519.8, ICD10: J44.0 Stable 5. Mixed hyperlipidemia - ICD9: 272.2, ICD10: E78.2 - Controlled - Counseled on healthy diet and regular exercise 6. Current moderate episode of major depressive disorder without prior episode (HCC) - ICD9: 296.22, ICD10: F32.1 Stable 7. Fibromyalgia - ICD9: 729.1, ICD10: M79.7 Switch gabapentin to Lyrica 100 mg 2 x day - PREGABALIN 100 MG CAPSULE 8. Neuropathic pain - ICD9: 729.2, ICD10: M79.2 Switch gabapentin to Lyrica 100 mg 2 x day - PREGABALIN 100 MG CAPSULE Discussed treatment plan and patient voices understanding. Patient's questions answered appropriately. Medications and potential side effects were discussed and patient voices understanding. Return to the office as scheduled or as needed for worsening/no improvement. Lazara Melendez APRN.CNP documented in this encounter [facility] 07-14-2024 Telephone encounter Note Please call patient. Her antibodies are negative She is confirmed TYPE 2 diabetes - this is managed with lifestyle modifications - diet, exercise, weight loss AND medications. I would like for her to see the ENDO SOLAR SALES ESTIMATOR (milton conway) CONSULT placed for her [facility] 07-14-2024 Miscellaneous Notes Please call patient. Her antibodies are negative She is confirmed TYPE 2 diabetes - this is managed with lifestyle modifications - diet, exercise, weight loss AND medications. I would like for her to see the ENDO SOLAR SALES ESTIMATOR (milton conway) CONSULT placed for her documented in this encounter [facility] 07-11-2024 Instructions Adrienne Locke APRN.CNP - 07/11/2024 1:37 PM EDT LANTUS INJECT 50 units once daily ADMELOG Inject 12 units with meals PLUS SS (pre meal blood sugar) Sliding Scale Insulin Dosing Sliding Scale 1 (1 unit for every 50 mg/dL > 150 mg/dL) SUPPLEMENTAL INSULIN If Blood Glucose (mg/dL) is < 150 Give 0 units 151-200 Give 1 unit 201-250 Give 2 units 251-300 Give 3 units 301-350 Give 4 units 351-400 Give 5 units >400 Give 6 units, call physician if blood glucose does not improve. documented in this encounter [facility] 07-11-2024 History of Present illness Narrative Images from the original note were not included. NEW CONSULT OFFICE PROGRESS NOTE Reason for Consultation: DM Type 2 Referring Physician: SELF My final recommendations will be communicated back to the requesting physician by way of shared Medical record or letter via US mail. HISTORY OF PRESENT ILLNESS; Ginger Ching is a 43 year old FEMALE is presenting as a new patient to me regarding DM Type 2. She was initially diagnosed with diabetes in 12+ years (2010). Reports had COVYAIMA 3 times [place] that she was able to control her blood sugars in the past, but since COVYAIMA has noticed that her blood sugars are much more uncontrolled without any changes in diet/activity She does have a family history of diabetes mellitus in her Mother, maternal grandparents, uncles (All DM2) . Patient does not know her biological father nor health hx The patient has no known microvascular complications of diabetes. Ginger has no know macrovascular complications of diabetes.. DM Education No Knows how to carb count No DIETARY HISTORY: Breakfast: SKIP and will have a cup of coffee ICE COFFEE SWEETENED (pre made ice cofffee) Lunch if hungry will snack on toast OR fruit (KIWI OR CANTELOPE) will occ have watermellon, usually strawberries will have diet soda OR bagel Dinner has diet soda and will have spaghetti OR PIZZA OR will cook protein/starch (chicken mashed potatoe w corn usually no vegetables, will have green beans or corn, sometimes brocolli Snacks may have a small portion of chips or popcorn Drinks coffee, diet soda, has one glass of water daily at bedtime Exercise: takes care of her disabled daughter CURRENT DM MEDS JARDIANCE 25 mcg daily LANTUS 50 units TRADJENTA 5 mg 1 tab daily Previous TRULICITY, - muscle pain in arms SMBG Type of Monitor: Other FREESTYLE ANA 3 Hypoglycemia: no Diet: as per above Exercise: none DM REVIEW OF SYSTEMS Last Eye Exam : due Last Podiatry Exam: Cardiorespiratory: negative, denies chest pain, pressure Claudication: no Dyslipidemia: Yes, controlled on medication High Blood Pressure: Yes, controlled on medication CURRENT LABS Latest Ref Rng 12/15/2023 06/12/2024 Glucose 74 - 99 mg/dL 225 (H) BUN 7 - 21 mg/dL 13 Creatinine 0.58 - 0.96 mg/dL 0.58 Sodium 136 - 144 mmol/L 138 Potassium 3.7 - 5.1 mmol/L 4.7 Chloride 98 - 107 mmol/L 103 CO2 22 - 30 mmol/L 24 Anion Gap 8 - 15 mmol/L 11 eGFR >=60 mL/min/1.73m 115 Total Cholesterol, Nonfasting <200 mg/dL 161 Triglycerides, Nonfasting <150 mg/dL 113 HDL Cholesterol, Nonfasting >39 mg/dL 36 (L) LDL Cholesterol, Nonfasting <100 mg/dL 102 (H) Non HDL Cholesterol, Nonfasting <130 mg/dL 125 VLDL Cholesterol, Nonfasting <30 mg/dL 23 Total Chol/HDL Ratio, Nonfasting <5.10 mg/dL 4.47 LDL/HDL Ratio, Nonfasting <2.54 mg/dL 2.83 (H) Creatinine, Ur Random (UCRR) 20.0 - 300.0 mg/dL 163.1 Albumin, Urine Random mg/L 65.0 Albumin/Creat Ratio <30 mg/g 40 (H) Hemoglobin A1C 4.3 - 5.6 % 10.4 (H) 8.8 (H) Estimated Average Glucose mg/dL 252 206 Vitamin B12 232 - 1,245 pg/mL 396 Magnesium 1.7 - 2.3 mg/dL 2.0 TSH 0.270 - 4.200 mIU/L 0.584 Vitamin D 25 Hydroxy 31.0 - 80.0 ng/mL 11.2 (L) Legend: (H) High (L) Low Recent Labs 07/26/17 1701 10/24/17 1126 05/16/18 1257 04/27/22 0917 04/27/22 0924 07/01/22 1139 12/15/23 1335 06/12/24 1423 06/12/24 1425 ALT -- 19 < > 10 -- 18 12 17 -- AST -- 18 < > 16 -- 16 17 -- UCRR 152.2 -- -- -- 54.7 -- -- -- 163.1 UALBR 15.9 -- -- -- 27.7 -- -- -- 65.0 UALBCR 10 -- -- -- 51* -- -- -- 40* TSH -- 0.711 -- -- -- -- 0.245* 0.584 -- TPROT -- 7.3 < > 8.3* -- 7.4 7.1 7.0 -- ALB -- 3.7* < > 2.9* -- 3.7* 3.8* 3.9 -- CA -- 9.2 < > 9.5 -- 9.2 10.0 8.9 -- TBILI -- <0.2* < > 0.2 -- 0.2 0.2 0.3 -- ALKPHOS -- 110 < > 208* -- 93 103 96 -- GLUC -- 416* < > 494* -- 149* 395* 225* -- BUN -- 10 < > 12 -- 18 18 13 -- CREAT -- 0.60 < > 0.87 -- 0.72 0.86 0.58 -- NA -- 135* < > 132* -- 138 137 138 -- K -- 4.4 < > 4.9 -- 3.7 5.0 4.7 -- CHLOR -- 101 < > 95* -- 104 99 103 -- CO2 -- 20* < > 27 -- 23 25 24 -- ANION -- 14 < > 10 -- 11 13 11 -- EGFROTH -- >60 < > 86 -- 108 86 115 -- HBA1C -- 10.0* < > 10.0* -- -- 10.4* 8.8* -- B12 -- -- -- -- -- -- -- 396 -- < > = values in this interval not displayed. Recent Labs 10/24/17 1126 05/16/18 1257 05/01/19 0627 05/09/19 1608 03/29/20 0818 07/03/20 0943 04/27/22 0917 12/15/23 1335 06/12/24 1423 TG 171* -- 187* -- 185* -- -- 220* 113 CHOL 161 -- 146 -- 182 -- -- 173 161 HDL 23* -- 23* -- 27* -- -- 27* 36* VLDL 34* -- 37* -- 37* -- -- 44* 23 LDL 104* -- 86 -- 118* -- -- 102* 102* FASTTIME 10 -- Unknown -- 12 -- -- -- -- TCHDL 7.00* -- 6.35* -- 6.74* -- -- 6.41* 4.47 LDLHDL 4.52* -- 3.74* -- 4.37* -- -- 3.78* 2.83* NONHDL 138* -- 123 -- 155* -- -- 146* 125 HBA1C 10.0* < > -- < > 10.6* < > 10.0* 10.4* 8.8* HBA0 240 < > -- < > 258 < > 240 252 206 B12 -- -- -- -- -- -- -- -- 396 < > = values in this interval not displayed. PAST MEDICAL HISTORY Diagnosis Date Anxiety 12/29/2012 [...] FLP TUBE ABDL/VAG APPR UNI/BI Tubal ligation FAMILY HISTORY Problem Relation Age of Onset Heart Mother Diabetes Mother Hypertension Mother Arthritis Mother Heart Father Arthritis Father Cancer Maternal Grandmother stomach cancer. Social History Tobacco Use Smoking status: Every Day Current packs/day: 0.50 Average packs/day: 0.5 packs/day for 20.0 years (10.0 ttl pk-yrs) Types: Cigarettes Smokeless tobacco: Never Substance Use Topics Alcohol use: Yes Comment: occ Drug use: No Current Outpatient Medications Medication Sig ergocalciferol 50,000 unit capsule (VITAMIN D2, DRISDOL) Take 1 capsule by mouth one time a week. gabapentin (NEURONTIN) 800 mg tablet Take 1 tablet by mouth three times a day for 180 days. insulin glargine (LANTUS SOLOSTAR U-100 INSULIN) 100 unit/mL (3 mL) Inject 50 Units subcutaneously daily at bedtime. STIOLTO RESPIMAT 2.5-2.5 mcg/actuation inhaler Inhale 2 Puffs as instructed once daily. linaGLIPtin (TRADJENTA) 5 mg tab Take 1 tablet by mouth once daily. DULoxetine (CYMBALTA) 30 mg capsule Take 1 capsule by mouth once daily. tiZANidine (ZANAFLEX) 4 mg tablet Take 1 tablet by mouth every 8 hours as needed (muscle spasms). Lancets Test blood sugar(s) two times daily. Dx: E11.65. Insulin: Yes blood sugar diagnostic (BLOOD GLUCOSE TEST) test strip Test blood sugar(s) 2 times daily. Dx: Type 2 DM - Uncontrolled E11.65 Insulin: Yes flash glucose scanning reader (FREESTYLE ANA 2 READER) 1 Each every hour as needed. Blood-Glucose Meter,Continuous (FREESTYLE ANA 3 READER) [facility] Use to check blood sugar at least four (4) times daily. Blood-Glucose Sensor (FREESTYLE ANA 3 SENSOR) natalia Apply new sensor every fourteen (14) days to upper arm. empagliflozin (JARDIANCE) 25 mg tablet Take 1 tablet by mouth daily with breakfast. atorvastatin (LIPITOR) 20 mg tablet Take 1 tablet by mouth once daily. flash glucose sensor (FREESTYLE ANA 2 SENSOR) kit 2 Each three times a day as needed. levonorgestrel (MIRENA) 21 mcg/24 hr (8 yrs) 52 mg IUD 1 Each by INTRAUTERINE route as directed. albuterol HFA (PROVENTIL HFA, VENTOLIN HFA) 90 mcg/actuation inhaler Inhale 2 Puffs as instructed every 4 hours as needed for wheezing/shortness of breath. Insulin [place], Disposable, (SURE-FINE PEN NEEDLES) 31 gauge x 3/16 Daily injections No current facility-administered medications for this visit. ALLERGIES Allergen Reactions Cats Hives, Itching Dust environmental Grass Pollen Itching Acetaminophen GI Upset Cardizem [Diltiazem] GI Upset, Vomiting Percocet [Oxycodone* Vomiting Zyrtec [Cetirizine * Hives REVIEW OF SYSTEMS - POSITIVES IN BOLD GENERAL:No weight loss, malaise or fevers HEENT:Negative for frequent or significant headaches, No changes in hearing or vision, no nose bleeds or other nasal problems NECK:Negative for lumps, goiter, pain and significant neck swelling RESPIRATORY: Negative for cough, hemoptysis, wheezing, COPD, dyspnea or shortness of breath CARDIOVASCULAR: Negative for chest pain, leg swelling, hypertension, CHF or palpitations PHYSICAL EXAMINATION: BP 120/76 (BP Site: Right Arm, BP Position: Sitting, BP Cuff Size: Regular Adult) Pulse 78 Temp 36.6 C (97.8 F) (Temporal Artery) Wt 99.4 kg (219 lb 3.2 oz) LMP 07/03/2024 (Within Days) SpO2 96% BMI 37.63 kg/m General appearance: Well appearing, alert, in no acute distress, well-hydrated, well nourished. and Morbidly obese Skin: Skin color, texture, turgor normal, no suspicious rashes or lesions Head: Normocephalic, no masses, lesions, tenderness or abnormalities Eyes: MEREDITH Neck: thyroid symmetric to inspection Acanthosis: none noted Extremities: Edema: none Neuro: Negative., Oriented X 3 ASSESSMENT/PLAN (E11.65) Poorly controlled type 2 diabetes mellitus (HCC) (primary encounter diagnosis) Comment: CGM DOWNLOADED AND REVIEWED FOR OV RECOMMENDATIONS PER REVIEW FOLLOWS: Patient is compliant with CGM use and is benefiting from sensor use. Worsening control without changes in diet/activity Healthy meal planning handouts given to patient Patient is taking all her medications as rx'd Frustrated with her blood sugars, states has noticed since COVID that her BG control has significantly worsened. Will RULE OUT NIKOLAY status lanette as while maternal side is all DM2, patient does not know her biological father hx HOLLIS, ISLET Cell on way out Start meal insulin plus SS LANTUS INJECT 50 units once daily ADMELOG Inject 12 units with meals PLUS SS (pre meal blood sugar) Sliding Scale Insulin Dosing Sliding Scale 1 (1 unit for every 50 mg/dL > 150 mg/dL) SUPPLEMENTAL INSULIN If Blood Glucose (mg/dL) is < 150 Give 0 units 151-200 Give 1 unit 201-250 Give 2 units 251-300 Give 3 units 301-350 Give 4 units 351-400 Give 5 units >400 Give 6 units, call physician if blood glucose does not improve. Recommended diet: Low carbohydrate and Low saturated fat, low simple sugar, high fiber diet Exercise minimally 150 minutes per week, increase as tolerated. Adequate hydration - 1/2 body wgt in oz of water daily, unless fluid restriction applies. I instructed the patient to monitor blood sugars 4 times per day If blood sugars are persistently high or low, to call our office. Patient to continue to follow up with her PCP and with other consultants regarding her other medical problems. Plan: COMPREHENSIVE METABOLIC PANEL, LIPID PANEL, NONFASTING, ALBUMIN/CREATININE RATIO, URINE, HEMOGLOBIN A1C Adrienne Locke CNP Images from the original note were not included. documented in this encounter [facility] 07-11-2024 Note HNO ID: [id number] Author: ADRIENNE LOCKE APRN.CNP Service: ? Author Type: Nurse Practitioner Type: Progress Notes Filed: 07/11/2024 14:29 Note Text: NEW CONSULT OFFICE PROGRESS NOTE Reason for Consultation: DM Type 2 Referring Physician: SELF My final recommendations will be communicated back to the requesting physician by way of shared Medical record or letter via [place] mail. HISTORY OF PRESENT ILLNESS; Ginger Ching is a 43 year old FEMALE is presenting as a new patient to me regarding DM Type 2. She was initially diagnosed with diabetes in 12+ years (2010). Reports had COVID 3 times [place] that she was able to control her blood sugars in the past, but since [place] has noticed that her blood sugars are much more uncontrolled without any changes in diet/activity She does have a family history of diabetes mellitus in her Mother, maternal grandparents, uncles (All DM2) . Patient does not know her biological father nor health hx The patient has no known microvascular complications of diabetes. Ginger has no know macrovascular complications of diabetes.. DM Education No Knows how to carb count No DIETARY HISTORY: Breakfast: SKIP and will have a cup of coffee ICE COFFEE SWEETENED (pre made ice cofffee) Lunch if hungry will snack on toast OR fruit (KIWI OR CANTELOPE) will occ have watermellon, usually strawberries will have diet soda OR bagel Dinner has diet soda and will have spaghetti OR PIZZA OR will cook protein/starch (chicken mashed potatoe w corn usually no vegetables, will have green beans or corn, sometimes brocolli Snacks may have a small portion of chips or popcorn Drinks coffee, diet soda, has one glass of water daily at bedtime Exercise: takes care of her disabled daughter CURRENT DM MEDS JARDIANCE 25 mcg daily LANTUS 50 units TRADJENTA 5 mg 1 tab daily Previous TRULICITY, - muscle pain in arms SMBG Type of Monitor: Other [place] ANA 3 Hypoglycemia: no Diet: as per above Exercise: none DM REVIEW OF SYSTEMS Last Eye Exam : due Last Podiatry Exam: Cardiorespiratory: negative, denies chest pain, pressure Claudication: no Dyslipidemia: Yes, controlled on medication High Blood Pressure: Yes, controlled on medication CURRENT LABS Latest Ref Rng 12/15/2023 06/12/2024 Glucose 74 - 99 mg/dL 225 (H) BUN 7 - 21 mg/dL 13 Creatinine 0.58 - 0.96 mg/dL 0.58 Sodium 136 - 144 mmol/L 138 Potassium 3.7 - 5.1 mmol/L 4.7 Chloride 98 - 107 mmol/L 103 CO2 22 - 30 mmol/L 24 Anion Gap 8 - 15 mmol/L 11 eGFR >=60 mL/min/1.73m? 115 Total Cholesterol, Nonfasting <200 mg/dL 161 Triglycerides, Nonfasting <150 mg/dL 113 HDL Cholesterol, Nonfasting >39 mg/dL 36 (L) LDL Cholesterol, Nonfasting <100 mg/dL 102 (H) Non HDL Cholesterol, Nonfasting <130 mg/dL 125 VLDL Cholesterol, Nonfasting <30 mg/dL 23 Total Chol/HDL Ratio, Nonfasting <5.10 mg/dL 4.47 LDL/HDL Ratio, Nonfasting <2.54 mg/dL 2.83 (H) Creatinine, Ur Random (UCRR) 20.0 - 300.0 mg/dL 163.1 Albumin, Urine Random mg/L 65.0 Albumin/Creat Ratio <30 mg/g 40 (H) Hemoglobin A1C 4.3 - 5.6 % 10.4 (H) 8.8 (H) Estimated Average Glucose mg/dL 252 206 Vitamin B12 232 - 1,245 pg/mL 396 Magnesium 1.7 - 2.3 mg/dL 2.0 TSH 0.270 - 4.200 mIU/L 0.584 Vitamin D 25 Hydroxy 31.0 - 80.0 ng/mL 11.2 (L) Legend: (H) High (L) Low Recent Labs 07/26/17 1701 10/24/17 1126 05/16/18 1257 04/27/22 0917 04/27/22 0924 07/01/22 1139 12/15/23 1335 06/12/24 1423 06/12/24 1425 ALT -- 19 < > 10 -- 18 12 17 -- AST -- 18 < > 16 -- 18 16 17 -- UCRR 152.2 -- -- -- 54.7 -- -- -- 163.1 UALBR 15.9 -- -- -- 27.7 -- -- -- 65.0 UALBCR 10 -- -- -- 51* -- -- -- 40* TSH -- 0.711 -- -- -- -- 0.245* 0.584 -- TPROT -- 7.3 < > 8.3* -- 7.4 7.1 7.0 -- ALB -- 3.7* < > 2.9* -- 3.7* 3.8* 3.9 -- CA -- 9.2 < > 9.5 -- 9.2 10.0 8.9 -- TBILI -- <0.2* < > 0.2 -- 0.2 0.2 0.3 -- ALKPHOS -- 110 < > 208* -- 93 103 96 -- GLUC -- 416* < > 494* -- 149* 395* 225* -- BUN -- 10 < > 12 -- 18 18 13 -- CREAT -- 0.60 < > 0.87 -- 0.72 0.86 0.58 -- NA -- 135* < > 132* -- 138 137 138 -- K -- 4.4 < > 4.9 -- 3.7 5.0 4.7 -- CHLOR -- 101 < > 95* -- 104 99 103 -- CO2 -- 20* < > 27 -- 24 -- ANION -- 14 < > 10 -- 11 13 11 -- EGFROTH -- >60 < > 86 -- 108 86 115 -- HBA1C -- 10.0* < > 10.0* -- -- 10.4* 8.8* -- B12 -- -- -- -- -- -- -- 396 -- < > = values in this interval not displayed. Recent Labs 10/24/17 1126 05/16/18 1257 05/01/19 0627 05/09/19 1608 03/29/20 0818 07/03/20 0943 04/27/22 0917 12/15/23 1335 06/12/24 1423 TG 171* -- 187* -- 185* -- -- 220* 113 CHOL 161 -- 146 -- 182 -- -- 173 161 HDL 23* -- 23* -- 27* -- -- 27* 36* VLDL 34* -- 37* -- 37* -- -- 44* 23 LDL 104* -- 86 -- 118* -- -- 102* 102* FASTTIME 10 -- Unknown -- 12 -- -- -- -- TCHDL 7.00* -- 6.35* -- 6.74* -- -- 6.41* 4.47 LDLHDL 4.52* -- 3.74* -- 4.37* -- -- 3.78* 2.83* NONHDL 138* -- 123 -- 155* -- -- 146* 125 HBA1C 10 (more content not included)... [facility] 07-11-2024 Note HNO ID: [id number] Author: ISADORA QUINTERO MA Service: ? 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 Patient verbalizes understanding. Daja Nunez Ma [facility] 06-14-2024 Miscellaneous Notes Patient was made aware of the results. Patient verbalizes understanding. Daja Nunez Ma Please let patient know that her vitamin D level is very low at 11.2. I will have her take vitamin D3-ergocalciferol, once a week for 12 weeks and then once a month. This should help her body aches. Labs look much better and blood sugars are improving. Hemoglobin A1c now down to 8.8. I still want you to see endocrinology to help us further manage diabetes but you are doing great. Urine for microalbumin creatinine ratio is improving with Jardiance. documented in this encounter [facility] 06-14-2024 Telephone encounter Note Please let patient know that her vitamin D level is very low at 11.2. I will have her take vitamin D3-ergocalciferol, once a week for 12 weeks and then once a month. This should help her body aches. Labs look much better and blood sugars are improving. Hemoglobin A1c now down to 8.8. I still want you to see endocrinology to help us further manage diabetes but you are doing great. Urine for microalbumin creatinine ratio is improving with Jardiance. [facility] 06-12-2024 Instructions Lazara Melendez APRN.CNP - 06/12/2024 1:43 PM EST 1) Check labs today 2) Consult endocrinology 3) Increase Lantus to 50 units daily 4) Duloxetine 30 mg daily 5) Tizanidine 4 mg 3 x day as needed for pain between shoulder blades (may only tolerate 2 mg during day time d/t sleepiness). 6) Follow up in 6 months documented in this encounter [facility] 06-12-2024 Note HNO ID: [id number] Author: LAZARA MELENDEZ APRN.CNP Service: ? Author Type: Nurse Practitioner Type: Progress Notes Filed: 06/12/2024 13:48 Note Text: This is a 43 year old female who presents today with: Patient presents with: Follow Up: pneumonia HISTORY OF PRESENT ILLNESS: Ginger Ching is a 43 year old female. Patient presents with: Follow Up: pneumonia Last couple days, pain between shoulder blades. BSS running high. Glucometer quit working. 20-30 min. after eating 357; 250 before meals Uses CGM- very helpful but BSS doing better Takes gabapentin for neuropathy PAST MEDICAL HISTORY: PAST MEDICAL HISTORY Diagnosis Date Anxiety 12/29/2012 [...] Percocet [Oxycodone-Acetaminophen], and Zyrtec [Cetirizine Hcl] MEDICATIONS Current Outpatient Medications Medication Sig Lancets Test blood sugar(s) two times daily. Dx: E11.65. Insulin: Yes blood sugar diagnostic (BLOOD GLUCOSE TEST) test strip Test blood sugar(s) 2 times daily. Dx: Type 2 DM - Uncontrolled E11.65 Insulin: Yes flash glucose scanning reader (FREESTYLE ANA 2 READER) 1 Each every hour as needed. Blood-Glucose Meter,Continuous (FREESTYLE ANA 3 READER) misc Use to check blood sugar at least four (4) times daily. Blood-Glucose Sensor (FREESTYLE ANA 3 SENSOR) natalia Apply new sensor every fourteen (14) days to upper arm. empagliflozin (JARDIANCE) 25 mg tablet Take 1 tablet by mouth daily with breakfast. atorvastatin (LIPITOR) 20 mg tablet Take 1 tablet by mouth once daily. flash glucose sensor (FREESTYLE ANA 2 SENSOR) kit 2 Each three times a day as needed. gabapentin (NEURONTIN) 800 mg tablet Take 1 tablet by mouth three times a day for 90 days. insulin glargine (LANTUS SOLOSTAR U-100 INSULIN) 100 unit/mL (3 mL) Inject 40 Units subcutaneously daily at bedtime. linaGLIPtin (TRADJENTA) 5 mg tab Take 1 tablet by mouth once daily. levonorgestrel (MIRENA) 21 mcg/24 hr (8 yrs) 52 mg IUD 1 Each by INTRAUTERINE route as directed. STIOLTO RESPIMAT 2.5-2.5 mcg/actuation Inhale 2 Puffs as instructed once daily. albuterol HFA (PROVENTIL HFA, VENTOLIN HFA) 90 mcg/actuation inhaler Inhale 2 Puffs as instructed every 4 hours as needed for wheezing/shortness of breath. Insulin [place], Disposable, (SURE-FINE PEN NEEDLES) 31 gauge x 3/16 Daily injections No current facility-administered medications for this visit. FAMILY HISTORY Problem Relation Age of Onset Heart Mother Diabetes Mother Hypertension Mother Arthritis Mother Heart Father Arthritis Father Cancer Maternal Grandmother stomach cancer. Social History Tobacco Use Smoking status: Every Day Current packs/day: 0.50 Average packs/day: 0.5 packs/day for 20.0 years (10.0 ttl pk-yrs) Types: Cigarettes Smokeless tobacco: Never Substance Use Topics Alcohol use: Yes Comment: occ Drug use: No REVIEW OF SYSTEMS GENERAL: No weight loss, no malaise or fevers/ + chills HEENT: Negative for frequent or significant headaches, No changes in hearing or vision. NECK: Negative for lumps, goiter, pain and significant neck swelling RESPIRATORY: No change in cough, no hemoptysis, some wheezing, no dyspnea or shortness of breath CARDIOVASCULAR: Negative for chest pain, leg swelling, orthopnea, or palpitations GI: No nausea, vomiting, or diarrhea/constipation. No hematochezia/melena. No heartburn or reflux symptoms. : No history of dysuria, frequency or incontinence MUSCULOSKELETAL: Negative for joint pain or swelling. SKIN: Negative for lesions, rash, and itching ENDOCRINE: Negative for cold or heat intolerance, + polyuria, some polydipsia and goiter NEURO: No history of headaches, syncope, paralysis, seizures or tremors MOOD: Negative for depression, anxiety, or suicidal ideation. Sad. EXAM: BP 128/70 Pulse 89 Temp 36.9 ?C (98.4 ?F) (Right Tympanic) Wt 99.8 kg (220 lb) LMP 05/09/2024 (Within Days) SpO2 97% BMI 37.76 kg/m? PHYSICAL EXAM: Physical Exam Vitals reviewed. Constitutional: Appearance: Normal appearance. HENT: Head: Normocephalic. Cardiovascular: Rate and Rhythm: Normal rate and regular rhythm. Pulses: Normal pulses. Heart sounds: Normal heart sounds. Pulmonary: Effort: Pulmonary effort is normal. Breath sounds: Normal breath sounds. Abdominal: General: Bowel (more content not included)... [facility] 06-12-2024 History of Present illness Narrative This is a 43 year old female who presents today with: Patient presents with: Follow Up: pneumonia HISTORY OF PRESENT ILLNESS: Ginger Ching is a 43 year old female. Patient presents with: Follow Up: pneumonia Last couple days, pain between shoulder blades. BSS running high. Glucometer quit working. 20-30 min. after eating 357; 250 before meals Uses CGM- very helpful but BSS doing better Takes gabapentin for neuropathy PAST MEDICAL HISTORY: PAST MEDICAL HISTORY Diagnosis Date Anxiety 12/29/2012 [...] Percocet [Oxycodone-Acetaminophen], and Zyrtec [Cetirizine Hcl] MEDICATIONS Current Outpatient Medications Medication Sig Lancets Test blood sugar(s) two times daily. Dx: E11.65. Insulin: Yes blood sugar diagnostic (BLOOD GLUCOSE TEST) test strip Test blood sugar(s) 2 times daily. Dx: Type 2 DM - Uncontrolled E11.65 Insulin: Yes flash glucose scanning reader (FREESTYLE ANA 2 READER) 1 Each every hour as needed. Blood-Glucose Meter,Continuous (FREESTYLE ANA 3 READER) misc Use to check blood sugar at least four (4) times daily. Blood-Glucose Sensor (FREESTYLE ANA 3 SENSOR) natalia Apply new sensor every fourteen (14) days to upper arm. empagliflozin (JARDIANCE) 25 mg tablet Take 1 tablet by mouth daily with breakfast. atorvastatin (LIPITOR) 20 mg tablet Take 1 tablet by mouth once daily. flash glucose sensor (FREESTYLE ANA 2 SENSOR) kit 2 Each three times a day as needed. gabapentin (NEURONTIN) 800 mg tablet Take 1 tablet by mouth three times a day for 90 days. insulin glargine (LANTUS SOLOSTAR U-100 INSULIN) 100 unit/mL (3 mL) Inject 40 Units subcutaneously daily at bedtime. linaGLIPtin (TRADJENTA) 5 mg tab Take 1 tablet by mouth once daily. levonorgestrel (MIRENA) 21 mcg/24 hr (8 yrs) 52 mg IUD 1 Each by INTRAUTERINE route as directed. STIOLTO RESPIMAT 2.5-2.5 mcg/actuation Inhale 2 Puffs as instructed once daily. albuterol HFA (PROVENTIL HFA, VENTOLIN HFA) 90 mcg/actuation inhaler Inhale 2 Puffs as instructed every 4 hours as needed for wheezing/shortness of breath. Insulin [place], Disposable, (SURE-FINE PEN NEEDLES) 31 gauge x 3/16 Daily injections No current facility-administered medications for this visit. FAMILY HISTORY Problem Relation Age of Onset Heart Mother Diabetes Mother Hypertension Mother Arthritis Mother Heart Father Arthritis Father Cancer Maternal Grandmother stomach cancer. Social History Tobacco Use Smoking status: Every Day Current packs/day: 0.50 Average packs/day: 0.5 packs/day for 20.0 years (10.0 ttl pk-yrs) Types: Cigarettes Smokeless tobacco: Never Substance Use Topics Alcohol use: Yes Comment: occ Drug use: No REVIEW OF SYSTEMS GENERAL: No weight loss, no malaise or fevers/ + chills HEENT: Negative for frequent or significant headaches, No changes in hearing or vision. NECK: Negative for lumps, goiter, pain and significant neck swelling RESPIRATORY: No change in cough, no hemoptysis, some wheezing, no dyspnea or shortness of breath CARDIOVASCULAR: Negative for chest pain, leg swelling, orthopnea, or palpitations GI: No nausea, vomiting, or diarrhea/constipation. No hematochezia/melena. No heartburn or reflux symptoms. : No history of dysuria, frequency or incontinence MUSCULOSKELETAL: Negative for joint pain or swelling. SKIN: Negative for lesions, rash, and itching ENDOCRINE: Negative for cold or heat intolerance, + polyuria, some polydipsia and goiter NEURO: No history of headaches, syncope, paralysis, seizures or tremors MOOD: Negative for depression, anxiety, or suicidal ideation. Sad. EXAM: BP 128/70 Pulse 89 Temp 36.9 C (98.4 F) (Right Tympanic) Wt 99.8 kg (220 lb) LMP 05/09/2024 (Within Days) SpO2 97% BMI 37.76 kg/m PHYSICAL EXAM: Physical Exam Vitals reviewed. Constitutional: Appearance: Normal appearance. HENT: Head: Normocephalic. Cardiovascular: Rate and Rhythm: Normal rate and regular rhythm. Pulses: Normal pulses. Heart sounds: Normal heart sounds. Pulmonary: Effort: Pulmonary effort is normal. Breath sounds: Normal breath sounds. Abdominal: General: Bowel sounds are normal. Palpations: Abdomen is soft. Tenderness: There is no abdominal tenderness. There is no guarding or rebound. Musculoskeletal: General: Normal range of motion. Comments: Feet numb Walks w/o assistive device Pressure felt but not sharp pain during foot checks. No open sores. DP 1+ robbi Skin: General: Skin is warm and dry. Neurological: Mental Status: She is alert and oriented to person, place, and time. Psychiatric: Mood and Affect: Mood normal. Behavior: Behavior normal. LABS: check labs ASSESSMENT/PLAN: 1. Neuropathic pain - ICD9: 729.2, ICD10: M79.2 (primary diagnosis) Ongoing - DULOXETINE 30 MG CAPSULE,DELAYED RELEASE restart - COMPLETE BLOOD COUNT AND DIFFERENTIAL - COMPREHENSIVE METABOLIC PANEL - VITAMIN B12 - MAGNESIUM - THYROID STIMULATING HORMONE - VITAMIN D 25 HYDROXY 2. Type 2 diabetes mellitus with hyperglycemia, with long-term current use of insulin (HCC) - ICD9: 250.00, 790.29, V58.67, ICD10: E11.65, Z79.4 - Uncontrolled - Increase Lantus to 50 units and refer to endocrinology - LANTUS SOLOSTAR U-100 INSULIN 100 UNIT/ML (3 ML) SUBCUTANEOUS PEN - CONSULT TO ENDOCRINOLOGY - TRADJENTA 5 MG TABLET - ALBUMIN/CREATININE RATIO, URINE - HEMOGLOBIN A1C - COMPLETE BLOOD COUNT AND DIFFERENTIAL 3. Fibromyalgia - ICD9: 729.1, ICD10: M79.7 Onging - DULOXETINE 30 MG CAPSULE,DELAYED RELEASE - VITAMIN B12 - VITAMIN D 25 HYDROXY 4. Essential hypertension - ICD9: 401.9, ICD10: I10 - Controlled - Recommend home blood pressure monitoring, to bring results to next visit - Encouraged sodium restriction, DASH or Mediterranean diet - Recommend regular aerobic exercise - COMPLETE BLOOD COUNT AND DIFFERENTIAL - VITAMIN D 25 HYDROXY 5. Mixed hyperlipidemia - ICD9: 272.2, ICD10: E78.2 - Control undetermined, due for labs - Counseled on healthy diet and regular exercise - COMPLETE BLOOD COUNT AND DIFFERENTIAL - LIPID PANEL, NONFASTING - VITAMIN D 25 HYDROXY 6. Degeneration of intervertebral disc of lumbar region with discogenic back pain and lower extremity pain - ICD9: 722.52, ICD10: M51.362 Ongoing - COMPLETE BLOOD COUNT AND DIFFERENTIAL - VITAMIN D 25 HYDROXY 7. Chronic obstructive pulmonary disease with acute lower respiratory infection (HCC) - ICD9: 496, 519.8, ICD10: J44.0 Stable on inhaler - STIOLTO RESPIMAT 2.5 MCG-2.5 MCG/ACTUATION SOLUTION FOR INHALATION - VITAMIN D 25 HYDROXY 8. Current moderate episode of major depressive disorder without prior episode (HCC) - ICD9: 296.22, ICD10: F32.1 Ongoing, starting back on duloxetine 9. Discogenic thoracic pain - ICD9: 724.1, ICD10: M51.34 New, start tizanidine 3 x day as needed - TIZANIDINE 4 MG TABLET - VITAMIN D 25 HYDROXY 10. Vitamin D deficiency - ICD9: 268.9, ICD10: E55.9 Check level - VITAMIN D 25 HYDROXY Discussed treatment plan and patient voices understanding. Patient's questions answered appropriately. Medications and potential side effects were discussed and patient voices understanding. Return to the office as scheduled or as needed for worsening/no improvement. Lazara Melendez APRN.CNP documented in this encounter [facility] 05-29-2024 Instructions Lazara Melendez APRN.CNP - 05/29/2024 3:09 PM EST - AZITHROMYCIN 250 MG TABLET f2 today then 1 daily for 4 more days - DOXYCYCLINE HYCLATE 100 MG CAPSULE 2 x day for 10 days - Ana 3 meter and strips requested - Will get labs at next aptpt. documented in this encounter [facility] 05-29-2024 Note HNO ID: [id number] Author: LAZARA MELENDEZ APRN.CNP Service: ? Author Type: Nurse Practitioner Type: Progress Notes Filed: 05/29/2024 15:10 Note Text: This is a 43 year old female who presents today with: Patient presents with: Follow Up HISTORY OF PRESENT ILLNESS: Ginger Ching is a 43 year old female. Patient presents with: Follow Up Depression, pretty bad Loss of appetite Not sleeping Feeling tired + cough CGM Meter got wet so can't test, could go ahead and switch now to the Ana 3 DM: Reports overall feeling well. Medication side effects: No. Home sugar checks: Unable Hypoglycemic spells: Uncertain. Watching diet: Not eating. Unexpected weight loss: No. Polyuria, polydipsia: Yes. Vision Changes: No. Foot lesions or numbness or pain: Yes. Neuropathy PAST MEDICAL HISTORY: PAST MEDICAL HISTORY Diagnosis Date Anxiety 12/29/2012 [...] Percocet [Oxycodone-Acetaminophen], and Zyrtec [Cetirizine Hcl] MEDICATIONS Current Outpatient Medications Medication Sig flash glucose scanning reader (FREESTYLE ANA 2 READER) 1 Each every hour as needed. empagliflozin (JARDIANCE) 25 mg tablet Take 1 tablet by mouth daily with breakfast. atorvastatin (LIPITOR) 20 mg tablet Take 1 tablet by mouth once daily. flash glucose sensor (FREESTYLE ANA 2 SENSOR) kit 2 Each three times a day as needed. gabapentin (NEURONTIN) 800 mg tablet Take 1 tablet by mouth three times a day for 90 days. insulin glargine (LANTUS SOLOSTAR U-100 INSULIN) 100 unit/mL (3 mL) Inject 40 Units subcutaneously daily at bedtime. linaGLIPtin (TRADJENTA) 5 mg tab Take 1 tablet by mouth once daily. levonorgestrel (MIRENA) 21 mcg/24 hr (8 yrs) 52 mg IUD 1 Each by INTRAUTERINE route as directed. STIOLTO RESPIMAT 2.5-2.5 mcg/actuation Inhale 2 Puffs as instructed once daily. albuterol HFA (PROVENTIL HFA, VENTOLIN HFA) 90 mcg/actuation inhaler Inhale 2 Puffs as instructed every 4 hours as needed for wheezing/shortness of breath. Insulin [place], Disposable, (SURE-FINE PEN NEEDLES) 31 gauge x 3/16 Daily injections blood sugar diagnostic (BLOOD GLUCOSE TEST) test strip Test blood sugar(s) 2 times daily. Dx: Type 2 DM - Uncontrolled E11.65 Insulin: Yes Lancets lancets Test blood sugar(s) two times daily. Dx: E11.65. Insulin: Yes metoprolol succinate ER (TOPROL XL) 25 mg 24 hr tablet Take 25 mg by mouth once daily. (Patient not taking: Reported on 05/29/2024) DULoxetine (CYMBALTA) 40 mg cpDR Take 1 capsule by mouth once daily. (Patient not taking: Reported on 05/29/2024) fluconazole (DIFLUCAN) 150 mg tablet Take immediately and repeat in 3 days as needed. (Patient not taking: Reported on 05/15/2024) No current facility-administered medications for this visit. FAMILY HISTORY Problem Relation Age of Onset Heart Mother Diabetes Mother Hypertension Mother Arthritis Mother Heart Father Arthritis Father Cancer Maternal Grandmother stomach cancer. Social History Tobacco Use Smoking status: Every Day Current packs/day: 0.50 Average packs/day: 0.5 packs/day for 20.0 years (10.0 ttl pk-yrs) Types: Cigarettes Smokeless tobacco: Never Substance Use Topics Alcohol use: Yes Comment: occ Drug use: No EXAM: BP 126/72 Pulse 89 Ht 162.6 cm (5' 4) Wt 99.3 kg (219 lb) LMP 05/09/2024 (Within Days) SpO2 97% BMI 37.59 kg/m? PHYSICAL EXAM: Physical Exam Vitals reviewed. Constitutional: Appearance: She is ill-appearing. Cardiovascular: Rate and Rhythm: Normal rate and regular rhythm. Pulses: Normal pulses. Heart sounds: Normal heart sounds. Pulmonary: Effort: Pulmonary effort is normal. Breath sounds: No wheezing, rhonchi or rales. Comments: RUL absent, no rhonchi or wheezing Dry cough Abdominal: Palpations: Abdomen is soft. Tenderness: There is abdominal tenderness. There is no guarding. Musculoskeletal: General: Normal range of motion. Right lower leg: No edema. Left lower leg: No edema. Skin: General: Skin is warm and dry. Neurological: Mental Status: She is alert and oriented to person, place, and time. Psychiatric: Comments: Very flat affect, depressed LABS: ASSESSMENT/PLAN: 1. Bacterial pneumonia - ICD9: 482.9, ICD10: J15.9 (primary diagnosis) Recheck after treatment - AZITHROMYCIN 250 MG TABLET for 5 days - D (more content not included)... [facility] 05-29-2024 History of Present illness Narrative This is a 43 year old female who presents today with: Patient presents with: Follow Up HISTORY OF PRESENT ILLNESS: Ginger Ching is a 43 year old female. Patient presents with: Follow Up Depression, pretty bad Loss of appetite Not sleeping Feeling tired + cough CGM Meter got wet so can't test, could go ahead and switch now to the Ana 3 DM: Reports overall feeling well. Medication side effects: No. Home sugar checks: Unable Hypoglycemic spells: Uncertain. Watching diet: Not eating. Unexpected weight loss: No. Polyuria, polydipsia: Yes. Vision Changes: No. Foot lesions or numbness or pain: Yes. Neuropathy PAST MEDICAL HISTORY: PAST MEDICAL HISTORY Diagnosis Date Anxiety 12/29/2012 [...] Percocet [Oxycodone-Acetaminophen], and Zyrtec [Cetirizine Hcl] MEDICATIONS Current Outpatient Medications Medication Sig flash glucose scanning reader (Carbay ANA 2 READER) 1 Each every hour as needed. empagliflozin (JARDIANCE) 25 mg tablet Take 1 tablet by mouth daily with breakfast. atorvastatin (LIPITOR) 20 mg tablet Take 1 tablet by mouth once daily. flash glucose sensor (CampalystSTYLE ANA 2 SENSOR) kit 2 Each three times a day as needed. gabapentin (NEURONTIN) 800 mg tablet Take 1 tablet by mouth three times a day for 90 days. insulin glargine (LANTUS SOLOSTAR U-100 INSULIN) 100 unit/mL (3 mL) Inject 40 Units subcutaneously daily at bedtime. linaGLIPtin (TRADJENTA) 5 mg tab Take 1 tablet by mouth once daily. levonorgestrel (MIRENA) 21 mcg/24 hr (8 yrs) 52 mg IUD 1 Each by INTRAUTERINE route as directed. STIOLTO RESPIMAT 2.5-2.5 mcg/actuation Inhale 2 Puffs as instructed once daily. albuterol HFA (PROVENTIL HFA, VENTOLIN HFA) 90 mcg/actuation inhaler Inhale 2 Puffs as instructed every 4 hours as needed for wheezing/shortness of breath. Insulin [place], Disposable, (SURE-FINE PEN NEEDLES) 31 gauge x 3/16 Daily injections blood sugar diagnostic (BLOOD GLUCOSE TEST) test strip Test blood sugar(s) 2 times daily. Dx: Type 2 DM - Uncontrolled E11.65 Insulin: Yes Lancets lancets Test blood sugar(s) two times daily. Dx: E11.65. Insulin: Yes metoprolol succinate ER (TOPROL XL) 25 mg 24 hr tablet Take 25 mg by mouth once daily. (Patient not taking: Reported on 05/29/2024) DULoxetine (CYMBALTA) 40 mg cpDR Take 1 capsule by mouth once daily. (Patient not taking: Reported on 05/29/2024) fluconazole (DIFLUCAN) 150 mg tablet Take immediately and repeat in 3 days as needed. (Patient not taking: Reported on 05/15/2024) No current facility-administered medications for this visit. FAMILY HISTORY Problem Relation Age of Onset Heart Mother Diabetes Mother Hypertension Mother Arthritis Mother Heart Father Arthritis Father Cancer Maternal Grandmother stomach cancer. Social History Tobacco Use Smoking status: Every Day Current packs/day: 0.50 Average packs/day: 0.5 packs/day for 20.0 years (10.0 ttl pk-yrs) Types: Cigarettes Smokeless tobacco: Never Substance Use Topics Alcohol use: Yes Comment: occ Drug use: No EXAM: BP 126/72 Pulse 89 Ht 162.6 cm (5' 4) Wt 99.3 kg (219 lb) LMP 05/09/2024 (Within Days) SpO2 97% BMI 37.59 kg/m PHYSICAL EXAM: Physical Exam Vitals reviewed. Constitutional: Appearance: She is ill-appearing. Cardiovascular: Rate and Rhythm: Normal rate and regular rhythm. Pulses: Normal pulses. Heart sounds: Normal heart sounds. Pulmonary: Effort: Pulmonary effort is normal. Breath sounds: No wheezing, rhonchi or rales. Comments: RUL absent, no rhonchi or wheezing Dry cough Abdominal: Palpations: Abdomen is soft. Tenderness: There is abdominal tenderness. There is no guarding. Musculoskeletal: General: Normal range of motion. Right lower leg: No edema. Left lower leg: No edema. Skin: General: Skin is warm and dry. Neurological: Mental Status: She is alert and oriented to person, place, and time. Psychiatric: Comments: Very flat affect, depressed LABS: ASSESSMENT/PLAN: 1. Bacterial pneumonia - ICD9: 482.9, ICD10: J15.9 (primary diagnosis) Recheck after treatment - AZITHROMYCIN 250 MG TABLET for 5 days - DOXYCYCLINE HYCLATE 100 MG CAPSULE 2 x day for 10 days 2. Type 2 diabetes mellitus without complication, without long-term current use of insulin (HCC) - ICD9: 250.00, ICD10: E11.9 - Control undetermined, due for labs - Continue current medications - LANCETS - BLOOD SUGAR DIAGNOSTIC STRIPS - Request updated CGM since not able to test at all since monitor got wet 3. Current moderate episode of major depressive disorder, unspecified whether recurrent (HCC) - ICD9: 296.22, ICD10: F32.1 Will treat for pneumonia - Reassess after treatment for pneumonia Discussed treatment plan and patient voices understanding. Patient's questions answered appropriately. Medications and potential side effects were discussed and patient voices understanding. Return to the office as scheduled or as needed for worsening/no improvement. Lazara Melendez APRN.CNP documented in this encounter [facility] 05-15-2024 Note HNO ID: [id number] Author: TRACY AGUILLON APRN.CNM Service: ? Author Type: Flight Test Mechanic Type: Progress Notes Filed: 05/15/2024 14:32 Note Text: Route Driver Salesperson offered: Patient declines. Ginger Ching is a 43 year old female who presents for problem visit STD check - partner positive for syphilis in last week. HPI: Presents today with concerns for STD. Partner incarcerated and tested positive for syphilis. She thinks he had a new partner in December. Denies any symptoms or other concerns. 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 Social History Tobacco Use Smoking status: Every Day Current packs/day: 0.50 Average packs/day: 0.5 packs/day for 20.0 years (10.0 ttl pk-yrs) Types: Cigarettes Smokeless tobacco: Never Substance Use Topics Alcohol use: Yes Comment: occ Drug use: No Current Outpatient Medications Medication Sig flash glucose scanning reader (CampalystSTYLE ANA 2 READER) 1 Each every hour as needed. empagliflozin (JARDIANCE) 25 mg tablet Take 1 tablet by mouth daily with breakfast. atorvastatin (LIPITOR) 20 mg tablet Take 1 tablet by mouth once daily. flash glucose sensor (FREESTYLE ANA 2 SENSOR) kit 2 Each three times a day as needed. DULoxetine (CYMBALTA) 40 mg cpDR Take 1 capsule by mouth once daily. insulin glargine (LANTUS SOLOSTAR U-100 INSULIN) 100 unit/mL (3 mL) Inject 40 Units subcutaneously daily at bedtime. linaGLIPtin (TRADJENTA) 5 mg tab Take 1 tablet by mouth once daily. levonorgestrel (MIRENA) 21 mcg/24 hr (8 yrs) 52 mg IUD 1 Each by INTRAUTERINE route as directed. STIOLTO RESPIMAT 2.5-2.5 mcg/actuation Inhale 2 Puffs as instructed once daily. albuterol HFA (PROVENTIL HFA, VENTOLIN HFA) 90 mcg/actuation inhaler Inhale 2 Puffs as instructed every 4 hours as needed for wheezing/shortness of breath. Insulin [place], Disposable, (SURE-FINE PEN NEEDLES) 31 gauge x 3/16 Daily injections blood sugar diagnostic (BLOOD GLUCOSE TEST) test strip Test blood sugar(s) 2 times daily. Dx: Type 2 DM - Uncontrolled E11.65 Insulin: Yes Lancets lancets Test blood sugar(s) two times daily. Dx: E11.65. Insulin: Yes gabapentin (NEURONTIN) 800 mg tablet Take 1 tablet by mouth three times a day for 90 days. fluconazole (DIFLUCAN) 150 mg tablet Take immediately and repeat in 3 days as needed. (Patient not taking: Reported on 05/15/2024) No current facility-administered medications for this visit. Allergies As of Date: 05/15/2024 Allergen Noted Reaction CATS 10/23/2009 Hives and Itching DUST 10/23/2009 GRASS POLLEN 10/23/2009 Itching ACETAMINOPHEN 01/07/2022 GI Upset CARDIZEM [DILTIAZEM] 07/25/2013 GI Upset and Vomiting PERCOCET [OXYCODONE-ACETAMINOPHEN]06/07/2016 Vomiting ZYRTEC [CETIRIZINE HCL] 08/22/2013 Hives Fully Assessed 05/15/2024 REVIEW OF SYSTEMS Abdomen: No bloating, early satiety, indigestion, or increased flatulence. No abdominal pain, nausea, vomiting, diarrhea, or constipation. Bladder: No dysuria, gross hematuria, urinary frequency, urinary urgency, or incontinence. Breast: No breast lumps, nipple d/c, overlying skin changes, redness or skin retraction. Expanded ROS: N/A Allergies and current medication updated:Yes SENSITIVE EXAM: The sensitive examination was discussed with the Patient or Patient's Authorized Ore Storage Drier. As applicable, any other physician, advance practice provider, medical student, or other health professional student that will be observing or involved in the sensitive examination for educational or training purposes was discussed with the Patient or Authorized Ore Storage Drier. The Patient or Authorized Ore Storage Drier has agreed to proceed with the sensitive examination. (Sensitive examination includes inspection and/or palpation of the breasts, pelvis, prostate and anorectal regions). EXAM: BP 118/86 Wt 220 lb (99.8kg) LMP 05/09/2024 GENERAL: pl (more content not included)... 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 Ginger Ching is a 43 year old female who presents for problem visit STD check - partner positive for syphilis in last week. HPI: Presents today with concerns for STD. Partner incarcerated and tested positive for syphilis. She thinks he had a new partner in December. Denies any symptoms or other concerns. 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 Social History Tobacco Use Smoking status: Every Day Current packs/day: 0.50 Average packs/day: 0.5 packs/day for 20.0 years (10.0 ttl pk-yrs) Types: Cigarettes Smokeless tobacco: Never Substance Use Topics Alcohol use: Yes Comment: occ Drug use: No Current Outpatient Medications Medication Sig flash glucose scanning reader (Carbay ANA 2 READER) 1 Each every hour as needed. empagliflozin (JARDIANCE) 25 mg tablet Take 1 tablet by mouth daily with breakfast. atorvastatin (LIPITOR) 20 mg tablet Take 1 tablet by mouth once daily. flash glucose sensor (FREESTYLE ANA 2 SENSOR) kit 2 Each three times a day as needed. DULoxetine (CYMBALTA) 40 mg cpDR Take 1 capsule by mouth once daily. insulin glargine (LANTUS SOLOSTAR U-100 INSULIN) 100 unit/mL (3 mL) Inject 40 Units subcutaneously daily at bedtime. linaGLIPtin (TRADJENTA) 5 mg tab Take 1 tablet by mouth once daily. levonorgestrel (MIRENA) 21 mcg/24 hr (8 yrs) 52 mg IUD 1 Each by INTRAUTERINE route as directed. STIOLTO RESPIMAT 2.5-2.5 mcg/actuation Inhale 2 Puffs as instructed once daily. albuterol HFA (PROVENTIL HFA, VENTOLIN HFA) 90 mcg/actuation inhaler Inhale 2 Puffs as instructed every 4 hours as needed for wheezing/shortness of breath. Insulin [place], Disposable, (SURE-FINE PEN NEEDLES) 31 gauge x 3/16 Daily injections blood sugar diagnostic (BLOOD GLUCOSE TEST) test strip Test blood sugar(s) 2 times daily. Dx: Type 2 DM - Uncontrolled E11.65 Insulin: Yes Lancets lancets Test blood sugar(s) two times daily. Dx: E11.65. Insulin: Yes gabapentin (NEURONTIN) 800 mg tablet Take 1 tablet by mouth three times a day for 90 days. fluconazole (DIFLUCAN) 150 mg tablet Take immediately and repeat in 3 days as needed. (Patient not taking: Reported on 05/15/2024) No current facility-administered medications for this visit. Allergies As of Date: 05/15/2024 Allergen Noted Reaction CATS 10/23/2009 Hives and Itching DUST 10/23/2009 GRASS POLLEN 10/23/2009 Itching ACETAMINOPHEN 01/07/2022 GI Upset CARDIZEM [DILTIAZEM] 07/25/2013 GI Upset and Vomiting PERCOCET [OXYCODONE-ACETAMINOPHEN]06/07/2016 Vomiting ZYRTEC [CETIRIZINE HCL] 08/22/2013 Hives Fully Assessed 05/15/2024 REVIEW OF SYSTEMS Abdomen: No bloating, early satiety, indigestion, or increased flatulence. No abdominal pain, nausea, vomiting, diarrhea, or constipation. Bladder: No dysuria, gross hematuria, urinary frequency, urinary urgency, or incontinence. Breast: No breast lumps, nipple d/c, overlying skin changes, redness or skin retraction. Expanded ROS: N/A Allergies and current medication updated:Yes SENSITIVE EXAM: The sensitive examination was discussed with the Patient or Patient's Authorized Ore Storage Drier. As applicable, any other physician, advance practice provider, medical student, or other health professional student that will be observing or involved in the sensitive examination for educational or training purposes was discussed with the Patient or Authorized Ore Storage Drier. The Patient or Authorized Ore Storage Drier has agreed to proceed with the sensitive examination. (Sensitive examination includes inspection and/or palpation of the breasts, pelvis, prostate and anorectal regions). EXAM: BP 118/86 Wt 220 lb (99.8kg) LMP 05/09/2024 GENERAL: pleasant, female in no apparent distress HEENT: Normocephalic and atraumatic NECK: Supple and full range of motion DERMATOLOGY: Normal and without lesions PELVIC: external genitalia normal, normal Bartholin's glands, urethra, [place]'s glands, no vulvar lesions, no cervical lesions, good vaginal support, physiologic discharge present, normal appearing perineal body and perianal region BIMANUAL: Deferred NEURO: alert and oriented x3,exam grossly non-focal EXTREMITIES: normal ASSESSMENT AND PLAN: Assessment & Plan Exposure to sexually transmitted disease (STD) Orders: GONORRHEA/CHLAMYDIA NAAT SYPHILIS TREPONEMAL W/REFLEX; Future HIV 1/2 COMBO WITH REFLEX TO DIFFERENTIATION; Future HEPATITIS C ANTIBODY IA WITH CONFIRMATION; Future HEPATITIS B SURFACE ANTIGEN; Future BACTERIAL VAGINOSIS NAAT LORENZO/TRICHOMONAS NAAT - Reviewed if RPR negative, will retest in 3-4 weeks Tracy Aguillon APRN.CNM documented in this encounter [facility] 03-21-2024 Telephone encounter Note 1)Pt requesting a new Understorye 2 reader. Reason: It got wet and does not work. 2) Pt requesting refill on Jardiance. Pt has missed doses in the past. The patient has been identified by name and date of : Yes Caregiver verified no other encounters exist for this prescription request: Yes Caregiver confirmed with patient/requestor that no other refills are due, in the near future, with this provider at this time: Yes The last office visit in the department: 02/27/2024 Does the patient have a future office visit with this provider/department: Yes 05/29/2024 Requested Prescriptions Pending Prescriptions Disp Refills flash glucose scanning reader (FREESTYLE ANA 2 READER) 1 Each 0 Si Each every hour as needed. empagliflozin (JARDIANCE) 25 mg tablet 30 tablet 5 Sig: Take 1 tablet by mouth daily with breakfast. Hermelinda Thurston LPN March 21, 2024 12:[address] [facility] 03-21-2024 Miscellaneous Notes 1)Pt requesting a new Freestyle Ana 2 reader. Reason: It got wet and does not work. 2) Pt requesting refill on Jardiance. Pt has missed doses in the past. The patient has been identified by name and date of : Yes Caregiver verified no other encounters exist for this prescription request: Yes Caregiver confirmed with patient/requestor that no other refills are due, in the near future, with this provider at this time: Yes The last office visit in the department: 02/27/2024 Does the patient have a future office visit with this provider/department: Yes 05/29/2024 Requested Prescriptions Pending Prescriptions Disp Refills flash glucose scanning reader (FREESTYLE ANA 2 READER) 1 Each 0 Si Each every hour as needed. empagliflozin (JARDIANCE) 25 mg tablet 30 tablet 5 Sig: Take 1 tablet by mouth daily with breakfast. Hermelinda Thurston LPN March 21, 2024 12:04 PM documented in this encounter [facility] 03-20-2024 History of Present illness Narrative Program_ID:[id number] Access Code: [email or web address] URL: [email or web address] Date: 03-20-2024 Prepared By: Tracy Celaya Program Notes Exercises - Standing Lumbar Extension - 3-4 x daily - 7 x weekly - 2-4 sets - 10 reps - Standing Lumbar Extension at Wall - Forearms - 3-4 x daily - 7 x weekly - 2-4 sets - 10 reps - Lying Prone - 3-4 x daily - 7 x weekly - 1 sets - 1 reps - Seated Transversus Abdominis Bracing - 1 x daily - 7 x weekly - 2 sets - 10 reps Images from the original note were not included. Episode Visit Count: 1 Therapist That Will Accept/Oversee The Plan Of Care: Tracy Celaya Start of Care Date: 03/20/24 Onset Date: 03/20/14 Plan of Care Certification Date: 03/20/24 Next Certification Due Date: 05/01/24 Patient Identified by Name and Date of : Yes REHABILITATION AND SPORTS THERAPY PHYSICAL THERAPY EVALUATION PLAN OF CARE: Assessment: Ginger Ching presents with diagnosis of degeneration of intervertebral disc of lumbar region with discogenic back pain and lower extremity pain, chronic thoracic spine pain, and postural kyphosis of thoracic region that interferes with sitting, walking, bed mobility, sleeping, stair negotiation . The patient presents with impairments in ADL's, gait, independence in exercise, joint mobility, overall function, patient reported outcome measures, posture, range of motion, strength, stress management, symptom management, and tissue tenderness. PROMIS (Patient-Reported Outcomes Measurement Information System) scores were reviewed and identified as a rehabilitation concern. Prognosis for therapy is Fair due to: coping skills, chronic nature of impairments, clinical presentation, multiple co- morbidities, limited tolerance to activity, poor historian, poor understanding of deficits . The patient will benefit from skilled therapy services to meet the goals established for this plan of care as noted below. Classification Pain Mechanism Classification: Nociplastic/Central Low Back Pain Classification: Symptom Modulation Goals for Episode of Care: established 03/20/24 Independent in home exercises. Patient will decrease pain rating by 2 points to meet minimal clinical important difference for numeric pain rating scale. Restore pain-free lumbar ROM to minimal to moderate limitation without increased pain grossly to allow for transitional movements. Stand / Walk 10-15 minutes without increased pain/symptoms. Sleep through night without pain/symptoms. Sit 15-30 minutes without pain/symptoms to allow for seated activities. Patient Goals: reduce back pain with walking >5 min and sitting >5 min. Pt. would like to self manage her pain better. Time Frame for Goals and Treatment : 04/24/24 Planned Interventions, Frequency, and Duration: Current Frequency: 1x/week Duration: 6 weeks Total Number of Visits Planned: 6 Planned Treatment Interventions: Therapeutic exercise (40637), Neuromuscular re-education (50829), Manual therapy (87920), Therapeutic activities (18031), Self-intermediate management (66115), Gait Training (83398) PLAN FOR NEXT VISIT: assess symptom response to seated TA and extension, and consider PNE Patient demonstrates good understanding of plan of care and treatment. The above goals and plan of care were discussed and agreed upon by patient/family. SUBJECTIVE: for chronic mid to low back pain. Currenlty only mid back pain (pt. points to mid thoracic to top of lumbar spine). Pt. was seen by PT 10 years ago and reports good outcomes with this. Walking and sitting make it worse, she must alternate these movements. Sleeping is difficult on her sides, she must sleep on her stomach which is not usual for her. Patient Goals: reduce back pain with walking >5 min and sitting >5 min. Pt. would like to self manage her pain better. Functional Limitations: sitting, walking, bed mobility, sleeping, stair negotiation Prior Level of Function: Independent without limitations Relevant History Hobbies / Interests: I dont' know, I really don't do much. Intake Information: Prescription present Previous Treatment: Physical Therapy Falls Interview: No positive findings with falls interview Red Flags Vertebral Fracture Red Flags: Female Vertebral Fracture Clinical Reasoning: Proceed with caution due to the above (1-2) risk factors Abdominal Aortic Aneurysm Clinical Reasoning: Proceed with caution Cancer Clinical Reasoning: No identified risk factors. Infection Clinical Reasoning: No identified risk factors. Cauda Equina Syndrome Clinical Reasoning: No identified risk factors. Red Flags - Cervical Cancer Clinical Reasoning: No identified risk factors. Infection Clinical Reasoning: No identified risk factors. Spine History Symptoms Location at Onset: Back Pain is Worse Always: Sitting, Standing, Lying, Prolonged positions Pain is Better Always: AM (prone) Pain: Pain Pain Level: 5 Pain Location: Thoracic Spine - Right Description: Aching Post Treatment Pain Post Treatment Pain Level: No Change Post Treatment Pain Location: Thoracic Spine PROMIS Scales 03/20/2024 01/31/2024 Higher is Better Phys Func - Score 35 (moderate dysfunction) 33 (moderate dysfunction) Phys Func - Percentile 7 4 Self-Eff Symptom - Score 37 (Low) Self-Eff Symptom - Percentile 10 T-scores: mean of general population = 50. 5 points is clinically meaningfully difference Percentiles provide an indication of how the patient's score ranks in relation to the general population. Higher percentile rankings indicate better function/quality of life. 50th percentile is the average of the general population and indicates half of respondents had a worse score. OBJECTIVE MEASURES WITH LEVEL OF FUNCTION: Posture / Alignment Posture: Slump, Increased thoracic kyphosis, Forward head, Rounded shoulders Sitting Posture: Right lateral shift Spine Observations R Thoracic Spine Palpation Tenderness: Paraspinals L Thoracic Spine Palpation Tenderness: Paraspinals Sensation - Lumbar Sensation: Grossly Intact Lumbar Spine AROM Lumbar Flexion: Normal, Produces Lumbar Extension: Normal, Produces Lumbar R Side [place]: Normal, Produces Lumbar L Side [place]: Minimal limitation, Produces Lumbar R Side-Bend: Produces, Minimal limitation Lumbar L Side-Bend: Moderate limitation, Produces Repeated Test Movements - Lumbar CHUN - Symptoms During: no effect CHUN - Symptoms After: no better REIL - Symptoms During: increases REIL - Symptoms After: worse Other Lumbar Repeated Test Movements: Yes Static Testing - Lumbar Sit Erect: no effect Lying Prone In Extension: worse, centralized (unable to tolerate) Thoracic Spine AROM Thoracic Flexion: Normal, Produces (I feel like my back is going to break.) Thoracic Extension: Major limitation, Produces Thoracic Sidebend Right: Normal Thoracic Sidebend Left: Normal Thoracic Rotation Right: Normal Thoracic Rotation Left: Normal, Produces Gait Gait: Independent Gait Distance (feet): 20 Gait Device: None Gait Deviations: General Deviations General Deviations/Observations: Step length decreased, Trunk Control Decreased, Wide base of support, Lateral sway increased, Flexed trunk posture, Isidra decreased, Antalgic gait, Arm swing decreased, Shuffling Gait Education: Education Learning Preferences: Demonstration, Explanation, Performance, Printed Materials Barriers: Acuity of Illness, Emotions, Low activity tolerance/endurance Learning/educational needs: Plan of Care, Home exercise program, Posture, Gait Training Education Provided: Yes, see treatment interventions for education provided Education Provided To: Patient Education Mode/Type: Demonstration, Explanation/Discussion, Literature/Printed Materials Response to Education/Teach Back: States/Identifies, Return Demonstration TREATMENT: PT Treatment Interventions: Therapeutic Exercise, Self-Assisted Management Evaluation Therapeutic Exercise: 1: ESA x 3 min - pt. unable to tolerate longer 2: prone press ups attempted x 2- dc due to pt. reporting worse symptoms 3: prone lay x 3 min - better tolerated 4: wall repeated lumbar extension 3x10 Skilled Intervention: Patient was educated in proper exercise technique and purpose for exercises. Skilled judgment was used in selection of appropriate interventions. Correct performance of therapeutic exercises was facilitated with verbal, visual, and tactile cuing. Educated patient on rationale for performing exercises in regards to decreasing fatigue , increase ease of ADL, and ROM and function . Patient education as noted. Self-Assisted Management: 1: lumbar towel roll education - pt. reports it does not make a difference in symptoms 2: discussed directional preference 3: discussed the benefit of core stabilization isometrics without increased pain from movement Skilled Intervention: Skilled judgment in the selection of proper modification for activity of daily living/home management based on clinical presentation, deficits, and needs. Provided written instruction for activities of daily living techniques to facilitate proper performance and compliance. Reviewed patient specific diagnosis in relation to activities of daily living/home management. Activity progression based on professional judgement. Maximum verbal cues for maintaining neutral spine alignment. Provided written instruction for home program to facilitate proper performance and compliance. Correct performance of home program was facilitated with verbal, visual, and tactile cueing. Billing * Evaluation Low Complexity: 1 Unit Therapeutic Exercise Treatment Minutes: 15 Self-Care/Home Management Treatment Minutes: 10 Skilled Treatment Time Minutes (timed and untimed codes): 41 Total Session Time (minutes): 41 Session Start Time : 1147 Session Stop Time : 1228 Tracy Celaya PT documented in this encounter [facility] 03-20-2024 Note HNO ID: [id number] Author: TRACY CELAYA PT Service: ? Author Type: Physical Therapist Type: Progress Notes Filed: 03/20/2024 12:33 Note Text: Episode Visit Count: 1 Therapist That Will Accept/Oversee The Plan Of Care: Tracy Celaya Start of Care Date: 03/20/24 Onset Date: 03/20/14 Plan of Care Certification Date: 03/20/24 Next Certification Due Date: 05/01/24 Patient Identified by Name and Date of : Yes REHABILITATION AND SPORTS THERAPY PHYSICAL THERAPY EVALUATION PLAN OF CARE: Assessment: Ginger Ching presents with diagnosis of degeneration of intervertebral disc of lumbar region with discogenic back pain and lower extremity pain, chronic thoracic spine pain, and postural kyphosis of thoracic region that interferes with sitting, walking, bed mobility, sleeping, stair negotiation . The patient presents with impairments in ADL's, gait, independence in exercise, joint mobility, overall function, patient reported outcome measures, posture, range of motion, strength, stress management, symptom management, and tissue tenderness. PROMIS? (Patient-Reported Outcomes Measurement Information System) scores were reviewed and identified as a rehabilitation concern. Prognosis for therapy is Fair due to: coping skills, chronic nature of impairments, clinical presentation, multiple co- morbidities, limited tolerance to activity, poor historian, poor understanding of deficits . The patient will benefit from skilled therapy services to meet the goals established for this plan of care as noted below. Classification Pain Mechanism Classification: Nociplastic/Central Low Back Pain Classification: Symptom Modulation Goals for Episode of Care: established 03/20/24 Independent in home exercises. Patient will decrease pain rating by 2 points to meet minimal clinical important difference for numeric pain rating scale. Restore pain-free lumbar ROM to minimal to moderate limitation without increased pain grossly to allow for transitional movements. Stand / Walk 10-15 minutes without increased pain/symptoms. Sleep through night without pain/symptoms. Sit 15-30 minutes without pain/symptoms to allow for seated activities. Patient Goals: reduce back pain with walking >5 min and sitting >5 min. Pt. would like to self manage her pain better. Time Frame for Goals and Treatment : 04/24/24 Planned Interventions, Frequency, and Duration: Current Frequency: 1x/week Duration: 6 weeks Total Number of Visits Planned: 6 Planned Treatment Interventions: Therapeutic exercise (92577), Neuromuscular re-education (42073), Manual therapy (13464), Therapeutic activities (97109), Self-intermediate management (24383), Gait Training (68600) PLAN FOR NEXT VISIT: assess symptom response to seated TA and extension, and consider PNE Patient demonstrates good understanding of plan of care and treatment. The above goals and plan of care were discussed and agreed upon by patient/family. SUBJECTIVE: for chronic mid to low back pain. Currenlty only mid back pain (pt. points to mid thoracic to top of lumbar spine). Pt. was seen by PT 10 years ago and reports good outcomes with this. Walking and sitting make it worse, she must alternate these movements. Sleeping is difficult on her sides, she must sleep on her stomach which is not usual for her. Patient Goals: reduce back pain with walking >5 min and sitting >5 min. Pt. would like to self manage her pain better. Functional Limitations: sitting, walking, bed mobility, sleeping, stair negotiation Prior Level of Function: Independent without limitations Relevant History Hobbies / Interests: I dont' know, I really don't do much. Intake Information: Prescription present Previous Treatment: Physical Therapy Falls Interview: No positive findings with falls interview Red Flags Vertebral Fracture Red Flags: Female Vertebral Fracture Clinical Reasoning: Proceed with caution due to the above (1-2) risk factors Abdominal Aortic Aneurysm Clinical Reasoning: Proceed with caution Cancer Clinical Reasoning: No identified risk factors. Infection Clinical Reasoning: No identified risk factors. Cauda Equina Syndrome Clinical Reasoning: No identified risk factors. Red Flags - Cervical Cancer Clinical Reasoning: No identified risk factors. Infection Clinical Reasoning: No identified risk factors. Spine History Symptoms Location at Onset: Back Pain is Worse Always: Sitting, Standing, Lying, Prolonged positions Pain is Better Always: AM (prone) Pain: Pain Pain Level: 5 Pain Location: Thoracic Spine - Right Description: Aching Post Treatment Pain Post Treatment Pain Level: No Change Post Treatment Pain Location: Thoracic Spine PROMIS Scales 03/20/2024 01/31/2024 Higher is Better Phys Func - Score 35 (moderate dysfunction) 33 (moderate dysfunction) Phys Func - Percentile 7 4 Self-Eff Symptom - Score 37 (Low) Self-Eff Symptom - Percen (more content not included)... [facility] 03-02-2024 Note HNO ID: [id number] Author: HUMBERTO DAMON MD Service: ? Author Type: Physician Type: Progress Notes Filed: 03/02/2024 10:13 Note Text: [facility] Date: March 02, 2024 - 8:35 AM Ginger Teja Ching is seen in consultation requested by Daphne Gresham for an opinion regarding chronic lower back pain. My final recommendations will be communicated back to the requesting physician by way of shared medical record or via US mail. Chief Complaint: chronic back pian SUBJECTIVE: Ginger Ching, is a 43 year old female who presents with lower back pain. The pain started years ago, with no known injury or trauma. The pain onset was gradual in nature. The patient states that the current pain is persistent and worsening. Her pain is located in the bilateral lumbar region and radiates to left lower extremity along posterior aspect to the level of toes . // The pain is described as sharp, shooting, cramping, aching, numbness, and tingling. The pain intensity is rated 8. The pain is exacerbated by walking and relieved by elevating. Symptoms interfere with physical activity and walking. 50% pain in spine vs 50% (radiating) pain in the extremity. Litigation: No. Worker's Compensation: No. Prior pain treatment has included: Medication(s): Cymbalta, muscle relaxant, Gabapentin, Lyrica Patient Entered Questionnaires PROMIS Score Percentiles 06/28/2022 10/11/2022 01/31/2024 PROMIS Global Health Scale Physical Health Percentile 10 7 Mental Health Percentile 5 13 13 01/31/2024 Physical Health Physical Function Percentile 4 Pain Interference Percentile 1 Percentiles provide an indication of how the patient's score ranks in relation to the general population. Higher percentile rankings indicate better function/quality of life. 50th percentile is the average of the general population and indicates half of respondents had a worse score. > 31st percentile is within normal limits or better * < 31st percentile is at least ? SD worse than population, which may be clinically relevant < 16th percentile is at least 1 SD worse than population and warrants attention ALLERGIES Allergen Reactions Cats Hives, Itching Dust environmental Grass Pollen Itching Acetaminophen GI Upset Cardizem [Diltiazem] GI Upset, Vomiting Percocet [Oxycodone* Vomiting Zyrtec [Cetirizine * Hives Current Medications: Pain medications reviewed and reconciled in the medication list: Yes. Current Outpatient Medications Medication Sig cephALEXin (KEFLEX) 500 mg capsule Take 1 capsule by mouth two times a day for 5 days. atorvastatin (LIPITOR) 20 mg tablet Take 1 tablet by mouth once daily. flash glucose sensor (FREESTYLE ANA 2 SENSOR) kit 2 Each three times a day as needed. gabapentin (NEURONTIN) 800 mg tablet Take 1 tablet by mouth three times a day for 90 days. DULoxetine (CYMBALTA) 40 mg cpDR Take 1 capsule by mouth once daily. insulin glargine (LANTUS SOLOSTAR U-100 INSULIN) 100 unit/mL (3 mL) Inject 40 Units subcutaneously daily at bedtime. linaGLIPtin (TRADJENTA) 5 mg tab Take 1 tablet by mouth once daily. levonorgestrel (MIRENA) 21 mcg/24 hr (8 yrs) 52 mg IUD 1 Each by INTRAUTERINE route as directed. STIOLTO RESPIMAT 2.5-2.5 mcg/actuation Inhale 2 Puffs as instructed once daily. albuterol HFA (PROVENTIL HFA, VENTOLIN HFA) 90 mcg/actuation inhaler Inhale 2 Puffs as instructed every 4 hours as needed for wheezing/shortness of breath. flash glucose scanning reader (FREESTYLE ANA 2 READER) 1 Each every hour as needed. Insulin [place], Disposable, (SURE-FINE PEN NEEDLES) 31 gauge x 3/16 Daily injections fluconazole (DIFLUCAN) 150 mg tablet Take immediately and repeat in 3 days as needed. empagliflozin (JARDIANCE) 25 mg tablet Take 1 tablet by mouth daily with breakfast. blood sugar diagnostic (BLOOD GLUCOSE TEST) test strip Test blood sugar(s) 2 times daily. Dx: Type 2 DM - Uncontrolled E11.65 Insulin: Yes Lancets lancets Test blood sugar(s) two times daily. Dx: E11.65. Insulin: Yes No current facility-administered medications for this visit. PAST MEDICAL HISTORY Diagnosis Date Anxiety 12/29/2012 [...] FLP TUBE ABDL/VAG APPR UNI/BI Tubal ligation FAMILY HISTORY Problem Relation Age of Onset Heart Mother Diabetes Mother Hypertension Mother Arthritis Mother Heart Father Arthritis Father Cancer Maternal Grandmother st (more content not included)... [facility] 03-02-2024 History of Present illness Narrative [facility] Pain Management Department Date: March 02, 2024 - 8:35 AM Ginger Ching is seen in consultation requested by Daphne Gresham for an opinion regarding chronic lower back pain. My final recommendations will be communicated back to the requesting physician by way of shared medical record or via US mail. Chief Complaint: chronic back pian SUBJECTIVE: Ginger Ching, is a 43 year old female who presents with lower back pain. The pain started years ago, with no known injury or trauma. The pain onset was gradual in nature. The patient states that the current pain is persistent and worsening. Her pain is located in the bilateral lumbar region and radiates to left lower extremity along posterior aspect to the level of toes . // The pain is described as sharp, shooting, cramping, aching, numbness, and tingling. The pain intensity is rated 8. The pain is exacerbated by walking and relieved by elevating. Symptoms interfere with physical activity and walking. 50% pain in spine vs 50% (radiating) pain in the extremity. Litigation: No. Worker's Compensation: No. Prior pain treatment has included: Medication(s): Cymbalta, muscle relaxant, Gabapentin, Lyrica Patient Entered Questionnaires PROMIS Score Percentiles 06/28/2022 10/11/2022 01/31/2024 PROMIS Global Health Scale Physical Health Percentile 10 7 Mental Health Percentile 5 13 13 01/31/2024 Physical Health Physical Function Percentile 4 Pain Interference Percentile 1 Percentiles provide an indication of how the patient's score ranks in relation to the general population. Higher percentile rankings indicate better function/quality of life. 50th percentile is the average of the general population and indicates half of respondents had a worse score. > 31st percentile is within normal limits or better * < 31st percentile is at least SD worse than population, which may be clinically relevant < 16th percentile is at least 1 SD worse than population and warrants attention ALLERGIES Allergen Reactions Cats Hives, Itching Dust environmental Grass Pollen Itching Acetaminophen GI Upset Cardizem [Diltiazem] GI Upset, Vomiting Percocet [Oxycodone* Vomiting Zyrtec [Cetirizine * Hives Current Medications: Pain medications reviewed and reconciled in the medication list: Yes. Current Outpatient Medications Medication Sig cephALEXin (KEFLEX) 500 mg capsule Take 1 capsule by mouth two times a day for 5 days. atorvastatin (LIPITOR) 20 mg tablet Take 1 tablet by mouth once daily. flash glucose sensor (FREESTYLE ANA 2 SENSOR) kit 2 Each three times a day as needed. gabapentin (NEURONTIN) 800 mg tablet Take 1 tablet by mouth three times a day for 90 days. DULoxetine (CYMBALTA) 40 mg cpDR Take 1 capsule by mouth once daily. insulin glargine (LANTUS SOLOSTAR U-100 INSULIN) 100 unit/mL (3 mL) Inject 40 Units subcutaneously daily at bedtime. linaGLIPtin (TRADJENTA) 5 mg tab Take 1 tablet by mouth once daily. levonorgestrel (MIRENA) 21 mcg/24 hr (8 yrs) 52 mg IUD 1 Each by INTRAUTERINE route as directed. STIOLTO RESPIMAT 2.5-2.5 mcg/actuation Inhale 2 Puffs as instructed once daily. albuterol HFA (PROVENTIL HFA, VENTOLIN HFA) 90 mcg/actuation inhaler Inhale 2 Puffs as instructed every 4 hours as needed for wheezing/shortness of breath. flash glucose scanning reader (FREESTYLE ANA 2 READER) 1 Each every hour as needed. Insulin [place], Disposable, (SURE-FINE PEN NEEDLES) 31 gauge x 3/16 Daily injections fluconazole (DIFLUCAN) 150 mg tablet Take immediately and repeat in 3 days as needed. empagliflozin (JARDIANCE) 25 mg tablet Take 1 tablet by mouth daily with breakfast. blood sugar diagnostic (BLOOD GLUCOSE TEST) test strip Test blood sugar(s) 2 times daily. Dx: Type 2 DM - Uncontrolled E11.65 Insulin: Yes Lancets lancets Test blood sugar(s) two times daily. Dx: E11.65. Insulin: Yes No current facility-administered medications for this visit. PAST MEDICAL HISTORY Diagnosis Date Anxiety 12/29/2012 [...] FLP TUBE ABDL/VAG APPR UNI/BI Tubal ligation FAMILY HISTORY Problem Relation Age of Onset Heart Mother Diabetes Mother Hypertension Mother Arthritis Mother Heart Father Arthritis Father Cancer Maternal Grandmother stomach cancer. 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) Years Of Education Completed: 11 years Marital Status: Single with 3 children REVIEW OF SYSTEMS: Constitutional: (-) Fever (-) Night Sweats (-) Weight Gain (-) Weight Loss (-) Fatigue Cardiovascular: (-) Chest Pain (-) Palpitations (-) Lightheadedness (+) Swelling of Ankles (-) Hx Heart Surgery Respiratory: (+) Shortness of Breath (+) Cough (+) Wheezing (+) Snoring Gastrointestinal: (-) Incontinence (-) Abdominal Pain (-) Diarrhea (-) Constipation (-) Nausea/Vomiting (-) Heart Burn Endocrine: (+) Thyroid Disorder (+) Diabetes Hematologic: (+) Prolonged Bleeding (+) Easy Bruising Genitourinary: (-) Incontinence (-) Frequency (-) Urinary Urgency Skin: (-) Rashes (-) Itching (-) Other Lesions Neurologic: (-) Headache (-) Double Vision (-) Confusion (-) Paralysis (-) Vertigo (-) Syncope Psychiatric: (+) Depression (-) Anxiety OARRS Report reviewed: Yes Narcotic Agreement reviewed and signed?: N/A Baseline Urine Toxicology obtained: N/A Urine Panel: No results found for: UQCANN, UQBNZL, FFX7HIN, UQAMPH, UQMAMP, UQBUPRE, UQNORBUP, UQMTHD, UQEDDP, UQTRAM, UQDTRM, UQFNTL, UQNFTL, UQCODE, UQMORP, UQDCDN, UQHCOD, UQOXYC, UQHMOR, UQOXYM, UQCREA, UQPH, UQSPGR, UQOXID, UQSPQ The pain panel was N/A OBJECTIVE: Performed in conjunction with observation. The patient was alert and oriented x3. The patient was in no acute distress. Lungs: Clear, negative for dyspnea or distress. CVR: Negative for SOB or peripheral edema. Neck: Supple. The range of motion was intact. Negative focal tenderness Thoracic: Bilateral paravertebral tenderness in the lower thoracic region. Positive mild kyphosis. Back: Range of motion of the trunk was slow but intact. Bilateral mid thoracic tenderness that extends to the lower lumbar segments.. SLR: Negative Facet Loading: Equivocal with axial loading and extension. SI joint: Negative PSIS tenderness. sign. Extremities: no reported edema or erythema. Motor: Negative focal deficits Sensory: Intact light touch bilateral lower extremities to the level of the ankles Gait: Slow to stand with flexed posture. Within normal limits Medical record and diagnostic tests reviewed for today's visit: The [facility] EMR was reviewed during the visit IMAGING STUDIES: No new imaging studies were reviewed during this office visit. ASSESSMENT: (R20.2) Paresthesia of bilateral legs (M79.604, M79.605) Pain in both lower extremities Discussion: A discussion was entertained regarding multicomponent pain source. Discussed conservative options and focus on improvement of function and the concerns of ongoing or developing chronic pain. Discussed the rationale behind interventional approach and how it can facilitate improvement of pain but also diagnostic information that procedures provide. retirement use of any opioid pain medication is discouraged in chronic benign pain. PLAN: 1. The patient has a loss and history of back pain complaints with now worsening with involvement of the thoracic area as well. X-ray reveals increased thoracic kyphosis and thoracic degenerative disc changes. There is also lumbar degenerative disc disease at multiple levels. Recommend physical therapy 2. No interventional procedures indicated 3. No new medication was prescribed. 4. Counseled patient regarding the importance of activity modification and exercise. 5. Follow up: 6 to 8 weeks The above plan and management options were discussed with patient. The patient is in agreement with the above and verbalized understanding. I have discussed and confirmed the above treatment plan with the patient and I have reviewed the nurses notes and I am aware of the family/social history. I have confirmed ROS findings. Humberto Damon MD 1. This document has been created with the use of voice recognition technology. It may contain inaccuracies: (e.g. misspellings, inaccurate syntax or word sense) that have escaped review. 2. The nurse practitioner, nursing staff and medical assistants are a major part of YOUR TREATMENT TEAM and will be handling your phone calls and inquiries, if any. Unless explicitly told otherwise at the time of your office visit, your study results and ensuing treatment plans will be discussed during your follow-up appointment. If you do not have a follow-up appointment and wish to discuss any issues, please set up an appointment. 3. All of the office notes, study results, and other pertinent documentation generated as part of your evaluation will be available to you and to your Primary Care Physician (PCP). Use of this material to complete such forms will be at the discretion of your PCP/referring physician. March 02, 2024 cc: Daphne Gresham [address] [facility] [id number] Results of consultation to be transmitted via electronic medical record for those providers who practice within [facility] or with access to [email or web address] via [facility] [employer], or via letter. documented in this encounter [facility] 02-29-2024 Telephone encounter Note Reviewed message with patient and she voiced understanding. Preeti Copeland LPN [facility] 02-29-2024 Miscellaneous Notes Reviewed message with patient and she voiced understanding. Preeti Copeland LPN ----- Message from Lazara Campoan sent at 02/28/2024 5:02 PM EST ----- No infection. Just spilling glucose as you should be from Jardiance. documented in this encounter [facility] 02-29-2024 Telephone encounter Note ----- Message from Lazara Melendez sent at 02/28/2024 5:02 PM EST ----- No infection. Just spilling glucose as you should be from [facility]. [facility] 02-27-2024 Instructions Lazara Melendez APRN.CNP - 02/27/2024 2:14 PM EST 1) Get urine dip and culture 2) Cephalexin 500 mg 2 x day for 5 days 3) Switch insulin to morning 4) Start atorvastatin 20 mg daily 5) Follow up in 3 months documented in this encounter [facility] 02-27-2024 Note HNO ID: [id number] Author: LAZARA MELENDEZ APRN.LILA Service: ? Author Type: Clinical Nurse Specialist Type: Progress Notes Filed: 02/27/2024 14:16 Note Text: This is a 43 year old female who presents today with: Patient presents with: Ingrown Toenail: Left great toe, ingrown nail HISTORY OF PRESENT ILLNESS: Ginger Ching is a 43 year old female. Patient presents with: Ingrown Toenail: Left great toe, ingrown nail Left great toe is red, warm distal tip and painful. Noticed an ingrown toenail on lateral aspect. Had to quit job because of pain. Rubbing bottoms of feet with vaseline for scaly rough heels. PAST MEDICAL HISTORY: PAST MEDICAL HISTORY Diagnosis Date Anxiety 12/29/2012 [...] Percocet [Oxycodone-Acetaminophen], and Zyrtec [Cetirizine Hcl] MEDICATIONS Current Outpatient Medications Medication Sig gabapentin (NEURONTIN) 800 mg tablet Take 1 tablet by mouth three times a day for 90 days. DULoxetine (CYMBALTA) 40 mg cpDR Take 1 capsule by mouth once daily. linaGLIPtin (TRADJENTA) 5 mg tab Take 1 tablet by mouth once daily. levonorgestrel (MIRENA) 21 mcg/24 hr (8 yrs) 52 mg IUD 1 Each by INTRAUTERINE route as directed. STIOLTO RESPIMAT 2.5-2.5 mcg/actuation Inhale 2 Puffs as instructed once daily. albuterol HFA (PROVENTIL HFA, VENTOLIN HFA) 90 mcg/actuation inhaler Inhale 2 Puffs as instructed every 4 hours as needed for wheezing/shortness of breath. empagliflozin (JARDIANCE) 25 mg tablet Take 1 tablet by mouth daily with breakfast. cephALEXin (KEFLEX) 500 mg capsule Take 1 capsule by mouth two times a day for 5 days. flash glucose sensor (FREESTYLE ANA 2 SENSOR) kit 2 Each three times a day as needed. insulin glargine (LANTUS SOLOSTAR U-100 INSULIN) 100 unit/mL (3 mL) Inject 40 Units subcutaneously daily at bedtime. flash glucose scanning reader (FREESTYLE ANA 2 READER) 1 Each every hour as needed. Insulin [place], Disposable, (SURE-FINE PEN NEEDLES) 31 gauge x 3/16 Daily injections fluconazole (DIFLUCAN) 150 mg tablet Take immediately and repeat in 3 days as needed. blood sugar diagnostic (BLOOD GLUCOSE TEST) test strip Test blood sugar(s) 2 times daily. Dx: Type 2 DM - Uncontrolled E11.65 Insulin: Yes Lancets lancets Test blood sugar(s) two times daily. Dx: E11.65. Insulin: Yes levonorgestrel (MIRENA) 20 mcg/24 hours (7 yrs) 52 mg IUD 1 Each by INTRAUTERINE route continuous. No current facility-administered medications for this visit. FAMILY HISTORY Problem Relation Age of Onset Heart Mother Diabetes Mother Hypertension Mother Arthritis Mother Heart Father Arthritis Father Cancer Maternal Grandmother stomach cancer. Social History Tobacco Use Smoking status: Every Day Current packs/day: 0.50 Average packs/day: 0.5 packs/day for 20.0 years (10.0 ttl pk-yrs) Types: Cigarettes Smokeless tobacco: Never Substance Use Topics Alcohol use: Yes Comment: occ Drug use: No EXAM: BP 122/64 Pulse 88 Temp 36.1 ?C (97 ?F) (Tympanic) Wt 94.8 kg (209 lb) LMP 08/13/2023 (Within Days) SpO2 96% BMI 35.87 kg/m? PHYSICAL EXAM: Physical Exam Vitals reviewed. Constitutional: Appearance: Normal appearance. Musculoskeletal: Comments: Left great toe with an ingrown nail that is swollen and painful. No drainage but red and tender even to light touch. Skin: General: Skin is warm and dry. Comments: Great toe red and inflamed. No open area. Neurological: Mental Status: She is alert and oriented to person, place, and time. Psychiatric: Mood and Affect: Mood normal. Behavior: Behavior normal. LABS: urine dip and culture ASSESSMENT/PLAN: 1. Ingrown toenail - ICD9: 703.0, ICD10: L60.0 (primary diagnosis) Start Keflex - CONSULT TO PODIATRY - CEPHALEXIN 500 MG CAPSULE 2 x day for 5 days 2. Type 2 diabetes mellitus with hyperglycemia, with long-term current use of insulin (HCC) - ICD9: 250.00, 790.29, V58.67, ICD10: E11.65, Z79.4 - Uncontrolled - Continue current medications but switch Lantus to AM - ATORVASTATIN 20 MG TABLET 3. Dysuria - ICD9: 788.1, ICD10: R30.0 acute - Patient education for prevention given - UA DIP, URINE (POC) - URINE CULTURE Discussed treatment plan and patient voices understanding. Patient's questions answered appropriately. Medications and potential s (more content not included)... [facility] 02-27-2024 History of Present illness Narrative This is a 43 year old female who presents today with: Patient presents with: Ingrown Toenail: Left great toe, ingrown nail HISTORY OF PRESENT ILLNESS: Ginger Ching is a 43 year old female. Patient presents with: Ingrown Toenail: Left great toe, ingrown nail Left great toe is red, warm distal tip and painful. Noticed an ingrown toenail on lateral aspect. Had to quit job because of pain. Rubbing bottoms of feet with vaseline for scaly rough heels. PAST MEDICAL HISTORY: PAST MEDICAL HISTORY Diagnosis Date Anxiety 12/29/2012 [...] Percocet [Oxycodone-Acetaminophen], and Zyrtec [Cetirizine Hcl] MEDICATIONS Current Outpatient Medications Medication Sig gabapentin (NEURONTIN) 800 mg tablet Take 1 tablet by mouth three times a day for 90 days. DULoxetine (CYMBALTA) 40 mg cpDR Take 1 capsule by mouth once daily. linaGLIPtin (TRADJENTA) 5 mg tab Take 1 tablet by mouth once daily. levonorgestrel (MIRENA) 21 mcg/24 hr (8 yrs) 52 mg IUD 1 Each by INTRAUTERINE route as directed. STIOLTO RESPIMAT 2.5-2.5 mcg/actuation Inhale 2 Puffs as instructed once daily. albuterol HFA (PROVENTIL HFA, VENTOLIN HFA) 90 mcg/actuation inhaler Inhale 2 Puffs as instructed every 4 hours as needed for wheezing/shortness of breath. empagliflozin (JARDIANCE) 25 mg tablet Take 1 tablet by mouth daily with breakfast. cephALEXin (KEFLEX) 500 mg capsule Take 1 capsule by mouth two times a day for 5 days. flash glucose sensor (FREESTYLE ANA 2 SENSOR) kit 2 Each three times a day as needed. insulin glargine (LANTUS SOLOSTAR U-100 INSULIN) 100 unit/mL (3 mL) Inject 40 Units subcutaneously daily at bedtime. flash glucose scanning reader (CampalystSTYLE ANA 2 READER) 1 Each every hour as needed. Insulin [place], Disposable, (SURE-FINE PEN NEEDLES) 31 gauge x 3/16 Daily injections fluconazole (DIFLUCAN) 150 mg tablet Take immediately and repeat in 3 days as needed. blood sugar diagnostic (BLOOD GLUCOSE TEST) test strip Test blood sugar(s) 2 times daily. Dx: Type 2 DM - Uncontrolled E11.65 Insulin: Yes Lancets lancets Test blood sugar(s) two times daily. Dx: E11.65. Insulin: Yes levonorgestrel (MIRENA) 20 mcg/24 hours (7 yrs) 52 mg IUD 1 Each by INTRAUTERINE route continuous. No current facility-administered medications for this visit. FAMILY HISTORY Problem Relation Age of Onset Heart Mother Diabetes Mother Hypertension Mother Arthritis Mother Heart Father Arthritis Father Cancer Maternal Grandmother stomach cancer. Social History Tobacco Use Smoking status: Every Day Current packs/day: 0.50 Average packs/day: 0.5 packs/day for 20.0 years (10.0 ttl pk-yrs) Types: Cigarettes Smokeless tobacco: Never Substance Use Topics Alcohol use: Yes Comment: occ Drug use: No EXAM: BP 122/64 Pulse 88 Temp 36.1 C (97 F) (Tympanic) Wt 94.8 kg (209 lb) LMP 08/13/2023 (Within Days) SpO2 96% BMI 35.87 kg/m PHYSICAL EXAM: Physical Exam Vitals reviewed. Constitutional: Appearance: Normal appearance. Musculoskeletal: Comments: Left great toe with an ingrown nail that is swollen and painful. No drainage but red and tender even to light touch. Skin: General: Skin is warm and dry. Comments: Great toe red and inflamed. No open area. Neurological: Mental Status: She is alert and oriented to person, place, and time. Psychiatric: Mood and Affect: Mood normal. Behavior: Behavior normal. LABS: urine dip and culture ASSESSMENT/PLAN: 1. Ingrown toenail - ICD9: 703.0, ICD10: L60.0 (primary diagnosis) Start Keflex - CONSULT TO PODIATRY - CEPHALEXIN 500 MG CAPSULE 2 x day for 5 days 2. Type 2 diabetes mellitus with hyperglycemia, with long-term current use of insulin (HCC) - ICD9: 250.00, 790.29, V58.67, ICD10: E11.65, Z79.4 - Uncontrolled - Continue current medications but switch Lantus to AM - ATORVASTATIN 20 MG TABLET 3. Dysuria - ICD9: 788.1, ICD10: R30.0 acute - Patient education for prevention given - UA DIP, URINE (POC) - URINE CULTURE Discussed treatment plan and patient voices understanding. Patient's questions answered appropriately. Medications and potential side effects were discussed and patient voices understanding. Return to the office as scheduled or as needed for worsening/no improvement. Lazara Melendez APRN.LILA documented in this encounter [facility] 02-15-2024 Telephone encounter Note The patient has been identified by name and date of : Yes Caregiver verified no other encounters exist for this prescription request: Yes Caregiver confirmed with patient/requestor that no other refills are due, in the near future, with this provider at this time: Yes The last office visit in the department: 12/23/2023 Does the patient have a future office visit with this provider/department: No Visit date not found Requested Prescriptions Pending Prescriptions Disp Refills flash glucose sensor (FREESTYLE ANA 2 SENSOR) kit 12 Each 3 Si Each three times a day as needed. Hermelinda Thurston LPN February 15, 2024 8:[address] [facility] 02-15-2024 Miscellaneous Notes The patient has been identified by name and date of : Yes Caregiver verified no other encounters exist for this prescription request: Yes Caregiver confirmed with patient/requestor that no other refills are due, in the near future, with this provider at this time: Yes The last office visit in the department: 12/23/2023 Does the patient have a future office visit with this provider/department: No Visit date not found Requested Prescriptions Pending Prescriptions Disp Refills flash glucose sensor (FREESTYLE ANA 2 SENSOR) kit 12 Each 3 Si Each three times a day as needed. Hermelinda Thurston LPN February 15, 2024 8:22 AM documented in this encounter [facility] 02-03-2024 Telephone encounter Note Addressed in result note. [facility] 02-03-2024 Miscellaneous Notes Addressed in result note. documented in this encounter [facility] 02-01-2024 History of Present illness Narrative Radiology Service Progress Note PATIENT NAME: Ginger Ching DATE OF SERVICE: February 01, 2024 TIME: 2:27 PM PATIENT IDENTITY VERIFICATION COMPLETED USING TWO (2) IDENTIFIERS: Name and Date of confirmed by patient verbally. FALL SCREENING: Has the patient had 2 falls in the last year or 1 fall with injury or currently using an Ambulatory Assistive Device (Walker, Cane, Wheelchair, Crutches, etc.)? No PATIENT GENDER DATA: Female. status: : No status: NO. PATIENT RELEVANT IMPLANT DATA REVIEWED: Not Applicable PATIENT PRESENTS WITH AN IMPLANTABLE OR ATTACHED CIAIO LUMITE INJECTOR: No RADIOLOGY DEPARTMENT: General X-ray: Exam(s) Completed: Spine X-Ray(s): Lumbar AP / LAT / L5-S1 PERIPHERAL IV DATA: Not applicable SIGNED BY: RT Nae(R) February 01, 2024 2:27 PM documented in this encounter [facility] 01-31-2024 History of Present illness Narrative Images from the original note were not included. [facility] [place] New Patient Evaluation CHIEF COMPLAINT: Foot numbness Ginger Ching is a 43 year old accompanied by her boyfriend. Consult was requested by self for an opinion regarding above CC. My final impression and recommendations will be communicated back to the requesting physician by way of the shared medical record or fax. January 31, 2024 HPI: Ms. Ching presents today secondary to issues of foot numbness. Pain in back of legs and more in L than R. Started a couple of months ago. Worsened over time. Saw her PCP and attempted to treat fibromyalgia. Tried Cymbalta and a muscle relaxant. Neither of these helped. Went to ED d/t worsening pain and states she was told it was neuropathy. Was given Lyrica in the ED. Took this TID. This did not help either. Has been taking gabapentin which doesn't help either. No LBP. No b/b changes. No saddle anesthesia. No sx in arms or hands. Feels sx in front and back of leg. Starts in foot and goes to behind the knee. Same in R leg. Feel weakness to legs. Notes this if she walks. Cannot walk far. Movement worsens symptoms. Nothing helps symptoms. Can wake her at night. She is diabetic. Dx a long time ago. Recent A1C was 10.4. Insulin recently increased. No thyroid ds, vitamin def. Mother with hx of neuropathy. Tried to schedule appointment with pain management but states she was told she cannot see pain management and to see neurology. Drinks about 2-4 Monster energy drinks per day. Alcohol: Denies Tobacco: Current smoker Drug: Denies Tsh low A1c is 10.4 as of 12/14 Has not had emg or back XR Consult was placed to pain management- does not have appt set up Was on phuong but SE, on cymbalta, now takign lyrica PAST MEDICAL HISTORY Diagnosis Date Anxiety 12/29/2012 [...] FLP TUBE ABDL/VAG APPR UNI/BI Tubal ligation Current Outpatient Medications on File Prior to Visit Medication Sig DULoxetine (CYMBALTA) 40 mg cpDR Take 1 capsule by mouth once daily. insulin glargine (LANTUS SOLOSTAR U-100 INSULIN) 100 unit/mL (3 mL) Inject 40 Units subcutaneously daily at bedtime. linaGLIPtin (TRADJENTA) 5 mg tab Take 1 tablet by mouth once daily. methocarbamol (ROBAXIN) 500 mg tablet Take 1 tablet by mouth three times a day as needed (Pain). levonorgestrel (MIRENA) 21 mcg/24 hr (8 yrs) 52 mg IUD 1 Each by INTRAUTERINE route as directed. STIOLTO RESPIMAT 2.5-2.5 mcg/actuation Inhale 2 Puffs as instructed once daily. albuterol HFA (PROVENTIL HFA, VENTOLIN HFA) 90 mcg/actuation inhaler Inhale 2 Puffs as instructed every 4 hours as needed for wheezing/shortness of breath. flash glucose scanning reader (FREESTYLE ANA 2 READER) 1 Each every hour as needed. Insulin [place], Disposable, (SURE-FINE PEN NEEDLES) 31 gauge x 3/16 Daily injections fluconazole (DIFLUCAN) 150 mg tablet Take immediately and repeat in 3 days as needed. flash glucose sensor (FREESTYLE ANA 2 SENSOR) kit 2 Each three times a day as needed. empagliflozin (JARDIANCE) 25 mg tablet Take 1 tablet by mouth daily with breakfast. blood sugar diagnostic (BLOOD GLUCOSE TEST) test strip Test blood sugar(s) 2 times daily. Dx: Type 2 DM - Uncontrolled E11.65 Insulin: Yes Lancets lancets Test blood sugar(s) two times daily. Dx: E11.65. Insulin: Yes levonorgestrel (MIRENA) 20 mcg/24 hours (7 yrs) 52 mg IUD 1 Each by INTRAUTERINE route continuous. No current facility-administered medications on file prior to visit. Social History Tobacco Use Smoking status: Every Day Current packs/day: 0.50 Average packs/day: 0.5 packs/day for 20.0 years (10.0 ttl pk-yrs) Types: Cigarettes Smokeless tobacco: Never Substance Use Topics Alcohol use: Yes Comment: occ Drug use: No ALLERGIES Allergen Reactions Cats Hives, Itching Dust environmental Grass Pollen Itching Acetaminophen GI Upset Cardizem [Diltiazem] GI Upset, Vomiting Percocet [Oxycodone* Vomiting Zyrtec [Cetirizine * Hives Review of Systems: ENT: denies loss of hearing, vertigo Vision: denies blurring vison, double vision/diplopia Dermatologic: denies rash Cardiopulmonary: denies chest pain, palpitations Respiratory: denies shortness of breath GI: denies recent nausea, vomiting, diarrhea, constipation : denies incontinence Musculoskeletal: + weakness Back/spine: denies low back or cervical pains Neuro: denies tremors, loss of feeling, dizziness, seizure, blackout, + paresthesia, facial paresthesia, facial weakness, difficulty in speech, slurring of words, dysarthria, dysphagia, memory loss, headache Physical Exam: 01/31/24 0856 BP: 117/83 BP Site: Right Arm BP Position: Sitting BP Cuff Size: Large Adult Pulse: 80 SpO2: 100% Weight: 92.6 kg (204 lb 2.3 oz) Height: 162.6 cm (5' 4) Patient is alert and in no distress. Dress is appropriate. Mood is appropriate Breathing appears regular and unstressed Neurologic examination: Cognitively intact. No deficits. No formal MOCA performed. CN: Pupils equal and reactive to light, extraocular movements intact with no nystagmus, face is symmetric with no facial droop, facial sensation intact bilaterally to light touch. V1-3, hearing intact bilaterally, symmetric evaluation of the soft palate, tongue is midline with no deviation, shoulder shrug is symmetric. Motor Examination: Right Upper Extremity: (of 5) Left Upper Extremity: (of 5) Shoulder Abduction: Deltoid (Ax/C5) 5 Shoulder Abduction 5 Elbow Flexion: Biceps (MC/R and C5/6) 5 Elbow Flexion 5 Elbow Extension: Triceps (R/C7) 5 Elbow Extension 5 Wrist Flexion (M/U and C6/7) 5 Wrist Flexion 5 Wrist Extension (R/C6) 5 Wrist Extension 5 Finger Abduction (U/T1) 5 Finger Abduction 5 Soaking Tank Worker 5 Soaking Tank Worker 5 Right Lower Extremity: (of 5) Left Lower Extremity: (of 5) Hip Flexion: Iliopsoas (F and L1/2) 5 Hip Flexion 5 Knee Extension: Quadriceps (F and L3/4) 4 Knee Extension 4 Knee Flexion: Hamstrings (S/S1) 4 Knee Flexion 4 Dorsiflexion: Tibialis Anterior (DP and L4/5) 4 Dorsiflexion 4 Plantarflexion: Gastrocnemius/Soleus (T and S1/2) 4 Plantarflexion 4 (Lower extremity exam limited d/t pain) Reflexes: Right Extremities Left Lower Extremities: Triceps (C7-8R) 2 Triceps 2 Biceps (C5-6MC) 2 Biceps 2 Brachioradialis (C5-6R) 2 Brachioradialis 2 Patellar (L3-4F) 2 Patellar 2 Achilles (S1-2S) 2 Achilles 2 Gracia's: negative bilaterally Sensory Intact to light touch upper and lower extremities bilaterally Pinprick: dec in BUE in hands as well as BLE to below the knee; dec in great toe bilaterally greater than fifth digit Temperature: dec in hands/feet and inc moving proximally Impaired proprioception LLE (toe position) Dec vibratory sensation L foot Coordination: No dysmetria on finger to nose. No tremors noted. No drift seen. Gait normal in stance and pattern. Tandem with mild imbalance. + Romberg Labs/studies: [facility]est Ref [facility] 12/15/2023 WBC 3.70 - 11.00 k/uL 8.85 RBC 3.90 - 5.20 m/uL 4.92 Hemoglobin 11.5 - 15.5 g/dL 15.1 Hematocrit 36.0 - 46.0 % 44.8 MCV 80.0 - 100.0 fL 91.1 MCH 26.0 - 34.0 pg 30.7 MCHC 30.5 - 36.0 g/dL 33.7 RDW-CV 11.5 - 15.0 % 13.0 Platelet Count 150 - 400 k/uL 263 MPV 9.0 - 12.7 fL 10.6 Neut% % 67.8 Abs Neut (ANC) 1.45 - 7.50 k/uL 6.00 Lymph% % 24.4 Abs Lymph 1.00 - 4.00 k/uL 2.16 Andrews% % 5.5 Abs Andrews <0.87 k/uL 0.49 Eosin% % 1.4 Abs Eosin <0.46 k/uL 0.12 Baso% % 0.7 Abs Baso <0.11 k/uL 0.06 Immature Gran % % 0.2 IMMATURE GRANS (ABS) <0.10 k/uL <0.03 NRBC /100 WBC 0.0 Absolute nRBC <0.01 k/uL <0.01 DTYPE Auto Protein, Total 6.3 - 8.0 g/dL 7.1 Albumin 3.9 - 4.9 g/dL 3.8 (L) Calcium 8.5 - 10.2 mg/dL 10.0 Bilirubin, Total 0.2 - 1.3 mg/dL 0.2 Alkaline Phosphatase 34 - 123 U/L 103 AST 13 - 35 U/L 16 ALT 7 - 38 U/L 12 Glucose 74 - 99 mg/dL 395 (H) BUN 7 - 21 mg/dL 18 Creatinine 0.58 - 0.96 mg/dL 0.86 Sodium 136 - 144 mmol/L 137 Potassium 3.7 - 5.1 mmol/L 5.0 Chloride 98 - 107 mmol/L 99 CO2 22 - 30 mmol/L 25 Anion Gap 8 - 15 mmol/L 13 eGFR >=60 mL/min/1.73m 86 Hemoglobin A1C 4.3 - 5.6 % 10.4 (H) Estimated Average Glucose mg/dL 252 Magnesium 1.7 - 2.3 mg/dL 2.4 (H) TSH 0.270 - 4.200 mIU/L 0.245 (L) T3 79 - 165 ng/dL 101 Free T4 0.9 - 1.7 ng/dL 1.4 Legend: (L) Low (H) High US DVT 08/31/23: IMPRESSION RIGHT SIDE - DEEP VEINS Negative for acute deep vein thrombosis. RIGHT SIDE - SUPERFICIAL VEINS Negative for superficial thrombophlebitis in the great saphenous vein and small saphenous vein. LEFT SIDE - DEEP VEINS Negative for acute deep vein thrombosis. LEFT SIDE - SUPERFICIAL VEINS Negative for superficial thrombophlebitis in the great saphenous vein and small saphenous vein Assessment/Plan: R20.2 Paresthesia of bilateral legs (primary encounter diagnosis) M79.604, M79.605 Pain in both lower extremities Comment: Pt presenting today for pain in BLE. She reports that pain started a few months prior to appointment today. She had follow-up with her PCP who attempted to treat with use of Cymbalta and a muscle relaxant without relief of symptoms. Given persistence of pain she presented to the ED ([facility]) at which time she was diagnosed with neuropathy and prescribed Lyrica. Referral was placed by her PCP to pain management, however, she was directed to the neurology clinic. Again, she reports no improvement of symptoms with use of Lyrica. She endorses generalized BLE weakness but denies changes to B/B or saddle anesthesia. It should be noted that A1c has consistently been >10 over the past 6 years. Exam today is notable for sensory deficits as discussed above; stocking glove pattern, but also decreased to greater in great toe bilaterally versus fifth digit. Generalized weakness noted throughout BLE with pain seemingly contributing to decreased effort. Symptoms suggestive of peripheral neuropathy likely secondary to history of uncontrolled BG. However, cannot definitively rule out lumbar radiculopathy given variations and sensory deficit. -XR L-spine to evaluate for degenerative changes contributing to possible radiculopathy (L4?) -Lab work to complete basic neuropathy workup, though again, likely secondary to uncontrolled BG -Increase gabapentin to 800mg TID -Continue Cymbalta 40mg but would consider increasing to 60 if no relief after increase in gabapentin dose -Consult to pain management for further management of neuropathic pain given failure of gabapentin, Lyrica, Cymbalta -Discussed EMG/NCV but deferred at this time Follow up in three months or sooner should new or changing symptoms occur. Office Visit on 01/31/24 XR LUMBAR GENERAL 3V AP/LAT/L5-S1 VITAMIN B12 IMMUNOFIXATION SCREEN, SERUM VITAMIN B6/PYRIDOXIN CONSULT TO PAIN MGT Dpahne Gresham APRN.LILA I spent a total of 54 minutes on the date of the service which included preparing to see the patient, [id number] patient care, completing clinical documentation, obtaining and/or reviewing separately obtained history, performing a medically appropriate examination, counseling and educating the patient/family/caregiver, and ordering medications, tests, or procedures. Portions of this note were created with electronic dictation and errors in spelling, syntax, and meaning may have occurred. documented in this encounter [facility] 01-13-2024 Telephone encounter Note Notified via [employer]. Thania Torres MA [facility] 01-13-2024 Miscellaneous Notes Notified via [employer]. Thania Torres MA I see that duloxetine was not listed on your medication list. Did you discontinue it? I thought that you were not taking gabapentin? Usually we maximize a medication before changing it to a different medication. However, sometime people respond better to one medication rather than another. Lyrica is in the same class as gabapentin. I have placed a consult for you yesterday to pain management. Please call to schedule. Scan on 01/07/2024 11:50 PM by ProviderJay Jay PA-C: Consultation - Emergency Medicine documented in this encounter [facility] 01-13-2024 Telephone encounter Note I see that duloxetine was not listed on your medication list. Did you discontinue it? I thought that you were not taking gabapentin? Usually we maximize a medication before changing it to a different medication. However, sometime people respond better to one medication rather than another. Lyrica is in the same class as gabapentin. I have placed a consult for you yesterday to pain management. Please call to schedule. [facility] 01-13-2024 Telephone encounter Note Scan on 01/07/2024 11:50 PM by ProviderJay Jay PA-C: Consultation - Emergency Medicine [facility] 01-13-2024 History of Present illness Narrative POPULATION HEALTH NAVIGATION OUTREACH Action/FYI [facility] Support: Called pt to schedule an appt in Pain Management. No VM unable to leave message. Number no longer in service Reason for Outreach Care Gap/HCC or Scheduling Wellness Visits Care Gaps due: N/A Patient Contacted: Unable or unnecessary to reach patient: Unable to leave message MyChart message sent Navigation Signature: Brandi Barkley January 13, 2024 9:46 AM documented in this encounter [facility] 01-12-2024 Telephone encounter Note Consult placed although we have room to go on duloxetine. They will tell her same thing, caused by uncontrolled DM and thyroid [facility] 01-12-2024 Miscellaneous Notes Consult placed although we have room to go on duloxetine. They will tell her same thing, caused by uncontrolled DM and thyroid Pt no showed for appointment today for pain in legs and feet. Last seen on 12/23/23. Daja Nunez MA January 12, 2024 5:22 PM documented in this encounter [facility] 01-12-2024 Telephone encounter Note Pt no showed for appointment today for pain in legs and feet. Last seen on 12/23/23. Daja Nunez MA January 12, 2024 5:[address] [facility] 12-27-2023 Telephone encounter Note Called pt and reviewed. She reports she has been taking the duloxetine 20mg two capsules since she was seen last. She will review with you at 12/29/23 appt . She also is concerned that she feels her toes are numb. She will review this also at the appt 12/29/23. [facility] 12-27-2023 Miscellaneous Notes Called pt and reviewed. She reports she has been taking the duloxetine 20mg two capsules since she was seen last. She will review with you at 12/29/23 appt . She also is concerned that she feels her toes are numb. She will review this also at the appt 12/29/23. Please let patient know that her Insurance requires us to change her duloxetine to 30 mg rather than 40. Since there is no 40 mg tablet. Order has been updated with her pharmacy. We may advance to 60 mg if she wants to hold off until her appointment later this week. Duloxetine 40 mg was denied. See formulary doses below. Note from payer: Documentation must be provided of medical necessity beyond convenience for why the member cannot be changed to the preferred drug(s): Duloxetine 20, 30, 60 MG [facility] Policy for Medical Necessity as posted on the [facility] website and [place] Un[employer] Preferred Drug List criteria were reviewed and per [place] Administrative Code Rule 5160-1-01 (C) and (B), a medically necessary service must include: generally accepted standards of medical practice, be clinically appropriate in administration, treatment and outcome and be the lowest cost alternative to effectively treat the condition. Please contact your provider to assist you with other treatment options that might be covered under your benefit package, or other services that might be available through the community. Did call the pharmacy and pt has not picked this up.(Cost with a discount card is about 50 $ for 30 tablets of the 40 mg.) Electronic PA completed for cymbalta documented in this encounter [facility] 12-27-2023 Telephone encounter Note Please let patient know that her Insurance requires us to change her duloxetine to 30 mg rather than 40. Since there is no 40 mg tablet. Order has been updated with her pharmacy. We may advance to 60 mg if she wants to hold off until her appointment later this week. [facility] 12-27-2023 Telephone encounter Note Duloxetine 40 mg was denied. See formulary doses below. Note from payer: Documentation must be provided of medical necessity beyond convenience for why the member cannot be changed to the preferred drug(s): Duloxetine 20, 30, 60 MG [facility] Policy for Medical Necessity as posted on the [facility] website and [facility] Preferred Drug List criteria were reviewed and per [place] Administrative Code Rule 5160-1-01 (C) and (B), a medically necessary service must include: generally accepted standards of medical practice, be clinically appropriate in administration, treatment and outcome and be the lowest cost alternative to effectively treat the condition. Please contact your provider to assist you with other treatment options that might be covered under your benefit package, or other services that might be available through the community. Did call the pharmacy and pt has not picked this up.(Cost with a discount card is about 50 $ for 30 tablets of the 40 mg.) [facility] 12-23-2023 Telephone encounter Note Electronic PA completed for cymbalta [facility] 12-23-2023 Instructions Lazara Melendez APRN.CNP - 12/23/2023 3:17 PM EDT 1) keep appt. 12/28 2) Increase duloxetine to 40 mg daily 3) Increase Lantus to 40 units at bedtime documented in this encounter [facility] 12-23-2023 History of Present illness Narrative This is a 43 year old female who presents today with: Patient presents with: Follow Up: Bilateral leg and foot pain HISTORY OF PRESENT ILLNESS: Ginger Ching is a 43 year old female. Patient presents with: Follow Up: Bilateral leg and foot pain Pain in legs is terrible. Feel week, kelsey in posterior calves. Also in thighs but less painful, still sensitive. Not testing BSS. Not sleeping well. Methocarbamol does make her sleepy. PAST MEDICAL HISTORY: PAST MEDICAL HISTORY 12/29/2012: Anxiety No date: Arrhythmia No date: Calculus of gallbladder with other cholecystitis, without mention of obstruction 05/01/2019: Chest pain in adult Comment: 05/01/2019 ER to hosp admit for chest pain: negative serial troponins. EKG negative. No stress testing. Resolved. No date: Diabetes (HCC) No date: Hypertension PAST SURGICAL HISTORY No date: DELIVERY ONLY Comment: , low transverse x2 03/09/2013: INSERTION OF IUD 10/03/08: LAPAROSCOPY SURG CHOLECYSTECTOMY 10/04/08: LAPAROSCOPY SURG CHOLECYSTOENETEROSTOMY No date: LIG/TRNSXJ FLP TUBE ABDL/VAG APPR UNI/BI Comment: Tubal ligation ALLERGIES Cats, Dust, Grass Pollen, Acetaminophen, Cardizem [Diltiazem], Percocet [Oxycodone-Acetaminophen], and Zyrtec [Cetirizine Hcl] MEDICATIONS Current Outpatient Medications Medication Sig linaGLIPtin (TRADJENTA) 5 mg tab Take 1 tablet by mouth once daily. DULoxetine (CYMBALTA) 20 mg capsule Take 1 capsule by mouth once daily. methocarbamol (ROBAXIN) 500 mg tablet Take 1 tablet by mouth three times a day as needed (Pain). levonorgestrel (MIRENA) 21 mcg/24 hr (8 yrs) 52 mg IUD 1 Each by INTRAUTERINE route as directed. STIOLTO RESPIMAT 2.5-2.5 mcg/actuation Inhale 2 Puffs as instructed once daily. albuterol HFA (PROVENTIL HFA, VENTOLIN HFA) 90 mcg/actuation inhaler Inhale 2 Puffs as instructed every 4 hours as needed for wheezing/shortness of breath. insulin glargine (LANTUS SOLOSTAR U-100 INSULIN) 100 unit/mL (3 mL) Inject 30 Units subcutaneously daily at bedtime. flash glucose scanning reader (CampalystSTYLE ANA 2 READER) 1 Each every hour as needed. Insulin [place], Disposable, (SURE-FINE PEN NEEDLES) 31 gauge x 3/16 Daily injections fluconazole (DIFLUCAN) 150 mg tablet Take immediately and repeat in 3 days as needed. flash glucose sensor (FREESTYLE ANA 2 SENSOR) kit 2 Each three times a day as needed. empagliflozin (JARDIANCE) 25 mg tablet Take 1 tablet by mouth daily with breakfast. blood sugar diagnostic (BLOOD GLUCOSE TEST) test strip Test blood sugar(s) 2 times daily. Dx: Type 2 DM - Uncontrolled E11.65 Insulin: Yes Lancets lancets Test blood sugar(s) two times daily. Dx: E11.65. Insulin: Yes levonorgestrel (MIRENA) 20 mcg/24 hours (7 yrs) 52 mg IUD 1 Each by INTRAUTERINE route continuous. No current facility-administered medications for this visit. FAMILY HISTORY Problem Relation Age of Onset Heart Mother Diabetes Mother Hypertension Mother Arthritis Mother Heart Father Arthritis Father Cancer Maternal Grandmother stomach cancer. Social History Tobacco Use Smoking status: Every Day Current packs/day: 0.50 Average packs/day: 0.5 packs/day for 20.0 years (10.0 ttl pk-yrs) Types: Cigarettes Smokeless tobacco: Never Substance Use Topics Alcohol use: Yes Comment: occ Drug use: No EXAM: BP 124/70 Pulse 85 Resp 16 Wt 92.5 kg (204 lb) LMP 08/13/2023 (Within Days) SpO2 98% BMI 35.02 kg/m PHYSICAL EXAM: Physical Exam Vitals reviewed. Constitutional: Appearance: Normal appearance. HENT: Head: Normocephalic. Cardiovascular: Rate and Rhythm: Normal rate and regular rhythm. Pulses: Normal pulses. Heart sounds: Normal heart sounds. Pulmonary: Effort: Pulmonary effort is normal. Breath sounds: Normal breath sounds. Musculoskeletal: Comments: Feet alexander and cool. D.P. 2 + robbi. No open sores Both calves are very sensitive to light touch. Thigh, some improvement Skin: General: Skin is warm and dry. Neurological: Mental Status: She is alert. LABS: DM- hgA1c >10, TSH low, free T4 & TSH normal ASSESSMENT/PLAN: 1. Fibromyalgia - ICD9: 729.1, ICD10: M79.7 Slight improvement - DULOXETINE 40 MG CAPSULE,DELAYED RELEASE - appt. 12/28 2. Type 2 diabetes mellitus with hyperglycemia, with long-term current use of insulin (HCC) - ICD9: 250.00, 790.29, V58.67, ICD10: E11.65, Z79.4 - Uncontrolled - Increase Lantus to 40 units at bedtime - LANTUS SOLOSTAR U-100 INSULIN 100 UNIT/ML (3 ML) SUBCUTANEOUS PEN - appt. 12/28 Discussed treatment plan and patient voices understanding. Patient's questions answered appropriately. Medications and potential side effects were discussed and patient voices understanding. Return to the office as scheduled or as needed for worsening no improvement. ALEJANDRO Steele APRN.CNP documented in this encounter [facility] 12-16-2023 Telephone encounter Note Added per client services. [facility] 12-16-2023 Miscellaneous Notes Added per client services. Please see if the lab can run a free T4 and T3 off of her labs done yesterday. TSH is low indicating a possible hyperthyroidism. documented in this encounter [facility] 12-16-2023 Telephone encounter Note Please see if the lab can run a free T4 and T3 off of her labs done yesterday. TSH is low indicating a possible hyperthyroidism. [facility] 12-15-2023 Note Addended by: Adis NUNEZ on: 12/15/2023 01:24 PM Modules accepted: Orders [facility] 12-15-2023 Miscellaneous Notes Addended by: DAJA NUNEZ on: 12/15/2023 01:24 PM Modules accepted: Orders documented in this encounter [facility] 12-15-2023 Instructions Lazara Melendez APRN.CNP - 12/15/2023 1:17 PM EDT 1) Stop gabapentin 2) Duloxetine 20 mg daily 3) Methocarbamol 500 mg 3 x day as needed for pain 4) Follow up in 2 weeks documented in this encounter [facility] 12-15-2023 History of Present illness Narrative This is a 43 year old female who presents today with: Patient presents with: Pain: Bilateral leg pain x 2 weeks. Sensitive to touch, florentino horses HISTORY OF PRESENT ILLNESS: Ginger Ching is a 43 year old female. Patient presents with: Pain: Bilateral leg pain x 2 weeks. Sensitive to touch, florentino horses Pain in bottoms of feet- burning and tingling. Legs pain just above inner thighs then down backs of legs. Feels like Florentino Horses down backs of legs. Tender to touch. Can't rub legs because they hurt to touch them. Can't work on feet. Hot water reduced pain. Standing and walking makes it worse. Started in July. Sitting in the chair right now- 6/10. It can get up to 10/10. Gabapentin just makes her high and tired, doesn't help. PAST MEDICAL HISTORY: PAST MEDICAL HISTORY 12/29/2012: Anxiety No date: Arrhythmia No date: Calculus of gallbladder with other cholecystitis, without mention of obstruction 05/01/2019: Chest pain in adult Comment: 05/01/2019 ER to hosp admit for chest pain: negative serial troponins. EKG negative. No stress testing. Resolved. No date: Diabetes (HCC) No date: Hypertension PAST SURGICAL HISTORY No date: DELIVERY ONLY Comment: , low transverse x2 03/09/2013: INSERTION OF IUD 10/03/08: LAPAROSCOPY SURG CHOLECYSTECTOMY 10/04/08: LAPAROSCOPY SURG CHOLECYSTOENETEROSTOMY No date: LIG/TRNSXJ FLP TUBE ABDL/VAG APPR UNI/BI Comment: Tubal ligation ALLERGIES Cats, Dust, Grass Pollen, Acetaminophen, Cardizem [Diltiazem], Percocet [Oxycodone-Acetaminophen], and Zyrtec [Cetirizine Hcl] MEDICATIONS Current Outpatient Medications Medication Sig gabapentin (NEURONTIN) 300 mg capsule Take 2 capsules by mouth three times a day for 90 days. STIOLTO RESPIMAT 2.5-2.5 mcg/actuation Inhale 2 Puffs as instructed once daily. albuterol HFA (PROVENTIL HFA, VENTOLIN HFA) 90 mcg/actuation inhaler Inhale 2 Puffs as instructed every 4 hours as needed for wheezing/shortness of breath. insulin glargine (LANTUS SOLOSTAR U-100 INSULIN) 100 unit/mL (3 mL) Inject 30 Units subcutaneously daily at bedtime. flash glucose scanning reader (FREESTYLE ANA 2 READER) 1 Each every hour as needed. Insulin [place], Disposable, (SURE-FINE PEN NEEDLES) 31 gauge x 3/16 Daily injections fluconazole (DIFLUCAN) 150 mg tablet Take immediately and repeat in 3 days as needed. flash glucose sensor (FREESTYLE ANA 2 SENSOR) kit 2 Each three times a day as needed. empagliflozin (JARDIANCE) 25 mg tablet Take 1 tablet by mouth daily with breakfast. linaGLIPtin (TRADJENTA) 5 mg tab Take 1 tablet by mouth once daily. blood sugar diagnostic (BLOOD GLUCOSE TEST) test strip Test blood sugar(s) 2 times daily. Dx: Type 2 DM - Uncontrolled E11.65 Insulin: Yes Lancets lancets Test blood sugar(s) two times daily. Dx: E11.65. Insulin: Yes levonorgestrel (MIRENA) 21 mcg/24 hr (8 yrs) 52 mg IUD 1 Each by INTRAUTERINE route as directed. levonorgestrel (MIRENA) 20 mcg/24 hours (7 yrs) 52 mg IUD 1 Each by INTRAUTERINE route continuous. No current facility-administered medications for this visit. FAMILY HISTORY Problem Relation Age of Onset Heart Mother Diabetes Mother Hypertension Mother Arthritis Mother Heart Father Arthritis Father Cancer Maternal Grandmother stomach cancer. Social History Tobacco Use Smoking status: Every Day Current packs/day: 0.50 Average packs/day: 0.5 packs/day for 20.0 years (10.0 ttl pk-yrs) Types: Cigarettes Smokeless tobacco: Never Substance Use Topics Alcohol use: Yes Comment: occ Drug use: No EXAM: BP 128/64 Pulse 96 Resp 16 Wt 93.9 kg (207 lb) LMP 08/13/2023 (Within Days) SpO2 96% BMI 35.53 kg/m PHYSICAL EXAM: Physical Exam Vitals reviewed. Constitutional: Appearance: Normal appearance. HENT: Head: Normocephalic. Cardiovascular: Rate and Rhythm: Normal rate and regular rhythm. Pulses: Normal pulses. Heart sounds: Normal heart sounds. Pulmonary: Effort: Pulmonary effort is normal. Breath sounds: Normal breath sounds. Abdominal: Palpations: Abdomen is soft. Musculoskeletal: Comments: Walking without assistive device Myalgia in legs Burning in feet Neurological: Mental Status: She is alert. LABS: ASSESSMENT/PLAN: 1. Fibromyalgia - ICD9: 729.1, ICD10: M79.7 Stop gabapentin - GABAPENTIN 300 MG CAPSULE replaced with duloxetine 20 mg daily 2. Type 2 diabetes mellitus with hyperglycemia, with long-term current use of insulin ([facility]) - ICD9: 250.00, 790.29, V58.67, ICD10: E11.65, Z79.4 - Control undetermined, due for labs - Continue current medications - TRADJENTA 5 MG TABLET Discussed treatment plan and patient voices understanding. Patient's questions answered appropriately. Medications and potential side effects were discussed and patient voices understanding. Return to the office as scheduled or as needed for worsening/no improvement. Lazara Melendez APRN.MAINTENANCE WELDER documented in this encounter [facility] 11-17-2023 History of Present illness Narrative Came in and wanted retested for COVID. Patient recently tested positive. Patient says her boss said a policy that they need to be retested before they return. Did inform patient that she would most likely test positive for months after having COVID. Did tell patient that she could have her boss call in and we can talk to her. Patient was okay with this care plan. documented in this encounter [facility] 11-11-2023 History of Present illness Narrative Subjective Nasal Congestion Associated symptoms include chills, congestion and coughing. Pertinent negatives include no shortness of breath, sinus pressure or sore throat. Ginger Ching is a 43 year old female who presents today with chief complaints of x 1 day of chills, headache, body aches, runny nose, and dry cough. 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 Her symptoms started yesterday and have remained stable since onset. She has utilized OTC tylenol as alleviating factors with moderate improvement. She denies shortness of breath, productive cough, abdominal pain, nausea, vomiting, or diarrhea. Review of Systems Constitutional: Positive for chills and fatigue. HENT: Positive for congestion, postnasal drip and rhinorrhea. Negative for sinus pressure, sinus pain and sore throat. Respiratory: Positive for cough. Negative for chest tightness, shortness of breath, wheezing and stridor. Cardiovascular: Negative for chest pain. Gastrointestinal: Negative for diarrhea, nausea and vomiting. Musculoskeletal: Positive for myalgias. PAST MEDICAL HISTORY Diagnosis Date Anxiety 12/29/2012 [...] Percocet [Oxycodone-Acetaminophen], and Zyrtec [Cetirizine Hcl] MEDICATIONS albuterol HFA (PROVENTIL HFA, VENTOLIN HFA) 90 mcg/actuation inhaler Inhale 2 Puffs as instructed every 4 hours as needed for wheezing/shortness of breath. empagliflozin (JARDIANCE) 25 mg tablet Take 1 tablet by mouth daily with breakfast. blood sugar diagnostic (BLOOD GLUCOSE TEST) test strip Test blood sugar(s) 2 times daily. Dx: Type 2 DM - Uncontrolled E11.65 Insulin: Yes levonorgestrel (MIRENA) 21 mcg/24 hr (8 yrs) 52 mg IUD 1 Each by INTRAUTERINE route as directed. gabapentin (NEURONTIN) 300 mg capsule Take 2 capsules by mouth three times a day for 90 days. STIOLTO RESPIMAT 2.5-2.5 mcg/actuation Inhale 2 Puffs as instructed once daily. insulin glargine (LANTUS SOLOSTAR U-100 INSULIN) 100 unit/mL (3 mL) Inject 30 Units subcutaneously daily at bedtime. flash glucose scanning reader (FREESTYLE ANA 2 READER) 1 Each every hour as needed. Insulin [place], Disposable, (SURE-FINE PEN NEEDLES) 31 gauge x 3/16 Daily injections fluconazole (DIFLUCAN) 150 mg tablet Take immediately and repeat in 3 days as needed. flash glucose sensor (FREESTYLE ANA 2 SENSOR) kit 2 Each three times a day as needed. linaGLIPtin (TRADJENTA) 5 mg tab Take 1 tablet by mouth once daily. Lancets lancets Test blood sugar(s) two times daily. Dx: E11.65. Insulin: Yes levonorgestrel (MIRENA) 20 mcg/24 hours (7 yrs) 52 mg IUD 1 Each by INTRAUTERINE route continuous. FAMILY HISTORY Problem Relation Age of Onset Heart Mother Diabetes Mother Hypertension Mother Arthritis Mother Heart Father Arthritis Father Cancer Maternal Grandmother stomach cancer. Social History Tobacco Use Smoking status: Every Day Packs/day: 0.50 Years: 20.00 Additional pack years: 0.00 Total pack years: 10.00 Types: Cigarettes Smokeless tobacco: Never Substance Use Topics Alcohol use: Yes Comment: occ Drug use: No Objective LMP 08/13/2023 (Within Days) Physical Exam HENT: Mouth/Throat: Mouth: Mucous membranes are moist. Pharynx: Oropharynx is clear. Cardiovascular: Heart sounds: Normal heart sounds. Pulmonary: Effort: Pulmonary effort is normal. No respiratory distress. Breath sounds: Normal breath sounds. No stridor. No wheezing, rhonchi or rales. Chest: Chest wall: No tenderness. Skin: General: Skin is warm and dry. Neurological: General: No focal deficit present. Mental Status: She is alert. Psychiatric: Mood and Affect: Mood normal. Assessment and Plan ASSESSMENT/PLAN: 1. URI, acute - ICD9: 465.9, ICD10: J06.9 (primary diagnosis) - Discussed viral etiology and rationale for treatment. - Symptomatic treatment with prn analgesia - Supportive care with fluids and rest - Follow up in one week if symptoms persist or sooner if worsening of symptoms. - COVID 19 test pending results 2. Close exposure to COVID-19 virus - ICD9: V01.79, ICD10: Z20.822 - daughter had COVID 19 - patient cares for her and lives with her ALVAREZ Campbell-student Supervising provider was present and guided the care of the patient for the entire session on this date. All documentation was reviewed and agreed upon. Arnulfo Lux APRN.LILA documented in this encounter [facility] 09-27-2023 History of Present illness Narrative Ginger presents for removal of IUD due to expiration of IUD. UNIVERSAL PROTOCOL / SAFETY CHECKLIST Procedure to be Performed: IUD Removal Sign In: A Moment of CARE was completed. Personnel directly involved with the procedure wore the appropriate PPE (Personal Protective Equipment). No special equipment needed. Patient/Surrogate Stated/Verified: PATIENT VERIFIED(optional for EMERGENT procedures): Patient name, Date of , Relevant allergies, and The intended procedure Time Out Communication: Intended patient and procedure match the source documents. Consent documented and matches the intended procedure. No relevant labs, photos, and/or imaging studies were applicable for review. Correct side/site marked and visible. Medications required for procedure verified. No fire risk assessment and interventions applicable. Implant(s) inserted: Correct implant(s) confirmed including size and side. and Expiration date(s) reviewed. Sign Out: SIGN OUT (optional for EMERGENT procedures): No specimen collected. All instruments, equipment, possible retained foreign bodies accounted for. Post-procedure follow-up management communicated and Plan of Care Visit completed when applicable. PROCEDURE: Speculum placed in vagina, IUD string visualized and grasped with ring forceps. ASSESSMENT/PLAN: IUD removed without difficulty, intact, and patient tolerated procedure well. Contraception plans: Mirena IUD Reviewed pre-conception guidelines including folic acid supplementation, optimal timing of Tracy Aguillon APRN.CNM Ginger presents today for IUD insertion for menstrual dysfunction. Patient's last menstrual period was 08/13/2023 (within days). GC/chlamydia: Negative on 09/14/2023 test: n/a Side effects including irregular bleeding were discussed with the patient. The patient understands that it should be removed in 8 years or sooner if the patient desires a . IUD source: office provided IUD lot #: [id number] Exp date: 04/24/2025 The cervix was prepped with betadine. The uterus sounded to 9 cm and the uterus is Midposition.. Using sterile technique, the Mirena IUD was inserted without difficulty and the string was cut to 3cm from the external os of the cervix. Patient tolerated procedure well. PLAN: Patient was advised to observe for signs and symptoms of infection including but not limited to fever, malodorous vaginal discharge and/or pain. The patient was told to check the string monthly for accurate placement. Bleeding expectations were reviewed. Follow up for next annual exam or sooner as needed. Tracy Aguillon APRN.CNM documented in this encounter [facility] 09-27-2023 Instructions Yobany Meyer MA - 09/27/2023 1:42 PM EDT POST IUD INSTRUCTIONS You may have irregular bleeding during the first 3 months of use. You may have mild-severe cramping for the next 48 hours. You may use over the counter medication (Motrin, Tylenol) as needed. Your IUD must be removed or replaced based on the following table: IUD Type Removed or replaced within: Chelo 3 years Kyleena 5 years Mirena 8 years Liletta 8 years Paragard 10 years Call the office for signs/symptoms of infection such as severe cramping, fever, or unusual bleeding. Check for string placement as instructed by your doctor. If you have any additional questions, please contact the office. documented in this encounter [facility] 09-15-2023 Telephone encounter Note Please notify patient that she does have a yeast infection. I would like her to use Monistat 7 (or generic) 1 of a applicator full every night for 7 nights. If symptoms do not improve please carmella the office. MyChart msg sent. Silvia Justin APRN.CNP [facility] Work Phone: 09-15-2023 Miscellaneous Notes Please notify patient that she does have a yeast infection. I would like her to use Monistat 7 (or generic) 1 of a applicator full every night for 7 nights. If symptoms do not improve please carmella the office. MyChart msg sent. Silvia Justin APRN.CNP Attempted to notify patient. The number we have on file is not a working number. Isadora Sparrow, ABHI She can google the devices for best quezada. She can type in pelvic floor at home training device. MICMALI is an option. I put the info in her AVS and let her know at appointment so she has the info for kegels as well. Thanks, Tracy Aguillon APRN.CNM Patient seen in office today. She wants to know where she can obtain the device for the pelvic floor exercises. Isadora Sparrow RN documented in this encounter [facility] 09-14-2023 Telephone encounter Note Attempted to notify patient. The number we have on file is not a working number. Isadora Sparrow RN [facility] 09-14-2023 Telephone encounter Note She can google the devices for best quezada. She can type in pelvic floor at home training device. MICMALI is an option. I put the info in her AVS and let her know at appointment so she has the info for kegels as well. Thanks, Tracy Aguillon APRN.CNM [facility] Work Phone: 09-14-2023 Telephone encounter Note Patient seen in office today. She wants to know where she can obtain the device for the pelvic floor exercises. Isadora Sparrow RN [facility] 09-14-2023 Instructions Tracy Aguillon APRN.CNM - 09/14/2023 2:39 PM EDT Perifit or Dominga TIPS ON PRACTICING PELVIC FLOOR (KEGEL) EXERCISES How to identify the correct muscle? 1. To find the correct muscle, place your finger inside your vagina or rectum. Try to squeeze around your finger. That is the muscle you want to exercise! This muscle is the same one that you use to hold back gas or a bowel movement. 2. Remember!! Never use your stomach, legs, or buttock muscles. The most common mistake is using too many muscles. To find out if you are also alex your stomach muscles, place your hand on your abdomen while you squeeze your pelvic floor muscle. If you feel your abdomen move, then you are also moving these muscles. 3. These exercises can be practiced anytime, in any place. Since this muscle is internal, no one can see you exercising this muscle. How do I perform the exercise? 1. Squeeze the muscle which you identified earlier. Squeeze and hold for 10 seconds, then relax for 10 second period. IT IS JUST IMPORTANT TO RELAX IT IS TO CONTRACT THIS MUSCLE! 2. Perform 15 exercises in the morning, 15 in the afternoon, 20 at night. You can also do them for 10 minutes, 3 times a day. Try to work up to doing 25 exercises at one time. When you first begin to exercise these muscles, your muscle may tire easily and you may not be able to contract and squeeze of 10 seconds. However, slowly over a 2 week period, you will build to 10 second contractions. When will I notice a change? In approximately 2 weeks of consistent daily exercises, you will notice less accidents (incontinence and leakage). In one month, you will see an even bigger difference. Can these exercises harm me? No! These exercises cannot harm you in any way. Most patients find them relaxing and easy. If you get back or stomach pain after you exercise, then you are rare probably trying too hard and using stomach and/or back muscles. Go back and find the muscle and remember this exercise should feel mild and easy. Remember to focus on relaxation, as well as contraction of the muscle. In the time, you will learn to practice effortlessly. Eventually, work these exercises in as part of your lifestyle, like brushing your teeth or eating a meal. This will help you to remain successful for a lifetime! If you have any other questions or concerns, please do not hesitate to call. Eldon Scherer MD [facility] Department of Urology [address] [address] documented in this encounter [facility] 09-14-2023 History of Present illness Narrative Ginger is a 43 year old who presents for an annual gynecologic exam with complaints, IUD removal . Menses: Has Mirena IUD - was due to come out in 2020. Menses once a month. Partner unfaithful, request full std testing Contraception: tubal sterilization HPV vaccine: N/A Last Pap: 02/17/2018 ASCUS HPV: 02/10/2018 negative History of abnormal pap: Yes Last mammogram: 2022 normal Sexually active: Yes Time with current partner: 3 years Pain with intercourse: No Postcoital bleeding: No Hot flashes: No Night sweats: No Vaginal dryness: yes but has always been that way. 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 SOCIAL HISTORY Social History Tobacco Use Smoking status: Every Day Packs/day: 0.50 Years: 20.00 Additional pack years: 0.00 Total pack years: 10.00 Types: Cigarettes Smokeless tobacco: Never Substance Use Topics Alcohol use: Yes Comment: occ Drug use: No REVIEW OF SYSTEMS Abdomen: No abdominal pain, nausea, vomiting, diarrhea, or constipation. No bloating, early satiety, indigestion, or increased flatulence. Bladder: No dysuria, gross hematuria, urinary frequency, urinary urgency. Urinary stress incontinence with cough. Breast: No breast lumps, nipple d/c, overlying skin changes, redness or skin retraction. Allergies and current medication updated:Yes EXAM: BP 120/74 Ht 5' 4 (1.63m) Wt 213 lb 9.6 oz (96.9kg) LMP 02/23/2013 BMI 36.65 kg/(m^2). GENERAL: pleasant, female in no apparent distress HEENT: Normocephalic, atraumatic, mucus membranes moist, and no lesions NECK: Supple, full range of motion, no adenopathy, and thyroid normal DERMATOLOGY: Normal, without lesions, non-icteric, and non-hirsute BREAST: soft, non-tender, symmetric, no dominant mass, normal nipple-areolar complex, no lymphadenopathy, and no nipple discharge CHEST: Normal inspiratory effort ABDOMEN: soft, non-tender, and no masses PELVIC: external genitalia normal, normal Bartholin's glands, urethra, [place]'s glands, no vulvar lesions, no cervical lesions, good vaginal support, physiologic discharge present, normal appearing perineal body and perianal region BIMANUAL: uterus normal size, shape and consistency, no adnexal masses, and non-tender RECTOVAGINAL: deferred. NEURO: alert and oriented x3,exam grossly non-focal EXTREMITIES: normal ASSESSMENT/PLAN: 1. Encounter for gynecological examination (general) (routine) with abnormal findings - ICD9: V72.31, ICD10: Z01.411 (primary diagnosis) - Completed pelvic and breast exam - Encouraged monthly BSE - Follow up for annual exam in one year. - PAP TEST - LORENZO/TRICHOMONAS NAAT - BACTERIAL VAGINOSIS NAAT - GONORRHEA/CHLAMYDIA NAAT - MENDEL SCREENING W ILAN 2. Screening for cervical cancer - ICD9: V76.2, ICD10: Z12.4 - Completed pelvic and breast exam - Encouraged monthly BSE - Follow up for annual exam in one year. - PAP TEST 3. Encounter for screening for human papillomavirus (HPV) - ICD9: V73.81, ICD10: Z11.51 4. Encounter for screening mammogram for breast cancer - ICD9: V76.12, ICD10: Z12.31 - Completed pelvic and breast exam - Encouraged monthly BSE - Follow up for annual exam in one year. - MENDEL SCREENING W ILAN 5. Dense breast tissue - ICD9: 793.82, ICD10: R92.30 - MENDEL SCREENING W ILAN 6. IUD (intrauterine device) in place - ICD9: V45.51, ICD10: Z97.5 - REMOVE INTRAUTERINE DEVICE - INSERT INTRAUTERINE DEVICE 7. WES (stress urinary incontinence, female) - ICD9: 625.6, ICD10: N39.3 -Reviewed at home devices to help with pelvic floor as she is unable to attend PFPT due to schedule. Kegels reviewed. If no improvement to call office. 8. Screening for STDs (sexually transmitted diseases) - ICD9: V74.5, ICD10: Z11.3 - SYPHILIS TOTAL W/REFLEX - HIV 1/2 COMBO WITH REFLEX TO DIFFERENTIATION - HEPATITIS C ANTIBODY IA WITH CONFIRMATION - HEPATITIS B SURFACE ANTIGEN 1) Health maintenance: Pap done with HPV. Mammogram ordered. Nutrition, exercise and routine health maintenance exams reviewed. Calcium/Vitamin D supplementation information provided. Smoking cessation: Smoking cessation encouraged and resources provided. Benefits of smoking cessation reviewed. Patient encouraged to avoid smoking. Colon cancer screening: start at age 45 Lipids/glucose: followed by PCP Vitamin D: followed by PCP 2) Contraception: IUD and tubal sterilization. Contraceptive options reviewed and information provided. 3) STD screening: Accepts full STD screeening including HIV, Syphilis and Hepatitis. 4) Follow up one year or sooner as needed Tracy Aguillon APRN.CNM documented in this encounter [facility] 09-02-2023 Telephone encounter Note Patient returned call and went over results, notes from Dmitriy Melendez ANTIQUE FURNITURE RESTORER with understanding. Aware rx sent to pharmacy. 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 Aware rx sent to pharmacy. VM left for patient to call provider's office and ask for a nurse for message below. Carmen Osorio RN Venous dopplers were negative for blood clots. I suspect this is sciatica. Certainly nerve pain with the inability to touch the calf. I would like to increase gabapentin to 600 mg 3 x day. Watch for dizziness the first day or so. May increase sleepiness, if it does, cut back to 600 mg am, 300 noon, 600 mg at bedtime. Follow up in 2 weeks. Patient asking provider to advise on recent US results, when able. Thank you. documented in this encounter [facility] 09-01-2023 Telephone encounter Note VM left for patient to call provider's office and ask for a nurse for message below. Carmen Osorio RN [facility] 09-01-2023 Telephone encounter Note Venous dopplers were negative for blood clots. I suspect this is sciatica. Certainly nerve pain with the inability to touch the calf. I would like to increase gabapentin to 600 mg 3 x day. Watch for dizziness the first day or so. May increase sleepiness, if it does, cut back to 600 mg am, 300 noon, 600 mg at bedtime. Follow up in [address] [facility] 08-31-2023 Telephone encounter Note Patient asking provider to advise on recent US results, when able. Thank you. [facility] 08-30-2023 Instructions Lazara Melendez APRN.CNS - 08/30/2023 11:30 AM EDT 1) Get labs 2) CGM order sent to [facility] 3) Needs STAT venous doppler robbi today 4) Augmentin 2 x day for 10 days 5) Diflucan x 1 if needed for yeast infection 6) Follow up in 6months documented in this encounter [facility] 08-30-2023 History of Present illness Narrative This is a 43 year old female who presents today with: Patient presents with: Diabetes: Follow up HISTORY OF PRESENT ILLNESS: Ginger Ching is a 43 year old female. Patient presents with: Diabetes: Follow up Left calf pain- hurts to touch for the past 1 month. Started as a calf. Cramping. Now, cannot even touch on bed. Had stress test at [facility], seeing them for follow up on . DM: CGM not working. Has plenty of sensors but meter not working for a month. Reports overall feeling well. Medication side effects: No. Home sugar checks: CGM broke- 4-6 weeks ago Hypoglycemic spells: No. Watching diet: No. Unexpected weight loss: No. Polyuria, polydipsia: No. Vision Changes: No. Foot lesions or numbness or pain: No. Fibromyalgia sucks. It was in her back so bad. On gabapentin and it helps. Breathing has been good. PAST MEDICAL HISTORY: PAST MEDICAL HISTORY Diagnosis Date Anxiety 12/29/2012 [...] Percocet [Oxycodone-Acetaminophen], and Zyrtec [Cetirizine Hcl] MEDICATIONS Current Outpatient Medications Medication Sig STIOLTO RESPIMAT 2.5-2.5 mcg/actuation Inhale 2 Puffs as instructed once daily. albuterol HFA (PROVENTIL HFA, VENTOLIN HFA) 90 mcg/actuation inhaler Inhale 2 Puffs as instructed every 4 hours as needed for wheezing/shortness of breath. gabapentin (NEURONTIN) 300 mg capsule Take 1 capsule by mouth three times a day for 90 days. empagliflozin (JARDIANCE) 25 mg tablet Take 1 tablet by mouth daily with breakfast. insulin glargine (LANTUS SOLOSTAR U-100 INSULIN) 100 unit/mL (3 mL) Inject 25 Units subcutaneously daily at bedtime. (Patient taking differently: Inject 30 Units subcutaneously daily at bedtime.) linaGLIPtin (TRADJENTA) 5 mg tab Take 1 tablet by mouth once daily. levonorgestrel (MIRENA) 20 mcg/24 hours (7 yrs) 52 mg IUD 1 Each by INTRAUTERINE route continuous. Insulin [place], Disposable, (SURE-FINE PEN NEEDLES) 31 gauge x 3/16 Daily injections fluconazole (DIFLUCAN) 150 mg tablet Take immediately and repeat in 3 days as needed. flash glucose sensor (FREESTYLE ANA 2 SENSOR) kit 2 Each three times a day as needed. blood sugar diagnostic (BLOOD GLUCOSE TEST) test strip Test blood sugar(s) 2 times daily. Dx: Type 2 DM - Uncontrolled E11.65 Insulin: Yes Lancets lancets Test blood sugar(s) two times daily. Dx: E11.65. Insulin: Yes No current facility-administered medications for this visit. FAMILY HISTORY Problem Relation Age of Onset Heart Mother Diabetes Mother Hypertension Mother Arthritis Mother Heart Father Arthritis Father Cancer Maternal Grandmother stomach cancer. Social History Tobacco Use Smoking status: Every Day Packs/day: 0.50 Years: 20.00 Additional pack years: 0.00 Total pack years: 10.00 Types: Cigarettes Smokeless tobacco: Never Substance Use Topics Alcohol use: Yes Comment: occ Drug use: No REVIEW OF SYSTEMS Review of Systems Constitutional: Negative for appetite change, chills, fatigue and fever. HENT: Negative for rhinorrhea and sore throat. Eyes: Negative for visual disturbance. Respiratory: Negative for cough, shortness of breath and wheezing. Cardiovascular: Positive for leg swelling. Negative for chest pain and palpitations. Gastrointestinal: Negative for abdominal pain, constipation and diarrhea. Endocrine: Negative for cold intolerance, heat intolerance, polydipsia and polyphagia. Genitourinary: Negative for dysuria and hematuria. Musculoskeletal: Positive for arthralgias and myalgias. Negative for back pain. Skin: Positive for rash. Negative for wound. Psoriasis- no change Neurological: Positive for headaches. Negative for tremors, speech difficulty and weakness. This week, headaches and very tired. Ate and went to bed after breakfast and lunch. Psychiatric/Behavioral: Negative for agitation and behavioral problems. EXAM: BP 132/80 Pulse 87 Resp 20 Wt 95.3 kg (210 lb) LMP 02/23/2013 SpO2 95% BMI 34.95 kg/m PHYSICAL EXAM: Physical Exam Vitals reviewed. Constitutional: Appearance: Normal appearance. HENT: Head: Normocephalic. Right Ear: Tympanic membrane and ear canal normal. Left Ear: Tympanic membrane and ear canal normal. Mouth/Throat: Pharynx: Oropharyngeal exudate present. Neck: Vascular: No carotid bruit. Cardiovascular: Rate and Rhythm: Normal rate and regular rhythm. Pulmonary: Effort: Pulmonary effort is normal. Breath sounds: Normal breath sounds. Abdominal: General: Abdomen is flat. Bowel sounds are normal. Palpations: Abdomen is soft. Musculoskeletal: General: Swelling and tenderness present. Normal range of motion. Cervical back: Normal range of motion and neck supple. Right lower leg: Edema present. Left lower leg: Edema present. Lymphadenopathy: Cervical: No cervical adenopathy. Skin: General: Skin is warm and dry. Neurological: General: No focal deficit present. Mental Status: She is alert. Psychiatric: Mood and Affect: Mood normal. Behavior: Behavior normal. LABS: pending ASSESSMENT/PLAN: 1. Bilateral calf pain - ICD9: 729.5, ICD10: M79.661, M79.662 (primary diagnosis) Get venous doppler today if possible 2. Type 2 diabetes mellitus with hyperglycemia, with long-term current use of insulin (HCC) - ICD9: 250.00, 790.29, V58.67, ICD10: E11.65, Z79.4 - Control undetermined, due for labs - Continue current medications - LANTUS SOLOSTAR U-100 INSULIN 100 UNIT/ML (3 ML) SUBCUTANEOUS PEN 3. Psoriasis - ICD9: 696.1, ICD10: L40.9 Stable 4. Hypertension, unspecified type - ICD9: 401.9, ICD10: I10 - Controlled - Recommend home blood pressure monitoring, to bring results to next visit - Encouraged sodium restriction, DASH or Mediterranean diet - Recommend regular aerobic exercise 5. Mixed hyperlipidemia - ICD9: 272.2, ICD10: E78.2 - Control undetermined, due for labs - Continue current medications - Counseled on healthy diet and regular exercise 6. Fibromyalgia - ICD9: 729.1, ICD10: M79.7 Ongoing - Gabapentin helps 7. Essential hypertension - ICD9: 401.9, ICD10: I10 - Controlled - Home blood pressure readings controlled - Recommend home blood pressure monitoring, to bring results to next visit - Encouraged sodium restriction, DASH or Mediterranean diet - Recommend regular aerobic exercise 8. Screening for diabetic retinopathy - ICD9: V80.2, ICD10: Z13.5 Needs eye exam - CONSULT TO OPHTHALMOLOGY 9. Encounter for immunization - ICD9: V03.89, ICD10: Z23 ongoing 10. Acute non-recurrent maxillary sinusitis - ICD9: 461.0, ICD10: J01.00 - Will begin treatment with Augmentin 875 mg PO BID for 10 days 11. Vaginal yeast infection - ICD9: 112.1, ICD10: B37.31 Diflucan X 1 ordered Discussed treatment plan and patient voices understanding. Patient's questions answered appropriately. Medications and potential side effects were discussed and patient voices understanding. Return to the office as scheduled or as needed for worsening/no improvement. Lazara Melendez APRN.CNS documented in this encounter [facility] 08-15-2023 Note ORIGINAL NM MYOCARDIAL SPECT STRESS/REST CLINICAL STATEMENT: CP TECHNIQUE: Lexiscan dose:0.4 mg Radiopharmaceutical (stress): Tc-99m Sestamibi Dose:30.4 mCi Radiopharmaceutical (rest): Tc-99m Sestamibi Dose:10.4 mCi SPECT acquisition and processing Reconstruction and reorientation of SPECT images into short axis, vertical and horizontal long axis planes Quantitative LVEF assessment COMPARISON:2019 REPORT: Poststress myocardial perfusion images showed moderate perfusion defect at apical lateral wall and mid anterior wall Resting myocardial perfusion images showed similar perfusion LVEF 57% with normal wall motion and wall thickening TID 1.09 IMPRESSION: Negative for gross ischemia or infarct imaging part of the stress test, limited sensitivity due to poor quality study Extracardiac GI uptake was noted, breast attenuation was noted LVEF 57% with normal wall motion Compared to 2019 similar area perfusion defect was noted post in anterior and apical lateral monzon, but less severity. More matched perfusion defect was noted now Interpreted By: Kvng Vargas Preliminary Report By: Kvng Vargas Electronically Signed By: Kvng Vargas Dictated Date: 08/15/2023 2:54:13 PM Prelim Date: 08/15/2023 2:54:13 PM Sign Date: 08/15/2023 2:59:05 PM Ordering Provider:John Harvey [facility] 07-25-2023 Miscellaneous Notes Letter sent to patient to call office to set up appt. Daja Nunez MA 2nd attempt to call pt to r/s.. her appointment Unable to LVM Tried to call patient to schedule appointment, no answer and unable to leave a message Attempted to contact patient. She was scheduled for appt that had to be canceled. Calling to help her reschedule for her diabetes. Voicemail is full unable to leave message. Will send [employer] Brasilt message to patient also. (With Ron going to department mgr we are trying to get patients in to see providers on PCP team.) documented in this encounter [facility] 06-13-2023 Miscellaneous Notes Patient has been identified by name and date of : Yes Patient phones for refill(s): Requested Prescriptions Pending Prescriptions Disp Refills Insulin [place], Disposable, (SURE-FINE PEN NEEDLES) 31 gauge x 3/16 100 Each 0 Sig: Daily injections Date of last office visit in primary care: 02/24/2023 Date of next office visit in primary care: Visit date not found Please advise. Thank you. Alejandro Bates LPN. documented in this encounter [facility] 11-01-2022 Miscellaneous Notes Rivalroo message sent to pt notifying her of [...] on 10/27/22 HGB A1C COMP METABOLIC PANEL ThanksRon PA-C documented in this encounter [facility] 10-27-2022 Miscellaneous Notes October 28, 2022 PID: [id number] Ginger Hinson [address] [place] [address] Dear Ms. Hinson, We are pleased to inform you that [...] report will be kept on file at [facility] as part of your permanent medical record and are available for your continuing care. Thank you for allowing us to help in meeting your health care needs. Sincerely, Dr. Pena Interpreting Radiologist [facility] (Normal over 40) documented in this encounter [facility] 10-25-2022 History of Present illness Narrative Radiology Service Progress Note PATIENT NAME: Ginger Hinson DATE OF SERVICE: October 25, 2022 TIME: [...] 2022 1:09 PM documented in this encounter [facility] 09-23-2022 Miscellaneous Notes Spoke to nurse [...] Called to check on PA status through [employer] which states denied. [employer] advised will not cover unless 120 days or more of tried formulary options Truliicty, amaryl, tradjenta are tried Mag Alejandro Ma Prior Authorization has been completed online at [employer] for STEPHANIEYOVANY, will await response. [id number] Please keep encounter open until final decision has been received and documented from insurance company. Mag Alejandro MA documented in this encounter [facility] 09-22-2022 Miscellaneous Notes Patient phones requesting [...] Alejandro Bates LPN documented in this encounter [facility] 07-21-2022 Miscellaneous Notes Patient has been [...] Margy Lancaster RN documented in this encounter [facility] 06-29-2022 History of Present illness Narrative Radiology Service Progress Note PATIENT NAME: Ginger Hinson DATE OF SERVICE: June 29, 2022 TIME: [...] RT Melody(R) June 29, 2022 3:40 PM documented in this encounter [facility] 06-29-2022 Miscellaneous Notes Spoke with pt and information listed below given. Pt verbalizes understanding. Pt will come in to get done. Hermelinda Thurston LPN Attempted to contact patient, no answer and VM full. Rivalroo message sent. Monique Bright MA Please have her come in to repeat CXR- orders placed. Thanks, Ron Ortega PA-C documented in this encounter [facility] 06-29-2022 Miscellaneous Notes 9:30a.m BS reading 204. Last meal around 1:30a.m Virginia Garcia documented in this encounter [facility] 06-28-2022 Instructions Sonia Ortega PA-C - 06/28/2022 3:26 PM EST Check blood sugars four times a day before meals and at bedtime x 1 week and send me results. Drink 64oz no caffeinated, non-alcoholic fluids daily. Taper prednisone as directed: call or mychart progress in 5 days documented in this encounter [facility] 06-28-2022 History of Present illness Narrative 41 year old female with c/o whole body aches like I have the flu again. Cough, headache, body aches. Hasn't checked temperature. [...] significant difficulty with testing 04/29/2022 chest x-ray [facility]: Persistent infiltration right lower lobe with a [...] Hyperglycemia, With Long-Term Current Use of Insulin (Ltac, Located [facility]) Reflex Sympathetic Dystrophy Neuropathic Pain Rsd Lower Limb Lupus (Ltac, Located Within [facility]) Fibromyalgia Patellofemoral Instability of Both Knees With [...] mouth twice daily. 180 tablet 0 Insulin [place], Disposable, (SURE-FINE PEN NEEDLES) 31 gauge x [...] due to methicillin resistant Staphylococcus aureus (MRSA) ([facility]) - ICD9: 482.42, ICD10: J15.212 (primary diagnosis) Need a repeat chest x-ray due to her current issues. - XR CHEST 2V FRONTAL/LAT 2. Lupus ([facility]) - ICD9: 710.0, ICD10: M32.9 Has been [...] hyperglycemia, with long-term current use of insulin ([facility]) - ICD9: 250.00, 790.29, V58.67, ICD10: E11.65, [...] Sonia Ortega PA-C documented in this encounter [facility] 06-22-2022 Miscellaneous Notes Due for follow-up. [...] Alejandro Bates LPN documented in this encounter [facility] 06-08-2022 Procedure note [facility] 05-04-2022 Miscellaneous Notes Notified of result via MyChart Valentin Ortega PA-C documented in this encounter [facility] 04-29-2022 Hospital Discharge instructions Additional Instructions COVID-negative chest ray with improving findings of pneumonia compared to previous. White count normal at 9.2. Glucose 491 with normal gap of 7. Status post insulin with improvement. Monitor your sugars. Urine with findings of UTI with your symptoms take antibiotics as prescribed. Follow-up with your doctor. Return if any worsening symptoms. [facility] Work Phone: 04-27-2022 History of Present illness Narrative Radiology Service Progress Note PATIENT NAME: Ginger Hinson DATE OF SERVICE: April 27, 2022 TIME: [...] RT Nae(R) April 27, 2022 9:30 AM documented in this encounter [facility] 04-23-2022 History of Present illness Narrative 41 year old female with c/o hospital discharge follow up Hospital admission discharge follow-up: Date of admission 04/07/2022 Date of discharge 04/12/2022 Discharge diagnoses: 1. Community-acquired pneumonia due to methicillin-resistant staph aureus 2. Acute respiratory failure with hypoxemia 04/02/2022 presented to [facility] emergency department with complaint of 3 to [...] syrup, 140 mL 04/07/2022 Returned to the [facility] emergency department with complaint of upper respiratory infection over 10 days with known positive influenza A, using [id number] medications but progressively short of breath coughing up yellow-green sputum over the last few days. States she quit smoking 5 days prior. Increased cough, shortness of breath, mild dyspnea on exertion. Exam: Vital signs 96.8 [id number]% RA Documented as no acute tachypnea but [...] Hyperglycemia, With Long-Term Current Use of Insulin (Ltac, Located Within [facility]) Reflex Sympathetic Dystrophy Neuropathic Pain Rsd Lower Limb Lupus (Ltac, Located [facility]) Fibromyalgia Patellofemoral Instability of Both Knees With [...] Take by mouth. clotrimazole (MYCELEX) 10 mg radha Use 1 Radha as instructed five times daily for 14 days. 70 tablet 0 insulin glargine (LANTUS SOLOSTAR U-100 INSULIN) 100 unit/mL (3 mL) Inject 30 Units subcutaneously daily at bedtime. 5 Each 3 flash glucose sensor (FREESTYLE ANA 2 SENSOR) kit 2 Each three times daily as needed. 2 Each 2 Insulin [place], Disposable, (SURE-FINE PEN NEEDLES) 31 gauge x [...] due to methicillin resistant Staphylococcus aureus (MRSA) ([facility]) - ICD9: 482.42, ICD10: J15.212 (primary diagnosis) [...] hyperglycemia, with long-term current use of insulin ([facility]) - ICD9: 250.00, 790.29, V58.67, ICD10: E11.65, [...] context and comparison. documented in this encounter [facility] 04-22-2022 Miscellaneous Notes Both listed contacts inactive, will send letter to listed address. Heather Nunn MA Attempted to contact with voice recording stating that customer is not available to try again later. Becky Douglass LPN Please notify that fungal culture became positive, continue treatment, f/u if s/s persist documented in this encounter [facility] 04-20-2022 Miscellaneous Notes 3rd attempt to reach pt without success. Still unable to reach patient.Evelyn Robles LPN Unable to reach patient. Mailbox full/Mailbox not set up/ Number incorrect. Please try again later. Ginger Quevedo No fungal growth after 3 days. Will call again if culture changes. documented in this encounter [facility] 04-15-2022 History of Present illness Narrative Images from the original note were not included. Subjective The history is provided by the patient. No product test specialist was used. HPI Ginger Hinson is a 41 year old female who [...] have confirmed and edited as necessary, the [facility] Review of Systems Constitutional: Negative for [...] be thrush Cultures done Start on clotrimazole radha Follow up with PCP as needed - FUNGAL SCREEN Diagnosis and treatment plan were discussed and questions were answered to the patient's satisfaction. Pt acknowledged understanding of concepts and follow up plan. Specific signs and symptoms that would indicate the need for higher level of care were discussed in detail warranting prompt ER evaluation. Ines Ryan APRN.LILA documented in this encounter [facility] 01-11-2022 History of Present illness Narrative Chief Complaint Patient presents with: Follow Up: Med refills needed HPI Ginger Hinson is a 41 year old female who presents here today for Above Complaints. Ginger is an established patient of [facility]. Ginger is a new patient to me today. [...] 30 Units subcutaneously daily at bedtime. Insulin [place], Disposable, (SURE-FINE PEN NEEDLES) 31 gauge x [...] loss - Discussed diabetic education issues of shelter diabetic complications, hypoglycemic symptoms, hyperglycemic symptoms, diet, medications- side effects and need for compliance, importance of exercise, use and side effects of insulin, importance of appointments with Pigment Processor, and importance of annual examinations with Opthalmology [...] agreeable to treatment plan. Madhuri Gibbs APRN.LILA [id number] [place] [address] documented in this encounter [facility] 10-15-2021 History of Present illness Narrative This note was created using [employer] Interactiver[employer]. Subjective Ginger Hinson is a 41 year old female. 41 year old female with PMH of HTN, DM, Fibromyalgia, and Lupus presents with complaints of abscess to scalp. Acute onset 4 days Locates pain left portion of head. States pain is 10/10. unable to sleep at night Denies trauma or injury Denies fever/chills, rash, SOB, or CP Utilized tylenol 1000mg POLICY SPECIALIST with no relief Pt states I get these all the time. My sugars have been running high The history is provided by the patient. No product test specialist was used. Abscess This is a new [...] 30 Units subcutaneously daily at bedtime. Insulin [place], Disposable, (SURE-FINE PEN NEEDLES) 31 gauge x [...] course of illness Sharda Sanchez TEACHING PROVIDER (Physician/PA/WEB CONTENT COORDINATOR) NOTE OF PERSONAL INVOLVEMENT IN CARE: I have personally seen and examined the patient and performed the medical decision-making components. I have reviewed the Advanced Practice Registered Nurse (WEB CONTENT COORDINATOR) Student's documentation and verified the findings in the note as written. Any additions or changes are noted in bold/italics. Signature: Tracy Meyer Date: 10/15/2021 Time: 3:30 PM documented in this encounter [facility] 10-15-2021 Instructions Tracy Meyer APRN.LILA - [...] after 3-4 days. documented in this encounter [facility] 10-01-2021 History of Present illness Narrative Patient left without being seen and notified no one. No valid phone number No mychart. Ron Ortega PA-C documented in this encounter [facility] 07-15-2021 Miscellaneous Notes Attempted to call, [...] Janis Velazco APRN.CNM documented in this encounter [facility] 07-13-2021 Instructions Tracy Aguillon APRN.CNM - [...] safe to do so in terms of termite control representative heart disease risk. HT and breast cancer [...] Women: Randomized Trial. BMJ Jan 2012. [place] [employer]. The 2012 hormone therapy position statement Accessed 09/21/12. [place] [employer]. [place] [employer] Medical Guidelines for [...] an alternate prescription. documented in this encounter [facility] 07-13-2021 History of Present illness Narrative Ginger Hinson is a 40 year old female who presents for problem visit for vaginal dryness. HPI: Vaginal dryness. Increased pain with intercourse. Started one month ago. Current partner x 6 months. Ok for STD testing. Feels dry and like sandpaper, after, during intercourse. Denies vaginal discharge but unsure if yeast infection, has DM and gets them frequent. Denies any pain with intercourse with deep penetration, feels more dryness. Missed annual exam due to having covid. 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 Insulin [place], Disposable, (SURE-FINE PEN NEEDLES) 31 gauge x [...] external genitalia normal, normal Bartholin's glands, urethra, [place]'s glands, no vulvar lesions, no cervical lesions, [...] Tracy Aguillon APRN.CNM documented in this encounter [facility] 01-12-2016 History of Past i llness Narrative Problem Noted Date Resolved Date Dyslipidemia 01/12/2016 10/01/2021 Pain in limb 05/13/2014 06/07/2016 Chest pain, atypical 06/04/2013 06/07/2016 documented as of this encounter (statuses as of 10/02/2021) [facility] History of Past illness Narrative* Problem Noted Date Resolved Date Dyslipidemia 01/12/2016 10/01/2021 Pain in limb 05/13/2014 06/07/2016 Chest pain, atypical 06/04/2013 06/07/2016 documented as of this encounter (statuses as of 10/15/2021) [facility] History of Past illness Narrative* Problem Noted Date Resolved Date Dyslipidemia 01/12/2016 10/01/2021 Pain in limb 05/13/2014 06/07/2016 Chest pain, atypical 06/04/2013 06/07/2016 documented as of this encounter (statuses as of 01/04/2022) [facility] History of Past illness Narrative* Problem Noted Date Resolved Date Dyslipidemia 01/12/2016 10/01/2021 Pain in limb 05/13/2014 06/07/2016 Chest pain, atypical 06/04/2013 06/07/2016 documented as of this encounter (statuses as of 01/11/2022) [facility] History of Past illness Narrative* Problem Noted Date Resolved Date Dyslipidemia 01/12/2016 10/01/2021 Pain in limb 05/13/2014 06/07/2016 Chest pain, atypical 06/04/2013 06/07/2016 documented as of this encounter (statuses as of 04/16/2022) [address]19-2016 History of Past illness Narrative* Problem Noted Date Resolved Date Dyslipidemia 01/12/2016 10/01/2021 Pain in limb 05/13/2014 06/07/2016 Chest pain, atypical 06/04/2013 06/07/2016 documented as of this encounter (statuses as of 04/26/2022) [address]19-2016 History of Past illness Narrative* Problem Noted Date Resolved Date Dyslipidemia 01/12/2016 10/01/2021 Pain in limb 05/13/2014 06/07/2016 Chest pain, atypical 06/04/2013 06/07/2016 documented as of this encounter (statuses as of 04/28/2022) [address]19-2016 History of Past illness Narrative* Problem Noted Date Resolved Date Dyslipidemia 01/12/2016 10/01/2021 Pain in limb 05/13/2014 06/07/2016 Chest pain, atypical 06/04/2013 06/07/2016 documented as of this encounter (statuses as of 04/29/2022) [address]19-2016 History of Past illness Narrative* Problem Noted Date Resolved Date Dyslipidemia 01/12/2016 10/01/2021 Pain in limb 05/13/2014 06/07/2016 Chest pain, atypical 06/04/2013 06/07/2016 documented as of this encounter (statuses as of 05/05/2022) [address]19-2016 History of Past illness Narrative* Problem Noted Date Resolved Date Dyslipidemia 01/12/2016 10/01/2021 Pain in limb 05/13/2014 06/07/2016 Chest pain, atypical 06/04/2013 06/07/2016 documented as of this encounter (statuses as of 05/31/2022) [address]19-2016 History of Past illness Narrative* Problem Noted Date Resolved Date Dyslipidemia 01/12/2016 10/01/2021 Pain in limb 05/13/2014 06/07/2016 Chest pain, atypical 06/04/2013 06/07/2016 documented as of this encounter (statuses as of 06/23/2022) [address]19-2016 History of Past illness Narrative* Problem Noted Date Resolved Date Dyslipidemia 01/12/2016 10/01/2021 Pain in limb 05/13/2014 06/07/2016 Chest pain, atypical 06/04/2013 06/07/2016 documented as of this encounter (statuses as of 06/29/2022) [address]19-2016 History of Past illness Narrative* Problem Noted Date Resolved Date Dyslipidemia 01/12/2016 10/01/2021 Pain in limb 05/13/2014 06/07/2016 Chest pain, atypical 06/04/2013 06/07/2016 documented as of this encounter (statuses as of 06/29/2022) [address]19-2016 History of Past illness Narrative* Problem Noted Date Resolved Date Dyslipidemia 01/12/2016 10/01/2021 Pain in limb 05/13/2014 06/07/2016 Chest pain, atypical 06/04/2013 06/07/2016 documented as of this encounter (statuses as of 06/30/2022) [address]19-2016 History of Past illness Narrative* Problem Noted Date Resolved Date Dyslipidemia 01/12/2016 10/01/2021 Pain in limb 05/13/2014 06/07/2016 Chest pain, atypical 06/04/2013 06/07/2016 documented as of this encounter (statuses as of 07/21/2022) [address]19-2016 History of Past illness Narrative* Problem Noted Date Resolved Date Dyslipidemia 01/12/2016 10/01/2021 Pain in limb 05/13/2014 06/07/2016 Chest pain, atypical 06/04/2013 06/07/2016 documented as of this encounter (statuses as of 09/22/2022) [address]19-2016 History of Past illness Narrative* Problem Noted Date Resolved Date Dyslipidemia 01/12/2016 10/01/2021 Pain in limb 05/13/2014 06/07/2016 Chest pain, atypical 06/04/2013 06/07/2016 documented as of this encounter (statuses as of 10/29/2022) [address]19-2016 History of Past illness Narrative* Problem Noted Date Diagnosed Date Resolved Date Dyslipidemia 01/12/2016 10/01/2021 Pain in limb 05/13/2014 06/07/2016 Chest pain, atypical 06/04/2013 017 documented as of this encounter (statuses as of 11/01/2022) [facility] of Past illness Narrative* Problem Noted Date Diagnosed Date Resolved Date Dyslipidemia 01/12/2016 10/01/2021 Pain in limb 05/13/2014 06/07/2016 Chest pain, atypical 06/04/2013 017 documented as of this encounter (statuses as of 11/17/2022) [facility] of Past illness Narrative* Problem Noted Date Diagnosed Date Resolved Date Dyslipidemia 01/12/2016 10/01/2021 Pain in limb 05/13/2014 06/07/2016 Chest pain, atypical 06/04/2013 017 documented as of this encounter (statuses as of 02/27/2023) [facility] of Past illness Narrative* Problem Noted Date Diagnosed Date Resolved Date Dyslipidemia 01/12/2016 10/01/2021 Pain in limb 05/13/2014 06/07/2016 Chest pain, atypical 06/04/2013 017 documented as of this encounter (statuses as of 06/14/2023) [facility] of Past illness Narrative* Problem Noted Date Diagnosed Date Resolved Date Dyslipidemia 01/12/2016 10/01/2021 Pain in limb 05/13/2014 06/07/2016 Chest pain, atypical 06/04/2013 017 documented as of this encounter (statuses as of 07/26/2023) [facility] History of Past illness Narrative* Problem Noted Date Resolved Date Pain in limb 05/13/2014 06/07/2016 Chest pain, atypical 06/04/2013 06/07/2016 documented as of this encounter (statuses as of 07/13/2021) [facility] History of Past illness Narrative* Problem Noted Date Resolved Date Pain in limb 05/13/2014 06/07/2016 Chest pain, atypical 06/04/2013 06/07/2016 documented as of this encounter (statuses as of 07/15/2021) [facility]ments Appointment Date:09/01/2023 10:30:00 AM Scheduled Provider:JOHN HARVEY Location:[facility] Appointment Type:CV OV [facility] Evaluation + Plan note Future Appointments Appointment Date:10/04/2023 10:30:00 AM Scheduled Provider:JOHN HARVEY Location[facility] Appointment Type:CV OV [facility] Evaluujpnj note* Diagnosis Vaginal burning- Primary Other specified symptom associated with female genital organs Screen for STD (sexually transmitted disease) Screening examination for venereal disease Vaginal atrophy Postmenopausal atrophic vaginitis IUD check up Surveillance of previously prescribed intrauterine contraceptive device [facility] noteNo assessment information availableWAdena [facility] Work Phone: evaluation note* Diagnosis Chest pain in adult- Primary [...] and radiculitis, unspecified [facility] [place] [facility]* Diagnosis Abscess, scalp- Primary Cellulitis and abscess of other specified site documented in this encounter [facility] note* Diagnosis Encounter for screening mammogram for breast cancer documented [facility] [place] [facility]* Diagnosis Type 2 diabetes mellitus with hyperglycemia, with long-term current use of insulin (HCC)- Primary Mixed hyperlipidemia Recurrent UTI (urinary tract infection) Urinary tract infection, site not specified Middle ear effusion, left [facility] [place] [facility]* Diagnosis Onset Date Resolution Status Influenza A acute Pneumonia and influenza acut e [facility] Work Phone: Evaluation note* Diagnosis Onset Date Resolution Status Acute respiratory failure with hypoxemia acute [id number] acute Leukocytosis acute Pneumonia and influenza acut e Shortness of breath acute [facility] Work Phone: Evaluation note* Diagnosis Tongue plaque- Primary Leukoplakia of oral mucosa, including tongue [facility] Diagnosis Pneumonia of right lower lobe due to methicillin resistant Staphylococcus aureus (MRSA) (HCC)- Primary Hospital discharge follow-up Other follow-up examination Influenza A Influenza with other respiratory manifestations Type 2 diabetes mellitus with hyperglycemia, with long-term current use of insulin (HCC) Adenopathy, hilar right Enlargement of lymph nodes Essential hypertension Unspecified essential hypertension Tobacco abuse Tobacco use disorder documented [facility] [place] [facility]* Diagnosis Onset Date Resolution Status [id number] acute Leukocytosis acute Acute respiratory failure with hypoxemia resolved Pneumonia and influenza reso lved Shortness of breath resolved [facility] Work Phone: Evaluation note* Diagnosis Encounter for screening mammogram for breast cancer documented in this encounter [facility] note* Diagnosis Onset Date Resolution Status [id number] acute Leukocytosis acute Acute respiratory failure with hypoxemia resolved Pneumonia and influenza reso lved Shortness of breath resolved Nicotine dependence, cigarettes, uncomplicated acute Obesity acute JUNE (obstructive sleep apnea) acute SOB (shortness of breath) 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 [facility] Work Phone: Evaluation note* Diagnosis Pneumonia of right lower lobe due to methicillin resistant Staphylococcus aureus (MRSA) (HCC)- Primary Lupus (HCC) Systemic lupus erythematosus Type 2 diabetes mellitus with hyperglycemia, with long-term current use of insulin ([facility]) Fatigue, unspecified type documented in this encounter [facility] note* Diagnosis Type 2 diabetes mellitus with hyperglycemia, with long-term current use of insulin (HCC)- Primary documented in this encounter [facility] note* Diagnosis Onset Date Resolution Status COPD (chronic obstructive pulmonary disease) chronic Nicotine dependence, cigarettes, uncomplicated chronic Obesity chronic JUNE (obstructive sleep apnea) chronic [facility] Work Phone: Evaluation note* Diagnosis Encounter for screening mammogram for breast cancer documented in this encounter [facility] note* Diagnosis Onset Date Resolution Status COPD (chronic obstructive pulmonary disease) [facility] Work Phone: Evaluation note* Diagnosis Bilateral calf pain- Primary Pain in limb Type 2 diabetes mellitus with hyperglycemia, with long-term current use of insulin ([facility]) Psoriasis Other psoriasis Hypertension, unspecified type Mixed hyperlipidemia Fibromyalgia Mylagia and myositis, unspecified Essential hypertension Unspecified essential hypertension Screening for diabetic retinopathy Screening for other eye conditions Encounter for immunization Need for other specified prophylactic vaccination against single bacterial disease Acute non-recurrent maxillary sinusitis Vaginal yeast infection Candidiasis of vulva and vagina [facility] Fibromyalgia Mylagia and myositis, unspecified [facility] Diagnosis Encounter for gynecological examination (general) (routine) with abnormal findings- Primary Screening for cervical cancer Screening for malignant neoplasm of the cervix Encounter for screening for human papillomavirus (HPV) Special screening examination for human papillomavirus (HPV) Encounter for screening mammogram for breast cancer Dense breast tissue IUD (intrauterine device) in place Presence of intrauterine contraceptive device WES (stress urinary incontinence, female) Female stress incontinence Screening for STDs (sexually transmitted diseases) Screening examination for venereal disease [facility] Diagnosis Encounter for IUD insertion- Primary Encounter for insertion of intrauterine contraceptive device Encounter for IUD removal Encounter for removal of intrauterine contraceptive device [facility]* Diagnosis URI, acute- Primary Acute upper respiratory infections of unspecified site Close exposure to COVID-19 virus [facility] COVID- Primary [facility]* Diagnosis Type 2 diabetes mellitus with hyperglycemia, with long-term current use of insulin ([facility]) Screening for lipid disorders- Primary Fibromyalgia Mylagia and myositis, unspecified Type 2 diabetes mellitus with hyperglycemia, with long-term current use of insulin ([facility]) Screening for thyroid disorder [facility]* Diagnosis Type 2 diabetes mellitus with hyperglycemia, with long-term current use of insulin ([facility]) Hyperthyroidism- Primary Thyrotoxicosis without mention of goiter or other cause, without mention of thyrotoxic crisis or storm [facility]* Diagnosis Type 2 diabetes mellitus with hyperglycemia, with long-term current use of insulin (HCC) Fibromyalgia Mylagia and myositis, unspecified Type 2 diabetes mellitus with hyperglycemia, with long-term current use of insulin (HCC) [facility]* Diagnosis Type 2 diabetes mellitus with hyperglycemia, with long-term current use of insulin (HCC) Fibromyalgia Mylagia and myositis, unspecified [facility]* Diagnosis Type 2 diabetes mellitus with hyperglycemia, with long-term current use of insulin (HCC) Acute pain of right shoulder [facility]* Diagnosis Type 2 diabetes mellitus with hyperglycemia, with long-term current use of insulin (HCC) Polyneuropathy- Primary Unspecified hereditary and idiopathic peripheral neuropathy [facility]* Diagnosis Type 2 diabetes mellitus with hyperglycemia, with long-term current use of insulin ([facility]) Pneumonia of right lower lobe due to methicillin resistant Staphylococcus aureus (MRSA) ([facility]) [facility]* Diagnosis Type 2 diabetes mellitus with hyperglycemia, with long-term current use of insulin ([facility]) Paresthesia of bilateral legs- Primary Disturbance of skin sensation Pain in both lower extremities [facility]* Diagnosis Type 2 diabetes mellitus with hyperglycemia, with long-term current use of insulin ([facility]) Paresthesia of bilateral legs Disturbance of skin sensation [facility]* Diagnosis Type 2 diabetes mellitus with hyperglycemia, with long-term current use of insulin ([facility]) Ingrown toenail- Primary Ingrowing nail Type 2 diabetes mellitus with hyperglycemia, with long-term current use of insulin ([facility]) Dysuria [facility]* Diagnosis Type 2 diabetes mellitus with hyperglycemia, with long-term current use of insulin ([facility]) Degeneration of intervertebral disc of lumbar region with discogenic back pain and lower extremity pain- Primary Paresthesia of bilateral legs Disturbance of skin sensation Pain in both lower extremities Chronic thoracic spine pain Pain in thoracic spine Postural kyphosis of thoracic region Kyphosis (acquired) (postural) [facility] [place] [facility]* Diagnosis Type 2 diabetes mellitus with hyperglycemia, with long-term current use of insulin (HCC) Degeneration of intervertebral disc of lumbar region with discogenic back pain and lower extremity pain- Primary Chronic thoracic spine pain Pain in thoracic spine Postural kyphosis of thoracic region Kyphosis (acquired) (postural) [facility]* Diagnosis Type 2 diabetes mellitus with hyperglycemia, with long-term current use of insulin (HCC) Type 2 diabetes mellitus with hyperglycemia, with long-term current use of insulin ([facility]) [facility] Diagnosis Type 2 diabetes mellitus with hyperglycemia, with long-term current use of insulin ([facility]) Exposure to sexually transmitted disease (STD)- Primary Contact with or exposure to other communicable diseases documented in this encounter [facility] note* Diagnosis Type 2 diabetes mellitus with hyperglycemia, with long-term current use of insulin (HCC) Bacterial pneumonia- Primary Bacterial pneumonia, unspecified Type 2 diabetes mellitus without complication, without long-term current use of insulin (HCC) Current moderate episode of major depressive disorder, unspecified whether recurrent (HCC) documented in this encounter [facility] note* Diagnosis Type 2 diabetes mellitus with hyperglycemia, with long-term current use of insulin (HCC) Neuropathic pain- Primary Neuralgia, neuritis, and radiculitis, unspecified Type 2 diabetes mellitus with hyperglycemia, with long-term current use of insulin (HCC) Fibromyalgia Mylagia and myositis, unspecified Essential hypertension Unspecified essential hypertension Mixed hyperlipidemia Degeneration of intervertebral disc of lumbar region with discogenic back pain and lower extremity pain Chronic obstructive pulmonary disease with acute lower respiratory infection (HCC) Obstructive chronic bronchitis with exacerbation Current moderate episode of major depressive disorder without prior episode (HCC) Discogenic thoracic pain Pain in thoracic spine Vitamin D deficiency Unspecified vitamin D deficiency documented in this encounter [facility] note* Diagnosis Type 2 diabetes mellitus with hyperglycemia, with long-term current use of insulin (HCC) Poorly controlled type 2 diabetes mellitus (HCC)- Primary Type II or unspecified type diabetes mellitus without mention of complication, not stated as uncontrolled documented in this encounter [facility] note* Diagnosis Type 2 diabetes mellitus with hyperglycemia, with long-term current use of insulin (HCC) Poorly controlled type 2 diabetes mellitus (HCC)- Primary Type II or unspecified type diabetes mellitus without mention of complication, not stated as uncontrolled documented in this encounter [facility] note* Diagnosis Type 2 diabetes mellitus with hyperglycemia, with long-term current use of insulin (HCC) Type 2 diabetes mellitus with hyperglycemia, with long-term current use of insulin (HCC)- Primary Encounter for immunization Need for other specified prophylactic vaccination against single bacterial disease Essential hypertension Unspecified essential hypertension Chronic obstructive pulmonary disease with acute lower respiratory infection (HCC) Obstructive chronic bronchitis with exacerbation Mixed hyperlipidemia Current moderate episode of major depressive disorder without prior episode (HCC) Fibromyalgia Mylagia and myositis, unspecified Neuropathic pain Neuralgia, neuritis, and radiculitis, unspecified documented in this encounter [facility] note* Diagnosis Type 2 diabetes mellitus with hyperglycemia, with long-term current use of insulin (HCC) Type 2 diabetes mellitus with hyperglycemia, with long-term current use of insulin (HCC)- Primary [facility] [place] [facility] Diagnosis Type 2 diabetes mellitus with hyperglycemia, with long-term current use of insulin (HCC) Boil of buttock- Primary Carbuncle and furuncle of buttock Pneumonia of right lung due to infectious organism, unspecified part of lung Depression, major, single episode, moderate (HCC) Major depressive disorder, single episode, moderate Neuropathic pain Neuralgia, neuritis, and radiculitis, unspecified Fibromyalgia Mylagia and myositis, unspecified Type 2 diabetes mellitus with hyperglycemia, with long-term current use of insulin ([facility]) documented [facility] this encounter [facility] [place] [facility]* Diagnosis Chest pain, unspecified Shortness of breath Obstructive sleep apnea (adult) (pediatric) Essential (primary) hypertension Unspecified essential hypertension Tachycardia, unspecified documented in this encounter [facility] Work Phone: Hospital course Narrative No data available for this section [facility] Work Phone: Hospital Discharge instructions Additional Instructions Rest, ice, elevate your leg. You can gradually put weight back on it as the pain lessens. Take Tylenol ibuprofen every 6 hours as needed.[facility] Work Phone: Hospital Discharge instructions Additional Instructions You have influenza A which is a viral infection and will last on average 7 days and can go as long as 10 days. Take medication as directed to help control symptoms and return to the ER should you have any further [facility] Work Phone: Hospital Discharge instructions Additional Instructions Patient left prior to discharge her labs being completed.[facility] Work Phone: Hospital Discharge instructions No data available for this section [facility] Progress note No data available for this section [facility] Reason for referral (narrative)* Outpatient Procedure (Routine) - Pending Review Specialty Diagnoses / Procedures Referred By Contac t Referred To Contact [facility] Diagnoses IUD check up Procedures REMOVE INTRAUTERINE DEVICE REMOVE INTRAUTERINE DEVICE Tracy Aguillon APRN.CNM [address] [place] [address] [facility] [address] [place] [address] Referral ID Status Reason Start Date Expiration Date Visits Requested Visits Authorized [id number] Pending Review Auto-Generat ed Referral 07/13/2021 07/13/2022 1 1 T [facility] for referral (narrative)* Diagnostic Procedure Only (Routine) - Pending Review Specialty Diagnoses / Procedures Referred By Contac t Referred To Contact [facility] Diagnoses Encounter for screening mammogram for breast cancer Procedures MENDEL SCREENING SCREENING MAMMOGRAPHY BI 2-VIEW BREAST INC Sonia Alberto PA-C [address] [place] [address] [facility] [address] [place] [address] Referral ID Status Reason Start Date Expiration Date Visits Requested Visits Authorized [id number] Pending Review Auto-Generat ed Referral 12/30/2021 01/29/2023 1 1 T [facility] for referral (narrative)* Diagnostic Procedure Only (Routine) - Pending Review Specialty Diagnoses / Procedures Referred By Contac t Referred To Contact [facility] Diagnoses Encounter for screening mammogram for breast cancer Procedures MENDEL SCREENING SCREENING MAMMOGRAPHY BI 2-VIEW BREAST INC Sonia Alberto PA-C [address] [place] [address] [facility] [address] [place] [address] Referral ID Status Reason Start Date Expiration Date Visits Requested Visits Authorized [id number] Pending Review Auto-Generat ed Referral 05/26/2022 06/25/2023 1 1 [facility] for referral (narrative)* Diagnostic Procedure Only (Routine) - Closed Specialty Diagnoses / Procedures Referred By Leanne t Referred To Contact [facility] Diagnoses Encounter for screening mammogram for breast cancer Procedures MENDEL SCREENING SCREENING MAMMOGRAPHY BI 2-VIEW BREAST INC Sonia Alberto PA-C [address] [place] [address] [facility] [address] [place] [address] Referral ID Status Reason Start Date Expiration Date V isits Requested Visits Authorized [id number] Closed Auto-Generate d Referral 05/26/2022 06/25/2023 1 1 [facility] for referral (narrative)* Outpatient Procedure (Urgent) - Authorized Specialty Diagnoses / Procedures Referred By Leanne t Referred To [facility] Diagnoses Bilateral calf pain Procedures US LEG VEIN DVT ROBBI VAS LAB DUP-SCAN XTR VEINS COMPLETE BILATERAL STUDY Lazara Melendez APRN.CNS [address] [place] [address] [facility] [place] [address] [place] [address] Referral ID Status Reason Start Date Expiration Date Visits Requested Visits Authorized [id number] Authorized Auto-Generat ed Referral 08/30/2023 08/29/2024 1 1 * Consult, Test, Treat (Routine) - Authorized Specialty Diagnoses / Procedures Referred By Leanne t Referred To Contact Ophthalmology Diagnoses Screening for diabetic retinopathy Procedures CONSULT TO OPHTHALMOLOGY OFFICE/OUTPATIENT [facility] MDM 60 MINUTES Lazara Melendez APRN.CNS [address] [place] [address] Referral ID Status Reason Start Date Expiration Date Visits Requested Visits Authorized [id number] Authorized PCP Requested Referral 08/30/2023 08/29/2024 1 1 [facility] for referral (narrative)* Outpatient Procedure (Routine) - Pending Review Specialty Diagnoses / Procedures Referred By Leanne barry Referred To Contact [facility] Diagnoses IUD (intrauterine device) in place Procedures INSERT INTRAUTERINE DEVICE LEVONORGESTREL IU 52MG 5 YR INSERT INTRAUTERINE DEVICE Tracy Aguillon APRN.CNM [address] [place] [address] [place] [phone] Referral ID Status Reason Start Date Expiration Date Visits Requested Visits Authorized [id number] Pending Review Auto-Generat ed Referral 09/14/2023 09/13/2024 1 1 * Outpatient Procedure (Routine) - Authorized Specialty Diagnoses / Procedures Referred By Leanne barry Referred To Contact [facility] Diagnoses IUD (intrauterine device) in place Encounter for insertion of intrauterine contraceptive device Encounter for removal of intrauterine contraceptive device Procedures REMOVE INTRAUTERINE DEVICE REMOVE INTRAUTERINE DEVICE INSERT INTRAUTERINE DEVICE LEVONORGESTREL IU 52MG 5 YR Tracy Aguillon APRN.CNM [address] [place] [address] [place] [phone] Referral ID Status Reason Start Date Expiration Date Visits Requested Visits Authorized [id number] Authorized Auto-Generat ed Referral 09/14/2023 04/24/2024 2 2 * Diagnostic Procedure Only (Routine) - Authorized Specialty Diagnoses / Procedures Referred By Leanne barry Referred To Contact [facility] Diagnoses Encounter for gynecological examination (general) (routine) with abnormal findings Encounter for screening mammogram for breast cancer Dense breast tissue Procedures MENDEL SCREENING W ILAN SCREENING DIGITAL BREAST TOMOSYNTHESIS BI SCREENING MAMMOGRAPHY BI 2-VIEW BREAST INC CAD Tracy Aguillon APRN.CNM [address] [place] [address] [facility] [address] [place] [address] Referral ID Status Reason Start Date Expiration Date Visits Requested Visits Authorized [id number] Authorized Auto-Generat ed Referral 09/14/2023 10/13/2024 1 1 [facility] for referral (narrative)* Outpatient Procedure (Routine) - Pending Review Specialty Diagnoses / Procedures Referred By Leanne t Referred To Contact [facility] Diagnoses Encounter for IUD removal Procedures REMOVE INTRAUTERINE DEVICE REMOVE INTRAUTERINE DEVICE Tracy Aguillon APRN.CNM [address] [place] [address] [address] Referral ID Status Reason Start Date Expiration Date Visits Requested Visits Authorized [id number] Pending Review Auto-Generat ed Referral 09/27/2023 09/26/2024 1 1 * Outpatient Procedure (Routine) - Pending Review Specialty Diagnoses / Procedures Referred By Leanne t Referred To Contact [facility] Diagnoses Encounter for IUD insertion Procedures INSERT INTRAUTERINE DEVICE INSERT INTRAUTERINE DEVICE Tracy Aguillon APRN.CNM [address] [place] [address] [address] Referral ID Status Reason Start Date Expiration Date Visits Requested Visits Authorized [id number] Pending Review Auto-Generat ed Referral 09/27/2023 09/26/2024 1 1 [facility] for referral (narrative)* Diagnostic Procedure Only (Routine) - Closed Specialty Diagnoses / Procedures Referred By Contac t Referred To Contact [facility] IMAG[facility] Diagnoses Acute pain of right shoulder Procedures XR SHOULDER GENERAL 3V OR MORE AP/TRUE AP/OTHER RIGHT RADEX SHOULDER COMPLETE MINIMUM 2 VIEWS Sonia Ortega PA-C [address] [place] [address] [place] [address] Referral ID Status Reason Start Date Expiration Date V isits Requested Visits Authorized [id number] Closed Auto-Generate d Referral 02/24/2023 03/25/2024 1 1 [facility] for referral (narrative)* Diagnostic Procedure Only (Routine) - Closed Specialty Diagnoses / Procedures Referred By Contac t Referred To Contact [facility] IMAGING Diagnoses Paresthesia of bilateral legs Procedures XR LUMBAR GENERAL 3V AP/LAT/L5-S1 RADEX SPINE LUMBOSACRAL 2/3 VIEWS Daphne Gresham APRN.CNP [address] [place] [address] [place] [address] Referral ID Status Reason Start Date Expiration Date V isits Requested Visits Authorized [id number] Closed Auto-Generate d Referral 01/31/2024 03/01/2025 1 1 [facility] for visit Narrative* Diagnostic Procedure Only (Routine) - Closed Specialty Diagnoses / Procedures Referred By Contac t Referred To Contact [facility] Diagnoses Encounter for screening mammogram for breast cancer Procedures MENDEL SCREENING SCREENING MAMMOGRAPHY BI 2-VIEW BREAST INC CAD Sonia Ortega PA-C [address] [place] [address] [facility] [address] [place] [address] Referral ID Status Reason Start Date Expiration Date V isits Requested Visits Authorized [id number] Closed Auto-Generate d Referral 05/26/2022 06/25/2023 1 1 [facility] for visit Narrative* Diagnostic Procedure Only (Routine) - Closed Specialty Diagnoses / Procedures Referred By Contac t Referred To Contact X[facility] IMAGING Diagnoses Acute pain of right shoulder Procedures XR SHOULDER GENERAL 3V OR MORE AP/TRUE AP/OTHER RIGHT RADEX SHOULDER COMPLETE MINIMUM 2 VIEWS Sonia Ortega PA-C [address] [place] [address] [place] [id number] Referral ID Status Reason Start Date Expiration Date V isits Requested Visits Authorized [id number] Closed Auto-Generate d Referral 02/24/2023 03/25/2024 1 1 [facility] for visit Narrative* Diagnostic Procedure Only (Routine) - Closed Specialty Diagnoses / Procedures Referred By Contac t Referred To Contact [facility] IMAG[facility] Diagnoses Paresthesia of bilateral legs Procedures XR LUMBAR GENERAL 3V AP/LAT/L5-S1 RADEX SPINE LUMBOSACRAL 2/3 VIEWS Daphne Gresham, WEB CONTENT COORDINATOR.MAINTENANCE WELDER [address] [place] [address] [place] [id number] Referral ID Status Reason Start Date Expiration Date V isits Requested Visits Authorized [id number] Closed Auto-Generate d Referral 01/31/2024 03/01/2025 1 1 [facility] for visit Narrative* Imaging (Routine) - Pending Review Specialty Diagnoses / Procedures Referred By Contac t Referred To Contact Radiology Diagnoses Chest pain, unspecified Shortness of breath Obstructive sleep apnea (adult) (pediatric) Essential (primary) hypertension Tachycardia, unspecified Procedures CT cardiac scoring wo IV contrast John Harvey WEB CONTENT COORDINATOR-MAINTENANCE WELDER [address] [place] [address] Phone: tel: fax: Referral ID Status Reason Start Date Expiration Date Visits Requested Visits Authorized [id number] Pending Review Perform Procedure 10/29/2024 10/29/2025 1 1 [facility] Work Phone: Summary Purpose Family History No Family History Records Found Relationship Condition Age at Onset Recorded Date/T padmini mother Diabetes mellitus Unknown Hypertension Unknown father Diabetes mellitus Unknown Advance Directives No Advanced Directives Records FoundDocuments on File Type Date Recorded 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 Advance Directive(s) 05/01/2019 9:53 AM Advance Directive(s) 04/30/2019 8:07 PM Advance Directive(s) 02/27/2019 8:50 AM Advance Directive(s) 02/19/2019 8:45 AM Advance Directive(s) 05/03/2017 7:39 AM Advance Directive(s) 04/26/2017 3:39 PM Documents on File Type Date Recorded 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 Advance Directive(s) 05/01/2019 9:53 AM Advance Directive(s) 04/30/2019 8:07 PM Advance Directive(s) 02/27/2019 8:50 AM Advance Directive(s) 02/19/2019 8:45 AM Advance Directive(s) 05/03/2017 7:39 AM Advance Directive(s) 04/26/2017 3:39 PM Advance Directive Response Recorded Date/ Time Advance Directives No April 29, 2017 7:07pm Living Will No August 25, 2021 4: 25pm Power of Jewel Hole Driller No August 25, 2021 4:25pm Advance Directive Response Recorded Date/ Time Advance Directives No April 29, 2017 7:07pm Living Will No October 14, 2021 7:43pm Power of Jewel Hole Driller No October 14 7:43pm Advance Directive Response Recorded Date/ Time Advance Directives No April 29, 2017 7:07pm Living Will No November 28, 2021 5:51pm Power of Jewel Hole Driller No November 28 5:51pm Advance Directive Response Recorded Date/ Time Advance Directives No April 29, 2017 6:07pm Living Will No April 01 10:52pm Power of Jewel Hole Driller No April 01, 2022 10:52pm Advance Directive Response Recorded Date/ Time Advance Directives No April 29, 2017 6:07pm Living Will No April 07, 2 022 1:27pm Power of Jewel Hole Driller No April 07, 2022 1:27pm Advance Directive Response Recorded Date/ Time Advance Directives No April 29, 2017 6:07pm Living Will No April 07, 2 022 1:50pm Power of Jewel Hole Driller No April 07, 2022 1:50pm Advance Directive Response Recorded Date/ Time Advance Directives No April 29, 2017 6:07pm Living Will No April 29 10:30am Power of Jewel Hole Driller No April 29, 2 023 10:30am Advance Directive Response Recorded Date/ Time Advance Directives No April 29, 2017 7:07pm Living Will No January 08, 2023 9:31am Power of Jewel Hole Driller No December 9:31am Advance Directive Response Recorded Date/ Time Advance Directives No April 29, 2017 7:07pm Living Will No January 22, 2023 8:31pm Power of Jewel Hole Driller No December 8:31pm Advance Directive Response Recorded Date/ Time Advance Directives No April 29, 2017 6:07pm Living Will No April 30 5:39pm Power of Jewel Hole Driller No April 30 5:39pm Advance Directive Response Recorded Date/ Time Advance Directives No April 29, 2017 6:07pm Living Will No May 27 9:10am Power of Jewel Hole Driller No May 27, 2023 9:10am Advance Directive Response Recorded Date/ Time Advance Directives No April 29, 2017 6:07pm Living Will No June 16 10:36pm Power of Jewel Hole Driller No June 16, 2023 10:36pm Chief Complaint and Reason for Visit Chief Complaint ABSCESS BEHIND RIGHT EAR chest pain lower ext Chief Complaint chest pain lower ext ABSCESS Chief Complaint lower ext ABSCESS RIGHT FOOT PAIN R/T INJURY Chief Complaint COUGH Chief Complaint COUGH POST INFLUENZA PNEUMONIA Reason for Visit Influenza A Pneumonia and influenza Chief Complaint COUGH POST INFLUENZA PNEUMONIA POST INFLUENZA PNEUMONIA POST INFLUENZA PNEUMONIA POST INFLUENZA PNEUMONIA POST INFLUENZA PNEUMONIA POST INFLUENZA PNEUMONIA POST INFLUENZA PNEUMONIA POST INFLUENZA PNEUMONIA Reason for Visit Acute respiratory fa ilure with hypoxemia [id number] Leukocytosis Pneumonia and influenza Shortness of breath Chief Complaint COUGH POST INFLUENZA PNEUMONIA POST INFLUENZA PNEUMONIA POST INFLUENZA PNEUMONIA POST INFLUENZA PNEUMONIA POST INFLUENZA PNEUMONIA POST INFLUENZA PNEUMONIA POST INFLUENZA PNEUMONIA POST INFLUENZA PNEUMONIA POST INFLUENZA P[facility]UMONIA [facility] Reason for Visit [id number] Leukocytosis Acute respiratory failure with hypoxemia Pneumonia and influenza Shortness of breath Chief Complaint COUGH POST INFLUENZA PNEUMONIA POST INFLUENZA PNEUMONIA POST INFLUENZA PNEUMONIA POST INFLUENZA PNEUMONIA POST INFLUENZA PNEUMONIA POST INFLUENZA PNEUMONIA POST INFLUENZA PNEUMONIA POST INFLUENZA PNEUMONIA POST INFLUENZA PNEUMONIA [facility] FU NICOTINE DEENDENCE, SHORTNESS OF BREATH NICOTINE DEENDENCE, SHORTNESS OF BREATH Reason for Visit [id number] Leukocytosis Acute respiratory failure with hypoxemia Pneumonia and influenza Shortness of breath Nicotine dependence, cigarettes, uncomplicated Obesity JUNE (obstructive sleep apnea) SOB (shortness of breath) Chief Complaint 3 M FU Headache BACK Reason for Visit COPD (chronic obstru ctive pulmonary disease) Nicotine dependence, cigarettes, uncomplicated Obesity JUNE (obstructive sleep apnea) Chief Complaint 3 M FU Headache BACK SORE THROAT Reason for Visit COPD (chronic obstru ctive pulmonary disease) Nicotine dependence, cigarettes, uncomplicated Obesity JUNE (obstructive sleep apnea) Chief Complaint BACK SORE THROAT cold s/s Chief Complaint SORE THROAT cold s/s Cough Reason for Visit COPD (chronic obstru ctive pulmonary disease) Chief Complaint cold s/s Cough cough, sore throat Reason for Visit COPD (chronic obstru ctive pulmonary disease) Chief Complaint cold s/s Cough cough, sore throat CHEST PAIN Reason for Visit COPD (chronic obstru ctive pulmonary disease) Reason for Referral Specialty Diagnoses / Procedures Referred By Contac t Referred To Contact Diagnoses Type 2 diabetes mellitus with hyperglycemia, with long-term current use of insulin (HCC) Madhuri Gibbs, WEB CONTENT COORDINATOR.MAINTENANCE WELDER [address] [place] [address] Referral ID Status Reason Start Date Expiration Date Visits Re quested Visits Authorized [id number] Closed 1 1 Specialty Diagnoses / Procedures Referred By Contac t Referred To Contact Diagnoses Fibromyalgia Lazara Melendez WEB CONTENT COORDINATOR.MAINTENANCE WELDER [address] [place] [address] Referral ID Status Reason Start Date Expiration Date V isits Requested Visits Authorized [id number] Pending Review 12/23/2023 02/21/2024 1 1 Specialty Diagnoses / Procedures Referred By Contac t Referred To Contact Pain Management Diagnoses Polyneuropathy Procedures CONSULT TO PAIN MGT OFFICE/OUTPATIENT NEW HIGH MDM 60 MINUTES Lazara Melendez WEB CONTENT COORDINATOR.MAINTENANCE WELDER [address] [place] [address] Referral ID Status Reason Start Date Expiration Date Visits Requested Visits Authorized [id number] Authorized PCP Requested Referral 01/12/2024 01/11/2025 1 1 Specialty Diagnoses / Procedures Referred By Contac t Referred To Contact Pain Management Diagnoses Paresthesia of bilateral legs Pain in both lower extremities Procedures CONSULT TO PAIN MGT OFFICE/OUTPATIENT NEW HIGH MDM 60 MINUTES Daphne Gresham, WEB CONTENT COORDINATOR.MAINTENANCE WELDER [address] [place] [address] Referral ID Status Reason Start Date Expiration Date Visits Requested Visits Authorized [id number] Authorized PCP Requested Referral 01/31/2024 04/30/2024 1 1 Specialty Diagnoses / Procedures Referred By Contac t Referred To Contact XR IMAGING Diagnoses Paresthesia of bilateral legs Procedures XR LUMBAR GENERAL 3V AP/LAT/L5-S1 RADEX SPINE LUMBOSACRAL 2/3 VIEWS Daphne Gresham, WEB CONTENT COORDINATOR.MAINTENANCE WELDER [address] [place] [address] [place] [id number] Referral ID Status Reason Start Date Expiration Date Visits Requested Visits Authorized [id number] New Request Auto-Generat ed Referral 01/31/2024 03/01/2025 1 1 Specialty Diagnoses / Procedures Referred By Contac t Referred To Contact Podiatry Diagnoses Ingrown toenail Procedures CONSULT TO PODIATRY OFFICE/OUTPATIENT NEW HIGH MDM 60 MINUTES Lazraa Melendez WEB CONTENT COORDINATOR.MAINTENANCE WELDER [address] [place] [address] Referral ID Status Reason Start Date Expiration Date Visits Requested Visits Authorized [id number] Authorized PCP Requested Referral 02/28/2024 02/26/2025 1 1 Specialty Diagnoses / Procedures Referred By Contac t Referred To Contact [facility] Diagnoses Degeneration of intervertebral disc of lumbar region with discogenic back pain and lower extremity pain Chronic thoracic spine pain Postural kyphosis of thoracic region Procedures CONSULT TO PHYSICAL THERAPY PHYSICAL THERAPY EVALUATION HIGH COMPLEX 45 MINS Humberto Damon MD [address] [facility] [place] [address] [facility] [place] [address] [place] [address] Referral ID Status Reason Start Date Expiration Date Visits Requested Visits Authorized [id number] Authorized Auto-Generat ed Referral 04/25/2023 04/24/2024 99 99 Specialty Diagnoses / Procedures Referred By Contac t Referred To Contact [facility] Diagnoses Degeneration of intervertebral disc of lumbar region with discogenic back pain and lower extremity pain Chronic thoracic spine pain Postural kyphosis of thoracic region Procedures PT REHAB FOLLOW UP ORDER THERAPEUTIC EXERCISES RE, EA 15 MIN. Tracy Celaya, PT [facility] [place] [address] [place] [address] Referral ID Status Reason Start Date Expiration Date Visits Requested Visits Authorized [id number] New Request PCP Requested Referral Auto-Generate d Referral 4 06/18/2024 1 1 Additional Source Comments INFORMATION SOURCE (unrecogn ized section and content) DATE CREATED AUTHOR 05/02/2019 [facility] DATE CREATED AUTHOR AUTHOR'S ORGANIZ ATION 05/04/2019 [facility] DATE CREATED AUTHOR AUTHOR'S ORGANIZ ATION 09/03/2023 [facility] (PR) DATE CREATED AUTHOR AUTHOR'S ORGANIZ ATION 12/07/2024 [facility] DATE CREATED AUTHOR AUTHOR'S ORGANIZ ATION 02/21/2025 [facility] DATE CREATED AUTHOR AUTHOR'S ORGANIZ ATION 02/27/2025 [facility] Source Comments (unrecognize d section and content) In the event this informatio n is protected by the Federal Confidentiality of Alcohol and Drug Abuse Patient Records regulations: The Federal rules restrict any use of the information to criminally investigate or prosecute any alcohol or drug abuse patient.[facility] HospitalIn the event this information is protected by the Federal Confidentiality of Alcohol and Drug Abuse Patient Records regulations: The Federal rules restrict any use of the information to criminally investigate or prosecute any alcohol or drug abuse patient.[facility] HospitalIn the event this information is protected by the Federal Confidentiality of Alcohol and Drug Abuse Patient Records regulations: The Federal rules restrict any use of the information to criminally investigate or prosecute any alcohol or drug abuse patient.[facility] HospitalIn the event this information is protected by the Federal Confidentiality of Alcohol and Drug Abuse Patient Records regulations: The Federal rules restrict any use of the information to criminally investigate or prosecute any alcohol or drug abuse patient.[facility] HospitalIn the event this information is protected by the Federal Confidentiality of Alcohol and Drug Abuse Patient Records regulations: The Federal rules restrict any use of the information to criminally investigate or prosecute any alcohol or drug abuse patient.[facility] HospitalIn the event this information is protected by the Federal Confidentiality of Alcohol and Drug Abuse Patient Records regulations: The Federal rules restrict any use of the information to criminally investigate or prosecute any alcohol or drug abuse patient.[facility] HospitalIn the event this information is protected by the Federal Confidentiality of Alcohol and Drug Abuse Patient Records regulations: The Federal rules restrict any use of the information to criminally investigate or prosecute any alcohol or drug abuse patient.[facility] HospitalIn the event this information is protected by the Federal Confidentiality of Alcohol and Drug Abuse Patient Records regulations: The Federal rules restrict any use of the information to criminally investigate or prosecute any alcohol or drug abuse patient.[facility] HospitalIn the event this information is protected by the Federal Confidentiality of Alcohol and Drug Abuse Patient Records regulations: The Federal rules restrict any use of the information to criminally investigate or prosecute any alcohol or drug abuse patient.[facility] HospitalIn the event this information is protected by the Federal Confidentiality of Alcohol and Drug Abuse Patient Records regulations: The Federal rules restrict any use of the information to criminally investigate or prosecute any alcohol or drug abuse patient.[facility] HospitalIn the event this information is protected by the Federal Confidentiality of Alcohol and Drug Abuse Patient Records regulations: The Federal rules restrict any use of the information to criminally investigate or prosecute any alcohol or drug abuse patient.[facility] HospitalIn the event this information is protected by the Federal Confidentiality of Alcohol and Drug Abuse Patient Records regulations: The Federal rules restrict any use of the information to criminally investigate or prosecute any alcohol or drug abuse patient.[facility] HospitalIn the event this information is protected by the Federal Confidentiality of Alcohol and Drug Abuse Patient Records regulations: The Federal rules restrict any use of the information to criminally investigate or prosecute any alcohol or drug abuse patient.[facility] HospitalIn the event this information is protected by the Federal Confidentiality of Alcohol and Drug Abuse Patient Records regulations: The Federal rules restrict any use of the information to criminally investigate or prosecute any alcohol or drug abuse patient.[facility] HospitalIn the event this information is protected by the Federal Confidentiality of Alcohol and Drug Abuse Patient Records regulations: The Federal rules restrict any use of the information to criminally investigate or prosecute any alcohol or drug abuse patient.[facility] HospitalIn the event this information is protected by the Federal Confidentiality of Alcohol and Drug Abuse Patient Records regulations: The Federal rules restrict any use of the information to criminally investigate or prosecute any alcohol or drug abuse patient.[facility] HospitalIn the event this information is protected by the Federal Confidentiality of Alcohol and Drug Abuse Patient Records regulations: The Federal rules restrict any use of the information to criminally investigate or prosecute any alcohol or drug abuse patient.[facility] HospitalIn the event this information is protected by the Federal Confidentiality of Alcohol and Drug Abuse Patient Records regulations: The Federal rules restrict any use of the information to criminally investigate or prosecute any alcohol or drug abuse patient.[facility] HospitalIn the event this information is protected by the Federal Confidentiality of Alcohol and Drug Abuse Patient Records regulations: The Federal rules restrict any use of the information to criminally investigate or prosecute any alcohol or drug abuse patient.[facility] HospitalIn the event this information is protected by the Federal Confidentiality of Alcohol and Drug Abuse Patient Records regulations: The Federal rules restrict any use of the information to criminally investigate or prosecute any alcohol or drug abuse patient.[facility] HospitalIn the event this information is protected by the Federal Confidentiality of Alcohol and Drug Abuse Patient Records regulations: The Federal rules restrict any use of the information to criminally investigate or prosecute any alcohol or drug abuse patient.[facility] HospitalIn the event this information is protected by the Federal Confidentiality of Alcohol and Drug Abuse Patient Records regulations: The Federal rules restrict any use of the information to criminally investigate or prosecute any alcohol or drug abuse patient.[facility] HospitalIn the event this information is protected by the Federal Confidentiality of Alcohol and Drug Abuse Patient Records regulations: The Federal rules restrict any use of the information to criminally investigate or prosecute any alcohol or drug abuse patient.[facility] HospitalIn the event this information is protected by the Federal Confidentiality of Alcohol and Drug Abuse Patient Records regulations: The Federal rules restrict any use of the information to criminally investigate or prosecute any alcohol or drug abuse patient.[facility] HospitalIn the event this information is protected by the Federal Confidentiality of Alcohol and Drug Abuse Patient Records regulations: The Federal rules restrict any use of the information to criminally investigate or prosecute any alcohol or drug abuse patient.[facility] HospitalIn the event this information is protected by the Federal Confidentiality of Alcohol and Drug Abuse Patient Records regulations: The Federal rules restrict any use of the information to criminally investigate or prosecute any alcohol or drug abuse patient.[facility] HospitalIn the event this information is protected by the Federal Confidentiality of Alcohol and Drug Abuse Patient Records regulations: The Federal rules restrict any use of the information to criminally investigate or prosecute any alcohol or drug abuse patient.[facility] HospitalIn the event this information is protected by the Federal Confidentiality of Alcohol and Drug Abuse Patient Records regulations: The Federal rules restrict any use of the information to criminally investigate or prosecute any alcohol or drug abuse patient.[facility] HospitalIn the event this information is protected by the Federal Confidentiality of Alcohol and Drug Abuse Patient Records regulations: The Federal rules restrict any use of the information to criminally investigate or prosecute any alcohol or drug abuse patient.[facility] HospitalIn the event this information is protected by the Federal Confidentiality of Alcohol and Drug Abuse Patient Records regulations: The Federal rules restrict any use of the information to criminally investigate or prosecute any alcohol or drug abuse patient.[facility] HospitalIn the event this information is protected by the Federal Confidentiality of Alcohol and Drug Abuse Patient Records regulations: The Federal rules restrict any use of the information to criminally investigate or prosecute any alcohol or drug abuse patient.[facility] HospitalIn the event this information is protected by the Federal Confidentiality of Alcohol and Drug Abuse Patient Records regulations: The Federal rules restrict any use of the information to criminally investigate or prosecute any alcohol or drug abuse patient.[facility] HospitalIn the event this information is protected by the Federal Confidentiality of Alcohol and Drug Abuse Patient Records regulations: The Federal rules restrict any use of the information to criminally investigate or prosecute any alcohol or drug abuse patient.[facility] HospitalIn the event this information is protected by the Federal Confidentiality of Alcohol and Drug Abuse Patient Records regulations: The Federal rules restrict any use of the information to criminally investigate or prosecute any alcohol or drug abuse patient.[facility] HospitalIn the event this information is protected by the Federal Confidentiality of Alcohol and Drug Abuse Patient Records regulations: The Federal rules restrict any use of the information to criminally investigate or prosecute any alcohol or drug abuse patient.[facility] HospitalIn the event this information is protected by the Federal Confidentiality of Alcohol and Drug Abuse Patient Records regulations: The Federal rules restrict any use of the information to criminally investigate or prosecute any alcohol or drug abuse patient.[facility] HospitalIn the event this information is protected by the Federal Confidentiality of Alcohol and Drug Abuse Patient Records regulations: The Federal rules restrict any use of the information to criminally investigate or prosecute any alcohol or drug abuse patient.[facility] HospitalIn the event this information is protected by the Federal Confidentiality of Alcohol and Drug Abuse Patient Records regulations: The Federal rules restrict any use of the information to criminally investigate or prosecute any alcohol or drug abuse patient.[facility] HospitalIn the event this information is protected by the Federal Confidentiality of Alcohol and Drug Abuse Patient Records regulations: The Federal rules restrict any use of the information to criminally investigate or prosecute any alcohol or drug abuse patient.[facility] HospitalIn the event this information is protected by the Federal Confidentiality of Alcohol and Drug Abuse Patient Records regulations: The Federal rules restrict any use of the information to criminally investigate or prosecute any alcohol or drug abuse patient.[facility] HospitalIn the event this information is protected by the Federal Confidentiality of Alcohol and Drug Abuse Patient Records regulations: The Federal rules restrict any use of the information to criminally investigate or prosecute any alcohol or drug abuse patient.[facility] HospitalIn the event this information is protected by the Federal Confidentiality of Alcohol and Drug Abuse Patient Records regulations: The Federal rules restrict any use of the information to criminally investigate or prosecute any alcohol or drug abuse patient.[facility] HospitalIn the event this information is protected by the Federal Confidentiality of Alcohol and Drug Abuse Patient Records regulations: The Federal rules restrict any use of the information to criminally investigate or prosecute any alcohol or drug abuse patient.[facility] HospitalIn the event this information is protected by the Federal Confidentiality of Alcohol and Drug Abuse Patient Records regulations: The Federal rules restrict any use of the information to criminally investigate or prosecute any alcohol or drug abuse patient.[facility] HospitalIn the event this information is protected by the Federal Confidentiality of Alcohol and Drug Abuse Patient Records regulations: The Federal rules restrict any use of the information to criminally investigate or prosecute any alcohol or drug abuse patient.[facility] HospitalIn the event this information is protected by the Federal Confidentiality of Alcohol and Drug Abuse Patient Records regulations: The Federal rules restrict any use of the information to criminally investigate or prosecute any alcohol or drug abuse patient.[facility] HospitalIn the event this information is protected by the Federal Confidentiality of Alcohol and Drug Abuse Patient Records regulations: The Federal rules restrict any use of the information to criminally investigate or prosecute any alcohol or drug abuse patient.[facility] HospitalIn the event this information is protected by the Federal Confidentiality of Alcohol and Drug Abuse Patient Records regulations: The Federal rules restrict any use of the information to criminally investigate or prosecute any alcohol or drug abuse patient.[facility] HospitalIn the event this information is protected by the Federal Confidentiality of Alcohol and Drug Abuse Patient Records regulations: The Federal rules restrict any use of the information to criminally investigate or prosecute any alcohol or drug abuse patient.[facility] HospitalIn the event this information is protected by the Federal Confidentiality of Alcohol and Drug Abuse Patient Records regulations: The Federal rules restrict any use of the information to criminally investigate or prosecute any alcohol or drug abuse patient.[facility] HospitalIn the event this information is protected by the Federal Confidentiality of Alcohol and Drug Abuse Patient Records regulations: The Federal rules restrict any use of the information to criminally investigate or prosecute any alcohol or drug abuse patient.[facility] HospitalIn the event this information is protected by the Federal Confidentiality of Alcohol and Drug Abuse Patient Records regulations: The Federal rules restrict any use of the information to criminally investigate or prosecute any alcohol or drug abuse patient.[facility] HospitalIn the event this information is protected by the Federal Confidentiality of Alcohol and Drug Abuse Patient Records regulations: The Federal rules restrict any use of the information to criminally investigate or prosecute any alcohol or drug abuse patient.[facility] HospitalIn the event this information is protected by the Federal Confidentiality of Alcohol and Drug Abuse Patient Records regulations: The Federal rules restrict any use of the information to criminally investigate or prosecute any alcohol or drug abuse patient.[facility] HospitalIn the event this information is protected by the Federal Confidentiality of Alcohol and Drug Abuse Patient Records regulations: The Federal rules restrict any use of the information to criminally investigate or prosecute any alcohol or drug abuse patient.[facility] HospitalIn the event this information is protected by the Federal Confidentiality of Alcohol and Drug Abuse Patient Records regulations: The Federal rules restrict any use of the information to criminally investigate or prosecute any alcohol or drug abuse patient.[facility] HospitalIn the event this information is protected by the Federal Confidentiality of Alcohol and Drug Abuse Patient Records regulations: The Federal rules restrict any use of the information to criminally investigate or prosecute any alcohol or drug abuse patient.[facility] HospitalIn the event this information is protected by the Federal Confidentiality of Alcohol and Drug Abuse Patient Records regulations: The Federal rules restrict any use of the information to criminally investigate or prosecute any alcohol or drug abuse patient.[facility] HospitalIn the event this information is protected by the Federal Confidentiality of Alcohol and Drug Abuse Patient Records regulations: The Federal rules restrict any use of the information to criminally investigate or prosecute any alcohol or drug abuse patient.[facility] HospitalIn the event this information is protected by the Federal Confidentiality of Alcohol and Drug Abuse Patient Records regulations: The Federal rules restrict any use of the information to criminally investigate or prosecute any alcohol or drug abuse patient.[facility] HospitalIn the event this information is protected by the Federal Confidentiality of Alcohol and Drug Abuse Patient Records regulations: The Federal rules restrict any use of the information to criminally investigate or prosecute any alcohol or drug abuse patient.[facility] HospitalIn the event this information is protected by the Federal Confidentiality of Alcohol and Drug Abuse Patient Records regulations: The Federal rules restrict any use of the information to criminally investigate or prosecute any alcohol or drug abuse patient.[facility] HospitalIn the event this information is protected by the Federal Confidentiality of Alcohol and Drug Abuse Patient Records regulations: The Federal rules restrict any use of the information to criminally investigate or prosecute any alcohol or drug abuse patient.[facility] Reason for Visit (unrecogniz ed section and content) Reason Comments Vaginal Bleeding during intercourse Reason Comments Results Reason Comments Diabetes Reason [...] Reason Onset Date Comments Refill Request 06/11/2023 Reason Comments Appointment Reason Comments Diabetes Follow up Reason Comments Well Woman Reason Comments Patient Question Results Reason Onset Date Comments Insertion Of IUD 09/27/2023 IUD Removal 09/27/2023 Specialty Diagnoses / Procedures Referred By Contac t Referred To Contact [facility] Diagnoses IUD (intrauterine device) in place Encounter for insertion of intrauterine contraceptive device Encounter for removal of intrauterine contraceptive device Procedures REMOVE INTRAUTERINE DEVICE REMOVE INTRAUTERINE DEVICE INSERT INTRAUTERINE DEVICE LEVONORGESTREL IU 52MG 5 YR Tracy Aguillon, WEB CONTENT COORDINATOR.[employer] [address] [place] [address] [facility] [address] [place] [address] Referral ID Status Reason Start Date Expiration Date Visits Requested Visits Authorized [id number] Authorized Auto-Generat ed Referral 09/14/2023 04/24/2024 2 2 Reason Comments Nasal Congestion drainage, headache, fever, cough x last night, covid exposure Reason Comments Pain Bilateral leg pain x 2 weeks. Sensitive to touch, florentino horses Reason Comments Follow Up Bilateral leg and fo ot pain Reason Comments Insurance Authorization Reason Comments New Patient Foot numbness Reason Onset Date Comments Refill Request 02/14/2024 Reason Comments Ingrown Toenail Left great toe, ingr own nail Reason Comments Leg Pain Specialty Diagnoses / Procedures Referred By Contac t Referred To Contact Pain Management Diagnoses Paresthesia of bilateral legs Pain in both lower extremities Procedures CONSULT TO PAIN MGT OFFICE/OUTPATIENT NEW HIGH MDM 60 MINUTES Daphne Gresham, WEB CONTENT COORDINATOR.MAINTENANCE WELDER [address] [place] [address] Referral ID Status Reason Start Date Expiration Date V isits Requested Visits Authorized [id number] Closed PCP Requested Referral 01/31/2024 04/30/2024 1 1 Reason Comments PT Eval Specialty Diagnoses / Procedures Referred By Contac t Referred To Contact [facility] Diagnoses Degeneration of intervertebral disc of lumbar region with discogenic back pain and lower extremity pain Chronic thoracic spine pain Postural kyphosis of thoracic region Procedures CONSULT TO PHYSICAL THERAPY PHYSICAL THERAPY EVALUATION HIGH COMPLEX 45 MINS Humberto Damon MD [address] [facility] [place] [address] [facility] [place] [address] [place] [address] Referral ID Status Reason Start Date Expiration Date Visits Requested Visits Authorized [id number] Authorized Auto-Generat ed Referral 04/25/2023 04/24/2024 99 99 Reason Onset Date Comments Refill Request 03/21/2024 Reason Comments Follow Up Reason Comments Follow Up pneumonia Reason Comments type 2 diabetes Specialty Diagnoses / Procedures Referred By Contmiguel a t Referred To Contact Endocrinology Diagnoses Type 2 diabetes mellitus with hyperglycemia, with long-term current use of insulin (HCC) Procedures CONSULT TO ENDOCRINOLOGY OFFICE/OUTPATIENT NEW HIGH MDM 60 MINUTES Lazara Melendez, LAURA.MAINTENANCE WELDER [address] [place] [address] Phone: tel: fax: Referral ID Status Reason Start Date Expiration Date V isits Requested Visits Authorized [id number] Closed PCP Requested Referral 06/12/2024 06/12/2025 1 1 Reason Comments Diabetes Medication follow up Reason Comments letter Reason Comments Abscess Boil Care Teams (unrecognized sec tion and content) Wheel Cleaner Relationship Specialty Start Date End Date Sonia Ortega PA-C [address] [place], [place] [id number] PCP - General Family Practice 06/07/16 Wheel Cleaner Relationship Specialty Start Date End Date Sonia Ortega PA-C [address] [place] [address] PCP - General Family Practice 06/07/16 Wheel Cleaner Relationship Specialty Start Date End Date Sonia Ortega PA-C [address] [place] [address] PCP - General Family Practice 06/07/16 Wheel Cleaner Relationship Specialty Start Date End Date Sonia Ortega PA-C [address] [place] [address] PCP - General Family Practice 06/07/16 Wheel Cleaner Relationship Specialty Start Date End Date Sonia Ortega PA-C [address] [facility] [place] [address] PCP - General Family Practice 06/07/16 Wheel Cleaner Relationship Specialty Start Date End Date Sonia Ortega PA-C [address] [place] [address] PCP - General Family Practice 06/07/16 Wheel Cleaner Relationship Specialty Start Date End Date Sonia Ortega PA-C [address] [place] [address] PCP - General Family Medicine 06/07/16 Wheel Cleaner Relationship Specialty Start Date End Date Sonia Ortega PA-C [address] [place] [address] PCP - General Family Medicine 06/07/16 Wheel Cleaner Relationship Specialty Start Date End Date Sonia Ortega PA-C [address] [place] [address] PCP - General Family Medicine 06/07/16 Wheel Cleaner Relationship Specialty Start Date End Date Sonia Ortega PA-C [address] [place] [address] PCP - General Family Medicine 06/07/16 Wheel Cleaner Relationship Specialty Start Date End Date Sonia Ortega PA-C [address] [place] [address] PCP - General Family Medicine 06/07/16 Team Status: Active Member Role Status Dates Dr. Eldon Hernandez MD Family Provider Active Dr. Eldon Hernandez MD Primary Care Provider Active Team Status: Active Member Role Status Dates Dr. Eldon Hernandez MD Primary Care Provider Active Joel Benitez MD Emergency Provider Active Dr. Cassie Elmore MD Admit Provider, Referring Provider, Other Provider Active Dr. Jakob Wong MD Other Provider Active Dr. Carmine Saul , Attending Provider, Other Provide r Active Dr. Roly Conner MD Other Provider Active Dr. Petros Louis MD Other Provider Active Audra Mcintosh ANTIQUE FURNITURE RESTORER, ANTIQUE FURNITURE RESTORER-C Other Provider Active Team Status: Active Member Role Status Dates Dr. Eldon Hernandez MD Primary Care Provider Active Joel Benitez MD Emergency Provider Active Dr. Cassie Elmore MD Admit Provider, Attending Provider, Other Provider Active Dr. Jakob Wong MD Other Provider Active Dr. Carmine Saul , Other Provider Active Dr. Roly Conner MD Other Provider Active Dr. Petros Louis MD Other Provider Active Audra Mcintosh ANTIQUE FURNITURE RESTORER, ANTIQUE FURNITURE RESTORER-C Other Provider Active Team Status: Active Member Role Status Dates Dr. Eldon Hernandez MD Primary Care Provider Active Joel Benitez MD Emergency Provider Active Dr. Cassie Elmore MD Admit Provider, Attending Provider, Other Provider Active Dr. Jakob Wong MD Other Provider Active Dr. Carmine Saul , Other Provider Active Dr. Roly Conner MD Other Provider Active Dr. Petros Louis MD Other Provider Active Audra Mcintosh ANTIQUE FURNITURE RESTORER, ANTIQUE FURNITURE RESTORER-C Other Provider Active Dr. Gen Zarate MD Other Provider Active Team Status: Active Member Role Status Dates Dr. Eldon Hernandez MD Primary Care Provider Active Joel Benitez MD Emergency Provider Active Dr. Cassie Elmore MD Admit Provider, Referring Provider, Other Provider Active Dr. Jakob Wong MD Other Provider Active Dr. Carmine Saul , Other Provider Active Dr. Roly Conner MD Attending Provider, Other Pro vider Active Dr. Petros Louis MD Other Provider Active Audra Mcintosh ANTIQUE FURNITURE RESTORER, ANTIQUE FURNITURE RESTORER-C Other Provider Active Dr. Gen Zarate MD Other Provider Active Team Status: Active Member Role Status Dates Dr. Eldon Hernandez MD Primary Care Provider Active Dr. Elvira Mills MD Attending Provider Active Team Status: Active Member Role Status Dates Dr. Eldon Hernandez MD Primary Care Provider Active Joel Benitez MD Emergency Provider Active Dr. Cassie Elmore MD Admit Provider, Attending Provider, Other Provider Active Dr. Gen Zarate MD Other Provider Active Dr. Jakob Wong MD Other Provider Active Dr. Carmine Saul , DO Other Provider Active Dr. Roly Conner MD Other Provider Active Dr. Petros Louis MD Other Provider Active Audra Mcintosh ANTIQUE FURNITURE RESTORER, ANTIQUE FURNITURE RESTORER-C Other Provider Active Team Status: Active Member Role Status Dates Dr. Eldon Hernandez MD Primary Care Provider Active Joel Benitez MD Emergency Provider Active Dr. Cassie Elmore MD Admit Provider, Other Provider Active Dr. Gen Zarate MD Other Provider Active Dr. Jakob Wong MD Other Provider Active Dr. Carmine Saul , Other Provider Active Dr. Roly Conner MD Other Provider Active Dr. Petros Louis MD Other Provider Active Audra Mcintosh ANTIQUE FURNITURE RESTORER, ANTIQUE FURNITURE RESTORER-C Other Provider Active Dr. Thania Dunham , Attending Provider, Other Provide r Active Team Status: Active Member Role Status Dates Dr. Eldon Hernandez MD Primary Care Provider Active Joel Benitez MD Emergency Provider Active Dr. Cassie Elmore MD Admit Provider, Referring Provider, Other Provider Active Dr. Gen Zarate MD Other Provider Active Dr. Jakob Wong MD Attending Provider, Other Provid er Active Dr. Carmine Saul , Other Provider Active Dr. Roly Conner MD Other Provider Active Dr. Petros Louis MD Other Provider Active Audra Mcintosh ANTIQUE FURNITURE RESTORER, ANTIQUE FURNITURE RESTORER-C Other Provider Active Dr. Thania Dunham , Other Provider Active Team Status: Inactive Member Role Status Dates Dr. Eldon Hernandez MD Primary Care Provider, Referring Provider Active Dr. Carmine Saul , Attending Provider Active Team Status: Active Member Role Status Dates Dr. Eldon Hernandez MD Primary Care Provider Active Dr. Carmine Saul , Other Provider Active Dr. Jakob Wong MD Attending Provider Active Team Status: Inactive Member Role Status Dates Dr. Eldon Hernandez MD Primary Care Provider Active Dr. Mehran Burgos , Attending Provider, Emergency Pr ovider Active Team Status: Inactive Member Role Status Dates Dr. Eldon Hernandez MD Primary Care Provider Active Joel Benitez MD Emergency Provider Active Dr. Cassie Elmore MD Admit Provider, Other Provider Active Dr. Gen Zarate MD Other Provider Active Dr. Jakob Wong MD Other Provider Active Dr. Carmine Saul , DO Other Provider Active Dr. Roly Conner MD Other Provider Active Dr. Petros Louis MD Other Provider Active Audra Mcintosh ANTIQUE FURNITURE RESTORER, ANTIQUE FURNITURE RESTORER-C Other Provider Active Dr. Thania Dunham , DO Attending Provider Active Team Status: Inactive Member Role Status Dates Dr. Eldon Hernandez MD Primary Care Provider Active Dr. Jakob Verma , Attending Provider, Emergency Provide r Active Team Status: Inactive Member Role Status Dates Dr. Eldon Hernandez MD Primary Care Provider Active Dr. Carmine Saul , DO Attending Provider Active Wheel Cleaner Relationship Specialty Start Date End Date Sonia Ortega PA-C [address] [facility] [place] [address] PCP - General Family Medicine 06/07/16 Wheel Cleaner Relationship Specialty Start Date End Date Sonia Ortega PA-C [address] [facility] [place] [address] PCP - General Family Medicine 06/07/16 Wheel Cleaner Relationship Specialty Start Date End Date Sonia Ortega PA-C [address] [facility] [place] [address] PCP - General Family Medicine 06/07/16 Wheel Cleaner Relationship Specialty Start Date End Date Sonia Ortega PA-C [address] [facility] [place] [address] PCP - General Family Medicine 06/07/16 Wheel Cleaner Relationship Specialty Start Date End Date Sonia Ortega PA-C [address] [facility] [place] [address] PCP - General Family Medicine 06/07/16 Wheel Cleaner Relationship Specialty Start Date End Date Sonia Ortega PA-C [address] [facility] [place] [address] PCP - General Family Medicine 06/07/16 Wheel Cleaner Relationship Specialty Start Date End Date Sonia Ortega PA-C [address] [place] [address] PCP - General Family Medicine 06/07/16 Wheel Cleaner Relationship Specialty Start Date End Date Sonia Ortega PA-C [address] [place] [address] PCP - General Family Medicine 06/07/16 Team Status: Inactive Member Role Status Dates Dr. Eldon Hernandez MD Primary Care Provider, Referring Provider Active Audra Mcintosh ANTIQUE FURNITURE RESTORER, ANTIQUE FURNITURE RESTORER-C Attending Provider Active Team Status: Inactive Member Role Status Dates Dr. Eldon Hernandez MD Primary Care Provider Active Dr. Flavio Kunz DO Emergency Provider Active Team Status: Inactive Member Role Status Dates Dr. Eldon Hernandez MD Primary Care Provider Active Dr. Flavio Kunz DO Attending Provider, Emergency P rokaye Active Team Status: Inactive Member Role Status Dates Dr. Eldon Hernandez MD Primary Care Provider Active Dr. Isadora Hughes MD Emergency Provider Active Wheel Cleaner Relationship Specialty Start Date End Date Sonia Ortega PA-C [address] [place], [place] [address] PCP - General Family Medicine 06/07/16 Team Status: Inactive Member Role Status Dates Dr. Eldon Hernandez MD Primary Care Provider Active Dr. Isadora Hughes MD Attending Provider, Emergency Provider Active Team Status: Inactive Member Role Status Dates Dr. Eldon Hernandez MD Primary Care Provider Active Dr. Long Smith DO Emergency Provider Active Team Status: Inactive Member Role Status Dates Dr. Eldon Hernandez MD Primary Care Provider Active Dr. Long Smith DO Attending Provider, Emergency Pro vider Active Team Status: Inactive Member Role Status Dates Dr. Eldon Hernandez MD Primary Care Provider Active Audra Mcintosh ANTIQUE FURNITURE RESTORER, ANTIQUE FURNITURE RESTORER-C Attending Provider, Referrin g Provider Active Team Status: Inactive Member Role Status Dates Dr. Eldon Hernandez MD Primary Care Provider Active Dr. Guerrero Damon MD Emergency Provider Active Wheel Cleaner Relationship Specialty Start Date End Date Sonia Ortega PA-C [address] [place], [place] [address] PCP - General Family Medicine 06/07/16 Team Status: Inactive Member Role Status Dates Dr. Eldon Hernandez MD Primary Care Provider Active Dr. Guerrero Damon MD Attending Provider, Emergency Pro vider Active Team Status: Inactive Member Role Status Dates Dr. Eldon Hernandez MD Primary Care Provider Active Dr. Hari Finn MD Emergency Provider Active Wheel Cleaner Relationship Specialty Start Date End Date Sonia Ortega PA-C [address] [facility] [place] [address] PCP - General Family Medicine 06/07/16 Wheel Cleaner Relationship Specialty Start Date End Date Sonia Ortega PA-C [address] [facility] [place] [address] PCP - General Family Medicine 06/07/16 Wheel Cleaner Relationship Specialty Start Date End Date Sonia Ortega PA-C [address] [facility] [place] [address] PCP - General Family Medicine 06/07/16 Wheel Cleaner Relationship Specialty Start Date End Date Sonia Ortega PA-C [address] [facility] [place] [address] PCP - General Family Medicine 06/07/16 Wheel Cleaner Relationship Specialty Start Date End Date Sonia Ortega PA-C [address] [facility] [place] [address] PCP - General Family Medicine 06/07/16 Wheel Cleaner Relationship Specialty Start Date End Date Sonia Ortega PA-C [address] [facility] [place] [address] PCP - General Family Medicine 06/07/16 Wheel Cleaner Relationship Specialty Start Date End Date Sonia Ortega PA-C [address] [facility] [place] [address] PCP - General Family Medicine 06/07/16 Wheel Cleaner Relationship Specialty Start Date End Date Sonia Ortega PA-C [address] [facility] [place] [address] PCP - General Family Medicine 06/07/16 Wheel Cleaner Relationship Specialty Start Date End Date Sonia Ortega PA-C [address] [facility] [place] [address] PCP - General Family Medicine 06/07/16 Wheel Cleaner Relationship Specialty Start Date End Date Sonia Ortega PA-C [address] [facility] [place] [address] PCP - General Family Medicine 06/07/16 Wheel Cleaner Relationship Specialty Start Date End Date Sonia Ortega PA-C [address] [facility] [place] [address] PCP - General Family Medicine 06/07/16 Wheel Cleaner Relationship Specialty Start Date End Date Sonia Ortega PA-C [address] [facility] [place] [address] PCP - General Family Medicine 06/07/16 Wheel Cleaner Relationship Specialty Start Date End Date Sonia Ortega PA-C [address] [facility] [place] [address] PCP - General Family Medicine 06/07/16 Wheel Cleaner Relationship Specialty Start Date End Date Sonia Ortega PA-C [address] [facility] [place] [address] PCP - General Family Medicine 06/07/16 Wheel Cleaner Relationship Specialty Start Date End Date Sonia Ortega PA-C [address] [facility] [place] [address] PCP - General Family Medicine 06/07/16 Wheel Cleaner Relationship Specialty Start Date End Date Sonia Ortega PA-C [address] [place] [address] PCP - General Family Medicine 06/07/16 Wheel Cleaner Relationship Specialty Start Date End Date Sonia Ortega PA-C [address] [place] [address] PCP - General Family Medicine 06/07/16 Wheel Cleaner Relationship Specialty Start Date End Date Sonia Ortega PA-C [address] [place] [address] PCP - General Family Medicine 06/07/16 Wheel Cleaner Relationship Specialty Start Date End Date Sonia Ortega PA-C [address] [place] [address] PCP - General Family Medicine 06/07/16 Wheel Cleaner Relationship Specialty Start Date End Date Sonia Ortega PA-C [address] [facility] [place] [address] PCP - General Family Medicine 06/07/16 Wheel Cleaner Relationship Specialty Start Date End Date Sonia Ortega PA-C [address] [facility] [place] [address] PCP - General Family Medicine 06/07/16 Wheel Cleaner Relationship Specialty Start Date End Date Sonia Ortega PA-C [address] [facility] [place] [address] PCP - General Family Medicine 06/07/16 Wheel 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 Relationship Specialty Start Date End Date Lazara Melendez, WEB CONTENT COORDINATOR.MAINTENANCE WELDER [address] [facility] [place] [address] PCP - General Family Medicine 03/10/24 Wheel 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 Relationship Specialty Start Date End Date Lazara Melendez, WEB CONTENT COORDINATOR.MAINTENANCE WELDER [address] [facility] [place] [address] PCP - General Family Medicine 03/10/24 Wheel 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 Relationship Specialty Start Date End Date Lazara Melendez, WEB CONTENT COORDINATOR.MAINTENANCE WELDER [address] [place] [address] PCP - General Family Medicine 03/10/24 Wheel 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 Relationship Specialty Start Date End Date Lazara Melendez, WEB CONTENT COORDINATOR.MAINTENANCE WELDER [address] [facility] [place] [address] PCP - General Family Medicine 03/10/24 Wheel 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 Relationship Specialty Start Date End Date Lazara Melendez, WEB CONTENT COORDINATOR.MAINTENANCE WELDER [address] [facility] [place] [address] PCP - General Family Medicine 03/10/24 Wheel 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 Relationship Specialty Start Date End Date Lazara Melendez, WEB CONTENT COORDINATOR.MAINTENANCE WELDER [address] [facility] [place] [address] PCP - General Family Medicine 03/10/24 Wheel Cleaner Relationship Specialty Start Date End Date Lazara Melendez, WEB CONTENT COORDINATOR.MAINTENANCE WELDER [address] [facility] [place] [address] PCP - General Family Medicine 03/10/24 Wheel 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 Relationship Specialty Start Date End Date Lazara Melendez WEB CONTENT COORDINATOR.MAINTENANCE WELDER [address] [facility] [place] [address] PCP - General Family Medicine 03/10/24 Wheel 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 Relationship Specialty Start Date End Date Lazara Melendez WEB CONTENT COORDINATOR.MAINTENANCE WELDER [address] [facility] [place] [address] PCP - General Family Medicine 03/10/24 Wheel Cleaner Relationship Specialty Start Date End Date Lazara Melendez WEB CONTENT COORDINATOR.MAINTENANCE WELDER [address] [facility] [place] [address] PCP - General Family Medicine 03/10/24 Wheel 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 Relationship Specialty Start Date End Date Lazara Melendez WEB CONTENT COORDINATOR.MAINTENANCE WELDER [address] [facility] [place] [address] PCP - General Family Medicine 03/10/24 Goals (unrecognized section and content) Goals may be documented in a n alternate sectionGoals may be documented in an alternate sectionGoals may be documented in an alternate sectionGoals may be documented in an alternate sectionGoals may be documented in an alternate sectionGoals may be documented in an alternate sectionGoals may be documented in an alternate sectionGoals may be documented in an alternate sectionGoals may be documented in an alternate sectionGoals may be documented in an alternate sectionGoals may be documented in an alternate section No data available for this section No data available for this section FOR RECORDS PERTAINING TO PATIENTS WHO ARE [...] BE BASED ON THE PRIMARY CLINICAL RECORDS. [facility]. provides no warranty or guarantee of the accuracy or completeness of information in this document.
--- NOTE | 2025-04-19 01:05 | EDS_ITS ---
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 [facility] Medical History Hypothyroidism Kidney stones CPAP (continuous positive airway pressure) dependence Sleep apnea Smoker DVT (deep venous thrombosis) Physical exam, pre-employment Acute respiratory failure with hypoxemia Community acquired pneumonia due to methicillin resistant Staphylococcus aureus (MRSA) Chest pain Diabetes HTN (hypertension) Lupus Leaky heart valve Cellulitis of foot, right Anxiety Home Medications ?Medication ?Instructions ?Recorded ?Last Taken ?Type insulin glargine 100 unit/mL (3 30 unit SQ QHS BLOOD S UGARS 04/29/17 10/05/23 History mL) subcutaneous pen empagliflozin 10 mg tablet 10 mg PO DAILY BLOOD SUGARS 07/07/22 10/05/23 History (Jardiance) linagliptin 5 mg tablet (Tradjenta) 5 mg PO DAILY BLOO D SUGARS 10/15/22 10/05/23 History albuterol sulfate 90 mcg/actuation 2 puff inhalation Q 4H PRN 07/26/23 Unknown Rx aerosol inhaler (Ventolin HFA) SHORTNESS OF BREATH/WHE EZING #18 grams tiotropium 2.5 mcg-olodaterol 2.5 2 inh inhalation SELENA LY COPD #3 ea 07/26/23 10/05/23 Rx mcg/actuation mist for inhalation (Stiolto Respimat) atorvastatin 40 mg tablet 40 mg PO DAILY CHOLESTEROL # 30 tabs 09/29/23 10/05/23 Rx clopidogrel 75 mg tablet (Plavix) 75 mg PO DAILY BLOOD THINNER #30 09/29/23 10/05/23 Rx tabs metoprolol succinate 25 mg 25 mg PO DAILY BLOOD PRESSU RE 09/29/23 10/05/23 History tablet,extended release 24 hr cilostazol 100 mg tablet 100 mg PO BID #60 tabs 10/05 Unknown Rx nitroglycerin 2 % transdermal 0.5 inch transdermal BID PRN pain 10/06/23 Unknown Rx ointment #60 grams ciprofloxacin HCl 0.3 % eye drops 2 drp RIGHT EYE 4X/D AY 7 days #10 10/25/23 Unknown Rx mL hydrocodone-acetaminophen 5-325mg 1 tab PO Q6H PRN PRN Pain 3 days 01/07/24 Unknown Rx 5mg-325mg #10 TABLETS pregabalin 25 mg capsule (Lyrica) 25 mg PO TID #30 cap s 01/07/24 Unknown Rx amoxicillin 875 mg-potassium 875 mg PO Q12H #20 TABLET S 03/11/24 Unknown Rx clavulanate 125 mg tablet ipratropium 0.5 mg-albuterol 3 mg 3 ml inhalation Q4H PRN SHORTNESS 06/01/24 Unknown Rx (2.5 mg base)/3 mL nebulization OF BREATH/WHEEZING #18 0 mL soln Allergy/AdvReac Type Severity Reaction Status Date / Time cetirizine HCl (From Zyrtec) Allergy Hives Verified 04/19/25 00:40 prochlorperazine edisylate Allergy Hives Verified 04/19/25 00:40 (From Compazine) prochlorperazine maleate Allergy Hives Verified 04/19/25 00:40 (From Compazine) oxycodone (From Percocet) AdvReac Nausea/Vom/ Verified 04/19/25 00:40 Diarrhea Family History Mother Diabetes Hypertension Father Diabetes Surgical History History of cholecystectomy S/P laparoscopic cholecystectomy Social History Smoking Status: Current every day smoker tobacco type: cigarettes alcohol intake: never ROS ROS ED ROS Narrative Pertinent Positives: Cough Pertinent Negatives: No current fevers or chills nausea vomiting diarrhea or myalgias The remainder of review of systems negative unless otherwise stated in the HPI above. Systems reviewed including constitutional, psychiatric, cardiovascular, respiratory, integument, HENT, gastrointestinal. EXAM Physical Exam Narrative Exam Narrative: Patient is afebrile hemodynamically stable does not appear toxic or in distress she ambulated in the department without issue. Normal heart and lung sounds moves all extremities appropriately intact and equal MSPs no lower extremity edema or calf tenderness. Const Vital Signs: 04/19/25 00:35 04/19/25 00:38 Temperature 98 F 98 F Temperature Source Oral Oral Pulse Rate 81 60 Respiratory Rate 20 H 16 Blood Pressure 178/91 H 147/80 H Blood Pressure Mean 120 102 Pulse Ox 94 98 Oxygen Delivery Method Room Air Room Air MDM MDM MDM Narrative Medical decision making narrative: Nursing notes, triage notes, available previous documentation, and vital signs were reviewed. Any discrepancies noted were addressed. Differential Diagnoses: Postviral cough she states that she will have posttussive emesis but not emesis on its own Interventions: Viscous lidocaine Previous Documentation Reviewed: None available or applicable at this time. ED Course: Patient presenting with persistent cough I did offer chest x-ray but she declined stated that she has to work in the morning she would just like the viscous lidocaine treatment and discharge I think that this is fair given that her lungs are otherwise clear she is hemodynamically stable does not appear toxic or in distress so she will be given return precautions follow-up recommendations she is stable for discharge home. This note was made utilizing voice recognition software. All attempts were made to correct spelling or other errors prior to note completion. However, due to the fast-paced nature of emergency medicine, some errors may still be present. Discharge Plan Triage Chief Complaint: Cold Sx ED Provider: Daniel You Dx/Rx/DC Orders Clinical Impression: Cough Instructions: Cough Prescriptions: No Action Jardiance 10 mg tablet 10 mg PO DAILY Tradjenta 5 mg tablet 5 mg PO DAILY albuterol sulfate [Ventolin HFA] 90 mcg/actuation HFA aerosol inhaler 2 puff inhalation Q4H PRN (Reason: SHORTNESS OF BREATH/WHEEZING ) Qty: 18 6RF Stiolto Respimat 2.5-2.5 mcg/actuation mist 2 inh inhalation DAILY Qty: 3 3RF insulin glargine 100 UNIT/ML insulin pen 30 unit SQ QHS metoprolol succinate 25 mg tablet extended release 24 hr 25 mg PO DAILY clopidogrel [Plavix] 75 mg tablet 75 mg PO DAILY Qty: 30 0RF atorvastatin 40 mg tablet 40 mg PO DAILY Qty: 30 0RF ciprofloxacin HCl 0.3 % drops 2 drp RIGHT EYE 4X/DAY 7 Days Qty: 10 0RF hydrocodone-acetaminophen 5-325 mg tablet 1 tab PO Q6H PRN PRN (Reason: Pain) 3 Days Qty: 10 0RF pregabalin [Lyrica] 25 mg capsule 25 mg PO TID Qty: 30 0RF amoxicillin-pot clavulanate 875-125 mg tablet 875 mg PO Q12H Qty: 20 0RF cilostazol 100 mg tablet 100 mg PO BID Qty: 60 0RF nitroglycerin 2 % ointment 0.5 inch transdermal BID PRN (Reason: pain) Qty: 60 0RF Rx Instructions: administer 2 doses/day (approx. 6 hrs apart); remove for 10-12 hrs per 24 hours ipratropium-albuterol 0.5 mg-3 mg(2.5 mg base)/3 mL solution for nebulization 3 ml inhalation Q4H PRN (Reason: SHORTNESS OF BREATH/WHEEZING) Qty: 180 3RF Primary Care Provider: Eldon Hernandez Referrals: Eldon Hernandez MD [Primary Care Provider, Medical] Activity Restrictions/Additional Instructions: Please follow-up with your doctor you can return should you have any worsening symptoms Print Language: Urdu Disposition Disposition: Home, Self Care
[2025-04-19 01:09] VITALS: BP 110/53; PULSE 79; RESP 18; TEMP 36.6; O2SAT 97
== END 2025-04-19 01:13 | disposition home or self-care (01) ==
PROVIDERS: Emergency Provider Specialist/Technologist Athletic Trainer; PCP Family Medicine; Visit Provider Specialist/Technologist Athletic Trainer
DX: R05.9 Cough, unspecified (principal); E11.9 Type 2 diabetes mellitus without complications; Z79.4 Long term (current) use of insulin; I10 Essential (primary) hypertension; G47.30 Sleep apnea, unspecified; F17.210 Nicotine dependence, cigarettes, uncomplicated; Z79.02 Long term (current) use of antithrombotics/antiplatelets; Z86.718 Personal history of other venous thrombosis and embolism; Z79.899 Other long term (current) drug therapy
CPT/HCPCS: 99282